=== PATIENT | female | born 1965 | race Caucasian/White ===

== ENCOUNTER → 2016-09-19 | Outpatient (CLI) | payer BC ==
[~2016-09-19] MED LIST: ACHD5005 PO; ACHYD1T PO; ALBU2.5V4 IH; ASP81CT PO; CALC-823 PO; EST.1TD TOP; ESTR0.5T PO; ESTR42.52 VG; GEMF600T3 PO; HYDR-3731 PO; HYDR-3812 PO; HYOS0.1283 SL; IBP800T PO; KETO10TA PO; LEVO100T7 PO; LOPE2CAP PO; LORA0.5T PO; LVT.025T PO; NTR.4SL SL; ONDA4TAB8 PO; PANT40TA2 PO; SERT50TA9 PO; VENL75CA PO
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
== END ==
LOC: RAD 13:00
PROVIDERS: ATTEND Nurse Practitioner Community Health
DX: M54.2 Cervicalgia (principal); M47.812 Spondylosis without myelopathy or radiculopathy, cervical region
CPT/HCPCS: 72141

== ENCOUNTER → 2016-10-14 | Outpatient (CLI) | payer BC ==
--- NOTE | 2016-10-15 13:50 | Diagnostic Imaging Report ---
Bilateral screening mammogram The current study was also evaluated with a Computer Aided Detection (CAD) system. INDICATION: Screening. No current complaints stated on the questionnaire. COMPARISON: 01/25/14. FINDINGS: The breasts are composed of scattered fibroglandular densities. There are occasional benign-appearing calcifications. Bilateral breast nodules with circumscribed margins more numerous in the right breast with stable appearance from prior exams are likely related to intramammary lymph nodes. Allowing for technique and positional differences, no suspicious change is seen. IMPRESSION: No significant change. ACR BI-RADS Category 2: Benign findings. Result letter will be mailed to the patient. Note: At least 10% of breast cancer is not imaged by mammography. Dictated by: Dictated on workstation # [id number]
== END ==
LOC: RAD 14:18
PROVIDERS: ATTEND Obstetrics & Gynecology
DX: Z12.31 Encounter for screening mammogram for malignant neoplasm of breast (principal)
CPT/HCPCS: 77067

== ENCOUNTER 2017-02-17 20:24 | Emergency (ER) | payer BC ==
[~2017-02-17] VITALS: Ht 160 cm; Wt 67.1 kg
--- OUTSIDE RECORDS SUMMARY | 2017-02-17 20:30 | XMS REPORT ---
Author Author CEDRICK BARCENAS [facility] eClinicalWorks Address Unknown Phone Unavailable Care Team Providers Care Certified Physician'S Assistant Name Role Phone CEDRICK BARCENAS CP Unavailable Allergies No Known Allergies Problems Problem Type Condition Code Onset Dates Condition Status Assessment Chronic pain syndrome G89.4 Active Problem Fall from other slipping, tripping, or stumbling E885.9 Active Problem Head injury, unspecified 959.01 Active Problem Injury, other and unspecified, other specified sites, including multiple 959.8 Active Problem Other specified cardiac dysrhythmias 427.89 Active Problem Injury, other and unspecified, shoulder and upper arm 959.2 Active Problem Elevated blood pressure reading without diagnosis of hypertension 796.[address] of occurrence, public building E849.6 Active Problem Other abnormal glucose 790.29 Active Problem Migraine, unspecified without mention of intractable migraine without mention of status migrainosus 346.90 Active Problem Unspecified myalgia and myositis 729.1 Active Problem Depression, unspecified depression type F32.9 Active Problem Chronic pain syndrome G89.4 Active Problem Family history of diabetes mellitus V18.0 Active Problem Unspecified hypothyroidism 244.9 Active Problem Hypothyroidism, unspecified E03.9 Active Problem Tension headache 307.81 Active Problem Pain in joint, ankle and foot 719.47 Active Problem Personal history of tobacco use, presenting hazards to health V15.82 Active Problem jail 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.891 Active Problem Hypoxemia 799.02 Active Problem Palpitations 785.1 Active Problem Chest pain, unspecified 786.50 Active Problem Acute gastritis without mention of hemorrhage 535.00 Active Problem Foot and toe(s), superficial foreign body (splinter), without major open wound and without mention of infection 917.6 Active Problem Acute pharyngitis 462 Active Problem Leukocytosis, unspecified 288.60 Active Problem Pneumonia, organism unspecified 486 Active Problem Generalized hyperhidrosis 780.8 Active Medications Medication Code System Code Instructions Start Date End Date Status Dosage Hydrocodone-Acetaminophen NDC [address]-67 10-325 MG Orally 3 times a day August 03, 2014 1 tablet as needed Results No Known Results Summary Purpose eClinicalWorks Submission
--- OUTSIDE RECORDS SUMMARY | 2017-02-17 20:30 | XMS REPORT ---
Author MARBIN Snow [facility] eClinicalWorks Address Unknown Phone Unavailable Care Team Providers Care Machine Cloth Trimmer Name Role Phone MARBIN CARY CP Unavailable Allergies No Known Allergies Problems Problem Type Condition Code Onset Dates Condition Status Problem Acute pharyngitis 462 Active Problem Other specified cardiac dysrhythmias 427.89 Active Problem Leukocytosis, unspecified 288.60 Active Problem Pain in joint, ankle and foot 719.47 Active Problem Injury, other and unspecified, shoulder and upper arm 959.2 Active Problem Personal history of tobacco use, presenting hazards to health V15.82 Active Problem Injury, other and unspecified, other specified sites, including multiple 959.8 Active Problem Head injury, unspecified 959.01 Active Problem Hypoxemia 799.02 Active Problem Other abnormal glucose 790.29 Active Problem Elevated blood pressure reading without diagnosis of hypertension 796.2 Active Problem Migraine, unspecified without mention of intractable migraine without mention of status migrainosus 346.90 Active Problem Unspecified myalgia and myositis 729.1 Active Problem Unspecified hypothyroidism 244.9 Active Problem Family history of diabetes mellitus V18.[address] of occurrence, public building E849.6 Active Problem Tension headache 307.81 Active Problem Palpitations 785.1 Active Problem Chest pain, unspecified 786.50 Active Problem Acute gastritis without mention of hemorrhage 535.00 Active Problem Pneumonia, organism unspecified 486 Active Problem Fall from other slipping, tripping, or stumbling E885.9 Active Problem Foot and toe(s), superficial foreign body (splinter), without major open wound and without mention of infection 917.6 Active Problem Generalized hyperhidrosis 780.8 Active Medications No Known Medications Results No Known Results Summary Purpose eClinicalWorks Submission
--- OUTSIDE RECORDS SUMMARY | 2017-02-17 20:30 | XMS REPORT ---
Author Author CEDRICK BARCENAS [facility] eClinicalWorks Address Unknown Phone Unavailable Care Team Providers Care Motor Racer Name Role Phone CEDRICK BARCENAS CP Unavailable Allergies, Adverse Reactions, Alerts Substance Reaction Event Type Glucophage 1,000 Mg Tablet making pt feel funny Non Drug Allergy Problems Problem Type Condition Code Onset Dates Condition Status Problem Pneumonia, organism unspecified 486 Active Assessment Pneumonia, organism unspecified, unspecified laterality, unspecified part of lung J18.9 Active Problem Generalized hyperhidrosis 780.8 Active Problem Fall from other slipping, tripping, or stumbling E885.9 Active Problem Acute pharyngitis 462 Active Problem Other specified cardiac dysrhythmias 427.89 Active Problem Leukocytosis, unspecified 288.60 Active Problem Pain in joint, ankle and foot 719.47 Active Problem Personal history of tobacco use, presenting hazards to health V15.82 Active Problem Injury, other and unspecified, shoulder and upper arm 959.2 Active Problem Injury, other and unspecified, other specified sites, including multiple 959.8 Active Problem Hypoxemia 799.02 Active Problem Head injury, unspecified 959.01 Active Problem Other abnormal glucose 790.29 Active [...] and without mention of infection 917.6 Active Medications Medication Code System Code Instructions Start Date End Date Status Dosage Promethazine-Codeine [facility] [address]-47 6.25-10 MG/5ML Orally every 6 hrs for cough May 03, 2015 5 - 10 ml as needed Effexor XR [facility] 73402547423 75 MG Orally Once a day 1 capsule with food PredniSONE [facility] [address]-27 20 MG Orally Once a day May 09, 2015 May 14, 2015 1 Oxygen ND 0 not defined Albuterol Sulfate [facility] [address]-91 (2.5 MG/3ML) 0.083% Inhalation 4 times a day May 03, 2015 3 ml Levaquin [facility] [address]-55 750 MG Orally Once a day May 03, 2015 May 13, 2015 1 tablet Hydrocodone-Acetaminophen [facility] [address]-38 10-325 MG August 03, 2014 1 tablet by Oral route every 8 hours PRN Levothyroxine Sodium [facility] [address]-48 100 MCG Orally Once a day December 11, 2014 1 tablet Procedures Procedure Coding System Code Date Office Visit, Est Pt., Level 3 CPT-4 02583 May 09, 2015 CHEST X-RAY CPT-4 32004 May 09, 2015 MEASURE BLOOD OXYGEN LEVEL CPT-4 11753 May 09, 2015 Vital Signs Date/Time: May 09, 2015 Temperature 98.1 F Weight 163.7 lbs Height 63 in Oximetry 90 % Blood Pressure Diastolic 82 mmHg Blood Pressure Systolic 122 mmHg Cardiac Monitoring Heart Rate 92 bpm BMI 28.99 Index Results No Known Results Summary Purpose eClinicalWorks Submission
--- OUTSIDE RECORDS SUMMARY | 2017-02-17 20:30 | XMS REPORT ---
Author Author CEDRICK BARCENAS Organization eClinicalWorks Address Unknown Phone Unavailable Care Team Providers Care Hydrometer Finisher Name Role Phone CEDRICK BARCENAS CP Unavailable [...]
--- OUTSIDE RECORDS SUMMARY | 2017-02-17 20:30 | XMS REPORT ---
Author Author CEDRICK BARCENAS [facility] eClinicalWorks Address Unknown Phone Unavailable Care Team Providers Care Behavioral Services Tech Name Role Phone CEDRICK BARCENAS CP Unavailable [...] presenting hazards to health V15.82 Active Problem long-term 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.891 Active [...] Date End Date Status Dosage Hydrocodone-Acetaminophen NDC [address]-62 10-325 MG Orally 3 times a day August 03, 2014 1 tablet as needed Results No Known Results Summary Purpose eClinicalWorks Submission
--- OUTSIDE RECORDS SUMMARY | 2017-02-17 20:30 | XMS REPORT ---
Author Author CEDRICK BARCENAS [facility] eClinicalWorks Address Unknown Phone Unavailable Care Team Providers Care Game Artist Name Role Phone CEDRICK BARCENAS CP Unavailable Allergies, Adverse Reactions, Alerts Substance Reaction Event Type Glucophage 1,000 Mg Tablet making pt feel funny Non Drug Allergy Problems Problem Type Condition Code Onset Dates Condition Status Assessment Trigger point M79.2 Active Problem Fall from other slipping, tripping, or stumbling E885.9 Active Problem Acute pharyngitis 462 Active Problem Head injury, unspecified 959.01 Active Problem Leukocytosis, unspecified 288.60 Active Problem Injury, other and unspecified, other specified sites, including multiple 959.8 Active Problem Other specified cardiac dysrhythmias 427.89 Active Problem Other abnormal glucose 790.29 Active Problem Elevated blood pressure reading without diagnosis of hypertension 796.2 Active Problem intermediate project manager 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.891 Active Problem Hypoxemia 799.02 Active Problem Tension headache 307.[address] of occurrence, public building E849.6 Active Problem Chronic pain syndrome G89.4 Active Problem Injury, other and unspecified, shoulder and upper arm 959.2 Active Problem Migraine, unspecified without mention of intractable migraine without mention of status migrainosus 346.90 Active Problem Unspecified myalgia and myositis 729.1 Active Problem Pain in joint, ankle and foot 719.47 Active Problem Personal history of tobacco use, presenting hazards to health V15.82 Active Problem Acute gastritis without mention of hemorrhage 535.00 Active Problem Foot and toe(s), superficial foreign body (splinter), without major open wound and without mention of infection 917.6 Active Problem Unspecified hypothyroidism 244.9 Active Problem Family history of diabetes mellitus V18.0 Active Problem Pneumonia, organism unspecified 486 Active Problem Generalized hyperhidrosis 780.8 Active Problem Palpitations 785.1 Active Problem Chest pain, unspecified 786.50 Active Medications Medication Code System Code Instructions Start Date End Date Status Dosage Cyclobenzaprine HCl NDC [address]-34 10 mg Orally at hs X 1 week then 2 at hs X 1 week then 3 tabs at hs September 17, 2015 1 tablet Effexor XR [facility] 06941617954 75 MG Orally Once a day 1 capsule with food Oxygen NDC 0 not defined Levothyroxine Sodium [facility] 07399398783 100 MCG Orally Once a day 1 tablet Albuterol Sulfate [facility] [address]-61 (2.5 MG/3ML) 0.083% Inhalation 4 times a day May 03, 2015 3 ml Hydrocodone-Acetaminophen [facility] [address]-88 10-325 MG Orally 3 times a day August 03, 2014 1 tablet as needed Procedures Procedure Coding System Code Date Office Visit, Est Pt., Level 3 CPT-4 47721 September 17, 2015 Vital Signs Date/Time: September 17, 2015 Temperature 98.1 F Weight 164.2 lbs Height 63 in BMI 29.08 Index Blood Pressure Diastolic 86 mmHg Blood Pressure Systolic 142 mmHg Cardiac Monitoring Heart Rate 72 bpm Results No Known Results Summary Purpose eClinicalWorks Submission
--- OUTSIDE RECORDS SUMMARY | 2017-02-17 20:31 | XMS REPORT ---
Author Author CEDRICK BARCENAS Organization eClinicalWorks Address Unknown Phone Unavailable Care Team Providers Care Jig Filler Name Role Phone CEDRICK BARCENAS CP Unavailable [...] Instructions Start Date End Date Status Dosage Levothyroxine Sodium [facility] [address]-59 100 MCG Orally Once a day December 11, 2014 1 tablet Results No Known Results Summary Purpose eClinicalWorks Submission
--- OUTSIDE RECORDS SUMMARY | 2017-02-17 20:31 | XMS REPORT ---
Author Author CEDRICK BARCENAS [facility] Address [address] [place] [address] Care Team Providers Care Special Service Representative Name Role Phone CEDRICK BARCENAS Unavailable PROBLEMS Type Condition ICD9-CM Code [id number] Code Onset Dates Condition Status SNOMED Code Problem Anxiety F41.9 Active 67096182 Problem Mixed hyperlipidemia E78.2 Active 065097665 Problem Chronic pain syndrome G89.4 Active 471464019 Problem correction 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.891 Active 902821079 Problem Hypothyroidism, unspecified E03.9 Active 19429465 Problem Depression, unspecified depression type F32.9 Active 37604970 ALLERGIES Unknown Allergies SOCIAL HISTORY No smoking Hx information available PLAN OF CARE VITAL SIGNS MEDICATIONS Unknown Medications RESULTS No Results PROCEDURES No Known procedures IMMUNIZATIONS No Known Immunizations
--- OUTSIDE RECORDS SUMMARY | 2017-02-17 20:31 | XMS REPORT ---
Author EDUARDO Mckeon [facility] eClinicalWorks Address Unknown Phone Unavailable Care Team Providers Care Public Health Advisor Name Role Phone EDUARDO CAMPOS CP Unavailable Allergies No Known Allergies Problems Problem Type Condition Code Onset Dates Condition Status Problem Fall from other slipping, tripping, or [...] presenting hazards to health V15.82 Active Problem intermediate accountant 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.891 Active [...] Start Date End Date Status Dosage Hydrocodone-Acetaminophen [facility] [address]-36 10-325 MG Orally 3 times a day August 03, 2014 1 tablet as needed Results No Known Results Summary Purpose eClinicalWorks Submission
--- OUTSIDE RECORDS SUMMARY | 2017-02-17 20:31 | XMS REPORT ---
Author Author CEDRICK BARCENAS Organization eClinicalWorks Address Unknown Phone Unavailable Care Team Providers Care Transit Mixer Driver Name Role Phone CEDRICK BARCENAS CP Unavailable [...] Start Date End Date Status Dosage Hydrocodone-Acetaminophen [facility] [address]-35 10-325 MG August 03, 2014 1 tablet by Oral route every 8 hours PRN Results No Known Results Summary Purpose eClinicalWorks Submission
--- OUTSIDE RECORDS SUMMARY | 2017-02-17 20:31 | XMS REPORT ---
Author Author CEDRICK BARCENAS [facility] Address [address] [place] [address] Care Team Providers Care Relief Captain Name Role Phone CEDRICK BARCENAS Unavailable PROBLEMS Type Condition ICD9-CM Code [id number] Code Onset Dates Condition Status SNOMED Code Problem Anxiety F41.9 Active 60172486 Problem Mixed hyperlipidemia E78.2 Active 696611106 Problem Chronic pain syndrome G89.4 Active 958823301 Problem skilled nursing 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.891 Active 166670137 Problem Hypothyroidism, unspecified E03.9 Active 71206771 Problem Depression, unspecified depression type F32.9 Active 88575350 ALLERGIES No Known Allergies SOCIAL HISTORY No smoking Hx information available PLAN OF CARE VITAL SIGNS MEDICATIONS Medication Instructions Dosage Frequency Start Date End Date Duration Status Hydrocodone-Acetaminophen 10-325 MG Orally 3 times a day 1 tablet as needed 8h Jun, 28 days Active RESULTS No Results PROCEDURES No Known procedures IMMUNIZATIONS No Known Immunizations
--- OUTSIDE RECORDS SUMMARY | 2017-02-17 20:31 | XMS REPORT ---
Author Author CEDRICK BARCENAS [facility] eClinicalWorks Address Unknown Phone Unavailable Care Team Providers Care Head End Desizing Machine Operator Name Role Phone CEDRICK BARCENAS CP Unavailable [...] presenting hazards to health V15.82 Active Problem long term care administrator 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.891 Active [...] Instructions Start Date End Date Status Dosage Effexor XR [facility] 21181310094 75 MG Orally Once a day 1 capsule with food Results No Known Results Summary Purpose eClinicalWorks Submission
--- OUTSIDE RECORDS SUMMARY | 2017-02-17 20:31 | XMS REPORT ---
Author Author CEDRICK BARCENAS [facility] eClinicalWorks Address Unknown Phone Unavailable Care Team Providers Care Process Trainer Name Role Phone CEDRICK BARCENAS CP Unavailable Allergies, Adverse Reactions, Alerts Substance Reaction Event Type Glucophage 1,000 Mg Tablet making pt feel funny Non Drug Allergy Problems Problem Type Condition Code Onset Dates Condition Status Problem Pneumonia, organism unspecified 486 Active Assessment Epigastric pain R10.13 Active Problem Generalized hyperhidrosis 780.8 Active Problem [...] Instructions Start Date End Date Status Dosage Oxygen NDC 0 not defined Hydrocodone-Acetaminophen NDC [address]-02 10-325 MG August 03, 2014 1 tablet by Oral route every 8 hours PRN Effexor XR [facility] 48454931185 75 MG Orally Once a day 1 capsule with food Levothyroxine Sodium [facility] [address]-66 100 MCG Orally Once a day December 11, 2014 1 tablet Procedures Procedure Coding System Code Date Office Visit, Est Pt., Level 3 CPT-4 52766 Apr 11, 2015 Vital Signs Date/Time: Apr 11, 2015 Temperature 97.7 F Weight 165.6 lbs Height 63 in BMI 29.33 Index Blood Pressure Diastolic 68 mmHg Blood Pressure Systolic 136 mmHg Cardiac Monitoring Heart Rate 84 bpm Results Name Result Date Reference Range Unit Abnormality Flag HIDA Scan Summary Purpose eClinicalWorks Submission
--- OUTSIDE RECORDS SUMMARY | 2017-02-17 20:31 | XMS REPORT ---
Author Author CEDRICK BARCENAS Organization eClinicalWorks Address Unknown Phone Unavailable Care Team Providers Care Analytical Laboratory Technician Name Role Phone CEDRICK BARCENAS CP Unavailable Allergies No Known Allergies Problems Problem Type Condition ICD-9 Code Onset Dates Condition Status Problem Acute [...] Start Date End Date Status Dosage Hydrocodone-Acetaminophen [facility] [address]-00 10-325 MG August 03, 2014 1 tablet by Oral route every 8 hours PRN Results No Known Results Summary Purpose eClinicalWorks Submission
--- OUTSIDE RECORDS SUMMARY | 2017-02-17 20:31 | XMS REPORT ---
Author Author CEDRICK BARCENAS Organization eClinicalWorks Address Unknown Phone Unavailable Care Team Providers Care Seismic Prospecting Supervisor Name Role Phone CEDRICK BARCENAS CP Unavailable [...]
--- OUTSIDE RECORDS SUMMARY | 2017-02-17 20:31 | XMS REPORT ---
Author Author CEDRICK BARCENAS [facility] Address [address] [place] [address] Care Team Providers Care Icing Machine Operator Name Role Phone CEDRICK BARCENAS Unavailable PROBLEMS Type Condition ICD9-CM Code MUX92-LV Code Onset Dates Condition Status SNOMED Code Assessment Encounter for immunization Z23 May, Active 493051969 Assessment Hypothyroidism, unspecified E03.9 May, Active 12353160 Assessment Hyperglycemia R73.9 May, Active 80354464 Problem Fall from other slipping, tripping, or stumbling E885.9 Active 726219311 Problem Head injury, unspecified 959.01 Active 19224409 Problem Injury, other and unspecified, other specified sites, including multiple 959.8 Active Problem Injury, other and unspecified, shoulder and upper arm 959.[address] of occurrence, public building E849.6 Active Problem Other abnormal glucose 790.29 Active 293763824 Problem Tension headache 307.81 Active 265707697 Problem Unspecified myalgia and myositis 729.1 Active 459018708 Problem Unspecified hypothyroidism 244.9 Active 72044266 Problem Migraine, unspecified without mention of intractable migraine without mention of status migrainosus 346.90 Active 95765020 Problem Pain in joint, ankle and foot 719.47 Active 417969414 Problem Personal history of tobacco use, presenting hazards to health V15.82 Active 0572843042208 Problem Mixed hyperlipidemia E78.2 Active 740507468 Problem Hypothyroidism, unspecified E03.9 Active 09544927 Problem Foot and toe(s), superficial foreign body (splinter), without major open wound and without mention of infection 917.6 Active 00402599 Problem Acute gastritis without mention of hemorrhage 535.00 Active 64817367 Problem Family history of diabetes mellitus V18.0 Active 818110735 Problem correction 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.891 Active 026088102 Problem Hypoxemia 799.02 Active 347163848 Problem Depression, unspecified depression type F32.9 Active 06931517 Problem Chronic pain syndrome G89.4 Active 925645589 Problem Pneumonia, organism unspecified 486 Active 147682548 Problem Generalized hyperhidrosis 780.8 Active 784328893 Problem Palpitations 785.1 Active 11993990 Problem Chest pain, unspecified 786.50 Active 74730334 Problem Other specified cardiac dysrhythmias 427.89 Active 865914604 Problem Elevated blood pressure reading without diagnosis of hypertension 796.2 Active 786103476 Problem Acute pharyngitis 462 Active 939490963 Problem Leukocytosis, unspecified 288.60 Active 436996872 ALLERGIES Substance Reaction Event Type Date Status Glucophage 1,000 Mg Tablet making pt feel funny Non Drug Allergy May, Active SOCIAL HISTORY No smoking Hx information available PLAN OF CARE Activity Details Pending Test TSH 3 Months,Reason: VITAL SIGNS Height 63 in 2016-05-01 Weight 149.8 lbs 2016-05-01 Heart Rate 76 bpm 2016-05-01 Respiratory Rate 20 2016-05-01 BMI 26.53 kg/m2 2016-05-01 Blood pressure systolic 120 mmHg 2016-05-01 Blood pressure diastolic 86 mmHg 2016-05-01 MEDICATIONS Medication Instructions Dosage Frequency Start Date End Date Duration Status Cyclobenzaprine HCl 10 mg Orally Once a day 3 tablets at bedtime 24h Aug 30 days Active Hydrocodone-Acetaminophen 10-325 MG Orally 3 times a day 1 tablet as needed 8h Jul, 28 days Active Oxygen Active Simvastatin 40 mg Orally Once a day 1 tablet in the evening 24h May, Active Effexor XR 75 MG Orally Once a day 1 capsule with food 24h 90 days Active Levothyroxine Sodium 100 MCG Orally Once a day 1 tablet 24h 30 days Active Albuterol Sulfate (2.5 MG/3ML) 0.083% Inhalation 4 times a day 3 ml 6h May, 30 days Active RESULTS Name Result Date Reference Range A1C (IN HOUSE) A1C IN HOUSE 5.8 4.3 - 5.6 % Previous A1c 6.1 Lot 0642 Exp date 01/2018 PROCEDURES Procedure Date Ordered Related Diagnosis Body Site ASSAY THYROID STIM HORMONE May 01, 2016 GLYCATED HEMOGLOBIN TEST May 01, 2016 SINGLE IMMUNIZATION ADMIN May 01, 2016 FLUARIX QUAD P-FREE 3 AND UP .50 2015May 01, 2016 Office Visit, Est Pt., Level 3 May 01, 2016 IMMUNIZATIONS Vaccine Route Administration Date Status FLUARIX QUAD P-FREE 3 AND UP .50 2015 IM Intramuscular May 01, 2016 Administered
--- OUTSIDE RECORDS SUMMARY | 2017-02-17 20:32 | XMS REPORT ---
Author Author CEDRICK BARCENAS Organization [facility] Address [address] [place] [address] Care Team Providers Care Scallop Cutter Name Role Phone CEDRICK BARCENAS Unavailable PROBLEMS Type Condition ICD9-CM Code APO99-ID Code Onset Dates Condition Status SNOMED Code Problem Fall from other slipping, tripping, or stumbling E885.9 Active 802459003 Problem Head injury, unspecified 959.01 Active 58225197 Problem Injury, other and unspecified, other specified sites, including multiple 959.8 Active Problem Injury, other and unspecified, shoulder and upper arm 959.2 Active 879294544 Problem Elevated blood pressure reading without diagnosis of hypertension 796.[address] of occurrence, public building E849.6 Active Problem Other abnormal glucose 790.29 Active 753978843 Problem Tension headache 307.81 Active 182248047 Problem Unspecified myalgia and myositis 729.1 Active 584122935 Problem Personal history of tobacco use, presenting hazards to health V15.82 Active 0131462630008 Problem Migraine, unspecified without mention of intractable migraine without mention of status migrainosus 346.90 Active 41464195 Problem Hypothyroidism, unspecified E03.9 Active 85398546 Problem Depression, unspecified depression type F32.9 Active 12312229 Problem Acute gastritis without mention of hemorrhage 535.00 Active 78653297 Problem Family history of diabetes mellitus V18.0 Active 729643646 Problem Unspecified hypothyroidism 244.9 Active 38438510 Problem Hypoxemia 799.02 Active 777645040 Problem Pain in joint, ankle and foot 719.47 Active 337817581 Problem Chronic pain syndrome G89.4 Active 731624353 Problem [facility] 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.891 Active 632925681 Problem Chest pain, unspecified 786.50 Active 93115988 Problem Pneumonia, organism unspecified 486 Active 232498914 Problem Foot and toe(s), superficial foreign body (splinter), without major open wound and without mention of infection 917.6 Active 14871964 Problem Palpitations 785.1 Active 55761670 Problem Leukocytosis, unspecified 288.60 Active 351645871 Problem Other specified cardiac dysrhythmias 427.89 Active 992860040 Problem Generalized hyperhidrosis 780.8 Active 640246392 Problem Acute pharyngitis 462 Active 791698745 ALLERGIES Unknown Allergies SOCIAL HISTORY No smoking Hx information available PLAN OF CARE VITAL SIGNS MEDICATIONS Medication Instructions Dosage Frequency Start Date End Date Duration Status Hydrocodone-Acetaminophen 10-325 MG Orally 3 times a day 1 tablet as needed 8h Jul, 28 days Active RESULTS No Results PROCEDURES No Known procedures IMMUNIZATIONS No Known Immunizations
--- OUTSIDE RECORDS SUMMARY | 2017-02-17 20:32 | XMS REPORT ---
Author Author CEDRICK BARCENAS [facility] eClinicalWorks Address Unknown Phone Unavailable Care Team Providers Care Senior Clinical Research Scientist Name Role Phone CEDRICK BARCENAS CP Unavailable [...] Date End Date Status Dosage Levothyroxine Sodium [facility] [address]-57 100 MCG Orally Once a day December 11, 2014 1 tablet Effexor XR [facility] [address]-09 75 MG Orally Once a day December 11, 2014 1 capsule with food Results No Known Results Summary Purpose eClinicalWorks Submission
--- OUTSIDE RECORDS SUMMARY | 2017-02-17 20:32 | XMS REPORT ---
Author Author CEDRICK BARCENAS Organization [employer] Address Unknown Phone Unavailable Care Team Providers Care Label Tacker Name Role Phone CEDRICK BARCENAS CP Unavailable [...] Date End Date Status Dosage Hydrocodone-Acetaminophen [facility] [address]-45 10-325 MG August 03, 2014 1 tablet by Oral route every 8 hours PRN Results No Known Results Summary Purpose eClinicalWorks Submission
--- OUTSIDE RECORDS SUMMARY | 2017-02-17 20:32 | XMS REPORT ---
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 Active 563550153 Problem Hypothyroidism, unspecified E03.9 Active 87880525 Problem Depression, unspecified depression type F32.9 Active 27074429 ALLERGIES Substance Reaction Event Type Date Status Glucophage 1,000 Mg Tablet making pt feel funny Non Drug Allergy Jun, Active SOCIAL HISTORY No smoking Hx information available PLAN OF CARE Activity Details Follow Up 2 Weeks Reason: VITAL SIGNS Height 63 in 2016-06-30 Weight 152.5 lbs 2016-06-30 Temperature 97.9 degrees Fahrenheit 2016-06-30 Heart Rate 68 bpm 2016-06-30 Respiratory Rate 18 2016-06-30 BMI 27.01 kg/m2 2016-06-30 Blood pressure systolic 135 mmHg 2016-06-30 Blood pressure diastolic 89 mmHg 2016-06-30 MEDICATIONS Medication Instructions Dosage Frequency Start Date End Date Duration Status Simvastatin 40 mg Orally Once a day 1 tablet in the evening 24h May, Active Effexor XR 75 MG Orally Once a day 1 capsule with food 24h 90 days Active Oxygen Active Levothyroxine Sodium 100 MCG Orally Once a day 1 tablet 24h 90 days Active Baclofen 20 mg Orally every 8 hrs 1 tablet with food or milk 8h Jun, Jul, 10 days Active Percocet 10-325 MG Orally every 6 hrs 1 tablet as needed 6h Jun, Jul, 10 days Active Albuterol Sulfate (2.5 MG/3ML) 0.083% Inhalation 4 times a day 3 ml 6h May, 30 days Active Clobetasol Propionate 0.05 % Externally Twice a day as needed; do not use longer than 2weeks at a time 1 application to affected area Oct, Active RESULTS No Results PROCEDURES Procedure Date Ordered Related Diagnosis Body Site Office Visit, Est Pt., Level 4 Jun 30, 2016 IMMUNIZATIONS No Known Immunizations
--- OUTSIDE RECORDS SUMMARY | 2017-02-17 20:32 | XMS REPORT ---
Author Author CEDRICK BARCENAS [facility] Address [address] [place] [address] Care Team Providers Care Incendiary Powder Mixer Name Role Phone CEDRICK BARCENAS Unavailable PROBLEMS Type Condition ICD9-CM Code OML87-WD Code Onset Dates Condition Status SNOMED Code Problem Anxiety F41.9 Active 84130408 Problem Mixed hyperlipidemia E78.2 Active 233823018 Problem Chronic pain syndrome G89.4 Active 249907426 Problem skilled nursing 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.891 Active 952363346 Problem Hypothyroidism, unspecified E03.9 Active 12175180 Problem Depression, unspecified depression type F32.9 Active 27154984 ALLERGIES Substance Reaction Event Type Date Status Glucophage 1,000 Mg Tablet making pt feel funny Non Drug Allergy Jun, Active SOCIAL HISTORY No smoking Hx information available PLAN OF CARE Activity Details Follow Up 1 Week Reason:back pain VITAL SIGNS Height 63 in 2016-06-24 Weight 152.5 lbs 2016-06-24 Temperature 97.9 degrees Fahrenheit 2016-06-24 Heart Rate 88 bpm 2016-06-24 Respiratory Rate 20 2016-06-24 BMI 27.01 kg/m2 2016-06-24 Blood pressure systolic 134 mmHg 2016-06-24 Blood pressure diastolic 90 mmHg 2016-06-24 MEDICATIONS Medication Instructions Dosage Frequency Start Date End Date Duration Status Baclofen 20 mg Orally every 8 hrs 1 tablet with food or milk 8h Jun, Jul, 10 days Active Percocet 10-325 MG Orally every 6 hrs 1 tablet as needed 6h Jun, Jul, 10 days Active Clobetasol Propionate 0.05 % Externally Twice a day as needed; do not use longer than 2weeks at a time 1 application to affected area Oct, Active Simvastatin 40 mg Orally Once a day 1 tablet in the evening 24h May, Active Levothyroxine Sodium 100 MCG Orally Once a day 1 tablet 24h 90 days Active Albuterol Sulfate (2.5 MG/3ML) 0.083% Inhalation 4 times a day 3 ml 6h May, 30 days Active Oxygen Active Effexor XR 75 MG Orally Once a day 1 capsule with food 24h 90 days Active RESULTS Name Result Date Reference Range Xray : Spine, Lumbar 2-3 views (IN HOUSE) 2016-06-24 Xray : Coccyx 2 veiw (IN HOUSE) 2016-06-24 PROCEDURES Procedure Date Ordered Related Diagnosis Body Site X-RAY EXAM OF TAILBONE Jun 24, 2016 X-RAY EXAM OF LOWER SPINE Jun 24, 2016 Office Visit, Est Pt., Level 3 Jun 24, 2016 IMMUNIZATIONS No Known Immunizations
--- OUTSIDE RECORDS SUMMARY | 2017-02-17 20:32 | XMS REPORT ---
Author Author CEDRICK BARCENAS Organization [employer] Address Unknown Phone Unavailable Care Team Providers Care Forge Shop Machine Repairer Name Role Phone CEDRICK BARCENAS CP Unavailable [...] Start Date End Date Status Dosage Hydrocodone-Acetaminophen [facility] [address]-24 10-325 MG August 03, 2014 1 tablet by Oral route every 8 hours PRN Results No Known Results Summary Purpose eClinicalWorks Submission
--- OUTSIDE RECORDS SUMMARY | 2017-02-17 20:32 | XMS REPORT ---
Author Author CEDRICK BARCENAS [facility] eClinicalWorks Address Unknown Phone Unavailable Care Team Providers Care Automotive Parts Counterperson Name Role Phone CEDRICK BARCENAS CP Unavailable [...] presenting hazards to health V15.82 Active Problem [facility] 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.891 Active [...] hyperhidrosis 780.8 Active Medications No Known Medications Procedures Procedure Coding System Code Date No Charge CPT-4 02668 Apr 10, 2016 Results Name Result Date Reference Range Unit Abnormality Flag [employer] Summary Purpose eClinicalWorks Submission
--- OUTSIDE RECORDS SUMMARY | 2017-02-17 20:32 | XMS REPORT ---
Author Author CEDRICK BARCENAS [facility] eClinicalWorks Address Unknown Phone Unavailable Care Team Providers Care Ornamental Painter Name Role Phone CEDRICK BARCENAS CP Unavailable [...] hazards to health V15.82 Active Problem intermediate 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.891 Active [...] Instructions Start Date End Date Status Dosage Albuterol Sulfate NDC [address]-09 (2.5 MG/3ML) 0.083% Inhalation 4 times a day May 03, 2015 3 ml Clobetasol Propionate [facility] [address]-25 0.05 % Externally Twice a day as needed; do not use longer than 2weeks at a time November 19, 2015 1 application to affected area Cyclobenzaprine HCl [facility] [address]-04 10 mg Orally Once a day September 17, 2015 3 tablets at bedtime Levothyroxine Sodium [facility] [address]-52 100 MCG Orally Once a day 1 tablet Hydrocodone-Acetaminophen [facility] [address]-88 10-325 MG Orally 3 times a day August 03, 2014 1 tablet as needed Oxygen NDC 0 not defined Effexor XR [facility] 96075441399 75 MG Orally Once a day 1 capsule with food Results No Known Results Summary Purpose eClinicalWorks Submission
--- OUTSIDE RECORDS SUMMARY | 2017-02-17 20:32 | XMS REPORT ---
Author Author CEDRICK BARCENAS Organization [employer] Address Unknown Phone Unavailable Care Team Providers Care Pillow Filler Name Role Phone CEDRICK BARCENAS CP [...] Start Date End Date Status Dosage Hydrocodone-Acetaminophen [facility] [address]-75 10-325 MG August 03, 2014 1 tablet by Oral route every 8 hours PRN Results No Known Results Summary Purpose eClinicalWorks Submission
--- OUTSIDE RECORDS SUMMARY | 2017-02-17 20:32 | XMS REPORT ---
Author Author CEDRICK BARCENAS [facility] eClinicalWorks Address Unknown Phone Unavailable Care Team Providers Care Ballet Master/Mistress Name Role Phone CEDRICK BARCENAS CP Unavailable [...] Oxygen NDC 0 not defined Hydrocodone-Acetaminophen NDC [address]-32 10-325 MG August 03, 2014 1 tablet by Oral route every 8 hours PRN Levaquin [facility] [address]-73 750 MG Orally Once a day May 03, 2015 May 13, 2015 1 tablet Promethazine-Codeine [facility] [address]-57 6.25-10 MG/5ML Orally every 6 hrs for cough May 03, 2015 5 - 10 ml as needed Albuterol Sulfate [facility] [address]-73 (2.5 MG/3ML) 0.083% Inhalation 4 times a day May 03, 2015 3 ml Levothyroxine Sodium [facility] [address]-01 100 MCG Orally Once a day December 11, 2014 1 tablet Effexor XR [facility] 71327897162 75 MG Orally Once a day 1 capsule with food Procedures Procedure Coding System Code Date Office Visit, Est Pt., Level 3 CPT-4 74253 May 03, 2015 NEB/MDI RX INITIAL CPT-4 22308 May 03, 2015 MEASURE BLOOD OXYGEN LEVEL CPT-4 04088 May 03, 2015 Vital Signs Date/Time: May 03, 2015 Temperature 97.5 F Weight 166 lbs Height 63 in Oximetry 89 % Blood Pressure Diastolic 62 mmHg Blood Pressure Systolic 120 mmHg Cardiac Monitoring Heart Rate 88 bpm BMI 29.40 Index Results Name Result Date Reference Range Unit Abnormality Flag NEBULIZER TREATMENT Summary Purpose eClinicalWorks Submission
--- OUTSIDE RECORDS SUMMARY | 2017-02-17 20:32 | XMS REPORT ---
Author ELISHA Yang [facility] eClinicalWorks Address Unknown Phone Unavailable Care Team Providers Care Pilot Plant Research Technician Name Role Phone ELISHA ANNE CP Unavailable Allergies, Adverse Reactions, Alerts Substance Reaction Event Type Glucophage 1,000 Mg Tablet making pt feel funny Non Drug Allergy Problems Problem Type Condition Code Onset Dates Condition Status Assessment Contact dermatitis and eczema due to detergents L24.0 Active Problem Pneumonia, organism unspecified 486 Active Assessment Tinea pedis B35.3 Active Problem Generalized hyperhidrosis 780.8 Active Problem [...] End Date Status Dosage Levothyroxine Sodium [facility] [address]-95 100 MCG Orally Once a day December 11, 2014 1 tablet Hydrocodone-Acetaminophen [facility] [address]-94 10-325 MG August 03, 2014 1 tablet by Oral route every 8 hours PRN Oxygen NDC 0 not defined Effexor XR [facility] 22540829512 75 MG Orally Once a day 1 capsule with food Calcium Carbonate [facility] [address]-82 1250 MG Orally Once a day December 29, 2014 Mar 29, 2015 1 tablet after meals Procedures Procedure Coding System Code Date Office Visit, Est Pt., Level 3 CPT-4 61851 Mar 21, 2015 Vital Signs Date/Time: Mar 21, 2015 Temperature 98 F Weight 166.4 lbs Height 63 in BMI 29.47 Index Blood Pressure Diastolic 68 mmHg Blood Pressure Systolic 120 mmHg Cardiac Monitoring Heart Rate 76 bpm Results No Known Results Summary Purpose eClinicalWorks Submission
--- OUTSIDE RECORDS SUMMARY | 2017-02-17 20:33 | XMS REPORT ---
Author Author CEDRICK BACRENAS Organization [employer] Address Unknown Phone Unavailable Care Team Providers Care Professor Of Food Biochemistry Name Role Phone CEDRICK BARCENAS CP Unavailable [...]
--- OUTSIDE RECORDS SUMMARY | 2017-02-17 20:33 | XMS REPORT ---
Author Author CEDRICK BARCENAS Organization [facility] Address [address] [place] [address] Care Team Providers Care Inspector Automatic Typewriter Name Role Phone CEDRICK BARCENAS Unavailable PROBLEMS Type Condition ICD9-CM Code DCL14-UE Code Onset Dates Condition Status SNOMED Code Assessment Fatigue 780.79 Apr, Active 21527491 Problem Fall from other slipping, tripping, or stumbling E885.9 Active 456777355 Problem Head injury, unspecified 959.01 Active 12035408 Problem Injury, other and unspecified, other specified sites, including multiple 959.8 Active Problem Injury, other and unspecified, shoulder and upper arm 959.2 Active 388626781 Problem Elevated blood pressure reading without diagnosis of hypertension 796.[address] of occurrence, public building E849.6 Active Problem Other abnormal glucose 790.29 Active 162162602 Problem Tension headache 307.81 Active 403157374 Problem Unspecified myalgia and myositis 729.1 Active 626776129 Problem Personal history of tobacco use, presenting hazards to health V15.82 Active 1899849793048 Problem Migraine, unspecified without mention of intractable migraine without mention of status migrainosus 346.90 Active 98599244 Problem Hypothyroidism, unspecified E03.9 Active 67041439 Problem Depression, unspecified depression type F32.9 Active 49945368 Problem Acute gastritis without mention of hemorrhage 535.00 Active 29890241 Problem Family history of diabetes mellitus V18.0 Active 249508366 Problem Unspecified hypothyroidism 244.9 Active 25289377 Problem Hypoxemia 799.02 Active 973868484 Problem Pain in joint, ankle and foot 719.47 Active 847231131 Problem Chronic pain syndrome G89.4 Active 879186945 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.891 Active 290087529 Problem Chest pain, unspecified 786.50 Active 78646049 Problem Pneumonia, organism unspecified 486 Active 502449165 Problem Foot and toe(s), superficial foreign body (splinter), without major open wound and without mention of infection 917.6 Active 23942707 Problem Palpitations 785.1 Active 57340156 Problem Leukocytosis, unspecified 288.60 Active 492415700 Problem Other specified cardiac dysrhythmias 427.89 Active 079923749 Problem Generalized hyperhidrosis 780.8 Active 317619083 Problem Acute pharyngitis 462 Active 811647907 ALLERGIES Unknown Allergies SOCIAL HISTORY No smoking Hx information available PLAN OF CARE VITAL SIGNS MEDICATIONS Unknown Medications RESULTS Name Result Date Reference Range LIPID PANEL 2016-04-30 Cholesterol, Total 224 100-199 Triglycerides 293 0-149 HDL Cholesterol 33 >39 VLDL Cholesterol Venancio 59 5-40 LDL Cholesterol Calc 132 0-99 Comment: CMP 2016-04-30 Glucose, Serum 127 65-99 BUN 11 6-24 Creatinine, Serum 0.77 0.57-1.00 eGFR If NonAfricn Am 91 >59 eGFR If Africn Am 105 >59 BUN/Creatinine Ratio 14 9-23 Sodium, Serum 144 136-144 Potassium, Serum 4.6 3.5-5.2 Chloride, Serum 102 97-106 Carbon Dioxide, Total 26 18-29 Calcium, Serum 10.0 8.7-10.2 Protein, Total, Serum 7.6 6.0-8.5 Albumin, Serum 4.7 3.5-5.5 Globulin, Total 2.9 1.5-4.5 A/G Ratio 1.6 1.1-2.5 Bilirubin, Total 0.4 0.0-1.2 Alkaline Phosphatase, S 82 39-117 AST (SGOT) 16 0-40 ALT (SGPT) 24 0-32 PROCEDURES Procedure Date Ordered Related Diagnosis Body Site LIPID PANEL Apr 30, 2016 COMPREHEN METABOLIC PANEL Apr 30, 2016 VENIPUNCT, ROUTINE* Apr 30, 2016 IMMUNIZATIONS No Known Immunizations
--- OUTSIDE RECORDS SUMMARY | 2017-02-17 20:33 | XMS REPORT ---
Author Author CEDRICK BARCENAS [facility] Address [address] [place] [address] Care Team Providers Care Director Day Care Center Name Role Phone CEDRICK BARCENAS Unavailable PROBLEMS Type Condition ICD9-CM Code EKH40-AS Code Onset Dates Condition Status SNOMED Code Problem Anxiety F41.9 Active 12778512 Problem Mixed hyperlipidemia E78.2 Active 123499825 Problem Chronic pain syndrome G89.4 Active 382785453 Problem longterm 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.891 Active 767468698 Problem Hypothyroidism, unspecified E03.9 Active 15061847 Problem Depression, unspecified depression type F32.9 Active 40083554 ALLERGIES No Known Allergies SOCIAL HISTORY No smoking Hx information available PLAN OF CARE VITAL SIGNS MEDICATIONS No Known Medications RESULTS No Results PROCEDURES No Known procedures IMMUNIZATIONS No Known Immunizations
--- OUTSIDE RECORDS SUMMARY | 2017-02-17 20:33 | XMS REPORT ---
Author Author TANI SWAIN Organization [employer] Address Unknown Phone Unavailable Care Team Providers Care Sr Account Executive Name Role Phone TANI SWAIN Unavailable Allergies No Known Allergies Problems Problem [...]
--- OUTSIDE RECORDS SUMMARY | 2017-02-17 20:33 | XMS REPORT ---
Author Author CEDRICK BARCENAS Organization [employer] Address Unknown Phone Unavailable Care Team Providers Care Boiler Inspector Name Role Phone CEDRICK BARCENAS CP Unavailable [...] Start Date End Date Status Dosage Hydrocodone-Acetaminophen [facility] [address]-91 10-325 MG August 03, 2014 1 tablet by Oral route every 8 hours PRN Results No Known Results Summary Purpose eClinicalWorks Submission
--- OUTSIDE RECORDS SUMMARY | 2017-02-17 20:33 | XMS REPORT ---
Author Author CEDRICK BARCENAS Organization [employer] Address Unknown Phone Unavailable Care Team Providers Care Director Of Public Safety Name Role Phone CEDRICK BARCENAS CP Unavailable [...] without diagnosis of hypertension 796.2 Active Problem senior living 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.891 Active [...] Start Date End Date Status Dosage Hydrocodone-Acetaminophen [facility] [address]-38 10-325 MG Orally 3 times a day August 03, 2014 1 tablet as needed Results No Known Results Summary Purpose [employer] Submission
--- OUTSIDE RECORDS SUMMARY | 2017-02-17 20:33 | XMS REPORT ---
Author Author CEDRICK BARCENAS Organization [employer] Address Unknown Phone Unavailable Care Team Providers Care Heavy Equipment Supervisor Name Role Phone CEDRICK BARCENAS CP [...] Start Date End Date Status Dosage Hydrocodone-Acetaminophen [facility] [address]-31 10-325 MG August 03, 2014 1 tablet by Oral route every 8 hours PRN Results No Known Results Summary Purpose [employer] Submission
--- OUTSIDE RECORDS SUMMARY | 2017-02-17 20:35 | XMS REPORT | Continuity of Care Document ---
Author Author [facility] of [facility] Address Unknown Phone Unavailable Allergies Active Description Code Type Severity Reaction Onset Reported/Identified Relationship to Patient Clinical Status Yes No Known Drug Allergies [id number] Drug Allergy Unknown N/ A 01/13/2011 Yes Glucophage 1,000 mg Tablet Drug Allergy 02/23/2012 Yes Glucophage 1,000 mg Tablet Drug Allergy N/A N/A 02/23/2012 Medications Problems Date Dx Coded Attending Type Code Diagnosis Diagnosed By 12/06/2007 ELI KNIGHT DDS 380.4 CERUMEN IMPACTION 12/06/2007 ELI KNIGHT DDS 477.9 RHINITIS ALLERGIC 12/06/2007 ELI KNIGHT DDS 787.01 NAUSEA WITH VOMITING 12/06/2007 ELI KNIGHT DDS 787.91 DIARRHEA 12/06/2007 CEDRICK BARCENAS APRN S 380.4 CERUMEN IMPACTION 12/06/2007 CEDRICK BARCENAS APRN S 477.9 RHINITIS ALLERGIC 12/06/2007 YURY BARCENAS APRNA S 787.01 NAUSEA WITH VOMITING 12/06/2007 CEDRICK BARCENAS APRN S 787.91 DIARRHEA 12/06/2007 ARIELLE CARY DOA K 380.4 CERUMEN IMPACTION 12/06/2007 RAEANN FLORES MARBIN K 477.9 RHINITIS ALLERGIC 12/06/2007 RAEANN FLORES MARBIN K 787.01 NAUSEA WITH VOMITING 12/06/2007 CARY DO MARBIN K 787.91 DIARRHEA 12/06/2007 380.4 CERUMEN IMPACTION 12/06/2007 477.9 RHINITIS ALLERGIC 12/06/2007 787.01 NAUSEA WITH VOMITING 12/06/2007 787.91 DIARRHEA 12/06/2007 380.4 CERUMEN IMPACTION 12/06/2007 477.9 RHINITIS ALLERGIC 12/06/2007 787.01 NAUSEA WITH VOMITING 12/06/2007 787.91 DIARRHEA 12/06/2007 380.4 CERUMEN IMPACTION 12/06/2007 477.9 RHINITIS ALLERGIC 12/06/2007 787.01 NAUSEA WITH VOMITING 12/06/2007 787.91 DIARRHEA 12/06/2007 380.4 CERUMEN IMPACTION 12/06/2007 477.9 RHINITIS ALLERGIC 12/06/2007 787.01 NAUSEA WITH VOMITING 12/06/2007 787.91 DIARRHEA 12/06/2007 NARINDER GEAR ROOM KEEPER, CEDRICK S 380.4 CERUMEN IMPACTION 12/06/2007 NARINDER GEAR ROOM KEEPER, CEDRICK S 477.9 RHINITIS ALLERGIC 12/06/2007 NARINDER GEAR ROOM KEEPER, CEDRICK S 787.01 NAUSEA WITH VOMITING 12/06/2007 NARINDER GEAR ROOM KEEPER, CEDRICK S 787.91 DIARRHEA 12/06/2007 CARY DO, MARBIN K 380.4 CERUMEN IMPACTION 12/06/2007 CARY DO, MARBIN K 477.9 RHINITIS ALLERGIC 12/06/2007 CARY DO, MABRIN K 787.01 NAUSEA WITH VOMITING 12/06/2007 CARY DO, MARBIN K 787.91 DIARRHEA 12/06/2007 NARINDER GEAR ROOM KEEPER, CEDRICK S 380.4 CERUMEN IMPACTION 12/06/2007 NARINDER GEAR ROOM KEEPER, CEDRICK S 477.9 RHINITIS ALLERGIC 12/06/2007 NARINDER GEAR ROOM KEEPER, CEDRICK S 787.01 NAUSEA WITH VOMITING 12/06/2007 NARINDER GEAR ROOM KEEPER, CEDRICK S 787.91 DIARRHEA 12/06/2007 NARINDER GEAR ROOM KEEPER, CEDRICK S 380.4 CERUMEN IMPACTION 12/06/2007 NARINDER GEAR ROOM KEEPER, CEDRICK S 477.9 RHINITIS ALLERGIC 12/06/2007 NARINDER GEAR ROOM KEEPER, CEDRICK S 787.01 NAUSEA WITH VOMITING 12/06/2007 NARINDER GEAR ROOM KEEPER, CEDRICK S 787.91 DIARRHEA 12/06/2007 NARINDER GEAR ROOM KEEPER, CEDRICK S 380.4 CERUMEN IMPACTION 12/06/2007 NARINDER GEAR ROOM KEEPER, CEDRICK S 477.9 RHINITIS ALLERGIC 12/06/2007 NARINDER GEAR ROOM KEEPER, CEDRICK S 787.01 NAUSEA WITH VOMITING 12/06/2007 NARINDER GEAR ROOM KEEPER, CEDRICK S 787.91 DIARRHEA 12/06/2007 NARINDER GEAR ROOM KEEPER, CEDRICK S 380.4 CERUMEN IMPACTION 12/06/2007 NARINDER GEAR ROOM KEEPER, CEDRICK S 477.9 RHINITIS ALLERGIC 12/06/2007 NARINDER GEAR ROOM KEEPER, CEDRICK S 787.01 NAUSEA WITH VOMITING 12/06/2007 NARINDER GEAR ROOM KEEPER, CEDRICK S 787.91 DIARRHEA 12/06/2007 NARINDER GEAR ROOM KEEPER, CEDRICK S 380.4 CERUMEN IMPACTION 12/06/2007 NARINDER GEAR ROOM KEEPER, CEDRICK S 477.9 RHINITIS ALLERGIC 12/06/2007 NARINDER GEAR ROOM KEEPER, CEDRICK S 787.01 NAUSEA WITH VOMITING 12/06/2007 NARINDER GEAR ROOM KEEPER, CEDRICK S 787.91 DIARRHEA 12/06/2007 NARINDER GEAR ROOM KEEPER, CEDRICK S 380.4 CERUMEN IMPACTION 12/06/2007 NARINDER GEAR ROOM KEEPER, CEDRICK S 477.9 RHINITIS ALLERGIC 12/06/2007 NARINDER GEAR ROOM KEEPER, CEDRICK S 787.01 NAUSEA WITH VOMITING 12/06/2007 NARINDER GEAR ROOM KEEPER, CEDRICK S 787.91 DIARRHEA 12/06/2007 NARINDER GEAR ROOM KEEPER, CEDRICK S 380.4 CERUMEN IMPACTION 12/06/2007 NARINDER GEAR ROOM KEEPER, CEDRICK S 477.9 RHINITIS ALLERGIC 12/06/2007 NARINDER GEAR ROOM KEEPER, CEDRICK S 787.01 NAUSEA WITH VOMITING 12/06/2007 NARINDER GEAR ROOM KEEPER, CEDRICK S 787.91 DIARRHEA 12/06/2007 NARINDER GEAR ROOM KEEPER, CEDRICK S 380.4 CERUMEN IMPACTION 12/06/2007 NARINDER GEAR ROOM KEEPER, CEDRICK S 477.9 RHINITIS ALLERGIC 12/06/2007 NARINDER GEAR ROOM KEEPER, CEDRICK S 787.01 NAUSEA WITH VOMITING 12/06/2007 NARINDER GEAR ROOM KEEPER, CEDRICK S 787.91 DIARRHEA 12/06/2007 NARINDER GEAR ROOM KEEPER, CEDRICK S 380.4 CERUMEN IMPACTION 12/06/2007 NARINDER GEAR ROOM KEEPER, CEDRICK S 477.9 RHINITIS ALLERGIC 12/06/2007 NARINDER GEAR ROOM KEEPER, CEDRICK S 787.01 NAUSEA WITH VOMITING 12/06/2007 MIRIAN BARCENAS APRNNDA S 787.91 DIARRHEA 12/06/2007 CEDRICK BARCENAS APRN S 380.4 CERUMEN IMPACTION 12/06/2007 CEDRICK BARCENAS APRN S 477.9 RHINITIS ALLERGIC 12/06/2007 YURY BARCENAS APRNA S 787.01 NAUSEA WITH VOMITING 12/06/2007 YURY BARCENAS APRNA S 787.91 DIARRHEA 12/24/2007 EUGENE DDS, ELI F 250.00 DIABETES II CONTROLLED 12/24/2007 EUGENE DDS, ELI F 724.5 BACKACHE UNSPECIFIED 12/24/2007 YURY BACRENAS APRNA S 250.00 DIABETES II CONTROLLED 12/24/2007 YURY BARCENAS APRNA S 724.5 BACKACHE UNSPECIFIED 12/24/2007 CARY DO, MARBIN K 250.00 DIABETES II CONTROLLED 12/24/2007 CARY DO, MARBIN K 724.5 BACKACHE UNSPECIFIED 12/24/2007 250.00 DIABETES II CONTROLLED 12/24/2007 724.5 BACKACHE UNSPECIFIED 12/24/2007 250.00 DIABETES II CONTROLLED 12/24/2007 724.5 BACKACHE UNSPECIFIED 12/24/2007 250.00 DIABETES II CONTROLLED 12/24/2007 724.5 BACKACHE UNSPECIFIED 12/24/2007 250.00 DIABETES II CONTROLLED 12/24/2007 724.5 BACKACHE UNSPECIFIED 12/24/2007 YURY BARCENAS APRNA S 250.00 DIABETES II CONTROLLED 12/24/2007 YURY BARCENAS APRNA S 724.5 BACKACHE UNSPECIFIED 12/24/2007 CARY DO, MARBIN K 250.00 DIABETES II CONTROLLED 12/24/2007 CARY DO, MARBIN K 724.5 BACKACHE UNSPECIFIED 12/24/2007 MIRIAN BARCENAS APRNNDA S 250.00 DIABETES II CONTROLLED 12/24/2007 MIRIAN BARCENAS APRNNDA S 724.5 BACKACHE UNSPECIFIED 12/24/2007 MIRIAN ABRCENAS APRNNDA S 250.00 DIABETES II CONTROLLED 12/24/2007 MIRIAN BARCENAS APRNNDA S 724.5 BACKACHE UNSPECIFIED 12/24/2007 NARINDER GEAR ROOM KEEPER, CEDRICK S 250.00 DIABETES II CONTROLLED 12/24/2007 NARINDER GEAR ROOM KEEPER, CEDRICK S 724.5 BACKACHE UNSPECIFIED 12/24/2007 NARINDER GEAR ROOM KEEPER, CEDRICK S 250.00 DIABETES II CONTROLLED 12/24/2007 NARINDER GEAR ROOM KEEPER, CEDRICK S 724.5 BACKACHE UNSPECIFIED 12/24/2007 NARINDER GEAR ROOM KEEPER, CEDRICK S 250.00 DIABETES II CONTROLLED 12/24/2007 NARINDER GEAR ROOM KEEPER, CEDRICK S 724.5 BACKACHE UNSPECIFIED 12/24/2007 NARINDER GEAR ROOM KEEPER, CEDRICK S 250.00 DIABETES II CONTROLLED 12/24/2007 NARINDER GEAR ROOM KEEPER, CEDRICK S 724.5 BACKACHE UNSPECIFIED 12/24/2007 NARINDER GEAR ROOM KEEPER, CEDRICK S 250.00 DIABETES II CONTROLLED 12/24/2007 NARINDER GEAR ROOM KEEPER, CEDRICK S 724.5 BACKACHE UNSPECIFIED 12/24/2007 NARINDER GEAR ROOM KEEPER, CEDRICK S 250.00 DIABETES II CONTROLLED 12/24/2007 NARINDER GEAR ROOM KEEPER, CEDRICK S 724.5 BACKACHE UNSPECIFIED 12/24/2007 NARINDER GEAR ROOM KEEPER, CEDRICK S 250.00 DIABETES II CONTROLLED 12/24/2007 NARINDER GEAR ROOM KEEPER, CEDRICK S 724.5 BACKACHE UNSPECIFIED 12/24/2007 NARINDER GEAR ROOM KEEPER, CEDRICK S 250.00 DIABETES II CONTROLLED 12/24/2007 NARINDER GEAR ROOM KEEPER, CEDRICK S 724.5 BACKACHE UNSPECIFIED 02/21/2008 EUGENE DDS, ELI F 466.0 BRONCHITIS, ACUTE 02/21/2008 NARINDER GEAR ROOM KEEPER, CEDRICK S 466.0 BRONCHITIS, ACUTE 02/21/2008 CARY MARBIN FLORES K 466.0 BRONCHITIS, ACUTE 02/21/2008 466.0 BRONCHITIS, ACUTE 02/21/2008 466.0 BRONCHITIS, ACUTE 02/21/2008 466.0 BRONCHITIS, ACUTE 02/21/2008 466.0 BRONCHITIS, ACUTE 02/21/2008 NARINDER GEAR ROOM KEEPER, CEDRICK S 466.0 BRONCHITIS, ACUTE 02/21/2008 CARY MARBIN FLORES K 466.0 BRONCHITIS, ACUTE 02/21/2008 NARINDER GEAR ROOM KEEPER, CEDRICK S 466.0 BRONCHITIS, ACUTE 02/21/2008 NARINDER GEAR ROOM KEEPER, CEDRICK S 466.0 BRONCHITIS, ACUTE 02/21/2008 NARINDER GEAR ROOM KEEPER, CEDRICK S 466.0 BRONCHITIS, ACUTE 02/21/2008 NARINDER GEAR ROOM KEEPER, CEDRICK S 466.0 BRONCHITIS, ACUTE 02/21/2008 NARINDER GEAR ROOM KEEPER, CEDRICK S 466.0 BRONCHITIS, ACUTE 02/21/2008 NARINDER GEAR ROOM KEEPER, CEDRICK S 466.0 BRONCHITIS, ACUTE 02/21/2008 NARINDER GEAR ROOM KEEPER, CEDIRCK S 466.0 BRONCHITIS, ACUTE 02/21/2008 NARINDER GEAR ROOM KEEPER, CEDRICK S 466.0 BRONCHITIS, ACUTE 02/21/2008 NARINDER GEAR ROOM KEEPER, CEDRICK S 466.0 BRONCHITIS, ACUTE 02/21/2008 NARINDER GEAR ROOM KEEPER, CEDRICK S 466.0 BRONCHITIS, ACUTE 11/07/2008 EUGENE DDS, ELI F 789.00 ABDOMINAL PAIN UNSPECIFIED SITE 11/07/2008 NARINDER GEAR ROOM KEEPER, CEDRICK S 789.00 ABDOMINAL PAIN UNSPECIFIED SITE 11/07/2008 CARY DO, MARBIN K 789.00 ABDOMINAL PAIN UNSPECIFIED SITE 11/07/2008 789.00 ABDOMINAL PAIN UNSPECIFIED SITE 11/07/2008 789.00 ABDOMINAL PAIN UNSPECIFIED SITE 11/07/2008 789.00 ABDOMINAL PAIN UNSPECIFIED SITE 11/07/2008 789.00 ABDOMINAL PAIN UNSPECIFIED SITE 11/07/2008 NARINDER GEAR ROOM KEEPER, CEDRICK S 789.00 ABDOMINAL PAIN UNSPECIFIED SITE 11/07/2008 CARY DO, MARBIN K 789.00 ABDOMINAL PAIN UNSPECIFIED SITE 11/07/2008 NARINDER GEAR ROOM KEEPER, CEDRICK S 789.00 ABDOMINAL PAIN UNSPECIFIED SITE 11/07/2008 NARINDER GEAR ROOM KEEPER, CEDRICK S 789.00 ABDOMINAL PAIN UNSPECIFIED SITE 11/07/2008 NARINDER GEAR ROOM KEEPER, CEDRICK S 789.00 ABDOMINAL PAIN UNSPECIFIED SITE 11/07/2008 NARINDER GEAR ROOM KEEPER, CEDRICK S 789.00 ABDOMINAL PAIN UNSPECIFIED SITE 11/07/2008 NARINDER GEAR ROOM KEEPER, CEDRICK S 789.00 ABDOMINAL PAIN UNSPECIFIED SITE 11/07/2008 NARINDER GEAR ROOM KEEPER, CEDRICK S 789.00 ABDOMINAL PAIN UNSPECIFIED SITE 11/07/2008 NARINDER GEAR ROOM KEEPER, CEDRICK S 789.00 ABDOMINAL PAIN UNSPECIFIED SITE 11/07/2008 NARINDER GEAR ROOM KEEPER, CEDRICK S 789.00 ABDOMINAL PAIN UNSPECIFIED SITE 11/07/2008 NARINDER GEAR ROOM KEEPER, CEDRICK S 789.00 ABDOMINAL PAIN UNSPECIFIED SITE 11/07/2008 NARINDER GEAR ROOM KEEPER, CEDRICK S 789.00 ABDOMINAL PAIN UNSPECIFIED SITE 05/08/2009 [facility] DDS, ELI F 493.90 ASTHMA, UNSPECIFIED, UNSPECIFIED 05/08/2009 NARINDER GEAR ROOM KEEPER, CEDRICK S 493.90 ASTHMA, UNSPECIFIED, UNSPECIFIED 05/08/2009 MARBIN CARY DO 493.90 ASTHMA, UNSPECIFIED, UNSPECIFIED 05/08/2009 493.90 ASTHMA, UNSPECIFIED, UNSPECIFIED 05/08/2009 493.90 ASTHMA, UNSPECIFIED, UNSPECIFIED 05/08/2009 493.90 ASTHMA, UNSPECIFIED, UNSPECIFIED 05/08/2009 493.90 ASTHMA, UNSPECIFIED, UNSPECIFIED 05/08/2009 NARINDER GEAR ROOM KEEPER, CEDRICK S 493.90 ASTHMA, UNSPECIFIED, UNSPECIFIED 05/08/2009 MARBIN CARY DO 493.90 ASTHMA, UNSPECIFIED, UNSPECIFIED 05/08/2009 NARINDER GEAR ROOM KEEPER, CEDRICK S 493.90 ASTHMA, UNSPECIFIED, UNSPECIFIED 05/08/2009 NARINDER GEAR ROOM KEEPER, CEDRICK S 493.90 ASTHMA, UNSPECIFIED, UNSPECIFIED 05/08/2009 NARINDER GEAR ROOM KEEPER, CEDRICK S 493.90 ASTHMA, UNSPECIFIED, UNSPECIFIED 05/08/2009 NARINDER GEAR ROOM KEEPER, CEDRICK S 493.90 ASTHMA, UNSPECIFIED, UNSPECIFIED 05/08/2009 NARINDER GEAR ROOM KEEPER, CEDRICK S 493.90 ASTHMA, UNSPECIFIED, UNSPECIFIED 05/08/2009 NARINDER GEAR ROOM KEEPER, CEDRICK S 493.90 ASTHMA, UNSPECIFIED, UNSPECIFIED 05/08/2009 NARINDER GEAR ROOM KEEPER, CEDRICK S 493.90 ASTHMA, UNSPECIFIED, UNSPECIFIED 05/08/2009 NARINDER GEAR ROOM KEEPER, CEDRICK S 493.90 ASTHMA, UNSPECIFIED, UNSPECIFIED 05/08/2009 NARINDER GEAR ROOM KEEPER, CEDRICK S 493.90 ASTHMA, UNSPECIFIED, UNSPECIFIED 05/08/2009 NARINDER GEAR ROOM KEEPER, CEDRICK S 493.90 ASTHMA, UNSPECIFIED, UNSPECIFIED 09/27/2009 EUGENE DDS, ELI F 729.5 PAIN IN LIMB 09/27/2009 NARINDER GEAR ROOM KEEPER, CEDRICK S 729.5 PAIN IN LIMB 09/27/2009 CARY DO, MARBIN K 729.5 PAIN IN LIMB 09/27/2009 729.5 PAIN IN LIMB 09/27/2009 729.5 PAIN IN LIMB 09/27/2009 729.5 PAIN IN LIMB 09/27/2009 729.5 PAIN IN LIMB 09/27/2009 NARINDER GEAR ROOM KEEPER, CEDRICK S 729.5 PAIN IN LIMB 09/27/2009 CARY DO, MARBIN K 729.5 PAIN IN LIMB 09/27/2009 NARINDER GEAR ROOM KEEPER, CEDRICK S 729.5 PAIN IN LIMB 09/27/2009 NARINDER GEAR ROOM KEEPER, CEDRICK S 729.5 PAIN IN LIMB 09/27/2009 NARINDER GEAR ROOM KEEPER, CEDRICK S 729.5 PAIN IN LIMB 09/27/2009 NARINDER GEAR ROOM KEEPER, CEDRICK S 729.5 PAIN IN LIMB 09/27/2009 NARINDER GEAR ROOM KEEPER, CEDRICK S 729.5 PAIN IN LIMB 09/27/2009 NARINDER GEAR ROOM KEEPER, CEDRICK S 729.5 PAIN IN LIMB 09/27/2009 NARINDER GEAR ROOM KEEPER, CEDRICK S 729.5 PAIN IN LIMB 09/27/2009 NARINDER GEAR ROOM KEEPER, CEDRICK S 729.5 PAIN IN LIMB 09/27/2009 NARINDER GEAR ROOM KEEPER, CEDRICK S 729.5 PAIN IN LIMB 09/27/2009 NARINDER GEAR ROOM KEEPER, CEDRICK S 729.5 PAIN IN LIMB 12/05/2009 EUGENE DDS, ELI F 786.2 COUGH 12/05/2009 EUGENE DDS, ELI F V15.85 PERSONAL HISTORY OF CONTACT WITH AND ( SUSPECTED) EXPOSURE TO POTENTIALLY HAZARDOUS BODY FLUIDS 12/05/2009 NARINDER GEAR ROOM KEEPER, CEDRICK S 786.2 COUGH 12/05/2009 NARINDER MON[place]N, CEDRICK S V15.85 PERSONAL HISTORY OF CONTACT WITH AND ( SUSPECTED) EXPOSURE TO POTENTIALLY HAZARDOUS BODY FLUIDS 12/05/2009 CARY DO, MARBIN K 786.2 COUGH 12/05/2009 CARY DO, MARBIN K V15.85 PERSONAL HISTORY OF CONTACT WITH AND ( SUSPECTED) EXPOSURE TO POTENTIALLY HAZARDOUS BODY FLUIDS 12/05/2009 786.2 COUGH 12/05/2009 V15.85 PERSONAL HISTORY OF CONTACT WITH AND (SUSPECTED) EXPOSURE TO POTENTIALLY HAZARDOUS BODY FLUIDS 12/05/2009 786.2 COUGH 12/05/2009 V15.85 PERSONAL HISTORY OF CONTACT WITH AND (SUSPECTED) EXPOSURE TO POTENTIALLY HAZARDOUS BODY FLUIDS 12/05/2009 786.2 COUGH 12/05/2009 V15.85 PERSONAL HISTORY OF CONTACT WITH AND (SUSPECTED) EXPOSURE TO POTENTIALLY HAZARDOUS BODY FLUIDS 12/05/2009 786.2 COUGH 12/05/2009 V15.85 PERSONAL HISTORY OF CONTACT WITH AND (SUSPECTED) EXPOSURE TO POTENTIALLY HAZARDOUS BODY FLUIDS 12/05/2009 NARINDER GEAR ROOM KEEPERMIRIAN BeNDA S 786.2 COUGH 12/05/2009 MIRIAN BARCENAS APRNNDA S V15.85 PERSONAL HISTORY OF CONTACT WITH AND ( SUSPECTED) EXPOSURE TO POTENTIALLY HAZARDOUS BODY FLUIDS 12/05/2009 CARY DO, MARBIN K 786.2 COUGH 12/05/2009 CARY DO, MARBIN K V15.85 PERSONAL HISTORY OF CONTACT WITH AND ( SUSPECTED) EXPOSURE TO POTENTIALLY HAZARDOUS BODY FLUIDS 12/05/2009 NARINDER GEAR ROOM KEEPER, CEDRICK S 786.2 COUGH 12/05/2009 NARINDER GEAR ROOM KEEPER, CEDRICK S V15.85 PERSONAL HISTORY OF CONTACT WITH AND ( SUSPECTED) EXPOSURE TO POTENTIALLY HAZARDOUS BODY FLUIDS 12/05/2009 NARINDER GEAR ROOM KEEPER CEDRICK S 786.2 COUGH 12/05/2009 NARINDER GEAR ROOM KEEPER, CEDRICK S V15.85 PERSONAL HISTORY OF CONTACT WITH AND ( SUSPECTED) EXPOSURE TO POTENTIALLY HAZARDOUS BODY FLUIDS 12/05/2009 NARINDER GEAR ROOM KEEPER, CEDRICK S 786.2 COUGH 12/05/2009 NARINDER GEAR ROOM KEEPER, CEDRICK S V15.85 PERSONAL HISTORY OF CONTACT WITH AND ( SUSPECTED) EXPOSURE TO POTENTIALLY HAZARDOUS BODY FLUIDS 12/05/2009 NARINDER GEAR ROOM KEEPER, CEDRICK S 786.2 COUGH 12/05/2009 NARINDER GEAR ROOM KEEPER, CEDRICK S V15.85 PERSONAL HISTORY OF CONTACT WITH AND ( SUSPECTED) EXPOSURE TO POTENTIALLY HAZARDOUS BODY FLUIDS 12/05/2009 NARINDER GEAR ROOM KEEPER, CEDRICK S 786.2 COUGH 12/05/2009 NARINDER GEAR ROOM KEEPER, CEDRICK S V15.85 PERSONAL HISTORY OF CONTACT WITH AND ( SUSPECTED) EXPOSURE TO POTENTIALLY HAZARDOUS BODY FLUIDS 12/05/2009 NARINDER GEAR ROOM KEEPER, CEDRICK S 786.2 COUGH 12/05/2009 NARINDER GEAR ROOM KEEPER, CEDRICK S V15.85 PERSONAL HISTORY OF CONTACT WITH AND ( SUSPECTED) EXPOSURE TO POTENTIALLY HAZARDOUS BODY FLUIDS 12/05/2009 NARINDER GEAR ROOM KEEPER, CEDRICK S 786.2 COUGH 12/05/2009 NARINDER GEAR ROOM KEEPER, CEDRICK S V15.85 PERSONAL HISTORY OF CONTACT WITH AND ( SUSPECTED) EXPOSURE TO POTENTIALLY HAZARDOUS BODY FLUIDS 12/05/2009 NARINDER GEAR ROOM KEEPER, CEDRICK S 786.2 COUGH 12/05/2009 NARINDER GEAR ROOM KEEPER, CEDRICK S V15.85 PERSONAL HISTORY OF CONTACT WITH AND ( SUSPECTED) EXPOSURE TO POTENTIALLY HAZARDOUS BODY FLUIDS 12/05/2009 NARINDER GEAR ROOM KEEPERMIRIAN BeNDA S 786.2 COUGH 12/05/2009 NARINDER GEAR ROOM KEEPER, CEDRICK S V15.85 PERSONAL HISTORY OF CONTACT WITH AND ( SUSPECTED) EXPOSURE TO POTENTIALLY HAZARDOUS BODY FLUIDS 12/05/2009 NARINDER GEAR ROOM KEEPER, CEDRICK S 786.2 COUGH 12/05/2009 NARINDER GEAR ROOM KEEPER, CEDRICK S V15.85 PERSONAL HISTORY OF CONTACT WITH AND ( SUSPECTED) EXPOSURE TO POTENTIALLY HAZARDOUS BODY FLUIDS 01/18/2010 EUGENE DDS, ELI F 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 01/18/2010 CEDRICK BARCENAS APRN S 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 01/18/2010 MARBIN CARY DO 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 01/18/2010 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 01/18/2010 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 01/18/2010 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 01/18/2010 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 01/18/2010 CEDRICK BARCENAS APRN S 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 01/18/2010 MARBIN CARY DO 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 01/18/2010 NARINDER GEAR ROOM KEEPER, CEDRICK S 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 01/18/2010 NARINDER GEAR ROOM KEEPER, CEDRICK S 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 01/18/2010 NARINDER GEAR ROOM KEEPER, CEDRICK S 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 01/18/2010 NARINDER GEAR ROOM KEEPER, CEDRICK S 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 01/18/2010 NARINDER GEAR ROOM KEEPER, CEDRICK S 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 01/18/2010 NARINDER GEAR ROOM KEEPER, CEDRICK S 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 01/18/2010 NARINDER GEAR ROOM KEEPERMIRIANCEDRICK S 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 01/18/2010 NARINDER GEAR ROOM KEEPER CEDRICK S 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 01/18/2010 MIRIAN BARCENAS APRNNDA S 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 01/18/2010 NARINDER GEAR ROOM KEEPER, CEDRICK S 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 09/04/2010 EUGENE DDS, ELI F 300.00 AN ANXIETY UNSPEC 09/04/2010 EUGENE DDS, ELI F 311 MO DEPRESS NOS 09/04/2010 YURY BARCENAS APRNA S 300.00 AN ANXIETY UNSPEC 09/04/2010 YURY BARCENAS APRNA S 311 MO DEPRESS NOS 09/04/2010 CARY DOMARBIN K 300.00 AN ANXIETY UNSPEC 09/04/2010 CARY DOMARBIN K 311 MO DEPRESS NOS 09/04/2010 300.00 AN ANXIETY UNSPEC 09/04/2010 311 MO DEPRESS NOS 09/04/2010 300.00 AN ANXIETY UNSPEC 09/04/2010 311 MO DEPRESS NOS 09/04/2010 300.00 AN ANXIETY UNSPEC 09/04/2010 311 MO DEPRESS NOS 09/04/2010 300.00 AN ANXIETY UNSPEC 09/04/2010 311 MO DEPRESS NOS 09/04/2010 YURY BARCENAS APRNA S 300.00 AN ANXIETY UNSPEC 09/04/2010 NARINDER GEAR ROOM KEEPER, CEDRICK S 311 MO DEPRESS NOS 09/04/2010 CARY DO, MARBIN K 300.00 AN ANXIETY UNSPEC 09/04/2010 CARY DO, MARBIN K 311 MO DEPRESS NOS 09/04/2010 NARINDER GEAR ROOM KEEPER, CEDRICK S 300.00 AN ANXIETY UNSPEC 09/04/2010 NARINDER GEAR ROOM KEEPERMIRIANCEDRICK S 311 MO DEPRESS NOS 09/04/2010 NARINDER GEAR ROOM KEEPER, CEDRICK S 300.00 AN ANXIETY UNSPEC 09/04/2010 NARINDER GEAR ROOM KEEPERMIRIANCEDRICK S 311 MO DEPRESS NOS 09/04/2010 NARINDER GEAR ROOM KEEPERMIRIANCEDRICK S 300.00 AN ANXIETY UNSPEC 09/04/2010 NARINDER GEAR ROOM KEEPERMIRIANCEDRICK S 311 MO DEPRESS NOS 09/04/2010 NARINDER GEAR ROOM KEEPERMIRIAN BeNDA S 300.00 AN ANXIETY UNSPEC 09/04/2010 NARINDER GEAR ROOM KEEPERMIRIANCEDRICK S 311 MO DEPRESS NOS 09/04/2010 NARINDER GEAR ROOM KEEPER, CEDRICK S 300.00 AN ANXIETY UNSPEC 09/04/2010 NARINDER GEAR ROOM KEEPERMIRIAN BeNDA S 311 MO DEPRESS NOS 09/04/2010 NARINDER GEAR ROOM KEEPERMIRIAN BeNDA S 300.00 AN ANXIETY UNSPEC 09/04/2010 NARINDER GEAR ROOM KEEPERMIRIANCEDRICK S 311 MO DEPRESS NOS 09/04/2010 NARINDER GEAR ROOM KEEPER, CEDRICK S 300.00 AN ANXIETY UNSPEC 09/04/2010 NARINDER GEAR ROOM KEEPERMIRIANCEDRICK S 311 MO DEPRESS NOS 09/04/2010 NARINDER GEAR ROOM KEEPER, CEDRICK S 300.00 AN ANXIETY UNSPEC 09/04/2010 NARINDER GEAR ROOM KEEPERMIRIAN BeNDA S 311 MO DEPRESS NOS 09/04/2010 NARINDER GEAR ROOM KEEPER, CEDRICK S 300.00 AN ANXIETY UNSPEC 09/04/2010 NARINDER GEAR ROOM KEEPER, CEDRICK S 311 MO DEPRESS NOS 09/04/2010 NARINDER GEAR ROOM KEEPER, CEDRICK S 300.00 AN ANXIETY UNSPEC 09/04/2010 NARINDER GEAR ROOM KEEPER, CEDRICK S 311 MO DEPRESS NOS 01/15/2011 Ot 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 01/15/2011 Ot 401.9 HYPERTENSION NOS 01/15/2011 Ot 618.2 UTEROVAG PROLAPS-INCOMPL 01/15/2011 Ot 620.1 CORPUS LUTEUM CYST 01/15/2011 Ot 625.3 DYSMENORRHEA 01/15/2011 Ot 625.6 FEM STRESS INCONTINENCE 01/15/2011 Ot 626.2 EXCESSIVE MENSTRUATION 05/05/2011 EUGENE DDS, ELI F 461.9 SINUSITIS ACUTE 05/05/2011 NARINDER GEAR ROOM KEEPER, CEDRICK S 461.9 SINUSITIS ACUTE 05/05/2011 MARBIN CARY DO 461.9 SINUSITIS ACUTE 05/05/2011 461.9 SINUSITIS ACUTE 05/05/2011 461.9 SINUSITIS ACUTE 05/05/2011 461.9 SINUSITIS ACUTE 05/05/2011 461.9 SINUSITIS ACUTE 05/05/2011 NARINDER GEAR ROOM KEEPER, CEDRICK S 461.9 SINUSITIS ACUTE 05/05/2011 MARBIN CARY DO 461.9 SINUSITIS ACUTE 05/05/2011 NARINDER GEAR ROOM KEEPER, CEDRICK S 461.9 SINUSITIS ACUTE 05/05/2011 NARINDER GEAR ROOM KEEPER, CEDRICK S 461.9 SINUSITIS ACUTE 05/05/2011 NARINDER GEAR ROOM KEEPER, CEDRICK S 461.9 SINUSITIS ACUTE 05/05/2011 NARINDER GEAR ROOM KEEPER, CEDRICK S 461.9 SINUSITIS ACUTE 05/05/2011 NARINDER GEAR ROOM KEEPER, CEDRICK S 461.9 SINUSITIS ACUTE 05/05/2011 NARINDER GEAR ROOM KEEPER, CEDRICK S 461.9 SINUSITIS ACUTE 05/05/2011 NARINDER GEAR ROOM KEEPER, CEDRICK S 461.9 SINUSITIS ACUTE 05/05/2011 NARINDER GEAR ROOM KEEPER, CEDRICK S 461.9 SINUSITIS ACUTE 05/05/2011 NARINDER GEAR ROOM KEEPER, CEDRICK S 461.9 SINUSITIS ACUTE 05/05/2011 NARINDER GEAR ROOM KEEPER, CEDRICK S 461.9 SINUSITIS ACUTE 07/08/2011 EUGENE DDS, ELI Noguera 719.47 PAIN IN JOINT INVOLVING ANKLE AND FOOT 07/08/2011 NARINDER MONTANAN, CEDRICK S 719.47 PAIN IN JOINT INVOLVING ANKLE AND FOOT 07/08/2011 MARBIN CARY DO 719.47 PAIN IN JOINT INVOLVING ANKLE AND FOOT 07/08/2011 719.47 PAIN IN JOINT INVOLVING ANKLE AND FOOT 07/08/2011 719.47 PAIN IN JOINT INVOLVING ANKLE AND FOOT 07/08/2011 719.47 PAIN IN JOINT INVOLVING ANKLE AND FOOT 07/08/2011 719.47 PAIN IN JOINT INVOLVING ANKLE AND FOOT 07/08/2011 YURY BARCENAS APRNA S 719.47 PAIN IN JOINT INVOLVING ANKLE AND FOOT 07/08/2011 MARBIN CARY DO 719.47 PAIN IN JOINT INVOLVING ANKLE AND FOOT 07/08/2011 MIRIAN BARCENAS APRNNDA S 719.47 PAIN IN JOINT INVOLVING ANKLE AND FOOT 07/08/2011 MIRIAN BARCENAS APRNNDA S 719.47 PAIN IN JOINT INVOLVING ANKLE AND FOOT 07/08/2011 MIRIAN BARCENAS APRNNDA S 719.47 PAIN IN JOINT INVOLVING ANKLE AND FOOT 07/08/2011 MIRIAN BARCENAS APRNNDA S 719.47 PAIN IN JOINT INVOLVING ANKLE AND FOOT 07/08/2011 MIRIAN BARCENAS APRNNDA S 719.47 PAIN IN JOINT INVOLVING ANKLE AND FOOT 07/08/2011 MIRIAN BARCENAS APRNNDA S 719.47 PAIN IN JOINT INVOLVING ANKLE AND FOOT 07/08/2011 MIRIAN BARCENAS APRNNDA S 719.47 PAIN IN JOINT INVOLVING ANKLE AND FOOT 07/08/2011 MIRIAN BARCENAS APRNNDA S 719.47 PAIN IN JOINT INVOLVING ANKLE AND FOOT 07/08/2011 MIRIAN BARCENAS APRNNDA S 719.47 PAIN IN JOINT INVOLVING ANKLE AND FOOT 07/08/2011 MIRIAN BARCENAS APRNNDA S 719.47 PAIN IN JOINT INVOLVING ANKLE AND FOOT 07/14/2011 EUGENE DDS, ELI F 790.29 OTHER ABNORMAL GLUCOSE 07/14/2011 YURY BARCENAS APRNA S 790.29 OTHER ABNORMAL GLUCOSE 07/14/2011 MARBIN CARY DO 790.29 OTHER ABNORMAL GLUCOSE 07/14/2011 790.29 OTHER ABNORMAL GLUCOSE 07/14/2011 790.29 OTHER ABNORMAL GLUCOSE 07/14/2011 790.29 OTHER ABNORMAL GLUCOSE 07/14/2011 790.29 OTHER ABNORMAL GLUCOSE 07/14/2011 YURY BARCENAS APRNA S 790.29 OTHER ABNORMAL GLUCOSE 07/14/2011 MARBIN CARY DO 790.29 OTHER ABNORMAL GLUCOSE 07/14/2011 NARINDER GEAR ROOM KEEPER, CEDRICK S 790.29 OTHER ABNORMAL GLUCOSE 07/14/2011 NARINDER GEAR ROOM KEEPER, CEDRICK S 790.29 OTHER ABNORMAL GLUCOSE 07/14/2011 NARINDER GEAR ROOM KEEPER, CEDRICK S 790.29 OTHER ABNORMAL GLUCOSE 07/14/2011 NARINDER GEAR ROOM KEEPER, CEDRICK S 790.29 OTHER ABNORMAL GLUCOSE 07/14/2011 NARINDER GEAR ROOM KEEPER, CEDRICK S 790.29 OTHER ABNORMAL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 MAMMOGRAM FOR MALIGNANT NE 10/31/2016 Ot V76.12 OTH SCREEN MAMMO-MALIGN NEOPLASM OF BHARGAV 10/31/2016 Ot 629.32 EXPOSURE OF IMPLANT VAG MESH OTH PROST 10/31/2016 Ot V72.84 EXAM PRE-OPERATIVE NOS 10/31/2016 Ot V74.8 SCREEN-BACTERIAL DIS NEC 10/31/2016 Ot 346.90 MIGRAINE UNSPECIFIED W/O INTRACT MGRN W/ 10/31/2016 Ot 427.89 CARDIAC DYSRHYTHMIAS NEC 10/31/2016 Ot 346.90 MIGRAINE UNSPECIFIED W/O INTRACT MGRN W/ 10/31/2016 Ot 427.89 CARDIAC DYSRHYTHMIAS NEC 10/31/2016 ROBBIE SIMMS DO Ot V76.12 OTH SCREEN MAMMO-MALIGN NEOPLASM OF BHARGAV 10/31/2016 CEDRICK BARCENAS Ot R10.13 EPIGASTRIC PAIN 10/31/2016 DAYANA HELLER DO Ot R11.2 NAUSEA WITH VOMITING, UNSPECIFIED 10/31/2016 DAYANA HELLER DO Ot K82.8 OTHER SPECIFIED DISEASES OF GALLBLADDER 10/31/2016 DAYANA HELLER DO Ot Z01.818 ENCOUNTER FOR OTHER PREPROCEDURAL EXAMIN 10/31/2016 CEDRICK BARCENAS Ot M47.812 SPONDYLOSIS W/O MYELOPATHY OR RADICULOPA 10/31/2016 CEDRICK BARCENAS Ot M54.2 CERVICALGIA 10/31/2016 ROBBIE SIMMS DO Ot Z12.31 ENCNTR SCREEN MAMMOGRAM FOR MALIGNANT NE 02/17/2017 Ot 629.32 EXPOSURE OF IMPLANT VAG MESH OTH PROST 02/17/2017 Ot V72.84 EXAM PRE-OPERATIVE NOS 02/17/2017 Ot V74.8 SCREEN-BACTERIAL DIS NEC 02/17/2017 Ot 346.90 MIGRAINE UNSPECIFIED W/O INTRACT MGRN W/ 02/17/2017 Ot 427.89 CARDIAC DYSRHYTHMIAS NEC 02/17/2017 Ot 346.90 MIGRAINE UNSPECIFIED W/O INTRACT MGRN W/ 02/17/2017 Ot 427.89 CARDIAC DYSRHYTHMIAS NEC 02/17/2017 ROBBIE SIMMS DO Ot V76.12 OTH SCREEN MAMMO-MALIGN NEOPLASM OF BHARGAV 02/17/2017 CEDRICK BARCENAS Ot R10.13 EPIGASTRIC PAIN 02/17/2017 DAYANA HELLER DO Ot R11.2 NAUSEA WITH VOMITING, UNSPECIFIED 02/17/2017 DAYANA HELLER DO Ot K82.8 OTHER SPECIFIED DISEASES OF GALLBLADDER 02/17/2017 DAYANA HELLER DO Ot Z01.818 ENCOUNTER FOR OTHER PREPROCEDURAL EXAMIN 02/17/2017 CEDRICK BARCENAS Ot M47.812 SPONDYLOSIS W/O MYELOPATHY OR RADICULOPA 02/17/2017 CEDRICK BARCENAS Ot M54.2 CERVICALGIA 02/17/2017 ROBBIE SIMMS DO Ot Z12.31 ENCNTR SCREEN MAMMOGRAM FOR MALIGNANT NE Procedures Code Description Performed By Performed On 59.79 URIN INCONTIN REPAIR NEC 01/14/2011 65.61 OTH REMOVE BOTH OVARIES/TUBES 01/14/2011 68.51 ASSIST VAG HYSTER(LAVH) 01/14/2011 70.51 CYSTOCELE REPAIR 01/14/2011 89050 ROUTINE VENIPUNCTURE 08/19/2012 93338 A1C (IN-HOUSE) 57203 CBC 08/19/2012 38969 CMP 08/19/2012 19089 LIPID PANEL 08/19 9511395 GFR CALC (RESULT ONLY) 08/19/2012 86142 BNP 08/19/2012 67689 TSH 08/19/2012 82486 CRP HS (CARDIO) 08/19/2012 57586 EKG, TRACING (IN-HOUSE) 08/19/2012 REYNALDO RIVERA 08/19 15445 HOLTER MONITOR 74022 PULMONARY FUNCTION TEST 12/06/2012 18497 PULMONARY FUNCTION TEST (IN-HOUSE) 01/28/2013 24474 RESPIRATORY FLOW VOLUME LOOP 01/28/2013 40503 PULMONARY EDUCATION 01/28/2013 76800 URINE DRUG SCREEN (IN-HOUSE) 08/11/2013 39111 THERAPUTIC INJ SQ/IM 08/11/2013 J2550 PHENERGAN INJECTION UP TO 50 MG 08/11/2013 J1885 TORADOL INJ 08/11 83224 ROUTINE VENIPUNCTURE 08/16/2013 27844 CBC 08/16/2013 23101 ROUTINE VENIPUNCTURE 08/24/2013 9187859 GFR CALC (RESULT ONLY) 08/24/2013 14300 CMP 08/24/2013 10894 LIPID PANEL 08/24 38040 TSH 08/24/2013 70704 ROUTINE VENIPUNCTURE 10/19/2013 04905 TSH 10/19/2013 39977 ROUTINE VENIPUNCTURE 11/10/2013 67156 XRAY CERVICAL SPINE, 2 OR 3 VIEWS 11/10/2013 30619 OXIMETRY 2013 80353 URIC ACID 2013 54416 CRP 11/10/2013 68107 ASO 11/11/2013 24950 RA FACTOR 2013 ANAANA PIOTR ANALYZER (SCREEN) 11/11/2013 77838 ROUTINE VENIPUNCTURE 04/10/2014 65814 BONE MINERAL DENSITY, HEEL US (IN HOUSE) 04/10/2014 63180 CBC 04/10/2014 2514800 GFR CALC (RESULT ONLY) 04/10/2014 90256 CMP 04/10/2014 39164 LIPID PANEL 04/10 76498 TSH 04/10/2014 94622 A1C (RML) 2013 93372 [employer] 2013 79013 SLEEP STUDY (HOSPITAL- SLEEP STUDY) 04/19/2014 Results Encounters ACCT No. Visit Date/Time Discharge Status Pt. Type Provider Facility Loc./Unit Complaint [id number] 09/18/2014 16:01:00 09/18/2014 23: 59:59 CLS Outpatient NARINDER GEAR ROOM KEEPERMIRIANCEDRICK S [id number] 06/27/2014 14:49:00 06/27/2014 23: 59:59 CLS Outpatient NARINDER GEAR ROOM KEEPER CEDRICK S [id number] 04/19/2014 13:27:00 04/19/2014 23: 59:59 CLS Outpatient NARINDER GEAR ROOM KEEPER, CEDRICK S [id number] 04/10/2014 12:06:00 04/10/2014 23: 59:59 CLS Outpatient NARINDER GEAR ROOM KEEPER, CEDRICK S [id number] 01/17/2014 13:53:00 01/17/2014 23: 59:59 CLS Outpatient NARINDER GEAR ROOM KEEPER, CEDRICK S [id number] 11/10/2013 12:50:00 11/10/2013 23: 59:59 CLS Outpatient NARINDER GEAR ROOM KEEPER, CEDRICK S [id number] 10/19/2013 15:04:00 10/19/2013 23: 59:59 CLS Outpatient NARINDER GEAR ROOM KEEPER, CEDRICK S [id number] 08/24/2013 08:51:00 08/24/2013 23: 59:59 CLS Outpatient NARINDER GEAR ROOM KEEPER, CEDRICK S [id number] 08/16/2013 11:48:00 08/16/2013 23: 59:59 CLS Outpatient NARINDER GEAR ROOM KEEPER, CEDRICK S [id number] 08/11/2013 11:52:00 08/11/2013 23: 59:59 CLS Outpatient NARINDER GEAR ROOM KEEPER, CEDRICK S [id number] 04/21/2013 14:10:00 04/21/2013 23: 59:59 CLS Outpatient RAEANN DOMARBIN [id number] 02/17/2013 12:23:00 02/17/2013 23: 59:59 CLS Outpatient NARINDER GEAR ROOM KEEPER, CEDRICK S [id number] 08/19/2012 15:05:00 08/19/2012 23: 59:59 CLS Outpatient MARBIN CARY DO [id number] 06/22/2012 13:32:00 06/22/2012 23: 59:59 CLS Outpatient NARINDER GEAR ROOM KEEPER, CEDRICK S [id number] 02/23/2012 12:21:00 02/23/2012 23: 59:59 CLS Outpatient ELI KNIGHT DDS [id number] 01/28/2013 13:06:00 Document Registration [id number] 11/30/2012 13:29:00 Document Registration [id number] 11/12/2012 13:21:00 Document Registration [id number] 10/21/2012 18:05:00 Document Registration [id number] 10/14/2016 14:18:00 2016 23:59:59 CLS Outpatient ROBBIE SIMMS DO [facility] RAD SCREENING [id number] 09/19/2016 13:00:00 2016 23:59:59 CLS Outpatient CEDRICK BARCENAS [facility] RAD CERVICALGIA [id number] 07/23/2016 13:47:00 2016 23:59:59 CLS Preadmit CEDRICK BARCENAS [facility] REHAB BACK PAIN [id number] 04/27/2015 05:58:00 2014 14:37:00 DIS Outpatient DAYANA HELLER DO [facility] SDC BILIARY DYSKNESIA [id number] 04/25/2015 11:25:00 2014 23:59:59 CLS Outpatient DAYANA HELLER DO [facility] PREOP DILIARY DYSKNESIA [id number] 04/25/2015 11:11:00 2014 23:59:59 CLS Outpatient DAYANA HELLER DO [facility] RAD N/V [id number] 04/22/2015 22:41:00 2014 02:17:00 DIS Emergency TONY SHAYE FLORES K [facility] ER GALLBLADDER PAIN [id number] 04/19/2015 10:39:00 2014 23:59:59 CLS Outpatient CEDRICK BARCENAS [facility] RAD EPIGASTIC PAIN [id number] 01/08/2015 11:00:00 2014 00:01:00 DIS Outpatient CEDRICK BARCENAS [facility] CARD BRADYCARDIA [id number] 09/15/2014 12:44:00 2014 14:27:00 DIS Emergency LUNA RENDON GEAR ROOM KEEPER [facility] ER BODYACHES DIARRHEA [id number] 01/25/2014 14:54:00 2013 23:59:59 CLS Outpatient ROBBIE SIMMS DO C [facility] RAD ROUTINE [id number] 12/09/2013 15:28:00 2013 23:59:59 CLS Outpatient [id number] 08/18/2013 09:15:00 2013 16:39:00 DIS Outpatient CEDRICK BARCENAS DEVELOPMENT COACH [facility] REHAB LOW BACK PAIN [id number] 11/19/2012 09:17:00 2012 00:01:00 DIS Outpatient NARINDERMIRIANCEDRICK DEVELOPMENT COACH [facility] CARD BRADYCARDIA [id number] 11/16/2012 10:50:00 2012 00:01:00 DIS Outpatient NARIDNER CEDRICK DEVELOPMENT COACH [facility] CARD BRADYCARDIA,SEVERE MIGRAINES [id number] 01/05/2013 21:13:00 2012 06:20:00 DIS Outpatient YURY BARCENASA DEVELOPMENT COACH [facility] SLEEP SNORING,HAVING EPISODES OF BRADYCARDIA [id number] 11/09/2012 12:35:00 2012 19:25:00 DIS Outpatient JARRET VERMA FACC, MELONIE SOLITARIO CCDS [facility] CATH CHEST PAIN,SOB,BRADYCARDIA , [id number] 02/17/2017 20:26:00 ACT Emergency LUNA RENDON APRN [facility] ER ANKLE PAIN [id number] 04/11/2015 15:42:00 Document Registration [id number] 02/18/2013 09:00:00 Document Registration [id number] 02/15/2013 10:00:00 Document Registration [id number] 03/09/2012 05:55:00 Document Registration [id number] 03/03/2012 13:06:00 Document Registration [id number] 08/25/2011 09:50:00 Document Registration [id number] 01/14/2011 05:50:00 Document Registration [id number] 01/09/2011 08:48:00 Document Registration [id number] 11/07/2010 09:43:00 Document Registration [id number] 10/14/2010 08:35:00 Document Registration [id number] 09/09/2010 17:06:00 Document Registration [id number] 08/21/2010 11:07:00 Document Registration [id number] 04/16/2010 14:16:00 Document Registration [id number] 01/07/2010 13:14:00 Document Registration
--- NOTE | 2017-02-17 20:39 | ED Lower Extremity ---
General Stated Complaint: ANKLE PAIN Source: patient Exam Limitations: no limitations History of Present Illness Time seen by provider: 20:37 Initial Comments To ER with pain over the lateral aspect of left ankle for the past hour after her boxer knocked her over at home. Despite rating her pain a 9 out of 10 and she is taken nothing at home for the pain and she is ambulatory to room 7 without use of assistive device and with a normal gait. Onset: just prior to arrival Severity: moderate Modifying Factors: Worse With Movement Allergies and Home Medications Allergies Coded Allergies: No Known Drug Allergies (Unverified , 01/13/11) Home Medications Albuterol Sulfate 2.5 Mg/3 Ml Vial.neb, 2.5 MG IH Q6H PRN for prn, (Reported) Calcium Carbonate 500 Mg Tablet, 1,000 MG PO DAILY, (Reported) Hydrocodone/Acetaminophen 1 Each Tablet, 1 TAB PO Q4H PRN, #30 Prescribed by: DAYANA HELLER on 04/27/15 0957 Hyoscyamine Sulfate 0.125 Mg Tab.subl, 1-2 TAB SL Q4H, #15 Prescribed by: SHAYE JIMENEZ on 04/23/15 013 Levothyroxine Sodium 100 Mcg Tablet, 100 MCG PO DAILY, (Reported) Ondansetron 4 Mg Tab.rapdis, 4 MG PO Q4H, #10 Prescribed by: SHAYE JIMENEZ on 04/23/15 013 Pantoprazole Sodium 40 Mg Tablet.dr, 40 MG PO DAILY, #15 Prescribed by: SHAYE JIMENEZ on 04/23/15 013 Venlafaxine HCl 75 Mg Cap.er.24h, 75 MG PO, (Reported) Constitutional: see HPI EENTM: see HPI Respiratory: no symptoms reported Cardiovascular: no symptoms reported Genitourinary: no symptoms reported Musculoskeletal: see HPI Skin: no symptoms reported Psychiatric/Neurological: No Symptoms Reported Past Nfiurzx-Jtdkni-Khefkm Hx Patient Social History Recent Foreign Travel: No Contact w/Someone Who Travel: No Immunizations Up To Date Date of Influenza Vaccine: Mar 06, 2015 Seasonal Allergies Seasonal Allergies: No Surgeries Surgeries: Hysterectomy, Orthopedic, Tonsillectomy, Tubal Ligation Neurological Neurological Disorders: Headaches /Migraines Reproductive System Hx Reproductive Disorders: No Sexually Transmitted Disease: No HIV/AIDS: No Female Reproductive Disorders: Denies 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, 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 Gastrointestinal Gastrointestinal Disorders: Gastroesophageal Reflux, Chronic Constipation, Gall Bladder Disease Endocrine Endocrine Disorders: Hypothyroidsim HEENT Loss of Vision: Bilateral Hearing Impairment: Denies Blood Transfusions Adverse Reaction to a Blood Tr: No Physical Exam Vital Signs Vital Sign - Last 12Hours 02/17/17 20:35 Temp 98.1 Pulse 78 Resp 20 B/P (MAP) 143/78 Pulse Ox 96 O2 Delivery Room Air Capillary Refill : General Appearance: WD/WN, no apparent distress HEENT: PERRL/EOMI, normal ENT inspection Neck: non-tender, full range of motion Respiratory: no respiratory distress, no accessory muscle use Gastrointestinal: normal bowel sounds, non tender, soft Hips: bilateral hip non-tender, bilateral hip normal inspection, bilateral hip normal range of motion Legs: bilateral leg non-tender, bilateral leg normal inspection, bilateral leg normal range of motion Knees: bilateral knee non-tender, bilateral knee normal inspection, bilateral knee normal range of motion Ankles: left ankle pain, left ankle soft tissue tenderness, left ankle other ( there is no swelling or ecchymosis or erythema or abrasion) Feet: bilateral foot non-tender, bilateral foot normal inspection, bilateral foot normal range of motion, bilateral foot no evidence of injury Neurologic/Psychiatric: alert, normal mood/affect, oriented x 3 Skin: normal color, warm/dry Progress/Results/Core Measures Results/Orders My Orders Orders - LUNA RENDON APRN Ibuprofen Tablet (Motrin Tablet) (02/17/17 20:45) Ankle, Left, 3 Views (02/17/17 20:36) Vital Signs/I&O Vital Sign - Last 12Hours 02/17/17 20:35 Temp 98.1 Pulse 78 Resp 20 B/P (MAP) 143/78 Pulse Ox 96 O2 Delivery Room Air Diagnostic Imaging Diagonstic Imaging: Xray Comments NAME: JAY VIGIL [facility] REC#: [id number] PT STATUS: REG ER : 1965 PHYSICIAN: LUNA RENDON APRN ADMIT DATE: 02/17/17/ER Draft Date of Exam:02/17/17 ANKLE, LEFT, 3 VIEWS INDICATION: Left ankle injury, pain COMPARISON: None FINDINGS: 3 views of the left ankle demonstrate no fracture or dislocation. Articular surfaces are age-appropriate. No foreign body. IMPRESSION: No fracture or dislocation Dictated on workstation # [id number] Dict: 02/17/172102 Trans: 02/17/172105 [facility] [id number] Interpreted by: HONORIO MOE Electronically signed by: Departure Impression Impression: Primary Impression: Ankle sprain Disposition: HOME, SELF-CARE Condition: Stable Departure-Patient Inst. Decision time for Depature: 20:38 Referrals: MARBIN CARY DO (PCP) Primary Care Physician CEDRICK BARCENAS (Family) Primary Care Physician Patient Instructions: Ankle Sprain Add. Discharge Instructions: 1. Ice, rest, Tylenol and Motrin 2. LUNA RENDON PHYTOPATHOLOGIST Feb 17, 2017 20:39
[2017-02-17] MEDS ORDERED: IBUPROFEN 800 MG (MOTRIN) TAB PO ONE (20:45)
--- NOTE | 2017-02-17 21:06 | Diagnostic Imaging Report ---
INDICATION: Left ankle injury, pain COMPARISON: None FINDINGS: 3 views of the left ankle demonstrate no fracture or dislocation. Articular surfaces are age-appropriate. No foreign body. IMPRESSION: No fracture or dislocation Dictated by: Dictated on workstation # [id number]
[2017-02-17 21:14] VITALS: BP 0/0
== END 2017-02-17 21:14 | disposition home or self-care (01) ==
LOC: EDUNIT# 20:24 → ER 20:26
DX: S93.402A Sprain of unspecified ligament of left ankle, 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 (principal); E03.9 Hypothyroidism, unspecified; K21.9 Gastro-esophageal reflux disease without esophagitis; K59.09 Other constipation; G43.909 Migraine, unspecified, not intractable, without status migrainosus; Z90.710 Acquired absence of both cervix and uterus; Z87.59 Personal history of other complications of pregnancy, childbirth and the puerperium; Z90.89 Acquired absence of other organs; W51.XXXA Accidental striking against or bumped into by another person, 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; Y92.009 Unspecified place in unspecified non-institutional (private) residence as the place of occurrence of the external cause
CPT/HCPCS: 73610; 99283

== ENCOUNTER 2017-11-10 19:30 | Emergency (ER) | payer BC ==
[~2017-11-10] VITALS: Ht 160 cm; Wt 71.7 kg
[~2017-11-10 19:30] MED LIST changes: -HYDR-3812 PO
--- OUTSIDE RECORDS SUMMARY | 2017-11-10 19:35 | XMS REPORT ---
Author Author CEDRICK BARCENAS Organization [facility] [place] Address [address] [place] [address] Care Team Providers Care Esthetician/Spa Coordinator Name Role Phone CEDRICK BARCENAS Unavailable PROBLEMS Type Condition ICD9-CM Code [id number] Code Onset Dates Condition Status SNOMED Code Problem Anxiety F41.9 Active 12748112 Problem Mixed hyperlipidemia E78.2 Active 724123156 Problem Chronic pain syndrome G89.4 Active 877202334 Problem penitentiary 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.891 Active 458356339 Problem Hypothyroidism, unspecified E03.9 Active 77489523 Problem Depression, unspecified depression type F32.9 Active [id number] ALLERGIES No Information SOCIAL HISTORY Never Assessed PLAN OF CARE VITAL SIGNS MEDICATIONS Medication Instructions Dosage Frequency Start Date End Date Duration Status Hydrocodone-Acetaminophen 10-325 MG Orally 3 times a day 1 tablet 8h Oct 28 days Active RESULTS No Results PROCEDURES No Known procedures IMMUNIZATIONS No Known Immunizations MEDICAL (GENERAL) HISTORY Type Description Date Medical History hypothyroidism Medical History anxiety Medical History chronic back pain Surgical History hysterectomy 2010 Surgical History revision of the mesh sling 2011 Surgical History cholecystectomy Surgical History tonsilectomy Surgical History L knee tumor removal Hospitalization History surgeries
--- OUTSIDE RECORDS SUMMARY | 2017-11-10 19:36 | XMS REPORT ---
Author Author CEDRICK BARCENAS [facility] Address [address] [place] [address] Care Team Providers Care Technician Plant And Maintenance Name Role Phone CEDRICK BARCENAS Unavailable PROBLEMS Type Condition ICD9-CM Code [id number] Code Onset Dates Condition Status SNOMED Code Problem Anxiety F41.9 Active 21122533 Problem Mixed hyperlipidemia E78.2 Active 662407541 Problem Chronic pain syndrome G89.4 Active 287047820 Problem [facility] 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.891 Active 623463613 Problem Hypothyroidism, unspecified E03.9 Active 80798374 Problem Depression, unspecified depression type F32.9 Active 42868171 ALLERGIES No Information SOCIAL HISTORY Never Assessed PLAN OF CARE VITAL SIGNS MEDICATIONS Unknown [...]
--- OUTSIDE RECORDS SUMMARY | 2017-11-10 19:36 | XMS REPORT ---
Author Author CEDRICK BARCENAS Organization [facility] Address [address] [place] [address] Care Team Providers Care Checker In Name Role Phone CEDRICK BARCENAS Unavailable PROBLEMS Type Condition ICD9-CM Code WPK45-ZA Code Onset Dates Condition Status SNOMED Code Problem Anxiety F41.9 Active 68598723 Problem Mixed hyperlipidemia E78.2 Active 754247902 Problem Chronic pain syndrome G89.4 Active 167426064 Problem [facility] 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.891 Active 535983491 Problem Hypothyroidism, unspecified E03.9 Active 91907876 Problem Depression, unspecified depression type F32.9 Active 18642293 ALLERGIES No Information SOCIAL HISTORY Never Assessed PLAN OF CARE VITAL SIGNS MEDICATIONS Medication Instructions Dosage Frequency Start Date End Date Duration Status Hydrocodone-Acetaminophen 10-325 MG Orally 3 times a day 1 tablet 8h Jul 28 days Active RESULTS No Results PROCEDURES [...]
--- OUTSIDE RECORDS SUMMARY | 2017-11-10 19:36 | XMS REPORT ---
Author Author CEDRICK BARCENAS [facility] Address [address] [place] [address] Care Team Providers Care Admitting Supervisor Name Role Phone CEDRICK BARCENAS Unavailable PROBLEMS Type Condition ICD9-CM Code LQQ15-IQ Code Onset Dates Condition Status SNOMED Code Problem Anxiety F41.9 Active 25775520 Problem Mixed hyperlipidemia E78.2 Active 338506875 Problem Chronic pain syndrome G89.4 Active 467896628 Problem senior care 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.891 Active 547290712 Problem Hypothyroidism, unspecified E03.9 Active 05281420 Problem Depression, unspecified depression type F32.9 Active 76191060 ALLERGIES No Information SOCIAL HISTORY Never Assessed [...]
--- OUTSIDE RECORDS SUMMARY | 2017-11-10 19:37 | XMS REPORT ---
Author Author CEDRICK BARCENAS [facility] Address [address] [place] [address] Care Team Providers Care Application Software Engineer Name Role Phone CEDRICK BARCENAS Unavailable PROBLEMS Type Condition ICD9-CM Code UDY22-DF Code Onset Dates Condition Status SNOMED Code Problem Anxiety F41.9 Active 59704599 Problem Mixed hyperlipidemia E78.2 Active 723872816 Problem Chronic pain syndrome G89.4 Active 384730065 Problem correction 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.891 Active 112820169 Problem Hypothyroidism, unspecified E03.9 Active 13952170 Problem Depression, unspecified depression type F32.9 Active 41546568 ALLERGIES Substance Reaction Event Type Date Status Glucophage 1,000 Mg Tablet making pt feel funny Non Drug Allergy Aug, Active SOCIAL HISTORY Never Assessed PLAN OF CARE Activity Details Follow Up 4 Weeks Reason:neck pain VITAL SIGNS Height 63 in 2016-09-15 Weight 157.7 lbs 2016-09-15 Temperature 98.2 degrees Fahrenheit 2016-09-15 Heart Rate 76 bpm 2016-09-15 Respiratory Rate 18 2016-09-15 BMI 27.93 kg/m2 2016-09-15 Blood pressure systolic 150 mmHg 2016-09-15 Blood pressure diastolic 86 mmHg 2016-09-15 MEDICATIONS Medication Instructions Dosage Frequency Start Date End Date Duration Status Hydrocodone-Acetaminophen 10-325 MG Orally every 4-6 hours as needed 1 tablet Aug, Active Effexor XR 75 MG Orally Once a day 1 capsule with food 24h 90 days Active Simvastatin 40 mg Orally Once a day 1 tablet in the evening 24h May, Active Flexeril 10 MG Orally Three times a day 1 tablet as needed 8h Active Albuterol Sulfate (2.5 MG/3ML) 0.083% Inhalation 4 times a day 3 ml 6h May, 30 days Active Levothyroxine Sodium 100 MCG Orally Once a day 1 tablet 24h 90 days Active Oxygen Active RESULTS Name Result Date Reference Range MRI : Cervical w/o Contrast 2016-09-19 PROCEDURES No Known procedures IMMUNIZATIONS No Known Immunizations MEDICAL (GENERAL) HISTORY Type Description Date Medical History hypothyroidism Medical History anxiety Medical History chronic back pain Surgical History hysterectomy 2010 Surgical History revision of the mesh sling 2011 Surgical History cholecystectomy Surgical History tonsilectomy Surgical History L knee tumor removal Hospitalization History surgeries
--- OUTSIDE RECORDS SUMMARY | 2017-11-10 19:38 | XMS REPORT ---
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 Name Role Phone CEDRICK BARCENAS Unavailable PROBLEMS Type Condition ICD9-CM Code FVM17-MN Code Onset Dates Condition Status SNOMED Code Problem nursing home 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.891 Active 279650770 Problem Chronic pain syndrome G89.4 Active 512680667 Problem Generalized anxiety disorder F41.1 Active 42474950 Problem Major depressive disorder, recurrent episode, moderate F33.1 Active 471986259 Problem Hypothyroidism, unspecified E03.9 Active 04913253 Problem Depression, unspecified depression type F32.9 Active 48242013 Problem Anxiety F41.9 Active 07069885 Problem Mixed hyperlipidemia E78.2 Active 156778793 ALLERGIES Substance Reaction Event Type Date Status Glucophage 1,000 Mg Tablet making pt feel funny Non Drug Allergy Nov, Active ENCOUNTERS Encounter Location Date Diagnosis [place] [id number] [place] [address] 57480- 7278 September, [place] [address] [place] [id number] [place] [address] 28662- 4048 Aug, [place] [address] [place] [id number] [place] [address] 91635- 7785 Jul, Major depressive disorder, recurrent episode, moderate F33.1 [facility] [address] [place] [id number] [place] [address] 52604- 2949 Jul, [place] [address] [place] [id number] [place] [address] 50551- 2210 Jul, Hypothyroidism, unspecified E03.9 [place] [address] [place] [id number] [place] [address] 73804- 1605 Jul, Hypothyroidism, unspecified E03.9 [facility] [address] [id number] [place] [address] 52639- 6013 Jul, Mixed hyperlipidemia E78.2 [place] [address] [place] [id number] [place] [address] 67154- 7092 Jul, Mixed hyperlipidemia E78.2 [facility] [address] 27781 -9758 Jul, Bronchitis J40 ; Cough R05 and Wheezing R06.2 [place] [address] 35209- 4635 Jul, Major depressive disorder, recurrent episode, moderate F33.1 and Generalized anxiety disorder F41.1 [place] [address] 20186- 9297 Jul, [place] [address] 88827- 5465 Jul, Major depressive disorder, recurrent episode, moderate F33.1 and Generalized anxiety disorder F41.1 [place] [address] 35289- 4891 Jul, Generalized anxiety disorder F41.1 and Major depressive disorder, recurrent episode, moderate F33.1 [place] [address] [place] [id number] [place] [address] 08868- 4134 Jul, Mixed hyperlipidemia E78.2 [place] [address] [place] [id number] [place] [address] 62033- 1026 Jun, Depression, unspecified depression type F32.9 ; Cervicalgia M54.2 ; Trigger point M79.1 ; Hypothyroidism, unspecified E03.9 ; Screening, lipid Z13.220 and Mixed hyperlipidemia E78.2 [place] [address] [place] [id number] [place] [address] 79130- 0850 Jun, [place] [address] 73071- 4814 May, [place] [address] [place] [id number] [place] [address] 49725- 6882 Apr, Acute bronchitis due to other specified organisms J20.8 and Tobacco abuse counseling Z71.6 [place] [address] [place] [id number] [place] [address] 03755- 4489 Mar, Depression, unspecified depression type F32.9 [place] [address] 47587- 9427 Jan, Chronic pain syndrome G89.4 [place] [address] 00639- 8764 Nov, Anxiety F41.9 ; Depression, unspecified depression type F32.9 and Chronic pain syndrome G89.4 [place] [address] [place] [id number] [place] [address] 97399- 2984 Oct, Anxiety F41.9 and Hypothyroidism, unspecified E03.9 [facility] [address] 49064 -3355 Oct, Left foot pain M79.672 and Contusion of left foot, 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 S90.32XA [place] [address] [place] [id number] [place] [address] 47971- 7907 Oct, [place] [address] [place] [id number] [place] [address] 62820- 0761 September, Cervicalgia M54.2 [place] [address] [place] [id number] [place] [address] 78005- 2278 September, [place] [address] [place] [id number] [place] [address] 94339- 0627 Aug, Cervicalgia M54.2 [place] [address] [place] [id number] [place] [address] 44710- 4640 Aug, Cervicalgia M54.2 and Left arm numbness R20.0 [place] [address] 70426- 7454 Aug, [facility] [address] [place] [id number] [place] [address] 17077- 9545 Aug, [facility] [address] [place] [id number] [place] [address] 27056- 5926 Jul, [facility] [address] [place] [id number] [place] [address] 34113- 1181 Jul, [facility] [address] [place] [id number] [place] [address] 51456- 5880 Jul, [facility] [address] [place] [id number] [place] [address] 87192- 9062 Jul, Acute midline low back pain without sciatica M54.5 [facility] [address] [place] [id number] [place] [address] 67503- 0905 Jun, Acute midline low back pain without sciatica M54.5 [facility] [address] [place] [id number] [place] [address] 07337- 1585 Jun, Chronic pain syndrome G89.4 and Muscle spasm M62.838 [facility] [address] [place] [id number] [place] [address] 34931- 4216 Jun, [facility] [address] [place] [id number] [place] [address] 45759- 5033 Jun, Acute midline low back pain without sciatica M54.5 [facility] [address] [place] [id number] [place] [address] 95054- 1923 Jun, [facility] [address] [place] [id number] [place] [address] 57662- 4086 May, [facility] [address] [place] [id number] [place] [address] 39726- 3061 May, Hypothyroidism, unspecified E03.9 ; Chronic pain syndrome G89.4 ; Hyperglycemia R73.9 ; Encounter for immunization Z23 and Mixed hyperlipidemia E78.2 [facility] [address] [place] [id number] [place] [address] 87771- 8066 Apr, Fatigue 780.79 [facility] [id number] [place] [address] 76458- 3795 Apr, Chronic pain syndrome G89.4 [facility] [address] [address]- 1876 Mar, [facility] [address] [place] [id number] [place] [address] 37741- 4037 Mar, Chronic pain syndrome G89.4 [facility] [address] [place] [id number] [place] [address] 03130- 6018 Jan, [facility] [address] [place] [id number] [place] [address] 61278- 7766 Dec, [facility] [address] [place] [id number] [place] [address] 65144- 4058 Dec, Chronic pain syndrome G89.4 [facility] [address] [place] [id number] [place] [address] 12330- 4936 Dec, Trigger point M79.2 [facility] [address] [place] [id number] [place] [address] 75456- 5633 Nov, Chronic pain syndrome G89.4 [facility] [id number] [place] [address] 51136- 8035 Oct, Chronic pain syndrome G89.4 [facility] [address] [place] [id number] [place] [address] 29564- 1401 Oct, Irritant contact dermatitis due to detergent L24.0 [facility] [id number] [place] [address] 34398- 1488 September, Hypothyroidism, unspecified E03.9 and Depression, unspecified depression type F32.9 [facility] [id number] [place] [address] 56263- 8239 September, Chronic pain syndrome G89.4 [facility] [address] [place] [id number] [place] [address] 64977- 3132 Aug, [facility] [address] [address]- 1903 Aug, Trigger point M79.2 [facility] [address] [place] [address] 27686- 1970 Jul, Chronic pain syndrome G89.4 and nursing home 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.891 [facility] [address] [place] [id number] [place] [address] 850395- 0743 Jul, Chronic pain syndrome G89.4 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 [facility] [address] [place] [address] 32978- 8738 Jul, [facility] [address] [place] [address] 86866- 9217 Jul, [facility] [address] [place] [id number] [place] [address] 47778- 1124 Jun, [facility] [id number] [place] [address] 39870- 3383 May, [facility] [id number] [place] [address] 81877- 8606 May, [facility] [address] [address]- 4875 May, [facility] [id number] [place] [address] 31581- 3252 May, Pneumonia, organism unspecified, unspecified laterality, unspecified part of lung J18.9 [facility] [address] [address]- 6379 May, Pneumonia, organism unspecified, unspecified laterality, unspecified part of lung J18.9 [facility] [address] [address]- 5248 Apr, [facility] [address] [place] [id number] [place] [address] 00259- 4808 Apr, [facility] [address] [address]- 7060 Apr, [facility] [address] [place] [id number] [place] [address] 745842- 3805 Apr, [facility] [address] [place] [id number] [place] [address] 84778- 1059 Apr, [facility] [address] [place] [id number] [place] [address] 67996- 6769 Apr, Epigastric pain R10.13 [facility] [address] [place] [id number] [place] [address] 98902- 1895 Mar, Tinea pedis B35.3 and Contact dermatitis and eczema due to detergents L24.0 [facility] [address] [place] [id number] [place] [address] 61418- 1340 Mar, [facility] [address] [place] [id number] [place] [address] 24649- 0977 Jan, [facility] [address] [place] [id number] [place] [address] 17939- 4415 Jan, [facility] [address] [place] [id number] [place] [address] 32253- 6334 Jan, [facility] [id number] [place] [address] 87824- 1362 Dec, [facility] [address] [place] [id number] [place] [address] 03761- 5397 Nov, [facility] [address] [place] [address] 07174- 5587 Nov, Fatigue 780.79 [facility] [address] [place] [id number] [place] [address] 34763- 9635 Nov, [facility] [address] [address]- 0359 Nov, Unspecified myalgia and myositis 729.1 [facility] [address] [address]- 2287 Nov, Hypercalcemia 275.42 [facility] [address] [place] [id number] [place] [address] 06573- 1356 Nov, Fatigue 780.79 ; Bradycardia 427.89 ; Chronic pain 338.29 and Family history of diabetes mellitus V18.0 [facility] [address] [place] [id number] [place] [address] 013307- 2601 Nov, Fatigue 780.79 ; Chronic pain 338.29 ; Family history of diabetes mellitus V18.0 ; Bradycardia 427.89 ; Hypothyroid 244.9 and Anxiety 300.00 [facility] [address] [place] [id number] [place] [address] 726897- 1185 Oct, [facility] [address] [place] [id number] [place] [address] 34956- 7128 September, [facility] [address] [place] [id number] [place] [address] 85885- 6363 Aug, [facility] [address] [place] [id number] [place] [address] 78348- 4348 Aug, [facility] [address] [place] [id number] [place] [address] 47136- 8804 Aug, [facility] [address] [place] [id number] [place] [address] 04678- 0365 Jul, [facility] [address] [place] [id number] [place] [address] [id number]- 4886 Jul, [facility] [address] [place] [id number] [place] [address] 775314- 8760 Jul, [facility] [address] [place] [id number] [place] [address] 38666- 7183 Jul, [facility] [address] [place] [id number] [place] [address] 31826- 5309 Jun, [facility] [address] [address]- 2812 Jun, [facility] [address] [id number] [place] [address]- 1559 Jun, [facility] [place] [facility] [address] [id number] [place] [address]- 5483 Jun, [facility] [address] [id number] [place] [address]- 0594 Jun, [facility] [address] [id number] [place] [address]- 3079 Jun, [facility] [address] [id number] [place] [address]- 8192 May, [facility] [address] [id number] [place] [address]- 2024 May, [facility] [address] [id number] [place] [address]- 2576 May, [facility] [address] [id number] [place] [address]- 7436 May, [facility] [address] [id number] [place] [address]- 9548 May, [facility] [address] [id number] [place] [address]- 9581 15 May, 2014 [facility] [place] [facility] [address] [id number] [place] [address]- 9905 May, [facility] [address] [id number] [place] [address]- 7466 May, [facility] [place] [facility] [address] [id number] [place] 3553 May, [facility] [place] [facility] [address] [id number] [place] [address]- 4094 May, [facility] [place] [facility] [address] [id number] [place] 4430 Apr, [facility] [place] [facility] [address] [id number] [place] [address]- 1761 Apr, [facility] [place] [facility] [address] [id number] [place] [address]- 4381 Apr, [facility] [place] [facility] [address] [id number] [place] [address]- 7533 Apr, [facility] [place] [facility] [address] [id number] [place] [address]- 7751 Apr, [facility] [place] [facility] [address] [id number] [place] [address]- 8613 Apr, [facility] [place] [facility] [address] [id number] [place] [address]- 8468 Apr, [facility] [place] [facility] [address] [id number] [place] [address]- 3733 Apr, [facility] [place] [facility] [address] [id number], [place] [address]- 0619 Apr, [facility] [place] [facility] [address] [id number] [place] [address]- 9335 Apr, [facility] [place] [facility] [address] [id number], [place] [address]- 6938 Apr, [facility] [place] [facility] [address] [id number], [place] [address]- 1343 Apr, [facility] [place] [facility] [address] [id number], [place] [address]- 0127 11 Apr, 2014 [facility] [place] [facility] [address] [id number], [place] [address]- 6143 10 Apr, 2014 [facility] [place] [facility] [address] [id number], [place] [address]- 6477 10 Apr, 2014 [facility] [place] [facility] [address] [id number], [place] [address]- 9225 16 Mar, 2014 [facility] [place] [facility] [address] [id number], [place] [address]- 8319 Mar, [facility] [place] [facility] [address] [id number] [place] [address]- 0101 Mar, [facility] [place] [facility] [address] [id number] [place] [address]- 6529 16 Mar, 2014 [facility] [place] [facility] [address] [id number] [place] [address]- 7926 Jan, [facility] [place] [facility] [address] [id number] [place] [address]- 8435 Jan, [facility] [place] [facility] [address] [id number] [place] [address]- 3096 Jan, [facility] [place] [facility] [address] [id number] [place] [address]- 9050 Jan, [facility] [place] [facility] [address] [id number] [place] [address]- 9340 Jan, [facility] [place] [facility] [address] [id number] [place] [address]- 1039 Jan, [facility] [place] [facility] [address] [id number] [place] [address]- 3286 Dec, [facility] [place] [facility] [address] [id number] [place] [address]- 0859 Dec, [facility] [place] [facility] [address] [id number] [place] [address]- 4987 Dec, [facility] [place] [facility] [address] [id number], [place] [address]- 4081 Dec, [facility] [place] [facility] [address] [id number] [place] [address]- 1573 Nov, [facility] [place] [facility] [address] [id number] [place] [address]- 2257 Nov, [facility] [place] [facility] [address] [id number] [place] [address]- 3861 Nov, [facility] [place] [facility] [address] [id number] [place] [address]- 2914 Nov, [facility] [place] [facility] [address] [id number] [place] [address]- 9702 Oct, [facility] [place] [facility] [address] [id number] [place] [address]- 7374 Oct, [facility] [place] [facility] [address] [id number] [place] [address]- 9950 Oct, [facility] [place] [facility] [address] [id number] [place] [address]- 6515 Oct, [facility] [place] [facility] [address] [id number] [place] [address]- 8150 Oct, [facility] [place] [facility] [address] [id number] [place] [address]- 6155 Oct, [facility] [place] [facility] [address] [id number] [place] [address]- 0021 Oct, [facility] [place] [facility] [address] [id number] [place] [address]- 3130 Oct, [facility] [place] [facility] [address] [id number] [place] [address]- 5270 Oct, [facility] [place] [facility] [address] [id number] [place] [address]- 2710 Oct, [facility] [place] [facility] [address] [id number] [place] [address]- 3579 September, [facility] [place] [facility] [address] [id number] [place] [address]- 0782 September, [facility] [place] [facility] [address] [id number] [place] [address]- 9492 September, [facility] [place] [facility] [address] [id number] [place] [address]- 6533 September, [facility] [place] [facility] [address] [id number] [place] [address]- 3778 September, [facility] [place] [facility] [address] [id number] [place] [address]- 1824 September, [facility] [place] [facility] [address] [id number] [place] [address] September, [facility] [place] [facility] [address] [id number] [place] [address] September, [facility] [place] [facility] [address] [id number] [place] [address] September, [facility] [place] [facility] [address] [id number] [place] [address] Aug, [facility] [place] [facility] [address] [id number] [place] [address] Aug, [facility] [place] [facility] [address] [id number] [place] [address] Aug, [facility] [place] [facility] [address] [id number] [place] [address] Aug, [facility] [place] [facility] [address] [id number] [place] [address] Aug, [facility] [place] [facility] [address] [id number] [place] [address] Aug, [facility] [place] [facility] [address] [id number] [place] [address] Aug, [facility] [place] [facility] [address] [id number] [place] [address] Aug, [facility] [place] [facility] [address] [id number] [place] [address] Jul, [facility] [place] [facility] [address] [id number] [place] [address] Jul, [facility] [place] [facility] [address] [id number] [place] [address] Jul, [facility] [place] [facility] [address] [id number] [place] [address] 24 Jul, 2013 [facility] [place] [facility] [address] [id number] [place] [address]- [address] 24 Jul, 2013 [facility] [place] [facility] [address] [id number] [place] [address] Jul, [facility] [place] [facility] [address] [id number] [place] [address] Jul, [facility] [place] [facility] [address] [id number] [place] [address] 18 Jul, 2013 [facility] [place] [facility] [address] [id number] [place] [address]- [address] 18 Jul, 2013 [facility] [place] [facility] [address] [id number] [place] [address] 17 Jul, 2013 [facility] [place] [facility] [address] [id number] [place] [address]- [address] 17 Jul, 2013 [facility] [place] [facility] [address] [id number] [place] [address]- [address] Jul, [facility] [place] [facility] [address] [id number] [place] [address] Jul, [facility] [place] [facility] [address] [facility] [id number] [place] [address]- [address] 05 Jul, 2013 [facility] [place] [facility] [address] [id number] [place] [address]- [address] 05 Jul, 2013 [facility] [place] [facility] [address] [id number] [place] [address]- [address] 10 Jul, 2013 [facility] [place] [facility] [address] [id number] [place] [address]- [address] 10 Jul, 2013 [facility] [place] [facility] [address] [id number] [place] [address] 05 Jul, 2013 [facility] [place] [facility] [address] [id number] [place] [address] Jul, [facility] [place] [facility] [address] [id number] [place] [address] Jun, [facility] [place] [facility] [address] [id number] [place] [address] Jun, [facility] [place] [facility] [address] [id number] [place] [address] May, [facility] [place] [facility] [address] [id number] [place] [address] May, [facility] [place] [facility] [address] [id number] [place] [address] Apr, [facility] [place] [facility] [address] [id number] [place] [address]646 Apr, [facility] [place] [facility] [address] [id number] [place] [address] 120[address] Apr, [facility] [place] [facility] [address] [id number], [place] [address] Apr, [facility] [place] [facility] [address] [id number] [place] [address]- [address]69 Apr, [facility] [place] [facility] [address] [id number], [place] [address] Apr, [facility] [place] [facility] [address] [id number], [place] [address]- 2013 Mar, [facility] [place] [facility] [address] [id number], [place] [address] Mar, [facility] [place] [facility] [address] [id number], [place] [address] Mar, [facility] [place] [facility] [address] [id number], [place] [address] Mar, [facility] [place] [facility] [address] [id number], [place] [address]- [address] 19 Jan, 2013 [facility] [place] [facility] [address] [id number], [place] [address] Jan, [facility] [place] [facility] [address] [id number] [place] [address] Jan, [facility] [place] [facility] [address] [id number] [place] [address] Dec, [facility] [place] [facility] [address] [id number] [place] [address] Dec, [facility] [place] [facility] [address] [id number] [place] [address] Dec, [facility] [place] [facility] [address] [id number] [place] [address] Dec, [facility] [place] [facility] [address] [id number] [place] [address] Nov, [facility] [place] [facility] [address] [id number] [place] [address] Nov, [facility] [place] [facility] [address] [id number] [place] [address] Nov, [facility] [place] [facility] [address] [id number] [place] [address] Oct, [facility] [place] [facility] [address] [id number] [place] [address] Oct, [facility] [place] [facility] [address] [id number] [place] [address] Oct, [facility] [place] [facility] [address] [id number] [place] [address] Oct, [facility] [place] [facility] [address] [id number] [place] [address] Oct, [facility] [place] [facility] [address] [id number] [place] [address] Oct, [facility] [place] [facility] [address] [id number] [place] [address] September, [facility] [place] [facility] [address] [id number] [place] [address] Jul, [facility] [place] [facility] [address] [id number] [place] [address] Jul, [facility] [place] [facility] [address] [id number] [place] [address] Jul, [facility] [place] [facility] [address] [id number] [place] [address] Jul, [facility] [place] [facility] [address] [id number] [place] [address] Jul, [facility] [place] [facility] [address] [id number] [place] [address] Jul, [facility] [place] [facility] [address] [id number] [place] [address] Jun, [facility] [place] [facility] [address] [id number] [place] [address] Apr, [facility] [place] [facility] [address] [id number] [place] [address] Apr, [facility] [place] [facility] [address] [id number] [place] [address] Jan, [facility] [place] [facility] [address] [id number] [place] [address] Dec, [facility] [place] [facility] [address] [id number] [place] [address] Nov, [facility] [place] [facility] [address] [id number] [place] [address] Oct, [facility] [place] [facility] [address] [id number] [place] [address] September, [facility] [place] [facility] [address] [id number] [place] [address] September, [facility] [place] [facility] [address] [id number] [place] [address] Jul, [facility] [address] [id number] [place] [address] Jul, [facility] [place] [facility] [address] [id number] [place] [address] 28 Jul, 2011 [facility] [place] [facility] [address] [facility] [id number] [place] [address] Jul, [facility] [place] [facility] [address] [facility] [id number] [place] [address] Jul, [facility] [place] [facility] [address] [facility] [id number] [place] [address] 17 Jul, 2011 [facility] [place] [facility] [address] [facility] [id number] [place] [address] 13 Jul, 2011 [facility] [place] [facility] [id number] [address] Jul, [facility] [place] [facility] [address] [facility] [id number] [place] [address] 08 Jul, 2011 [facility] [place] [facility] [address] [facility] [id number] [place] [address] 07 Jul, 2011 [facility] [place] [facility] [address] [facility] [id number] [place] [address] Jun, [facility] [place] [facility] [address] [facility] [id number] [place] [address] May, [facility] [place] [facility] [address] [facility] [id number] [place] [address] May, [facility] [place] [facility] [address] [facility] [id number] [place] [address] May, [facility] [place] [facility] [address] [facility] [id number] [place] [address] Apr, [facility] [place] [facility] [address] [facility] [id number] [place] [address] Apr, [facility] [place] [facility] [address] [id number] [address] Mar, [facility] [id number] [place] [address] Mar, [facility] [address] [facility] [id number], [place] [address] Mar, [facility] [id number] [address] Mar, [facility] [address] [facility] [id number], [place] [address] Mar, [facility] [id number] [address] September, [facility] [id number], [place] [address] Mar, [facility] [id number] [place] [address] Dec, [facility] [id number], [place] [address] May, [facility] [id number], [place] [address] May, IMMUNIZATIONS No Known Immunizations SOCIAL HISTORY Never Assessed REASON FOR VISIT Med review. Pt had missed a couple of appt's and so she needs pain med filled. PACO Hartmann PLAN OF CARE Activity Details Follow Up 4 Weeks Reason:depression VITAL SIGNS Height 63 in 2016-12-22 Weight 164.8 lbs 2016-12-22 Temperature 98.6 degrees Fahrenheit 2016-12-22 Heart Rate 72 bpm 2016-12-22 Respiratory Rate 20 2016-12-22 BMI 29.19 kg/m2 2016-12-22 Blood pressure systolic 120 mmHg 2016-12-22 Blood pressure diastolic 92 mmHg 2016-12-22 MEDICATIONS Medication Instructions Dosage Frequency Start Date End Date Duration Status Hydrocodone-Acetaminophen 10-325 MG Orally 3 times a day 1 tablet 8h NovDec, 17 days Active Oxygen Active Levothyroxine Sodium 125 MCG Orally Once a day 1 tablet 24h 30 days Active Albuterol Sulfate (2.5 MG/3ML) 0.083% Inhalation 4 times a day 3 ml 6h May, 30 days Active Neurontin 600 MG Orally Three times a day 1 capsule at hs x 4 days, then 1 capsule BID x 4 days, then 1 capsule 3 times daily 8h Aug, 30 days Active Effexor XR 150 MG Orally Once a day 1 capsule with food 24h 30 days Active Simvastatin 40 mg Orally Once a day 1 tablet in the evening 24h May, Active RESULTS No Results PROCEDURES No Known procedures INSTRUCTIONS MEDICATIONS ADMINISTERED No Known Medications MEDICAL (GENERAL) HISTORY Type Description Date Medical History hypothyroidism Medical History anxiety Medical History chronic back pain Medical History hypercholesterolemia Medical History bronchitis Surgical History hysterectomy 2010 Surgical History revision of the mesh sling 2011 Surgical History cholecystectomy Surgical History tonsilectomy Surgical History L knee tumor removal Hospitalization History surgeries
--- OUTSIDE RECORDS SUMMARY | 2017-11-10 19:38 | XMS REPORT ---
Author Author CEDRICK BARCENAS Organization [facility] Address [address] [place] [address] Care Team Providers Care Law Firm Receptionist Name Role Phone CEDRICK BARCENAS Unavailable PROBLEMS Type Condition ICD9-CM Code KCL45-YO Code Onset Dates Condition Status SNOMED Code Problem senior care 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.891 Active 811852126 Problem Depression, unspecified depression type F32.9 Active 08245757 Problem Chronic pain syndrome G89.4 Active 154591944 Problem Chronic tension-type headache, intractable G44.221 Active 941236015 Problem Generalized anxiety disorder F41.1 Active 01709875 Problem Mixed hyperlipidemia E78.2 Active 222540189 Problem Hypothyroidism, unspecified E03.9 Active 22663859 Problem Major depressive disorder, recurrent episode, moderate F33.1 Active 739471812 Problem Anxiety F41.9 Active 99898156 ALLERGIES No Information ENCOUNTERS Encounter Location Date Diagnosis [place] [address] [address] September, [place] [address] [address]- [address] September, Chronic pain syndrome G89.4 [place] [address] 11060- 0738 Aug, Red stool R19.5 [place] [address] [address] [place] [id number] [place] [address] 06511- 8906 Aug, Depression, unspecified depression type F32.9 ; Chronic pain syndrome G89.4 ; Chronic tension-type headache, intractable G44.221 ; Red stool R19.5 ; Hypothyroidism, unspecified E03.9 and Mixed hyperlipidemia E78.2 [place] [address] 84212- 2756 Jul, Major depressive disorder, recurrent episode, moderate F33.1 [facility] [address] [place] [id number] [place] [address] 56286- 4684 Jul, [facility] [address] [place] [id number] [place] [address] 55862- 7962 Jul, Hypothyroidism, unspecified E03.9 [facility] [address] 61718- 4070 Jul, Hypothyroidism, unspecified E03.9 [facility] [address] [place] [id number] [place] [address] 87351- 2750 Jul, Mixed hyperlipidemia E78.2 [place] [address] [place] [id number] [place] [address] 48045- 3012 Jul, Mixed hyperlipidemia E78.2 [facility] [address] [place] [id number] [place] [address] 91297 -2064 Jul, Bronchitis J40 ; Cough R05 and Wheezing R06.2 [place] [address] [address] [place] [id number] [place] [address] 51405- 4168 Jul, Major depressive disorder, recurrent episode, moderate F33.1 and Generalized anxiety disorder F41.1 [place] [address] [place] [id number] [place] [address] 96040- 5566 Jul, [place] [address] [place] [id number] [place] [address] 60598- 7535 Jul, Major depressive disorder, recurrent episode, moderate F33.1 and Generalized anxiety disorder F41.1 [place] [address] [address] [place] [id number] [place] [address] 09810- 3126 Jul, Generalized anxiety disorder F41.1 and Major depressive disorder, recurrent episode, moderate F33.1 [place] [address] [place] [id number] [place] [address] 76021- 6204 Jul, Mixed hyperlipidemia E78.2 [facility] [address] [place] [id number] [place] [place] [address] 61547- 2987 Jun, Depression, unspecified depression type F32.9 ; Cervicalgia M54.2 ; Trigger point M79.1 ; Hypothyroidism, unspecified E03.9 ; Screening, lipid Z13.220 and Mixed hyperlipidemia E78.2 [place] [address] 58571- 6360 Jun, [place] [address] 69725- 6735 May, [place] [address] 60162- 2343 Apr, Acute bronchitis due to other specified organisms J20.8 and Tobacco abuse counseling Z71.6 [place] [address] 70076- 2162 Mar, Depression, unspecified depression type F32.9 [place] [address] 18047- 6332 Jan, Chronic pain syndrome G89.4 [place] [address] 38185- 6145 Nov, Anxiety F41.9 ; Depression, unspecified depression type F32.9 and Chronic pain syndrome G89.4 [place] [address] 81368- 2219 Oct, Anxiety F41.9 and Hypothyroidism, unspecified E03.9 [facility] [address] 28942 -8598 Oct, Left foot pain M79.672 and Contusion of left foot, 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 S90.32XA [place] [address] 84674- 2241 Oct, [place] [address] 03001- 9226 September, Cervicalgia M54.2 [place] [address] [place] [address]- 1392 September, [facility] [address] [place] [id number] [place] [address] 34963- 7385 Aug, Cervicalgia M54.2 [facility] [address] [place] [id number] [place] [address] 15937- 2410 Aug, Cervicalgia M54.2 and Left arm numbness R20.0 [facility] [address] [place] [id number] [place] [place] [address] 34038- 9744 Aug, [facility] [address] [place] [id number] [place] [address] 84067- 4916 Aug, [facility] [address] [place] [id number] [place] [address] 87140- 4840 Jul, [facility] [address] [place] [id number] [place] [address] 88130- 1042 Jul, [facility] [address] [place] [id number] [place] [address] 51048- 1122 Jul, [facility] [address] [place] [id number] [place] [address] 13804- 1494 Jul, Acute midline low back pain without sciatica M54.5 [facility] [address] [place] [id number] [place] [address] 56214- 7194 Jun, Acute midline low back pain without sciatica M54.5 [facility] [address] [place] [id number] [place] [address] 65247- 2783 Jun, Chronic pain syndrome G89.4 and Muscle spasm M62.838 [facility] [address] [place] [id number] [place] [address] 08444- 0159 Jun, [facility] [address] [place] [id number] [place] [address] 98398- 6689 Jun, Acute midline low back pain without sciatica M54.5 [facility] [address] [place] [id number] [place] [address] 99717- 2552 Jun, [facility] [address] [place] [id number] [place] [address] 96614- 5346 May, [facility] [address] 39233- 8338 May, Hypothyroidism, unspecified E03.9 ; Chronic pain syndrome G89.4 ; Hyperglycemia R73.9 ; Encounter for immunization Z23 and Mixed hyperlipidemia E78.2 [facility] [address] 47366- 8209 Apr, Fatigue 780.79 [facility] [address] 71771- 8275 Apr, Chronic pain syndrome G89.4 [facility] [address] [place] [id number] [place] [address] 06369- 4844 Mar, [facility] [address] 36795- 6421 Mar, Chronic pain syndrome G89.4 [facility] [address] [place] [id number] [place] [address] 36616- 2004 Jan, [facility] [address] [place] [id number] [place] [address] 13144- 4891 Dec, [facility] [address] [place] [id number] [place] [address] 44531- 7078 Dec, Chronic pain syndrome G89.4 [facility] [address] [place] [id number] [place] [address] 83213- 3485 Dec, Trigger point M79.2 [facility] [address] [place] [id number] [place] [address] 85548- 9848 Nov, Chronic pain syndrome G89.4 [facility] [address] [place] [id number] [place] [address] 33884- 9821 Oct, Chronic pain syndrome G89.4 [facility] [address] [place] [id number] [place] [address] 53346- 8635 Oct, Irritant contact dermatitis due to detergent L24.0 [facility] [address] [place] [address] 80265- 1382 September, Hypothyroidism, unspecified E03.9 and Depression, unspecified depression type F32.9 [facility] [address] [place] [id number] [place] [address] 46293- 2896 September, Chronic pain syndrome G89.4 [facility] [address] [place] [id number] [place] [address] 35238- 7963 Aug, [facility] [address] [place] [id number] [place] [address] 42485- 3161 Aug, Trigger point M79.2 [facility] [address] [place] [id number] [place] [address] 54310- 4180 Jul, Chronic pain syndrome G89.4 and senior care 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.891 [place] [address] [place] [id number] [place] [address] 73074- 1370 Jul, Chronic pain syndrome G89.4 and emt intermediate 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.891 [facility] [address] [place] [id number] [place] [address] 84102- 1989 Jul, [facility] [address] [place] [id number] [place] [address] 27540- 3081 Jul, [facility] [address] [place] [id number] [place] [address] 05713- 4373 Jun, [facility] [address] [place] [id number] [place] [address] 11580- 4248 May, [facility] [address] 604866- 9768 May, [facility] [address] [place] [id number] [place] [address] 136324- 6919 May, [facility] [address] [place] [id number] [place] [address] 17251- 6422 May, Pneumonia, organism unspecified, unspecified laterality, unspecified part of lung J18.9 [facility] [address] [address]- 2013 May, Pneumonia, organism unspecified, unspecified laterality, unspecified part of lung J18.9 [facility] [address] [address]- 9963 Apr, [facility] [address] [place] [id number] [place] [address] 82391- 7546 Apr, [facility] [address] [place] [address] 21100- 1968 Apr, [facility] [address] [place] [id number] [place] [address] 13303- 5631 Apr, [facility] [address] [place] [id number] [place] [address] 90911- 0022 Apr, [facility] [address] [place] [id number] [place] [address] 52138- 2107 Apr, Epigastric pain R10.13 [facility] [address] [place] [id number] [place] [address] 80523- 5872 Mar, Tinea pedis B35.3 and Contact dermatitis and eczema due to detergents L24.0 [facility] [address] [address]- 6512 Mar, [facility] [id number] [place] [address] 18780- 8373 Jan, [facility] [address] [place] [address] 14707- 7163 Jan, [facility] [address] [place] [id number] [place] [address] 08780- 0452 Jan, [facility] [address] [place] [address] 99594- 4206 Dec, [facility] [address] [place] [id number] [place] [address] 71917- 3419 Nov, [facility] [address] [place] [id number] [place] [address] 40176- 6356 Nov, Fatigue 780.79 [facility] [address] [place] [id number] [place] [address] 88146- 9538 Nov, [facility] [address] [place] [id number] [place] [address] 19716- 5106 Nov, Unspecified myalgia and myositis 729.1 [facility] [address] [place] [id number] [place] [address] 91412- 8909 Nov, Hypercalcemia 275.42 [facility] [address] 17134- 4754 Nov, Fatigue 780.79 ; Bradycardia 427.89 ; Chronic pain 338.29 and Family history of diabetes mellitus V18.0 [facility] [address] [place] [id number] [place] [place] [address] 89604- 1898 Nov, Fatigue 780.79 ; Chronic pain 338.29 ; Family history of diabetes mellitus V18.0 ; Bradycardia 427.89 ; Hypothyroid 244.9 and Anxiety 300.00 [facility] [address] [place] [place] [address] 53959- 3187 Oct, [facility] [address] [place] [id number] [place] [address] 75568- 5416 September, [facility] [address] [place] [id number] [place] [address] 34543- 6254 Aug, [facility] [address] [place] [id number] [place] [address] 66897- 5353 Aug, [facility] [address] [place] [id number] [place] [address] 84189- 2681 Aug, [facility] [address] [place] [place] [address] 536577- 3019 Jul, [facility] [address] [place] [id number] [place] [address] [place] [address]- 1567 Jul, [facility] [place] [facility] [address] [id number] [place] [address]- 5908 Jul, [facility] [place] [facility] [address] [id number] [place] [address]- 8938 Jul, [facility] [place] [facility] [address] [id number] [place] [address]- 3586 Jun, [facility] [place] [facility] [address] [id number] [place] [address]- 1929 Jun, [facility] [place] [facility] [address] [id number] [place] [address]- 7520 Jun, [facility] [place] [facility] [address] [id number] [place] [address]- 2581 Jun, [facility] [place] [facility] [address] [id number] [place] [address]- 6203 Jun, [facility] [place] [facility] [address] [id number] [place] [address]- 4167 Jun, [facility] [place] [facility] [address] [id number] [place] [address]- 3156 May, [facility] [place] [facility] [address] [id number] [place] [address]- 6195 May, [facility] [place] [facility] [address] [id number] [place] [address]- 1581 May, [facility] [place] [facility] [address] [id number] [place] [address]- 6368 May, [facility] [place] [facility] [address] [id number] [place] [address]- 1293 May, [facility] [place] [facility] [address] [id number] [place] [address]- 2578 May, [facility] [place] [facility] [address] [id number] [place] [address]- 0034 May, [facility] [place] [facility] [address] [id number] [place] [address]- 9636 May, [facility] [place] [facility] [address] [id number] [place] [address]- 0881 May, [facility] [place] [facility] [address] [id number] [place] [address]- 4360 May, [facility] [place] [facility] [address] [id number] [place] [address]- 5584 Apr, [facility] [place] [facility] [address] [id number] [place] [address]- 1703 Apr, [facility] [place] [facility] [address] [id number] [place] [address]- 3041 Apr, [facility] [place] [facility] [address] [id number] [place] [address]- 4087 Apr, [facility] [place] [facility] [address] [id number] [place] [address]- 2254 Apr, [facility] [place] [facility] [address] [id number] [place] [address]- 6395 Apr, [facility] [place] [facility] [address] [id number] [place] [address]- 0610 Apr, [facility] [place] [facility] [address] [id number] [place] [address]- 1031 Apr, [facility] [place] [facility] [address] [id number] [place] [address]- 2872 17 Apr, 2014 [facility] [place] [facility] [address] [id number] [place] [address]- 9732 17 Apr, 2014 [facility] [place] [facility] [address] [id number] [place] [address]- 8785 13 Apr, 2014 [facility] [place] [facility] [address] [id number] [place] [address]- 0715 13 Apr, 2014 [facility] [place] [facility] [address] [id number] [address]- 8758 Apr, [facility] [place] [facility] [address] [id number] [place] [address]- 4254 Apr, [facility] [place] [facility] [address] [id number] [place] [address]- 7400 Apr, [facility] [place] [facility] [address] [id number] [place] [address]- 1390 16 Mar, 2014 [facility] [place] [facility] [address] [id number] [place] [address]- 5822 Mar, [facility] [place] [facility] [address] [id number] [place] [address]- 5679 Mar, [facility] [place] [facility] [address] [id number] [place] [address]- 1450 Mar, [facility] [place] [facility] [address] [id number] [place] [address]- 3213 Jan, [facility] [place] [facility] [address] [id number] [place] [address]- 0370 Jan, [facility] [place] [facility] [address] [id number] [place] [address]- 6202 18 Jan, 2014 [facility] [place] [facility] [address] [id number] [place] [address]- 6481 Jan, [facility] [place] [facility] [address] [id number] [place] [address]- 1900 Jan, [facility] [place] [facility] [address] [id number], [place] [address]- 0400 Jan, [facility] [place] [facility] [address] [id number] [place] [address]- 5091 Dec, [facility] [place] [facility] [address] [id number] [place] [address]- 5465 Dec, [facility] [place] [facility] [address] [id number] [place] [address]- 5936 Dec, [facility] [place] [facility] [address] [id number] [place] [address]- 1529 Dec, [facility] [place] [facility] [address] [id number] [place] [address]- 5146 Nov, [facility] [place] [facility] [address] [id number] [place] [address]- 1478 Nov, [facility] [place] [facility] [address] [id number] [place] [address]- 9749 Nov, [facility] [place] [facility] [address] [id number] [place] [address]- 8667 Nov, [facility] [place] [facility] [address] [id number] [place] [address]- 6142 Oct, [facility] [place] [facility] [address] [id number] [place] [address]- 5672 Oct, [facility] [place] [facility] [address] [id number] [place] [address]- 6683 Oct, [facility] [place] [facility] [address] [id number] [place] [address]- 8993 Oct, [facility] [place] [facility] [address] [id number] [place] [address]- 5919 Oct, [facility] [place] [facility] [address] [id number] [place] [address]- 5755 Oct, [facility] [place] [facility] [address] [id number] [place] [address]- 6328 Oct, [facility] [place] [facility] [address] [id number] [place] [address]- 5984 Oct, [facility] [place] [facility] [address] [id number] [place] [address]- 7816 Oct, [facility] [place] [facility] [address] [id number] [place] [address]- 2425 Oct, [facility] [place] [facility] [address] [id number] [place] [address]- 3000 September, [facility] [address] [id number] [place] [address]- 9949 September, [facility] [place] [facility] [address] [id number] [place] [address]- 8580 September, [facility] [place] [facility] [address] [id number] [place] [address]- 7396 September, [facility] [place] [facility] [address] [id number] [place] [address]- 5967 September, [facility] [place] [facility] [address] [id number] [place] [address]- 0295 September, [facility] [place] [facility] [address] [id number] [place] [address]- 2062 September, [facility] [place] [facility] [address] [id number] [place] [address]- 8783 September, [facility] [place] [facility] [address] [id number] [place] [address]- 3961 September, [facility] [place] [facility] [address] [id number] [place] [address]- 1941 Aug, [facility] [place] [facility] [address] [id number] [place] [address]- 8385 Aug, [facility] [place] [facility] [address] [id number] [place] [address]- 8314 Aug, [facility] [place] [facility] [address] [id number] [place] [address]- 3934 Aug, [facility] [place] [facility] [address] [id number] [place] [address]- 6393 Aug, [facility] [place] [facility] [address] [id number] [place] [address]- 1072 Aug, [facility] [place] [facility] [address] [id number] [place] [address]- 4478 Aug, [facility] [place] [facility] [address] [id number] [place] [address]- 8956 02 Aug, 2013 [facility] [place] [facility] [address] [id number] [place] [address]- 4294 Jul, [facility] [place] [facility] [address] [id number] [place] [address] Jul, [facility] [place] [facility] [address] [id number] [place] [address] Jul, [facility] [place] [facility] [address] [id number] [place] [address] 24 Jul, 2013 [facility] [place] [facility] [address] [id number] [place] [address] 24 Jul, 2013 [facility] [place] [facility] [address] [id number] [place] [address] Jul, [facility] [place] [facility] [address] [id number] [place] [address] Jul, [facility] [place] [facility] [address] [id number] [place] [address] 18 Jul, 2013 [facility] [place] [facility] [address] [id number] [place] [address]- [address] 18 Jul, 2013 [facility] [place] [facility] [address] [id number] [place] [address] 17 Jul, 2013 [facility] [place] [facility] [address] [id number] [place] [address]- [address] 17 Jul, 2013 [facility] [place] [facility] [address] [id number] [place] [address]- [address] 13 Jul, 2013 [facility] [place] [facility] [address] [id number] [place] [address]- [address] 13 Jul, 2013 [facility] [place] [facility] [address] [id number] [place] [address] 05 Jul, 2013 [facility] [place] [facility] [address] [id number] [place] [address]- [address] 05 Jul, 2013 [facility] [place] [facility] [address] [id number] [place] [address]- [address] 10 Jul, 2013 [facility] [place] [facility] [address] [id number] [place] [address]- [address] Jul, [facility] [place] [facility] [address] [id number] [place] [address]- [address] Jul, [facility] [place] [facility] [address] [id number] [place] [address] Jul, [facility] [place] [facility] [address] [id number] [place] [address] Jun, [facility] [place] [facility] [address] [id number] [place] [address]- [address] Jun, [facility] [place] [facility] [address] [id number] [place] [address] May, [facility] [place] [facility] [address] [id number] [place] [address]- [address] May, [facility] [place] [facility] [address] [id number] [place] [address] Apr, [facility] [place] [facility] [address] [id number] [place] [address]- [address] Apr, [facility] [place] [facility] [address] [id number] [place] [address] Apr, [facility] [place] [facility] [address] [id number] [place] [address]- [address] Apr, [facility] [place] [facility] [address] [id number] [place] [address]- [address] Apr, [facility] [place] [facility] [address] [id number] [place] [address]- [address] Apr, [facility] [place] [facility] [address] [id number] [place] [address] Mar, [facility] [place] [facility] [address] [id number] [place] [address] Mar, [facility] [place] [facility] [address] [id number] [place] [address] Mar, [facility] [place] [facility] [address] [id number] [place] [address]- [address] Mar, [facility] [place] [facility] [address] [id number] [place] [address] Jan, [facility] [place] [facility] [address] [id number] [place] [address] Jan, [facility] [place] [facility] [address] [id number] [place] [address]- [address] Jan, [facility] [place] [facility] [address] [id number] [place] [address]- [address] Dec, [facility] [place] [facility] [address] [id number] [place] [address] Dec, [facility] [place] [facility] [address] [id number] [place] [address]- [address] Dec, [facility] [place] [facility] [address] [id number] [place] [address] Dec, [facility] [place] [facility] [address] [id number] [place] [address] Nov, [facility] [place] [facility] [address] [id number], [place] [address] Nov, [facility] [place] [facility] [address] [id number], [place] [address]- [address] Nov, [facility] [place] [facility] [address] [id number] [place] [address] Oct, [facility] [place] [facility] [address] [id number] [place] [address] Oct, [facility] [place] [facility] [address] [id number] [place] [address] Oct, [facility] [place] [facility] [address] [id number] [place] [address] 14 Oct, 2012 [facility] [address] [id number] [place] [address] Oct, [facility] [address] [id number] [place] [address] Oct, [facility] [address] [id number] [place] [address] September, [facility] [address] [id number] [place] [address] Jul, [facility] [address] [id number] [place] [address] Jul, [facility] [address] [id number] [place] [address] Jul, [facility] [address] [id number] [place] [address] Jul, [facility] [address] [id number] [place] [address] Jul, [facility] [address] [id number] [place] [address] Jul, [facility] [address] [id number] [place] [address] Jun, [facility] [address] [id number] [place] [address] Apr, [facility] [address] [id number] [place] [address] Apr, [facility] [address] [id number] [place] [address] 24 Jan, 2012 [facility] [address] [id number] [place] [address] Dec, [facility] [address] [id number] [place] [address] Nov, [facility] [address] [id number] [place] [address] Oct, [facility] [place] [facility] [address] [id number] [place] [address] September, [facility] [place] [facility] [address] [id number] [place] [address] September, [facility] [place] [facility] [address] [id number] [place] [address]696 Jul, [facility] [place] [facility] [address] [id number] [place] [address] Jul, [facility] [place] [facility] [address] [id number] [place] [address] Jul, [facility] [place] [facility] [address] [id number] [place] [address] Jul, [facility] [place] [facility] [address] [id number] [place] [address] Jul, [facility] [place] [facility] [address] [id number] [place] [address] Jul, [facility] [place] [facility] [address] [id number] [place] [address] Jul, [facility] [place] [facility] [address] [id number] [place] [address] Jul, [facility] [place] [facility] [address] [id number] [place] [address] Jul, [facility] [place] [facility] [address] [id number] [place] [address] Jul, [facility] [place] [facility] [address] [id number] [place] [address] Jun, [facility] [place] [facility] [address] [id number] [place] [address] May, [facility] [place] [facility] [address] [place] [address] May, [facility] [address] [facility] [id number], [place] [address] May, [facility] [address] [id number] [address] Apr, [facility] [address], [place] [address] Apr, [facility] [address] [facility] [id number], [place] [address] Mar, [facility] [id number] [place] [address] Mar, [facility] [id number] [place] [address] Mar, [facility] [id number] [place] [address] Mar, [facility] [id number], [place] [address] Mar, [facility] [id number] [place] [address] September, [facility] [address], [place] [address] Mar, [facility] [address], [place] [address] Dec, [facility] [address] [address] May, [facility] [address], [place] [address] May, IMMUNIZATIONS No Known Immunizations SOCIAL HISTORY Never Assessed REASON FOR VISIT Refill request PLAN OF CARE VITAL SIGNS MEDICATIONS Medication Instructions Dosage Frequency Start Date End Date Duration Status Effexor XR 150 MG Orally Once a day 1 capsule with food 24h 30 days Active RESULTS No Results PROCEDURES No [...]
--- OUTSIDE RECORDS SUMMARY | 2017-11-10 19:39 | XMS REPORT ---
Author Author CEDRICK BARCENAS [facility] Address [address] [place] [address] Care Team Providers Care Butcher Apprentice Name Role Phone CEDRICK BARCENAS Unavailable PROBLEMS Type Condition ICD9-CM Code [id number] Code Onset Dates Condition Status SNOMED Code Problem Anxiety F41.9 Active 24373524 Problem Mixed hyperlipidemia E78.2 Active 621096986 Problem Chronic pain syndrome G89.4 Active 117562826 Problem penitentiary 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.891 Active 708663787 Problem Hypothyroidism, unspecified E03.9 Active 30102321 Problem Depression, unspecified depression type F32.9 Active 34993742 ALLERGIES Substance Reaction Event Type Date Status Glucophage 1,000 Mg Tablet making pt feel funny Non Drug Allergy Jun, Active SOCIAL HISTORY Never Assessed PLAN OF CARE Activity Details Follow Up prn Reason: VITAL SIGNS Height 63 in 2016-07-01 Weight 155.5 lbs 2016-07-01 Temperature 98.8 degrees Fahrenheit 2016-07-01 Heart Rate 74 bpm 2016-07-01 Respiratory Rate 18 2016-07-01 BMI 27.54 kg/m2 2016-07-01 Blood pressure systolic 118 mmHg 2016-07-01 Blood pressure diastolic 78 mmHg 2016-07-01 MEDICATIONS Medication Instructions Dosage Frequency Start Date End Date Duration Status Percocet 10-325 MG Orally every 6 hrs 1 tablet as needed 6h Jun, Jul, 10 days Active Albuterol Sulfate (2.5 MG/3ML) 0.083% Inhalation 4 times a day 3 ml 6h May, 30 days Active Simvastatin 40 mg Orally Once a day 1 tablet in the evening 24h May, Active Baclofen 20 mg Orally every 8 hrs 1 tablet with food or milk 8h Jun, Jul, 10 days Active Effexor XR 75 MG Orally Once a day 1 capsule with food 24h 90 days Active Oxygen Active Levothyroxine Sodium 100 MCG Orally Once a day 1 tablet 24h 90 days Active RESULTS No Results PROCEDURES No [...]
--- OUTSIDE RECORDS SUMMARY | 2017-11-10 19:39 | XMS REPORT ---
Author Author CEDRICK BARCENAS Organization [facility] Address [address] [place] [address] Care Team Providers Care Outer Diameter Technician Name Role Phone CEDRICK BARCENAS Unavailable PROBLEMS Type Condition ICD9-CM Code [id number] Code Onset Dates Condition Status SNOMED Code Problem Anxiety F41.9 Active 32506642 Problem Mixed hyperlipidemia E78.2 Active 527872627 Problem Chronic pain syndrome G89.4 Active 924842501 Problem snf 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.891 Active 869416254 Problem Hypothyroidism, unspecified E03.9 Active 72135699 Problem Depression, unspecified depression type F32.9 Active 70249929 ALLERGIES No Information SOCIAL HISTORY Never Assessed PLAN OF CARE VITAL SIGNS MEDICATIONS Medication Instructions Dosage Frequency Start Date End Date Duration Status Hydrocodone-Acetaminophen 10-325 MG Orally 3 times a day 1 tablet 8h JulJul, 28 days Active RESULTS No Results PROCEDURES [...]
--- OUTSIDE RECORDS SUMMARY | 2017-11-10 19:40 | XMS REPORT ---
Author Author BRUCE CONNELL [facility] WALK IN [facility] Address [address] [place] [address] Care Team Providers Care Glass Presser Name Role Phone BRUCE CONNELL Unavailable PROBLEMS Type Condition ICD9-CM Code DAB19-HP Code Onset Dates Condition Status SNOMED Code Problem halfway 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.891 Active 350175684 Problem Chronic pain syndrome G89.4 Active 263233519 Problem Generalized anxiety disorder F41.1 Active 01768059 Problem Major depressive disorder, recurrent episode, moderate F33.1 Active 643024153 Problem Hypothyroidism, unspecified E03.9 Active 20695684 Problem Depression, unspecified depression type F32.9 Active 95744249 Problem Anxiety F41.9 Active 55035904 Problem Mixed hyperlipidemia E78.2 Active 345372062 ALLERGIES Substance Reaction Event Type Date Status Glucophage 1,000 Mg Tablet making pt feel funny Non Drug Allergy Oct, Active ENCOUNTERS Encounter Location Date Diagnosis [facility] [id number] [place] [address] 20482- 5154 Aug, [facility] [id number] [place] [address] 15732- 0980 14 Jul, 2017 Hypothyroidism, unspecified E03.9 [facility] [id number] [place] [address] 78456- 0080 Jul, Hypothyroidism, unspecified E03.9 [facility] [id number] [place] [address] 05407- 5618 08 Jul, 2017 Mixed hyperlipidemia E78.2 [facility] [id number] [place] [address] 38958- 1809 08 Jul, 2017 Mixed hyperlipidemia E78.2 [facility] [id number] [place] [address] 89311 -4308 Jul, Bronchitis J40 ; Cough R05 and Wheezing R06.2 [place] [facility] [id number] [place] [address] 61189- 4275 Jul, Major depressive disorder, recurrent episode, moderate F33.1 and Generalized anxiety disorder F41.1 [place] [address] 70364- 5953 Jul, [place] [address] 16889- 0900 Jul, Major depressive disorder, recurrent episode, moderate F33.1 and Generalized anxiety disorder F41.[address] 86386- 0817 Jul, Generalized anxiety disorder F41.1 and Major depressive disorder, recurrent episode, moderate F33.1 [place] [address] 95684- 2342 Jul, Mixed hyperlipidemia E78.2 [facility] [id number] [place] [address] 37632- 9795 Jun, Depression, unspecified depression type F32.9 ; Cervicalgia M54.2 ; Trigger point M79.1 ; Hypothyroidism, unspecified E03.9 ; Screening, lipid Z13.220 and Mixed hyperlipidemia E78.2 [facility] [id number] [place] [address] 22259- 6071 Jun, [facility] [id number] [place] [address] 78156- 9704 May, [place] [id number] [place] [address] 13152- 8279 Apr, Acute bronchitis due to other specified organisms J20.8 and Tobacco abuse counseling Z71.6 [facility] [id number] [place] [address] 36925- 4874 Mar, Depression, unspecified depression type F32.9 [place] [address] [place] [address] 7300 Jan, Chronic pain syndrome G89.4 [facility] [id number] [place] [address] 53889- 7220 Nov, Anxiety F41.9 ; Depression, unspecified depression type F32.9 and Chronic pain syndrome G89.4 [facility] [id number] [place] [address] 96333- 2562 Oct, Anxiety F41.9 and Hypothyroidism, unspecified E03.9 [facility] [id number] [place] [address] 16077 -9474 Oct, Left foot pain M79.672 and Contusion of left foot, 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 S90.32XA [facility] [id number] [place] [address] 07840- 1970 Oct, [facility] [address] 91328- 9088 September, Cervicalgia M54.2 [facility] [id number] [place] [address] 43529- 4037 September, [facility] [id number] [place] [address] 17801- 6922 Aug, Cervicalgia M54.2 [facility] [id number] [place] [address] 91828- 9236 Aug, Cervicalgia M54.2 and Left arm numbness R20.0 [facility] [id number] [place] [address] 45549- 4909 Aug, [facility] [id number] [place] [address] 31986- 8417 Aug, [facility] [id number] [place] [address] 40340- 7447 Jul, [facility] [id number] [place] [address] 07759- 4015 Jul, [place] [id number] [place] [address] 03060- 7066 Jul, [facility] [id number] [place] [address] 70739- 0214 Jul, Acute midline low back pain without sciatica M54.5 [facility] [id number] [place] [address] 68034- 3394 Jun, Acute midline low back pain without sciatica M54.5 [facility] [id number] [place] [address] 32891- 3003 Jun, Chronic pain syndrome G89.4 and Muscle spasm M62.838 [facility] [id number] [place] [address] 57332- 9962 Jun, [facility] [address] 84592- 1008 Jun, Acute midline low back pain without sciatica M54.5 [facility] [id number] [place] [address] 64047- 4467 Jun, [facility] [id number] [place] [address] 41258- 0908 May, [facility] [id number] [place] [address] 81321- 5686 May, Hypothyroidism, unspecified E03.9 ; Chronic pain syndrome G89.4 ; Hyperglycemia R73.9 ; Encounter for immunization Z23 and Mixed hyperlipidemia E78.2 [facility] [id number] [place] [address] 53434- 9490 Apr, Fatigue 780.79 [facility] [address] 89718- 8396 Apr, Chronic pain syndrome G89.4 [facility] [id number] [place] [address] 77599- 3988 Mar, [facility] [address] 43343- 9136 Mar, Chronic pain syndrome G89.4 [facility] [address] [address]- 9490 Jan, [facility] [address] [address]- 1077 Dec, [facility] [address] [place] [address] 26794- 2738 Dec, Chronic pain syndrome G89.4 [facility] [address] [place] [address] 82305- 3083 Dec, Trigger point M79.2 [facility] [id number] [place] [address] 68798- 4288 Nov, Chronic pain syndrome G89.4 [facility] [id number] [place] [address] 89707- 2972 Oct, Chronic pain syndrome G89.4 [facility] [id number] [place] [address] 19347- 6413 Oct, Irritant contact dermatitis due to detergent L24.0 [facility] [id number] [place] [address] 10283- 4715 September, Hypothyroidism, unspecified E03.9 and Depression, unspecified depression type F32.9 [facility] [address] [place] [address] 45538- 4294 September, Chronic pain syndrome G89.4 [facility] [address] [address]- 5731 Aug, [facility] [address] [place] [address] 40795- 9559 Aug, Trigger point M79.2 [facility] [address] [address]- 1788 Jul, Chronic pain syndrome G89.4 and halfway 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.891 [facility] [address] [address]- 9087 Jul, Chronic pain syndrome G89.4 and halfway 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.891 [facility] [address] [address]- 6623 Jul, [facility] [address] [address]- 9935 Jul, [facility] [address] [address]- 2408 Jun, [facility] [address] [address]- 3444 May, [facility] [id number] [address]- 8044 May, [facility] [address] [address]- 5836 May, [facility] [address] [address]- 4264 May, Pneumonia, organism unspecified, unspecified laterality, unspecified part of lung J18.9 [facility] [address] [address]- 7838 May, Pneumonia, organism unspecified, unspecified laterality, unspecified part of lung J18.9 [facility] [address] [address]- 1534 Apr, [facility] [address] [address]- 0940 Apr, [facility] [address] [address]- 9901 Apr, [facility] [address] [address]- 0770 Apr, [facility] [id number] [address]- 3677 Apr, [facility] [id number] [place] [address] 72022- 2051 Apr, Epigastric pain R10.13 [facility] [id number] [place] [address] 24593- 0255 Mar, Tinea pedis B35.3 and Contact dermatitis and eczema due to detergents L24.0 [facility] [id number] [place] [address] 97323- 4294 Mar, [facility] [id number] [place] [address] 59533- 0563 Jan, [facility] [address] 26487- 6044 Jan, [facility] [id number] [place] [address] 58617- 3772 Jan, [facility] [id number] [place] [address] 39051- 1089 Dec, [facility] [id number] [place] [address] 56674- 2261 Nov, [facility] [id number] [place] [address] 75924- 3884 Nov, Fatigue 780.79 [place] [id number] [place] [address] 53876- 0737 Nov, [facility] [id number] [place] [address] 41382- 9521 Nov, Unspecified myalgia and myositis 729.1 [place] [id number] [place] [address] 00729- 4845 Nov, Hypercalcemia 275.42 [facility] [id number] [place] [address] 936756- 1977 Nov, Fatigue 780.79 ; Bradycardia 427.89 ; Chronic pain 338.29 and Family history of diabetes mellitus V18.0 [place] [address] [address]- 8399 Nov, Fatigue 780.79 ; Chronic pain 338.29 ; Family history of diabetes mellitus V18.0 ; Bradycardia 427.89 ; Hypothyroid 244.9 and Anxiety 300.00 [facility] [address] [address]- 1996 Oct, [facility] [id number] [place] [address] 69406- 8277 September, [facility] [id number] 4683 Aug, [facility] [id number] [place] [address] 644230- 2805 Aug, [facility] [id number] [address]- 1041 Aug, [facility] [id number] [place] [address] 63149- 2500 Jul, [facility] [address] [address]- 2887 Jul, [facility] [address] [address]- 8486 Jul, [facility] [address] [address]- 4161 Jul, [facility] [address] [address]- 2680 Jun, [facility] [address] 3861 Jun, [facility] [id number] [address] 9405 Jun, [facility] [address] 2906 Jun, [facility] [address] [address]- 0551 Jun, [facility] [place] [facility] [address] [id number] [place] [address]- 1939 Jun, [facility] [place] [facility] [address] [id number] [place] [address]- 4016 May, [facility] [place] [facility] [address] [id number] [place] [address]- 1313 May, [facility] [place] [facility] [address] [id number] [place] [address]- 3849 May, [facility] [place] [facility] [address] [id number] [place] [address]- 3802 May, [facility] [place] [facility] [address] [id number] [place] [address]- 8531 May, [facility] [place] [facility] [address] [id number] [place] [address]- 3901 May, [facility] [place] [facility] [address] [id number] [place] [address]- 6608 May, [facility] [place] [facility] [address] [id number] [place] [address]- 1390 May, [facility] [place] [facility] [address] [id number] [place] [address]- 0502 May, [facility] [place] [facility] [address] [id number] [place] [address]- 0737 May, [facility] [place] [facility] [address] [id number] [address]- 4596 Apr, [facility] [place] [facility] [address] [id number] [place] [address]- 5405 Apr, [facility] [place] [facility] [address] [id number] [place] [address]- 2978 Apr, [facility] [place] [facility] [address] [id number] [place] [address]- 4536 Apr, [facility] [place] [facility] [address] [id number] [place] [address]- 6090 19 Apr, 2014 [facility] [place] [facility] [address] [id number] [place] [address]- 6566 19 Apr, 2014 [facility] [place] [facility] [address] [id number] [place] [address]- 4603 18 Apr, 2014 [facility] [place] [facility] [address] [id number] [place] [address]- 5309 18 Apr, 2014 [facility] [place] [facility] [address] [id number] [place] [address]- 7388 17 Apr, 2014 [facility] [place] [facility] [address] [id number] [place] [address]- 4935 17 Apr, 2014 [facility] [place] [facility] [address] [id number] [place] [address]- 9621 Apr, [facility] [place] [facility] [address] [id number] [place] [address]- 0094 Apr, [facility] [place] [facility] [address] [id number] [place] [address]- 3919 11 Apr, 2014 [facility] [place] [facility] [address] [id number] [place] [address]- 2111 10 Apr, 2014 [facility] [place] [facility] [address] [id number] [place] [address]- 0299 10 Apr, 2014 [facility] [place] [facility] [address] [id number] [place] [address]- 8908 16 Mar, 2014 [facility] [place] [facility] [address] [id number] [place] [address]- 1316 16 Mar, 2014 [facility] [place] [facility] [address] [id number] [place] [address]- 6236 16 Mar, 2014 [facility] [place] [facility] [address] [id number] [place] [address]- 1074 16 Mar, 2014 [facility] [place] [facility] [address] [id number] [place] [address]- 4266 Jan, [facility] [place] [facility] [address] [id number] [place] [address]- 1504 Jan, [facility] [place] [facility] [address] [id number] [place] [address]- 6211 Jan, [facility] [place] [facility] [address] [id number] [place] [address]- 2010 Jan, [facility] [place] [facility] [address] [id number] [place] [address]- 5373 Jan, [facility] [place] [facility] [address] [id number] [place] [address]- 7303 Jan, [facility] [place] [facility] [address] [id number] [place] [address]- 1693 Dec, [facility] [place] [facility] [address] [id number] [place] [address]- 7422 Dec, [facility] [place] [facility] [address] [id number] [place] [address]- 4234 Dec, [facility] [place] [facility] [address] [id number] [place] [address]- 9775 Dec, [facility] [place] [facility] [address] [id number] [place] [address]- 7736 Nov, [facility] [place] [facility] [address] [id number] [place] [address]- 5915 Nov, [facility] [place] [facility] [address] [id number] [place] [address]- 2926 Nov, [facility] [place] [facility] [address] [id number] [place] [address]- 4404 Nov, [facility] [place] [facility] [address] [id number] [place] [address]- 4162 Oct, [facility] [place] [facility] [address] [id number] [place] [address]- 5013 Oct, [facility] [place] [facility] [address] [id number] [place] [address]- 1687 Oct, [facility] [place] [facility] [address] [id number] [place] [address]- 1543 Oct, [facility] [place] [facility] [address] [id number] [place] [address]- 2554 Oct, [facility] [place] [facility] [address] [id number] [place] [address]- 1442 Oct, [facility] [place] [facility] [address] [id number] [place] [address]- 4515 Oct, [facility] [place] [facility] [address] [id number] [place] [address]- 6220 Oct, [facility] [place] [facility] [address] [id number] [place] [address]- 4560 Oct, [facility] [place] [facility] [address] [id number] [place] [address]- 0466 Oct, [facility] [place] [facility] [address] [id number] [place] [address]- 8530 September, [facility] [place] [facility] [address] [id number] [place] [address]- 5409 September, [facility] [place] [facility] [address] [id number] [place] [address]- 6811 September, [facility] [place] [facility] [address] [id number] [place] [address]- 9607 September, [facility] [place] [facility] [address] [id number] [place] [address]- 8103 September, [facility] [place] [facility] [address] [id number] [place] [address]- 0938 September, [facility] [place] [facility] [address] [id number] [place] [address]- 4919 September, [facility] [place] [facility] [address] [id number] [place] [address]- 8197 September, [facility] [place] [facility] [address] [id number] [place] [address]- 8582 September, [facility] [place] [facility] [address] [id number] [place] [address]- 4140 Aug, [facility] [place] [facility] [address] [id number] [place] [address]- 6846 Aug, [facility] [place] [facility] [address] [id number] [place] [address]- 2759 Aug, [facility] [place] [facility] [address] [id number] [place] [address]- 1012 Aug, [facility] [place] [facility] [address] [id number] [place] [address]- 3083 Aug, [facility] [place] [facility] [address] [id number] [place] [address]- 0179 Aug, [facility] [place] [facility] [address] [id number] [place] [address]- 2371 Aug, [facility] [place] [facility] [address] [id number] [place] [address]- 5141 Aug, [facility] [place] [facility] [address] [id number] [place] [address]- 8214 Jul, [facility] [place] [facility] [address] [id number] [place] [address]- 8254 Jul, [facility] [place] [facility] [address] [id number] [place] [address]- 3566 Jul, [facility] [place] [facility] [address] [id number] [place] [address]- 1589 Jul, [facility] [place] [facility] [address] [id number] [place] [address]- 8583 Jul, [facility] [place] [facility] [address] [id number] [place] [address]- 3117 Jul, [facility] [place] [facility] [address] [id number] [place] [address]- 5837 Jul, [facility] [place] [facility] [address] [id number] [place] [address]- 8752 18 Jul, 2013 [facility] [place] [facility] [address] [id number] [place] [address]- 2978 18 Jul, 2013 [facility] [place] [facility] [address] [id number] [place] [address] 17 Jul, 2013 [facility] [place] [facility] [address] [id number] [place] [address] 17 Jul, 2013 [facility] [place] [facility] [address] [id number] [place] [address] Jul, [facility] [place] [facility] [address] [id number] [place] [address] Jul, [facility] [place] [facility] [address] [id number] [place] [address] Jul, [facility] [place] [facility] [address] [id number] [place] [address] Jul, [facility] [place] [facility] [address] [id number] [place] [address] Jul, [facility] [place] [facility] [address] [id number] [place] [address] Jul, [facility] [place] [facility] [address] [id number] [place] [address] Jul, [facility] [place] [facility] [address] [id number] [place] [address] Jul, [facility] [place] [facility] [address] [id number] [place] [address] Jun, [facility] [place] [facility] [address] [id number] [place] [address] Jun, [facility] [place] [facility] [address] [id number] [place] [address] May, [facility] [place] [facility] [address] [id number] [place] [address] May, [facility] [address] [id number] [place] [address] Apr, [facility] [place] [facility] [address] [id number] [place] [address] Apr, [facility] [address] [id number] [place] [address] Apr, [facility] [place] [facility] [address] [id number] [place] [address] Apr, [facility] [address] [id number] [place] [address] Apr, [facility] [place] [facility] [address] [id number] [place] [address] Apr, [facility] [address] [id number] [place] [address] Mar, [facility] [address] [id number] [place] [address] Mar, [facility] [place] [facility] [address] [id number] [place] [address] Mar, [facility] [address] [id number] [place] [address] Mar, [facility] [place] [facility] [address] [id number] [place] [address] 19 Jan, 2013 [facility] [place] [facility] [address] [id number] [place] [address] 11 Jan, 2013 [facility] [place] [facility] [address] [id number] [place] [address] 02 Jan, 2013 [facility] [place] [facility] [address] [id number] [place] [address] 30 Dec, 2012 [facility] [place] [facility] [address] [id number] [place] [address] Dec, [facility] [place] [facility] [address] [id number] [place] [address] Dec, [facility] [place] [facility] [address] [id number] [place] [address] Dec, [facility] [place] [facility] [address] [id number] [place] [address] Nov, [facility] [place] [facility] [address] [id number] [place] [address] Nov, [facility] [place] [facility] [address] [id number] [place] [address] Nov, [facility] [place] [facility] [address] [id number] [place] [address] Oct, [facility] [place] [facility] [address] [id number] [place] [address] Oct, [facility] [place] [facility] [address] [id number] [place] [address] Oct, [facility] [place] [facility] [address] [id number] [place] [address] Oct, [facility] [place] [facility] [address] [id number] [place] [address] Oct, [facility] [place] [facility] [address] [id number] [place] [address] Oct, [facility] [place] [facility] [address] [id number] [place] [address] September, [facility] [place] [facility] [address] [id number] [place] [address] Jul, [facility] [place] [facility] [address] [id number] [place] [address] Jul, [facility] [place] [facility] [address] [id number] [place] [address] Jul, [facility] [place] [facility] [address] [id number] [place] [address] Jul, [facility] [address] [id number] [place] [address] Jul, [facility] [place] [facility] [address] [id number] [place] [address] Jul, [facility] [place] [facility] [address] [id number] [place] [address] Jun, [facility] [place] [facility] [address] [id number] [place] [address] Apr, [facility] [place] [facility] [address] [id number] [place] [address] Apr, [facility] [place] [facility] [address] [id number] [place] [address] Jan, [facility] [address] [id number] [place] [address] Dec, [facility] [place] [facility] [address] [id number] [place] [address] Nov, [facility] [place] [facility] [address] [id number] [place] [address] Oct, [facility] [place] [facility] [address] [id number] [place] [address] September, [facility] [place] [facility] [address] [id number] [place] [address] September, [facility] [place] [facility] [address] [id number] [place] [address] Jul, [facility] [place] [facility] [address] [id number] [place] [address] Jul, [facility] [place] [facility] [address] [id number] [place] [address] Jul, [facility] [place] [facility] [address] [id number] [place] [address] Jul, [facility] [place] [facility] [address] [id number] [place] [address] Jul, [facility] [place] [facility] [address] [id number] [place] [address] 17 Jul, 2011 [facility] [place] [facility] [address] [id number] [place] [address] 13 Jul, 2011 [facility] [place] [facility] [address] [id number] [place] [address] Jul, [facility] [place] [facility] [address] [id number] [place] [address] 08 Jul, 2011 [facility] [place] [facility] [address] [id number] [place] [address] 07 Jul, 2011 [facility] [place] [facility] [address] [facility] [id number] [place] [address] Jun, [facility] [place] [facility] [address] [id number] [place] [address] May, [facility] [place] [facility] [address] [facility] [id number] [place] [address] May, [facility] [place] [facility] [address] [facility] [id number] [place] [address] 05 May, 2011 [facility] [place] [facility] [address] [facility] [id number] [place] [address] Apr, [facility] [place] [facility] [address] [id number] [place] [address] Apr, [facility] [place] [facility] [address] [id number] [place] [address] Mar, [facility] [place] [facility] [address] [id number] [place] [address] Mar, [facility] [place] [facility] [address] [facility] [id number] [place] [address] Mar, [facility] [place] [facility] [address] [id number] [place] [address] Mar, [facility] [address] [facility] [id number] [place] [address] Mar, [facility] [address] [id number] [address] September, [facility] [address] [facility] [id number] [place] [address] Mar, [facility] [address] [facility] [id number] [place] [address] Dec, [facility] [address] [facility] [id number] [place] [address] May, [facility] [address] [facility] [id number] [place] [address] May, IMMUNIZATIONS No Known Immunizations SOCIAL HISTORY Never Assessed REASON FOR VISIT hurt left foot last night- can of stewed tomatoes fell on it JStrasserRN PLAN OF CARE Activity Details Follow Up prn Reason: VITAL SIGNS Height 63 in 2016-11-03 Weight 164.4 lbs 2016-11-03 Temperature 97.5 degrees Fahrenheit 2016-11-03 Heart Rate 64 bpm 2016-11-03 Respiratory Rate 20 2016-11-03 BMI 29.12 kg/m2 2016-11-03 Blood pressure systolic 120 mmHg 2016-11-03 Blood pressure diastolic 74 mmHg 2016-11-03 MEDICATIONS Medication Instructions Dosage Frequency Start Date End Date Duration Status Simvastatin 40 mg Orally Once a day 1 tablet in the evening 24h May, Active Oxygen Active Albuterol Sulfate (2.5 MG/3ML) 0.083% Inhalation 4 times a day 3 ml 6h May, 30 days Active Neurontin 300 MG 1 capsule at hs x 4 days, then 1 capsule BID x 4 days, then 1 capsule 3 times daily Aug, 30 days Active Levothyroxine Sodium 100 MCG Orally Once a day 1 tablet 24h 90 days Active Hydrocodone-Acetaminophen 10-325 MG Orally 3 times a day 1 tablet 8h September 28 days Active Effexor XR 75 MG Orally Once a day 1 capsule with food 24h 90 days Active Flexeril 10 MG Orally Three times a day 1 tablet as needed 8h Active RESULTS Name Result Date Reference Range Xray : Foot, Left 3 views (IN HOUSE) 2016-11-03 PROCEDURES Procedure Date Ordered Result Body Site X-RAY EXAM OF FOOT November 03, 2016 INSTRUCTIONS MEDICATIONS ADMINISTERED No Known Medications MEDICAL (GENERAL) HISTORY Type Description Date Medical History hypothyroidism Medical History anxiety Medical History chronic back pain Medical History hypercholesterolemia Medical History bronchitis Surgical History hysterectomy 2010 Surgical History revision of the mesh sling 2011 Surgical History cholecystectomy Surgical History tonsilectomy Surgical History L knee tumor removal Hospitalization History surgeries
--- OUTSIDE RECORDS SUMMARY | 2017-11-10 19:41 | XMS REPORT ---
Author Author CEDRICK BARCENAS Organization [facility] Address [address] [place] [address] Care Team Providers Care Domestic Violence Advocate Name Role Phone CEDRICK BARCENAS Unavailable PROBLEMS Type Condition ICD9-CM Code TON46-RE Code Onset Dates Condition Status SNOMED Code Problem [facility] 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.891 Active 404813824 Problem Chronic pain syndrome G89.4 Active 134927457 Problem Generalized anxiety disorder F41.1 Active 85462401 Problem Major depressive disorder, recurrent episode, moderate F33.1 Active 062763011 Problem Hypothyroidism, unspecified E03.9 Active 40161506 Problem Depression, unspecified depression type F32.9 Active 81209645 Problem Anxiety F41.9 Active 28706152 Problem Mixed hyperlipidemia E78.2 Active 709998711 ALLERGIES No Information ENCOUNTERS Encounter Location Date Diagnosis [facility] [address] [address] September, [facility] [address] [address]- [address] Aug, [facility] [id number] [place] [address] 20822- 8513 Jul, Major depressive disorder, recurrent episode, moderate F33.1 [facility] [id number] [place] [address] 47590- 2911 Jul, [facility] [address] [address]- 1738 14 Jul, 2017 Hypothyroidism, unspecified E03.9 [facility] [id number] [place] [address] 86843- 0384 12 Jul, 2017 Hypothyroidism, unspecified E03.9 [facility] [address] [place] [address]- 3141 Jul, Mixed hyperlipidemia E78.2 [facility] [address] [address]- 6410 Jul, Mixed hyperlipidemia E78.2 [facility] [address] [address] Jul, Bronchitis J40 ; Cough R05 and Wheezing R06.2 [facility] [address] [address]- 7322 Jul, Major depressive disorder, recurrent episode, moderate F33.1 and Generalized anxiety disorder F41.1 [place] [place] [address] [address]- 4847 Jul, [place] [address] 18357- 6073 Jul, Major depressive disorder, recurrent episode, moderate F33.1 and Generalized anxiety disorder F41.1 [facility] [address] [address]- 3832 Jul, Generalized anxiety disorder F41.1 and Major depressive disorder, recurrent episode, moderate F33.1 [facility] [address] [address]- 7812 Jul, Mixed hyperlipidemia E78.2 [facility] [address] [address]- [address] Jun, Depression, unspecified depression type F32.9 ; Cervicalgia M54.2 ; Trigger point M79.1 ; Hypothyroidism, unspecified E03.9 ; Screening, lipid Z13.220 and Mixed hyperlipidemia E78.2 [facility] [address] [address]- [address]29 Jun, [facility] [address] 71306- 5224 May, [facility] [address] 02993- 7148 Apr, Acute bronchitis due to other specified organisms J20.8 and Tobacco abuse counseling Z71.6 [facility] [address] 47743- 4206 Mar, Depression, unspecified depression type F32.9 [facility] [address] 03496- 1496 Jan, Chronic pain syndrome G89.4 [place] [address] 28838- 0660 Nov, Anxiety F41.9 ; Depression, unspecified depression type F32.9 and Chronic pain syndrome G89.4 [facility] [id number] [place] [address] 41338- 8843 Oct, Anxiety F41.9 and Hypothyroidism, unspecified E03.9 [facility] [address] [address] -1201 Oct, Left foot pain M79.672 and Contusion of left foot, 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 S90.32XA [facility] [address] 29729- 3450 Oct, [facility] [id number] [place] [address] 08634- 9495 September, Cervicalgia M54.2 [facility] [id number] [place] [address] 22457- 0199 September, [facility] [id number] [place] [address] 32167- 5548 Aug, Cervicalgia M54.2 [facility] [address] 87557- 4124 Aug, Cervicalgia M54.2 and Left arm numbness R20.0 [facility] [address] 17525- 2917 Aug, [facility] [address] [place] [address]- 2889 Aug, [facility] [id number] [place] [address] 23841- 7366 Jul, [facility] [id number] [place] [address] 86325- 7786 Jul, [facility] [id number] [place] [address] 53959- 0674 Jul, [facility] [id number] [place] [address] 671934- 6487 Jul, Acute midline low back pain without sciatica M54.5 [facility] [id number] [place] [address] 79307- 8316 Jun, Acute midline low back pain without sciatica M54.5 [facility] [id number] [place] [address] 30420- 9923 Jun, Chronic pain syndrome G89.4 and Muscle spasm M62.838 [facility] [id number] [place] [address] 29339- 3115 Jun, [facility] [id number] [place] [address] 95868- 8292 Jun, Acute midline low back pain without sciatica M54.5 [facility] [id number] [place] [address] 47379- 9685 Jun, [facility] [id number] [place] [address] 00596- 8393 May, [facility] [id number] [place] [address] 35045- 3219 May, Hypothyroidism, unspecified E03.9 ; Chronic pain syndrome G89.4 ; Hyperglycemia R73.9 ; Encounter for immunization Z23 and Mixed hyperlipidemia E78.2 [facility] [address] [place] [address] 62985- 3942 Apr, Fatigue 780.79 [facility] [address] [address]- 5515 Apr, Chronic pain syndrome G89.4 [facility] [address] [address]- 4826 Mar, [facility] [address] [address]- 6524 Mar, Chronic pain syndrome G89.4 [facility] [id number] [place] [address] 30501- 7014 Jan, [facility] [id number] [place] [address] 98799- 2477 Dec, [facility] [id number] [place] [address] 77247- 5394 Dec, Chronic pain syndrome G89.4 [facility] [address] [place] [address] 22004- 5686 Dec, Trigger point M79.2 [facility] [address] [place] [address] 27728- 5896 Nov, Chronic pain syndrome G89.4 [facility] [address] [place] [address] 01942- 4982 Oct, Chronic pain syndrome G89.4 [facility] [address] [address]- 7065 Oct, Irritant contact dermatitis due to detergent L24.0 [facility] [address] [address]- 0909 September, Hypothyroidism, unspecified E03.9 and Depression, unspecified depression type F32.9 [facility] [address] [address]- 2713 September, Chronic pain syndrome G89.4 [facility] [address] [address]- 1391 Aug, [facility] [id number] [address]- 7229 Aug, Trigger point M79.2 [facility] [address] [address]- 7798 Jul, Chronic pain syndrome G89.4 and [facility] 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.891 [facility] [address] [address] 2546 Jul, Chronic pain syndrome G89.4 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 [facility] [address], [place] [address]- 0539 Jul, [facility] [address] [place] [address] 40562- 0449 Jul, [facility] [address] [address]- 4321 Jun, [facility] [address] [address]- 7313 May, [facility] [address] [address]- 7498 May, [facility] [address] [address]- 9229 May, [facility] [address] [address]- 9286 May, Pneumonia, organism unspecified, unspecified laterality, unspecified part of lung J18.9 [facility] [id number] [address]- 3608 May, Pneumonia, organism unspecified, unspecified laterality, unspecified part of lung J18.9 [facility] [address] 6161 Apr, [facility] [address] [address]- 2240 Apr, [facility] [address] [address]- 4364 Apr, [facility] [id number] [place] [address] 58079- 8324 Apr, [facility] [id number] [place] [address] 02835- 1179 Apr, [facility] [id number] [place] [address] 06471- 9784 Apr, Epigastric pain R10.13 [facility] [id number] [place] [address] 60004- 7697 Mar, Tinea pedis B35.3 and Contact dermatitis and eczema due to detergents L24.0 [facility] [id number] [place] [address] 23148- 0973 Mar, [facility] [id number] [place] [address] 40447- 9018 Jan, [facility] [id number] [place] [address] 28652- 6040 Jan, [facility] [id number] [place] [address] 37036- 2841 Jan, [facility] [address] [place] [address] 87236- 6163 Dec, [facility] [id number] [place] [address] 83116- 7043 Nov, [facility] [address] [place] [address] 10906- 2035 Nov, Fatigue 780.79 [facility] [id number] [place] [address] 58046- 4174 Nov, [facility] [id number] [place] [address] 75356- 3944 Nov, Unspecified myalgia and myositis 729.1 [facility] [id number] [place] [address] 76199- 8271 Nov, Hypercalcemia 275.42 [facility] [id number] [place] [address] 30275- 8756 Nov, Fatigue 780.79 ; Bradycardia 427.89 ; Chronic pain 338.29 and Family history of diabetes mellitus V18.0 [facility] [id number] [place] [address] 61215- 7196 Nov, Fatigue 780.79 ; Chronic pain 338.29 ; Family history of diabetes mellitus V18.0 ; Bradycardia 427.89 ; Hypothyroid 244.9 and Anxiety 300.00 [facility] [id number] [place] [address] 68243- 5876 Oct, [facility] [id number] [place] [address] 68188- 9496 September, [facility] [id number] [place] [address] 37391- 0872 Aug, [facility] [id number] [place] [address] 75728- 9634 Aug, [facility] [id number] [place] [address] 78308- 9987 Aug, [facility] [id number] [place] [address] 08320- 9286 Jul, [facility] [id number] [place] [address] 65426- 3786 Jul, [facility] [id number] [place] [address] 69668- 3726 Jul, [facility] [id number] [place] [address] 10263- 4956 Jul, [facility] [id number] [place] [address] 15166- 8706 Jun, [facility] [id number] [place] [address] 20003- 9685 Jun, [facility] [address] [id number] [place] [address]- 4909 Jun, [facility] [place] [facility] [address] [id number] [place] [address]- 7055 Jun, [facility] [place] [facility] [address] [id number] [place] [address]- 6153 Jun, [facility] [place] [facility] [address] [id number] [place] [address]- 5430 Jun, [facility] [place] [facility] [address] [id number] [place] [address]- 6289 May, [facility] [place] [facility] [address] [id number] [place] [address]- 5433 May, [facility] [place] [facility] [address] [id number] [place] [address]- 5135 May, [facility] [place] [facility] [address] [id number] [place] [address]- 1603 May, [facility] [place] [facility] [address] [id number] [place] [address]- 8612 May, [facility] [place] [facility] [address] [id number] [place] [address]- 4396 May, [facility] [place] [facility] [address] [id number] [place] [address]- 2707 May, [facility] [place] [facility] [address] [id number] [place] [address]- 6348 May, [facility] [place] [facility] [address] [id number] [place] [address]- 2661 May, [facility] [place] [facility] [address] [id number] [place] [address]- 4533 May, [facility] [place] [facility] [address] [id number] [place] [address]- 5081 Apr, [facility] [place] [facility] [address] [id number] [place] [address]- 1314 Apr, [facility] [place] [facility] [address] [id number] [place] [address]- 7855 Apr, [facility] [place] [facility] [address] [id number] [place] [address]- 8872 Apr, [facility] [place] [facility] [address] [id number] [place] [address]- 5952 Apr, [facility] [place] [facility] [address] [id number] [place] [address]- 8769 Apr, [facility] [place] [facility] [address] [id number] [place] [address]- 9544 Apr, [facility] [place] [facility] [address] [id number] [place] [address]- 3446 Apr, [facility] [place] [facility] [address] [id number] [place] [address]- 6049 Apr, [facility] [place] [facility] [address] [id number] [place] [address]- 5341 17 Apr, 2014 [facility] [place] [facility] [address] [id number] [place] [address]- 8123 Apr, [facility] [place] [facility] [address] [id number] [place] [address]- 3925 Apr, [facility] [place] [facility] [address] [id number] [address]- 1323 Apr, [facility] [place] [facility] [address] [id number] [address]- 3764 10 Apr, 2014 [facility] [place] [facility] [address] [id number] [place] [address]- 2148 10 Apr, 2014 [facility] [place] [facility] [address] [id number] [address]- 4635 16 Mar, 2014 [facility] [place] [facility] [address] [id number] [place] [address]- 4636 16 Mar, 2014 [facility] [place] [facility] [address] [id number] [place] [address]- 9243 Mar, [facility] [place] [facility] [address] [id number] [place] [address]- 7837 16 Mar, 2014 [facility] [place] [facility] [address] [id number] [place] [address]- 3505 Jan, [facility] [place] [facility] [address] [id number] [place] [address]- 3540 Jan, [facility] [place] [facility] [address] [id number] [place] [address]- 2817 Jan, [facility] [place] [facility] [address] [id number] [place] [address]- 7552 Jan, [facility] [place] [facility] [address] [id number] [place] [address]- 8078 Jan, [facility] [place] [facility] [address] [id number] [place] [address]- 1096 Jan, [facility] [place] [facility] [address] [id number] [place] [address]- 7349 Dec, [facility] [place] [facility] [address] [id number] [place] [address]- 2591 Dec, [facility] [place] [facility] [address] [id number] [place] [address]- 3194 Dec, [facility] [place] [facility] [address] [id number] [place] [address]- 9276 Dec, [facility] [place] [facility] [address] [id number] [place] [address]- 6338 Nov, [facility] [place] [facility] [address] [id number] [place] [address]- 8727 Nov, [facility] [place] [facility] [address] [id number] [place] [address]- 5097 Nov, [facility] [place] [facility] [address] [id number] [place] [address]- 2529 Nov, [facility] [place] [facility] [address] [id number] [place] [address]- 8613 Oct, [facility] [place] [facility] [address] [id number] [place] [address]- 7909 Oct, [facility] [place] [facility] [address] [id number] [place] [address]- 8471 Oct, [facility] [place] [facility] [address] [id number] [place] [address]- 2410 Oct, [facility] [place] [facility] [address] [id number] [place] [address]- 9618 Oct, [facility] [place] [facility] [address] [id number] [place] [address]- 6311 Oct, [facility] [place] [facility] [address] [id number] [place] [address]- 2662 Oct, [facility] [place] [facility] [address] [id number] [place] [address]- 4147 Oct, [facility] [place] [facility] [address] [id number] [place] [address]- 2883 Oct, [facility] [place] [facility] [address] [id number] [place] [address]- 2050 Oct, [facility] [place] [facility] [address] [id number] [place] [address]- 2786 September, [facility] [place] [facility] [address] [id number], [place] [address]- 1014 September, [facility] [place] [facility] [address] [id number] [place] [address]- 3785 September, [facility] [place] [facility] [address] [id number] [place] [address]- 3477 September, [facility] [place] [facility] [address] [id number] [place] [address]- 7479 September, [facility] [place] [facility] [address] [id number] [address]- 2096 September, [facility] [place] [facility] [address] [id number] [place] [address]- 8404 September, [facility] [place] [facility] [address] [id number] [place] [address]- 4102 September, [facility] [place] [facility] [address] [id number] [place] [address]- 3819 September, [facility] [place] [facility] [address] [id number] [place] [address]- 5792 Aug, [facility] [place] [facility] [address] [id number] [place] [address]- 2447 Aug, [facility] [place] [facility] [address] [id number] [place] [address]- 0955 Aug, [facility] [place] [facility] [address] [id number] [place] [address]- 6181 Aug, [facility] [place] [facility] [address] [id number] [place] [address]- 0134 Aug, [facility] [place] [facility] [address] [id number] [place] [address]- 3613 Aug, [facility] [place] [facility] [address] [id number] [place] [address]- 4908 Aug, [facility] [place] [facility] [address] [id number] [place] [address]- 2518 Aug, [facility] [place] [facility] [address] [id number] [place] [address]- 5806 Jul, [facility] [place] [facility] [address] [id number] [place] [address]- 4895 Jul, [facility] [place] [facility] [address] [id number] [place] [address]- 6404 Jul, [facility] [place] [facility] [address] [id number] [place] [address]- 0830 Jul, [facility] [place] [facility] [address] [id number] [place] [address]- 6884 24 Jul, 2013 [facility] [place] [facility] [address] [id number] [place] [address] Jul, [facility] [place] [facility] [address] [id number] [place] [address] Jul, [facility] [place] [facility] [address] [id number] [place] [address] 18 Jul, 2013 [facility] [place] [facility] [address] [id number] [place] [address] 18 Jul, 2013 [facility] [place] [facility] [address] [id number] [place] [address] Jul, [facility] [place] [facility] [address] [id number] [place] [address] 17 Jul, 2013 [facility] [place] [facility] [address] [id number] [place] [address] Jul, [facility] [place] [facility] [address] [id number] [place] [address] Jul, [facility] [place] [facility] [address] [id number] [place] [address] 05 Jul, 2013 [facility] [place] [facility] [address] [id number] [place] [address] Jul, [facility] [place] [facility] [address] [id number] [place] [address] Jul, [facility] [place] [facility] [address] [id number] [place] [address] Jul, [facility] [place] [facility] [address] [id number] [place] [address] 05 Jul, 2013 [facility] [place] [facility] [address] [id number] [place] [address]- [address] 05 Jul, 2013 [facility] [place] [facility] [address] [id number] [place] [address]- [address] Jun, [facility] [place] [facility] [address] [id number] [place] [address] Jun, [facility] [place] [facility] [address] [id number] [place] [address] May, [facility] [place] [facility] [address] [id number] [place] [address] May, [facility] [place] [facility] [address] [id number] [place] [address] Apr, [facility] [place] [facility] [address] [id number] [place] [address] Apr, [facility] [place] [facility] [address] [id number] [place] [address] Apr, [facility] [place] [facility] [address] [id number] [place] [address] Apr, [facility] [place] [facility] [address] [id number] [place] [address] Apr, [facility] [place] [facility] [address] [id number] [place] [address] Apr, [facility] [place] [facility] [address] [id number] [place] [address] Mar, [facility] [place] [facility] [address] [id number] [address] Mar, [facility] [place] [facility] [address] [id number], [place] [address] 15 Mar, 2013 [facility] [place] [facility] [address] [id number] [place] [address] 15 Mar, 2013 [facility] [place] [facility] [address] [id number], [place] [address] 19 Jan, 2013 [facility] [place] [facility] [address] [id number] [place] [address] 11 Jan, 2013 [facility] [place] [facility] [address] [id number] [place] [address] Jan, [facility] [address] [id number] [place] [address] Dec, [facility] [place] [facility] [address] [id number] [place] [address] Dec, [facility] [address] [id number] [place] [address] Dec, [facility] [address] [id number] [place] [address] Dec, [facility] [address] [id number] [place] [address] Nov, [facility] [address] [id number] [place] [address] Nov, [facility] [address] [id number] [place] [address] Nov, [facility] [address] [id number] [place] [address] Oct, [facility] [address] [id number] [place] [address] Oct, [facility] [address] [id number] [place] [address] Oct, [facility] [place] [facility] [address] [id number] [place] [address] Oct, [facility] [address] [id number] [place] [address] Oct, [facility] [place] [facility] [address] [id number] [place] [address] Oct, [facility] [place] [facility] [address] [id number] [place] [address] September, [facility] [place] [facility] [address] [id number] [place] [address]- [address] Jul, [facility] [address] [id number] [place] [address] Jul, [facility] [place] [facility] [address] [id number] [place] [address]- [address] Jul, [facility] [place] [facility] [address] [id number] [place] [address]- [address] Jul, [facility] [place] [facility] [address] [id number] [place] [address]- [address] Jul, [facility] [place] [facility] [address] [id number] [place] [address]- 2008 Jul, [facility] [facility] [address] [id number] [place] [address] Jun, [facility] [place] [facility] [address] [id number] [place] [address] Apr, [facility] [place] [facility] [address] [id number] [place] [address] Apr, [facility] [place] [facility] [address] [id number] [place] [address] Jan, [facility] [place] [facility] [address] [id number] [place] [address] Dec, [facility] [place] [facility] [address] [id number] [place] [address] Nov, [facility] [place] [facility] [address] [id number] [address] Oct, [facility] [place] [facility] [address] [id number] [place] [address] September, [facility] [place] [facility] [address] [id number] [place] [address] September, [facility] [place] [facility] [address] [id number] [place] [address] Jul, [facility] [place] [facility] [address] [id number] [address] 05 Jul, 2011 [facility] [address] [id number] [place] [address] 28 Jul, 2011 [facility] [place] [facility] [address] [facility] [id number] [place] [address] 23 Jul, 2011 [facility] [place] [facility] [address] [facility] [id number] [place] [address] 22 Jul, 2011 [facility] [place] [facility] [address] [id number] [place] [address] 17 Jul, 2011 [facility] [place] [facility] [address] [id number] [place] [address] 13 Jul, 2011 [facility] [place] [facility] [address] [facility] [id number] [place] [address] 11 Jul, 2011 [facility] [place] [facility] [id number] [place] [address] 08 Jul, 2011 [facility] [place] [facility] [address] [facility] [id number] [place] [address] 07 Jul, 2011 [facility] [place] [facility] [id number] [place] [address] Jun, [facility] [address] [id number] [place] [address] 30 May, 2011 [facility] [facility] [address] [facility] [id number] [place] [address] May, [facility] [facility] [address] [facility] [id number] [place] [address] May, [facility] [place] [facility] [address] [facility] [id number] [place] [address] Apr, [facility] [place] [facility] [address] [facility] [id number] [place] [address] Apr, [facility] [place] [facility] [address] [id number] [place] [address] Mar, [facility] [address] [facility] [id number] [address] Mar, [facility] [address] [facility] [id number], [place] [address] Mar, [facility] [address] [facility] [id number][place] [address] Mar, [facility] [address] [facility] [id number] [address] Mar, [facility] [address] [facility] [id number], [place] [address] September, [facility] [address] [facility] [id number], [place] [address] Mar, [facility] [id number] [address] Dec, [facility] [address] [id number] [address] May, [facility] [address] [id number], [place] [address] May, IMMUNIZATIONS No Known Immunizations SOCIAL HISTORY Never Assessed REASON FOR VISIT Rx Request PLAN OF CARE VITAL SIGNS MEDICATIONS Medication Instructions Dosage Frequency Start Date End Date Duration Status Levothyroxine Sodium 125 MCG Orally Once a day 1 tablet 24h 30 days Active Clonidine HCl 0.1 MG Orally twice a day 1 tablet 12h Oct, 30 days Active RESULTS No Results PROCEDURES [...]
--- OUTSIDE RECORDS SUMMARY | 2017-11-10 19:43 | XMS REPORT | Continuity of Care Document ---
Author Author [facility] Address Unknown Phone Unavailable Allergies Active Description Code Type Severity Reaction Onset Reported/Identified Relationship to Patient Clinical Status Yes NO KNOWN DRUG ALLERGIES UNKNOWN NO KNOWN DRUG ALLERG Yes No Known Drug Allergies [id number] Drug Allergy Unknown N/A 01/13/2011 Yes Glucophage 1,000 mg Tablet Drug Allergy 02/23/2012 Yes Glucophage 1,000 mg Tablet Drug Allergy N/A N/A 02/23/2012 Medications Medication Packaging Start Date Stop Date Route Dosage Sig KETOROLAC VIAL INJ 30 MG/CC (TORADOL VIAL) MG 11/18/2016 11/18/2016 ONCE&0019 Problems Date Dx Coded Attending Type Code Diagnosis Diagnosed By 12/06/2007 EUGENE YOUNGSELI F 380.4 CERUMEN IMPACTION 12/06/2007 EUGENE DDSELI F 477.9 RHINITIS ALLERGIC 12/06/2007 ELI KNIGHT DDS F 787.01 NAUSEA WITH VOMITING 12/06/2007 EUGENE YOUNGSELI F 787.91 DIARRHEA 12/06/2007 CEDRICK BARCENAS APRN S 380.4 CERUMEN IMPACTION 12/06/2007 CEDRICK BARCENAS APRN S 477.9 RHINITIS ALLERGIC 12/06/2007 YURY BARCENAS APRNA S 787.01 NAUSEA WITH VOMITING 12/06/2007 MIRIAN BARCENAS APRNNDA S 787.91 DIARRHEA 12/06/2007 CARY DO MARBIN K 380.4 CERUMEN IMPACTION 12/06/2007 CARY DO MARBIN K 477.9 RHINITIS ALLERGIC 12/06/2007 CARY DO MARBIN K 787.01 NAUSEA WITH VOMITING 12/06/2007 CARY DO, MARBIN K 787.91 DIARRHEA 12/06/2007 380.4 CERUMEN [...] WITH VOMITING 12/06/2007 787.91 DIARRHEA 12/06/2007 NARINDER VISUAL DESIGNER, CEDRICK S 380.4 CERUMEN IMPACTION 12/06/2007 NARINDER VISUAL DESIGNER, CEDRICK S 477.9 RHINITIS ALLERGIC 12/06/2007 NARINDER VISUAL DESIGNER, CEDRICK S 787.01 NAUSEA WITH VOMITING 12/06/2007 NARINDER ARANGO, CEDRICK S 787.91 DIARRHEA 12/06/2007 CARY DO, MARBIN K 380.4 CERUMEN IMPACTION 12/06/2007 CARY DO, MARBIN K 477.9 RHINITIS ALLERGIC 12/06/2007 CARY DO, MARBIN K 787.01 NAUSEA WITH VOMITING 12/06/2007 CARY DO, MARBIN K 787.91 DIARRHEA 12/06/2007 NARINDER VISUAL DESIGNER, CEDRICK S 380.4 CERUMEN IMPACTION 12/06/2007 NARINDER VISUAL DESIGNER, CEDRICK S 477.9 RHINITIS ALLERGIC 12/06/2007 NARINDER VISUAL DESIGNER, CEDRICK S 787.01 NAUSEA WITH VOMITING 12/06/2007 NARINDER VISUAL DESIGNER, CEDRICK S 787.91 DIARRHEA 12/06/2007 NARINDER VISUAL DESIGNER, CEDRICK S 380.4 CERUMEN IMPACTION 12/06/2007 NARINDER VISUAL DESIGNER, CEDRICK S 477.9 RHINITIS ALLERGIC 12/06/2007 NARINDER VISUAL DESIGNER, CEDRICK S 787.01 NAUSEA WITH VOMITING 12/06/2007 NARINDER VISUAL DESIGNER, CEDRICK S 787.91 DIARRHEA 12/06/2007 NARINDER VISUAL DESIGNER, CEDRICK S 380.4 CERUMEN IMPACTION 12/06/2007 NARINDER VISUAL DESIGNER, CEDRICK S 477.9 RHINITIS ALLERGIC 12/06/2007 NARINDER VISUAL DESIGNER, CEDRICK S 787.01 NAUSEA WITH VOMITING 12/06/2007 NARINDER VISUAL DESIGNER, CEDRICK S 787.91 DIARRHEA 12/06/2007 NARINDER VISUAL DESIGNER, CEDRICK S 380.4 CERUMEN IMPACTION 12/06/2007 NARINDER VISUAL DESIGNER, CEDRICK S 477.9 RHINITIS ALLERGIC 12/06/2007 NARINDER VISUAL DESIGNER, CEDRICK S 787.01 NAUSEA WITH VOMITING 12/06/2007 NARINDER VISUAL DESIGNER, CEDRICK S 787.91 DIARRHEA 12/06/2007 NARINDER VISUAL DESIGNER, CEDRICK S 380.4 CERUMEN IMPACTION 12/06/2007 NARINDER VISUAL DESIGNER, CEDRICK S 477.9 RHINITIS ALLERGIC 12/06/2007 NARINDER VISUAL DESIGNER, CEDRICK S 787.01 NAUSEA WITH VOMITING 12/06/2007 NARINDER VISUAL DESIGNER, CEDRICK S 787.91 DIARRHEA 12/06/2007 NARINDER VISUAL DESIGNER, CEDRICK S 380.4 CERUMEN IMPACTION 12/06/2007 NARINDER VISUAL DESIGNER, CEDRICK S 477.9 RHINITIS ALLERGIC 12/06/2007 NARINDER VISUAL DESIGNER, CEDRICK S 787.01 NAUSEA WITH VOMITING 12/06/2007 NARINDER VISUAL DESIGNER, CEDRICK S 787.91 DIARRHEA 12/06/2007 NARINDER VISUAL DESIGNER, CEDRICK S 380.4 CERUMEN IMPACTION 12/06/2007 NARINDER VISUAL DESIGNER, CEDRICK S 477.9 RHINITIS ALLERGIC 12/06/2007 NARINDER VISUAL DESIGNER, CEDRICK S 787.01 NAUSEA WITH VOMITING 12/06/2007 NARINDER VISUAL DESIGNER, CEDRICK S 787.91 DIARRHEA 12/06/2007 NARINDER VISUAL DESIGNER, CEDRICK S 380.4 CERUMEN IMPACTION 12/06/2007 NARINDER VISUAL DESIGNER, CEDRICK S 477.9 RHINITIS ALLERGIC 12/06/2007 NARINDER VISUAL DESIGNER, CEDRICK S 787.01 NAUSEA WITH VOMITING 12/06/2007 NARINDER VISUAL DESIGNER, CEDRICK S 787.91 DIARRHEA 12/06/2007 NARINDER VISUAL DESIGNER, CEDRICK S 380.4 CERUMEN IMPACTION 12/06/2007 NARINDER VISUAL DESIGNER, CEDRICK S 477.9 RHINITIS ALLERGIC 12/06/2007 NARINDER VISUAL DESIGNER, CEDRICK S 787.01 NAUSEA WITH VOMITING 12/06/2007 NARINDER VISUAL DESIGNER, CEDRICK S 787.91 DIARRHEA 12/06/2007 NARINDER VISUAL DESIGNER, CEDRICK S 380.4 CERUMEN IMPACTION 12/06/2007 NARINDER VISUAL DESIGNER, CEDRICK S 477.9 RHINITIS ALLERGIC 12/06/2007 NARINDER VISUAL DESIGNER, CEDRICK S 787.01 NAUSEA WITH VOMITING 12/06/2007 NARINDER VISUAL DESIGNER, CEDRICK S 787.91 DIARRHEA 12/24/2007 EUGENE DDS, ELI F 250.00 DIABETES II CONTROLLED 12/24/2007 EUGENE DDS, ELI F 724.5 BACKACHE UNSPECIFIED 12/24/2007 MIRIAN BARCENAS APRNNDA S 250.00 DIABETES II CONTROLLED 12/24/2007 MIRIAN BARCENAS APRNNDA S 724.5 BACKACHE UNSPECIFIED 12/24/2007 CARY DO, MARBIN K 250.00 DIABETES II CONTROLLED 12/24/2007 CARY DO, MARBIN K 724.5 BACKACHE UNSPECIFIED 12/24/2007 250.00 DIABETES II CONTROLLED 12/24/2007 724.5 BACKACHE UNSPECIFIED 12/24/2007 250.00 DIABETES II CONTROLLED 12/24/2007 724.5 BACKACHE UNSPECIFIED 12/24/2007 250.00 DIABETES II CONTROLLED 12/24/2007 724.5 BACKACHE UNSPECIFIED 12/24/2007 250.00 DIABETES II CONTROLLED 12/24/2007 724.5 BACKACHE UNSPECIFIED 12/24/2007 NARINDER ARANGO CEDRICK S 250.00 DIABETES II CONTROLLED 12/24/2007 NARINDER ARANGO CEDRICK S 724.5 BACKACHE UNSPECIFIED 12/24/2007 CARY DO, MARBIN K 250.00 DIABETES II CONTROLLED 12/24/2007 CARY DO, MARBIN K 724.5 BACKACHE UNSPECIFIED 12/24/2007 NARINDER ARANGO CEDRICK S 250.00 DIABETES II CONTROLLED 12/24/2007 NARINDER VISUAL DESIGNER, CEDRICK S 724.5 BACKACHE UNSPECIFIED 12/24/2007 NARINDER VISUAL DESIGNER, CEDRICK S 250.00 DIABETES II CONTROLLED 12/24/2007 NARINDER VISUAL DESIGNER, CEDRICK S 724.5 BACKACHE UNSPECIFIED 12/24/2007 NARINDER VISUAL DESIGNER, CEDRICK S 250.00 DIABETES II CONTROLLED 12/24/2007 NARINDER VISUAL DESIGNER, CEDRICK S 724.5 BACKACHE UNSPECIFIED 12/24/2007 NARINDER VISUAL DESIGNER, CEDRICK S 250.00 DIABETES II CONTROLLED 12/24/2007 NARINDER VISUAL DESIGNER, CEDRICK S 724.5 BACKACHE UNSPECIFIED 12/24/2007 NARINDER VISUAL DESIGNER, CEDRICK S 250.00 DIABETES II CONTROLLED 12/24/2007 NARINDER VISUAL DESIGNER, CEDRICK S 724.5 BACKACHE UNSPECIFIED 12/24/2007 NARINDER VISUAL DESIGNER, CEDRICK S 250.00 DIABETES II CONTROLLED 12/24/2007 NARINDER VISUAL DESIGNER, CEDRICK S 724.5 BACKACHE UNSPECIFIED 12/24/2007 NARINDER VISUAL DESIGNER, CEDRICK S 250.00 DIABETES II CONTROLLED 12/24/2007 NARINDER VISUAL DESIGNER, CEDRICK S 724.5 BACKACHE UNSPECIFIED 12/24/2007 NARINDER VISUAL DESIGNER, CEDRICK S 250.00 DIABETES II CONTROLLED 12/24/2007 NARINDER VISUAL DESIGNER, CEDRICK S 724.5 BACKACHE UNSPECIFIED 12/24/2007 NARINDER VISUAL DESIGNER, CEDRICK S 250.00 DIABETES II CONTROLLED 12/24/2007 NARINDER VISUAL DESIGNER, CEDRICK S 724.5 BACKACHE UNSPECIFIED 12/24/2007 NARINDER VISUAL DESIGNER, CEDRICK S 250.00 DIABETES II CONTROLLED 12/24/2007 NARINDER VISUAL DESIGNER, CEDRICK S 724.5 BACKACHE UNSPECIFIED 02/21/2008 EUGENE DDS, ELI F 466.0 BRONCHITIS, ACUTE 02/21/2008 NARINDER VISUAL DESIGNER, CEDRICK S 466.0 BRONCHITIS, ACUTE 02/21/2008 MARBIN CARY DO 466.0 BRONCHITIS, ACUTE 02/21/2008 466.0 BRONCHITIS, ACUTE 02/21/2008 466.0 BRONCHITIS, ACUTE 02/21/2008 466.0 BRONCHITIS, ACUTE 02/21/2008 466.0 BRONCHITIS, ACUTE 02/21/2008 NARINDER VISUAL DESIGNER, CEDRICK S 466.0 BRONCHITIS, ACUTE 02/21/2008 CARY DO, MARBIN K 466.0 BRONCHITIS, ACUTE 02/21/2008 NARINDER VISUAL DESIGNER, CEDRICK S 466.0 BRONCHITIS, ACUTE 02/21/2008 NARINDER VISUAL DESIGNER, CEDRICK S 466.0 BRONCHITIS, ACUTE 02/21/2008 NARINDER VISUAL DESIGNER, CEDRICK S 466.0 BRONCHITIS, ACUTE 02/21/2008 NARINDER VISUAL DESIGNER, CEDRICK S 466.0 BRONCHITIS, ACUTE 02/21/2008 NARINDER VISUAL DESIGNER, CEDRICK S 466.0 BRONCHITIS, ACUTE 02/21/2008 NARINDER VISUAL DESIGNER, CEDRICK S 466.0 BRONCHITIS, ACUTE 02/21/2008 NARINDER VISUAL DESIGNER, CEDRICK S 466.0 BRONCHITIS, ACUTE 02/21/2008 NARINDER VISUAL DESIGNER, CEDRICK S 466.0 BRONCHITIS, ACUTE 02/21/2008 NARINDER VISUAL DESIGNER, CEDRICK S 466.0 BRONCHITIS, ACUTE 02/21/2008 NARINDER VISUAL DESIGNER, CEDRICK S 466.0 BRONCHITIS, ACUTE 11/07/2008 EUGENE DDS, ELI F 789.00 ABDOMINAL PAIN UNSPECIFIED SITE 11/07/2008 NARINDER VISUAL DESIGNER, CEDRICK S 789.00 ABDOMINAL PAIN UNSPECIFIED SITE 11/07/2008 CARY DOARIELLEA K 789.00 ABDOMINAL PAIN UNSPECIFIED SITE 11/07/2008 789.00 ABDOMINAL PAIN UNSPECIFIED SITE 11/07/2008 789.00 ABDOMINAL PAIN UNSPECIFIED SITE 11/07/2008 789.00 ABDOMINAL PAIN UNSPECIFIED SITE 11/07/2008 789.00 ABDOMINAL PAIN UNSPECIFIED SITE 11/07/2008 NARINDER VISUAL DESIGNER, CEDRICK S 789.00 ABDOMINAL PAIN UNSPECIFIED SITE 11/07/2008 CARY DO, MARBIN K 789.00 ABDOMINAL PAIN UNSPECIFIED SITE 11/07/2008 NARINDER VISUAL DESIGNER, CEDRICK S 789.00 ABDOMINAL PAIN UNSPECIFIED SITE 11/07/2008 NARINDER VISUAL DESIGNER, CEDRICK S 789.00 ABDOMINAL PAIN UNSPECIFIED SITE 11/07/2008 NARINDER VISUAL DESIGNER, CEDRICK S 789.00 ABDOMINAL PAIN UNSPECIFIED SITE 11/07/2008 NARINDER VISUAL DESIGNER, CEDRICK S 789.00 ABDOMINAL PAIN UNSPECIFIED SITE 11/07/2008 NARINDER VISUAL DESIGNER, CEDRICK S 789.00 ABDOMINAL PAIN UNSPECIFIED SITE 11/07/2008 NARINDER VISUAL DESIGNER, CEDRICK S 789.00 ABDOMINAL PAIN UNSPECIFIED SITE 11/07/2008 NARINDER VISUAL DESIGNER, CEDRICK S 789.00 ABDOMINAL PAIN UNSPECIFIED SITE 11/07/2008 NARINDER VISUAL DESIGNER, CEDRICK S 789.00 ABDOMINAL PAIN UNSPECIFIED SITE 11/07/2008 NARINDER VISUAL DESIGNER, CEDRICK S 789.00 ABDOMINAL PAIN UNSPECIFIED SITE 11/07/2008 NARINDER VISUAL DESIGNER, CEDRICK S 789.00 ABDOMINAL PAIN UNSPECIFIED SITE 05/08/2009 EUGENE DDS, ELI F 493.90 ASTHMA, UNSPECIFIED, UNSPECIFIED 05/08/2009 NARINDER VISUAL DESIGNER, CEDRICK S 493.90 ASTHMA, UNSPECIFIED, UNSPECIFIED 05/08/2009 MARBIN CARY DO 493.90 ASTHMA, UNSPECIFIED, UNSPECIFIED 05/08/2009 493.90 ASTHMA, UNSPECIFIED, UNSPECIFIED 05/08/2009 493.90 ASTHMA, UNSPECIFIED, UNSPECIFIED 05/08/2009 493.90 ASTHMA, UNSPECIFIED, UNSPECIFIED 05/08/2009 493.90 ASTHMA, UNSPECIFIED, UNSPECIFIED 05/08/2009 NARINDER VISUAL DESIGNER, CEDRICK S 493.90 ASTHMA, UNSPECIFIED, UNSPECIFIED 05/08/2009 MARBIN CARY DO K 493.90 ASTHMA, UNSPECIFIED, UNSPECIFIED 05/08/2009 NARINDER VISUAL DESIGNER, CEDRICK S 493.90 ASTHMA, UNSPECIFIED, UNSPECIFIED 05/08/2009 NARINDER VISUAL DESIGNER, CEDRICK S 493.90 ASTHMA, UNSPECIFIED, UNSPECIFIED 05/08/2009 NARINDER VISUAL DESIGNER, CEDRICK S 493.90 ASTHMA, UNSPECIFIED, UNSPECIFIED 05/08/2009 NARINDER VISUAL DESIGNER, CEDRICK S 493.90 ASTHMA, UNSPECIFIED, UNSPECIFIED 05/08/2009 NARINDER VISUAL DESIGNER, CEDRICK S 493.90 ASTHMA, UNSPECIFIED, UNSPECIFIED 05/08/2009 NARINDER VISUAL DESIGNER, CEDRICK S 493.90 ASTHMA, UNSPECIFIED, UNSPECIFIED 05/08/2009 NARINDER VISUAL DESIGNER, CEDRICK S 493.90 ASTHMA, UNSPECIFIED, UNSPECIFIED 05/08/2009 NARINDER VISUAL DESIGNER, CEDRICK S 493.90 ASTHMA, UNSPECIFIED, UNSPECIFIED 05/08/2009 NARINDER VISUAL DESIGNER, CEDRICK S 493.90 ASTHMA, UNSPECIFIED, UNSPECIFIED 05/08/2009 NARINDER VISUAL DESIGNER, CEDRICK S 493.90 ASTHMA, UNSPECIFIED, UNSPECIFIED 09/27/2009 EUGENE DDS, ELI F 729.5 PAIN IN LIMB 09/27/2009 NARINDER VISUAL DESIGNER, CEDRICK S 729.5 PAIN IN LIMB 09/27/2009 CARY DO, MARBIN K 729.5 PAIN IN LIMB 09/27/2009 729.5 PAIN IN LIMB 09/27/2009 729.5 PAIN IN LIMB 09/27/2009 729.5 PAIN IN LIMB 09/27/2009 729.5 PAIN IN LIMB 09/27/2009 NARINDER VISUAL DESIGNER, CEDRICK S 729.5 PAIN IN LIMB 09/27/2009 CARY DO, MARBIN K 729.5 PAIN IN LIMB 09/27/2009 NARINDER VISUAL DESIGNER, CEDRICK S 729.5 PAIN IN LIMB 09/27/2009 NARINDER VISUAL DESIGNER, CEDRICK S 729.5 PAIN IN LIMB 09/27/2009 NARINDER VISUAL DESIGNER, CEDRICK S 729.5 PAIN IN LIMB 09/27/2009 NARINDER VISUAL DESIGNER, CEDRICK S 729.5 PAIN IN LIMB 09/27/2009 NARINDER VISUAL DESIGNER, CEDRICK S 729.5 PAIN IN LIMB 09/27/2009 NARINDER VISUAL DESIGNER, CEDRICK S 729.5 PAIN IN LIMB 09/27/2009 NARINDER VISUAL DESIGNER, CEDRICK S 729.5 PAIN IN LIMB 09/27/2009 NARINDER VISUAL DESIGNER, CEDRICK S 729.5 PAIN IN LIMB 09/27/2009 NARINDER VISUAL DESIGNER, CEDRICK S 729.5 PAIN IN LIMB 09/27/2009 NARINDER VISUAL DESIGNER, CEDRICK S 729.5 PAIN IN LIMB 12/05/2009 EUGENE DDS, ELI F 786.2 COUGH 12/05/2009 EUGENE DDS, ELI F V15.85 PERSONAL HISTORY OF CONTACT WITH AND (SUSPECTED) EXPOSURE TO POTENTIALLY HAZARDOUS BODY FLUIDS 12/05/2009 NARINDER VISUAL DESIGNER, CEDRICK S 786.2 COUGH 12/05/2009 MIRIAN BARCENAS APRNNDA [...] EXPOSURE TO POTENTIALLY HAZARDOUS BODY FLUIDS 12/05/2009 MIRIAN BARCENAS APRNNDA S 786.2 COUGH 12/05/2009 MIRIAN BARCENAS APRNNDA S V15.85 PERSONAL HISTORY OF CONTACT WITH AND (SUSPECTED) EXPOSURE TO POTENTIALLY HAZARDOUS BODY FLUIDS 12/05/2009 CARY DO, MARBIN K 786.2 COUGH 12/05/2009 CARY DO, MARBIN K V15.85 PERSONAL HISTORY OF CONTACT WITH AND (SUSPECTED) EXPOSURE TO POTENTIALLY HAZARDOUS BODY FLUIDS 12/05/2009 MIRIAN BARCENAS APRNNDA S 786.2 COUGH 12/05/2009 NARINDER VISUAL DESIGNERMIRIAN BeNDA S V15.85 PERSONAL HISTORY OF CONTACT WITH AND (SUSPECTED) EXPOSURE TO POTENTIALLY HAZARDOUS BODY FLUIDS 12/05/2009 NARINDER VISUAL DESIGNER CEDRICK S 786.2 COUGH 12/05/2009 NARINDER VISUAL DESIGNERMIRIAN BeNDA S V15.85 PERSONAL HISTORY OF CONTACT WITH AND (SUSPECTED) EXPOSURE TO POTENTIALLY HAZARDOUS BODY FLUIDS 12/05/2009 NARINDER VISUAL DESIGNER CEDRICK S 786.2 COUGH 12/05/2009 NARINDER VISUAL DESIGNER CEDRICK S V15.85 PERSONAL HISTORY OF CONTACT WITH AND (SUSPECTED) EXPOSURE TO POTENTIALLY HAZARDOUS BODY FLUIDS 12/05/2009 NARINDER VISUAL DESIGNER, CEDRICK S 786.2 COUGH 12/05/2009 NARINDER VISUAL DESIGNER, CEDRICK S V15.85 PERSONAL HISTORY OF CONTACT WITH AND (SUSPECTED) EXPOSURE TO POTENTIALLY HAZARDOUS BODY FLUIDS 12/05/2009 NARINDER VISUAL DESIGNER, CEDRICK S 786.2 COUGH 12/05/2009 NARINDER VISUAL DESIGNER, CEDRICK S V15.85 PERSONAL HISTORY OF CONTACT WITH AND (SUSPECTED) EXPOSURE TO POTENTIALLY HAZARDOUS BODY FLUIDS 12/05/2009 NARINDER VISUAL DESIGNER, CEDRICK S 786.2 COUGH 12/05/2009 NARINDER VISUAL DESIGNER, CEDRICK S V15.85 PERSONAL HISTORY OF CONTACT WITH AND (SUSPECTED) EXPOSURE TO POTENTIALLY HAZARDOUS BODY FLUIDS 12/05/2009 NARINDER VISUAL DESIGNER, CEDRICK S 786.2 COUGH 12/05/2009 NARINDER VISUAL DESIGNER, CEDRICK S V15.85 PERSONAL HISTORY OF CONTACT WITH AND (SUSPECTED) EXPOSURE TO POTENTIALLY HAZARDOUS BODY FLUIDS 12/05/2009 NARINDER VISUAL DESIGNER, CEDRICK S 786.2 COUGH 12/05/2009 NARINDER VISUAL DESIGNER, CEDRICK S V15.85 PERSONAL HISTORY OF CONTACT WITH AND (SUSPECTED) EXPOSURE TO POTENTIALLY HAZARDOUS BODY FLUIDS 12/05/2009 NARINDER VISUAL DESIGNER, CEDRICK S 786.2 COUGH 12/05/2009 NARINDER VISUAL DESIGNER, CEDRICK S V15.85 PERSONAL HISTORY OF CONTACT WITH AND (SUSPECTED) EXPOSURE TO POTENTIALLY HAZARDOUS BODY FLUIDS 12/05/2009 NARINDER VISUAL DESIGNER, CEDRICK S 786.2 COUGH 12/05/2009 NARINDER VISUAL DESIGNER, CEDRICK S V15.85 PERSONAL HISTORY OF CONTACT WITH AND (SUSPECTED) EXPOSURE TO POTENTIALLY HAZARDOUS BODY FLUIDS 01/18/2010 ELI KNIGHT DDS 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 01/18/2010 YURY BARCENAS APRNA S 525.9 UNSPECIFIED DISORDER OF THE TEETH [...] THE TEETH AND SUPPORTING STRUCTURES 01/18/2010 NARINDER VISUAL DESIGNER, CEDRICK S 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 01/18/2010 MARBIN CARY DO 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 01/18/2010 NARINDER VISUAL DESIGNER, CEDRICK S 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 01/18/2010 NARINDER VISUAL DESIGNER, CEDRICK S 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 01/18/2010 NARINDER VISUAL DESIGNER, CEDRICK S 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 01/18/2010 NARINDER VISUAL DESIGNER, CEDRICK S 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 01/18/2010 NARINDER VISUAL DESIGNER, CEDRICK S 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 01/18/2010 NARINDER VISUAL DESIGNER, CEDRICK S 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 01/18/2010 NARINDER VISUAL DESIGNER CEDRICK S 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 01/18/2010 NARINDER VISUAL DESIGNER, CEDRICK S 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 01/18/2010 NARINDER VISUAL DESIGNER, CEDRICK S 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 01/18/2010 NARINDER VISUAL DESIGNER, CEDRICK S 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 09/04/2010 EUGENE DDS, ELI F 300.00 AN ANXIETY UNSPEC 09/04/2010 EUGENE DDS, ELI F 311 MO DEPRESS NOS 09/04/2010 NARINDER ARANGO CEDRICK S 300.00 AN ANXIETY UNSPEC 09/04/2010 MIRIAN BARCENAS APRNNDA S 311 MO DEPRESS NOS 09/04/2010 MARBIN CARY DO 300.00 AN ANXIETY UNSPEC 09/04/2010 MARBIN CARY DO 311 MO DEPRESS NOS 09/04/2010 300.00 AN ANXIETY UNSPEC 09/04/2010 311 MO DEPRESS NOS 09/04/2010 300.00 AN ANXIETY UNSPEC 09/04/2010 311 MO DEPRESS NOS 09/04/2010 300.00 AN ANXIETY UNSPEC 09/04/2010 311 MO DEPRESS NOS 09/04/2010 300.00 AN ANXIETY UNSPEC 09/04/2010 311 MO DEPRESS NOS 09/04/2010 NARINDER VISUAL DESIGNER, CEDRICK S 300.00 AN ANXIETY UNSPEC 09/04/2010 NARINDER VISUAL DESIGNER, CEDRICK S 311 MO DEPRESS NOS 09/04/2010 CARY DO, MARBIN K 300.00 AN ANXIETY UNSPEC 09/04/2010 CARY DO, MARBIN K 311 MO DEPRESS NOS 09/04/2010 NARINDER VISUAL DESIGNER, CEDRICK S 300.00 AN ANXIETY UNSPEC 09/04/2010 NARINDER VISUAL DESIGNER, CEDRICK S 311 MO DEPRESS NOS 09/04/2010 NARINDER VISUAL DESIGNER, CEDRICK S 300.00 AN ANXIETY UNSPEC 09/04/2010 NARINDER VISUAL DESIGNER, CEDRICK S 311 MO DEPRESS NOS 09/04/2010 NARINDER VISUAL DESIGNER, CEDRICK S 300.00 AN ANXIETY UNSPEC 09/04/2010 NARINDER VISUAL DESIGNER, CEDRICK S 311 MO DEPRESS NOS 09/04/2010 NARINDER VISUAL DESIGNER, CEDRICK S 300.00 AN ANXIETY UNSPEC 09/04/2010 NARINDER VISUAL DESIGNER, CEDRICK S 311 MO DEPRESS NOS 09/04/2010 NARINDER VISUAL DESIGNER, CEDRICK S 300.00 AN ANXIETY UNSPEC 09/04/2010 NARINDER VISUAL DESIGNER, CEDRICK S 311 MO DEPRESS NOS 09/04/2010 NARINDER VISUAL DESIGNER, CEDRICK S 300.00 AN ANXIETY UNSPEC 09/04/2010 NARINDER VISUAL DESIGNER, CEDRICK S 311 MO DEPRESS NOS 09/04/2010 NARINDER VISUAL DESIGNER, CEDRICK S 300.00 AN ANXIETY UNSPEC 09/04/2010 NARINDER VISUAL DESIGNER, CEDRICK S 311 MO DEPRESS NOS 09/04/2010 NARINDER VISUAL DESIGNER, CEDRICK S 300.00 AN ANXIETY UNSPEC 09/04/2010 NARINDER VISUAL DESIGNER, CEDRICK S 311 MO DEPRESS NOS 09/04/2010 NARINDER VISUAL DESIGNER, CEDRICK S 300.00 AN ANXIETY UNSPEC 09/04/2010 NARINDER VISUAL DESIGNER, CEDRICK S 311 MO DEPRESS NOS 09/04/2010 NARINDER VISUAL DESIGNER, CEDRICK S 300.00 AN ANXIETY UNSPEC 09/04/2010 NARINDER VISUAL DESIGNER, CEDRICK S 311 MO DEPRESS NOS 01/15/2011 Ot 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 01/15/2011 Ot 401.9 HYPERTENSION NOS 01/15/2011 Ot 618.2 UTEROVAG PROLAPS-INCOMPL 01/15/2011 Ot 620.1 CORPUS LUTEUM CYST 01/15/2011 Ot 625.3 DYSMENORRHEA 01/15/2011 Ot 625.6 FEM STRESS INCONTINENCE 01/15/2011 Ot 626.2 EXCESSIVE MENSTRUATION 05/05/2011 EUGENE DDS, ELI F 461.9 SINUSITIS ACUTE 05/05/2011 NARINDER VISUAL DESIGNER, CEDRICK S 461.9 SINUSITIS ACUTE 05/05/2011 ARIELLE CARY DOA K 461.9 SINUSITIS ACUTE 05/05/2011 461.9 SINUSITIS ACUTE 05/05/2011 461.9 SINUSITIS ACUTE 05/05/2011 461.9 SINUSITIS ACUTE 05/05/2011 461.9 SINUSITIS ACUTE 05/05/2011 NARINDER VISUAL DESIGNER, CEDRICK S 461.9 SINUSITIS ACUTE 05/05/2011 CARY DOARIELLEA K 461.9 SINUSITIS ACUTE 05/05/2011 NARINDER VISUAL DESIGNER, CEDRICK S 461.9 SINUSITIS ACUTE 05/05/2011 NARINDER VISUAL DESIGNER, CEDRICK S 461.9 SINUSITIS ACUTE 05/05/2011 NARINDER VISUAL DESIGNER, CEDRICK S 461.9 SINUSITIS ACUTE 05/05/2011 NARINDER VISUAL DESIGNER, CEDRICK S 461.9 SINUSITIS ACUTE 05/05/2011 NARINDER VISUAL DESIGNER, CEDRICK S 461.9 SINUSITIS ACUTE 05/05/2011 NARINDER VISUAL DESIGNER, CEDRICK S 461.9 SINUSITIS ACUTE 05/05/2011 NARINDER VISUAL DESIGNER, CEDRICK S 461.9 SINUSITIS ACUTE 05/05/2011 NARINDER VISUAL DESIGNER, CEDRICK S 461.9 SINUSITIS ACUTE 05/05/2011 NARINDER VISUAL DESIGNER, CEDRICK S 461.9 SINUSITIS ACUTE 05/05/2011 NARINDER VISUAL DESIGNER, CEDRICK S 461.9 SINUSITIS ACUTE 07/08/2011 EUGENE DDS, ELI F 719.47 PAIN IN JOINT INVOLVING ANKLE AND FOOT 07/08/2011 NARINDER VISUAL DESIGNER, CEDRICK S 719.47 PAIN IN JOINT INVOLVING [...] JOINT INVOLVING ANKLE AND FOOT 07/08/2011 NARINDER ARANGO CEDRICK S 719.47 PAIN IN JOINT INVOLVING ANKLE AND FOOT 07/08/2011 MIRIAN BARCENAS APRNNDA S 719.47 PAIN IN JOINT INVOLVING ANKLE AND FOOT 07/08/2011 MIRIAN BARCENAS APRNNDA S 719.47 PAIN IN JOINT INVOLVING ANKLE AND FOOT 07/08/2011 NARINDER ARANGO CEDRICK S 719.47 PAIN IN JOINT INVOLVING ANKLE AND FOOT 07/14/2011 EUGENE SEGURA, ELI Noguera 790.29 OTHER ABNORMAL GLUCOSE 07/14/2011 CEDRICK BARCENAS APRN S 790.29 OTHER ABNORMAL GLUCOSE 07/14/2011 MARBIN CARY DO 790.29 OTHER ABNORMAL GLUCOSE 07/14/2011 790.29 OTHER ABNORMAL GLUCOSE 07/14/2011 790.29 OTHER ABNORMAL GLUCOSE 07/14/2011 790.29 OTHER ABNORMAL GLUCOSE 07/14/2011 790.29 OTHER ABNORMAL GLUCOSE 07/14/2011 NARINDER VISUAL DESIGNER, CEDRICK S 790.29 OTHER ABNORMAL GLUCOSE 07/14/2011 ARIELLE CARY DOA K 790.29 OTHER ABNORMAL GLUCOSE 07/14/2011 NARINDER VISUAL DESIGNER, CEDRICK S 790.29 OTHER ABNORMAL GLUCOSE 07/14/2011 NARINDER VISUAL DESIGNER, CEDRICK S 790.29 OTHER ABNORMAL GLUCOSE 07/14/2011 NARINDER VISUAL DESIGNER, CEDRICK S 790.29 OTHER ABNORMAL GLUCOSE 07/14/2011 NARINDER VISUAL DESIGNER, CEDRICK S 790.29 OTHER ABNORMAL GLUCOSE 07/14/2011 NARINDER VISUAL DESIGNER, CEDRICK S 790.29 OTHER ABNORMAL GLUCOSE 07/14/2011 NARINDER VISUAL DESIGNER, CEDRICK S 790.29 OTHER ABNORMAL GLUCOSE 07/14/2011 NARINDER VISUAL DESIGNER, CEDRICK S 790.29 OTHER ABNORMAL GLUCOSE 07/14/2011 NARINDER VISUAL DESIGNER, CEDRICK S 790.29 OTHER ABNORMAL GLUCOSE 07/14/2011 NARINDER VISUAL DESIGNER, CEDRICK S 790.29 OTHER ABNORMAL GLUCOSE 07/14/2011 NARINDER VISUAL DESIGNER, CEDRICK S 790.29 OTHER ABNORMAL GLUCOSE 02/23/2012 EUGENE DDS, ELI F 307.81 TENSION HEADACHE 02/23/2012 NARINDER ARANGO, CEDRICK S 307.81 TENSION HEADACHE 02/23/2012 ARIELLE CARY DOA K 307.81 TENSION HEADACHE 02/23/2012 307.81 TENSION HEADACHE 02/23/2012 307.81 TENSION HEADACHE 02/23/2012 307.81 TENSION HEADACHE 02/23/2012 307.81 TENSION HEADACHE 02/23/2012 NARINDER ARANGO, CEDRICK S 307.81 TENSION HEADACHE 02/23/2012 ARIELLE CARY DOA K 307.81 TENSION HEADACHE 02/23/2012 NARINDER VISUAL DESIGNER, CEDRICK S 307.81 TENSION HEADACHE 02/23/2012 NARINDER [place], CEDRICK S 307.81 TENSION HEADACHE 02/23/2012 NARINDER VISUAL DESIGNER, CEDRICK S 307.81 TENSION HEADACHE 02/23/2012 NARINDER ARANGO, CEDRICK S 307.81 TENSION HEADACHE 02/23/2012 NARINDER ARANGO, CEDRICK S 307.81 TENSION HEADACHE 02/23/2012 NARINDER ARANGO, CEDRICK S 307.81 TENSION HEADACHE 02/23/2012 NARINDER ARANGO, CEDRICK S 307.81 TENSION HEADACHE 02/23/2012 NARINDER VISUAL DESIGNER, CEDRICK S 307.81 TENSION HEADACHE 02/23/2012 NARINDER VISUAL DESIGNER, CEDRICK S 307.81 TENSION HEADACHE 02/23/2012 NARINDER ARANGO, CEDRICK S 307.81 TENSION HEADACHE 03/09/2012 Ot 305.1 TOBACCO USE DISORDER 03/09/2012 Ot 629.32 EXPOSURE OF IMPLANT VAG MESH OTH PROST 06/22/2012 MIRIAN BARCENAS APRNNDA S 535.00 ACUTE GASTRITIS (WITHOUT HEMORRHAGE) 06/22/2012 MIRIAN BARCENAS APRNNDA S V18.0 FAMILY HISTORY OF DIABETES MELLITUS [...] V18.0 FAMILY HISTORY OF DIABETES MELLITUS 06/22/2012 MIRIAN BARCENAS APRNNDA S 535.00 ACUTE GASTRITIS (WITHOUT HEMORRHAGE) 06/22/2012 MIRIAN BARCENAS APRNNDA S V18.0 FAMILY HISTORY OF DIABETES MELLITUS 06/22/2012 MARBIN CARY DO K 535.00 ACUTE GASTRITIS (WITHOUT HEMORRHAGE) 06/22/2012 MARBIN CARY DO K V18.0 FAMILY HISTORY OF DIABETES MELLITUS 06/22/2012 NARINDER ARANGO CEDRICK S 535.00 ACUTE GASTRITIS (WITHOUT HEMORRHAGE) 06/22/2012 NARINDER ARANGO CEDRICK S V18.0 FAMILY HISTORY OF DIABETES MELLITUS 06/22/2012 MIRIAN BARCENAS APRNNDA S 535.00 ACUTE GASTRITIS (WITHOUT HEMORRHAGE) 06/22/2012 NARINDER VISUAL DESIGNER, CEDRICK S V18.0 FAMILY HISTORY OF DIABETES MELLITUS 06/22/2012 NARINDER VISUAL DESIGNER, CEDRICK S 535.00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 09/29/2017 Ot 346.90 MIGRAINE UNSPECIFIED W/O INTRACT MGRN W/ 09/29/2017 Ot 427.89 CARDIAC DYSRHYTHMIAS NEC 09/29/2017 Ot 346.90 MIGRAINE UNSPECIFIED W/O INTRACT MGRN W/ 09/29/2017 Ot 427.89 CARDIAC DYSRHYTHMIAS NEC 09/29/2017 ROBBIE SIMMS DO Ot V76.12 OTH SCREEN MAMMO-MALIGN NEOPLASM OF BHARGAV 09/29/2017 CEDRICK BARCENAS Ot R10.13 EPIGASTRIC PAIN 09/29/2017 DAYANA HELLER DO Ot R11.2 NAUSEA WITH VOMITING, UNSPECIFIED 09/29/2017 DAYANA HELLER DO Ot K82.8 OTHER SPECIFIED DISEASES OF GALLBLADDER 09/29/2017 DAYANA HELLER DO Ot Z01.818 ENCOUNTER FOR OTHER PREPROCEDURAL EXAMIN 09/29/2017 CEDRICK BARCENAS Ot M47.812 SPONDYLOSIS W/O MYELOPATHY OR RADICULOPA 09/29/2017 CEDRICK BARCENAS Ot M54.2 CERVICALGIA 09/29/2017 ROBBIE SIMMS DO Ot Z12.31 ENCNTR SCREEN MAMMOGRAM FOR MALIGNANT NE Procedures Code Description Performed By Performed On 59.79 URIN INCONTIN REPAIR NEC 01/14/2011 65.61 OTH REMOVE BOTH OVARIES/ TUBES 01/14/2011 68.51 ASSIST VAG HYSTER(LAVH) 01/14/2011 70.51 CYSTOCELE REPAIR 01/14/2011 02127 ROUTINE VENIPUNCTURE 08/19/2012 30359 A1C (IN-HOUSE) 08/19/2012 57988 CBC 08/19/2012 48179 CMP 08/19/2012 54137 LIPID PANEL 08/19/2012 7513178 GFR CALC (RESULT ONLY) 08/19/2012 59841 BNP 08/19/2012 81014 TSH 08/19/2012 93090 CRP HS (CARDIO) 08/19/2012 20009 EKG, TRACING (IN-HOUSE) 08/19/2012 CARDI BAQIR, REYNALDO 08/19/2012 34365 HOLTER MONITOR 11/16/2012 43971 PULMONARY FUNCTION TEST 12/06/2012 29526 PULMONARY FUNCTION TEST (IN- HOUSE) 01/28/2013 06959 RESPIRATORY FLOW VOLUME LOOP 01/28/2013 88801 PULMONARY EDUCATION 01/28/2013 79939 URINE DRUG SCREEN (IN-HOUSE ) 08/11/2013 13115 THERAPUTIC INJ SQ/IM 08/11/2013 J2550 PHENERGAN INJECTION UP TO 50 MG 08/11/2013 J1885 TORADOL INJ 08/11/2013 39041 ROUTINE VENIPUNCTURE 08/16/2013 75873 CBC 08/16/2013 29663 ROUTINE VENIPUNCTURE 08/24/2013 9761405 GFR CALC (RESULT ONLY) 08/24/2013 46141 CMP 08/24/2013 36201 LIPID PANEL 08/24/2013 17288 TSH 08/24/2013 34888 ROUTINE VENIPUNCTURE 10/19/2013 84744 TSH 10/19/2013 43290 ROUTINE VENIPUNCTURE 11/10/2013 21268 XRAY CERVICAL SPINE, 2 OR 3 VIEWS 11/10/2013 29455 OXIMETRY 11/10/2013 43109 URIC ACID 11/10/2013 26075 CRP 11/10/2013 78736 ASO 11/11/2013 28064 RA FACTOR 11/11/2013 ANAANA PIOTR ANALYZER (SCREEN) 11/11/2013 08335 ROUTINE VENIPUNCTURE 04/10/2014 63860 BONE MINERAL DENSITY, HEEL US (IN HOUSE) 04/10/2014 92441 CBC 04/10/2014 5827881 GFR CALC (RESULT ONLY) 04/10/2014 94132 CMP 04/10/2014 29276 LIPID PANEL 04/10/2014 39164 TSH 04/10/2014 10501 A1C (RML) 04/11/2014 41158 AMERITOX 04/12/2014 44118 SLEEP STUDY ([facility] SLEEP STUDY) 04/19/2014 Results Test Result Range Comp. Metabolic Panel (14) - 04/30/16 09:19 Glucose, Serum 127 mg/dL 65-99 BUN 11 mg/dL 6-24 Creatinine, Serum 0.77 mg/dL 0.57-1.00 eGFR If NonAfricn Am 91 mL/min/1.73 >59 eGFR If Africn Am 105 mL/min/1.73 >59 BUN/Creatinine Ratio 14 9-23 Sodium, Serum 144 mmol/L 136-144 Potassium, Serum 4.6 mmol/L 3.5-5.2 Chloride, Serum 102 mmol/L 97-106 Carbon Dioxide, Total 26 mmol/L 18-29 Calcium, Serum 10.0 mg/dL 8.7-10.2 Protein, Total, Serum 7.6 g/dL 6.0-8.5 Albumin, Serum 4.7 g/dL 3.5-5.5 Globulin, Total 2.9 g/dL 1.5-4.5 A/G Ratio 1.6 1.1-2.5 Bilirubin, Total 0.4 mg/dL 0.0-1.2 Alkaline Phosphatase, S 82 IU/L 39-117 AST (SGOT) 16 IU/L 0-40 ALT (SGPT) 24 IU/L 0-32 Lipid Panel - 04/30/16 09:19 Cholesterol, Total 224 mg/dL 100-199 Triglycerides 293 mg/dL 0-149 HDL Cholesterol 33 mg/dL >39 VLDL Cholesterol Venancio 59 mg/dL 5-40 LDL Cholesterol Calc 132 mg/dL 0-99 TSH - 04/30/16 09:19 TSH 1.030 uIU/mL 0.450-4.500 Written Authorization - 04/30/16 09:19 Written Authorization Comment Thyroid Stimulating Hormone - 11/17/16 23:54 TSH 7.11 mIU/mL 0.32-5.00 C-Reactive Protein - 11/17/16 23:54 C-Reactive Protein 0.27 mg/dL 0.00-0.50 TSH - 06/22/17 16:11 TSH 0.10 mIU/L NRG TSH w/ FREE T4 - 08/12/17 17:26 TSH 0.25 mIU/L NRG T4, FREE 1.3 ng/dL 0.8-1.8 Encounters ACCT No. Visit Date/Time Discharge Status Pt. Type Provider Facility Loc./Unit Complaint [id number] 09/18/2014 16:01:00 09/18/2014 23:59:59 CLS Outpatient NARINDER VISUAL DESIGNER CEDRICK S [id number] 06/27/2014 14:49:00 06/27/2014 23:59:59 CLS Outpatient NARINDER VISUAL DESIGNER, CEDRICK S [id number] 04/19/2014 13:27:00 04/19/2014 23:59:59 CLS Outpatient NARINDER VISUAL DESIGNER CEDRICK S [id number] 04/10/2014 12:06:00 04/10/2014 23:59:59 CLS Outpatient NARINDER VISUAL DESIGNER, CEDRICK S [id number] 01/17/2014 13:53:00 01/17/2014 23:59:59 CLS Outpatient NARINDER VISUAL DESIGNER, CEDRICK S [id number] 11/10/2013 12:50:00 11/10/2013 23:59:59 CLS Outpatient NARINDER VISUAL DESIGNER, CEDRICK S [id number] 10/19/2013 15:04:00 10/19/2013 23:59:59 CLS Outpatient NARINDER VISUAL DESIGNER, CEDRICK S [id number] 08/24/2013 08:51:00 08/24/2013 23:59:59 CLS Outpatient NARINDER VISUAL DESIGNER, CEDRICK S [id number] 08/16/2013 11:48:00 08/16/2013 23:59:59 CLS Outpatient NARINDER VISUAL DESIGNER, CEDRICK S [id number] 08/11/2013 11:52:00 08/11/2013 23:59:59 CLS Outpatient NARINDER VISUAL DESIGNER, CEDRICK S [id number] 04/21/2013 14:10:00 04/21/2013 23:59:59 CLS Outpatient MARBIN CARY DO [id number] 02/17/2013 12:23:00 02/17/2013 23:59:59 CLS Outpatient NARINDER VISUAL DESIGNER, CEDRICK S [id number] 08/19/2012 15:05:00 08/19/2012 23:59:59 CLS Outpatient MARBIN CARY DO [id number] 06/22/2012 13:32:00 06/22/2012 23:59:59 CLS Outpatient CEDRICK BARCENAS APRN [id number] 02/23/2012 12:21:00 02/23/2012 23:59:59 CLS Outpatient ELI KNIGHT DDS [id number] 01/28/2013 13:06:00 Document Registration [id number] 11/30/2012 13:29:00 Document Registration [id number] 11/12/2012 13:21:00 Document Registration [id number] 10/21/2012 18:05:00 Document Registration [id number] 05/01/2016 08:08:00 Document Registration [id number] 10/05/2017 16:00:00 10/05/2017 23:59:59 CLS Outpatient CEDRICK BARCENAS APRN [facility] [id number] 08/12/2017 17:00:00 Document Registration [id number] 06/22/2017 15:00:00 Document Registration [id number] 06/23/2017 11:23:00 06/23/2017 23:59:59 CLS Preadmit CEDRICK BARCENAS MOTOR COACH OPERATOR [facility] REHAB BACK AND NECK PAIN [id number] 02/17/2017 20:26:00 02/17/2017 21:14:00 DIS Emergency LUNA RENDON APRN [facility] ER ANKLE PAIN [id number] 10/14/2016 14:18:00 10/14/2016 23:59:59 CLS Outpatient ROBBIE SIMMS DO [facility] RAD SCREENING [id number] 09/19/2016 13:00:00 09/19/2016 23:59:59 CLS Outpatient CEDRICK BARCENAS MOTOR COACH OPERATOR [facility] RAD CERVICALGIA [id number] 07/23/2016 13:47:00 07/23/2016 23:59:59 CLS Preadmit YURY BARCENASA MOTOR COACH OPERATOR [facility] REHAB BACK PAIN [id number] 04/27/2015 05:58:00 04/27/2015 14:37:00 DIS Outpatient DAYANA HELLER DO [facility] SDC BILIARY DYSKNESIA [id number] 04/25/2015 11:25:00 04/25/2015 23:59:59 CLS Outpatient PINA FLORESDAYANA [facility] PREOP DILIARY DYSKNESIA [id number] 04/25/2015 11:11:00 04/25/2015 23:59:59 CLS Outpatient PINA FLORESDAYANA [facility] RAD N/V [id number] 04/22/2015 22:41:00 04/23/2015 02:17:00 DIS Emergency SHAYE JIMENEZ DO [facility] ER GALLBLADDER PAIN [id number] 04/19/2015 10:39:00 04/19/2015 23:59:59 CLS Outpatient CEDRICK BARCENASP [facility] RAD EPIGASTIC PAIN [id number] 01/08/2015 11:00:00 02/28/2015 00:01:00 DIS Outpatient YURY BARCENASA MOTOR COACH OPERATOR [facility] CARD BRADYCARDIA [id number] 09/15/2014 12:44:00 09/15/2014 14:27:00 DIS Emergency LUNA RENDON APRN [facility] ER BODYACHES DIARRHEA [id number] 01/25/2014 14:54:00 01/25/2014 23:59:59 CLS Outpatient DEMI FLORES ROBBIE C [facility] RAD ROUTINE [id number] 12/09/2013 15:28:00 12/09/2013 23:59:59 CLS Outpatient [id number] 08/18/2013 09:15:00 08/18/2013 16:39:00 DIS Outpatient YURY BARCENASA MOTOR COACH OPERATOR [facility] REHAB LOW BACK PAIN [id number] 11/19/2012 09:17:00 02/17/2013 00:01:00 DIS Outpatient MIRIAN BARCENASNDA MOTOR COACH OPERATOR [facility] CARD BRADYCARDIA [id number] 11/16/2012 10:50:00 02/14/2013 00:01:00 DIS Outpatient MIRIAN BARCENASNDA MOTOR COACH OPERATOR [facility] CARD BRADYCARDIA,SEVERE MIGRAINES [id number] 01/05/2013 21:13:00 01/06/2013 06:20:00 DIS Outpatient CEDRICK BARCENAS [facility] SLEEP SNORING,HAVING EPISODES OF BRADYCARDIA [id number] 11/09/2012 12:35:00 11/09/2012 19:25:00 DIS Outpatient JARRET VERMA FACC, MELONIE SOLITARIO CCDS [facility] CATH CHEST PAIN, SOB,BRADYCARDIA, [id number] 04/11/2015 15:42:00 Document Registration [id number] 02/18/2013 09:00:00 Document Registration [id number] 02/15/2013 10:00:00 Document Registration [id number] 03/09/2012 05:55:00 Document Registration [id number] 03/03/2012 13:06:00 Document Registration [id number] 08/25/2011 09:50:00 Document Registration [id number] 01/14/2011 05:50:00 Document Registration [id number] 01/09/2011 08:48:00 Document Registration [id number] 11/07/2010 09:43:00 Document Registration [id number] 10/14/2010 08:35:00 Document Registration [id number] 09/09/2010 17:06:00 Document Registration [id number] 08/21/2010 11:07:00 Document Registration [id number] 04/16/2010 14:16:00 Document Registration [id number] 01/07/2010 13:14:00 Document Registration [id number] 11/17/2016 23:41:00 11/18/2016 00:55:00 DIS Out[place] [facility] [place] [id number] 11/18/2016 00:19:47 Document Registration [id number] 05/03/2016 07:06:00 Document Registration
--- NOTE | 2017-11-10 20:43 | ED Neck-Back Pain/Injury ---
General Chief Complaint: General Problems/Pain Stated Complaint: NECK PAIN Nursing Triage Note: pt states she received an injection in her neck at [place] yesterday. pt states she has narrowing disks. pt believes it was a lidocaine and steroid shot. pt states she had immediate pain and told the doctor but he continued with the injection. pt states the pain has gotten worse today and is now radiating down the right side of her neck and right leg. pt is also c/o a migraine. Nursing Sepsis Screen: No Definite Risk Source of Information: Patient Exam Limitations: No Limitations History of Present Illness Date Seen by Provider: Nov 10, 2017 Time Seen by Provider: 20:40 Initial Comments to ER with reports of severe neck pain. She was seen by a paint crew supervisor in [place] yesterday with a cervical spine injection for ongoing neck pain with radicular symptoms. She states that she has worsening pain today affecting the right arm, a headache, was unable to sleep last night. Location: C-Spine Timing/Duration: 12-24 Hours Severity: Moderate Pain/Injury Location: Neck Associated Symptoms: No fever Allergies and Home Medications Allergies Coded Allergies: No Known Drug Allergies (Unverified , 01/13/11) Home Medications Albuterol Sulfate 2.5 Mg/3 Ml Vial.neb, 2.5 MG IH Q6H PRN for prn, (Reported) Calcium Carbonate 500 Mg Tablet, 1,000 MG PO DAILY, (Reported) Hydrocodone Bit/Acetaminophen 1 Each Tablet, 1 TAB PO Q4H PRN Prescribed by: DAYANA HELLER on 04/27/15 0957 Hyoscyamine Sulfate 0.125 Mg Tab.subl, 1-2 TAB SL Q4H Prescribed by: SHAYE JIMENEZ on 04/23/15134 Levothyroxine Sodium 100 Mcg Tablet, 100 MCG PO DAILY, (Reported) Ondansetron 4 Mg Tab.rapdis, 4 MG PO Q4H Prescribed by: SHAYE JIMENEZ on 04/23/15134 Pantoprazole Sodium 40 Mg Tablet.dr, 40 MG PO DAILY Prescribed by: SHAYE JIMENEZ on 04/23/15134 Patient Home Medication List Home Medication List Reviewed: Yes Constitutional: see HPI EENTM: see HPI Respiratory: no symptoms reported Cardiovascular: no symptoms reported Genitourinary: no symptoms reported Musculoskeletal: see HPI, neck pain Skin: no symptoms reported Psychiatric/Neurological: No Symptoms Reported Past Wbkmexh-Ajdwvf-Wewhjy Hx Patient Social History Type Used: Cigarettes Recent Foreign Travel: No Contact w/Someone Who Travel: No Recent Infectious Disease Expo: No Recent Hopitalizations: No Immunizations Up To Date Date of Influenza Vaccine: Mar 06, 2015 Seasonal Allergies Seasonal Allergies: No Past Medical History Hysterectomy, Orthopedic, Tonsillectomy, Tubal Ligation Headaches /Migraines Reproductive Disorders: No Female Reproductive Disorders: 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: Hysterectomy, Tubal Ligation Sexually Transmitted Disease: No HIV/AIDS: No Gastroesophageal Reflux, Chronic Constipation, Gall Bladder Disease Musculoskeletal: Yes Fibromyalgia Endocrine: Yes (THYROID) Hypothyroidsim Loss of Vision: Bilateral Hearing Impairment: Denies Depression Adverse Reaction/Blood Tranf: No Physical Exam Vital Signs Vital Signs - First Documented 11/10/17 11/10/17 20:21 21:37 Temp 97.7 Pulse 92 Resp 22 B/P (MAP) 151/108 (122) Pulse Ox 96 O2 Delivery Room Air Capillary Refill : Less Than 3 Seconds General Appearance: No Apparent Distress, WD/WN HEENT: PERRL/EOMI, TMs Normal Neck: Full Range of Motion, Normal Inspection Respiratory: No Accessory Muscle Use, No Respiratory Distress Gastrointestinal: Normal Bowel Sounds, Non Tender, Soft Extremity: Normal Capillary Refill, Normal Inspection Neurologic/Psychiatric: Alert, Oriented x3, No Motor/Sensory Deficits Skin: Normal Color, Warm/Dry Progress/Results/Core Measures Results/Orders My Orders Orders - LUNA RENDON APRN Prochlorperazine Injection (Compazine In (11/10/17 20:45) Ketorolac Injection (Toradol Injection) (11/10/17 20:45) Orphenadrine Injection (Norflex Injectio (11/10/17 20:45) Vital Signs/I&O 11/10/17 11/10/17 20:21 21:37 Temp 97.7 97.8 Pulse 92 58 Resp 22 12 B/P (MAP) 151/108 (122) 152/87 Pulse Ox 96 O2 Delivery Room Air Room Air Blood Pressure Mean: 122 Departure Impression Primary Impression: Cervical radiculopathy Disposition: 01 HOME, SELF-CARE Condition: Stable Departure-Patient Inst. Decision time for Depature: 20:42 Referrals: CEDRICK BARCENAS (PCP) Primary Care Physician [facility] (Family) Primary Care Physician Patient Instructions: NO INSTRUCTIONS GIVEN Add. Discharge Instructions: . Warm compresses to neck 2. Return to ER for any fevers 3. Follow-up with your doctor later this week.All discharge instructions reviewed with patient and/or family. Voiced understanding. Work/School Note: Work Release Form Date Seen in the Emergency Department: Nov 10, 2017 Return to Work: Nov 12, 2017 LUNA RENDON APRN Nov 10, 2017 20:43
[2017-11-10] MEDS ORDERED: ORPHENADRINE 60 MG/2 ML (NORFLEX) AMP IM ONE (20:45)
[2017-11-10] MEDS ORDERED: KETOROLAC 60 MG/2 ML VIAL IM ONE (20:45)
[2017-11-10] MEDS ORDERED: PROCHLORPERAZINE 10 MG/2ML INJ (COMPAZINE) IM ONE (20:45)
[2017-11-10 21:37] VITALS: BP 152/87
== END 2017-11-10 21:37 | disposition home or self-care (01) ==
LOC: EDUNIT# 19:30 → ER 19:31
DX: M54.12 Radiculopathy, cervical region (principal); G43.909 Migraine, unspecified, not intractable, without status migrainosus; K21.9 Gastro-esophageal reflux disease without esophagitis; E03.9 Hypothyroidism, unspecified; F32.9 Major depressive disorder, single episode, unspecified; Z87.19 Personal history of other diseases of the digestive system; Z90.89 Acquired absence of other organs; Z90.710 Acquired absence of both cervix and uterus; Z98.51 Tubal ligation status
CPT/HCPCS: 96372; 99284

== ENCOUNTER 2018-03-04 17:26 | Emergency (ER) | payer BC ==
[~2018-03-04] VITALS: Ht 160 cm; Wt 68.9 kg
--- OUTSIDE RECORDS SUMMARY | 2018-03-04 18:13 | XMS REPORT ---
Author Author CEDRICK BARCENAS Organization 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 [id number] [place] [address] 15427- 5291 Jan, Cervical spondylosis with radiculopathy M47.22 [facility] [id number] [place] [address] 46830- 3971 Jan, Reactive airway disease that is not asthma R09.89 [facility] [id number] [place] [address] 09219 -4560 Dec, Allergic dermatitis due to other chemical product L23.5 [facility] [id number] [place] [address] 85421- 9308 Dec, Cervical spondylosis with radiculopathy M47.22 and Depression, unspecified depression type F32.9 [place] [id number] [address]- 4956 Oct, [place] [id number] [place] [address] 46817- 0177 Oct, [place] [id number] [place] [address] 91425- 0449 Oct, [place] [id number] [place] [address] 72073- 1695 September, Chronic pain syndrome G89.4 [place] [id number] [place] [address] 26566- 0187 September, Depression, unspecified depression type F32.9 and Cervicalgia M54.2 [place] [id number] [place] [address] 12333- 4348 September, Chronic pain syndrome G89.4 [place] [id number] [place] [address] 15423- 3623 Aug, Red stool R19.5 [place] [id number] [place] [address] 59726- 3945 Aug, Depression, unspecified depression type F32.9 ; Chronic pain syndrome G89.4 ; Chronic tension-type headache, intractable G44.221 ; Red stool R19.5 ; Hypothyroidism, unspecified E03.9 and Mixed hyperlipidemia E78.2 [place] [id number] [place] [address] 69963- 4145 Jul, Major depressive disorder, recurrent episode, moderate F33.1 [place] [id number] [place] [address] 64449- 0765 Jul, [place] [id number] [place] [address] 19785- 4970 Jul, Hypothyroidism, unspecified E03.9 [place] [id number] [place] [address] 08014- 0127 Jul, Hypothyroidism, unspecified E03.9 [facility] [id number] [place] [address] 65809- 2292 Jul, Mixed hyperlipidemia E78.2 [facility] [id number] [place] [address] 12021- 2999 Jul, Mixed hyperlipidemia E78.2 [facility] [address] 02201 -2245 Jul, Bronchitis J40 ; Cough R05 and Wheezing R06.2 [place] [address] 44316- 7217 Jul, Major depressive disorder, recurrent episode, moderate F33.1 and Generalized anxiety disorder F41.1 [place] [address] 45459- 0387 Jul, [place] [address] 80524- 2622 Jul, Major depressive disorder, recurrent episode, moderate F33.1 and Generalized anxiety disorder F41.1 [place] [address] 43493- 8228 Jul, Generalized anxiety disorder F41.1 and Major depressive disorder, recurrent episode, moderate F33.1 [place] [id number] [place] [address] 01411- 3903 Jul, Mixed hyperlipidemia E78.2 [place] [id number] [place] [address] 68007- 9492 Jun, Depression, unspecified depression type F32.9 ; Cervicalgia M54.2 ; Trigger point M79.1 ; Hypothyroidism, unspecified E03.9 ; Screening, lipid Z13.220 and Mixed hyperlipidemia E78.2 [place] [id number] [place] [address] 39487- 7646 Jun, [place] [address] 29441- 9435 May, [place] [id number] [place] [address] 99934- 2628 Apr, Acute bronchitis due to other specified organisms J20.8 and Tobacco abuse counseling Z71.6 [place] [id number] [place] [address] 33730- 2638 Mar, Depression, unspecified depression type F32.9 [place] [address] 47535- 5112 Jan, Chronic pain syndrome G89.4 [place] [address] 74417- 2003 Nov, Anxiety F41.9 ; Depression, unspecified depression type F32.9 and Chronic pain syndrome G89.4 [place] [address] 26518- 9994 Oct, Anxiety F41.9 and Hypothyroidism, unspecified E03.9 [facility] [address] 33752 -5892 Oct, Left foot pain M79.672 and Contusion of left foot, 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 S90.32XA [place] [id number] [place] [address] 05192- 9631 Oct, [place] [id number] [place] [address] 81617- 1219 September, Cervicalgia M54.2 [place] [id number] [place] [address] 72621- 2954 September, [place] [address] 65175- 8045 Aug, Cervicalgia M54.2 [place] [id number] [place] [address] 22595- 5067 Aug, Cervicalgia M54.2 and Left arm numbness R20.0 [place] [address] [place] [address]- 2955 Aug, [facility] [id number] [place] [address] 79688- 0278 Aug, [facility] [id number] [place] [address] 81113- 2240 Jul, [facility] [id number] [place] [address] 37682- 7809 Jul, [facility] [id number] [place] [address] 80690- 2617 Jul, [facility] [id number] [place] [address] 08357- 0974 Jul, Acute midline low back pain without sciatica M54.5 [facility] [id number] [place] [address] 15171- 7685 Jun, Acute midline low back pain without sciatica M54.5 [facility] [id number] [place] [address] 76421- 4562 Jun, Chronic pain syndrome G89.4 and Muscle spasm M62.838 [facility] [id number] [place] [address] 78738- 6515 Jun, [facility] [id number] [place] [address] 45527- 6529 Jun, Acute midline low back pain without sciatica M54.5 [facility] [id number] [place] [address] 63513- 8093 Jun, [facility] [id number] [place] [address] 65895- 1895 May, [facility] [id number] [place] [address] 55225- 2656 May, Hypothyroidism, unspecified E03.9 ; Chronic pain syndrome G89.4 ; Hyperglycemia R73.9 ; Encounter for immunization Z23 and Mixed hyperlipidemia E78.2 [facility] [id number] [place] [address] 56421- 3545 30 Apr, [address] [facility] [id number] [place] [address] 75650- 5386 10 Apr, 2016 Chronic pain syndrome G89.4 [facility] [id number] [place] [address] 84028- 0546 Mar, [facility] [id number] [place] [address] 71521- 2179 Mar, Chronic pain syndrome G89.4 [facility] [id number] [place] [address] 16506- 6169 Jan, [facility] [id number] [place] [address] 01156- 8747 Dec, [facility] [id number] [place] [address] 01287- 7027 Dec, Chronic pain syndrome G89.4 [facility] [id number] [place] [address] 68462- 4295 Dec, Trigger point M79.2 [facility] [id number] [place] [address] 38388- 3011 Nov, Chronic pain syndrome G89.4 [facility] [id number] [place] [address] 58189- 1945 Oct, Chronic pain syndrome G89.4 [facility] [id number] [place] [address] 29323- 5043 Oct, Irritant contact dermatitis due to detergent L24.0 [facility] [id number] [place] [address] 44276- 8541 September, Hypothyroidism, unspecified E03.9 and Depression, unspecified depression type F32.9 [facility] [id number] [place] [address] 60518- 0627 September, Chronic pain syndrome G89.4 [facility] [id number] [address]- 9357 Aug, [facility] [address] [address]- 1224 Aug, Trigger point M79.2 [facility] [address] [address]- 9909 Jul, Chronic pain syndrome G89.4 and assisted 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.891 [facility] [id number] [place] [address] 03617- 3401 Jul, Chronic pain syndrome G89.4 and intermediate card tender 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.891 [facility] [address] [place] [address] 24288- 7409 Jul, [facility] [id number] [place] [address] 72615- 2737 Jul, [facility] [id number] [place] [address] 81945- 6420 Jun, [facility] [id number] [place] [address] 95660- 4917 May, [facility] [id number] [place] [address] 91395- 3890 May, [facility] [address] [address]- 9446 May, [facility] [id number] [place] [address] 54129- 8402 May, Pneumonia, organism unspecified, unspecified laterality, unspecified part of lung J18.9 [facility] [address] 2349 May, Pneumonia, organism unspecified, unspecified laterality, unspecified part of lung J18.9 [facility] [address] [address]- 2129 Apr, [facility] [id number], [place] [address]- 4110 Apr, [facility] [id number] [place] [address] 72217- 3395 Apr, [facility] [id number] [place] [address] 70069- 7183 Apr, [facility] [id number] [place] [address] 72288- 8276 Apr, [facility] [id number] [place] [address] 44822- 8441 Apr, Epigastric pain R10.13 [facility] [id number] [place] [address] 01232- 8487 Mar, Tinea pedis B35.3 and Contact dermatitis and eczema due to detergents L24.0 [facility] [id number] [place] [address] 45936- 2015 Mar, [facility] [address], [place] [address]- 5221 Jan, [facility] [id number] [place] [address] 17353- 7694 Jan, [facility] [address], [place] [address]- 7789 Jan, [facility] [address], [place] [address]- 0521 Dec, [facility] [address], [place] [address]- 5171 Nov, [facility] [id number] [place] [address] 71471- 8409 Nov, Fatigue 780.79 [facility] [address], [place] [address]- 1648 Nov, [facility] [id number] [place] [address] 71163- 4683 Nov, Unspecified myalgia and myositis 729.1 [facility] [id number] [place] [address] 10685- 0681 Nov, Hypercalcemia 275.42 [facility] [id number] [place] [address] 85656- 7295 Nov, Fatigue 780.79 ; Bradycardia 427.89 ; Chronic pain 338.29 and Family history of diabetes mellitus V18.0 [facility] [id number] [place] [address] 922575- 4417 Nov, Fatigue 780.79 ; Chronic pain 338.29 ; Family history of diabetes mellitus V18.0 ; Bradycardia 427.89 ; Hypothyroid 244.[address] [facility] [id number] [place] [address] 00444- 9714 Oct, [facility] [id number] [place] [address] 22194- 1434 September, [facility] [id number] [place] [address] 44955- 8902 Aug, [facility] [id number] [place] [address] 89409- 3314 Aug, [facility] [id number] [place] [address] 41145- 1238 Aug, [facility] [id number] [place] [address] 50180- 7012 Jul, [facility] [id number] [place] [address] 07236- 1211 Jul, [facility] [id number] [place] [address] 44882- 4258 Jul, [facility] [id number] [place] [address] 787870- 7950 Jul, [facility] [id number] [place] [address] 544851- 4517 Jun, [facility] [place] [facility] [address] [id number] [place] [address]- 2384 Jun, [facility] [place] [facility] [address] [id number] [place] [address]- 9260 Jun, [facility] [place] [facility] [address] [id number] [place] [address]- 0109 Jun, [facility] [place] [facility] [address] [id number] [place] [address]- 3548 Jun, [facility] [place] [facility] [address] [id number] [place] [address]- 4924 Jun, [facility] [place] [facility] [address] [id number] [place] [address]- 5357 May, [facility] [place] [facility] [address] [id number] [place] [address]- 1228 May, [facility] [place] [facility] [address] [id number] [place] [address]- 4668 May, [facility] [place] [facility] [address] [id number] [place] [address]- 4526 May, [facility] [place] [facility] [address] [id number] [place] [address]- 6783 May, [facility] [place] [facility] [address] [id number] [place] [address]- 6600 15 May, 2014 [facility] [place] [facility] [address] [id number] [place] [address]- 5938 May, [facility] [place] [facility] [address] [id number] [place] [address]- 0283 May, [facility] [place] [facility] [address] [id number] [place] [address]- 2315 May, [facility] [place] [facility] [address] [id number] [place] [address]- 2080 May, [facility] [place] [facility] [address] [id number] [place] [address]- 0633 Apr, [facility] [place] [facility] [address] [id number] [place] [address]- 9179 Apr, [facility] [place] [facility] [address] [id number] [place] [address]- 7783 Apr, [facility] [place] [facility] [address] [id number] [place] [address]- 2671 Apr, [facility] [place] [facility] [address] [id number] [place] [address]- 2176 Apr, [facility] [place] [facility] [address] [id number] [place] [address]- 8075 Apr, [facility] [place] [facility] [address] [id number], [place] [address]- 2568 Apr, [facility] [place] [facility] [address] [id number], [place] [address]- 8371 Apr, [facility] [place] [facility] [address] [id number], [place] [address]- 5077 Apr, [facility] [place] [facility] [address] [id number], [place] [address]- 2422 17 Apr, 2014 [facility] [place] [facility] [address] [id number], [place] [address]- 7843 Apr, [facility] [place] [facility] [address] [id number], [place] [address]- 1623 Apr, [facility] [place] [facility] [address] [id number], [place] [address]- 2347 11 Apr, 2014 [facility] [place] [facility] [address] [id number], [place] [address]- 2454 10 Apr, 2014 [facility] [place] [facility] [address] [id number], [place] [address]- 6130 10 Apr, 2014 [facility] [place] [facility] [address] [id number], [place] [address]- 9996 16 Mar, 2014 [facility] [place] [facility] [address] [id number] [place] [address]- 2323 16 Mar, 2014 [facility] [place] [facility] [address] [id number] [place] [address]- 1125 Mar, [facility] [place] [facility] [address] [id number] [place] [address]- 1595 16 Mar, 2014 [facility] [place] [facility] [address] [id number] [place] [address]- 8098 Jan, [facility] [place] [facility] [address] [id number] [place] [address]- 3887 Jan, [facility] [place] [facility] [address] [id number] [place] [address]- 5569 Jan, [facility] [place] [facility] [address] [id number] [place] [address]- 2197 Jan, [facility] [place] [facility] [address] [id number] [place] [address]- 5125 Jan, [facility] [place] [facility] [address] [id number] [place] [address]- 4348 Jan, [facility] [place] [facility] [address] [id number] [place] [address]- 8393 Dec, [facility] [place] [facility] [address] [id number] [place] [address]- 3651 Dec, [facility] [place] [facility] [address] [id number] [place] [address]- 9524 Dec, [facility] [place] [facility] [address] [id number] [place] [address]- 5000 Dec, [facility] [place] [facility] [address] [id number] [place] [address]- 7323 Nov, [facility] [place] [facility] [address] [id number] [place] [address]- 3604 Nov, [facility] [place] [facility] [address] [id number] [place] [address]- 6697 Nov, [facility] [place] [facility] [address] [id number] [place] [address]- 5370 Nov, [facility] [place] [facility] [address] [id number] [place] [address]- 8367 Oct, [facility] [place] [facility] [address] [id number] [place] [address]- 1280 Oct, [facility] [place] [facility] [address] [id number] [place] [address]- 9727 Oct, [facility] [place] [facility] [address] [id number] [place] [address] Oct, [facility] [place] [facility] [address] [id number] [place] [address] Oct, [facility] [place] [facility] [address] [id number] [place] [address] Oct, [facility] [place] [facility] [address] [id number] [place] [address] Oct, [facility] [place] [facility] [address] [id number] [place] [address] Oct, [facility] [place] [facility] [address] [id number] [place] [address] Oct, [facility] [place] [facility] [address] [id number] [place] [address] Oct, [facility] [place] [facility] [address] [id number] [place] [address] September, [facility] [place] [facility] [address] [id number] [place] [address] September, [facility] [place] [facility] [address] [id number] [place] [address] September, [facility] [place] [facility] [address] [id number] [place] [address] September, [facility] [place] [facility] [address] [id number] [place] [address] September, [facility] [place] [facility] [address] [id number] [place] [address] September, [facility] [place] [facility] [address] [id number] [place] [address] September, [facility] [place] [facility] [address] [id number] [place] [address] September, [facility] [place] [facility] [address] [id number] [place] [address] September, [facility] [place] [facility] [address] [id number] [place] [address] Aug, [facility] [place] [facility] [address] [id number] [place] [address] Aug, [facility] [place] [facility] [address] [id number] [place] [address] Aug, [facility] [place] [facility] [address] [id number] [place] [address] Aug, [facility] [place] [facility] [address] [id number] [place] [address] Aug, [facility] [place] [facility] [address] [id number] [place] [address] Aug, [facility] [place] [facility] [address] [id number] [place] [address] Aug, [facility] [place] [facility] [address] [id number] [place] [address] Aug, [facility] [place] [facility] [address] [id number] [place] [address] Jul, [facility] [place] [facility] [address] [id number] [place] [address] Jul, [facility] [place] [facility] [address] [id number] [place] [address] Jul, [facility] [place] [facility] [address] [id number] [place] [address] 24 Jul, 2013 [facility] [place] [facility] [address] [id number] [place] [address] 24 Jul, 2013 [facility] [place] [facility] [address] [id number] [place] [address] 21 Jul, 2013 [facility] [place] [facility] [address] [id number] [place] [address] 21 Jul, 2013 [facility] [place] [facility] [address] [id number] [place] [address] 18 Jul, 2013 [facility] [place] [facility] [address] [id number] [place] [address] 18 Jul, 2013 [facility] [place] [facility] [address] [id number] [place] [address] 17 Jul, 2013 [facility] [place] [facility] [address] [id number] [place] [address] 17 Jul, 2013 [facility] [place] [facility] [address] [id number] [place] [address] 13 Jul, 2013 [facility] [place] [facility] [address] [id number] [place] [address] 13 Jul, 2013 [facility] [place] [facility] [address] [address] [id number] [place] [address] 05 Jul, 2013 [facility] [place] [facility] [address] [id number] [place] [address] 05 Jul, 2013 [facility] [place] [facility] [address] [id number] [place] [address] 10 Jul, 2013 [facility] [place] [facility] [address] [id number] [place] [address] 10 Jul, 2013 [facility] [place] [facility] [address] [id number] [place] [address] 05 Jul, 2013 [facility] [place] [facility] [address] [id number] [place] [address] Jul, [facility] [place] [facility] [address] [id number] [place] [address] Jun, [facility] [place] [facility] [address] [id number], [place] [address] Jun, [facility] [place] [facility] [address] [facility] [id number] [place] [address] May, [facility] [place] [facility] [address] [id number], [place] [address] May, [facility] [place] [facility] [address] [id number] [place] [address] Apr, [facility] [place] [facility] [address] [id number], [place] [address] Apr, [facility] [place] [facility] [address] [id number], [place] [address] Apr, [facility] [place] [facility] [address] [id number], [place] [address] Apr, [facility] [place] [facility] [address] [id number], [place] [address] Apr, [facility] [place] [facility] [address] [id number], [place] [address] Apr, [facility] [place] [facility] [address] [id number], [place] [address] Mar, [facility] [place] [facility] [address] [id number], [place] [address] Mar, [facility] [place] [facility] [address] [id number], [place] [address] Mar, [facility] [place] [facility] [address] [id number], [place] [address] Mar, [facility] [place] [facility] [address] [id number], [place] [address] Jan, [facility] [place] [facility] [address] [id number] [place] [address] Jan, [facility] [address] [id number] [place] [address] Jan, [facility] [address] [id number] [place] [address] Dec, [facility] [address] [id number] [place] [address] Dec, [facility] [address] [id number] [place] [address] Dec, [facility] [address] [id number] [place] [address] Dec, [facility] [address] [id number] [place] [address] Nov, [facility] [address] [id number] [place] [address] 39[address] Nov, [facility] [address] [id number] [place] [address] Nov, [facility] [address] [id number] [place] [address] Oct, [facility] [address] [id number] [place] [address] Oct, [facility] [place] [facility] [address] [id number] [place] [address] Oct, [facility] [place] [facility] [address] [id number] [place] [address] 4060 Oct, [facility] [place] [facility] [address] [id number] [place] [address] 7735 Oct, [facility] [place] [facility] [address] [id number] [place] [address] 64[address] Oct, [facility] [place] [facility] [address] [id number] [place] [address] September, [facility] [place] [facility] [address] [id number] [place] [address] Jul, [facility] [address] [id number] [place] [address] 69[address] Jul, [facility] [place] [facility] [address] [id number] [place] [address] Jul, [facility] [place] [facility] [address] [id number] [place] [address] 8320 Jul, [facility] [address] [id number] [place] [address] 1694 Jul, [facility] [place] [facility] [address] [id number] [place] [address]99 Jul, [facility] [address] [id number] [place] [address] 2806 Jun, [facility] [address] [id number] [place] [address]- 267[address] Apr, [facility] [place] [facility] [address] [id number] [place] [address] 8149 Apr, [facility] [address] [id number] [place] [address] Jan, [facility] [place] [facility] [address] [id number] [place] [address] 2546 Dec, [facility] [place] [facility] [address] [id number] [place] [address] Nov, [facility] [place] [facility] [address] [id number] [place] [address]481 Oct, [facility] [place] [facility] [address] [id number] [place] [address] 37[address] September, [facility] [place] [facility] [address] [id number] [place] [address] September, [facility] [place] [facility] [address] [id number] [place] [address] 269[address] Jul, [facility] [address] [id number] [place] [address] 2506 Jul, [facility] [place] [facility] [address] [id number] [place] [address] 2546 28 Jul, 2011 [facility] [place] [facility] [address] [id number] [place] [address]- 1156 23 Jul, 2011 [facility] [place] [facility] [address] [id number] [place] [address]- 1689 22 Jul, 2011 [facility] [place] [facility] [address] [id number] [place] [address]- [address] 17 Jul, 2011 [facility] [place] [facility] [address] [id number] [place] [address]- [address]46 13 Jul, 2011 [facility] [address] [id number] [place] [address] 7546 11 Jul, 2011 [facility] [address] [id number] [place] [address] 3038 08 Jul, 2011 [facility] [place] [facility] [address] [id number] [place] [address] 07 Jul, 2011 [facility] [address] [facility] [id number] [place] [address] Jun, [facility] [address] [id number] [place] [address] 2546 May, [facility] [place] [facility] [address] [id number] [place] [address] 2546 May, [facility] [place] [facility] [address] [id number] [place] [address] 2546 May, [facility] [place] [facility] [address] [id number] [place] [address] 2546 Apr, [facility] [place] [facility] [address] [id number] [place] [address] 254 Apr, [facility] [address] [id number] [address] Mar, [facility] [id number], [place] [address]104 Mar, [facility] [id number], [place] [address] Mar, [facility] [id number], [place] [address] Mar, [facility] [id number] [address] Mar, [facility] [id number], [place] [address] 9158 September, [facility] [id number] [address] Mar, [facility] [id number], [place] [address] Dec, [facility] [id number] [address] May, 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 PLAN OF CARE Activity Details Follow Up prn Reason: Future/Pending Procedure NEBULIZER TREATMENT VITAL SIGNS Height 63 in 2018-02-03 Weight 159.7 lbs 2018-02-03 Temperature 98.0 degrees Fahrenheit 2018-02-03 Heart Rate 74 bpm 2018-02-03 Respiratory Rate 22 2018-02-03 Oximetry 93 % 2018-02-03 BMI 28.29 kg/m2 2018-02-03 Blood pressure systolic 132 mmHg 2018-02-03 Blood pressure diastolic 96 mmHg 2018-02-03 MEDICATIONS Medication Instructions Dosage Frequency Start Date End Date Duration Status Venlafaxine HCl ER 225 MG Orally Once a day 1 capsule with food 24h 30 Active PredniSONE 20 mg Orally Once a day 2 tablet 24h Jan, Jan, 05 days Active Promethazine-Codeine 6.25-10 MG/5ML Orally every 6 hrs 5 ml as needed 6h Jan, Active Levothyroxine Sodium 125 mcg Orally Once a day 1 tablet 24h 90 days Active Zithromax Z-Eugene 250 MG Orally Once a day 2 tablets on the first day, then 1 tablet daily for 4 days 24h Jan, Jan, 5 day(s) Active Hydrocodone-Acetaminophen 10-325 MG Orally Once a day 1 tablet 24h Dec, Jan, 28 days Active HydrOXYzine HCl 25 MG Orally Three times a day as needed for anxiety and sleep 1 tablet Jul, 30 days Active Oxygen Active Lipitor 40 mg Orally Once a day 1 tablet 24h Nov, 90 days Active RESULTS No Results PROCEDURES Procedure Date Ordered Result Body Site NEB/MDI RX INITIAL Feb 03, 2018 INSTRUCTIONS MEDICATIONS ADMINISTERED No Known Medications MEDICAL (GENERAL) HISTORY Type Description Date Medical History hypothyroidism Medical History anxiety Medical History chronic back pain Medical History hypercholesterolemia Medical History bronchitis Surgical History hysterectomy 2010 Surgical History revision of the mesh sling 2011 Surgical History cholecystectomy Surgical History tonsilectomy Surgical History L knee tumor removal Hospitalization History surgeries
--- OUTSIDE RECORDS SUMMARY | 2018-03-04 18:14 | XMS REPORT ---
Author Author CEDRICK BARCENAS Organization 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 [id number] [place] [address] 95991- 3540 14 Jan, 2018 Cervical spondylosis with radiculopathy M47.22 [facility] [id number] [place] [address] 81521- 5597 05 Jan, 2018 Reactive airway disease that is not asthma R09.89 [facility] [id number] [place] [address] 54904 -0935 Dec, Allergic dermatitis due to other chemical product L23.5 [facility] [id number] [place] [address] 30039- 7820 Dec, Cervical spondylosis with radiculopathy M47.22 and Depression, unspecified depression type F32.9 [facility] [address] [address] [address] Oct, [facility] [id number] [place] [address] 97855- 7460 Oct, [facility] [id number] [place] [address] 29555- 6660 Oct, [facility] [id number] [place] [address] 98471- 9482 September, Chronic pain syndrome G89.4 [facility] [id number] [place] [address] 01822- 9045 September, Depression, unspecified depression type F32.[address] [facility] [id number] [place] [address] 13052- 0647 September, Chronic pain syndrome G89.4 [facility] [id number] [place] [address] 92383- 3569 Aug, Red stool R19.5 [facility] [id number] [place] [address] 59088- 0419 Aug, Depression, unspecified depression type F32.9 ; Chronic pain syndrome G89.4 ; Chronic tension-type headache, intractable G44.221 ; Red stool R19.5 ; Hypothyroidism, unspecified E03.9 and Mixed hyperlipidemia E78.2 [place] [id number] [place] [address] 80541- 7788 Jul, Major depressive disorder, recurrent episode, moderate F33.1 [facility] [id number] [place] [address] 18047- 2634 Jul, [facility] [id number] [place] [address] 01826- 6889 Jul, Hypothyroidism, unspecified E03.9 [facility] [address] [address] 2871 Jul, Hypothyroidism, unspecified E03.9 [facility] [id number] [place] [address] 53301- 8863 Jul, Mixed hyperlipidemia E78.2 [facility] [address] 29375- 9007 Jul, Mixed hyperlipidemia E78.2 [facility] [id number] [place] [address] 72203 -0698 Jul, Bronchitis J40 ; Cough R[address]2 [facility] [address] 72749- 4499 Jul, Major depressive disorder, recurrent episode, moderate F33.1 and Generalized anxiety disorder F41.1 [place] [facility] [address] 41948- 4496 Jul, [place] [address] 33841- 6769 Jul, Major depressive disorder, recurrent episode, moderate F33.1 and Generalized anxiety disorder F41.1 [facility] [id number] [place] [address] 08661- 9619 Jul, Generalized anxiety disorder F41.1 and Major depressive disorder, recurrent episode, moderate F33.1 [facility] [id number] [place] [address] 56281- 7421 Jul, Mixed hyperlipidemia E78.2 [facility] [id number] [place] [address] 08831- 8279 Jun, Depression, unspecified depression type F32.9 ; Cervicalgia M54.2 ; Trigger point M79.1 ; Hypothyroidism, unspecified E03.9 ; Screening, lipid Z13.220 and Mixed hyperlipidemia E78.2 [facility] [id number] [place] [address] 18185- 3942 Jun, [facility] [id number] [place] [address] 68414- 4203 May, [facility] [address] 12059- 5059 Apr, Acute bronchitis due to other specified organisms J20.8 and Tobacco abuse counseling Z71.6 [place] [facility] [address] 06130- 8669 Mar, Depression, unspecified depression type F32.9 [place] [address] 59501- 9082 Jan, Chronic pain syndrome G89.4 [place] [address] 58799- 5671 Nov, Anxiety F41.9 ; Depression, unspecified depression type F32.9 and Chronic pain syndrome G89.4 [place] [facility] [address] 11180- 6231 Oct, Anxiety F41.9 and Hypothyroidism, unspecified E03.9 [facility] [address] 06524 -5699 Oct, Left foot pain M79.672 and Contusion of left foot, 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 S90.32XA [place] [facility] [address] 14036- 5383 Oct, [place] [facility] [address] 53082- 7900 September, Cervicalgia M54.2 [place] [facility] [address] 19852- 3584 September, [place] [facility] [address] 95192- 6572 Aug, Cervicalgia M54.2 [place] [facility] [address] 40707- 6304 Aug, Cervicalgia M54.2 and Left arm numbness R20.0 [place] [facility] [address] 84839- 7802 Aug, [place] [id number] [place] [address] 09261- 3502 Aug, [facility] [id number] [place] [address] 46792- 6663 Jul, [facility] [id number] [place] [address] 65052- 7749 Jul, [facility] [id number] [place] [address] 79871- 7888 Jul, [facility] [id number] [place] [address] 62459- 2472 Jul, Acute midline low back pain without sciatica M54.5 [facility] [id number] [place] [address] 20432- 4109 Jun, Acute midline low back pain without sciatica M54.5 [facility] [id number] [place] [address] 67498- 7743 Jun, Chronic pain syndrome G89.4 and Muscle spasm M62.838 [facility] [id number] [place] [address] 71740- 4381 Jun, [facility] [id number] [place] [address] 79172- 8419 Jun, Acute midline low back pain without sciatica M54.5 [facility] [id number] [place] [address] 14103- 0487 Jun, [facility] [id number] [place] [address] 94236- 0233 May, [facility] [id number] [place] [address] 84184- 7926 May, Hypothyroidism, unspecified E03.9 ; Chronic pain syndrome G89.4 ; Hyperglycemia R73.9 ; Encounter for immunization Z23 and Mixed hyperlipidemia E78.2 [facility] [id number] [place] [address] 25199- 6569 Apr, Fatigue 780.79 [facility] [id number] [place] [address] 09213- 3615 10 Apr, 2016 Chronic pain syndrome G89.4 [facility] [id number] [place] [address] 56390- 2669 Mar, [facility] [id number] [place] [address] 30265- 8026 Mar, Chronic pain syndrome G89.4 [facility] [id number] [place] [address] 06408- 6372 16 Jan, 2016 [facility] [id number] [place] [address] 47726- 2882 Dec, [facility] [id number] [place] [address] 65816- 4763 Dec, Chronic pain syndrome G89.4 [facility] [id number] [place] [address] 26598- 7144 Dec, Trigger point M79.2 [facility] [id number] [place] [address] 27175- 4094 Nov, Chronic pain syndrome G89.4 [facility] [id number] [place] [address] 51653- 1516 Oct, Chronic pain syndrome G89.4 [facility] [id number] [place] [address] 81804- 2827 Oct, Irritant contact dermatitis due to detergent L24.0 [facility] [id number] [place] [address] 32546- 6546 September, Hypothyroidism, unspecified E03.9 and Depression, unspecified depression type F32.9 [facility] [id number] [place] [address] 36157- 7390 September, Chronic pain syndrome G89.4 [facility] [id number] [place] [address] 49924- 7692 Aug, [facility] [address] [address]- 6521 Aug, Trigger point M79.2 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 [address] [address]- 0943 Jul, [facility] [id number] [place] [address] 72082- 7015 Jul, [facility] [id number] [place] [address] 49880- 8345 Jun, [facility] [address] [address]- 5495 May, [facility] [id number] [place] [address] 06864- 0772 May, [facility] [address] [address]- 9014 May, [facility] [address] [address]- 9876 May, Pneumonia, organism unspecified, unspecified laterality, unspecified part of lung J18.9 [facility] [id number] [address]- 8171 May, Pneumonia, organism unspecified, unspecified laterality, unspecified part of lung J18.9 [facility] [address] [address]- 7094 Apr, [facility] [address] [address] 7714 Apr, [facility] [address] [address]- 6287 Apr, [facility] [address] [address]- 2233 Apr, [facility] [address] [address]- 1140 Apr, [facility] [id number] [place] [address] 28501- 2948 Apr, Epigastric pain R10.13 [facility] [id number] [place] [address] 75792- 0288 Mar, Tinea pedis B35.3 and Contact dermatitis and eczema due to detergents L24.0 [facility] [address] [address]- 2056 Mar, [facility] [id number] [place] [address] 97846- 0856 Jan, [facility] [address] [address]- 7995 Jan, [facility] [id number] [place] [address] 80576- 1994 Jan, [facility] [address] [address]- 7192 Dec, [facility] [address] [address]- 6285 Nov, [facility] [address] [address]- 8704 Nov, Fatigue 780.79 [facility] [address] 4751 Nov, [facility] [address] 2849 Nov, Unspecified myalgia and myositis 729.1 [facility] [id number] [place] [address] 70951- 3006 Nov, Hypercalcemia 275.42 [facility] [id number] [place] [address] 47483- 3386 Nov, Fatigue 780.79 ; Bradycardia 427.89 ; Chronic pain 338.29 and Family history of diabetes mellitus V18.0 [facility] [id number] [place] [address] 29690- 5836 Nov, Fatigue 780.79 ; Chronic pain 338.29 ; Family history of diabetes mellitus V18.0 ; Bradycardia 427.89 ; Hypothyroid 244.[address] [facility] [id number] [place] [address] 15328- 6526 Oct, [facility] [id number] [place] [address] 19686- 9876 September, [facility] [id number] [place] [address] 25489- 8036 Aug, [facility] [id number] [place] [address] 38708- 0310 Aug, [facility] [id number] [place] [address] 75574- 5928 Aug, [facility] [id number] [place] [address] 54549- 2546 Jul, [facility] [id number] [place] [address] 88013- 2546 Jul, [facility] [id number] [place] [address] 85893- 2546 Jul, [facility] [id number] [place] [address] 11658- 2546 Jul, [facility] [id number] [place] [address] 80202- 2546 Jun, [facility] [id number] [place] [address] 79749- 1137 Jun, [facility] [place] [facility] [address] [id number] [place] [address]- 1511 Jun, [facility] [place] [facility] [address] [id number] [place] [address]- 9035 Jun, [facility] [place] [facility] [address] [id number] [place] [address]- 2464 Jun, [facility] [place] [facility] [address] [id number] [place] [address]- 0036 Jun, [facility] [place] [facility] [address] [id number] [place] [address]- 8023 May, [facility] [place] [facility] [address] [id number] [place] [address]- 4676 May, [facility] [place] [facility] [address] [id number] [place] [address]- 4740 May, [facility] [place] [facility] [address] [id number] [place] [address]- 1792 May, [facility] [place] [facility] [address] [id number] [place] [address]- 2732 May, [facility] [place] [facility] [address] [id number] [place] [address]- 5333 May, [facility] [place] [facility] [address] [id number] [place] [address]- 4653 May, [facility] [place] [facility] [address] [id number] [place] [address]- 2216 May, [facility] [place] [facility] [address] [id number] [place] [address]- 6390 May, [facility] [place] [facility] [address] [id number] [place] [address]- 9750 May, [facility] [place] [facility] [address] [id number] [place] [address]- 5689 Apr, [facility] [place] [facility] [address] [id number] [place] [address]- 9647 Apr, [facility] [place] [facility] [address] [id number] [place] [address]- 1094 Apr, [facility] [place] [facility] [address] [id number] [place] [address]- 0665 Apr, [facility] [place] [facility] [address] [id number] [place] [address]- 5241 Apr, [facility] [place] [facility] [address] [id number] [place] [address]- 7908 Apr, [facility] [place] [facility] [address] [id number] [place] [address]- 4193 Apr, [facility] [place] [facility] [address] [id number] [place] [address]- 4995 Apr, [facility] [place] [facility] [address] [id number] [place] [address]- 4253 Apr, [facility] [place] [facility] [address] [id number] [place] [address]- 8410 17 Apr, 2014 [facility] [place] [facility] [address] [id number] [place] [address]- 3780 Apr, [facility] [place] [facility] [address] [facility] [id number] [place] [address]- 1734 Apr, [facility] [place] [facility] [address] [id number] [place] [address]- 1060 11 Apr, 2014 [facility] [place] [facility] [address] [id number] [address]- 3984 10 Apr, 2014 [facility] [place] [facility] [address] [id number] [place] [address]- 8192 10 Apr, 2014 [facility] [place] [facility] [address] [id number] [place] [address]- 3213 16 Mar, 2014 [facility] [place] [facility] [address] [id number] [address]- 6649 16 Mar, 2014 [facility] [place] [facility] [address] [id number] [place] [address]- 2794 Mar, [facility] [place] [facility] [address] [id number] [place] [address]- 1111 Mar, [facility] [place] [facility] [address] [id number] [place] [address]- 5131 Jan, [facility] [place] [facility] [address] [id number] [place] [address]- 1975 Jan, [facility] [place] [facility] [address] [id number] [place] [address]- 4593 Jan, [facility] [place] [facility] [address] [id number] [place] [address]- 4620 Jan, [facility] [place] [facility] [address] [id number] [place] [address]- 0311 Jan, [facility] [place] [facility] [address] [id number] [place] [address]- 6185 Jan, [facility] [place] [facility] [address] [id number] [place] [address]- 8725 Dec, [facility] [place] [facility] [address] [id number] [place] [address]- 4897 Dec, [facility] [place] [facility] [address] [id number] [place] [address]- 9405 Dec, [facility] [place] [facility] [address] [id number] [place] [address]- 3264 Dec, [facility] [place] [facility] [address] [id number] [place] [address]- 9874 Nov, [facility] [place] [facility] [address] [id number] [place] [address]- 0663 Nov, [facility] [place] [facility] [address] [id number] [place] [address]- 1539 Nov, [facility] [place] [facility] [address] [id number] [place] [address]- 2018 Nov, [facility] [place] [facility] [address] [id number] [place] [address]- 6687 Oct, [facility] [place] [facility] [address] [id number] [place] [address]- 9452 Oct, [facility] [place] [facility] [address] [id number] [place] [address]- 2258 Oct, [facility] [place] [facility] [address] [id number] [place] [address]- 2391 Oct, [facility] [place] [facility] [address] [id number] [place] [address]- 4434 Oct, [facility] [place] [facility] [address] [id number] [place] [address]- 6121 Oct, [facility] [place] [facility] [address] [id number] [place] [address]- 0700 Oct, [facility] [place] [facility] [address] [id number] [place] [address]- 2582 Oct, [facility] [place] [facility] [address] [id number] [place] [address]- 4131 Oct, [facility] [place] [facility] [address] [id number] [place] [address]- 2705 Oct, [facility] [place] [facility] [address] [id number] [place] [address]- 9670 September, [facility] [place] [facility] [address] [id number] [place] [address]- 7225 September, [facility] [place] [facility] [address] [id number] [place] [address]- 9605 September, [facility] [place] [facility] [address] [id number] [place] [address]- 9911 September, [facility] [place] [facility] [address] [id number] [place] [address]- 7501 September, [facility] [place] [facility] [address] [id number] [place] [address]- 5162 September, [facility] [address] [id number] [place] [address]- 0225 September, [facility] [address] [id number] [place] [address]- 1017 September, [facility] [address] [id number] [place] [address]- 7261 September, [facility] [address] [id number] [place] [address]- 8506 Aug, [facility] [address] [id number] [place] [address]- 7104 Aug, [facility] [address] [id number] [place] [address] Aug, [facility] [address] [id number] [place] [address] Aug, [facility] [address] [id number] [place] [address] Aug, [facility] [address] [id number] [place] [address] Aug, [facility] [address] [id number] [place] [address] Aug, [facility] [place] [facility] [address] [id number] [place] [address] Aug, [facility] [place] [facility] [address] [id number] [place] [address] Jul, [facility] [place] [facility] [address] [id number] [place] [address] Jul, [facility] [place] [facility] [address] [id number] [place] [address] Jul, [facility] [place] [facility] [address] [id number] [place] [address] Jul, [facility] [place] [facility] [address] [id number] [place] [address] 24 Jul, 2013 [facility] [place] [facility] [address] [id number] [place] [address] Jul, [facility] [place] [facility] [address] [id number] [place] [address] Jul, [facility] [place] [facility] [address] [id number] [place] [address] 18 Jul, 2013 [facility] [place] [facility] [address] [id number] [place] [address] 18 Jul, 2013 [facility] [place] [facility] [address] [id number] [place] [address] Jul, [facility] [place] [facility] [address] [id number] [place] [address] 17 Jul, 2013 [facility] [place] [facility] [address] [id number] [place] [address] Jul, [facility] [place] [facility] [address] [id number] [place] [address] Jul, [facility] [place] [facility] [address] [id number] [place] [address] 05 Jul, 2013 [facility] [place] [facility] [address] [id number] [place] [address] Jul, [facility] [place] [facility] [address] [id number] [place] [address] Jul, [facility] [place] [facility] [address] [id number] [place] [address] Jul, [facility] [place] [facility] [address] [id number] [place] [address] Jul, [facility] [place] [facility] [address] [id number] [place] [address] Jul, [facility] [place] [facility] [address] [id number] [place] [address] 08 Jun, 2013 [facility] [address] [id number] [place] [address] Jun, [facility] [place] [facility] [address] [id number] [place] [address] May, [facility] [place] [facility] [address] [id number] [place] [address] May, [facility] [place] [facility] [address] [id number] [place] [address] Apr, [facility] [place] [facility] [address] [id number] [place] [address] Apr, [facility] [place] [facility] [address] [id number] [place] [address] Apr, [facility] [place] [facility] [address] [id number] [place] [address] Apr, [facility] [place] [facility] [address] [id number] [place] [address] Apr, [facility] [place] [facility] [address] [id number] [place] [address] Apr, [facility] [place] [facility] [address] [id number] [place] [address] Mar, [facility] [place] [facility] [address] [id number] [place] [address] Mar, [facility] [place] [facility] [address] [id number] [address] Mar, [facility] [place] [facility] [address] [id number] [place] [address] Mar, [facility] [facility] [address] [id number] [place] [address] 19 Jan, 2013 [facility] [place] [facility] [address] [id number] [place] [address] 11 Jan, 2013 [facility] [place] [facility] [address] [id number] [place] [address] Jan, [facility] [place] [facility] [address] [id number] [place] [address] Dec, [facility] [place] [facility] [address] [id number] [place] [address] Dec, [facility] [place] [facility] [address] [id number] [place] [address] Dec, [facility] [place] [facility] [address] [id number] [place] [address] Dec, [facility] [place] [facility] [address] [id number] [place] [address] Nov, [facility] [place] [facility] [address] [id number] [place] [address] Nov, [facility] [place] [facility] [address] [id number] [place] [address] Nov, [facility] [place] [facility] [address] [id number] [place] [address] Oct, [facility] [place] [facility] [address] [id number] [place] [address] Oct, [facility] [place] [facility] [address] [id number] [place] [address] Oct, [facility] [place] [facility] [address] [id number] [place] [address] Oct, [facility] [place] [facility] [address] [id number] [place] [address] Oct, [facility] [place] [facility] [address] [id number] [place] [address] Oct, [facility] [place] [facility] [address] [id number] [place] [address] September, [facility] [place] [facility] [address] [id number] [place] [address] Jul, [facility] [place] [facility] [address] [id number] [place] [address] Jul, [facility] [place] [facility] [address] [id number] [place] [address] Jul, [facility] [place] [facility] [address] [id number] [place] [address] Jul, [facility] [place] [facility] [address] [id number] [place] [address] Jul, [facility] [place] [facility] [address] [id number] [place] [address] Jul, [facility] [place] [facility] [address] [id number] [place] [address] Jun, [facility] [place] [facility] [address] [id number] [place] [address] Apr, [facility] [place] [facility] [address] [id number] [place] [address] Apr, [facility] [place] [facility] [address] [id number] [place] [address] Jan, [facility] [place] [facility] [address] [id number] [place] [address] Dec, [facility] [place] [facility] [address] [id number] [place] [address] Nov, [facility] [place] [facility] [address] [id number] [place] [address] Oct, [facility] [place] [facility] [address] [id number] [place] [address] September, [facility] [place] [facility] [address] [id number] [place] [address] September, [facility] [place] [facility] [address] [id number] [place] [address] Jul, [facility] [address] [id number] [place] [address]- [address] 05 Jul, 2011 [facility] [place] [facility] [address] [id number] [place] [address]- [address] 28 Jul, 2011 [facility] [place] [address] [id number] [place] [address] 23 Jul, 2011 [facility] [address] [id number] [place] [address] 22 Jul, 2011 [facility] [place] [facility] [address] [id number] [place] [address] 17 Jul, 2011 [facility] [address] [id number] [place] [address] 118[address] 13 Jul, 2011 [facility] [place] [facility] [address] [id number] [place] [address]- [address] 11 Jul, 2011 [facility] [place] [facility] [address] [id number] [place] [address]- [address] 08 Jul, 2011 [facility] [place] [facility] [address] [id number] [place] [address] 07 Jul, 2011 [facility] [address] [facility] [id number] [place] [address] Jun, [facility] [address] [facility] [id number] [place] [address] May, [facility] [place] [facility] [address] [id number] [place] [address] May, [facility] [place] [facility] [address] [id number] [place] [address] 25[address] May, [facility] [address] [facility] [id number] [place] [address] 2546 Apr, [facility] [address] [id number] [place] [address] Apr, [facility] [address] [facility] [id number] [place] [address] Mar, [facility] [address] [id number] [address] Mar, [facility] [address] [facility] [id number] [address] Mar, [facility] [id number] [address] Mar, [facility] [id number] [address] Mar, [facility] [address] [facility] [id number] [address] September, [facility] [id number] [address] Mar, [facility] [id number] [address] Dec, [facility] [id number] [address] May, [facility] [address] [id number] [address] May, IMMUNIZATIONS No Known Immunizations SOCIAL HISTORY Never Assessed REASON FOR VISIT Controlled Med Refill 02/17/18 PLAN OF CARE VITAL SIGNS MEDICATIONS Medication Instructions Dosage Frequency Start Date End Date Duration Status Hydrocodone-Acetaminophen 10-325 MG Orally Once a day 1 tablet 24h Jan, 28 days Active RESULTS No Results PROCEDURES [...]
--- OUTSIDE RECORDS SUMMARY | 2018-03-04 18:14 | XMS REPORT ---
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 Active 613391768 Problem Cervical spondylosis with radiculopathy M47.22 Active 460240574 Problem Chronic tension-type headache, intractable G44.221 Active 939371665 Problem Anxiety F41.9 Active 39143393 Problem Mixed hyperlipidemia E78.2 Active 315197783 Problem Generalized anxiety disorder F41.1 Active 74036273 Problem Major depressive disorder, recurrent episode, moderate F33.1 Active 694561556 ALLERGIES Substance Reaction Event Type Date Status Glucophage 1,000 Mg Tablet making pt feel funny Non Drug Allergy Dec, Active ENCOUNTERS Encounter Location Date Diagnosis [facility] [id number] [place] [address] 74984- 4930 Jan, Cervical spondylosis with radiculopathy M47.22 [facility] [id number] [place] [address] 93774- 5396 Jan, Reactive airway disease that is not asthma R09.89 [facility] [id number] [place] [address] 96362 -6149 Dec, Allergic dermatitis due to other chemical product L23.5 [facility] [id number] [place] [address] 63198- 8405 Dec, Cervical spondylosis with radiculopathy M47.22 and Depression, unspecified depression type F32.9 [facility] [id number] [address] 35[address] Oct, [facility] [id number] [place] [address] 67745- 7493 Oct, [facility] [id number] [place] [address] 02189- 2357 Oct, [facility] [id number] [place] [address] 71168- 0073 September, Chronic pain syndrome G89.4 [facility] [id number] [place] [address] 34275- 9429 September, Depression, unspecified depression type F32.9 and Cervicalgia M54.2 [facility] [id number] [place] [address] 75111- 0943 September, Chronic pain syndrome G89.4 [facility] [id number] [place] [address] 70733- 0973 Aug, Red stool R19.5 [facility] [id number] [place] [address] 97618- 0534 Aug, Depression, unspecified depression type F32.9 ; Chronic pain syndrome G89.4 ; Chronic tension-type headache, intractable G44.221 ; Red stool R19.5 ; Hypothyroidism, unspecified E03.9 and Mixed hyperlipidemia E78.2 [facility] [id number] [place] [address] 45808- 5336 Jul, Major depressive disorder, recurrent episode, moderate F33.1 [facility] [id number] [place] [address] 43204- 6176 Jul, [facility] [id number] [place] [address] 98516- 6821 Jul, Hypothyroidism, unspecified E03.9 [facility] [id number] [place] [address] 80228- 9750 Jul, Hypothyroidism, unspecified E03.9 [facility] [id number] [place] [address] 50506- 7336 Jul, Mixed hyperlipidemia E78.2 [facility] [id number] [place] [address] 90424- 0959 Jul, Mixed hyperlipidemia E78.2 [facility] [address] 57612 -5861 Jul, Bronchitis J40 ; Cough R05 and Wheezing R06.2 [facility] [address] 68088- 1105 Jul, Major depressive disorder, recurrent episode, moderate F33.1 and Generalized anxiety disorder F41.1 [facility] [address] 73942- 1421 Jul, [facility] [address] 26464- 4700 Jul, Major depressive disorder, recurrent episode, moderate F33.1 and Generalized anxiety disorder F41.1 [facility] [address] 47194- 7107 Jul, Generalized anxiety disorder F41.1 and Major depressive disorder, recurrent episode, moderate F33.1 [facility] [id number] [place] [address] 02877- 0912 Jul, Mixed hyperlipidemia E78.2 [facility] [id number] [place] [address] 92423- 6295 Jun, Depression, unspecified depression type F32.9 ; Cervicalgia M54.2 ; Trigger point M79.1 ; Hypothyroidism, unspecified E03.9 ; Screening, lipid Z13.220 and Mixed hyperlipidemia E78.2 [facility] [id number] [place] [address] 37423- 7065 Jun, [facility] [address] 26802- 4194 May, [facility] [id number] [place] [address] 45840- 9439 Apr, Acute bronchitis due to other specified organisms J20.8 and Tobacco abuse counseling Z71.6 [facility] [id number] [place] [address] 58776- 0705 Mar, Depression, unspecified depression type F32.9 [facility] [address] 33153- 0754 Jan, Chronic pain syndrome G89.4 [facility] [address] 75613- 4609 Nov, Anxiety F41.9 ; Depression, unspecified depression type F32.9 and Chronic pain syndrome G89.4 [facility] [address] 46459- 2960 Oct, Anxiety F41.9 and Hypothyroidism, unspecified E03.9 [facility] [address] 70191 -0548 Oct, Left foot pain M79.672 and Contusion of left foot, 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 S90.32XA [facility] [id number] [place] [address] 50849- 5052 Oct, [facility] [id number] [place] [address] 48096- 1734 September, Cervicalgia M54.2 [facility] [id number] [place] [address] 16527- 0805 September, [facility] [address] 25355- 3311 Aug, Cervicalgia M54.2 [facility] [id number] [place] [address] 43700- 1875 Aug, Cervicalgia M54.2 and Left arm numbness R20.0 [facility] [address] [place] [address]- 4115 Aug, [facility] [id number] [place] [address] 76013- 5500 Aug, [facility] [id number] [place] [address] 87128- 6770 Jul, [facility] [id number] [place] [address] 90157- 1587 Jul, [facility] [id number] [place] [address] 38173- 6100 Jul, [facility] [id number] [place] [address] 02652- 0060 Jul, Acute midline low back pain without sciatica M54.5 [facility] [id number] [place] [address] 17077- 0322 Jun, Acute midline low back pain without sciatica M54.5 [facility] [id number] [place] [address] 65982- 8275 Jun, Chronic pain syndrome G89.4 and Muscle spasm M62.838 [facility] [id number] [place] [address] 62039- 5445 Jun, [facility] [id number] [place] [address] 74397- 3740 Jun, Acute midline low back pain without sciatica M54.5 [facility] [id number] [place] [address] 04460- 6810 Jun, [facility] [id number] [place] [address] 98462- 1792 May, [facility] [id number] [place] [address] 23343- 1608 May, Hypothyroidism, unspecified E03.9 ; Chronic pain syndrome G89.4 ; Hyperglycemia R73.9 ; Encounter for immunization Z23 and Mixed hyperlipidemia E78.2 [facility] [address] [place] [address] 17658- 7107 30 Apr, 2016 Fatigue 780.79 [facility] [id number] [place] [address] 76540- 2720 10 Apr, 2016 Chronic pain syndrome G89.4 [facility] [id number] [place] [address] 88456- 7038 Mar, [facility] [id number] [place] [address] 90652- 4145 Mar, Chronic pain syndrome G89.4 [facility] [id number] [place] [address] 96753- 8595 Jan, [facility] [id number] [place] [address] 57360- 8663 Dec, [facility] [id number] [place] [address] 11089- 3127 Dec, Chronic pain syndrome G89.4 [facility] [id number] [place] [address] 93449- 4779 Dec, Trigger point M79.2 [facility] [id number] [place] [address] 06785- 0021 Nov, Chronic pain syndrome G89.4 [facility] [id number] [place] [address] 75625- 0860 Oct, Chronic pain syndrome G89.4 [facility] [id number] [place] [address] 03456- 3603 Oct, Irritant contact dermatitis due to detergent L24.0 [facility] [id number] [place] [address] 02225- 3648 September, Hypothyroidism, unspecified E03.9 and Depression, unspecified depression type F32.9 [facility] [id number] [place] [address] 70006- 2190 September, Chronic pain syndrome G89.4 [facility] [id number] [address]- 4638 Aug, [facility] [address] [address]- 5381 Aug, Trigger point M79.2 [facility] [address], [place] [address]- 5146 Jul, Chronic pain syndrome G89.4 and shelter 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.891 [facility] [address] [place] [address] 55844- 7448 Jul, Chronic pain syndrome G89.4 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 [facility] [address] [place] [address] 57491- 2498 Jul, [facility] [id number] [place] [address] 87149- 2954 Jul, [facility] [id number] [place] [address] 06955- 3378 Jun, [facility] [id number] [place] [address] 78660- 1886 May, [facility] [id number] [place] [address] 59816- 2781 May, [facility] [address], [place] [address]- 1929 May, [facility] [id number] [place] [address] 28101- 4875 May, Pneumonia, organism unspecified, unspecified laterality, unspecified part of lung J18.9 [facility] [address] 1340 May, Pneumonia, organism unspecified, unspecified laterality, unspecified part of lung J18.9 [facility] [address], [place] [address]- 5626 Apr, [facility] [id number] [address]- 6479 Apr, [facility] [id number] [place] [address] 66472- 6446 Apr, [facility] [id number] [place] [address] 55440- 3649 Apr, [facility] [id number] [place] [address] 18862- 0675 Apr, [facility] [id number] [place] [address] 08768- 8182 Apr, Epigastric pain R10.13 [facility] [id number] [place] [address] 96643- 3981 Mar, Tinea pedis B35.3 and Contact dermatitis and eczema due to detergents L24.0 [facility] [id number] [place] [address] 08518- 4282 Mar, [facility] [address], [place] [address]- 6541 Jan, [facility] [id number] [place] [address] 81802- 7408 Jan, [facility] [address], [place] [address]- 3674 Jan, [facility] [address], [place] [address]- 3823 Dec, [facility] [address] [address]- 4950 Nov, [facility] [id number] [place] [address] 42724- 9796 Nov, Fatigue 780.79 [facility] [address], [place] [address]- 4865 Nov, [facility] [id number] [place] [address] 81763- 6571 Nov, Unspecified myalgia and myositis 729.1 [facility] [id number] [place] [address] 56123- 4018 Nov, Hypercalcemia 275.42 [facility] [id number] [place] [address] 71037- 8180 Nov, Fatigue 780.79 ; Bradycardia 427.89 ; Chronic pain 338.29 and Family history of diabetes mellitus V18.0 [facility] [id number] [place] [address] 537693- 1865 Nov, Fatigue 780.79 ; Chronic pain 338.29 ; Family history of diabetes mellitus V18.0 ; Bradycardia 427.89 ; Hypothyroid 244.9 and Anxiety 300.00 [facility] [id number] [place] [address] 80236- 7721 Oct, [facility] [id number] [place] [address] 85320- 7174 September, [facility] [id number] [place] [address] 90721- 1804 Aug, [facility] [id number] [place] [address] 47005- 6148 Aug, [facility] [id number] [place] [address] 58833- 1797 Aug, [facility] [id number] [place] [address] 94625- 5624 Jul, [facility] [id number] [place] [address] 27860- 4515 Jul, [facility] [id number] [place] [address] 31186- 8717 Jul, [facility] [id number] [place] [address] 035212- 8308 Jul, [facility] [id number] [place] [address] 123388- 3468 Jun, [facility] [place] [facility] [address] [id number] [place] [address]- 8300 Jun, [facility] [place] [facility] [address] [id number] [place] [address]- 9106 Jun, [facility] [place] [facility] [address] [id number] [place] [address]- 2225 Jun, [facility] [place] [facility] [address] [id number] [place] [address]- 8922 Jun, [facility] [place] [facility] [address] [id number] [place] [address]- 7170 Jun, [facility] [place] [facility] [address] [id number] [place] [address]- 7241 May, [facility] [place] [facility] [address] [id number] [place] [address]- 0406 May, [facility] [place] [facility] [address] [id number] [place] [address]- 4395 May, [facility] [place] [facility] [address] [id number] [place] [address]- 2549 May, [facility] [place] [facility] [address] [id number] [place] [address]- 8556 May, [facility] [place] [facility] [address] [id number] [place] [address]- 7297 15 May, 2014 [facility] [place] [facility] [address] [id number] [place] [address]- 5923 May, [facility] [place] [facility] [address] [id number] [place] [address]- 3471 May, [facility] [place] [facility] [address] [id number] [place] [address]- 5282 May, [facility] [place] [facility] [address] [id number] [place] [address]- 0306 May, [facility] [place] [facility] [address] [id number] [place] [address]- 6960 Apr, [facility] [place] [facility] [address] [id number] [place] [address]- 8150 Apr, [facility] [place] [facility] [address] [id number] [place] [address]- 2784 Apr, [facility] [place] [facility] [address] [id number] [place] [address]- 2520 Apr, [facility] [place] [facility] [address] [id number] [place] [address]- 2509 Apr, [facility] [place] [facility] [address] [id number] [place] [address]- 6861 Apr, [facility] [place] [facility] [address] [id number], [place] [address]- 3352 Apr, [facility] [place] [facility] [address] [id number], [place] [address]- 3287 Apr, [facility] [place] [facility] [address] [id number], [place] [address]- 4301 Apr, [facility] [place] [facility] [address] [id number], [place] [address]- 0954 17 Apr, 2014 [facility] [place] [facility] [address] [id number], [place] [address]- 0071 Apr, [facility] [place] [facility] [address] [id number], [place] [address]- 9956 Apr, [facility] [place] [facility] [address] [id number], [place] [address]- 2592 11 Apr, 2014 [facility] [place] [facility] [address] [id number], [place] [address]- 5338 10 Apr, 2014 [facility] [place] [facility] [address] [id number], [place] [address]- 2150 10 Apr, 2014 [facility] [place] [facility] [address] [id number], [place] [address]- 9731 16 Mar, 2014 [facility] [place] [facility] [address] [id number] [place] [address]- 3746 16 Mar, 2014 [facility] [place] [facility] [address] [id number] [place] [address]- 4732 Mar, [facility] [place] [facility] [address] [id number] [place] [address]- 8696 16 Mar, 2014 [facility] [place] [facility] [address] [id number] [place] [address]- 1895 Jan, [facility] [place] [facility] [address] [id number] [place] [address]- 2805 Jan, [facility] [place] [facility] [address] [id number] [place] [address]- 9496 Jan, [facility] [place] [facility] [address] [id number] [place] [address]- 0651 Jan, [facility] [place] [facility] [address] [id number] [place] [address]- 5079 Jan, [facility] [place] [facility] [address] [id number] [place] [address]- 6914 Jan, [facility] [place] [facility] [address] [id number] [place] [address]- 0220 Dec, [facility] [place] [facility] [address] [id number] [place] [address]- 7024 Dec, [facility] [place] [facility] [address] [id number] [place] [address]- 9703 Dec, [facility] [place] [facility] [address] [id number] [place] [address]- 9264 Dec, [facility] [place] [facility] [address] [id number] [place] [address]- 1037 Nov, [facility] [place] [facility] [address] [id number] [place] [address]- 2872 Nov, [facility] [place] [facility] [address] [id number] [place] [address]- 6372 Nov, [facility] [place] [facility] [address] [id number] [place] [address]- 1834 Nov, [facility] [place] [facility] [address] [id number] [place] [address]- 2664 Oct, [facility] [place] [facility] [address] [id number] [place] [address]- 3913 Oct, [facility] [place] [facility] [address] [id number] [place] [address]- 6295 Oct, [facility] [place] [facility] [address] [id number] [place] [address]- 0896 Oct, [facility] [place] [facility] [address] [id number] [place] [address]- 8094 Oct, [facility] [place] [facility] [address] [id number] [place] [address]- 5769 Oct, [facility] [place] [facility] [address] [id number] [place] [address]- 2226 Oct, [facility] [place] [facility] [address] [id number] [place] [address]- 8920 Oct, [facility] [place] [facility] [address] [id number] [place] [address]- 4102 Oct, [facility] [place] [facility] [address] [id number] [place] [address]- 0627 Oct, [facility] [place] [facility] [address] [id number] [place] [address]- 6561 September, [facility] [place] [facility] [address] [id number] [place] [address]- 5307 September, [facility] [place] [facility] [address] [id number] [place] [address]- 4207 September, [facility] [place] [facility] [address] [id number] [place] 6109 September, [facility] [place] [facility] [address] [id number] [place] [address] September, [facility] [place] [facility] [address] [id number] [place] [address] September, [facility] [place] [facility] [address] [id number] [place] [address] September, [facility] [place] [facility] [address] [id number] [place] [address] September, [facility] [place] [facility] [address] [id number] [place] [address] September, [facility] [place] [facility] [address] [id number] [place] [address] Aug, [facility] [place] [facility] [address] [id number] [place] [address] Aug, [facility] [place] [facility] [address] [id number] [place] [address] Aug, [facility] [place] [facility] [address] [id number] [place] [address] Aug, [facility] [place] [facility] [address] [id number] [place] [address] Aug, [facility] [place] [facility] [address] [id number] [place] [address] Aug, [facility] [place] [facility] [address] [id number] [place] [address] Aug, [facility] [place] [facility] [address] [id number] [place] [address] Aug, [facility] [place] [facility] [address] [id number] [place] [address] Jul, [facility] [place] [facility] [address] [id number] [place] [address] Jul, [facility] [place] [facility] [address] [id number] [place] [address] Jul, [facility] [place] [facility] [address] [id number] [place] [address] 24 Jul, 2013 [facility] [place] [facility] [address] [id number] [place] [address] 24 Jul, 2013 [facility] [place] [facility] [address] [id number] [place] [address] 21 Jul, 2013 [facility] [place] [facility] [address] [id number] [place] [address] 21 Jul, 2013 [facility] [place] [facility] [address] [id number] [place] [address] 18 Jul, 2013 [facility] [place] [facility] [address] [id number] [place] [address] 18 Jul, 2013 [facility] [place] [facility] [address] [id number] [place] [address] 17 Jul, 2013 [facility] [place] [facility] [address] [id number] [place] [address]- [address] 17 Jul, 2013 [facility] [place] [facility] [address] [id number] [place] [address]- [address] 13 Jul, 2013 [facility] [place] [facility] [address] [id number] [place] [address] 13 Jul, 2013 [facility] [place] [facility] [address] [id number] [place] [address]- [address] 05 Jul, 2013 [facility] [place] [facility] [address] [id number] [place] [address]- [address] 05 Jul, 2013 [facility] [place] [facility] [address] [id number] [place] [address]- [address] 10 Jul, 2013 [facility] [place] [facility] [address] [id number] [place] [address] 10 Jul, 2013 [facility] [place] [facility] [address] [id number] [place] [address] 05 Jul, 2013 [facility] [place] [facility] [address] [id number] [place] [address] Jul, [facility] [place] [facility] [address] [id number] [place] [address] Jun, [facility] [place] [facility] [address] [id number], [place] [address] Jun, [facility] [place] [facility] [address] [facility] [id number] [place] [address] May, [facility] [place] [facility] [address] [id number], [place] [address] May, [facility] [place] [facility] [address] [id number] [place] [address] Apr, [facility] [place] [facility] [address] [id number], [place] [address] Apr, [facility] [place] [facility] [address] [id number], [place] [address] Apr, [facility] [place] [facility] [address] [id number], [place] [address] Apr, [facility] [place] [facility] [address] [id number], [place] [address] Apr, [facility] [place] [facility] [address] [id number], [place] [address] Apr, [facility] [place] [facility] [address] [id number], [place] [address] Mar, [facility] [place] [facility] [address] [id number] [address] Mar, [facility] [place] [facility] [address] [id number], [place] [address] Mar, [facility] [place] [facility] [address] [id number], [place] [address] Mar, [facility] [place] [facility] [address] [id number], [place] [address] Jan, [facility] [place] [facility] [address] [id number] [place] [address] Jan, [facility] [address] [id number] [place] [address] Jan, [facility] [address] [id number] [place] [address] Dec, [facility] [address] [id number] [place] [address] Dec, [facility] [address] [id number] [place] [address] Dec, [facility] [address] [id number] [place] [address] Dec, [facility] [address] [id number] [place] [address] Nov, [facility] [address] [id number] [place] [address] Nov, [facility] [address] [id number] [place] [address] Nov, [facility] [address] [id number] [place] [address] Oct, [facility] [address] [id number] [place] [address] Oct, [facility] [place] [facility] [address] [id number] [place] [address] Oct, [facility] [place] [facility] [address] [id number] [place] [address] Oct, [facility] [place] [facility] [address] [id number] [place] [address] Oct, [facility] [place] [facility] [address] [id number] [place] [address]- [address] Oct, [facility] [place] [facility] [address] [id number] [place] [address] September, [facility] [place] [facility] [address] [id number] [place] [address] Jul, [facility] [address] [id number] [place] [address] Jul, [facility] [place] [facility] [address] [id number] [place] [address] Jul, [facility] [place] [facility] [address] [id number] [place] [address] Jul, [facility] [address] [id number] [place] [address]- [address] Jul, [facility] [place] [facility] [address] [id number] [place] [address] Jul, [facility] [address] [id number] [place] [address] Jun, [facility] [address] [id number] [place] [address] Apr, [facility] [place] [facility] [address] [id number] [place] [address] Apr, [facility] [address] [id number] [place] [address] Jan, [facility] [place] [facility] [address] [id number] [place] [address] Dec, [facility] [place] [facility] [address] [id number] [place] [address] Nov, [facility] [place] [facility] [address] [id number] [place] [address] Oct, [facility] [place] [facility] [address] [id number] [place] [address] September, [facility] [place] [facility] [address] [id number] [place] [address] September, [facility] [place] [facility] [address] [id number] [place] [address] Jul, [facility] [address] [id number] [place] [address] Jul, [facility] [place] [facility] [address] [id number] [place] [address] 2546 28 Jul, 2011 [facility] [place] [facility] [address] [id number] [place] [address]- [address] 23 Jul, 2011 [facility] [place] [facility] [address] [id number] [place] [address]- [address] 22 Jul, 2011 [facility] [place] [facility] [address] [id number] [place] [address] 17 Jul, 2011 [facility] [place] [facility] [address] [id number] [place] [address]- [address] 13 Jul, 2011 [facility] [address] [id number] [place] [address]- [address] 11 Jul, 2011 [facility] [address] [id number] [place] [address]- [address] 08 Jul, 2011 [facility] [place] [facility] [address] [id number] [place] [address]- [address] 07 Jul, 2011 [facility] [address] [facility] [id number] [place] [address] Jun, [facility] [address] [id number] [place] [address] 25[address] May, [facility] [place] [facility] [address] [id number] [place] [address] 25[address] May, [facility] [place] [facility] [address] [id number] [place] [address] 2546 May, [facility] [place] [facility] [address] [id number] [place] [address] 2546 Apr, [facility] [place] [facility] [address] [id number] [place] [address] Apr, [facility] [address] [id number], [place] [address] Mar, [facility] [id number], [place] [address] Mar, [facility] [id number], [place] [address] Mar, [facility] [id number], [place] [address] Mar, [facility] [id number], [place] [address] Mar, [facility] [id number], [place] [address] September, [facility] [id number], [place] [address] Mar, [facility] [id number], [place] [address] Dec, [facility] [id number], [place] [address] May, [facility] [address] [id number], [place] [address] May, IMMUNIZATIONS No Known Immunizations SOCIAL HISTORY Never Assessed REASON FOR VISIT Depression f/uCherelle Crews RN PLAN OF CARE Activity Details Follow Up 3 Months Reason:pain mgmt VITAL SIGNS Height 63 in 2018-01-20 Weight 164.3 lbs 2018-01-20 Temperature 98.2 degrees Fahrenheit 2018-01-20 Heart Rate 72 bpm 2018-01-20 Respiratory Rate 18 2018-01-20 BMI 29.10 kg/m2 2018-01-20 Blood pressure systolic 116 mmHg 2018-01-20 Blood pressure diastolic 72 mmHg 2018-01-20 MEDICATIONS Medication Instructions Dosage Frequency Start Date End Date Duration Status Albuterol Sulfate (2.5 MG/3ML) 0.083% Inhalation Three times a day 3 ml as needed 8h Jul, Active HydrOXYzine HCl 25 MG Orally Three times a day as needed for anxiety and sleep 1 tablet 06 Feb, 2018 30 days Active Cheratussin AC 100-10 MG/5ML Orally every 4 hrs 5 ml 4h Jul, Active Hydrocodone-Acetaminophen 10-325 MG Orally Once a day 1 tablet 24h Dec, Jan, 28 days Active Oxygen Active Lipitor 40 mg Orally Once a day 1 tablet 24h Nov, 90 days Active Levothyroxine Sodium 125 mcg Orally Once a day 1 tablet 24h 90 days Active Venlafaxine HCl ER 225 MG Orally Once a day 1 capsule with food 24h 30 Active RESULTS No Results PROCEDURES No Known [...]
[2018-03-04] MEDS ORDERED: KETOROLAC 60 MG/2 ML VIAL IM ONE (18:15)
[2018-03-04] MEDS ORDERED: diphenhydrAMINE 50 MG/ML INJ (BENADRYL) IM ONE (18:15)
[2018-03-04] MEDS ORDERED: PROCHLORPERAZINE 10 MG/2ML INJ (COMPAZINE) IJ ONE (18:15)
--- OUTSIDE RECORDS SUMMARY | 2018-03-04 18:15 | XMS REPORT ---
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 691871625 Problem Cervical spondylosis with radiculopathy M47.22 Active 366195753 Problem Chronic tension-type headache, intractable G44.221 Active 835326877 Problem Anxiety F41.9 Active 91796940 Problem Mixed hyperlipidemia E78.2 Active 890410746 Problem Generalized anxiety disorder F41.1 Active 05811967 Problem Major depressive disorder, recurrent episode, moderate F33.1 Active 252667085 ALLERGIES Substance Reaction Event Type Date Status Glucophage 1,000 Mg Tablet making pt feel funny Non Drug Allergy September, Active ENCOUNTERS Encounter Location Date Diagnosis [facility] [id number] [address] Jan, Reactive airway disease that is not asthma R09.89 [facility] [id number], [place] [address] Dec, Allergic dermatitis due to other chemical product L23.5 [facility] [id number] [place] [address] 20953- 9533 Dec, Cervical spondylosis with radiculopathy M47.22 and Depression, unspecified depression type F32.9 [facility] [id number], [place] [address] Oct, [facility] [id number] [place] [address] 59346- 4240 Oct, [facility] [id number] [place] [address] 18139- 7841 Oct, [facility] [id number] [place] [address] 61581- 6333 September, Chronic pain syndrome G89.4 [place] [address] [address] September, Depression, unspecified depression type F32.9 and Cervicalgia M54.2 [place] [address] [address]- 7124 September, Chronic pain syndrome G89.4 [place] [id number] [place] [address] 24889- 7417 Aug, Red stool R19.5 [place] [id number] [place] [address] 68270- 6917 Aug, Depression, unspecified depression type F32.9 ; Chronic pain syndrome G89.4 ; Chronic tension-type headache, intractable G44.221 ; Red stool R19.5 ; Hypothyroidism, unspecified E03.9 and Mixed hyperlipidemia E78.2 [place] [id number] [place] [address] 60756- 0788 Jul, Major depressive disorder, recurrent episode, moderate F33.1 [place] [id number] [place] [address] 25760- 2631 Jul, [place] [id number] [place] [address] 53573- 0456 Jul, Hypothyroidism, unspecified E03.9 [place] [id number] [place] [address] 32411- 2314 Jul, Hypothyroidism, unspecified E03.9 [place] [id number] [place] [address] 00689- 8330 Jul, Mixed hyperlipidemia E78.2 [facility] [id number] [place] [address] 97214- 8577 Jul, Mixed hyperlipidemia E78.2 [facility] [id number] [place] [address] 04038 -4179 Jul, Bronchitis J40 ; Cough R05 and Wheezing R06.2 [facility] [address] 79329- 0155 Jul, Major depressive disorder, recurrent episode, moderate F33.1 and Generalized anxiety disorder F41.1 [place] [address] 96494- 8160 Jul, [facility] [address] 34056- 7328 Jul, Major depressive disorder, recurrent episode, moderate F33.1 and Generalized anxiety disorder F41.1 [facility] [address] 87836- 6011 Jul, Generalized anxiety disorder F41.1 and Major depressive disorder, recurrent episode, moderate F33.1 [place] [id number] [place] [address] 22126- 7962 Jul, Mixed hyperlipidemia E78.2 [facility] [id number] [place] [address] 13771- 1350 Jun, Depression, unspecified depression type F32.9 ; Cervicalgia M54.2 ; Trigger point M79.1 ; Hypothyroidism, unspecified E03.9 ; Screening, lipid Z13.220 and Mixed hyperlipidemia E78.2 [place] [id number] [place] [address] 37073- 7069 Jun, [facility] [address] 60214- 2429 May, [facility] [id number] [place] [address] 85447- 7390 Apr, Acute bronchitis due to other specified organisms J20.8 and Tobacco abuse counseling Z71.6 [facility] [id number] [place] [address] 87913- 1297 Mar, Depression, unspecified depression type F32.9 [facility] [id number] [place] [address] 33100- 5227 Jan, Chronic pain syndrome G89.4 [facility] [address] 10397- 1946 Nov, Anxiety F41.9 ; Depression, unspecified depression type F32.9 and Chronic pain syndrome G89.4 [place] [address] 20136- 1531 Oct, Anxiety F41.9 and Hypothyroidism, unspecified E03.9 [facility] [id number] [place] [address] 24439 -2094 Oct, Left foot pain M79.672 and Contusion of left foot, 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 S90.32XA [facility] [id number] [place] [address] 36707- 5311 Oct, [place] [address] 28660- 6470 September, Cervicalgia M54.2 [place] [id number] [place] [address] 34658- 8380 September, [facility] [id number] [place] [address] 49031- 1235 Aug, Cervicalgia M54.2 [facility] [id number] [place] [address] 52365- 9625 Aug, Cervicalgia M54.2 and Left arm numbness R20.0 [facility] [id number] [place] [address] 32379- 8503 Aug, [facility] [address] 48938- 6748 Aug, [facility] [id number] [place] [address] 93804- 8650 Jul, [facility] [id number] [place] [address] 79652- 8187 Jul, [facility] [id number] [place] [address] 26329- 5138 Jul, [facility] [address] 14254- 0522 Jul, Acute midline low back pain without sciatica M54.5 [facility] [address] 07318- 9283 Jun, Acute midline low back pain without sciatica M54.5 [facility] [id number] [place] [address] 70598- 8150 Jun, Chronic pain syndrome G89.4 and Muscle spasm M62.838 [facility] [id number] [place] [address] 42513- 8349 Jun, [facility] [address] 91896- 4642 Jun, Acute midline low back pain without sciatica M54.5 [facility] [id number] [place] [address] 93736- 8651 Jun, [facility] [id number] [place] [address] 61604- 8784 May, [facility] [id number] [place] [address] 98282- 5609 May, Hypothyroidism, unspecified E03.9 ; Chronic pain syndrome G89.4 ; Hyperglycemia R73.9 ; Encounter for immunization Z23 and Mixed hyperlipidemia E78.2 [facility] [id number] [place] [address] 06285- 0763 Apr, Fatigue 780.79 [facility] [address] 41763- 2885 Apr, Chronic pain syndrome G89.4 [facility] [address], [place] [address] Mar, [facility] [id number] [place] [address] 30174- 7134 Mar, Chronic pain syndrome G89.4 [facility] [id number] [place] [address] 02131- 1418 Jan, [facility] [id number] [place] [address] 76691- 4026 Dec, [facility] [id number] [place] [address] 50935- 4103 Dec, Chronic pain syndrome G89.4 [facility] [id number] [place] [address] 09898- 1915 Dec, Trigger point M79.2 [facility] [id number] [place] [address] 67422- 9052 Nov, Chronic pain syndrome G89.4 [facility] [id number] [place] [address] 01052- 9876 Oct, Chronic pain syndrome G89.4 [facility] [address] [place] [address] 16871- 9354 Oct, Irritant contact dermatitis due to detergent L24.0 [facility] [address] [place] [address] 64592- 0355 September, Hypothyroidism, unspecified E03.9 and Depression, unspecified depression type F32.9 [facility] [address] [place] [address] 75029- 5700 September, Chronic pain syndrome G89.4 [facility] [address] [place] [address] 95247- 0316 Aug, [facility] [id number] [place] [address] 11627- 8258 Aug, Trigger point M79.2 [facility] [address], [place] [address] 4552 Jul, Chronic pain syndrome G89.4 and 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 [facility] [address], [place] [address]- 8386 Jul, Chronic pain syndrome G89.4 and jail 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.891 [facility] [address] [facility] [id number] [address] 2542 Jul, [facility] [id number] [place] [address] 69343- 0079 Jul, [facility] [address] [place] [address] 126643- 0955 Jun, [facility] [address] [place] [address] 99604- 6805 May, [facility] [address], [place] [address]- 4062 May, [facility] [id number] [place] [address] 03294- 1092 May, [facility] [address], [place] [address]- 6129 May, Pneumonia, organism unspecified, unspecified laterality, unspecified part of lung J18.9 [facility] [address], [place] [address]- 7377 May, Pneumonia, organism unspecified, unspecified laterality, unspecified part of lung J18.9 [facility] [address] 5799 Apr, [facility] [address], [place] [address]- 1120 Apr, [facility] [address], [place] [address]- 8617 Apr, [facility] [address] [place] [address] 76218- 7519 Apr, [facility] [id number] [place] [address] 50394- 7991 Apr, [facility] [id number] [place] [address] 27135- 3337 Apr, Epigastric pain R10.13 [facility] [id number] [place] [address] 34050- 7901 Mar, Tinea pedis B35.3 and Contact dermatitis and eczema due to detergents L24.0 [facility] [id number] [place] [address] 67942- 6623 Mar, [facility] [id number] [place] [address] 00066- 0763 Jan, [facility] [id number] [place] [address] 39288- 0237 Jan, [facility] [id number] [place] [address] 78673- 7156 Jan, [facility] [id number] [place] [address] 90626- 6058 Dec, [facility] [id number] [place] [address] 45749- 4994 Nov, [facility] [id number] [place] [address] 46614- 1736 Nov, Fatigue 780.79 [facility] [id number] [place] [address] 53869- 2934 Nov, [facility] [id number] [place] [address] 82305- 4120 Nov, Unspecified myalgia and myositis 729.1 [facility] [id number] [place] [address] 63372- 1971 Nov, Hypercalcemia 275.42 [facility] [address], [place] [address]- 6748 Nov, Fatigue 780.79 ; Bradycardia 427.89 ; Chronic pain 338.29 and Family history of diabetes mellitus V18.0 [facility] [id number] [place] [address] 10225- 2551 Nov, Fatigue 780.79 ; Chronic pain 338.29 ; Family history of diabetes mellitus V18.0 ; Bradycardia 427.89 ; Hypothyroid 244.9 and Anxiety 300.00 [facility] [id number] [address]- 6079 Oct, [facility] [id number] [place] [address] 08262- 0812 September, [facility] [id number] [place] [address] 72968- 1301 Aug, [facility] [id number] [place] [address] 67432- 7488 Aug, [facility] [id number] [place] [address] 11693- 9674 Aug, [facility] [id number] [place] [address] 03977- 1217 Jul, [facility] [address], [place] [address]- 7947 Jul, [facility] [id number] [place] [address] 462837- 1416 Jul, [facility] [address] 0881 Jul, [facility] [id number] [place] [address] 40818- 4156 Jun, [facility] [address], [place] [address]- 2576 Jun, [facility] [id number] [place] [address] [place] [address]- 8743 Jun, [facility] [place] [facility] [address] [id number] [place] [address]- 1702 Jun, [facility] [place] [facility] [address] [id number] [place] [address]- 3330 Jun, [facility] [place] [facility] [address] [id number] [place] [address]- 0897 Jun, [facility] [place] [facility] [address] [id number] [place] [address]- 3915 May, [facility] [place] [facility] [address] [id number] [place] [address]- 9739 May, [facility] [place] [facility] [address] [id number] [place] [address]- 1160 May, [facility] [place] [facility] [address] [id number] [place] [address]- 0822 May, [facility] [place] [facility] [address] [id number] [place] [address]- 1815 May, [facility] [place] [facility] [address] [id number] [place] [address]- 0793 May, [facility] [place] [facility] [address] [id number] [place] [address]- 5631 May, [facility] [place] [facility] [address] [id number] [place] [address]- 7744 May, [facility] [place] [facility] [address] [id number] [place] [address]- 7808 May, [facility] [place] [facility] [address] [id number] [place] [address]- 2237 May, [facility] [place] [facility] [address] [id number] [place] [address]- 2320 Apr, [facility] [place] [facility] [address] [id number] [place] [address]- 6879 Apr, [facility] [place] [facility] [address] [id number] [place] [address]- 4863 Apr, [facility] [place] [facility] [address] [id number] [place] [address]- 0424 Apr, [facility] [place] [facility] [address] [id number] [place] [address]- 7971 Apr, [facility] [place] [facility] [address] [id number] [place] [address]- 6032 Apr, [facility] [place] [facility] [address] [id number] [place] [address]- 4096 Apr, [facility] [place] [facility] [address] [id number] [place] [address]- 3640 Apr, [facility] [place] [facility] [address] [id number] [place] [address]- 2064 17 Apr, 2014 [facility] [place] [facility] [address] [id number] [place] [address]- 8208 17 Apr, 2014 [facility] [place] [facility] [address] [id number] [place] [address]- 1722 Apr, [facility] [place] [facility] [address] [id number] [place] [address]- 9116 Apr, [facility] [place] [facility] [address] [id number] [place] [address]- 0548 11 Apr, 2014 [facility] [place] [facility] [address] [id number] [place] [address]- 3302 10 Apr, 2014 [facility] [place] [facility] [address] [id number] [place] [address]- 7819 10 Apr, 2014 [facility] [place] [facility] [address] [id number] [place] [address]- 3642 16 Mar, 2014 [facility] [place] [facility] [address] [id number] [place] [address]- 1529 16 Mar, 2014 [facility] [place] [facility] [address] [id number] [place] [address]- 1915 Mar, [facility] [place] [facility] [address] [id number] [place] [address]- 4600 16 Mar, 2014 [facility] [place] [facility] [address] [id number] [place] [address]- 2249 Jan, [facility] [place] [facility] [address] [id number] [place] [address]- 7739 Jan, [facility] [place] [facility] [address] [id number] [place] [address]- 5686 Jan, [facility] [place] [facility] [address] [id number] [place] [address]- 5594 Jan, [facility] [place] [facility] [address] [id number] [place] [address]- 5279 Jan, [facility] [place] [facility] [address] [id number] [place] [address]- 5593 Jan, [facility] [place] [facility] [address] [id number] [place] [address]- 7948 Dec, [facility] [place] [facility] [address] [id number] [place] [address]- 0151 Dec, [facility] [place] [facility] [address] [id number] [place] [address]- 9834 Dec, [facility] [place] [facility] [address] [id number], [place] [address]- 9859 Dec, [facility] [place] [facility] [address] [id number], [place] [address]- 5730 Nov, [facility] [place] [facility] [address] [id number] [place] [address]- 3316 Nov, [facility] [place] [facility] [address] [id number], [place] [address]- 1657 Nov, [facility] [place] [facility] [address] [id number] [place] 5680 Nov, [facility] [place] [facility] [address] [id number] [place] [address]- 1999 Oct, [facility] [place] [facility] [address] [id number] [place] [address]- 6257 Oct, [facility] [place] [facility] [address] [id number] [place] [address]- 0809 Oct, [facility] [place] [facility] [address] [id number] [place] [address]- 0814 Oct, [facility] [place] [facility] [address] [id number] [place] [address]- 7726 Oct, [facility] [place] [facility] [address] [id number] [place] [address]- 8354 Oct, [facility] [place] [facility] [address] [id number] [place] [address]- 1077 Oct, [facility] [place] [facility] [address] [id number] [place] [address]- 8375 Oct, [facility] [place] [facility] [address] [id number] [place] [address]- 3406 Oct, [facility] [place] [facility] [address] [id number] [place] [address]- 9684 Oct, [facility] [place] [facility] [address] [id number] [place] [address]- 8048 September, [facility] [place] [facility] [address] [id number] [place] [address]- 7670 September, [facility] [place] [facility] [address] [id number] [place] [address]- 6727 September, [facility] [place] [facility] [address] [id number] [place] [address]- 8787 September, [facility] [place] [facility] [address] [id number] [place] [address]- 8251 September, [facility] [place] [facility] [address] [id number] [place] [address]- 9841 September, [facility] [place] [facility] [address] [id number] [place] [address]- 1239 September, [facility] [place] [facility] [address] [id number] [place] [address]- 8434 September, [facility] [place] [facility] [address] [id number] [place] [address]- 0275 September, [facility] [place] [facility] [address] [id number] [place] [address]- 8912 Aug, [facility] [place] [facility] [address] [id number] [place] [address]- 2400 Aug, [facility] [place] [facility] [address] [id number] [place] [address]- 5652 Aug, [facility] [place] [facility] [address] [id number] [place] [address]- 5758 Aug, [facility] [place] [facility] [address] [id number] [place] [address]- 5838 Aug, [facility] [place] [facility] [address] [id number] [place] [address]- 7702 Aug, [facility] [place] [facility] [address] [id number] [place] [address]- 0061 Aug, [facility] [place] [facility] [address] [id number] [place] [address] Aug, [facility] [place] [facility] [address] [id number] [place] [address] Jul, [facility] [place] [facility] [address] [id number] [place] [address] Jul, [facility] [place] [facility] [address] [id number] [place] [address] Jul, [facility] [place] [facility] [address] [id number] [place] 24 Jul, 2013 [facility] [place] [facility] [address] [id number] [place] [address] Jul, [facility] [place] [facility] [address] [id number] [place] [address] Jul, [facility] [place] [facility] [address] [id number] [place] [address] Jul, [facility] [place] [facility] [address] [id number] [place] [address] Jul, [facility] [place] [facility] [address] [id number] [place] [address] 18 Jul, 2013 [facility] [place] [facility] [address] [id number] [place] [address] Jul, [facility] [place] [facility] [address] [id number] [place] [address] Jul, [facility] [place] [facility] [address] [id number] [place] [address] Jul, [facility] [place] [facility] [address] [id number] [place] [address] Jul, [facility] [place] [facility] [address] [id number] [place] [address] Jul, [facility] [place] [facility] [address] [id number] [place] [address] Jul, [facility] [place] [facility] [address] [id number] [place] [address] Jul, [facility] [place] [facility] [address] [id number] [place] [address] Jul, [facility] [place] [facility] [address] [id number] [place] [address] Jul, [facility] [place] [facility] [address] [id number] [place] [address] 05 Jul, 2013 [facility] [place] [facility] [address] [facility] [id number] [place] [address] Jun, [facility] [place] [facility] [address] [id number] [place] [address] Jun, [facility] [place] [facility] [address] [id number] [place] [address] May, [facility] [place] [facility] [address] [id number] [place] [address] May, [facility] [place] [facility] [address] [id number] [place] [address] Apr, [facility] [place] [facility] [address] [id number] [place] [address] Apr, [facility] [place] [facility] [address] [id number] [place] [address] Apr, [facility] [place] [facility] [address] [id number] [place] [address] Apr, [facility] [place] [facility] [address] [id number] [place] [address] Apr, [facility] [place] [facility] [address] [id number] [place] [address] Apr, [facility] [place] [facility] [address] [id number] [place] [address] Mar, [facility] [place] [facility] [address] [id number] [place] [address] Mar, [facility] [place] [facility] [address] [id number] [place] [address] 15 Mar, 2013 [facility] [place] [facility] [address] [id number] [place] [address] 15 Mar, 2013 [facility] [place] [facility] [address] [id number] [place] [address] 19 Jan, 2013 [facility] [place] [facility] [address] [id number] [place] [address] 11 Jan, 2013 [facility] [place] [facility] [address] [id number] [place] [address] Jan, [facility] [place] [facility] [address] [id number] [place] [address] Dec, [facility] [place] [facility] [address] [id number] [place] [address] Dec, [facility] [place] [facility] [address] [id number] [place] [address] Dec, [facility] [place] [facility] [address] [id number] [place] [address] Dec, [facility] [place] [facility] [address] [id number] [place] [address] Nov, [facility] [place] [facility] [address] [id number] [place] [address] Nov, [facility] [place] [facility] [address] [id number] [place] [address] Nov, [facility] [place] [facility] [address] [id number] [place] [address] Oct, [facility] [place] [facility] [address] [id number] [place] [address] Oct, [facility] [place] [facility] [address] [id number] [place] [address] Oct, [facility] [place] [facility] [address] [id number] [place] [address] Oct, [facility] [place] [facility] [address] [id number] [address] Oct, [facility] [place] [facility] [address] [id number] [place] [address]207 Oct, [facility] [place] [facility] [address] [id number] [place] [address] September, [facility] [place] [facility] [address] [id number] [place] [address] Jul, [facility] [place] [facility] [address] [id number] [place] [address] Jul, [facility] [address] [id number] [place] [address] Jul, [facility] [place] [facility] [address] [id number] [place] [address] Jul, [facility] [address] [id number] [place] [address] Jul, [facility] [place] [facility] [address] [id number] [place] [address] Jul, [facility] [address] [id number] [place] [address] Jun, [facility] [address] [id number] [place] [address] Apr, [facility] [address] [id number] [place] [address] Apr, [facility] [address] [id number] [place] [address] Jan, [facility] [place] [facility] [address] [id number] [place] [address]- [address] Dec, [facility] [address] [id number] [place] [address] Nov, [facility] [address] [id number] [place] [address]186 Oct, [facility] [place] [facility] [address] [id number] [place] [address] September, [facility] [place] [facility] [address] [id number] [place] [address] September, [facility] [place] [facility] [address] [id number] [place] [address] Jul, [facility] [place] [facility] [address] [id number] [place] [address] Jul, [facility] [place] [facility] [address] [id number] [place] [address] 28 Jul, 2011 [facility] [place] [facility] [address] [id number] [place] [address]- [address]26 23 Jul, 2011 [facility] [place] [facility] [address] [id number] [place] [address] 2546 22 Jul, 2011 [facility] [place] [facility] [address] [id number] [place] [address]46 17 Jul, 2011 [facility] [place] [facility] [address] [id number] [place] [address] 2546 13 Jul, 2011 [facility] [place] [facility] [address] [id number] [place] [address]- [address] 11 Jul, 2011 [facility] [place] [facility] [address] [id number] [place] [address] 2546 08 Jul, 2011 [facility] [place] [facility] [address] [id number] [place] [address]- 2009 07 Jul, 2011 [facility] [place] [facility] [address] [id number] [place] [address] Jun, [facility] [place] [facility] [address] [id number] [place] [address] May, [facility] [place] [facility] [address] [id number] [place] [address] May, [facility] [place] [facility] [address] [id number] [place] [address] 2546 05 May, 2011 [facility] [place] [facility] [address] [id number] [place] [address] 2546 Apr, [facility] [place] [facility] [address] [id number] [place] [address]87 Apr, [facility] [place] [facility] [address] [facility] [id number] [place] [address] Mar, [facility] [place] [facility] [address] [id number] [address] Mar, [facility] [id number] [place] [address] Mar, [facility] [id number], [place] [address] Mar, [facility] [id number] [address] Mar, [facility] [id number], [place] [address] September, [facility] [id number] [place] [address] Mar, [facility] [id number], [place] [address] Dec, [facility] [id number] [place] [address] May, [facility] [address] [id number] [address] May, IMMUNIZATIONS No Known Immunizations SOCIAL HISTORY Never Assessed REASON FOR VISIT Wanting referral, reports already received referral. This is a f/u, reports always in pain in her back. Did not follow through with pain management d/t mom being in hospice. CBrumbackRN PLAN OF CARE Activity Details Follow Up prn Reason: VITAL SIGNS Height 63 in 2017-10-05 Weight 165.2 lbs 2017-10-05 Temperature 98.1 degrees Fahrenheit 2017-10-05 Heart Rate 76 bpm 2017-10-05 Respiratory Rate 18 2017-10-05 Oximetry 97 % 2017-10-05 BMI 29.26 kg/m2 2017-10-05 Blood pressure systolic 112 mmHg 2017-10-05 Blood pressure diastolic 74 mmHg 2017-10-05 MEDICATIONS Medication Instructions Dosage Frequency Start Date End Date Duration Status Hydrocodone-Acetaminophen 10-325 MG Orally 3 times a day 1 tablet as needed 8h 16 Aug, 2017 September, Active Lipitor 40 mg Orally Once a day 1 tablet 24h Nov, 90 days Active Levothyroxine Sodium 125 mcg Orally Once a day 1 tablet 24h 90 days Active Neurontin 600 MG Orally 3 times a day 1 tablet 8h Aug, 30 days Active Venlafaxine HCl ER 150 MG Orally Once a day 1 capsule with food 24h Aug 30 day(s) Active HydrOXYzine HCl 25 MG Orally Three times a day as needed for anxiety and sleep 1 tablet Jul, 30 days Active Albuterol Sulfate (2.5 MG/3ML) 0.083% Inhalation Three times a day 3 ml as needed 8h Jul, Active Cheratussin AC 100-10 MG/5ML Orally every 4 hrs 5 ml 4h Jul, Active Oxygen Active RESULTS No Results PROCEDURES No Known [...]
--- OUTSIDE RECORDS SUMMARY | 2018-03-04 18:15 | XMS REPORT ---
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 Active 201175840 Problem Cervical spondylosis with radiculopathy M47.22 Active 747744548 Problem Chronic tension-type headache, intractable G44.221 Active 293499013 Problem Anxiety F41.9 Active 40763542 Problem Mixed hyperlipidemia E78.2 Active 994640069 Problem Generalized anxiety disorder F41.1 Active 77123200 Problem Major depressive disorder, recurrent episode, moderate F33.1 Active 711511218 ALLERGIES Substance Reaction Event Type Date Status Glucophage 1,000 Mg Tablet making pt feel funny Non Drug Allergy Dec, Active ENCOUNTERS Encounter Location Date Diagnosis [facility] [id number] [place] [address] 94144- 6053 Jan, Cervical spondylosis with radiculopathy M47.22 [facility] [id number] [place] [address] 55219- 3415 Jan, Reactive airway disease that is not asthma R09.89 [facility] [id number] [place] [address] 03289 -1506 Dec, Allergic dermatitis due to other chemical product L23.5 [facility] [id number] [place] [address] 51160- 5220 Dec, Cervical spondylosis with radiculopathy M47.22 and Depression, unspecified depression type F32.9 [facility] [id number] [place] [address] 78171- 9385 Oct, [facility] [id number] [place] [address] 22536- 5620 Oct, [facility] [id number] [place] [address] 47225- 6627 Oct, [facility] [id number] [place] [address] 35984- 0311 September, Chronic pain syndrome G89.4 [facility] [address] 03719- 7780 September, Depression, unspecified depression type F32.9 and Cervicalgia M54.2 [facility] [id number] [place] [address] 98615- 9157 September, Chronic pain syndrome G89.4 [facility] [id number] [place] [address] 48287- 5048 Aug, Red stool R19.5 [facility] [id number] [place] [address] 36621- 1072 Aug, Depression, unspecified depression type F32.9 ; Chronic pain syndrome G89.4 ; Chronic tension-type headache, intractable G44.221 ; Red stool R19.5 ; Hypothyroidism, unspecified E03.9 and Mixed hyperlipidemia E78.2 [facility] [id number] [place] [address] 77789- 9284 Jul, Major depressive disorder, recurrent episode, moderate F33.1 [facility] [id number] [place] [address] 26357- 9653 Jul, [facility] [id number] [place] [address] 47061- 7423 Jul, Hypothyroidism, unspecified E03.9 [facility] [id number] [place] [address] 05171- 5745 Jul, Hypothyroidism, unspecified E03.9 [facility] [id number] [place] [address] 62766- 3282 Jul, Mixed hyperlipidemia E78.2 [facility] [id number] [place] [address] 33435- 9252 Jul, Mixed hyperlipidemia E78.2 [facility] [address] 56296 -0082 Jul, Bronchitis J40 ; Cough R05 and Wheezing R06.2 [facility] [address] 70892- 9224 Jul, Major depressive disorder, recurrent episode, moderate F33.1 and Generalized anxiety disorder F41.1 [facility] [address] 97938- 1362 Jul, [facility] [address] 17217- 3166 Jul, Major depressive disorder, recurrent episode, moderate F33.1 and Generalized anxiety disorder F41.1 [facility] [address] 66682- 1809 Jul, Generalized anxiety disorder F41.1 and Major depressive disorder, recurrent episode, moderate F33.1 [facility] [id number] [place] [address] 82775- 5502 Jul, Mixed hyperlipidemia E78.2 [facility] [id number] [place] [address] 87279- 2231 Jun, Depression, unspecified depression type F32.9 ; Cervicalgia M54.2 ; Trigger point M79.1 ; Hypothyroidism, unspecified E03.9 ; Screening, lipid Z13.220 and Mixed hyperlipidemia E78.2 [facility] [id number] [place] [address] 98102- 0312 Jun, [facility] [address] 42318- 2824 May, [facility] [id number] [place] [address] 56249- 5376 Apr, Acute bronchitis due to other specified organisms J20.8 and Tobacco abuse counseling Z71.6 [facility] [id number] [place] [address] 08039- 2801 Mar, Depression, unspecified depression type F32.9 [facility] [address] 72840- 9363 Jan, Chronic pain syndrome G89.4 [facility] [address] 97863- 5434 Nov, Anxiety F41.9 ; Depression, unspecified depression type F32.9 and Chronic pain syndrome G89.4 [facility] [id number] [place] [address] 85474- 9180 Oct, Anxiety F41.9 and Hypothyroidism, unspecified E03.9 [facility] [id number] [place] [address] 35416 -5264 Oct, Left foot pain M79.672 and Contusion of left foot, 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 S90.32XA [facility] [id number] [place] [address] 22481- 3961 Oct, [facility] [id number] [place] [address] 22684- 4131 September, Cervicalgia M54.2 [facility] [id number] [place] [address] 35285- 5785 September, [facility] [address] 05942- 9587 Aug, Cervicalgia M54.2 [facility] [id number] [place] [address] 38932- 3201 Aug, Cervicalgia M54.2 and Left arm numbness R20.0 [facility] [address] [place] [address]- 6424 Aug, [facility] [id number] [place] [address] 98348- 2078 Aug, [facility] [id number] [place] [address] 25201- 9280 Jul, [facility] [id number] [place] [address] 94834- 2976 Jul, [facility] [id number] [place] [address] 99464- 5565 Jul, [facility] [id number] [place] [address] 84882- 6242 Jul, Acute midline low back pain without sciatica M54.5 [facility] [id number] [place] [address] 65695- 5040 Jun, Acute midline low back pain without sciatica M54.5 [facility] [id number] [place] [address] 82239- 6602 Jun, Chronic pain syndrome G89.4 and Muscle spasm M62.838 [facility] [id number] [place] [address] 82481- 5320 Jun, [facility] [id number] [place] [address] 62966- 4420 Jun, Acute midline low back pain without sciatica M54.5 [facility] [id number] [place] [address] 51019- 9142 Jun, [facility] [id number] [place] [address] 65821- 9238 May, [facility] [id number] [place] [address] 475476- 9487 May, Hypothyroidism, unspecified E03.9 ; Chronic pain syndrome G89.4 ; Hyperglycemia R73.9 ; Encounter for immunization Z23 and Mixed hyperlipidemia E78.2 [facility] [id number] [place] [address] 48893- 5043 30 Apr, 2016 Fatigue 780.79 [facility] [id number] [place] [address] 86671- 6233 10 Apr, 2016 Chronic pain syndrome G89.4 [facility] [id number] [place] [address] 41410- 6231 18 Mar, 2016 [facility] [id number] [place] [address] 07420- 5591 Mar, Chronic pain syndrome G89.4 [facility] [id number] [place] [address] 79000- 7244 16 Jan, 2016 [facility] [id number] [place] [address] 91893- 0167 Dec, [facility] [id number] [place] [address] 89548- 6056 Dec, Chronic pain syndrome G89.4 [facility] [id number] [place] [address] 67285- 2014 Dec, Trigger point M79.2 [facility] [id number] [place] [address] 96870- 0155 Nov, Chronic pain syndrome G89.4 [facility] [id number] [place] [address] 95409- 3071 Oct, Chronic pain syndrome G89.4 [facility] [id number] [place] [address] 40684- 1907 Oct, Irritant contact dermatitis due to detergent L24.0 [facility] [id number] [place] [address] 65346- 6247 September, Hypothyroidism, unspecified E03.9 and Depression, unspecified depression type F32.9 [facility] [address] [address]- 5867 September, Chronic pain syndrome G89.4 [facility] [id number] [address]- 0218 Aug, [facility] [address] [address]- 3015 Aug, Trigger point M79.2 [facility] [address] [address]- 3781 Jul, Chronic pain syndrome G89.4 and 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 care administrator 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.891 [facility] [address] [place] [address] 177112- 3528 Jul, Chronic pain syndrome G89.4 and long-term 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.891 [facility] [address] [place] [address] 83557- 1449 Jul, [facility] [address] [address]- 6976 Jul, [facility] [id number] [place] [address] 45399- 4269 Jun, [facility] [address] [address]- 8610 May, [facility] [address] [address]- 7579 May, [facility] [address] [address]- 7145 May, [facility] [address] [address]- 0902 May, Pneumonia, organism unspecified, unspecified laterality, unspecified part of lung J18.9 [facility] [address] 8818 May, Pneumonia, organism unspecified, unspecified laterality, unspecified part of lung J18.9 [facility] [address] [address]- 1387 Apr, [facility] [id number] [address]- 0079 Apr, [facility] [id number] [place] [address] 45070- 3143 Apr, [facility] [id number] [place] [address] 12748- 0898 Apr, [facility] [id number] [place] [address] 05103- 4839 Apr, [facility] [id number] [place] [address] 28975- 4506 Apr, Epigastric pain R10.13 [facility] [id number] [place] [address] 16441- 2266 Mar, Tinea pedis B35.3 and Contact dermatitis and eczema due to detergents L24.0 [facility] [id number] [place] [address] 21197- 3100 Mar, [facility] [id number] [place] [address] 35408- 0916 Jan, [facility] [id number] [place] [address] 51286- 1502 Jan, [facility] [address] [address]- 7917 Jan, [facility] [id number] [place] [address] 68451- 3256 Dec, [facility] [id number] [place] [address] 82022- 3506 Nov, [facility] [id number] [place] [address] 76215- 5578 Nov, Fatigue 780.79 [facility] [address] [address]- 4389 Nov, [facility] [id number] [place] [address] 38650- 0222 Nov, Unspecified myalgia and myositis 729.1 [facility] [id number] [place] [address] 92328- 2861 Nov, Hypercalcemia 275.42 [facility] [id number] [place] [address] 70353- 4347 Nov, Fatigue 780.79 ; Bradycardia 427.89 ; Chronic pain 338.29 and Family history of diabetes mellitus V18.0 [facility] [id number] [place] [address] 43839- 5849 Nov, Fatigue 780.79 ; Chronic pain 338.29 ; Family history of diabetes mellitus V18.0 ; Bradycardia 427.89 ; Hypothyroid 244.9 and Anxiety 300.00 [facility] [id number] [place] [address] 18569- 4574 Oct, [facility] [id number] [place] [address] 26910- 7173 September, [facility] [id number] [place] [address] 36672- 7146 Aug, [facility] [id number] [place] [address] 03097- 0293 Aug, [facility] [id number] [place] [address] 35620- 3879 Aug, [facility] [id number] [place] [address] 40998- 5046 Jul, [facility] [id number] [place] [address] 82566- 5909 Jul, [facility] [id number] [place] [address] 24298- 0067 Jul, [facility] [id number] [place] [address] 55543- 7877 Jul, [facility] [id number] [place] [address] 28199- 8802 Jun, [facility] [place] [facility] [address] [id number] [place] [address]- 4385 Jun, [facility] [place] [facility] [address] [id number] [place] [address]- 2461 Jun, [facility] [place] [facility] [address] [id number] [place] [address]- 8098 Jun, [facility] [place] [facility] [address] [id number] [place] [address]- 7537 Jun, [facility] [place] [facility] [address] [id number] [place] [address]- 7026 Jun, [facility] [place] [facility] [address] [id number] [place] [address]- 8041 May, [facility] [place] [facility] [address] [id number] [place] [address]- 5207 May, [facility] [place] [facility] [address] [id number] [place] [address]- 2700 May, [facility] [place] [facility] [address] [id number] [place] [address]- 5530 May, [facility] [place] [facility] [address] [id number] [place] [address]- 3926 15 May, 2014 [facility] [place] [facility] [address] [id number] [place] [address]- 4819 15 May, 2014 [facility] [place] [facility] [address] [id number] [place] [address]- 2595 May, [facility] [place] [facility] [address] [id number] [place] [address]- 3178 May, [facility] [place] [facility] [address] [id number] [place] [address]- 8454 May, [facility] [place] [facility] [address] [id number] [place] [address]- 2491 May, [facility] [place] [facility] [address] [id number], [place] [address]- 8909 Apr, [facility] [place] [facility] [address] [id number] [place] [address]- 4269 Apr, [facility] [place] [facility] [address] [id number] [place] [address]- 1603 Apr, [facility] [place] [facility] [address] [id number] [place] [address]- 0603 Apr, [facility] [place] [facility] [address] [id number], [place] [address]- 6735 Apr, [facility] [place] [facility] [address] [id number] [place] [address]- 0983 Apr, [facility] [place] [facility] [address] [id number], [place] [address]- 6832 Apr, [facility] [place] [facility] [address] [id number], [place] [address]- 5022 Apr, [facility] [place] [facility] [address] [id number], [place] [address]- 6942 Apr, [facility] [place] [facility] [address] [id number], [place] [address]- 9799 17 Apr, 2014 [facility] [place] [facility] [address] [id number], [place] [address]- 4992 Apr, [facility] [place] [facility] [address] [id number], [place] [address]- 0385 Apr, [facility] [place] [facility] [address] [id number], [place] [address]- 8397 11 Apr, 2014 [facility] [place] [facility] [address] [id number], [place] [address]- 4114 10 Apr, 2014 [facility] [place] [facility] [address] [id number], [place] [address]- 2605 10 Apr, 2014 [facility] [place] [facility] [address] [id number], [place] [address]- 5682 16 Mar, 2014 [facility] [place] [facility] [address] [id number] [place] [address]- 3096 16 Mar, 2014 [facility] [place] [facility] [address] [id number] [place] [address]- 8759 Mar, [facility] [place] [facility] [address] [id number] [place] [address]- 3797 16 Mar, 2014 [facility] [place] [facility] [address] [id number] [place] [address]- 0150 Jan, [facility] [place] [facility] [address] [id number] [place] [address]- 1145 Jan, [facility] [place] [facility] [address] [id number] [place] [address]- 1431 Jan, [facility] [place] [facility] [address] [id number] [place] [address]- 6220 Jan, [facility] [place] [facility] [address] [id number] [place] [address]- 8001 Jan, [facility] [place] [facility] [address] [id number] [place] [address]- 4017 Jan, [facility] [place] [facility] [address] [id number] [place] [address]- 1730 Dec, [facility] [place] [facility] [address] [id number] [place] [address]- 5668 Dec, [facility] [place] [facility] [address] [id number] [place] [address]- 6594 Dec, [facility] [place] [facility] [address] [id number] [place] [address]- 3992 Dec, [facility] [place] [facility] [address] [id number] [place] [address]- 4007 Nov, [facility] [place] [facility] [address] [id number] [place] [address]- 2326 Nov, [facility] [place] [facility] [address] [id number] [place] [address]- 1101 Nov, [facility] [place] [facility] [address] [id number] [place] [address]- 4653 Nov, [facility] [place] [facility] [address] [id number] [place] [address]- 5198 Oct, [facility] [place] [facility] [address] [id number] [place] [address]- 3147 Oct, [facility] [place] [facility] [address] [id number] [place] [address]- 5051 Oct, [facility] [place] [facility] [address] [id number] [place] [address]- 5517 Oct, [facility] [place] [facility] [address] [id number] [place] [address]- 3922 Oct, [facility] [place] [facility] [address] [id number] [place] [address]- 3719 Oct, [facility] [place] [facility] [address] [id number] [place] [address]- 1063 Oct, [facility] [place] [facility] [address] [id number] [place] [address]- 2952 Oct, [facility] [place] [facility] [address] [id number] [place] [address]- 2301 Oct, [facility] [place] [facility] [address] [id number] [place] [address]- 7337 Oct, [facility] [place] [facility] [address] [id number] [place] [address]- 5664 September, [facility] [place] [facility] [address] [id number] [place] [address] September, [facility] [place] [facility] [address] [id number] [place] [address] September, [facility] [place] [facility] [address] [id number] [place] [address] September, [facility] [place] [facility] [address] [id number] [place] [address] September, [facility] [address] [id number] [place] [address] September, [facility] [place] [facility] [address] [id number] [place] [address] September, [facility] [place] [facility] [address] [id number] [place] [address] September, [facility] [place] [facility] [address] [id number] [place] [address] September, [facility] [place] [facility] [address] [id number] [place] [address] Aug, [facility] [place] [facility] [address] [id number] [place] [address] Aug, [facility] [place] [facility] [address] [id number] [place] [address] Aug, [facility] [place] [facility] [address] [id number] [place] [address] Aug, [facility] [place] [facility] [address] [id number] [place] [address] Aug, [facility] [place] [facility] [address] [id number] [place] [address] Aug, [facility] [place] [facility] [address] [id number] [place] [address] Aug, [facility] [place] [facility] [address] [id number] [place] [address] Aug, [facility] [place] [facility] [address] [id number] [place] [address] Jul, [facility] [place] [facility] [address] [id number] [place] [address] Jul, [facility] [place] [facility] [address] [id number] [place] [address] Jul, [facility] [place] [facility] [address] [id number] [place] [address] 24 Jul, 2013 [facility] [place] [facility] [address] [id number] [place] [address] 24 Jul, 2013 [facility] [place] [facility] [address] [id number] [place] [address] 21 Jul, 2013 [facility] [place] [facility] [address] [id number] [place] [address] 21 Jul, 2013 [facility] [place] [facility] [address] [id number] [place] [address] 18 Jul, 2013 [facility] [place] [facility] [address] [id number] [place] [address]- [address] 18 Jul, 2013 [facility] [place] [facility] [address] [id number] [place] [address] 17 Jul, 2013 [facility] [place] [facility] [address] [id number] [place] [address] 17 Jul, 2013 [facility] [place] [facility] [address] [id number] [place] [address] 13 Jul, 2013 [facility] [place] [facility] [address] [id number] [place] [address] 13 Jul, 2013 [facility] [place] [facility] [address] [id number] [place] [address] 05 Jul, 2013 [facility] [place] [facility] [address] [id number] [place] [address] 05 Jul, 2013 [facility] [place] [facility] [address] [id number] [place] [address] 10 Jul, 2013 [facility] [place] [facility] [address] [id number] [place] [address] 10 Jul, 2013 [facility] [place] [facility] [address] [id number] [place] [address] 05 Jul, 2013 [facility] [place] [facility] [address] [id number] [place] [address] Jul, [facility] [place] [facility] [address] [id number] [place] [address] Jun, [facility] [place] [facility] [address] [id number] [place] [address] Jun, [facility] [place] [facility] [address] [id number] [place] [address] May, [facility] [place] [facility] [address] [id number], [place] [address] May, [facility] [place] [facility] [address] [id number] [place] [address] Apr, [facility] [place] [facility] [address] [id number], [place] [address] Apr, [facility] [place] [facility] [address] [id number], [place] [address] Apr, [facility] [place] [facility] [address] [id number] [address] Apr, [facility] [place] [facility] [address] [id number], [place] [address] Apr, [facility] [place] [facility] [address] [id number], [place] [address] Apr, [facility] [place] [facility] [address] [id number], [place] [address] Mar, [facility] [place] [facility] [address] [id number], [place] [address] Mar, [facility] [place] [facility] [address] [id number], [place] [address] 15 Mar, 2013 [facility] [place] [facility] [address] [id number], [place] [address] Mar, [facility] [place] [facility] [address] [id number], [place] [address] 19 Jan, 2013 [facility] [place] [facility] [address] [id number] [place] [address] Jan, [facility] [address] [id number] [place] [address] Jan, [facility] [place] [facility] [address] [id number] [place] [address] Dec, [facility] [address] [id number] [place] [address] Dec, [facility] [place] [facility] [address] [id number] [place] [address] Dec, [facility] [address] [id number] [place] [address] Dec, [facility] [address] [id number] [place] [address] Nov, [facility] [place] [facility] [address] [id number] [place] [address] Nov, [facility] [address] [id number] [place] [address] Nov, [facility] [place] [facility] [address] [id number] [place] [address] Oct, [facility] [address] [id number] [place] [address] Oct, [facility] [place] [facility] [address] [id number] [place] [address] Oct, [facility] [place] [facility] [address] [id number] [place] [address] Oct, [facility] [place] [facility] [address] [id number] [place] [address] Oct, [facility] [place] [facility] [address] [id number] [place] [address] Oct, [facility] [place] [facility] [address] [id number] [place] [address] September, [facility] [address] [id number] [place] [address] Jul, [facility] [place] [facility] [address] [id number] [place] [address] Jul, [facility] [place] [facility] [address] [id number] [place] [address] Jul, [facility] [place] [facility] [address] [id number] [place] [address] Jul, [facility] [address] [id number] [place] [address] Jul, [facility] [place] [facility] [address] [id number] [place] [address] Jul, [facility] [place] [facility] [address] [id number] [place] [address] Jun, [facility] [address] [id number] [place] [address] Apr, [facility] [place] [facility] [address] [id number] [place] [address] Apr, [facility] [place] [facility] [address] [id number] [place] [address] Jan, [facility] [place] [facility] [address] [id number] [place] [address] Dec, [facility] [place] [facility] [address] [id number] [place] [address] Nov, [facility] [place] [facility] [address] [id number] [place] [address] 239[address] Oct, [facility] [place] [facility] [address] [id number] [place] [address] September, [facility] [place] [facility] [address] [id number] [place] [address] September, [facility] [place] [facility] [address] [id number] [place] [address]- [address] Jul, [facility] [address] [id number] [place] [address] 2546 Jul, [facility] [place] [facility] [address] [id number] [place] [address] 2546 28 Jul, 2011 [facility] [place] [facility] [address] [id number] [place] [address]- [address] Jul, [facility] [place] [facility] [address] [id number] [place] [address] 2546 22 Jul, 2011 [facility] [place] [facility] [address] [id number] [place] [address]- [address] 17 Jul, 2011 [facility] [place] [facility] [address] [id number] [place] [address] 2546 13 Jul, 2011 [facility] [place] [facility] [address] [facility] [id number] [place] [address]- [address] 11 Jul, 2011 [facility] [place] [facility] [address] [id number] [place] [address]- [address]6 08 Jul, 2011 [facility] [place] [facility] [address] [facility] [id number] [place] [address]- [address] 07 Jul, 2011 [facility] [address] [facility] [id number] [place] [address] Jun, [facility] [place] [facility] [address] [facility] [id number] [place] [address] 25[address] May, [facility] [place] [facility] [address] [id number] [place] [address] 2546 May, [facility] [place] [facility] [address] [id number] [place] [address] 2546 May, [facility] [place] [facility] [address] [facility] [id number] [place] [address] 2546 Apr, [facility] [place] [facility] [address] [facility] [id number] [place] [address] Apr, [facility] [address] [id number] [address] Mar, [facility] [id number], [place] [address] Mar, [facility] [id number] [address] Mar, [facility] [id number], [place] [address] Mar, [facility] [id number] [address] Mar, [facility] [id number], [place] [address] September, [facility] [id number], [place] [address] Mar, [facility] [id number], [place] [address] Dec, [facility] [id number], [place] [address] May, [facility] [id number] [address] May, IMMUNIZATIONS Vaccine Route Administration Date Status DEXAMETHASONE 4MG/ML (PER 1 MG) IM Intramuscular Jan 24, 2018 Administered DEPO MEDROL 80 MG/ML IM Intramuscular Jan 24, 2018 Administered SOCIAL HISTORY Never Assessed REASON FOR VISIT Rash PLAN OF CARE Activity Details Follow Up if not improving with PCP or reg follow up Reason: VITAL SIGNS Height 63 in 2018-01-24 Weight 160.2 lbs 2018-01-24 Temperature 99.1 degrees Fahrenheit 2018-01-24 Heart Rate 92 bpm 2018-01-24 Respiratory Rate 20 2018-01-24 BMI 28.38 kg/m2 2018-01-24 Blood pressure systolic 122 mmHg 2018-01-24 Blood pressure diastolic 80 mmHg 2018-01-24 MEDICATIONS Medication Instructions Dosage Frequency Start Date End Date Duration Status Venlafaxine HCl ER 225 MG Orally Once a day 1 capsule with food 24h 30 Active Hydrocodone-Acetaminophen 10-325 MG Orally Once a day 1 tablet 24h 22 Dec, 2017 Jan, 28 days Active Clobetasol Propionate 0.05 % Externally Twice a day 1 application to affected area 12h Dec, 5 Jan, 2018 10 day(s) Active Cheratussin AC 100-10 MG/5ML Orally every 4 hrs 5 ml 4h Jul, Active Oxygen Active Levothyroxine Sodium 125 mcg Orally Once a day 1 tablet 24h 90 days Active Lipitor 40 mg Orally Once a day 1 tablet 24h 31 Nov, 2014 90 days Active HydrOXYzine HCl 25 MG Orally Three times a day as needed for anxiety and sleep 1 tablet Jul, 30 days Active Albuterol Sulfate (2.5 MG/3ML) 0.083% Inhalation Three times a day 3 ml as needed 8h Jul, Active RESULTS No Results PROCEDURES Procedure Date Ordered Result Body Site DEXAMETHASONE 4MG/ML (PER 1 MG) Jan 24, 2018 DEPO MEDROL 80 MG/ML Jan 24, 2018 THER/PROPH/DIAG INJ, SC/IM Jan 24, 2018 INSTRUCTIONS MEDICATIONS ADMINISTERED No Known Medications [...]
--- OUTSIDE RECORDS SUMMARY | 2018-03-04 18:16 | XMS REPORT ---
Author Author CEDRICK BARCENAS 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 Active 845055432 Problem Cervical spondylosis with radiculopathy M47.22 Active 665780650 Problem Chronic tension-type headache, intractable G44.221 Active 855427165 Problem Anxiety F41.9 Active 34031101 Problem Mixed hyperlipidemia E78.2 Active 498463652 Problem Generalized anxiety disorder F41.1 Active 91897118 Problem Major depressive disorder, recurrent episode, moderate F33.1 Active 041363500 ALLERGIES No Information ENCOUNTERS Encounter Location Date Diagnosis [facility] [id number] [place] [address] 89326 -3743 Dec, Allergic dermatitis due to other chemical product L23.5 [facility] [id number] [place] [address] 19462- 6059 Dec, Cervical spondylosis with radiculopathy M47.22 and Depression, unspecified depression type F32.9 [facility] [id number] [place] [address] 69796- 4605 Oct, [facility] [address] 38852- 3018 Oct, [facility] [id number] [place] [address] 54753- 3692 Oct, [facility] [id number] [place] [address] 03507- 0219 September, Chronic pain syndrome G89.4 [facility] [id number] [place] [address] 14088- 2815 September, Depression, unspecified depression type F32.9 and Cervicalgia M54.2 [facility] [address] 79489- 2844 September, Chronic pain syndrome G89.4 [facility] [id number] [place] [address] 25944- 3870 Aug, Red stool R19.5 [facility] [facility] [address] 03972- 8999 Aug, Depression, unspecified depression type F32.9 ; Chronic pain syndrome G89.4 ; Chronic tension-type headache, intractable G44.221 ; Red stool R19.5 ; Hypothyroidism, unspecified E03.9 and Mixed hyperlipidemia E78.2 [facility] [facility] [id number] [place] [address] 43446- 9340 Jul, Major depressive disorder, recurrent episode, moderate F33.1 [facility] [id number] [place] [address] 87018- 5811 Jul, [facility] [id number] [place] [address] 53180- 2134 Jul, Hypothyroidism, unspecified E03.9 [facility] [id number] [place] [address] 91277- 7785 Jul, Hypothyroidism, unspecified E03.9 [facility] [id number] [place] [address] 12094- 8504 Jul, Mixed hyperlipidemia E78.2 [facility] [id number] [place] [address] 24317- 9106 Jul, Mixed hyperlipidemia E78.2 [facility] [id number] [place] [address] 22332 -4804 Jul, Bronchitis J40 ; Cough R05 and Wheezing R06.2 [facility] [id number] [place] [address] 97386- 7441 Jul, Major depressive disorder, recurrent episode, moderate F33.1 and Generalized anxiety disorder F41.1 [facility] [id number] [place] [address] 99814- 5553 Jul, [facility] [address] 17824- 0304 Jul, Major depressive disorder, recurrent episode, moderate F33.1 and Generalized anxiety disorder F41.1 [place] [id number] [place] [address] 86079- 2196 Jul, Generalized anxiety disorder F41.1 and Major depressive disorder, recurrent episode, moderate F33.1 [facility] [id number] [place] [address] 18231- 8785 Jul, Mixed hyperlipidemia E78.2 [facility] [id number] [place] [address] 45900- 0417 Jun, Depression, unspecified depression type F32.9 ; Cervicalgia M54.2 ; Trigger point M79.1 ; Hypothyroidism, unspecified E03.9 ; Screening, lipid Z13.220 and Mixed hyperlipidemia E78.2 [id number] [place] [address] 11525- 5343 Jun, [facility] [id number] [place] [address] 84337- 2139 May, [place] [id number] [place] [address] 09058- 5378 Apr, Acute bronchitis due to other specified organisms J20.8 and Tobacco abuse counseling Z71.6 [facility] [id number] [place] [address] 08129- 4040 Mar, Depression, unspecified depression type F32.9 [facility] [id number] [place] [address] 96363- 6657 Jan, Chronic pain syndrome G89.4 [facility] [id number] [place] [address] 02683- 1999 Nov, Anxiety F41.9 ; Depression, unspecified depression type F32.9 and Chronic pain syndrome G89.4 [facility] [id number] [place] [address] 78965- 4634 Oct, Anxiety F41.9 and Hypothyroidism, unspecified E03.9 [facility] [id number] [place] [address] 22503 -0926 Oct, Left foot pain M79.672 and Contusion of left foot, 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 S90.32XA [facility] [id number] [place] [address] 00526- 2167 Oct, [facility] [id number] [place] [address] 05737- 2128 September, Cervicalgia M54.2 [facility] [id number] [place] [address] 34133- 2461 September, [facility] [id number] [place] [address] 87579- 1291 Aug, Cervicalgia M54.2 [facility] [id number] [place] [address] 15001- 4498 Aug, Cervicalgia M54.2 and Left arm numbness R20.0 [facility] [id number] [place] [address] 56515- 6612 Aug, [facility] [id number] [place] [address] 64940- 2294 Aug, [facility] [id number] [place] [address] 79590- 6565 Jul, [facility] [id number] [place] [address] 45634- 7611 Jul, [facility] [id number] [place] [address] 16747- 1801 Jul, [facility] [address] 81235- 9695 Jul, Acute midline low back pain without sciatica M54.5 [facility] [id number] [place] [address] 34749- 1555 Jun, Acute midline low back pain without sciatica M54.5 [facility] [id number] [place] [address] 73615- 7321 Jun, Chronic pain syndrome G89.4 and Muscle spasm M62.838 [facility] [id number] [place] [address] 17397- 4718 Jun, [facility] [address] 95253- 5111 Jun, Acute midline low back pain without sciatica M54.5 [facility] [id number] [place] [address] 66907- 2716 Jun, [facility] [address] 23779- 6653 May, [facility] [id number] [place] [address] 27693- 4396 May, Hypothyroidism, unspecified E03.9 ; Chronic pain syndrome G89.4 ; Hyperglycemia R73.9 ; Encounter for immunization Z23 and Mixed hyperlipidemia E78.2 [facility] [id number] [place] [address] 07204- 5851 Apr, Fatigue 780.79 [facility] [address] 38796- 5491 Apr, Chronic pain syndrome G89.4 [facility] [id number] [place] [address] 15974- 2894 Mar, [facility] [address] [place] [address]- 6473 Mar, Chronic pain syndrome G89.4 [facility] [id number] [place] [address] 55179- 0224 Jan, [facility] [id number] [place] [address] 38886- 6729 Dec, [facility] [id number] [place] [address] 53729- 4525 Dec, Chronic pain syndrome G89.4 [facility] [id number] [place] [address] 54783- 4070 Dec, Trigger point M79.2 [facility] [id number] [place] [address] 55202- 5511 Nov, Chronic pain syndrome G89.4 [facility] [id number] [place] [address] 63056- 0985 Oct, Chronic pain syndrome G89.4 [facility] [id number] [place] [address] 94432- 2731 Oct, Irritant contact dermatitis due to detergent L24.0 [facility] [id number] [place] [address] 96348- 2772 September, Hypothyroidism, unspecified E03.9 and Depression, unspecified depression type F32.9 [facility] [id number] [place] [address] 04614- 1316 September, Chronic pain syndrome G89.4 [facility] [address] [place] [address] 28811- 9664 Aug, [facility] [id number] [place] [address] 03974- 4632 Aug, Trigger point M79.2 [facility] [address] [place] [address] 31734- 0514 Jul, Chronic pain syndrome G89.4 and halfway 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.891 [place] [address] [address]- 1281 Jul, 2016 Chronic pain syndrome G89.4 and 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 [facility] [address]- 4014 Jul, [facility] [address] [address]- 7732 Jul, [facility] [address] [place] [address] 318221- 3299 Jun, [facility] [address] [place] [address] 38441- 6431 May, [facility] [address] [place] [address] 01906- 5307 May, [facility] [address] [place] [address] 95041- 5815 May, [facility] [address] [address]- 3418 May, Pneumonia, organism unspecified, unspecified laterality, unspecified part of lung J18.9 [facility] [address] [address]- 8524 May, Pneumonia, organism unspecified, unspecified laterality, unspecified part of lung J18.9 [facility] [address] [address]- 0571 Apr, [facility] [address] [address]- 9021 Apr, [facility] [id number] [address]- 3998 Apr, [facility] [address] [address]- 1426 Apr, [facility] [address] [address]- 1525 Apr, [facility] [address] [address]- 5750 Apr, Epigastric pain R10.13 [facility] [id number] [place] [address] 307396- 8547 Mar, Tinea pedis B35.3 and Contact dermatitis and eczema due to detergents L24.0 [facility] [id number] [place] [address] 41688- 8626 Mar, [facility] [id number] [place] [address] 419029- 4815 Jan, [facility] [id number] [place] [address] 35924- 0165 Jan, [facility] [id number] [place] [address] 990721- 8327 Jan, [facility] [id number] [place] [address] 54680- 3675 Dec, [facility] [id number] [place] [address] 04058- 4148 Nov, [facility] [id number] [place] [address] 74713- 1965 Nov, Fatigue 780.79 [place] [id number] [place] [address] 37590- 5902 Nov, [facility] [id number] [place] [address] 381197- 2997 Nov, Unspecified myalgia and myositis 729.1 [facility] [id number] [place] [address] 45714- 4495 Nov, Hypercalcemia 275.42 [facility] [id number] [place] [address] 826129- 4056 Nov, Fatigue 780.79 ; Bradycardia 427.89 ; Chronic pain 338.29 and Family history of diabetes mellitus V18.0 [place] [address] [address]- 0237 Nov, Fatigue 780.79 ; Chronic pain 338.29 ; Family history of diabetes mellitus V18.0 ; Bradycardia 427.89 ; Hypothyroid 244.9 and Anxiety 300.00 [facility] [address] [address]- 1399 Oct, [facility] [id number] [place] [address] 68403- 1545 September, [facility] [id number] [place] [address] 84046- 9401 Aug, [facility] [id number] [place] [address] 24101- 0447 Aug, [facility] [id number] [place] [address] 91765- 7352 Aug, [facility] [id number] [place] [address] 30297- 5802 Jul, [facility] [address] [address]- 9598 Jul, [facility] [id number] [place] [address] 10799- 2752 Jul, [facility] [address] [address]- 3879 Jul, [facility] [address] [address]- 7779 Jun, [facility] [address] [address]- 5696 Jun, [facility] [id number] [place] [address] 677631- 3086 Jun, [facility] [address] [address]- 4050 Jun, [facility] [id number] [place] [address] 11859- 2831 Jun, [facility] [place] [facility] [address] [id number] [place] [address]- 4638 Jun, [facility] [place] [facility] [address] [id number] [place] [address]- 0737 May, [facility] [place] [facility] [address] [id number] [place] [address]- 1053 May, [facility] [place] [facility] [address] [id number] [place] [address]- 3525 May, [facility] [place] [facility] [address] [id number] [place] [address]- 5244 May, [facility] [place] [facility] [address] [id number] [place] [address]- 2340 May, [facility] [place] [facility] [address] [id number] [place] [address]- 6297 May, [facility] [place] [facility] [address] [id number] [place] [address]- 4841 May, [facility] [place] [facility] [address] [id number] [place] [address]- 3078 May, [facility] [place] [facility] [address] [id number] [place] [address]- 6023 May, [facility] [place] [facility] [address] [id number] [place] [address]- 0048 May, [facility] [place] [facility] [address] [id number] [place] [address]- 2123 Apr, [facility] [place] [facility] [address] [id number] [place] [address]- 7881 Apr, [facility] [place] [facility] [address] [id number] [place] [address]- 3866 Apr, [facility] [place] [facility] [address] [id number] [place] [address]- 7038 Apr, [facility] [place] [facility] [address] [id number] [place] [address]- 0153 19 Apr, 2014 [facility] [place] [facility] [address] [id number] [place] [address]- 0692 19 Apr, 2014 [facility] [place] [facility] [address] [id number] [place] [address]- 5735 18 Apr, 2014 [facility] [place] [facility] [address] [id number] [place] [address]- 4356 18 Apr, 2014 [facility] [place] [facility] [address] [id number] [place] [address]- 7357 17 Apr, 2014 [facility] [place] [facility] [address] [id number] [place] [address]- 7644 17 Apr, 2014 [facility] [place] [facility] [address] [id number] [place] [address]- 3217 Apr, [facility] [place] [facility] [address] [id number] [place] [address]- 9983 Apr, [facility] [place] [facility] [address] [id number] [place] [address]- 9468 11 Apr, 2014 [facility] [place] [facility] [address] [id number] [place] [address]- 6630 10 Apr, 2014 [facility] [place] [facility] [address] [id number] [place] [address]- 2575 10 Apr, 2014 [facility] [place] [facility] [address] [id number] [place] [address]- 2159 16 Mar, 2014 [facility] [place] [facility] [address] [id number] [place] [address]- 4905 16 Mar, 2014 [facility] [place] [facility] [address] [id number] [place] [address]- 3718 16 Mar, 2014 [facility] [place] [facility] [address] [id number] [place] [address]- 5319 16 Mar, 2014 [facility] [place] [facility] [address] [id number] [place] [address]- 5710 Jan, [facility] [place] [facility] [address] [id number] [place] [address]- 3509 Jan, [facility] [place] [facility] [address] [id number] [place] [address]- 2104 Jan, [facility] [place] [facility] [address] [id number] [place] [address]- 0119 Jan, [facility] [place] [facility] [address] [id number] [place] [address]- 7941 Jan, [facility] [place] [facility] [address] [id number] [place] [address]- 9533 Jan, [facility] [place] [facility] [address] [id number] [place] [address]- 4861 Dec, [facility] [place] [facility] [address] [id number] [place] [address]- 2524 Dec, [facility] [place] [facility] [address] [id number] [place] [address]- 5041 Dec, [facility] [place] [facility] [address] [id number] [place] [address]- 6128 Dec, [facility] [place] [facility] [address] [id number] [place] [address]- 2401 Nov, [facility] [place] [facility] [address] [id number] [place] [address]- 1557 Nov, [facility] [place] [facility] [address] [id number] [address]- 0449 Nov, [facility] [place] [facility] [address] [id number] [place] [address]- 0355 Nov, [facility] [place] [facility] [address] [id number] [place] [address]- 0531 Oct, [facility] [place] [facility] [address] [id number] [place] [address]- 6822 Oct, [facility] [place] [facility] [address] [id number] [place] [address]- 9491 Oct, [facility] [place] [facility] [address] [id number] [place] [address]- 7310 Oct, [facility] [place] [facility] [address] [id number] [place] [address]- 4252 Oct, [facility] [place] [facility] [address] [id number] [place] [address]- 3903 Oct, [facility] [place] [facility] [address] [id number] [place] [address]- 1659 Oct, [facility] [place] [facility] [address] [id number] [place] [address]- 7347 Oct, [facility] [place] [facility] [address] [id number] [place] [address]- 7137 Oct, [facility] [place] [facility] [address] [id number] [place] [address]- 3441 Oct, [facility] [place] [facility] [address] [id number] [place] [address]- 1708 September, [facility] [place] [facility] [address] [id number] [place] [address]- 7395 September, [facility] [place] [facility] [address] [id number] [place] [address]- 4620 September, [facility] [place] [facility] [address] [id number] [place] [address]- 9364 September, [facility] [place] [facility] [address] [id number] [place] [address]- 2151 September, [facility] [place] [facility] [address] [id number] [place] [address]- 9213 September, [facility] [place] [facility] [address] [id number] [place] [address]- 3775 September, [facility] [place] [facility] [address] [id number] [place] [address]- 9769 September, [facility] [place] [facility] [address] [id number] [place] [address]- 9080 September, [facility] [place] [facility] [address] [id number] [place] [address]- 0367 Aug, [facility] [place] [facility] [address] [id number] [place] [address]- 0273 Aug, [facility] [place] [facility] [address] [id number] [place] [address]- 8580 Aug, [facility] [place] [facility] [address] [id number] [place] [address]- 9521 Aug, [facility] [place] [facility] [address] [id number] [place] [address]- 9669 Aug, [facility] [place] [facility] [address] [id number] [place] [address]- 8688 Aug, [facility] [place] [facility] [address] [id number] [place] [address]- 7278 Aug, [facility] [place] [facility] [address] [id number] [place] [address]- 7906 Aug, [facility] [place] [facility] [address] [id number] [place] [address]- 7159 Jul, [facility] [place] [facility] [address] [id number] [place] [address] Jul, [facility] [place] [facility] [address] [id number] [place] [address] Jul, [facility] [place] [facility] [address] [id number] [place] [address] Jul, [facility] [place] [facility] [address] [id number] [place] [address] Jul, [facility] [place] [facility] [address] [id number] [place] [address] Jul, [facility] [place] [facility] [address] [id number] [place] [address] Jul, [facility] [place] [facility] [address] [id number] [place] [address] 18 Jul, 2013 [facility] [place] [facility] [address] [id number] [place] [address]- [address] 18 Jul, 2013 [facility] [place] [facility] [address] [id number] [place] [address]- [address] 17 Jul, 2013 [facility] [place] [facility] [address] [id number] [place] [address]- [address] 17 Jul, 2013 [facility] [place] [facility] [address] [id number] [place] [address]- [address] Jul, [facility] [place] [facility] [address] [id number] [place] [address] Jul, [facility] [place] [facility] [address] [id number] [place] [address] Jul, [facility] [place] [facility] [address] [id number] [place] [address]- [address] Jul, [facility] [place] [facility] [address] [id number] [place] [address] Jul, [facility] [place] [facility] [address] [id number] [place] [address]- [address] Jul, [facility] [place] [facility] [address] [id number] [place] [address]- [address] Jul, [facility] [place] [facility] [address] [id number] [place] [address]- [address] Jul, [facility] [place] [facility] [address] [id number] [place] [address]- [address] Jun, [facility] [place] [facility] [address] [id number] [place] [address]- [address] Jun, [facility] [place] [facility] [address] [id number] [place] [address]- [address] May, [facility] [place] [facility] [address] [id number] [place] [address]- [address] May, [facility] [place] [facility] [address] [id number] [place] [address]- [address] Apr, [facility] [place] [facility] [address] [id number] [place] [address]- [address] Apr, [facility] [place] [facility] [address] [id number] [place] [address] Apr, [facility] [place] [facility] [address] [id number] [place] [address]- [address] Apr, [facility] [place] [facility] [address] [id number] [place] [address]- [address] Apr, [facility] [place] [facility] [address] [id number] [place] [address]- [address] Apr, [facility] [place] [facility] [address] [id number] [place] [address] Mar, [facility] [place] [facility] [address] [id number] [place] [address] Mar, [facility] [place] [facility] [address] [id number] [place] [address]- [address] Mar, [facility] [place] [facility] [address] [id number] [place] [address] Mar, [facility] [place] [facility] [address] [id number] [place] [address]- [address] 19 Jan, 2013 [facility] [place] [facility] [address] [id number] [place] [address] 11 Jan, 2013 [facility] [place] [facility] [address] [id number] [place] [address]- [address] Jan, [facility] [place] [facility] [address] [id number] [place] [address] Dec, [facility] [place] [facility] [address] [id number] [place] [address] Dec, [facility] [address] [id number] [place] [address] Dec, [facility] [place] [facility] [address] [id number] [place] [address] Dec, [facility] [place] [facility] [address] [id number] [place] [address] Nov, [facility] [place] [facility] [address] [id number] [place] [address] Nov, [facility] [place] [facility] [address] [id number] [place] [address] Nov, [facility] [place] [facility] [address] [id number] [place] [address] Oct, [facility] [place] [facility] [address] [id number] [place] [address] Oct, [facility] [place] [facility] [address] [id number] [place] [address] Oct, [facility] [place] [facility] [address] [id number] [place] [address] Oct, [facility] [place] [facility] [address] [id number] [place] [address] Oct, [facility] [place] [facility] [address] [id number] [place] [address] Oct, [facility] [place] [facility] [address] [id number] [place] [address] September, [facility] [place] [facility] [address] [id number] [place] [address] Jul, [facility] [place] [facility] [address] [id number] [place] [address] Jul, [facility] [place] [facility] [address] [id number] [place] [address] Jul, [facility] [place] [facility] [address] [id number] [place] [address] Jul, [facility] [address] [id number] [place] [address] Jul, [facility] [place] [facility] [address] [id number] [place] [address]- [address] Jul, [facility] [place] [facility] [address] [id number] [place] [address] Jun, [facility] [place] [facility] [address] [id number] [place] [address] Apr, [facility] [place] [facility] [address] [id number] [place] [address] Apr, [facility] [place] [facility] [address] [id number] [place] [address] Jan, [facility] [address] [id number] [place] [address] Dec, [facility] [place] [facility] [address] [id number] [place] [address] Nov, [facility] [place] [facility] [address] [id number] [place] [address]- [address] Oct, [facility] [place] [facility] [address] [id number] [place] [address]- [address] September, [facility] [place] [facility] [address] [id number] [place] [address] September, [facility] [place] [facility] [address] [id number] [place] [address]- [address] Jul, [facility] [place] [facility] [address] [id number] [place] [address] Jul, [facility] [place] [facility] [address] [id number] [place] [address] Jul, [facility] [place] [facility] [address] [id number] [place] [address]698 Jul, [facility] [place] [facility] [address] [id number] [place] [address] Jul, [facility] [place] [facility] [address] [id number] [place] [address] Jul, [facility] [place] [facility] [address] [id number] [place] [address] Jul, [facility] [place] [facility] [address] [id number] [place] [address]- [address] Jul, [facility] [place] [facility] [address] [id number] [place] [address] Jul, [facility] [place] [facility] [address] [id number] [place] [address] Jul, [facility] [place] [facility] [address] [id number] [place] [address]- [address] Jun, [facility] [place] [facility] [address] [id number] [place] [address] May, [facility] [place] [facility] [address] [id number] [place] [address] May, [facility] [place] [facility] [address] [facility] [id number] [place] [address] May, [facility] [place] [facility] [address] [id number], [place] [address] Apr, [facility] [place] [facility] [address] [id number], [place] [address] Apr, [facility] [place] [facility] [address] [id number] [place] [address] 20 Mar, 2011 [facility] [place] [facility] [address] [id number], [place] [address] Mar, [facility] [place] [facility] [address] [id number] [place] [address] Mar, [facility] [place] [facility] [address] [id number] [address] 13 Mar, 2011 [facility] [id number] [place] [address] 10 Mar, 2011 [facility] [address] [id number] [address] September, [facility] [id number], [place] [address] Mar, [facility] [id number], [place] [address] Dec, [facility] [id number], [place] [address] May, [facility] [id number], [place] [address] May, IMMUNIZATIONS No Known Immunizations SOCIAL HISTORY Never Assessed REASON FOR VISIT neck pain PLAN OF CARE VITAL SIGNS MEDICATIONS No [...]
--- OUTSIDE RECORDS SUMMARY | 2018-03-04 18:17 | XMS REPORT ---
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 Active 741514438 Problem Cervical spondylosis with radiculopathy M47.22 Active 786269000 Problem Chronic tension-type headache, intractable G44.221 Active 141718168 Problem Anxiety F41.9 Active 08960343 Problem Mixed hyperlipidemia E78.2 Active 026407847 Problem Generalized anxiety disorder F41.1 Active 35403619 Problem Major depressive disorder, recurrent episode, moderate F33.1 Active 248553992 ALLERGIES No Information ENCOUNTERS Encounter Location Date Diagnosis [place] [id number] [place] [address] 49689- 1344 Dec, Cervical spondylosis with radiculopathy M47.22 and Depression, unspecified depression type F32.9 [facility] [address] [address] 3532 Oct, [facility] [address] [address] 0920 Oct, [facility] [address] [place] [id number] [place] [address] 63825- 6638 Oct, [facility] [address] [address] 6582 September, Chronic pain syndrome G89.4 [facility] [address] [place] [id number] [place] [address] 74907- 9619 September, Depression, unspecified depression type F32.9 and Cervicalgia M54.2 [place] [address] 14636- 9939 September, Chronic pain syndrome G89.4 [place] [address] 17962- 7006 Aug, Red stool R19.5 [place] [address] 78259- 6933 Aug, Depression, unspecified depression type F32.9 ; Chronic pain syndrome G89.4 ; Chronic tension-type headache, intractable G44.221 ; Red stool R19.5 ; Hypothyroidism, unspecified E03.9 and Mixed hyperlipidemia E78.2 [place] [address] 63012- 0002 Jul, Major depressive disorder, recurrent episode, moderate F33.1 [place] [address] 17690- 0232 Jul, [place] [address] 82137- 3491 Jul, Hypothyroidism, unspecified E03.9 [place] [address] 61968- 7551 Jul, Hypothyroidism, unspecified E03.9 [place] [address] [place] [id number] [place] [address] 79010- 1640 Jul, Mixed hyperlipidemia E78.2 [place] [address] 44520- 4661 Jul, Mixed hyperlipidemia E78.2 [facility] [id number] [place] [address] 59866 -7591 Jul, Bronchitis J40 ; Cough R05 and Wheezing R06.2 [place] [address] 26030- 8972 Jul, Major depressive disorder, recurrent episode, moderate F33.1 and Generalized anxiety disorder F41.1 [place] [address] [place] [id number] [place] [address] 07152- 0003 Jul, [place] [address] 80877- 0757 Jul, Major depressive disorder, recurrent episode, moderate F33.1 and Generalized anxiety disorder F41.1 [place] [address] 68450- 5492 Jul, Generalized anxiety disorder F41.1 and Major depressive disorder, recurrent episode, moderate F33.1 [place] [address] [place] [id number] [place] [address] 70224- 6473 Jul, Mixed hyperlipidemia E78.2 [place] [address] 97151- 8383 Jun, Depression, unspecified depression type F32.9 ; Cervicalgia M54.2 ; Trigger point M79.1 ; Hypothyroidism, unspecified E03.9 ; Screening, lipid Z13.220 and Mixed hyperlipidemia E78.2 [place] [address] [place] [id number] [place] [address] 95507- 4788 Jun, [place] [address] 52434- 0637 May, [place] [address] 16505- 3602 Apr, Acute bronchitis due to other specified organisms J20.8 and Tobacco abuse counseling Z71.6 [place] [address] 98656- 4504 Mar, Depression, unspecified depression type F32.9 [place] [address] [place] [id number] [place] [address] 75933- 7731 Jan, Chronic pain syndrome G89.4 [place] [address] [place] [address]- 5864 Nov, Anxiety F41.9 ; Depression, unspecified depression type F32.9 and Chronic pain syndrome G89.4 [facility] [address] [place] [address] [id number] [place] [address] 39553- 1863 Oct, Anxiety F41.9 and Hypothyroidism, unspecified E03.9 [facility] [address] 76712 -8377 Oct, Left foot pain M79.672 and Contusion of left foot, 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 S90.32XA [facility] [address] 73313- 9178 Oct, [facility] [address] 27157- 0957 September, Cervicalgia M54.2 [facility] [address] 16854- 4479 September, [facility] [address] 50226- 0861 Aug, Cervicalgia M54.2 [facility] [address] 17190- 2423 Aug, Cervicalgia M54.2 and Left arm numbness R20.0 [facility] [address] [place] [id number] [place] [address] 37138- 1252 Aug, [facility] [address] 79489- 7024 Aug, [facility] [id number] [place] [address] 96581- 5584 Jul, [facility] [address] [place] [id number] [place] [address] 12137- 6731 Jul, [facility] [address] [place] [id number] [place] [address] 16353- 5599 Jul, [facility] [address] [id number] [place] [address] 66404- 3244 Jul, Acute midline low back pain without sciatica M54.5 [facility] [address] 17602- 9339 Jun, Acute midline low back pain without sciatica M54.5 [facility] [address] 48171- 7834 Jun, Chronic pain syndrome G89.4 and Muscle spasm M62.838 [place] [address] 90482- 1155 Jun, [place] [address] 81488- 3695 Jun, Acute midline low back pain without sciatica M54.5 [place] [address] 06760- 0809 Jun, [place] [address] 47663- 0934 May, [place] [address] 77900- 3282 May, Hypothyroidism, unspecified E03.9 ; Chronic pain syndrome G89.4 ; Hyperglycemia R73.9 ; Encounter for immunization Z23 and Mixed hyperlipidemia E78.2 [place] [address] [place] [id number] [place] [address] 27861- 0087 Apr, Fatigue 780.79 [facility] [address] [place] [id number] [place] [address] 62475- 6349 Apr, Chronic pain syndrome G89.4 [facility] [address] 02332- 7061 Mar, [facility] [address] 38793- 2878 Mar, Chronic pain syndrome G89.4 [facility] [address] 37084- 6452 Jan, [facility] [address] [address]- 2290 Dec, [facility] [id number] [place] [address] 70957- 1388 Dec, Chronic pain syndrome G89.4 [facility] [id number] [place] [address] 85390- 2022 Dec, Trigger point M79.2 [facility] [address] [place] [id number] [place] [address] 57868- 0168 Nov, Chronic pain syndrome G89.4 [facility] [address] [place] [id number] [place] [address] 68689- 6620 Oct, Chronic pain syndrome G89.4 [facility] [address] [place] [address] 33338- 1709 Oct, Irritant contact dermatitis due to detergent L24.0 [facility] [address] [place] [address] 98095- 9300 September, Hypothyroidism, unspecified E03.9 and Depression, unspecified depression type F32.9 [facility] [address] [place] [address] 50219- 2481 September, Chronic pain syndrome G89.4 [facility] [id number] [place] [address] 79558- 7746 Aug, [facility] [address] [place] [id number] [place] [address] 00573- 7491 Aug, Trigger point M79.2 [facility] [id number] [place] [address] 00377- 1625 Jul, Chronic pain syndrome G89.4 and 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 [facility] [address] [place] [address] 45165- 6649 Jul, Chronic pain syndrome G89.4 and FCI 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.891 [facility] [address] [id number] [address]- 5381 Jul, [facility] [address], [place] [address]- 3036 Jul, [facility] [address] [address]- 4652 Jun, [facility] [address] [address]- 5639 May, [facility] [address] [address]- 2583 May, [facility] [id number] [place] [address] 69675- 2464 May, [facility] [address] [address]- 5824 May, Pneumonia, organism unspecified, unspecified laterality, unspecified part of lung J18.9 [facility] [address] [address]- 0012 May, Pneumonia, organism unspecified, unspecified laterality, unspecified part of lung J18.9 [facility] [address] [address]- 2768 Apr, [facility] [address] [id number] [address]- 7538 Apr, [facility] [id number] [address]- 0653 Apr, [facility] [address] [address]- 1568 Apr, [facility] [address] [address]- 1366 Apr, [facility] [id number] [address]- 2022 Apr, Epigastric pain R10.13 [facility] [address] [address]- 0511 Mar, Tinea pedis B35.3 and Contact dermatitis and eczema due to detergents L24.0 [facility] [address] [address]- 5380 Mar, [facility] [address] [place] [id number] [place] [address] 78749- 8588 Jan, [facility] [address] [place] [id number] [place] [address] 82178- 9493 Jan, [facility] [address] [id number] [place] [address] 86167- 0941 Jan, [facility] [address] [id number] [place] [address] 97170- 9992 Dec, [facility] [address] [place] [id number] [place] [address] 41493- 2692 Nov, [facility] [address] [place] [id number] [place] [address] 58495- 7668 Nov, Fatigue 780.79 [place] [address] [place] [id number] [place] [address] 27605- 0670 Nov, [facility] [address] [place] [id number] [place] [address] 15421- 0543 Nov, Unspecified myalgia and myositis 729.1 [place] [address] [place] [id number] [place] [address] 58524- 0251 Nov, Hypercalcemia 275.42 [facility] [address] [place] [id number] [place] [address] 80212- 1878 Nov, Fatigue 780.79 ; Bradycardia 427.89 ; Chronic pain 338.29 and Family history of diabetes mellitus V18.0 [facility] [address] [address]- 1392 Nov, Fatigue 780.79 ; Chronic pain 338.29 ; Family history of diabetes mellitus V18.0 ; Bradycardia 427.89 ; Hypothyroid 244.9 and Anxiety 300.00 [facility] [address] [address]- 3247 Oct, [facility] [id number] [address]- 3090 September, [facility] [address] [id number] [place] [address] 23651- 6616 Aug, [facility] [address] [id number] [place] [address] 57516- 0692 Aug, [facility] [address] [id number] [place] [address] 15802- 0476 Aug, [facility] [id number] [place] [address] 32544- 0745 Jul, [facility] [address] [id number] [place] [address] 35481- 9784 Jul, [facility] [address] [address]- 2828 Jul, [facility] [address] [id number] [place] [address] 00048- 8581 Jul, [facility] [address] [address]- 3972 Jun, [facility] [address] [address]- 4112 Jun, [facility] [address] [address]- 8969 Jun, [facility] [address], [place] [address]- 8160 Jun, [facility] [address], [place] [address]- 7832 Jun, [facility] [address], [place] [address]- 0111 Jun, [facility] [place] [facility] [address] [id number] [place] [address]- 9584 May, [facility] [place] [facility] [address] [id number] [place] [address]- 4369 May, [facility] [place] [facility] [address] [id number] [place] [address]- 9458 May, [facility] [place] [facility] [address] [id number] [place] [address]- 4323 May, [facility] [place] [facility] [address] [id number] [place] [address]- 8623 May, [facility] [place] [facility] [address] [id number] [place] [address]- 9541 May, [facility] [place] [facility] [address] [id number] [place] [address]- 6253 May, [facility] [place] [facility] [address] [id number] [place] [address]- 5417 May, [facility] [place] [facility] [address] [id number] [place] [address]- 4063 May, [facility] [place] [facility] [address] [id number] [place] [address]- 9683 May, [facility] [place] [facility] [address] [id number] [place] [address]- 9564 Apr, [facility] [place] [facility] [address] [id number] [place] [address]- 3878 Apr, [facility] [place] [facility] [address] [id number] [place] [address]- 2188 Apr, [facility] [place] [facility] [address] [id number] [place] [address]- 8506 Apr, [facility] [place] [facility] [address] [id number] [place] [address]- 6141 Apr, [facility] [place] [facility] [address] [id number] [address]- 4801 Apr, [facility] [place] [facility] [address] [id number] [place] [address]- 6414 18 Apr, 2014 [facility] [place] [facility] [address] [id number] [address]- 6660 18 Apr, 2014 [facility] [place] [facility] [address] [id number] [place] [address]- 4884 17 Apr, 2014 [facility] [place] [facility] [address] [id number] [place] [address]- 3100 17 Apr, 2014 [facility] [place] [facility] [address] [id number] [place] [address]- 4435 Apr, [facility] [place] [facility] [address] [id number] [place] [address]- 2849 Apr, [facility] [place] [facility] [address] [id number] [place] [address]- 5262 11 Apr, 2014 [facility] [place] [facility] [address] [id number] [place] [address]- 4014 10 Apr, 2014 [facility] [place] [facility] [address] [id number] [place] [address]- 6898 10 Apr, 2014 [facility] [place] [facility] [address] [id number] [address]- 2563 16 Mar, 2014 [facility] [place] [facility] [address] [id number] [address]- 6019 16 Mar, 2014 [facility] [place] [facility] [address] [id number] [address]- 3603 16 Mar, 2014 [facility] [place] [facility] [address] [id number] [address]- 6339 16 Mar, 2014 [facility] [place] [facility] [address] [id number] [address]- 1837 19 Jan, 2014 [facility] [place] [facility] [address] [id number] [place] [address]- 2672 19 Jan, 2014 [facility] [place] [facility] [address] [id number] [place] [address]- 4285 Jan, [facility] [place] [facility] [address] [id number] [place] [address]- 8612 Jan, [facility] [place] [facility] [address] [id number] [place] [address]- 3887 Jan, [facility] [place] [facility] [address] [id number] [place] [address]- 6019 Jan, [facility] [place] [facility] [address] [id number] [place] [address]- 9660 Dec, [facility] [place] [facility] [address] [id number] [place] [address]- 1636 Dec, [facility] [place] [facility] [address] [id number] [place] [address]- 8917 Dec, [facility] [place] [facility] [address] [id number] [place] [address]- 1326 Dec, [facility] [place] [facility] [address] [id number] [place] [address]- 6337 Nov, [facility] [place] [facility] [address] [id number] [place] [address]- 5382 Nov, [facility] [place] [facility] [address] [id number] [place] [address]- 7224 Nov, [facility] [place] [facility] [address] [id number] [place] [address]- 2882 Nov, [facility] [place] [facility] [address] [id number] [place] [address]- 5862 Oct, [facility] [place] [facility] [address] [id number] [place] [address]- 1311 Oct, [facility] [place] [facility] [address] [id number] [place] [address]- 9415 Oct, [facility] [place] [facility] [address] [id number] [place] [address]- 2006 Oct, [facility] [place] [facility] [address] [id number] [place] [address]- 8706 Oct, [facility] [place] [facility] [address] [id number] [place] [address]- 7716 Oct, [facility] [place] [facility] [address] [id number] [place] [address]- 2218 Oct, [facility] [place] [facility] [address] [id number] [place] [address]- 8863 Oct, [facility] [place] [facility] [address] [id number] [place] [address]- 8866 Oct, [facility] [place] [facility] [address] [id number] [place] [address]- 5275 Oct, [facility] [place] [facility] [address] [id number] [place] [address]- 3138 September, [facility] [place] [facility] [address] [id number] [place] [address]- 9040 September, [facility] [place] [facility] [address] [id number] [place] [address]- 3040 September, [facility] [place] [facility] [address] [id number] [place] [address]- 6552 September, [facility] [place] [facility] [address] [id number] [place] [address]- 8018 September, [facility] [place] [facility] [address] [id number] [place] [address]- 8711 September, [facility] [place] [facility] [address] [id number] [place] [address]- 1422 September, [facility] [place] [facility] [address] [id number] [place] [address]- 4765 September, [facility] [place] [facility] [address] [id number] [place] [address]- 4517 September, [facility] [place] [facility] [address] [id number] [place] [address]- 8051 Aug, [facility] [place] [facility] [address] [id number] [place] [address]- 5762 Aug, [facility] [place] [facility] [address] [id number] [place] [address]- 3510 Aug, [facility] [place] [facility] [address] [id number] [place] [address]- 0960 Aug, [facility] [place] [facility] [address] [id number] [place] [address]- 6174 Aug, [facility] [place] [facility] [address] [id number] [place] [address]- 6881 Aug, [facility] [place] [facility] [address] [id number] [place] [address]- 6692 Aug, [facility] [place] [facility] [address] [id number] [place] [address]- 3338 Aug, [facility] [place] [facility] [address] [id number] [place] [address]- 7764 Jul, [facility] [place] [facility] [address] [id number] [place] [address]- 7516 Jul, [facility] [place] [facility] [address] [id number] [place] [address]- 3739 Jul, [facility] [place] [facility] [address] [id number] [place] [address] Jul, [facility] [place] [facility] [address] [id number] [place] [address] Jul, [facility] [place] [facility] [address] [id number] [place] [address] Jul, [facility] [place] [facility] [address] [id number] [place] [address] Jul, [facility] [place] [facility] [address] [id number] [place] [address] 18 Jul, 2013 [facility] [place] [facility] [address] [id number] [place] [address] 18 Jul, 2013 [facility] [place] [facility] [address] [id number] [place] [address] 17 Jul, 2013 [facility] [place] [facility] [address] [id number] [place] [address] 17 Jul, 2013 [facility] [place] [facility] [address] [id number] [place] [address] Jul, [facility] [place] [facility] [address] [id number] [place] [address] Jul, [facility] [place] [facility] [address] [id number] [place] [address] Jul, [facility] [place] [facility] [address] [id number] [place] [address] Jul, [facility] [place] [facility] [address] [id number] [place] [address] Jul, [facility] [place] [facility] [address] [id number] [place] [address] Jul, [facility] [place] [facility] [address] [id number] [place] [address] Jul, [facility] [place] [facility] [address] [id number] [place] [address] Jul, [facility] [place] [facility] [address] [id number] [place] [address] Jun, [facility] [place] [facility] [address] [id number] [place] [address] Jun, [facility] [place] [facility] [address] [id number] [place] [address] May, [facility] [place] [facility] [address] [id number] [place] [address] May, [facility] [place] [facility] [address] [id number] [address] Apr, [facility] [place] [facility] [address] [id number] [place] [address] Apr, [facility] [place] [facility] [address] [id number] [place] [address] Apr, [facility] [place] [facility] [address] [id number] [place] [address] Apr, [facility] [place] [facility] [address] [id number] [place] [address] Apr, [facility] [place] [facility] [address] [id number] [place] [address] Apr, [facility] [place] [facility] [address] [id number] [place] [address] Mar, [facility] [place] [facility] [address] [id number] [place] [address] Mar, [facility] [place] [facility] [address] [id number] [place] [address] Mar, [facility] [place] [facility] [address] [id number] [place] [address] Mar, [facility] [place] [facility] [address] [id number] [place] [address] Jan, [facility] [place] [facility] [address] [id number] [address] Jan, [facility] [place] [facility] [address] [id number], [place] [address] Jan, [facility] [place] [facility] [address] [id number] [place] [address] Dec, [facility] [place] [facility] [address] [id number] [place] [address] Dec, [facility] [place] [facility] [address] [id number] [place] [address] Dec, [facility] [place] [facility] [address] [id number] [place] [address] Dec, [facility] [address] [id number] [place] [address] Nov, [facility] [place] [facility] [address] [id number] [place] [address] Nov, [facility] [place] [facility] [address] [id number] [place] [address] Nov, [facility] [place] [facility] [address] [id number] [place] [address] Oct, [facility] [place] [facility] [address] [id number] [place] [address]- [address] Oct, [facility] [place] [facility] [address] [id number] [place] [address] Oct, [facility] [place] [facility] [address] [id number] [place] [address] Oct, [facility] [address] [id number] [place] [address] Oct, [facility] [place] [facility] [address] [id number] [place] [address] Oct, [facility] [place] [facility] [address] [id number] [place] [address] September, [facility] [place] [facility] [address] [id number] [place] [address] Jul, [facility] [place] [facility] [address] [id number] [place] [address] Jul, [facility] [place] [facility] [address] [id number] [place] [address] Jul, [facility] [place] [facility] [address] [id number] [place] [address] Jul, [facility] [place] [facility] [address] [id number] [place] [address] Jul, [facility] [address] [id number] [place] [address] Jul, [facility] [place] [facility] [address] [id number] [place] [address] Jun, [facility] [place] [facility] [address] [id number] [place] [address] Apr, [facility] [place] [facility] [address] [id number] [place] [address] Apr, [facility] [place] [facility] [address] [id number] [place] [address] Jan, [facility] [place] [facility] [address] [id number] [place] [address] Dec, [facility] [place] [facility] [address] [id number] [place] [address] Nov, [facility] [place] [facility] [address] [id number] [place] [address] Oct, [facility] [place] [facility] [address] [id number] [place] [address] September, [facility] [place] [facility] [address] [id number] [place] [address] September, [facility] [place] [facility] [address] [id number] [place] [address] Jul, [facility] [place] [facility] [address] [id number] [place] [address] Jul, [facility] [place] [facility] [address] [id number] [place] [address] Jul, [facility] [place] [facility] [address] [id number] [place] [address] Jul, [facility] [place] [facility] [address] [id number] [place] [address] Jul, [facility] [place] [facility] [address] [id number] [place] [address] 17 Jul, 2011 [facility] [place] [facility] [address] [id number] [place] [address] 13 Jul, 2011 [facility] [place] [facility] [address] [id number] [place] [address] 11 Jul, 2011 [facility] [place] [facility] [address] [id number] [place] [address] 08 Jul, 2011 [facility] [place] [facility] [address] [id number] [place] [address] 07 Jul, 2011 [facility] [place] [facility] [address] [id number] [place] [address] Jun, [facility] [place] [facility] [address] [facility] [id number] [place] [address] May, [facility] [place] [facility] [address] [id number] [place] [address] May, [facility] [place] [facility] [address] [id number] [place] [address] May, [facility] [place] [facility] [address] [facility] [id number] [place] [address] Apr, [facility] [place] [facility] [address] [facility] [id number] [place] [address] Apr, [facility] [place] [facility] [address] [facility] [id number] [place] [address] 20 Mar, 2011 [facility] [place] [facility] [address] [id number] [place] [address] Mar, [facility] [place] [facility] [address] [id number] [place] [address] Mar, [facility] [place] [facility] [address] [facility] [id number] [place] [address] Mar, [facility] [place] [facility] [address] [facility] [id number] [place] [address] Mar, [facility] [address] [facility] [id number] [address] September, [facility] [id number] [address] Mar, [facility] [address] [facility] [id number], [place] [address] Dec, [facility] [id number] [address] May, [facility] [address] [facility] [id number], [place] [address] May, IMMUNIZATIONS No Known Immunizations SOCIAL HISTORY Never Assessed REASON FOR VISIT Controlled Med Update PLAN OF CARE VITAL SIGNS MEDICATIONS No [...]
--- OUTSIDE RECORDS SUMMARY | 2018-03-04 18:17 | XMS REPORT ---
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 Active 262599983 Problem Cervical spondylosis with radiculopathy M47.22 Active 246123493 Problem Chronic tension-type headache, intractable G44.221 Active 097187940 Problem Anxiety F41.9 Active 01015072 Problem Mixed hyperlipidemia E78.2 Active 876886587 Problem Generalized anxiety disorder F41.1 Active 67878724 Problem Major depressive disorder, recurrent episode, moderate F33.1 Active 316614260 ALLERGIES No Information ENCOUNTERS Encounter Location Date Diagnosis [place] [id number] [place] [address] 86225- 7860 Dec, Cervical spondylosis with radiculopathy M47.22 and Depression, unspecified depression type F32.9 [facility] [address], [place] [address] 2581 Oct, [facility] [address], [place] [address] 5598 Oct, [facility] [address] [place] [id number] [place] [address] 43420- 2129 Oct, [facility] [address], [place] [address]- 9966 September, Chronic pain syndrome G89.4 [facility] [address] [place] [address] [id number] [place] [address] 50779- 0541 September, Depression, unspecified depression type F32.9 and Cervicalgia M54.2 [place] [address] 81325- 9510 September, Chronic pain syndrome G89.4 [place] [address] 71751- 8996 Aug, Red stool R19.5 [place] [address] 00094- 9028 Aug, Depression, unspecified depression type F32.9 ; Chronic pain syndrome G89.4 ; Chronic tension-type headache, intractable G44.221 ; Red stool R19.5 ; Hypothyroidism, unspecified E03.9 and Mixed hyperlipidemia E78.2 [place] [address] 51306- 0641 Jul, Major depressive disorder, recurrent episode, moderate F33.1 [place] [address] 79931- 3198 Jul, [place] [address] 79148- 0838 Jul, Hypothyroidism, unspecified E03.9 [place] [address] 32678- 4411 Jul, Hypothyroidism, unspecified E03.9 [place] [address] [place] [id number] [place] [address] 64052- 3560 Jul, Mixed hyperlipidemia E78.2 [place] [address] 45120- 5732 Jul, Mixed hyperlipidemia E78.2 [facility] [address] [id number] [place] [address] 34635 -5259 Jul, Bronchitis J40 ; Cough R05 and Wheezing R06.2 [place] [address] 17384- 5764 Jul, Major depressive disorder, recurrent episode, moderate F33.1 and Generalized anxiety disorder F41.1 [place] [address] [place] [id number] [place] [address] 54960- 4221 Jul, [place] [address] 96584- 0464 Jul, Major depressive disorder, recurrent episode, moderate F33.1 and Generalized anxiety disorder F41.1 [place] [address] 61454- 0134 Jul, Generalized anxiety disorder F41.1 and Major depressive disorder, recurrent episode, moderate F33.1 [place] [address] [place] [id number] [place] [address] 60198- 5647 Jul, Mixed hyperlipidemia E78.2 [place] [address] 28603- 4655 Jun, Depression, unspecified depression type F32.9 ; Cervicalgia M54.2 ; Trigger point M79.1 ; Hypothyroidism, unspecified E03.9 ; Screening, lipid Z13.220 and Mixed hyperlipidemia E78.2 [place] [address] [place] [id number] [place] [address] 56014- 2430 Jun, [place] [address] 25315- 2281 May, [place] [address] 88044- 7170 Apr, Acute bronchitis due to other specified organisms J20.8 and Tobacco abuse counseling Z71.6 [place] [address] 60132- 9192 Mar, Depression, unspecified depression type F32.9 [place] [address] [place] [id number] [place] [address] 47116- 5210 Jan, Chronic pain syndrome G89.4 [place] [address] [place] [address]- 1098 Nov, Anxiety F41.9 ; Depression, unspecified depression type F32.9 and Chronic pain syndrome G89.4 [facility] [address] [place] [id number] [place] [address] 00436- 2684 Oct, Anxiety F41.9 and Hypothyroidism, unspecified E03.9 [facility] [address] 14040 -6468 Oct, Left foot pain M79.672 and Contusion of left foot, 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 S90.32XA [facility] [address] 64803- 6708 Oct, [facility] [address] 00953- 3311 September, Cervicalgia M54.2 [facility] [address] 27289- 5307 September, [facility] [address] 55127- 2521 Aug, Cervicalgia M54.2 [facility] [address] 77580- 1453 Aug, Cervicalgia M54.2 and Left arm numbness R20.0 [facility] [address] [place] [id number] [place] [address] 82387- 0011 Aug, [facility] [address] 25551- 2245 Aug, [facility] [address] [place] [address] [id number] [place] [address] 73552- 0207 Jul, [facility] [address] [place] [id number] [place] [address] 63013- 2554 Jul, [facility] [address] [place] [id number] [place] [address] 15177- 7935 Jul, [facility] [address] [place] [id number] [place] [address] 92963- 7086 Jul, Acute midline low back pain without sciatica M54.5 [facility] [address] 54239- 7279 Jun, Acute midline low back pain without sciatica M54.5 [facility] [address] 79686- 5879 Jun, Chronic pain syndrome G89.4 and Muscle spasm M62.838 [place] [address] 22703- 6672 Jun, [place] [address] 19840- 7852 Jun, Acute midline low back pain without sciatica M54.5 [place] [address] 67443- 3556 Jun, [place] [address] 76839- 9672 May, [place] [address] 60208- 9007 May, Hypothyroidism, unspecified E03.9 ; Chronic pain syndrome G89.4 ; Hyperglycemia R73.9 ; Encounter for immunization Z23 and Mixed hyperlipidemia E78.2 [place] [address] [place] [id number] [place] [address] 59440- 1990 Apr, Fatigue 780.79 [facility] [address] [place] [id number] [place] [address] 10525- 0649 Apr, Chronic pain syndrome G89.4 [facility] [address] 89277- 8686 Mar, [facility] [address] 51274- 5883 Mar, Chronic pain syndrome G89.4 [facility] [address] 17757- 1082 Jan, [facility] [address], [place] [address]- 6296 Dec, [facility] [address] [place] [address] 97409- 8979 Dec, Chronic pain syndrome G89.4 [facility] [address] [place] [address] 36619- 5169 Dec, Trigger point M79.2 [facility] [address] [place] [id number] [place] [address] 63851- 2081 Nov, Chronic pain syndrome G89.4 [facility] [address] [place] [id number] [place] [address] 43531- 0762 Oct, Chronic pain syndrome G89.4 [facility] [address] [place] [address] 89269- 4068 Oct, Irritant contact dermatitis due to detergent L24.0 [facility] [address] [place] [address] 66435- 8950 September, Hypothyroidism, unspecified E03.9 and Depression, unspecified depression type F32.9 [facility] [address] [place] [address] 72588- 2053 September, Chronic pain syndrome G89.4 [facility] [address] [place] [address] 99481- 1525 Aug, [facility] [address] [place] [id number] [place] [address] 26370- 0325 Aug, Trigger point M79.2 [facility] [address] [place] [address] 86360- 2692 Jul, Chronic pain syndrome G89.4 and 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 [facility] [address] [place] [address] 46549- 9988 Jul, Chronic pain syndrome G89.4 and residential 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.891 [facility] [address] [id number], [place] [address]- 1466 Jul, [facility] [address], [place] [address]- 3866 Jul, [facility] [address], [place] [address]- 9658 Jun, [facility] [address], [place] [address]- 8431 May, [facility] [address], [place] [address]- 8250 May, [facility] [id number] [place] [address] 39721- 3084 May, [facility] [address], [place] [address]- 8806 May, Pneumonia, organism unspecified, unspecified laterality, unspecified part of lung J18.9 [facility] [address], [place] [address]- 3407 May, Pneumonia, organism unspecified, unspecified laterality, unspecified part of lung J18.9 [facility] [address], [place] [address]- 1850 Apr, [facility] [address] [place] [id number], [place] [address]- 1354 Apr, [facility] [id number], [place] [address]- 8672 Apr, [facility] [address], [place] [address]- 2398 Apr, [facility] [address], [place] [address]- 3755 Apr, [facility] [address] [id number], [place] [address]- 1872 Apr, Epigastric pain R10.13 [facility] [address], [place] [address]- 4268 Mar, Tinea pedis B35.3 and Contact dermatitis and eczema due to detergents L24.0 [facility] [address], [place] [address]- 2411 Mar, [facility] [address] [place] [id number] [place] [address] 53871- 5908 Jan, [facility] [address] [place] [id number] [place] [address] 17145- 8219 Jan, [facility] [address] [place] [id number] [place] [address] 76652- 0512 Jan, [facility] [address] [place] [id number] [place] [address] 21240- 3826 Dec, [facility] [address] [place] [id number] [place] [address] 08129- 7124 Nov, [facility] [address] [place] [id number] [place] [address] 24135- 0646 Nov, Fatigue 780.79 [place] [address] [place] [id number] [place] [address] 26274- 3410 Nov, [facility] [address] [place] [id number] [place] [address] 40328- 9429 Nov, Unspecified myalgia and myositis 729.1 [place] [address] [place] [id number] [place] [address] 90055- 2525 Nov, Hypercalcemia 275.42 [facility] [address] [place] [id number] [place] [address] 85951- 6409 Nov, Fatigue 780.79 ; Bradycardia 427.89 ; Chronic pain 338.29 and Family history of diabetes mellitus V18.0 [facility] [address], [place] [address]- 0238 Nov, Fatigue 780.79 ; Chronic pain 338.29 ; Family history of diabetes mellitus V18.0 ; Bradycardia 427.89 ; Hypothyroid 244.9 and Anxiety 300.00 [facility] [address], [place] [address]- 2122 Oct, [facility] [address], [place] [address]- 9293 September, [facility] [address] [place] [id number] [place] [address] 14115- 3989 Aug, [facility] [address] [place] [id number] [place] [address] 60539- 1120 Aug, [facility] [address] [id number] [place] [address] 61371- 5406 Aug, [facility] [address] [id number] [place] [address] 88806- 8152 Jul, [facility] [address] [place] [id number] [place] [address] 37563- 8978 Jul, [facility] [address], [place] [address]- 4151 Jul, [facility] [address] [id number] [place] [address] 64588- 8626 Jul, [facility] [address], [place] [address]- 8117 Jun, [facility] [address], [place] [address]- 3247 Jun, [facility] [address], [place] [address]- 9618 Jun, [facility] [address], [place] [address]- 7972 Jun, [facility] [address], [place] [address]- 8581 Jun, [facility] [address], [place] [address]- 7568 Jun, [facility] [place] [facility] [address] [id number] [place] [address]- 1711 May, [facility] [place] [facility] [address] [id number] [place] [address]- 0651 May, [facility] [place] [facility] [address] [id number] [place] [address]- 3135 May, [facility] [place] [facility] [address] [id number] [place] [address]- 6614 May, [facility] [place] [facility] [address] [id number] [place] [address]- 4662 May, [facility] [place] [facility] [address] [id number] [place] [address]- 9205 May, [facility] [place] [facility] [address] [id number] [place] [address]- 4493 May, [facility] [place] [facility] [address] [id number] [place] [address]- 4803 May, [facility] [place] [facility] [address] [id number] [place] [address]- 3165 May, [facility] [place] [facility] [address] [id number] [place] [address]- 9818 May, [facility] [place] [facility] [address] [id number] [place] [address]- 5643 Apr, [facility] [place] [facility] [address] [id number] [place] [address]- 2992 Apr, [facility] [place] [facility] [address] [id number] [place] [address]- 0558 Apr, [facility] [place] [facility] [address] [id number] [place] [address]- 2865 Apr, [facility] [place] [facility] [address] [id number] [place] [address]- 4923 Apr, [facility] [place] [facility] [address] [id number], [place] [address]- 5834 Apr, [facility] [place] [facility] [address] [id number] [place] [address]- 7666 18 Apr, 2014 [facility] [place] [facility] [address] [id number], [place] [address]- 4809 18 Apr, 2014 [facility] [place] [facility] [address] [id number] [place] [address]- 4313 17 Apr, 2014 [facility] [place] [facility] [address] [id number] [place] [address]- 3953 17 Apr, 2014 [facility] [place] [facility] [address] [id number] [place] [address]- 0973 Apr, [facility] [place] [facility] [address] [id number] [place] [address]- 0063 Apr, [facility] [place] [facility] [address] [id number] [place] [address]- 9545 11 Apr, 2014 [facility] [place] [facility] [address] [id number] [place] [address]- 9006 10 Apr, 2014 [facility] [place] [facility] [address] [id number] [place] [address]- 5693 10 Apr, 2014 [facility] [place] [facility] [address] [id number], [place] [address]- 0869 16 Mar, 2014 [facility] [place] [facility] [address] [id number], [place] [address]- 5543 16 Mar, 2014 [facility] [place] [facility] [address] [id number], [place] [address]- 9385 16 Mar, 2014 [facility] [place] [facility] [address] [id number], [place] [address]- 9697 16 Mar, 2014 [facility] [place] [facility] [address] [id number], [place] [address]- 3834 19 Jan, 2014 [facility] [place] [facility] [address] [id number] [place] [address]- 3786 19 Jan, 2014 [facility] [place] [facility] [address] [id number] [place] [address]- 5050 Jan, [facility] [place] [facility] [address] [id number] [place] [address]- 3638 Jan, [facility] [place] [facility] [address] [id number] [place] [address]- 2348 Jan, [facility] [place] [facility] [address] [id number] [place] [address]- 2002 Jan, [facility] [place] [facility] [address] [id number] [place] [address]- 2079 Dec, [facility] [place] [facility] [address] [id number] [place] [address]- 6268 Dec, [facility] [place] [facility] [address] [id number] [place] [address]- 0317 Dec, [facility] [place] [facility] [address] [id number] [place] [address]- 7748 Dec, [facility] [place] [facility] [address] [id number] [place] [address]- 3782 Nov, [facility] [place] [facility] [address] [id number] [place] [address]- 1979 Nov, [facility] [place] [facility] [address] [id number] [place] [address]- 2311 Nov, [facility] [place] [facility] [address] [id number] [place] [address]- 1430 Nov, [facility] [place] [facility] [address] [id number] [place] [address]- 1088 Oct, [facility] [place] [facility] [address] [id number] [place] [address]- 1730 Oct, [facility] [place] [facility] [address] [id number] [place] [address]- 1377 Oct, [facility] [place] [facility] [address] [id number] [place] [address]- 6686 Oct, [facility] [place] [facility] [address] [id number] [place] [address]- 6773 Oct, [facility] [place] [facility] [address] [id number] [place] [address]- 7514 Oct, [facility] [place] [facility] [address] [id number] [place] [address]- 1855 Oct, [facility] [place] [facility] [address] [id number] [place] [address]- 0398 Oct, [facility] [place] [facility] [address] [id number] [place] [address]- 5588 Oct, [facility] [place] [facility] [address] [id number] [place] [address]- 2686 Oct, [facility] [place] [facility] [address] [id number] [place] [address]- 5064 September, [facility] [place] [facility] [address] [id number] [place] [address]- 8646 September, [facility] [place] [facility] [address] [id number] [place] [address]- 6477 September, [facility] [place] [facility] [address] [id number] [place] [address]- 4609 September, [facility] [place] [facility] [address] [id number] [place] [address]- 6719 September, [facility] [place] [facility] [address] [id number] [place] [address]- 0069 September, [facility] [place] [facility] [address] [id number] [place] [address]- 2148 September, [facility] [place] [facility] [address] [id number] [place] [address]- 3827 September, [facility] [place] [facility] [address] [id number] [place] [address]- 1139 September, [facility] [place] [facility] [address] [id number] [place] [address]- 0577 Aug, [facility] [place] [facility] [address] [id number] [place] [address]- 0421 Aug, [facility] [place] [facility] [address] [id number] [place] [address]- 2836 Aug, [facility] [place] [facility] [address] [id number] [place] [address]- 0620 Aug, [facility] [place] [facility] [address] [id number] [place] [address]- 4470 Aug, [facility] [place] [facility] [address] [id number] [place] [address]- 5547 Aug, [facility] [place] [facility] [address] [id number] [place] [address]- 8696 Aug, [facility] [place] [facility] [address] [id number] [place] [address]- 5487 Aug, [facility] [place] [facility] [address] [id number] [place] [address]- 7651 Jul, [facility] [place] [facility] [address] [id number] [place] [address]- 2817 Jul, [facility] [place] [facility] [address] [id number] [place] [address]- 0285 Jul, [facility] [place] [facility] [address] [id number] [place] [address]- 7337 Jul, [facility] [place] [facility] [address] [id number] [place] [address]- 2966 Jul, [facility] [place] [facility] [address] [id number] [place] [address]- 5522 Jul, [facility] [place] [facility] [address] [id number] [place] [address]- 6727 Jul, [facility] [place] [facility] [address] [id number] [place] [address]- 4384 18 Jul, 2013 [facility] [place] [facility] [address] [id number] [place] [address]- 1869 18 Jul, 2013 [facility] [place] [facility] [address] [id number] [place] [address]- 8932 17 Jul, 2013 [facility] [place] [facility] [address] [id number] [place] [address] 17 Jul, 2013 [facility] [place] [facility] [address] [id number] [place] [address] Jul, [facility] [place] [facility] [address] [id number] [place] [address] Jul, [facility] [place] [facility] [address] [id number] [place] [address] Jul, [facility] [place] [facility] [address] [id number] [place] [address] Jul, [facility] [place] [facility] [address] [id number] [place] [address] Jul, [facility] [place] [facility] [address] [id number] [place] [address] Jul, [facility] [place] [facility] [address] [id number] [place] [address] Jul, [facility] [place] [facility] [address] [id number] [place] [address] Jul, [facility] [place] [facility] [address] [id number] [place] [address] Jun, [facility] [place] [facility] [address] [id number] [place] [address] Jun, [facility] [place] [facility] [address] [id number] [place] May, [facility] [place] [facility] [address] [id number] [place] [address] May, [facility] [place] [facility] [address] [id number], [place] [address] Apr, [facility] [place] [facility] [address] [id number] [place] [address] Apr, [facility] [place] [facility] [address] [id number] [place] [address] Apr, [facility] [place] [facility] [address] [id number] [place] [address] Apr, [facility] [place] [facility] [address] [id number] [place] [address]- [address] Apr, [facility] [place] [facility] [address] [id number] [place] [address] Apr, [facility] [place] [facility] [address] [id number] [place] [address] Mar, [facility] [place] [facility] [address] [id number] [place] [address] Mar, [facility] [place] [facility] [address] [id number] [place] [address] Mar, [facility] [place] [facility] [address] [id number] [place] [address] Mar, [facility] [place] [facility] [address] [id number] [place] [address] Jan, [facility] [place] [facility] [address] [id number], [place] [address] Jan, [facility] [place] [facility] [address] [id number], [place] [address] Jan, [facility] [place] [facility] [address] [id number] [place] [address] Dec, [facility] [place] [facility] [address] [id number] [place] [address] [address] Dec, [facility] [place] [facility] [address] [id number] [place] [address] Dec, [facility] [place] [facility] [address] [id number] [place] [address] Dec, [facility] [address] [id number] [place] [address] Nov, [facility] [place] [facility] [address] [id number] [place] [address] Nov, [facility] [place] [facility] [address] [id number] [place] [address] Nov, [facility] [place] [facility] [address] [id number] [place] [address] Oct, [facility] [place] [facility] [address] [id number] [place] [address] Oct, [facility] [place] [facility] [address] [id number] [place] [address] Oct, [facility] [place] [facility] [address] [id number] [place] [address] Oct, [facility] [address] [id number] [place] [address] Oct, [facility] [place] [facility] [address] [id number] [place] [address] Oct, [facility] [place] [facility] [address] [id number] [place] [address] September, [facility] [place] [facility] [address] [id number] [place] [address] Jul, [facility] [place] [facility] [address] [id number] [place] [address] Jul, [facility] [place] [facility] [address] [id number] [place] [address] Jul, [facility] [place] [facility] [address] [id number] [place] [address] Jul, [facility] [place] [facility] [address] [id number] [place] [address] Jul, [facility] [address] [id number] [place] [address] Jul, [facility] [place] [facility] [address] [id number] [place] [address] Jun, [facility] [place] [facility] [address] [id number] [place] [address] Apr, [facility] [place] [facility] [address] [id number] [place] [address] Apr, [facility] [place] [facility] [address] [id number] [place] [address] Jan, [facility] [place] [facility] [address] [id number] [place] [address] Dec, [facility] [place] [facility] [address] [id number] [place] [address] Nov, [facility] [place] [facility] [address] [id number] [place] [address] Oct, [facility] [place] [facility] [address] [id number] [place] [address] September, [facility] [place] [facility] [address] [id number] [place] [address] September, [facility] [place] [facility] [address] [id number] [place] [address] Jul, [facility] [place] [facility] [address] [id number] [place] [address] Jul, [facility] [place] [facility] [address] [id number] [place] [address] Jul, [facility] [place] [facility] [address] [id number] [place] [address] Jul, [facility] [place] [facility] [address] [id number] [place] [address] Jul, [facility] [place] [facility] [address] [id number] [place] [address] 17 Jul, 2011 [facility] [place] [facility] [address] [id number] [place] [address] 13 Jul, 2011 [facility] [place] [facility] [address] [id number] [place] [address] 11 Jul, 2011 [facility] [place] [facility] [address] [id number] [place] [address] 08 Jul, 2011 [facility] [place] [facility] [address] [id number] [place] [address] 07 Jul, 2011 [facility] [place] [facility] [address] [id number] [place] [address] Jun, [facility] [place] [facility] [address] [facility] [id number] [place] [address] May, [facility] [place] [facility] [address] [id number] [place] [address] May, [facility] [place] [facility] [address] [id number] [place] [address] May, [facility] [place] [facility] [address] [facility] [id number] [place] [address] Apr, [facility] [place] [facility] [address] [facility] [id number] [place] [address] Apr, [facility] [place] [facility] [address] [facility] [id number] [place] [address] 20 Mar, 2011 [facility] [place] [facility] [address] [id number] [place] [address] Mar, [facility] [place] [facility] [address] [id number] [place] [address] Mar, [facility] [place] [facility] [address] [facility] [id number] [place] [address] Mar, [facility] [place] [facility] [address] [facility] [id number] [place] [address] Mar, [facility] [address] [facility] [id number], [place] [address] September, [facility] [id number], [place] [address] Mar, [facility] [address] [facility] [id number], [place] [address] Dec, [facility] [id number], [place] [address] May, [facility] [address] [facility] [id number], [place] [address] May, IMMUNIZATIONS No Known Immunizations SOCIAL HISTORY Never Assessed REASON FOR VISIT [place] Request PLAN OF CARE VITAL SIGNS MEDICATIONS No [...]
--- OUTSIDE RECORDS SUMMARY | 2018-03-04 18:18 | XMS REPORT ---
Author Author CEDRICK BARCENAS Organization [facility] Address [address] [place] [address] Care Team Providers Care Integrity Analyst Name Role Phone CEDRICK BARCENAS Unavailable PROBLEMS Type Condition ICD9-CM Code [id number] Code Onset Dates Condition Status SNOMED Code Problem shelter 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.891 Active 031091205 Problem Depression, unspecified depression type F32.9 Active 00068076 Problem Chronic pain syndrome G89.4 Active 691867672 Problem Chronic tension-type headache, intractable G44.221 Active 911888486 Problem Generalized anxiety disorder F41.1 Active 02446654 Problem Mixed hyperlipidemia E78.2 Active 798748265 Problem Hypothyroidism, unspecified E03.9 Active 47634250 Problem Major depressive disorder, recurrent episode, moderate F33.1 Active 721377042 Problem Anxiety F41.9 Active 40071942 ALLERGIES No Information ENCOUNTERS Encounter Location Date Diagnosis [facility] [id number] [place] [address] 23656- 9034 Dec, [facility] [id number] [place] [address] 43859- 3734 Oct, [facility] [id number] [place] [address] 51531- 0385 Oct, [facility] [id number] [place] [address] 45576- 4604 Oct, [facility] [address] [address]30- 2964 September, Chronic pain syndrome G89.4 [facility] [id number] [place] [address] 02249- 3367 September, Depression, unspecified depression type F32.9 and Cervicalgia M54.2 [facility] [id number] [place] [address] 25026- 7080 September, Chronic pain syndrome G89.4 [facility] [id number] [place] [address] 17251- 3135 Aug, Red stool R19.5 [facility] [id number] [place] [address] 08380- 9026 Aug, Depression, unspecified depression type F32.9 ; Chronic pain syndrome G89.4 ; Chronic tension-type headache, intractable G44.221 ; Red stool R19.5 ; Hypothyroidism, unspecified E03.9 and Mixed hyperlipidemia E78.2 [facility] [id number] [place] [address] 50125- 0052 Jul, Major depressive disorder, recurrent episode, moderate F33.1 [facility] [id number] [place] [address] 10408- 3758 Jul, [facility] [address] 42851- 1622 Jul, Hypothyroidism, unspecified E03.9 [facility] [id number] [place] [address] 11221- 3470 Jul, Hypothyroidism, unspecified E03.9 [facility] [id number] [place] [address] 11447- 6214 Jul, Mixed hyperlipidemia E78.2 [facility] [id number] [place] [address] 25685- 3470 Jul, Mixed hyperlipidemia E78.2 [facility] [id number] [place] [address] 77980 -9002 08 Jul, 2017 Bronchitis J40 ; Cough R05 and Wheezing R06.2 [facility] [id number] [place] [address] 58507- 0836 07 Jul, 2017 Major depressive disorder, recurrent episode, moderate F33.1 and Generalized anxiety disorder F41.1 [facility] [id number] [place] [address] 50076- 5209 Jul, [facility] [address] 06051- 1768 Jul, Major depressive disorder, recurrent episode, moderate F33.1 and Generalized anxiety disorder F41.1 [facility] [address] 54125- 7393 Jul, Generalized anxiety disorder F41.1 and Major depressive disorder, recurrent episode, moderate F33.1 [facility] [address] 62054- 5545 Jul, Mixed hyperlipidemia E78.2 [facility] [address] 99826- 1599 Jun, Depression, unspecified depression type F32.9 ; Cervicalgia M54.2 ; Trigger point M79.1 ; Hypothyroidism, unspecified E03.9 ; Screening, lipid Z13.220 and Mixed hyperlipidemia E78.2 [facility] [id number] [place] [address] 04311- 2663 Jun, [facility] [address] 18316- 0403 May, [facility] [address] 24775- 2814 Apr, Acute bronchitis due to other specified organisms J20.8 and Tobacco abuse counseling Z71.6 [facility] [id number] [place] [address] 36307- 1019 Mar, Depression, unspecified depression type F32.9 [facility] [id number] [place] [address] 11453- 3804 Jan, Chronic pain syndrome G89.4 [facility] [id number] [place] [address] 37316- 5834 Nov, Anxiety F41.9 ; Depression, unspecified depression type F32.9 and Chronic pain syndrome G89.4 [facility] [id number] [place] [address] 25759- 2781 Oct, Anxiety F41.9 and Hypothyroidism, unspecified E03.9 [facility] [id number] [place] [address] 96253 -8599 Oct, Left foot pain M79.672 and Contusion of left foot, 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 S90.32XA [facility] [address] 96863- 4010 Oct, [facility] [address] 28733- 4210 September, Cervicalgia M54.2 [facility] [address] 60917- 2463 September, [facility] [address] 28881- 8373 Aug, Cervicalgia M54.2 [facility] [id number] [place] [address] 25420- 5470 Aug, Cervicalgia M54.2 and Left arm numbness R20.0 [facility] [id number] [place] [address] 43743- 8153 Aug, [facility] [id number] [place] [address] 78722- 7131 Aug, [facility] [id number] [place] [address] 27139- 4623 Jul, [facility] [id number] [place] [address] 44861- 4296 Jul, [facility] [address] 77325- 8311 Jul, [facility] [id number] [place] [address] 29483- 2740 Jul, Acute midline low back pain without sciatica M54.5 [facility] [id number] [place] [address] 33334- 5291 Jun, Acute midline low back pain without sciatica M54.5 [facility] [id number] [place] [address] 84342- 4385 Jun, Chronic pain syndrome G89.4 and Muscle spasm M62.838 [facility] [id number] [place] [address] 24791- 2481 Jun, [facility] [id number] [place] [address] 36978- 5965 Jun, Acute midline low back pain without sciatica M54.5 [facility] [address] 59668- 1680 Jun, [facility] [id number] [place] [address] 25773- 3136 May, [facility] [address] 95380- 3620 May, Hypothyroidism, unspecified E03.9 ; Chronic pain syndrome G89.4 ; Hyperglycemia R73.9 ; Encounter for immunization Z23 and Mixed hyperlipidemia E78.2 [facility] [id number] [place] [address] 41697- 2248 Apr, Fatigue 780.79 [facility] [id number] [place] [address] 86633- 4080 Apr, Chronic pain syndrome G89.4 [facility] [id number] [place] [address] 80442- 4992 Mar, [facility] [id number] [place] [address] 45872- 5528 Mar, Chronic pain syndrome G89.4 [facility] [id number] [place] [address] 28449- 3487 Jan, [facility] [id number] [place] [address] 74160- 0820 Dec, [facility] [id number] [place] [address] 88285- 9402 Dec, Chronic pain syndrome G89.4 [facility] [id number] [place] [address] 52640- 7941 Dec, Trigger point M79.2 [facility] [id number] [place] [address] 64062- 7270 Nov, Chronic pain syndrome G89.4 [facility] [id number] [place] [address] 90808- 7349 Oct, Chronic pain syndrome G89.4 [facility] [id number] [place] [address] 78708- 5977 Oct, Irritant contact dermatitis due to detergent L24.0 [facility] [id number] [place] [address] 28019- 2429 September, Hypothyroidism, unspecified E03.9 and Depression, unspecified depression type F32.9 [facility] [id number] [place] [address] 49240- 4384 September, Chronic pain syndrome G89.4 [facility] [id number] [place] [address] 72561- 6490 Aug, [facility] [id number] [place] [address] 99856- 1985 Aug, Trigger point M79.2 [facility] [id number] [place] [address] 12135- 0376 Jul, Chronic pain syndrome G89.4 and shelter 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.891 [facility] [id number] [place] [address] 06736- 6960 Jul, Chronic 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 syndrome G89.4 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 [facility] [id number] [place] [address] 47363- 5126 Jul, [facility] [address] [address]- 6712 Jul, [facility] [address] 0055 Jun, [facility] [id number] [address]- 0397 May, [facility] [id number] [place] [address] 881774- 9981 May, [facility] [id number] [address]- 0024 May, [facility] [id number] [place] [address] 074385- 0724 May, Pneumonia, organism unspecified, unspecified laterality, unspecified part of lung J18.9 [facility] [id number] [address]- 2766 May, Pneumonia, organism unspecified, unspecified laterality, unspecified part of lung J18.9 [facility] [address] [address]- 7308 Apr, [facility] [id number] [address]- 3403 Apr, [facility] [address] [address]- 7717 Apr, [facility] [address] [address]- 9661 Apr, [facility] [id number] [address]- 2597 Apr, [facility] [address] [address]- 9717 Apr, Epigastric pain R10.13 [facility] [id number] [address]- 0030 Mar, Tinea pedis B35.3 and Contact dermatitis and eczema due to detergents L24.0 [facility] [id number] [place] [address] 77363- 6820 Mar, [facility] [id number] [place] [address] 96742- 6451 Jan, [facility] [id number] [place] [address] 03925- 7277 Jan, [facility] [id number] [place] [address] 816027- 7724 Jan, [facility] [id number] [place] [address] 56814- 8574 Dec, [facility] [id number] [place] [address] 27525- 9369 Nov, [facility] [id number] [place] [address] 79738- 4054 Nov, Fatigue 780.79 [facility] [id number] [place] [address] 79088- 8082 Nov, [facility] [id number] [place] [address] 60607- 3777 Nov, Unspecified myalgia and myositis 729.1 [facility] [id number] [place] [address] 45580- 0477 Nov, Hypercalcemia 275.42 [facility] [id number] [place] [address] 09800- 5159 Nov, Fatigue 780.79 ; Bradycardia 427.89 ; Chronic pain 338.29 and Family history of diabetes mellitus V18.0 [facility] [id number] [place] [address] 81632- 1370 Nov, Fatigue 780.79 ; Chronic pain 338.29 ; Family history of diabetes mellitus V18.0 ; Bradycardia 427.89 ; Hypothyroid 244.9 and Anxiety 300.00 [facility] [id number] [place] [address] 67011- 7925 Oct, [facility] [place] [facility] [address] [id number] [place] [address]- 3238 September, [facility] [place] [facility] [address] [id number] [place] [address]- 7974 Aug, [facility] [place] [facility] [address] [id number] [place] [address]- 4308 Aug, [facility] [place] [facility] [address] [id number] [place] [address]- 2881 Aug, [facility] [place] [facility] [address] [id number] [place] [address]- 7012 Jul, [facility] [place] [facility] [address] [id number] [place] [address]- 9471 Jul, [facility] [place] [facility] [address] [id number] [place] [address]- 1435 Jul, [facility] [place] [facility] [address] [id number] [place] [address]- 3017 Jul, [facility] [place] [facility] [address] [id number] [place] [address]- 8458 Jun, [facility] [place] [facility] [address] [id number] [place] [address]- 8772 Jun, [facility] [place] [facility] [address] [id number] [address]- 5465 Jun, [facility] [place] [facility] [address] [id number] [address]- 4847 Jun, [facility] [place] [facility] [address] [id number] [place] [address]- 8113 Jun, [facility] [place] [facility] [address] [facility] [id number] [place] [address]- 5114 Jun, [facility] [place] [facility] [address] [id number] [place] [address]- 3665 May, [facility] [place] [facility] [address] [id number] [place] [address]- 7080 May, [facility] [address] [id number] [place] [address]- 5726 May, [facility] [place] [facility] [address] [id number] [place] [address]- 5603 May, [facility] [address] [id number] [place] [address]- 2356 15 May, 2014 [facility] [place] [facility] [address] [id number] [place] [address]- 4991 15 May, 2014 [facility] [address] [id number] [place] [address]- 6343 May, [facility] [place] [facility] [address] [id number] [place] [address]- 4025 May, [facility] [place] [facility] [address] [id number] [place] [address]- 5530 May, [facility] [place] [facility] [address] [id number] [place] [address]- 1654 May, [facility] [place] [facility] [address] [id number] [place] [address]- 5100 Apr, [facility] [place] [facility] [address] [id number] [place] [address]- 6250 Apr, [facility] [place] [facility] [address] [id number] [place] [address]- 2955 Apr, [facility] [place] [facility] [address] [id number] [place] [address]- 4210 Apr, [facility] [place] [facility] [address] [id number] [place] [address]- 8490 Apr, [facility] [place] [facility] [address] [id number] [place] [address]- 6015 Apr, [facility] [place] [facility] [address] [id number] [place] [address]- 3574 18 Apr, 2014 [facility] [place] [facility] [address] [id number] [place] [address]- 0149 18 Apr, 2014 [facility] [place] [facility] [address] [id number] [place] [address]- 3063 17 Apr, 2014 [facility] [place] [facility] [address] [id number] [place] [address]- 3548 17 Apr, 2014 [facility] [place] [facility] [address] [id number] [place] [address]- 9827 Apr, [facility] [place] [facility] [address] [id number] [place] [address]- 1892 13 Apr, 2014 [facility] [place] [facility] [address] [id number] [place] [address]- 9748 11 Apr, 2014 [facility] [place] [facility] [address] [id number] [place] [address]- 9292 10 Apr, 2014 [facility] [place] [facility] [address] [id number] [place] [address]- 0921 10 Apr, 2014 [facility] [place] [facility] [address] [id number] [place] [address]- 9853 16 Mar, 2014 [facility] [place] [facility] [address] [id number], [place] [address]- 6865 16 Mar, 2014 [facility] [place] [facility] [address] [id number], [place] [address]- 1443 16 Mar, 2014 [facility] [place] [facility] [address] [id number], [place] [address]- 2578 16 Mar, 2014 [facility] [place] [facility] [address] [id number] [place] [address]- 6648 19 Jan, 2014 [facility] [place] [facility] [address] [id number] [place] [address]- 3885 19 Jan, 2014 [facility] [place] [facility] [address] [id number], [place] [address]- 5779 18 Jan, 2014 [facility] [place] [facility] [address] [id number] [address]- 9150 Jan, [facility] [place] [facility] [address] [id number] [place] [address]- 7781 Jan, [facility] [place] [facility] [address] [id number] [place] [address]- 9667 Jan, [facility] [place] [facility] [address] [id number] [place] [address]- 9577 Dec, [facility] [place] [facility] [address] [id number] [place] [address]- 9631 Dec, [facility] [place] [facility] [address] [id number] [place] [address]- 6488 Dec, [facility] [place] [facility] [address] [id number] [place] [address]- 2845 Dec, [facility] [place] [facility] [address] [id number] [place] [address]- 7117 Nov, [facility] [place] [facility] [address] [id number] [place] [address]- 5922 Nov, [facility] [place] [facility] [address] [id number] [place] [address]- 9498 Nov, [facility] [place] [facility] [address] [id number] [place] [address]- 9308 Nov, [facility] [place] [facility] [address] [id number] [place] [address]- 1108 Oct, [facility] [place] [facility] [address] [id number] [place] [address]- 0624 Oct, [facility] [place] [facility] [address] [id number] [place] [address]- 4901 Oct, [facility] [place] [facility] [address] [id number] [place] [address]- 4238 Oct, [facility] [place] [facility] [address] [id number] [place] [address]- 3859 Oct, [facility] [place] [facility] [address] [id number] [place] [address]- 7489 Oct, [facility] [place] [facility] [address] [id number] [place] [address]- 9399 Oct, [facility] [place] [facility] [address] [id number] [place] [address]- 8749 Oct, [facility] [place] [facility] [address] [id number] [place] [address]- 3635 Oct, [facility] [place] [facility] [address] [id number] [place] [address]- 3009 Oct, [facility] [place] [facility] [address] [id number] [place] [address]- 5508 September, [facility] [place] [facility] [address] [id number] [place] [address]- 5471 September, [facility] [place] [facility] [address] [id number] [place] [address]- 9284 September, [facility] [place] [facility] [address] [id number] [place] [address]- 0206 September, [facility] [place] [facility] [address] [id number] [place] [address]- 2818 September, [facility] [place] [facility] [address] [id number] [place] [address]- 0227 September, [facility] [place] [facility] [address] [id number] [place] [address]- 6963 September, [facility] [place] [facility] [address] [id number] [place] 4373 September, [facility] [place] [facility] [address] [id number] [place] [address] September, [facility] [place] [facility] [address] [id number] [place] [address] Aug, [facility] [place] [facility] [address] [id number] [place] [address] Aug, [facility] [place] [facility] [address] [id number] [place] [address] Aug, [facility] [place] [facility] [address] [id number] [place] [address] Aug, [facility] [place] [facility] [address] [id number] [place] [address] Aug, [facility] [place] [facility] [address] [id number] [place] [address] Aug, [facility] [place] [facility] [address] [id number] [place] [address] Aug, [facility] [place] [facility] [address] [id number] [place] [address] Aug, [facility] [place] [facility] [address] [id number] [place] [address] Jul, [facility] [place] [facility] [address] [id number] [place] [address] Jul, [facility] [place] [facility] [address] [id number] [place] [address] Jul, [facility] [place] [facility] [address] [id number] [place] [address] Jul, [facility] [place] [facility] [address] [id number] [place] [address] Jul, [facility] [place] [facility] [address] [id number] [place] [address] Jul, [facility] [place] [facility] [address] [id number] [place] [address]- [address] Jul, [facility] [place] [facility] [address] [id number] [place] [address] Jul, [facility] [place] [facility] [address] [id number] [place] [address]- [address]647 Jul, [facility] [place] [facility] [address] [id number] [place] [address]- [address] 17 Jul, 2013 [facility] [place] [facility] [address] [id number] [place] [address]- [address] 17 Jul, 2013 [facility] [place] [facility] [address] [id number] [place] [address]- [address] Jul, [facility] [place] [facility] [address] [id number] [place] [address]- [address] Jul, [facility] [place] [facility] [address] [id number] [place] [address]- [address] 05 Jul, 2013 [facility] [place] [facility] [address] [id number] [place] [address]- [address] Jul, [facility] [place] [facility] [address] [id number] [place] [address]- [address] 10 Jul, 2013 [facility] [place] [facility] [address] [id number] [place] [address]- [address] Jul, [facility] [place] [facility] [address] [id number] [place] [address]- [address] Jul, [facility] [place] [facility] [address] [id number] [place] [address]- [address] Jul, [facility] [place] [facility] [address] [facility] [id number] [place] [address] Jun, [facility] [place] [facility] [address] [id number] [place] [address]- [address] Jun, [facility] [place] [facility] [address] [id number] [place] [address]- [address] May, [facility] [place] [facility] [address] [id number] [place] [address]- [address] May, [facility] [place] [facility] [address] [id number] [place] [address]- [address] Apr, [facility] [place] [facility] [address] [id number] [place] [address]- [address] Apr, [facility] [place] [facility] [address] [id number] [place] [address]- [address] Apr, [facility] [place] [facility] [address] [id number] [place] [address]- 74[address] Apr, [facility] [place] [facility] [address] [id number] [place] [address]- [address] Apr, [facility] [place] [facility] [address] [id number] [place] [address]- [address] Apr, [facility] [place] [facility] [address] [id number] [place] [address]- [address] Mar, [facility] [place] [facility] [address] [id number] [place] [address] Mar, [facility] [place] [facility] [address] [id number] [place] [address]- [address] Mar, [facility] [place] [facility] [address] [id number] [address] Mar, [facility] [place] [facility] [address] [id number] [place] [address] Jan, [facility] [place] [facility] [address] [id number], [place] [address] Jan, [facility] [place] [facility] [address] [id number] [address] Jan, [facility] [place] [facility] [address] [id number], [place] [address] Dec, [facility] [place] [facility] [address] [id number] [place] [address] Dec, [facility] [place] [facility] [address] [id number][place] [address] Dec, [facility] [place] [facility] [address] [id number], [place] [address] Dec, [facility] [place] [facility] [address] [id number], [place] [address] Nov, [facility] [address] [id number] [place] [address] Nov, [facility] [place] [facility] [address] [id number] [place] [address] Nov, [facility] [place] [facility] [address] [id number] [place] [address] Oct, [facility] [place] [facility] [address] [id number] [place] [address] Oct, [facility] [place] [facility] [address] [id number] [place] [address] Oct, [facility] [place] [facility] [address] [id number] [place] [address] Oct, [facility] [address] [id number] [place] [address] Oct, [facility] [place] [facility] [address] [id number] [place] [address] Oct, [facility] [place] [facility] [address] [id number] [place] [address] September, [facility] [place] [facility] [address] [id number] [place] [address] Jul, [facility] [place] [facility] [address] [id number] [place] [address] Jul, [facility] [place] [facility] [address] [id number] [place] [address] Jul, [facility] [place] [facility] [address] [id number] [place] [address] Jul, [facility] [place] [facility] [address] [id number] [place] [address] Jul, [facility] [place] [facility] [address] [id number] [place] [address] Jul, [facility] [place] [facility] [address] [id number] [place] [address] Jun, [facility] [place] [facility] [address] [id number] [place] [address] Apr, [facility] [place] [facility] [address] [id number] [place] [address]- [address] Apr, [facility] [place] [facility] [address] [id number] [place] [address]- [address] Jan, [facility] [place] [facility] [address] [id number] [place] [address] Dec, [facility] [place] [facility] [address] [id number] [place] [address] Nov, [facility] [place] [facility] [address] [id number] [place] [address]- [address] Oct, [facility] [place] [facility] [address] [id number] [place] [address] September, [facility] [place] [facility] [address] [id number] [place] [address] September, [facility] [place] [facility] [address] [id number] [place] [address]- [address] Jul, [facility] [place] [facility] [address] [id number] [place] [address] Jul, [facility] [place] [facility] [address] [id number] [place] [address] Jul, [facility] [place] [facility] [address] [id number] [place] [address] Jul, [facility] [place] [facility] [address] [id number] [place] [address]- 28[address] Jul, [facility] [place] [facility] [address] [id number] [place] [address] 17 Jul, 2011 [facility] [place] [facility] [address] [id number], [place] [address] 13 Jul, 2011 [facility] [place] [facility] [address] [id number] [place] [address] Jul, [facility] [place] [facility] [address] [id number] [place] [address]- [address] 08 Jul, 2011 [facility] [place] [facility] [address] [facility] [id number] [place] [address]- [address] Jul, [facility] [place] [facility] [address] [id number] [place] [address] Jun, [facility] [place] [facility] [address] [id number] [place] [address] May, [facility] [place] [facility] [address] [facility] [id number] [place] [address] May, [facility] [place] [facility] [address] [facility] [id number] [place] [address] May, [facility] [place] [facility] [address] [facility] [id number] [place] [address]- [address] Apr, [facility] [place] [facility] [address] [facility] [id number] [place] [address] Apr, [facility] [place] [facility] [address] [facility] [id number] [place] [address] Mar, [facility] [place] [facility] [address] [facility] [id number], [place] [address] Mar, [facility] [place] [facility] [address] [facility] [id number], [place] [address] Mar, [facility] [place] [facility] [address] [facility] [id number][place] [address] Mar, [facility] [place] [facility] [address] [facility] [id number], [place] [address] 10 Mar, 2011 [facility] [place] [facility] [address] [facility] [id number], [place] [address] September, [facility] [place] [facility] [address] [facility] [id number] [place] [address] Mar, [facility] [address] [facility] [id number], [place] [address] Dec, [facility] [address] [facility] [id number], [place] [address] May, [facility] [address] [facility] [id number] [address] May, IMMUNIZATIONS No Known Immunizations SOCIAL HISTORY Never Assessed REASON FOR VISIT Controlled Med Refill 10/12/17 PLAN OF CARE VITAL SIGNS MEDICATIONS Medication Instructions Dosage Frequency Start Date End Date Duration Status Hydrocodone-Acetaminophen 10-325 MG Orally 3 times a day 1 tablet as needed 8h September, 28 days Active RESULTS No Results PROCEDURES [...]
--- OUTSIDE RECORDS SUMMARY | 2018-03-04 18:19 | XMS REPORT ---
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 Name Role Phone CEDRICK BARCENAS Unavailable PROBLEMS Type Condition ICD9-CM Code PNB11-KA Code Onset Dates Condition Status SNOMED Code Problem jail 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.891 Active 560144456 Problem Depression, unspecified depression type F32.9 Active 15167433 Problem Chronic pain syndrome G89.4 Active 018038144 Problem Chronic tension-type headache, intractable G44.221 Active 292647464 Problem Generalized anxiety disorder F41.1 Active 96621825 Problem Mixed hyperlipidemia E78.2 Active 082656702 Problem Hypothyroidism, unspecified E03.9 Active 86919374 Problem Major depressive disorder, recurrent episode, moderate F33.1 Active 036689128 Problem Anxiety F41.9 Active 36855140 ALLERGIES Substance Reaction Event Type Date Status Glucophage 1,000 Mg Tablet making pt feel funny Non Drug Allergy Aug, Active ENCOUNTERS Encounter Location Date Diagnosis [facility] [place] [address] [address] Dec, [facility] [place] [id number] [place] [address] 05606- 5105 Oct, [facility] [place] [id number] [place] [address] 16412- 5305 Oct, [facility] [place] [id number] [place] [address] 81143- 3750 Oct, [facility] [place] [id number] [place] [address] 58248- 9419 September, Chronic pain syndrome G89.4 [facility] [place] [id number] [place] [address] 75809- 6741 September, Depression, unspecified depression type F32.9 and Cervicalgia M54.2 [facility] [id number] [place] [address] 10589- 3822 September, Chronic pain syndrome G89.4 [facility] [id number] [place] [address] 42424- 7206 Aug, Red stool R19.5 [facility] [address] 72257- 7066 Aug, Depression, unspecified depression type F32.9 ; Chronic pain syndrome G89.4 ; Chronic tension-type headache, intractable G44.221 ; Red stool R19.5 ; Hypothyroidism, unspecified E03.9 and Mixed hyperlipidemia E78.2 [facility] [id number] [place] [address] 98456- 7520 Jul, Major depressive disorder, recurrent episode, moderate F33.1 [place] [address] 28088- 5757 Jul, [facility] [address] 64495- 7781 Jul, Hypothyroidism, unspecified E03.9 [facility] [id number] [place] [address] 44185- 9067 Jul, Hypothyroidism, unspecified E03.9 [facility] [address] 14000- 7978 Jul, Mixed hyperlipidemia E78.2 [place] [address] 87662- 2418 Jul, Mixed hyperlipidemia E78.2 [facility] [address] 60028 -0161 Jul, Bronchitis J40 ; Cough R05 and Wheezing R06.2 [place] [address] 41774- 4458 Jul, Major depressive disorder, recurrent episode, moderate F33.1 and Generalized anxiety disorder F41.1 [facility] [place] [id number] [place] [address] 14662- 8860 Jul, [facility] [address] 58484- 2647 Jul, Major depressive disorder, recurrent episode, moderate F33.1 and Generalized anxiety disorder F41.1 [place] [address] 30319- 0662 Jul, Generalized anxiety disorder F41.1 and Major depressive disorder, recurrent episode, moderate F33.1 [place] [address] 03287- 0860 Jul, Mixed hyperlipidemia E78.2 [place] [address] 43109- 4295 Jun, Depression, unspecified depression type F32.9 ; Cervicalgia M54.2 ; Trigger point M79.1 ; Hypothyroidism, unspecified E03.9 ; Screening, lipid Z13.220 and Mixed hyperlipidemia E78.2 [place] [address] 91668- 8254 Jun, [facility] [facility] [address] 94587- 5331 May, [facility] [address] 17984- 0902 Apr, Acute bronchitis due to other specified organisms J20.8 and Tobacco abuse counseling Z71.6 [facility] [id number] [place] [address] 33612- 2971 Mar, Depression, unspecified depression type F32.9 [facility] [id number] [place] [address] 56680- 7658 Jan, Chronic pain syndrome G89.4 [place] [address] 97145- 2722 Nov, Anxiety F41.9 ; Depression, unspecified depression type F32.9 and Chronic pain syndrome G89.4 [facility] [place] [id number] [place] [address] 57781- 6380 Oct, Anxiety F41.9 and Hypothyroidism, unspecified E03.9 [facility] [id number] [place] [address] 46967 -8080 Oct, Left foot pain M79.672 and Contusion of left foot, 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 S90.32XA [facility] [place] [id number] [place] [address] 97837- 1982 Oct, [facility] [place] [address] 75505- 3200 September, Cervicalgia M54.2 [facility] [place] [id number] [place] [address] 48386- 1054 September, [facility] [place] [id number] [place] [address] 95033- 8221 Aug, Cervicalgia M54.2 [facility] [place] [id number] [place] [address] 73043- 7150 Aug, Cervicalgia M54.2 and Left arm numbness R20.0 [facility] [place] [id number] [place] [address] 55683- 6295 Aug, [facility] [place] [id number] [place] [address] 46642- 2587 Aug, [facility] [place] [id number] [place] [address] 62410- 8878 Jul, [facility] [place] [address] 35642- 4840 Jul, [facility] [place] [id number] [place] [address] 85105- 3093 Jul, [facility] [place] [address] 44623- 8054 Jul, Acute midline low back pain without sciatica M54.5 [facility] [place] [id number] [place] [address] 61981- 9477 Jun, Acute midline low back pain without sciatica M54.5 [facility] [place] [id number] [place] [address] 22447- 6011 Jun, Chronic pain syndrome G89.4 and Muscle spasm M62.838 [facility] [place] [id number] [place] [address] 72818- 2098 Jun, [facility] [place] [id number] [place] [address] 66573- 5791 Jun, Acute midline low back pain without sciatica M54.5 [facility] [place] [id number] [place] [address] 49717- 5239 Jun, [facility] [place] [address] 31972- 4099 May, [facility] [place] [id number] [place] [address] 82614- 5926 May, Hypothyroidism, unspecified E03.9 ; Chronic pain syndrome G89.4 ; Hyperglycemia R73.9 ; Encounter for immunization Z23 and Mixed hyperlipidemia E78.2 [facility] [place] [id number] [place] [address] 65310- 8401 Apr, Fatigue 780.79 [facility] [place] [id number] [place] [address] 47797- 2172 Apr, Chronic pain syndrome G89.4 [facility] [place] [id number] [place] [address] 06056- 4878 Mar, [facility] [place] [address] 59912- 8816 Mar, Chronic pain syndrome G89.4 [facility] [place] [id number] [place] [address] 94601- 3159 Jan, [facility] [place] [id number] [address]- 1540 Dec, [facility] [place] [id number] [place] [address] 72754- 3060 Dec, Chronic pain syndrome G89.4 [facility] [place] [id number] [place] [address] 48709- 7209 Dec, Trigger point M79.2 [facility] [place] [id number] [place] [address] 74253- 3267 Nov, Chronic pain syndrome G89.4 [facility] [place] [id number] [place] [address] 46626- 1062 Oct, Chronic pain syndrome G89.4 [facility] [place] [id number] [place] [address] 37859- 4093 Oct, Irritant contact dermatitis due to detergent L24.0 [place] [id number] [place] [address] 82438- 8508 September, Hypothyroidism, unspecified E03.9 and Depression, unspecified depression type F32.9 [place] [id number] [place] [address] 68987- 8317 September, Chronic pain syndrome G89.4 [facility] [place] [id number] [place] [address] 29962- 3096 Aug, [facility] [place] [id number] [place] [address] 09119- 4514 Aug, Trigger point M79.2 [facility] [place] [id number] [place] [address] 81054- 4862 Jul, Chronic pain syndrome G89.4 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 [facility] [place] [address] [place] [address] 98371- 3060 Jul, Chronic pain syndrome G89.4 and jail 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.891 [facility] [place] [id number] [address]- 9301 Jul, [facility] [place] [address] [address]- 1530 Jul, [facility] [place] [address] 7958 Jun, [facility] [place] [address] [address]- 3744 May, [facility] [place] [address] [address]- 9109 May, [facility] [place] [id number] [place] [address] 60640- 6992 May, [facility] [place] [address] [address]- 8421 May, Pneumonia, organism unspecified, unspecified laterality, unspecified part of lung J18.9 [facility] [place] [address] [address]- 1565 May, Pneumonia, organism unspecified, unspecified laterality, unspecified part of lung J18.9 [facility] [place] [address] [address]- 2864 Apr, [facility] [place] [address] [address]- 1525 Apr, [facility] [place] [address] [address]- 0113 Apr, [facility] [place] [id number] [address]- 8166 Apr, [facility] [place] [address] [address]- 8374 Apr, [facility] [place] [address] [address]- 3631 Apr, Epigastric pain R10.13 [facility] [place] [id number] [place] [address] 12539- 5737 Mar, Tinea pedis B35.3 and Contact dermatitis and eczema due to detergents L24.0 [facility] [place] [id number] [place] [address] [id number]- 8575 Mar, [facility] [place] [id number] [place] [address] 292080- 3280 Jan, [facility] [place] [id number] [place] [address] 881532- 7343 Jan, [facility] [place] [id number] [place] [address] 672923- 1685 Jan, [facility] [place] [id number] [place] [address] 08195- 1846 Dec, [facility] [place] [id number] [place] [address] 82826- 8448 Nov, [facility] [place] [id number] [place] [address] 20421- 9567 Nov, Fatigue 780.79 [place] [id number] [place] [address] 73058- 9334 Nov, [place] [id number] [place] [address] 77368- 8636 Nov, Unspecified myalgia and myositis 729.1 [place] [id number] [place] [address] 84707- 7505 Nov, Hypercalcemia 275.42 [place] [id number] [place] [address] 284833- 4460 Nov, Fatigue 780.79 ; Bradycardia 427.89 ; Chronic pain 338.29 and Family history of diabetes mellitus V18.0 [facility] [place] [id number] [place] [address] 612404- 7261 Nov, Fatigue 780.79 ; Chronic pain 338.29 ; Family history of diabetes mellitus V18.0 ; Bradycardia 427.89 ; Hypothyroid 244.9 and Anxiety 300.00 [facility] [address] [id number] [place] [address]- 5785 Oct, [facility] [place] [facility] [address] [id number] [place] [address]- 4675 September, [facility] [place] [facility] [address] [id number] [place] [address]- 1744 Aug, [facility] [place] [facility] [address] [id number] [place] [address]- 6263 Aug, [facility] [place] [facility] [address] [id number] [place] [address]- 3966 Aug, [facility] [place] [facility] [address] [id number] [place] [address]- 8050 Jul, [facility] [place] [facility] [address] [facility] [id number] [place] [address]- 8331 Jul, [facility] [place] [facility] [address] [id number] [place] [address]- 1158 Jul, [facility] [place] [facility] [address] [id number] [place] [address]- 9999 Jul, [facility] [place] [facility] [address] [facility] [id number] [address]- 2582 Jun, [facility] [place] [facility] [address] [id number] [place] [address]- 4956 Jun, [facility] [place] [facility] [address] [id number] [address]- 1742 Jun, [facility] [place] [facility] [address] [id number] [place] [address]- 7684 Jun, [facility] [place] [facility] [address] [id number] [place] [address]- 0070 Jun, [facility] [place] [facility] [address] [facility] [id number] 6975 Jun, [facility] [place] [facility] [address] [id number] [address]- 2978 May, [facility] [place] [facility] [address] [id number] [place] [address]- 0557 May, [facility] [place] [facility] [address] [id number] [place] [address]- 7816 May, [facility] [place] [facility] [address] [id number] [place] [address]- 8365 May, [facility] [place] [facility] [address] [id number] [place] [address]- 0222 15 May, 2014 [facility] [place] [facility] [address] [id number] [place] [address]- 1119 15 May, 2014 [facility] [place] [facility] [address] [id number] [place] [address]- 9148 May, [facility] [place] [facility] [address] [id number] [place] [address]- 1401 May, [facility] [place] [facility] [address] [id number] [place] [address]- 2038 May, [facility] [place] [facility] [address] [id number] [place] [address]- 1307 May, [facility] [place] [facility] [address] [id number] [place] [address]- 8001 Apr, [facility] [place] [facility] [address] [id number] [place] [address]- 0261 Apr, [facility] [place] [facility] [address] [id number] [place] [address]- 6634 Apr, [facility] [place] [facility] [address] [id number] [place] [address]- 0228 Apr, [facility] [place] [facility] [address] [id number] [place] [address]- 5868 Apr, [facility] [place] [facility] [address] [id number] [place] [address]- 2179 Apr, [facility] [place] [facility] [address] [id number] [place] [address]- 2102 18 Apr, 2014 [facility] [place] [facility] [address] [id number] [place] [address]- 5942 18 Apr, 2014 [facility] [place] [facility] [address] [id number] [place] [address]- 3180 17 Apr, 2014 [facility] [place] [facility] [address] [id number] [place] [address]- 1455 17 Apr, 2014 [facility] [place] [facility] [address] [id number] [place] [address]- 5387 13 Apr, 2014 [facility] [place] [facility] [address] [id number] [place] [address]- 9469 13 Apr, 2014 [facility] [place] [facility] [address] [id number] [place] [address]- 5443 11 Apr, 2014 [facility] [place] [facility] [address] [id number] [place] [address]- 0009 10 Apr, 2014 [facility] [place] [facility] [address] [id number] [place] [address]- 4039 10 Apr, 2014 [facility] [place] [facility] [address] [id number] [place] [address]- 4889 16 Mar, 2014 [facility] [place] [facility] [address] [id number] [place] [address]- 5746 16 Mar, 2014 [facility] [place] [facility] [address] [id number] [place] [address]- 5822 16 Mar, 2014 [facility] [place] [facility] [address] [id number] [place] [address]- 0065 16 Mar, 2014 [facility] [place] [facility] [address] [id number] [place] [address]- 2981 19 Jan, 2014 [facility] [place] [facility] [address] [id number] [place] [address]- 9143 19 Jan, 2014 [facility] [place] [facility] [address] [id number] [place] [address]- 5435 Jan, [facility] [place] [facility] [address] [id number] [place] [address]- 5806 Jan, [facility] [place] [facility] [address] [id number] [place] [address]- 8475 Jan, [facility] [place] [facility] [address] [id number] [place] [address]- 8965 Jan, [facility] [place] [facility] [address] [id number] [place] [address]- 5918 Dec, [facility] [place] [facility] [address] [id number] [place] [address]- 7148 Dec, [facility] [place] [facility] [address] [id number] [place] [address]- 9383 Dec, [facility] [place] [facility] [address] [id number] [place] [address]- 1681 Dec, [facility] [place] [facility] [address] [id number] [place] [address]- 6174 Nov, [facility] [place] [facility] [address] [id number] [place] [address]- 3974 Nov, [facility] [place] [facility] [address] [id number] [place] [address]- 3115 Nov, [facility] [place] [facility] [address] [id number] [place] [address]- 6316 Nov, [facility] [place] [facility] [address] [id number] [place] [address]- 6855 Oct, [facility] [place] [facility] [address] [id number] [place] [address]- 7865 Oct, [facility] [place] [facility] [address] [id number] [place] [address]- 5509 Oct, [facility] [place] [facility] [address] [id number] [place] [address]- 4413 Oct, [facility] [place] [facility] [address] [id number] [place] [address]- 7609 Oct, [facility] [place] [facility] [address] [id number] [place] [address]- 5210 Oct, [facility] [place] [facility] [address] [id number] [place] [address]- 1140 Oct, [facility] [place] [facility] [address] [id number] [place] [address]- 7078 Oct, [facility] [place] [facility] [address] [id number] [place] [address]- 2832 Oct, [facility] [place] [facility] [address] [id number] [place] [address]- 2546 Oct, [facility] [place] [facility] [address] [id number] [place] [address]- 7223 September, [facility] [place] [facility] [address] [id number] [place] [address] September, [facility] [place] [facility] [address] [id number] [place] [address] September, [facility] [place] [facility] [address] [id number] [place] [address] September, [facility] [place] [facility] [address] [id number] [place] [address] September, [facility] [place] [facility] [address] [id number] [place] [address] September, [facility] [place] [facility] [address] [id number] [place] [address] September, [facility] [place] [facility] [address] [id number] [place] [address] September, [facility] [place] [facility] [address] [id number] [place] [address] September, [facility] [place] [facility] [address] [id number] [place] [address] Aug, [facility] [place] [facility] [address] [id number] [place] [address] Aug, [facility] [place] [facility] [address] [id number] [place] [address] Aug, [facility] [place] [facility] [address] [id number] [place] [address] Aug, [facility] [place] [facility] [address] [id number] [place] [address] Aug, [facility] [place] [facility] [address] [id number] [place] [address] Aug, [facility] [place] [facility] [address] [id number] [place] [address] Aug, [facility] [place] [facility] [address] [id number] [place] [address] Aug, [facility] [place] [facility] [address] [id number] [place] [address] Jul, [facility] [place] [facility] [address] [id number] [place] [address] Jul, [facility] [place] [facility] [address] [id number] [place] [address] Jul, [facility] [place] [facility] [address] [id number] [place] [address] Jul, [facility] [place] [facility] [address] [id number] [place] [address]- [address] 24 Jul, 2013 [facility] [place] [facility] [address] [id number] [place] [address] Jul, [facility] [place] [facility] [address] [id number] [place] [address] Jul, [facility] [place] [facility] [address] [id number] [place] [address] 18 Jul, 2013 [facility] [place] [facility] [address] [id number] [place] [address]- [address] 18 Jul, 2013 [facility] [place] [facility] [address] [id number] [place] [address]- [address] 17 Jul, 2013 [facility] [place] [facility] [address] [id number] [place] [address]- [address] 17 Jul, 2013 [facility] [place] [facility] [address] [facility] [id number] [place] [address] Jul, [facility] [place] [facility] [address] [id number] [place] [address] 13 Jul, 2013 [facility] [place] [facility] [address] [id number] [place] [address] 05 Jul, 2013 [facility] [place] [facility] [address] [facility] [id number] [place] [address] 05 Jul, 2013 [facility] [place] [facility] [address] [facility] [id number] [place] [address] Jul, [facility] [place] [facility] [address] [id number] [place] [address] Jul, [facility] [place] [facility] [address] [id number] [place] [address]- [address] 05 Jul, 2013 [facility] [place] [facility] [address] [facility] [id number] [place] [address] 05 Jul, 2013 [facility] [place] [facility] [address] [facility] [id number] [place] [address] Jun, [facility] [place] [facility] [address] [id number] [place] [address] Jun, [facility] [place] [facility] [address] [id number] [place] [address] May, [facility] [place] [facility] [address] [id number] [place] [address] May, [facility] [place] [facility] [address] [facility] [id number] [place] [address]- 3738 Apr, [facility] [place] [facility] [address] [id number] [place] [address] Apr, [facility] [place] [facility] [address] [id number] [place] [address] Apr, [facility] [place] [facility] [address] [id number] [place] [address] Apr, [facility] [place] [facility] [address] [id number] [place] [address] Apr, [facility] [place] [facility] [address] [id number] [place] [address] Apr, [facility] [place] [facility] [address] [id number] [place] [address] Mar, [facility] [place] [facility] [address] [id number] [place] [address] Mar, [facility] [place] [facility] [address] [id number] [place] [address] Mar, [facility] [place] [facility] [address] [id number] [place] [address] Mar, [facility] [place] [facility] [address] [id number] [place] [address] Jan, [facility] [place] [facility] [address] [id number] [place] [address] Jan, [facility] [place] [facility] [address] [id number] [place] [address] Jan, [facility] [place] [facility] [address] [id number] [place] [address] Dec, [facility] [place] [facility] [address] [id number] [place] [address] Dec, [facility] [place] [facility] [address] [id number] [place] [address] Dec, [facility] [place] [facility] [address] [id number] [place] [address] Dec, [facility] [place] [facility] [address] [id number] [place] [address] Nov, [facility] [place] [facility] [address] [id number] [place] [address] Nov, [facility] [place] [facility] [address] [id number] [place] [address] Nov, [facility] [place] [facility] [address] [id number] [place] [address] Oct, [facility] [place] [facility] [address] [id number] [place] [address] Oct, [facility] [place] [facility] [address] [id number] [place] [address] Oct, [facility] [place] [facility] [address] [id number] [place] [address] 8860 Oct, [facility] [place] [facility] [address] [id number] [place] [address] Oct, [facility] [place] [facility] [address] [id number] [place] [address]65 Oct, [facility] [place] [facility] [address] [id number] [place] [address] September, [facility] [place] [facility] [address] [id number] [place] [address] Jul, [facility] [place] [facility] [address] [id number] [place] [address] 76[address] Jul, [facility] [place] [facility] [address] [id number] [place] [address] Jul, [facility] [place] [facility] [address] [id number] [place] [address]166 Jul, [facility] [place] [facility] [address] [id number] [place] [address] Jul, [facility] [place] [facility] [address] [id number] [place] [address] 05 Jul, 2012 [facility] [address] [id number] [place] [address] Jun, [facility] [place] [facility] [address] [id number] [place] [address] 6975 Apr, [facility] [place] [facility] [address] [id number] [place] [address] 47[address] Apr, [facility] [place] [facility] [address] [id number] [place] [address] Jan, [facility] [place] [facility] [address] [id number] [place] [address] Dec, [facility] [place] [facility] [address] [id number] [place] [address]376 Nov, [facility] [place] [facility] [address] [id number] [place] [address] 6198 Oct, [facility] [place] [facility] [address] [id number] [place] [address] September, [facility] [place] [facility] [address] [id number] [place] [address] September, [facility] [place] [facility] [address] [id number] [place] [address]- 1477 Jul, [facility] [place] [facility] [address] [id number] [place] [address] Jul, [facility] [place] [facility] [address] [id number] [place] [address] 58[address] Jul, [facility] [place] [facility] [address] [id number] [place] [address] 8293 Jul, [facility] [place] [facility] [address] [id number] [place] [address]- 0815 Jul, [facility] [place] [facility] [address] [id number] [place] [address]- 3100 Jul, [facility] [place] [facility] [address] [id number] [place] [address]- [address] 13 Jul, 2011 [facility] [place] [facility] [address] [id number] [place] [address] Jul, [facility] [place] [facility] [address] [id number] [place] [address]- [address] 08 Jul, 2011 [facility] [place] [facility] [address] [id number] [place] [address] 37[address] Jul, [facility] [place] [facility] [address] [id number] [place] [address] 8155 Jun, [facility] [place] [facility] [address] [id number] [place] [address]- 45[address] May, [facility] [place] [facility] [address] [facility] [id number] [place] [address]166 May, [facility] [place] [facility] [address] [id number] [place] [address] May, [facility] [place] [facility] [address] [facility] [id number] [place] [address] Apr, [facility] [place] [facility] [address] [facility] [id number] [place] [address] Apr, [facility] [place] [facility] [address] [id number] [place] [address] 20 Mar, 2011 [facility] [place] [facility] [address] [id number] [place] [address] 13 Mar, 2011 [facility] [place] [facility] [address] [id number] [place] [address] Mar, [facility] [place] [facility] [address] [id number] [place] [address] 13 Mar, 2011 [facility] [place] [facility] [address] [facility] [id number] [place] [address] 10 Mar, 2011 [facility] [place] [facility] [address] [facility] [id number] [place] [address] September, [facility] [place] [address] [facility] [id number] [place] [address] Mar, [facility] [place] [address] [facility] [id number] [place] [address] Dec, [facility] [place] [address] [facility] [id number] [place] [address] May, [facility] [place] [address] [facility] [id number] [place] [address] May, IMMUNIZATIONS No Known Immunizations SOCIAL HISTORY Never Assessed REASON FOR VISIT blood in stool and filling the toliet that has been noticed since thursday- Samanta HINKLE PLAN OF CARE Activity Details Follow Up 4 Weeks Reason:depression VITAL SIGNS Height 63 in 2017-09-14 Weight 169.1 lbs 2017-09-14 Temperature 98.1 degrees Fahrenheit 2017-09-14 Heart Rate 66 bpm 2017-09-14 Respiratory Rate 20 2017-09-14 Oximetry 98 % 2017-09-14 BMI 29.95 kg/m2 2017-09-14 Blood pressure systolic 120 mmHg 2017-09-14 Blood pressure diastolic 82 mmHg 2017-09-14 MEDICATIONS Medication Instructions Dosage Frequency Start Date End Date Duration Status Effexor XR 37.5 MG Orally Once a day 1 capsule with food 24h 7 days Not-Taking Neurontin 600 MG Orally 3 times a [...] day 3 ml 6h May, 30 days Not-Taking Oxygen Active Lipitor 40 mg Orally Once a day 1 tablet 24h Nov, 90 days Active Levothyroxine Sodium 125 mcg Orally Once a day 1 tablet 24h 90 days Active Hydrocodone-Acetaminophen 10-325 MG Orally 3 times a day 1 tablet as needed 8h Aug, September, 28 days Active Albuterol Sulfate (2.5 MG/3ML) 0.083% Inhalation Three times a day 3 ml as needed 8h Jul, Active Cheratussin AC 100-10 MG/5ML Orally every 4 hrs 5 ml 4h Jul, Active RESULTS No Results PROCEDURES Procedure Date Ordered Result Body Site DRUG TEST PRSMV CHEM ANLYZR September 14, 2017 DRUG SCREEN AMPHETAMINES 06/02September 14, 2017 INSTRUCTIONS MEDICATIONS ADMINISTERED No Known Medications MEDICAL (GENERAL) HISTORY Type Description Date Medical History hypothyroidism Medical History anxiety Medical History chronic back pain Medical History hypercholesterolemia Medical History bronchitis Surgical History hysterectomy 2010 Surgical History revision of the mesh sling 2011 Surgical History cholecystectomy Surgical History tonsilectomy Surgical History L knee tumor removal Hospitalization History surgeries
--- OUTSIDE RECORDS SUMMARY | 2018-03-04 18:19 | XMS REPORT ---
Author Author CEDRICK BARCENAS Organization [facility] Address [address] [place] [address] Care Team Providers Care Lab Tech Name Role Phone CEDRICK BARCENAS Unavailable PROBLEMS Type Condition ICD9-CM Code BKT84-ID Code Onset Dates Condition Status SNOMED Code Problem halfway 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.891 Active 782441837 Problem Depression, unspecified depression type F32.9 Active 76707886 Problem Chronic pain syndrome G89.4 Active 342705923 Problem Chronic tension-type headache, intractable G44.221 Active 950181298 Problem Generalized anxiety disorder F41.1 Active 81197422 Problem Mixed hyperlipidemia E78.2 Active 065840603 Problem Hypothyroidism, unspecified E03.9 Active 60699010 Problem Major depressive disorder, recurrent episode, moderate F33.1 Active 886293420 Problem Anxiety F41.9 Active 40779188 ALLERGIES No Information ENCOUNTERS Encounter Location Date Diagnosis [facility] [id number] [place] [address] 86425- 6666 Dec, [facility] [id number] [place] [address] 02770- 8530 Oct, [facility] [id number] [place] [address] 31099- 5650 Oct, [facility] [id number] [place] [address] 03881- 6677 Oct, [facility] [address] 79770- 2376 September, Chronic pain syndrome G89.4 [facility] [id number] [place] [address] 44448- 5773 September, Depression, unspecified depression type F32.9 and Cervicalgia M54.2 [facility] [id number] [place] [address] 73907- 1052 September, Chronic pain syndrome G89.4 [facility] [id number] [place] [address] 16827- 3180 Aug, Red stool R19.5 [facility] [id number] [place] [address] 84597- 6297 Aug, Depression, unspecified depression type F32.9 ; Chronic pain syndrome G89.4 ; Chronic tension-type headache, intractable G44.221 ; Red stool R19.5 ; Hypothyroidism, unspecified E03.9 and Mixed hyperlipidemia E78.2 [facility] [id number] [place] [address] 36356- 7897 Jul, Major depressive disorder, recurrent episode, moderate F33.1 [facility] [id number] [place] [address] 60705- 6406 Jul, [facility] [address] 52620- 0276 Jul, Hypothyroidism, unspecified E03.9 [facility] [id number] [place] [address] 21191- 1576 Jul, Hypothyroidism, unspecified E03.9 [facility] [id number] [place] [address] 77839- 4625 Jul, Mixed hyperlipidemia E78.2 [facility] [id number] [place] [address] 72078- 2984 Jul, Mixed hyperlipidemia E78.2 [facility] [id number] [place] [address] 46418 -2995 08 Jul, 2017 Bronchitis J40 ; Cough R05 and Wheezing R06.2 [facility] [id number] [place] [address] 37876- 1767 07 Jul, 2017 Major depressive disorder, recurrent episode, moderate F33.1 and Generalized anxiety disorder F41.1 [facility] [id number] [place] [address] 43310- 6271 Jul, [facility] [address] 44056- 4357 Jul, Major depressive disorder, recurrent episode, moderate F33.1 and Generalized anxiety disorder F41.1 [facility] [address] 26118- 0596 Jul, Generalized anxiety disorder F41.1 and Major depressive disorder, recurrent episode, moderate F33.1 [facility] [address] 02660- 1531 Jul, Mixed hyperlipidemia E78.2 [facility] [address] 73934- 5560 Jun, Depression, unspecified depression type F32.9 ; Cervicalgia M54.2 ; Trigger point M79.1 ; Hypothyroidism, unspecified E03.9 ; Screening, lipid Z13.220 and Mixed hyperlipidemia E78.2 [facility] [id number] [place] [address] 83804- 4121 Jun, [facility] [address] 59734- 8250 May, [facility] [address] 22524- 1210 Apr, Acute bronchitis due to other specified organisms J20.8 and Tobacco abuse counseling Z71.6 [facility] [id number] [place] [address] 73164- 7134 Mar, Depression, unspecified depression type F32.9 [facility] [id number] [place] [address] 37670- 9921 Jan, Chronic pain syndrome G89.4 [facility] [id number] [place] [address] 06711- 6414 Nov, Anxiety F41.9 ; Depression, unspecified depression type F32.9 and Chronic pain syndrome G89.4 [facility] [id number] [place] [address] 94229- 2494 Oct, Anxiety F41.9 and Hypothyroidism, unspecified E03.9 [facility] [id number] [place] [address] 87808 -3234 Oct, Left foot pain M79.672 and Contusion of left foot, 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 S90.32XA [facility] [address] 34357- 8586 Oct, [facility] [address] 18419- 7667 September, Cervicalgia M54.2 [facility] [address] 31334- 3400 September, [facility] [address] 34902- 1517 Aug, Cervicalgia M54.2 [facility] [id number] [place] [address] 89996- 5453 Aug, Cervicalgia M54.2 and Left arm numbness R20.0 [facility] [id number] [place] [address] 30732- 7102 Aug, [facility] [id number] [place] [address] 61952- 4098 Aug, [facility] [id number] [place] [address] 21563- 4598 Jul, [facility] [id number] [place] [address] 09239- 3005 Jul, [facility] [address] 95662- 6581 Jul, [facility] [id number] [place] [address] 91334- 0977 Jul, Acute midline low back pain without sciatica M54.5 [facility] [id number] [place] [address] 92014- 0064 Jun, Acute midline low back pain without sciatica M54.5 [facility] [id number] [place] [address] 78094- 4700 Jun, Chronic pain syndrome G89.4 and Muscle spasm M62.838 [facility] [id number] [place] [address] 88895- 3279 Jun, [facility] [id number] [place] [address] 58890- 0514 Jun, Acute midline low back pain without sciatica M54.5 [facility] [address] 34101- 9090 Jun, [facility] [id number] [place] [address] 05656- 3572 May, [facility] [address] 23241- 0640 May, Hypothyroidism, unspecified E03.9 ; Chronic pain syndrome G89.4 ; Hyperglycemia R73.9 ; Encounter for immunization Z23 and Mixed hyperlipidemia E78.2 [facility] [id number] [place] [address] 84234- 5009 Apr, Fatigue 780.79 [facility] [id number] [place] [address] 42118- 4453 Apr, Chronic pain syndrome G89.4 [facility] [id number] [place] [address] 87761- 0334 Mar, [facility] [id number] [place] [address] 85422- 2633 Mar, Chronic pain syndrome G89.4 [facility] [id number] [place] [address] 75175- 8305 Jan, [facility] [id number] [place] [address] 19930- 7375 Dec, [facility] [address] [place] [address] 48475- 4590 Dec, Chronic pain syndrome G89.4 [facility] [id number] [place] [address] 74657- 6106 Dec, Trigger point M79.2 [facility] [id number] [place] [address] 86839- 1695 Nov, Chronic pain syndrome G89.4 [facility] [id number] [place] [address] 23316- 8153 Oct, Chronic pain syndrome G89.4 [facility] [id number] [place] [address] 04737- 1958 Oct, Irritant contact dermatitis due to detergent L24.0 [facility] [id number] [place] [address] 72336- 3850 September, Hypothyroidism, unspecified E03.9 and Depression, unspecified depression type F32.9 [facility] [id number] [place] [address] 38826- 2390 September, Chronic pain syndrome G89.4 [facility] [id number] [place] [address] 50502- 1500 Aug, [facility] [id number] [place] [address] 86145- 1691 Aug, Trigger point M79.2 [facility] [id number] [place] [address] 46450- 8428 Jul, Chronic pain syndrome G89.4 and halfway 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.891 [facility] [id number] [place] [address] 69228- 1474 Jul, Chronic pain syndrome G89.4 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 [facility] [id number] [place] [address] 85655- 5684 Jul, [facility] [address] [address]- 1704 Jul, [facility] [address] 1352 Jun, [facility] [address] [address]- 4656 May, [facility] [address] [place] [address] 392261- 1648 May, [facility] [address] [address]- 2727 May, [facility] [address] [place] [address] 966006- 9710 May, Pneumonia, organism unspecified, unspecified laterality, unspecified part of lung J18.9 [facility] [address] [address]- 6268 May, Pneumonia, organism unspecified, unspecified laterality, unspecified part of lung J18.9 [facility] [address] [address]- 9194 Apr, [facility] [address] [address]- 8368 Apr, [facility] [address] [address]- 9207 Apr, [facility] [address] [address]- 8402 Apr, [facility] [id number] [address]- 0281 Apr, [facility] [address] [address]- 1531 Apr, Epigastric pain R10.13 [facility] [id number] [address]- 8943 Mar, Tinea pedis B35.3 and Contact dermatitis and eczema due to detergents L24.0 [facility] [address] [place] [address] 89571- 0194 Mar, [facility] [id number] [place] [address] 45603- 5851 Jan, [facility] [id number] [place] [address] 36661- 9331 Jan, [facility] [id number] [place] [address] 082152- 9288 Jan, [facility] [id number] [place] [address] 20153- 1993 Dec, [facility] [id number] [place] [address] 14581- 9481 Nov, [facility] [id number] [place] [address] 36473- 7817 Nov, Fatigue 780.79 [facility] [id number] [place] [address] 84926- 5558 Nov, [facility] [id number] [place] [address] 29150- 5086 Nov, Unspecified myalgia and myositis 729.1 [facility] [id number] [place] [address] 69496- 1363 Nov, Hypercalcemia 275.42 [facility] [id number] [place] [address] 60419- 6960 Nov, Fatigue 780.79 ; Bradycardia 427.89 ; Chronic pain 338.29 and Family history of diabetes mellitus V18.0 [facility] [id number] [place] [address] 01233- 5572 Nov, Fatigue 780.79 ; Chronic pain 338.29 ; Family history of diabetes mellitus V18.0 ; Bradycardia 427.89 ; Hypothyroid 244.9 and Anxiety 300.00 [facility] [id number] [place] [address] 17701- 9228 Oct, [facility] [place] [facility] [address] [id number] [place] [address]- 6351 September, [facility] [place] [facility] [address] [id number] [place] [address]- 5799 Aug, [facility] [place] [facility] [address] [id number] [place] [address]- 0645 Aug, [facility] [place] [facility] [address] [id number] [place] [address]- 0161 Aug, [facility] [place] [facility] [address] [id number] [place] [address]- 7809 Jul, [facility] [place] [facility] [address] [id number] [place] [address]- 4058 Jul, [facility] [place] [facility] [address] [id number] [place] [address]- 7741 Jul, [facility] [place] [facility] [address] [id number] [place] [address]- 7882 Jul, [facility] [place] [facility] [address] [id number] [place] [address]- 7127 Jun, [facility] [place] [facility] [address] [id number] [place] [address]- 6172 Jun, [facility] [place] [facility] [address] [id number] [address]- 1056 Jun, [facility] [place] [facility] [address] [id number] [address]- 6028 Jun, [facility] [place] [facility] [address] [id number] [place] [address]- 3645 Jun, [facility] [place] [facility] [address] [facility] [id number] [place] [address]- 0970 Jun, [facility] [place] [facility] [address] [id number] [place] [address]- 8599 May, [facility] [place] [facility] [address] [id number] [place] [address]- 9579 May, [facility] [address] [id number] [place] [address]- 5129 May, [facility] [place] [facility] [address] [id number] [place] [address]- 0444 May, [facility] [address] [id number] [place] [address]- 3177 15 May, 2014 [facility] [place] [facility] [address] [id number] [place] [address]- 4972 15 May, 2014 [facility] [address] [id number] [place] [address]- 4628 May, [facility] [place] [facility] [address] [id number] [place] [address]- 3327 May, [facility] [place] [facility] [address] [id number] [place] [address]- 7802 May, [facility] [place] [facility] [address] [id number] [place] [address]- 2667 May, [facility] [place] [facility] [address] [id number] [place] [address]- 4204 Apr, [facility] [place] [facility] [address] [id number] [place] [address]- 1734 Apr, [facility] [place] [facility] [address] [id number] [place] [address]- 7760 Apr, [facility] [place] [facility] [address] [id number] [place] [address]- 1420 Apr, [facility] [place] [facility] [address] [id number] [place] [address]- 0457 Apr, [facility] [place] [facility] [address] [id number] [place] [address]- 4241 Apr, [facility] [place] [facility] [address] [id number] [place] [address]- 0983 18 Apr, 2014 [facility] [place] [facility] [address] [id number] [place] [address]- 0284 18 Apr, 2014 [facility] [place] [facility] [address] [id number] [place] [address]- 1662 17 Apr, 2014 [facility] [place] [facility] [address] [id number] [place] [address]- 5418 17 Apr, 2014 [facility] [place] [facility] [address] [id number] [place] [address]- 7668 Apr, [facility] [place] [facility] [address] [id number] [place] [address]- 4190 13 Apr, 2014 [facility] [place] [facility] [address] [id number] [place] [address]- 1317 11 Apr, 2014 [facility] [place] [facility] [address] [id number] [place] [address]- 0687 10 Apr, 2014 [facility] [place] [facility] [address] [id number] [place] [address]- 1206 10 Apr, 2014 [facility] [place] [facility] [address] [id number] [place] [address]- 3117 16 Mar, 2014 [facility] [place] [facility] [address] [id number] [address]- 6928 16 Mar, 2014 [facility] [place] [facility] [address] [id number] [place] [address]- 0780 16 Mar, 2014 [facility] [place] [facility] [address] [id number] [address]- 7347 16 Mar, 2014 [facility] [place] [facility] [address] [id number] [place] [address]- 6332 19 Jan, 2014 [facility] [place] [facility] [address] [id number] [place] [address]- 6912 19 Jan, 2014 [facility] [place] [facility] [address] [id number] [address]- 0462 18 Jan, 2014 [facility] [place] [facility] [address] [id number] [place] [address]- 0591 Jan, [facility] [place] [facility] [address] [id number] [place] [address]- 9012 Jan, [facility] [place] [facility] [address] [id number] [place] [address]- 0169 Jan, [facility] [place] [facility] [address] [id number] [place] [address]- 9487 Dec, [facility] [place] [facility] [address] [id number] [place] [address]- 9387 Dec, [facility] [place] [facility] [address] [id number] [place] [address]- 7874 Dec, [facility] [place] [facility] [address] [id number] [place] [address]- 8714 Dec, [facility] [place] [facility] [address] [id number] [place] [address]- 4266 Nov, [facility] [place] [facility] [address] [id number] [place] [address]- 1490 Nov, [facility] [place] [facility] [address] [id number] [place] [address]- 2515 Nov, [facility] [place] [facility] [address] [id number] [place] [address]- 8724 Nov, [facility] [place] [facility] [address] [id number] [place] [address]- 5603 Oct, [facility] [place] [facility] [address] [id number] [place] [address]- 8936 Oct, [facility] [place] [facility] [address] [id number] [place] [address]- 4256 Oct, [facility] [place] [facility] [address] [id number] [place] [address]- 6225 Oct, [facility] [place] [facility] [address] [id number] [place] [address]- 1887 Oct, [facility] [place] [facility] [address] [id number] [place] [address]- 4829 Oct, [facility] [place] [facility] [address] [id number] [place] [address]- 1933 Oct, [facility] [place] [facility] [address] [id number] [place] [address]- 2430 Oct, [facility] [place] [facility] [address] [id number] [place] [address]- 5761 Oct, [facility] [place] [facility] [address] [id number] [place] [address]- 5633 Oct, [facility] [place] [facility] [address] [id number] [place] [address]- 4670 September, [facility] [place] [facility] [address] [id number] [place] [address]- 2352 September, [facility] [place] [facility] [address] [id number] [place] [address]- 0931 September, [facility] [place] [facility] [address] [id number] [place] [address]- 1917 September, [facility] [place] [facility] [address] [id number] [place] [address]- 0561 September, [facility] [place] [facility] [address] [id number] [place] [address]- 3172 September, [facility] [place] [facility] [address] [id number] [place] [address]- 4108 September, [facility] [place] [facility] [address] [id number] [place] 8078 September, [facility] [place] [facility] [address] [id number] [place] 3402 September, [facility] [place] [facility] [address] [id number] [place] [address]- 0186 Aug, [facility] [place] [facility] [address] [id number] [place] [address]- 5907 Aug, [facility] [place] [facility] [address] [id number] [place] [address]- 2128 Aug, [facility] [place] [facility] [address] [id number] [place] [address]- 7248 Aug, [facility] [place] [facility] [address] [id number] [place] [address]- 9141 Aug, [facility] [place] [facility] [address] [id number] [place] [address]- 0339 Aug, [facility] [place] [facility] [address] [id number] [place] [address]- 8012 Aug, [facility] [place] [facility] [address] [id number] [place] [address]- 4463 Aug, [facility] [place] [facility] [address] [id number] [place] [address] Jul, [facility] [place] [facility] [address] [id number] [place] [address] Jul, [facility] [place] [facility] [address] [id number] [place] [address] Jul, [facility] [place] [facility] [address] [id number] [place] [address] Jul, [facility] [place] [facility] [address] [id number] [place] [address] Jul, [facility] [place] [facility] [address] [id number] [place] [address] Jul, [facility] [place] [facility] [address] [id number] [place] [address] Jul, [facility] [place] [facility] [address] [id number] [place] [address] Jul, [facility] [place] [facility] [address] [id number] [place] [address] Jul, [facility] [place] [facility] [address] [id number] [place] [address] 17 Jul, 2013 [facility] [place] [facility] [address] [id number] [place] [address] 17 Jul, 2013 [facility] [place] [facility] [address] [id number] [place] [address] Jul, [facility] [place] [facility] [address] [id number] [place] [address] Jul, [facility] [place] [facility] [address] [id number] [place] [address] 05 Jul, 2013 [facility] [place] [facility] [address] [id number] [place] [address] Jul, [facility] [place] [facility] [address] [id number] [place] [address] 10 Jul, 2013 [facility] [place] [facility] [address] [id number] [place] [address] Jul, [facility] [place] [facility] [address] [id number] [place] [address] Jul, [facility] [place] [facility] [address] [id number] [place] [address] Jul, [facility] [place] [facility] [address] [facility] [id number] [place] [address] Jun, [facility] [place] [facility] [address] [id number] [place] [address] Jun, [facility] [place] [facility] [address] [id number] [place] [address] May, [facility] [place] [facility] [address] [id number] [place] [address]- [address] May, [facility] [place] [facility] [address] [id number] [place] [address] Apr, [facility] [place] [facility] [address] [id number] [place] [address] Apr, [facility] [place] [facility] [address] [id number] [place] [address] Apr, [facility] [place] [facility] [address] [id number] [place] [address] Apr, [facility] [place] [facility] [address] [id number] [place] [address] Apr, [facility] [place] [facility] [address] [id number] [place] [address] Apr, [facility] [place] [facility] [address] [id number] [place] [address] Mar, [facility] [place] [facility] [address] [id number] [place] [address] Mar, [facility] [place] [facility] [address] [id number] [place] [address] Mar, [facility] [place] [facility] [address] [id number] [place] [address] Mar, [facility] [place] [facility] [address] [id number] [place] [address] Jan, [facility] [place] [facility] [address] [id number] [place] [address] Jan, [facility] [place] [facility] [address] [id number] [place] [address] Jan, [facility] [place] [facility] [address] [id number] [place] [address] Dec, [facility] [place] [facility] [address] [id number] [place] [address] Dec, [facility] [place] [facility] [address] [id number] [place] [address] Dec, [facility] [place] [facility] [address] [id number] [place] [address] Dec, [facility] [place] [facility] [address] [id number] [place] [address] Nov, [facility] [address] [id number] [place] [address] Nov, [facility] [place] [facility] [address] [id number] [place] [address] Nov, [facility] [place] [facility] [address] [id number] [place] [address] Oct, [facility] [place] [facility] [address] [id number] [place] [address] Oct, [facility] [place] [facility] [address] [address] [id number] [place] [address] Oct, [facility] [place] [facility] [address] [id number] [place] [address] Oct, [facility] [address] [id number] [place] [address] Oct, [facility] [place] [facility] [address] [id number] [place] [address] Oct, [facility] [place] [facility] [address] [id number] [place] [address] September, [facility] [place] [facility] [address] [id number] [place] [address] Jul, [facility] [place] [facility] [address] [id number] [place] [address] Jul, [facility] [place] [facility] [address] [id number] [place] [address] Jul, [facility] [place] [facility] [address] [id number] [place] [address] Jul, [facility] [place] [facility] [address] [id number] [place] [address] Jul, [facility] [place] [facility] [address] [id number] [place] [address] Jul, [facility] [place] [facility] [address] [id number] [place] [address] Jun, [facility] [place] [facility] [address] [id number] [place] [address] Apr, [facility] [place] [facility] [address] [id number] [place] [address] Apr, [facility] [place] [facility] [address] [id number] [place] [address] Jan, [facility] [place] [facility] [address] [id number] [place] [address] Dec, [facility] [place] [facility] [address] [id number] [place] [address] Nov, [facility] [place] [facility] [address] [id number] [place] [address] Oct, [facility] [place] [facility] [address] [id number] [place] [address] September, [facility] [place] [facility] [address] [id number] [place] [address] September, [facility] [place] [facility] [address] [id number] [place] [address] Jul, [facility] [place] [facility] [address] [id number] [place] [address] Jul, [facility] [place] [facility] [address] [id number] [place] [address] Jul, [facility] [place] [facility] [address] [id number] [place] [address] Jul, [facility] [place] [facility] [address] [id number] [place] [address] Jul, [facility] [place] [facility] [address] [id number] [place] [address] 17 Jul, 2011 [facility] [place] [facility] [address] [id number] [address] 13 Jul, 2011 [facility] [place] [facility] [address] [id number] [place] [address] Jul, [facility] [place] [facility] [address] [id number] [place] [address] 08 Jul, 2011 [facility] [place] [facility] [address] [facility] [id number] [place] [address] Jul, [facility] [place] [facility] [address] [id number] [place] [address] Jun, [facility] [place] [facility] [address] [id number] [place] [address] May, [facility] [place] [facility] [address] [facility] [id number] [place] [address] May, [facility] [place] [facility] [address] [facility] [id number] [place] [address] May, [facility] [place] [facility] [address] [facility] [id number] [place] [address] Apr, [facility] [place] [facility] [address] [facility] [id number] [place] [address] Apr, [facility] [place] [facility] [address] [facility] [id number] [place] [address] Mar, [facility] [place] [facility] [address] [facility] [id number] [place] [address] Mar, [facility] [place] [facility] [address] [facility] [id number] [place] [address] Mar, [facility] [place] [facility] [address] [facility] [id number] [place] [address] Mar, [facility] [place] [facility] [address] [facility] [id number] [place] [address] 10 Mar, 2011 [facility] [place] [facility] [address] [facility] [id number] [place] [address] September, [facility] [place] [facility] [address] [facility] [id number] [place] [address] [address] Mar, [facility] [address] [facility] [id number] [place] [address] Dec, [facility] [address] [facility] [id number] [place] [address] May, [facility] [address] [facility] [id number] [place] [address] May, IMMUNIZATIONS No Known Immunizations SOCIAL HISTORY Never Assessed REASON FOR VISIT [place] update PLAN OF CARE VITAL SIGNS MEDICATIONS Unknown [...]
--- OUTSIDE RECORDS SUMMARY | 2018-03-04 18:20 | XMS REPORT ---
Author Author CEDRICK BARCENAS Organization [facility] Address [address] [place] [address] Care Team Providers Care Canvas Cutter Machine Name Role Phone CEDRICK BARCENAS Unavailable PROBLEMS Type Condition ICD9-CM Code MKT35-DP Code Onset Dates Condition Status SNOMED Code Problem senior care 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.891 Active 937037079 Problem Depression, unspecified depression type F32.9 Active 53119177 Problem Chronic pain syndrome G89.4 Active 084786865 Problem Chronic tension-type headache, intractable G44.221 Active 556880615 Problem Generalized anxiety disorder F41.1 Active 74428947 Problem Mixed hyperlipidemia E78.2 Active 517276478 Problem Hypothyroidism, unspecified E03.9 Active 29607896 Problem Major depressive disorder, recurrent episode, moderate F33.1 Active 441957777 Problem Anxiety F41.9 Active 58789731 ALLERGIES No Information ENCOUNTERS Encounter Location Date Diagnosis [facility] [id number] [place] [address] 45573- 7557 Dec, [facility] [id number] [place] [address] 66450- 4391 Oct, [facility] [id number] [place] [address] 93305- 2731 Oct, [facility] [id number] [place] [address] 74067- 2255 Oct, [facility] [address] 38633- 2418 September, Chronic pain syndrome G89.4 [facility] [id number] [place] [address] 56161- 7465 September, Depression, unspecified depression type F32.9 and Cervicalgia M54.2 [place] [facility] [id number] [place] [address] 59054- 3389 September, Chronic pain syndrome G89.4 [facility] [id number] [place] [address] 60214- 4090 Aug, Red stool R19.5 [facility] [id number] [place] [address] 52950- 5456 Aug, Depression, unspecified depression type F32.9 ; Chronic pain syndrome G89.4 ; Chronic tension-type headache, intractable G44.221 ; Red stool R19.5 ; Hypothyroidism, unspecified E03.9 and Mixed hyperlipidemia E78.2 [place] [id number] [place] [address] 94666- 1588 Jul, Major depressive disorder, recurrent episode, moderate F33.1 [place] [facility] [id number] [place] [address] 85254- 4548 Jul, [place] [address] 06822- 0173 Jul, Hypothyroidism, unspecified E03.9 [place] [id number] [place] [address] 45610- 6887 Jul, Hypothyroidism, unspecified E03.9 [facility] [id number] [place] [address] 28751- 8373 Jul, Mixed hyperlipidemia E78.2 [place] [id number] [place] [address] 20159- 5022 Jul, Mixed hyperlipidemia E78.2 [facility] [id number] [place] [address] 77478 -9899 08 Jul, 2017 Bronchitis J40 ; Cough R05 and Wheezing R06.2 [place] [id number] [place] [address] 47506- 8671 07 Jul, 2017 Major depressive disorder, recurrent episode, moderate F33.1 and Generalized anxiety disorder F41.1 [place] [id number] [place] [address] 55243- 1390 Jul, [place] [address] 35056- 4136 Jul, Major depressive disorder, recurrent episode, moderate F33.1 and Generalized anxiety disorder F41.1 [place] [address] 26113- 3055 Jul, Generalized anxiety disorder F41.1 and Major depressive disorder, recurrent episode, moderate F33.1 [place] [address] 64989- 9814 Jul, Mixed hyperlipidemia E78.2 [place] [address] 26611- 9580 Jun, Depression, unspecified depression type F32.9 ; Cervicalgia M54.2 ; Trigger point M79.1 ; Hypothyroidism, unspecified E03.9 ; Screening, lipid Z13.220 and Mixed hyperlipidemia E78.2 [place] [id number] [place] [address] 14652- 6732 Jun, [place] [address] 76927- 9416 May, [place] [address] 91696- 6772 Apr, Acute bronchitis due to other specified organisms J20.8 and Tobacco abuse counseling Z71.6 [place] [facility] [id number] [place] [address] 36620- 9924 Mar, Depression, unspecified depression type F32.9 [place] [facility] [id number] [place] [address] 78431- 2697 Jan, Chronic pain syndrome G89.4 [place] [facility] [id number] [place] [address] 88181- 7196 Nov, Anxiety F41.9 ; Depression, unspecified depression type F32.9 and Chronic pain syndrome G89.4 [facility] [id number] [place] [address] 26260- 7198 Oct, Anxiety F41.9 and Hypothyroidism, unspecified E03.9 [facility] [id number] [place] [address] 72074 -8078 Oct, Left foot pain M79.672 and Contusion of left foot, 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 S90.32XA [facility] [address] 57290- 5937 Oct, [facility] [address] 90847- 7824 September, Cervicalgia M54.2 [facility] [address] 88490- 8104 September, [facility] [address] 48387- 0222 Aug, Cervicalgia M54.2 [facility] [id number] [place] [address] 88899- 4366 Aug, Cervicalgia M54.2 and Left arm numbness R20.0 [facility] [id number] [place] [address] 03912- 5133 Aug, [facility] [id number] [place] [address] 04484- 4749 Aug, [facility] [id number] [place] [address] 30368- 0818 Jul, [facility] [id number] [place] [address] 41775- 7806 Jul, [facility] [address] 02367- 1759 Jul, [facility] [id number] [place] [address] 25208- 9436 Jul, Acute midline low back pain without sciatica M54.5 [facility] [id number] [place] [address] 92341- 7938 Jun, Acute midline low back pain without sciatica M54.5 [facility] [id number] [place] [address] 66033- 2087 Jun, Chronic pain syndrome G89.4 and Muscle spasm M62.838 [facility] [id number] [place] [address] 60163- 0457 Jun, [facility] [id number] [place] [address] 32273- 7272 Jun, Acute midline low back pain without sciatica M54.5 [place] [address] 13481- 8267 Jun, [facility] [id number] [place] [address] 81295- 0390 May, [facility] [address] 42303- 2733 May, Hypothyroidism, unspecified E03.9 ; Chronic pain syndrome G89.4 ; Hyperglycemia R73.9 ; Encounter for immunization Z23 and Mixed hyperlipidemia E78.2 [place] [id number] [place] [address] 48805- 6698 Apr, Fatigue 780.79 [facility] [id number] [place] [address] 20698- 8389 Apr, Chronic pain syndrome G89.4 [facility] [id number] [place] [address] 70068- 4908 Mar, [facility] [id number] [place] [address] 65333- 4366 Mar, Chronic pain syndrome G89.4 [facility] [id number] [place] [address] 73984- 0644 Jan, [facility] [id number] [place] [address] 07061- 7771 Dec, [facility] [address] [place] [address] 81970- 6240 Dec, Chronic pain syndrome G89.4 [place] [id number] [place] [address] 21366- 4487 Dec, Trigger point M79.2 [facility] [id number] [place] [address] 82645- 9037 Nov, Chronic pain syndrome G89.4 [facility] [id number] [place] [address] 41064- 0063 Oct, Chronic pain syndrome G89.4 [place] [id number] [place] [address] 47874- 2759 Oct, Irritant contact dermatitis due to detergent L24.0 [place] [id number] [place] [address] 93049- 3396 September, Hypothyroidism, unspecified E03.9 and Depression, unspecified depression type F32.9 [place] [id number] [place] [address] 85476- 3817 September, Chronic pain syndrome G89.4 [place] [id number] [place] [address] 14846- 7672 Aug, [place] [id number] [place] [address] 56742- 5057 Aug, Trigger point M79.2 [place] [id number] [place] [address] 94906- 0476 Jul, Chronic pain syndrome G89.4 and senior care 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.891 [place] [address] [place] [address] 62551- 5533 Jul, Chronic pain syndrome G89.4 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 [place] [id number] [place] [address] 45400- 2293 Jul, [place] [address] [address]- 0443 Jul, [facility] [address] 8781 Jun, [facility] [address] [address]- 9842 May, [facility] [address] [place] [address] 406348- 9722 May, [facility] [address] [address]- 8739 May, [facility] [address] [place] [address] 592133- 2757 May, Pneumonia, organism unspecified, unspecified laterality, unspecified part of lung J18.9 [facility] [address] [address]- 9563 May, Pneumonia, organism unspecified, unspecified laterality, unspecified part of lung J18.9 [facility] [address] [address]- 6190 Apr, [facility] [address] [address]- 4355 Apr, [facility] [address] [address]- 6558 Apr, [facility] [address] [address]- 8685 Apr, [facility] [id number] [address]- 6407 Apr, [facility] [address] [address]- 4706 Apr, Epigastric pain R10.13 [facility] [id number] [address]- 8868 Mar, Tinea pedis B35.3 and Contact dermatitis and eczema due to detergents L24.0 [facility] [address] [place] [address] 51928- 1067 Mar, [facility] [id number] [place] [address] 43903- 6509 Jan, [facility] [id number] [place] [address] 98156- 8548 Jan, [facility] [id number] [place] [address] 007177- 6934 Jan, [facility] [id number] [place] [address] 41427- 7858 Dec, [facility] [id number] [place] [address] 25572- 6968 Nov, [facility] [id number] [place] [address] 75764- 5293 Nov, Fatigue 780.79 [facility] [id number] [place] [address] 42916- 3385 Nov, [facility] [id number] [place] [address] 91510- 0720 Nov, Unspecified myalgia and myositis 729.1 [place] [id number] [place] [address] 72327- 8424 Nov, Hypercalcemia 275.42 [place] [id number] [place] [address] 95767- 0285 Nov, Fatigue 780.79 ; Bradycardia 427.89 ; Chronic pain 338.29 and Family history of diabetes mellitus V18.0 [place] [id number] [place] [address] 35948- 4973 Nov, Fatigue 780.79 ; Chronic pain 338.29 ; Family history of diabetes mellitus V18.0 ; Bradycardia 427.89 ; Hypothyroid 244.9 and Anxiety 300.00 [facility] [id number] [place] [address] 67408- 4413 Oct, [facility] [place] [facility] [address] [id number] [place] [address]- 5972 September, [facility] [place] [facility] [address] [id number] [place] [address]- 7815 Aug, [facility] [place] [facility] [address] [id number] [place] [address]- 2395 Aug, [facility] [place] [facility] [address] [id number] [place] [address]- 1550 Aug, [facility] [place] [facility] [address] [id number] [place] [address]- 2818 Jul, [facility] [place] [facility] [address] [id number] [place] [address]- 2693 Jul, [facility] [place] [facility] [address] [id number] [place] [address]- 4867 Jul, [facility] [place] [facility] [address] [id number] [place] [address]- 5396 Jul, [facility] [place] [facility] [address] [id number] [place] [address]- 1796 Jun, [facility] [place] [facility] [address] [id number] [place] [address]- 4308 Jun, [facility] [place] [facility] [address] [id number] [address]- 3693 Jun, [facility] [place] [facility] [address] [id number] [address]- 8437 Jun, [facility] [place] [facility] [address] [id number] [place] [address]- 2283 Jun, [facility] [place] [facility] [address] [facility] [id number] [place] [address]- 6365 Jun, [facility] [place] [facility] [address] [id number] [place] [address]- 9125 May, [facility] [place] [facility] [address] [id number] [place] [address]- 0958 May, [facility] [address] [id number] [place] [address]- 7346 May, [facility] [place] [facility] [address] [id number] [place] [address]- 4674 May, [facility] [address] [id number] [place] [address]- 4493 15 May, 2014 [facility] [place] [facility] [address] [id number] [place] [address]- 1442 15 May, 2014 [facility] [address] [id number] [place] [address]- 8202 May, [facility] [place] [facility] [address] [id number] [place] [address]- 7913 May, [facility] [place] [facility] [address] [id number] [place] [address]- 0575 May, [facility] [place] [facility] [address] [id number] [place] [address]- 7256 May, [facility] [place] [facility] [address] [id number] [place] [address]- 5220 Apr, [facility] [place] [facility] [address] [id number] [place] [address]- 0365 Apr, [facility] [place] [facility] [address] [id number] [place] [address]- 9239 Apr, [facility] [place] [facility] [address] [id number] [place] [address]- 2756 Apr, [facility] [place] [facility] [address] [id number] [place] [address]- 7947 Apr, [facility] [place] [facility] [address] [id number] [place] [address]- 0877 Apr, [facility] [place] [facility] [address] [id number] [place] [address]- 6270 18 Apr, 2014 [facility] [place] [facility] [address] [id number] [place] [address]- 4237 18 Apr, 2014 [facility] [place] [facility] [address] [id number] [place] [address]- 7471 17 Apr, 2014 [facility] [place] [facility] [address] [id number] [place] [address]- 4791 17 Apr, 2014 [facility] [place] [facility] [address] [id number] [place] [address]- 9798 Apr, [facility] [place] [facility] [address] [id number] [place] [address]- 1519 13 Apr, 2014 [facility] [place] [facility] [address] [id number] [place] [address]- 6571 11 Apr, 2014 [facility] [place] [facility] [address] [id number] [place] [address]- 6804 10 Apr, 2014 [facility] [place] [facility] [address] [id number] [place] [address]- 7041 10 Apr, 2014 [facility] [place] [facility] [address] [id number] [place] [address]- 7923 16 Mar, 2014 [facility] [place] [facility] [address] [id number] [address]- 1597 16 Mar, 2014 [facility] [place] [facility] [address] [id number], [place] [address]- 9265 16 Mar, 2014 [facility] [place] [facility] [address] [id number], [place] [address]- 3541 16 Mar, 2014 [facility] [place] [facility] [address] [id number] [place] [address]- 7269 19 Jan, 2014 [facility] [place] [facility] [address] [id number] [place] [address]- 6523 19 Jan, 2014 [facility] [place] [facility] [address] [id number] [address]- 6645 18 Jan, 2014 [facility] [place] [facility] [address] [id number], [place] [address]- 7558 Jan, [facility] [place] [facility] [address] [id number] [place] [address]- 2303 Jan, [facility] [place] [facility] [address] [id number] [place] [address]- 3468 Jan, [facility] [place] [facility] [address] [id number] [place] [address]- 3763 Dec, [facility] [place] [facility] [address] [id number] [place] [address]- 8210 Dec, [facility] [place] [facility] [address] [id number] [place] [address]- 1074 Dec, [facility] [place] [facility] [address] [id number] [place] [address]- 8050 Dec, [facility] [place] [facility] [address] [id number] [place] [address]- 6169 Nov, [facility] [place] [facility] [address] [id number] [place] [address]- 2262 Nov, [facility] [place] [facility] [address] [id number] [place] [address]- 1253 Nov, [facility] [place] [facility] [address] [id number] [place] [address]- 7859 Nov, [facility] [place] [facility] [address] [id number] [place] [address]- 8249 Oct, [facility] [place] [facility] [address] [id number] [place] [address]- 6757 Oct, [facility] [place] [facility] [address] [id number] [place] [address]- 1137 Oct, [facility] [place] [facility] [address] [id number] [place] [address]- 0757 Oct, [facility] [place] [facility] [address] [id number] [place] [address]- 9649 Oct, [facility] [place] [facility] [address] [id number] [place] [address]- 8175 Oct, [facility] [place] [facility] [address] [id number] [place] [address]- 8561 Oct, [facility] [place] [facility] [address] [id number] [place] [address]- 5828 Oct, [facility] [place] [facility] [address] [id number] [place] [address]- 3385 Oct, [facility] [place] [facility] [address] [id number] [place] [address]- 1312 Oct, [facility] [place] [facility] [address] [id number] [place] [address]- 2918 September, [facility] [place] [facility] [address] [id number] [place] [address]- 1407 September, [facility] [place] [facility] [address] [id number] [place] [address]- 0225 September, [facility] [place] [facility] [address] [id number] [place] [address]- 8957 September, [facility] [place] [facility] [address] [id number] [place] [address]- 2338 September, [facility] [place] [facility] [address] [id number] [place] [address]- 3542 September, [facility] [place] [facility] [address] [id number] [place] [address]- 1713 September, [facility] [place] [facility] [address] [id number] [place] 4993 September, [facility] [place] [facility] [address] [id number] [place] 3303 September, [facility] [place] [facility] [address] [id number] [place] [address]- 2788 Aug, [facility] [place] [facility] [address] [id number] [place] [address]- 8597 Aug, [facility] [place] [facility] [address] [id number] [place] [address] Aug, [facility] [place] [facility] [address] [id number] [place] [address] Aug, [facility] [place] [facility] [address] [id number] [place] [address] Aug, [facility] [place] [facility] [address] [id number] [place] [address] Aug, [facility] [place] [facility] [address] [id number] [place] [address] Aug, [facility] [place] [facility] [address] [id number] [place] [address] Aug, [facility] [place] [facility] [address] [id number] [place] [address] Jul, [facility] [place] [facility] [address] [id number] [place] [address] Jul, [facility] [place] [facility] [address] [id number] [place] [address] Jul, [facility] [place] [facility] [address] [id number] [place] [address] Jul, [facility] [place] [facility] [address] [id number] [place] [address] Jul, [facility] [place] [facility] [address] [id number] [place] [address] Jul, [facility] [place] [facility] [address] [id number] [place] [address] Jul, [facility] [place] [facility] [address] [id number] [place] [address] Jul, [facility] [place] [facility] [address] [id number] [place] [address] Jul, [facility] [place] [facility] [address] [id number] [place] [address] 17 Jul, 2013 [facility] [place] [facility] [address] [id number] [place] [address] 17 Jul, 2013 [facility] [place] [facility] [address] [id number] [place] [address] Jul, [facility] [place] [facility] [address] [id number] [place] [address] Jul, [facility] [place] [facility] [address] [id number] [place] [address] 05 Jul, 2013 [facility] [place] [facility] [address] [id number] [place] [address] Jul, [facility] [place] [facility] [address] [id number] [place] [address] 10 Jul, 2013 [facility] [place] [facility] [address] [id number] [place] [address] Jul, [facility] [place] [facility] [address] [id number] [place] [address] Jul, [facility] [place] [facility] [address] [id number] [place] [address] Jul, [facility] [place] [facility] [address] [facility] [id number] [place] [address] Jun, [facility] [place] [facility] [address] [id number] [place] [address] Jun, [facility] [place] [facility] [address] [id number] [place] [address] May, [facility] [place] [facility] [address] [id number] [place] [address] May, [facility] [place] [facility] [address] [id number] [place] [address] Apr, [facility] [place] [facility] [address] [id number] [place] [address] Apr, [facility] [place] [facility] [address] [id number] [place] [address] Apr, [facility] [place] [facility] [address] [id number] [place] [address] Apr, [facility] [place] [facility] [address] [id number] [place] [address] Apr, [facility] [place] [facility] [address] [id number] [place] [address] Apr, [facility] [place] [facility] [address] [id number] [place] [address] Mar, [facility] [place] [facility] [address] [id number] [place] [address] Mar, [facility] [place] [facility] [address] [id number] [place] [address] Mar, [facility] [place] [facility] [address] [id number] [address] Mar, [facility] [place] [facility] [address] [id number] [place] [address] Jan, [facility] [place] [facility] [address] [id number], [place] [address] Jan, [facility] [place] [facility] [address] [id number], [place] [address] Jan, [facility] [place] [facility] [address] [id number], [place] [address] Dec, [facility] [place] [facility] [address] [id number] [place] [address] Dec, [facility] [place] [facility] [address] [id number][place] [address] Dec, [facility] [place] [facility] [address] [id number][place] [address] Dec, [facility] [place] [facility] [address] [id number], [place] [address] Nov, [facility] [address] [id number] [place] [address] Nov, [facility] [place] [facility] [address] [id number] [place] [address] Nov, [facility] [place] [facility] [address] [id number] [place] [address] Oct, [facility] [place] [facility] [address] [id number] [place] [address] Oct, [facility] [place] [facility] [address] [id number] [place] [address] Oct, [facility] [place] [facility] [address] [id number] [place] [address] Oct, [facility] [address] [id number] [place] [address] Oct, [facility] [place] [facility] [address] [id number] [place] [address] Oct, [facility] [place] [facility] [address] [id number] [place] [address] September, [facility] [place] [facility] [address] [id number] [place] [address] Jul, [facility] [place] [facility] [address] [id number] [place] [address] Jul, [facility] [place] [facility] [address] [id number] [place] [address] Jul, [facility] [place] [facility] [address] [id number] [place] [address] Jul, [facility] [place] [facility] [address] [id number] [place] [address] Jul, [facility] [place] [facility] [address] [id number] [place] [address] Jul, [facility] [place] [facility] [address] [id number] [place] [address] Jun, [facility] [place] [facility] [address] [id number] [place] [address] Apr, [facility] [place] [facility] [address] [id number] [place] [address] Apr, [facility] [place] [facility] [address] [id number] [place] [address] Jan, [facility] [place] [facility] [address] [id number] [place] [address] Dec, [facility] [place] [facility] [address] [id number] [place] [address] Nov, [facility] [place] [facility] [address] [id number] [place] [address] Oct, [facility] [place] [facility] [address] [id number] [place] [address] September, [facility] [place] [facility] [address] [id number] [place] [address] September, [facility] [place] [facility] [address] [id number] [place] [address] Jul, [facility] [place] [facility] [address] [id number] [place] [address] Jul, [facility] [place] [facility] [address] [id number] [place] [address] Jul, [facility] [place] [facility] [address] [id number] [place] [address] Jul, [facility] [place] [facility] [address] [id number] [place] [address] Jul, [facility] [place] [facility] [address] [id number] [place] [address] 17 Jul, 2011 [facility] [place] [facility] [address] [id number], [place] [address] 13 Jul, 2011 [facility] [place] [facility] [address] [id number] [place] [address] Jul, [facility] [place] [facility] [address] [id number] [place] [address] 08 Jul, 2011 [facility] [place] [facility] [address] [facility] [id number] [place] [address] Jul, [facility] [place] [facility] [address] [id number] [place] [address] Jun, [facility] [place] [facility] [address] [id number] [place] [address] May, [facility] [place] [facility] [address] [facility] [id number] [place] [address] May, [facility] [place] [facility] [address] [facility] [id number] [place] [address] May, [facility] [place] [facility] [address] [facility] [id number] [place] [address] Apr, [facility] [place] [facility] [address] [facility] [id number] [place] [address] Apr, [facility] [place] [facility] [address] [facility] [id number] [place] [address] Mar, [facility] [place] [facility] [address] [facility] [id number], [place] [address] Mar, [facility] [place] [facility] [address] [facility] [id number], [place] [address] Mar, [facility] [place] [facility] [address] [facility] [id number], [place] [address] Mar, [facility] [place] [facility] [address] [facility] [id number], [place] [address] 10 Mar, 2011 [facility] [place] [facility] [address] [facility] [id number][place] [address] September, [facility] [place] [facility] [address] [facility] [id number] [place] [address] Mar, [facility] [address] [facility] [id number], [place] [address] Dec, [facility] [address] [facility] [id number], [place] [address] May, [facility] [address] [facility] [id number], [place] [address] May, IMMUNIZATIONS No Known Immunizations SOCIAL HISTORY Never Assessed REASON FOR VISIT Lab (walk-in) PLAN OF CARE VITAL SIGNS MEDICATIONS Unknown Medications RESULTS Name Result Date Reference Range HEMOCCULT (IN HOUSE) 2017-09-14 RESULTS Negative Control + Lot # [id number] Exp date 08/2018 HEMOCCULT (IN HOUSE)-Additional 2017-09-15 RESULTS Negative Control + Lot # [id number] Exp Date 08/2018 PROCEDURES Procedure Date Ordered Result Body Site TEST FOR BLOOD, FECES September 15, 2017 INSTRUCTIONS MEDICATIONS ADMINISTERED No Known Medications [...]
--- OUTSIDE RECORDS SUMMARY | 2018-03-04 18:21 | XMS REPORT ---
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 Active 620260872 Problem Depression, unspecified depression type F32.9 Active 37908869 Problem Chronic pain syndrome G89.4 Active 141209724 Problem Chronic tension-type headache, intractable G44.221 Active 156135009 Problem Generalized anxiety disorder F41.1 Active 18312926 Problem Mixed hyperlipidemia E78.2 Active 615004331 Problem Hypothyroidism, unspecified E03.9 Active 11798969 Problem Major depressive disorder, recurrent episode, moderate F33.1 Active 758994470 Problem Anxiety F41.9 Active 43949229 ALLERGIES No Information ENCOUNTERS Encounter Location Date Diagnosis [place] [id number] [address]- [address]17 Dec, [place] [address] [place] [id number] [place] [address] 61596- 8244 Oct, [place] [address] 68724- 4227 Oct, [facility] [address] [place] [address] [id number] [place] [address] 08663- 4509 Oct, [place] [address] 36621- 0839 September, Chronic pain syndrome G89.4 [facility] [address] [place] [address] [id number] [place] [address] 27192- 9015 September, Depression, unspecified depression type F32.9 and Cervicalgia M54.2 [place] [address] [place] [id number] [place] [address] 36506- 8116 September, Chronic pain syndrome G89.4 [facility] [address] 62229- 6666 Aug, Red stool R19.5 [place] [address] 844741- 9048 Aug, Depression, unspecified depression type F32.9 ; Chronic pain syndrome G89.4 ; Chronic tension-type headache, intractable G44.221 ; Red stool R19.5 ; Hypothyroidism, unspecified E03.9 and Mixed hyperlipidemia E78.2 [place] [address] 77984- 3983 Jul, Major depressive disorder, recurrent episode, moderate F33.1 [place] [address] [place] [id number] [place] [address] 76418- 2324 Jul, [place] [address] 93868- 9778 Jul, Hypothyroidism, unspecified E03.9 [place] [address] 79001- 5721 Jul, Hypothyroidism, unspecified E03.9 [place] [address] [place] [id number] [place] [address] 79012- 0217 Jul, Mixed hyperlipidemia E78.2 [facility] [address] 03442- 5949 Jul, Mixed hyperlipidemia E78.2 [facility] [address] [place] [address] [id number] [place] [address] 87752 -8090 08 Jul, 2017 Bronchitis J40 ; Cough R05 and Wheezing R06.2 [facility] [address] [place] [id number] [place] [address] 13723- 3788 07 Jul, 2017 Major depressive disorder, recurrent episode, moderate F33.1 and Generalized anxiety disorder F41.1 [place] [address] [place] [address]- 5489 Jul, [place] [address] [place] [id number] [place] [address] 71533- 0762 Jul, Major depressive disorder, recurrent episode, moderate F33.1 and Generalized anxiety disorder F41.1 [place] [address] 17827- 8712 Jul, Generalized anxiety disorder F41.1 and Major depressive disorder, recurrent episode, moderate F33.1 [place] [address] 39479- 0340 Jul, Mixed hyperlipidemia E78.2 [place] [address] 18837- 3864 Jun, Depression, unspecified depression type F32.9 ; Cervicalgia M54.2 ; Trigger point M79.1 ; Hypothyroidism, unspecified E03.9 ; Screening, lipid Z13.220 and Mixed hyperlipidemia E78.2 [place] [address] 33223- 5233 Jun, [place] [address] 66597- 9698 May, [place] [address] 74416- 4890 Apr, Acute bronchitis due to other specified organisms J20.8 and Tobacco abuse counseling Z71.6 [place] [address] [place] [id number] [place] [address] 25678- 5276 Mar, Depression, unspecified depression type F32.9 [place] [address] [place] [id number] [place] [address] 24253- 9388 Jan, Chronic pain syndrome G89.4 [place] [address] 54666- 6349 Nov, Anxiety F41.9 ; Depression, unspecified depression type F32.9 and Chronic pain syndrome G89.4 [place] [address] [place] [id number] [place] [address] 07649- 9488 Oct, Anxiety F41.9 and Hypothyroidism, unspecified E03.9 [facility] [address] [id number] [place] [address] 87905 -4959 Oct, Left foot pain M79.672 and Contusion of left foot, 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 S90.32XA [facility] [address] 13190- 3568 Oct, [facility] [address] [place] [id number] [place] [address] 71018- 4109 September, Cervicalgia M54.2 [facility] [address] [place] [id number] [place] [address] 00064- 3463 September, [facility] [address] [place] [address] [id number] [place] [address] 31161- 7497 Aug, Cervicalgia M54.2 [facility] [address] [place] [id number] [place] [address] 64806- 8362 Aug, Cervicalgia M54.2 and Left arm numbness R20.0 [facility] [address] [place] [id number] [place] [address] 82028- 0744 Aug, [facility] [address] [place] [id number] [place] [address] 28490- 1485 Aug, [facility] [address] [place] [id number] [place] [address] 44162- 4145 Jul, [facility] [address] [place] [address] [id number] [place] [address] 36654- 9309 Jul, [facility] [address] [place] [id number] [place] [address] 06236- 6799 Jul, [facility] [address] [place] [id number] [place] [address] 76444- 0087 Jul, Acute midline low back pain without sciatica M54.5 [facility] [address] [place] [id number] [place] [address] 28077- 7452 Jun, Acute midline low back pain without sciatica M54.5 [facility] [address] [place] [id number] [place] [address] 01845- 8089 Jun, Chronic pain syndrome G89.4 and Muscle spasm M62.838 [facility] [address] [place] [id number] [place] [address] 97718- 0833 Jun, [facility] [address] 89036- 6624 Jun, Acute midline low back pain without sciatica M54.5 [facility] [address] 51055- 5069 Jun, [facility] [address] [place] [id number] [place] [address] 77396- 1052 May, [facility] [address] 17484- 5791 May, Hypothyroidism, unspecified E03.9 ; Chronic pain syndrome G89.4 ; Hyperglycemia R73.9 ; Encounter for immunization Z23 and Mixed hyperlipidemia E78.2 [place] [address] [place] [id number] [place] [address] 49896- 2105 Apr, Fatigue 780.79 [facility] [address] [place] [id number] [place] [address] 07101- 7367 Apr, Chronic pain syndrome G89.4 [facility] [address] [place] [id number] [place] [address] 54337- 2322 Mar, [facility] [address] [place] [id number] [place] [address] 29548- 2407 Mar, Chronic pain syndrome G89.4 [facility] [address] [place] [id number] [place] [address] 92080- 7464 Jan, [facility] [address] [place] [id number] [place] [address] 97919- 4708 Dec, [facility] [id number] [place] [address] 19236- 7212 Dec, Chronic pain syndrome G89.4 [facility] [address] [place] [id number] [place] [address] 82267- 3920 Dec, Trigger point M79.2 [facility] [address] [place] [id number] [place] [address] 81419- 0357 Nov, Chronic pain syndrome G89.4 [facility] [address] [place] [id number] [place] [address] 58067- 6096 Oct, Chronic pain syndrome G89.4 [place] [address] [place] [id number] [place] [address] 35929- 3118 Oct, Irritant contact dermatitis due to detergent L24.0 [place] [address] [place] [id number] [place] [address] 27285- 4342 September, Hypothyroidism, unspecified E03.9 and Depression, unspecified depression type F32.9 [place] [address] [place] [id number] [place] [address] 21428- 5443 September, Chronic pain syndrome G89.4 [place] [address] [place] [id number] [place] [address] 93643- 4525 Aug, [place] [address] [place] [id number] [place] [address] 06285- 3379 Aug, Trigger point M79.2 [facility] [address] [place] [id number] [place] [address] 51025- 1822 Jul, Chronic pain syndrome G89.4 and 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 [place] [address] [place] [id number] [place] [address] 03892- 2252 Jul, Chronic pain syndrome G89.4 and 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 [facility] [id number] [place] [address] 70590- 3823 Jul, [facility] [address] [address]- 0351 Jul, [facility] [id number] [place] [address] 924279- 6347 Jun, [facility] [address] [address]- 2500 May, [facility] [id number] [place] [address] 243647- 7619 May, [facility] [id number] [place] [address] 66741- 5457 May, [facility] [address] [place] [id number] [place] [address] 019402- 0640 May, Pneumonia, organism unspecified, unspecified laterality, unspecified part of lung J18.9 [facility] [id number] [place] [address] 55207- 5487 May, Pneumonia, organism unspecified, unspecified laterality, unspecified part of lung J18.9 [facility] [address] [address]- 5714 Apr, [facility] [id number] [place] [address] 05821- 9365 Apr, [facility] [address], [place] [address]- 8612 Apr, [facility] [id number] [place] [address] 48851- 7715 Apr, [facility] [address] [address]- 5790 Apr, [facility] [address] [place] [id number] [place] [address] 15248- 5783 Apr, Epigastric pain R10.13 [facility] [address] [address]- 3237 Mar, Tinea pedis B35.3 and Contact dermatitis and eczema due to detergents L24.0 [facility] [id number] [place] [address] 60523- 7635 Mar, [facility] [address] [place] [id number] [place] [address] 39517- 4300 Jan, [facility] [address] [place] [id number] [place] [address] 10090- 4613 Jan, [facility] [address] [place] [id number] [place] [address] 65619- 8185 Jan, [facility] [address] [place] [id number] [place] [address] 93862- 8852 Dec, [facility] [address] [place] [id number] [place] [address] 73656- 1212 Nov, [facility] [address] [place] [id number] [place] [address] 44042- 5108 Nov, Fatigue 780.79 [facility] [address] [place] [id number] [place] [address] 37214- 7465 Nov, [facility] [address] [place] [id number] [place] [address] 76747- 0733 Nov, Unspecified myalgia and myositis 729.1 [place] [address] [place] [id number] [place] [address] 62712- 2538 Nov, Hypercalcemia 275.42 [facility] [address] [place] [id number] [place] [address] 08785- 7165 Nov, Fatigue 780.79 ; Bradycardia 427.89 ; Chronic pain 338.29 and Family history of diabetes mellitus V18.0 [place] [address] [place] [id number] [place] [address] 45985- 2081 Nov, Fatigue 780.79 ; Chronic pain 338.29 ; Family history of diabetes mellitus V18.0 ; Bradycardia 427.89 ; Hypothyroid 244.9 and Anxiety 300.00 [facility] [address] [place] [id number] [place] [address] 88710- 4490 Oct, [facility] [place] [facility] [address] [id number] [place] [address]- 2151 September, [facility] [place] [facility] [address] [id number] [place] [address]- 0762 Aug, [facility] [place] [facility] [address] [id number] [place] [address]- 2948 Aug, [facility] [place] [facility] [address] [id number] [place] [address]- 6468 Aug, [facility] [place] [facility] [address] [id number] [place] [address]- 2403 Jul, [facility] [place] [facility] [address] [id number] [place] [address]- 6062 Jul, [facility] [place] [facility] [address] [facility] [id number] [place] [address]- 5773 Jul, [facility] [place] [facility] [address] [id number] [place] [address]- 9466 Jul, [facility] [place] [facility] [address] [id number] [place] [address]- 3160 Jun, [facility] [place] [facility] [address] [id number] [place] [address]- 4852 Jun, [facility] [place] [facility] [address] [id number] [place] [address]- 1486 Jun, [facility] [place] [facility] [address] [id number] [address]- 8114 Jun, [facility] [place] [facility] [address] [id number] [place] [address]- 3494 Jun, [facility] [place] [facility] [address] [id number] [place] [address]- 5001 Jun, [facility] [place] [facility] [address] [id number] [place] [address]- 7103 May, [facility] [place] [facility] [address] [id number] [place] [address]- 4623 May, [facility] [place] [facility] [address] [id number] [place] [address]- 9756 May, [facility] [place] [facility] [address] [id number] [place] [address]- 3798 May, [facility] [place] [facility] [address] [id number] [place] [address]- 1256 15 May, 2014 [facility] [place] [facility] [address] [id number] [place] [address]- 9596 15 May, 2014 [facility] [place] [facility] [address] [id number] [place] [address]- 2995 May, [facility] [place] [facility] [address] [id number] [place] [address]- 7945 May, [facility] [place] [facility] [address] [id number] [place] [address]- 1340 May, [facility] [place] [facility] [address] [id number] [place] [address]- 5450 May, [facility] [place] [facility] [address] [id number] [place] [address]- 4053 Apr, [facility] [place] [facility] [address] [id number] [place] [address]- 0066 Apr, [facility] [place] [facility] [address] [id number] [place] [address]- 6536 Apr, [facility] [place] [facility] [address] [id number] [place] [address]- 1892 Apr, [facility] [place] [facility] [address] [id number] [place] [address]- 8067 Apr, [facility] [place] [facility] [address] [id number] [place] [address]- 6289 Apr, [facility] [place] [facility] [address] [id number] [place] [address]- 8327 18 Apr, 2014 [facility] [place] [facility] [address] [id number] [place] [address]- 3932 18 Apr, 2014 [facility] [place] [facility] [address] [id number] [place] [address]- 8241 17 Apr, 2014 [facility] [place] [facility] [address] [id number] [place] [address]- 6537 17 Apr, 2014 [facility] [place] [facility] [address] [id number] [place] [address]- 3222 Apr, [facility] [place] [facility] [address] [id number] [place] [address]- 5434 13 Apr, 2014 [facility] [place] [facility] [address] [id number] [place] [address]- 0296 11 Apr, 2014 [facility] [place] [facility] [address] [id number] [place] [address]- 9922 10 Apr, 2014 [facility] [place] [facility] [address] [id number] [place] [address]- 8969 10 Apr, 2014 [facility] [place] [facility] [address] [id number] [place] [address]- 5736 16 Mar, 2014 [facility] [place] [facility] [address] [id number] [place] [address]- 6191 16 Mar, 2014 [facility] [place] [facility] [address] [id number] [place] [address]- 1442 16 Mar, 2014 [facility] [place] [facility] [address] [id number] [place] [address]- 1016 16 Mar, 2014 [facility] [place] [facility] [address] [id number] [place] [address]- 0154 19 Jan, 2014 [facility] [place] [facility] [address] [id number] [place] [address]- 7724 19 Jan, 2014 [facility] [place] [facility] [address] [id number] [place] [address]- 8242 18 Jan, 2014 [facility] [place] [facility] [address] [id number] [place] [address]- 3966 Jan, [facility] [place] [facility] [address] [id number] [place] [address]- 4453 Jan, [facility] [place] [facility] [address] [id number] [place] [address]- 9232 Jan, [facility] [place] [facility] [address] [id number] [place] [address]- 1127 Dec, [facility] [place] [facility] [address] [id number] [place] [address]- 9345 Dec, [facility] [place] [facility] [address] [id number] [place] [address]- 7266 Dec, [facility] [place] [facility] [address] [id number] [place] [address]- 1634 Dec, [facility] [place] [facility] [address] [id number] [place] [address]- 8909 Nov, [facility] [place] [facility] [address] [id number] [place] [address]- 5444 Nov, [facility] [place] [facility] [address] [id number] [place] [address]- 5178 Nov, [facility] [place] [facility] [address] [id number] [place] [address]- 8513 Nov, [facility] [place] [facility] [address] [id number] [place] [address]- 4837 Oct, [facility] [place] [facility] [address] [id number] [place] [address]- 5652 Oct, [facility] [place] [facility] [address] [id number] [place] [address]- 2143 Oct, [facility] [place] [facility] [address] [id number] [place] [address]- 9981 Oct, [facility] [place] [facility] [address] [id number] [place] [address]- 4406 Oct, [facility] [place] [facility] [address] [id number] [place] [address]- 0236 16 Oct, 2013 [facility] [address] [id number] [place] [address]- 4051 Oct, [facility] [place] [facility] [address] [id number] [place] [address]- 6204 Oct, [facility] [address] [id number] [place] [address]- 9687 Oct, [facility] [place] [facility] [address] [id number] [place] [address]- 9194 Oct, [facility] [address] [id number] [place] [address]- 6430 September, [facility] [place] [facility] [address] [id number] [place] [address]- 1890 September, [facility] [address] [id number] [place] [address]- 3160 September, [facility] [address] [id number] [place] [address]- 7771 September, [facility] [place] [facility] [address] [id number] [place] [address]- 4281 September, [facility] [address] [id number] [place] [address]- 2363 September, [facility] [place] [facility] [address] [id number] [place] [address]- 7901 September, [facility] [place] [facility] [address] [id number] [place] [address]- 0889 September, [facility] [place] [facility] [address] [id number] [place] 9854 September, [facility] [place] [facility] [address] [id number] [place] [address]- 3343 Aug, [facility] [place] [facility] [address] [id number] [place] [address]- 1440 Aug, [facility] [place] [facility] [address] [id number] [place] [address]- 2533 Aug, [facility] [place] [facility] [address] [id number] [place] [address] Aug, [facility] [place] [facility] [address] [id number] [place] [address] Aug, [facility] [place] [facility] [address] [id number] [place] [address] Aug, [facility] [place] [facility] [address] [id number] [place] [address] Aug, [facility] [place] [facility] [address] [id number] [place] [address] Aug, [facility] [place] [facility] [address] [id number] [place] [address] Jul, [facility] [place] [facility] [address] [id number] [place] [address] 1994 Jul, [facility] [place] [facility] [address] [id number] [place] [address] Jul, [facility] [place] [facility] [address] [id number] [place] [address] Jul, [facility] [place] [facility] [address] [id number] [place] [address] Jul, [facility] [place] [facility] [address] [id number] [place] [address]- [address] Jul, [facility] [place] [facility] [address] [id number] [place] [address] Jul, [facility] [place] [facility] [address] [id number] [place] [address]- [address] Jul, [facility] [place] [facility] [address] [id number] [place] [address] Jul, [facility] [place] [facility] [address] [id number] [place] [address]- [address] 17 Jul, 2013 [facility] [place] [facility] [address] [id number] [place] [address] 17 Jul, 2013 [facility] [place] [facility] [address] [id number] [place] [address]- [address] Jul, [facility] [place] [facility] [address] [id number] [place] [address] 2002 Jul, [facility] [place] [facility] [address] [id number] [place] [address] 05 Jul, 2013 [facility] [place] [facility] [address] [id number] [place] [address]- [address] Jul, [facility] [place] [facility] [address] [id number] [place] [address] Jul, [facility] [place] [facility] [address] [id number] [place] [address] Jul, [facility] [place] [facility] [address] [id number] [place] [address] Jul, [facility] [place] [facility] [address] [id number] [place] [address] Jul, [facility] [place] [facility] [address] [id number] [place] [address]- [address] Jun, [facility] [place] [facility] [address] [id number] [place] [address] Jun, [facility] [place] [facility] [address] [id number] [place] [address] May, [facility] [place] [facility] [address] [id number] [place] [address]- [address] May, [facility] [place] [facility] [address] [id number] [place] [address] Apr, [facility] [place] [facility] [address] [id number] [place] [address]- [address] Apr, [facility] [place] [facility] [address] [id number] [place] [address] Apr, [facility] [place] [facility] [address] [id number] [place] [address]- [address] Apr, [facility] [place] [facility] [address] [id number] [place] [address] Apr, [facility] [place] [facility] [address] [id number] [place] [address] Apr, [facility] [place] [facility] [address] [id number] [place] [address] Mar, [facility] [place] [facility] [address] [id number] [place] [address] Mar, [facility] [place] [facility] [address] [id number] [place] [address]- [address] Mar, [facility] [place] [facility] [address] [id number] [place] [address] Mar, [facility] [place] [facility] [address] [id number] [place] [address] Jan, [facility] [place] [facility] [address] [id number] [place] [address] Jan, [facility] [place] [facility] [address] [id number] [place] [address]- 14[address] Jan, [facility] [place] [facility] [address] [id number] [address] Dec, [facility] [place] [facility] [address] [id number] [place] [address] Dec, [facility] [place] [facility] [address] [id number] [place] [address] Dec, [facility] [place] [facility] [address] [id number] [place] [address] Dec, [facility] [place] [facility] [address] [id number] [place] [address] Nov, [facility] [place] [facility] [address] [id number] [place] [address] Nov, [facility] [place] [facility] [address] [id number] [place] [address] Nov, [facility] [place] [facility] [address] [id number] [place] [address] Oct, [facility] [place] [facility] [address] [id number] [place] [address] Oct, [facility] [place] [facility] [address] [id number] [place] [address] Oct, [facility] [place] [facility] [address] [id number] [place] [address] Oct, [facility] [place] [facility] [address] [id number] [place] [address] Oct, [facility] [place] [facility] [address] [id number] [place] [address] Oct, [facility] [place] [facility] [address] [id number] [place] [address] September, [facility] [place] [facility] [address] [id number] [place] [address] Jul, [facility] [place] [facility] [address] [id number] [place] [address] Jul, [facility] [place] [facility] [address] [id number] [place] [address] Jul, [facility] [place] [facility] [address] [id number] [place] [address] Jul, [facility] [place] [facility] [address] [id number] [place] [address] Jul, [facility] [place] [facility] [address] [id number] [place] [address] Jul, [facility] [place] [facility] [address] [id number] [place] [address] Jun, [facility] [address] [id number] [place] [address] Apr, [facility] [place] [facility] [address] [id number] [place] [address] Apr, [facility] [address] [id number] [place] [address] Jan, [facility] [place] [facility] [address] [id number] [place] [address] Dec, [facility] [address] [id number] [place] [address] Nov, [facility] [place] [facility] [address] [id number] [place] [address] Oct, [facility] [address] [id number] [place] [address] September, [facility] [address] [id number] [place] [address] September, [facility] [address] [id number] [place] [address] Jul, [facility] [address] [id number] [place] [address] Jul, [facility] [place] [facility] [address] [id number] [place] [address] Jul, [facility] [place] [facility] [address] [id number] [place] [address] Jul, [facility] [place] [facility] [address] [id number] [place] [address] Jul, [facility] [place] [facility] [address] [id number] [place] [address] 17 Jul, 2011 [facility] [place] [facility] [address] [id number] [place] [address] 13 Jul, 2011 [facility] [place] [facility] [address] [id number] [place] [address] Jul, [facility] [place] [facility] [address] [id number] [place] [address] 08 Jul, 2011 [facility] [place] [facility] [address] [id number] [place] [address] Jul, [facility] [place] [facility] [address] [id number] [place] [address] Jun, [facility] [place] [facility] [address] [id number] [place] [address] May, [facility] [place] [facility] [address] [id number] [place] [address] May, [facility] [place] [facility] [address] [id number] [place] [address] May, [facility] [place] [facility] [address] [id number], [place] [address] Apr, [facility] [place] [facility] [address] [id number] [address] Apr, [facility] [place] [facility] [address] [facility] [id number], [place] [address] Mar, [facility] [place] [facility] [address] [id number], [place] [address] Mar, [facility] [place] [facility] [address] [id number], [place] [address] Mar, [facility] [place] [facility] [address] [id number], [place] [address] Mar, [facility] [place] [facility] [address] [facility] [id number], [place] [address] Mar, [facility] [place] [facility] [address] [facility] [id number] [place] [address] September, [facility] [place] [facility] [address] [facility] [id number] [place] [address] Mar, [facility] [address] [facility] [id number], [place] [address] Dec, [facility] [address] [facility] [id number] [address] May, [facility] [address] [facility] [id number], [place] [address] May, IMMUNIZATIONS No Known Immunizations SOCIAL HISTORY Never Assessed REASON FOR VISIT Medication Change Request PLAN OF CARE VITAL SIGNS MEDICATIONS Medication Instructions Dosage Frequency Start Date End Date Duration Status Prozac 40 mg Orally Once a day 1 capsule in the morning 24h Jul, 30 days Active RESULTS No Results PROCEDURES [...]
--- OUTSIDE RECORDS SUMMARY | 2018-03-04 18:21 | XMS REPORT ---
Author Author CEDRICK BARCENAS Organization [facility] Address [address] [place] [address] Care Team Providers Care Golf Sales Associate Name Role Phone CEDRICK BARCENAS Unavailable PROBLEMS Type Condition ICD9-CM Code RJO95-SX Code Onset Dates Condition Status SNOMED Code Problem residential 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.891 Active 392138712 Problem Depression, unspecified depression type F32.9 Active 46000348 Problem Chronic pain syndrome G89.4 Active 872105403 Problem Chronic tension-type headache, intractable G44.221 Active 567065264 Problem Generalized anxiety disorder F41.1 Active 13937961 Problem Mixed hyperlipidemia E78.2 Active 487770712 Problem Hypothyroidism, unspecified E03.9 Active 38131117 Problem Major depressive disorder, recurrent episode, moderate F33.1 Active 926820818 Problem Anxiety F41.9 Active 63724215 ALLERGIES No Information ENCOUNTERS Encounter Location Date Diagnosis [facility] [id number] [place] [address] 44906- 3650 Dec, [facility] [id number] [place] [address] 31380- 6632 Oct, [facility] [id number] [place] [address] 70086- 0786 Oct, [facility] [id number] [place] [address] 46550- 6465 Oct, [facility] [address] 43254- 5642 September, Chronic pain syndrome G89.4 [facility] [id number] [place] [address] 17851- 0766 September, Depression, unspecified depression type F32.9 and Cervicalgia M54.2 [facility] [id number] [place] [address] 99479- 2431 September, Chronic pain syndrome G89.4 [facility] [id number] [place] [address] 78947- 1048 Aug, Red stool R19.5 [facility] [id number] [place] [address] 09409- 7576 Aug, Depression, unspecified depression type F32.9 ; Chronic pain syndrome G89.4 ; Chronic tension-type headache, intractable G44.221 ; Red stool R19.5 ; Hypothyroidism, unspecified E03.9 and Mixed hyperlipidemia E78.2 [facility] [id number] [place] [address] 71181- 6514 Jul, Major depressive disorder, recurrent episode, moderate F33.1 [facility] [id number] [place] [address] 76075- 4495 Jul, [facility] [address] 44042- 5602 Jul, Hypothyroidism, unspecified E03.9 [facility] [id number] [place] [address] 42487- 4645 Jul, Hypothyroidism, unspecified E03.9 [facility] [id number] [place] [address] 29373- 6556 Jul, Mixed hyperlipidemia E78.2 [facility] [id number] [place] [address] 50865- 6751 Jul, Mixed hyperlipidemia E78.2 [facility] [id number] [place] [address] 41538 -0191 08 Jul, 2017 Bronchitis J40 ; Cough R05 and Wheezing R06.2 [facility] [id number] [place] [address] 49782- 4149 07 Jul, 2017 Major depressive disorder, recurrent episode, moderate F33.1 and Generalized anxiety disorder F41.1 [facility] [address] [place] [address] 86010- 5576 Jul, [facility] [address] 55330- 2158 Jul, Major depressive disorder, recurrent episode, moderate F33.1 and Generalized anxiety disorder F41.1 [place] [facility] [address] 64697- 4739 Jul, Generalized anxiety disorder F41.1 and Major depressive disorder, recurrent episode, moderate F33.1 [facility] [address] 04422- 7632 Jul, Mixed hyperlipidemia E78.2 [facility] [address] 67728- 7354 Jun, Depression, unspecified depression type F32.9 ; Cervicalgia M54.2 ; Trigger point M79.1 ; Hypothyroidism, unspecified E03.9 ; Screening, lipid Z13.220 and Mixed hyperlipidemia E78.2 [facility] [id number] [place] [address] 86356- 4831 Jun, [facility] [address] 99237- 5673 May, [facility] [address] 48872- 5517 Apr, Acute bronchitis due to other specified organisms J20.8 and Tobacco abuse counseling Z71.6 [facility] [id number] [place] [address] 30238- 0767 Mar, Depression, unspecified depression type F32.9 [facility] [id number] [place] [address] 43276- 6701 Jan, Chronic pain syndrome G89.4 [facility] [id number] [place] [address] 76679- 0745 Nov, Anxiety F41.9 ; Depression, unspecified depression type F32.9 and Chronic pain syndrome G89.4 [facility] [id number] [place] [address] 50299- 4251 Oct, Anxiety F41.9 and Hypothyroidism, unspecified E03.9 [facility] [id number] [place] [address] 67363 -0731 Oct, Left foot pain M79.672 and Contusion of left foot, 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 S90.32XA [facility] [address] 88259- 7299 Oct, [facility] [address] 18827- 5642 September, Cervicalgia M54.2 [facility] [address] 88435- 6131 September, [facility] [address] 95006- 9406 Aug, Cervicalgia M54.2 [facility] [id number] [place] [address] 08760- 2974 Aug, Cervicalgia M54.2 and Left arm numbness R20.0 [facility] [id number] [place] [address] 27769- 4588 Aug, [facility] [id number] [place] [address] 77908- 7060 Aug, [facility] [id number] [place] [address] 72438- 6031 Jul, [facility] [id number] [place] [address] 67920- 5645 Jul, [facility] [address] 56558- 2283 Jul, [facility] [id number] [place] [address] 99737- 6838 Jul, Acute midline low back pain without sciatica M54.5 [facility] [id number] [place] [address] 60446- 0598 Jun, Acute midline low back pain without sciatica M54.5 [facility] [id number] [place] [address] 61675- 4221 Jun, Chronic pain syndrome G89.4 and Muscle spasm M62.838 [facility] [id number] [place] [address] 71826- 0674 Jun, [facility] [id number] [place] [address] 59400- 5120 Jun, Acute midline low back pain without sciatica M54.5 [facility] [address] 37973- 5430 Jun, [facility] [id number] [place] [address] 97279- 4088 May, [facility] [address] 41053- 2438 May, Hypothyroidism, unspecified E03.9 ; Chronic pain syndrome G89.4 ; Hyperglycemia R73.9 ; Encounter for immunization Z23 and Mixed hyperlipidemia E78.2 [facility] [id number] [place] [address] 30958- 7112 Apr, Fatigue 780.79 [facility] [id number] [place] [address] 53710- 0193 Apr, Chronic pain syndrome G89.4 [facility] [id number] [place] [address] 89269- 5578 Mar, [facility] [id number] [place] [address] 31931- 2909 Mar, Chronic pain syndrome G89.4 [facility] [id number] [place] [address] 34036- 3353 Jan, [facility] [id number] [place] [address] 82013- 6556 Dec, [facility] [address] [place] [address] 46687- 2525 Dec, Chronic pain syndrome G89.4 [facility] [id number] [place] [address] 81285- 2261 Dec, Trigger point M79.2 [facility] [id number] [place] [address] 94402- 3365 Nov, Chronic pain syndrome G89.4 [facility] [id number] [place] [address] 75486- 8528 Oct, Chronic pain syndrome G89.4 [facility] [id number] [place] [address] 20987- 2342 Oct, Irritant contact dermatitis due to detergent L24.0 [facility] [id number] [place] [address] 16243- 3080 September, Hypothyroidism, unspecified E03.9 and Depression, unspecified depression type F32.9 [facility] [id number] [place] [address] 12864- 4750 September, Chronic pain syndrome G89.4 [facility] [id number] [place] [address] 36811- 4840 Aug, [facility] [id number] [place] [address] 65417- 2508 Aug, Trigger point M79.2 [facility] [id number] [place] [address] 03028- 2395 Jul, Chronic pain syndrome G89.4 and residential 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.891 [facility] [id number] [place] [address] 29992- 4110 Jul, Chronic pain syndrome G89.4 and technician terminal and repeater 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.891 [facility] [id number] [place] [address] 51197- 9494 Jul, [facility] [facility] [address] [address]- 3632 Jul, [facility] [address] 1315 Jun, [facility] [address] [address]- 5766 May, [facility] [address] [place] [address] 219831- 4429 May, [facility] [address] [address]- 5130 May, [facility] [address] [place] [address] 513377- 0905 May, Pneumonia, organism unspecified, unspecified laterality, unspecified part of lung J18.9 [facility] [address] [address]- 3862 May, Pneumonia, organism unspecified, unspecified laterality, unspecified part of lung J18.9 [facility] [address] [address]- 5261 Apr, [facility] [address] [address]- 7639 Apr, [facility] [address] [address]- 8819 Apr, [facility] [address] [address]- 5094 Apr, [facility] [id number] [address]- 9283 Apr, [facility] [address] [address]- 7381 Apr, Epigastric pain R10.13 [facility] [id number] [address]- 9884 Mar, Tinea pedis B35.3 and Contact dermatitis and eczema due to detergents L24.0 [facility] [address] [place] [address] 33525- 9994 Mar, [facility] [id number] [place] [address] 40702- 2620 Jan, [facility] [id number] [place] [address] 74279- 6645 Jan, [facility] [id number] [place] [address] 599819- 8289 Jan, [facility] [id number] [place] [address] 41282- 3072 Dec, [facility] [id number] [place] [address] 26934- 5077 Nov, [facility] [id number] [place] [address] 59494- 4841 Nov, Fatigue 780.79 [facility] [id number] [place] [address] 00478- 4336 Nov, [facility] [id number] [place] [address] 56645- 4928 Nov, Unspecified myalgia and myositis 729.1 [facility] [facility] [id number] [place] [address] 13396- 9012 Nov, Hypercalcemia 275.42 [facility] [id number] [place] [address] 14267- 7503 Nov, Fatigue 780.79 ; Bradycardia 427.89 ; Chronic pain 338.29 and Family history of diabetes mellitus V18.0 [facility] [id number] [place] [address] 97197- 6129 Nov, Fatigue 780.79 ; Chronic pain 338.29 ; Family history of diabetes mellitus V18.0 ; Bradycardia 427.89 ; Hypothyroid 244.9 and Anxiety 300.00 [facility] [id number] [place] [address] 02554- 2979 Oct, [facility] [place] [facility] [address] [id number] [place] [address]- 8603 September, [facility] [place] [facility] [address] [id number] [place] [address]- 5507 Aug, [facility] [place] [facility] [address] [id number] [place] [address]- 4897 Aug, [facility] [place] [facility] [address] [id number] [place] [address]- 3531 Aug, [facility] [place] [facility] [address] [id number] [place] [address]- 8967 Jul, [facility] [place] [facility] [address] [id number] [place] [address]- 6739 Jul, [facility] [place] [facility] [address] [id number] [place] [address]- 7453 Jul, [facility] [place] [facility] [address] [id number] [place] [address]- 0840 Jul, [facility] [place] [facility] [address] [id number] [place] [address]- 4469 Jun, [facility] [place] [facility] [address] [id number] [place] [address]- 6904 Jun, [facility] [place] [facility] [address] [id number] [address]- 0103 Jun, [facility] [place] [facility] [address] [id number] [address]- 2249 Jun, [facility] [place] [facility] [address] [id number] [place] [address]- 0105 Jun, [facility] [place] [facility] [address] [facility] [id number] [place] [address]- 2038 Jun, [facility] [place] [facility] [address] [id number] [place] [address]- 8305 May, [facility] [place] [facility] [address] [id number] [place] [address]- 2642 May, [facility] [address] [id number] [place] [address]- 3870 May, [facility] [place] [facility] [address] [id number] [place] [address]- 1032 May, [facility] [address] [id number] [place] [address]- 0678 15 May, 2014 [facility] [place] [facility] [address] [id number] [place] [address]- 5982 15 May, 2014 [facility] [address] [id number] [place] [address]- 1977 May, [facility] [place] [facility] [address] [id number] [place] [address]- 1496 May, [facility] [place] [facility] [address] [id number] [place] [address]- 2682 May, [facility] [place] [facility] [address] [id number] [place] [address]- 4106 May, [facility] [place] [facility] [address] [id number] [place] [address]- 4011 Apr, [facility] [place] [facility] [address] [id number] [place] [address]- 6451 Apr, [facility] [place] [facility] [address] [id number] [place] [address]- 5799 Apr, [facility] [place] [facility] [address] [id number] [place] [address]- 8818 Apr, [facility] [place] [facility] [address] [id number] [place] [address]- 9931 Apr, [facility] [place] [facility] [address] [id number] [place] [address]- 1013 Apr, [facility] [place] [facility] [address] [id number] [place] [address]- 1693 18 Apr, 2014 [facility] [place] [facility] [address] [id number] [place] [address]- 8642 18 Apr, 2014 [facility] [place] [facility] [address] [id number] [place] [address]- 9023 17 Apr, 2014 [facility] [place] [facility] [address] [id number] [place] [address]- 9328 17 Apr, 2014 [facility] [place] [facility] [address] [id number] [place] [address]- 2822 Apr, [facility] [place] [facility] [address] [id number] [place] [address]- 5993 13 Apr, 2014 [facility] [place] [facility] [address] [id number] [place] [address]- 0213 11 Apr, 2014 [facility] [place] [facility] [address] [id number] [place] [address]- 0089 10 Apr, 2014 [facility] [place] [facility] [address] [id number] [place] [address]- 5335 10 Apr, 2014 [facility] [place] [facility] [address] [id number] [place] [address]- 7587 16 Mar, 2014 [facility] [place] [facility] [address] [id number] [address]- 4426 16 Mar, 2014 [facility] [place] [facility] [address] [id number] [address]- 5714 16 Mar, 2014 [facility] [place] [facility] [address] [id number] [place] [address]- 5256 16 Mar, 2014 [facility] [place] [facility] [address] [id number] [place] [address]- 7566 19 Jan, 2014 [facility] [place] [facility] [address] [id number] [place] [address]- 2625 19 Jan, 2014 [facility] [place] [facility] [address] [id number] [address]- 6576 18 Jan, 2014 [facility] [place] [facility] [address] [id number] [place] [address]- 3105 Jan, [facility] [place] [facility] [address] [id number] [place] [address]- 9124 Jan, [facility] [place] [facility] [address] [id number] [place] [address]- 9483 Jan, [facility] [place] [facility] [address] [id number] [place] [address]- 2059 Dec, [facility] [place] [facility] [address] [id number] [place] [address]- 8258 Dec, [facility] [place] [facility] [address] [id number] [place] [address]- 6233 Dec, [facility] [place] [facility] [address] [id number] [place] [address]- 9330 Dec, [facility] [place] [facility] [address] [id number] [place] [address]- 5882 Nov, [facility] [place] [facility] [address] [id number] [place] [address]- 0152 Nov, [facility] [place] [facility] [address] [id number] [place] [address]- 4385 Nov, [facility] [place] [facility] [address] [id number] [place] [address]- 0676 Nov, [facility] [place] [facility] [address] [id number] [place] [address]- 3601 Oct, [facility] [place] [facility] [address] [id number] [place] [address]- 4038 Oct, [facility] [place] [facility] [address] [id number] [place] [address]- 5841 Oct, [facility] [place] [facility] [address] [id number] [place] [address]- 9536 Oct, [facility] [place] [facility] [address] [id number] [place] [address]- 9738 Oct, [facility] [place] [facility] [address] [id number] [place] [address]- 6182 Oct, [facility] [place] [facility] [address] [id number] [place] [address]- 4977 Oct, [facility] [place] [facility] [address] [id number] [place] [address]- 2885 Oct, [facility] [place] [facility] [address] [id number] [place] [address]- 3150 Oct, [facility] [place] [facility] [address] [id number] [place] [address]- 2924 Oct, [facility] [place] [facility] [address] [id number] [place] [address]- 7751 September, [facility] [place] [facility] [address] [id number] [place] [address]- 2384 September, [facility] [place] [facility] [address] [id number] [place] [address]- 8884 September, [facility] [place] [facility] [address] [id number] [place] [address]- 8779 September, [facility] [place] [facility] [address] [id number] [place] [address]- 7844 September, [facility] [place] [facility] [address] [id number] [place] [address]- 7111 September, [facility] [place] [facility] [address] [id number] [place] [address]- 8952 September, [facility] [place] [facility] [address] [id number] [place]- 9496 September, [facility] [place] [facility] [address] [id number] [place] 6596 September, [facility] [place] [facility] [address] [id number] [place] [address]- 1678 Aug, [facility] [place] [facility] [address] [id number] [place] [address]- 8300 Aug, [facility] [place] [facility] [address] [id number] [place] [address]- 3379 Aug, [facility] [place] [facility] [address] [id number] [place] [address]- 9268 Aug, [facility] [place] [facility] [address] [id number] [place] [address]- 4692 Aug, [facility] [place] [facility] [address] [id number] [place] [address]- 2199 Aug, [facility] [place] [facility] [address] [id number] [place] [address]- 8689 Aug, [facility] [place] [facility] [address] [id number] [place] [address] Aug, [facility] [place] [facility] [address] [id number] [place] [address] Jul, [facility] [place] [facility] [address] [id number] [place] [address] Jul, [facility] [place] [facility] [address] [id number] [place] [address] Jul, [facility] [place] [facility] [address] [id number] [place] [address] Jul, [facility] [place] [facility] [address] [id number] [place] [address] Jul, [facility] [place] [facility] [address] [id number] [place] [address] Jul, [facility] [place] [facility] [address] [id number] [place] [address] Jul, [facility] [place] [facility] [address] [id number] [place] [address] Jul, [facility] [place] [facility] [address] [id number] [place] [address] Jul, [facility] [place] [facility] [address] [id number] [place] [address] 17 Jul, 2013 [facility] [place] [facility] [address] [id number] [place] [address] 17 Jul, 2013 [facility] [place] [facility] [address] [id number] [place] [address] Jul, [facility] [place] [facility] [address] [id number] [place] [address] Jul, [facility] [place] [facility] [address] [id number] [place] [address] 05 Jul, 2013 [facility] [place] [facility] [address] [id number] [place] [address] Jul, [facility] [place] [facility] [address] [id number] [place] [address]- [address] 10 Jul, 2013 [facility] [place] [facility] [address] [id number] [place] [address] Jul, [facility] [place] [facility] [address] [id number] [place] [address] Jul, [facility] [place] [facility] [address] [id number] [place] [address] Jul, [facility] [place] [facility] [address] [facility] [id number] [place] [address] Jun, [facility] [place] [facility] [address] [id number] [place] [address] Jun, [facility] [place] [facility] [address] [id number] [place] [address] May, [facility] [place] [facility] [address] [id number] [place] [address]- [address] May, [facility] [place] [facility] [address] [id number] [place] [address] 94[address] Apr, [facility] [place] [facility] [address] [id number] [place] [address] Apr, [facility] [place] [facility] [address] [id number] [place] [address] Apr, [facility] [place] [facility] [address] [id number] [place] [address] Apr, [facility] [place] [facility] [address] [id number] [place] [address] Apr, [facility] [place] [facility] [address] [id number] [place] [address] Apr, [facility] [place] [facility] [address] [id number] [place] [address] Mar, [facility] [place] [facility] [address] [id number] [place] [address] Mar, [facility] [place] [facility] [address] [id number] [place] [address] Mar, [facility] [place] [facility] [address] [id number] [place] [address] Mar, [facility] [place] [facility] [address] [id number] [place] [address] Jan, [facility] [place] [facility] [address] [id number] [place] [address] Jan, [facility] [place] [facility] [address] [id number] [place] [address] Jan, [facility] [place] [facility] [address] [id number] [place] [address] Dec, [facility] [place] [facility] [address] [id number] [place] [address] Dec, [facility] [place] [facility] [address] [id number] [place] [address] Dec, [facility] [place] [facility] [address] [id number] [place] [address] Dec, [facility] [place] [facility] [address] [id number] [place] [address] Nov, [facility] [address] [id number] [place] [address] Nov, [facility] [place] [facility] [address] [id number] [place] [address] Nov, [facility] [place] [facility] [address] [id number] [place] [address] Oct, [facility] [place] [facility] [address] [id number] [place] [address]- [address] Oct, [facility] [place] [facility] [address] [id number] [place] [address] Oct, [facility] [place] [facility] [address] [id number] [place] [address] Oct, [facility] [address] [id number] [place] [address] Oct, [facility] [place] [facility] [address] [id number] [place] [address] Oct, [facility] [place] [facility] [address] [id number] [place] [address] September, [facility] [place] [facility] [address] [id number] [place] [address] Jul, [facility] [place] [facility] [address] [id number] [place] [address] Jul, [facility] [place] [facility] [address] [id number] [place] [address] Jul, [facility] [place] [facility] [address] [id number] [place] [address] Jul, [facility] [place] [facility] [address] [id number] [place] [address] Jul, [facility] [place] [facility] [address] [id number] [place] [address] Jul, [facility] [place] [facility] [address] [id number] [place] [address] Jun, [facility] [place] [facility] [address] [id number] [place] [address] Apr, [facility] [place] [facility] [address] [id number] [place] [address] Apr, [facility] [place] [facility] [address] [id number] [place] [address] Jan, [facility] [place] [facility] [address] [id number] [place] [address] Dec, [facility] [place] [facility] [address] [id number] [place] [address] Nov, [facility] [place] [facility] [address] [id number] [place] [address] Oct, [facility] [place] [facility] [address] [id number] [place] [address] September, [facility] [place] [facility] [address] [id number] [place] [address] September, [facility] [place] [facility] [address] [id number] [place] [address] Jul, [facility] [place] [facility] [address] [id number] [place] [address] Jul, [facility] [place] [facility] [address] [id number] [place] [address] Jul, [facility] [place] [facility] [address] [id number] [place] [address] Jul, [facility] [place] [facility] [address] [id number] [place] [address] Jul, [facility] [place] [facility] [address] [id number] [place] [address] 17 Jul, 2011 [facility] [place] [facility] [address] [id number] [place] [address] 13 Jul, 2011 [facility] [place] [facility] [address] [id number] [place] [address] Jul, [facility] [place] [facility] [address] [id number] [place] [address] 08 Jul, 2011 [facility] [place] [facility] [address] [facility] [id number] [place] [address] Jul, [facility] [place] [facility] [address] [id number] [place] [address] Jun, [facility] [place] [facility] [address] [id number] [place] [address] May, [facility] [place] [facility] [address] [facility] [id number] [place] [address] May, [facility] [place] [facility] [address] [facility] [id number] [place] [address] May, [facility] [place] [facility] [address] [facility] [id number] [place] [address] Apr, [facility] [place] [facility] [address] [facility] [id number] [place] [address] Apr, [facility] [place] [facility] [address] [facility] [id number] [place] [address] Mar, [facility] [place] [facility] [address] [facility] [id number] [place] [address] Mar, [facility] [place] [facility] [address] [facility] [id number] [place] [address] Mar, [facility] [place] [facility] [address] [facility] [id number] [place] [address] Mar, [facility] [place] [facility] [address] [facility] [id number] [place] [address] 10 Mar, 2011 [facility] [place] [facility] [address] [facility] [id number] [place] [address] September, [facility] [place] [facility] [address] [facility] [id number] [place] [address] Mar, [facility] [address] [facility] [id number] [place] [address] Dec, [facility] [address] [facility] [id number] [place] [address] May, [facility] [address] [facility] [id number] [place] [address] May, IMMUNIZATIONS No Known Immunizations SOCIAL HISTORY Never Assessed REASON FOR VISIT Needs referral/LVM PLAN OF CARE VITAL SIGNS MEDICATIONS Unknown [...]
--- OUTSIDE RECORDS SUMMARY | 2018-03-04 18:22 | XMS REPORT ---
Author Author CEDRICK BARCENAS Organization [facility] Address [address] [place] [address] Care Team Providers Care Dictaphone Typist Name Role Phone CEDRICK BARCENAS Unavailable PROBLEMS Type Condition ICD9-CM Code IMQ17-IQ Code Onset Dates Condition Status SNOMED Code Problem detention 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.891 Active 818362014 Problem Depression, unspecified depression type F32.9 Active 61772743 Problem Chronic pain syndrome G89.4 Active 497154833 Problem Chronic tension-type headache, intractable G44.221 Active 218717953 Problem Generalized anxiety disorder F41.1 Active 75642357 Problem Mixed hyperlipidemia E78.2 Active 024641032 Problem Hypothyroidism, unspecified E03.9 Active 67970811 Problem Major depressive disorder, recurrent episode, moderate F33.1 Active 307571501 Problem Anxiety F41.9 Active 23562875 ALLERGIES No Information ENCOUNTERS Encounter Location Date Diagnosis [facility] [id number] [place] [address] 02637- 4294 Dec, [facility] [id number] [place] [address] 66925- 9562 Oct, [facility] [id number] [place] [address] 92591- 5771 Oct, [facility] [id number] [place] [address] 61183- 6871 Oct, [facility] [address] 51722- 9501 September, Chronic pain syndrome G89.4 [facility] [id number] [place] [address] 85978- 1931 September, Depression, unspecified depression type F32.9 and Cervicalgia M54.2 [facility] [id number] [place] [address] 56479- 8997 September, Chronic pain syndrome G89.4 [facility] [id number] [place] [address] 36537- 2109 Aug, Red stool R19.5 [facility] [id number] [place] [address] 88470- 8321 Aug, Depression, unspecified depression type F32.9 ; Chronic pain syndrome G89.4 ; Chronic tension-type headache, intractable G44.221 ; Red stool R19.5 ; Hypothyroidism, unspecified E03.9 and Mixed hyperlipidemia E78.2 [facility] [id number] [place] [address] 34378- 1564 Jul, Major depressive disorder, recurrent episode, moderate F33.1 [facility] [id number] [place] [address] 88192- 0287 Jul, [facility] [address] 73311- 6326 Jul, Hypothyroidism, unspecified E03.9 [facility] [id number] [place] [address] 85723- 7276 Jul, Hypothyroidism, unspecified E03.9 [facility] [id number] [place] [address] 82723- 7403 Jul, Mixed hyperlipidemia E78.2 [facility] [id number] [place] [address] 33140- 9211 Jul, Mixed hyperlipidemia E78.2 [facility] [id number] [place] [address] 35665 -3066 08 Jul, 2017 Bronchitis J40 ; Cough R05 and Wheezing R06.2 [facility] [id number] [place] [address] 82848- 3596 07 Jul, 2017 Major depressive disorder, recurrent episode, moderate F33.1 and Generalized anxiety disorder F41.1 [facility] [id number] [place] [address] 94762- 9983 Jul, [facility] [address] 35917- 2113 Jul, Major depressive disorder, recurrent episode, moderate F33.1 and Generalized anxiety disorder F41.1 [facility] [address] 17766- 4023 Jul, Generalized anxiety disorder F41.1 and Major depressive disorder, recurrent episode, moderate F33.1 [facility] [address] 97424- 5091 Jul, Mixed hyperlipidemia E78.2 [facility] [address] 62508- 8865 Jun, Depression, unspecified depression type F32.9 ; Cervicalgia M54.2 ; Trigger point M79.1 ; Hypothyroidism, unspecified E03.9 ; Screening, lipid Z13.220 and Mixed hyperlipidemia E78.2 [facility] [id number] [place] [address] 50341- 6203 Jun, [facility] [address] 90228- 3380 May, [facility] [address] 18931- 2560 Apr, Acute bronchitis due to other specified organisms J20.8 and Tobacco abuse counseling Z71.6 [facility] [id number] [place] [address] 36883- 6881 Mar, Depression, unspecified depression type F32.9 [facility] [id number] [place] [address] 80533- 0154 Jan, Chronic pain syndrome G89.4 [facility] [id number] [place] [address] 37706- 6188 Nov, Anxiety F41.9 ; Depression, unspecified depression type F32.9 and Chronic pain syndrome G89.4 [facility] [id number] [place] [address] 45912- 2780 Oct, Anxiety F41.9 and Hypothyroidism, unspecified E03.9 [facility] [id number] [place] [address] 22708 -7218 Oct, Left foot pain M79.672 and Contusion of left foot, 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 S90.32XA [facility] [address] 18567- 6010 Oct, [facility] [address] 59406- 2776 September, Cervicalgia M54.2 [facility] [address] 91156- 9885 September, [facility] [address] 67412- 4145 Aug, Cervicalgia M54.2 [facility] [id number] [place] [address] 26536- 8148 Aug, Cervicalgia M54.2 and Left arm numbness R20.0 [facility] [id number] [place] [address] 77314- 4797 Aug, [facility] [id number] [place] [address] 07034- 8982 Aug, [facility] [id number] [place] [address] 33159- 5624 Jul, [facility] [id number] [place] [address] 57902- 9307 Jul, [facility] [address] 27999- 7110 Jul, [facility] [id number] [place] [address] 50888- 7503 Jul, Acute midline low back pain without sciatica M54.5 [facility] [id number] [place] [address] 03300- 3648 Jun, Acute midline low back pain without sciatica M54.5 [facility] [id number] [place] [address] 29226- 1044 Jun, Chronic pain syndrome G89.4 and Muscle spasm M62.838 [facility] [id number] [place] [address] 12699- 0624 Jun, [facility] [id number] [place] [address] 94499- 1122 Jun, Acute midline low back pain without sciatica M54.5 [facility] [address] 79018- 9218 Jun, [facility] [id number] [place] [address] 25280- 0527 May, [facility] [address] 84983- 7563 May, Hypothyroidism, unspecified E03.9 ; Chronic pain syndrome G89.4 ; Hyperglycemia R73.9 ; Encounter for immunization Z23 and Mixed hyperlipidemia E78.2 [facility] [id number] [place] [address] 90281- 1814 Apr, Fatigue 780.79 [facility] [id number] [place] [address] 68728- 5890 Apr, Chronic pain syndrome G89.4 [facility] [id number] [place] [address] 50348- 9813 Mar, [facility] [id number] [place] [address] 02013- 8557 Mar, Chronic pain syndrome G89.4 [facility] [id number] [place] [address] 33357- 7227 Jan, [facility] [id number] [place] [address] 47132- 3924 Dec, [facility] [id number] [place] [address] 09140- 1684 Dec, Chronic pain syndrome G89.4 [facility] [id number] [place] [address] 09737- 8942 Dec, Trigger point M79.2 [facility] [id number] [place] [address] 66017- 6705 Nov, Chronic pain syndrome G89.4 [facility] [id number] [place] [address] 47378- 3685 Oct, Chronic pain syndrome G89.4 [facility] [id number] [place] [address] 69092- 3801 Oct, Irritant contact dermatitis due to detergent L24.0 [facility] [id number] [place] [address] 04633- 9953 September, Hypothyroidism, unspecified E03.9 and Depression, unspecified depression type F32.9 [facility] [id number] [place] [address] 80013- 4743 September, Chronic pain syndrome G89.4 [facility] [id number] [place] [address] 78081- 3856 Aug, [facility] [id number] [place] [address] 18595- 4252 Aug, Trigger point M79.2 [facility] [id number] [place] [address] 12863- 5298 Jul, Chronic pain syndrome G89.4 and detention 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.891 [facility] [id number] [place] [address] 50065- 7933 Jul, Chronic pain syndrome G89.4 and 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.891 [facility] [id number] [place] [address] 62949- 5109 Jul, [facility] [address] [address]- 9456 Jul, [facility] [address] 5356 Jun, [facility] [address] [address]- 1108 May, [facility] [id number] [place] [address] 358399- 9207 May, [facility] [address] [address]- 0815 May, [facility] [id number] [place] [address] 652472- 5197 May, Pneumonia, organism unspecified, unspecified laterality, unspecified part of lung J18.9 [facility] [id number] [address]- 7360 May, Pneumonia, organism unspecified, unspecified laterality, unspecified part of lung J18.9 [facility] [address] [address]- 0605 Apr, [facility] [address] [address]- 5745 Apr, [facility] [id number] [address]- 6423 Apr, [facility] [id number] [address]- 0546 Apr, [facility] [id number] [address]- 0492 Apr, [facility] [address] [address]- 3607 Apr, Epigastric pain R10.13 [facility] [id number] [address]- 8494 Mar, Tinea pedis B35.3 and Contact dermatitis and eczema due to detergents L24.0 [facility] [id number] [place] [address] 43511- 3836 Mar, [facility] [id number] [place] [address] 44622- 4276 Jan, [facility] [id number] [place] [address] 02871- 2798 Jan, [facility] [id number] [place] [address] 366665- 3240 Jan, [facility] [id number] [place] [address] 21531- 9824 Dec, [facility] [id number] [place] [address] 77367- 0966 Nov, [facility] [id number] [place] [address] 01125- 8215 Nov, Fatigue 780.79 [facility] [id number] [place] [address] 95486- 0716 Nov, [facility] [id number] [place] [address] 09821- 8859 Nov, Unspecified myalgia and myositis 729.1 [facility] [id number] [place] [address] 18372- 1115 Nov, Hypercalcemia 275.42 [facility] [id number] [place] [address] 97596- 5617 Nov, Fatigue 780.79 ; Bradycardia 427.89 ; Chronic pain 338.29 and Family history of diabetes mellitus V18.0 [facility] [id number] [place] [address] 08172- 5186 Nov, Fatigue 780.79 ; Chronic pain 338.29 ; Family history of diabetes mellitus V18.0 ; Bradycardia 427.89 ; Hypothyroid 244.9 and Anxiety 300.00 [facility] [id number] [place] [address] 79316- 8451 Oct, [facility] [place] [facility] [address] [id number] [place] [address]- 0598 September, [facility] [place] [facility] [address] [id number] [place] [address]- 8139 Aug, [facility] [place] [facility] [address] [id number] [place] [address]- 7422 Aug, [facility] [place] [facility] [address] [id number] [place] [address]- 9973 Aug, [facility] [place] [facility] [address] [id number] [place] [address]- 8084 Jul, [facility] [place] [facility] [address] [id number] [place] [address]- 8125 Jul, [facility] [place] [facility] [address] [id number] [place] [address]- 7870 Jul, [facility] [place] [facility] [address] [id number] [place] [address]- 0062 Jul, [facility] [place] [facility] [address] [id number] [place] [address]- 2488 Jun, [facility] [place] [facility] [address] [id number] [place] [address]- 7593 Jun, [facility] [place] [facility] [address] [id number] [address]- 8567 Jun, [facility] [place] [facility] [address] [id number] [address]- 6478 Jun, [facility] [place] [facility] [address] [id number] [place] [address]- 8444 Jun, [facility] [place] [facility] [address] [facility] [id number] [place] [address]- 0794 Jun, [facility] [place] [facility] [address] [id number] [place] [address]- 1009 May, [facility] [place] [facility] [address] [id number] [place] [address]- 4719 May, [facility] [address] [id number] [place] [address]- 5346 May, [facility] [place] [facility] [address] [id number] [place] [address]- 2876 May, [facility] [address] [id number] [place] [address]- 3700 15 May, 2014 [facility] [place] [facility] [address] [id number] [place] [address]- 3960 15 May, 2014 [facility] [address] [id number] [place] [address]- 5408 May, [facility] [place] [facility] [address] [id number] [place] [address]- 9167 May, [facility] [place] [facility] [address] [id number] [place] [address]- 7470 May, [facility] [place] [facility] [address] [id number] [place] [address]- 5943 May, [facility] [place] [facility] [address] [id number] [place] [address]- 3638 Apr, [facility] [place] [facility] [address] [id number] [place] [address]- 4990 Apr, [facility] [place] [facility] [address] [id number] [place] [address]- 6533 Apr, [facility] [place] [facility] [address] [id number] [place] [address]- 3824 Apr, [facility] [place] [facility] [address] [id number] [place] [address]- 5147 Apr, [facility] [place] [facility] [address] [id number] [place] [address]- 5665 Apr, [facility] [place] [facility] [address] [id number] [place] [address]- 4520 18 Apr, 2014 [facility] [place] [facility] [address] [id number] [place] [address]- 6625 18 Apr, 2014 [facility] [place] [facility] [address] [id number] [place] [address]- 4344 17 Apr, 2014 [facility] [place] [facility] [address] [id number] [place] [address]- 1462 17 Apr, 2014 [facility] [place] [facility] [address] [id number] [place] [address]- 7704 Apr, [facility] [place] [facility] [address] [id number] [place] [address]- 9463 13 Apr, 2014 [facility] [place] [facility] [address] [id number] [place] [address]- 4034 11 Apr, 2014 [facility] [place] [facility] [address] [id number] [place] [address]- 6841 10 Apr, 2014 [facility] [place] [facility] [address] [id number] [place] [address]- 6591 10 Apr, 2014 [facility] [place] [facility] [address] [id number] [place] [address]- 3260 16 Mar, 2014 [facility] [place] [facility] [address] [id number] [address]- 0295 16 Mar, 2014 [facility] [place] [facility] [address] [id number] [address]- 1513 16 Mar, 2014 [facility] [place] [facility] [address] [id number] [address]- 1217 16 Mar, 2014 [facility] [place] [facility] [address] [id number] [place] [address]- 6922 19 Jan, 2014 [facility] [place] [facility] [address] [id number] [place] [address]- 1633 19 Jan, 2014 [facility] [place] [facility] [address] [id number] [address]- 1589 18 Jan, 2014 [facility] [place] [facility] [address] [id number] [address]- 3087 Jan, [facility] [place] [facility] [address] [id number] [place] [address]- 7655 Jan, [facility] [place] [facility] [address] [id number] [place] [address]- 4992 Jan, [facility] [place] [facility] [address] [id number] [place] [address]- 2851 Dec, [facility] [place] [facility] [address] [id number] [place] [address]- 2863 Dec, [facility] [place] [facility] [address] [id number] [place] [address]- 2350 Dec, [facility] [place] [facility] [address] [id number] [place] [address]- 6640 Dec, [facility] [place] [facility] [address] [id number] [place] [address]- 0294 Nov, [facility] [place] [facility] [address] [id number] [place] [address]- 7082 Nov, [facility] [place] [facility] [address] [id number] [place] [address]- 3192 Nov, [facility] [place] [facility] [address] [id number] [place] [address]- 0532 Nov, [facility] [place] [facility] [address] [id number] [place] [address]- 8863 Oct, [facility] [place] [facility] [address] [id number] [place] [address]- 0630 Oct, [facility] [place] [facility] [address] [id number] [place] [address]- 2328 Oct, [facility] [place] [facility] [address] [id number] [place] [address]- 4924 Oct, [facility] [place] [facility] [address] [id number] [place] [address]- 1585 Oct, [facility] [place] [facility] [address] [id number] [place] [address]- 5283 Oct, [facility] [place] [facility] [address] [id number] [place] [address]- 9379 Oct, [facility] [place] [facility] [address] [id number] [place] [address]- 1413 Oct, [facility] [place] [facility] [address] [id number] [place] [address]- 0568 Oct, [facility] [place] [facility] [address] [id number] [place] [address]- 0674 Oct, [facility] [place] [facility] [address] [id number] [place] [address]- 9121 September, [facility] [place] [facility] [address] [id number] [place] [address]- 4087 September, [facility] [place] [facility] [address] [id number] [place] [address]- 8951 September, [facility] [place] [facility] [address] [id number] [place] [address]- 2742 September, [facility] [place] [facility] [address] [id number] [place] [address]- 3676 September, [facility] [place] [facility] [address] [id number] [place] [address]- 1627 September, [facility] [place] [facility] [address] [id number] [place] [address]- 3535 September, [facility] [place] [facility] [address] [id number] [place] 6605 September, [facility] [place] [facility] [address] [id number] [place] 1494 September, [facility] [place] [facility] [address] [id number] [place] [address]- 7973 Aug, [facility] [place] [facility] [address] [id number] [place] [address] Aug, [facility] [place] [facility] [address] [id number] [place] [address] Aug, [facility] [place] [facility] [address] [id number] [place] [address] Aug, [facility] [place] [facility] [address] [id number] [place] [address] Aug, [facility] [place] [facility] [address] [id number] [place] [address] Aug, [facility] [place] [facility] [address] [id number] [place] [address] Aug, [facility] [place] [facility] [address] [id number] [place] [address] Aug, [facility] [place] [facility] [address] [id number] [place] [address] Jul, [facility] [place] [facility] [address] [id number] [place] [address] Jul, [facility] [place] [facility] [address] [id number] [place] [address] Jul, [facility] [place] [facility] [address] [id number] [place] [address] Jul, [facility] [place] [facility] [address] [id number] [place] [address] Jul, [facility] [place] [facility] [address] [id number] [place] [address] Jul, [facility] [place] [facility] [address] [id number] [place] [address] Jul, [facility] [place] [facility] [address] [id number] [place] [address] Jul, [facility] [place] [facility] [address] [id number] [place] [address] Jul, [facility] [place] [facility] [address] [id number] [place] [address] 17 Jul, 2013 [facility] [place] [facility] [address] [id number] [place] [address] 17 Jul, 2013 [facility] [place] [facility] [address] [id number] [place] [address] Jul, [facility] [place] [facility] [address] [id number] [place] [address] Jul, [facility] [place] [facility] [address] [id number] [place] [address] 05 Jul, 2013 [facility] [place] [facility] [address] [id number] [place] [address] Jul, [facility] [place] [facility] [address] [id number] [place] [address] 10 Jul, 2013 [facility] [place] [facility] [address] [id number] [place] [address] Jul, [facility] [place] [facility] [address] [id number] [place] [address] Jul, [facility] [place] [facility] [address] [id number] [place] [address] Jul, [facility] [place] [facility] [address] [facility] [id number] [place] [address] Jun, [facility] [place] [facility] [address] [id number] [place] [address] Jun, [facility] [place] [facility] [address] [id number] [place] [address] May, [facility] [place] [facility] [address] [id number] [place] [address] May, [facility] [place] [facility] [address] [id number] [place] [address] Apr, [facility] [place] [facility] [address] [id number] [place] [address] Apr, [facility] [place] [facility] [address] [id number] [place] [address] Apr, [facility] [place] [facility] [address] [id number] [place] [address] Apr, [facility] [place] [facility] [address] [id number] [place] [address] Apr, [facility] [place] [facility] [address] [id number] [place] [address] Apr, [facility] [place] [facility] [address] [id number] [place] [address] Mar, [facility] [place] [facility] [address] [id number] [place] [address] Mar, [facility] [place] [facility] [address] [id number] [place] [address] Mar, [facility] [place] [facility] [address] [id number] [address] Mar, [facility] [place] [facility] [address] [id number] [place] [address] Jan, [facility] [place] [facility] [address] [id number] [address] Jan, [facility] [place] [facility] [address] [id number] [address] Jan, [facility] [place] [facility] [address] [id number] [address] Dec, [facility] [place] [facility] [address] [id number] [place] [address] Dec, [facility] [place] [facility] [address] [id number] [address] Dec, [facility] [place] [facility] [address] [id number] [address] Dec, [facility] [place] [facility] [address] [id number] [address] Nov, [facility] [address] [id number] [place] [address] Nov, [facility] [place] [facility] [address] [id number] [place] [address] Nov, [facility] [place] [facility] [address] [id number] [place] [address] Oct, [facility] [place] [facility] [address] [id number] [place] [address] Oct, [facility] [place] [facility] [address] [id number] [place] [address] Oct, [facility] [place] [facility] [address] [id number] [place] [address] Oct, [facility] [address] [id number] [place] [address] Oct, [facility] [place] [facility] [address] [id number] [place] [address] Oct, [facility] [place] [facility] [address] [id number] [place] [address] September, [facility] [place] [facility] [address] [id number] [place] [address] Jul, [facility] [place] [facility] [address] [id number] [place] [address] Jul, [facility] [place] [facility] [address] [id number] [place] [address] Jul, [facility] [place] [facility] [address] [id number] [place] [address] Jul, [facility] [place] [facility] [address] [id number] [place] [address] Jul, [facility] [place] [facility] [address] [id number] [place] [address] Jul, [facility] [place] [facility] [address] [id number] [place] [address] Jun, [facility] [place] [facility] [address] [id number] [place] [address] Apr, [facility] [place] [facility] [address] [id number] [place] [address] Apr, [facility] [place] [facility] [address] [id number] [place] [address] Jan, [facility] [place] [facility] [address] [id number] [place] [address] Dec, [facility] [place] [facility] [address] [id number] [place] [address] Nov, [facility] [place] [facility] [address] [id number] [place] [address] Oct, [facility] [place] [facility] [address] [id number] [place] [address] September, [facility] [place] [facility] [address] [id number] [place] [address] September, [facility] [place] [facility] [address] [id number] [place] [address] Jul, [facility] [place] [facility] [address] [id number] [place] [address] Jul, [facility] [place] [facility] [address] [id number] [place] [address] 1985 Jul, [facility] [place] [facility] [address] [id number] [place] [address] Jul, [facility] [place] [facility] [address] [id number] [place] [address] Jul, [facility] [place] [facility] [address] [id number] [place] [address] 17 Jul, 2011 [facility] [place] [facility] [address] [id number] [address] 13 Jul, 2011 [facility] [place] [facility] [address] [id number] [place] [address] Jul, [facility] [place] [facility] [address] [id number] [place] [address] 08 Jul, 2011 [facility] [place] [facility] [address] [facility] [id number] [place] [address] Jul, [facility] [place] [facility] [address] [id number] [place] [address] Jun, [facility] [place] [facility] [address] [id number] [place] [address] May, [facility] [place] [facility] [address] [facility] [id number] [place] [address] May, [facility] [place] [facility] [address] [facility] [id number] [place] [address] May, [facility] [place] [facility] [address] [facility] [id number] [place] [address] Apr, [facility] [place] [facility] [address] [facility] [id number] [place] [address] Apr, [facility] [place] [facility] [address] [facility] [id number] [place] [address] Mar, [facility] [place] [facility] [address] [facility] [id number] [address] Mar, [facility] [place] [facility] [address] [facility] [id number] [address] Mar, [facility] [place] [facility] [address] [facility] [id number] [address] Mar, [facility] [place] [facility] [address] [facility] [id number] [address] 10 Mar, 2011 [facility] [place] [facility] [address] [facility] [id number] [place] [address] September, [facility] [place] [facility] [address] [facility] [id number] [place] [address] Mar, [facility] [address] [facility] [id number] [address] Dec, [facility] [address] [facility] [id number] [place] [address] May, [facility] [address] [facility] [id number] [place] [address] May, IMMUNIZATIONS No Known Immunizations SOCIAL HISTORY Never Assessed REASON FOR VISIT Order from Result PLAN OF CARE VITAL SIGNS MEDICATIONS Unknown [...]
--- OUTSIDE RECORDS SUMMARY | 2018-03-04 18:22 | XMS REPORT ---
Author Author CEDRICK BARCENAS Organization [facility] Address [address] [place] [address] Care Team Providers Care Completion Engineer Name Role Phone CEDRICK BARCENAS Unavailable PROBLEMS Type Condition ICD9-CM Code VGO09-[place] Code Onset Dates Condition Status SNOMED Code Problem USP 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.891 Active 676779179 Problem Depression, unspecified depression type F32.9 Active 63011403 Problem Chronic pain syndrome G89.4 Active 695591929 Problem Chronic tension-type headache, intractable G44.221 Active 970190555 Problem Generalized anxiety disorder F41.1 Active 79744353 Problem Mixed hyperlipidemia E78.2 Active 279727522 Problem Hypothyroidism, unspecified E03.9 Active 68304658 Problem Major depressive disorder, recurrent episode, moderate F33.1 Active 624091720 Problem Anxiety F41.9 Active 82485127 ALLERGIES No Information ENCOUNTERS Encounter Location Date Diagnosis [facility] [id number] [place] [address] 33422- 7986 Dec, [facility] [id number] [place] [address] 65214- 9884 Oct, [facility] [id number] [place] [address] 20275- 3544 Oct, [facility] [id number] [place] [address] 92725- 6329 Oct, [facility] [address] 05256- 6042 September, Chronic pain syndrome G89.4 [facility] [id number] [place] [address] 97523- 0059 September, Depression, unspecified depression type F32.9 and Cervicalgia M54.2 [place] [facility] [id number] [place] [address] 89380- 4140 September, Chronic pain syndrome G89.4 [place] [facility] [id number] [place] [address] 91837- 5893 Aug, Red stool R19.5 [place] [facility] [id number] [place] [address] 49144- 3366 Aug, Depression, unspecified depression type F32.9 ; Chronic pain syndrome G89.4 ; Chronic tension-type headache, intractable G44.221 ; Red stool R19.5 ; Hypothyroidism, unspecified E03.9 and Mixed hyperlipidemia E78.2 [place] [id number] [place] [address] 23814- 8722 Jul, Major depressive disorder, recurrent episode, moderate F33.1 [place] [id number] [place] [address] 87761- 3643 Jul, [place] [address] 81730- 4737 Jul, Hypothyroidism, unspecified E03.9 [place] [id number] [place] [address] 77578- 4663 Jul, Hypothyroidism, unspecified E03.9 [place] [facility] [id number] [place] [address] 47684- 6330 Jul, Mixed hyperlipidemia E78.2 [place] [id number] [place] [address] 62400- 0222 Jul, Mixed hyperlipidemia E78.2 [facility] [id number] [place] [address] 00971 -0342 08 Jul, 2017 Bronchitis J40 ; Cough R05 and Wheezing R06.2 [place] [id number] [place] [address] 05094- 9756 07 Jul, 2017 Major depressive disorder, recurrent episode, moderate F33.1 and Generalized anxiety disorder F41.1 [place] [id number] [place] [address] 24996- 6579 Jul, [place] [address] 00451- 2709 Jul, Major depressive disorder, recurrent episode, moderate F33.1 and Generalized anxiety disorder F41.1 [place] [address] 44103- 7264 Jul, Generalized anxiety disorder F41.1 and Major depressive disorder, recurrent episode, moderate F33.1 [place] [address] 25477- 2890 Jul, Mixed hyperlipidemia E78.2 [place] [address] 27908- 0795 Jun, Depression, unspecified depression type F32.9 ; Cervicalgia M54.2 ; Trigger point M79.1 ; Hypothyroidism, unspecified E03.9 ; Screening, lipid Z13.220 and Mixed hyperlipidemia E78.2 [place] [id number] [place] [address] 23355- 4738 Jun, [place] [address] 00032- 8312 May, [place] [address] 27162- 2761 Apr, Acute bronchitis due to other specified organisms J20.8 and Tobacco abuse counseling Z71.6 [place] [id number] [place] [address] 55276- 4756 Mar, Depression, unspecified depression type F32.9 [place] [id number] [place] [address] 41164- 9629 Jan, Chronic pain syndrome G89.4 [place] [id number] [place] [address] 08836- 6179 Nov, Anxiety F41.9 ; Depression, unspecified depression type F32.9 and Chronic pain syndrome G89.4 [facility] [id number] [place] [address] 56631- 3188 Oct, Anxiety F41.9 and Hypothyroidism, unspecified E03.9 [facility] [id number] [place] [address] 84712 -3732 Oct, Left foot pain M79.672 and Contusion of left foot, 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 S90.32XA [facility] [address] 55559- 5327 Oct, [facility] [address] 59583- 0345 September, Cervicalgia M54.2 [facility] [address] 46469- 1119 September, [facility] [address] 80849- 3861 Aug, Cervicalgia M54.2 [facility] [id number] [place] [address] 47280- 1121 Aug, Cervicalgia M54.2 and Left arm numbness R20.0 [facility] [id number] [place] [address] 17279- 2034 Aug, [facility] [id number] [place] [address] 23388- 0077 Aug, [facility] [id number] [place] [address] 92504- 8875 Jul, [facility] [id number] [place] [address] 75965- 6002 Jul, [facility] [address] 18034- 1921 Jul, [facility] [id number] [place] [address] 79274- 3244 Jul, Acute midline low back pain without sciatica M54.5 [facility] [id number] [place] [address] 39408- 8463 Jun, Acute midline low back pain without sciatica M54.5 [facility] [id number] [place] [address] 43072- 7598 Jun, Chronic pain syndrome G89.4 and Muscle spasm M62.838 [facility] [id number] [place] [address] 48529- 7949 Jun, [facility] [id number] [place] [address] 30565- 7629 Jun, Acute midline low back pain without sciatica M54.5 [place] [address] 18305- 7809 Jun, [facility] [id number] [place] [address] 25444- 2868 May, [facility] [address] 21256- 1201 May, Hypothyroidism, unspecified E03.9 ; Chronic pain syndrome G89.4 ; Hyperglycemia R73.9 ; Encounter for immunization Z23 and Mixed hyperlipidemia E78.2 [place] [id number] [place] [address] 55234- 4652 Apr, Fatigue 780.79 [facility] [id number] [place] [address] 51521- 2419 Apr, Chronic pain syndrome G89.4 [facility] [id number] [place] [address] 11048- 3816 Mar, [facility] [id number] [place] [address] 28059- 4680 Mar, Chronic pain syndrome G89.4 [facility] [id number] [place] [address] 00319- 3969 Jan, [facility] [id number] [place] [address] 78672- 8949 Dec, [facility] [id number] [place] [address] 06949- 9613 Dec, Chronic pain syndrome G89.4 [place] [id number] [place] [address] 47974- 0066 Dec, Trigger point M79.2 [facility] [id number] [place] [address] 37214- 4433 Nov, Chronic pain syndrome G89.4 [facility] [id number] [place] [address] 70638- 2185 Oct, Chronic pain syndrome G89.4 [place] [id number] [place] [address] 02895- 0427 Oct, Irritant contact dermatitis due to detergent L24.0 [place] [id number] [place] [address] 08827- 2012 September, Hypothyroidism, unspecified E03.9 and Depression, unspecified depression type F32.9 [place] [id number] [place] [address] 16675- 1505 September, Chronic pain syndrome G89.4 [place] [id number] [place] [address] 35574- 6985 Aug, [place] [id number] [place] [address] 45145- 2521 Aug, Trigger point M79.2 [place] [id number] [place] [address] 09436- 6011 Jul, Chronic pain syndrome G89.4 and USP 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.891 [place] [id number] [place] [address] 43667- 2021 Jul, Chronic pain syndrome G89.4 and terminal gauger 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.891 [place] [id number] [place] [address] 82379- 1214 Jul, [place] [address] [address]- 2461 Jul, [facility] [address] 7357 Jun, [facility] [address] [address]- 1297 May, [facility] [id number] [place] [address] 108014- 2665 May, [facility] [address] [address]- 7886 May, [facility] [address] [place] [address] 389423- 7272 May, Pneumonia, organism unspecified, unspecified laterality, unspecified part of lung J18.9 [facility] [address] [address]- 3672 May, Pneumonia, organism unspecified, unspecified laterality, unspecified part of lung J18.9 [facility] [address] [address]- 8686 Apr, [facility] [address] [address]- 7194 Apr, [facility] [address] [address]- 8353 Apr, [facility] [address] [address]- 3137 Apr, [facility] [id number] [address]- 4992 Apr, [facility] [address] [address]- 9801 Apr, Epigastric pain R10.13 [facility] [id number] [address]- 4465 Mar, Tinea pedis B35.3 and Contact dermatitis and eczema due to detergents L24.0 [facility] [address] [place] [address] 46906- 7735 Mar, [facility] [id number] [place] [address] 31132- 6897 Jan, [facility] [id number] [place] [address] 99029- 8819 Jan, [facility] [id number] [place] [address] 417488- 9032 Jan, [facility] [id number] [place] [address] 54197- 5436 Dec, [facility] [id number] [place] [address] 81683- 6168 Nov, [facility] [id number] [place] [address] 65743- 2013 Nov, Fatigue 780.79 [facility] [id number] [place] [address] 43595- 1614 Nov, [facility] [id number] [place] [address] 31161- 5410 Nov, Unspecified myalgia and myositis 729.1 [place] [id number] [place] [address] 68552- 3313 Nov, Hypercalcemia 275.42 [place] [id number] [place] [address] 70533- 9160 Nov, Fatigue 780.79 ; Bradycardia 427.89 ; Chronic pain 338.29 and Family history of diabetes mellitus V18.0 [place] [id number] [place] [address] 30722- 3397 Nov, Fatigue 780.79 ; Chronic pain 338.29 ; Family history of diabetes mellitus V18.0 ; Bradycardia 427.89 ; Hypothyroid 244.9 and Anxiety 300.00 [facility] [id number] [place] [address] 22958- 3850 Oct, [facility] [place] [facility] [address] [id number] [place] [address]- 9059 September, [facility] [place] [facility] [address] [id number] [place] [address]- 1941 Aug, [facility] [place] [facility] [address] [id number] [place] [address]- 3428 Aug, [facility] [place] [facility] [address] [id number] [place] [address]- 5778 Aug, [facility] [place] [facility] [address] [id number] [place] [address]- 5954 Jul, [facility] [place] [facility] [address] [id number] [place] [address]- 6427 Jul, [facility] [place] [facility] [address] [id number] [place] [address]- 5203 Jul, [facility] [place] [facility] [address] [id number] [place] [address]- 1710 Jul, [facility] [place] [facility] [address] [id number] [place] [address]- 0315 Jun, [facility] [place] [facility] [address] [id number] [place] [address]- 2235 Jun, [facility] [place] [facility] [address] [id number] [address]- 2504 Jun, [facility] [place] [facility] [address] [id number] [address]- 7438 Jun, [facility] [place] [facility] [address] [id number] [place] [address]- 4967 Jun, [facility] [place] [facility] [address] [facility] [id number] [place] [address]- 7231 Jun, [facility] [place] [facility] [address] [id number] [place] [address]- 8059 May, [facility] [place] [facility] [address] [id number] [place] [address]- 2553 May, [facility] [address] [id number] [place] [address]- 3274 May, [facility] [place] [facility] [address] [id number] [place] [address]- 1773 May, [facility] [address] [id number] [place] [address]- 5124 15 May, 2014 [facility] [place] [facility] [address] [id number] [place] [address]- 0584 15 May, 2014 [facility] [address] [id number] [place] [address]- 6816 May, [facility] [place] [facility] [address] [id number] [place] [address]- 8626 May, [facility] [place] [facility] [address] [id number] [place] [address]- 8107 May, [facility] [place] [facility] [address] [id number] [place] [address]- 5019 May, [facility] [place] [facility] [address] [id number] [place] [address]- 3205 Apr, [facility] [place] [facility] [address] [id number] [place] [address]- 6158 Apr, [facility] [place] [facility] [address] [id number] [place] [address]- 4655 Apr, [facility] [place] [facility] [address] [id number] [place] [address]- 3185 Apr, [facility] [place] [facility] [address] [id number] [place] [address]- 7657 Apr, [facility] [place] [facility] [address] [id number] [place] [address]- 8664 Apr, [facility] [place] [facility] [address] [id number] [place] [address]- 6528 18 Apr, 2014 [facility] [place] [facility] [address] [id number] [place] [address]- 4638 18 Apr, 2014 [facility] [place] [facility] [address] [id number] [place] [address]- 2799 17 Apr, 2014 [facility] [place] [facility] [address] [id number] [place] [address]- 9993 17 Apr, 2014 [facility] [place] [facility] [address] [id number] [place] [address]- 6963 Apr, [facility] [place] [facility] [address] [id number] [place] [address]- 7700 13 Apr, 2014 [facility] [place] [facility] [address] [id number] [place] [address]- 1619 11 Apr, 2014 [facility] [place] [facility] [address] [id number] [place] [address]- 1683 10 Apr, 2014 [facility] [place] [facility] [address] [id number] [place] [address]- 7255 10 Apr, 2014 [facility] [place] [facility] [address] [id number] [place] [address]- 5332 16 Mar, 2014 [facility] [place] [facility] [address] [id number] [address]- 9750 16 Mar, 2014 [facility] [place] [facility] [address] [id number] [address]- 1675 16 Mar, 2014 [facility] [place] [facility] [address] [id number] [address]- 8483 16 Mar, 2014 [facility] [place] [facility] [address] [id number] [place] [address]- 5038 19 Jan, 2014 [facility] [place] [facility] [address] [id number] [place] [address]- 4422 19 Jan, 2014 [facility] [place] [facility] [address] [id number] [address]- 2756 18 Jan, 2014 [facility] [place] [facility] [address] [id number] [address]- 3092 Jan, [facility] [place] [facility] [address] [id number] [place] [address]- 3955 Jan, [facility] [place] [facility] [address] [id number] [place] [address]- 4757 Jan, [facility] [place] [facility] [address] [id number] [place] [address]- 0791 Dec, [facility] [place] [facility] [address] [id number] [place] [address]- 9436 Dec, [facility] [place] [facility] [address] [id number] [place] [address]- 6173 Dec, [facility] [place] [facility] [address] [id number] [place] [address]- 6725 Dec, [facility] [place] [facility] [address] [id number] [place] [address]- 4045 Nov, [facility] [place] [facility] [address] [id number] [place] [address]- 9880 Nov, [facility] [place] [facility] [address] [id number] [place] [address]- 6243 Nov, [facility] [place] [facility] [address] [id number] [place] [address]- 8747 Nov, [facility] [place] [facility] [address] [id number] [place] [address]- 1780 Oct, [facility] [place] [facility] [address] [id number] [place] [address]- 4670 Oct, [facility] [place] [facility] [address] [id number] [place] [address]- 8030 Oct, [facility] [place] [facility] [address] [id number] [place] [address]- 1121 Oct, [facility] [place] [facility] [address] [id number] [place] [address]- 9308 Oct, [facility] [place] [facility] [address] [id number] [place] [address]- 1527 Oct, [facility] [place] [facility] [address] [id number] [place] [address]- 6495 Oct, [facility] [place] [facility] [address] [id number] [place] [address]- 3914 Oct, [facility] [place] [facility] [address] [id number] [place] [address]- 2185 Oct, [facility] [place] [facility] [address] [id number] [place] [address]- 9129 Oct, [facility] [place] [facility] [address] [id number] [place] [address]- 0626 September, [facility] [place] [facility] [address] [id number] [place] [address]- 6428 September, [facility] [place] [facility] [address] [id number] [place] [address]- 9443 September, [facility] [place] [facility] [address] [id number] [place] [address]- 0706 September, [facility] [place] [facility] [address] [id number] [place] [address]- 2727 September, [facility] [place] [facility] [address] [id number] [place] [address]- 5981 September, [facility] [place] [facility] [address] [id number] [place] [address]- 2504 September, [facility] [place] [facility] [address] [id number] [place] September, [facility] [place] [facility] [address] [id number] [place] [address] September, [facility] [place] [facility] [address] [id number] [place] [address] Aug, [facility] [place] [facility] [address] [id number] [place] [address] Aug, [facility] [place] [facility] [address] [id number] [place] [address] Aug, [facility] [place] [facility] [address] [id number] [place] [address] Aug, [facility] [place] [facility] [address] [id number] [place] [address] Aug, [facility] [place] [facility] [address] [id number] [place] [address] Aug, [facility] [place] [facility] [address] [id number] [place] [address] Aug, [facility] [place] [facility] [address] [id number] [place] [address] Aug, [facility] [place] [facility] [address] [id number] [place] [address] Jul, [facility] [place] [facility] [address] [id number] [place] [address] Jul, [facility] [place] [facility] [address] [id number] [place] [address] Jul, [facility] [place] [facility] [address] [id number] [place] [address] Jul, [facility] [place] [facility] [address] [id number] [place] [address] Jul, [facility] [place] [facility] [address] [id number] [place] [address] Jul, [facility] [place] [facility] [address] [id number] [place] [address] Jul, [facility] [place] [facility] [address] [id number] [place] [address] Jul, [facility] [place] [facility] [address] [id number] [place] [address] Jul, [facility] [place] [facility] [address] [id number] [place] [address] 17 Jul, 2013 [facility] [place] [facility] [address] [id number] [place] [address] 17 Jul, 2013 [facility] [place] [facility] [address] [id number] [place] [address] Jul, [facility] [place] [facility] [address] [id number] [place] [address] Jul, [facility] [place] [facility] [address] [id number] [place] [address]- [address] 05 Jul, 2013 [facility] [place] [facility] [address] [id number] [place] [address] Jul, [facility] [place] [facility] [address] [id number] [place] [address] 10 Jul, 2013 [facility] [place] [facility] [address] [id number] [place] [address] Jul, [facility] [place] [facility] [address] [id number] [place] [address] Jul, [facility] [place] [facility] [address] [id number] [place] [address] Jul, [facility] [place] [facility] [address] [facility] [id number] [place] [address] Jun, [facility] [place] [facility] [address] [id number] [place] [address] Jun, [facility] [place] [facility] [address] [id number] [place] [address] May, [facility] [place] [facility] [address] [id number] [place] [address] May, [facility] [place] [facility] [address] [id number] [place] [address] Apr, [facility] [place] [facility] [address] [id number] [place] [address] Apr, [facility] [place] [facility] [address] [id number] [place] [address] Apr, [facility] [place] [facility] [address] [id number] [place] [address] Apr, [facility] [place] [facility] [address] [id number] [place] [address]- [address] Apr, [facility] [place] [facility] [address] [id number] [place] [address]- [address] Apr, [facility] [place] [facility] [address] [id number] [place] [address] Mar, [facility] [place] [facility] [address] [id number] [place] [address] Mar, [facility] [place] [facility] [address] [id number] [place] [address] Mar, [facility] [place] [facility] [address] [id number] [address] Mar, [facility] [place] [facility] [address] [id number] [place] [address] Jan, [facility] [place] [facility] [address] [id number] [address] Jan, [facility] [place] [facility] [address] [id number] [place] [address] Jan, [facility] [place] [facility] [address] [id number] [place] [address] Dec, [facility] [place] [facility] [address] [id number] [place] [address] Dec, [facility] [place] [facility] [address] [id number] [place] [address] Dec, [facility] [place] [facility] [address] [id number] [address] Dec, [facility] [place] [facility] [address] [id number] [place] [address] Nov, [facility] [address] [id number] [place] [address] Nov, [facility] [place] [facility] [address] [id number] [place] [address] Nov, [facility] [place] [facility] [address] [id number] [place] [address] Oct, [facility] [place] [facility] [address] [id number] [place] [address] Oct, [facility] [place] [facility] [address] [id number] [place] [address] Oct, [facility] [place] [facility] [address] [id number] [place] [address] Oct, [facility] [address] [id number] [place] [address] Oct, [facility] [place] [facility] [address] [id number] [place] [address] Oct, [facility] [place] [facility] [address] [id number] [place] [address] September, [facility] [place] [facility] [address] [id number] [place] [address] Jul, [facility] [place] [facility] [address] [id number] [place] [address] Jul, [facility] [place] [facility] [address] [id number] [place] [address] Jul, [facility] [place] [facility] [address] [id number] [place] [address] Jul, [facility] [place] [facility] [address] [id number] [place] [address] Jul, [facility] [place] [facility] [address] [id number] [place] [address] Jul, [facility] [place] [facility] [address] [id number] [place] [address] Jun, [facility] [place] [facility] [address] [id number] [place] [address] Apr, [facility] [place] [facility] [address] [id number] [place] [address] Apr, [facility] [place] [facility] [address] [id number] [place] [address] Jan, [facility] [place] [facility] [address] [id number] [place] [address] Dec, [facility] [place] [facility] [address] [id number] [place] [address] Nov, [facility] [place] [facility] [address] [id number] [place] [address] Oct, [facility] [place] [facility] [address] [id number] [place] [address] September, [facility] [place] [facility] [address] [id number] [place] [address] September, [facility] [place] [facility] [address] [id number] [place] [address] 16[address] Jul, [facility] [place] [facility] [address] [id number] [place] [address] Jul, [facility] [place] [facility] [address] [id number] [place] [address] 1767 Jul, [facility] [place] [facility] [address] [id number] [place] [address] Jul, [facility] [place] [facility] [address] [id number] [place] [address] Jul, [facility] [place] [facility] [address] [id number] [place] [address] 17 Jul, 2011 [facility] [place] [facility] [address] [id number] [place] [address] 13 Jul, 2011 [facility] [place] [facility] [address] [id number] [place] [address] Jul, [facility] [place] [facility] [address] [id number] [place] [address]- [address] 08 Jul, 2011 [facility] [place] [facility] [address] [facility] [id number] [place] [address] Jul, [facility] [place] [facility] [address] [id number] [place] [address] Jun, [facility] [place] [facility] [address] [id number] [place] [address]- [address] May, [facility] [place] [facility] [address] [facility] [id number] [place] [address] May, [facility] [place] [facility] [address] [facility] [id number] [place] [address]- [address] May, [facility] [place] [facility] [address] [facility] [id number] [place] [address] Apr, [facility] [place] [facility] [address] [facility] [id number] [place] [address] Apr, [facility] [place] [facility] [address] [facility] [id number] [place] [address] Mar, [facility] [place] [facility] [address] [facility] [id number] [place] [address] Mar, [facility] [place] [facility] [address] [facility] [id number] [place] [address] Mar, [facility] [place] [facility] [address] [facility] [id number] [place] [address] Mar, [facility] [place] [facility] [address] [facility] [id number] [place] [address] 10 Mar, 2011 [facility] [place] [facility] [address] [facility] [id number] [place] [address] September, [facility] [place] [facility] [address] [facility] [id number] [place] [address] Mar, [facility] [address] [facility] [id number] [place] [address] Dec, [facility] [address] [facility] [id number] [place] [address] May, [facility] [address] [facility] [id number] [place] [address] May, IMMUNIZATIONS No Known Immunizations SOCIAL HISTORY Never Assessed REASON FOR VISIT lab PLAN OF CARE VITAL SIGNS MEDICATIONS Unknown Medications RESULTS No Results PROCEDURES Procedure Date Ordered Result Body Site ASSAY THYROID STIM HORMONE August 12, 2017 ASSAY OF FREE THYROXINE August 12, 2017 INSTRUCTIONS MEDICATIONS ADMINISTERED No Known Medications [...]
--- OUTSIDE RECORDS SUMMARY | 2018-03-04 18:23 | XMS REPORT ---
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 Active 348157615 Problem Depression, unspecified depression type F32.9 Active 59454044 Problem Chronic pain syndrome G89.4 Active 950922923 Problem Chronic tension-type headache, intractable G44.221 Active 345457366 Problem Generalized anxiety disorder F41.1 Active 63842097 Problem Mixed hyperlipidemia E78.2 Active 503639308 Problem Hypothyroidism, unspecified E03.9 Active 86008832 Problem Major depressive disorder, recurrent episode, moderate F33.1 Active 578662788 Problem Anxiety F41.9 Active 26721420 ALLERGIES No Information ENCOUNTERS Encounter Location Date Diagnosis [place] [id number] 64272- 5685 Dec, [place] [address] [place] [id number] [place] [address] 80285- 5734 Oct, [place] [address] 05049- 9943 Oct, [facility] [address] [id number] [place] [address] 99338- 4415 Oct, [place] [address] 36830- 7709 September, Chronic pain syndrome G89.4 [facility] [id number] [place] [address] 17978- 5309 September, Depression, unspecified depression type F32.9 and Cervicalgia M54.2 [place] [address] [id number] [place] [address] 71798- 2306 September, Chronic pain syndrome G89.4 [facility] [address] 91520- 7845 Aug, Red stool R19.5 [place] [address] 853631- 1986 Aug, Depression, unspecified depression type F32.9 ; Chronic pain syndrome G89.4 ; Chronic tension-type headache, intractable G44.221 ; Red stool R19.5 ; Hypothyroidism, unspecified E03.9 and Mixed hyperlipidemia E78.2 [place] [address] 01061- 0492 Jul, Major depressive disorder, recurrent episode, moderate F33.1 [place] [address] [place] [id number] [place] [address] 26423- 7044 Jul, [place] [address] 56353- 9933 Jul, Hypothyroidism, unspecified E03.9 [place] [address] 70963- 4558 Jul, Hypothyroidism, unspecified E03.9 [place] [address] [place] [id number] [place] [address] 54687- 1587 Jul, Mixed hyperlipidemia E78.2 [facility] [address] 65151- 4002 Jul, Mixed hyperlipidemia E78.2 [facility] [id number] [place] [address] 72332 -5693 08 Jul, 2017 Bronchitis J40 ; Cough R05 and Wheezing R06.2 [facility] [address] [place] [id number] [place] [address] 47448- 9241 07 Jul, 2017 Major depressive disorder, recurrent episode, moderate F33.1 and Generalized anxiety disorder F41.1 [place] [address] [place] [address]- 7560 Jul, [place] [address] [place] [id number] [place] [address] 52119- 2027 Jul, Major depressive disorder, recurrent episode, moderate F33.1 and Generalized anxiety disorder F41.1 [place] [address] 03717- 7908 Jul, Generalized anxiety disorder F41.1 and Major depressive disorder, recurrent episode, moderate F33.1 [place] [address] 15851- 7593 Jul, Mixed hyperlipidemia E78.2 [place] [address] 38813- 1120 Jun, Depression, unspecified depression type F32.9 ; Cervicalgia M54.2 ; Trigger point M79.1 ; Hypothyroidism, unspecified E03.9 ; Screening, lipid Z13.220 and Mixed hyperlipidemia E78.2 [place] [address] 48983- 7621 Jun, [place] [address] 43851- 9197 May, [place] [address] 00326- 3622 Apr, Acute bronchitis due to other specified organisms J20.8 and Tobacco abuse counseling Z71.6 [place] [address] [place] [id number] [place] [address] 81874- 3564 Mar, Depression, unspecified depression type F32.9 [place] [address] [place] [id number] [place] [address] 67517- 3779 Jan, Chronic pain syndrome G89.4 [place] [address] 11964- 1886 Nov, Anxiety F41.9 ; Depression, unspecified depression type F32.9 and Chronic pain syndrome G89.4 [place] [address] [place] [id number] [place] [address] 37599- 0656 Oct, Anxiety F41.9 and Hypothyroidism, unspecified E03.9 [facility] [id number] [place] [address] 56980 -3222 Oct, Left foot pain M79.672 and Contusion of left foot, 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 S90.32XA [facility] [address] 83233- 8866 Oct, [facility] [address] [place] [address] [id number] [place] [address] 78419- 0217 September, Cervicalgia M54.2 [facility] [address] [place] [id number] [place] [address] 78661- 2294 September, [facility] [address] [id number] [place] [address] 93124- 0532 Aug, Cervicalgia M54.2 [facility] [address] [place] [id number] [place] [address] 61733- 8461 Aug, Cervicalgia M54.2 and Left arm numbness R20.0 [facility] [address] [place] [id number] [place] [address] 11390- 2123 Aug, [facility] [address] [place] [address] [id number] [place] [address] 05055- 8573 Aug, [facility] [address] [place] [id number] [place] [address] 28222- 2934 Jul, [facility] [address] [place] [id number] [place] [address] 02506- 2244 Jul, [facility] [address] [place] [id number] [place] [address] 23129- 0215 Jul, [facility] [address] [place] [id number] [place] [address] 65666- 7977 Jul, Acute midline low back pain without sciatica M54.5 [facility] [address] [place] [address] [id number] [place] [address] 81350- 2972 Jun, Acute midline low back pain without sciatica M54.5 [facility] [address] [place] [address] [id number] [place] [address] 13908- 8384 Jun, Chronic pain syndrome G89.4 and Muscle spasm M62.838 [facility] [address] [place] [id number] [place] [address] 06835- 2591 Jun, [facility] [address] 63717- 8556 Jun, Acute midline low back pain without sciatica M54.5 [facility] [address] 01176- 2889 Jun, [facility] [address] [place] [id number] [place] [address] 74362- 8227 May, [facility] [address] 05370- 2060 May, Hypothyroidism, unspecified E03.9 ; Chronic pain syndrome G89.4 ; Hyperglycemia R73.9 ; Encounter for immunization Z23 and Mixed hyperlipidemia E78.2 [place] [address] [place] [id number] [place] [address] 80603- 3801 Apr, Fatigue 780.79 [facility] [address] [place] [id number] [place] [address] 15631- 1198 Apr, Chronic pain syndrome G89.4 [facility] [address] [place] [id number] [place] [address] 54990- 0431 Mar, [facility] [address] [place] [id number] [place] [address] 79350- 8308 Mar, Chronic pain syndrome G89.4 [facility] [address] [place] [id number] [place] [address] 26965- 7172 Jan, [facility] [address] [place] [id number] [place] [address] 54316- 1895 Dec, [facility] [id number] [place] [address] 09669- 4481 Dec, Chronic pain syndrome G89.4 [facility] [address] [place] [id number] [place] [address] 50253- 5365 Dec, Trigger point M79.2 [facility] [address] [place] [id number] [place] [address] 26134- 7142 Nov, Chronic pain syndrome G89.4 [facility] [address] [place] [id number] [place] [address] 09512- 3443 Oct, Chronic pain syndrome G89.4 [place] [address] [place] [id number] [place] [address] 18158- 7549 Oct, Irritant contact dermatitis due to detergent L24.0 [place] [address] [place] [id number] [place] [address] 63879- 2646 September, Hypothyroidism, unspecified E03.9 and Depression, unspecified depression type F32.9 [place] [address] [place] [id number] [place] [address] 63969- 8129 September, Chronic pain syndrome G89.4 [place] [address] [place] [id number] [place] [address] 55705- 7413 Aug, [place] [address] [place] [id number] [place] [address] 32191- 4072 Aug, Trigger point M79.2 [facility] [address] [place] [id number] [place] [address] 09377- 0388 Jul, Chronic pain syndrome G89.4 and 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 [place] [address] [place] [id number] [place] [address] 14612- 9002 Jul, Chronic pain syndrome G89.4 and 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 [facility] [id number] [place] [address] 96965- 3351 Jul, [facility] [id number] [address]- 1727 Jul, [facility] [id number] [place] [address] 033409- 5732 Jun, [facility] [address] [address]- 3094 May, [facility] [id number] [place] [address] 661617- 1843 May, [facility] [id number] [place] [address] 70407- 3820 May, [facility] [address] [place] [id number] [place] [address] 425184- 9412 May, Pneumonia, organism unspecified, unspecified laterality, unspecified part of lung J18.9 [facility] [id number] [place] [address] 21112- 4170 May, Pneumonia, organism unspecified, unspecified laterality, unspecified part of lung J18.9 [facility] [address] [address]- 3164 Apr, [facility] [id number] [place] [address] 31983- 0745 Apr, [facility] [address] [address]- 7576 Apr, [facility] [id number] [place] [address] 06693- 7552 Apr, [facility] [address] [address]- 9005 Apr, [facility] [address] [place] [id number] [place] [address] 72157- 3090 Apr, Epigastric pain R10.13 [facility] [address] [address]- 0523 Mar, Tinea pedis B35.3 and Contact dermatitis and eczema due to detergents L24.0 [facility] [id number] [place] [address] 31604- 9780 Mar, [facility] [address] [place] [id number] [place] [address] 32238- 1069 Jan, [facility] [address] [place] [id number] [place] [address] 50590- 9169 Jan, [facility] [address] [place] [id number] [place] [address] 34082- 5903 Jan, [facility] [address] [place] [id number] [place] [address] 53085- 4602 Dec, [facility] [address] [place] [id number] [place] [address] 79881- 3537 Nov, [facility] [address] [place] [id number] [place] [address] 24888- 6387 Nov, Fatigue 780.79 [facility] [address] [place] [id number] [place] [address] 74668- 3879 Nov, [facility] [address] [place] [id number] [place] [address] 38387- 8137 Nov, Unspecified myalgia and myositis 729.1 [place] [address] [place] [id number] [place] [address] 78879- 1583 Nov, Hypercalcemia 275.42 [facility] [address] [place] [id number] [place] [address] 28663- 4416 Nov, Fatigue 780.79 ; Bradycardia 427.89 ; Chronic pain 338.29 and Family history of diabetes mellitus V18.0 [place] [address] [place] [id number] [place] [address] 59726- 7171 Nov, Fatigue 780.79 ; Chronic pain 338.29 ; Family history of diabetes mellitus V18.0 ; Bradycardia 427.89 ; Hypothyroid 244.9 and Anxiety 300.00 [facility] [address] [place] [id number] [place] [address] 96436- 5234 Oct, [facility] [place] [facility] [address] [id number] [place] [address]- 4923 September, [facility] [place] [facility] [address] [id number] [place] [address]- 1825 Aug, [facility] [place] [facility] [address] [id number] [place] [address]- 9837 Aug, [facility] [place] [facility] [address] [id number] [place] [address]- 6983 Aug, [facility] [place] [facility] [address] [id number] [place] [address]- 5001 Jul, [facility] [place] [facility] [address] [id number] [place] [address]- 3890 Jul, [facility] [place] [facility] [address] [facility] [id number] [place] [address]- 9080 Jul, [facility] [place] [facility] [address] [id number] [place] [address]- 9652 Jul, [facility] [place] [facility] [address] [id number] [place] [address]- 9864 Jun, [facility] [place] [facility] [address] [id number] [place] [address]- 6905 Jun, [facility] [place] [facility] [address] [id number] [place] [address]- 0825 Jun, [facility] [place] [facility] [address] [id number] [address]- 5142 Jun, [facility] [place] [facility] [address] [id number] [place] [address]- 2826 Jun, [facility] [place] [facility] [address] [id number] [place] [address]- 2628 Jun, [facility] [place] [facility] [address] [id number] [place] [address]- 8774 May, [facility] [place] [facility] [address] [id number] [place] [address]- 7496 May, [facility] [place] [facility] [address] [id number] [place] [address]- 9460 May, [facility] [place] [facility] [address] [id number] [place] [address]- 3755 May, [facility] [place] [facility] [address] [id number] [place] [address]- 4089 15 May, 2014 [facility] [place] [facility] [address] [id number] [place] [address]- 0622 15 May, 2014 [facility] [place] [facility] [address] [id number] [place] [address]- 0740 May, [facility] [place] [facility] [address] [id number] [place] [address]- 3005 May, [facility] [place] [facility] [address] [id number] [place] [address]- 3100 May, [facility] [place] [facility] [address] [id number] [place] [address]- 0482 May, [facility] [place] [facility] [address] [id number] [place] [address]- 6660 Apr, [facility] [place] [facility] [address] [id number] [place] [address]- 3789 Apr, [facility] [place] [facility] [address] [id number] [place] [address]- 5046 Apr, [facility] [place] [facility] [address] [id number] [place] [address]- 7325 Apr, [facility] [place] [facility] [address] [id number] [place] [address]- 6380 Apr, [facility] [place] [facility] [address] [id number] [place] [address]- 5115 Apr, [facility] [place] [facility] [address] [id number] [place] [address]- 6178 18 Apr, 2014 [facility] [place] [facility] [address] [id number] [place] [address]- 9333 18 Apr, 2014 [facility] [place] [facility] [address] [id number] [place] [address]- 0930 17 Apr, 2014 [facility] [place] [facility] [address] [id number] [place] [address]- 6255 17 Apr, 2014 [facility] [place] [facility] [address] [id number] [place] [address]- 2075 Apr, [facility] [place] [facility] [address] [id number] [place] [address]- 5454 13 Apr, 2014 [facility] [place] [facility] [address] [id number] [place] [address]- 8376 11 Apr, 2014 [facility] [place] [facility] [address] [id number] [place] [address]- 1904 10 Apr, 2014 [facility] [place] [facility] [address] [id number] [place] [address]- 6963 10 Apr, 2014 [facility] [place] [facility] [address] [id number] [place] [address]- 9683 16 Mar, 2014 [facility] [place] [facility] [address] [id number] [place] [address]- 2625 16 Mar, 2014 [facility] [place] [facility] [address] [id number] [place] [address]- 1820 16 Mar, 2014 [facility] [place] [facility] [address] [id number] [place] [address]- 1143 16 Mar, 2014 [facility] [place] [facility] [address] [id number] [place] [address]- 4428 19 Jan, 2014 [facility] [place] [facility] [address] [id number] [place] [address]- 3186 19 Jan, 2014 [facility] [place] [facility] [address] [id number] [place] [address]- 1248 18 Jan, 2014 [facility] [place] [facility] [address] [id number] [place] [address]- 7877 Jan, [facility] [place] [facility] [address] [id number] [place] [address]- 7092 Jan, [facility] [place] [facility] [address] [id number] [place] [address]- 1254 Jan, [facility] [place] [facility] [address] [id number] [place] [address]- 0791 Dec, [facility] [place] [facility] [address] [id number] [place] [address]- 0456 Dec, [facility] [place] [facility] [address] [id number] [place] [address]- 0174 Dec, [facility] [place] [facility] [address] [id number] [place] [address]- 8861 Dec, [facility] [place] [facility] [address] [id number] [place] [address]- 7247 Nov, [facility] [place] [facility] [address] [id number] [place] [address]- 5798 Nov, [facility] [place] [facility] [address] [id number] [place] [address]- 1745 Nov, [facility] [place] [facility] [address] [id number] [place] [address]- 7578 Nov, [facility] [place] [facility] [address] [id number] [place] [address]- 1586 Oct, [facility] [place] [facility] [address] [id number] [place] [address]- 3470 Oct, [facility] [place] [facility] [address] [id number] [place] [address]- 3578 Oct, [facility] [place] [facility] [address] [id number] [place] [address]- 8006 Oct, [facility] [place] [facility] [address] [id number] [place] [address]- 7159 Oct, [facility] [place] [facility] [address] [id number] [place] [address]- 0696 16 Oct, 2013 [facility] [address] [id number] [place] [address]- 9821 Oct, [facility] [place] [facility] [address] [id number] [place] [address]- 8467 Oct, [facility] [address] [id number] [place] [address]- 8640 Oct, [facility] [place] [facility] [address] [id number] [place] [address]- 8626 Oct, [facility] [address] [id number] [place] [address]- 4463 September, [facility] [place] [facility] [address] [id number] [place] [address]- 8585 September, [facility] [address] [id number] [place] [address]- 6911 September, [facility] [address] [id number] [place] [address]- 9181 September, [facility] [place] [facility] [address] [id number] [place] [address]- 4858 September, [facility] [address] [id number] [place] [address]- 1912 September, [facility] [place] [facility] [address] [id number] [place] [address]- 3231 September, [facility] [place] [facility] [address] [id number] [place] [address]- 0013 September, [facility] [place] [facility] [address] [id number] [place] 5335 September, [facility] [place] [facility] [address] [id number] [place] [address]- 5268 Aug, [facility] [place] [facility] [address] [id number] [place] [address] Aug, [facility] [place] [facility] [address] [id number] [place] [address] Aug, [facility] [place] [facility] [address] [id number] [place] [address] Aug, [facility] [place] [facility] [address] [id number] [place] [address] Aug, [facility] [place] [facility] [address] [id number] [place] [address] Aug, [facility] [place] [facility] [address] [id number] [place] [address] Aug, [facility] [place] [facility] [address] [id number] [place] [address] Aug, [facility] [place] [facility] [address] [id number] [place] [address] Jul, [facility] [place] [facility] [address] [id number] [place] [address] Jul, [facility] [place] [facility] [address] [id number] [place] [address] Jul, [facility] [place] [facility] [address] [id number] [place] [address] Jul, [facility] [place] [facility] [address] [id number] [place] [address] Jul, [facility] [place] [facility] [address] [id number] [place] [address] Jul, [facility] [place] [facility] [address] [id number] [place] [address] Jul, [facility] [place] [facility] [address] [id number] [place] [address] Jul, [facility] [place] [facility] [address] [id number] [place] [address] Jul, [facility] [place] [facility] [address] [id number] [place] [address]- [address] 17 Jul, 2013 [facility] [place] [facility] [address] [id number] [place] [address] 17 Jul, 2013 [facility] [place] [facility] [address] [id number] [place] [address] Jul, [facility] [place] [facility] [address] [id number] [place] [address] Jul, [facility] [place] [facility] [address] [id number] [place] [address]- [address] 05 Jul, 2013 [facility] [place] [facility] [address] [id number] [place] [address] Jul, [facility] [place] [facility] [address] [id number] [place] [address]- [address] Jul, [facility] [place] [facility] [address] [id number] [place] [address]- [address] Jul, [facility] [place] [facility] [address] [id number] [place] [address] Jul, [facility] [place] [facility] [address] [id number] [place] [address] Jul, [facility] [place] [facility] [address] [id number] [place] [address] Jun, [facility] [place] [facility] [address] [id number] [place] [address] Jun, [facility] [place] [facility] [address] [id number] [place] [address] May, [facility] [place] [facility] [address] [id number] [place] [address] May, [facility] [place] [facility] [address] [id number] [place] [address] Apr, [facility] [place] [facility] [address] [id number] [place] [address] Apr, [facility] [place] [facility] [address] [id number] [place] [address] Apr, [facility] [place] [facility] [address] [id number] [place] [address] Apr, [facility] [place] [facility] [address] [id number] [place] [address] Apr, [facility] [place] [facility] [address] [id number] [place] [address] Apr, [facility] [place] [facility] [address] [id number] [place] [address] Mar, [facility] [place] [facility] [address] [id number] [place] [address] Mar, [facility] [place] [facility] [address] [id number] [place] [address] Mar, [facility] [place] [facility] [address] [id number] [place] [address] Mar, [facility] [place] [facility] [address] [id number] [place] [address] Jan, [facility] [place] [facility] [address] [id number] [place] [address] Jan, [facility] [place] [facility] [address] [id number] [place] [address] Jan, [facility] [place] [facility] [address] [id number] [place] [address] Dec, [facility] [place] [facility] [address] [id number] [place] [address] Dec, [facility] [place] [facility] [address] [id number] [place] [place] [address] Dec, [facility] [place] [facility] [address] [id number] [place] [address] Dec, [facility] [place] [facility] [address] [id number] [place] [address] Nov, [facility] [place] [facility] [address] [id number] [place] [address] Nov, [facility] [place] [facility] [address] [id number] [place] [address] Nov, [facility] [place] [facility] [address] [id number] [place] [address] Oct, [facility] [place] [facility] [address] [id number] [place] [address] Oct, [facility] [place] [facility] [address] [id number] [place] [address] Oct, [facility] [place] [facility] [address] [id number] [place] [address] Oct, [facility] [place] [facility] [address] [id number] [place] [address] Oct, [facility] [place] [facility] [address] [id number] [place] [address] Oct, [facility] [place] [facility] [address] [id number] [place] [address] September, [facility] [place] [facility] [address] [id number] [place] [address] Jul, [facility] [place] [facility] [address] [id number] [place] [address] Jul, [facility] [place] [facility] [address] [id number] [place] [address] Jul, [facility] [place] [facility] [address] [id number] [place] [address] Jul, [facility] [place] [facility] [address] [id number] [place] [address] Jul, [facility] [place] [facility] [address] [id number] [place] [address] Jul, [facility] [place] [facility] [address] [id number] [place] [address] Jun, [facility] [address] [id number] [place] [address] Apr, [facility] [place] [facility] [address] [id number] [place] [address] Apr, [facility] [address] [id number] [place] [address] Jan, [facility] [place] [facility] [address] [id number] [place] [address] Dec, [facility] [address] [id number] [place] [address] Nov, [facility] [place] [facility] [address] [id number] [place] [address] Oct, [facility] [address] [id number] [place] [address] September, [facility] [address] [id number] [place] [address] September, [facility] [address] [id number] [place] [address] Jul, [facility] [address] [id number] [place] [address] Jul, [facility] [place] [facility] [address] [id number] [place] [address] Jul, [facility] [place] [facility] [address] [id number] [place] [address] Jul, [facility] [place] [facility] [address] [id number] [place] [address] Jul, [facility] [place] [facility] [address] [id number] [place] [address] 17 Jul, 2011 [facility] [place] [facility] [address] [id number] [place] [address] 13 Jul, 2011 [facility] [place] [facility] [address] [id number] [place] [address] Jul, [facility] [place] [facility] [address] [id number] [place] [address] 08 Jul, 2011 [facility] [place] [facility] [address] [id number] [place] [address] Jul, [facility] [place] [facility] [address] [id number] [place] [address] Jun, [facility] [place] [facility] [address] [id number] [place] [address] May, [facility] [place] [facility] [address] [id number] [place] [address] May, [facility] [place] [facility] [address] [id number] [place] [address] May, [facility] [place] [facility] [address] [id number] [place] [address] Apr, [facility] [place] [facility] [address] [id number] [place] [address] Apr, [facility] [place] [facility] [address] [facility] [id number] [place] [address] Mar, [facility] [place] [facility] [address] [id number] [place] [address] Mar, [facility] [place] [facility] [address] [id number] [place] [address] Mar, [facility] [place] [facility] [address] [id number] [place] [address] Mar, [facility] [place] [facility] [address] [facility] [id number] [place] [address] Mar, [facility] [place] [facility] [address] [facility] [id number] [place] [address] September, [facility] [place] [facility] [address] [facility] [id number] [place] [address] Mar, [facility] [address] [facility] [id number] [place] [address] Dec, [facility] [address] [facility] [id number] [place] [address] May, [facility] [address] [facility] [id number] [place] [address] May, IMMUNIZATIONS No Known Immunizations SOCIAL HISTORY Never Assessed REASON FOR VISIT f/u PLAN OF CARE Activity Details Follow Up 6 Weeks Reason: VITAL SIGNS MEDICATIONS Medication Instructions Dosage Frequency Start Date End Date Duration Status Prozac 20 MG Orally Once a day 1 capsule in the morning 24h Jul, 30 days Active Oxygen Active Albuterol Sulfate (2.5 MG/3ML) 0.083% Inhalation 4 times a day 3 ml 6h May, 30 days Active Levothyroxine Sodium 125 MCG Orally Once a day 1 tablet 24h 30 days Active HydrOXYzine HCl 25 MG Orally Three times a day as needed for anxiety and sleep 1 tablet Jul, 30 days Active Simvastatin 40 mg Orally Once a day 1 tablet in the evening 24h May, Active Effexor XR 37.5 MG Orally Once a day 1 capsule with food 24h 7 days Active Neurontin 600 MG Orally 3 times a day 1 tablet 8h Aug, 30 days Active RESULTS No Results PROCEDURES [...]
--- OUTSIDE RECORDS SUMMARY | 2018-03-04 18:24 | XMS REPORT ---
Author Author SOL AYALA Organization [facility] Address [address] [place] [address] Care Team Providers Care Analytical Tech Name Role Phone SOL AYALA Unavailable PROBLEMS Type Condition ICD9-CM Code XTM79-TJ Code Onset Dates Condition Status SNOMED Code Problem longterm 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.891 Active 021383655 Problem Depression, unspecified depression type F32.9 Active 15438341 Problem Chronic pain syndrome G89.4 Active 583296018 Problem Chronic tension-type headache, intractable G44.221 Active 995564962 Problem Generalized anxiety disorder F41.1 Active 81505030 Problem Mixed hyperlipidemia E78.2 Active 917358610 Problem Hypothyroidism, unspecified E03.9 Active 53963888 Problem Major depressive disorder, recurrent episode, moderate F33.1 Active 346360867 Problem Anxiety F41.9 Active 89435172 ALLERGIES Substance Reaction Event Type Date Status Glucophage 1,000 Mg Tablet making pt feel funny Non Drug Allergy Jul, Active ENCOUNTERS Encounter Location Date Diagnosis [facility] [id number] [address] Dec, [facility] [address] [address] Oct, [facility] [id number] [place] [address] 15587- 2453 Oct, [facility] [id number] [place] [address] 79690- 6272 Oct, [facility] [id number] [place] [address] 07083- 1072 September, Chronic pain syndrome G89.4 [facility] [address] [address] September, Depression, unspecified depression type F32.9 and Cervicalgia M54.2 [facility] [facility] [id number] [place] [address] 08842- 6949 September, Chronic pain syndrome G89.4 [facility] [id number] [place] [address] 69810- 8547 Aug, Red stool R19.5 [facility] [facility] [address] 25310- 4378 Aug, Depression, unspecified depression type F32.9 ; Chronic pain syndrome G89.4 ; Chronic tension-type headache, intractable G44.221 ; Red stool R19.5 ; Hypothyroidism, unspecified E03.9 and Mixed hyperlipidemia E78.2 [place] [id number] [place] [address] 45473- 6141 Jul, Major depressive disorder, recurrent episode, moderate F33.1 [place] [facility] [address] 55512- 3189 Jul, [facility] [address] 42979- 0831 Jul, Hypothyroidism, unspecified E03.9 [facility] [id number] [place] [address] 40583- 3332 Jul, Hypothyroidism, unspecified E03.9 [facility] [facility] [address] 63807- 8214 Jul, Mixed hyperlipidemia E78.2 [place] [address] 22957- 0135 Jul, Mixed hyperlipidemia E78.2 [facility] [address] [address]67 -5259 Jul, Bronchitis J40 ; Cough R05 and Wheezing R06.2 [place] [address] 25752- 8613 Jul, Major depressive disorder, recurrent episode, moderate F33.1 and Generalized anxiety disorder F41.1 [place] [id number] [place] [address] 59005- 9887 Jul, [facility] [address] 38814- 3692 Jul, Major depressive disorder, recurrent episode, moderate F33.1 and Generalized anxiety disorder F41.1 [place] [address] 22801- 3688 Jul, Generalized anxiety disorder F41.1 and Major depressive disorder, recurrent episode, moderate F33.1 [place] [address] 03002- 5470 Jul, Mixed hyperlipidemia E78.2 [place] [address] 45220- 0681 Jun, Depression, unspecified depression type F32.9 ; Cervicalgia M54.2 ; Trigger point M79.1 ; Hypothyroidism, unspecified E03.9 ; Screening, lipid Z13.220 and Mixed hyperlipidemia E78.2 [place] [address] 75341- 0501 Jun, [facility] [address] 49817- 8848 May, [facility] [facility] [address] 28237- 3559 Apr, Acute bronchitis due to other specified organisms J20.8 and Tobacco abuse counseling Z71.6 [place] [id number] [place] [address] 90489- 5397 Mar, Depression, unspecified depression type F32.9 [place] [id number] [place] [address] 00294- 8286 Jan, Chronic pain syndrome G89.4 [place] [address] 95107- 2510 Nov, Anxiety F41.9 ; Depression, unspecified depression type F32.9 and Chronic pain syndrome G89.4 [facility] [id number] [place] [address] 77401- 4888 Oct, Anxiety F41.9 and Hypothyroidism, unspecified E03.9 [facility] [id number] [place] [address] 44249 -0113 Oct, Left foot pain M79.672 and Contusion of left foot, 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 S90.32XA [facility] [id number] [place] [address] 58020- 2086 Oct, [facility] [address] 82474- 2877 September, Cervicalgia M54.2 [facility] [id number] [place] [address] 00293- 5092 September, [facility] [id number] [place] [address] 00344- 9981 Aug, Cervicalgia M54.2 [facility] [id number] [place] [address] 39529- 4324 Aug, Cervicalgia M54.2 and Left arm numbness R20.0 [facility] [id number] [place] [address] 42953- 9402 Aug, [facility] [id number] [place] [address] 45724- 5797 Aug, [facility] [id number] [place] [address] 24950- 3468 Jul, [facility] [address] 65239- 0537 Jul, [facility] [id number] [place] [address] 73859- 9683 Jul, [facility] [address] 00879- 5798 Jul, Acute midline low back pain without sciatica M54.5 [facility] [id number] [place] [address] 64320- 2084 Jun, Acute midline low back pain without sciatica M54.5 [facility] [id number] [place] [address] 99924- 1492 Jun, Chronic pain syndrome G89.4 and Muscle spasm M62.838 [facility] [id number] [place] [address] 66117- 4489 Jun, [facility] [id number] [place] [address] 23862- 2526 Jun, Acute midline low back pain without sciatica M54.5 [facility] [id number] [place] [address] 52687- 6584 Jun, [facility] [address] 37267- 9534 May, [facility] [id number] [place] [address] 45634- 4148 May, Hypothyroidism, unspecified E03.9 ; Chronic pain syndrome G89.4 ; Hyperglycemia R73.9 ; Encounter for immunization Z23 and Mixed hyperlipidemia E78.2 [facility] [id number] [place] [address] 10858- 5432 Apr, Fatigue 780.79 [facility] [id number] [place] [address] 91807- 3514 Apr, Chronic pain syndrome G89.4 [facility] [id number] [place] [address] 01799- 6758 Mar, [facility] [address] 80890- 4903 Mar, Chronic pain syndrome G89.4 [facility] [id number] [place] [address] 66987- 6615 Jan, [facility] [id number] [address]- 2093 Dec, [facility] [id number] [place] [address] 60120- 4055 Dec, Chronic pain syndrome G89.4 [facility] [id number] [place] [address] 79187- 0619 Dec, Trigger point M79.2 [facility] [id number] [place] [address] 72888- 4573 Nov, Chronic pain syndrome G89.4 [facility] [id number] [place] [address] 06414- 7789 Oct, Chronic pain syndrome G89.4 [facility] [id number] [place] [address] 53630- 2508 Oct, Irritant contact dermatitis due to detergent L24.0 [place] [id number] [place] [address] 22670- 4440 September, Hypothyroidism, unspecified E03.9 and Depression, unspecified depression type F32.9 [place] [id number] [place] [address] 48828- 9992 September, Chronic pain syndrome G89.4 [facility] [id number] [place] [address] 99088- 9118 Aug, [facility] [id number] [place] [address] 03656- 1939 Aug, Trigger point M79.2 [facility] [id number] [place] [address] 43021- 1164 Jul, Chronic pain syndrome G89.4 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 [facility] [address] [place] [address] 53732- 2503 Jul, Chronic pain syndrome G89.4 and longterm 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.891 [facility] [id number] [address]- 1276 Jul, [facility] [address] [address]- 1376 Jul, [facility] [address] 7688 Jun, [facility] [address] [address]- 5085 May, [facility] [address] [address]- 5334 May, [facility] [id number] [place] [address] 87475- 4829 May, [facility] [address] [address]- 8432 May, Pneumonia, organism unspecified, unspecified laterality, unspecified part of lung J18.9 [facility] [address] [address]- 7982 May, Pneumonia, organism unspecified, unspecified laterality, unspecified part of lung J18.9 [facility] [address] [address]- 9415 Apr, [facility] [address] [address]- 5098 Apr, [facility] [address] [address]- 2484 Apr, [facility] [id number] [address]- 6462 Apr, [facility] [address] [address]- 8405 Apr, [facility] [address] [address]- 4792 Apr, Epigastric pain R10.13 [facility] [address] [place] [address] 24426- 5308 Mar, Tinea pedis B35.3 and Contact dermatitis and eczema due to detergents L24.0 [facility] [id number] [place] [address] 69119838- 5116 Mar, [facility] [id number] [place] [address] 863466- 5529 Jan, [facility] [id number] [place] [address] 611526- 6956 Jan, [facility] [id number] [place] [address] 039345- 3242 Jan, [facility] [id number] [place] [address] 23501- 0259 Dec, [facility] [id number] [place] [address] 05194- 6099 Nov, [facility] [id number] [place] [address] 53185- 7358 Nov, Fatigue 780.79 [place] [id number] [place] [address] 28069- 1606 Nov, [place] [id number] [place] [address] 21037- 6532 Nov, Unspecified myalgia and myositis 729.1 [place] [id number] [place] [address] 67446- 6739 Nov, Hypercalcemia 275.42 [place] [id number] [place] [address] 774114- 4296 Nov, Fatigue 780.79 ; Bradycardia 427.89 ; Chronic pain 338.29 and Family history of diabetes mellitus V18.0 [facility] [address] [place] [address] 047484- 9747 Nov, Fatigue 780.79 ; Chronic pain 338.29 ; Family history of diabetes mellitus V18.0 ; Bradycardia 427.89 ; Hypothyroid 244.9 and Anxiety 300.00 [facility] [address] [id number] [place] [address]- 8837 Oct, [facility] [place] [facility] [address] [id number] [place] [address]- 1756 September, [facility] [place] [facility] [address] [id number] [place] [address]- 0097 Aug, [facility] [place] [facility] [address] [id number] [place] [address]- 1884 Aug, [facility] [place] [facility] [address] [id number] [place] [address]- 4753 Aug, [facility] [place] [facility] [address] [id number] [place] [address]- 1141 Jul, [facility] [place] [facility] [address] [facility] [id number] [place] [address]- 2452 Jul, [facility] [place] [facility] [address] [id number] [place] [address]- 2008 Jul, [facility] [place] [facility] [address] [id number] [place] [address]- 9675 Jul, [facility] [place] [facility] [address] [facility] [id number] [address]- 1941 Jun, [facility] [place] [facility] [address] [id number] [place] [address]- 5270 Jun, [facility] [place] [facility] [address] [id number] [address]- 8127 Jun, [facility] [place] [facility] [address] [id number] [place] [address]- 5658 Jun, [facility] [place] [facility] [address] [id number] [place] [address]- 4455 Jun, [facility] [place] [facility] [address] [facility] [id number]- 6754 Jun, [facility] [place] [facility] [address] [id number] [address]- 4972 May, [facility] [place] [facility] [address] [id number] [place] [address]- 1017 May, [facility] [place] [facility] [address] [id number] [place] [address]- 3609 May, [facility] [place] [facility] [address] [id number] [place] [address]- 7003 May, [facility] [place] [facility] [address] [id number] [place] [address]- 8529 15 May, 2014 [facility] [place] [facility] [address] [id number] [place] [address]- 6247 15 May, 2014 [facility] [place] [facility] [address] [id number] [place] [address]- 4072 May, [facility] [place] [facility] [address] [id number] [place] [address]- 8618 May, [facility] [place] [facility] [address] [id number] [place] [address]- 3859 May, [facility] [place] [facility] [address] [id number] [place] [address]- 9614 May, [facility] [place] [facility] [address] [id number] [place] [address]- 0223 Apr, [facility] [place] [facility] [address] [id number] [place] [address]- 3411 Apr, [facility] [place] [facility] [address] [id number] [place] [address]- 4468 Apr, [facility] [place] [facility] [address] [id number] [place] [address]- 8577 Apr, [facility] [place] [facility] [address] [id number] [place] [address]- 5518 Apr, [facility] [place] [facility] [address] [id number] [place] [address]- 3696 Apr, [facility] [place] [facility] [address] [id number] [place] [address]- 6791 18 Apr, 2014 [facility] [place] [facility] [address] [id number] [place] [address]- 3857 18 Apr, 2014 [facility] [place] [facility] [address] [id number] [place] [address]- 8995 17 Apr, 2014 [facility] [place] [facility] [address] [id number] [place] [address]- 3795 17 Apr, 2014 [facility] [place] [facility] [address] [id number] [place] [address]- 6772 13 Apr, 2014 [facility] [place] [facility] [address] [id number] [place] [address]- 4061 13 Apr, 2014 [facility] [place] [facility] [address] [id number] [place] [address]- 4726 11 Apr, 2014 [facility] [place] [facility] [address] [id number] [place] [address]- 7319 10 Apr, 2014 [facility] [place] [facility] [address] [id number] [place] [address]- 0181 10 Apr, 2014 [facility] [place] [facility] [address] [id number] [place] [address]- 8050 16 Mar, 2014 [facility] [place] [facility] [address] [id number] [place] [address]- 2212 16 Mar, 2014 [facility] [place] [facility] [address] [id number] [place] [address]- 1117 16 Mar, 2014 [facility] [place] [facility] [address] [id number] [place] [address]- 1544 16 Mar, 2014 [facility] [place] [facility] [address] [id number] [place] [address]- 6335 19 Jan, 2014 [facility] [place] [facility] [address] [id number] [place] [address]- 2020 19 Jan, 2014 [facility] [place] [facility] [address] [id number] [place] [address]- 0769 Jan, [facility] [place] [facility] [address] [id number] [place] [address]- 8093 Jan, [facility] [place] [facility] [address] [id number] [place] [address]- 5592 Jan, [facility] [place] [facility] [address] [id number] [place] [address]- 8605 Jan, [facility] [place] [facility] [address] [id number] [place] [address]- 1875 Dec, [facility] [place] [facility] [address] [id number] [place] [address]- 6897 Dec, [facility] [place] [facility] [address] [id number] [place] [address]- 8919 Dec, [facility] [place] [facility] [address] [id number] [place] [address]- 2606 Dec, [facility] [place] [facility] [address] [id number] [place] [address]- 2332 Nov, [facility] [place] [facility] [address] [id number] [place] [address]- 2571 Nov, [facility] [place] [facility] [address] [id number] [place] [address]- 0799 Nov, [facility] [place] [facility] [address] [id number] [place] [address]- 8107 Nov, [facility] [place] [facility] [address] [id number] [place] [address]- 1147 Oct, [facility] [place] [facility] [address] [id number] [place] [address]- 0044 Oct, [facility] [place] [facility] [address] [id number] [place] [address]- 3844 Oct, [facility] [place] [facility] [address] [id number] [place] [address]- 4354 Oct, [facility] [place] [facility] [address] [id number] [place] [address]- 7604 Oct, [facility] [place] [facility] [address] [id number] [place] [address]- 4369 Oct, [facility] [place] [facility] [address] [id number] [place] [address]- 6864 Oct, [facility] [place] [facility] [address] [id number] [place] [address]- 4213 Oct, [facility] [place] [facility] [address] [id number] [place] [address]- 3464 Oct, [facility] [place] [facility] [address] [id number] [place] [address]- 2737 Oct, [facility] [place] [facility] [address] [id number] [place] [address]- 0327 September, [facility] [place] [facility] [address] [id number] [place] [address]- 4082 September, [facility] [place] [facility] [address] [id number] [place] [address]- 1272 September, [facility] [place] [facility] [address] [id number] [place] [address]- 0124 September, [facility] [place] [facility] [address] [id number] [place] [address]- 1237 September, [facility] [place] [facility] [address] [id number] [place] [address]- 2292 September, [facility] [place] [facility] [address] [id number] [place] [address]- 0515 September, [facility] [place] [facility] [address] [id number] [place] [address]- 9860 September, [facility] [place] [facility] [address] [id number] [place] [address]- 9459 September, [facility] [place] [facility] [address] [id number] [place] [address]- 7168 Aug, [facility] [place] [facility] [address] [id number] [place] [address]- 7814 Aug, [facility] [place] [facility] [address] [id number] [place] [address]- 6079 Aug, [facility] [place] [facility] [address] [id number] [place] [address]- 2566 Aug, [facility] [place] [facility] [address] [id number] [place] [address]- 3047 Aug, [facility] [place] [facility] [address] [id number] [place] [address]- 0053 Aug, [facility] [place] [facility] [address] [id number] [place] [address]- 3971 Aug, [facility] [place] [facility] [address] [id number] [place] [address]- 5700 Aug, [facility] [place] [facility] [address] [id number] [place] [address]- 7719 Jul, [facility] [place] [facility] [address] [id number] [place] [address]- 3739 Jul, [facility] [place] [facility] [address] [id number] [place] [address]- 7445 Jul, [facility] [place] [facility] [address] [id number] [place] [address] Jul, [facility] [place] [facility] [address] [id number] [place] [address] 24 Jul, 2013 [facility] [place] [facility] [address] [id number] [place] [address] Jul, [facility] [place] [facility] [address] [id number] [place] [address] Jul, [facility] [place] [facility] [address] [id number] [place] [address] 18 Jul, 2013 [facility] [place] [facility] [address] [id number] [place] [address] 18 Jul, 2013 [facility] [place] [facility] [address] [id number] [place] [address] 17 Jul, 2013 [facility] [place] [facility] [address] [id number] [place] [address] 17 Jul, 2013 [facility] [place] [facility] [address] [facility] [id number] [place] [address] Jul, [facility] [place] [facility] [address] [id number] [place] [address] 13 Jul, 2013 [facility] [place] [facility] [address] [id number] [place] [address] 05 Jul, 2013 [facility] [place] [facility] [address] [facility] [id number] [place] [address]- [address] 05 Jul, 2013 [facility] [place] [facility] [address] [facility] [id number] [place] [address] Jul, [facility] [place] [facility] [address] [id number] [place] [address] Jul, [facility] [place] [facility] [address] [id number] [place] [address] 05 Jul, 2013 [facility] [place] [facility] [address] [facility] [id number] [place] [address]- [address] 05 Jul, 2013 [facility] [place] [facility] [address] [facility] [id number] [place] [address] Jun, [facility] [place] [facility] [address] [id number] [place] [address] Jun, [facility] [place] [facility] [address] [id number] [place] [address] May, [facility] [place] [facility] [address] [id number] [place] [address] May, [facility] [place] [facility] [address] [facility] [id number] [place] [address] Apr, [facility] [place] [facility] [address] [id number] [place] [address] Apr, [facility] [place] [facility] [address] [id number] [place] [address] Apr, [facility] [place] [facility] [address] [id number] [place] [address] Apr, [facility] [place] [facility] [address] [id number] [place] [address] Apr, [facility] [place] [facility] [address] [id number] [place] [address] Apr, [facility] [place] [facility] [address] [id number] [place] [address] Mar, [facility] [place] [facility] [address] [id number] [place] [address] Mar, [facility] [place] [facility] [address] [id number] [place] [address] Mar, [facility] [place] [facility] [address] [id number] [place] [address] Mar, [facility] [place] [facility] [address] [id number] [place] [address] Jan, [facility] [place] [facility] [address] [id number] [place] [address] Jan, [facility] [place] [facility] [address] [id number] [place] [address] Jan, [facility] [place] [facility] [address] [id number] [place] [address] Dec, [facility] [place] [facility] [address] [id number] [place] [address] Dec, [facility] [place] [facility] [address] [id number] [place] [address] Dec, [facility] [place] [facility] [address] [id number] [place] [address] Dec, [facility] [place] [facility] [address] [id number] [place] [address] Nov, [facility] [place] [facility] [address] [id number] [place] [address] Nov, [facility] [place] [facility] [address] [id number] [place] [address] Nov, [facility] [place] [facility] [address] [id number] [place] [address] Oct, [facility] [place] [facility] [address] [id number] [place] [address] Oct, [facility] [place] [facility] [address] [id number] [place] [address] Oct, [facility] [place] [facility] [address] [id number] [place] [address] Oct, [facility] [place] [facility] [address] [id number] [place] [address] Oct, [facility] [place] [facility] [address] [id number] [place] [address] Oct, [facility] [place] [facility] [address] [id number] [place] [address] September, [facility] [place] [facility] [address] [id number] [place] [address] Jul, [facility] [place] [facility] [address] [id number] [place] [address] Jul, [facility] [place] [facility] [address] [id number] [place] [address] Jul, [facility] [place] [facility] [address] [id number] [place] [address] Jul, [facility] [place] [facility] [address] [id number] [place] [address] Jul, [facility] [place] [facility] [address] [id number] [place] [address] 05 Jul, 2012 [facility] [address] [id number] [place] [address] Jun, [facility] [place] [facility] [address] [id number] [place] [address] Apr, [facility] [place] [facility] [address] [id number] [place] [address] Apr, [facility] [place] [facility] [address] [id number] [place] [address] Jan, [facility] [place] [facility] [address] [id number] [place] [address] Dec, [facility] [place] [facility] [address] [id number] [place] [address] Nov, [facility] [place] [facility] [address] [id number] [place] [address] Oct, [facility] [place] [facility] [address] [id number] [place] [address] September, [facility] [place] [facility] [address] [id number] [place] [address] September, [facility] [place] [facility] [address] [id number] [place] [address] Jul, [facility] [place] [facility] [address] [id number] [place] [address] Jul, [facility] [place] [facility] [address] [id number] [place] [address] Jul, [facility] [place] [facility] [address] [id number] [place] [address] Jul, [facility] [place] [facility] [address] [id number] [place] [address] Jul, [facility] [place] [facility] [address] [id number] [place] [address] Jul, [facility] [place] [facility] [address] [id number] [place] [address] 13 Jul, 2011 [facility] [place] [facility] [address] [id number] [place] [address] Jul, [facility] [place] [facility] [address] [id number] [place] [address] 08 Jul, 2011 [facility] [place] [facility] [address] [id number] [place] [address] Jul, [facility] [place] [facility] [address] [id number] [place] [address] Jun, [facility] [place] [facility] [address] [id number] [place] [address] May, [facility] [place] [facility] [address] [facility] [id number] [place] [address] May, [facility] [place] [facility] [address] [id number] [place] [address] May, [facility] [place] [facility] [address] [facility] [id number] [place] [address] Apr, [facility] [place] [facility] [address] [facility] [id number] [place] [address] Apr, [facility] [place] [facility] [address] [id number] [place] [address] 20 Mar, 2011 [facility] [place] [facility] [address] [id number] [place] [address] 13 Mar, 2011 [facility] [place] [facility] [address] [id number] [place] [address] Mar, [facility] [place] [facility] [address] [id number] [place] [address] 13 Mar, 2011 [facility] [place] [facility] [address] [facility] [id number] [place] [address] 10 Mar, 2011 [facility] [place] [facility] [address] [facility] [id number] [place] [address] September, [facility] [address] [facility] [id number] [place] [address] Mar, [facility] [address] [facility] [id number] [place] [address] Dec, [place] [address] [facility] [id number] [place] [address] May, [place] [address] [facility] [id number] [place] [address] May, IMMUNIZATIONS Vaccine Route Administration Date Status SOLUMEDROL (UP TO 125 MG) IM Intramuscular August 06, 2017 Administered SOCIAL HISTORY Never Assessed REASON FOR VISIT possible bronchitis Pt has had a cough with chest tightness for 3 days MANAN Dutton PLAN OF CARE Activity Details Follow Up prn Reason: VITAL SIGNS Height 63 in 2017-08-06 Weight 166.6 lbs 2017-08-06 Temperature 97.8 degrees Fahrenheit 2017-08-06 Heart Rate 82 bpm 2017-08-06 Respiratory Rate 20 2017-08-06 Oximetry 97 % 2017-08-06 BMI 29.51 kg/m2 2017-08-06 Blood pressure systolic 122 mmHg 2017-08-06 Blood pressure diastolic 76 mmHg 2017-08-06 MEDICATIONS Medication Instructions Dosage Frequency Start Date End Date Duration Status Simvastatin 40 mg Orally Once a day 1 tablet in the evening 24h May, Not-Taking Prozac 20 MG Orally Once a day 1 capsule in the morning 24h Jul, 30 days Active Neurontin 600 MG Orally 3 times a day 1 tablet 8h Aug, 30 days Active Effexor XR 37.5 MG Orally Once a day 1 capsule with food 24h 7 days Active Oxygen Active Levothyroxine Sodium 125 MCG Orally Once a day 1 tablet 24h 30 days Active Cheratussin AC 100-10 MG/5ML Orally every 4 hrs 5 ml 4h Jul, Active Zithromax Tri-Eugene 500 mg Orally Once a day 1 daily as directed 24h Jul, Jul, 03 days Active Albuterol Sulfate (2.5 MG/3ML) 0.083% Inhalation 4 times a day 3 ml 6h May, 30 days Not-Taking Albuterol Sulfate (2.5 MG/3ML) 0.083% Inhalation Three times a day 3 ml as needed 8h Jul, Active HydrOXYzine HCl 25 MG Orally Three times a day as needed for anxiety and sleep 1 tablet Jul, 30 days Active RESULTS No Results PROCEDURES Procedure Date Ordered Result Body Site SOLUMEDROL (UP TO 125 MG) August 06, 2017 THER/PROPH/DIAG INJ, SC/IM August 06, 2017 INSTRUCTIONS MEDICATIONS ADMINISTERED No Known Medications [...]
--- OUTSIDE RECORDS SUMMARY | 2018-03-04 18:24 | XMS REPORT ---
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 Name Role Phone CEDRICK BARCENAS Unavailable PROBLEMS Type Condition ICD9-CM Code GFI67-AM Code Onset Dates Condition Status SNOMED Code Problem MCC 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.891 Active 615055966 Problem Depression, unspecified depression type F32.9 Active 70170617 Problem Chronic pain syndrome G89.4 Active 595518945 Problem Chronic tension-type headache, intractable G44.221 Active 772840681 Problem Generalized anxiety disorder F41.1 Active 65874995 Problem Mixed hyperlipidemia E78.2 Active 749884219 Problem Hypothyroidism, unspecified E03.9 Active 16438736 Problem Major depressive disorder, recurrent episode, moderate F33.1 Active 879524438 Problem Anxiety F41.9 Active 78069585 ALLERGIES No Information ENCOUNTERS Encounter Location Date Diagnosis [facility] [id number] [place] [address] 59712- 2717 Dec, [facility] [id number] [place] [address] 47051- 8506 Oct, [facility] [id number] [place] [address] 40692- 0287 Oct, [facility] [id number] [place] [address] 01204- 6999 Oct, [facility] [address] 06769- 5853 September, Chronic pain syndrome G89.4 [facility] [id number] [place] [address] 76810- 1773 September, Depression, unspecified depression type F32.9 and Cervicalgia M54.2 [place] [id number] [place] [address] 99188- 2456 September, Chronic pain syndrome G89.4 [place] [id number] [place] [address] 86961- 6047 Aug, Red stool R19.5 [place] [id number] [place] [address] 96804- 4717 Aug, Depression, unspecified depression type F32.9 ; Chronic pain syndrome G89.4 ; Chronic tension-type headache, intractable G44.221 ; Red stool R19.5 ; Hypothyroidism, unspecified E03.9 and Mixed hyperlipidemia E78.2 [place] [id number] [place] [address] 19890- 3853 Jul, Major depressive disorder, recurrent episode, moderate F33.1 [place] [id number] [place] [address] 50436- 4271 Jul, [place] [address] 07042- 9958 Jul, Hypothyroidism, unspecified E03.9 [place] [id number] [place] [address] 54033- 2411 Jul, Hypothyroidism, unspecified E03.9 [place] [id number] [place] [address] 22239- 0807 Jul, Mixed hyperlipidemia E78.2 [place] [id number] [place] [address] 71187- 4699 Jul, Mixed hyperlipidemia E78.2 [facility] [id number] [place] [address] 42736 -6217 08 Jul, 2017 Bronchitis J40 ; Cough R05 and Wheezing R06.2 [place] [id number] [place] [address] 79278- 5511 07 Jul, 2017 Major depressive disorder, recurrent episode, moderate F33.1 and Generalized anxiety disorder F41.1 [place] [id number] [place] [address] 51575- 5528 Jul, [place] [address] 34501- 0173 Jul, Major depressive disorder, recurrent episode, moderate F33.1 and Generalized anxiety disorder F41.1 [place] [address] 31346- 1092 Jul, Generalized anxiety disorder F41.1 and Major depressive disorder, recurrent episode, moderate F33.1 [place] [address] 40667- 3332 Jul, Mixed hyperlipidemia E78.2 [place] [address] 89798- 7733 Jun, Depression, unspecified depression type F32.9 ; Cervicalgia M54.2 ; Trigger point M79.1 ; Hypothyroidism, unspecified E03.9 ; Screening, lipid Z13.220 and Mixed hyperlipidemia E78.2 [place] [id number] [place] [address] 55993- 8965 Jun, [place] [address] 78999- 8610 May, [place] [address] 52361- 9239 Apr, Acute bronchitis due to other specified organisms J20.8 and Tobacco abuse counseling Z71.6 [place] [id number] [place] [address] 78074- 5212 Mar, Depression, unspecified depression type F32.9 [place] [id number] [place] [address] 55847- 0128 Jan, Chronic pain syndrome G89.4 [place] [id number] [place] [address] 31819- 2463 Nov, Anxiety F41.9 ; Depression, unspecified depression type F32.9 and Chronic pain syndrome G89.4 [facility] [id number] [place] [address] 06932- 4543 Oct, Anxiety F41.9 and Hypothyroidism, unspecified E03.9 [facility] [id number] [place] [address] 85439 -9428 Oct, Left foot pain M79.672 and Contusion of left foot, 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 S90.32XA [facility] [address] 39819- 4253 Oct, [facility] [address] 79202- 5734 September, Cervicalgia M54.2 [facility] [address] 23605- 8536 September, [facility] [address] 72297- 4054 Aug, Cervicalgia M54.2 [facility] [id number] [place] [address] 52804- 7868 Aug, Cervicalgia M54.2 and Left arm numbness R20.0 [facility] [id number] [place] [address] 06315- 8809 Aug, [facility] [id number] [place] [address] 90859- 6529 Aug, [facility] [id number] [place] [address] 31709- 4094 Jul, [facility] [id number] [place] [address] 17938- 0260 Jul, [facility] [address] 50578- 5052 Jul, [facility] [id number] [place] [address] 74299- 2743 Jul, Acute midline low back pain without sciatica M54.5 [facility] [id number] [place] [address] 73407- 9932 Jun, Acute midline low back pain without sciatica M54.5 [facility] [id number] [place] [address] 55474- 7366 Jun, Chronic pain syndrome G89.4 and Muscle spasm M62.838 [facility] [id number] [place] [address] 79982- 5128 Jun, [facility] [id number] [place] [address] 07403- 8959 Jun, Acute midline low back pain without sciatica M54.5 [place] [address] 42994- 1956 Jun, [facility] [id number] [place] [address] 54594- 5177 May, [facility] [address] 80917- 4350 May, Hypothyroidism, unspecified E03.9 ; Chronic pain syndrome G89.4 ; Hyperglycemia R73.9 ; Encounter for immunization Z23 and Mixed hyperlipidemia E78.2 [place] [id number] [place] [address] 05719- 2560 Apr, Fatigue 780.79 [facility] [id number] [place] [address] 03471- 5178 Apr, Chronic pain syndrome G89.4 [facility] [id number] [place] [address] 50074- 9176 Mar, [facility] [id number] [place] [address] 86869- 2611 Mar, Chronic pain syndrome G89.4 [facility] [id number] [place] [address] 84979- 2464 Jan, [facility] [id number] [place] [address] 83303- 6482 Dec, [facility] [address] [place] [address] 30936- 5408 Dec, Chronic pain syndrome G89.4 [place] [id number] [place] [address] 87886- 5614 Dec, Trigger point M79.2 [facility] [id number] [place] [address] 90250- 9421 Nov, Chronic pain syndrome G89.4 [facility] [id number] [place] [address] 07104- 2497 Oct, Chronic pain syndrome G89.4 [place] [id number] [place] [address] 11798- 5564 Oct, Irritant contact dermatitis due to detergent L24.0 [place] [id number] [place] [address] 68437- 9515 September, Hypothyroidism, unspecified E03.9 and Depression, unspecified depression type F32.9 [place] [id number] [place] [address] 62511- 7500 September, Chronic pain syndrome G89.4 [place] [id number] [place] [address] 47984- 4400 Aug, [place] [id number] [place] [address] 99455- 1467 Aug, Trigger point M79.2 [place] [id number] [place] [address] 40349- 5452 Jul, Chronic pain syndrome G89.4 and MCC 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.891 [place] [id number] [place] [address] 45463- 0895 Jul, Chronic pain syndrome G89.4 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 [place] [id number] [place] [address] 94262- 2665 Jul, [place] [address] [address]- 4521 Jul, [facility] [address] 7568 Jun, [facility] [address] [address]- 8470 May, [facility] [address] [place] [address] 023477- 3959 May, [facility] [address] [address]- 7823 May, [facility] [address] [place] [address] 618618- 9425 May, Pneumonia, organism unspecified, unspecified laterality, unspecified part of lung J18.9 [facility] [address] [address]- 6541 May, Pneumonia, organism unspecified, unspecified laterality, unspecified part of lung J18.9 [facility] [address] [address]- 7380 Apr, [facility] [address] [address]- 9103 Apr, [facility] [address] [place] [address]- 0308 Apr, [facility] [address] [address]- 8812 Apr, [facility] [id number] [address]- 8318 Apr, [facility] [address] [place] [address]- 0011 Apr, Epigastric pain R10.13 [facility] [id number] [address]- 1810 Mar, Tinea pedis B35.3 and Contact dermatitis and eczema due to detergents L24.0 [facility] [address] [place] [address] 10660- 6544 Mar, [facility] [id number] [place] [address] 63107- 2557 Jan, [facility] [id number] [place] [address] 55440- 9252 Jan, [facility] [id number] [place] [address] 135211- 8707 Jan, [facility] [id number] [place] [address] 61732- 2910 Dec, [facility] [id number] [place] [address] 22263- 3771 Nov, [facility] [id number] [place] [address] 10133- 5389 Nov, Fatigue 780.79 [facility] [id number] [place] [address] 66152- 1119 Nov, [facility] [id number] [place] [address] 48835- 3725 Nov, Unspecified myalgia and myositis 729.1 [place] [id number] [place] [address] 97687- 2078 Nov, Hypercalcemia 275.42 [place] [id number] [place] [address] 53039- 3759 Nov, Fatigue 780.79 ; Bradycardia 427.89 ; Chronic pain 338.29 and Family history of diabetes mellitus V18.0 [place] [id number] [place] [address] 73988- 9431 Nov, Fatigue 780.79 ; Chronic pain 338.29 ; Family history of diabetes mellitus V18.0 ; Bradycardia 427.89 ; Hypothyroid 244.9 and Anxiety 300.00 [facility] [id number] [place] [address] 54700- 4045 Oct, [facility] [place] [facility] [address] [id number] [place] [address]- 2789 September, [facility] [place] [facility] [address] [id number] [place] [address]- 2455 Aug, [facility] [place] [facility] [address] [id number] [place] [address]- 5323 Aug, [facility] [place] [facility] [address] [id number] [place] [address]- 4536 Aug, [facility] [place] [facility] [address] [id number] [place] [address]- 0326 Jul, [facility] [place] [facility] [address] [id number] [place] [address]- 8484 Jul, [facility] [place] [facility] [address] [id number] [place] [address]- 4254 Jul, [facility] [place] [facility] [address] [id number] [place] [address]- 8941 Jul, [facility] [place] [facility] [address] [id number] [place] [address]- 9106 Jun, [facility] [place] [facility] [address] [id number] [place] [address]- 3836 Jun, [facility] [place] [facility] [address] [id number] [address]- 5976 Jun, [facility] [place] [facility] [address] [id number], [place] [address]- 3021 Jun, [facility] [place] [facility] [address] [id number] [place] [address]- 5897 Jun, [facility] [place] [facility] [address] [facility] [id number] [place] [address]- 0826 Jun, [facility] [place] [facility] [address] [id number] [place] [address]- 2606 May, [facility] [place] [facility] [address] [id number] [place] [address]- 6055 May, [facility] [address] [id number] [place] [address]- 8807 May, [facility] [place] [facility] [address] [id number] [place] [address]- 6428 May, [facility] [address] [id number] [place] [address]- 8189 15 May, 2014 [facility] [place] [facility] [address] [id number] [place] [address]- 4344 15 May, 2014 [facility] [address] [id number] [place] [address]- 9957 May, [facility] [place] [facility] [address] [id number] [place] [address]- 0408 May, [facility] [place] [facility] [address] [id number] [place] [address]- 9328 May, [facility] [place] [facility] [address] [id number] [place] [address]- 4893 May, [facility] [place] [facility] [address] [id number] [place] [address]- 4969 Apr, [facility] [place] [facility] [address] [id number] [place] [address]- 9336 Apr, [facility] [place] [facility] [address] [id number] [place] [address]- 7506 Apr, [facility] [place] [facility] [address] [id number] [place] [address]- 2656 Apr, [facility] [place] [facility] [address] [id number] [place] [address]- 7015 Apr, [facility] [place] [facility] [address] [id number] [place] [address]- 4001 Apr, [facility] [place] [facility] [address] [id number] [place] [address]- 2446 18 Apr, 2014 [facility] [place] [facility] [address] [id number] [place] [address]- 1075 18 Apr, 2014 [facility] [place] [facility] [address] [id number] [place] [address]- 2217 17 Apr, 2014 [facility] [place] [facility] [address] [id number] [place] [address]- 4382 17 Apr, 2014 [facility] [place] [facility] [address] [id number] [place] [address]- 8604 Apr, [facility] [place] [facility] [address] [id number] [place] [address]- 7384 13 Apr, 2014 [facility] [place] [facility] [address] [id number] [place] [address]- 2459 11 Apr, 2014 [facility] [place] [facility] [address] [id number] [place] [address]- 8726 10 Apr, 2014 [facility] [place] [facility] [address] [id number] [place] [address]- 8939 10 Apr, 2014 [facility] [place] [facility] [address] [id number] [place] [address]- 4635 16 Mar, 2014 [facility] [place] [facility] [address] [id number], [place] [address]- 3703 16 Mar, 2014 [facility] [place] [facility] [address] [id number], [place] [address]- 1215 16 Mar, 2014 [facility] [place] [facility] [address] [id number], [place] [address]- 3731 16 Mar, 2014 [facility] [place] [facility] [address] [id number] [place] [address]- 0659 19 Jan, 2014 [facility] [place] [facility] [address] [id number] [place] [address]- 5242 19 Jan, 2014 [facility] [place] [facility] [address] [id number], [place] [address]- 6321 18 Jan, 2014 [facility] [place] [facility] [address] [id number], [place] [address]- 8979 Jan, [facility] [place] [facility] [address] [id number] [place] [address]- 8362 Jan, [facility] [place] [facility] [address] [id number] [place] [address]- 4578 Jan, [facility] [place] [facility] [address] [id number] [place] [address]- 2778 Dec, [facility] [place] [facility] [address] [id number] [place] [address]- 5575 Dec, [facility] [place] [facility] [address] [id number] [place] [address]- 9151 Dec, [facility] [place] [facility] [address] [id number] [place] [address]- 5007 Dec, [facility] [place] [facility] [address] [id number] [place] [address]- 2573 Nov, [facility] [place] [facility] [address] [id number] [place] [address]- 7084 Nov, [facility] [place] [facility] [address] [id number] [place] [address]- 0229 Nov, [facility] [place] [facility] [address] [id number] [place] [address]- 9154 Nov, [facility] [place] [facility] [address] [id number] [place] [address]- 7570 Oct, [facility] [place] [facility] [address] [id number] [place] [address]- 1938 Oct, [facility] [place] [facility] [address] [id number] [place] [address]- 8839 Oct, [facility] [place] [facility] [address] [id number] [place] [address]- 0243 Oct, [facility] [place] [facility] [address] [id number] [place] [address]- 1580 Oct, [facility] [place] [facility] [address] [id number] [place] [address]- 9339 Oct, [facility] [place] [facility] [address] [id number] [place] [address]- 3525 Oct, [facility] [place] [facility] [address] [id number] [place] [address]- 1385 Oct, [facility] [place] [facility] [address] [id number] [place] [address]- 4335 Oct, [facility] [place] [facility] [address] [id number] [place] [address]- 4013 Oct, [facility] [place] [facility] [address] [id number] [place] [address]- 6254 September, [facility] [place] [facility] [address] [id number] [place] [address]- 1876 September, [facility] [place] [facility] [address] [id number] [place] [address]- 6298 September, [facility] [place] [facility] [address] [id number] [place] [address]- 3065 September, [facility] [place] [facility] [address] [id number] [place] [address]- 0532 September, [facility] [place] [facility] [address] [id number] [place] [address]- 37[address] September, [facility] [place] [facility] [address] [id number] [place] [address] September, [facility] [place] [facility] [address] [id number] [place] [address] September, [facility] [place] [facility] [address] [id number] [place] [address] September, [facility] [place] [facility] [address] [id number] [place] [address] Aug, [facility] [place] [facility] [address] [id number] [place] [address] Aug, [facility] [place] [facility] [address] [id number] [place] [address] Aug, [facility] [place] [facility] [address] [id number] [place] [address] Aug, [facility] [place] [facility] [address] [id number] [place] [address] Aug, [facility] [place] [facility] [address] [id number] [place] [address] Aug, [facility] [place] [facility] [address] [id number] [place] [address] Aug, [facility] [place] [facility] [address] [id number] [place] [address] Aug, [facility] [place] [facility] [address] [id number] [place] [address] Jul, [facility] [place] [facility] [address] [id number] [place] [address] Jul, [facility] [place] [facility] [address] [id number] [place] [address] Jul, [facility] [place] [facility] [address] [id number] [place] [address] Jul, [facility] [place] [facility] [address] [id number] [place] [address] Jul, [facility] [place] [facility] [address] [id number] [place] [address] Jul, [facility] [place] [facility] [address] [id number] [place] [address] Jul, [facility] [place] [facility] [address] [id number] [place] [address] Jul, [facility] [place] [facility] [address] [id number] [place] [address] Jul, [facility] [place] [facility] [address] [id number] [place] [address] 17 Jul, 2013 [facility] [place] [facility] [address] [id number] [place] [address] 17 Jul, 2013 [facility] [place] [facility] [address] [id number] [place] [address] Jul, [facility] [place] [facility] [address] [id number] [place] [address] Jul, [facility] [place] [facility] [address] [id number] [place] [address]- [address] 05 Jul, 2013 [facility] [place] [facility] [address] [id number] [place] [address] Jul, [facility] [place] [facility] [address] [id number] [place] [address] 10 Jul, 2013 [facility] [place] [facility] [address] [id number] [place] [address] Jul, [facility] [place] [facility] [address] [id number] [place] [address] Jul, [facility] [place] [facility] [address] [id number] [place] [address] Jul, [facility] [place] [facility] [address] [facility] [id number] [place] [address] Jun, [facility] [place] [facility] [address] [id number] [place] [address] Jun, [facility] [place] [facility] [address] [id number] [place] [address] 2012 May, [facility] [place] [facility] [address] [id number] [place] [address] May, [facility] [place] [facility] [address] [id number] [place] [address] Apr, [facility] [place] [facility] [address] [id number] [place] [address] Apr, [facility] [place] [facility] [address] [id number] [place] [address] Apr, [facility] [place] [facility] [address] [id number] [place] [address] Apr, [facility] [place] [facility] [address] [id number] [place] [address] Apr, [facility] [place] [facility] [address] [id number] [place] [address] Apr, [facility] [place] [facility] [address] [id number] [place] [address] Mar, [facility] [place] [facility] [address] [id number] [place] [address] Mar, [facility] [place] [facility] [address] [id number] [place] [address] Mar, [facility] [place] [facility] [address] [id number], [place] [address] Mar, [facility] [place] [facility] [address] [id number] [place] [address] Jan, [facility] [place] [facility] [address] [id number], [place] [address] Jan, [facility] [place] [facility] [address] [id number], [place] [address] Jan, [facility] [place] [facility] [address] [id number], [place] [address] Dec, [facility] [place] [facility] [address] [id number] [place] [address] Dec, [facility] [place] [facility] [address] [id number], [place] [address] Dec, [facility] [place] [facility] [address] [id number], [place] [address] Dec, [facility] [place] [facility] [address] [id number], [place] [address] Nov, [facility] [address] [id number] [place] [address] Nov, [facility] [place] [facility] [address] [id number] [place] [address] Nov, [facility] [place] [facility] [address] [id number] [place] [address] Oct, [facility] [place] [facility] [address] [id number] [place] [address] Oct, [facility] [place] [facility] [address] [id number] [place] [address] Oct, [facility] [place] [facility] [address] [id number] [place] [address] Oct, [facility] [address] [id number] [place] [address] Oct, [facility] [place] [facility] [address] [id number] [place] [address] Oct, [facility] [place] [facility] [address] [id number] [place] [address] September, [facility] [place] [facility] [address] [id number] [place] [address] Jul, [facility] [place] [facility] [address] [id number] [place] [address] Jul, [facility] [place] [facility] [address] [id number] [place] [address] Jul, [facility] [place] [facility] [address] [id number] [place] [address] Jul, [facility] [place] [facility] [address] [id number] [place] [address] Jul, [facility] [place] [facility] [address] [id number] [place] [address] Jul, [facility] [place] [facility] [address] [id number] [place] [address] Jun, [facility] [place] [facility] [address] [id number] [place] [address] Apr, [facility] [place] [facility] [address] [id number] [place] [address] Apr, [facility] [place] [facility] [address] [id number] [place] [address] Jan, [facility] [place] [facility] [address] [id number] [place] [address] Dec, [facility] [place] [facility] [address] [id number] [place] [address] Nov, [facility] [place] [facility] [address] [id number] [place] [address] Oct, [facility] [place] [facility] [address] [id number] [place] [address] September, [facility] [place] [facility] [address] [id number] [place] [address] September, [facility] [place] [facility] [address] [id number] [place] [address] Jul, [facility] [place] [facility] [address] [id number] [place] [address] Jul, [facility] [place] [facility] [address] [id number] [place] [address] Jul, [facility] [place] [facility] [address] [id number] [place] [address] Jul, [facility] [place] [facility] [address] [id number] [place] [address] Jul, [facility] [place] [facility] [address] [id number] [place] [address] 17 Jul, 2011 [facility] [place] [facility] [address] [id number], [place] [address] 13 Jul, 2011 [facility] [place] [facility] [address] [id number] [place] [address]- [address] Jul, [facility] [place] [facility] [address] [id number] [place] [address] 08 Jul, 2011 [facility] [place] [facility] [address] [facility] [id number] [place] [address]- [address] Jul, [facility] [place] [facility] [address] [id number] [place] [address] Jun, [facility] [place] [facility] [address] [id number] [place] [address] May, [facility] [place] [facility] [address] [facility] [id number] [place] [address] May, [facility] [place] [facility] [address] [facility] [id number] [place] [address] May, [facility] [place] [facility] [address] [facility] [id number] [place] [address] Apr, [facility] [place] [facility] [address] [facility] [id number] [place] [address] Apr, [facility] [place] [facility] [address] [facility] [id number] [place] [address] Mar, [facility] [place] [facility] [address] [facility] [id number], [place] [address] Mar, [facility] [place] [facility] [address] [facility] [id number], [place] [address] Mar, [facility] [place] [facility] [address] [facility] [id number], [place] [address] Mar, [facility] [place] [facility] [address] [facility] [id number], [place] [address] 10 Mar, 2011 [facility] [place] [facility] [address] [facility] [id number], [place] [address] September, [facility] [place] [facility] [address] [facility] [id number] [place] [address] Mar, [facility] [address] [facility] [id number], [place] [address] Dec, [facility] [address] [facility] [id number], [place] [address] May, [facility] [address] [facility] [id number], [place] [address] May, IMMUNIZATIONS No Known Immunizations SOCIAL HISTORY Never Assessed REASON FOR VISIT clarification PLAN OF CARE VITAL SIGNS MEDICATIONS Medication Instructions Dosage Frequency Start Date End Date Duration Status Lipitor 40 MG Orally Once a day 1 tablet 24h Nov, Active RESULTS No Results PROCEDURES No Known [...]
--- OUTSIDE RECORDS SUMMARY | 2018-03-04 18:25 | XMS REPORT ---
Author Author CEDRICK BARCENAS Organization [facility] Address [address] [place] [address] Care Team Providers Care Vertical Contour Band Saw Operator Name Role Phone CEDRICK BARCENAS Unavailable PROBLEMS Type Condition ICD9-CM Code CKN48-OT Code Onset Dates Condition Status SNOMED Code Problem prison 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.891 Active 907919799 Problem Depression, unspecified depression type F32.9 Active 97566078 Problem Chronic pain syndrome G89.4 Active 917493434 Problem Chronic tension-type headache, intractable G44.221 Active 945268645 Problem Generalized anxiety disorder F41.1 Active 54585644 Problem Mixed hyperlipidemia E78.2 Active 937201118 Problem Hypothyroidism, unspecified E03.9 Active 32879964 Problem Major depressive disorder, recurrent episode, moderate F33.1 Active 512475926 Problem Anxiety F41.9 Active [id number] ALLERGIES No Information ENCOUNTERS Encounter Location Date Diagnosis [facility] [id number] [place] [address] 19212- 0489 Dec, [facility] [id number] [place] [address] 14023- 9282 Oct, [facility] [id number] [place] [address] 76498- 6055 Oct, [facility] [id number] [place] [address] 92188- 8877 Oct, [facility] [address] 78603- 1685 September, Chronic pain syndrome G89.4 [facility] [id number] [place] [address] 80272- 6015 September, Depression, unspecified depression type F32.9 and Cervicalgia M54.2 [facility] [id number] [place] [address] 83980- 9751 September, Chronic pain syndrome G89.4 [facility] [id number] [place] [address] 69869- 2038 Aug, Red stool R19.5 [facility] [id number] [place] [address] 58978- 2695 Aug, Depression, unspecified depression type F32.9 ; Chronic pain syndrome G89.4 ; Chronic tension-type headache, intractable G44.221 ; Red stool R19.5 ; Hypothyroidism, unspecified E03.9 and Mixed hyperlipidemia E78.2 [facility] [id number] [place] [address] 69887- 3227 Jul, Major depressive disorder, recurrent episode, moderate F33.1 [facility] [id number] [place] [address] 10298- 3326 Jul, [facility] [address] 59358- 5536 Jul, Hypothyroidism, unspecified E03.9 [facility] [id number] [place] [address] 77700- 8240 Jul, Hypothyroidism, unspecified E03.9 [facility] [id number] [place] [address] 26959- 8956 Jul, Mixed hyperlipidemia E78.2 [facility] [id number] [place] [address] 87572- 9482 Jul, Mixed hyperlipidemia E78.2 [facility] [id number] [place] [address] 22264 -8039 08 Jul, 2017 Bronchitis J40 ; Cough R05 and Wheezing R06.2 [facility] [id number] [place] [address] 99614- 1789 07 Jul, 2017 Major depressive disorder, recurrent episode, moderate F33.1 and Generalized anxiety disorder F41.1 [facility] [id number] [place] [address] 90959- 2255 Jul, [facility] [address] 69025- 2598 Jul, Major depressive disorder, recurrent episode, moderate F33.1 and Generalized anxiety disorder F41.1 [facility] [address] 31359- 8619 Jul, Generalized anxiety disorder F41.1 and Major depressive disorder, recurrent episode, moderate F33.1 [facility] [address] 71564- 4915 Jul, Mixed hyperlipidemia E78.2 [facility] [address] 80528- 5901 Jun, Depression, unspecified depression type F32.9 ; Cervicalgia M54.2 ; Trigger point M79.1 ; Hypothyroidism, unspecified E03.9 ; Screening, lipid Z13.220 and Mixed hyperlipidemia E78.2 [facility] [id number] [place] [address] 60965- 6348 Jun, [facility] [address] 56553- 3960 May, [facility] [address] 34628- 4941 Apr, Acute bronchitis due to other specified organisms J20.8 and Tobacco abuse counseling Z71.6 [facility] [id number] [place] [address] 60076- 6307 Mar, Depression, unspecified depression type F32.9 [facility] [id number] [place] [address] 04840- 6329 Jan, Chronic pain syndrome G89.4 [facility] [id number] [place] [address] 82275- 2070 Nov, Anxiety F41.9 ; Depression, unspecified depression type F32.9 and Chronic pain syndrome G89.4 [facility] [id number] [place] [address] 76287- 6774 Oct, Anxiety F41.9 and Hypothyroidism, unspecified E03.9 [facility] [id number] [place] [address] 65597 -3629 Oct, Left foot pain M79.672 and Contusion of left foot, 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 S90.32XA [facility] [address] 57982- 1545 Oct, [facility] [address] 45589- 1743 September, Cervicalgia M54.2 [facility] [address] 17956- 4725 September, [facility] [address] 33437- 9002 Aug, Cervicalgia M54.2 [facility] [id number] [place] [address] 03146- 0143 Aug, Cervicalgia M54.2 and Left arm numbness R20.0 [facility] [id number] [place] [address] 87840- 4679 Aug, [facility] [id number] [place] [address] 57361- 3623 Aug, [facility] [id number] [place] [address] 16836- 6810 Jul, [facility] [id number] [place] [address] 81694- 9904 Jul, [facility] [address] 82596- 0682 Jul, [facility] [id number] [place] [address] 83718- 4644 Jul, Acute midline low back pain without sciatica M54.5 [facility] [id number] [place] [address] 73337- 1593 Jun, Acute midline low back pain without sciatica M54.5 [facility] [id number] [place] [address] 87128- 8720 Jun, Chronic pain syndrome G89.4 and Muscle spasm M62.838 [facility] [id number] [place] [address] 82254- 6047 Jun, [facility] [id number] [place] [address] 43869- 2610 Jun, Acute midline low back pain without sciatica M54.5 [facility] [address] 48140- 8785 Jun, [facility] [id number] [place] [address] 57127- 0919 May, [facility] [address] 43596- 1351 May, Hypothyroidism, unspecified E03.9 ; Chronic pain syndrome G89.4 ; Hyperglycemia R73.9 ; Encounter for immunization Z23 and Mixed hyperlipidemia E78.2 [facility] [id number] [place] [address] 69070- 3298 Apr, Fatigue 780.79 [facility] [id number] [place] [address] 55322- 2278 Apr, Chronic pain syndrome G89.4 [facility] [id number] [place] [address] 93657- 9739 Mar, [facility] [id number] [place] [address] 52339- 1231 Mar, Chronic pain syndrome G89.4 [facility] [id number] [place] [address] 72031- 9044 Jan, [facility] [id number] [place] [address] 59557- 6828 Dec, [facility] [id number] [place] [address] 92400- 1302 Dec, Chronic pain syndrome G89.4 [facility] [id number] [place] [address] 49837- 2587 Dec, Trigger point M79.2 [facility] [id number] [place] [address] 90718- 3316 Nov, Chronic pain syndrome G89.4 [facility] [id number] [place] [address] 00033- 0884 Oct, Chronic pain syndrome G89.4 [facility] [id number] [place] [address] 21415- 7083 Oct, Irritant contact dermatitis due to detergent L24.0 [facility] [id number] [place] [address] 67733- 4131 September, Hypothyroidism, unspecified E03.9 and Depression, unspecified depression type F32.9 [facility] [id number] [place] [address] 32727- 3356 September, Chronic pain syndrome G89.4 [facility] [id number] [place] [address] 87356- 0156 Aug, [facility] [id number] [place] [address] 95787- 9394 Aug, Trigger point M79.2 [facility] [id number] [place] [address] 10383- 1755 Jul, Chronic pain syndrome G89.4 and prison 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.891 [facility] [id number] [place] [address] 34566- 2300 Jul, Chronic pain syndrome G89.4 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 [facility] [id number] [place] [address] 50639- 8747 Jul, [facility] [id number] [address]- 3075 Jul, [facility] [id number] 2758 Jun, [facility] [id number] [address]- 5515 May, [facility] [id number] [place] [address] 243125- 8064 May, [facility] [id number] [address]- 8598 May, [facility] [id number] [place] [address] 832976- 4793 May, Pneumonia, organism unspecified, unspecified laterality, unspecified part of lung J18.9 [facility] [id number] [address]- 6406 May, Pneumonia, organism unspecified, unspecified laterality, unspecified part of lung J18.9 [facility] [id number] [address]- 0276 Apr, [facility] [id number] [address]- 0033 Apr, [facility] [id number] [place] [address]- 0619 Apr, [facility] [id number] [address]- 4613 Apr, [facility] [id number] [address]- 0887 Apr, [facility] [id number] [place] [address]- 3536 Apr, Epigastric pain R10.13 [facility] [id number] [address]- 2471 Mar, Tinea pedis B35.3 and Contact dermatitis and eczema due to detergents L24.0 [facility] [id number] [place] [address] 08627- 1729 Mar, [facility] [id number] [place] [address] 82685- 8856 Jan, [facility] [id number] [place] [address] 07846- 9120 Jan, [facility] [id number] [place] [address] 055929- 4980 Jan, [facility] [id number] [place] [address] 32550- 9405 Dec, [facility] [id number] [place] [address] 64293- 8103 Nov, [facility] [id number] [place] [address] 22674- 5485 Nov, Fatigue 780.79 [facility] [id number] [place] [address] 44376- 7073 Nov, [facility] [id number] [place] [address] 10328- 8882 Nov, Unspecified myalgia and myositis 729.1 [facility] [id number] [place] [address] 67898- 4187 Nov, Hypercalcemia 275.42 [facility] [id number] [place] [address] 59333- 6391 Nov, Fatigue 780.79 ; Bradycardia 427.89 ; Chronic pain 338.29 and Family history of diabetes mellitus V18.0 [facility] [id number] [place] [address] 41803- 8918 Nov, Fatigue 780.79 ; Chronic pain 338.29 ; Family history of diabetes mellitus V18.0 ; Bradycardia 427.89 ; Hypothyroid 244.9 and Anxiety 300.00 [facility] [id number] [place] [address] 34901- 6573 Oct, [facility] [place] [facility] [address] [id number] [place] [address]- 0376 September, [facility] [place] [facility] [address] [id number] [place] [address]- 7721 Aug, [facility] [place] [facility] [address] [id number] [place] [address]- 9787 Aug, [facility] [place] [facility] [address] [id number] [place] [address]- 4602 Aug, [facility] [place] [facility] [address] [id number] [place] [address]- 0207 Jul, [facility] [place] [facility] [address] [id number] [place] [address]- 8179 Jul, [facility] [place] [facility] [address] [id number] [place] [address]- 0437 Jul, [facility] [place] [facility] [address] [id number] [place] [address]- 8203 Jul, [facility] [place] [facility] [address] [id number] [place] [address]- 3415 Jun, [facility] [place] [facility] [address] [id number] [place] [address]- 3530 Jun, [facility] [place] [facility] [address] [id number], [place] [address]- 7571 Jun, [facility] [place] [facility] [address] [id number], [place] [address]- 2252 Jun, [facility] [place] [facility] [address] [id number] [place] [address]- 4415 Jun, [facility] [place] [facility] [address] [facility] [id number] [place] [address]- 3176 Jun, [facility] [place] [facility] [address] [id number] [place] [address]- 6832 May, [facility] [place] [facility] [address] [id number] [place] [address]- 4520 May, [facility] [address] [id number] [place] [address]- 9058 May, [facility] [place] [facility] [address] [id number] [place] [address]- 8966 May, [facility] [address] [id number] [place] [address]- 6445 15 May, 2014 [facility] [place] [facility] [address] [id number] [place] [address]- 1008 15 May, 2014 [facility] [address] [id number] [place] [address]- 3531 May, [facility] [place] [facility] [address] [id number] [place] [address]- 2814 May, [facility] [place] [facility] [address] [id number] [place] [address]- 6038 May, [facility] [place] [facility] [address] [id number] [place] [address]- 7764 May, [facility] [place] [facility] [address] [id number] [place] [address]- 2087 Apr, [facility] [place] [facility] [address] [id number] [place] [address]- 5580 Apr, [facility] [place] [facility] [address] [id number] [place] [address]- 6857 Apr, [facility] [place] [facility] [address] [id number] [place] [address]- 0571 Apr, [facility] [place] [facility] [address] [id number] [place] [address]- 5702 Apr, [facility] [place] [facility] [address] [id number] [place] [address]- 0757 Apr, [facility] [place] [facility] [address] [id number] [place] [address]- 1052 18 Apr, 2014 [facility] [place] [facility] [address] [id number] [place] [address]- 9054 18 Apr, 2014 [facility] [place] [facility] [address] [id number] [place] [address]- 6158 17 Apr, 2014 [facility] [place] [facility] [address] [id number] [place] [address]- 6754 17 Apr, 2014 [facility] [place] [facility] [address] [id number] [place] [address]- 8438 Apr, [facility] [place] [facility] [address] [id number] [place] [address]- 8569 13 Apr, 2014 [facility] [place] [facility] [address] [id number] [place] [address]- 8476 11 Apr, 2014 [facility] [place] [facility] [address] [id number] [place] [address]- 3604 10 Apr, 2014 [facility] [place] [facility] [address] [id number] [place] [address]- 4282 10 Apr, 2014 [facility] [place] [facility] [address] [id number] [place] [address]- 6307 16 Mar, 2014 [facility] [place] [facility] [address] [id number], [place] [address]- 1795 16 Mar, 2014 [facility] [place] [facility] [address] [id number], [place] [address]- 8062 16 Mar, 2014 [facility] [place] [facility] [address] [id number], [place] [address]- 8821 16 Mar, 2014 [facility] [place] [facility] [address] [id number] [place] [address]- 4670 19 Jan, 2014 [facility] [place] [facility] [address] [id number] [place] [address]- 6985 19 Jan, 2014 [facility] [place] [facility] [address] [id number], [place] [address]- 1896 18 Jan, 2014 [facility] [place] [facility] [address] [id number], [place] [address]- 7031 Jan, [facility] [place] [facility] [address] [id number] [place] [address]- 8521 Jan, [facility] [place] [facility] [address] [id number] [place] [address]- 5998 Jan, [facility] [place] [facility] [address] [id number] [place] [address]- 9308 Dec, [facility] [place] [facility] [address] [id number] [place] [address]- 4979 Dec, [facility] [place] [facility] [address] [id number] [place] [address]- 7113 Dec, [facility] [place] [facility] [address] [id number] [place] [address]- 0551 Dec, [facility] [place] [facility] [address] [id number] [place] [address]- 5259 Nov, [facility] [place] [facility] [address] [id number] [place] [address]- 3157 Nov, [facility] [place] [facility] [address] [id number] [place] [address]- 0418 Nov, [facility] [place] [facility] [address] [id number] [place] [address]- 8716 Nov, [facility] [place] [facility] [address] [id number] [place] [address]- 3130 Oct, [facility] [place] [facility] [address] [id number] [place] [address]- 8533 Oct, [facility] [place] [facility] [address] [id number] [place] [address]- 5927 Oct, [facility] [place] [facility] [address] [id number] [place] [address]- 9562 Oct, [facility] [place] [facility] [address] [id number] [place] [address]- 7599 Oct, [facility] [place] [facility] [address] [id number] [place] [address]- 6397 Oct, [facility] [place] [facility] [address] [id number] [place] [address]- 3734 Oct, [facility] [place] [facility] [address] [id number] [place] [address]- 8267 Oct, [facility] [place] [facility] [address] [id number] [place] [address]- 2979 Oct, [facility] [place] [facility] [address] [id number] [place] [address]- 1298 Oct, [facility] [place] [facility] [address] [id number] [place] [address]- 9840 September, [facility] [place] [facility] [address] [id number] [place] [address]- 8363 September, [facility] [place] [facility] [address] [id number] [place] [address]- 9437 September, [facility] [place] [facility] [address] [id number] [place] [address]- 3570 September, [facility] [place] [facility] [address] [id number] [place] [address]- 9962 September, [facility] [place] [facility] [address] [id number] [place] [address]- 9782 September, [facility] [place] [facility] [address] [id number] [place] [address]- 2082 September, [facility] [place] [facility] [address] [id number] [place] 8517 September, [facility] [place] [facility] [address] [id number] [place] 1238 September, [facility] [place] [facility] [address] [id number] [place] [address]- 9453 Aug, [facility] [place] [facility] [address] [id number] [place] [address]- 9567 Aug, [facility] [place] [facility] [address] [id number] [place] [address] Aug, [facility] [place] [facility] [address] [id number] [place] [address] Aug, [facility] [place] [facility] [address] [id number] [place] [address] Aug, [facility] [place] [facility] [address] [id number] [place] [address] Aug, [facility] [place] [facility] [address] [id number] [place] [address] Aug, [facility] [place] [facility] [address] [id number] [place] [address] Aug, [facility] [place] [facility] [address] [id number] [place] [address] Jul, [facility] [place] [facility] [address] [id number] [place] [address] Jul, [facility] [place] [facility] [address] [id number] [place] [address] Jul, [facility] [place] [facility] [address] [id number] [place] [address] Jul, [facility] [place] [facility] [address] [id number] [place] [address] Jul, [facility] [place] [facility] [address] [id number] [place] [address] Jul, [facility] [place] [facility] [address] [id number] [place] [address] Jul, [facility] [place] [facility] [address] [id number] [place] [address] Jul, [facility] [place] [facility] [address] [id number] [place] [address] Jul, [facility] [place] [facility] [address] [id number] [place] [address] 17 Jul, 2013 [facility] [place] [facility] [address] [id number] [place] [address] 17 Jul, 2013 [facility] [place] [facility] [address] [id number] [place] [address] Jul, [facility] [place] [facility] [address] [id number] [place] [address] Jul, [facility] [place] [facility] [address] [id number] [place] [address] 05 Jul, 2013 [facility] [place] [facility] [address] [id number] [place] [address] Jul, [facility] [place] [facility] [address] [id number] [place] [address] 10 Jul, 2013 [facility] [place] [facility] [address] [id number] [place] [address] Jul, [facility] [place] [facility] [address] [id number] [place] [address] Jul, [facility] [place] [facility] [address] [id number] [place] [address] Jul, [facility] [place] [facility] [address] [facility] [id number] [place] [address] Jun, [facility] [place] [facility] [address] [id number] [place] [address] Jun, [facility] [place] [facility] [address] [id number] [place] [address] May, [facility] [place] [facility] [address] [id number] [place] [address] May, [facility] [place] [facility] [address] [id number] [place] [address] Apr, [facility] [place] [facility] [address] [id number] [place] [address] Apr, [facility] [place] [facility] [address] [id number] [place] [address] Apr, [facility] [place] [facility] [address] [id number] [place] [address] Apr, [facility] [place] [facility] [address] [id number] [place] [address] Apr, [facility] [place] [facility] [address] [id number] [place] [address] Apr, [facility] [place] [facility] [address] [id number] [place] [address] Mar, [facility] [place] [facility] [address] [id number] [place] [address] Mar, [facility] [place] [facility] [address] [id number] [place] [address] Mar, [facility] [place] [facility] [address] [id number], [place] [address] Mar, [facility] [place] [facility] [address] [id number] [place] [address] Jan, [facility] [place] [facility] [address] [id number], [place] [address] Jan, [facility] [place] [facility] [address] [id number], [place] [address] Jan, [facility] [place] [facility] [address] [id number], [place] [address] Dec, [facility] [place] [facility] [address] [id number] [place] [address] Dec, [facility] [place] [facility] [address] [id number][place] [address] Dec, [facility] [place] [facility] [address] [id number], [place] [address] Dec, [facility] [place] [facility] [address] [id number], [place] [address] Nov, [facility] [address] [id number] [place] [address] Nov, [facility] [place] [facility] [address] [id number] [place] [address] Nov, [facility] [place] [facility] [address] [id number] [place] [address] Oct, [facility] [place] [facility] [address] [id number] [place] [address] Oct, [facility] [place] [facility] [address] [id number] [place] [address] Oct, [facility] [place] [facility] [address] [id number] [place] [address] Oct, [facility] [address] [id number] [place] [address] Oct, [facility] [place] [facility] [address] [id number] [place] [address] Oct, [facility] [place] [facility] [address] [id number] [place] [address] September, [facility] [place] [facility] [address] [id number] [place] [address] Jul, [facility] [place] [facility] [address] [id number] [place] [address] Jul, [facility] [place] [facility] [address] [id number] [place] [address] Jul, [facility] [place] [facility] [address] [id number] [place] [address] Jul, [facility] [place] [facility] [address] [id number] [place] [address] Jul, [facility] [place] [facility] [address] [id number] [place] [address] Jul, [facility] [place] [facility] [address] [id number] [place] [address] Jun, [facility] [place] [facility] [address] [id number] [place] [address] Apr, [facility] [place] [facility] [address] [id number] [place] [address] Apr, [facility] [place] [facility] [address] [id number] [place] [address] Jan, [facility] [place] [facility] [address] [id number] [place] [address] Dec, [facility] [place] [facility] [address] [id number] [place] [address] Nov, [facility] [place] [facility] [address] [id number] [place] [address] Oct, [facility] [place] [facility] [address] [id number] [place] [address] September, [facility] [place] [facility] [address] [id number] [place] [address] September, [facility] [place] [facility] [address] [id number] [place] [address] Jul, [facility] [place] [facility] [address] [id number] [place] [address] Jul, [facility] [place] [facility] [address] [id number] [place] [address] Jul, [facility] [place] [facility] [address] [id number] [place] [address] Jul, [facility] [place] [facility] [address] [id number] [place] [address] Jul, [facility] [place] [facility] [address] [id number] [place] [address] 17 Jul, 2011 [facility] [place] [facility] [address] [id number], [place] [address] 13 Jul, 2011 [facility] [place] [facility] [address] [id number] [place] [address] Jul, [facility] [place] [facility] [address] [id number] [place] [address] 08 Jul, 2011 [facility] [place] [facility] [address] [facility] [id number] [place] [address] Jul, [facility] [place] [facility] [address] [id number] [place] [address] Jun, [facility] [place] [facility] [address] [id number] [place] [address] May, [facility] [place] [facility] [address] [facility] [id number] [place] [address] May, [facility] [place] [facility] [address] [facility] [id number] [place] [address] May, [facility] [place] [facility] [address] [facility] [id number] [place] [address] Apr, [facility] [place] [facility] [address] [facility] [id number] [place] [address]- [address] Apr, [facility] [place] [facility] [address] [facility] [id number] [place] [address] Mar, [facility] [place] [facility] [address] [facility] [id number], [place] [address] Mar, [facility] [place] [facility] [address] [facility] [id number], [place] [address] Mar, [facility] [place] [facility] [address] [facility] [id number], [place] [address] Mar, [facility] [place] [facility] [address] [facility] [id number], [place] [address] 10 Mar, 2011 [facility] [place] [facility] [address] [facility] [id number], [place] [address] September, [facility] [place] [facility] [address] [facility] [id number] [place] [address] Mar, [facility] [address] [facility] [id number], [place] [address] Dec, [facility] [address] [facility] [id number], [place] [address] May, [facility] [address] [facility] [id number], [place] [address] May, IMMUNIZATIONS No Known Immunizations SOCIAL HISTORY Never Assessed REASON FOR VISIT medication refill PLAN OF CARE VITAL SIGNS MEDICATIONS Medication Instructions Dosage Frequency Start Date End Date Duration Status Simvastatin 40 mg Orally Once a day 1 tablet in the evening 24h May, Active Levothyroxine Sodium 125 MCG Orally Once a day 1 tablet 24h 30 days Active RESULTS No Results [...]
--- OUTSIDE RECORDS SUMMARY | 2018-03-04 18:26 | XMS REPORT ---
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 801682164 Problem Depression, unspecified depression type F32.9 Active 21990565 Problem Chronic pain syndrome G89.4 Active 215689791 Problem Chronic tension-type headache, intractable G44.221 Active 097860953 Problem Generalized anxiety disorder F41.1 Active 34852915 Problem Mixed hyperlipidemia E78.2 Active 889678042 Problem Hypothyroidism, unspecified E03.9 Active 13810296 Problem Major depressive disorder, recurrent episode, moderate F33.1 Active 654383430 Problem Anxiety F41.9 Active 89116764 ALLERGIES No Information ENCOUNTERS Encounter Location Date Diagnosis [facility] [address] [address]- [address] Oct, [facility] [id number] [place] [address] 00745- 8889 Oct, [facility] [id number] [place] [address] 24602- 6071 Oct, [facility] [id number] [place] [address] 69838- 8644 September, Chronic pain syndrome G89.4 [facility] [id number] [place] [address] 18392- 2176 September, Depression, unspecified depression type F32.9 and Cervicalgia M54.2 [facility] [id number] [place] [address] 59695- 5429 September, Chronic pain syndrome G89.4 [facility] [id number] [place] [address] 12638- 7362 17 Aug, 2017 Red stool R19.5 [facility] [address] 939852- 3151 16 Aug, 2017 Depression, unspecified depression type F32.9 ; Chronic pain syndrome G89.4 ; Chronic tension-type headache, intractable G44.221 ; Red stool R19.5 ; Hypothyroidism, unspecified E03.9 and Mixed hyperlipidemia E78.2 [place] [address] [address]- [address]80 Jul, Major depressive disorder, recurrent episode, moderate F33.1 [place] [address] 54256- 3659 Jul, [place] [address] 58987- 4087 Jul, Hypothyroidism, unspecified E03.9 [place] [address] 08090- 5903 Jul, Hypothyroidism, unspecified E03.9 [place] [address] 94382- 2880 Jul, Mixed hyperlipidemia E78.2 [place] [address] 72231- 9330 Jul, Mixed hyperlipidemia E78.2 [facility] [id number] [place] [address] 74815 -7363 08 Jul, 2017 Bronchitis J40 ; Cough R05 and Wheezing R06.2 [facility] [address] 03832- 6129 07 Jul, 2017 Major depressive disorder, recurrent episode, moderate F33.1 and Generalized anxiety disorder F41.1 [facility] [address] 47589- 5091 05 Jul, 2017 [place] [address] [place] [address]- 9495 Jul, Major depressive disorder, recurrent episode, moderate F33.1 and Generalized anxiety disorder F41.1 [place] [address] 98440- 9610 Jul, Generalized anxiety disorder F41.1 and Major depressive disorder, recurrent episode, moderate F33.1 [place] [address] 06248- 1524 Jul, Mixed hyperlipidemia E78.2 [place] [address] 03065- 2721 Jun, Depression, unspecified depression type F32.9 ; Cervicalgia M54.2 ; Trigger point M79.1 ; Hypothyroidism, unspecified E03.9 ; Screening, lipid Z13.220 and Mixed hyperlipidemia E78.[address] 7[address]11- 7139 Jun, [place] [address] 91871- 7991 May, [address] 03325- 7402 Apr, Acute bronchitis due to other specified organisms J20.8 and Tobacco abuse counseling Z71.[address] 61791- 5856 Mar, Depression, unspecified depression type F32.9 [place] [id number] [place] [address] 30453- 2144 Jan, Chronic pain syndrome G89.[address] 27670- 0488 Nov, Anxiety F41.9 ; Depression, unspecified depression type F32.9 and Chronic pain syndrome G89.4 [place] [address] 39122- 6380 26 [place], 2017 Anxiety F41.9 and Hypothyroidism, unspecified E03.9 [facility] [address] [address] Oct, Left foot pain M79.672 and Contusion of left foot, 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 S90.32XA [facility] [id number] [place] [address] 29321- 6950 Oct, [facility] [id number] [place] [address] 67064- 0980 September, Cervicalgia M54.2 [facility] [id number] [place] [address] 51433- 7115 September, [facility] [id number] [place] [address] 59126- 5532 Aug, Cervicalgia M54.2 [facility] [id number] [place] [address] 25808- 2382 Aug, Cervicalgia M54.2 and Left arm numbness R20.0 [facility] [id number] [place] [address] 80264- 0672 Aug, [facility] [id number] [place] [address] 79134- 6404 Aug, [facility] [id number] [place] [address] 93122- 3364 Jul, [facility] [id number] [place] [address] 58602- 7061 Jul, [facility] [id number] [place] [address] 15445- 0921 Jul, [facility] [id number] [place] [address] 88400- 9248 Jul, Acute midline low back pain without sciatica M54.5 [facility] [id number] [place] [address] 92944- 1675 Jun, Acute midline low back pain without sciatica M54.5 [facility] [id number] [place] [address] 88303- 5271 Jun, Chronic pain syndrome G89.4 and Muscle spasm M62.838 [facility] [id number] [place] [address] 14389- 1262 Jun, [facility] [id number] [place] [address] 41678- 5555 Jun, Acute midline low back pain without sciatica M54.5 [facility] [id number] [place] [address] 82113- 6196 Jun, [facility] [address] 05939- 9674 May, [facility] [id number] [place] [address] 37717- 2621 May, Hypothyroidism, unspecified E03.9 ; Chronic pain syndrome G89.4 ; Hyperglycemia R73.9 ; Encounter for immunization Z23 and Mixed hyperlipidemia E78.2 [facility] [id number] [place] [address] 77507- 9328 Apr, Fatigue 780.79 [facility] [id number] [place] [address] 32626- 1575 Apr, Chronic pain syndrome G89.4 [facility] [id number] [place] [address] 01076- 7788 Mar, [facility] [id number] [place] [address] 45675- 7369 Mar, Chronic pain syndrome G89.4 [facility] [id number] [place] [address] 92901- 5724 Jan, [facility] [id number] [place] [address] 01101- 1255 Dec, [facility] [id number] [place] [address] 85076- 4015 Dec, Chronic pain syndrome G89.4 [facility] [address] [address]- 8470 Dec, Trigger point M79.2 [facility] [id number] [place] [address] 84249- 3218 Nov, Chronic pain syndrome G89.4 [facility] [id number] [place] [address] 87497- 3946 Oct, Chronic pain syndrome G89.4 [facility] [id number] [place] [address] 36481- 6104 Oct, Irritant contact dermatitis due to detergent L24.0 [facility] [id number] [place] [address] 73506- 8639 September, Hypothyroidism, unspecified E03.9 and Depression, unspecified depression type F32.9 [facility] [id number] [place] [address] 17653- 8089 September, Chronic pain syndrome G89.4 [facility] [id number] [place] [address] 97353- 8202 Aug, [facility] [id number] [place] [address] 17788- 6404 Aug, Trigger point M79.2 [facility] [id number] [place] [address] 29124- 7601 Jul, Chronic pain syndrome G89.4 and [facility] 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.891 [facility] [address], [place] [address]- 8328 Jul, Chronic pain syndrome G89.4 and [facility] 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.891 [facility] [id number] [place] [address] 05952- 9985 Jul, [facility] [id number] [place] [address] 43030- 5394 Jul, [facility] [address] [address]- 7626 Jun, [facility] [id number] [place] [address] 48199- 9387 May, [facility] [id number] [place] [address] 12653- 8026 May, [facility] [id number] [place] [address] 68203- 2674 May, [facility] [id number] [place] [address] 33338- 3177 May, Pneumonia, organism unspecified, unspecified laterality, unspecified part of lung J18.9 [facility] [id number] [place] [address] 81082- 9199 May, Pneumonia, organism unspecified, unspecified laterality, unspecified part of lung J18.9 [facility] [id number] [place] [address] 24977- 5414 Apr, [facility] [id number] [place] [address] 85205- 7127 Apr, [facility] [id number] [place] [address] 23321- 8228 Apr, [facility] [id number] [place] [address] 44007- 2205 Apr, [facility] [id number] [place] [address] 65700- 8938 Apr, [facility] [id number] [place] [address] 70599- 3839 Apr, Epigastric pain R10.13 [facility] [id number] [place] [address] 83305- 7169 Mar, Tinea pedis B35.3 and Contact dermatitis and eczema due to detergents L24.0 [facility] [address] [place] [address] 66695- 0693 Mar, [facility] [address] [address]- 6006 Jan, [facility] [id number] [place] [address] 04151- 3216 Jan, [facility] [id number] [place] [address] 68525- 3906 Jan, [facility] [id number] [place] [address] 019850- 3643 Dec, [facility] [id number] [place] [address] 03549- 1197 Nov, [facility] [id number] [place] [address] 079779- 2409 Nov, Fatigue 780.79 [facility] [id number] [place] [address] 233661- 6822 Nov, [facility] [id number] [place] [address] 43528- 9208 Nov, Unspecified myalgia and myositis 729.1 [facility] [id number] [place] [address] 23711- 2323 Nov, Hypercalcemia 275.42 [facility] [id number] [place] [address] 130378- 1091 Nov, Fatigue 780.79 ; Bradycardia 427.89 ; Chronic pain 338.29 and Family history of diabetes mellitus V18.0 [facility] [address], [place] [address]- 4206 Nov, Fatigue 780.79 ; Chronic pain 338.29 ; Family history of diabetes mellitus V18.0 ; Bradycardia 427.89 ; Hypothyroid 244.9 and Anxiety 300.00 [facility] [address], [place] [address]- 9916 Oct, [facility] [id number] [place] [address] 28093- 2633 September, [facility] [place] [facility] [address] [id number] [place] [address]- 8635 Aug, [facility] [place] [facility] [address] [id number] [place] [address]- 6013 Aug, [facility] [place] [facility] [address] [id number] [place] [address]- 2947 Aug, [facility] [place] [facility] [address] [id number] [place] [address]- 5741 Jul, [facility] [place] [facility] [address] [id number] [place] [address]- 2262 Jul, [facility] [place] [facility] [address] [id number] [place] [address]- 3899 Jul, [facility] [place] [facility] [address] [id number] [place] [address]- 9984 Jul, [facility] [place] [facility] [address] [id number] [place] [address]- 3844 Jun, [facility] [place] [facility] [address] [id number] [place] [address]- 2118 Jun, [facility] [place] [facility] [address] [id number] [place] [address]- 5396 Jun, [facility] [place] [facility] [address] [id number] [place] [address]- 4147 Jun, [facility] [place] [facility] [address] [id number] [address]- 1426 Jun, [facility] [place] [facility] [address] [id number] [place] [address]- 5033 Jun, [facility] [place] [facility] [address] [id number] [place] [address]- 2273 May, [facility] [place] [facility] [address] [id number] [place] [address]- 7004 May, [facility] [place] [facility] [address] [id number] [place] [address]- 6357 May, [facility] [place] [facility] [address] [id number] [place] [address]- 3368 May, [facility] [place] [facility] [address] [id number] [place] [address]- 4026 15 May, 2014 [facility] [place] [facility] [address] [id number] [place] [address]- 5887 15 May, 2014 [facility] [place] [facility] [address] [id number] [place] [address]- 5674 May, [facility] [place] [facility] [address] [id number] [place] [address]- 5878 May, [facility] [place] [facility] [address] [id number] [place] [address]- 4143 May, [facility] [place] [facility] [address] [id number] [place] [address]- 5085 May, [facility] [place] [facility] [address] [id number] [place] [address]- 4202 Apr, [facility] [place] [facility] [address] [id number] [place] [address]- 6106 Apr, [facility] [place] [facility] [address] [id number] [place] [address]- 0180 Apr, [facility] [place] [facility] [address] [id number] [place] [address]- 7722 Apr, [facility] [place] [facility] [address] [id number] [place] [address]- 3561 Apr, [facility] [place] [facility] [address] [id number] [place] [address]- 0316 Apr, [facility] [place] [facility] [address] [id number] [place] [address]- 0330 Apr, [facility] [place] [facility] [address] [id number] [place] [address]- 7613 Apr, [facility] [place] [facility] [address] [id number] [place] [address]- 3235 17 Apr, 2014 [facility] [place] [facility] [address] [id number] [place] [address]- 4483 17 Apr, 2014 [facility] [place] [facility] [address] [id number] [place] [address]- 3665 13 Apr, 2014 [facility] [place] [facility] [address] [id number] [place] [address]- 8463 13 Apr, 2014 [facility] [place] [facility] [address] [id number] [place] [address]- 4755 11 Apr, 2014 [facility] [place] [facility] [address] [id number] [place] [address]- 9523 10 Apr, 2014 [facility] [place] [facility] [address] [id number] [place] [address]- 2678 10 Apr, 2014 [facility] [place] [facility] [address] [id number] [place] [address]- 0125 16 Mar, 2014 [facility] [place] [facility] [address] [id number] [place] [address]- 8216 16 Mar, 2014 [facility] [place] [facility] [address] [id number] [place] [address]- 1441 16 Mar, 2014 [facility] [place] [facility] [address] [id number] [place] [address]- 2992 16 Mar, 2014 [facility] [place] [facility] [address] [id number] [place] [address]- 4200 19 Jan, 2014 [facility] [place] [facility] [address] [id number] [place] [address]- 3537 19 Jan, 2014 [facility] [place] [facility] [address] [id number] [place] [address]- 9520 18 Jan, 2014 [facility] [place] [facility] [address] [id number] [place] [address]- 4369 18 Jan, 2014 [facility] [place] [facility] [address] [id number] [place] [address]- 5671 Jan, [facility] [place] [facility] [address] [id number] [place] [address]- 4348 Jan, [facility] [place] [facility] [address] [id number] [place] [address]- 0200 Dec, [facility] [place] [facility] [address] [id number] [place] [address]- 2748 Dec, [facility] [place] [facility] [address] [id number] [place] [address]- 7894 Dec, [facility] [place] [facility] [address] [id number] [place] [address]- 5086 Dec, [facility] [place] [facility] [address] [id number] [place] [address]- 6615 Nov, [facility] [place] [facility] [address] [id number] [place] [address]- 7966 Nov, [facility] [place] [facility] [address] [id number] [place] [address]- 5870 Nov, [facility] [place] [facility] [address] [id number] [place] [address]- 7898 Nov, [facility] [place] [facility] [address] [id number] [place] [address]- 9303 Oct, [facility] [place] [facility] [address] [id number] [place] [address]- 9889 Oct, [facility] [place] [facility] [address] [id number] [place] [address]- 7427 Oct, [facility] [place] [facility] [address] [id number] [place] [address]- 6338 Oct, [facility] [place] [facility] [address] [id number] [place] [address]- 9763 Oct, [facility] [place] [facility] [address] [id number] [place] [address]- 7887 Oct, [facility] [place] [facility] [address] [id number] [place] [address]- 8941 16 Oct, 2013 [facility] [address] [id number] [place] [address]- 7571 Oct, [facility] [place] [facility] [address] [id number] [place] [address]- 7427 Oct, [facility] [address] [id number] [place] [address]- 3922 Oct, [facility] [place] [facility] [address] [id number] [place] [address]- 3407 September, [facility] [address] [id number] [place] [address]- 4133 September, [facility] [address] [id number] [place] [address]- 1172 September, [facility] [address] [id number] [place] [address]- 2430 September, [facility] [address] [id number] [place] [address]- 2496 September, [facility] [place] [facility] [address] [id number] [place] [address]- 6293 September, [facility] [address] [id number] [place] [address]- 6515 September, [facility] [place] [facility] [address] [id number] [place] [address]- 9109 September, [facility] [place] [facility] [address] [id number] [place] [address]- 5688 September, [facility] [place] [facility] [address] [id number] [place]25 Aug, [facility] [place] [facility] [address] [id number] [place] [address]- 1883 Aug, [facility] [place] [facility] [address] [id number] [place] [address]- 7429 Aug, [facility] [place] [facility] [address] [id number] [place] [address]- 9635 Aug, [facility] [place] [facility] [address] [id number] [place] [address]- 5647 Aug, [facility] [place] [facility] [address] [id number] [place] [address] Aug, [facility] [place] [facility] [address] [id number] [place] [address] Aug, [facility] [place] [facility] [address] [id number] [place] [address] Aug, [facility] [place] [facility] [address] [id number] [place] [address] Jul, [facility] [place] [facility] [address] [id number] [place] [address] Jul, [facility] [place] [facility] [address] [id number] [place] [address] Jul, [facility] [place] [facility] [address] [id number] [place] [address] Jul, [facility] [place] [facility] [address] [id number] [place] [address] Jul, [facility] [place] [facility] [address] [id number] [place] [address] Jul, [facility] [place] [facility] [address] [id number] [place] [address] Jul, [facility] [place] [facility] [address] [id number] [place] [address] 18 Jul, 2013 [facility] [place] [facility] [address] [id number] [place] [address] 18 Jul, 2013 [facility] [place] [facility] [address] [id number] [place] [address] 17 Jul, 2013 [facility] [place] [facility] [address] [id number] [place] [address] 17 Jul, 2013 [facility] [place] [facility] [address] [id number] [place] [address] Jul, [facility] [place] [facility] [address] [id number] [place] [address] Jul, [facility] [place] [facility] [address] [id number] [place] [address] Jul, [facility] [place] [facility] [address] [id number] [place] [address]- [address] 05 Jul, 2013 [facility] [place] [facility] [address] [id number] [place] [address] Jul, [facility] [place] [facility] [address] [id number] [place] [address] Jul, [facility] [place] [facility] [address] [id number] [place] [address] Jul, [facility] [place] [facility] [address] [id number] [place] [address] Jul, [facility] [place] [facility] [address] [id number] [place] [address] Jun, [facility] [place] [facility] [address] [id number] [place] [address] Jun, [facility] [place] [facility] [address] [id number] [place] [address] May, [facility] [place] [facility] [address] [id number] [place] [address] May, [facility] [place] [facility] [address] [id number] [place] [address] Apr, [facility] [place] [facility] [address] [id number] [place] [address] Apr, [facility] [place] [facility] [address] [id number] [place] [address] Apr, [facility] [place] [facility] [address] [id number] [place] [address] Apr, [facility] [place] [facility] [address] [id number] [place] [address] Apr, [facility] [place] [facility] [address] [id number] [place] [address] Apr, [facility] [place] [facility] [address] [id number] [place] [address] Mar, [facility] [place] [facility] [address] [id number] [place] [address] Mar, [facility] [place] [facility] [address] [id number] [place] [address] Mar, [facility] [place] [facility] [address] [id number] [place] [address] Mar, [facility] [place] [facility] [address] [id number] [place] [address] Jan, [facility] [place] [facility] [address] [id number] [place] [address] Jan, [facility] [place] [facility] [address] [id number] [place] [address] Jan, [facility] [place] [facility] [address] [id number] [place] [address] Dec, [facility] [place] [facility] [address] [id number] [place] [address] Dec, [facility] [place] [facility] [address] [id number] [place] [address] Dec, [facility] [place] [facility] [address] [id number] [place] [address] Dec, [facility] [place] [facility] [address] [id number] [place] [address] Nov, [facility] [place] [facility] [address] [id number] [place] [address] Nov, [facility] [address] [id number] [place] [address] Nov, [facility] [place] [facility] [address] [id number] [place] [address] Oct, [facility] [place] [facility] [address] [id number] [place] [address] Oct, [facility] [place] [facility] [address] [id number] [place] [address] Oct, [facility] [place] [facility] [address] [id number] [place] [address] Oct, [facility] [place] [facility] [address] [id number] [place] [address] Oct, [facility] [place] [facility] [address] [id number] [place] [address] Oct, [facility] [place] [facility] [address] [id number] [place] [address] September, [facility] [place] [facility] [address] [id number] [place] [address] Jul, [facility] [place] [facility] [address] [id number] [place] [address] Jul, [facility] [place] [facility] [address] [id number] [place] [address] Jul, [facility] [place] [facility] [address] [id number] [place] [address] Jul, [facility] [place] [facility] [address] [id number] [place] [address] Jul, [facility] [place] [facility] [address] [id number] [place] [address] Jul, [facility] [place] [facility] [address] [id number] [place] [address] Jun, [facility] [place] [facility] [address] [id number] [place] [address] 10 Apr, 2012 [facility] [address] [id number] [place] [address] 10 Apr, 2012 [facility] [place] [facility] [address] [id number] [place] [address] 24 Jan, 2012 [facility] [address] [id number] [place] [address] Dec, [facility] [place] [facility] [address] [id number] [place] [address] Nov, [facility] [address] [id number] [place] [address] Oct, [facility] [place] [facility] [address] [id number] [place] [address] September, [facility] [place] [facility] [address] [id number] [place] [address] September, [facility] [address] [id number] [place] [address] Jul, [facility] [place] [facility] [address] [id number] [place] [address] Jul, [facility] [address] [id number] [place] [address] Jul, [facility] [place] [facility] [address] [id number] [place] [address] Jul, [facility] [place] [facility] [address] [id number] [place] [address] Jul, [facility] [place] [facility] [address] [id number] [place] [address] 17 Jul, 2011 [facility] [place] [facility] [address] [id number] [place] [address] 13 Jul, 2011 [facility] [place] [facility] [address] [id number] [place] [address] Jul, [facility] [place] [facility] [address] [id number] [place] [address] Jul, [facility] [place] [facility] [address] [id number] [place] [address] Jul, [facility] [place] [facility] [address] [id number] [place] [address] Jun, [facility] [place] [facility] [address] [id number] [place] [address] May, [facility] [place] [facility] [address] [id number] [place] [address] May, [facility] [place] [facility] [address] [id number] [place] [address] May, [facility] [place] [facility] [address] [id number] [place] [address] Apr, [facility] [place] [facility] [address] [id number] [place] [address] Apr, [facility] [place] [facility] [address] [id number], [place] [address] Mar, [facility] [place] [facility] [address] [id number] [place] [address] Mar, [facility] [place] [facility] [address] [id number], [place] [address] Mar, [facility] [place] [facility] [address] [id number], [place] [address] Mar, [facility] [place] [facility] [address] [id number], [place] [address] Mar, [facility] [place] [facility] [address] [id number] [address] September, [facility] [place] [facility] [address] [id number] [place] [address] Mar, [facility] [place] [facility] [address] [facility] [id number] [place] [address] Dec, [facility] [address] [facility] [id number] [place] [address] May, [facility] [address] [facility] [id number] [place] [address] May, IMMUNIZATIONS No Known Immunizations SOCIAL HISTORY Never Assessed REASON FOR VISIT medication PLAN OF CARE VITAL SIGNS MEDICATIONS Unknown [...]
--- OUTSIDE RECORDS SUMMARY | 2018-03-04 18:27 | XMS REPORT ---
Author Author SHON RICHY Organization [facility] Address [address] [place] [address] Care Team Providers Care Support Team Assoc Name Role Phone ROHINIALONDRA CABALLEROA Unavailable PROBLEMS Type Condition ICD9-CM Code HWY30-ST Code Onset Dates Condition Status SNOMED Code Problem retinal surgeon 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.891 Active 698294840 Problem Depression, unspecified depression type F32.9 Active 34724410 Problem Chronic pain syndrome G89.4 Active 711312063 Problem Chronic tension-type headache, intractable G44.221 Active 260378402 Problem Generalized anxiety disorder F41.1 Active 11994771 Problem Mixed hyperlipidemia E78.2 Active 533686021 Problem Hypothyroidism, unspecified E03.9 Active 11961825 Problem Major depressive disorder, recurrent episode, moderate F33.1 Active 760317451 Problem Anxiety F41.9 Active 49575382 ALLERGIES Substance Reaction Event Type Date Status Glucophage 1,000 Mg Tablet making pt feel funny Non Drug Allergy Jul, Active ENCOUNTERS Encounter Location Date Diagnosis [facility] [id number] [place] [address] 32289- 7379 Nov, [facility] [id number] [place] [address] 33165- 3250 Oct, [facility] [id number] [place] [address] 52543- 5967 Oct, [facility] [id number] [place] [address] 48380- 9826 Oct, [facility] [id number] [place] [address] 91735- 4200 September, Chronic pain syndrome G89.4 [facility] [id number] [place] [address] 87022- 4284 September, Depression, unspecified depression type F32.9 and Cervicalgia M54.2 [facility] [facility] [id number] [place] [address] 72707- 7436 September, Chronic pain syndrome G89.4 [facility] [id number] [place] [address] 10286- 7749 Aug, Red stool R19.5 [facility] [facility] [address] 58147- 3532 Aug, Depression, unspecified depression type F32.9 ; Chronic pain syndrome G89.4 ; Chronic tension-type headache, intractable G44.221 ; Red stool R19.5 ; Hypothyroidism, unspecified E03.9 and Mixed hyperlipidemia E78.2 [facility] [facility] [id number] [place] [address] 17964- 7422 Jul, Major depressive disorder, recurrent episode, moderate F33.1 [facility] [facility] [address] 64863- 0952 Jul, [facility] [id number] [place] [address] 43251- 4583 Jul, Hypothyroidism, unspecified E03.9 [facility] [id number] [place] [address] 77919- 8040 Jul, Hypothyroidism, unspecified E03.9 [facility] [id number] [place] [address] 94518- 7626 Jul, Mixed hyperlipidemia E78.2 [facility] [id number] [place] [address] 32438- 3112 Jul, Mixed hyperlipidemia E78.2 [facility] [address] 03346 -7952 Jul, Bronchitis J40 ; Cough R05 and Wheezing R06.2 [place] [id number] [place] [address] 74653- 2597 Jul, Major depressive disorder, recurrent episode, moderate F33.1 and Generalized anxiety disorder F41.1 [facility] [id number] [place] [address] 91935- 7611 Jul, [facility] [address] 11729- 2078 Jul, Major depressive disorder, recurrent episode, moderate F33.1 and Generalized anxiety disorder F41.1 [facility] [address] 08724- 8896 Jul, Generalized anxiety disorder F41.1 and Major depressive disorder, recurrent episode, moderate F33.1 [place] [facility] [address] 40442- 9861 Jul, Mixed hyperlipidemia E78.[address] 66677- 7463 Jun, Depression, unspecified depression type F32.9 ; Cervicalgia M54.2 ; Trigger point M79.1 ; Hypothyroidism, unspecified E03.9 ; Screening, lipid Z13.220 and Mixed hyperlipidemia E78.[address] 49156- 9887 Jun, [facility] [facility] [address] 00178- 2806 May, [place] [id number] [place] [address] 73549- 8266 Apr, Acute bronchitis due to other specified organisms J20.8 and Tobacco abuse counseling Z71.6 [facility] [id number] [place] [address] 50513- 1048 Mar, Depression, unspecified depression type F32.9 [facility] [facility] [id number] [place] [address] 78504- 0569 Jan, Chronic pain syndrome G89.[address] 67273- 0908 Nov, Anxiety F41.9 ; Depression, unspecified depression type F32.9 and Chronic pain syndrome G89.4 [facility] [id number] [place] [address] 81404- 5523 Oct, Anxiety F41.9 and Hypothyroidism, unspecified E03.9 [facility] [id number] [place] [address] 24169 -3010 Oct, Left foot pain M79.672 and Contusion of left foot, 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 S90.32XA [facility] [id number] [place] [address] 97736- 1009 Oct, [facility] [address] 13351- 5766 September, Cervicalgia M54.2 [facility] [id number] [place] [address] 38647- 7541 September, [facility] [id number] [place] [address] 24449- 1613 Aug, Cervicalgia M54.2 [facility] [id number] [place] [address] 12599- 8896 Aug, Cervicalgia M54.2 and Left arm numbness R20.0 [facility] [id number] [place] [address] 39575- 6543 Aug, [facility] [id number] [place] [address] 18055- 6897 Aug, [facility] [id number] [place] [address] 20685- 4882 Jul, [facility] [address] 26148- 9886 Jul, [facility] [id number] [place] [address] 07746- 9899 Jul, [facility] [address] 29353- 3898 Jul, Acute midline low back pain without sciatica M54.5 [facility] [id number] [place] [address] 92272- 0440 Jun, Acute midline low back pain without sciatica M54.5 [facility] [id number] [place] [address] 77646- 9757 Jun, Chronic pain syndrome G89.4 and Muscle spasm M62.838 [facility] [id number] [place] [address] 98062- 0934 Jun, [facility] [id number] [place] [address] 83976- 8356 Jun, Acute midline low back pain without sciatica M54.5 [facility] [id number] [place] [address] 76948- 3268 Jun, [facility] [id number] [place] [address] 91247- 6288 May, [facility] [id number] [place] [address] 36274- 0877 May, Hypothyroidism, unspecified E03.9 ; Chronic pain syndrome G89.4 ; Hyperglycemia R73.9 ; Encounter for immunization Z23 and Mixed hyperlipidemia E78.2 [facility] [id number] [place] [address] 50206- 6145 Apr, Fatigue 780.79 [facility] [id number] [place] [address] 59001- 7860 Apr, Chronic pain syndrome G89.4 [facility] [id number] [place] [address] 95911- 3240 Mar, [facility] [id number] [place] [address] 42073- 6304 Mar, Chronic pain syndrome G89.4 [facility] [id number] [place] [address] 76925- 9879 Jan, [facility] [id number] [place] [address] 79697- 5681 Dec, [facility] [id number] [place] [address] 42494- 3230 Dec, Chronic pain syndrome G89.4 [facility] [id number] [place] [address] 30203- 4273 Dec, Trigger point M79.2 [facility] [id number] [place] [address] 15831- 5907 Nov, Chronic pain syndrome G89.4 [facility] [id number] [place] [address] 67069- 0805 Oct, Chronic pain syndrome G89.4 [facility] [id number] [place] [address] 02330- 1744 Oct, Irritant contact dermatitis due to detergent L24.0 [place] [id number] [place] [address] 49838- 2325 September, Hypothyroidism, unspecified E03.9 and Depression, unspecified depression type F32.9 [place] [id number] [place] [address] 97511- 5576 September, Chronic pain syndrome G89.4 [facility] [id number] [place] [address] 36681- 5213 Aug, [facility] [id number] [place] [address] 28669- 9523 Aug, Trigger point M79.2 [facility] [address] [place] [address] 07027- 0210 Jul, Chronic pain syndrome G89.4 and retinal surgeon 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.891 [facility] [address] [place] [address] 68732- 8141 Jul, Chronic pain syndrome G89.4 and [facility] 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.891 [facility] [id number] [address]- 1033 Jul, [facility] [address] [address]- 7226 Jul, [facility] [address] [address]- 7846 Jun, [facility] [address] [address]- 4718 May, [facility] [address] [address]- 4409 May, [facility] [id number] [place] [address] 14598- 8733 May, [facility] [address] [address]- 6109 May, Pneumonia, organism unspecified, unspecified laterality, unspecified part of lung J18.9 [facility] [address] [address]- 4760 May, Pneumonia, organism unspecified, unspecified laterality, unspecified part of lung J18.9 [facility] [address] [address]- 6394 Apr, [facility] [address] [address]- 9575 Apr, [facility] [address] [address]- 9310 Apr, [facility] [address] [address]- 4081 Apr, [facility] [address] [address]- 0775 Apr, [facility] [address] [address]- 1796 Apr, Epigastric pain R10.13 [facility] [id number] [place] [address] 83454- 9848 Mar, Tinea pedis B35.3 and Contact dermatitis and eczema due to detergents L24.0 [facility] [id number] [place] [address] [id number]- 2359 Mar, [facility] [id number] [place] [address] 446597- 1955 Jan, [facility] [address] 402993- 7665 Jan, [facility] [id number] [place] [address] 090981- 8139 Jan, [facility] [id number] [place] [address] 605328- 7315 Dec, [facility] [id number] [place] [address] 33500- 4776 Nov, [facility] [id number] [place] [address] 57573- 3701 Nov, Fatigue 780.79 [facility] [id number] [place] [address] 85998- 0743 Nov, [facility] [id number] [place] [address] 39370- 7484 Nov, Unspecified myalgia and myositis 729.1 [place] [id number] [place] [address] 93413- 3961 Nov, Hypercalcemia 275.42 [place] [id number] [place] [address] 870781- 8636 Nov, Fatigue 780.79 ; Bradycardia 427.89 ; Chronic pain 338.29 and Family history of diabetes mellitus V18.0 [facility] [id number] [place] [address] 683517- 7527 Nov, Fatigue 780.79 ; Chronic pain 338.29 ; Family history of diabetes mellitus V18.0 ; Bradycardia 427.89 ; Hypothyroid 244.9 and Anxiety 300.00 [facility] [address] [id number] [place] [address]- 1824 Oct, [facility] [place] [facility] [address] [id number] [place] [address]- 9328 September, [facility] [place] [facility] [address] [id number] [place] [address]- 5822 Aug, [facility] [place] [facility] [address] [id number] [place] [address]- 8686 Aug, [facility] [place] [facility] [address] [id number] [place] [address]- 4829 Aug, [facility] [place] [facility] [address] [id number] [place] [address]- 0296 Jul, [facility] [place] [facility] [address] [facility] [id number] [place] [address]- 5861 Jul, [facility] [place] [facility] [address] [id number] [place] [address]- 3672 Jul, [facility] [place] [facility] [address] [id number] [place] [address]- 2226 Jul, [facility] [place] [facility] [address] [facility] [id number] [place] [address]- 7233 Jun, [facility] [place] [facility] [address] [id number] [place] [address]- 9943 Jun, [facility] [place] [facility] [address] [id number] [address]- 6078 Jun, [facility] [place] [facility] [address] [id number] [place] [address]- 4640 Jun, [facility] [place] [facility] [address] [id number] [place] [address]- 9852 Jun, [facility] [place] [facility] [address] [facility] [id number] 3824 Jun, [facility] [place] [facility] [address] [id number] [address]- 6430 May, [facility] [place] [facility] [address] [id number] [place] [address]- 1473 May, [facility] [place] [facility] [address] [id number] [place] [address]- 6100 May, [facility] [place] [facility] [address] [id number] [place] [address]- 2286 May, [facility] [place] [facility] [address] [id number] [place] [address]- 8487 15 May, 2014 [facility] [place] [facility] [address] [id number] [place] [address]- 9322 15 May, 2014 [facility] [place] [facility] [address] [id number] [place] [address]- 6940 May, [facility] [place] [facility] [address] [id number] [place] [address]- 4568 May, [facility] [place] [facility] [address] [id number] [place] [address]- 4126 May, [facility] [place] [facility] [address] [id number] [place] [address]- 4683 May, [facility] [place] [facility] [address] [id number] [place] [address]- 9317 Apr, [facility] [place] [facility] [address] [id number] [place] [address]- 0219 Apr, [facility] [place] [facility] [address] [id number] [place] [address]- 0121 Apr, [facility] [place] [facility] [address] [id number] [place] [address]- 7192 Apr, [facility] [place] [facility] [address] [id number] [place] [address]- 2757 Apr, [facility] [place] [facility] [address] [id number] [place] [address]- 0371 Apr, [facility] [place] [facility] [address] [id number] [place] [address]- 4402 18 Apr, 2014 [facility] [place] [facility] [address] [id number] [place] [address]- 1442 18 Apr, 2014 [facility] [place] [facility] [address] [id number] [place] [address]- 4947 17 Apr, 2014 [facility] [place] [facility] [address] [id number] [place] [address]- 5288 17 Apr, 2014 [facility] [place] [facility] [address] [id number] [place] [address]- 2249 13 Apr, 2014 [facility] [place] [facility] [address] [id number] [place] [address]- 6797 13 Apr, 2014 [facility] [place] [facility] [address] [id number] [place] [address]- 9722 11 Apr, 2014 [facility] [place] [facility] [address] [id number] [place] [address]- 3558 10 Apr, 2014 [facility] [place] [facility] [address] [id number] [place] [address]- 4960 10 Apr, 2014 [facility] [place] [facility] [address] [id number] [place] [address]- 4427 16 Mar, 2014 [facility] [place] [facility] [address] [id number] [place] [address]- 0342 16 Mar, 2014 [facility] [place] [facility] [address] [id number] [place] [address]- 2680 16 Mar, 2014 [facility] [place] [facility] [address] [id number] [place] [address]- 6181 16 Mar, 2014 [facility] [place] [facility] [address] [id number] [place] [address]- 1058 19 Jan, 2014 [facility] [place] [facility] [address] [id number] [place] [address]- 4020 19 Jan, 2014 [facility] [place] [facility] [address] [id number] [place] [address]- 3380 Jan, [facility] [place] [facility] [address] [id number] [place] [address]- 3158 Jan, [facility] [place] [facility] [address] [id number] [place] [address]- 9225 Jan, [facility] [place] [facility] [address] [id number] [place] [address]- 5463 Jan, [facility] [place] [facility] [address] [id number] [place] [address]- 0925 Dec, [facility] [place] [facility] [address] [id number] [place] [address]- 9221 Dec, [facility] [place] [facility] [address] [id number] [place] [address]- 1985 Dec, [facility] [place] [facility] [address] [id number] [place] [address]- 2837 Dec, [facility] [place] [facility] [address] [id number] [place] [address]- 7451 Nov, [facility] [place] [facility] [address] [id number] [place] [address]- 5912 Nov, [facility] [place] [facility] [address] [id number] [place] [address]- 0214 Nov, [facility] [place] [facility] [address] [id number] [place] [address]- 7882 Nov, [facility] [place] [facility] [address] [id number] [place] [address]- 0499 Oct, [facility] [place] [facility] [address] [id number] [place] [address]- 3798 Oct, [facility] [place] [facility] [address] [id number] [place] [address]- 5278 Oct, [facility] [place] [facility] [address] [id number] [place] [address]- 5002 Oct, [facility] [place] [facility] [address] [id number] [place] [address]- 8969 Oct, [facility] [place] [facility] [address] [id number] [place] [address]- 6677 Oct, [facility] [place] [facility] [address] [id number] [place] [address]- 1996 Oct, [facility] [place] [facility] [address] [id number] [place] [address]- 5615 Oct, [facility] [place] [facility] [address] [id number] [place] [address]- 1846 Oct, [facility] [place] [facility] [address] [id number] [place] [address]- 1787 Oct, [facility] [place] [facility] [address] [id number] [place] [address]- 2998 September, [facility] [place] [facility] [address] [id number] [place] [address]- 0061 September, [facility] [place] [facility] [address] [id number] [place] [address]- 5542 September, [facility] [place] [facility] [address] [id number] [place] [address]- 0042 September, [facility] [place] [facility] [address] [id number] [place] [address]- 0371 September, [facility] [place] [facility] [address] [id number] [place] [address]- 9905 September, [facility] [place] [facility] [address] [id number] [place] [address]- 9251 September, [facility] [place] [facility] [address] [id number] [place] [address]- 7615 September, [facility] [place] [facility] [address] [id number] [place] [address]- 4210 September, [facility] [place] [facility] [address] [id number] [place] [address]- 6405 Aug, [facility] [place] [facility] [address] [id number] [place] [address]- [address] Aug, [facility] [place] [facility] [address] [id number] [place] [address] Aug, [facility] [place] [facility] [address] [id number] [place] [address] Aug, [facility] [place] [facility] [address] [id number] [place] [address] Aug, [facility] [place] [facility] [address] [id number] [place] [address] Aug, [facility] [place] [facility] [address] [id number] [place] [address] Aug, [facility] [place] [facility] [address] [id number] [place] [address] Aug, [facility] [place] [facility] [address] [id number] [place] [address] Jul, [facility] [place] [facility] [address] [id number] [place] [address] Jul, [facility] [place] [facility] [address] [id number] [place] [address] Jul, [facility] [place] [facility] [address] [id number] [place] [address]- [address] Jul, [facility] [place] [facility] [address] [id number] [place] [address] 24 Jul, 2013 [facility] [place] [facility] [address] [id number] [place] [address] Jul, [facility] [place] [facility] [address] [id number] [place] [address] Jul, [facility] [place] [facility] [address] [id number] [place] [address] Jul, [facility] [place] [facility] [address] [id number] [place] [address]- [address] 18 Jul, 2013 [facility] [place] [facility] [address] [id number] [place] [address]- [address] 17 Jul, 2013 [facility] [place] [facility] [address] [id number] [place] [address]- [address] 17 Jul, 2013 [facility] [place] [facility] [address] [id number] [place] [address]- [address] Jul, [facility] [place] [facility] [address] [id number] [place] [address]- [address] 13 Jul, 2013 [facility] [place] [facility] [address] [id number] [place] [address]- [address] 05 Jul, 2013 [facility] [place] [facility] [address] [id number] [place] [address] Jul, [facility] [place] [facility] [address] [id number] [place] [address]- 2868 Jul, [facility] [place] [facility] [address] [id number] [place] [address] Jul, [facility] [place] [facility] [address] [id number] [place] [address]- 1574 Jul, [facility] [place] [facility] [address] [id number] [place] [address]- 39[address] Jul, [facility] [place] [facility] [address] [id number] [place] [address] Jun, [facility] [place] [facility] [address] [id number] [place] [address] Jun, [facility] [place] [facility] [address] [id number] [place] [address]- [address] May, [facility] [place] [facility] [address] [id number] [place] [address] May, [facility] [place] [facility] [address] [id number] [place] [address]- [address] Apr, [facility] [place] [facility] [address] [id number] [place] [address] Apr, [facility] [place] [facility] [address] [id number] [place] [address] Apr, [facility] [place] [facility] [address] [id number] [place] [address] Apr, [facility] [place] [facility] [address] [id number] [place] [address] Apr, [facility] [place] [facility] [address] [id number] [place] [address] Apr, [facility] [place] [facility] [address] [id number] [place] [address] Mar, [facility] [place] [facility] [address] [id number] [place] [address] Mar, [facility] [place] [facility] [address] [id number] [place] [address] Mar, [facility] [place] [facility] [address] [id number] [place] [address] Mar, [facility] [place] [facility] [address] [id number] [place] [address] Jan, [facility] [place] [facility] [address] [id number] [place] [address] Jan, [facility] [place] [facility] [address] [id number] [place] [address] Jan, [facility] [place] [facility] [address] [id number] [place] [address] Dec, [facility] [place] [facility] [address] [id number] [place] [address] Dec, [facility] [place] [facility] [address] [id number] [place] [address] Dec, [facility] [place] [facility] [address] [id number] [place] [address] Dec, [facility] [address] [id number] [place] [address] Nov, [facility] [place] [facility] [address] [id number] [place] [address] Nov, [facility] [place] [facility] [address] [id number] [place] [address] Nov, [facility] [place] [facility] [address] [id number] [place] [address] Oct, [facility] [place] [facility] [address] [id number] [place] [address] Oct, [facility] [place] [facility] [address] [id number] [place] [address] Oct, [facility] [place] [facility] [address] [id number] [place] [address] Oct, [facility] [place] [facility] [address] [id number] [place] [address] Oct, [facility] [place] [facility] [address] [id number] [place] [address] Oct, [facility] [place] [facility] [address] [id number] [place] [address] September, [facility] [place] [facility] [address] [id number] [place] [address] Jul, [facility] [place] [facility] [address] [id number] [place] [address] Jul, [facility] [place] [facility] [address] [id number] [place] [address] Jul, [facility] [place] [facility] [address] [id number] [place] [address] Jul, [facility] [place] [facility] [address] [id number] [place] [address] Jul, [facility] [place] [facility] [address] [id number] [place] [address] 05 Jul, 2012 [facility] [address] [id number] [place] [address] Jun, [facility] [place] [facility] [address] [id number] [place] [address] Apr, [facility] [place] [facility] [address] [id number] [place] [address] Apr, [facility] [place] [facility] [address] [id number] [place] [address] Jan, [facility] [place] [facility] [address] [id number] [place] [address] Dec, [facility] [place] [facility] [address] [id number] [place] [address] Nov, [facility] [place] [facility] [address] [id number] [place] [address] Oct, [facility] [place] [facility] [address] [id number] [place] [address] September, [facility] [place] [facility] [address] [id number] [place] [address] September, [facility] [place] [facility] [address] [id number] [place] [address] Jul, [facility] [place] [facility] [address] [id number] [place] [address] Jul, [facility] [place] [facility] [address] [id number] [place] [address] Jul, [facility] [place] [facility] [address] [id number] [place] [address] Jul, [facility] [place] [facility] [address] [id number] [place] [address]26 Jul, [facility] [place] [facility] [address] [id number] [place] [address] Jul, [facility] [place] [facility] [address] [id number] [place] [address]- [address] 13 Jul, 2011 [facility] [place] [facility] [address] [id number] [place] [address] Jul, [facility] [place] [facility] [address] [id number] [place] [address] 08 Jul, 2011 [facility] [place] [facility] [address] [id number] [place] [address] Jul, [facility] [place] [facility] [address] [id number] [place] [address] Jun, [facility] [place] [facility] [address] [id number] [place] [address] May, [facility] [place] [facility] [address] [id number] [place] [address] May, [facility] [place] [facility] [address] [id number] [place] [address] May, [facility] [place] [facility] [address] [id number] [place] [address] Apr, [facility] [place] [facility] [address] [id number], [place] [address] Apr, [facility] [place] [facility] [address] [id number], [place] [address] Mar, [facility] [place] [facility] [address] [id number], [place] [address] Mar, [facility] [place] [facility] [address] [id number] [place] [address] Mar, [facility] [place] [facility] [address] [id number], [place] [address] Mar, [facility] [place] [facility] [address] [id number], [place] [address] 10 Mar, 2011 [facility] [place] [facility] [address] [facility] [id number] [place] [address] September, [facility] [address] [facility] [id number], [place] [address] Mar, [facility] [address] [facility] [id number], [place] [address] Dec, [facility] [address] [facility] [id number], [place] [address] May, [facility] [address] [facility] [id number], [place] [address] 2546 May, IMMUNIZATIONS No Known Immunizations SOCIAL HISTORY Never Assessed REASON FOR VISIT abdirizak Guy RN PLAN OF CARE Activity Details Follow Up 4 Weeks Reason: VITAL SIGNS Height 63 in 2017-07-07 Weight 165 lbs 2017-07-07 Heart Rate 88 bpm 2017-07-07 BMI 29.23 kg/m2 2017-07-07 Blood pressure systolic 124 mmHg 2017-07-07 Blood pressure diastolic 78 mmHg 2017-07-07 MEDICATIONS Medication Instructions Dosage Frequency Start Date End Date Duration Status Levothyroxine Sodium 125 MCG Orally Once a day 1 tablet 24h 30 days Active Simvastatin 40 mg Orally Once a day 1 tablet in the evening 24h May, Active Effexor XR 37.5 MG Orally Once a day 3 capsules every morning one week, then 2 every morning one week then 1 every morning one week then stop 24h 30 days Active Prozac 10 MG Orally Once a day 1 capsule in the morning 24h Jul, 30 day(s) Active Oxygen Active Albuterol Sulfate (2.5 MG/3ML) 0.083% Inhalation 4 times a day 3 ml 6h May, 30 days Active HydrOXYzine HCl 25 MG Orally Three times a day as needed for anxiety and sleep 1 tablet Jul, 30 day(s) Active Neurontin 600 MG Orally 3 times [...]
--- OUTSIDE RECORDS SUMMARY | 2018-03-04 18:29 | XMS REPORT ---
Author Author JOANN XIAO [facility] Address [address] [place] [address] Care Team Providers Care Upper Doubler Name Role Phone JOANN XIAO Unavailable PROBLEMS Type Condition ICD9-CM Code LJN15-DS Code Onset Dates Condition Status SNOMED Code Problem correction 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.891 Active 917584743 Problem Depression, unspecified depression type F32.9 Active 75478279 Problem Chronic pain syndrome G89.4 Active 708932431 Problem Chronic tension-type headache, intractable G44.221 Active 689779280 Problem Generalized anxiety disorder F41.1 Active 46687437 Problem Mixed hyperlipidemia E78.2 Active 239804045 Problem Hypothyroidism, unspecified E03.9 Active 41277678 Problem Major depressive disorder, recurrent episode, moderate F33.1 Active 625312089 Problem Anxiety F41.9 Active 32227807 ALLERGIES No Information ENCOUNTERS Encounter Location Date Diagnosis [place] [address] 8[address]74- 6945 Nov, [place] [address] [place] [id number] [place] [address] 12624- 9115 Oct, [place] [address] [place] [id number] [place] [address] 91250- 4369 Oct, [facility] [address] [place] [id number] [place] [address] 73403- 6791 Oct, [place] [address] 56149- 0718 September, Chronic pain syndrome G89.4 [facility] [address] [place] [id number] [place] [address] 39873- 8904 September, Depression, unspecified depression type F32.9 and Cervicalgia M54.2 [place] [address] [place] [id number] [place] [address] 04562- 0850 September, Chronic pain syndrome G89.4 [facility] [address] 84045- 2893 Aug, Red stool R19.5 [place] [address] 965233- 9971 Aug, Depression, unspecified depression type F32.9 ; Chronic pain syndrome G89.4 ; Chronic tension-type headache, intractable G44.221 ; Red stool R19.5 ; Hypothyroidism, unspecified E03.9 and Mixed hyperlipidemia E78.2 [place] [address] 27628- 2766 Jul, Major depressive disorder, recurrent episode, moderate F33.1 [place] [address] [place] [id number] [place] [address] 88200- 7294 Jul, [place] [address] 79454- 2183 Jul, Hypothyroidism, unspecified E03.9 [place] [address] 64244- 1000 Jul, Hypothyroidism, unspecified E03.9 [place] [address] [place] [id number] [place] [address] 90226- 3477 Jul, Mixed hyperlipidemia E78.2 [facility] [address] 08103- 1728 Jul, Mixed hyperlipidemia E78.2 [facility] [address] [id number] [place] [address] 94544 -4689 08 Jul, 2017 Bronchitis J40 ; Cough R05 and Wheezing R06.2 [facility] [address] [place] [id number] [place] [address] 73166- 3242 07 Jul, 2017 Major depressive disorder, recurrent episode, moderate F33.1 and Generalized anxiety disorder F41.1 [place] [address] [place] [address]- 6421 Jul, [place] [address] [place] [id number] [place] [address] 27454- 5217 Jul, Major depressive disorder, recurrent episode, moderate F33.1 and Generalized anxiety disorder F41.1 [place] [address] 70191- 9347 Jul, Generalized anxiety disorder F41.1 and Major depressive disorder, recurrent episode, moderate F33.1 [place] [address] 49703- 4098 Jul, Mixed hyperlipidemia E78.2 [place] [address] 28098- 1404 Jun, Depression, unspecified depression type F32.9 ; Cervicalgia M54.2 ; Trigger point M79.1 ; Hypothyroidism, unspecified E03.9 ; Screening, lipid Z13.220 and Mixed hyperlipidemia E78.2 [place] [address] 14281- 0840 Jun, [place] [address] 58084- 3828 May, [place] [address] 46835- 0546 Apr, Acute bronchitis due to other specified organisms J20.8 and Tobacco abuse counseling Z71.6 [place] [address] [place] [id number] [place] [address] 95102- 3189 Mar, Depression, unspecified depression type F32.9 [place] [address] [place] [id number] [place] [address] 26821- 9968 Jan, Chronic pain syndrome G89.4 [place] [address] 99630- 9083 Nov, Anxiety F41.9 ; Depression, unspecified depression type F32.9 and Chronic pain syndrome G89.4 [place] [address] [place] [id number] [place] [address] 13616- 7317 Oct, Anxiety F41.9 and Hypothyroidism, unspecified E03.9 [facility] [address] [place] [address] [id number] [place] [address] 67523 -8088 Oct, Left foot pain M79.672 and Contusion of left foot, 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 S90.32XA [facility] [address] 24515- 3466 Oct, [facility] [address] [place] [address] [id number] [place] [address] 72503- 9997 September, Cervicalgia M54.2 [facility] [address] [place] [id number] [place] [address] 73377- 4170 September, [facility] [address] [place] [address] [id number] [place] [address] 91668- 5366 Aug, Cervicalgia M54.2 [facility] [address] [place] [address] [id number] [place] [address] 25328- 7477 Aug, Cervicalgia M54.2 and Left arm numbness R20.0 [facility] [address] [place] [id number] [place] [address] 41356- 0588 Aug, [facility] [address] [place] [address] [id number] [place] [address] 08386- 9966 Aug, [facility] [address] [place] [address] [id number] [place] [address] 64758- 7075 Jul, [facility] [address] [place] [address] [id number] [place] [address] 04053- 3591 Jul, [facility] [address] [place] [id number] [place] [address] 51944- 2465 Jul, [facility] [address] [place] [address] [id number] [place] [address] 70558- 1710 Jul, Acute midline low back pain without sciatica M54.5 [facility] [address] [place] [address] [id number] [place] [address] 10459- 8731 Jun, Acute midline low back pain without sciatica M54.5 [facility] [address] [place] [address] [id number] [place] [address] 10996- 1510 Jun, Chronic pain syndrome G89.4 and Muscle spasm M62.838 [facility] [address] [place] [id number] [place] [address] 47392- 6530 Jun, [facility] [address] 02241- 4286 Jun, Acute midline low back pain without sciatica M54.5 [facility] [address] 10861- 9517 Jun, [facility] [address] [place] [id number] [place] [address] 09307- 6464 May, [facility] [address] 60374- 0739 May, Hypothyroidism, unspecified E03.9 ; Chronic pain syndrome G89.4 ; Hyperglycemia R73.9 ; Encounter for immunization Z23 and Mixed hyperlipidemia E78.2 [place] [address] [place] [id number] [place] [address] 36917- 3955 Apr, Fatigue 780.79 [facility] [address] [place] [id number] [place] [address] 36802- 8684 Apr, Chronic pain syndrome G89.4 [facility] [address] [place] [address] [id number] [place] [address] 41961- 1767 Mar, [facility] [address] [place] [id number] [place] [address] 27200- 5840 Mar, Chronic pain syndrome G89.4 [facility] [address] [place] [id number] [place] [address] 76169- 4033 Jan, [facility] [address] [place] [id number] [place] [address] 52280- 6578 Dec, [facility] [address] [place] [address] 04024- 6928 Dec, Chronic pain syndrome G89.4 [facility] [address] [place] [id number] [place] [address] 93108- 0954 Dec, Trigger point M79.2 [facility] [address] [place] [id number] [place] [address] 31187- 4839 Nov, Chronic pain syndrome G89.4 [facility] [address] [place] [id number] [place] [address] 65242- 1554 Oct, Chronic pain syndrome G89.4 [place] [address] [place] [id number] [place] [address] 61752- 9665 Oct, Irritant contact dermatitis due to detergent L24.0 [place] [address] [place] [id number] [place] [address] 01919- 8657 September, Hypothyroidism, unspecified E03.9 and Depression, unspecified depression type F32.9 [place] [address] [place] [id number] [place] [address] 99479- 3108 September, Chronic pain syndrome G89.4 [place] [address] [place] [id number] [place] [address] 21144- 3336 Aug, [place] [address] [place] [id number] [place] [address] 76457- 2032 Aug, Trigger point M79.2 [facility] [address] [place] [id number] [place] [address] 96582- 0709 Jul, Chronic pain syndrome G89.4 and correction 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.891 [place] [address] [place] [id number] [place] [address] 94181- 8124 Jul, Chronic pain syndrome G89.4 and technician terminal and repeater 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.891 [facility] [address] [place] [address] 68486- 0437 Jul, [facility] [address] [address]- 8450 Jul, [facility] [id number] [place] [address] 112567- 5694 Jun, [facility] [address] [address]- 5557 May, [facility] [id number] [place] [address] 187196- 8440 May, [facility] [id number] [place] [address] 12601- 4759 May, [facility] [address] [place] [id number] [place] [address] 856296- 7012 May, Pneumonia, organism unspecified, unspecified laterality, unspecified part of lung J18.9 [facility] [id number] [place] [address] 36484- 6649 May, Pneumonia, organism unspecified, unspecified laterality, unspecified part of lung J18.9 [facility] [address] [address]- 1314 Apr, [facility] [id number] [place] [address] 64153- 9793 Apr, [facility] [address] [address]- 5674 Apr, [facility] [address] [place] [address] 80348- 6986 Apr, [facility] [address] [address]- 9252 Apr, [facility] [address] [place] [id number] [place] [address] 43251- 0344 Apr, Epigastric pain R10.13 [facility] [address] [address]- 5886 Mar, Tinea pedis B35.3 and Contact dermatitis and eczema due to detergents L24.0 [facility] [address] [place] [address] 67944- 5181 Mar, [facility] [address] [place] [id number] [place] [address] 45278- 1931 Jan, [facility] [address] [place] [id number] [place] [address] 07559- 2654 Jan, [facility] [address] [place] [id number] [place] [address] 38308- 8519 Jan, [facility] [address] [place] [id number] [place] [address] 24483- 2677 Dec, [facility] [address] [place] [id number] [place] [address] 56068- 3650 Nov, [facility] [address] [place] [id number] [place] [address] 85524- 6890 Nov, Fatigue 780.79 [facility] [address] [place] [id number] [place] [address] 37767- 2055 Nov, [facility] [address] [place] [id number] [place] [address] 36829- 9632 Nov, Unspecified myalgia and myositis 729.1 [place] [address] [place] [id number] [place] [address] 53444- 9641 Nov, Hypercalcemia 275.42 [facility] [address] [place] [id number] [place] [address] 53048- 8289 Nov, Fatigue 780.79 ; Bradycardia 427.89 ; Chronic pain 338.29 and Family history of diabetes mellitus V18.0 [place] [address] [place] [id number] [place] [address] 41759- 7426 Nov, Fatigue 780.79 ; Chronic pain 338.29 ; Family history of diabetes mellitus V18.0 ; Bradycardia 427.89 ; Hypothyroid 244.9 and Anxiety 300.00 [facility] [address] [place] [id number] [place] [address] 28783- 5370 Oct, [facility] [place] [facility] [address] [id number] [place] [address]- 9639 September, [facility] [place] [facility] [address] [id number] [place] [address]- 4995 Aug, [facility] [place] [facility] [address] [id number] [place] [address]- 2940 Aug, [facility] [place] [facility] [address] [id number] [place] [address]- 1646 Aug, [facility] [place] [facility] [address] [id number] [place] [address]- 4528 Jul, [facility] [place] [facility] [address] [id number] [place] [address]- 4899 Jul, [facility] [place] [facility] [address] [facility] [id number] [place] [address]- 7542 Jul, [facility] [place] [facility] [address] [id number] [place] [address]- 2512 Jul, [facility] [place] [facility] [address] [id number] [place] [address]- 3923 Jun, [facility] [place] [facility] [address] [id number] [place] [address]- 1757 Jun, [facility] [place] [facility] [address] [id number] [place] [address]- 4655 Jun, [facility] [place] [facility] [address] [id number] [address]- 1834 Jun, [facility] [place] [facility] [address] [id number] [place] [address]- 4993 Jun, [facility] [place] [facility] [address] [id number] [place] [address]- 4408 Jun, [facility] [place] [facility] [address] [id number] [place] [address]- 3537 May, [facility] [place] [facility] [address] [id number] [place] [address]- 7707 May, [facility] [place] [facility] [address] [id number] [place] [address]- 6721 May, [facility] [place] [facility] [address] [id number] [place] [address]- 4597 May, [facility] [place] [facility] [address] [id number] [place] [address]- 0345 15 May, 2014 [facility] [place] [facility] [address] [id number] [place] [address]- 3909 15 May, 2014 [facility] [place] [facility] [address] [id number] [place] [address]- 0785 May, [facility] [place] [facility] [address] [id number] [place] [address]- 3899 May, [facility] [place] [facility] [address] [id number] [place] [address]- 5884 May, [facility] [place] [facility] [address] [id number] [place] [address]- 2833 May, [facility] [place] [facility] [address] [id number] [place] [address]- 8401 Apr, [facility] [place] [facility] [address] [id number] [place] [address]- 0512 Apr, [facility] [place] [facility] [address] [id number] [place] [address]- 6150 Apr, [facility] [place] [facility] [address] [id number] [place] [address]- 5331 Apr, [facility] [place] [facility] [address] [id number] [place] [address]- 9364 Apr, [facility] [place] [facility] [address] [id number] [place] [address]- 5954 Apr, [facility] [place] [facility] [address] [id number] [place] [address]- 4553 18 Apr, 2014 [facility] [place] [facility] [address] [id number] [place] [address]- 8859 18 Apr, 2014 [facility] [place] [facility] [address] [id number] [place] [address]- 9939 17 Apr, 2014 [facility] [place] [facility] [address] [id number] [place] [address]- 8376 17 Apr, 2014 [facility] [place] [facility] [address] [id number] [place] [address]- 4021 Apr, [facility] [place] [facility] [address] [id number] [place] [address]- 0545 13 Apr, 2014 [facility] [place] [facility] [address] [id number] [place] [address]- 2804 11 Apr, 2014 [facility] [place] [facility] [address] [id number] [place] [address]- 1863 10 Apr, 2014 [facility] [place] [facility] [address] [id number] [place] [address]- 8277 10 Apr, 2014 [facility] [place] [facility] [address] [id number] [place] [address]- 7233 16 Mar, 2014 [facility] [place] [facility] [address] [id number] [place] [address]- 9114 16 Mar, 2014 [facility] [place] [facility] [address] [id number] [place] [address]- 2899 16 Mar, 2014 [facility] [place] [facility] [address] [id number] [place] [address]- 3935 16 Mar, 2014 [facility] [place] [facility] [address] [id number] [place] [address]- 9476 19 Jan, 2014 [facility] [place] [facility] [address] [id number] [place] [address]- 2517 19 Jan, 2014 [facility] [place] [facility] [address] [id number] [place] [address]- 2562 18 Jan, 2014 [facility] [place] [facility] [address] [id number] [place] [address]- 9808 Jan, [facility] [place] [facility] [address] [id number] [place] [address]- 7329 Jan, [facility] [place] [facility] [address] [id number] [place] [address]- 6559 Jan, [facility] [place] [facility] [address] [id number] [place] [address]- 3639 Dec, [facility] [place] [facility] [address] [id number] [place] [address]- 7541 Dec, [facility] [place] [facility] [address] [id number] [place] [address]- 5018 Dec, [facility] [place] [facility] [address] [id number] [place] [address]- 3748 Dec, [facility] [place] [facility] [address] [id number] [place] [address]- 4366 Nov, [facility] [place] [facility] [address] [id number] [place] [address]- 7651 Nov, [facility] [place] [facility] [address] [id number] [place] [address]- 6140 Nov, [facility] [place] [facility] [address] [id number] [place] [address]- 8999 Nov, [facility] [place] [facility] [address] [id number] [place] [address]- 0987 Oct, [facility] [place] [facility] [address] [id number] [place] [address]- 4379 Oct, [facility] [place] [facility] [address] [id number] [place] [address]- 1788 Oct, [facility] [place] [facility] [address] [id number] [place] [address]- 4592 Oct, [facility] [place] [facility] [address] [id number] [place] [address]- 4459 Oct, [facility] [place] [facility] [address] [id number] [place] [address]- 7013 16 Oct, 2013 [facility] [address] [id number] [place] [address]- 8311 Oct, [facility] [place] [facility] [address] [id number] [place] [address]- 1762 Oct, [facility] [address] [id number] [place] [address]- 9800 Oct, [facility] [place] [facility] [address] [id number] [place] [address]- 2658 Oct, [facility] [address] [id number] [place] [address]- 5663 September, [facility] [place] [facility] [address] [id number] [place] [address]- 8659 September, [facility] [address] [id number] [place] [address]- 5802 September, [facility] [address] [id number] [place] [address]- 7510 September, [facility] [place] [facility] [address] [id number] [place] [address]- 2306 September, [facility] [address] [id number] [place] [address]- 8231 September, [facility] [place] [facility] [address] [id number] [place] [address]- 0127 September, [facility] [place] [facility] [address] [id number] [place] [address]- 7955 September, [facility] [place] [facility] [address] [id number] [place] 5132 September, [facility] [place] [facility] [address] [id number] [place] [address]- 1096 Aug, [facility] [place] [facility] [address] [id number] [place] [address]- 7742 Aug, [facility] [place] [facility] [address] [id number] [place] [address]- 0252 Aug, [facility] [place] [facility] [address] [id number] [place] [address]- 4057 Aug, [facility] [place] [facility] [address] [id number] [place] [address]- 1737 Aug, [facility] [place] [facility] [address] [id number] [place] [address]- 4238 Aug, [facility] [place] [facility] [address] [id number] [place] [address]- 9727 Aug, [facility] [place] [facility] [address] [id number] [place] [address]- 4869 Aug, [facility] [place] [facility] [address] [id number] [place] [address] Jul, [facility] [place] [facility] [address] [id number] [place] [address] Jul, [facility] [place] [facility] [address] [id number] [place] [address] Jul, [facility] [place] [facility] [address] [id number] [place] [address] Jul, [facility] [place] [facility] [address] [id number] [place] [address] Jul, [facility] [place] [facility] [address] [id number] [place] [address] Jul, [facility] [place] [facility] [address] [id number] [place] [address] Jul, [facility] [place] [facility] [address] [id number] [place] [address] Jul, [facility] [place] [facility] [address] [id number] [place] [address] Jul, [facility] [place] [facility] [address] [id number] [place] [address]- [address] 17 Jul, 2013 [facility] [place] [facility] [address] [id number] [place] [address]- [address] 17 Jul, 2013 [facility] [place] [facility] [address] [id number] [place] [address] Jul, [facility] [place] [facility] [address] [id number] [place] [address] Jul, [facility] [place] [facility] [address] [id number] [place] [address]- [address] 05 Jul, 2013 [facility] [place] [facility] [address] [id number] [place] [address]- [address] Jul, [facility] [place] [facility] [address] [id number] [place] [address]- [address] Jul, [facility] [place] [facility] [address] [id number] [place] [address]- [address] Jul, [facility] [place] [facility] [address] [id number] [place] [address]- [address] Jul, [facility] [place] [facility] [address] [id number] [place] [address] Jul, [facility] [place] [facility] [address] [id number] [place] [address] Jun, [facility] [place] [facility] [address] [id number] [place] [address] Jun, [facility] [place] [facility] [address] [id number] [place] [address] May, [facility] [place] [facility] [address] [id number] [place] [address] May, [facility] [place] [facility] [address] [id number] [place] [address] Apr, [facility] [place] [facility] [address] [id number] [place] [address]- [address] Apr, [facility] [place] [facility] [address] [id number] [place] [address] 38[address] Apr, [facility] [place] [facility] [address] [id number] [place] [address] Apr, [facility] [place] [facility] [address] [id number] [place] [address]- [address] Apr, [facility] [place] [facility] [address] [id number] [place] [address]- [address] Apr, [facility] [place] [facility] [address] [id number] [place] [address] Mar, [facility] [place] [facility] [address] [id number] [place] [address] Mar, [facility] [place] [facility] [address] [id number] [place] [address] Mar, [facility] [place] [facility] [address] [id number] [place] [address] Mar, [facility] [place] [facility] [address] [id number] [place] [address] Jan, [facility] [place] [facility] [address] [id number] [place] [address]- [address] Jan, [facility] [place] [facility] [address] [id number] [place] [address] Jan, [facility] [place] [facility] [address] [id number], [place] [address] Dec, [facility] [place] [facility] [address] [id number] [place] [address]- [address] Dec, [facility] [place] [facility] [address] [id number] [place] [address] Dec, [facility] [place] [facility] [address] [id number] [place] [address]- [address] Dec, [facility] [place] [facility] [address] [id number] [place] [address] Nov, [facility] [place] [facility] [address] [id number] [place] [address] Nov, [facility] [place] [facility] [address] [id number] [place] [address]- [address] Nov, [facility] [place] [facility] [address] [id number] [place] [address] Oct, [facility] [place] [facility] [address] [id number] [place] [address] Oct, [facility] [place] [facility] [address] [id number] [place] [address] Oct, [facility] [place] [facility] [address] [id number] [place] [address] Oct, [facility] [place] [facility] [address] [id number] [place] [address] Oct, [facility] [place] [facility] [address] [id number] [place] [address] Oct, [facility] [place] [facility] [address] [id number] [place] [address] September, [facility] [place] [facility] [address] [id number] [place] [address] Jul, [facility] [place] [facility] [address] [id number] [place] [address] Jul, [facility] [place] [facility] [address] [id number] [place] [address] Jul, [facility] [place] [facility] [address] [id number] [place] [address] Jul, [facility] [place] [facility] [address] [id number] [place] [address] Jul, [facility] [place] [facility] [address] [id number] [place] [address] Jul, [facility] [place] [facility] [address] [id number] [place] [address] Jun, [facility] [address] [id number] [place] [address] Apr, [facility] [place] [facility] [address] [id number] [place] [address] Apr, [facility] [address] [id number] [place] [address] Jan, [facility] [place] [facility] [address] [id number] [place] [address] Dec, [facility] [address] [id number] [place] [address] Nov, [facility] [place] [facility] [address] [id number] [place] [address] Oct, [facility] [address] [id number] [place] [address] September, [facility] [address] [id number] [place] [address] September, [facility] [address] [id number] [place] [address] Jul, [facility] [address] [id number] [place] [address] Jul, [facility] [place] [facility] [address] [id number] [place] [address] Jul, [facility] [place] [facility] [address] [id number] [place] [address] Jul, [facility] [place] [facility] [address] [id number] [place] [address] Jul, [facility] [place] [facility] [address] [id number] [place] [address] 17 Jul, 2011 [facility] [place] [facility] [address] [id number] [place] [address] 13 Jul, 2011 [facility] [place] [facility] [address] [id number] [place] [address] Jul, [facility] [place] [facility] [address] [id number] [place] 08 Jul, 2011 [facility] [place] [facility] [address] [id number] [place] [address] Jul, [facility] [place] [facility] [address] [id number] [place] [address] Jun, [facility] [place] [facility] [address] [id number] [place] [address] May, [facility] [place] [facility] [address] [id number] [place] [address] May, [facility] [place] [facility] [address] [id number] [place] [address] May, [facility] [place] [facility] [address] [id number], [place] [address] Apr, [facility] [place] [facility] [address] [id number], [place] [address] Apr, [facility] [place] [facility] [address] [facility] [id number], [place] [address] Mar, [facility] [place] [facility] [address] [id number], [place] [address] Mar, [facility] [place] [facility] [address] [id number], [place] [address] Mar, [facility] [place] [facility] [address] [id number], [place] [address] Mar, [facility] [place] [facility] [address] [facility] [id number], [place] [address] Mar, [facility] [place] [facility] [address] [facility] [id number] [place] [address] September, [facility] [place] [facility] [address] [facility] [id number] [place] [id number] Mar, [facility] [address] [facility] [id number] [address] Dec, [facility] [address] [facility] [id number][place] [address] May, [facility] [address] [facility] [id number], [place] [address] May, IMMUNIZATIONS No Known Immunizations SOCIAL HISTORY Never Assessed REASON FOR VISIT intake PLAN OF CARE Activity Details Follow Up 3 Weeks Reason: F/U VITAL SIGNS MEDICATIONS Medication Instructions Dosage Frequency Start Date End Date Duration Status Clobetasol Propionate 0.05 % Externally Twice a day as needed; do not use longer than 2weeks at a time 1 application to affected area Oct, Not-Taking Albuterol Sulfate (2.5 MG/3ML) 0.083% Inhalation 4 times a day 3 ml 6h May, 30 days Active Oxygen Active Simvastatin 40 mg Orally Once a day 1 tablet in the evening 24h May, Active Lipitor 40 MG Orally Once a day 1 tablet 24h Nov, 30 days Not- Taking Levothyroxine Sodium 125 MCG Orally Once a day 1 tablet 24h 30 days Active Effexor XR 150 MG Orally Once a day 1 capsule with food 24h 30 Active Neurontin 600 MG Orally 3 times a day 1 tablet 8h 25 Aug, 2016 30 days Active RESULTS No Results PROCEDURES Procedure Date Ordered Result Body Site Psych diagnostic evaluation, established patient Jul 07, 2017 INSTRUCTIONS MEDICATIONS ADMINISTERED No Known Medications [...]
--- OUTSIDE RECORDS SUMMARY | 2018-03-04 18:29 | XMS REPORT ---
Author Author CEDRICK BARCENAS Organization [facility] Address [address] [place] [address] Care Team Providers Care Sensor Technician Name Role Phone CEDRICK BARCENAS Unavailable PROBLEMS Type Condition ICD9-CM Code VGR04-MF Code Onset Dates Condition Status SNOMED Code Problem penitentiary 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.891 Active 103672838 Problem Depression, unspecified depression type F32.9 Active 70744109 Problem Chronic pain syndrome G89.4 Active 384832583 Problem Chronic tension-type headache, intractable G44.221 Active 948116759 Problem Generalized anxiety disorder F41.1 Active 48633452 Problem Mixed hyperlipidemia E78.2 Active 533252067 Problem Hypothyroidism, unspecified E03.9 Active 04484854 Problem Major depressive disorder, recurrent episode, moderate F33.1 Active 962126222 Problem Anxiety F41.9 Active 75610657 ALLERGIES No Information ENCOUNTERS Encounter Location Date Diagnosis [facility] [id number] [place] [address] 72081- 4927 Nov, [facility] [id number] [place] [address] 82857- 7561 Oct, [facility] [id number] [place] [address] 80587- 2195 Oct, [facility] [id number] [place] [address] 35061- 4796 Oct, [facility] [address] 58500- 4641 September, Chronic pain syndrome G89.4 [facility] [id number] [place] [address] 59316- 5295 September, Depression, unspecified depression type F32.9 and Cervicalgia M54.2 [facility] [id number] [place] [address] 79590- 3780 September, Chronic pain syndrome G89.4 [facility] [id number] [place] [address] 40600- 9897 Aug, Red stool R19.5 [facility] [id number] [place] [address] 48401- 9356 Aug, Depression, unspecified depression type F32.9 ; Chronic pain syndrome G89.4 ; Chronic tension-type headache, intractable G44.221 ; Red stool R19.5 ; Hypothyroidism, unspecified E03.9 and Mixed hyperlipidemia E78.2 [facility] [id number] [place] [address] 56772- 7769 Jul, Major depressive disorder, recurrent episode, moderate F33.1 [facility] [id number] [place] [address] 91565- 4595 Jul, [facility] [address] 52596- 9354 Jul, Hypothyroidism, unspecified E03.9 [facility] [id number] [place] [address] 84514- 2804 Jul, Hypothyroidism, unspecified E03.9 [facility] [id number] [place] [address] 17332- 2448 Jul, Mixed hyperlipidemia E78.2 [facility] [id number] [place] [address] 04316- 2190 Jul, Mixed hyperlipidemia E78.2 [facility] [id number] [place] [address] 96791 -2178 08 Jul, 2017 Bronchitis J40 ; Cough R05 and Wheezing R06.2 [facility] [id number] [place] [address] 68607- 3860 07 Jul, 2017 Major depressive disorder, recurrent episode, moderate F33.1 and Generalized anxiety disorder F41.1 [facility] [id number] [place] [address] 15496- 7614 Jul, [facility] [address] 86794- 3730 Jul, Major depressive disorder, recurrent episode, moderate F33.1 and Generalized anxiety disorder F41.1 [facility] [address] 20626- 6613 Jul, Generalized anxiety disorder F41.1 and Major depressive disorder, recurrent episode, moderate F33.1 [facility] [address] 11384- 7228 Jul, Mixed hyperlipidemia E78.2 [facility] [address] 66362- 5824 Jun, Depression, unspecified depression type F32.9 ; Cervicalgia M54.2 ; Trigger point M79.1 ; Hypothyroidism, unspecified E03.9 ; Screening, lipid Z13.220 and Mixed hyperlipidemia E78.2 [facility] [id number] [place] [address] 07128- 9381 Jun, [facility] [address] 42634- 0852 May, [facility] [address] 61797- 8533 Apr, Acute bronchitis due to other specified organisms J20.8 and Tobacco abuse counseling Z71.6 [facility] [id number] [place] [address] 04517- 2192 Mar, Depression, unspecified depression type F32.9 [facility] [id number] [place] [address] 28354- 8098 Jan, Chronic pain syndrome G89.4 [facility] [id number] [place] [address] 03159- 4755 Nov, Anxiety F41.9 ; Depression, unspecified depression type F32.9 and Chronic pain syndrome G89.4 [facility] [id number] [place] [address] 18782- 3015 Oct, Anxiety F41.9 and Hypothyroidism, unspecified E03.9 [facility] [id number] [place] [address] 51441 -7002 Oct, Left foot pain M79.672 and Contusion of left foot, 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 S90.32XA [facility] [address] 52333- 9132 Oct, [facility] [address] 95640- 9953 September, Cervicalgia M54.2 [facility] [address] 04150- 6395 September, [facility] [address] 27453- 2884 Aug, Cervicalgia M54.2 [facility] [id number] [place] [address] 40902- 9689 Aug, Cervicalgia M54.2 and Left arm numbness R20.0 [facility] [id number] [place] [address] 80589- 8618 Aug, [facility] [id number] [place] [address] 42864- 3184 Aug, [facility] [id number] [place] [address] 98001- 1115 Jul, [facility] [id number] [place] [address] 90901- 4151 Jul, [facility] [address] 89870- 7700 Jul, [facility] [id number] [place] [address] 20746- 1980 Jul, Acute midline low back pain without sciatica M54.5 [facility] [id number] [place] [address] 14411- 8108 Jun, Acute midline low back pain without sciatica M54.5 [facility] [id number] [place] [address] 95517- 7504 Jun, Chronic pain syndrome G89.4 and Muscle spasm M62.838 [facility] [id number] [place] [address] 77651- 0000 Jun, [facility] [id number] [place] [address] 23476- 5199 Jun, Acute midline low back pain without sciatica M54.5 [facility] [address] 62983- 1603 Jun, [facility] [id number] [place] [address] 82555- 7831 May, [facility] [address] 47400- 7418 May, Hypothyroidism, unspecified E03.9 ; Chronic pain syndrome G89.4 ; Hyperglycemia R73.9 ; Encounter for immunization Z23 and Mixed hyperlipidemia E78.2 [facility] [id number] [place] [address] 90823- 2596 Apr, Fatigue 780.79 [facility] [id number] [place] [address] 95352- 6562 Apr, Chronic pain syndrome G89.4 [facility] [id number] [place] [address] 30792- 6050 Mar, [facility] [id number] [place] [address] 78896- 6605 Mar, Chronic pain syndrome G89.4 [facility] [id number] [place] [address] 27119- 9608 Jan, [facility] [id number] [place] [address] 68769- 5829 Dec, [facility] [id number] [place] [address] 43515- 6170 Dec, Chronic pain syndrome G89.4 [facility] [id number] [place] [address] 17358- 6958 Dec, Trigger point M79.2 [facility] [id number] [place] [address] 75068- 3877 Nov, Chronic pain syndrome G89.4 [facility] [id number] [place] [address] 06076- 2391 Oct, Chronic pain syndrome G89.4 [facility] [id number] [place] [address] 13683- 3550 Oct, Irritant contact dermatitis due to detergent L24.0 [facility] [id number] [place] [address] 46484- 7135 September, Hypothyroidism, unspecified E03.9 and Depression, unspecified depression type F32.9 [facility] [id number] [place] [address] 53811- 3901 September, Chronic pain syndrome G89.4 [facility] [id number] [place] [address] 38728- 3197 Aug, [facility] [id number] [place] [address] 85266- 6867 Aug, Trigger point M79.2 [facility] [id number] [place] [address] 31797- 5354 Jul, Chronic pain syndrome G89.4 and penitentiary 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.891 [facility] [id number] [place] [address] 61585- 8847 Jul, Chronic pain syndrome G89.4 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 [facility] [id number] [place] [address] 46539- 1663 Jul, [facility] [address] [address]- 4593 Jul, [facility] [address] 9769 Jun, [facility] [address] [address]- 0152 May, [facility] [id number] [place] [address] 131055- 6947 May, [facility] [address] [address]- 1739 May, [facility] [id number] [place] [address] 807618- 9643 May, Pneumonia, organism unspecified, unspecified laterality, unspecified part of lung J18.9 [facility] [address] [address]- 1609 May, Pneumonia, organism unspecified, unspecified laterality, unspecified part of lung J18.9 [facility] [address] [address]- 6437 Apr, [facility] [address] [address]- 7954 Apr, [facility] [address] [address]- 0147 Apr, [facility] [address] [address]- 1158 Apr, [facility] [id number] [address]- 5744 Apr, [facility] [address] [address]- 8287 Apr, Epigastric pain R10.13 [facility] [id number] [address]- 9930 Mar, Tinea pedis B35.3 and Contact dermatitis and eczema due to detergents L24.0 [facility] [id number] [place] [address] 01580- 2665 Mar, [facility] [id number] [place] [address] 69143- 4890 Jan, [facility] [id number] [place] [address] 81844- 3440 Jan, [facility] [id number] [place] [address] 028040- 4410 Jan, [facility] [id number] [place] [address] 56388- 8195 Dec, [facility] [id number] [place] [address] 84737- 4603 Nov, [facility] [id number] [place] [address] 08857- 4135 Nov, Fatigue 780.79 [facility] [id number] [place] [address] 61112- 2088 Nov, [facility] [id number] [place] [address] 33367- 1101 Nov, Unspecified myalgia and myositis 729.1 [facility] [id number] [place] [address] 30911- 9235 Nov, Hypercalcemia 275.42 [facility] [id number] [place] [address] 97519- 3184 Nov, Fatigue 780.79 ; Bradycardia 427.89 ; Chronic pain 338.29 and Family history of diabetes mellitus V18.0 [facility] [id number] [place] [address] 69622- 2864 Nov, Fatigue 780.79 ; Chronic pain 338.29 ; Family history of diabetes mellitus V18.0 ; Bradycardia 427.89 ; Hypothyroid 244.9 and Anxiety 300.00 [facility] [id number] [place] [address] 54991- 9127 Oct, [facility] [place] [facility] [address] [id number] [place] [address]- 4136 September, [facility] [place] [facility] [address] [id number] [place] [address]- 8187 Aug, [facility] [place] [facility] [address] [id number] [place] [address]- 6731 Aug, [facility] [place] [facility] [address] [id number] [place] [address]- 4865 Aug, [facility] [place] [facility] [address] [id number] [place] [address]- 6243 Jul, [facility] [place] [facility] [address] [id number] [place] [address]- 0817 Jul, [facility] [place] [facility] [address] [id number] [place] [address]- 4680 Jul, [facility] [place] [facility] [address] [id number] [place] [address]- 9044 Jul, [facility] [place] [facility] [address] [id number] [place] [address]- 1710 Jun, [facility] [place] [facility] [address] [id number] [place] [address]- 5398 Jun, [facility] [place] [facility] [address] [id number] [address]- 1561 Jun, [facility] [place] [facility] [address] [id number] [address]- 9010 Jun, [facility] [place] [facility] [address] [id number] [place] [address]- 9977 Jun, [facility] [place] [facility] [address] [facility] [id number] [place] [address]- 9218 Jun, [facility] [place] [facility] [address] [id number] [place] [address]- 7859 May, [facility] [place] [facility] [address] [id number] [place] [address]- 5003 May, [facility] [address] [id number] [place] [address]- 2649 May, [facility] [place] [facility] [address] [id number] [place] [address]- 3207 May, [facility] [address] [id number] [place] [address]- 5175 15 May, 2014 [facility] [place] [facility] [address] [id number] [place] [address]- 6242 15 May, 2014 [facility] [address] [id number] [place] [address]- 6777 May, [facility] [place] [facility] [address] [id number] [place] [address]- 2950 May, [facility] [place] [facility] [address] [id number] [place] [address]- 9826 May, [facility] [place] [facility] [address] [id number] [place] [address]- 1186 May, [facility] [place] [facility] [address] [id number] [place] [address]- 2892 Apr, [facility] [place] [facility] [address] [id number] [place] [address]- 6813 Apr, [facility] [place] [facility] [address] [id number] [place] [address]- 9486 Apr, [facility] [place] [facility] [address] [id number] [place] [address]- 0075 Apr, [facility] [place] [facility] [address] [id number] [place] [address]- 7048 Apr, [facility] [place] [facility] [address] [id number] [place] [address]- 2391 Apr, [facility] [place] [facility] [address] [id number] [place] [address]- 9044 18 Apr, 2014 [facility] [place] [facility] [address] [id number] [place] [address]- 9849 18 Apr, 2014 [facility] [place] [facility] [address] [id number] [place] [address]- 1497 17 Apr, 2014 [facility] [place] [facility] [address] [id number] [place] [address]- 2937 17 Apr, 2014 [facility] [place] [facility] [address] [id number] [place] [address]- 5020 Apr, [facility] [place] [facility] [address] [id number] [place] [address]- 9240 13 Apr, 2014 [facility] [place] [facility] [address] [id number] [place] [address]- 9942 11 Apr, 2014 [facility] [place] [facility] [address] [id number] [place] [address]- 4839 10 Apr, 2014 [facility] [place] [facility] [address] [id number] [place] [address]- 5875 10 Apr, 2014 [facility] [place] [facility] [address] [id number] [place] [address]- 4579 16 Mar, 2014 [facility] [place] [facility] [address] [id number] [address]- 8019 16 Mar, 2014 [facility] [place] [facility] [address] [id number] [address]- 2927 16 Mar, 2014 [facility] [place] [facility] [address] [id number] [address]- 6536 16 Mar, 2014 [facility] [place] [facility] [address] [id number] [place] [address]- 8271 19 Jan, 2014 [facility] [place] [facility] [address] [id number] [place] [address]- 5355 19 Jan, 2014 [facility] [place] [facility] [address] [id number] [address]- 0990 18 Jan, 2014 [facility] [place] [facility] [address] [id number] [address]- 3152 Jan, [facility] [place] [facility] [address] [id number] [place] [address]- 7519 Jan, [facility] [place] [facility] [address] [id number] [place] [address]- 3273 Jan, [facility] [place] [facility] [address] [id number] [place] [address]- 0484 Dec, [facility] [place] [facility] [address] [id number] [place] [address]- 5607 Dec, [facility] [place] [facility] [address] [id number] [place] [address]- 9855 Dec, [facility] [place] [facility] [address] [id number] [place] [address]- 6701 Dec, [facility] [place] [facility] [address] [id number] [place] [address]- 1982 Nov, [facility] [place] [facility] [address] [id number] [place] [address]- 7536 Nov, [facility] [place] [facility] [address] [id number] [place] [address]- 9466 Nov, [facility] [place] [facility] [address] [id number] [place] [address]- 8150 Nov, [facility] [place] [facility] [address] [id number] [place] [address]- 1347 Oct, [facility] [place] [facility] [address] [id number] [place] [address]- 8252 Oct, [facility] [place] [facility] [address] [id number] [place] [address]- 3793 Oct, [facility] [place] [facility] [address] [id number] [place] [address]- 4731 Oct, [facility] [place] [facility] [address] [id number] [place] [address]- 2673 Oct, [facility] [place] [facility] [address] [id number] [place] [address]- 5740 Oct, [facility] [place] [facility] [address] [id number] [place] [address]- 2742 Oct, [facility] [place] [facility] [address] [id number] [place] [address]- 3135 Oct, [facility] [place] [facility] [address] [id number] [place] [address]- 3044 Oct, [facility] [place] [facility] [address] [id number] [place] [address]- 3941 Oct, [facility] [place] [facility] [address] [id number] [place] [address]- 8988 September, [facility] [place] [facility] [address] [id number] [place] [address]- 2049 September, [facility] [place] [facility] [address] [id number] [place] [address]- 9709 September, [facility] [place] [facility] [address] [id number] [place] [address]- 0158 September, [facility] [place] [facility] [address] [id number] [place] [address]- 6840 September, [facility] [place] [facility] [address] [id number] [place] [address]- 1998 September, [facility] [place] [facility] [address] [id number] [place] [address]- 3756 September, [facility] [place] [facility] [address] [id number] [place] 5087 September, [facility] [place] [facility] [address] [id number] [place] 8522 September, [facility] [place] [facility] [address] [id number] [place] [address]- 8573 Aug, [facility] [place] [facility] [address] [id number] [place] [address]- 1054 Aug, [facility] [place] [facility] [address] [id number] [place] [address]- 5261 Aug, [facility] [place] [facility] [address] [id number] [place] [address]- 8988 Aug, [facility] [place] [facility] [address] [id number] [place] [address]- 8722 Aug, [facility] [place] [facility] [address] [id number] [place] [address] Aug, [facility] [place] [facility] [address] [id number] [place] [address] Aug, [facility] [place] [facility] [address] [id number] [place] [address] Aug, [facility] [place] [facility] [address] [id number] [place] [address] Jul, [facility] [place] [facility] [address] [id number] [place] [address] Jul, [facility] [place] [facility] [address] [id number] [place] [address] Jul, [facility] [place] [facility] [address] [id number] [place] [address] Jul, [facility] [place] [facility] [address] [id number] [place] [address] Jul, [facility] [place] [facility] [address] [id number] [place] [address] Jul, [facility] [place] [facility] [address] [id number] [place] [address] Jul, [facility] [place] [facility] [address] [id number] [place] [address] Jul, [facility] [place] [facility] [address] [id number] [place] [address] Jul, [facility] [place] [facility] [address] [id number] [place] [address] 17 Jul, 2013 [facility] [place] [facility] [address] [id number] [place] [address] 17 Jul, 2013 [facility] [place] [facility] [address] [id number] [place] [address] Jul, [facility] [place] [facility] [address] [id number] [place] [address] Jul, [facility] [place] [facility] [address] [id number] [place] [address]- [address] 05 Jul, 2013 [facility] [place] [facility] [address] [id number] [place] [address] Jul, [facility] [place] [facility] [address] [id number] [place] [address]- [address] 10 Jul, 2013 [facility] [place] [facility] [address] [id number] [place] [address]- [address] Jul, [facility] [place] [facility] [address] [id number] [place] [address]- [address] Jul, [facility] [place] [facility] [address] [id number] [place] [address]- [address] Jul, [facility] [place] [facility] [address] [facility] [id number] [place] [address] Jun, [facility] [place] [facility] [address] [id number] [place] [address] Jun, [facility] [place] [facility] [address] [id number] [place] [address] May, [facility] [place] [facility] [address] [id number] [place] [address] May, [facility] [place] [facility] [address] [id number] [place] [address] 39[address] Apr, [facility] [place] [facility] [address] [id number] [place] [address]- [address] Apr, [facility] [place] [facility] [address] [id number] [place] [address]- [address] Apr, [facility] [place] [facility] [address] [id number] [place] [address]- [address]99 Apr, [facility] [place] [facility] [address] [id number] [place] [address] Apr, [facility] [place] [facility] [address] [id number] [place] [address] Apr, [facility] [place] [facility] [address] [id number] [place] [address] Mar, [facility] [place] [facility] [address] [id number] [place] [address] Mar, [facility] [place] [facility] [address] [id number] [place] [address] Mar, [facility] [place] [facility] [address] [id number] [address] Mar, [facility] [place] [facility] [address] [id number] [place] [address] Jan, [facility] [place] [facility] [address] [id number] [address] Jan, [facility] [place] [facility] [address] [id number] [address] Jan, [facility] [place] [facility] [address] [id number] [address] Dec, [facility] [place] [facility] [address] [id number] [place] [address]- [address] Dec, [facility] [place] [facility] [address] [id number] [address] Dec, [facility] [place] [facility] [address] [id number] [place] [address] Dec, [facility] [place] [facility] [address] [id number] [address] Nov, [facility] [address] [id number] [place] [address] Nov, [facility] [place] [facility] [address] [id number] [place] [address] Nov, [facility] [place] [facility] [address] [id number] [place] [address] Oct, [facility] [place] [facility] [address] [id number] [place] [address] Oct, [facility] [place] [facility] [address] [id number] [place] [address] Oct, [facility] [place] [facility] [address] [id number] [place] [address] Oct, [facility] [address] [id number] [place] [address] Oct, [facility] [place] [facility] [address] [id number] [place] [address] Oct, [facility] [place] [facility] [address] [id number] [place] [address] September, [facility] [place] [facility] [address] [id number] [place] [address] Jul, [facility] [place] [facility] [address] [id number] [place] [address] Jul, [facility] [place] [facility] [address] [id number] [place] [address] Jul, [facility] [place] [facility] [address] [id number] [place] [address] Jul, [facility] [place] [facility] [address] [id number] [place] [address] Jul, [facility] [place] [facility] [address] [id number] [place] [address] Jul, [facility] [place] [facility] [address] [id number] [place] [address] Jun, [facility] [place] [facility] [address] [id number] [place] [address] Apr, [facility] [place] [facility] [address] [id number] [place] [address] Apr, [facility] [place] [facility] [address] [id number] [place] [address] Jan, [facility] [place] [facility] [address] [id number] [place] [address]- [address] Dec, [facility] [place] [facility] [address] [id number] [place] [address] Nov, [facility] [place] [facility] [address] [id number] [place] [address] Oct, [facility] [place] [facility] [address] [id number] [place] [address] September, [facility] [place] [facility] [address] [id number] [place] [address] September, [facility] [place] [facility] [address] [id number] [place] [address] Jul, [facility] [place] [facility] [address] [id number] [place] [address] Jul, [facility] [place] [facility] [address] [id number] [place] [address] Jul, [facility] [place] [facility] [address] [id number] [place] [address] Jul, [facility] [place] [facility] [address] [id number] [place] [address] Jul, [facility] [place] [facility] [address] [id number] [place] [address] 17 Jul, 2011 [facility] [place] [facility] [address] [id number] [address] 13 Jul, 2011 [facility] [place] [facility] [address] [id number] [place] [address] Jul, [facility] [place] [facility] [address] [id number] [place] [address]- [address] 08 Jul, 2011 [facility] [place] [facility] [address] [facility] [id number] [place] [address] Jul, [facility] [place] [facility] [address] [id number] [place] [address] Jun, [facility] [place] [facility] [address] [id number] [place] [address] May, [facility] [place] [facility] [address] [facility] [id number] [place] [address] May, [facility] [place] [facility] [address] [facility] [id number] [place] [address] May, [facility] [place] [facility] [address] [facility] [id number] [place] [address] Apr, [facility] [place] [facility] [address] [facility] [id number] [place] [address]- [address] Apr, [facility] [place] [facility] [address] [facility] [id number] [place] [address] Mar, [facility] [place] [facility] [address] [facility] [id number] [address] Mar, [facility] [place] [facility] [address] [facility] [id number] [address] Mar, [facility] [place] [facility] [address] [facility] [id number] [address] Mar, [facility] [place] [facility] [address] [facility] [id number] [address] 10 Mar, 2011 [facility] [place] [facility] [address] [facility] [id number] [address] September, [facility] [place] [facility] [address] [facility] [id number] [place] [address] Mar, [facility] [address] [facility] [id number] [address] Dec, [facility] [address] [facility] [id number] [place] [address] May, [facility] [address] [facility] [id number] [place] [address] May, IMMUNIZATIONS No Known Immunizations SOCIAL HISTORY Never Assessed REASON FOR VISIT Orders from Results PLAN OF CARE VITAL SIGNS MEDICATIONS Medication Instructions Dosage Frequency Start Date End Date Duration Status Lipitor 40 MG Orally Once a day 1 tablet 24h Nov, 30 days Active RESULTS No Results PROCEDURES [...]
--- OUTSIDE RECORDS SUMMARY | 2018-03-04 18:31 | XMS REPORT ---
Author Author CEDRICK BARCENAS Organization [facility] Address [address] [place] [address] Care Team Providers Care Staff Design Engineer Name Role Phone CEDRICK BARCENAS Unavailable PROBLEMS Type Condition ICD9-CM Code [id number] Code Onset Dates Condition Status SNOMED Code Problem assisted 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.891 Active 540203188 Problem Depression, unspecified depression type F32.9 Active 56026402 Problem Chronic pain syndrome G89.4 Active 066435876 Problem Chronic tension-type headache, intractable G44.221 Active 453367178 Problem Generalized anxiety disorder F41.1 Active 44877678 Problem Mixed hyperlipidemia E78.2 Active 595180957 Problem Hypothyroidism, unspecified E03.9 Active 83894482 Problem Major depressive disorder, recurrent episode, moderate F33.1 Active 155656270 Problem Anxiety F41.9 Active 51077008 ALLERGIES No Information ENCOUNTERS Encounter Location Date Diagnosis [facility] [id number] [place] [address] 13878- 9947 Nov, [facility] [id number] [place] [address] 33476- 0744 Oct, [facility] [id number] [place] [address] 91962- 1569 Oct, [facility] [id number] [place] [address] 65803- 6109 September, Chronic pain syndrome G89.4 [facility] [id number] [place] [address] 54534- 9666 September, Depression, unspecified depression type F32.[address] [facility] [id number] [place] [address] 85109- 4408 September, Chronic pain syndrome G89.4 [facility] [id number] [place] [address] 49555- 8939 Aug, Red stool R19.5 [facility] [address] 375719- 6778 Aug, Depression, unspecified depression type F32.9 ; Chronic pain syndrome G89.4 ; Chronic tension-type headache, intractable G44.221 ; Red stool R19.5 ; Hypothyroidism, unspecified E03.9 and Mixed hyperlipidemia E78.2 [place] [address] 65668- 0816 Jul, Major depressive disorder, recurrent episode, moderate F33.1 [place] [address] 38468- 5991 Jul, [place] [address] 43877- 1200 Jul, Hypothyroidism, unspecified E03.9 [place] [address] 78510- 1006 Jul, Hypothyroidism, unspecified E03.9 [place] [address] 59321- 5515 Jul, Mixed hyperlipidemia E78.2 [place] [id number] [place] [address] 89063- 8711 Jul, Mixed hyperlipidemia E78.2 [facility] [address] 51515 -2599 08 Jul, 2017 Bronchitis J40 ; Cough R05 and Wheezing R06.2 [place] [address] 64551- 2969 07 Jul, 2017 Major depressive disorder, recurrent episode, moderate F33.1 and Generalized anxiety disorder F41.1 [facility] [id number] [place] [address] 44033- 1118 05 Jul, 2017 [place] [address] [id number] [place] [address] 87263- 8629 06 Jul, 2017 Major depressive disorder, recurrent episode, moderate F33.1 and Generalized anxiety disorder F41.1 [place] [id number] [place] [address] 95887- 7705 Jul, Generalized anxiety disorder F41.1 and Major depressive disorder, recurrent episode, moderate F33.1 [place] [address] 15020- 4853 Jul, Mixed hyperlipidemia E78.2 [place] [address] 25188- 0517 Jun, Depression, unspecified depression type F32.9 ; Cervicalgia M54.2 ; Trigger point M79.1 ; Hypothyroidism, unspecified E03.9 ; Screening, lipid Z13.220 and Mixed hyperlipidemia E78.[address] 85609- 0978 Jun, [place] [id number] [place] [address] 10144- 8582 May, [address] 51076- 6302 Apr, Acute bronchitis due to other specified organisms J20.8 and Tobacco abuse counseling Z71.6 [place] [id number] [place] [address] 50664- 2738 Mar, Depression, unspecified depression type F32.9 [place] [id number] [place] [address] 90734- 2427 Jan, Chronic pain syndrome G89.[address] 54602- 3160 Nov, Anxiety F41.9 ; Depression, unspecified depression type F32.9 and Chronic pain syndrome G89.4 [place] [id number] [place] [address] 43019- 8208 Oct, Anxiety F41.9 and Hypothyroidism, unspecified E03.9 [facility] [id number] [place] [address] 54337 -1489 Oct, Left foot pain M79.672 and Contusion of left foot, 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 S90.32XA [facility] [id number] [place] [address] 85763- 0351 Oct, [facility] [id number] [place] [address] 43509- 2196 September, Cervicalgia M54.2 [facility] [id number] [place] [address] 91764- 8646 September, [facility] [id number] [place] [address] 70549- 6691 Aug, Cervicalgia M54.2 [facility] [id number] [place] [address] 48697- 3131 Aug, Cervicalgia M54.2 and Left arm numbness R20.0 [facility] [id number] [place] [address] 96211- 3186 Aug, [facility] [id number] [place] [address] 32513- 5057 Aug, [facility] [id number] [place] [address] 20992- 4037 Jul, [facility] [id number] [place] [address] 40273- 1588 Jul, [facility] [id number] [place] [address] 67313- 2345 Jul, [facility] [id number] [place] [address] 58766- 0387 Jul, Acute midline low back pain without sciatica M54.5 [facility] [id number] [place] [address] 92769- 8720 Jun, Acute midline low back pain without sciatica M54.5 [facility] [id number] [place] [address] 77635- 1596 Jun, Chronic pain syndrome G89.4 and Muscle spasm M62.838 [facility] [id number] [place] [address] 90947- 2989 Jun, [facility] [id number] [place] [address] 01009- 4633 Jun, Acute midline low back pain without sciatica M54.5 [facility] [id number] [place] [address] 71577- 4889 Jun, [facility] [id number] [place] [address] 50693- 3505 May, [facility] [id number] [place] [address] 12115- 7339 May, Hypothyroidism, unspecified E03.9 ; Chronic pain syndrome G89.4 ; Hyperglycemia R73.9 ; Encounter for immunization Z23 and Mixed hyperlipidemia E78.2 [facility] [id number] [place] [address] 03095- 2567 Apr, Fatigue 780.[address] [facility] [id number] [place] [address] 27696- 2422 Apr, Chronic pain syndrome G89.4 [facility] [id number] [place] [address] 69914- 4170 Mar, [facility] [id number] [place] [address] 04642- 2306 Mar, Chronic pain syndrome G89.4 [facility] [id number] [place] [address] 59908- 2741 Jan, [facility] [id number] [place] [address] 69578- 4033 Dec, [facility] [id number] [place] [address] 67546- 4193 Dec, Chronic pain syndrome G89.4 [facility] [id number] [place] [address] 56155- 1954 Dec, Trigger point M79.2 [facility] [id number] [place] [address] 31463- 7335 Nov, Chronic pain syndrome G89.4 [facility] [id number] [place] [address] 83819- 8750 Oct, Chronic pain syndrome G89.4 [facility] [id number] [place] [address] 08105- 9410 Oct, Irritant contact dermatitis due to detergent L24.0 [facility] [id number] [place] [address] 73831- 5394 September, Hypothyroidism, unspecified E03.9 and Depression, unspecified depression type F32.9 [facility] [id number] [place] [address] 93333- 8115 September, Chronic pain syndrome G89.4 [facility] [id number] [place] [address] 50999- 4398 Aug, [facility] [id number] [place] [address] 73031- 4847 Aug, Trigger point M79.2 [facility] [id number] [place] [address] 80413- 1560 Jul, Chronic pain syndrome G89.4 and assisted 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.891 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 [id number] [place] [address] 40791- 4936 Jul, [facility] [id number] [place] [address] 64006- 5807 Jul, [facility] [address] [place] [address]- 2697 Jun, [facility] [address] [address]- 0950 May, [facility] [address] [place] [address]- 8333 May, [facility] [id number] [place] [address] 09178- 5295 May, [facility] [id number] [place] [address] 97285- 7698 May, Pneumonia, organism unspecified, unspecified laterality, unspecified part of lung J18.9 [facility] [address] [address]- 5070 May, Pneumonia, organism unspecified, unspecified laterality, unspecified part of lung J18.9 [facility] [id number] [place] [address] 23354- 3422 Apr, [facility] [id number] [place] [address] 31114- 9719 Apr, [facility] [id number] [place] [address] 76948- 2850 Apr, [facility] [address] [place] [address]- 4181 Apr, [facility] [address] [place] [address]- 6671 Apr, [facility] [id number] [place] [address] 92763- 1005 Apr, Epigastric pain R10.13 [facility] [address] [place] [address]- 7248 Mar, Tinea pedis B35.3 and Contact dermatitis and eczema due to detergents L24.0 [facility] [id number] [place] [address] 71233- 3813 Mar, [facility] [address] [place] [address]- [address] Jan, [facility] [id number] [place] [address] 21900- 4483 Jan, [facility] [address]- 5723 Jan, [facility] [id number] [place] [address] 595943- 1938 Dec, [facility] [id number] [place] [address] 547193- 9341 Nov, [facility] [id number] [place] [address] 145348- 2438 Nov, Fatigue 780.79 [facility] [id number] [place] [address] 52921- 1754 Nov, [facility] [id number] [place] [address] 00612- 0904 Nov, Unspecified myalgia and myositis 729.1 [facility] [id number] [place] [address] 87993- 7677 Nov, Hypercalcemia 275.42 [facility] [id number] [place] [address] 71041- 6919 Nov, Fatigue 780.79 ; Bradycardia 427.89 ; Chronic pain 338.29 and Family history of diabetes mellitus V18.0 [facility] [id number] [place] [address] 14227928- 5379 Nov, Fatigue 780.79 ; Chronic pain 338.29 ; Family history of diabetes mellitus V18.0 ; Bradycardia 427.89 ; Hypothyroid 244.[address] [facility] [address] [address]- 6775 Oct, [facility] [id number] [place] [address] 48212263- 5624 September, [facility] [place] [facility] [address] [id number] [place] [address]- 2170 Aug, [facility] [place] [facility] [address] [id number] [place] [address]- 4646 Aug, [facility] [place] [facility] [address] [id number] [place] [address]- 9988 Aug, [facility] [place] [facility] [address] [id number] [place] [address]- 5800 Jul, [facility] [place] [facility] [address] [id number] [place] [address]- 1836 Jul, [facility] [place] [facility] [address] [id number] [place] [address]- 3459 Jul, [facility] [place] [facility] [address] [id number] [place] [address]- 1974 Jul, [facility] [place] [facility] [address] [id number] [place] [address]- 0057 Jun, [facility] [place] [facility] [address] [id number] [place] [address]- 0248 Jun, [facility] [place] [facility] [address] [id number] [place] [address]- 5341 Jun, [facility] [place] [facility] [address] [id number] [place] [address]- 6521 Jun, [facility] [place] [facility] [address] [id number], [place] [address]- 4515 Jun, [facility] [place] [facility] [address] [id number] [place] [address]- 3552 Jun, [facility] [place] [facility] [address] [facility] [id number] [place] [address]- 2033 May, [facility] [place] [facility] [address] [id number] [place] [address]- 7219 May, [facility] [place] [facility] [address] [id number] [place] [address]- 6308 May, [facility] [address] [id number] [place] [address]- 1110 May, [facility] [place] [facility] [address] [id number] [place] [address]- 3206 15 May, 2014 [facility] [address] [id number] [place] [address]- 6389 15 May, 2014 [facility] [place] [facility] [address] [id number] [place] [address]- 8168 May, [facility] [place] [facility] [address] [id number] [place] [address]- 1749 May, [facility] [place] [facility] [address] [id number] [place] [address]- 4623 May, [facility] [place] [facility] [address] [id number] [place] [address]- 8335 May, [facility] [place] [facility] [address] [id number] [place] [address]- 8930 Apr, [facility] [place] [facility] [address] [id number] [place] [address]- 2607 Apr, [facility] [address] [id number] [place] [address]- 8322 Apr, [facility] [place] [facility] [address] [id number] [place] [address]- 5511 Apr, [facility] [place] [facility] [address] [id number] [place] [address]- 3958 Apr, [facility] [place] [facility] [address] [id number] [place] [address]- 9486 Apr, [facility] [place] [facility] [address] [id number] [place] [address]- 2289 Apr, [facility] [place] [facility] [address] [id number] [place] [address]- 4082 Apr, [facility] [place] [facility] [address] [id number] [place] [address]- 7467 17 Apr, 2014 [facility] [place] [facility] [address] [id number] [place] [address]- 6972 17 Apr, 2014 [facility] [place] [facility] [address] [id number] [place] [address]- 2260 13 Apr, 2014 [facility] [place] [facility] [address] [id number] [place] [address]- 5263 13 Apr, 2014 [facility] [place] [facility] [address] [id number] [place] [address]- 0408 11 Apr, 2014 [facility] [place] [facility] [address] [id number] [place] [address]- 7817 10 Apr, 2014 [facility] [place] [facility] [address] [id number] [place] [address]- 0359 10 Apr, 2014 [facility] [place] [facility] [address] [id number] [place] [address]- 8193 16 Mar, 2014 [facility] [place] [facility] [address] [id number] [place] [address]- 9637 16 Mar, 2014 [facility] [place] [facility] [address] [id number], [place] [address]- 1918 16 Mar, 2014 [facility] [place] [facility] [address] [id number], [place] [address]- 5823 16 Mar, 2014 [facility] [place] [facility] [address] [id number], [place] [address]- 0456 19 Jan, 2014 [facility] [place] [facility] [address] [id number] [place] [address]- 7404 19 Jan, 2014 [facility] [place] [facility] [address] [id number] [place] [address]- 5872 18 Jan, 2014 [facility] [place] [facility] [address] [id number], [place] [address]- 7866 18 Jan, 2014 [facility] [place] [facility] [address] [id number], [place] [address]- 6678 Jan, [facility] [place] [facility] [address] [id number] [place] [address]- 8497 Jan, [facility] [place] [facility] [address] [id number] [place] [address]- 0812 Dec, [facility] [place] [facility] [address] [id number] [place] [address]- 1474 Dec, [facility] [place] [facility] [address] [id number] [place] [address]- 3191 Dec, [facility] [place] [facility] [address] [id number] [place] [address]- 3858 Dec, [facility] [place] [facility] [address] [id number] [place] [address]- 6115 Nov, [facility] [place] [facility] [address] [id number] [place] [address]- 8484 Nov, [facility] [place] [facility] [address] [id number] [place] [address]- 2786 Nov, [facility] [place] [facility] [address] [id number] [place] [address]- 8251 Nov, [facility] [place] [facility] [address] [id number] [place] [address]- 2311 Oct, [facility] [place] [facility] [address] [id number] [place] [address]- 6965 Oct, [facility] [place] [facility] [address] [id number] [place] [address]- 7883 Oct, [facility] [place] [facility] [address] [id number] [place] [address]- 6301 Oct, [facility] [place] [facility] [address] [id number] [place] [address]- 1485 Oct, [facility] [place] [facility] [address] [id number] [place] [address]- 8372 Oct, [facility] [place] [facility] [address] [id number] [place] [address]- 1338 16 Oct, 2013 [facility] [place] [facility] [address] [id number] [place] [address]- 7020 Oct, [facility] [place] [facility] [address] [id number] [place] [address]- 0826 Oct, [facility] [place] [facility] [address] [id number] [place] [address] Oct, [facility] [place] [facility] [address] [id number] [place] [address] September, [facility] [place] [facility] [address] [id number] [place] [address] September, [facility] [place] [facility] [address] [id number] [place] [address] September, [facility] [place] [facility] [address] [id number] [place] [address] September, [facility] [place] [facility] [address] [id number] [place] [address] September, [facility] [place] [facility] [address] [id number] [place] [address] September, [facility] [place] [facility] [address] [id number] [place] [address] September, [facility] [place] [facility] [address] [id number] [place] [address] September, [facility] [place] [facility] [address] [id number] [place] [address] September, [facility] [place] [facility] [address] [id number] [place] [address] Aug, [facility] [place] [facility] [address] [id number] [place] [address] Aug, [facility] [place] [facility] [address] [id number] [place] [address] Aug, [facility] [place] [facility] [address] [id number] [place] [address] Aug, [facility] [place] [facility] [address] [id number] [place] [address] Aug, [facility] [place] [facility] [address] [id number] [place] [address] Aug, [facility] [place] [facility] [address] [id number] [place] [address] Aug, [facility] [place] [facility] [address] [id number] [place] [address] Aug, [facility] [place] [facility] [address] [id number] [place] [address] Jul, [facility] [place] [facility] [address] [id number] [place] [address] Jul, [facility] [place] [facility] [address] [id number] [place] [address] Jul, [facility] [place] [facility] [address] [id number] [place] [address] Jul, [facility] [place] [facility] [address] [id number] [place] [address] 24 Jul, 2013 [facility] [place] [facility] [address] [id number] [place] [address] Jul, [facility] [place] [facility] [address] [id number] [place] [address] Jul, [facility] [place] [facility] [address] [id number] [place] [address] 18 Jul, 2013 [facility] [place] [facility] [address] [id number] [place] [address] 18 Jul, 2013 [facility] [place] [facility] [address] [id number] [place] [address] 17 Jul, 2013 [facility] [place] [facility] [address] [id number] [place] [address] 17 Jul, 2013 [facility] [place] [facility] [address] [id number] [place] [address] Jul, [facility] [place] [facility] [address] [id number] [place] [address] Jul, [facility] [place] [facility] [address] [id number] [place] [address] 05 Jul, 2013 [facility] [place] [facility] [address] [id number] [place] [address] 05 Jul, 2013 [facility] [place] [facility] [address] [id number] [place] [address] Jul, [facility] [place] [facility] [address] [id number] [place] [address] Jul, [facility] [place] [facility] [address] [id number] [place] [address] Jul, [facility] [place] [facility] [address] [id number] [place] [address] Jul, [facility] [place] [facility] [address] [id number] [place] [address] Jun, [facility] [place] [facility] [address] [facility] [id number] [place] [address] Jun, [facility] [place] [facility] [address] [id number] [place] [address] May, [facility] [place] [facility] [address] [id number] [place] [address] May, [facility] [place] [facility] [address] [id number] [place] [address] Apr, [facility] [place] [facility] [address] [id number] [place] [address] Apr, [facility] [place] [facility] [address] [id number] [place] [address] Apr, [facility] [place] [facility] [address] [id number] [place] [address] Apr, [facility] [place] [facility] [address] [id number] [place] [address] Apr, [facility] [place] [facility] [address] [id number] [place] [address] Apr, [facility] [place] [facility] [address] [id number] [place] [address] Mar, [facility] [place] [facility] [address] [id number] [place] [address] Mar, [facility] [place] [facility] [address] [id number] [place] [address] Mar, [facility] [place] [facility] [address] [address] [id number] [place] [address] Mar, [facility] [place] [facility] [address] [id number], [place] [address] Jan, [facility] [place] [facility] [address] [id number] [place] [address] Jan, [facility] [place] [facility] [address] [id number], [place] [address] Jan, [facility] [place] [facility] [address] [id number], [place] [address] Dec, [facility] [place] [facility] [address] [id number], [place] [address] Dec, [facility] [place] [facility] [address] [id number], [place] [address] Dec, [facility] [place] [facility] [address] [id number], [place] [address] Dec, [facility] [place] [facility] [address] [id number], [place] [address] Nov, [facility] [place] [facility] [address] [id number], [place] [address] Nov, [facility] [address] [id number] [place] [address] Nov, [facility] [place] [facility] [address] [id number] [place] [address] Oct, [facility] [place] [facility] [address] [id number] [place] [address] Oct, [facility] [place] [facility] [address] [id number] [place] [address] Oct, [facility] [place] [facility] [address] [id number] [place] [address] Oct, [facility] [place] [facility] [address] [id number] [place] [address] Oct, [facility] [address] [id number] [place] [address] Oct, [facility] [place] [facility] [address] [id number] [place] [address] September, [facility] [place] [facility] [address] [id number] [place] [address] Jul, [facility] [place] [facility] [address] [id number] [place] [address] Jul, [facility] [place] [facility] [address] [id number] [place] [address] Jul, [facility] [place] [facility] [address] [id number] [place] [address] Jul, [facility] [place] [facility] [address] [id number] [place] [address] Jul, [facility] [place] [facility] [address] [id number] [place] [address] Jul, [facility] [place] [facility] [address] [id number] [place] [address] Jun, [facility] [place] [facility] [address] [id number] [place] [address] 10 Apr, 2012 [facility] [place] [facility] [address] [id number] [place] [address] 10 Apr, 2012 [facility] [place] [facility] [address] [id number] [place] [address] 24 Jan, 2012 [facility] [place] [facility] [address] [id number] [place] [address] Dec, [facility] [place] [facility] [address] [id number] [place] [address] Nov, [facility] [place] [facility] [address] [id number] [place] [address] Oct, [facility] [place] [facility] [address] [facility] [id number] [place] [address] September, [facility] [place] [facility] [address] [id number] [place] [address] September, [facility] [place] [facility] [address] [id number] [place] [address] Jul, [facility] [place] [facility] [address] [id number] [place] [address] Jul, [facility] [place] [facility] [address] [facility] [id number] [place] [address] Jul, [facility] [place] [facility] [address] [id number] [place] [address] Jul, [facility] [place] [facility] [address] [id number] [place] [address] Jul, [facility] [place] [facility] [address] [id number] [place] [address] 17 Jul, 2011 [facility] [place] [facility] [address] [id number] [place] [address] 13 Jul, 2011 [facility] [place] [facility] [address] [id number] [place] [address] 47[address] Jul, [facility] [place] [facility] [address] [id number] [place] [address] Jul, [facility] [place] [facility] [address] [id number] [place] [address] 07 Jul, 2011 [facility] [place] [facility] [address] [facility] [id number] [place] [address] Jun, [facility] [place] [facility] [address] [id number] [place] [address] May, [facility] [place] [facility] [address] [id number] [place] [address] May, [facility] [place] [facility] [address] [facility] [id number] [place] [address] May, [facility] [place] [facility] [address] [facility] [id number] [place] [address] Apr, [facility] [place] [facility] [address] [facility] [id number] [place] [address] Apr, [facility] [place] [facility] [address] [facility] [id number] [place] [address] Mar, [facility] [place] [facility] [address] [facility] [id number] [place] [address] Mar, [facility] [place] [facility] [address] [facility] [id number], [place] [address] Mar, [facility] [place] [facility] [address] [facility] [id number], [place] [address] Mar, [facility] [place] [facility] [address] [facility] [id number], [place] [address] Mar, [facility] [place] [facility] [address] [facility] [id number] [place] [address] September, [facility] [place] [facility] [address] [facility] [id number] [place] [address] 28 Mar, 2010 [facility] [place] [facility] [address] [facility] [id number] [place] [address] Dec, [facility] [address] [facility] [id number] [place] [address] May, [facility] [address] [facility] [id number] [place] [address] May, IMMUNIZATIONS No Known Immunizations SOCIAL HISTORY Never Assessed REASON FOR VISIT needs appt PLAN OF CARE VITAL SIGNS MEDICATIONS Unknown [...]
--- OUTSIDE RECORDS SUMMARY | 2018-03-04 18:35 | XMS REPORT ---
Author Author CEDRICK BARCENAS Organization [facility] Address [address] [place] [address] Care Team Providers Care History Department Chair Name Role Phone CEDRICK BARCENAS Unavailable PROBLEMS Type Condition ICD9-CM Code [id number] Code Onset Dates Condition Status SNOMED Code Problem detention 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.891 Active 609715915 Problem Depression, unspecified depression type F32.9 Active 23008835 Problem Chronic pain syndrome G89.4 Active 261463181 Problem Chronic tension-type headache, intractable G44.221 Active 735170383 Problem Generalized anxiety disorder F41.1 Active 27895253 Problem Mixed hyperlipidemia E78.2 Active 461386075 Problem Hypothyroidism, unspecified E03.9 Active 17706499 Problem Major depressive disorder, recurrent episode, moderate F33.1 Active 843971921 Problem Anxiety F41.9 Active 74587171 ALLERGIES No Information ENCOUNTERS Encounter Location Date Diagnosis [facility] [id number] [place] [address] 54508- 2428 Nov, [facility] [id number] [place] [address] 40684- 6034 Oct, [facility] [id number] [place] [address] 40259- 5315 Oct, [facility] [id number] [place] [address] 30103- 2188 Oct, [facility] [address] 01924- 4600 September, Chronic pain syndrome G89.4 [facility] [id number] [place] [address] 41206- 4508 September, Depression, unspecified depression type F32.9 and Cervicalgia M54.2 [place] [facility] [id number] [place] [address] 75520- 9937 September, Chronic pain syndrome G89.4 [facility] [id number] [place] [address] 78292- 2424 Aug, Red stool R19.5 [facility] [facility] [id number] [place] [address] 43769- 0219 Aug, Depression, unspecified depression type F32.9 ; Chronic pain syndrome G89.4 ; Chronic tension-type headache, intractable G44.221 ; Red stool R19.5 ; Hypothyroidism, unspecified E03.9 and Mixed hyperlipidemia E78.2 [place] [id number] [place] [address] 80939- 7145 Jul, Major depressive disorder, recurrent episode, moderate F33.1 [facility] [id number] [place] [address] 02615- 2546 Jul, [facility] [address] 26845- 2101 Jul, Hypothyroidism, unspecified E03.9 [facility] [facility] [id number] [place] [address] 85268- 0917 Jul, Hypothyroidism, unspecified E03.9 [facility] [id number] [place] [address] 71639- 5733 Jul, Mixed hyperlipidemia E78.2 [place] [facility] [id number] [place] [address] 79108- 7253 Jul, Mixed hyperlipidemia E78.2 [facility] [id number] [place] [address] 93541 -0375 08 Jul, 2017 Bronchitis J40 ; Cough R05 and Wheezing R06.2 [place] [id number] [place] [address] 28577- 6746 07 Jul, 2017 Major depressive disorder, recurrent episode, moderate F33.1 and Generalized anxiety disorder F41.1 [place] [id number] [place] [address] 99933- 1113 Jul, [place] [address] 57222- 0824 Jul, Major depressive disorder, recurrent episode, moderate F33.1 and Generalized anxiety disorder F41.1 [place] [address] 99728- 4891 Jul, Generalized anxiety disorder F41.1 and Major depressive disorder, recurrent episode, moderate F33.1 [place] [address] 74750- 5104 Jul, Mixed hyperlipidemia E78.2 [place] [address] 69048- 6205 Jun, Depression, unspecified depression type F32.9 ; Cervicalgia M54.2 ; Trigger point M79.1 ; Hypothyroidism, unspecified E03.9 ; Screening, lipid Z13.220 and Mixed hyperlipidemia E78.2 [place] [id number] [place] [address] 01268- 9815 Jun, [place] [address] 77854- 0820 May, [place] [address] 33580- 0362 Apr, Acute bronchitis due to other specified organisms J20.8 and Tobacco abuse counseling Z71.6 [place] [id number] [place] [address] 49828- 0850 Mar, Depression, unspecified depression type F32.9 [facility] [facility] [id number] [place] [address] 38980- 5183 Jan, Chronic pain syndrome G89.4 [place] [id number] [place] [address] 10359- 3929 Nov, Anxiety F41.9 ; Depression, unspecified depression type F32.9 and Chronic pain syndrome G89.4 [facility] [id number] [place] [address] 27542- 2447 Oct, Anxiety F41.9 and Hypothyroidism, unspecified E03.9 [facility] [id number] [place] [address] 94380 -0868 Oct, Left foot pain M79.672 and Contusion of left foot, 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 S90.32XA [facility] [address] 35993- 2527 Oct, [facility] [address] 32008- 3360 September, Cervicalgia M54.2 [facility] [address] 95642- 9892 September, [facility] [address] 94397- 9617 Aug, Cervicalgia M54.2 [facility] [id number] [place] [address] 08096- 1402 Aug, Cervicalgia M54.2 and Left arm numbness R20.0 [facility] [id number] [place] [address] 03598- 8979 Aug, [facility] [id number] [place] [address] 93271- 3067 Aug, [facility] [id number] [place] [address] 51107- 7322 Jul, [facility] [id number] [place] [address] 87908- 2015 Jul, [facility] [address] 68615- 8521 Jul, [facility] [id number] [place] [address] 62173- 0282 Jul, Acute midline low back pain without sciatica M54.5 [facility] [id number] [place] [address] 87259- 6173 Jun, Acute midline low back pain without sciatica M54.5 [facility] [id number] [place] [address] 88802- 3432 Jun, Chronic pain syndrome G89.4 and Muscle spasm M62.838 [facility] [id number] [place] [address] 60722- 7497 Jun, [facility] [id number] [place] [address] 38135- 4699 Jun, Acute midline low back pain without sciatica M54.5 [place] [address] 91384- 5624 Jun, [facility] [id number] [place] [address] 81607- 6438 May, [facility] [address] 88693- 8653 May, Hypothyroidism, unspecified E03.9 ; Chronic pain syndrome G89.4 ; Hyperglycemia R73.9 ; Encounter for immunization Z23 and Mixed hyperlipidemia E78.2 [place] [id number] [place] [address] 52245- 0368 Apr, Fatigue 780.79 [facility] [id number] [place] [address] 80320- 9697 Apr, Chronic pain syndrome G89.4 [facility] [id number] [place] [address] 98116- 4349 Mar, [facility] [id number] [place] [address] 29755- 7184 Mar, Chronic pain syndrome G89.4 [facility] [id number] [place] [address] 55695- 2537 Jan, [facility] [id number] [place] [address] 09509- 4977 Dec, [facility] [address] [place] [address] 83496- 8155 Dec, Chronic pain syndrome G89.4 [place] [id number] [place] [address] 27285- 8822 Dec, Trigger point M79.2 [facility] [id number] [place] [address] 26275- 2214 Nov, Chronic pain syndrome G89.4 [facility] [id number] [place] [address] 53506- 8567 Oct, Chronic pain syndrome G89.4 [place] [id number] [place] [address] 70355- 5692 Oct, Irritant contact dermatitis due to detergent L24.0 [place] [id number] [place] [address] 84794- 5731 September, Hypothyroidism, unspecified E03.9 and Depression, unspecified depression type F32.9 [place] [id number] [place] [address] 86438- 7779 September, Chronic pain syndrome G89.4 [place] [id number] [place] [address] 20219- 7198 Aug, [place] [id number] [place] [address] 36943- 6413 Aug, Trigger point M79.2 [place] [id number] [place] [address] 20142- 4813 Jul, Chronic pain syndrome G89.4 and detention 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.891 [place] [id number] [place] [address] 14041- 8515 Jul, Chronic 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 syndrome G89.4 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 [place] [id number] [place] [address] 69681- 0869 Jul, [place] [address] [address]- 1000 Jul, [facility] [address] 8062 Jun, [facility] [address] [address]- 8277 May, [facility] [id number] [place] [address] 962427- 5437 May, [facility] [address] [address]- 3461 May, [facility] [id number] [place] [address] 429367- 5921 May, Pneumonia, organism unspecified, unspecified laterality, unspecified part of lung J18.9 [facility] [address] [address]- 1902 May, Pneumonia, organism unspecified, unspecified laterality, unspecified part of lung J18.9 [facility] [address] [address]- 7793 Apr, [facility] [address] [address]- 8630 Apr, [facility] [address] [address]- 6701 Apr, [facility] [address] [address]- 6234 Apr, [facility] [id number] [address]- 0731 Apr, [facility] [address] [address]- 1646 Apr, Epigastric pain R10.13 [facility] [id number] [address]- 7931 Mar, Tinea pedis B35.3 and Contact dermatitis and eczema due to detergents L24.0 [facility] [address] [place] [address] 61945- 7206 Mar, [facility] [id number] [place] [address] 37784- 6980 Jan, [facility] [id number] [place] [address] 29806- 3108 Jan, [facility] [id number] [place] [address] 343199- 1804 Jan, [facility] [id number] [place] [address] 81390- 6426 Dec, [facility] [id number] [place] [address] 55709- 2269 Nov, [facility] [id number] [place] [address] 98242- 8111 Nov, Fatigue 780.79 [facility] [id number] [place] [address] 08055- 5060 Nov, [facility] [id number] [place] [address] 04256- 3896 Nov, Unspecified myalgia and myositis 729.1 [place] [id number] [place] [address] 74964- 2840 Nov, Hypercalcemia 275.42 [place] [id number] [place] [address] 50195- 2414 Nov, Fatigue 780.79 ; Bradycardia 427.89 ; Chronic pain 338.29 and Family history of diabetes mellitus V18.0 [place] [id number] [place] [address] 11238- 2068 Nov, Fatigue 780.79 ; Chronic pain 338.29 ; Family history of diabetes mellitus V18.0 ; Bradycardia 427.89 ; Hypothyroid 244.9 and Anxiety 300.00 [facility] [id number] [place] [address] 12968- 9360 Oct, [facility] [place] [facility] [address] [id number] [place] [address]- 9850 September, [facility] [place] [facility] [address] [id number] [place] [address]- 7411 Aug, [facility] [place] [facility] [address] [id number] [place] [address]- 2955 Aug, [facility] [place] [facility] [address] [id number] [place] [address]- 2267 Aug, [facility] [place] [facility] [address] [id number] [place] [address]- 9621 Jul, [facility] [place] [facility] [address] [id number] [place] [address]- 6329 Jul, [facility] [place] [facility] [address] [id number] [place] [address]- 4527 Jul, [facility] [place] [facility] [address] [id number] [place] [address]- 3675 Jul, [facility] [place] [facility] [address] [id number] [place] [address]- 4704 Jun, [facility] [place] [facility] [address] [id number] [place] [address]- 6234 Jun, [facility] [place] [facility] [address] [id number] [address]- 3457 Jun, [facility] [place] [facility] [address] [id number] [address]- 2914 Jun, [facility] [place] [facility] [address] [id number] [place] [address]- 3134 Jun, [facility] [place] [facility] [address] [facility] [id number] [place] [address]- 3629 Jun, [facility] [place] [facility] [address] [id number] [place] [address]- 4427 May, [facility] [place] [facility] [address] [id number] [place] [address]- 3372 May, [facility] [address] [id number] [place] [address]- 2809 May, [facility] [place] [facility] [address] [id number] [place] [address]- 4353 May, [facility] [address] [id number] [place] [address]- 6620 15 May, 2014 [facility] [place] [facility] [address] [id number] [place] [address]- 1505 15 May, 2014 [facility] [address] [id number] [place] [address]- 2803 May, [facility] [place] [facility] [address] [id number] [place] [address]- 6565 May, [facility] [place] [facility] [address] [id number] [place] [address]- 5958 May, [facility] [place] [facility] [address] [id number] [place] [address]- 9455 May, [facility] [place] [facility] [address] [id number] [place] [address]- 6826 Apr, [facility] [place] [facility] [address] [id number] [place] [address]- 7438 Apr, [facility] [place] [facility] [address] [id number] [place] [address]- 6536 Apr, [facility] [place] [facility] [address] [id number] [place] [address]- 2954 Apr, [facility] [place] [facility] [address] [id number] [place] [address]- 0503 Apr, [facility] [place] [facility] [address] [id number] [place] [address]- 8259 Apr, [facility] [place] [facility] [address] [id number] [place] [address]- 4205 18 Apr, 2014 [facility] [place] [facility] [address] [id number] [place] [address]- 4596 18 Apr, 2014 [facility] [place] [facility] [address] [id number] [place] [address]- 6492 17 Apr, 2014 [facility] [place] [facility] [address] [id number] [place] [address]- 3744 17 Apr, 2014 [facility] [place] [facility] [address] [id number] [place] [address]- 6864 Apr, [facility] [place] [facility] [address] [id number] [place] [address]- 5785 13 Apr, 2014 [facility] [place] [facility] [address] [id number] [place] [address]- 4761 11 Apr, 2014 [facility] [place] [facility] [address] [id number] [place] [address]- 6729 10 Apr, 2014 [facility] [place] [facility] [address] [id number] [place] [address]- 2090 10 Apr, 2014 [facility] [place] [facility] [address] [id number] [place] [address]- 8049 16 Mar, 2014 [facility] [place] [facility] [address] [id number] [address]- 6607 16 Mar, 2014 [facility] [place] [facility] [address] [id number] [address]- 7186 16 Mar, 2014 [facility] [place] [facility] [address] [id number] [address]- 9021 16 Mar, 2014 [facility] [place] [facility] [address] [id number] [place] [address]- 3539 19 Jan, 2014 [facility] [place] [facility] [address] [id number] [place] [address]- 2877 19 Jan, 2014 [facility] [place] [facility] [address] [id number] [place] [address]- 9749 18 Jan, 2014 [facility] [place] [facility] [address] [id number] [address]- 3956 Jan, [facility] [place] [facility] [address] [id number] [place] [address]- 9906 Jan, [facility] [place] [facility] [address] [id number] [place] [address]- 2537 Jan, [facility] [place] [facility] [address] [id number] [place] [address]- 2687 Dec, [facility] [place] [facility] [address] [id number] [place] [address]- 9998 Dec, [facility] [place] [facility] [address] [id number] [place] [address]- 9580 Dec, [facility] [place] [facility] [address] [id number] [place] [address]- 5230 Dec, [facility] [place] [facility] [address] [id number] [place] [address]- 2967 Nov, [facility] [place] [facility] [address] [id number] [place] [address]- 8639 Nov, [facility] [place] [facility] [address] [id number] [place] [address]- 5362 Nov, [facility] [place] [facility] [address] [id number] [place] [address]- 9069 Nov, [facility] [place] [facility] [address] [id number] [place] [address]- 2956 Oct, [facility] [place] [facility] [address] [id number] [place] [address]- 6893 Oct, [facility] [place] [facility] [address] [id number] [place] [address]- 4011 Oct, [facility] [place] [facility] [address] [id number] [place] [address]- 9440 Oct, [facility] [place] [facility] [address] [id number] [place] [address]- 8993 Oct, [facility] [place] [facility] [address] [id number] [place] [address]- 3619 Oct, [facility] [place] [facility] [address] [id number] [place] [address]- 1565 Oct, [facility] [place] [facility] [address] [id number] [place] [address]- 1417 Oct, [facility] [place] [facility] [address] [id number] [place] [address]- 7219 Oct, [facility] [place] [facility] [address] [id number] [place] [address]- 2986 Oct, [facility] [place] [facility] [address] [id number] [place] [address]- 3356 September, [facility] [place] [facility] [address] [id number] [place] [address]- 4375 September, [facility] [place] [facility] [address] [id number] [place] [address]- 1206 September, [facility] [place] [facility] [address] [id number] [place] [address] September, [facility] [place] [facility] [address] [id number] [place] [address] September, [facility] [place] [facility] [address] [id number] [place] [address] September, [facility] [place] [facility] [address] [id number] [place] [address] September, [facility] [place] [facility] [address] [id number] [place] [address] September, [facility] [place] [facility] [address] [id number] [place] [address] September, [facility] [place] [facility] [address] [id number] [place] [address] Aug, [facility] [place] [facility] [address] [id number] [place] [address] Aug, [facility] [place] [facility] [address] [id number] [place] [address] Aug, [facility] [place] [facility] [address] [id number] [place] [address] Aug, [facility] [place] [facility] [address] [id number] [place] [address] Aug, [facility] [place] [facility] [address] [id number] [place] [address] Aug, [facility] [place] [facility] [address] [id number] [place] [address] Aug, [facility] [place] [facility] [address] [id number] [place] [address] Aug, [facility] [place] [facility] [address] [id number] [place] [address] Jul, [facility] [place] [facility] [address] [id number] [place] [address] Jul, [facility] [place] [facility] [address] [id number] [place] [address] Jul, [facility] [place] [facility] [address] [id number] [place] [address] Jul, [facility] [place] [facility] [address] [id number] [place] [address] Jul, [facility] [place] [facility] [address] [id number] [place] [address] Jul, [facility] [place] [facility] [address] [id number] [place] [address] Jul, [facility] [place] [facility] [address] [id number] [place] [address] Jul, [facility] [place] [facility] [address] [id number] [place] [address] Jul, [facility] [place] [facility] [address] [id number] [place] [address] 17 Jul, 2013 [facility] [place] [facility] [address] [id number] [place] [address] 17 Jul, 2013 [facility] [place] [facility] [address] [id number] [place] [address] Jul, [facility] [place] [facility] [address] [id number] [place] [address] Jul, [facility] [place] [facility] [address] [id number] [place] [address]- [address] 05 Jul, 2013 [facility] [place] [facility] [address] [id number] [place] [address] Jul, [facility] [place] [facility] [address] [id number] [place] [address] 10 Jul, 2013 [facility] [place] [facility] [address] [id number] [place] [address] Jul, [facility] [place] [facility] [address] [id number] [place] [address] Jul, [facility] [place] [facility] [address] [id number] [place] [address] Jul, [facility] [place] [facility] [address] [facility] [id number] [place] [address] Jun, [facility] [place] [facility] [address] [id number] [place] [address] Jun, [facility] [place] [facility] [address] [id number] [place] [address] May, [facility] [place] [facility] [address] [id number] [place] [address] May, [facility] [place] [facility] [address] [id number] [place] [address] Apr, [facility] [place] [facility] [address] [id number] [place] [address] Apr, [facility] [place] [facility] [address] [id number] [place] [address] Apr, [facility] [place] [facility] [address] [id number] [place] [address] Apr, [facility] [place] [facility] [address] [id number] [place] [address] Apr, [facility] [facility] [address] [id number] [place] [address] Apr, [facility] [place] [facility] [address] [id number] [place] [address] Mar, [facility] [place] [facility] [address] [id number] [place] [address] Mar, [facility] [place] [facility] [address] [id number] [place] [address] Mar, [facility] [place] [facility] [address] [id number] [place] [address] Mar, [facility] [place] [facility] [address] [id number] [place] [address] Jan, [facility] [place] [facility] [address] [id number] [place] [address] Jan, [facility] [facility] [address] [id number] [place] [address] Jan, [facility] [place] [facility] [address] [id number] [place] [address] Dec, [facility] [place] [facility] [address] [id number] [place] [address] Dec, [facility] [place] [facility] [address] [id number] [place] [address] Dec, [facility] [facility] [address] [id number] [place] [address] Dec, [facility] [place] [facility] [address] [id number] [place] [address] Nov, [facility] [address] [id number] [place] [address] Nov, [facility] [place] [facility] [address] [id number] [place] [address] Nov, [facility] [place] [facility] [address] [id number] [place] [address] Oct, [facility] [place] [facility] [address] [id number] [place] [address] Oct, [facility] [place] [facility] [address] [id number] [place] [address] Oct, [facility] [place] [facility] [address] [id number] [place] [address] Oct, [facility] [address] [id number] [place] [address] Oct, [facility] [address] [id number] [place] [address] Oct, [facility] [place] [facility] [address] [id number] [place] [address] September, [facility] [place] [facility] [address] [id number] [place] [address] Jul, [facility] [address] [id number] [place] [address] Jul, [facility] [address] [id number] [place] [address] Jul, [facility] [facility] [address] [id number] [place] [address] Jul, [facility] [address] [id number] [place] [address] Jul, [facility] [place] [address] [id number] [place] [address] Jul, [facility] [place] [facility] [address] [id number] [place] [address] Jun, [facility] [address] [id number] [place] [address] Apr, [facility] [address] [id number] [place] [address] Apr, [facility] [place] [address] [id number] [place] [address] Jan, [facility] [address] [id number] [place] [address] Dec, [facility] [address] [id number] [place] [address] Nov, [facility] [address] [id number] [place] [address] Oct, [facility] [address] [id number] [place] [address] September, [facility] [address] [id number] [place] [address] September, [facility] [facility] [address] [id number] [place] [address] Jul, [facility] [address] [id number] [place] [address] Jul, [facility] [address] [id number] [place] [address] Jul, [facility] [place] [facility] [address] [id number] [place] [address] Jul, [facility] [place] [address] [id number] [place] [address] Jul, [facility] [address] [id number] [place] [address] 17 Jul, 2011 [facility] [address] [id number] [place] [address] 13 Jul, 2011 [facility] [address] [id number] [place] [address] Jul, [facility] [address] [id number] [place] [address]- [address] 08 Jul, 2011 [facility] [address] [facility] [id number] [place] [address] Jul, [facility] [address] [id number] [place] [address] Jun, [facility] [address] [id number] [place] [address] May, [facility] [address] [facility] [id number] [place] [address] May, [facility] [address] [facility] [id number] [place] [address] May, [facility] [address] [facility] [id number] [place] [address] Apr, [facility] [address] [facility] [id number] [place] [address] Apr, [facility] [address] [facility] [id number] [place] [address] Mar, [facility] [address] [facility] [id number] [place] [address] Mar, [facility] [address] [facility] [id number] [place] [address] Mar, [facility] [address] [facility] [id number] [place] [address] Mar, [facility] [address] [facility] [id number] [place] [address] 10 Mar, 2011 [facility] [address] [facility] [id number] [place] [address] September, [facility] [address] [facility] [id number] [place] [address] Mar, [facility] [address] [facility] [id number] [place] [address] Dec, [facility] [address] [facility] [id number] [place] [address] May, [facility] [address] [facility] [id number] [place] [address] May, IMMUNIZATIONS No Known Immunizations SOCIAL HISTORY [...]
--- OUTSIDE RECORDS SUMMARY | 2018-03-04 18:43 | XMS REPORT | Continuity of Care Document ---
Author Author [facility] Address Unknown Phone Unavailable Allergies Active Description Code Type Severity Reaction Onset Reported/Identified Relationship to Patient Clinical Status Yes NO KNOWN DRUG ALLERGIES UNKNOWN NO KNOWN DRUG ALLERG Yes No Known Drug Allergies [id number] Drug Allergy Unknown N/A 01/13/2011 Yes Glucophage [...] WITH VOMITING 12/06/2007 787.91 DIARRHEA 12/06/2007 NARINDER JAIL KEEPER, CEDRICK S 380.4 CERUMEN IMPACTION 12/06/2007 NARINDER JAIL KEEPER, CEDRICK S 477.9 RHINITIS ALLERGIC 12/06/2007 NARINDER JAIL KEEPER, CEDRICK S 787.01 NAUSEA WITH VOMITING 12/06/2007 NARINDER ARANGO, CEDRICK S 787.91 DIARRHEA 12/06/2007 CARY DO, MARBIN K 380.4 CERUMEN IMPACTION 12/06/2007 CARY DO, MARBIN K 477.9 RHINITIS ALLERGIC 12/06/2007 CARY DO, MARBIN K 787.01 NAUSEA WITH VOMITING 12/06/2007 CARY DO, MARBIN K 787.91 DIARRHEA 12/06/2007 NARINDER JAIL KEEPER, CEDRICK S 380.4 CERUMEN IMPACTION 12/06/2007 NARINDER JAIL KEEPER, CEDRICK S 477.9 RHINITIS ALLERGIC 12/06/2007 NARINDER JAIL KEEPER, CEDRICK S 787.01 NAUSEA WITH VOMITING 12/06/2007 NARINDER JAIL KEEPER, CEDRICK S 787.91 DIARRHEA 12/06/2007 NARINDER JAIL KEEPER, CEDRICK S 380.4 CERUMEN IMPACTION 12/06/2007 NARINDER JAIL KEEPER, CEDRICK S 477.9 RHINITIS ALLERGIC 12/06/2007 NARINDER JAIL KEEPER, CEDRICK S 787.01 NAUSEA WITH VOMITING 12/06/2007 NARINDER JAIL KEEPER, CEDRICK S 787.91 DIARRHEA 12/06/2007 NARINDER JAIL KEEPER, CEDRICK S 380.4 CERUMEN IMPACTION 12/06/2007 NARINDER JAIL KEEPER, CEDRICK S 477.9 RHINITIS ALLERGIC 12/06/2007 NARINDER JAIL KEEPER, CEDRICK S 787.01 NAUSEA WITH VOMITING 12/06/2007 NARINDER JAIL KEEPER, CEDRICK S 787.91 DIARRHEA 12/06/2007 NARINDER JAIL KEEPER, CEDRICK S 380.4 CERUMEN IMPACTION 12/06/2007 NARINDER JAIL KEEPER, CEDRICK S 477.9 RHINITIS ALLERGIC 12/06/2007 NARINDER JAIL KEEPER, CEDRICK S 787.01 NAUSEA WITH VOMITING 12/06/2007 NARINDER JAIL KEEPER, CEDRICK S 787.91 DIARRHEA 12/06/2007 NARINDER JAIL KEEPER, CEDRICK S 380.4 CERUMEN IMPACTION 12/06/2007 NARINDER JAIL KEEPER, CEDRICK S 477.9 RHINITIS ALLERGIC 12/06/2007 NARINDER JAIL KEEPER, CEDRICK S 787.01 NAUSEA WITH VOMITING 12/06/2007 NARINDER JAIL KEEPER, CEDRICK S 787.91 DIARRHEA 12/06/2007 NARINDER JAIL KEEPER, CEDRICK S 380.4 CERUMEN IMPACTION 12/06/2007 NARINDER JAIL KEEPER, CEDRICK S 477.9 RHINITIS ALLERGIC 12/06/2007 NARINDER JAIL KEEPER, CEDRICK S 787.01 NAUSEA WITH VOMITING 12/06/2007 NARINDER JAIL KEEPER, CEDRICK S 787.91 DIARRHEA 12/06/2007 NARINDER JAIL KEEPER, CEDRICK S 380.4 CERUMEN IMPACTION 12/06/2007 NARINDER JAIL KEEPER, CEDRICK S 477.9 RHINITIS ALLERGIC 12/06/2007 NARINDER JAIL KEEPER, CEDRICK S 787.01 NAUSEA WITH VOMITING 12/06/2007 NARINDER JAIL KEEPER, CEDRICK S 787.91 DIARRHEA 12/06/2007 NARINDER JAIL KEEPER, CEDRICK S 380.4 CERUMEN IMPACTION 12/06/2007 NARINDER JAIL KEEPER, CEDRICK S 477.9 RHINITIS ALLERGIC 12/06/2007 NARINDER JAIL KEEPER, CEDRICK S 787.01 NAUSEA WITH VOMITING 12/06/2007 NARINDER JAIL KEEPER, CEDRICK S 787.91 DIARRHEA 12/06/2007 NARINDER JAIL KEEPER, CEDRICK S 380.4 CERUMEN IMPACTION 12/06/2007 NARINDER JAIL KEEPER, CEDRICK S 477.9 RHINITIS ALLERGIC 12/06/2007 NARINDER JAIL KEEPER, CEDRICK S 787.01 NAUSEA WITH VOMITING 12/06/2007 NARINDER JAIL KEEPER, CEDRICK S 787.91 DIARRHEA 12/06/2007 NARINDER JAIL KEEPER, CEDRICK S 380.4 CERUMEN IMPACTION 12/06/2007 NARINDER JAIL KEEPER, CEDRICK S 477.9 RHINITIS ALLERGIC 12/06/2007 NARINDER JAIL KEEPER, CEDRICK S 787.01 NAUSEA WITH VOMITING 12/06/2007 NARINDER JAIL KEEPER, CEDRICK S 787.91 DIARRHEA 12/24/2007 EUGENE DDS, [...] S 250.00 DIABETES II CONTROLLED 12/24/2007 NARINDER JAIL KEEPER, CEDRICK S 724.5 BACKACHE UNSPECIFIED 12/24/2007 NARINDER JAIL KEEPER, CEDRICK S 250.00 DIABETES II CONTROLLED 12/24/2007 NARINDER JAIL KEEPER, CEDRICK S 724.5 BACKACHE UNSPECIFIED 12/24/2007 NARINDER JAIL KEEPER, CEDRICK S 250.00 DIABETES II CONTROLLED 12/24/2007 NARINDER JAIL KEEPER, CEDRICK S 724.5 BACKACHE UNSPECIFIED 12/24/2007 NARINDER JAIL KEEPER, CEDRICK S 250.00 DIABETES II CONTROLLED 12/24/2007 NARINDER JAIL KEEPER, CEDRICK S 724.5 BACKACHE UNSPECIFIED 12/24/2007 NARINDER JAIL KEEPER, CEDRICK S 250.00 DIABETES II CONTROLLED 12/24/2007 NARINDER JAIL KEEPER, CEDRICK S 724.5 BACKACHE UNSPECIFIED 12/24/2007 NARINDER JAIL KEEPER, CEDRICK S 250.00 DIABETES II CONTROLLED 12/24/2007 NARINDER JAIL KEEPER, CEDRICK S 724.5 BACKACHE UNSPECIFIED 12/24/2007 NARINDER JAIL KEEPER, CEDRICK S 250.00 DIABETES II CONTROLLED 12/24/2007 NARINDER JAIL KEEPER, CEDRICK S 724.5 BACKACHE UNSPECIFIED 12/24/2007 NARINDER JAIL KEEPER, CEDRICK S 250.00 DIABETES II CONTROLLED 12/24/2007 NARINDER JAIL KEEPER, CEDRICK S 724.5 BACKACHE UNSPECIFIED 12/24/2007 NARINDER JAIL KEEPER, CEDRICK S 250.00 DIABETES II CONTROLLED 12/24/2007 NARINDER JAIL KEEPER, CEDRICK S 724.5 BACKACHE UNSPECIFIED 12/24/2007 NARINDER JAIL KEEPER, CEDRICK S 250.00 DIABETES II CONTROLLED 12/24/2007 NARINDER JAIL KEEPER, CEDRICK S 724.5 BACKACHE UNSPECIFIED 02/21/2008 EUGENE DDS, ELI F 466.0 BRONCHITIS, ACUTE 02/21/2008 NARINDER JAIL KEEPER, CEDRICK S 466.0 BRONCHITIS, ACUTE 02/21/2008 MARBIN CARY DO 466.0 BRONCHITIS, ACUTE 02/21/2008 466.0 BRONCHITIS, ACUTE 02/21/2008 466.0 BRONCHITIS, ACUTE 02/21/2008 466.0 BRONCHITIS, ACUTE 02/21/2008 466.0 BRONCHITIS, ACUTE 02/21/2008 NARINDER JAIL KEEPER, CEDRICK S 466.0 BRONCHITIS, ACUTE 02/21/2008 CARY DO, MARBIN K 466.0 BRONCHITIS, ACUTE 02/21/2008 NARINDER JAIL KEEPER, CEDRICK S 466.0 BRONCHITIS, ACUTE 02/21/2008 NARINDER JAIL KEEPER, CEDRICK S 466.0 BRONCHITIS, ACUTE 02/21/2008 NARINDER JAIL KEEPER, CEDRICK S 466.0 BRONCHITIS, ACUTE 02/21/2008 NARINDER JAIL KEEPER, CEDRICK S 466.0 BRONCHITIS, ACUTE 02/21/2008 NARINDER JAIL KEEPER, CEDRICK S 466.0 BRONCHITIS, ACUTE 02/21/2008 NARINDER JAIL KEEPER, CEDRICK S 466.0 BRONCHITIS, ACUTE 02/21/2008 NARINDER JAIL KEEPER, CEDRICK S 466.0 BRONCHITIS, ACUTE 02/21/2008 NARINDER JAIL KEEPER, CEDRICK S 466.0 BRONCHITIS, ACUTE 02/21/2008 NARINDER JAIL KEEPER, CEDRICK S 466.0 BRONCHITIS, ACUTE 02/21/2008 NARINDER JAIL KEEPER, CEDRICK S 466.0 BRONCHITIS, ACUTE 11/07/2008 EUGENE DDS, ELI F 789.00 ABDOMINAL PAIN UNSPECIFIED SITE 11/07/2008 NARINDER JAIL KEEPER, CEDRICK S 789.00 ABDOMINAL PAIN UNSPECIFIED SITE 11/07/2008 ACRY DOARIELLEA K 789.00 ABDOMINAL PAIN UNSPECIFIED SITE 11/07/2008 789.00 ABDOMINAL PAIN UNSPECIFIED SITE 11/07/2008 789.00 ABDOMINAL PAIN UNSPECIFIED SITE 11/07/2008 789.00 ABDOMINAL PAIN UNSPECIFIED SITE 11/07/2008 789.00 ABDOMINAL PAIN UNSPECIFIED SITE 11/07/2008 NARINDER JAIL KEEPER, CEDRICK S 789.00 ABDOMINAL PAIN UNSPECIFIED SITE 11/07/2008 CARY DO, MARBIN K 789.00 ABDOMINAL PAIN UNSPECIFIED SITE 11/07/2008 NARINDER JAIL KEEPER, CEDRICK S 789.00 ABDOMINAL PAIN UNSPECIFIED SITE 11/07/2008 NARINDER JAIL KEEPER, CEDRICK S 789.00 ABDOMINAL PAIN UNSPECIFIED SITE 11/07/2008 NARINDER JAIL KEEPER, CEDRICK S 789.00 ABDOMINAL PAIN UNSPECIFIED SITE 11/07/2008 NARINDER JAIL KEEPER, CEDRICK S 789.00 ABDOMINAL PAIN UNSPECIFIED SITE 11/07/2008 NARINDER JAIL KEEPER, CEDRICK S 789.00 ABDOMINAL PAIN UNSPECIFIED SITE 11/07/2008 NARINDER JAIL KEEPER, CEDRICK S 789.00 ABDOMINAL PAIN UNSPECIFIED SITE 11/07/2008 NARINDER JAIL KEEPER, CEDRICK S 789.00 ABDOMINAL PAIN UNSPECIFIED SITE 11/07/2008 NARINDER JAIL KEEPER, CEDRICK S 789.00 ABDOMINAL PAIN UNSPECIFIED SITE 11/07/2008 NARINDER JAIL KEEPER, CEDRICK S 789.00 ABDOMINAL PAIN UNSPECIFIED SITE 11/07/2008 NARINDER JAIL KEEPER, CEDRICK S 789.00 ABDOMINAL PAIN UNSPECIFIED SITE 05/08/2009 EUGENE DDS, ELI F 493.90 ASTHMA, UNSPECIFIED, UNSPECIFIED 05/08/2009 NARINDER JAIL KEEPER, CEDRICK S 493.90 ASTHMA, UNSPECIFIED, UNSPECIFIED 05/08/2009 MARBIN CARY DO 493.90 ASTHMA, UNSPECIFIED, UNSPECIFIED 05/08/2009 493.90 ASTHMA, UNSPECIFIED, UNSPECIFIED 05/08/2009 493.90 ASTHMA, UNSPECIFIED, UNSPECIFIED 05/08/2009 493.90 ASTHMA, UNSPECIFIED, UNSPECIFIED 05/08/2009 493.90 ASTHMA, UNSPECIFIED, UNSPECIFIED 05/08/2009 NARINDER JAIL KEEPER, CEDRICK S 493.90 ASTHMA, UNSPECIFIED, UNSPECIFIED 05/08/2009 MARBIN CARY DO K 493.90 ASTHMA, UNSPECIFIED, UNSPECIFIED 05/08/2009 NARINDER JAIL KEEPER, CEDRICK S 493.90 ASTHMA, UNSPECIFIED, UNSPECIFIED 05/08/2009 NARINDER JAIL KEEPER, CEDRICK S 493.90 ASTHMA, UNSPECIFIED, UNSPECIFIED 05/08/2009 NARINDER JAIL KEEPER, CEDRICK S 493.90 ASTHMA, UNSPECIFIED, UNSPECIFIED 05/08/2009 NARINDER JAIL KEEPER, CEDRICK S 493.90 ASTHMA, UNSPECIFIED, UNSPECIFIED 05/08/2009 NARINDER JAIL KEEPER, CEDRICK S 493.90 ASTHMA, UNSPECIFIED, UNSPECIFIED 05/08/2009 NARINDER JAIL KEEPER, CEDRICK S 493.90 ASTHMA, UNSPECIFIED, UNSPECIFIED 05/08/2009 NARINDER JAIL KEEPER, CEDRICK S 493.90 ASTHMA, UNSPECIFIED, UNSPECIFIED 05/08/2009 NARINDER JAIL KEEPER, CEDRICK S 493.90 ASTHMA, UNSPECIFIED, UNSPECIFIED 05/08/2009 NARINDER JAIL KEEPER, CEDRICK S 493.90 ASTHMA, UNSPECIFIED, UNSPECIFIED 05/08/2009 NARINDER JAIL KEEPER, CEDRICK S 493.90 ASTHMA, UNSPECIFIED, UNSPECIFIED 09/27/2009 EUGENE DDS, EIL F 729.5 PAIN IN LIMB 09/27/2009 NARINDER JAIL KEEPER, CEDRICK S 729.5 PAIN IN LIMB 09/27/2009 CARY DO, MARBIN K 729.5 PAIN IN LIMB 09/27/2009 729.5 PAIN IN LIMB 09/27/2009 729.5 PAIN IN LIMB 09/27/2009 729.5 PAIN IN LIMB 09/27/2009 729.5 PAIN IN LIMB 09/27/2009 NARINDER JAIL KEEPER, CEDRICK S 729.5 PAIN IN LIMB 09/27/2009 CARY DO, MARBIN K 729.5 PAIN IN LIMB 09/27/2009 NARINDER JAIL KEEPER, CEDRICK S 729.5 PAIN IN LIMB 09/27/2009 NARINDER JAIL KEEPER, CEDRICK S 729.5 PAIN IN LIMB 09/27/2009 NARINDER JAIL KEEPER, CEDRICK S 729.5 PAIN IN LIMB 09/27/2009 NARINDER JAIL KEEPER, CEDRICK S 729.5 PAIN IN LIMB 09/27/2009 NARINDER JAIL KEEPER, CEDRICK S 729.5 PAIN IN LIMB 09/27/2009 NARINDER JAIL KEEPER, CEDRICK S 729.5 PAIN IN LIMB 09/27/2009 NARINDER JAIL KEEPER, CEDRICK S 729.5 PAIN IN LIMB 09/27/2009 NARINDER JAIL KEEPER, CEDRICK S 729.5 PAIN IN LIMB 09/27/2009 NARINDER JAIL KEEPER, CEDRICK S 729.5 PAIN IN LIMB 09/27/2009 NARINDER JAIL KEEPER, CEDRICK S 729.5 PAIN IN LIMB 12/05/2009 EUGENE DDS, ELI F 786.2 COUGH 12/05/2009 EUGENE DDS, ELI F V15.85 PERSONAL HISTORY OF CONTACT WITH AND (SUSPECTED) EXPOSURE TO POTENTIALLY HAZARDOUS BODY FLUIDS 12/05/2009 NARINDER JAIL KEEPER, CEDRICK S 786.2 COUGH 12/05/2009 MIRIAN BARCENAS [...] BARCENAS APRNNDA S 786.2 COUGH 12/05/2009 NARINDER JAIL KEEPERMIRIAN BeNDA S V15.85 PERSONAL HISTORY OF CONTACT WITH AND (SUSPECTED) EXPOSURE TO POTENTIALLY HAZARDOUS BODY FLUIDS 12/05/2009 NARINDER JAIL KEEPER CEDRICK S 786.2 COUGH 12/05/2009 NARINDER JAIL KEEPERMIRIAN BeNDA S V15.85 PERSONAL HISTORY OF CONTACT WITH AND (SUSPECTED) EXPOSURE TO POTENTIALLY HAZARDOUS BODY FLUIDS 12/05/2009 NARINDER JAIL KEEPER CEDRICK S 786.2 COUGH 12/05/2009 NARINDER JAIL KEEPER CEDRICK S V15.85 PERSONAL HISTORY OF CONTACT WITH AND (SUSPECTED) EXPOSURE TO POTENTIALLY HAZARDOUS BODY FLUIDS 12/05/2009 NARINDER JAIL KEEPER, CEDRICK S 786.2 COUGH 12/05/2009 NARINDER JAIL KEEPER, CEDRICK S V15.85 PERSONAL HISTORY OF CONTACT WITH AND (SUSPECTED) EXPOSURE TO POTENTIALLY HAZARDOUS BODY FLUIDS 12/05/2009 NARINDER JAIL KEEPER, CEDRICK S 786.2 COUGH 12/05/2009 NARINDER JAIL KEEPER, CEDRICK S V15.85 PERSONAL HISTORY OF CONTACT WITH AND (SUSPECTED) EXPOSURE TO POTENTIALLY HAZARDOUS BODY FLUIDS 12/05/2009 NARINDER JAIL KEEPER, CEDRICK S 786.2 COUGH 12/05/2009 NARINDER JAIL KEEPER, CEDRICK S V15.85 PERSONAL HISTORY OF CONTACT WITH AND (SUSPECTED) EXPOSURE TO POTENTIALLY HAZARDOUS BODY FLUIDS 12/05/2009 NARINDER JAIL KEEPER, CEDRICK S 786.2 COUGH 12/05/2009 NARINDER JAIL KEEPER, CEDRICK S V15.85 PERSONAL HISTORY OF CONTACT WITH AND (SUSPECTED) EXPOSURE TO POTENTIALLY HAZARDOUS BODY FLUIDS 12/05/2009 NARINDER JAIL KEEPER, CEDRICK S 786.2 COUGH 12/05/2009 NARINDER JAIL KEEPER, CEDRICK S V15.85 PERSONAL HISTORY OF CONTACT WITH AND (SUSPECTED) EXPOSURE TO POTENTIALLY HAZARDOUS BODY FLUIDS 12/05/2009 NARINDER JAIL KEEPER, CEDRICK S 786.2 COUGH 12/05/2009 NARINDER JAIL KEEPER, CEDRICK S V15.85 PERSONAL HISTORY OF CONTACT WITH AND (SUSPECTED) EXPOSURE TO POTENTIALLY HAZARDOUS BODY FLUIDS 12/05/2009 NARINDER JAIL KEEPER, CEDRICK S 786.2 COUGH 12/05/2009 NARINDER JAIL KEEPER, CEDRICK S V15.85 PERSONAL HISTORY OF [...] THE TEETH AND SUPPORTING STRUCTURES 01/18/2010 NARINDER JAIL KEEPER, CEDRICK S 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 01/18/2010 MABRIN CARY DO 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 01/18/2010 NARINDER JAIL KEEPER, CEDRICK S 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 01/18/2010 NARINDER JAIL KEEPER, CEDRICK S 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 01/18/2010 NARINDER JAIL KEEPER, CEDRICK S 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 01/18/2010 NARINDER JAIL KEEPER, CEDRICK S 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 01/18/2010 NARINDER JAIL KEEPER, CEDRICK S 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 01/18/2010 NARINDER JAIL KEEPER, CEDRICK S 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 01/18/2010 NARINDER JAIL KEEPER CEDRICK S 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 01/18/2010 NARINDER JAIL KEEPER, CEDRICK S 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 01/18/2010 NARINDER JAIL KEEPER, CEDRICK S 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 01/18/2010 NARINDER JAIL KEEPER, CEDRICK S 525.9 UNSPECIFIED DISORDER OF [...] 09/04/2010 311 MO DEPRESS NOS 09/04/2010 NARINDER JAIL KEEPER, CEDRICK S 300.00 AN ANXIETY UNSPEC 09/04/2010 NARINDER JAIL KEEPER, CEDRICK S 311 MO DEPRESS NOS 09/04/2010 CARY DO, MARBIN K 300.00 AN ANXIETY UNSPEC 09/04/2010 CARY DO, MARBIN K 311 MO DEPRESS NOS 09/04/2010 NARINDER JAIL KEEPER, CEDRICK S 300.00 AN ANXIETY UNSPEC 09/04/2010 NARINDER JAIL KEEPER, CEDRICK S 311 MO DEPRESS NOS 09/04/2010 NARINDER JAIL KEEPER, CEDRICK S 300.00 AN ANXIETY UNSPEC 09/04/2010 NARINDER JAIL KEEPER, CEDRICK S 311 MO DEPRESS NOS 09/04/2010 NARINDER JAIL KEEPER, CEDRICK S 300.00 AN ANXIETY UNSPEC 09/04/2010 NARINDER JAIL KEEPER, CEDRICK S 311 MO DEPRESS NOS 09/04/2010 NARINDER JAIL KEEPER, CEDRICK S 300.00 AN ANXIETY UNSPEC 09/04/2010 NARINDER JAIL KEEPER, CEDRICK S 311 MO DEPRESS NOS 09/04/2010 NARINDER JAIL KEEPER, CEDRICK S 300.00 AN ANXIETY UNSPEC 09/04/2010 NARINDER JAIL KEEPER, CEDRICK S 311 MO DEPRESS NOS 09/04/2010 NARINDER JAIL KEEPER, CEDRICK S 300.00 AN ANXIETY UNSPEC 09/04/2010 NARINDER JAIL KEEPER, CEDRICK S 311 MO DEPRESS NOS 09/04/2010 NARINDER JAIL KEEPER, CEDRICK S 300.00 AN ANXIETY UNSPEC 09/04/2010 NARINDER JAIL KEEPER, CEDRICK S 311 MO DEPRESS NOS 09/04/2010 NARINDER JAIL KEEPER, CEDRICK S 300.00 AN ANXIETY UNSPEC 09/04/2010 NARINDER JAIL KEEPER, CEDRICK S 311 MO DEPRESS NOS 09/04/2010 NARINDER JAIL KEEPER, CEDRICK S 300.00 AN ANXIETY UNSPEC 09/04/2010 NARINDER JAIL KEEPER, CEDRICK S 311 MO DEPRESS NOS 09/04/2010 NARINDER JAIL KEEPER, CEDRICK S 300.00 AN ANXIETY UNSPEC 09/04/2010 NARINDER JAIL KEEPER, CEDRICK S 311 MO DEPRESS NOS 01/15/2011 Ot 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 01/15/2011 Ot 401.9 HYPERTENSION NOS 01/15/2011 Ot 618.2 UTEROVAG PROLAPS-INCOMPL 01/15/2011 Ot 620.1 CORPUS LUTEUM CYST 01/15/2011 Ot 625.3 DYSMENORRHEA 01/15/2011 Ot 625.6 FEM STRESS INCONTINENCE 01/15/2011 Ot 626.2 EXCESSIVE MENSTRUATION 05/05/2011 EUGENE DDS, ELI F 461.9 SINUSITIS ACUTE 05/05/2011 NARINDER JAIL KEEPER, CEDRICK S 461.9 SINUSITIS ACUTE 05/05/2011 ARIELLE CARY DOA K 461.9 SINUSITIS ACUTE 05/05/2011 461.9 SINUSITIS ACUTE 05/05/2011 461.9 SINUSITIS ACUTE 05/05/2011 461.9 SINUSITIS ACUTE 05/05/2011 461.9 SINUSITIS ACUTE 05/05/2011 NARINDER JAIL KEEPER, CEDRICK S 461.9 SINUSITIS ACUTE 05/05/2011 CARY DOARIELLEA K 461.9 SINUSITIS ACUTE 05/05/2011 NARINDER JAIL KEEPER, CEDRICK S 461.9 SINUSITIS ACUTE 05/05/2011 NARINDER JAIL KEEPER, CEDRICK S 461.9 SINUSITIS ACUTE 05/05/2011 NARINDER JAIL KEEPER, CEDRICK S 461.9 SINUSITIS ACUTE 05/05/2011 NARINDER JAIL KEEPER, CEDRICK S 461.9 SINUSITIS ACUTE 05/05/2011 NARINDER JAIL KEEPER, CEDRICK S 461.9 SINUSITIS ACUTE 05/05/2011 NARINDER JAIL KEEPER, CEDRICK S 461.9 SINUSITIS ACUTE 05/05/2011 NARINDER JAIL KEEPER, CEDRICK S 461.9 SINUSITIS ACUTE 05/05/2011 NARINDER JAIL KEEPER, CEDRICK S 461.9 SINUSITIS ACUTE 05/05/2011 NARINDER JAIL KEEPER, CEDRICK S 461.9 SINUSITIS ACUTE 05/05/2011 NARINDER JAIL KEEPER, CEDRICK S 461.9 SINUSITIS ACUTE 07/08/2011 EUGENE DDS, ELI F 719.47 PAIN IN JOINT INVOLVING ANKLE AND FOOT 07/08/2011 NARINDER JAIL KEEPER, CEDRICK S 719.47 PAIN IN JOINT INVOLVING [...] 07/14/2011 790.29 OTHER ABNORMAL GLUCOSE 07/14/2011 NARINDER JAIL KEEPER, CEDRICK S 790.29 OTHER ABNORMAL GLUCOSE 07/14/2011 ARIELLE ACRY DOA K 790.29 OTHER ABNORMAL GLUCOSE 07/14/2011 NARINDER JAIL KEEPER, CEDRICK S 790.29 OTHER ABNORMAL GLUCOSE 07/14/2011 NARINDER JAIL KEEPER, CEDRICK S 790.29 OTHER ABNORMAL GLUCOSE 07/14/2011 NARINDER JAIL KEEPER, CEDRICK S 790.29 OTHER ABNORMAL GLUCOSE 07/14/2011 NARINDER JAIL KEEPER, CEDRICK S 790.29 OTHER ABNORMAL GLUCOSE 07/14/2011 NARINDER JAIL KEEPER, CEDRICK S 790.29 OTHER ABNORMAL GLUCOSE 07/14/2011 NARINDER JAIL KEEPER, CEDRICK S 790.29 OTHER ABNORMAL GLUCOSE 07/14/2011 NARINDER JAIL KEEPER, CEDRICK S 790.29 OTHER ABNORMAL GLUCOSE 07/14/2011 NARINDER JAIL KEEPER, CEDRICK S 790.29 OTHER ABNORMAL GLUCOSE 07/14/2011 ANRINDER JAIL KEEPER, CEDRICK S 790.29 OTHER ABNORMAL GLUCOSE 07/14/2011 NARINDER JAIL KEEPER, CEDRICK S 790.29 OTHER ABNORMAL GLUCOSE [...] DOA K 307.81 TENSION HEADACHE 02/23/2012 NARINDER JAIL KEEPER, CEDRICK S 307.81 TENSION HEADACHE 02/23/2012 NARINDER [place], CEDRICK S 307.81 TENSION HEADACHE 02/23/2012 NARINDER JAIL KEEPER, CEDRICK S 307.81 TENSION HEADACHE 02/23/2012 NARINDER ARANGO, CEDRICK S 307.81 TENSION HEADACHE 02/23/2012 NARINDER ARANGO, CEDRICK S 307.81 TENSION HEADACHE 02/23/2012 NARINDER ARANGO, CEDRICK S 307.81 TENSION HEADACHE 02/23/2012 NARINDER ARANGO, CEDRICK S 307.81 TENSION HEADACHE 02/23/2012 NARINDER JAIL KEEPER, CEDRICK S 307.81 TENSION HEADACHE 02/23/2012 NARINDER JAIL KEEPER, CEDRICK S 307.81 TENSION HEADACHE 02/23/2012 [...] 535.00 ACUTE GASTRITIS (WITHOUT HEMORRHAGE) 06/22/2012 NARINDER JAIL KEEPER, CEDRICK S V18.0 FAMILY HISTORY OF DIABETES MELLITUS 06/22/2012 NARINDER JAIL KEEPER, CEDRICK S 535.00 ACUTE GASTRITIS (WITHOUT HEMORRHAGE) 06/22/2012 NARINDER JAIL KEEPER, CEDRICK S V18.0 FAMILY HISTORY OF DIABETES MELLITUS 06/22/2012 NARINDER JAIL KEEPER, CEDRICK S 535.00 ACUTE GASTRITIS (WITHOUT HEMORRHAGE) 06/22/2012 NARINDER JAIL KEEPER, CEDRICK S V18.0 FAMILY HISTORY OF DIABETES MELLITUS 06/22/2012 NARINDER JAIL KEEPER, CEDRICK S 535.00 ACUTE GASTRITIS (WITHOUT HEMORRHAGE) 06/22/2012 NARINDER JAIL KEEPER, CEDRICK S V18.0 FAMILY HISTORY OF DIABETES MELLITUS 06/22/2012 NARINDER JAIL KEEPER, CEDRICK S 535.00 ACUTE GASTRITIS (WITHOUT HEMORRHAGE) 06/22/2012 NARINDER JAIL KEEPER, CEDRICK S V18.0 FAMILY HISTORY OF DIABETES MELLITUS 06/22/2012 NARINDER JAIL KEEPER, CEDRICK S 535.00 ACUTE GASTRITIS (WITHOUT HEMORRHAGE) 06/22/2012 NARINDER JAIL KEEPER, CEDRICK S V18.0 FAMILY HISTORY OF DIABETES MELLITUS 06/22/2012 NARINDER JAIL KEEPER, CEDRICK S 535.00 ACUTE GASTRITIS (WITHOUT HEMORRHAGE) 06/22/2012 NARINDER JAIL KEEPER, CEDRICK S V18.0 FAMILY HISTORY OF DIABETES MELLITUS 06/22/2012 NARINDER JAIL KEEPER, CEDRICK S 535.00 ACUTE GASTRITIS (WITHOUT HEMORRHAGE) 06/22/2012 NARINDER JAIL KEEPER, CEDRICK S V18.0 FAMILY HISTORY OF DIABETES MELLITUS 06/22/2012 NARINDER JAIL KEEPER, CEDRICK S 535.00 ACUTE GASTRITIS (WITHOUT HEMORRHAGE) 06/22/2012 NARINDER JAIL KEEPER, CEDRICK S V18.0 FAMILY HISTORY OF DIABETES MELLITUS 08/19/2012 CARY DOMARBIN K 785.1 PALPITATIONS 08/19/2012 CARY DO, MARBIN K 786.50 CHEST PAIN 08/19/2012 785.1 PALPITATIONS 08/19/2012 786.50 CHEST PAIN 08/19/2012 785.1 PALPITATIONS 08/19/2012 786.50 CHEST PAIN 08/19/2012 785.1 PALPITATIONS 08/19/2012 786.50 CHEST PAIN 08/19/2012 785.1 PALPITATIONS 08/19/2012 786.50 CHEST PAIN 08/19/2012 NARINDER JAIL KEEPER, CEDRICK S 785.1 PALPITATIONS 08/19/2012 NARINDER JAIL KEEPER, CEDRICK S 786.50 CHEST PAIN 08/19/2012 CARY DO, MARBIN K 785.1 PALPITATIONS 08/19/2012 CARY DO, MARBIN K 786.50 CHEST PAIN 08/19/2012 NARINDER JAIL KEEPER, CEDRICK S 785.1 PALPITATIONS 08/19/2012 NARINDER JAIL KEEPER, CEDRICK S 786.50 CHEST PAIN 08/19/2012 NARINDER JAIL KEEPER, CEDRICK S 785.1 PALPITATIONS 08/19/2012 NARINDER JAIL KEEPER, CEDRICK S 786.50 CHEST PAIN 08/19/2012 NARINDER JAIL KEEPER, CEDRICK S 785.1 PALPITATIONS 08/19/2012 NARINDER JAIL KEEPER, CEDRICK S 786.50 CHEST PAIN 08/19/2012 NARINDER JAIL KEEPER, CEDRICK S 785.1 PALPITATIONS 08/19/2012 NARINDER JAIL KEEPER, CEDRICK S 786.50 CHEST PAIN 08/19/2012 NARINEDR JAIL KEEPER, CEDRICK S 785.1 PALPITATIONS 08/19/2012 NARINDER JAIL KEEPER, CEDRICK S 786.50 CHEST PAIN 08/19/2012 NARINDER JAIL KEEPER, CEDRICK S 785.1 PALPITATIONS 08/19/2012 NARINDER JAIL KEEPER, CEDRICK S 786.50 CHEST PAIN 08/19/2012 NARINDER JAIL KEEPER, CEDRICK S 785.1 PALPITATIONS 08/19/2012 NARINDER JAIL KEEPER, CEDRICK S 786.50 CHEST PAIN 08/19/2012 NARINDER JAIL KEEPER, CEDRICK S 785.1 PALPITATIONS 08/19/2012 NARINDER JAIL KEEPER, CEDRICK S 786.50 CHEST PAIN 08/19/2012 NARINDER JAIL KEEPER, CEDRICK S 785.1 PALPITATIONS 08/19/2012 NARINDER JAIL KEEPER, CEDRICK S 786.50 CHEST PAIN 08/19/2012 NARINDER JAIL KEEPER, CEDRICK S 785.1 PALPITATIONS 08/19/2012 NARINDER JAIL KEEPER, CEDRICK S 786.50 CHEST PAIN 10/21/2012 244.9 HYPOTHYROIDISM 10/21/2012 244.9 HYPOTHYROIDISM 10/21/2012 244.9 HYPOTHYROIDISM 10/21/2012 244.9 HYPOTHYROIDISM 10/21/2012 NARINDER JAIL KEEPER, CEDRICK S 244.9 HYPOTHYROIDISM 10/21/2012 MARBIN CARY DO K 244.9 HYPOTHYROIDISM 10/21/2012 NARINDER JAIL KEEPER, CEDRICK S 244.9 HYPOTHYROIDISM 10/21/2012 NARINDER JAIL KEEPER, CEDRICK S 244.9 HYPOTHYROIDISM 10/21/2012 NARINDER JAIL KEEPER, CEDRICK S 244.9 HYPOTHYROIDISM 10/21/2012 NARINDER JAIL KEEPER, CEDRICK S 244.9 HYPOTHYROIDISM 10/21/2012 NARINDER JAIL KEEPER, CEDRICK S 244.9 HYPOTHYROIDISM 10/21/2012 NARINDER JAIL KEEPER, CEDRICK S 244.9 HYPOTHYROIDISM 10/21/2012 NARINDER JAIL KEEPER, CEDRICK S 244.9 HYPOTHYROIDISM 10/21/2012 NARINDER JAIL KEEPER, CEDRICK S 244.9 HYPOTHYROIDISM 10/21/2012 NARINDER JAIL KEEPER, CEDRICK S 244.9 HYPOTHYROIDISM 10/21/2012 NARINDER JAIL KEEPER, CEDRICK S 244.9 HYPOTHYROIDISM 11/09/2012 JARRET [...] CARDIOVASCULAR D 11/09/2012 JARRET VERMA FAC, MELONIE SOLITARIO CCDS Ot V58.69 OTH MED,LT,CURRENT USE 11/12/2012 427.89 BRADYCARDIA 11/12/2012 427.89 BRADYCARDIA 11/12/2012 427.89 BRADYCARDIA 11/12/2012 NARINDER JAIL KEEPER, CEDRICK S 427.89 BRADYCARDIA 11/12/2012 CARY MARBIN FLORES K 427.89 BRADYCARDIA 11/12/2012 NARINDER JAIL KEEPER, CEDRICK S 427.89 BRADYCARDIA 11/12/2012 NARINDER JAIL KEEPER, CEDRICK S 427.89 BRADYCARDIA 11/12/2012 NARINDER JAIL KEEPER, CEDRICK S 427.89 BRADYCARDIA 11/12/2012 NARINDER JAIL KEEPER, CEDRICK S 427.89 BRADYCARDIA 11/12/2012 NARINDER JAIL KEEPER, CEDRICK S 427.89 BRADYCARDIA 11/12/2012 NARINDER JAIL KEEPER, CEDRICK S 427.89 BRADYCARDIA 11/12/2012 NARINDER JAIL KEEPER, CEDRICK S 427.89 BRADYCARDIA 11/12/2012 NARINDER JAIL KEEPER, CEDRICK S 427.89 BRADYCARDIA 11/12/2012 NARINDER JAIL KEEPER, CEDRICK S 427.89 BRADYCARDIA 11/12/2012 NARINDER JAIL KEEPER, CEDRICK S 427.89 BRADYCARDIA 11/30/2012 799.02 HYPOXEMIA 11/30/2012 799.02 HYPOXEMIA 11/30/2012 NARINDER JAIL KEEPER, CEDRICK S 799.02 HYPOXEMIA 11/30/2012 CARY MARBIN FLORES K 799.02 HYPOXEMIA 11/30/2012 NARINDER JAIL KEEPER, CEDRICK S 799.02 HYPOXEMIA 11/30/2012 NARINDER JAIL KEEPER, CEDRICK S 799.02 HYPOXEMIA 11/30/2012 NARINDER JAIL KEEPER, CEDRICK S 799.02 HYPOXEMIA 11/30/2012 NARINDER JAIL KEEPER, CEDRICK S 799.02 HYPOXEMIA 11/30/2012 NARINDER JAIL KEEPER, CEDRICK S 799.02 HYPOXEMIA 11/30/2012 NARINDER JAIL KEEPER, CEDRICK S 799.02 HYPOXEMIA 11/30/2012 NARINDER JAIL KEEPER, CEDRICK S 799.02 HYPOXEMIA 11/30/2012 NARINDER JAIL KEEPER, CEDRICK S 799.02 HYPOXEMIA 11/30/2012 YURY BARCENAS APRNA S 799.02 HYPOXEMIA 11/30/2012 YURY BARCENAS APRNA S 799.02 HYPOXEMIA 01/06/2013 CEDRICK BARCENAS [employer] DELIVERY CONSULTANT Ot 780.54 HYPERSOMNIA, UNSPECIFIED 01/06/2013 CEDRICK BARCENAS [employer] DELIVERY CONSULTANT Ot 786.09 RESPIRATORY ABNORM NEC 02/14/2013 CEDRICK BARCENAS [employer]UT[employer] DELIVERY CONSULTANT Ot 346.90 MIGRAINE UNSPECIFIED W/O INTRACT MGRN W/ 02/14/2013 CEDRICK BARCENAS [employer] DELIVERY CONSULTANT Ot 427.89 CARDIAC DYSRHYTHMIAS NEC 02/17/2013 YURY BARCENASA [employer] DELIVERY CONSULTANT Ot 346.90 MIGRAINE UNSPECIFIED W/O INTRACT MGRN W/ 02/17/2013 CEDRICK BARCENAS [employer] DELIVERY CONSULTANT Ot 427.89 CARDIAC DYSRHYTHMIAS NEC 04/21/2013 MARBIN CARY DO K 917.6 SUPERFICIAL FOREIGN BODY (SPLINTER) OF FOOT AND TOE(S) WITHOUT MAJOR OPEN WOUND AND WITHOUT INFECTION 04/21/2013 NARINDER JAIL KEEPERMIRIAN BeNDA S 917.6 SUPERFICIAL FOREIGN BODY (SPLINTER) OF FOOT AND TOE(S) WITHOUT MAJOR OPEN WOUND AND WITHOUT INFECTION 04/21/2013 NARINDER JAIL KEEPERMIRIANCEDRICK S 917.6 SUPERFICIAL FOREIGN BODY (SPLINTER) OF FOOT AND TOE(S) WITHOUT MAJOR OPEN WOUND AND WITHOUT INFECTION 04/21/2013 NARINDER JAIL KEEPER, CEDRICK S 917.6 SUPERFICIAL FOREIGN BODY (SPLINTER) OF FOOT AND TOE(S) WITHOUT MAJOR OPEN WOUND AND WITHOUT INFECTION 04/21/2013 NARINDER JAIL KEEPER, CEDRICK S 917.6 SUPERFICIAL FOREIGN BODY (SPLINTER) OF FOOT AND TOE(S) WITHOUT MAJOR OPEN WOUND AND WITHOUT INFECTION 04/21/2013 NARINDER JAIL KEEPER, CEDRICK S 917.6 SUPERFICIAL FOREIGN BODY (SPLINTER) OF FOOT AND TOE(S) WITHOUT MAJOR OPEN WOUND AND WITHOUT INFECTION 04/21/2013 NARINDER JAIL KEEPER, CEDRICK S 917.6 SUPERFICIAL FOREIGN BODY (SPLINTER) OF FOOT AND TOE(S) WITHOUT MAJOR OPEN WOUND AND WITHOUT INFECTION 04/21/2013 NARINDER JAIL KEEPER, CEDRICK S 917.6 SUPERFICIAL FOREIGN BODY (SPLINTER) OF FOOT AND TOE(S) WITHOUT MAJOR OPEN WOUND AND WITHOUT INFECTION 04/21/2013 NARINDER JAIL KEEPER, CEDRICK S 917.6 SUPERFICIAL FOREIGN BODY (SPLINTER) OF FOOT AND TOE(S) WITHOUT MAJOR OPEN WOUND AND WITHOUT INFECTION 04/21/2013 NARINDER JAIL KEEPER, CEDRICK S 917.6 SUPERFICIAL FOREIGN BODY (SPLINTER) OF FOOT AND TOE(S) WITHOUT MAJOR OPEN WOUND AND WITHOUT INFECTION 04/21/2013 NARINDER JAIL KEEPER, CEDRICK S 917.6 SUPERFICIAL FOREIGN BODY (SPLINTER) OF FOOT AND TOE(S) WITHOUT MAJOR OPEN WOUND AND WITHOUT INFECTION 08/11/2013 NARINDER JAIL KEEPER, CEDRICK S 796.2 ELEVATED BLOOD PRESSURE READING WITHOUT DIAGNOSIS OF HYPERTENSION 08/11/2013 NARINDER JAIL KEEPER, CEDRICK S 796.2 ELEVATED BLOOD PRESSURE READING WITHOUT DIAGNOSIS OF HYPERTENSION 08/11/2013 NARINDER JAIL KEEPER, CEDRICK S 796.2 ELEVATED BLOOD PRESSURE READING WITHOUT DIAGNOSIS OF HYPERTENSION 08/11/2013 NARINDER JAIL KEEPER, CEDRICK S 796.2 ELEVATED BLOOD PRESSURE READING WITHOUT DIAGNOSIS OF HYPERTENSION 08/11/2013 NARINDER JAIL KEEPER, CEDRICK S 796.2 ELEVATED BLOOD PRESSURE READING WITHOUT DIAGNOSIS OF HYPERTENSION 08/11/2013 NARINDER JAIL KEEPER, CEDRICK S 796.2 ELEVATED BLOOD PRESSURE READING WITHOUT DIAGNOSIS OF HYPERTENSION 08/11/2013 NARINDER JAIL KEEPER, CEDRICK S 796.2 ELEVATED BLOOD PRESSURE READING WITHOUT DIAGNOSIS OF HYPERTENSION 08/11/2013 NARINDER JAIL KEEPER, CEDRICK S 796.2 ELEVATED BLOOD PRESSURE READING WITHOUT DIAGNOSIS OF HYPERTENSION 08/11/2013 NARINDER JAIL KEEPER, CEDRICK S 796.2 ELEVATED BLOOD PRESSURE READING WITHOUT DIAGNOSIS OF HYPERTENSION 08/11/2013 NARINDER JAIL KEEPER, CEDRICK S 796.2 ELEVATED BLOOD PRESSURE READING WITHOUT DIAGNOSIS OF HYPERTENSION 08/16/2013 NARINDER JAIL KEEPER, CEDRICK S 288.60 LEUKOCYTOSIS UNSPECIFIED 08/16/2013 NARINDER JAIL KEEPER, CEDRICK S 462 ACUTE PHARYNGITIS 08/16/2013 NARINDER JAIL KEEPER, CEDRICK S 288.60 LEUKOCYTOSIS UNSPECIFIED 08/16/2013 NARINDER JAIL KEEPER, CEDRICK S 462 ACUTE PHARYNGITIS 08/16/2013 NARINDER JAIL KEEPER, CEDRICK S 288.60 LEUKOCYTOSIS UNSPECIFIED 08/16/2013 NARINDER JAIL KEEPER, CEDRICK S 462 ACUTE PHARYNGITIS 08/16/2013 NARINDER JAIL KEEPER, CEDRICK S 288.60 LEUKOCYTOSIS UNSPECIFIED 08/16/2013 NARINDER JAIL KEEPER, CEDRICK S 462 ACUTE PHARYNGITIS 08/16/2013 NARINDER JAIL KEEPER, CEDRICK S 288.60 LEUKOCYTOSIS UNSPECIFIED 08/16/2013 NARINDER JAIL KEEPER, CEDRICK S 462 ACUTE PHARYNGITIS 08/16/2013 NARINDER JAIL KEEPER, CEDRICK S 288.60 LEUKOCYTOSIS UNSPECIFIED 08/16/2013 NARINDER JAIL KEEPER, CEDRICK S 462 ACUTE PHARYNGITIS 08/16/2013 NARINDER JAIL KEEPER, CEDRICK S 288.60 LEUKOCYTOSIS UNSPECIFIED 08/16/2013 NARINDER JAIL KEEPER, CEDRICK S 462 ACUTE PHARYNGITIS 08/16/2013 NARINDER JAIL KEEPER, CEDRICK S 288.60 LEUKOCYTOSIS UNSPECIFIED 08/16/2013 NARINDER JAIL KEEPER, CEDRICK S 462 ACUTE PHARYNGITIS 08/16/2013 NARINDER JAIL KEEPER, CEDRICK S 288.60 LEUKOCYTOSIS UNSPECIFIED 08/16/2013 NARINDER JAIL KEEPER, CEDRICK S 462 ACUTE PHARYNGITIS 08/18/2013 CEDRICK BARCENAS [facility] Ot 722.93 DISC DIS NEC/NOS-LUMBAR 08/18/2013 CEDRICK BARCENAS [facility] Ot V57.1 PHYSICAL THERAPY NEC 11/10/2013 [...] 729.1 MYALGIA AND MYOSITIS UNSPECIFIED 01/17/2014 NARINDER JAIL KEEPER, CEDRICK S 486 PNEUMONIA UNSPECIFIED 01/17/2014 NARINDER JAIL KEEPER, CEDRICK S 780.8 HOT FLASHES 01/17/2014 NARINDER JAIL KEEPER, CEDRICK S 486 PNEUMONIA UNSPECIFIED 01/17/2014 NARINDER JAIL KEEPER, CEDRICK S 780.8 HOT FLASHES 01/17/2014 NARINDER JAIL KEEPER, CEDRICK S 486 PNEUMONIA UNSPECIFIED 01/17/2014 NARINDER JAIL KEEPER, CEDRICK S 780.8 HOT FLASHES 01/17/2014 NARINDER JAIL KEEPER, CEDRICK S 486 PNEUMONIA UNSPECIFIED 01/17/2014 NARINDER JAIL KEEPER, CEDRICK S 780.8 HOT FLASHES 01/17/2014 NARINDER JAIL KEEPER, CEDRICK S 486 PNEUMONIA UNSPECIFIED 01/17/2014 ANRINDER JAIL KEEPER, CEDRICK S 780.8 HOT FLASHES 04/10/2014 NARINDER JAIL KEEPER, CEDRICK S 346.90 MIGRAINE HEADACHE 04/10/2014 NARINDER JAIL KEEPER, CEDRICK S V15.82 NICOTINE ABUSE 04/10/2014 NARINDER JAIL KEEPER, CEDRICK S 346.90 MIGRAINE HEADACHE 04/10/2014 NARINDER JAIL KEEPER, CEDRICK S V15.82 NICOTINE ABUSE 04/10/2014 NARINDER JAIL KEEPER, CEDRICK S 346.90 MIGRAINE HEADACHE 04/10/2014 NARINDER JAIL KEEPER, CEDRICK S V15.82 NICOTINE ABUSE 04/10/2014 NARINDER JAIL KEEPER, CEDRICK S 346.90 MIGRAINE HEADACHE 04/10/2014 NARINDER JAIL KEEPER, CEDRICK S V15.82 NICOTINE ABUSE 06/27/2014 NARINDER JAIL KEEPER, CEDRICK S 338.11 PAIN - ACUTE PAIN [...] SLIPPING TRIPPING OR STUMBLING 09/15/2014 LUNA RENDON JAIL KEEPER Ot 729.1 MYALGIA AND MYOSITIS NOS 09/15/2014 LUNA RENDON JAIL KEEPER Ot 780.79 OTH MALAISE FATIGUE 09/15/2014 LUNA RENDON JAIL KEEPER Ot 787.91 DIARRHEA 09/18/2014 CEDRICK BARCENAS [...] OTH SCREEN MAMMO-MALIGN NEOPLASM OF BHARGAV 07/01/2016 NARINDER CEDRICK CHURCHILL Ot R10.13 EPIGASTRIC [...] APRN Ot K59.09 OTHER CONSTIPATION 02/17/2017 LUNA REDNON APRN Ot M25.572 PAIN IN LEFT ANKLE AND JOINTS OF LEFT FO 02/17/2017 LUNA RENDON APRN Ot S93.402A SPRAIN OF UNSPECIFIED LIGAMENT OF LEFT A 02/17/2017 LUNA RENDON APRN Ot W51.XXXA ACCIDENTAL STRIKE OR BUMPED INTO BY ANOT 02/17/2017 LUNA RENDON APRN Ot Y92.[address] IN [facility] NON-INSTIT[facility] (PRIVATE 02/17/2017 LUNA RENDON APRN Ot [...] ANOT 02/19/2017 LUNA RENDON APRN Ot Y92.[address] [facility] [address] IN [facility] (PRIVATE 02/19/2017 LUNA RENDON APRN Ot [...] ANOT 02/19/2017 LUNA RENDON APRN Ot Y92.[address] [facility] PL[address] IN [facility] (PRIVATE 02/19/2017 LUNA RENDON APRN Ot Z87.59 [...] Z12.31 ENCNTR SCREEN MAMMOGRAM FOR MALIGNANT NE 11/10/2017 Ot 346.90 MIGRAINE UNSPECIFIED W/O INTRACT MGRN W/ 11/10/2017 Ot 427.89 CARDIAC DYSRHYTHMIAS NEC 11/10/2017 Ot 346.90 MIGRAINE UNSPECIFIED W/O INTRACT MGRN W/ 11/10/2017 Ot 427.89 CARDIAC DYSRHYTHMIAS NEC 11/10/2017 ROBBIE SIMMS DO Ot V76.12 OTH SCREEN MAMMO-MALIGN NEOPLASM OF BHARGAV 11/10/2017 CEDRICK BARCENAS Ot R10.13 EPIGASTRIC PAIN 11/10/2017 DAYANA HELLER DO Ot R11.2 NAUSEA WITH VOMITING, UNSPECIFIED 11/10/2017 DAYANA HELLER DO Ot K82.8 OTHER SPECIFIED DISEASES OF GALLBLADDER 11/10/2017 DAYANA HELLER DO Ot Z01.818 ENCOUNTER FOR OTHER PREPROCEDURAL EXAMIN 11/10/2017 CEDRICK BARCENAS Ot M47.812 SPONDYLOSIS W/O MYELOPATHY OR RADICULOPA 11/10/2017 CEDRICK BARCENAS Ot M54.2 CERVICALGIA 11/10/2017 ROBBIE SIMMS DO Ot Z12.31 ENCNTR SCREEN MAMMOGRAM FOR MALIGNANT NE 11/10/2017 LUNA RENDON APRN Ot E03.9 HYPOTHYROIDISM, UNSPECIFIED 11/10/2017 LUNA RENDON APRN Ot F32.9 MAJOR DEPRESSIVE DISORDER, SINGLE EPISOD 11/10/2017 LUNA RENDON APRN Ot G43.909 MIGRAINE, UNSP, NOT INTRACTABLE, WITHOUT 11/10/2017 LUNA RENDON APRN Ot K21.9 GASTRO-ESOPHAGEAL REFLUX DISEASE WITHOUT 11/10/2017 LUNA RENDON APRN Ot M54.12 RADICULOPATHY, CERVICAL REGION 11/10/2017 LUNA RENDON APRN Ot M54.2 CERVICALGIA 11/10/2017 LUNA RENDON APRN Ot Z87.19 PERSONAL HISTORY OF OTHER DISEASES OF TH 11/10/2017 LUNA RENDON APRN Ot Z90.710 ACQUIRED ABSENCE OF BOTH CERVIX AND UTER 11/10/2017 LUNA RENDON APRN Ot Z90.89 ACQUIRED ABSENCE OF OTHER ORGANS 11/10/2017 LUNA RENDON APRN Ot Z98.51 TUBAL LIGATION STATUS 11/12/2017 LUNA RENDON APRN Ot E03.9 HYPOTHYROIDISM, UNSPECIFIED 11/12/2017 LUNA RENDON APRN Ot F32.9 MAJOR DEPRESSIVE DISORDER, SINGLE EPISOD 11/12/2017 LUNA RENDON APRN Ot G43.909 MIGRAINE, UNSP, NOT INTRACTABLE, WITHOUT 11/12/2017 LUNA RENDON APRN Ot K21.9 GASTRO-ESOPHAGEAL REFLUX DISEASE WITHOUT 11/12/2017 LUNA RENDON APRN Ot M54.12 RADICULOPATHY, CERVICAL REGION 11/12/2017 LUNA RENDON APRN Ot M54.2 CERVICALGIA 11/12/2017 LUNA RENDON APRN Ot Z87.19 PERSONAL HISTORY OF OTHER DISEASES OF TH 11/12/2017 LUNA RENDON APRN Ot Z90.710 ACQUIRED ABSENCE OF BOTH CERVIX AND UTER 11/12/2017 LUNA RENDON APRN Ot Z90.89 ACQUIRED ABSENCE OF OTHER ORGANS 11/12/2017 LUNA RENDON APRN Ot Z98.51 TUBAL LIGATION STATUS 11/12/2017 LUNA RENDON APRN Ot E03.9 HYPOTHYROIDISM, UNSPECIFIED 11/12/2017 LUNA RENDON APRN Ot F32.9 MAJOR DEPRESSIVE DISORDER, SINGLE EPISOD 11/12/2017 LUNA RENDON APRN Ot G43.909 MIGRAINE, UNSP, NOT INTRACTABLE, WITHOUT 11/12/2017 LUNA RENDON APRN Ot K21.9 GASTRO-ESOPHAGEAL REFLUX DISEASE WITHOUT 11/12/2017 LUNA RENDON APRN Ot M54.12 RADICULOPATHY, CERVICAL REGION 11/12/2017 LUNA RENDON APRN Ot M54.2 CERVICALGIA 11/12/2017 LUNA RENDON APRN Ot Z87.19 PERSONAL HISTORY OF OTHER DISEASES OF TH 11/12/2017 LUNA RENDON APRN Ot Z90.710 ACQUIRED ABSENCE OF BOTH CERVIX AND UTER 11/12/2017 LUNA RENDON APRN Ot Z90.89 ACQUIRED ABSENCE OF OTHER ORGANS 11/12/2017 ULNA RENDON APRN Ot Z98.51 TUBAL LIGATION STATUS 02/11/2018 Ot 346.90 MIGRAINE UNSPECIFIED W/O INTRACT MGRN W/ 02/11/2018 Ot 427.89 CARDIAC DYSRHYTHMIAS NEC 02/11/2018 Ot 346.90 MIGRAINE UNSPECIFIED W/O INTRACT MGRN W/ 02/11/2018 Ot 427.89 CARDIAC DYSRHYTHMIAS NEC 02/11/2018 ROBBIE SIMMS DO Ot V76.12 OTH SCREEN MAMMO-MALIGN NEOPLASM OF BHARGAV 02/11/2018 CEDRICK BARCENAS Ot R10.13 EPIGASTRIC PAIN 02/11/2018 DAYANA HELLER DO Ot R11.2 NAUSEA WITH VOMITING, UNSPECIFIED 02/11/2018 DAYANA HELLER DO Ot K82.8 OTHER SPECIFIED DISEASES OF GALLBLADDER 02/11/2018 DAYANA HELLER DO Ot Z01.818 ENCOUNTER FOR OTHER PREPROCEDURAL EXAMIN 02/11/2018 CEDRICK BARCENAS Ot M47.812 SPONDYLOSIS W/O MYELOPATHY OR RADICULOPA 02/11/2018 CEDRICK BARCENAS Ot M54.2 CERVICALGIA 02/11/2018 ROBBIE SIMMS DO Ot Z12.31 ENCNTR SCREEN MAMMOGRAM FOR MALIGNANT NE 02/12/2018 Ot 346.90 MIGRAINE UNSPECIFIED W/O INTRACT MGRN W/ 02/12/2018 Ot 427.89 CARDIAC DYSRHYTHMIAS NEC 02/12/2018 Ot 346.90 MIGRAINE UNSPECIFIED W/O INTRACT MGRN W/ 02/12/2018 Ot 427.89 CARDIAC DYSRHYTHMIAS NEC 02/12/2018 ROBBIE SIMMS DO Ot V76.12 OTH SCREEN MAMMO-MALIGN NEOPLASM OF BHARGAV 02/12/2018 CEDRICK BARCENAS Ot R10.13 EPIGASTRIC PAIN 02/12/2018 DAYANA HELLER DO Ot R11.2 NAUSEA WITH VOMITING, UNSPECIFIED 02/12/2018 DAYANA HELLER DO Ot K82.8 OTHER SPECIFIED DISEASES OF GALLBLADDER 02/12/2018 DAYANA HELLER DO Ot Z01.818 ENCOUNTER FOR OTHER PREPROCEDURAL EXAMIN 02/12/2018 CEDRICK BARCENAS Ot M47.812 SPONDYLOSIS W/O MYELOPATHY OR RADICULOPA 02/12/2018 CEDRICK BARCENAS Ot M54.2 CERVICALGIA 02/12/2018 ROBBIE SIMMS DO Ot Z12.31 ENCNTR SCREEN MAMMOGRAM FOR MALIGNANT NE Procedures Code Description Performed By Performed On 59.79 URIN INCONTIN REPAIR NEC 01/14/2011 65.61 OTH REMOVE BOTH OVARIES/ TUBES 01/14/2011 68.51 ASSIST VAG HYSTER(LAVH) 01/14/2011 70.51 CYSTOCELE REPAIR 01/14/2011 80312 ROUTINE VENIPUNCTURE 08/19/2012 66119 A1C (IN-HOUSE) 08/19/2012 68379 CBC 08/19/2012 22198 CMP 08/19/2012 44691 LIPID PANEL 08/19/2012 0738121 GFR CALC (RESULT ONLY) 08/19/2012 47734 BNP 08/19/2012 36858 TSH 08/19/2012 83879 CRP HS (CARDIO) 08/19/2012 13364 EKG, TRACING (IN-HOUSE) 08/19/2012 CARDI BAQIR, REYNALDO 08/19/2012 38008 HOLTER MONITOR 11/16/2012 39866 PULMONARY FUNCTION TEST 12/06/2012 71579 PULMONARY FUNCTION TEST (IN- HOUSE) 01/28/2013 56392 RESPIRATORY FLOW VOLUME LOOP 01/28/2013 97926 PULMONARY EDUCATION 01/28/2013 32804 URINE DRUG SCREEN (IN-HOUSE ) 08/11/2013 43166 THERAPUTIC INJ SQ/IM 08/11/2013 J2550 PHENERGAN INJECTION UP TO 50 MG 08/11/2013 J1885 TORADOL INJ 08/11/2013 74120 ROUTINE VENIPUNCTURE 08/16/2013 86906 CBC 08/16/2013 57636 ROUTINE VENIPUNCTURE 08/24/2013 7587295 GFR CALC (RESULT ONLY) 08/24/2013 81255 CMP 08/24/2013 44507 LIPID PANEL 08/24/2013 94511 TSH 08/24/2013 84040 ROUTINE VENIPUNCTURE 10/19/2013 20888 TSH 10/19/2013 47901 ROUTINE VENIPUNCTURE 11/10/2013 26066 XRAY CERVICAL SPINE, 2 OR 3 VIEWS 11/10/2013 01419 OXIMETRY 11/10/2013 31611 URIC ACID 11/10/2013 75871 CRP 11/10/2013 29452 ASO 11/11/2013 07484 RA FACTOR 11/11/2013 ANAANA PIOTR ANALYZER (SCREEN) 11/11/2013 88410 ROUTINE VENIPUNCTURE 04/10/2014 71552 BONE MINERAL DENSITY, HEEL US (IN HOUSE) 04/10/2014 10237 CBC 04/10/2014 8457395 GFR CALC (RESULT ONLY) 04/10/2014 79816 CMP 04/10/2014 77699 LIPID PANEL 04/10/2014 25409 TSH 04/10/2014 65341 A1C (RML) 04/11/2014 71128 AMERITOX 04/12/2014 37010 SLEEP STUDY ([facility] SLEEP STUDY) 04/19/2014 Results Test Result [...] Status Pt. Type Provider Facility Loc./Unit Complaint [id number] 09/18/2014 16:01:00 09/18/2014 23:59:59 CLS Outpatient NARINDER JAIL KEEPER, CEDRICK S [id number] 06/27/2014 14:49:00 06/27/2014 23:59:59 CLS Outpatient NARINDER JAIL KEEPER, CEDRICK S [id number] 04/19/2014 13:27:00 04/19/2014 23:59:59 CLS Outpatient NARINDER JAIL KEEPER, CEDRICK S [id number] 04/10/2014 12:06:00 04/10/2014 23:59:59 CLS Outpatient NARINDER JAIL KEEPER, CEDRICK S [id number] 01/17/2014 13:53:00 01/17/2014 23:59:59 CLS Outpatient NARINDER JAIL KEEPER, CEDRICK S [id number] 11/10/2013 12:50:00 11/10/2013 23:59:59 CLS Outpatient NARINDER JAIL KEEPER, CEDRICK S [id number] 10/19/2013 15:04:00 10/19/2013 23:59:59 CLS Outpatient NARINDER JAIL KEEPER, CEDRICK S [id number] 08/24/2013 08:51:00 08/24/2013 23:59:59 CLS Outpatient NARINDER JAIL KEEPER, CEDRICK S [id number] 08/16/2013 11:48:00 08/16/2013 23:59:59 CLS Outpatient NARINDER JAIL KEEPER, CEDRICK S [id number] 08/11/2013 11:52:00 08/11/2013 23:59:59 CLS Outpatient NARINDER JAIL KEEPER, CEDRICK S [id number] 04/21/2013 14:10:00 04/21/2013 23:59:59 CLS Outpatient MARBIN CARY DO [id number] 02/17/2013 12:23:00 02/17/2013 23:59:59 CLS Outpatient NARINDER JAIL KEEPER, CEDRICK S [id number] 08/19/2012 15:05:00 08/19/2012 23:59:59 CLS Outpatient MARBIN CARY DO [id number] 06/22/2012 13:32:00 06/22/2012 23:59:59 CLS Outpatient CEDRICK BARCENAS APRN [id number] 02/23/2012 12:21:00 02/23/2012 23:59:59 CLS Outpatient ELI KNIGHT DDS [id number] 01/28/2013 13:06:00 Document Registration [id number] 11/30/2012 13:29:00 Document Registration [id number] 11/12/2012 13:21:00 Document Registration [id number] 10/21/2012 18:05:00 Document Registration [id number] 05/01/2016 08:08:00 Document Registration [id number] 02/03/2018 09:40:00 02/03/2018 23:59:59 CLS Outpatient CEDRICK BARCENAS APRN [facility] [id number] 08/12/2017 17:00:00 Document Registration [id number] 06/22/2017 15:00:00 Document Registration [id number] 11/10/2017 19:31:00 11/10/2017 21:37:00 DIS Emergency LUNA RENDON JAIL KEEPER Via [facility] ER NECK PAIN [id number] 06/23/2017 11:23:00 06/23/2017 23:59:59 CLS Preadmit CEDRICK BARCENAS [employer] DELIV[employer] CONSULTANT Via [facility] REHAB BACK AND NECK PAIN [id number] 02/17/2017 20:26:00 02/17/2017 21:14:00 DIS Emergency LUNA RENDON JAIL KEEPER Via [facility] ER ANKLE PAIN [id number] 10/14/2016 14:18:00 10/14/2016 23:59:59 CLS Outpatient ROBBIE SIMMS DO Via [facility] RAD SCREENING [id number] 09/19/2016 13:00:00 09/19/2016 23:59:59 CLS Outpatient CEDRICK BARCENAS [employer] DELIVERY CONSULTANT Via [facility] RAD CERVICALGIA [id number] 07/23/2016 13:47:00 07/23/2016 23:59:59 CLS Preadmit CEDRICK BARCENAS Via [facility] REHAB BACK PAIN [id number] 04/27/2015 05:58:00 04/27/2015 14:37:00 DIS Outpatient DAYANA HELLER DO Via [facility] SDC BILIARY DYSKNESIA [id number] 04/25/2015 11:25:00 04/25/2015 23:59:59 CLS Outpatient HELLER DAYANA FLORES [facility] PREOP DILIARY DYSKNESIA [id number] 04/25/2015 11:11:00 04/25/2015 23:59:59 CLS Outpatient HELLER DAYANA FLORES [facility] RAD N/V [id number] 04/22/2015 22:41:00 04/23/2015 02:17:00 DIS Emergency TONYSHAYE Santamaria DO Via [facility] ER GALLBLADDER PAIN [id number] 04/19/2015 10:39:00 04/19/2015 23:59:59 CLS Outpatient CEDRICK BARCENAS [facility] RAD EPIGASTIC PAIN [id number] 01/08/2015 11:00:00 02/28/2015 00:01:00 DIS Outpatient CEDRICK BARCENAS [facility] CARD BRADYCARDIA [id number] 09/15/2014 12:44:00 09/15/2014 14:27:00 DIS Emergency LUNA RENDON APRN [facility] ER BODYACHES DIARRHEA [id number] 01/25/2014 14:54:00 01/25/2014 23:59:59 CLS Outpatient ROBBIE SIMMS DO Via [facility] RAD ROUTINE [id number] 12/09/2013 15:28:00 12/09/2013 23:59:59 CLS Outpatient [id number] 08/18/2013 09:15:00 08/18/2013 16:39:00 DIS Outpatient CEDRICK BARCENAS [facility] REHAB LOW BACK PAIN [id number] 11/19/2012 09:17:00 02/17/2013 00:01:00 DIS Outpatient CEDRICK BARCENAS [facility] CARD BRADYCARDIA [id number] 11/16/2012 10:50:00 02/14/2013 00:01:00 DIS Outpatient CEDRICK BARCENAS [employer] DELIVERY CONSULTANT [facility] CARD BRADYCARDIA,SEVERE MIGRAINES [id number] 01/05/2013 21:13:00 01/06/2013 06:20:00 DIS Outpatient CEDRICK BARCENAS [employer] DELIVERY CONSULTANT Via [facility] SLEEP SNORING,HAVING EPISODES OF BRADYCARDIA [id number] 11/09/2012 12:35:00 11/09/2012 19:25:00 DIS Outpatient JARRET VERMA FACC, MELONIE SOLITARIO CCDS [facility] CATH CHEST PAIN, SOB,BRADYCARDIA, [id number] 04/11/2015 15:42:00 Document Registration [id number] 02/18/2013 09:00:00 Document Registration [id number] 02/15/2013 10:00:00 Document Registration [id number] 03/09/2012 05:55:00 Document Registration [id number] 03/03/2012 13:06:00 Document Registration [id number] 08/25/2011 09:50:00 Document Registration [id number] 01/14/2011 05:50:00 Document Registration [id number] 01/09/2011 08:48:00 Document Registration [id number] 11/07/2010 09:43:00 Document Registration [id number] 10/14/2010 08:35:00 Document Registration [id number] 09/09/2010 17:06:00 Document Registration [id number] 08/21/2010 11:07:00 Document Registration [id number] 04/16/2010 14:16:00 Document Registration [id number] 01/07/2010 13:14:00 Document Registration [id number] 11/17/2016 23:41:00 11/18/2016 00:55:00 [place] [facility] [place] [id number] 11/18/2016 00:19:47 Document Registration [id number] 05/03/2016 07:06:00 Document Registration
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
[2018-03-04] MEDS ORDERED: ONDA4TAB8 SL (18:59)
[2018-03-04 19:05] VITALS: BP 141/83
== END 2018-03-04 19:01 | disposition home or self-care (01) ==
LOC: EDUNIT# 17:26 → ER 17:27
DX: G43.909 Migraine, unspecified, not intractable, without status migrainosus (principal); R11.2 Nausea with vomiting, unspecified; K21.9 Gastro-esophageal reflux disease without esophagitis; E03.9 Hypothyroidism, unspecified; F32.9 Major depressive disorder, single episode, unspecified; F17.210 Nicotine dependence, cigarettes, uncomplicated; Z79.51 Long term (current) use of inhaled steroids; Z87.19 Personal history of other diseases of the digestive system; Z90.710 Acquired absence of both cervix and uterus; Z98.51 Tubal ligation status; Z90.89 Acquired absence of other organs
CPT/HCPCS: 99284

== ENCOUNTER → 2018-03-20 | Outpatient (CLI) | payer BC ==
[~2018-03-20] MED LIST changes: +ONDA4TAB8 SL
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
== END ==
LOC: RAD 10:09
PROVIDERS: ATTEND Physician Assistant
DX: M47.812 Spondylosis without myelopathy or radiculopathy, cervical region (principal); M99.71 Connective tissue and disc stenosis of intervertebral foramina of cervical region
CPT/HCPCS: 72141

== ENCOUNTER 2018-05-14 15:59 | Outpatient (RCR) | payer BC | END 2018-05-28 13:24 | disposition home or self-care (01) | PROVIDERS: ATTEND Physician Assistant | DX: M54.12 Radiculopathy, cervical region (principal) ==

== ENCOUNTER 2019-05-31 13:32 | Emergency (ER) | payer OTHER, BC ==
[~2019-05-31] VITALS: Ht 160 cm; Wt 70.8 kg
[2019-05-31] MEDS ORDERED: VENL225T (13:49)
[2019-05-31] MEDS ORDERED: HYDR-3820 (13:49)
[2019-05-31] MEDS ORDERED: LEVO125T6 (13:49)
[2019-05-31] MEDS ORDERED: KETOROLAC 30 MG/ML VIAL IM ONE (14:00)
[2019-05-31] MEDS ORDERED: PRD20T PO (14:06)
[2019-05-31] MEDS ORDERED: CYCL10TA9 PO (14:06)
--- NOTE | 2019-05-31 14:06 | ED Back Pain ---
General Chief Complaint: Back Problems Stated Complaint: BACK PAIN Nursing Triage Note: ARRIVED VIA AMB TO TRIAGE WITH COMPLAINTS OF BACK PAIN STARTING THURSDAY WHILE AT WORK. 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 WOKE UP THURSDAY MORNING IN PAIN AND HAS CALLED INTO WORK THE LAST TWO DAYS. Nursing Sepsis Screen: No Definite Risk Source of Information: Patient Exam Limitations: No Limitations History of Present Illness Date Seen by Provider: May 31, 2019 Time Seen by Provider: 13:43 Initial Comments This 53-year-old woman presents to the emergency room by private vehicle with lower back injury. She states injury occurred on May 26. 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 She felt her back pop at that time. She did not have much pain initially but pain escalated with time. By the next morning she was unable to get out of bed. She was unable to work today due to the pain. She has a slight radiation of pain into the right buttock and thigh. She denies any bowel or bladder dysfunction, saddle paresthesia, or weakness in the legs. She takes hydrocodone twice a day for chronic pain. She is under contract with [facility] for pain management. She tried a Yonis's back relief which was not very helpful. Allergies and Home Medications Allergies Coded Allergies: metformin (Verified Allergy, Severe, EDEMA, 05/31/19) Home Medications Cyclobenzaprine HCl 10 Mg Tablet, 10 MG PO Q8H PRN for SPASMS Prescribed by: LAURA STRINGER on 05/31/19 1406 Prednisone 20 Mg Tab, 40 MG PO DAILY Prescribed by: LAURA STRINGER on 05/31/19 1406 Patient Home Medication List Home Medication List Reviewed: Yes Review of Systems Constitutional: no symptoms reported EENTM: no symptoms reported Respiratory: no symptoms reported Cardiovascular: no symptoms reported Genitourinary: no symptoms reported : No Musculoskeletal: see HPI Skin: no symptoms reported Psychiatric/Neurological: See HPI Past Xpaifkd-Mhlzij-Ppbdpz Hx Past Med/Social Hx: Reviewed Nursing Past Med/Soc Hx Patient Social History Alcohol Use: Denies Use Recreational Drug Use: No Smoking Status: Current Everyday Smoker Type Used: Cigarettes Recent Foreign Travel: No Contact w/Someone Who Travel: No Recent Infectious Disease Expo: No Recent Hopitalizations: No Immunizations Up To Date Date of Influenza Vaccine: Mar 06, 2015 Seasonal Allergies Seasonal Allergies: No Past Medical History Surgeries: Yes (MESH SLING/REVISION OF SLING; LEFT KNEE) Bladder Surgery, Hysterectomy, Oophorectomy, Orthopedic, Tonsillectomy, Tubal Ligation Respiratory: Yes (WEARS O2 @ NIGHT) Cardiac: Yes (BRADYCARDIA @ NIGHT) Neurological: Yes Headaches /Migraines Reproductive Disorders: No Female Reproductive Disorders: Denies [employer] History: Hysterectomy, Tubal Ligation Sexually Transmitted Disease: No HIV/AIDS: No Gastrointestinal: Yes Gastroesophageal Reflux, Chronic Constipation, Gall Bladder Disease Musculoskeletal: Yes Fibromyalgia Endocrine: Yes (THYROID) Hypothyroidsim Loss of Vision: Bilateral Hearing Impairment: Denies Cancer: No Psychosocial: Yes Depression Integumentary: No Blood Disorders: No Adverse Reaction/Blood Tranf: No Physical Exam Vital Signs Vital Signs - First Documented 05/31/19 13:38 Temp 36.8 Pulse 85 Resp 16 B/P (MAP) 156/100 (118) Pulse Ox 100 O2 Delivery Room Air Capillary Refill : Less Than 3 Seconds Height, Weight, BMI Height: 5'3.00" Weight: 152lbs. 0.0oz. 68.629028ea; 27.00 BMI Method:Stated General Appearance: WD/WN, Mild Distress HEENT: PERRL/EOMI, Normal ENT Inspection Neck: Normal Inspection Cardiovascular: Regular Rate, Rhythm, No Edema, No Murmur Respiratory: Lungs Clear, Normal Breath Sounds, No Accessory Muscle Use Back: Vertebral Tenderness (lower lumbar spine and in the right SI joint region) Extremity: Normal Inspection, No Pedal Edema Neurologic/Psychiatric: Alert, Oriented x3, No Motor/Sensory Deficits, Normal Mood/Affect Skin: Normal Color, Warm/Dry Progress/Results/Core Measures Results/Orders My Orders Orders - LAURA LE MD Ketorolac Injection (Toradol Injection) (05/31/19 14:00) Medications Given in ED Current Medications Medications Dose Ordered Sig/Charbel Route Start Time Stop Time Status Last Admin Dose Admin Ketorolac Tromethamine 30 mg ONCE ONCE IM 05/31/19 14:00 05/31/19 14:01 DC 05/31/19 13:59 30 MG Vital Signs/I&O 05/31/19 05/31/19 13:38 14:09 Temp 36.8 36.8 Pulse 85 85 Resp 16 16 B/P (MAP) 156/100 (118) 156/100 (118) Pulse Ox 100 100 O2 Delivery Room Air Room Air Blood Pressure Mean: 118 Progress Progress Note : Progress Note Patient was treated with a Toradol injection and started on prednisone and Norflex. Work restriction forms from her employer were completed. Departure Impression Primary Impression: Low back pain Qualified Codes: M54.41 - Lumbago with sciatica, right side Additional Impression: Lumbar strain Qualified Codes: S39.012A - Strain of muscle, fascia and tendon of lower back, 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 Disposition: HOME, SELF-CARE Condition: Improved Departure-Patient Inst. Decision time for Depature: 14:03 Referrals: KERRY SCHROEDER MD (PCP) Primary Care Physician Patient Instructions: Low Back Pain (DC), Muscle Strain (DC) Add. Discharge Instructions: Follow-up with your employers occupational health provider as soon as possible. You may return to work tomorrow with restrictions listed on the forearm. For primary pain control you may use ibuprofen up to 600 mg every 6 hours. Add either Tylenol or your hydrocodone for pain not controlled by ibuprofen. You may use the muscle relaxers when you are at home and can relax. Complete the 4 days of steroids to reduce inflammation. Return to the emergency room if you have worsening symptoms despite treatment, if you develop weakness of your legs, have difficulty controlling bowels or b ladder, or develop numbness in your groin. Gentle heat to your lower back may help you relax. All discharge instructions reviewed with patient and/or family. Voiced understanding. Scripts Prednisone (Prednisone) 20 Mg Tab 40 MG PO DAILY, #8 TAB 0 Refills Prov: LAURA LE MD 05/31/19 Cyclobenzaprine HCl (Cyclobenzaprine HCl) 10 Mg Tablet 10 MG PO Q8H PRN for SPASMS, #15 TAB 0 Refills Prov: LAURA LE MD 05/31/19 LAURA LE MD May 31, 2019 14:06
[2019-05-31 14:09] VITALS: BP 156/100
== END 2019-05-31 14:09 | disposition home or self-care (01) ==
LOC: EDUNIT# 13:32 → ER 13:33
DX: S39.012A Strain of muscle, fascia and tendon of lower back, 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 (principal); G43.909 Migraine, unspecified, not intractable, without status migrainosus; K21.9 Gastro-esophageal reflux disease without esophagitis; M79.7 Fibromyalgia; E03.9 Hypothyroidism, unspecified; F32.9 Major depressive disorder, single episode, unspecified; F17.210 Nicotine dependence, cigarettes, uncomplicated; Z90.710 Acquired absence of both cervix and uterus; Z98.51 Tubal ligation status; Z88.8 Allergy status to other drugs, medicaments and biological substances; X50.1XXA Overexertion from prolonged static or awkward postures, 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; Y92.129 Unspecified place in nursing home as the place of occurrence of the external cause
CPT/HCPCS: 96372; 99284

== ENCOUNTER 2019-10-01 10:37 | Emergency (ER) | payer BC, OTHER ==
[~2019-10-01] VITALS: Ht 160 cm; Wt 68.0 kg
[~2019-10-01 10:37] MED LIST changes: +ACHYD1T; +CYCL10TA9 PO; +LEVO125T6; +PRD20T PO; +VENL225T
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
--- OUTSIDE RECORDS SUMMARY | 2019-10-01 10:45 | XMS REPORT ---
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 Temperature [degF] 17:20-0400 44259 [facility] ([id number]) Body 98 [degF] (no code) 97.8 - 99.0 02-03-2018 [facility] Temperature [degF] 10:40-0400 04719 [facility] ([id number]) Body 99.1 [degF] (no code) 97.8 - 99.0 01-24-2018 [facility] Temperature [degF] 18:50-[address] ([id number]) Body 98.2 [degF] (no code) 97.8 - 99.0 01-20-2018 [facility] Temperature [degF] 16:00-0400 36823 [facility] ([id number]) Body 98.1 [degF] (no code) 97.8 - 99.0 10-05-2017 [facility] Temperature [degF] 17:00-[address] [place] [address] ([id number]) Height 160.02 cm (no code) cm 03-17-2018 [facility] 17:20-0400 55396 [facility] ([id number]) Height 160.02 cm (no code) cm 03-08-2018 [facility] 17:40-[id number] [place] [address] ([id number]) Height 160.02 cm (no code) cm 02-03-2018 [facility] 10:40-[address] [place] [address] ([id number]) Height 160.02 cm (no code) cm 01-24-2018 [facility] 18:50-[address] ([id number]) Height 160.02 cm (no code) cm 01-20-2018 [facility] 16:00-[id number] [place] [address] ([id number]) Height 160.02 cm (no code) cm 10-05-2017 [facility] 17:00-[id number] [place] [address] ([id number]) Pulse Oximetry 93 % (no code) 95 - 100 % 02-03-[address] [facility] 10:40-0400 01861 [facility] ([id number]) Pulse Oximetry 97 % (no code) 95 - 100 % 10-05-[address] [facility] 17:00-[id number] [place] [address] ([id number]) Weight 75.3 kg (no code) kg 03-17-2018 [facility] 17:20-[id number] [place] [address] ([id number]) Weight 75.48 kg (no code) kg 03-08-2018 [facility] 17:40-[id number] [place] [address] ([id number]) Weight 72.44 kg (no code) kg 02-03-2018 [facility] 10:40-0400 24329 [facility] ([id number]) Weight 72.67 kg (no code) kg 01-24-2018 NAHID kim 18:50-0400 AVNI 93581 [facility] ([id number]) Weight 74.53 kg (no code) kg 01-20-2018 [facility] 16:00-0400 70374 [facility] ([id number]) Weight 74.93 kg (no code) kg 10-05-2017 [facility] 17:00-[address] [place] [address] ([id number]) Interventions No Information Plan of Treatment Normalized Care Care Detail Care Activity Date Care Provider F acility Activity (CHM) Chronic Health [facility] 06-14-2018 - [facility] [id number] [facility] 06-14-2018 - [facility] 06-14-2018 [place] ([id number]) Goals No Information Social History The data below is from unstructured sources History Response Recorde d Date/Time Hx Family Cancer N 01/09 9:14am Hx Family Cardiac Disorders Y GRANDFATHER 01/09/11 9:14am Hx Family Stroke Y MOTHER/AUNT 01/09/11 9:14am History Response Recorde d Date/Time Hx Family Cancer N 01/09 9:14am Functional Status The data below is from unstructured sources Query Response Date Casa rded Comprehension Ability Understands Co ncepts March 04, 2018 6:02pm Mental Status No Information Encounters Encounter Normalized Encounter Encounter Diagnosis Care Provi radha Organization Date Type 05-14-2018 Discharged Recurring no information LAURA LANTIGUA Work no organization name - (no phone) 05-28-2018 05-31-2019 Emergency department no information no name (no nancy ne) no organization name - patient visit (no phone) 05-31-2019 03-04-2018 Emergency department no information LAURA ANDERSEN no organization name - patient visit Work Phone: (no phone) 03-04-2018 03-04-2018 Emergency department no information no name (no nancy ne) no organization name - patient visit (no phone) 03-04-2018 11-10-2017 Emergency department no information LUNA Carrillo APRN [employer] [facility] no organization name - patient visit Work Phone: (no phone) 11-10-2017 11-10-2017 Emergency department no information no name (no nancy ne) no organization name - patient visit (no phone) 11-10-2017 02-17-2017 Emergency department no information no name (no nancy ne) no organization name - patient visit (no phone) 02-17-2017 04-22-2015 Emergency department no information no name (no nancy ne) no organization name - patient visit (no phone) 04-22-2015 04-13-2018 Patient encounter no information no name (no phone) no organization name (no phone) 03-20-2018 Patient encounter no information no name (no phone) no organization name (no phone) 03-04-2018 Patient encounter no information no name (no phone) no organization name (no phone) 02-03-2018 Patient encounter no information no name (no phone) no organization name (no phone) 11-10-2017 Patient encounter no information no name (no phone) no organization name (no phone) 10-05-2017 Patient encounter no information no name (no phone) no organization name (no phone) 09-15-2017 Patient encounter no information no name (no phone) no organization name (no phone) NEGATED Patient encounter no information no name (no phone) no organization name 09-14-2017 (no phone) 08-12-2017 Patient encounter no information no name (no phone) no organization name (no phone) 08-06-2017 Patient encounter no information no name (no phone) no organization name (no phone) 08-05-2017 Patient encounter no information no name (no phone) no organization name (no phone) 07-07-2017 Patient encounter no information no name (no phone) no organization name (no phone) 06-22-2017 Patient encounter no information no name (no phone) no organization name (no phone) 10-14-2016 Patient encounter no information no name (no phone) no organization name (no phone) 09-19-2016 Patient encounter no information no name (no phone) no organization name (no phone) 04-27-2015 Patient encounter no information no name (no phone) no organization name - (no phone) 04-27-2015 04-25-2015 Patient encounter no information no name (no phone) no organization name (no phone) 01-08-2015 Patient encounter no information no name (no phone) no organization name - (no phone) 02-28-2015 01-25-2014 Patient encounter no information no name (no phone) no organization name (no phone) 08-18-2013 Patient encounter no information no name (no phone) no organization name - (no phone) 08-18-2013 02-18-2013 Patient encounter no information no name (no phone) no organization name (no phone) 02-15-2013 Patient encounter no information no name (no phone) no organization name (no phone) 01-05-2013 Patient encounter no information no name (no phone) no organization name - (no phone) 01-06-2013 11-19-2012 Patient encounter no information no name (no phone) no organization name - (no phone) 02-17-2013 11-16-2012 Patient encounter no information no name (no phone) no organization name - (no phone) 02-14-2013 11-09-2012 Patient encounter no information no name (no phone) no organization name - (no phone) 11-09-2012 03-09-2012 Patient encounter no information no name (no phone) no organization name - (no phone) 03-09-2012 03-03-2012 Patient encounter no information no name (no phone) no organization name (no phone) 08-01-2019 Patient encounter no information (no phone) [facility] (no phone) 07-14-2019 Patient encounter no information CEDRICK BARCENAS ( no [facility] procedure phone) [facility] (no phone) 06-20-2019 Patient encounter no information no name (no phone) no organization name procedure (no phone) 05-31-2019 Patient encounter no information no name (no phone) no organization name procedure (no phone) 02-07-2019 Patient encounter no information no name (no phone) no organization name procedure (no phone) 11-24-2018 Patient encounter no information no name (no phone) no organization name procedure (no phone) 11-12-2018 Patient encounter no information no name (no phone) no organization name procedure (no phone) 09-22-2018 Patient encounter no information no name (no phone) no organization name procedure (no phone) 06-14-2018 Patient encounter no information no name (no phone) no organization name procedure (no phone) 05-14-2018 Patient encounter no information no name (no phone) no organization name - procedure (no phone) 05-28-2018 05-14-2018 Patient encounter no information no name (no phone) no organization name - procedure (no phone) 05-28-2018 05-11-2018 Patient encounter no information no name (no phone) no organization name procedure (no phone) 05-07-2018 Patient encounter no information no name (no phone) no organization name procedure (no phone) 04-30-2018 Patient encounter no information no name (no phone) no organization name procedure (no phone) 04-27-2018 Patient encounter no information no name (no phone) no organization name procedure (no phone) 04-20-2018 Patient encounter no information no name (no phone) no organization name procedure (no phone) 03-19-2018 Patient encounter no information no name (no phone) no organization name procedure (no phone) 02-17-2017 Patient encounter no information no name (no phone) no organization name procedure (no phone) 11-18-2016 Patient encounter no information no name (no phone) no organization name - procedure (no phone) 11-18-2016 11-17-2016 Patient encounter no information no name (no phone) no organization name procedure (no phone) 10-14-2016 Patient encounter no information no name (no phone) no organization name procedure (no phone) 04-27-2015 Patient encounter no information no name (no phone) no organization name - procedure (no phone) 04-27-2015 04-25-2015 Patient encounter no information no name (no phone) no organization name procedure (no phone) 04-19-2015 Patient encounter no information no name (no phone) no organization name procedure (no phone) 01-25-2014 Patient encounter no information no name (no phone) no organization name procedure (no phone) 08-25-2011 Patient encounter no information no name (no phone) no organization name procedure (no phone) no information Encounter for other no name (no phone) no org anization name preprocedural (no phone) examination no information Pre-operative no name (no phone) no organiza tion name examination, (no phone) unspecified Medical Equipment No Information Payers Normalized Payer Value [facility] no information History general Narrative - Reported Note Type Note Facility History general Narrative - Reported Type Medical hypothyroidism History Medical anxiety History Medical chronic back pain History Medical hypercholesterolemia History Medical bronchitis History Surgical hysterectomy 2010 History Surgical revision of the mesh sling 2011 History Surgical cholecystectomy History Surgical tonsilectomy History Surgical L knee tumor removal History Hospitaliz surgeries [facility] ([id number]) History general Narrative - Reported Note Type Note Facility History general Narrative - Reported Type Medical hypothyroidism History Medical anxiety History Medical chronic back pain History Medical hypercholesterolemia History Medical bronchitis History Medical no hx of seizures History Surgical hysterectomy 2010 History Surgical revision of the mesh sling 2011 History Surgical cholecystectomy History Surgical tonsilectomy History Surgical L knee tumor removal History Hospitaliz surgeries [facility] ([id number]) Summary Purpose eClinicalWorks SubmissioneClinicalWorks SubmissioneClinicalWorks SubmissioneClinicalWorks SubmissioneClinicalWorks SubmissioneClinicalWorks SubmissioneClinicalWorks SubmissioneClinicalWorks SubmissioneClinicalWorks SubmissioneClinicalWorks SubmissioneClinicalWorks SubmissioneClinicalWorks SubmissioneClinicalWorks SubmissioneClinicalWorks SubmissioneClinicalWorks SubmissioneClinicalWorks SubmissioneClinicalWorks SubmissioneClinicalWorks SubmissioneClinicalWorks SubmissioneClinicalWorks SubmissioneClinicalWorks Submission Advance Directives Directive Response Recor ded Date/Time Advance Directives No 7:35am Health Care Power of Precast Molder No 04/27/15 7:35am Organ Donor No 04/27/15 7:35am Resuscitation Status Full Code 04/27/15 7:35am Directive Response Recor ded Date/Time Advance Directives No 11:17pm Organ Donor No 04/22/15 11:17pm Resuscitation Status Full Code 04/22/15 11:17pm Directive Response Recor ded Date Advance Directives N 04/13 1:04pm Organ Donor N 11/09/12 1 :04pm Directive Response Recor ded Date/Time Advance Directives No 12:48pm Organ Donor No 09/15/14 12:48pm Resuscitation Status Full Code 09/15/14 12:48pm Directive Response Recor ded Date/Time Advance Directives No 12:48pm Organ Donor No 09/15/14 12:48pm Directive Response Recor ded Date/Time Advance Directives No 8:35pm Health Care Power of Precast Molder No 02/17/17 8:35pm Organ Donor No 02/17/17 8:35pm Resuscitation Status Full Code 02/17/17 8:35pm Directive Response Recor ded Date/Time Advance Directives No 8:35pm Health Care Power of Precast Molder No 02/17/17 8:35pm Organ Donor No 02/17/17 8:35pm Directive Response Recor ded Date/Time Advance Directives No 5:57pm Health Care Power of Precast Molder No 03/04/18 5:57pm Organ Donor No 03/04/18 5:57pm Resuscitation Status Full Code 03/04/18 5:57pm Directive Response Recor ded Date/Time Advance Directives No 5:57pm Health Care Power of Precast Molder No 03/04/18 5:57pm Organ Donor No 03/04/18 5:57pm Discharge Instructions Patient Instructions Physician Instructions New, Converted or Re-Newed RX: RX on Chart Plan of Care/Instructions/FU: 2 weeks Heller Activity as Tolerated: Yes Discharge Diet: Regular Diet Other Inst to Patient Follow up Appt: Make appointment for 2 weeks. Instructions: No lifting greater than 10 pounds. No strenuous activity. May shower in 24 hours, no tub bath or soaking. Use incentive spirometer at home as directed. No Smoking Skin/Wound Care: May remove bandages in 24 hours. You need to leave the white strips over incision on they will fall off on their own. Symptoms to Report: Appetite Changes, Extremity Discoloration, Numbness/Tingling, Swelling Increased, Bleeding Excessive, Eyesight Changes, Pain Increased, Urine Color Change, Constipation(Persistent), Fever over 101 degree F, Pain/Pressure in chest, Urinating Difficulty, Cough Up/Vomit Blood, Heart Beat Irreg/Pounding, Pain/Pressure in jaw, Vaginal Bleeding Increase, Cramps in feet or legs, Lightheadedness, Pain/Pressure in shoulder, Diarrhea(Persistent), Memory Changes Suddenly, Questions/Concerns, Weight gain consecutive days, Dizziness/Fainting, Nausea/Vomiting, Shortness of Breath, Weight gain over 2 pounds. If eyes or skin turn yellow notify physician. If questions or concerns contact your physician Or seek help at emergency department. Care Plan Patient Instructions:: 2 weeks Rachana No hospital discharge instructions.No hospital discharge instructions.No hospital discharge instructions.No hospital discharge instruction information available.No hospital discharge instruction information available.No hospital discharge instruction information available.No hospital discharge instruction information available. Chief Complaint and Reason for Visit Chief Complaint Head/Cervical Proble ms Reason for Visit Migraine Nausea and vomiting Additional Source Comments This clinical document has been generated using [employer] software that has been certified by the Office of the National Coordinator for Health Information Technology (ONC 15.99.04.3023.Diam.31.00.0.551667) and the National Committee for Financing Analyst (NCQA, as an eMeasure certified technology). FOR RECORDS PERTAINING TO PATIENTS WHO ARE OR HAVE BEEN ENROLLED IN A CHEMICAL D EPENDENCY/SUBSTANCE ABUSE PROGRAM, SOME INFORMATION MAY BE OMITTED. This clinica l summary was aggregated from multiple sources. Caution should be exercised in using it in the provision of clinical care. This summary normalizes information from multiple sources, and as a consequence, information in this document may ma terially change the coding, format and clinical context of patient data. In missy tion, data may be omitted in some cases. CLINICAL DECISIONS SHOULD BE BASED ON T HE PRIMARY CLINICAL RECORDS. [employer] provides no warranty or guara ntee of the accuracy or completeness of information in this document.The followi ng information is based on time limited clinical information UNRECOGNIZED CONTENT PROVIDED BELOW FOR UNRECOGNIZED SECTION MEDICAL (GENERAL) HISTORY Type Description Date Medical History hypothyroidism Medical History anxiety Medical History chronic back pain Surgical History hysterectomy 2010 Surgical History revision of the mesh slin g 2012 Surgical History cholecystectomy Surgical History tonsilectomy Surgical History L knee tumor removal Hospitalization History surgeries Type Description Date Medical History hypothyroidism Medical History anxiety Medical History chronic back pain Medical History hypercholesterolemia Medical History bronchitis Surgical History hysterectomy 2010 Surgical History revision of the mesh slin g 2012 Surgical History cholecystectomy Surgical History tonsilectomy Surgical History L knee tumor removal Hospitalization History surgeries UNRECOGNIZED CONTENT PROVIDED BELOW FOR UNRECOGNIZED SECTION REASON FOR VISIT Wanting referral, reports already received referral. This is a f/u, reports michael rojas in pain in her back. Did not follow through with pain management d/t mom spencer g in hospice. CBrumbackRNDepression f/u. Eleonora RNRashCough Pt c/o cough, heada benjamin, nausea and wheezing since Thursday [place] MAControlled Med Refill 02/17/18 Depression Pt in for follow up [facility] Follow up Pt in for follow from ER for Migraine DESMOND Duttonontrolled Med Refill 04/14/18lab resultsControlled Med Refill [id number]-RnbWheidegbez med 08/11EMR-MigEMR -MigEMR-[id number] full
--- OUTSIDE RECORDS SUMMARY | 2019-10-01 10:45 | XMS REPORT ---
Author Author Samra BARCENAS Organization [facility] Address [address] [place] [address] Care Team Providers Care Mrp Controller Name Role Phone CEDRICK BARCENAS Unavailable PROBLEMS Type Condition ICD9-CM Code [id number] Code Onset Dates Condition S tatus SNOMED Code Problem custodial 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.891 Active 122109888 Problem Chronic pain syndrome G89.4 Active 416181878 Problem Hypothyroidism, unspecified E03.9 Ac tive 71978547 Problem Depression, unspecified depression type F32.9 Active 39406191 Problem Major depressive disorder, recurrent episode, moderate F33.1 Active 035068294 Problem Generalized anxiety disorder F41.1 A ctive 80559540 Problem Chronic tension-type headache, intractable G44.221 Active 154230693 Problem Major depressive disorder, recurrent, unspecified F33.9 Active 44794099 Problem Anxiety F41.9 Active 26545474 Problem Primary insomnia F51.01 Active 397 2004 Problem Mixed hyperlipidemia E78.2 Active 118022721 Problem Cervical spondylosis with radiculopathy M47.22 Active 529636192 Problem Chronic migraine G43.709 Active 377 94962 Problem Other chronic pain G89.29 Active 8 7573539 Problem Grief F43.21 Active 884625435 ALLERGIES No Information ENCOUNTERS Encounter Location Date Diagnosis [facility] [id number] [place] [address] Jul, [facility] [address] [address] Jul, [facility] [address] [address] Jul, Generalized anxiety disorder F41.1 and M ajor depressive disorder, recurrent episode, moderate F33.1 [place] [address] [place] [address] 06 Jul, 2019 [facility] [id number] [place] [address] 04 Jul, 2019 Cervical spondylosis with radiculopathy M47.22 [facility] [address] [id number] [place] [address] Jun, [facility] [address] [facility] [id number] [address] [place] [address] Jun, Allergic urticaria L50.0 [facility] [address] [id number] [place] [address] 15 Jun, 2019 Cervical spondylosis with radiculopathy M47.22 [place] [id number] [place] [address] 14 Jun, 2019 Hypothyroidism, unspecified E03.9 [place] [id number] [place] [address] 14 Jun, 2019 [facility] [id number] [place] [address] 13 Jun, 2019 Major depressive disorder, recurrent, un specified F33.9 ; Primary insomnia F51.01 and Strain of lumbar region, 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 S39.012A [place] [address] [id number] [place] [address] 06 Jun, 2019 Cervical spondylosis with radiculopathy M47.22 [place] [id number] [place] [address] 02 Jun, 2019 Back strain, subsequent encounter S39.01 [address] [place] [id number] [place] [address] 02 Jun, 2019 [address] [id number] [place] [address] 12 May, 2019 Cervical spondylosis with radiculopathy M47.22 [place] [id number] [place] [address] Apr, [address] [address] [address] Apr, Cervical spondylosis with radiculopathy M47.22 [place] [address] [address] Mar, Cervical spondylosis with radiculopathy M47.22 [place] [address] [address] Jan, Generalized anxiety disorder F41.1 and M lopezor depressive disorder, recurrent, unspecified F33.9 [place] [address] [address] 16 Jan, 2019 Cervical spondylosis with radiculopathy M47.22 [place] [address] [address] Jan, [place] [address] [address] 09 Jan, 2019 Major depressive disorder, recurrent epi sode, moderate F33.1 and Generalized anxiety disorder F41.1 [address] [place] [address] [address] Dec, [address] [address] [address] Dec, Cervical spondylosis with radiculopathy M47.22 [address] [address] [address] Nov, Cervical spondylosis with radiculopathy M47.22 [place] [address] [address] Nov, Hypothyroidism, unspecified E03.9 [place] [address] [address] Nov, Cervical spondylosis with radiculopathy M47.22 [place] [address] [address] Oct, Cervical spondylosis with radiculopathy M47.22 [place] [id number] [place] [address] Oct, Grief F43.21 [address] [place] [address] Oct, [address] [id number] [place] [address] Oct, Major depressive disorder, recurrent epi sode, moderate F33.1 and Chronic tension-type headache, intractable G44.221 [address] [address] [address] Oct, [address] [address] Oct, Breast cancer screening by mammogram Z12 .[address] [address] September, Cervical spondylosis with radiculopathy M47.22 [address] [place] [address] [address] September, Cervical spondylosis with radiculopathy M47.[address] [address] Aug, Chronic pain syndrome G89.4 ; Cervicalgi a M54.2 ; Chronic nonintractable headache, unspecified headache type R51 and Alopecia L65.9 [address] [place] [address] [address] Jul, Cervical spondylosis with radiculopathy M47.22 [place] [address] [place] [address] Jul, [address] [address] Jul, Cervical spondylosis with radiculopathy M47.22 [address] [address] [address] Jul, [place] [address] [address] Jul, Cervical spondylosis with radiculopathy M47.22 [place] [address] [address] Jul, Cervical spondylosis with radiculopathy M47.22 [address] [address] [address] Jul, [place] [address] [address] Jun, Major depressive disorder, recurrent epi sode, moderate F33.1 ; Low back pain M54.5 and Other chronic pain G89.29 [place] [address] [address] Jun, [place] [address] [address] Jun, Bronchitis J40 ; Mixed hyperlipidemia E7 8.2 ; Cervical spondylosis with radiculopathy M47.22 ; custodial 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.891 ; Major depressive disorder, recurrent episode, moderate F33.1 ; Hypothyroidism, unspecified E03.9 ; Low back pain M54.5 ; Other chronic pain G89.29 and Chronic tension-type headache, intractable G44.221 [place] [address] [address] Jun, Cervical spondylosis with radiculopathy M47.22 [place] [address] [address] May, [place] [address] [address] May, Cervical spondylosis with radiculopathy M47.22 [facility] [address] [facility] [id number] [address] [place] [address] May, Acute nasopharyngitis J00 an d Wheezing R06.2 [place] [place] [address] [address] May, [place] [address] [address] Apr, Cervical spondylosis with radiculopathy M47.22 [place] [address] [address] 19 Mar, 2018 Mixed hyperlipidemia E78.2 and Family hi story of stroke Z82.3 [place] [address] [address] 18 Mar, 2018 Cervical spondylosis with radiculopathy M47.22 [place] [address] [address] 17 Mar, 2018 Hypothyroidism, unspecified E03.9 ; Cerv icalgia M54.2 and Chronic migraine G43.709 [place] [address] [address] 15 Mar, 2018 Cervical spondylosis with radiculopathy M47.22 [place] [address] [address] 08 Mar, 2018 Chronic migraine G43.709 ; Cervicalgia M 54.2 and Family history of stroke Z82.3 [place] [address] [address] 14 Jan, 2018 Cervical spondylosis with radiculopathy M47.22 [place] [address] [address] 05 Jan, 2018 Reactive airway disease that is not asth ma R09.89 [facility] [address] [facility] [id number] [address] [place] [address] Dec, Allergic dermatitis due to o ther chemical product L23.5 [place] [address] [address] Dec, Cervical spondylosis with radiculopathy M47.22 and Depression, unspecified depression type F32.9 [place] [address] [address] Oct, [place] [address] [address] Oct, [place] [address] [address] Oct, [place] [address] [address] September, Chronic pain syndrome G89.4 [place] [address] [address] September, Depression, unspecified depression type F32.9 and Cervicalgia M54.2 [place] [address] [address] September, Chronic pain syndrome G89.4 [place] [address] [address] Aug, Red stool R19.5 [place] [place] [address] [address] Aug, Depression, unspecified depression type F32.9 ; Chronic pain syndrome G89.4 ; Chronic tension-type headache, intractable G44.221 ; Red stool R19.5 ; Hypothyroidism, unspecified E03.9 and Mixed hyperlipidemia E78.2 [place] [address] [address] Jul, Major depressive disorder, recurrent epi sode, moderate F33.1 [place] [address] [address] Jul, [place] [address] [address] Jul, Hypothyroidism, unspecified E03.9 [address] [address] [address] Jul, Hypothyroidism, unspecified E03.9 [place] [address] [address] Jul, Mixed hyperlipidemia E78.2 [place] [place] [address] [address] Jul, Mixed hyperlipidemia E78.2 [facility] [address] [facility] [id number] [address] [place] [address] Jul, Bronchitis J40 ; Cough R05 a nd Wheezing R06.2 [facility] [address] [address] Jul, Major depressive disorder, recurrent epi sode, moderate F33.1 and Generalized anxiety disorder F41.1 [facility] [address] [address] Jul, [place] [address] [address] Jul, Major depressive disorder, recurrent epi sode, moderate F33.1 and Generalized anxiety disorder F41.1 [address] [place] [address] [address] Jul, Generalized anxiety disorder F41.1 and M ajor depressive disorder, recurrent episode, moderate F33.1 [place] [address] [address] Jul, Mixed hyperlipidemia E78.2 [place] [address] [address] Jun, Depression, unspecified depression type F32.9 ; Cervicalgia M54.2 ; Trigger point M79.1 ; Hypothyroidism, unspecified E03.9 ; Screening, lipid Z13.220 and Mixed hyperlipidemia E78.2 [place] [address] [address] Jun, [address] [place] [address] [address] May, [place] [address] [address] Apr, Acute bronchitis due to other specified organisms J20.8 and Tobacco abuse counseling Z71.6 [place] [place] [address] [address] Mar, Depression, unspecified depression type F32.9 [facility] [address] [address] Jan, Chronic pain syndrome G89.4 [facility] [address] [address] Nov, Anxiety F41.9 ; Depression, unspecified depression type F32.9 and Chronic pain syndrome G89.4 [facility] [address] [address] Oct, Anxiety F41.9 and Hypothyroidism, unspec ified E03.9 [facility] [address] [facility] [id number] [address] [place] [address] Oct, Left foot pain M79.672 and C ontusion of left foot, 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 S90.32XA [address] [place] [address] [address] Oct, [facility] [address] [address] September, Cervicalgia M54.2 [address] [address] September, [facility] [address] [address] Aug, Cervicalgia M54.2 [address] [place] [address] Aug, Cervicalgia M54.2 and Left arm numbness R20.0 [facility] [address] [address] Aug, [place] [address] [address] Aug, [facility] [address] [address] Jul, [facility] [address] [address] Jul, [facility] [address] [address] Jul, [facility] [address] [address] Jul, Acute midline low back pain without scia zak M54.5 [facility] [address] [address] Jun, Acute midline low back pain without scia zak M54.5 [facility] [address] [address] Jun, Chronic pain syndrome G89.4 and Muscle s pasm M62.838 [facility] [address] [address] Jun, [facility] [address] [address] Jun, Acute midline low back pain without scia zak M54.5 [facility] [address] [address] Jun, [facility] [address] [address] May, [place] [place] [address] [address] May, Hypothyroidism, unspecified E03.9 ; Burial Vault Setter radha pain syndrome G89.4 ; Hyperglycemia R73.9 ; Encounter for immunization Z23 and Mixed hyperlipidemia E78.2 [facility] [address] [address] Apr, Fatigue 780.79 [facility] [address] [address] Apr, Chronic pain syndrome G89.4 [facility] [address] [address] Mar, [facility] [address] [address] Mar, Chronic pain syndrome G89.4 [facility] [address] [address] Jan, [facility] [address] [address] Dec, [address] [place] [address] [address] Dec, Chronic pain syndrome G89.4 [facility] [address] [address] Dec, Trigger point M79.2 [address] [place] [address] [address] Nov, Chronic pain syndrome G89.4 [address] [place] [address] [address] Oct, Chronic pain syndrome G89.4 [address] [place] [address] [address] Oct, Irritant contact dermatitis due to deter gent L24.0 [address] [place] [address] [address] September, Hypothyroidism, unspecified E03.9 and De pression, unspecified depression type F32.9 [address] [place] [address] [address] September, Chronic pain syndrome G89.4 [address] [place] [address] [address] Aug, [address] [place] [address] [address] Aug, Trigger point M79.2 [address] [place] [address] [address] Jul, Chronic pain syndrome G89.4 and Long mike m 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.891 [address] [place] [address] [address] Jul, Chronic pain syndrome G89.[address] m 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.891 [facility] [id number] [place] [address] Jul, [facility] [id number] [place] [address] Jul, [facility] [id number] [place] [address] Jun, [facility] [id number] [place] [address] May, [facility] [id number] [place] [address] May, [facility] [id number] [place] [address] May, [facility] [id number] [place] [address] May, Pneumonia, organism unspecified, unspeci fied laterality, unspecified part of lung J18.9 [facility] [id number] [place] [address] May, Pneumonia, organism unspecified, unspeci fied laterality, unspecified part of lung J18.9 [facility] [id number] [place] [address] Apr, [facility] [id number] [place] [address] Apr, [facility] [id number] [place] [address] Apr, [facility] [id number] [place] [address] Apr, [facility] [id number] [place] [address] Apr, [facility] [id number] [place] [address] Apr, Epigastric pain R10.13 [facility] [id number] [place] [address] Mar, Tinea pedis B35.3 and Contact dermatitis and eczema due to detergents L24.0 [address] [place] [id number] [place] [address] Mar, [facility] [address] [address] Jan, [address] [place] [address] [address] Jan, [address] [place] [address] [address] Jan, [address] [place] [address] [address] Dec, [address] [place] [address] [address] Nov, [address] [address] [address] Nov, Fatigue 780.79 [address] [place] [address] [address] Nov, [address] [address] [address] Nov, Unspecified myalgia and myositis 729.[address] [address] Nov, Hypercalcemia 275.42 [address] [address] [address] Nov, Fatigue 780.79 ; Bradycardia 427.89 ; Ch ronic pain 338.29 and Family history of diabetes mellitus V18.0 [place] [address] [address] Nov, Fatigue 780.79 ; Chronic pain 338.29 ; F amily history of diabetes mellitus V18.0 ; Bradycardia 427.89 ; Hypothyroid 244.9 and Anxiety [address] [place] [address] Oct, [facility] [address] [id number] [place] [address] September, [facility] [address] [id number] [place] [address] Aug, [facility] [address] [id number] [place] [address] Aug, [facility] [address] [id number] [place] [address] Aug, [facility] [address] [id number] [place] [address] Jul, [facility] [address] [id number] [place] [address] Jul, [facility] [address] [id number] [place] [address] Jul, [facility] [address] [id number] [place] [address] Jul, [facility] [address] [id number] [place] [address] Jun, [facility] [address] [id number] [place] [address] Jun, [facility] [address] [id number] [place] [address] Jun, [facility] [address] [id number] [place] [address] Jun, [facility] [address] [id number] [place] [address] Jun, [facility] [id number] [place] [address] Jun, [facility] [address] [id number] [place] [address] May, [facility] [id number] [place] [address] May, [facility] [address] [id number] [place] [address] May, [facility] [address] [id number] [place] [address] May, [facility] [address] [id number] [place] [address] May, [facility] [address] [id number] [place] [address] May, [facility] [address] [id number] [place] [address] May, [facility] [address] [id number] [place] [address] May, [facility] [address] [id number] [place] [address] May, [facility] [address] [id number] [place] [address] May, [facility] [address] [id number] [place] [address] Apr, [facility] [address] [id number] [place] [address] Apr, [facility] [address] [id number] [place] [address] Apr, [facility] [address] [id number] [place] [address] Apr, [facility] [address] [id number] [place] [address] Apr, [facility] [address] [id number] [place] [address] Apr, [facility] [address] [id number] [place] [address] Apr, [facility] [address] [id number] [place] [address] Apr, [facility] [address] [id number] [place] [address] 17 Apr, 2014 [facility] [address] [id number] [place] [address] 17 Apr, 2014 [facility] [address] [id number] [place] [address] 13 Apr, 2014 [facility] [address] [id number] [place] [address] 13 Apr, 2014 [facility] [address] [id number] [place] [address] 11 Apr, 2014 [facility] [address] [id number] [place] [address] 10 Apr, 2014 [facility] [address] [id number] [place] [address] 10 Apr, 2014 [facility] [address] [id number] [place] [address] 16 Mar, 2014 [facility] [address] [id number] [place] [address] 16 Mar, 2014 [facility] [address] [id number] [place] [address] 16 Mar, 2014 [facility] [address] [id number] [place] [address] 16 Mar, 2014 [facility] [address] [id number] [place] [address] 19 Jan, 2013 [facility] [address] [id number] [place] [address] 19 Sep, 2013 [facility] [address] [id number] [place] [address] 18 Sep, 2013 [facility] [address] [id number] [place] [address] 18 Sep, 2013 [facility] [address] [id number] [place] [address] 02 Sep, 2013 [facility] [address] [id number] [place] [address] 02 Sep, 2013 [facility] [address] [id number] [facility] [address] Dec, [facility] [address] [id number] [place] [address] Dec, [facility] [address] [facility] [id number] [place] [address] Dec, [facility] [address] [facility] [id number] [place] [address] Dec, [facility] [address] [facility] [id number] [place] [address] Nov, [facility] [address] [facility] [id number] [place] [address] Nov, [facility] [address] [id number] [place] [address] Nov, [facility] [address] [id number] [place] [address] Nov, [facility] [address] [id number] [place] [address] Oct, [facility] [address] [facility] [id number] [place] [address] Oct, [facility] [address] [id number] [place] [address] Oct, [facility] [address] [id number] [place] [address] Oct, [facility] [address] [facility] [id number] [place] [address] Oct, [facility] [address] [facility] [id number] [place] [address] Oct, [facility] [address] [id number] [place] [address] Oct, [facility] [address] [id number] [place] [address] Oct, [facility] [address] [id number] [place] [address] Oct, [facility] [address] [id number] [place] [address] Oct, [facility] [address] [id number] [place] [address] September, [facility] [address] [id number] [place] [address] September, [facility] [address] [id number] [place] [address] September, [facility] [address] [id number] [place] [address] September, [facility] [place] [facility] [address] [id number] [place] [address] September, [facility] [place] [facility] [address] [id number] [place] [address] September, [facility] [place] [facility] [address] [id number] [place] [address] September, [facility] [place] [facility] [address] [id number] [place] [address] September, [facility] [place] [facility] [address] [id number] [place] [address] September, [facility] [place] [facility] [address] [id number] [place] [address] Aug, [facility] [place] [facility] [address] [id number] [place] [address] Aug, [facility] [place] [facility] [address] [id number] [place] [address] Aug, [facility] [place] [facility] [address] [id number] [place] [address] Aug, [facility] [place] [facility] [address] [id number] [place] [address] Aug, [facility] [place] [facility] [address] [id number] [place] [address] Aug, [facility] [place] [facility] [address] [id number] [place] [address] Aug, [facility] [place] [facility] [address] [facility] [id number] [facility] [address] Aug, [facility] [place] [facility] [address] [facility] [id number] [facility] [place] [address] Jul, [facility] [place] [facility] [address] [id number] [facility] [place] [address] Jul, [facility] [place] [facility] [address] [facility] [id number] [place] [address] Jul, [facility] [place] [facility] [address] [facility] [id number] [facility] [address] Jul, [facility] [place] [facility] [address] [facility] [id number] [place] [address] 24 Jul, 2013 [facility] [place] [facility] [address] [id number] [place] [address] Jul, [facility] [place] [facility] [address] [id number] [facility] [place] [address] Jul, [facility] [place] [facility] [address] [id number] [place] [address] 18 Jul, 2013 [facility] [place] [facility] [address] [id number] [place] [address] 18 Jul, 2013 [facility] [place] [facility] [address] [id number] [place] [address] 17 Jul, 2013 [facility] [place] [facility] [address] [id number] [place] [address] 17 Jul, 2013 [facility] [place] [facility] [address] [id number] [place] [address] 13 Jul, 2013 [facility] [place] [facility] [address] [id number] [place] [address] 13 Jul, 2013 [facility] [place] [facility] [address] [id number] [place] [address] 05 Jul, 2013 [facility] [place] [facility] [address] [id number] [place] [address] 05 Jul, 2013 [facility] [place] [facility] [address] [id number] [place] [address] 10 Jul, 2013 [facility] [place] [facility] [address] [id number] [place] [address] Jul, [facility] [place] [facility] [address] [id number] [place] [address] Jul, [facility] [place] [facility] [address] [id number] [place] [address] Jul, [facility] [place] [facility] [address] [id number] [place] [address] Jun, [facility] [place] [facility] [address] [id number] [place] [address] Jun, [facility] [place] [facility] [address] [id number] [place] [address] May, [facility] [place] [facility] [address] [id number] [place] [address] May, [facility] [place] [facility] [address] [id number] [place] [address] Apr, [facility] [place] [facility] [address] [id number] [place] [address] Apr, [facility] [place] [facility] [address] [id number] [place] [address] Apr, [facility] [place] [facility] [address] [id number] [place] [address] Apr, [facility] [place] [facility] [address] [id number] [place] [address] Apr, [facility] [place] [facility] [address] [id number] [place] [address] Apr, [facility] [place] [facility] [id number] [place] [address] Mar, [facility] [place] [facility] [address] [id number] [place] [address] Mar, [facility] [place] [facility] [address] [id number] [place] [address] Mar, [facility] [place] [facility] [address] [facility] [id number] [place] [address] Mar, [facility] [place] [facility] [address] [facility] [id number] [place] [address] Jan, [facility] [place] [facility] [address] [id number] [place] [address] Jan, [facility] [place] [facility] [address] [id number] [place] [address] Jan, [facility] [place] [facility] [address] [facility] [id number] [place] [address] Dec, [facility] [place] [facility] [address] [id number] [place] [address] Dec, [facility] [place] [facility] [address] [id number] [place] [address] Dec, [facility] [place] [facility] [address] [id number] [place] [address] Dec, [facility] [place] [facility] [address] [id number] [place] [address] Nov, [facility] [place] [facility] [address] [id number] [place] [address] Nov, [facility] [place] [facility] [address] [id number] [place] [address] Nov, [facility] [place] [facility] [address] [id number] [place] [address] Oct, [facility] [place] [facility] [address] [id number] [place] [address] Oct, [facility] [place] [facility] [address] [id number] [place] [address] Oct, [facility] [place] [facility] [address] [id number] [place] [address] Oct, [facility] [place] [facility] [address] [id number] [place] [address] Oct, [facility] [place] [facility] [address] [id number] [facility] [address] Oct, [facility] [place] [facility] [address] [facility] [id number] [facility] [address] September, [facility] [place] [facility] [address] [facility] [id number] [place] [address] Jul, [facility] [place] [facility] [address] [id number] [place] [address] Jul, [facility] [place] [facility] [address] [id number] [place] [address] Jul, [facility] [place] [facility] [address] [id number] [place] [address] Jul, [facility] [place] [facility] [address] [id number] [place] [address] Jul, [facility] [place] [facility] [address] [id number] [place] [address] Jul, [facility] [place] [facility] [address] [id number] [place] [address] Jun, [facility] [place] [facility] [address] [id number] [place] [address] Apr, [facility] [place] [facility] [address] [id number] [place] [address] Apr, [facility] [place] [facility] [address] [id number] [place] [address] Jan, [facility] [place] [facility] [address] [id number] [place] [address] Dec, [facility] [place] [facility] [address] [id number] [place] [address] Nov, [facility] [place] [facility] [address] [id number] [place] [address] Oct, [facility] [place] [facility] [address] [id number] [place] [address] September, [facility] [place] [facility] [address] [id number] [place] [address] September, [facility] [place] [facility] [address] [id number] [place] [address] Jul, [facility] [place] [facility] [address] [id number] [place] [address] Jul, [facility] [place] [facility] [address] [id number] [place] [address] 28 Jul, 2011 [facility] [place] [address] [id number] [place] [address] Jul, [facility] [place] [facility] [address] [id number] [place] [address] Jul, [facility] [place] [facility] [address] [id number] [place] [address] 17 Jul, 2011 [facility] [place] [facility] [address] [id number] [place] [address] 13 Jul, 2011 [facility] [address] [id number] [place] [address] Jul, [facility] [place] [facility] [address] [id number] [place] [address] 08 Jul, 2011 [facility] [place] [facility] [address] [id number] [place] [address] 07 Jul, 2011 [facility] [place] [facility] [address] [id number] [place] [address] Jun, [facility] [place] [place] [facility] [address] [id number] [place] [address] May, [facility] [place] [facility] [address] [id number] [place] [address] May, [facility] [place] [facility] [address] [id number] [place] [address] May, [facility] [place] [facility] [address] [id number] [place] [address] Apr, [facility] [place] [facility] [address] [id number] [place] [address] Apr, [facility] [place] [facility] [address] [id number] [place] [address] Mar, [facility] [address] [id number] [place] [address] Mar, [facility] [address] [id number] [place] [address] Mar, [facility] [address] [id number] [place] [address] Mar, [facility] [address] [id number] [place] [address] Mar, [facility] [address] [id number] [place] [address] September, [facility] [address] [id number] [place] [address] Mar, [facility] [address] [id number] [place] [address] Dec, [facility] [address] [id number] [place] [address] May, [facility] [address] [id number] [place] [address] May, IMMUNIZATIONS No Known Immunizations SOCIAL HISTORY Never Assessed REASON FOR VISIT PLAN OF CARE VITAL SIGNS MEDICATIONS Unknown Medications RESULTS No Results PROCEDURES No Known procedures INSTRUCTIONS MEDICATIONS ADMINISTERED No Known Medications MEDICAL (GENERAL) HISTORY Type Description Date Medical History hypothyroidism Medical History anxiety Medical History chronic back pain Medical History hypercholesterolemia Medical History bronchitis Medical History no hx of seizures Surgical History hysterectomy 2010 Surgical History revision of the mesh sling 2011 Surgical History cholecystectomy Surgical History tonsilectomy Surgical History L knee tumor removal Hospitalization History surgeries
--- OUTSIDE RECORDS SUMMARY | 2019-10-01 10:46 | XMS REPORT ---
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 Name Role Phone CEDRICK BARCENAS Unavailable PROBLEMS Type Condition ICD9-CM Code HRC25-NA Code Onset Dates Condition S tatus SNOMED Code Problem retirement 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.891 Active 181325625 Problem Chronic pain syndrome G89.4 Active 801832691 Problem Hypothyroidism, unspecified E03.9 Ac tive 55131263 Problem Depression, unspecified depression type F32.9 Active 41442403 Problem Major depressive disorder, recurrent episode, moderate F33.1 Active 117457638 Problem Generalized anxiety disorder F41.1 A ctive 53675434 Problem Chronic tension-type headache, intractable G44.221 Active 404030328 Problem Major depressive disorder, recurrent, unspecified F33.9 Active 58369892 Problem Anxiety F41.9 Active 73189863 Problem Primary insomnia F51.01 Active 397 2004 Problem Mixed hyperlipidemia E78.2 Active 245353323 Problem Cervical spondylosis with radiculopathy M47.22 Active 533160284 Problem Chronic migraine G43.709 Active 377 91495 Problem Other chronic pain G89.29 Active 8 7777025 Problem Grief F43.21 Active [id number] ALLERGIES No Information ENCOUNTERS Encounter Location Date Diagnosis [facility] [id number] [place] [address] Jul, [facility] [address] [address] Jul, [facility] [id number] [place] [address] Jul, [facility] [address] [id number] [place] [address] Jul, Cervical spondylosis with radiculopathy M47.22 [facility] [id number] [place] [address] Jun, [facility] [address] [facility] [id number] [address] [place] [address] Jun, Allergic urticaria L50.0 [facility] [address] [address] 15 Jun, 2019 Cervical spondylosis with radiculopathy M47.22 [facility] [address] [address] 14 Jun, 2019 Hypothyroidism, unspecified E03.9 [place] [address] [address] 14 Jun, 2019 [place] [address] [address] 13 Jun, 2019 Major depressive disorder, recurrent, un specified F33.9 ; Primary insomnia F51.01 and Strain of lumbar region, 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 S39.012A [place] [address] [address] 06 Jun, 2019 Cervical spondylosis with radiculopathy M47.22 [place] [address] [address] 02 Jun, 2019 Back strain, subsequent encounter S39.01 2D [place] [address] [address] 02 Jun, 2019 [place] [address] [address] May, Cervical spondylosis with radiculopathy M47.22 [place] [address] [address] Apr, [place] [address] [address] 12 Apr, 2019 Cervical spondylosis with radiculopathy M47.22 [place] [address] [address] Mar, Cervical spondylosis with radiculopathy M47.22 [place] [address] [address] Jan, Generalized anxiety disorder F41.1 and M lopezor depressive disorder, recurrent, unspecified F33.9 [place] [address] [address] 16 Jan, 2019 Cervical spondylosis with radiculopathy M47.22 [place] [address] [address] Jan, [place] [address] [address] Jan, Major depressive disorder, recurrent epi sode, moderate F33.1 and Generalized anxiety disorder F41.1 [place] [address] [address] Dec, [place] [address] [address] Dec, Cervical spondylosis with radiculopathy M47.22 [place] [address] [address] Nov, Cervical spondylosis with radiculopathy M47.22 [place] [address] [address] Nov, Hypothyroidism, unspecified E03.9 [place] [address] [address] Nov, Cervical spondylosis with radiculopathy M47.22 [place] [address] [address] Oct, Cervical spondylosis with radiculopathy M47.22 [place] [address] [address] Oct, Grief F43.21 [address] [place] [address] Oct, [place] [address] [address] Oct, Major depressive disorder, recurrent epi sode, moderate F33.1 and Chronic tension-type headache, intractable G44.221 [place] [address] [address] Oct, [place] [address] [address] Oct, Breast cancer screening by mammogram Z12 .31 [place] [address] [address] September, Cervical spondylosis with radiculopathy M47.22 [place] [address] [address] September, Cervical spondylosis with radiculopathy M47.22 [place] [address] [address] Aug, Chronic pain syndrome G89.4 ; Cervicalgi a M54.2 ; Chronic nonintractable headache, unspecified headache type R51 and Alopecia L65.9 [place] [address] [address] Jul, Cervical spondylosis with radiculopathy M47.22 [place] [address] [address] Jul, [address] [address] Jul, Cervical spondylosis with radiculopathy M47.22 [place] [address] [address] Jul, [address] [address] Jul, Cervical spondylosis with radiculopathy M47.22 [place] [address] [address] Jul, Cervical spondylosis with radiculopathy M47.22 [place] [address] [address] Jul, [place] [address] [address] Jun, Major depressive disorder, recurrent epi sode, moderate F33.1 ; Low back pain M54.5 and Other chronic pain G89.29 [place] [address] [address] Jun, [place] [address] [address] Jun, Bronchitis J40 ; Mixed hyperlipidemia E7 8.2 ; Cervical spondylosis with radiculopathy M47.22 ; 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 ; Major depressive disorder, recurrent episode, moderate F33.1 ; Hypothyroidism, unspecified E03.9 ; Low back pain M54.5 ; Other chronic pain G89.29 and Chronic tension-type headache, intractable G44.221 [place] [address] [address] Jun, Cervical spondylosis with radiculopathy M47.22 [place] [address] [address] May, [place] [address] [address] May, Cervical spondylosis with radiculopathy M47.22 [facility] [address] [facility] [id number] [address] [place] [address] May, Acute nasopharyngitis J00 an d Wheezing R06.2 [place] [address] [address] May, [place] [address] [address] Apr, Cervical spondylosis with radiculopathy M47.22 [place] [address] [address] 19 Mar, 2018 Mixed hyperlipidemia E78.2 and Family hi story of stroke Z82.3 [place] [address] [address] 18 Mar, 2018 Cervical spondylosis with radiculopathy M47.22 [place] [address] [address] 17 Mar, 2018 Hypothyroidism, unspecified E03.9 ; Cerv icalgia M54.2 and Chronic migraine G43.709 [place] [address] [address] 15 Mar, 2018 Cervical spondylosis with radiculopathy M47.22 [place] [address] [address] 08 Mar, 2018 Chronic migraine G43.709 ; Cervicalgia M 54.2 and Family history of stroke Z82.3 [place] [address] [address] 14 Jan, 2018 Cervical spondylosis with radiculopathy M47.22 [place] [address] [address] 05 Jan, 2018 Reactive airway disease that is not asth ma R09.89 [facility] [address] [facility] [id number] [address] [place] [address] Dec, Allergic dermatitis due to o ther chemical product L23.5 [place] [address] [address] Dec, Cervical spondylosis with radiculopathy M47.22 and Depression, unspecified depression type F32.9 [place] [address] [address] 14 Oct, 2017 [place] [address] [address] 08 Oct, 2017 [place] [address] [address] Oct, [place] [address] [address] September, Chronic pain syndrome G89.4 [facility] [address] [address] September, Depression, unspecified depression type F32.9 and Cervicalgia M54.2 [place] [address] [address] September, Chronic pain syndrome G89.4 [place] [address] [address] Aug, Red stool R19.5 [place] [address] [address] Aug, Depression, unspecified depression type F32.9 ; Chronic pain syndrome G89.4 ; Chronic tension-type headache, intractable G44.221 ; Red stool R19.5 ; Hypothyroidism, unspecified E03.9 and Mixed hyperlipidemia E78.2 [place] [address] [address] Jul, Major depressive disorder, recurrent epi sode, moderate F33.1 [place] [address] [address] Jul, [place] [address] [address] Jul, Hypothyroidism, unspecified E03.9 [place] [address] [address] Jul, Hypothyroidism, unspecified E03.9 [place] [address] [address] Jul, Mixed hyperlipidemia E78.2 [place] [address] [address] Jul, Mixed hyperlipidemia E78.2 [facility] [address] [facility] [id number] [address] [place] [address] Jul, Bronchitis J40 ; Cough R05 a nd Wheezing R06.2 [place] [address] [address] Jul, Major depressive disorder, recurrent epi sode, moderate F33.1 and Generalized anxiety disorder F41.1 [place] [address] [address] Jul, [place] [address] [address] Jul, Major depressive disorder, recurrent epi sode, moderate F33.1 and Generalized anxiety disorder F41.1 [place] [address] [address] Jul, Generalized anxiety disorder F41.1 and M lopezor depressive disorder, recurrent episode, moderate F33.1 [place] [address] [address] Jul, Mixed hyperlipidemia E78.2 [place] [address] [address] Jun, Depression, unspecified depression type F32.9 ; Cervicalgia M54.2 ; Trigger point M79.1 ; Hypothyroidism, unspecified E03.9 ; Screening, lipid Z13.220 and Mixed hyperlipidemia E78.2 [place] [address] [address] Jun, [place] [address] [address] May, [place] [address] [address] Apr, Acute bronchitis due to other specified organisms J20.8 and Tobacco abuse counseling Z71.6 [place] [address] [address] Mar, Depression, unspecified depression type F32.9 [place] [address] [address] Jan, Chronic pain syndrome G89.4 [facility] [address] [address] Nov, Anxiety F41.9 ; Depression, unspecified depression type F32.9 and Chronic pain syndrome G89.4 [facility] [address] [address] Oct, Anxiety F41.9 and Hypothyroidism, unspec ified E03.9 [facility] [address] [facility] [id number] [address] [place] [address] Oct, Left foot pain M79.672 and C ontusion of left foot, 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 S90.32XA [facility] [address] [address] Oct, [facility] [address] [address] September, Cervicalgia M54.2 [facility] [address] [address] September, [facility] [address] [address] Aug, Cervicalgia M54.2 [place] [address] [address] Aug, Cervicalgia M54.2 and Left arm numbness R20.0 [facility] [address] [address] Aug, [facility] [address] [address] Aug, [facility] [address] [address] Jul, [facility] [address] [address] Jul, [facility] [address] [address] Jul, [facility] [address] [address] Jul, Acute midline low back pain without scia zak M54.5 [facility] [address] [address] Jun, Acute midline low back pain without scia zak M54.5 [place] [address] [address] Jun, Chronic pain syndrome G89.4 and Muscle s pasm M62.838 [address] [address] [address] Jun, [place] [address] [address] Jun, Acute midline low back pain without scia zak M54.5 [address] [address] [address] Jun, [place] [address] [address] May, [place] [address] [address] May, Hypothyroidism, unspecified E03.9 ; 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 ; Hyperglycemia R73.9 ; Encounter for immunization Z23 and Mixed hyperlipidemia E78.2 [place] [address] [address] Apr, Fatigue 780.79 [place] [address] [address] Apr, Chronic pain syndrome G89.4 [place] [address] [address] Mar, [place] [address] [address] Mar, Chronic pain syndrome G89.4 [place] [address] [address] 16 Jan, 2016 [place] [address] [address] Dec, [facility] [address] [address] Dec, Chronic pain syndrome G89.4 [facility] [address] [address] Dec, Trigger point M79.2 [facility] [address] [address] Nov, Chronic pain syndrome G89.4 [place] [address] [address] Oct, Chronic pain syndrome G89.4 [place] [address] [address] Oct, Irritant contact dermatitis due to deter gent L24.0 [place] [address] [address] September, Hypothyroidism, unspecified E03.9 and De pression, unspecified depression type F32.9 [place] [address] [address] September, Chronic pain syndrome G89.4 [place] [address] [address] Aug, [place] [address] [address] Aug, Trigger point M79.2 [place] [address] [address] Jul, Chronic pain syndrome G89.4 and 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 [place] [address] [address] Jul, Chronic pain syndrome G89.[address] m 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.891 [facility] [address] [address] Jul, [facility] [id number] [place] [address] Jul, [facility] [id number] [place] [address] Jun, [facility] [id number] [place] [address] May, [facility] [id number] [place] [address] May, [facility] [id number] [place] [address] May, [facility] [id number] [place] [address] May, Pneumonia, organism unspecified, unspeci fied laterality, unspecified part of lung J18.9 [facility] [id number] [place] [address] May, Pneumonia, organism unspecified, unspeci fied laterality, unspecified part of lung J18.9 [facility] [id number] [place] [address] Apr, [facility] [id number] [place] [address] Apr, [facility] [id number] [place] [address] Apr, [facility] [id number] [place] [address] Apr, [facility] [id number] [place] [address] Apr, [facility] [id number] [place] [address] Apr, Epigastric pain R10.13 [facility] [id number] [place] [address] Mar, Tinea pedis B35.3 and Contact dermatitis and eczema due to detergents L24.0 [facility] [id number] [place] [address] Mar, [facility] [address] [address] Jan, [facility] [address] [address] Jan, [facility] [address] [address] Jan, [facility] [address] [address] Dec, [facility] [address] [address] Nov, [facility] [address] [address] Nov, Fatigue 780.79 [facility] [address] [address] Nov, [facility] [address] [address] Nov, Unspecified myalgia and myositis 729.1 [facility] [address] [address] Nov, Hypercalcemia 275.42 [facility] [address] [address] Nov, Fatigue 780.79 ; Bradycardia 427.89 ; Ch ronic pain 338.29 and Family history of diabetes mellitus V18.0 [facility] [address] [address] Nov, Fatigue 780.79 ; Chronic pain 338.29 ; F amily history of diabetes mellitus V18.0 ; Bradycardia 427.89 ; Hypothyroid 244.9 and Anxiety 300.00 [facility] [id number] [place] [address] Oct, [facility] [address] [address] September, [facility] [address] [id number] [place] [address] 30 Aug, 2014 [facility] [address] [id number] [place] [address] 14 Aug, 2014 [facility] [address] [id number] [place] [address] Aug, [facility] [address] [id number] [place] [address] Jul, [facility] [address] [id number] [place] [address] Jul, [facility] [address] [id number] [place] [address] Jul, [facility] [address] [id number] [place] [address] Jul, [facility] [address] [id number] [place] [address] Jun, [facility] [address] [id number] [place] [address] Jun, [facility] [address] [id number] [place] [address] Jun, [facility] [address] [id number] [place] [address] Jun, [facility] [address] [id number] [place] [address] Jun, [facility] [address] [id number] [place] [address] Jun, [facility] [address] [id number] [place] [address] May, [facility] [address] [id number] [place] [address] May, [facility] [address] [id number] [place] [address] May, [facility] [address] [id number] [place] [address] May, [facility] [address] [facility] [id number] [place] [address] May, [facility] [address] [facility] [id number] [place] [address] May, [facility] [address] [id number] [place] [address] May, [facility] [address] [id number] [place] [address] May, [facility] [address] [facility] [id number] [place] [address] May, [facility] [address] [id number] [place] [address] May, [facility] [address] [id number] [place] [address] Apr, [facility] [address] [id number] [place] [address] Apr, [facility] [address] [id number] [place] [address] Apr, [facility] [address] [id number] [place] [address] Apr, [facility] [address] [id number] [place] [address] Apr, [facility] [address] [id number] [place] [address] Apr, [facility] [address] [id number] [place] [address] Apr, [facility] [address] [id number] [place] [address] Apr, [facility] [address] [id number] [place] [address] Apr, [facility] [address] [id number] [place] [address] Apr, [facility] [address] [id number] [place] [address] 13 Apr, 2014 [facility] [address] [id number] [place] [address] 13 Apr, 2014 [facility] [address] [id number] [place] [address] 11 Apr, 2014 [facility] [address] [id number] [place] [address] 10 Apr, 2014 [facility] [address] [id number] [place] [address] 10 Apr, 2014 [facility] [address] [id number] [place] [address] 16 Mar, 2014 [facility] [address] [id number] [place] [address] 16 Mar, 2014 [facility] [address] [id number] [place] [address] 16 Mar, 2014 [facility] [address] [id number] [place] [address] 16 Mar, 2014 [facility] [address] [id number] [place] [address] 19 Jan, 2014 [facility] [address] [id number] [place] [address] 19 Jan, 2014 [facility] [address] [id number] [place] [address] 18 Jan, 2014 [facility] [address] [id number] [place] [address] 18 Jan, 2014 [facility] [address] [id number] [place] [address] 02 Jan, 2013 [facility] [address] [id number] [place] [address] Jan, [facility] [address] [id number] [place] [address] Dec, [facility] [address] [id number] [place] [address] Dec, [facility] [address] [id number] [place] [address] Dec, [facility] [address] [facility] [id number] [place] [address] Dec, [facility] [address] [facility] [id number] [place] [address] Nov, [facility] [address] [id number] [place] [address] Nov, [facility] [address] [facility] [id number] [place] [address] Nov, [facility] [address] [id number] [place] [address] Nov, [facility] [address] [id number] [place] [address] Oct, [facility] [address] [id number] [place] [address] Oct, [facility] [address] [id number] [place] [address] Oct, [facility] [address] [id number] [place] [address] Oct, [facility] [address] [id number] [place] [address] Oct, [facility] [address] [id number] [place] [address] Oct, [facility] [address] [id number] [place] [address] Oct, [facility] [address] [facility] [id number] [place] [address] Oct, [facility] [address] [id number] [place] [address] Oct, [facility] [address] [id number] [place] [address] Oct, [facility] [address] [id number] [place] [address] September, [facility] [address] [id number] [place] [address] September, [facility] [address] [id number] [facility] [address] September, [facility] [address] [id number] [place] [address] September, [facility] [address] [id number] [place] [address] September, [facility] [address] [id number] [facility] [place] [address] September, [facility] [address] [id number] [place] [address] September, [facility] [address] [id number] [place] [address] September, [facility] [place] [facility] [address] [id number] [place] [address] September, [facility] [place] [facility] [address] [id number] [place] [address] Aug, [facility] [place] [facility] [address] [id number] [place] [address] Aug, [facility] [place] [facility] [address] [id number] [place] [address] Aug, [facility] [place] [facility] [address] [id number] [place] [address] Aug, [facility] [place] [facility] [address] [id number] [place] [address] Aug, [facility] [place] [facility] [address] [id number] [place] [address] Aug, [facility] [place] [facility] [address] [id number] [place] [address] Aug, [facility] [place] [facility] [address] [id number] [place] [address] Aug, [facility] [place] [facility] [address] [id number] [place] [address] Jul, [facility] [place] [facility] [address] [facility] [id number] [place] [address] Jul, [facility] [place] [facility] [address] [id number] [place] [address] Jul, [facility] [place] [facility] [address] [id number] [place] [address] Jul, [facility] [place] [facility] [address] [id number] [place] [address] Jul, [facility] [place] [facility] [address] [facility] [id number] [place] [address] Jul, [facility] [place] [facility] [address] [id number] [place] [address] Jul, [facility] [place] [facility] [address] [id number] [place] [address] 18 Jul, 2013 [facility] [place] [facility] [address] [id number] [place] [address] 18 Jul, 2013 [facility] [place] [facility] [address] [id number] [place] [address] 17 Jul, 2013 [facility] [place] [facility] [address] [id number] [place] [address] 17 Jul, 2013 [facility] [place] [facility] [address] [id number] [place] [address] 13 Jul, 2013 [facility] [place] [facility] [address] [id number] [place] [address] 13 Jul, 2013 [facility] [place] [facility] [address] [id number] [place] [address] 05 Jul, 2013 [facility] [place] [facility] [address] [id number] [place] [address] 05 Jul, 2013 [facility] [place] [facility] [address] [id number] [place] [address] 10 Jul, 2013 [facility] [place] [facility] [address] [id number] [place] [address] Jul, [facility] [place] [facility] [address] [id number] [place] [address] Jul, [facility] [place] [facility] [address] [id number] [place] [address] Jul, [facility] [place] [facility] [address] [id number] [place] [address] Jun, [facility] [place] [facility] [address] [id number] [place] [address] Jun, [facility] [place] [facility] [address] [id number] [place] [address] May, [facility] [place] [facility] [address] [id number] [place] [address] May, [facility] [place] [facility] [address] [id number] [place] [address] Apr, [facility] [place] [facility] [address] [id number] [place] [address] Apr, [facility] [place] [facility] [address] [id number] [place] [address] Apr, [facility] [place] [facility] [address] [id number] [place] [address] Apr, [facility] [place] [facility] [address] [id number] [place] [address] Apr, [facility] [place] [facility] [address] [id number] [place] [address] Apr, [facility] [place] [facility] [address] [id number] [place] [address] Mar, [facility] [place] [facility] [address] [id number] [place] [address] Mar, [facility] [place] [facility] [address] [id number] [place] [address] Mar, [facility] [place] [facility] [address] [id number] [place] [address] Mar, [facility] [place] [facility] [address] [id number] [place] [address] Jan, [facility] [place] [facility] [address] [facility] [id number] [facility] [place] [address] Jan, [facility] [place] [facility] [address] [facility] [id number] [facility] [address] Jan, [facility] [place] [facility] [address] [id number] [facility] [place] [address] Dec, [facility] [place] [facility] [address] [facility] [id number] [place] [address] Dec, [facility] [place] [facility] [address] [facility] [id number] [place] [address] Dec, [facility] [place] [facility] [address] [id number] [facility] [place] [address] Dec, [facility] [place] [facility] [address] [id number] [facility] [address] Nov, [facility] [place] [facility] [address] [id number] [place] [address] Nov, [facility] [place] [facility] [address] [facility] [id number] [facility] [address] Nov, [facility] [place] [facility] [address] [id number] [place] [address] Oct, [facility] [place] [facility] [address] [id number] [place] [address] Oct, [facility] [place] [facility] [address] [id number] [place] [address] Oct, [facility] [place] [facility] [address] [facility] [id number] [facility] [place] [address] Oct, [facility] [place] [facility] [address] [id number] [place] [address] Oct, [facility] [place] [facility] [address] [facility] [id number] [place] [address] Oct, [facility] [place] [facility] [address] [id number] [place] [address] September, [facility] [place] [facility] [address] [id number] [place] [address] Jul, [facility] [place] [facility] [address] [facility] [id number] [place] [address] Jul, [facility] [place] [facility] [address] [id number] [place] [address] Jul, [facility] [place] [facility] [address] [id number] [place] [address] Jul, [facility] [place] [facility] [address] [id number] [place] [address] Jul, [facility] [place] [facility] [address] [id number] [place] [address] Jul, [facility] [place] [facility] [address] [id number] [place] [address] Jun, [facility] [place] [facility] [address] [id number] [place] [address] Apr, [facility] [place] [facility] [address] [id number] [place] [address] Apr, [facility] [place] [facility] [address] [id number] [place] [address] Jan, [facility] [place] [facility] [address] [id number] [place] [address] Dec, [facility] [place] [facility] [address] [id number] [place] [address] Nov, [facility] [place] [facility] [address] [id number] [place] [address] Oct, [facility] [place] [facility] [address] [id number] [place] [address] September, [facility] [place] [facility] [address] [id number] [place] [address] September, [facility] [place] [facility] [address] [id number] [place] [address] Jul, [facility] [place] [facility] [address] [id number] [place] [address] Jul, [facility] [address] [id number] [place] [address] 28 Jul, 2011 [facility] [place] [facility] [address] [id number] [place] [address] Jul, [facility] [place] [facility] [address] [id number] [place] [address] Jul, [facility] [place] [facility] [address] [id number] [place] [address] 17 Jul, 2011 [facility] [place] [facility] [address] [id number] [place] [address] 13 Jul, 2011 [facility] [place] [facility] [address] [id number] [place] [address] Jul, [facility] [place] [facility] [address] [id number] [place] [address] 08 Jul, 2011 [facility] [place] [facility] [address] [id number] [place] [address] Jul, [facility] [place] [facility] [address] [id number] [place] [address] Jun, [facility] [place] [facility] [address] [id number] [place] [address] May, [facility] [place] [facility] [address] [id number] [place] [address] May, [facility] [place] [facility] [address] [id number] [place] [address] 05 May, 2011 [facility] [place] [facility] [address] [id number] [place] [address] Apr, [facility] [place] [facility] [address] [id number] [place] [address] Apr, [facility] [place] [facility] [address] [id number] [place] [address] 20 Mar, 2011 [facility] [place] [facility] [address] [id number] [place] [address] Mar, [facility] [place] [facility] [address] [id number] [place] [address] Mar, [facility] [address] [id number] [place] [address] Mar, [facility] [address] [id number] [place] [address] Mar, [facility] [address] [id number] [place] [address] September, [facility] [id number] [place] [address] Mar, [facility] [address] [id number] [place] [address] Dec, [facility] [address] [id number] [place] [address] May, [facility] [address] [id number] [place] [address] May, IMMUNIZATIONS No Known Immunizations SOCIAL HISTORY [...]
--- OUTSIDE RECORDS SUMMARY | 2019-10-01 10:46 | XMS REPORT ---
Author Author Samra BARCENAS Organization [facility] Address [address] [place] [address] Care Team Providers Care Liner Replacer Name Role Phone CEDRICK BARCENAS Unavailable PROBLEMS Type Condition ICD9-CM Code OVT56-AB Code Onset Dates Condition S tatus SNOMED Code Problem jail 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.891 Active 354056162 Problem Chronic pain syndrome G89.4 Active 507408013 Problem Hypothyroidism, unspecified E03.9 Ac tive 79150849 Problem Depression, unspecified depression type F32.9 Active 40920492 Problem Major depressive disorder, recurrent episode, moderate F33.1 Active 660079823 Problem Generalized anxiety disorder F41.1 A ctive 61163426 Problem Chronic tension-type headache, intractable G44.221 Active 106023332 Problem Major depressive disorder, recurrent, unspecified F33.9 Active 11808832 Problem Anxiety F41.9 Active 97601927 Problem Primary insomnia F51.01 Active 397 2004 Problem Mixed hyperlipidemia E78.2 Active 002747033 Problem Cervical spondylosis with radiculopathy M47.22 Active 562988247 Problem Chronic migraine G43.709 Active 377 22441 Problem Other chronic pain G89.29 Active 8 7957400 Problem Grief F43.21 Active 710210568 ALLERGIES No Information ENCOUNTERS Encounter Location Date Diagnosis [facility] [id number] [place] [address] Jul, [facility] [address] [address] Jul, [facility] [address] [address] Jul, [facility] [id number] [place] [address] Jul, Cervical spondylosis with radiculopathy M47.22 [facility] [address] [address] Jun, [facility] [address] [facility] [id number] [address] [place] [address] Jun, Allergic urticaria L50.0 [facility] [address] [address] 15 Jun, 2019 Cervical spondylosis with radiculopathy M47.22 [facility] [address] [address] 14 Jun, 2019 Hypothyroidism, unspecified E03.9 [address] [place] [address] [address] 14 Jun, 2019 [place] [address] [address] 13 Jun, 2019 Major depressive disorder, recurrent, un specified F33.9 ; Primary insomnia F51.01 and Strain of lumbar region, 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 S39.012A [place] [address] [address] 06 Jun, 2019 Cervical spondylosis with radiculopathy M47.22 [place] [address] [address] 02 Jun, 2019 Back strain, subsequent encounter S39.01 2D [place] [address] [address] 02 Jun, 2019 [place] [address] [address] May, Cervical spondylosis with radiculopathy M47.22 [place] [address] [address] Apr, [place] [address] [address] 12 Apr, 2019 Cervical spondylosis with radiculopathy M47.22 [place] [address] [address] Mar, Cervical spondylosis with radiculopathy M47.22 [place] [address] [address] Jan, Generalized anxiety disorder F41.1 and M ajor depressive disorder, recurrent, unspecified F33.9 [place] [address] [address] 16 Jan, 2019 Cervical spondylosis with radiculopathy M47.22 [place] [address] [address] Jan, [place] [address] [address] Jan, Major depressive disorder, recurrent epi sode, moderate F33.1 and Generalized anxiety disorder F41.1 [place] [address] [address] Dec, [place] [address] [address] Dec, Cervical spondylosis with radiculopathy M47.22 [place] [address] [address] Nov, Cervical spondylosis with radiculopathy M47.22 [place] [address] [address] Nov, Hypothyroidism, unspecified E03.9 [place] [address] [address] Nov, Cervical spondylosis with radiculopathy M47.22 [place] [address] [address] Oct, Cervical spondylosis with radiculopathy M47.22 [place] [address] [address] Oct, Grief F43.21 [address] [address] [place] [address] Oct, [place] [address] [address] Oct, Major depressive disorder, recurrent epi sode, moderate F33.1 and Chronic tension-type headache, intractable G44.221 [place] [address] [address] Oct, [place] [address] [address] Oct, Breast cancer screening by mammogram Z12 .31 [place] [address] [address] September, Cervical spondylosis with radiculopathy M47.22 [place] [address] [address] September, Cervical spondylosis with radiculopathy M47.22 [place] [address] [address] Aug, Chronic pain syndrome G89.4 ; Cervicalgi a M54.2 ; Chronic nonintractable headache, unspecified headache type R51 and Alopecia L65.9 [place] [address] [address] Jul, Cervical spondylosis with radiculopathy M47.22 [place] [address] [address] Jul, [place] [address] [address] Jul, Cervical spondylosis with radiculopathy M47.22 [address] [address] [address] Jul, [address] [address] Jul, Cervical spondylosis with radiculopathy M47.22 [place] [address] [address] Jul, Cervical spondylosis with radiculopathy M47.22 [place] [address] [address] Jul, [place] [address] [address] Jun, Major depressive disorder, recurrent epi sode, moderate F33.1 ; Low back pain M54.5 and Other chronic pain G89.29 [place] [address] [address] Jun, [place] [address] [address] Jun, Bronchitis J40 ; Mixed hyperlipidemia E7 8.2 ; Cervical spondylosis with radiculopathy M47.22 ; 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 ; Major depressive disorder, recurrent episode, moderate F33.1 ; Hypothyroidism, unspecified E03.9 ; Low back pain M54.5 ; Other chronic pain G89.29 and Chronic tension-type headache, intractable G44.221 [place] [address] [address] Jun, Cervical spondylosis with radiculopathy M47.22 [place] [address] [address] May, [address] [address] [address] May, Cervical spondylosis with radiculopathy M47.22 [facility] [address] [facility] [id number] [place] [address] May, Acute nasopharyngitis J00 an d Wheezing R06.2 [place] [address] [address] May, [place] [address] [address] Apr, Cervical spondylosis with radiculopathy M47.22 [place] [address] [address] 19 Mar, 2018 Mixed hyperlipidemia E78.2 and Family hi story of stroke Z82.3 [place] [address] [address] 18 Mar, 2018 Cervical spondylosis with radiculopathy M47.22 [address] [address] [address] Mar, Hypothyroidism, unspecified E03.9 ; Cerv icalgia M54.2 and Chronic migraine G43.709 [place] [address] [address] 15 Mar, 2018 Cervical spondylosis with radiculopathy M47.22 [place] [address] [address] 08 Mar, 2018 Chronic migraine G43.709 ; Cervicalgia M 54.2 and Family history of stroke Z82.3 [place] [address] [address] 14 Jan, 2018 Cervical spondylosis with radiculopathy M47.22 [place] [address] [address] 05 Jan, 2018 Reactive airway disease that is not asth ma R09.89 [facility] [address] [facility] [id number] [address] [place] [address] Dec, Allergic dermatitis due to o ther chemical product L23.5 [place] [address] [address] Dec, Cervical spondylosis with radiculopathy M47.22 and Depression, unspecified depression type F32.9 [place] [address] [address] Oct, [place] [address] [address] Oct, [place] [address] [address] Oct, [place] [address] [address] September, Chronic pain syndrome G89.4 [place] [address] [address] September, Depression, unspecified depression type F32.9 and Cervicalgia M54.2 [place] [address] [address] September, Chronic pain syndrome G89.4 [place] [address] [address] Aug, Red stool R19.5 [place] [address] [address] Aug, Depression, unspecified depression type F32.9 ; Chronic pain syndrome G89.4 ; Chronic tension-type headache, intractable G44.221 ; Red stool R19.5 ; Hypothyroidism, unspecified E03.9 and Mixed hyperlipidemia E78.2 [address] [place] [address] [address] Jul, Major depressive disorder, recurrent epi sode, moderate F33.1 [place] [address] [address] Jul, [address] [place] [address] [address] Jul, Hypothyroidism, unspecified E03.9 [place] [address] [address] Jul, Hypothyroidism, unspecified E03.9 [place] [address] [address] Jul, Mixed hyperlipidemia E78.2 [place] [address] [address] Jul, Mixed hyperlipidemia E78.2 [facility] [address] [facility] [id number] [address] [place] [address] Jul, Bronchitis J40 ; Cough R05 a nd Wheezing R06.2 [place] [address] [address] Jul, Major depressive disorder, recurrent epi sode, moderate F33.1 and Generalized anxiety disorder F41.1 [address] [place] [address] [address] Jul, [address] [address] [address] Jul, Major depressive disorder, recurrent epi sode, moderate F33.1 and Generalized anxiety disorder F41.1 [place] [address] [address] Jul, Generalized anxiety disorder F41.1 and M lopezor depressive disorder, recurrent episode, moderate F33.1 [place] [address] [address] Jul, Mixed hyperlipidemia E78.2 [place] [address] [address] Jun, Depression, unspecified depression type F32.9 ; Cervicalgia M54.2 ; Trigger point M79.1 ; Hypothyroidism, unspecified E03.9 ; Screening, lipid Z13.220 and Mixed hyperlipidemia E78.2 [place] [address] [address] Jun, [place] [address] [address] May, [place] [address] [address] Apr, Acute bronchitis due to other specified organisms J20.8 and Tobacco abuse counseling Z71.6 [place] [address] [address] Mar, Depression, unspecified depression type F32.9 [address] [address] [address] Jan, Chronic pain syndrome G89.4 [facility] [address] [address] Nov, Anxiety F41.9 ; Depression, unspecified depression type F32.9 and Chronic pain syndrome G89.4 [facility] [id number] [place] [address] Oct, Anxiety F41.9 and Hypothyroidism, unspec ified E03.9 [facility] [address] [facility] [id number] [address] [place] [address] Oct, Left foot pain M79.672 and C ontusion of left foot, 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 S90.32XA [facility] [address] [address] Oct, [facility] [address] [address] September, Cervicalgia M54.2 [facility] [address] [address] September, [facility] [address] [address] Aug, Cervicalgia M54.2 [address] [place] [address] Aug, Cervicalgia M54.2 and Left arm numbness R20.0 [facility] [address] [address] Aug, [facility] [address] [address] Aug, [facility] [address] [address] Jul, [facility] [address] [address] Jul, [facility] [address] [address] Jul, [facility] [address] [address] Jul, Acute midline low back pain without scia zak M54.5 [facility] [address] [address] Jun, Acute midline low back pain without scia zak M54.5 [address] [place] [address] Jun, Chronic pain syndrome G89.4 and Muscle s pasm M62.838 [address] [address] Jun, [address] [place] [address] Jun, Acute midline low back pain without scia zak M54.5 [address] [place] [address] [address] Jun, [address] [place] [address] May, [address] [address] May, Hypothyroidism, unspecified E03.9 ; 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 ; Hyperglycemia R73.9 ; Encounter for immunization Z23 and Mixed hyperlipidemia E78.2 [address] [place] [address] [address] Apr, Fatigue 780.79 [address] [address] [address] Apr, Chronic pain syndrome G89.4 [address] [address] Mar, [address] [place] [address] Mar, Chronic pain syndrome G89.4 [address] [address] Jan, [address] [address] Dec, [address] [place] [address] Dec, Chronic pain syndrome G89.4 [address] [address] Dec, Trigger point M79.2 [address] [address] Nov, Chronic pain syndrome G89.4 [address] [address] Oct, Chronic pain syndrome G89.4 [address] [place] [address] [address] Oct, Irritant contact dermatitis due to deter gent L24.0 [address] [address] [address] September, Hypothyroidism, unspecified E03.9 and De pression, unspecified depression type F32.9 [address] [address] [address] September, Chronic pain syndrome G89.4 [address] [place] [address] Aug, [address] [address] Aug, Trigger point M79.2 [address] [address] Jul, Chronic pain syndrome G89.4 and Juanito paniagua 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.891 [address] [address] Jul, Chronic pain syndrome G89.4 and 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 [address] [address] Jul, [facility] [id number] [place] [address] Jul, [facility] [id number] [place] [address] Jun, [facility] [id number] [place] [address] May, [facility] [id number] [place] [address] May, [facility] [id number] [place] [address] May, [facility] [id number] [place] [address] May, Pneumonia, organism unspecified, unspeci fied laterality, unspecified part of lung J18.9 [facility] [id number] [place] [address] May, Pneumonia, organism unspecified, unspeci fied laterality, unspecified part of lung J18.9 [facility] [id number] [place] [address] Apr, [facility] [id number] [place] [address] Apr, [facility] [id number] [place] [address] Apr, [facility] [id number] [place] [address] Apr, [facility] [id number] [place] [address] Apr, [facility] [id number] [place] [address] Apr, Epigastric pain R10.13 [facility] [id number] [place] [address] Mar, Tinea pedis B35.3 and Contact dermatitis and eczema due to detergents L24.0 [facility] [id number] [place] [address] Mar, [facility] [id number] [place] [address] Jan, [facility] [address] [address] Jan, [facility] [address] [address] Jan, [facility] [address] [address] Dec, [facility] [address] [address] Nov, [facility] [address] [address] Nov, Fatigue 780.79 [facility] [address] [address] Nov, [facility] [address] [address] Nov, Unspecified myalgia and myositis 729.1 [facility] [address] [address] Nov, Hypercalcemia 275.42 [facility] [address] [address] Nov, Fatigue 780.79 ; Bradycardia 427.89 ; Ch ronic pain 338.29 and Family history of diabetes mellitus V18.0 [facility] [address] [address] Nov, Fatigue 780.79 ; Chronic pain 338.29 ; F amily history of diabetes mellitus V18.0 ; Bradycardia 427.89 ; Hypothyroid 244.9 and Anxiety 300.00 [facility] [id number] [place] [address] Oct, [facility] [address] [address] September, [facility] [address] [id number] [place] [address] 30 Aug, 2014 [facility] [address] [id number] [place] [address] 14 Aug, 2014 [facility] [address] [id number] [place] [address] Aug, [facility] [address] [id number] [place] [address] Jul, [facility] [address] [id number] [place] [address] Jul, [facility] [address] [id number] [place] [address] Jul, [facility] [address] [id number] [place] [address] Jul, [facility] [address] [id number] [place] [address] Jun, [facility] [address] [id number] [place] [address] Jun, [facility] [address] [id number] [place] [address] Jun, [facility] [address] [id number] [place] [address] Jun, [facility] [address] [id number] [place] [address] Jun, [facility] [address] [id number] [place] [address] Jun, [facility] [address] [id number] [place] [address] May, [facility] [address] [id number] [place] [address] May, [facility] [address] [id number] [place] [address] May, [facility] [address] [id number] [place] [address] May, [facility] [address] [id number] [place] [address] May, [facility] [address] [id number] [place] [address] May, [facility] [address] [id number] [place] [address] May, [facility] [address] [id number] [place] [address] May, [facility] [address] [id number] [place] [address] May, [facility] [address] [id number] [place] [address] May, [facility] [address] [id number] [place] [address] Apr, [facility] [address] [id number] [place] [address] Apr, [facility] [address] [id number] [place] [address] Apr, [facility] [address] [id number] [place] [address] Apr, [facility] [address] [id number] [place] [address] Apr, [facility] [address] [id number] [place] [address] Apr, [facility] [address] [id number] [place] [address] Apr, [facility] [address] [id number] [place] [address] Apr, [facility] [address] [id number] [place] [address] Apr, [facility] [address] [id number] [place] [address] Apr, [facility] [address] [id number] [place] [address] 13 Apr, 2014 [facility] [address] [id number] [place] [address] 13 Apr, 2014 [facility] [address] [id number] [place] [address] 11 Apr, 2014 [facility] [address] [id number] [place] [address] 10 Apr, 2014 [facility] [address] [id number] [place] [address] 10 Apr, 2014 [facility] [address] [id number] [place] [address] 16 Mar, 2014 [facility] [address] [id number] [place] [address] 16 Mar, 2014 [facility] [address] [id number] [place] [address] 16 Mar, 2014 [facility] [address] [id number] [place] [address] 16 Mar, 2014 [facility] [address] [id number] [place] [address] 19 Jan, 2014 [facility] [address] [id number] [place] [address] 19 Jan, 2014 [facility] [address] [id number] [place] [address] 18 Jan, 2014 [facility] [address] [id number] [place] [address] 18 Jan, 2014 [facility] [address] [id number] [place] [address] 02 Jan, 2014 [facility] [address] [id number] [place] [address] Jan, [facility] [address] [id number] [place] [address] Dec, [facility] [address] [id number] [place] [address] Dec, [facility] [address] [id number] [place] [address] Dec, [facility] [address] [facility] [id number] [place] [address] Dec, [facility] [address] [facility] [id number] [place] [address] Nov, [facility] [address] [facility] [id number] [place] [address] Nov, [facility] [address] [facility] [id number] [place] [address] Nov, [facility] [address] [facility] [id number] [place] [address] Nov, [facility] [address] [id number] [place] [address] Oct, [facility] [address] [id number] [place] [address] Oct, [facility] [address] [facility] [id number] [place] [address] Oct, [facility] [address] [id number] [place] [address] Oct, [facility] [address] [id number] [place] [address] Oct, [facility] [address] [id number] [place] [address] Oct, [facility] [address] [facility] [id number] [place] [address] Oct, [facility] [address] [facility] [id number] [place] [address] Oct, [facility] [address] [facility] [id number] [place] [address] Oct, [facility] [address] [id number] [place] [address] Oct, [facility] [address] [id number] [place] [address] September, [facility] [address] [id number] [place] [address] September, [facility] [address] [facility] [id number] [place] [address] September, [facility] [address] [id number] [place] [address] September, [facility] [address] [id number] [place] [address] September, [facility] [address] [facility] [id number] [place] [address] September, [facility] [address] [id number] [place] [address] September, [facility] [address] [id number] [place] [address] September, [facility] [address] [id number] [place] [address] September, [facility] [address] [id number] [place] [address] Aug, [facility] [address] [id number] [place] [address] Aug, [facility] [address] [id number] [place] [address] Aug, [facility] [address] [id number] [place] [address] Aug, [facility] [address] [id number] [place] [address] Aug, [facility] [address] [id number] [place] [address] Aug, [facility] [address] [id number] [place] [address] Aug, [facility] [address] [id number] [place] [address] Aug, [facility] [facility] [address] [id number] [place] [address] 28 Jul, 2013 [facility] [address] [facility] [id number] [place] [address] Jul, [facility] [address] [facility] [id number] [place] [address] Jul, [facility] [address] [id number] [place] [address] Jul, [facility] [address] [id number] [place] [address] 24 Jul, 2013 [facility] [address] [facility] [id number] [place] [address] Jul, [facility] [address] [id number] [place] [address] Jul, [facility] [address] [id number] [place] [address] 18 Jul, 2013 [facility] [address] [id number] [place] [address] 18 Jul, 2013 [facility] [address] [id number] [place] [address] 17 Jul, 2013 [facility] [address] [id number] [place] [address] 17 Jul, 2013 [facility] [address] [id number] [place] [address] 13 Jul, 2013 [facility] [address] [id number] [place] [address] 13 Jul, 2013 [facility] [address] [id number] [place] [address] 05 Jul, 2013 [facility] [address] [id number] [place] [address] 05 Jul, 2013 [facility] [address] [id number] [place] [address] 10 Jul, 2013 [facility] [address] [id number] [place] [address] 10 Jul, 2013 [facility] [address] [id number] [place] [address] Jul, [facility] [address] [id number] [place] [address] Jul, [facility] [address] [id number] [place] [address] Jun, [facility] [address] [id number] [place] [address] Jun, [facility] [address] [id number] [place] [address] May, [facility] [address] [id number] [place] [address] May, [facility] [address] [id number] [place] [address] Apr, [facility] [id number] [place] [address] Apr, [facility] [address] [id number] [place] [address] Apr, [facility] [address] [id number] [place] [address] Apr, [facility] [address] [id number] [place] [address] Apr, [facility] [address] [id number] [place] [address] Apr, [facility] [address] [id number] [place] [address] Mar, [facility] [address] [id number] [place] [address] Mar, [facility] [address] [id number] [place] [address] Mar, [facility] [address] [id number] [place] [address] Mar, [facility] [address] [id number] [place] [address] Jan, [facility] [address] [facility] [id number] [place] [address] Jan, [facility] [address] [facility] [id number] [place] [address] Jan, [facility] [address] [id number] [place] [address] Dec, [facility] [address] [facility] [id number] [place] [address] Dec, [facility] [address] [facility] [id number] [place] [address] Dec, [facility] [address] [id number] [place] [address] Dec, [facility] [address] [id number] [place] [address] Nov, [facility] [address] [id number] [place] [address] Nov, [facility] [address] [facility] [id number] [place] [address] Nov, [facility] [address] [id number] [place] [address] Oct, [facility] [address] [id number] [place] [address] Oct, [facility] [address] [id number] [place] [address] Oct, [facility] [address] [facility] [id number] [place] [address] Oct, [facility] [address] [id number] [place] [address] Oct, [facility] [address] [id number] [place] [address] Oct, [facility] [address] [id number] [place] [address] September, [facility] [address] [id number] [place] [address] Jul, [facility] [address] [id number] [place] [address] Jul, [facility] [address] [id number] [place] [address] Jul, [facility] [address] [id number] [place] [address] Jul, [facility] [address] [id number] [place] [address] Jul, [facility] [address] [id number] [place] [address] Jul, [facility] [address] [id number] [place] [address] Jun, [facility] [address] [id number] [place] [address] Apr, [facility] [address] [id number] [place] [address] Apr, [facility] [address] [id number] [place] [address] Jan, [facility] [address] [id number] [place] [address] Dec, [facility] [address] [id number] [place] [address] Nov, [facility] [address] [id number] [place] [address] Oct, [facility] [address] [id number] [place] [address] September, [facility] [address] [id number] [place] [address] September, [facility] [address] [id number] [place] [address] Jul, [facility] [address] [id number] [place] [address] Jul, [facility] [address] [id number] [place] [address] 28 Jul, 2011 [facility] [address] [id number] [place] [address] Jul, [facility] [address] [id number] [place] [address] Jul, [facility] [address] [id number] [place] [address] 17 Jul, 2011 [facility] [address] [id number] [place] [address] 13 Jul, 2011 [facility] [address] [id number] [place] [address] Jul, [facility] [address] [id number] [place] [address] 08 Jul, 2011 [facility] [address] [id number] [place] [address] Jul, [facility] [address] [id number] [place] [address] Jun, [facility] [address] [id number] [place] [address] May, [facility] [address] [id number] [place] [address] May, [facility] [address] [id number] [place] [address] May, [facility] [address] [id number] [place] [address] Apr, [facility] [address] [id number] [place] [address] Apr, [facility] [address] [id number] [place] [address] 20 Mar, 2011 [facility] [address] [id number] [place] [address] Mar, [facility] [address] [id number] [place] [address] 13 Mar, 2011 [facility] [address] [id number] [place] [address] Mar, [facility] [address] [id number] [place] [address] Mar, [facility] [address] [id number] [place] [address] September, [facility] [id number] [place] [address] Mar, [facility] [address] [id number] [place] [address] Dec, [facility] [address] [id number] [place] [address] May, [facility] [address] [id number] [place] [address] May, IMMUNIZATIONS No Known Immunizations SOCIAL HISTORY Never Assessed REASON FOR VISIT PLAN OF CARE VITAL SIGNS MEDICATIONS Unknown Medications RESULTS No Results PROCEDURES Procedure Date Ordered Result Body Site ASSAY THYROID STIM HORMONE October 19, 2013 VENIPUNCT, ROUTINE* October 19, 2013 INSTRUCTIONS MEDICATIONS ADMINISTERED No Known Medications MEDICAL (GENERAL) HISTORY Type Description Date Medical History hypothyroidism Medical History anxiety Medical History chronic back pain Medical History hypercholesterolemia Medical History bronchitis Surgical History hysterectomy 2010 Surgical History revision of the mesh sling 2011 Surgical History cholecystectomy Surgical History tonsilectomy Surgical History L knee tumor removal Hospitalization History surgeries
--- OUTSIDE RECORDS SUMMARY | 2019-10-01 10:46 | XMS REPORT ---
Author Author Samra BARCENAS Organization [facility] Address [address] [place] [address] Care Team Providers Care Vice President Of Academic Affairs Name Role Phone CEDRICK BARCENAS Unavailable PROBLEMS Type Condition ICD9-CM Code ZTC13-VH Code Onset Dates Condition S tatus SNOMED Code Problem [facility] 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.891 Active 022779626 Problem Chronic pain syndrome G89.4 Active 709950893 Problem Hypothyroidism, unspecified E03.9 Ac tive 44338592 Problem Depression, unspecified depression type F32.9 Active 61145628 Problem Major depressive disorder, recurrent episode, moderate F33.1 Active 290483583 Problem Generalized anxiety disorder F41.1 A ctive 46057537 Problem Chronic tension-type headache, intractable G44.221 Active 519213467 Problem Major depressive disorder, recurrent, unspecified F33.9 Active 03203838 Problem Anxiety F41.9 Active 60482201 Problem Primary insomnia F51.01 Active 397 2004 Problem Mixed hyperlipidemia E78.2 Active 069924893 Problem Cervical spondylosis with radiculopathy M47.22 Active 817566897 Problem Chronic migraine G43.709 Active 377 92651 Problem Other chronic pain G89.29 Active 8 4947577 Problem Grief F43.21 Active [id number] ALLERGIES No Information ENCOUNTERS Encounter Location Date Diagnosis [facility] [id number] [place] [address] Jul, [facility] [address] [address] Jul, [facility] [address] [address] Jul, [facility] [id number] [place] [address] Jul, Cervical spondylosis with radiculopathy M47.22 [facility] [address] [address] Jun, [facility] [address] [facility] [id number] [address] [place] [address] Jun, Allergic urticaria L50.0 [facility] [address] [address] 15 Jun, 2019 Cervical spondylosis with radiculopathy M47.22 [facility] [address] [address] 14 Jun, 2019 Hypothyroidism, unspecified E03.9 [address] [address] 14 Jun, 2019 [address] [address] [address] 13 Jun, 2019 Major depressive disorder, recurrent, un specified F33.9 ; Primary insomnia F51.01 and Strain of lumbar region, 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 S39.012A [address] [address] [address] 06 Jun, 2019 Cervical spondylosis with radiculopathy M47.22 [place] [address] [address] 02 Jun, 2019 Back strain, subsequent encounter S39.01 2D [address] [address] 02 Jun, 2019 [address] [address] May, Cervical spondylosis with radiculopathy M47.22 [address] [place] [address] [address] Apr, [address] [place] [address] [address] 12 Apr, 2019 Cervical spondylosis with radiculopathy M47.22 [address] [address] [address] Mar, Cervical spondylosis with radiculopathy M47.22 [address] [place] [address] [address] Jan, Generalized anxiety disorder F41.1 and M ajor depressive disorder, recurrent, unspecified F33.9 [place] [address] [address] 16 Jan, 2019 Cervical spondylosis with radiculopathy M47.22 [place] [address] [address] Jan, [address] [place] [address] [address] Jan, Major depressive disorder, recurrent epi sode, moderate F33.1 and Generalized anxiety disorder F41.1 [place] [address] [address] Dec, [address] [address] Dec, Cervical spondylosis with radiculopathy M47.22 [address] [place] [address] [address] Nov, Cervical spondylosis with radiculopathy M47.22 [address] [address] [address] Nov, Hypothyroidism, unspecified E03.9 [address] [address] [address] Nov, Cervical spondylosis with radiculopathy M47.22 [address] [place] [address] [address] Oct, Cervical spondylosis with radiculopathy M47.22 [place] [address] [address] Oct, Grief F43.21 [address] [place] [address] Oct, [address] [address] Oct, Major depressive disorder, recurrent epi sode, moderate F33.1 and Chronic tension-type headache, intractable G44.221 [address] [address] [address] Oct, [address] [address] [address] Oct, Breast cancer screening by mammogram Z12 .31 [address] [address] [address] September, Cervical spondylosis with radiculopathy M47.22 [address] [address] [address] September, Cervical spondylosis with radiculopathy M47.22 [address] [address] [address] Aug, Chronic pain syndrome G89.4 ; Cervicalgi a M54.2 ; Chronic nonintractable headache, unspecified headache type R51 and Alopecia L65.9 [address] [address] [address] Jul, Cervical spondylosis with radiculopathy M47.22 [address] [address] [address] Jul, [address] [place] [address] [address] Jul, Cervical spondylosis with radiculopathy M47.22 [address] [address] [address] Jul, [address] [address] Jul, Cervical spondylosis with radiculopathy M47.22 [address] [address] [address] Jul, Cervical spondylosis with radiculopathy M47.22 [place] [address] [address] Jul, [address] [place] [address] [address] Jun, Major depressive disorder, recurrent epi sode, moderate F33.1 ; Low back pain M54.5 and Other chronic pain G89.29 [address] [address] [address] Jun, [address] [place] [address] [address] Jun, Bronchitis J40 ; Mixed hyperlipidemia E7 8.2 ; Cervical spondylosis with radiculopathy M47.22 ; 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 ; Major depressive disorder, recurrent episode, moderate F33.1 ; Hypothyroidism, unspecified E03.9 ; Low back pain M54.5 ; Other chronic pain G89.29 and Chronic tension-type headache, intractable G44.221 [address] [address] [address] Jun, Cervical spondylosis with radiculopathy M47.22 [address] [place] [address] [address] May, [address] [place] [address] [address] May, Cervical spondylosis with radiculopathy M47.22 [facility] [address] [facility] [id number] [place] [address] May, Acute nasopharyngitis J00 an d Wheezing R06.2 [address] [address] [address] May, [address] [place] [address] [address] Apr, Cervical spondylosis with radiculopathy M47.22 [place] [address] [address] 19 Mar, 2018 Mixed hyperlipidemia E78.2 and Family hi story of stroke Z82.3 [place] [address] [address] 18 Mar, 2018 Cervical spondylosis with radiculopathy M47.22 [place] [address] [address] Mar, Hypothyroidism, unspecified E03.9 ; Cerv icalgia M54.2 and Chronic migraine G43.709 [place] [address] [address] 15 Mar, 2018 Cervical spondylosis with radiculopathy M47.22 [place] [address] [address] 08 Mar, 2018 Chronic migraine G43.709 ; Cervicalgia M 54.2 and Family history of stroke Z82.3 [place] [address] [address] 14 Jan, 2018 Cervical spondylosis with radiculopathy M47.22 [place] [address] [address] 05 Jan, 2018 Reactive airway disease that is not asth ma R09.89 [facility] [address] [facility] [id number] [address] [place] [address] Dec, Allergic dermatitis due to o ther chemical product L23.5 [address] [address] [address] Dec, Cervical spondylosis with radiculopathy M47.22 and Depression, unspecified depression type F32.9 [address] [address] [address] Oct, [place] [address] [address] Oct, [address] [place] [address] [address] Oct, [place] [address] [address] September, Chronic pain syndrome G89.4 [address] [address] [address] September, Depression, unspecified depression type F32.9 and Cervicalgia M54.2 [place] [address] [address] September, Chronic pain syndrome G89.4 [address] [address] [address] Aug, Red stool R19.5 [address] [address] [address] Aug, Depression, unspecified depression type F32.9 ; Chronic pain syndrome G89.4 ; Chronic tension-type headache, intractable G44.221 ; Red stool R19.5 ; Hypothyroidism, unspecified E03.9 and Mixed hyperlipidemia E78.2 [address] [address] [address] Jul, Major depressive disorder, recurrent epi sode, moderate F33.1 [place] [address] [address] Jul, [address] [address] [address] Jul, Hypothyroidism, unspecified E03.9 [address] [place] [address] [address] Jul, Hypothyroidism, unspecified E03.9 [place] [address] [address] Jul, Mixed hyperlipidemia E78.2 [address] [address] [address] Jul, Mixed hyperlipidemia E78.2 [facility] [address] [facility] [id number] [address] [place] [address] Jul, Bronchitis J40 ; Cough R05 a nd Wheezing R06.2 [address] [address] [address] Jul, Major depressive disorder, recurrent epi sode, moderate F33.1 and Generalized anxiety disorder F41.1 [address] [address] [address] Jul, [address] [address] [address] Jul, Major depressive disorder, recurrent epi sode, moderate F33.1 and Generalized anxiety disorder F41.1 [address] [address] [address] Jul, Generalized anxiety disorder F41.1 and M lopezor depressive disorder, recurrent episode, moderate F33.1 [place] [address] [address] Jul, Mixed hyperlipidemia E78.2 [place] [address] [address] Jun, Depression, unspecified depression type F32.9 ; Cervicalgia M54.2 ; Trigger point M79.1 ; Hypothyroidism, unspecified E03.9 ; Screening, lipid Z13.220 and Mixed hyperlipidemia E78.2 [place] [address] [address] Jun, [address] [address] [address] May, [address] [address] [address] Apr, Acute bronchitis due to other specified organisms J20.8 and Tobacco abuse counseling Z71.6 [address] [address] [address] Mar, Depression, unspecified depression type F32.9 [address] [place] [address] [address] Jan, Chronic pain syndrome G89.4 [facility] [address] [address] Nov, Anxiety F41.9 ; Depression, unspecified depression type F32.9 and Chronic pain syndrome G89.4 [facility] [id number] [place] [address] Oct, Anxiety F41.9 and Hypothyroidism, unspec ified E03.9 [facility] [address] [facility] [id number] [address] [place] [address] Oct, Left foot pain M79.672 and C ontusion of left foot, 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 S90.32XA [facility] [address] [address] Oct, [facility] [address] [address] September, Cervicalgia M54.2 [facility] [address] [address] September, [facility] [address] [address] Aug, Cervicalgia M54.2 [place] [address] [address] Aug, Cervicalgia M54.2 and Left arm numbness R20.0 [facility] [address] [address] Aug, [facility] [address] [address] Aug, [facility] [address] [address] Jul, [facility] [address] [address] Jul, [facility] [address] [address] Jul, [facility] [address] [address] Jul, Acute midline low back pain without scia zak M54.5 [facility] [address] [address] Jun, Acute midline low back pain without scia zak M54.5 [address] [address] [address] Jun, Chronic pain syndrome G89.4 and Muscle s pasm M62.838 [address] [address] [address] Jun, [address] [address] [address] Jun, Acute midline low back pain without scia zak M54.5 [address] [address] [address] Jun, [address] [place] [address] May, [address] [address] [address] May, Hypothyroidism, unspecified E03.9 ; 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 ; Hyperglycemia R73.9 ; Encounter for immunization Z23 and Mixed hyperlipidemia E78.2 [place] [address] [address] Apr, Fatigue 780.79 [place] [address] [address] Apr, Chronic pain syndrome G89.4 [place] [address] [address] Mar, [address] [address] [address] Mar, Chronic pain syndrome G89.4 [address] [address] [address] Jan, [address] [place] [address] [address] Dec, [address] [place] [address] [address] Dec, Chronic pain syndrome G89.4 [address] [address] [address] Dec, Trigger point M79.2 [address] [address] [address] Nov, Chronic pain syndrome G89.4 [address] [place] [address] [address] Oct, Chronic pain syndrome G89.4 [address] [address] [address] Oct, Irritant contact dermatitis due to deter gent L24.0 [address] [address] [address] September, Hypothyroidism, unspecified E03.9 and De pression, unspecified depression type F32.9 [address] [address] [address] September, Chronic pain syndrome G89.4 [address] [address] [address] Aug, [address] [address] [address] Aug, Trigger point M79.2 [address] [address] [address] Jul, Chronic pain syndrome G89.4 and Juanito paniagua 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.891 [address] [address] [address] Jul, Chronic pain syndrome G89.4 and 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 [address] [address] [address] Jul, [facility] [id number] [place] [address] Jul, [facility] [id number] [place] [address] Jun, [facility] [id number] [place] [address] May, [facility] [id number] [place] [address] May, [facility] [id number] [place] [address] May, [facility] [id number] [place] [address] May, Pneumonia, organism unspecified, unspeci fied laterality, unspecified part of lung J18.9 [facility] [id number] [place] [address] May, Pneumonia, organism unspecified, unspeci fied laterality, unspecified part of lung J18.9 [facility] [id number] [place] [address] Apr, [facility] [id number] [place] [address] Apr, [facility] [id number] [place] [address] Apr, [facility] [id number] [place] [address] Apr, [facility] [id number] [place] [address] Apr, [facility] [id number] [place] [address] Apr, Epigastric pain R10.13 [facility] [id number] [place] [address] Mar, Tinea pedis B35.3 and Contact dermatitis and eczema due to detergents L24.0 [facility] [id number] [place] [address] Mar, [facility] [id number] [place] [address] Jan, [facility] [address] [address] Jan, [facility] [address] [address] Jan, [facility] [address] [address] Dec, [facility] [address] [address] Nov, [facility] [address] [address] Nov, Fatigue 780.79 [facility] [address] [address] Nov, [facility] [address] [address] Nov, Unspecified myalgia and myositis 729.1 [facility] [address] [address] Nov, Hypercalcemia 275.42 [facility] [address] [address] Nov, Fatigue 780.79 ; Bradycardia 427.89 ; Ch ronic pain 338.29 and Family history of diabetes mellitus V18.0 [facility] [address] [address] Nov, Fatigue 780.79 ; Chronic pain 338.29 ; F amily history of diabetes mellitus V18.0 ; Bradycardia 427.89 ; Hypothyroid 244.9 and Anxiety 300.00 [facility] [id number] [place] [address] Oct, [facility] [address] [address] September, [facility] [address] [id number] [place] [address] 30 Aug, 2014 [facility] [address] [id number] [place] [address] 14 Aug, 2014 [facility] [address] [id number] [place] [address] Aug, [facility] [address] [id number] [place] [address] Jul, [facility] [address] [id number] [place] [address] Jul, [facility] [address] [id number] [place] [address] Jul, [facility] [address] [id number] [place] [address] Jul, [facility] [address] [id number] [place] [address] Jun, [facility] [address] [id number] [place] [address] Jun, [facility] [address] [id number] [place] [address] Jun, [facility] [address] [id number] [place] [address] Jun, [facility] [address] [id number] [place] [address] Jun, [facility] [address] [id number] [place] [address] Jun, [facility] [address] [id number] [place] [address] May, [facility] [address] [id number] [place] [address] May, [facility] [address] [id number] [place] [address] May, [facility] [address] [id number] [place] [address] May, [facility] [address] [id number] [place] [address] May, [facility] [address] [id number] [place] [address] May, [facility] [address] [id number] [place] [address] May, [facility] [address] [id number] [place] [address] May, [facility] [address] [id number] [place] [address] May, [facility] [address] [id number] [place] [address] May, [facility] [address] [id number] [place] [address] Apr, [facility] [address] [id number] [place] [address] Apr, [facility] [address] [id number] [place] [address] Apr, [facility] [address] [id number] [place] [address] Apr, [facility] [address] [id number] [place] [address] Apr, [facility] [address] [id number] [place] [address] Apr, [facility] [address] [id number] [place] [address] Apr, [facility] [address] [id number] [place] [address] Apr, [facility] [address] [id number] [place] [address] Apr, [facility] [address] [id number] [place] [address] Apr, [facility] [address] [id number] [place] [address] 13 Apr, 2014 [facility] [address] [id number] [place] [address] 13 Apr, 2014 [facility] [address] [id number] [place] [address] 11 Apr, 2014 [facility] [address] [id number] [place] [address] 10 Apr, 2014 [facility] [address] [id number] [place] [address] 10 Apr, 2014 [facility] [address] [id number] [place] [address] 16 Mar, 2014 [facility] [address] [id number] [place] [address] 16 Mar, 2014 [facility] [address] [id number] [place] [address] 16 Mar, 2014 [facility] [address] [id number] [place] [address] 16 Mar, 2014 [facility] [address] [id number] [place] [address] 19 Jan, 2014 [facility] [address] [id number] [place] [address] 19 Jan, 2014 [facility] [address] [id number] [place] [address] 18 Jan, 2014 [facility] [address] [id number] [place] [address] 18 Jan, 2014 [facility] [address] [id number] [place] [address] 02 Jan, 2014 [facility] [address] [id number] [place] [address] Jan, [facility] [address] [id number] [place] [address] Dec, [facility] [address] [id number] [place] [address] Dec, [facility] [address] [id number] [place] [address] Dec, [facility] [address] [facility] [id number] [place] [address] Dec, [facility] [address] [facility] [id number] [place] [address] Nov, [facility] [address] [facility] [id number] [place] [address] Nov, [facility] [address] [facility] [id number] [place] [address] Nov, [facility] [address] [facility] [id number] [place] [address] Nov, [facility] [address] [id number] [place] [address] Oct, [facility] [address] [id number] [place] [address] Oct, [facility] [address] [facility] [id number] [place] [address] Oct, [facility] [address] [facility] [id number] [place] [address] Oct, [facility] [address] [id number] [place] [address] Oct, [facility] [address] [id number] [place] [address] Oct, [facility] [address] [facility] [id number] [place] [address] Oct, [facility] [address] [facility] [id number] [place] [address] Oct, [facility] [address] [facility] [id number] [place] [address] Oct, [facility] [address] [id number] [place] [address] Oct, [facility] [address] [id number] [place] [address] September, [facility] [address] [id number] [place] [address] September, [facility] [address] [facility] [id number] [place] [address] September, [facility] [address] [id number] [place] [address] September, [facility] [address] [id number] [place] [address] September, [facility] [address] [facility] [id number] [place] [address] September, [facility] [address] [id number] [place] [address] September, [facility] [address] [id number] [place] [address] September, [facility] [address] [id number] [place] [address] September, [facility] [address] [id number] [place] [address] Aug, [facility] [address] [id number] [place] [address] Aug, [facility] [address] [id number] [place] [address] Aug, [facility] [address] [id number] [place] [address] Aug, [facility] [address] [id number] [place] [address] Aug, [facility] [address] [id number] [place] [address] Aug, [facility] [address] [id number] [place] [address] Aug, [facility] [address] [id number] [place] [address] Aug, [facility] [address] [id number] [place] [address] 28 Jul, 2013 [facility] [address] [facility] [id number] [place] [address] Jul, [facility] [address] [facility] [id number] [place] [address] Jul, [facility] [address] [id number] [place] [address] Jul, [facility] [address] [id number] [place] [address] 24 Jul, 2013 [facility] [address] [facility] [id number] [place] [address] Jul, [facility] [address] [id number] [place] [address] Jul, [facility] [address] [id number] [place] [address] 18 Jul, 2013 [facility] [address] [id number] [place] [address] 18 Jul, 2013 [facility] [address] [id number] [place] [address] 17 Jul, 2013 [facility] [address] [id number] [place] [address] 17 Jul, 2013 [facility] [address] [id number] [place] [address] 13 Jul, 2013 [facility] [address] [id number] [place] [address] 13 Jul, 2013 [facility] [address] [id number] [place] [address] 05 Jul, 2013 [facility] [address] [id number] [place] [address] 05 Jul, 2013 [facility] [address] [id number] [place] [address] 10 Jul, 2013 [facility] [address] [id number] [place] [address] 10 Jul, 2013 [facility] [address] [id number] [place] [address] Jul, [facility] [address] [id number] [place] [address] Jul, [facility] [address] [id number] [place] [address] Jun, [facility] [address] [id number] [place] [address] Jun, [facility] [address] [id number] [place] [address] May, [facility] [address] [id number] [place] [address] May, [facility] [address] [id number] [place] [address] Apr, [facility] [id number] [place] [address] Apr, [facility] [address] [id number] [place] [address] Apr, [facility] [address] [id number] [place] [address] Apr, [facility] [address] [id number] [place] [address] Apr, [facility] [address] [id number] [place] [address] Apr, [facility] [address] [id number] [place] [address] Mar, [facility] [address] [id number] [place] [address] Mar, [facility] [address] [id number] [place] [address] Mar, [facility] [address] [id number] [place] [address] Mar, [facility] [address] [id number] [place] [address] Jan, [facility] [address] [facility] [id number] [place] [address] Jan, [facility] [address] [facility] [id number] [place] [address] Jan, [facility] [address] [id number] [place] [address] Dec, [facility] [address] [facility] [id number] [place] [address] Dec, [facility] [address] [facility] [id number] [place] [address] Dec, [facility] [address] [id number] [place] [address] Dec, [facility] [address] [id number] [place] [address] Nov, [facility] [address] [id number] [place] [address] Nov, [facility] [address] [facility] [id number] [place] [address] Nov, [facility] [address] [id number] [place] [address] Oct, [facility] [address] [id number] [place] [address] Oct, [facility] [address] [id number] [place] [address] Oct, [facility] [address] [facility] [id number] [place] [address] Oct, [facility] [address] [id number] [place] [address] Oct, [facility] [address] [id number] [place] [address] Oct, [facility] [address] [id number] [place] [address] September, [facility] [address] [id number] [place] [address] Jul, [facility] [address] [id number] [place] [address] Jul, [facility] [address] [id number] [place] [address] Jul, [facility] [address] [id number] [place] [address] Jul, [facility] [address] [id number] [place] [address] Jul, [facility] [address] [id number] [place] [address] Jul, [facility] [address] [id number] [place] [address] Jun, [facility] [address] [id number] [place] [address] Apr, [facility] [address] [id number] [place] [address] Apr, [facility] [address] [id number] [place] [address] Jan, [facility] [address] [id number] [place] [address] Dec, [facility] [address] [id number] [place] [address] Nov, [facility] [address] [id number] [place] [address] Oct, [facility] [address] [id number] [place] [address] September, [facility] [address] [id number] [place] [address] September, [facility] [address] [id number] [place] [address] Jul, [facility] [address] [id number] [place] [address] Jul, [facility] [address] [id number] [place] [address] 28 Jul, 2011 [facility] [address] [id number] [place] [address] Jul, [facility] [address] [id number] [place] [address] Jul, [facility] [address] [id number] [place] [address] 17 Jul, 2011 [facility] [address] [id number] [place] [address] 13 Jul, 2011 [facility] [address] [id number] [place] [address] Jul, [facility] [address] [id number] [place] [address] 08 Jul, 2011 [facility] [address] [id number] [place] [address] Jul, [facility] [address] [id number] [place] [address] Jun, [facility] [address] [id number] [place] [address] May, [facility] [address] [id number] [place] [address] May, [facility] [address] [id number] [place] [address] May, [facility] [address] [id number] [place] [address] Apr, [facility] [address] [id number] [place] [address] Apr, [facility] [address] [id number] [place] [address] 20 Mar, 2011 [facility] [address] [id number] [place] [address] Mar, [facility] [address] [id number] [place] [address] Mar, [facility] [address] [id number] [place] [address] Mar, [facility] [address] [id number] [place] [address] Mar, [facility] [address] [id number] [place] [address] September, [facility] [id number] [place] [address] Mar, [facility] [address] [id number] [place] [address] Dec, [facility] [address] [id number] [place] [address] May, [facility] [address] [id number] [place] [address] May, IMMUNIZATIONS No Known Immunizations SOCIAL HISTORY [...]
--- OUTSIDE RECORDS SUMMARY | 2019-10-01 10:47 | XMS REPORT ---
Author Author Samra BARCENAS Organization [facility] Address [address] [place] [address] Care Team Providers Care Video Specialist Name Role Phone CEDRICK BARCENAS Unavailable PROBLEMS Type Condition ICD9-CM Code SQS18-EV Code Onset Dates Condition S tatus SNOMED Code Problem FCI 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.891 Active 534517820 Problem Chronic pain syndrome G89.4 Active 096875386 Problem Hypothyroidism, unspecified E03.9 Ac tive 20336086 Problem Depression, unspecified depression type F32.9 Active 36618431 Problem Major depressive disorder, recurrent episode, moderate F33.1 Active 988476700 Problem Generalized anxiety disorder F41.1 A ctive 21773374 Problem Chronic tension-type headache, intractable G44.221 Active 418522596 Problem Major depressive disorder, recurrent, unspecified F33.9 Active 99099952 Problem Anxiety F41.9 Active 37863858 Problem Primary insomnia F51.01 Active 397 2004 Problem Mixed hyperlipidemia E78.2 Active 231723070 Problem Cervical spondylosis with radiculopathy M47.22 Active 043908968 Problem Chronic migraine G43.709 Active 377 11853 Problem Other chronic pain G89.29 Active 8 9050028 Problem Grief F43.21 Active 039711292 ALLERGIES No Information ENCOUNTERS Encounter Location Date Diagnosis [facility] [address] [id number] [place] [address] 13 Jul, 2019 [facility] [address] [id number] [place] [address] Jul, [facility] [address] [id number] [place] [address] Jun, [facility] [address] [facility] [id number] [address] [place] [address] Jun, Allergic urticaria L50.0 [place] [address] [address] 15 Jun, 2019 Cervical spondylosis with radiculopathy M47.22 [place] [address] [address] 14 Jun, 2019 Hypothyroidism, unspecified E03.9 [place] [address] [address] 14 Jun, 2019 [place] [address] [address] 13 Jun, 2019 Major depressive disorder, recurrent, un specified F33.9 ; Primary insomnia F51.01 and Strain of lumbar region, 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 S39.012A [place] [address] [address] 06 Jun, 2019 Cervical spondylosis with radiculopathy M47.22 [place] [address] [address] 02 Jun, 2019 Back strain, subsequent encounter S39.01 2D [place] [address] [address] 02 Jun, 2019 [place] [address] [address] 12 May, 2019 Cervical spondylosis with radiculopathy M47.22 [place] [address] [address] Apr, [place] [address] [address] 12 Apr, 2019 Cervical spondylosis with radiculopathy M47.22 [place] [address] [address] 15 Mar, 2019 Cervical spondylosis with radiculopathy M47.22 [place] [address] [address] 20 Jan, 2019 Generalized anxiety disorder F41.1 and Sylvia kearney depressive disorder, recurrent, unspecified F33.9 [place] [address] [place] [id number] [place] [address] 16 Jan, 2019 Cervical spondylosis with radiculopathy M47.22 [place] [address] [place] [id number] [place] [address] Jan, [place] [address] [address] Jan, Major depressive disorder, recurrent epi sode, moderate F33.1 and Generalized anxiety disorder F41.1 [place] [address] [place] [id number] [place] [address] Dec, [place] [address] [address] Dec, Cervical spondylosis with radiculopathy M47.22 [place] [address] [place] [id number] [place] [address] Nov, Cervical spondylosis with radiculopathy M47.22 [place] [address] [place] [id number] [place] [address] Nov, Hypothyroidism, unspecified E03.9 [place] [address] [address] Nov, Cervical spondylosis with radiculopathy M47.22 [place] [address] [place] [id number] [place] [address] Oct, Cervical spondylosis with radiculopathy M47.22 [place] [address] [place] [id number] [place] [address] Oct, Grief F43.21 [place] [address] [place] [address] Oct, [place] [address] [place] [id number] [place] [address] Oct, Major depressive disorder, recurrent epi sode, moderate F33.1 and Chronic tension-type headache, intractable G44.221 [place] [address] [address] Oct, [facility] [address] [address] Oct, Breast cancer screening by mammogram Z12 .31 [facility] [address] [address] September, Cervical spondylosis with radiculopathy M47.22 [place] [address] [address] September, Cervical spondylosis with radiculopathy M47.22 [place] [address] [address] Aug, Chronic pain syndrome G89.4 ; Cervicalgi a M54.2 ; Chronic nonintractable headache, unspecified headache type R51 and Alopecia L65.9 [place] [address] [address] Jul, Cervical spondylosis with radiculopathy M47.22 [place] [address] [address] Jul, [place] [address] [address] Jul, Cervical spondylosis with radiculopathy M47.22 [place] [address] [address] Jul, [facility] [address] [address] Jul, Cervical spondylosis with radiculopathy M47.22 [facility] [address] [address] Jul, Cervical spondylosis with radiculopathy M47.22 [facility] [address] [address] Jul, [facility] [address] [address] Jun, Major depressive disorder, recurrent epi sode, moderate F33.1 ; Low back pain M54.5 and Other chronic pain G89.29 [place] [address] [address] Jun, [place] [address] [address] 14 Jun, 2018 Bronchitis J40 ; Mixed hyperlipidemia E7 8.2 ; Cervical spondylosis with radiculopathy M47.22 ; FCI 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.891 ; Major depressive disorder, recurrent episode, moderate F33.1 ; Hypothyroidism, unspecified E03.9 ; Low back pain M54.5 ; Other chronic pain G89.29 and Chronic tension-type headache, intractable G44.221 [place] [address] [address] 08 Jun, 2018 Cervical spondylosis with radiculopathy M47.22 [place] [address] [address] May, [place] [address] [address] May, Cervical spondylosis with radiculopathy M47.22 [facility] [place] [address] [facility] [id number] [address] [place] [address] May, Acute nasopharyngitis J00 an d Wheezing R06.2 [place] [address] [address] May, [place] [address] [address] Apr, Cervical spondylosis with radiculopathy M47.22 [place] [address] [address] Mar, Mixed hyperlipidemia E78.2 and Family hi story of stroke Z82.3 [place] [address] [address] Mar, Cervical spondylosis with radiculopathy M47.22 [place] [address] [address] 17 Mar, 2018 Hypothyroidism, unspecified E03.9 ; Cerv icalgia M54.2 and Chronic migraine G43.709 [place] [address] [address] 15 Mar, 2018 Cervical spondylosis with radiculopathy M47.22 [place] [address] [address] 08 Mar, 2018 Chronic migraine G43.709 ; Cervicalgia M 54.2 and Family history of stroke Z82.3 [place] [address] [address] 14 Jan, 2018 Cervical spondylosis with radiculopathy M47.22 [place] [address] [address] 05 Jan, 2018 Reactive airway disease that is not asth ma R09.89 [facility] [address] [facility] [id number] [address] [place] [address] Dec, Allergic dermatitis due to o ther chemical product L23.5 [place] [address] [address] Dec, Cervical spondylosis with radiculopathy M47.22 and Depression, unspecified depression type F32.9 [place] [address] [address] Oct, [place] [address] [address] Oct, [place] [address] [address] Oct, [place] [address] [address] September, Chronic pain syndrome G89.4 [place] [address] [address] September, Depression, unspecified depression type F32.9 and Cervicalgia M54.2 [place] [address] [address] September, Chronic pain syndrome G89.4 [place] [address] [place] [id number] Aug, Red stool R19.5 [place] [address] [place] [address] Aug, Depression, unspecified depression type F32.9 ; Chronic pain syndrome G89.4 ; Chronic tension-type headache, intractable G44.221 ; Red stool R19.5 ; Hypothyroidism, unspecified E03.9 and Mixed hyperlipidemia E78.2 [place] [address] [address] Jul, Major depressive disorder, recurrent epi sode, moderate F33.1 [place] [address] [address] Jul, [place] [address] [address] Jul, Hypothyroidism, unspecified E03.9 [place] [address] [address] Jul, Hypothyroidism, unspecified E03.9 [place] [address] [address] Jul, Mixed hyperlipidemia E78.2 [place] [address] [address] Jul, Mixed hyperlipidemia E78.2 [facility] [address] [facility] [id number] [address] [place] [address] Jul, Bronchitis J40 ; Cough R05 a nd Wheezing R06.2 [place] [address] [address] Jul, Major depressive disorder, recurrent epi sode, moderate F33.1 and Generalized anxiety disorder F41.1 [place] [address] [address] Jul, [place] [address] [address] Jul, Major depressive disorder, recurrent epi sode, moderate F33.1 and Generalized anxiety disorder F41.1 [place] [address] [address] Jul, Generalized anxiety disorder F41.1 and M christel depressive disorder, recurrent episode, moderate F33.1 [place] [address] [address] Jul, Mixed hyperlipidemia E78.2 [place] [address] [address] Jun, Depression, unspecified depression type F32.9 ; Cervicalgia M54.2 ; Trigger point M79.1 ; Hypothyroidism, unspecified E03.9 ; Screening, lipid Z13.220 and Mixed hyperlipidemia E78.2 [place] [address] [address] Jun, [place] [address] [address] May, [place] [address] [address] Apr, Acute bronchitis due to other specified organisms J20.8 and Tobacco abuse counseling Z71.6 [place] [address] [address] Mar, Depression, unspecified depression type F32.9 [place] [address] [address] Jan, Chronic pain syndrome G89.4 [place] [address] [address] Nov, Anxiety F41.9 ; Depression, unspecified depression type F32.9 and Chronic pain syndrome G89.4 [place] [address] [address] Oct, Anxiety F41.9 and Hypothyroidism, unspec ified E03.9 [facility] [address] [facility] [id number] [address] [place] [address] Oct, Left foot pain M79.672 and C ontusion of left foot, 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 S90.32XA [facility] [address] [address] Oct, [facility] [address] [address] September, Cervicalgia M54.2 [place] [address] [address] September, [facility] [address] [address] Aug, Cervicalgia M54.2 [facility] [address] [address] Aug, Cervicalgia M54.2 and Left arm numbness R20.0 [facility] [address] [address] Aug, [facility] [address] [address] Aug, [facility] [address] [address] Jul, [facility] [address] [address] Jul, [facility] [address] [address] Jul, [facility] [address] [address] Jul, Acute midline low back pain without scia zak M54.5 [facility] [address] [address] Jun, Acute midline low back pain without scia zak M54.5 [facility] [address] [address] Jun, Chronic pain syndrome G89.4 and Muscle s pasm M62.838 [facility] [address] [address] Jun, [facility] [address] [address] Jun, Acute midline low back pain without scia zak M54.5 [facility] [address] [address] Jun, [facility] [address] [address] May, [facility] [address] [address] May, Hypothyroidism, unspecified E03.9 ; [employer] radha pain syndrome G89.4 ; Hyperglycemia R73.9 ; Encounter for immunization Z23 and Mixed hyperlipidemia E78.2 [facility] [address] [address] Apr, Fatigue 780.79 [facility] [address] [address] Apr, Chronic pain syndrome G89.4 [facility] [address] [address] Mar, [facility] [address] [address] Mar, Chronic pain syndrome G89.4 [facility] [address] [address] Jan, [facility] [address] [address] Dec, [facility] [address] [address] Dec, Chronic pain syndrome G89.4 [facility] [address] [address] Dec, Trigger point M79.2 [facility] [address] [address] Nov, Chronic pain syndrome G89.4 [facility] [address] [address] Oct, Chronic pain syndrome G89.4 [facility] [address] [address] Oct, Irritant contact dermatitis due to deter gent L24.0 [place] [address] [address] September, Hypothyroidism, unspecified E03.9 and De pression, unspecified depression type F32.9 [place] [address] [address] September, Chronic pain syndrome G89.4 [place] [address] [address] Aug, [facility] [address] [address] Aug, Trigger point M79.2 [place] [address] [address] Jul, Chronic pain syndrome G89.[address] m 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.891 [place] [address] [address] Jul, Chronic pain syndrome G89.[address] m 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.891 [place] [address] [address] Jul, [place] [address] [address] Jul, [place] [address] [address] Jun, [facility] [address] [place] [address] May, [facility] [address] [address] May, [facility] [address] [address] May, [facility] [address] [address] May, Pneumonia, organism unspecified, unspeci fied laterality, unspecified part of lung J18.9 [facility] [address] [address] May, Pneumonia, organism unspecified, unspeci fied laterality, unspecified part of lung J18.9 [facility] [address] [address] Apr, [facility] [address] [address] Apr, [facility] [address] [address] Apr, [facility] [address] [address] Apr, [facility] [address] [address] Apr, [facility] [address] [address] Apr, Epigastric pain R10.13 [facility] [address] [address] Mar, Tinea pedis B35.3 and Contact dermatitis and eczema due to detergents L24.0 [facility] [address] [address] Mar, [facility] [address] [address] Jan, [facility] [address] [address] Jan, [facility] [address] [place] [id number] [place] [address] Jan, [facility] [address] [address] Dec, [facility] [address] [address] Nov, [facility] [address] [address] Nov, Fatigue 780.79 [facility] [address] [address] Nov, [facility] [address] [address] Nov, Unspecified myalgia and myositis 729.1 [facility] [address] [address] Nov, Hypercalcemia 275.42 [facility] [address] [place] [id number] [place] [address] Nov, Fatigue 780.79 ; Bradycardia 427.89 ; Ch ronic pain 338.29 and Family history of diabetes mellitus V18.0 [facility] [address] [place] [id number] [place] [address] Nov, Fatigue 780.79 ; Chronic pain 338.29 ; F amily history of diabetes mellitus V18.0 ; Bradycardia 427.89 ; Hypothyroid 244.9 and Anxiety 300.00 [facility] [address] [place] [id number] [place] [address] Oct, [facility] [address] [address] September, [facility] [address] [address] 30 Aug, 2014 [facility] [address] [address] Aug, [facility] [address] [address] Aug, [facility] [address] [id number] [place] [address] Jul, [facility] [address] [id number] [place] [address] Jul, [facility] [address] [id number] [place] [address] Jul, [facility] [address] [id number] [place] [address] Jul, [facility] [address] [id number] [place] [address] Jun, [facility] [address] [id number] [place] [address] Jun, [facility] [address] [id number] [place] [address] Jun, [facility] [address] [id number] [place] [address] Jun, [facility] [address] [id number] [place] [address] Jun, [facility] [address] [id number] [place] [address] Jun, [facility] [address] [id number] [place] [address] May, [facility] [address] [id number] [place] [address] May, [facility] [address] [id number] [place] [address] May, [facility] [address] [id number] [place] [address] May, [facility] [address] [id number] [place] [address] May, [facility] [address] [id number] [place] [address] May, [facility] [address] [id number] [place] [address] May, [facility] [address] [id number] [place] [address] May, [facility] [address] [id number] [place] [address] May, [facility] [address] [id number] [place] [address] May, [facility] [address] [id number] [place] [address] Apr, [facility] [address] [id number] [place] [address] Apr, [facility] [address] [id number] [place] [address] Apr, [facility] [address] [id number] [place] [address] Apr, [facility] [address] [id number] [place] [address] Apr, [facility] [address] [id number] [place] [address] Apr, [facility] [address] [id number] [place] [address] Apr, [facility] [address] [id number] [place] [address] Apr, [facility] [address] [id number] [place] [address] Apr, [facility] [address] [id number] [place] [address] Apr, [facility] [address] [id number] [place] [address] Apr, [facility] [address] [id number] [place] [address] Apr, [facility] [address] [id number] [place] [address] Apr, [facility] [address] [id number] [place] [address] Apr, [facility] [address] [id number] [place] [address] Apr, [facility] [address] [id number] [place] [address] 16 Mar, 2014 [facility] [address] [id number] [place] [address] Mar, [facility] [address] [facility] [id number] [place] [address] Mar, [facility] [address] [id number] [place] [address] Mar, [facility] [address] [id number] [place] [address] Jan, [facility] [address] [id number] [place] [address] Jan, [facility] [address] [id number] [place] [address] 18 Jan, 2014 [facility] [address] [id number] [place] [address] Jan, [facility] [address] [id number] [place] [address] Jan, [facility] [address] [id number] [place] [address] Jan, [facility] [address] [id number] [place] [address] Dec, [facility] [address] [id number] [place] [address] Dec, [facility] [address] [id number] [place] [address] Dec, [facility] [address] [id number] [place] [address] Dec, [facility] [address] [id number] [place] [address] Nov, [facility] [address] [facility] [id number] [place] [address] Nov, [facility] [address] [facility] [id number] [place] [address] Nov, [facility] [address] [id number] [place] [address] Nov, [facility] [address] [facility] [id number] [place] [address] Oct, [facility] [address] [facility] [id number] [place] [address] Oct, [facility] [address] [id number] [place] [address] Oct, [facility] [address] [id number] [place] [address] Oct, [facility] [address] [id number] [place] [address] Oct, [facility] [address] [facility] [id number] [place] [address] Oct, [facility] [address] [id number] [place] [address] Oct, [facility] [address] [id number] [place] [address] Oct, [facility] [address] [id number] [place] [address] Oct, [facility] [address] [facility] [id number] [place] [address] Oct, [facility] [address] [id number] [place] [address] September, [facility] [address] [facility] [id number] [place] [address] September, [facility] [place] [facility] [address] [id number] [place] [address] September, [facility] [place] [facility] [address] [id number] [place] [address] September, [facility] [place] [facility] [address] [id number] [place] [address] September, [facility] [place] [facility] [address] [id number] [place] [address] September, [facility] [place] [facility] [address] [id number] [place] [address] September, [facility] [place] [facility] [address] [id number] [place] [address] September, [facility] [place] [facility] [address] [id number] [place] [address] September, [facility] [place] [facility] [address] [id number] [place] [address] Aug, [facility] [place] [facility] [address] [id number] [place] [address] Aug, [facility] [place] [facility] [address] [id number] [place] [address] Aug, [facility] [place] [facility] [address] [id number] [place] [address] Aug, [facility] [place] [facility] [address] [id number] [place] [address] Aug, [facility] [place] [facility] [address] [id number] [place] [address] Aug, [facility] [place] [facility] [address] [id number] [place] [address] Aug, [facility] [place] [facility] [address] [id number] [place] [address] Aug, [facility] [place] [facility] [address] [id number] [place] [address] Jul, [facility] [place] [facility] [address] [id number] [place] [address] Jul, [facility] [place] [facility] [address] [id number] [place] [address] Jul, [facility] [place] [facility] [address] [facility] [id number] [place] [address] Jul, [facility] [place] [facility] [address] [facility] [id number] [place] [address] 24 Jul, 2013 [facility] [place] [facility] [address] [facility] [id number] [place] [address] Jul, [facility] [place] [facility] [address] [facility] [id number] [place] [address] Jul, [facility] [place] [facility] [address] [facility] [id number] [place] [address] Jul, [facility] [place] [facility] [address] [id number] [place] [address] 18 Jul, 2013 [facility] [place] [facility] [address] [id number] [place] [address] Jul, [facility] [place] [facility] [address] [id number] [place] [address] 17 Jul, 2013 [facility] [place] [facility] [address] [id number] [place] [address] Jul, [facility] [place] [facility] [address] [id number] [place] [address] Jul, [facility] [place] [facility] [address] [id number] [place] [address] Jul, [facility] [place] [facility] [address] [id number] [place] [address] 05 Jul, 2013 [facility] [place] [facility] [address] [facility] [id number] [place] [address] 10 Jul, 2013 [facility] [place] [facility] [address] [facility] [id number] [place] [address] Jul, [facility] [place] [facility] [address] [facility] [id number] [place] [address] 05 Jul, 2013 [facility] [place] [facility] [address] [id number] [place] [address] 05 Jul, 2013 [facility] [place] [facility] [address] [id number] [place] [address] 08 Jun, 2013 [facility] [place] [facility] [address] [id number] [place] [address] Jun, [facility] [place] [facility] [address] [id number] [place] [address] May, [facility] [place] [facility] [address] [id number] [place] [address] May, [facility] [place] [facility] [address] [id number] [place] [address] Apr, [facility] [place] [facility] [address] [id number] [place] [address] Apr, [facility] [place] [facility] [address] [id number] [place] [address] Apr, [facility] [place] [facility] [address] [id number] [place] [address] Apr, [facility] [place] [facility] [address] [id number] [place] [address] Apr, [facility] [place] [facility] [address] [id number] [place] [address] Apr, [facility] [place] [facility] [address] [id number] [place] [address] Mar, [facility] [place] [facility] [address] [id number] [place] [address] Mar, [facility] [place] [facility] [address] [id number] [place] [address] 15 Mar, 2013 [facility] [place] [facility] [address] [id number] [place] [address] 15 Mar, 2013 [facility] [place] [facility] [address] [id number] [place] [address] 19 Jan, 2013 [facility] [place] [facility] [address] [id number] [place] [address] 11 Jan, 2013 [facility] [place] [facility] [address] [id number] [place] [address] Jan, [facility] [place] [facility] [address] [id number] [place] [address] Dec, [facility] [place] [facility] [address] [id number] [place] [address] Dec, [facility] [place] [facility] [address] [id number] [place] [address] Dec, [facility] [place] [facility] [address] [id number] [place] [address] Dec, [facility] [place] [facility] [address] [id number] [place] [address] Nov, [facility] [place] [facility] [address] [id number] [place] [address] Nov, [facility] [place] [facility] [address] [id number] [place] [address] Nov, [facility] [place] [facility] [address] [id number] [place] [address] Oct, [facility] [place] [facility] [address] [id number] [place] [address] Oct, [facility] [place] [facility] [address] [id number] [place] [address] Oct, [facility] [place] [facility] [address] [id number] [place] [address] Oct, [facility] [place] [facility] [address] [id number] [place] [address] Oct, [facility] [place] [facility] [address] [id number] [place] [address] Oct, [facility] [place] [facility] [address] [id number] [place] [address] September, [facility] [place] [facility] [address] [id number] [place] [address] Jul, [facility] [place] [facility] [address] [id number] [place] [address] Jul, [facility] [place] [facility] [address] [id number] [place] [address] Jul, [facility] [place] [facility] [address] [facility] [id number] [place] [address] Jul, [facility] [place] [facility] [address] [id number] [place] [address] Jul, [facility] [place] [facility] [address] [id number] [place] [address] Jul, [facility] [place] [facility] [address] [id number] [place] [address] Jun, [facility] [place] [facility] [address] [facility] [id number] [place] [address] Apr, [facility] [place] [facility] [address] [id number] [place] [address] Apr, [facility] [place] [facility] [address] [id number] [place] [address] Jan, [facility] [place] [facility] [address] [id number] [place] [address] Dec, [facility] [place] [facility] [address] [id number] [place] [address] Nov, [facility] [place] [facility] [address] [id number] [place] [address] Oct, [facility] [place] [facility] [address] [id number] [place] [address] September, [facility] [place] [facility] [address] [id number] [place] [address] September, [facility] [place] [facility] [address] [id number] [place] [address] Jul, [facility] [place] [facility] [address] [id number] [place] [address] Jul, [facility] [place] [facility] [address] [id number] [place] [address] Jul, [facility] [place] [facility] [address] [id number] [place] [address] Jul, [facility] [place] [facility] [address] [id number] [place] [address] Jul, [facility] [place] [facility] [address] [id number] [place] [address] Jul, [facility] [place] [facility] [address] [id number] [place] [address] 13 Jul, 2011 [facility] [place] [facility] [address] [id number] [place] [address] Jul, [facility] [place] [facility] [address] [id number] [place] [address] 08 Jul, 2011 [facility] [place] [facility] [address] [id number] [place] [address] Jul, [facility] [place] [facility] [address] [id number] [place] [address] Jun, [facility] [place] [facility] [address] [id number] [place] [address] May, [facility] [place] [facility] [address] [id number] [place] [address] May, [facility] [place] [facility] [address] [id number] [place] [address] May, [facility] [place] [facility] [address] [id number] [place] [address] Apr, [facility] [place] [facility] [address] [id number] [place] [address] Apr, [facility] [place] [facility] [address] [id number] [place] [address] 20 Mar, 2011 [facility] [place] [facility] [address] [id number] [place] [address] 13 Mar, 2011 [facility] [place] [facility] [id number] [place] [address] 13 Mar, 2011 [facility] [place] [facility] [address] [id number] [place] [address] 13 Mar, 2011 [facility] [place] [facility] [address] [id number] [place] [address] Mar, [facility] [address] [id number] [place] [address] September, [facility] [address] [id number] [place] [address] Mar, [facility] [address] [id number] [place] [address] Dec, [facility] [address] [id number] [place] [address] May, [facility] [address] [id number] [place] [address] May, IMMUNIZATIONS No Known Immunizations SOCIAL HISTORY [...]
--- OUTSIDE RECORDS SUMMARY | 2019-10-01 10:47 | XMS REPORT ---
Author Author Samra BARCENAS Organization [facility] Address [address] [place] [address] Care Team Providers Care Software Engineer Web Applications Name Role Phone CEDRICK BARCENAS Unavailable PROBLEMS Type Condition ICD9-CM Code AVT56-CA Code Onset Dates Condition S tatus SNOMED Code Problem halfway 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.891 Active 842898603 Problem Chronic pain syndrome G89.4 Active 887581290 Problem Hypothyroidism, unspecified E03.9 Ac tive 09092496 Problem Depression, unspecified depression type F32.9 Active 71370814 Problem Major depressive disorder, recurrent episode, moderate F33.1 Active 121537804 Problem Generalized anxiety disorder F41.1 A ctive 03572457 Problem Chronic tension-type headache, intractable G44.221 Active 575121256 Problem Major depressive disorder, recurrent, unspecified F33.9 Active 39324168 Problem Anxiety F41.9 Active 63696434 Problem Primary insomnia F51.01 Active 397 2004 Problem Mixed hyperlipidemia E78.2 Active 094227724 Problem Cervical spondylosis with radiculopathy M47.22 Active 821995833 Problem Chronic migraine G43.709 Active 377 78301 Problem Other chronic pain G89.29 Active 8 7135917 Problem Grief F43.21 Active 663272055 ALLERGIES No Information ENCOUNTERS Encounter Location Date Diagnosis [facility] [address] [id number] [place] [address] 13 Jul, 2019 [facility] [address] [facility] [id number] [place] [address] Jul, [facility] [address] [id number] [place] [address] Jun, [facility] [address] [facility] [id number] [address] [place] [address] Jun, Allergic urticaria L50.0 [place] [address] [address] 15 Jun, 2019 Cervical spondylosis with radiculopathy M47.22 [place] [address] [address] 14 Jun, 2019 Hypothyroidism, unspecified E03.9 [place] [address] [address] 14 Jun, 2019 [place] [address] [address] 13 Jun, 2019 Major depressive disorder, recurrent, un specified F33.9 ; Primary insomnia F51.01 and Strain of lumbar region, 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 S39.012A [place] [address] [address] 06 Jun, 2019 Cervical spondylosis with radiculopathy M47.22 [place] [address] [address] 02 Jun, 2019 Back strain, subsequent encounter S39.01 2D [place] [address] [address] 02 Jun, 2019 [place] [address] [address] 12 May, 2019 Cervical spondylosis with radiculopathy M47.22 [place] [address] [address] Apr, [place] [address] [address] 12 Apr, 2019 Cervical spondylosis with radiculopathy M47.22 [place] [address] [address] 15 Mar, 2019 Cervical spondylosis with radiculopathy M47.22 [place] [address] [address] 20 Jan, 2019 Generalized anxiety disorder F41.1 and Sylvia kearney depressive disorder, recurrent, unspecified F33.9 [place] [address] [place] [id number] [place] [address] 16 Jan, 2019 Cervical spondylosis with radiculopathy M47.22 [place] [address] [place] [id number] [place] [address] Jan, [place] [address] [address] Jan, Major depressive disorder, recurrent epi sode, moderate F33.1 and Generalized anxiety disorder F41.1 [place] [address] [place] [id number] [place] [address] Dec, [place] [address] [address] Dec, Cervical spondylosis with radiculopathy M47.22 [place] [address] [place] [id number] [place] [address] Nov, Cervical spondylosis with radiculopathy M47.22 [place] [address] [place] [id number] [place] [address] Nov, Hypothyroidism, unspecified E03.9 [place] [address] [address] Nov, Cervical spondylosis with radiculopathy M47.22 [place] [address] [place] [id number] [place] [address] Oct, Cervical spondylosis with radiculopathy M47.22 [place] [address] [place] [id number] [place] [address] Oct, Grief F43.21 [place] [address] [place] [address] Oct, [place] [address] [place] [id number] [place] [address] Oct, Major depressive disorder, recurrent epi sode, moderate F33.1 and Chronic tension-type headache, intractable G44.221 [place] [address] [address] Oct, [facility] [address] [address] Oct, Breast cancer screening by mammogram Z12 .31 [facility] [address] [address] September, Cervical spondylosis with radiculopathy M47.22 [place] [address] [address] September, Cervical spondylosis with radiculopathy M47.22 [place] [address] [address] Aug, Chronic pain syndrome G89.4 ; Cervicalgi a M54.2 ; Chronic nonintractable headache, unspecified headache type R51 and Alopecia L65.9 [place] [address] [address] Jul, Cervical spondylosis with radiculopathy M47.22 [place] [address] [address] Jul, [place] [address] [address] Jul, Cervical spondylosis with radiculopathy M47.22 [place] [address] [address] Jul, [facility] [address] [address] Jul, Cervical spondylosis with radiculopathy M47.22 [facility] [address] [address] Jul, Cervical spondylosis with radiculopathy M47.22 [facility] [address] [address] Jul, [facility] [address] [address] Jun, Major depressive disorder, recurrent epi sode, moderate F33.1 ; Low back pain M54.5 and Other chronic pain G89.29 [place] [address] [address] Jun, [place] [address] [address] 14 Jun, 2018 Bronchitis J40 ; Mixed hyperlipidemia E7 8.2 ; Cervical spondylosis with radiculopathy M47.22 ; halfway 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.891 ; Major depressive disorder, recurrent episode, moderate F33.1 ; Hypothyroidism, unspecified E03.9 ; Low back pain M54.5 ; Other chronic pain G89.29 and Chronic tension-type headache, intractable G44.221 [place] [address] [address] 08 Jun, 2018 Cervical spondylosis with radiculopathy M47.22 [place] [address] [address] May, [place] [address] [address] May, Cervical spondylosis with radiculopathy M47.22 [facility] [place] [address] [facility] [id number] [address] [place] [address] May, Acute nasopharyngitis J00 an d Wheezing R06.2 [place] [address] [address] May, [place] [address] [address] Apr, Cervical spondylosis with radiculopathy M47.22 [place] [address] [address] Mar, Mixed hyperlipidemia E78.2 and Family hi story of stroke Z82.3 [place] [address] [address] Mar, Cervical spondylosis with radiculopathy M47.22 [place] [address] [address] 17 Mar, 2018 Hypothyroidism, unspecified E03.9 ; Cerv icalgia M54.2 and Chronic migraine G43.709 [place] [address] [address] 15 Mar, 2018 Cervical spondylosis with radiculopathy M47.22 [place] [address] [address] 08 Mar, 2018 Chronic migraine G43.709 ; Cervicalgia M 54.2 and Family history of stroke Z82.3 [place] [address] [address] 14 Jan, 2018 Cervical spondylosis with radiculopathy M47.22 [place] [address] [address] 05 Jan, 2018 Reactive airway disease that is not asth ma R09.89 [facility] [address] [facility] [id number] [address] [place] [address] Dec, Allergic dermatitis due to o ther chemical product L23.5 [place] [address] [address] Dec, Cervical spondylosis with radiculopathy M47.22 and Depression, unspecified depression type F32.9 [place] [address] [address] Oct, [place] [address] [address] Oct, [place] [address] [address] Oct, [place] [address] [address] September, Chronic pain syndrome G89.4 [place] [address] [address] September, Depression, unspecified depression type F32.9 and Cervicalgia M54.2 [place] [address] [address] September, Chronic pain syndrome G89.4 [place] [address] [place] [id number] Aug, Red stool R19.5 [place] [address] [place] [address] Aug, Depression, unspecified depression type F32.9 ; Chronic pain syndrome G89.4 ; Chronic tension-type headache, intractable G44.221 ; Red stool R19.5 ; Hypothyroidism, unspecified E03.9 and Mixed hyperlipidemia E78.2 [place] [address] [address] Jul, Major depressive disorder, recurrent epi sode, moderate F33.1 [place] [address] [address] Jul, [place] [address] [address] Jul, Hypothyroidism, unspecified E03.9 [place] [address] [address] Jul, Hypothyroidism, unspecified E03.9 [place] [address] [address] Jul, Mixed hyperlipidemia E78.2 [place] [address] [address] Jul, Mixed hyperlipidemia E78.2 [facility] [address] [facility] [id number] [address] [place] [address] Jul, Bronchitis J40 ; Cough R05 a nd Wheezing R06.2 [place] [address] [address] Jul, Major depressive disorder, recurrent epi sode, moderate F33.1 and Generalized anxiety disorder F41.1 [place] [address] [address] Jul, [place] [address] [address] Jul, Major depressive disorder, recurrent epi sode, moderate F33.1 and Generalized anxiety disorder F41.1 [place] [address] [address] Jul, Generalized anxiety disorder F41.1 and M christel depressive disorder, recurrent episode, moderate F33.1 [place] [address] [address] Jul, Mixed hyperlipidemia E78.2 [place] [address] [address] Jun, Depression, unspecified depression type F32.9 ; Cervicalgia M54.2 ; Trigger point M79.1 ; Hypothyroidism, unspecified E03.9 ; Screening, lipid Z13.220 and Mixed hyperlipidemia E78.2 [place] [address] [address] Jun, [place] [address] [address] May, [place] [address] [address] Apr, Acute bronchitis due to other specified organisms J20.8 and Tobacco abuse counseling Z71.6 [place] [address] [address] Mar, Depression, unspecified depression type F32.9 [place] [address] [address] Jan, Chronic pain syndrome G89.4 [place] [address] [address] Nov, Anxiety F41.9 ; Depression, unspecified depression type F32.9 and Chronic pain syndrome G89.4 [place] [address] [address] Oct, Anxiety F41.9 and Hypothyroidism, unspec ified E03.9 [facility] [address] [facility] [id number] [address] [place] [address] Oct, Left foot pain M79.672 and C ontusion of left foot, 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 S90.32XA [facility] [address] [address] Oct, [facility] [address] [address] September, Cervicalgia M54.2 [place] [address] [address] September, [facility] [address] [address] Aug, Cervicalgia M54.2 [facility] [address] [address] Aug, Cervicalgia M54.2 and Left arm numbness R20.0 [facility] [address] [address] Aug, [facility] [address] [address] Aug, [facility] [address] [address] Jul, [facility] [address] [address] Jul, [facility] [address] [address] Jul, [facility] [address] [address] Jul, Acute midline low back pain without scia zak M54.5 [facility] [address] [address] Jun, Acute midline low back pain without scia zak M54.5 [facility] [address] [address] Jun, Chronic pain syndrome G89.4 and Muscle s pasm M62.838 [facility] [address] [address] Jun, [facility] [address] [address] Jun, Acute midline low back pain without scia zak M54.5 [facility] [address] [address] Jun, [facility] [address] [address] May, [facility] [address] [address] May, Hypothyroidism, unspecified E03.9 ; 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 ; Hyperglycemia R73.9 ; Encounter for immunization Z23 and Mixed hyperlipidemia E78.2 [facility] [address] [address] Apr, Fatigue 780.79 [facility] [address] [address] Apr, Chronic pain syndrome G89.4 [facility] [address] [address] Mar, [facility] [address] [address] Mar, Chronic pain syndrome G89.4 [facility] [address] [address] Jan, [facility] [address] [address] Dec, [facility] [address] [address] Dec, Chronic pain syndrome G89.4 [facility] [address] [address] Dec, Trigger point M79.2 [facility] [address] [address] Nov, Chronic pain syndrome G89.4 [facility] [address] [address] Oct, Chronic pain syndrome G89.4 [facility] [address] [address] Oct, Irritant contact dermatitis due to deter gent L24.0 [place] [address] [address] September, Hypothyroidism, unspecified E03.9 and De pression, unspecified depression type F32.9 [place] [address] [address] September, Chronic pain syndrome G89.4 [place] [address] [address] Aug, [facility] [address] [address] Aug, Trigger point M79.2 [place] [address] [address] Jul, Chronic pain syndrome G89.[address] m 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.891 [place] [address] [address] Jul, Chronic pain syndrome G89.[address] m 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.891 [place] [address] [address] Jul, [place] [address] [address] Jul, [place] [address] [address] Jun, [facility] [address] [place] [address] May, [facility] [address] [address] May, [facility] [address] [address] May, [facility] [address] [address] May, Pneumonia, organism unspecified, unspeci fied laterality, unspecified part of lung J18.9 [facility] [address] [address] May, Pneumonia, organism unspecified, unspeci fied laterality, unspecified part of lung J18.9 [facility] [address] [address] Apr, [facility] [address] [address] Apr, [facility] [address] [address] Apr, [facility] [address] [address] Apr, [facility] [address] [address] Apr, [facility] [address] [address] Apr, Epigastric pain R10.13 [facility] [address] [address] Mar, Tinea pedis B35.3 and Contact dermatitis and eczema due to detergents L24.0 [facility] [address] [address] Mar, [facility] [address] [address] Jan, [facility] [address] [address] Jan, [facility] [address] [place] [id number] [place] [address] Jan, [facility] [address] [address] Dec, [facility] [address] [address] Nov, [facility] [address] [address] Nov, Fatigue 780.79 [facility] [address] [address] Nov, [facility] [address] [address] Nov, Unspecified myalgia and myositis 729.1 [facility] [address] [address] Nov, Hypercalcemia 275.42 [facility] [address] [place] [id number] [place] [address] Nov, Fatigue 780.79 ; Bradycardia 427.89 ; Ch ronic pain 338.29 and Family history of diabetes mellitus V18.0 [facility] [address] [place] [id number] [place] [address] Nov, Fatigue 780.79 ; Chronic pain 338.29 ; F amily history of diabetes mellitus V18.0 ; Bradycardia 427.89 ; Hypothyroid 244.9 and Anxiety 300.00 [facility] [address] [place] [id number] [place] [address] Oct, [facility] [address] [address] September, [facility] [address] [address] 30 Aug, 2014 [facility] [address] [address] Aug, [facility] [address] [address] Aug, [facility] [address] [id number] [place] [address] Jul, [facility] [address] [id number] [place] [address] Jul, [facility] [address] [id number] [place] [address] Jul, [facility] [address] [id number] [place] [address] Jul, [facility] [address] [id number] [place] [address] Jun, [facility] [address] [id number] [place] [address] Jun, [facility] [address] [id number] [place] [address] Jun, [facility] [address] [id number] [place] [address] Jun, [facility] [address] [id number] [place] [address] Jun, [facility] [address] [id number] [place] [address] Jun, [facility] [address] [id number] [place] [address] May, [facility] [address] [id number] [place] [address] May, [facility] [address] [id number] [place] [address] May, [facility] [address] [id number] [place] [address] May, [facility] [address] [id number] [place] [address] May, [facility] [address] [id number] [place] [address] May, [facility] [address] [id number] [place] [address] May, [facility] [address] [id number] [place] [address] May, [facility] [address] [id number] [place] [address] May, [facility] [address] [id number] [place] [address] May, [facility] [address] [id number] [place] [address] Apr, [facility] [address] [id number] [place] [address] Apr, [facility] [address] [id number] [place] [address] Apr, [facility] [address] [id number] [place] [address] Apr, [facility] [address] [id number] [place] [address] Apr, [facility] [address] [id number] [place] [address] Apr, [facility] [address] [id number] [place] [address] Apr, [facility] [address] [id number] [place] [address] Apr, [facility] [address] [id number] [place] [address] Apr, [facility] [address] [id number] [place] [address] Apr, [facility] [address] [id number] [place] [address] Apr, [facility] [address] [id number] [place] [address] Apr, [facility] [address] [id number] [place] [address] Apr, [facility] [address] [id number] [place] [address] Apr, [facility] [address] [id number] [place] [address] Apr, [facility] [address] [id number] [place] [address] 16 Mar, 2014 [facility] [address] [id number] [place] [address] Mar, [facility] [address] [facility] [place] [id number] [place] [address] Mar, [facility] [address] [id number] [place] [address] Mar, [facility] [address] [id number] [place] [address] Jan, [facility] [address] [id number] [place] [address] Jan, [facility] [address] [id number] [place] [address] 18 Jan, 2014 [facility] [address] [id number] [place] [address] Jan, [facility] [address] [id number] [place] [address] Jan, [facility] [address] [facility] [id number] [place] [address] Jan, [facility] [address] [facility] [id number] [place] [address] Dec, [facility] [address] [id number] [place] [address] Dec, [facility] [address] [facility] [id number] [place] [address] Dec, [facility] [address] [facility] [id number] [place] [address] Dec, [facility] [address] [facility] [id number] [place] [address] Nov, [facility] [address] [facility] [id number] [facility] [address] Nov, [facility] [address] [facility] [id number] [place] [address] Nov, [facility] [address] [id number] [place] [address] Nov, [facility] [address] [facility] [id number] [place] [address] Oct, [facility] [address] [facility] [id number] [place] [address] Oct, [facility] [address] [id number] [place] [address] Oct, [facility] [address] [id number] [place] [address] Oct, [facility] [address] [id number] [place] [address] Oct, [facility] [address] [facility] [id number] [place] [address] Oct, [facility] [address] [id number] [place] [address] Oct, [facility] [address] [id number] [place] [address] Oct, [facility] [address] [id number] [place] [address] Oct, [facility] [address] [facility] [id number] [place] [address] Oct, [facility] [address] [id number] [place] [address] September, [facility] [address] [facility] [id number] [place] [address] September, [facility] [address] [facility] [id number] [place] [address] September, [facility] [address] [id number] [place] [address] September, [facility] [address] [id number] [place] [address] September, [facility] [address] [id number] [place] [address] September, [facility] [address] [id number] [place] [address] September, [facility] [address] [facility] [id number] [place] [address] September, [facility] [address] [facility] [id number] [place] [address] September, [facility] [address] [facility] [id number] [place] [address] Aug, [facility] [address] [id number] [place] [address] Aug, [facility] [address] [facility] [id number] [place] [address] Aug, [facility] [address] [facility] [id number] [place] [address] Aug, [facility] [address] [facility] [id number] [place] [address] Aug, [facility] [address] [id number] [place] [address] Aug, [facility] [address] [id number] [place] [address] Aug, [facility] [address] [facility] [id number] [place] [address] Aug, [facility] [address] [facility] [id number] [place] [address] Jul, [facility] [address] [facility] [id number] [place] [address] Jul, [facility] [address] [facility] [id number] [place] [address] Jul, [facility] [address] [facility] [id number] [place] [address] Jul, [facility] [address] [facility] [id number] [place] [address] 24 Jul, 2013 [facility] [address] [facility] [id number] [place] [address] Jul, [facility] [address] [facility] [id number] [place] [address] Jul, [facility] [address] [facility] [id number] [place] [address] Jul, [facility] [address] [facility] [id number] [place] [address] 18 Jul, 2013 [facility] [address] [id number] [place] [address] Jul, [facility] [address] [facility] [id number] [place] [address] 17 Jul, 2013 [facility] [address] [facility] [id number] [place] [address] Jul, [facility] [address] [facility] [id number] [place] [address] Jul, [facility] [address] [facility] [id number] [place] [address] Jul, [facility] [address] [id number] [place] [address] 05 Jul, 2013 [facility] [address] [facility] [id number] [place] [address] 10 Jul, 2013 [facility] [address] [facility] [id number] [place] [address] Jul, [facility] [address] [facility] [id number] [place] [address] 05 Jul, 2013 [facility] [address] [facility] [id number] [place] [address] 05 Jul, 2013 [facility] [address] [facility] [id number] [place] [address] 08 Jun, 2013 [facility] [address] [facility] [id number] [place] [address] Jun, [facility] [address] [facility] [id number] [place] [address] May, [facility] [address] [facility] [id number] [place] [address] May, [facility] [address] [id number] [place] [address] Apr, [facility] [address] [id number] [place] [address] Apr, [facility] [address] [facility] [id number] [place] [address] Apr, [facility] [address] [id number] [place] [address] Apr, [facility] [address] [id number] [place] [address] Apr, [facility] [address] [facility] [id number] [place] [address] Apr, [facility] [address] [facility] [id number] [place] [address] Mar, [facility] [address] [id number] [place] [address] Mar, [facility] [address] [id number] [place] [address] 15 Mar, 2013 [facility] [address] [facility] [id number] [place] [address] 15 Mar, 2013 [facility] [address] [id number] [place] [address] 19 Jan, 2013 [facility] [address] [id number] [place] [address] 11 Jan, 2013 [facility] [address] [id number] [place] [address] Jan, [facility] [address] [id number] [place] [address] Dec, [facility] [address] [facility] [id number] [place] [address] Dec, [facility] [address] [id number] [place] [address] Dec, [facility] [address] [id number] [place] [address] Dec, [facility] [address] [id number] [place] [address] Nov, [facility] [address] [id number] [place] [address] Nov, [facility] [address] [id number] [place] [address] Nov, [facility] [address] [id number] [place] [address] Oct, [facility] [address] [id number] [place] [address] Oct, [facility] [address] [id number] [place] [address] Oct, [facility] [address] [id number] [place] [address] Oct, [facility] [address] [id number] [place] [address] Oct, [facility] [address] [id number] [place] [address] Oct, [facility] [address] [id number] [place] [address] September, [facility] [address] [id number] [place] [address] Jul, [facility] [address] [id number] [place] [address] Jul, [facility] [address] [id number] [place] [address] Jul, [facility] [address] [facility] [id number] [place] [address] Jul, [facility] [address] [id number] [place] [address] Jul, [facility] [address] [id number] [place] [address] Jul, [facility] [address] [id number] [place] [address] Jun, [facility] [address] [facility] [id number] [place] [address] Apr, [facility] [address] [id number] [place] [address] Apr, [facility] [address] [id number] [place] [address] Jan, [facility] [address] [id number] [place] [address] Dec, [facility] [address] [id number] [place] [address] Nov, [facility] [address] [id number] [place] [address] Oct, [facility] [address] [id number] [place] [address] September, [facility] [address] [id number] [place] [address] September, [facility] [address] [id number] [place] [address] Jul, [facility] [address] [id number] [place] [address] Jul, [facility] [address] [id number] [place] [address] Jul, [facility] [address] [id number] [place] [address] Jul, [facility] [address] [id number] [place] [address] Jul, [facility] [address] [id number] [place] [address] Jul, [facility] [address] [id number] [place] [address] 13 Jul, 2011 [facility] [address] [id number] [place] [address] Jul, [facility] [address] [id number] [place] [address] 08 Jul, 2011 [facility] [address] [id number] [place] [address] Jul, [facility] [address] [id number] [place] [address] Jun, [facility] [address] [id number] [place] [address] May, [facility] [address] [id number] [place] [address] May, [facility] [address] [id number] [place] [address] May, [facility] [address] [id number] [place] [address] Apr, [facility] [address] [id number] [place] [address] Apr, [facility] [address] [id number] [place] [address] 20 Mar, 2011 [facility] [address] [id number] [place] [address] 13 Mar, 2011 [facility] [id number] [place] [address] 13 Mar, 2011 [facility] [address] [id number] [place] [address] 13 Mar, 2011 [facility] [address] [facility] [id number] [place] [address] Mar, [facility] [address] [id number] [place] [address] September, [facility] [address] [facility] [id number] [place] [address] Mar, [facility] [address] [id number] [place] [address] Dec, [facility] [address] [id number] [place] [address] May, [facility] [address] [id number] [place] [address] May, IMMUNIZATIONS No Known Immunizations SOCIAL HISTORY [...]
--- OUTSIDE RECORDS SUMMARY | 2019-10-01 10:59 | XMS REPORT ---
Author Author Samra BARCENAS Organization [facility] Address [address] [place] [address] Care Team Providers Care Automation Qa Analyst Name Role Phone CEDRICK BARCENAS Unavailable PROBLEMS Type Condition ICD9-CM Code AMU28-HT Code Onset Dates Condition S tatus SNOMED Code Problem correction 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.891 Active 679711199 Problem Chronic pain syndrome G89.4 Active 241190506 Problem Hypothyroidism, unspecified E03.9 Ac tive 01187720 Problem Depression, unspecified depression type F32.9 Active 32347411 Problem Major depressive disorder, recurrent episode, moderate F33.1 Active 059816716 Problem Generalized anxiety disorder F41.1 A ctive 99767728 Problem Chronic tension-type headache, intractable G44.221 Active 023679145 Problem Major depressive disorder, recurrent, unspecified F33.9 Active 47183675 Problem Anxiety F41.9 Active 40818148 Problem Primary insomnia F51.01 Active 397 2004 Problem Mixed hyperlipidemia E78.2 Active 180412346 Problem Cervical spondylosis with radiculopathy M47.22 Active 372040558 Problem Chronic migraine G43.709 Active 377 39068 Problem Other chronic pain G89.29 Active 8 6029636 Problem Grief F43.21 Active [id number] ALLERGIES No Information ENCOUNTERS Encounter Location Date Diagnosis [facility] [address] [facility] [id number] [address] [place] [address] Aug, Cervical spondylosis with ra diculopathy M47.22 [facility] [address] [facility] [id number] [address] [place] [address] Jul, Major depressive disorder, r ecurrent episode, moderate F33.1 [facility] [address] [facility] [id number] [address] [place] [address] Jul, Cervical spondylosis with ra diculopathy M47.22 [place] [address] [facility] [id number] [address] [place] [address] 02 Jul, 2019 Pain in left knee M25.562 ; Other chronic pain G89.29 and Financial difficulties Z59.8 [place] [address] [facility] [id number] [address] [place] [id number] 20 Jul, 2019 [place] [address] [place] [id number] [address] [place] [address] Jul, Generalized anxiety disorder F41.1 and Major depressive disorder, recurrent episode, moderate F33.1 [place] [address] [place] [id number] [place] [address] 06 Jul, 2019 [place] [address] [place] [id number] [address] [place] [phone] 04 Jul, 2019 Cervical spondylosis with ra diculopathy M47.22 [place] [address] [place] [id number] [address] [place] [address] Jun, [facility] [address] [facility] [id number] [address] [place] [address] Jun, Allergic urticaria L50.0 [place] [address] [facility] [id number] [address] [place] [address] Jun, Cervical spondylosis with ra diculopathy M47.22 [place] [address] [place] [id number] [address] [place] [address] 14 Jun, 2019 Hypothyroidism, unspecified E03.9 [place] [address] [facility] [id number] [address] [place] [address] Jun, [place] [address] [place] [id number] [address] [place] [address] Jun, Major depressive disorder, r ecurrent, unspecified F33.9 ; Primary insomnia F51.01 and Strain of lumbar region, 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 S39.012A [place] [address] [place] [id number] [address] [place] [address] Jun, Cervical spondylosis with ra diculopathy M47.22 [facility] [address] [id number] [address] [place] [address] Jun, Back strain, subsequent enco unter S39.012D [facility] [address] [id number] [address] [place] [address] Jun, [facility] [address] [id number] [address] [place] [address] May, Cervical spondylosis with ra diculopathy M47.22 [facility] [address] [id number] [address] [place] [address] Apr, [facility] [address] [id number] [address] [place] [address] Apr, Cervical spondylosis with ra diculopathy M47.22 [place] [address] [id number] [address] [place] [address] Mar, Cervical spondylosis with ra diculopathy M47.22 [facility] [address] [id number] [address] [place] [address] Jan, Generalized anxiety disorder F41.1 and Major depressive disorder, recurrent, unspecified F33.9 [facility] [address] [id number] [address] [place] [id number] 16 Jan, 2019 Cervical spondylosis with ra diculopathy M47.22 [facility] [address] [id number] [address] [place] [address] Jan, [facility] [address] [id number] [address] [place] [address] 09 Jan, 2019 Major depressive disorder, r ecurrent episode, moderate F33.1 and Generalized anxiety disorder F41.1 [facility] [address] [id number] [address] [place] [address] Dec, [facility] [address] [id number] [address] [place] [address] Dec, Cervical spondylosis with ra diculopathy M47.22 [place] [address] [facility] [id number] [address] [place] [address] Nov, Cervical spondylosis with ra diculopathy M47.22 [facility] [address] [facility] [id number] [address] [place] [address] Nov, Hypothyroidism, unspecified E03.9 [place] [address] [facility] [id number] [address] [place] [address] Nov, Cervical spondylosis with ra diculopathy M47.22 [place] [address] [facility] [id number] [address] [place] [address] Oct, Cervical spondylosis with ra diculopathy M47.22 [place] [address] [facility] [id number] [address] [place] [address] Oct, Grief F43.[id number] [place] [address] Oct, [place] [address] [facility] [id number] [address] [place] [address] Oct, Major depressive disorder, r ecurrent episode, moderate F33.1 and Chronic tension-type headache, intractable G44.221 [place] [address] [facility] [id number] [address] [place] [address] Oct, [place] [address] [facility] [id number] [address] [place] [address] Oct, Breast cancer screening by domo meehan Z12.31 [place] [address] [facility] [id number] [address] [place] [address] September, Cervical spondylosis with ra diculopathy M47.22 [place] [address] [facility] [id number] [address] [place] [address] September, Cervical spondylosis with ra diculopathy M47.22 [place] [address] [facility] [id number] [address] [place] [address] Aug, Chronic pain syndrome G89.4 ; Cervicalgia M54.2 ; Chronic nonintractable headache, unspecified headache type R51 and Alopecia L65.9 [facility] [address] [facility] [id number] [address] [place] [address] Jul, Cervical spondylosis with ra diculopathy M47.22 [facility] [address] [facility] [id number] [address] [place] [address] Jul, [place] [address] [facility] [id number] [address] [place] [address] Jul, Cervical spondylosis with ra diculopathy M47.22 [place] [address] [facility] [id number] [address] [place] [address] Jul, [place] [address] [place] [id number] [address] [place] [address] Jul, Cervical spondylosis with ra diculopathy M47.22 [place] [address] [facility] [id number] [address] [place] [address] Jul, Cervical spondylosis with ra diculopathy M47.22 [place] [address] [facility] [id number] [address] [place] [address] Jul, [place] [address] [place] [id number] [address] [place] [address] Jun, Major depressive disorder, r ecurrent episode, moderate F33.1 ; Low back pain M54.5 and Other chronic pain G89.29 [place] [address] [facility] [id number] [address] [place] [address] Jun, [place] [address] [place] [id number] [address] [place] [address] Jun, Bronchitis J40 ; Mixed hyper lipidemia E78.2 ; Cervical spondylosis with radiculopathy M47.22 ; correction 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.891 ; Major depressive disorder, recurrent episode, moderate F33.1 ; Hypothyroidism, unspecified E03.9 ; Low back pain M54.5 ; Other chronic pain G89.29 and Chronic tension-type headache, intractable G44.221 [place] [address] [address] Jun, Cervical spondylosis with ra diculopathy M47.22 [place] [address] [address] May, [place] [address] [address] May, Cervical spondylosis with ra diculopathy M47.22 [facility] [place] [address] [address] May, Acute nasopharyngitis J00 an d Wheezing R06.2 [place] [address] [address] May, [place] [address] [address] Apr, Cervical spondylosis with ra diculopathy M47.22 [place] [address] [address] Mar, Mixed hyperlipidemia E78.2 a nd Family history of stroke Z82.3 [place] [address] [address] Mar, Cervical spondylosis with ra diculopathy M47.22 [place] [address] [address] 17 Mar, 2018 Hypothyroidism, unspecified E03.9 ; Cervicalgia M54.2 and Chronic migraine G43.709 [place] [address] [address] 15 Mar, 2018 Cervical spondylosis with ra diculopathy M47.22 [place] [address] [address] Mar, Chronic migraine G43.709 ; C ervicalgia M54.2 and Family history of stroke Z82.3 [facility] [address] [facility] [id number] [address] [place] [address] 14 Jan, 2018 Cervical spondylosis with ra diculopathy M47.22 [facility] [address] [facility] [id number] [address] [place] [address] 05 Jan, 2018 Reactive airway disease that is not asthma R09.89 [facility] [address] [facility] [id number] [address] [place] [address] Dec, Allergic dermatitis due to o ther chemical product L23.5 [facility] [address] [facility] [id number] [address] [place] [address] Dec, Cervical spondylosis with ra diculopathy M47.22 and Depression, unspecified depression type F32.9 [place] [address] [facility] [id number] [address] [place] [address] Oct, [facility] [address] [facility] [id number] [address] [place] [address] Oct, [place] [address] [facility] [id number] [address] [place] [address] Oct, [place] [address] [facility] [id number] [address] [place] [address] September, Chronic pain syndrome G89.4 [facility] [address] [facility] [id number] [address] [place] [address] September, Depression, unspecified depr ession type F32.9 and Cervicalgia M54.2 [place] [address] [facility] [id number] [address] [place] [address] September, Chronic pain syndrome G89.4 [place] [address] [facility] [id number] [address] [place] [address] Aug, Red stool R19.5 [place] [address] [address] 16 Aug, 2017 Depression, unspecified depr ession type F32.9 ; Chronic pain syndrome G89.4 ; Chronic tension-type headache, intractable G44.221 ; Red stool R19.5 ; Hypothyroidism, unspecified E03.9 and Mixed hyperlipidemia E78.2 [facility] [address] [address] Jul, Major depressive disorder, r ecurrent episode, moderate F33.1 [facility] [address] [address] Jul, [facility] [address] [address] Jul, Hypothyroidism, unspecified E03.9 [place] [address] [address] Jul, Hypothyroidism, unspecified E03.9 [facility] [address] [address] Jul, Mixed hyperlipidemia E78.2 [facility] [address] [address] Jul, Mixed hyperlipidemia E78.2 [facility] [address] [address] 08 Jul, 2017 Bronchitis J40 ; Cough R05 a nd Wheezing R06.2 [facility] [address] [address] Jul, Major depressive disorder, r ecurrent episode, moderate F33.1 and Generalized anxiety disorder F41.1 [facility] [address] [address] Jul, [place] [address] [address] 06 Jul, 2017 Major depressive disorder, r ecurrent episode, moderate F33.1 and Generalized anxiety disorder F41.1 [place] [address] [address] 06 Jul, 2017 Generalized anxiety disorder F41.1 and Major depressive disorder, recurrent episode, moderate F33.1 [place] [address] [address] 05 Jul, 2017 Mixed hyperlipidemia E78.2 [place] [address] [address] Jun, Depression, unspecified depr ession type F32.9 ; Cervicalgia M54.2 ; Trigger point M79.1 ; Hypothyroidism, unspecified E03.9 ; Screening, lipid Z13.220 and Mixed hyperlipidemia E78.2 [place] [address] [address] Jun, [place] [address] [address] May, [place] [address] [address] Apr, Acute bronchitis due to othe r specified organisms J20.8 and Tobacco abuse counseling Z71.6 [place] [address] [address] Mar, Depression, unspecified depr ession type F32.9 [place] [address] [address] Jan, Chronic pain syndrome G89.4 [place] [address] [address] Nov, Anxiety F41.9 ; Depression, unspecified depression type F32.9 and Chronic pain syndrome G89.4 [place] [address] [address] Oct, Anxiety F41.9 and Hypothyroi dism, unspecified E03.9 [facility] [address] [address] Oct, Left foot pain M79.672 and C ontusion of left foot, 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 S90.32XA [facility] [address] [facility] [id number] [address] [place] [address] Oct, [facility] [address] [facility] [id number] [address] [place] [address] September, Cervicalgia M54.2 [facility] [address] [facility] [id number] [address] [place] [address] September, [facility] [address] [facility] [id number] [address] [place] [address] Aug, Cervicalgia M54.2 [facility] [address] [facility] [id number] [address] [place] [address] Aug, Cervicalgia M54.2 and Left a rm numbness R20.0 [facility] [address] [facility] [id number] [address] [place] [address] Aug, [facility] [address] [facility] [id number] [address] [place] [address] Aug, [facility] [address] [facility] [id number] [address] [place] [address] Jul, [facility] [address] [facility] [id number] [address] [place] [address] Jul, [facility] [address] [facility] [id number] [address] [place] [address] Jul, [facility] [address] [facility] [id number] [address] [place] [address] Jul, Acute midline low back pain without sciatica M54.5 [facility] [address] [facility] [id number] [address] [place] [address] Jun, Acute midline low back pain without sciatica M54.5 [facility] [address] [facility] [id number] [address] [place] [address] Jun, Chronic pain syndrome G89.4 and Muscle spasm M62.838 [facility] [address] [id number] [address] [place] [address] Jun, [facility] [address] [facility] [id number] [address] [place] [address] Jun, Acute midline low back pain without sciatica M54.5 [facility] [address] [facility] [id number] [address] [place] [address] Jun, [facility] [address] [id number] [address] [place] [address] May, [facility] [address] [facility] [id number] [address] [place] [address] May, Hypothyroidism, unspecified E03.9 ; Chronic pain syndrome G89.4 ; Hyperglycemia R73.9 ; Encounter for immunization Z23 and Mixed hyperlipidemia E78.2 [facility] [address] [id number] [address] [place] [address] Apr, Fatigue 780.79 [facility] [address] [facility] [id number] [address] [place] [address] Apr, Chronic pain syndrome G89.4 [facility] [address] [id number] [address] [place] [address] Mar, [facility] [address] [id number] [address] [place] [address] Mar, Chronic pain syndrome G89.4 [facility] [address] [id number] [address] [place] [address] Jan, [facility] [address] [id number] [address] [place] [address] Dec, [facility] [address] [facility] [id number] [address] [place] [address] Dec, Chronic pain syndrome G89.4 [facility] [address] [facility] [id number] [address] [place] [address] Dec, Trigger point M79.2 [facility] [address] [id number] [address] [place] [address] Nov, Chronic pain syndrome G89.4 [facility] [address] [facility] [id number] [address] [place] [address] Oct, Chronic pain syndrome G89.4 [facility] [address] [facility] [id number] [address] [place] [address] Oct, Irritant contact dermatitis due to detergent L24.0 [facility] [address] [facility] [id number] [address] [place] [address] September, Hypothyroidism, unspecified E03.9 and Depression, unspecified depression type F32.9 [facility] [address] [facility] [id number] [address] [place] [address] September, Chronic pain syndrome G89.4 [facility] [address] [facility] [id number] [address] [place] [address] Aug, [facility] [address] [id number] [address] [place] [address] Aug, Trigger point M79.2 [facility] [address] [facility] [id number] [address] [place] [address] Jul, Chronic pain syndrome G89.4 and correction 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.891 [facility] [address] [facility] [id number] [address] [place] [address] Jul, Chronic pain syndrome G89.4 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 [facility] [address] [id number] [address] [place] [address] Jul, [facility] [address] [facility] [id number] [address] [place] [address] Jul, [facility] [address] [facility] [id number] [address] [place] [address] Jun, [facility] [address] [id number] [address] [place] [address] May, [facility] [address] [id number] [address] [place] [address] May, [facility] [address] [id number] [address] [place] [address] May, [facility] [address] [id number] [address] [place] [address] May, Pneumonia, organism unspecif ied, unspecified laterality, unspecified part of lung J18.9 [facility] [address] [id number] [address] [place] [address] May, Pneumonia, organism unspecif ied, unspecified laterality, unspecified part of lung J18.9 [facility] [address] [id number] [address] [place] [id number] Apr, [facility] [address] [id number] [address] [place] [address] Apr, [facility] [address] [id number] [address] [place] [address] Apr, [facility] [address] [facility] [id number] [address] [place] [address] Apr, [facility] [address] [id number] [address] [place] [address] Apr, [facility] [address] [id number] [address] [place] [address] Apr, Epigastric pain R10.13 [facility] [address] [id number] [address] [place] [address] Mar, Tinea pedis B35.3 and Contac t dermatitis and eczema due to detergents L24.0 [facility] [address] [id number] [address] [place] [id number] Mar, [facility] [address] [id number] [address] [place] [id number] Jan, [facility] [address] [facility] [id number] [address] [place] [phone] Jan, [facility] [address] [place] [id number] [address] [place] [id number] Jan, [facility] [address] [place] [id number] [address] [place] [id number] Dec, [facility] [address] [id number] [place] [id number] Nov, [facility] [address] [place] [id number] [address] [place] [id number] Nov, Fatigue 780.79 [facility] [id number] [place] [phone] Nov, [facility] [address] [id number] Nov, Unspecified myalgia and myos itis 729.1 [facility] [address] [place] [id number] [address] [place] [id number] Nov, Hypercalcemia 275.42 [facility] [address] [id number] [address] [place] [id number] Nov, Fatigue 780.79 ; Bradycardia 427.89 ; Chronic pain 338.29 and Family history of diabetes mellitus V18.0 [facility] [address] [id number] [address] [place] [id number] Nov, Fatigue 780.79 ; Chronic idania n 338.29 ; Family history of diabetes mellitus V18.0 ; Bradycardia 427.89 ; Hypothyroid 244.9 and Anxiety 300.00 [facility] [address] [id number] [address] [place] [phone] Oct, [facility] [address] [id number] [address] [place] [id number] September, [facility] [address] [id number] [address] [place] [id number] 30 Aug, 2014 [facility] [address] [id number] [address] [place] [address], [place] [id number] 14 Aug, 2014 [facility] [address] [id number] [address] [place] [address], [place] [id number] Aug, [facility] [address] [id number] [address] [place] [address], [place] [id number] Jul, [facility] [address] [id number] [address] [place] [address], [place] [id number] Jul, [facility] [address] [id number] [address] [place] [address], [place] [address] Jul, [facility] [address] [id number] [address] [place] [address], [place] [address] Jul, [facility] [address] [id number] [address] [place] [address], [place] [address] Jun, [facility] [address] [id number] [address] [place] [address], [place] [address] Jun, [facility] [address] [id number] [address] [place] [address], [place] [address] Jun, [facility] [address] [id number] [address] [place] [address], [place] [address] Jun, [facility] [address] [id number] [address] [place] [address], [place] [address] Jun, [facility] [address] [id number] [address] [place] [address], [place] [address] Jun, [facility] [address] [id number] [address] [place] [address], [place] [address] May, [facility] [address] [id number] [address] [place] [address], [place] [address] May, [facility] [address] [id number] [address] [place] [address], [place] [address] May, [facility] [address] [id number] [address] [place] [address], [place] [address] May, [facility] [address] [id number] [address] [place] [address], [place] [address] May, [facility] [address] [id number] [address] [place] [address], [place] [address] May, [facility] [address] [id number] [address] [place] [address], [place] [address] May, [facility] [address] [id number] [address] [place] [address], [place] [address] May, [facility] [address] [id number] [address] [place] [address], [place] [address] May, [facility] [address] [id number] [address] [place] [address], [place] [address] May, [facility] [address] [id number] [address] [place] [address], [place] [address] Apr, [facility] [address] [id number] [address] [place] [address], [place] [address] Apr, [facility] [address] [id number] [address] [place] [address], [place] [address] Apr, [facility] [address] [id number] [address] [place] [address], [place] [address] Apr, [facility] [address] [id number] [address] [place] [address], [place] [address] Apr, [facility] [address] [id number] [address] [place] [address], [place] [address] Apr, [facility] [address] [id number] [address] [place] [address], [place] [address] Apr, [facility] [address] [id number] [address] [place] [address], [place] [address] 18 Apr, 2014 [facility] [address] [id number] [address] [place] [address] [address] 17 Apr, 2014 [facility] [address] [id number] [address] [place] [address], [place] [address] 17 Apr, 2014 [facility] [address] [id number] [address] [place] [address], [place] [address] 13 Apr, 2014 [facility] [address] [id number] [address] [place] [address], [place] [address] Apr, [facility] [address] [id number] [address] [place] [address], [place] [address] 11 Apr, 2014 [facility] [address] [id number] [address] [place] [address], [place] [address] 10 Apr, 2014 [facility] [address] [id number] [address] [place] [address], [place] [address] 10 Apr, 2014 [facility] [address] [id number] [address] [place] [address], [place] [address] 16 Mar, 2014 [facility] [address] [id number] [address] [place] [address], [place] [address] 16 Mar, 2014 [facility] [address] [id number] [address] [place] [address], [place] [address] 16 Mar, 2014 [facility] [address] [id number] [address] [place] [address], [place] [address] 16 Mar, 2014 [facility] [address] [id number] [address] [place] [address], [place] [address] 19 Jan, 2013 [facility] [address] [id number] [address] [place] [address], [place] [address] 19 Jan, 2013 [facility] [address] [id number] [address] [place] [address], [place] [address] 18 Jan, 2014 [facility] [address] [id number] [address] [place] [address], [place] [address] 18 Jan, 2013 [facility] [address] [id number] [address] [place] [address], [place] [address] 02 Jan, 2013 [facility] [address] [id number] [address] [place] [address], [place] [address] Jan, [facility] [address] [id number] [address] [place] [address], [place] [address] Dec, [facility] [address] [id number] [address] [place] [address], [place] [address] Dec, [facility] [address] [id number] [address] [place] [address], [place] [address] Dec, [facility] [address] [id number] [address] [place] [address], [place] [address] Dec, [facility] [address] [id number] [address] [place] [address], [place] [address] Nov, [facility] [address] [id number] [address] [place] [address], [place] [address] Nov, [facility] [address] [id number] [address] [place] [address], [place] [address] Nov, [facility] [address] [id number] [address] [place] [address], [place] [address] Nov, [facility] [address] [id number] [address] [place] [address], [place] [address] Oct, [facility] [address] [id number] [address] [place] [address], [place] [address] Oct, [facility] [address] [id number] [address] [place] [address], [place] [address] Oct, [facility] [address] [id number] [address] [place] [address], [place] [address] Oct, [facility] [address] [id number] [address] [place] [address], [place] [address] Oct, [facility] [address] [id number] [address] [place] [address], [place] [address] Oct, [facility] [address] [id number] [address] [place] [address], [place] [address] Oct, [facility] [address] [id number] [address] [place] [address], [place] [address] Oct, [facility] [address] [id number] [address] [place] [address], [place] [address] Oct, [facility] [address] [id number] [address] [place] [address], [place] [address] Oct, [facility] [address] [id number] [address] [place] [address], [place] [address] September, [facility] [address] [id number] [address] [place] [address], [place] [address] September, [facility] [address] [id number] [address] [place] [address], [place] [address] September, [facility] [address] [id number] [address] [place] [address], [place] [address] September, [facility] [address] [id number] [address] [place] [address], [place] [address] September, [facility] [address] [id number] [address] [place] [address], [place] [address] September, [facility] [address] [id number] [address] [place] [address], [place] [address] September, [facility] [address] [id number] [address] [place] [address], [place] [address] September, [facility] [address] [id number] [address] [place] [address], [place] [address] September, [facility] [address] [id number] [address] [place] [address], [place] [address] Aug, [facility] [address] [id number] [address] [place] [address], [place] [address] Aug, [facility] [address] [id number] [address] [place] [address], [place] [address] Aug, [facility] [address] [id number] [address] [place] [address], [place] [address] 30 Aug, 2013 [facility] [address] [id number] [facility] [place] [address] Aug, [facility] [address] [id number] [address] [place] [address], [place] [address] Aug, [facility] [address] [id number] [address] [place] [address], [place] [address] Aug, [facility] [address] [id number] [address] [place] [address], [place] [address] Aug, [facility] [address] [id number] [address] [place] [address], [place] [address] Jul, [facility] [address] [id number] [address] [place] [address], [place] [address] Jul, [facility] [address] [id number] [address] [place] [address], [place] [address] Jul, [facility] [address] [id number] [address] [place] [address], [place] [address] Jul, [facility] [address] [id number] [address] [place] [address], [place] [address] Jul, [facility] [address] [id number] [address] [place] [address], [place] [address] Jul, [facility] [address] [id number] [address] [place] [address], [place] [address] Jul, [facility] [address] [id number] [address] [place] [address], [place] [address] Jul, [facility] [address] [id number] [address] [place] [address], [place] [address] 18 Jul, 2013 [facility] [address] [id number] [address] [place] [address], [place] [address] Jul, [facility] [address] [id number] [address] [place] [address], [place] [address] Jul, [facility] [address] [id number] [address] [place] [address], [place] [address] 13 Jul, 2013 [facility] [address] [id number] [address] [place] [address], [place] [address] Jul, [facility] [address] [id number] [address] [place] [address], [place] [address] Jul, [facility] [address] [id number] [address] [place] [address], [place] [address] Jul, [facility] [address] [id number] [address] [place] [address], [place] [address] Jul, [facility] [address] [id number] [address] [place] [address], [place] [address] Jul, [facility] [address] [id number] [address] [place] [address], [place] [address] Jul, [facility] [address] [id number] [address] [place] [address], [place] [address] Jul, [facility] [address] [id number] [address] [place] [address], [place] [address] Jun, [facility] [address] [id number] [address] [place] [address], [place] [address] Jun, [facility] [address] [id number] [address] [place] [address], [place] [address] May, [facility] [address] [id number] [address] [place] [address], [place] [address] May, [facility] [address] [id number] [address] [place] [address], [place] [address] Apr, [facility] [address] [id number] [address] [place] [address], [place] [address] Apr, [facility] [address] [id number] [address] [place] [address], [place] [address] Apr, [facility] [address] [id number] [address] [place] [address] [address] Apr, [facility] [address] [id number] [address] [place] [address], [place] [address] Apr, [facility] [address] [id number] [address] [place] [address], [place] [address] Apr, [facility] [address] [id number] [address] [place] [address], [place] [address] Mar, [facility] [address] [id number] [address] [place] [address], [place] [address] Mar, [facility] [address] [id number] [address] [place] [address], [place] [address] Mar, [facility] [address] [id number] [address] [place] [address], [place] [address] Mar, [facility] [address] [id number] [address] [place] [address], [place] [address] Jan, [facility] [address] [id number] [address] [place] [address], [place] [address] Jan, [facility] [address] [id number] [address] [place] [address], [place] [address] Jan, [facility] [address] [id number] [address] [place] [address], [place] [address] Dec, [facility] [address] [id number] [address] [place] [address], [place] [address] Dec, [facility] [address] [id number] [address] [place] [address] Dec, [facility] [address] [id number] [address] [place] [address], [place] [address] Dec, [facility] [address] [id number] [address] [place] [address], [place] [address] Nov, [facility] [address] [id number] [address] [place] [address], [place] [address] Nov, [facility] [address] [id number] [address] [place] [address], [place] [address] Nov, [facility] [address] [id number] [address] [place] [address], [place] [address] Oct, [facility] [address] [id number] [address] [place] [address], [place] [address] Oct, [facility] [address] [id number] [address] [place] [address], [place] [address] Oct, [facility] [address] [id number] [address] [place] [address], [place] [address] Oct, [facility] [address] [id number] [address] [place] [address], [place] [address] Oct, [facility] [address] [id number] [address] [place] [address], [place] [address] Oct, [facility] [address] [id number] [address] [place] [address], [place] [address] September, [facility] [address] [id number] [address] [place] [address], [place] [address] Jul, [facility] [address] [id number] [address] [place] [address], [place] [address] Jul, [facility] [address] [id number] [address] [place] [address], [place] [address] Jul, [facility] [address] [id number] [address] [place] [address], [place] [address] Jul, [facility] [address] [id number] [address] [place] [address], [place] [address] Jul, [facility] [address] [id number] [address] [place] [address], [place] [address] Jul, [facility] [address] [id number] [address] [place] [address], [place] [address] Jun, [facility] [address] [id number] [address] [place] [address], [place] [address] Apr, [facility] [address] [id number] [address] [place] [address], [place] [address] Apr, [facility] [address] [id number] [address] [place] [address], [place] [address] Jan, [facility] [address] [id number] [address] [place] [address], [place] [address] Dec, [facility] [address] [id number] [address] [place] [address], [place] [address] Nov, [facility] [address] [id number] [address] [place] [address], [place] [address] Oct, [facility] [address] [id number] [address] [place] [address], [place] [address] September, [facility] [address] [id number] [address] [place] [address], [place] [address] September, [facility] [address] [id number] [address] [place] [address], [place] [address] Jul, [facility] [address] [id number] [address] [place] [address], [place] [address] Jul, [facility] [address] [id number] [address] [place] [address], [place] [address] Jul, [facility] [address] [id number] [address] [place] [address], [place] [address] Jul, [facility] [address] [id number] [address] [place] [address], [place] [address] Jul, [facility] [address] [id number] [address] [place] [address], [place] [address] 17 Jul, 2011 [facility] [address] [id number] [address] [place] [address], [place] [address] 13 Jul, 2011 [facility] [address] [id number] [address] [place] [address], [place] [address] Jul, [facility] [address] [id number] [address] [place] [address], [place] [address] 08 Jul, 2011 [facility] [address] [id number] [address] [place] [address], [place] [address] Jul, [facility] [address] [id number] [address] [place] [address], [place] [address] Jun, [facility] [address] [id number] [address] [place] [address], [place] [address] May, [facility] [address] [id number] [address] [place] [address], [place] [address] May, [facility] [address] [id number] [address] [place] [address], [place] [address] May, [facility] [address] [id number] [address] [place] [address], [place] [address] Apr, [facility] [address] [id number] [address] [place] [address], [place] [address] Apr, [facility] [address] [id number] [address] [place] [address], [place] [address] Mar, [facility] [address] [id number] [address] [place] [address], [place] [address] Mar, [facility] [address] [id number] [address] [place] [address], [place] [address] Mar, [facility] [address] [id number] [address] [place] [address], [place] [id number] Mar, [facility] [address] [id number] [address] [place] [address], [place] [address] Mar, [facility] [address] [id number] [address] [place] [address], [place] [address] September, [facility] [address] [id number] [address] [place] [address], [place] [address] Mar, [facility] [address] [id number] [address] [place] [address], [place] [address] Dec, [facility] [address] [facility] [id number] [address] [place] [id number] May, [facility] [address] [facility] [id number] [address] [place] [id number] May, IMMUNIZATIONS No Known Immunizations SOCIAL HISTORY [...]
--- OUTSIDE RECORDS SUMMARY | 2019-10-01 10:59 | XMS REPORT ---
Author Author Samra BARCENAS Organization [facility] [place] Address [address] [place] [address] Care Team Providers Care Pick Out Hand Name Role Phone CEDRICK BARCENAS Unavailable PROBLEMS Type Condition ICD9-CM Code SDU80-RA Code Onset Dates Condition S tatus SNOMED Code Problem snf 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.891 Active 529625844 Problem Chronic pain syndrome G89.4 Active 066521824 Problem Hypothyroidism, unspecified E03.9 Ac tive 64794803 Problem Depression, unspecified depression type F32.9 Active 82685967 Problem Major depressive disorder, recurrent episode, moderate F33.1 Active 808189842 Problem Generalized anxiety disorder F41.1 A ctive 64005011 Problem Chronic tension-type headache, intractable G44.221 Active 530183216 Problem Major depressive disorder, recurrent, unspecified F33.9 Active 04529950 Problem Anxiety F41.9 Active 19463779 Problem Primary insomnia F51.01 Active 397 2004 Problem Mixed hyperlipidemia E78.2 Active 662041202 Problem Cervical spondylosis with radiculopathy M47.22 Active 906568559 Problem Chronic migraine G43.709 Active 377 08869 Problem Other chronic pain G89.29 Active 8 9346266 Problem Grief F43.21 Active [id number] ALLERGIES No Information ENCOUNTERS Encounter Location Date Diagnosis [facility] [place] [address] [facility] [id number] [address] [place] [id number] Aug, [facility] [place] [address] [facility] [id number] [address] [place] [id number] Aug, Cervical spondylosis with ra diculopathy M47.22 [facility] [place] [address] [facility] [id number] [address] [place] [id number] Jul, Major depressive disorder, r ecurrent episode, moderate F33.1 [place] [address] [facility] [id number] [address] [place] [phone] Jul, Cervical spondylosis with ra diculopathy M47.22 [place] [address] [facility] [id number] [address] [place] [id number] 02 Jul, 2019 Pain in left knee M25.562 ; Other chronic pain G89.29 and Financial difficulties Z59.8 [place] [address] [place] [id number] [address] [place] [id number] 20 Jul, 2019 [place] [address] [place] [id number] [address] [place] [id number] 13 Jul, 2019 Generalized anxiety disorder F41.1 and Major depressive disorder, recurrent episode, moderate F33.1 [place] [address] [place] [id number] [address] [place] [id number] 06 Jul, 2019 [place] [address] [place] [id number] [address] [place] [phone] Jul, Cervical spondylosis with ra diculopathy M47.22 [place] [address] [facility] [id number] [address] [place] [phone] Jun, [facility] [address] [facility] [id number] [address] [place] [id number] Jun, Allergic urticaria L50.0 [place] [address] [facility] [id number] [address] [place] [phone] Jun, Cervical spondylosis with ra diculopathy M47.22 [place] [address] [facility] [id number] [address] [place] [id number] Jun, Hypothyroidism, unspecified E03.9 [place] [address] [facility] [id number] [address] [place] [id number] 14 Jun, 2019 [place] [address] [facility] [id number] [address] [place] [id number] 13 Jun, 2019 Major depressive disorder, r ecurrent, unspecified F33.9 ; Primary insomnia F51.01 and Strain of lumbar region, 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 S39.012A [facility] [place] [address] [id number] [address] [place] [id number] 06 Jun, 2019 Cervical spondylosis with ra diculopathy M47.22 [facility] [place] [address] [id number] [address] [place] [id number] 02 Jun, 2019 Back strain, subsequent enco unter S39.012D [facility] [place] [address] [id number] [address] [place] [id number] Jun, [place] [address] [id number] [address] [place] [address] May, Cervical spondylosis with ra diculopathy M47.22 [place] [address] [id number] [address] [place] [id number] Apr, [place] [address] [id number] [address] [place] [id number] Apr, Cervical spondylosis with ra diculopathy M47.22 [place] [id number] [id number] [address] [place] [address] Mar, Cervical spondylosis with ra diculopathy M47.22 [place] [address] [id number] [address] [place] [phone] Jan, Generalized anxiety disorder F41.1 and Major depressive disorder, recurrent, unspecified F33.9 [place] [address] [id number] [address] [place] [id number] 16 Jan, 2019 Cervical spondylosis with ra diculopathy M47.22 [place] [id number] [id number] [address] [place] [id number] 11 Jan, 2019 [place] [address] [id number] [address] [place] [id number] 09 Jan, 2019 Major depressive disorder, r ecurrent episode, moderate F33.1 and Generalized anxiety disorder F41.1 [place] [address] [id number] [address] [place] [id number] Dec, [place] [address] [facility] [id number] [address] [place] [id number] Dec, Cervical spondylosis with ra diculopathy M47.22 [facility] [place] [address] [facility] [id number] [address] [place] [address] Nov, Cervical spondylosis with ra diculopathy M47.22 [place] [address] [facility] [id number] [address] [place] [address] Nov, Hypothyroidism, unspecified E03.9 [place] [address] [facility] [id number] [address] [place] [address] Nov, Cervical spondylosis with ra diculopathy M47.22 [place] [address] [facility] [id number] [address] [place] [address] Oct, Cervical spondylosis with ra diculopathy M47.22 [place] [address] [facility] [id number] [address] [place] [address] Oct, Grief F43.[id number] [place] [phone] Oct, [place] [address] [facility] [id number] [address] [place] [id number] Oct, Major depressive disorder, r ecurrent episode, moderate F33.1 and Chronic tension-type headache, intractable G44.221 [place] [address] [facility] [id number] [address] [place] [id number] Oct, [place] [address] [facility] [id number] [address] [place] [address] Oct, Breast cancer screening by domo meehan Z12.31 [place] [address] [facility] [id number] [address] [place] [id number] September, Cervical spondylosis with ra diculopathy M47.22 [place] [address] [facility] [id number] [address] [place] [phone] September, Cervical spondylosis with ra diculopathy M47.22 [facility] [address] [facility] [id number] [address] [place] [address] Aug, Chronic pain syndrome G89.4 ; Cervicalgia M54.2 ; Chronic nonintractable headache, unspecified headache type R51 and Alopecia L65.9 [place] [address] [facility] [id number] [address] [place] [id number] Jul, Cervical spondylosis with ra diculopathy M47.22 [place] [address] [facility] [id number] [address] [place] [address] Jul, [place] [address] [place] [id number] [address] [place] [address] Jul, Cervical spondylosis with ra diculopathy M47.22 [place] [address] [place] [id number] [address] [place] [id number] Jul, [place] [address] [place] [id number] [address] [place] [id number] Jul, Cervical spondylosis with ra diculopathy M47.22 [place] [address] [place] [id number] [address] [place] [id number] Jul, Cervical spondylosis with ra diculopathy M47.22 [place] [address] [place] [id number] [address] [place] [address] Jul, [place] [address] [place] [id number] [address] [place] [id number] Jun, Major depressive disorder, r ecurrent episode, moderate F33.1 ; Low back pain M54.5 and Other chronic pain G89.29 [facility] [address] [facility] [id number] [address] [place] [id number] Jun, [facility] [place] [address] [place] [id number] [address] [place] [id number] Jun, Bronchitis J40 ; Mixed hyper lipidemia E78.2 ; Cervical spondylosis with radiculopathy M47.22 ; 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 ; Major depressive disorder, recurrent episode, moderate F33.1 ; Hypothyroidism, unspecified E03.9 ; Low back pain M54.5 ; Other chronic pain G89.29 and Chronic tension-type headache, intractable G44.221 [place] [address] [place] [address] Jun, Cervical spondylosis with ra diculopathy M47.22 [place] [address] [address] May, [place] [address] [address] May, Cervical spondylosis with ra diculopathy M47.22 [facility] [address] [address] May, Acute nasopharyngitis J00 an d Wheezing R06.2 [place] [address] [address] May, [place] [address] [address] Apr, Cervical spondylosis with ra diculopathy M47.22 [place] [address] [address] Mar, Mixed hyperlipidemia E78.2 a nd Family history of stroke Z82.3 [place] [address] [address] Mar, Cervical spondylosis with ra diculopathy M47.22 [place] [address] [address] 17 Mar, 2018 Hypothyroidism, unspecified E03.9 ; Cervicalgia M54.2 and Chronic migraine G43.709 [place] [address] [address] Mar, Cervical spondylosis with ra diculopathy M47.22 [facility] [place] [address] [id number] [address] [place] [address] Mar, Chronic migraine G43.709 ; C ervicalgia M54.2 and Family history of stroke Z82.3 [facility] [place] [address] [id number] [address] [place] [id number] 14 Jan, 2018 Cervical spondylosis with ra diculopathy M47.22 [facility] [place] [address] [id number] [address] [place] [phone] 05 Jan, 2018 Reactive airway disease that is not asthma R09.89 [facility] [address] [facility] [id number] [address] [place] [phone] Dec, Allergic dermatitis due to o ther chemical product L23.5 [facility] [place] [address] [id number] [address] [place] [address] Dec, Cervical spondylosis with ra diculopathy M47.22 and Depression, unspecified depression type F32.9 [facility] [place] [address] [id number] [address] [place] [phone] Oct, [facility] [place] [address] [id number] [address] [place] [address] Oct, [facility] [place] [address] [facility] [id number] [address] [place] [id number] Oct, [facility] [place] [address] [id number] [address] [place] [address] September, Chronic pain syndrome G89.4 [facility] [place] [address] [id number] [address] [place] [address] September, Depression, unspecified depr ession type F32.9 and Cervicalgia M54.2 [facility] [place] [address] [id number] [address] [place] [address] September, Chronic pain syndrome G89.4 [facility] [place] [address] [id number] [address] [place] [address] Aug, Red stool R19.5 [place] [address] [place] [address] Aug, Depression, unspecified depr ession type F32.9 ; Chronic pain syndrome G89.4 ; Chronic tension-type headache, intractable G44.221 ; Red stool R19.5 ; Hypothyroidism, unspecified E03.9 and Mixed hyperlipidemia E78.2 [place] [address] [address] Jul, Major depressive disorder, r ecurrent episode, moderate F33.1 [place] [address] [address] Jul, [place] [address] [address] Jul, Hypothyroidism, unspecified E03.9 [place] [address] [address] Jul, Hypothyroidism, unspecified E03.9 [place] [address] [address] Jul, Mixed hyperlipidemia E78.2 [place] [address] [address] Jul, Mixed hyperlipidemia E78.2 [facility] [address] [address] Jul, Bronchitis J40 ; Cough R05 a nd Wheezing R06.2 [place] [address] [address] Jul, Major depressive disorder, r ecurrent episode, moderate F33.1 and Generalized anxiety disorder F41.1 [place] [address] [address] Jul, [place] [address] [address] Jul, Major depressive disorder, r ecurrent episode, moderate F33.1 and Generalized anxiety disorder F41.1 [place] [address] [address] Jul, Generalized anxiety disorder F41.1 and Major depressive disorder, recurrent episode, moderate F33.1 [place] [address] [address] Jul, Mixed hyperlipidemia E78.2 [place] [address] [address] Jun, Depression, unspecified depr ession type F32.9 ; Cervicalgia M54.2 ; Trigger point M79.1 ; Hypothyroidism, unspecified E03.9 ; Screening, lipid Z13.220 and Mixed hyperlipidemia E78.[address] [address] Jun, [place] [address] [address] May, [address] [address] Apr, Acute bronchitis due to othe r specified organisms J20.8 and Tobacco abuse counseling Z71.6 [place] [address] [address] Mar, Depression, unspecified depr ession type F32.9 [place] [address] [address] Jan, Chronic pain syndrome G89.[address] [address] Nov, Anxiety F41.9 ; Depression, unspecified depression type F32.9 and Chronic pain syndrome G89.4 [place] [address] [address] Oct, Anxiety F41.9 and Hypothyroi dism, unspecified E03.9 [facility] [address] [id number] [address] [place] [address] Oct, Left foot pain M79.672 and C ontusion of left foot, 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 S90.32XA [facility] [place] [address] [id number] [address] [place] [address] Oct, [facility] [place] [address] [id number] [address] [place] [address] September, Cervicalgia M54.2 [facility] [place] [address] [id number] [address] [place] [address] September, [facility] [place] [address] [id number] [address] [place] [address] Aug, Cervicalgia M54.2 [facility] [place] [address] [id number] [address] [place] [id number] Aug, Cervicalgia M54.2 and Left a rm numbness R20.0 [facility] [address] [facility] [id number] [address] [place] [id number] Aug, [facility] [address] [id number] [address] [place] [address] Aug, [facility] [address] [facility] [id number] [address] [place] [address] Jul, [facility] [address] [id number] [address] [place] [address] Jul, [facility] [address] [facility] [id number] [address] [place] [phone] Jul, [facility] [address] [facility] [id number] [address] [place] [id number] Jul, Acute midline low back pain without sciatica M54.5 [facility] [address] [facility] [id number] [address] [place] [address] Jun, Acute midline low back pain without sciatica M54.5 [facility] [address] [id number] [address] [place] [id number] Jun, Chronic pain syndrome G89.4 and Muscle spasm M62.838 [facility] [address] [id number] [address] [place] [address] Jun, [facility] [address] [id number] [address] [place] [id number] Jun, Acute midline low back pain without sciatica M54.5 [facility] [address] [id number] [address] [place] [phone] Jun, [facility] [address] [id number] [address] [place] [address] May, [facility] [address] [facility] [id number] [address] [place] [address] May, Hypothyroidism, unspecified E03.9 ; Chronic pain syndrome G89.4 ; Hyperglycemia R73.9 ; Encounter for immunization Z23 and Mixed hyperlipidemia E78.2 [facility] [address] [id number] [address] [place] [address] Apr, Fatigue 780.79 [facility] [address] [id number] [address] [place] [address] Apr, Chronic pain syndrome G89.4 [facility] [place] [address] [id number] [address] [place] [address] Mar, [facility] [address] [id number] [address] [place] [id number] Mar, Chronic pain syndrome G89.4 [facility] [address] [id number] [address] [place] [phone] Jan, [facility] [address] [id number] [address] [place] [id number] Dec, [facility] [address] [facility] [id number] [address] [place] [phone] Dec, Chronic pain syndrome G89.4 [facility] [address] [id number] [address] [place] [id number] Dec, Trigger point M79.2 [facility] [address] [id number] [address] [place] [id number] Nov, Chronic pain syndrome G89.4 [facility] [address] [id number] [address] [place] [address] Oct, Chronic pain syndrome G89.4 [facility] [address] [id number] [address] [place] [id number] Oct, Irritant contact dermatitis due to detergent L24.0 [facility] [address] [facility] [id number] [address] [place] [address] September, Hypothyroidism, unspecified E03.9 and Depression, unspecified depression type F32.9 [facility] [address] [facility] [id number] [address] [place] [id number] September, Chronic pain syndrome G89.4 [facility] [address] [id number] [address] [place] [phone] Aug, [facility] [address] [facility] [id number] [address] [place] [id number] Aug, Trigger point M79.2 [facility] [address] [facility] [id number] [address] [place] [id number] Jul, Chronic pain syndrome G89.4 and snf 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.891 [facility] [address] [id number] [address] [place] [address] Jul, Chronic pain syndrome G89.4 and snf 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.891 [facility] [address] [id number] [address] [place] [id number] Jul, [facility] [place] [address] [facility] [id number] [address] [place] [id number] Jul, [facility] [place] [address] [id number] [address] [place] [id number] Jun, [facility] [place] [address] [id number] [address] [place] [id number] May, [facility] [place] [address] [facility] [id number] [address] [place] [id number] May, [facility] [place] [address] [facility] [id number] [address] [place] [id number] May, [facility] [place] [address] [id number] [address] [place] [id number] May, Pneumonia, organism unspecif ied, unspecified laterality, unspecified part of lung J18.9 [facility] [place] [address] [facility] [id number] [address] [place] [id number] May, Pneumonia, organism unspecif ied, unspecified laterality, unspecified part of lung J18.9 [facility] [place] [address] [id number] [address] [place] [id number] Apr, [facility] [place] [address] [id number] [address] [place] [id number] Apr, [facility] [place] [address] [facility] [id number] [address] [place] [id number] Apr, [facility] [place] [address] [facility] [id number] [address] [place] [id number] Apr, [facility] [place] [address] [facility] [id number] [address] [place] [id number] Apr, [facility] [place] [address] [facility] [id number] [address] [place] [address] Apr, Epigastric pain R10.13 [facility] [place] [address] [facility] [id number] [address] [place] [address] Mar, Tinea pedis B35.3 and Contac t dermatitis and eczema due to detergents L24.0 [facility] [place] [address] [facility] [id number] [address] [place] [phone] Mar, [facility] [place] [address] [facility] [id number] [address] [place] [phone] Jan, [facility] [place] [address] [facility] [id number] [address] [place] [phone] Jan, [facility] [place] [address] [facility] [id number] [address] [place] [phone] Jan, [facility] [place] [address] [place] [id number] [place] [address] Dec, [facility] [place] [address] [place] [id number] [address] [place] [id number] Nov, [facility] [place] [address] [place] [id number] [place] [phone] Nov, Fatigue 780.79 [facility] [place] [address] [address] Nov, [facility] [place] [address] [place] [id number] [address] [place] [address] Nov, Unspecified myalgia and myos itis 729.1 [facility] [place] [address] [place] [id number] [address] [place] [address] Nov, Hypercalcemia 275.42 [facility] [place] [address] [place] [id number] [address] [place] [address] Nov, Fatigue 780.79 ; Bradycardia 427.89 ; Chronic pain 338.29 and Family history of diabetes mellitus V18.0 [facility] [place] [address] [place] [id number] [address] [place] [id number] Nov, Fatigue 780.79 ; Chronic idania n 338.29 ; Family history of diabetes mellitus V18.0 ; Bradycardia 427.89 ; Hypothyroid 244.9 and Anxiety 300.00 [facility] [place] [address] [place] [id number] [address] [place] [phone] Oct, [facility] [place] [address] [place] [id number] [place] [phone] September, [facility] [address] [id number] [address] [place] [address], [place] [address] Aug, [facility] [address] [id number] [address] [place] [address], [place] [address] Aug, [facility] [address] [id number] [address] [place] [address], [place] [address] Aug, [facility] [address] [id number] [address] [place] [address], [place] [address] Jul, [facility] [address] [id number] [address] [place] [address], [place] [address] Jul, [facility] [address] [id number] [address] [place] [address], [place] [address] Jul, [facility] [address] [id number] [address] [place] [address], [place] [address] Jul, [facility] [address] [id number] [address] [place] [address], [place] [address] Jun, [facility] [address] [id number] [address] [place] [address], [place] [address] Jun, [facility] [address] [id number] [address] [place] [address], [place] [address] Jun, [facility] [address] [id number] [address] [place] [address], [place] [address] Jun, [facility] [address] [id number] [address] [place] [address], [place] [address] Jun, [facility] [address] [id number] [address] [place] [address], [place] [address] Jun, [facility] [address] [id number] [address] [place] [address], [place] [address] May, [facility] [address] [id number] [address] [place] [address], [place] [address] May, [facility] [address] [id number] [address] [place] [address], [place] [address] May, [facility] [address] [id number] [address] [place] [address], [place] [address] May, [facility] [address] [id number] [address] [place] [address], [place] [address] 15 May, 2014 [facility] [address] [id number] [address] [place] [address], [place] [address] 15 May, 2014 [facility] [address] [id number] [address] [place] [address], [place] [address] May, [facility] [address] [id number] [address] [place] [address], [place] [address] May, [facility] [address] [id number] [address] [place] [address], [place] [address] May, [facility] [address] [id number] [address] [place] [address], [place] [address] May, [facility] [address] [id number] [address] [place] [address], [place] [address] Apr, [facility] [address] [id number] [address] [place] [address], [place] [address] Apr, [facility] [address] [id number] [address] [place] [address], [place] [address] Apr, [facility] [address] [id number] [address] [place] [address], [place] [address] Apr, [facility] [address] [id number] [address] [place] [address], [place] [address] Apr, [facility] [address] [id number] [address] [place] [address], [place] [address] Apr, [facility] [address] [id number] [address] [place] [address], [place] [address] 18 Apr, 2014 [facility] [address] [id number] [address] [place] [address] [address] 18 Apr, 2014 [facility] [address] [id number] [address] [place] [address], [place] [address] 17 Apr, 2014 [facility] [address] [id number] [address] [place] [address], [place] [address] 17 Apr, 2014 [facility] [address] [id number] [address] [place] [address], [place] [address] 13 Apr, 2014 [facility] [address] [id number] [address] [place] [address], [place] [address] 13 Apr, 2014 [facility] [address] [id number] [address] [place] [address], [place] [address] 11 Apr, 2014 [facility] [address] [id number] [address] [place] [address], [place] [address] 10 Apr, 2014 [facility] [address] [id number] [address] [place] [address], [place] [address] 10 Apr, 2014 [facility] [address] [id number] [address] [place] [address], [place] [address] 16 Mar, 2014 [facility] [address] [id number] [address] [place] [address], [place] [address] 16 Mar, 2014 [facility] [address] [id number] [address] [place] [address], [place] [address] 16 Mar, 2014 [facility] [address] [id number] [address] [place] [address], [place] [address] 16 Mar, 2014 [facility] [address] [id number] [address] [place] [address] 19 Jan, 2014 [facility] [address] [id number] [address] [place] [address], [place] [address] 19 Jan, 2014 [facility] [address] [id number] [address] [place] [address], [place] [address] 18 Jan, 2014 [facility] [address] [id number] [address] [place] [address], [place] [address] 18 Jan, 2014 [facility] [address] [id number] [address] [place] [address], [place] [address] Jan, [facility] [address] [id number] [address] [place] [address], [place] [address] Jan, [facility] [address] [id number] [address] [place] [address], [place] [address] Dec, [facility] [address] [id number] [address] [place] [address], [place] [address] Dec, [facility] [address] [id number] [address] [place] [address], [place] [address] Dec, [facility] [address] [id number] [address] [place] [address], [place] [address] Dec, [facility] [address] [id number] [address] [place] [address], [place] [address] Nov, [facility] [address] [id number] [address] [place] [address], [place] [address] Nov, [facility] [address] [id number] [address] [place] [address], [place] [address] Nov, [facility] [address] [id number] [address] [place] [address], [place] [address] Nov, [facility] [address] [id number] [address] [place] [address], [place] [address] Oct, [facility] [address] [id number] [address] [place] [address], [place] [address] Oct, [facility] [address] [id number] [address] [place] [address], [place] [address] Oct, [facility] [address] [id number] [address] [place] [address], [place] [address] Oct, [facility] [address] [id number] [address] [place] [address], [place] [address] Oct, [facility] [address] [id number] [address] [place] [address], [place] [address] Oct, [facility] [address] [id number] [address] [place] [address], [place] [address] Oct, [facility] [address] [id number] [address] [place] [address], [place] [address] Oct, [facility] [address] [id number] [address] [place] [address], [place] [address] Oct, [facility] [address] [id number] [address] [place] [address], [place] [address] Oct, [facility] [address] [id number] [address] [place] [address], [place] [address] September, [facility] [address] [id number] [address] [place] [address], [place] [address] September, [facility] [address] [id number] [address] [place] [address], [place] [address] September, [facility] [address] [id number] [address] [place] [address], [place] [address] September, [facility] [address] [id number] [address] [place] [address], [place] [address] September, [facility] [address] [id number] [address] [place] [address], [place] [address] September, [facility] [address] [id number] [address] [place] [address], [place] [address] September, [facility] [address] [id number] [address] [place] [address], [place] [address] September, [facility] [address] [id number] [address] [place] [address], [place] [address] September, [facility] [address] [id number] [address] [place] [address], [place] [address] Aug, [facility] [address] [id number] [address] [place] [address], [place] [address] Aug, [facility] [address] [id number] [address] [place] [address], [place] [address] Aug, [facility] [address] [id number] [facility] [place] [address] Aug, [facility] [address] [id number] [address] [place] [address], [place] [address] Aug, [facility] [address] [id number] [address] [place] [address], [place] [address] Aug, [facility] [address] [id number] [address] [place] [address], [place] [address] Aug, [facility] [address] [id number] [address] [place] [address], [place] [address] Aug, [facility] [address] [id number] [address] [place] [address], [place] [address] Jul, [facility] [address] [id number] [address] [place] [address], [place] [address] Jul, [facility] [address] [id number] [address] [place] [address], [place] [address] Jul, [facility] [address] [id number] [address] [place] [address], [place] [address] Jul, [facility] [address] [id number] [address] [place] [address], [place] [address] Jul, [facility] [address] [id number] [address] [place] [address], [place] [address] Jul, [facility] [address] [id number] [address] [place] [address], [place] [address] Jul, [facility] [address] [id number] [address] [place] [address], [place] [address] 18 Jul, 2013 [facility] [address] [id number] [address] [place] [address], [place] [address] Jul, [facility] [address] [id number] [address] [place] [address], [place] [address] 17 Jul, 2013 [facility] [address] [id number] [address] [place] [address], [place] [address] 17 Jul, 2013 [facility] [address] [id number] [address] [place] [address], [place] [address] Jul, [facility] [address] [id number] [address] [place] [address], [place] [address] Jul, [facility] [address] [id number] [address] [place] [address], [place] [address] 05 Jul, 2013 [facility] [address] [id number] [address] [place] [address], [place] [address] Jul, [facility] [address] [id number] [address] [place] [address], [place] [address] Jul, [facility] [address] [id number] [address] [place] [address], [place] [address] Jul, [facility] [address] [id number] [address] [place] [address], [place] [address] Jul, [facility] [address] [id number] [address] [place] [address], [place] [address] Jul, [facility] [address] [id number] [address] [place] [address], [place] [address] Jun, [facility] [address] [id number] [address] [place] [address], [place] [address] Jun, [facility] [address] [id number] [address] [place] [address], [place] [address] May, [facility] [address] [id number] [address] [place] [address], [place] [address] May, [facility] [address] [id number] [address] [place] [address], [place] [address] Apr, [facility] [address] [id number] [address] [place] [address], [place] [address] Apr, [facility] [address] [id number] [address] [place] [address] [address] Apr, [facility] [address] [id number] [address] [place] [address], [place] [address] Apr, [facility] [address] [id number] [address] [place] [address], [place] [address] Apr, [facility] [address] [id number] [address] [place] [address], [place] [address] Apr, [facility] [address] [id number] [address] [place] [address], [place] [address] Mar, [facility] [address] [id number] [address] [place] [address], [place] [address] Mar, [facility] [address] [id number] [address] [place] [address], [place] [address] Mar, [facility] [address] [id number] [address] [place] [address], [place] [address] Mar, [facility] [address] [id number] [address] [place] [address], [place] [address] Jan, [facility] [address] [id number] [address] [place] [address], [place] [address] Jan, [facility] [address] [id number] [address] [place] [address], [place] [address] Jan, [facility] [address] [id number] [address] [place] [address], [place] [address] Dec, [facility] [address] [id number] [address] [place] [address], [place] [address] Dec, [facility] [address] [id number] [address] [place] [address], [place] [address] Dec, [facility] [address] [id number] [address] [place] [address], [place] [address] Dec, [facility] [address] [id number] [address] [place] [address], [place] [address] Nov, [facility] [address] [id number] [facility] [place] [address] Nov, [facility] [address] [id number] [address] [place] [address], [place] [address] Nov, [facility] [address] [id number] [address] [place] [address], [place] [address] Oct, [facility] [address] [id number] [address] [place] [address], [place] [address] Oct, [facility] [address] [id number] [address] [place] [address], [place] [address] Oct, [facility] [address] [id number] [address] [place] [address], [place] [address] Oct, [facility] [address] [id number] [address] [place] [address], [place] [address] Oct, [facility] [address] [id number] [address] [place] [address], [place] [address] Oct, [facility] [address] [id number] [address] [place] [address], [place] [address] September, [facility] [address] [id number] [address] [place] [address], [place] [address] Jul, [facility] [address] [id number] [address] [place] [address], [place] [address] Jul, [facility] [address] [id number] [address] [place] [address], [place] [address] Jul, [facility] [address] [id number] [address] [place] [address], [place] [address] Jul, [facility] [address] [id number] [address] [place] [address], [place] [address] Jul, [facility] [address] [id number] [address] [place] [address], [place] [address] Jul, [facility] [address] [id number] [address] [place] [address], [place] [address] Jun, [facility] [address] [id number] [address] [place] [address], [place] [address] Apr, [facility] [address] [id number] [address] [place] [address], [place] [address] Apr, [facility] [address] [id number] [address] [place] [address], [place] [address] Jan, [facility] [address] [id number] [address] [place] [address], [place] [address] Dec, [facility] [address] [id number] [address] [place] [address], [place] [address] Nov, [facility] [address] [id number] [address] [place] [address], [place] [address] Oct, [facility] [address] [id number] [address] [place] [address], [place] [address] September, [facility] [address] [id number] [address] [place] [address], [place] [address] September, [facility] [address] [id number] [address] [place] [address], [place] [address] Jul, [facility] [address] [id number] [address] [place] [address], [place] [address] Jul, [facility] [address] [id number] [address] [place] [address], [place] [address] Jul, [facility] [address] [id number] [address] [place] [address], [place] [address] Jul, [facility] [address] [id number] [address] [place] [address], [place] [address] Jul, [facility] [address] [id number] [address] [place] [address], [place] [address] 17 Jul, 2011 [facility] [address] [id number] [address] [place] [address], [place] [address] Jul, [facility] [address] [id number] [address] [place] [address], [place] [address] 11 Jul, 2011 [facility] [address] [id number] [address] [place] [address], [place] [address] 08 Jul, 2011 [facility] [address] [id number] [address] [place] [address], [place] [address] 07 Jul, 2011 [facility] [address] [id number] [address] [place] [address], [place] [address] Jun, [facility] [address] [id number] [address] [place] [address], [place] [address] May, [facility] [address] [id number] [address] [place] [address], [place] [address] May, [facility] [address] [id number] [address] [place] [address], [place] [address] May, [facility] [address] [id number] [address] [place] [address], [place] [address] Apr, [facility] [address] [id number] [address] [place] [address], [place] [address] Apr, [facility] [address] [id number] [address] [place] [address], [place] [address] Mar, [facility] [address] [id number] [address] [place] [address] Mar, [facility] [address] [id number] [address] [place] [address], [place] [address] Mar, [facility] [address] [id number] [address] [place] [address] Mar, [facility] [address] [id number] [address] [place] [address] Mar, [facility] [address] [id number] [address] [place] [address], [place] [address] September, [facility] [address] [id number] [address] [place] [id number] Mar, [facility] [place] [address] [facility] [id number] [address] [place] [address] Dec, [facility] [place] [address] [facility] [id number] [address] [place] [phone] May, [facility] [place] [address] [facility] [id number] [address] [place] [phone] May, IMMUNIZATIONS No Known Immunizations SOCIAL HISTORY [...]
--- OUTSIDE RECORDS SUMMARY | 2019-10-01 11:00 | XMS REPORT ---
Author Author Samra BARCENAS Organization [facility] Address [address] [place] [address] Care Team Providers Care Retail Route Supervisor Name Role Phone CEDRICK BARCENAS Unavailable PROBLEMS Type Condition ICD9-CM Code RPI58-HG Code Onset Dates Condition S tatus SNOMED Code Problem correction 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.891 Active 441517002 Problem Chronic pain syndrome G89.4 Active 279938665 Problem Hypothyroidism, unspecified E03.9 Ac tive 00033803 Problem Depression, unspecified depression type F32.9 Active 22705813 Problem Major depressive disorder, recurrent episode, moderate F33.1 Active 617619272 Problem Generalized anxiety disorder F41.1 A ctive 40381016 Problem Chronic tension-type headache, intractable G44.221 Active 636493585 Problem Major depressive disorder, recurrent, unspecified F33.9 Active 38573888 Problem Anxiety F41.9 Active 64095120 Problem Primary insomnia F51.01 Active 397 2004 Problem Mixed hyperlipidemia E78.2 Active 636261622 Problem Cervical spondylosis with radiculopathy M47.22 Active 666301662 Problem Chronic migraine G43.709 Active 377 73111 Problem Other chronic pain G89.29 Active 8 3305255 Problem Grief F43.21 Active [id number] ALLERGIES No Information ENCOUNTERS Encounter Location Date Diagnosis [facility] [address] [facility] [id number] [address] [place] [address] Aug, [facility] [address] [facility] [id number] [address] [place] [id number] 17 Jul, 2019 Major depressive disorder, r ecurrent episode, moderate F33.1 [facility] [address] [facility] [id number] [address] [place] [address] Jul, Cervical spondylosis with ra diculopathy M47.22 [place] [address] [place] [address] 02 Jul, 2019 Pain in left knee M25.562 ; Other chronic pain G89.29 and Financial difficulties Z59.8 [place] [address] [place] [address] 20 Jul, 2019 [place] [address] [address] 13 Jul, 2019 Generalized anxiety disorder F41.1 and Major depressive disorder, recurrent episode, moderate F33.1 [place] [address] [place] [address] 06 Jul, 2019 [place] [address] [place] [address] 04 Jul, 2019 Cervical spondylosis with ra diculopathy M47.22 [place] [address] [address] Jun, [facility] [address] [place] [id number] [address] [place] [address] Jun, Allergic urticaria L50.0 [place] [address] [place] [id number] [place] [address] 15 Jun, 2019 Cervical spondylosis with ra diculopathy M47.22 [place] [address] [place] [address] 14 Jun, 2019 Hypothyroidism, unspecified E03.9 [place] [address] [place] [id number] [address] [place] [address] Jun, [place] [address] [place] [address] Jun, Major depressive disorder, r ecurrent, unspecified F33.9 ; Primary insomnia F51.01 and Strain of lumbar region, 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 S39.012A [place] [address] [address] Jun, Cervical spondylosis with ra diculopathy M47.22 [facility] [address] [id number] [address] [place] [address] Jun, Back strain, subsequent enco unter S39.012D [facility] [address] [id number] [address] [place] [address] Jun, [facility] [address] [id number] [address] [place] [address] May, Cervical spondylosis with ra diculopathy M47.22 [facility] [address] [id number] [address] [place] [address] Apr, [facility] [address] [id number] [address] [place] [address] Apr, Cervical spondylosis with ra diculopathy M47.22 [place] [address] [id number] [address] [place] [address] Mar, Cervical spondylosis with ra diculopathy M47.22 [place] [address] [id number] [address] [place] [address] Jan, Generalized anxiety disorder F41.1 and Major depressive disorder, recurrent, unspecified F33.9 [place] [address] [id number] [address] [place] [address] Jan, Cervical spondylosis with ra diculopathy M47.22 [facility] [address] [id number] [address] [place] [address] Jan, [facility] [address] [id number] [address] [place] [address] 09 Jan, 2019 Major depressive disorder, r ecurrent episode, moderate F33.1 and Generalized anxiety disorder F41.1 [facility] [address] [id number] [address] [place] [address] Dec, [facility] [address] [id number] [address] [place] [address] Dec, Cervical spondylosis with ra diculopathy M47.22 [facility] [address] [id number] [address] [place] [address] Nov, Cervical spondylosis with ra diculopathy M47.22 [facility] [address] [facility] [id number] [address] [place] [address] Nov, Hypothyroidism, unspecified E03.9 [facility] [address] [facility] [id number] [address] [place] [address] Nov, Cervical spondylosis with ra diculopathy M47.22 [facility] [address] [facility] [id number] [address] [place] [address] Oct, Cervical spondylosis with ra diculopathy M47.22 [place] [address] [facility] [id number] [address] [place] [address] Oct, Grief F43.[id number] [place] [address] Oct, [facility] [address] [facility] [id number] [address] [place] [address] Oct, Major depressive disorder, r ecurrent episode, moderate F33.1 and Chronic tension-type headache, intractable G44.221 [place] [address] [facility] [id number] [address] [place] [address] Oct, [place] [address] [facility] [id number] [address] [place] [address] Oct, Breast cancer screening by domo meehan Z12.31 [facility] [address] [facility] [id number] [address] [place] [address] September, Cervical spondylosis with ra diculopathy M47.22 [facility] [address] [facility] [id number] [address] [place] [address] September, Cervical spondylosis with ra diculopathy M47.22 [place] [address] [facility] [id number] [address] [place] [address] Aug, Chronic pain syndrome G89.4 ; Cervicalgia M54.2 ; Chronic nonintractable headache, unspecified headache type R51 and Alopecia L65.9 [place] [address] [facility] [id number] [address] [place] [address] Jul, Cervical spondylosis with ra diculopathy M47.22 [place] [address] [facility] [id number] [address] [place] [address] Jul, [place] [address] [facility] [id number] [address] [place] [address] Jul, Cervical spondylosis with ra diculopathy M47.22 [place] [address] [facility] [id number] [address] [place] [address] Jul, [place] [address] [facility] [id number] [address] [place] [address] Jul, Cervical spondylosis with ra diculopathy M47.22 [place] [address] [facility] [id number] [address] [place] [address] Jul, Cervical spondylosis with ra diculopathy M47.22 [place] [address] [facility] [id number] [address] [place] [address] Jul, [place] [address] [place] [id number] [address] [place] [address] Jun, Major depressive disorder, r ecurrent episode, moderate F33.1 ; Low back pain M54.5 and Other chronic pain G89.29 [place] [address] [facility] [id number] [address] [place] [address] Jun, [place] [address] 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 ; Major depressive disorder, recurrent episode, moderate F33.1 ; Hypothyroidism, unspecified E03.9 ; Low back pain M54.5 ; Other chronic pain G89.29 and Chronic tension-type headache, intractable G44.221 [place] [address] [address] Jun, Cervical spondylosis with ra diculopathy M47.22 [place] [address] [address] May, [place] [address] [address] May, Cervical spondylosis with ra diculopathy M47.22 [facility] [place] [address] [address] May, Acute nasopharyngitis J00 an d Wheezing R06.2 [place] [address] [address] May, [place] [address] [address] Apr, Cervical spondylosis with ra diculopathy M47.22 [place] [address] [address] Mar, Mixed hyperlipidemia E78.2 a nd Family history of stroke Z82.3 [place] [address] [address] Mar, Cervical spondylosis with ra diculopathy M47.22 [place] [address] [address] 17 Mar, 2018 Hypothyroidism, unspecified E03.9 ; Cervicalgia M54.2 and Chronic migraine G43.709 [place] [address] [address] 15 Mar, 2018 Cervical spondylosis with ra diculopathy M47.22 [place] [address] [address] Mar, Chronic migraine G43.709 ; C ervicalgia M54.2 and Family history of stroke Z82.3 [facility] [address] [facility] [id number] [address] [place] [address] 14 Jan, 2018 Cervical spondylosis with ra diculopathy M47.22 [facility] [address] [facility] [id number] [address] [place] [address] Jan, Reactive airway disease that is not asthma R09.89 [facility] [address] [facility] [id number] [address] [place] [address] Dec, Allergic dermatitis due to o ther chemical product L23.5 [facility] [address] [facility] [id number] [address] [place] [address] Dec, Cervical spondylosis with ra diculopathy M47.22 and Depression, unspecified depression type F32.9 [facility] [address] [facility] [id number] [address] [place] [address] Oct, [facility] [address] [facility] [id number] [address] [place] [address] Oct, [facility] [address] [facility] [id number] [address] [place] [address] Oct, [facility] [address] [facility] [id number] [address] [place] [address] September, Chronic pain syndrome G89.4 [facility] [address] [facility] [id number] [address] [place] [address] September, Depression, unspecified depr ession type F32.9 and Cervicalgia M54.2 [facility] [address] [facility] [id number] [address] [place] [address] September, Chronic pain syndrome G89.4 [facility] [address] [facility] [id number] [address] [place] [address] Aug, Red stool R19.5 [facility] [address] [facility] [id number] [address] [place] [address] Aug, Depression, unspecified depr ession type F32.9 ; Chronic pain syndrome G89.4 ; Chronic tension-type headache, intractable G44.221 ; Red stool R19.5 ; Hypothyroidism, unspecified E03.9 and Mixed hyperlipidemia E78.2 [place] [address] [address] Jul, Major depressive disorder, r ecurrent episode, moderate F33.1 [facility] [address] [address] Jul, [facility] [address] [address] Jul, Hypothyroidism, unspecified E03.9 [place] [address] [address] Jul, Hypothyroidism, unspecified E03.9 [facility] [address] [address] Jul, Mixed hyperlipidemia E78.2 [facility] [address] [address] Jul, Mixed hyperlipidemia E78.2 [facility] [address] [address] Jul, Bronchitis J40 ; Cough R05 a nd Wheezing R06.2 [facility] [address] [address] Jul, Major depressive disorder, r ecurrent episode, moderate F33.1 and Generalized anxiety disorder F41.1 [place] [address] [address] Jul, [place] [address] [address] Jul, Major depressive disorder, r ecurrent episode, moderate F33.1 and Generalized anxiety disorder F41.1 [place] [address] [place] [address] Jul, Generalized anxiety disorder F41.1 and Major depressive disorder, recurrent episode, moderate F33.1 [place] [address] [address] Jul, Mixed hyperlipidemia E78.2 [place] [address] [address] Jun, Depression, unspecified depr ession type F32.9 ; Cervicalgia M54.2 ; Trigger point M79.1 ; Hypothyroidism, unspecified E03.9 ; Screening, lipid Z13.220 and Mixed hyperlipidemia E78.2 [place] [address] [address] Jun, [place] [address] [address] May, [place] [address] [address] Apr, Acute bronchitis due to othe r specified organisms J20.8 and Tobacco abuse counseling Z71.6 [place] [address] [address] Mar, Depression, unspecified depr ession type F32.9 [place] [address] [address] Jan, Chronic pain syndrome G89.4 [place] [address] [address] Nov, Anxiety F41.9 ; Depression, unspecified depression type F32.9 and Chronic pain syndrome G89.4 [place] [address] [address] Oct, Anxiety F41.9 and Hypothyroi dism, unspecified E03.9 [facility] [address] [address] 05 [place], 2017 Left foot pain M79.672 and C ontusion of left foot, 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 S90.32XA [facility] [address] [id number] [address] [place] [address] Oct, [facility] [address] [facility] [id number] [address] [place] [address] September, Cervicalgia M54.2 [facility] [address] [facility] [id number] [address] [place] [address] September, [facility] [address] [id number] [address] [place] [address] Aug, Cervicalgia M54.2 [facility] [address] [facility] [id number] [address] [place] [address] Aug, Cervicalgia M54.2 and Left a rm numbness R20.0 [facility] [address] [facility] [id number] [address] [place] [address] Aug, [facility] [address] [facility] [id number] [address] [place] [address] Aug, [facility] [address] [facility] [id number] [address] [place] [address] Jul, [facility] [address] [facility] [id number] [address] [place] [address] Jul, [facility] [address] [facility] [id number] [address] [place] [address] Jul, [facility] [address] [facility] [id number] [address] [place] [address] Jul, Acute midline low back pain without sciatica M54.5 [facility] [address] [facility] [id number] [address] [place] [address] Jun, Acute midline low back pain without sciatica M54.5 [facility] [address] [facility] [id number] [address] [place] [address] Jun, Chronic pain syndrome G89.4 and Muscle spasm M62.838 [facility] [address] [id number] [address] [place] [address] Jun, [facility] [address] [id number] [address] [place] [address] Jun, Acute midline low back pain without sciatica M54.5 [facility] [address] [id number] [address] [place] [address] Jun, [facility] [address] [id number] [address] [place] [address] May, [facility] [address] [id number] [address] [place] [address] May, Hypothyroidism, unspecified E03.9 ; Chronic pain syndrome G89.4 ; Hyperglycemia R73.9 ; Encounter for immunization Z23 and Mixed hyperlipidemia E78.2 [facility] [address] [facility] [id number] [address] [place] [address] Apr, Fatigue 780.79 [facility] [address] [id number] [address] [place] [address] Apr, Chronic pain syndrome G89.4 [facility] [address] [facility] [id number] [address] [place] [address] Mar, [facility] [address] [facility] [id number] [address] [place] [address] Mar, Chronic pain syndrome G89.4 [facility] [address] [id number] [address] [place] [address] Jan, [facility] [address] [facility] [id number] [address] [place] [address] Dec, [facility] [address] [facility] [id number] [address] [place] [address] Dec, Chronic pain syndrome G89.4 [facility] [address] [facility] [id number] [address] [place] [address] Dec, Trigger point M79.2 [facility] [address] [id number] [address] [place] [address] Nov, Chronic pain syndrome G89.4 [facility] [address] [id number] [address] [place] [address] Oct, Chronic pain syndrome G89.4 [facility] [address] [facility] [id number] [address] [place] [address] Oct, Irritant contact dermatitis due to detergent L24.0 [facility] [address] [facility] [id number] [address] [place] [address] September, Hypothyroidism, unspecified E03.9 and Depression, unspecified depression type F32.9 [facility] [address] [facility] [id number] [address] [place] [address] September, Chronic pain syndrome G89.4 [facility] [address] [facility] [id number] [address] [place] [address] Aug, [facility] [address] [id number] [address] [place] [address] Aug, Trigger point M79.2 [facility] [address] 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 [id number] [address] [place] [address] Jul, [facility] [address] [facility] [id number] [address] [place] [id number] Jun, [facility] [address] [facility] [id number] [address] [place] [phone] May, [facility] [address] [id number] [address] [place] [phone] May, [facility] [address] [id number] [address] [place] [id number] May, [facility] [address] [id number] [address] [place] [id number] May, Pneumonia, organism unspecif ied, unspecified laterality, unspecified part of lung J18.9 [facility] [address] [id number] [address] [place] [id number] May, Pneumonia, organism unspecif ied, unspecified laterality, unspecified part of lung J18.9 [facility] [address] [id number] [address] [place] [id number] Apr, [facility] [address] [id number] [address] [place] [id number] Apr, [facility] [address] [id number] [address] [place] [phone] Apr, [facility] [address] [id number] [address] [place] [id number] Apr, [facility] [address] [id number] [address] [place] [id number] Apr, [facility] [address] [id number] [address] [place] [phone] Apr, Epigastric pain R10.13 [facility] [address] [id number] [address] [place] [id number] Mar, Tinea pedis B35.3 and Contac t dermatitis and eczema due to detergents L24.0 [facility] [address] [id number] [address] [place] [id number] Mar, [facility] [address] [id number] [address] [place] [id number] Jan, [facility] [address] [facility] [id number] [address] [place] [phone] Jan, [facility] [address] [id number] Jan, [facility] [address] [facility] [id number] [address] [place] [id number] Dec, [facility] [id number] [place] [id number] Nov, [facility] [id number] [place] [phone] Nov, Fatigue 780.79 [facility] [address] [place] [id number] [place] [address] Nov, [facility] [id number] [place] [address] Nov, Unspecified myalgia and myos itis 729.1 [facility] [id number] [place] [address] Nov, Hypercalcemia 275.42 [facility] [address] [address] Nov, Fatigue 780.79 ; Bradycardia 427.89 ; Chronic pain 338.29 and Family history of diabetes mellitus V18.0 [facility] [address] [address] Nov, Fatigue 780.79 ; Chronic idania n 338.29 ; Family history of diabetes mellitus V18.0 ; Bradycardia 427.89 ; Hypothyroid 244.9 and Anxiety 300.00 [facility] [id number] [place] [address] Oct, [facility] [id number] [place] [address] September, [facility] [id number] [place] [address] Aug, [facility] [address] [id number] [address] [place] [address], [place] [address] 14 Aug, 2014 [facility] [address] [id number] [address] [place] [address], [place] [address] Aug, [facility] [address] [id number] [address] [place] [address], [place] [address] Jul, [facility] [address] [id number] [address] [place] [address], [place] [address] Jul, [facility] [address] [id number] [address] [place] [address], [place] [address] Jul, [facility] [address] [id number] [address] [place] [address], [place] [address] Jul, [facility] [address] [id number] [address] [place] [address], [place] [address] Jun, [facility] [address] [id number] [address] [place] [address], [place] [address] Jun, [facility] [address] [id number] [address] [place] [address], [place] [address] Jun, [facility] [address] [id number] [address] [place] [address], [place] [address] Jun, [facility] [address] [id number] [address] [place] [address], [place] [address] Jun, [facility] [address] [id number] [address] [place] [address] Jun, [facility] [address] [id number] [address] [place] [address], [place] [address] May, [facility] [address] [id number] [address] [place] [address], [place] [address] May, [facility] [address] [id number] [address] [place] [address], [place] [address] May, [facility] [address] [id number] [address] [place] [address] May, [facility] [address] [id number] [address] [place] [address], [place] [address] 15 May, 2014 [facility] [address] [id number] [address] [place] [address], [place] [address] 15 May, 2014 [facility] [address] [id number] [address] [place] [address], [place] [address] May, [facility] [address] [id number] [address] [place] [address], [place] [address] May, [facility] [address] [id number] [address] [place] [address], [place] [address] May, [facility] [address] [id number] [address] [place] [address], [place] [address] May, [facility] [address] [id number] [address] [place] [address], [place] [address] Apr, [facility] [address] [id number] [address] [place] [address], [place] [address] Apr, [facility] [address] [id number] [address] [place] [address], [place] [address] Apr, [facility] [address] [id number] [address] [place] [address], [place] [address] Apr, [facility] [address] [id number] [address] [place] [address], [place] [address] Apr, [facility] [address] [id number] [address] [place] [address] Apr, [facility] [address] [id number] [address] [place] [address], [place] [address] 18 Apr, 2014 [facility] [address] [id number] [address] [place] [address], [place] [address] 18 Apr, 2014 [facility] [address] [id number] [address] [place] [address], [place] [address] 17 Apr, 2014 [facility] [address] [id number] [address] [place] [address], [place] [address] 17 Apr, 2014 [facility] [address] [id number] [address] [place] [address], [place] [address] 13 Apr, 2014 [facility] [address] [id number] [address] [place] [address], [place] [address] 13 Apr, 2014 [facility] [address] [id number] [address] [place] [address], [place] [address] 11 Apr, 2014 [facility] [address] [id number] [address] [place] [address], [place] [address] 10 Apr, 2014 [facility] [address] [id number] [address] [place] [address], [place] [address] 10 Apr, 2014 [facility] [address] [id number] [address] [place] [address], [place] [address] 16 Mar, 2014 [facility] [address] [id number] [address] [place] [address], [place] [address] 16 Mar, 2014 [facility] [address] [id number] [address] [place] [address], [place] [address] 16 Mar, 2014 [facility] [address] [id number] [address] [place] [address], [place] [address] 16 Mar, 2014 [facility] [address] [id number] [address] [place] [address], [place] [address] 19 Jan, 2014 [facility] [address] [id number] [address] [place] [address], [place] [address] 19 Jan, 2013 [facility] [address] [id number] [address] [place] [address], [place] [address] 18 Jan, 2014 [facility] [address] [id number] [address] [place] [address], [place] [address] 18 Jan, 2013 [facility] [address] [id number] [address] [place] [address], [place] [address] 02 Sep, 2013 [facility] [address] [id number] [address] [place] [address], [place] [address] Jan, [facility] [address] [id number] [facility] [address] Dec, [facility] [address] [id number] [address] [place] [address], [place] [address] Dec, [facility] [address] [id number] [address] [place] [address], [place] [address] Dec, [facility] [address] [id number] [address] [place] [address], [place] [address] Dec, [facility] [address] [id number] [address] [place] [address], [place] [address] Nov, [facility] [address] [id number] [address] [place] [address], [place] [address] Nov, [facility] [address] [id number] [address] [place] [address], [place] [address] Nov, [facility] [address] [id number] [address] [place] [address], [place] [address] Nov, [facility] [address] [id number] [address] [place] [address], [place] [address] Oct, [facility] [address] [id number] [address] [place] [address], [place] [address] Oct, [facility] [address] [id number] [address] [place] [address], [place] [address] Oct, [facility] [address] [id number] [address] [place] [address], [place] [address] Oct, [facility] [address] [id number] [address] [place] [address], [place] [address] Oct, [facility] [address] [id number] [address] [place] [address], [place] [address] Oct, [facility] [address] [id number] [address] [place] [address], [place] [address] Oct, [facility] [address] [id number] [address] [place] [address], [place] [address] Oct, [facility] [address] [id number] [address] [place] [address], [place] [address] Oct, [facility] [address] [id number] [address] [place] [address], [place] [address] Oct, [facility] [address] [id number] [address] [place] [address], [place] [address] September, [facility] [address] [id number] [address] [place] [address], [place] [address] September, [facility] [address] [id number] [address] [place] [address], [place] [address] September, [facility] [address] [id number] [address] [place] [address], [place] [address] September, [facility] [address] [id number] [address] [place] [address], [place] [address] September, [facility] [address] [id number] [address] [place] [address], [place] [address] September, [facility] [address] [id number] [address] [place] [address], [place] [address] September, [facility] [address] [id number] [address] [place] [address], [place] [address] September, [facility] [address] [id number] [address] [place] [address], [place] [address] September, [facility] [address] [id number] [address] [place] [address], [place] [address] Aug, [facility] [address] [id number] [address] [place] [address], [place] [address] Aug, [facility] [address] [id number] [address] [place] [address], [place] [address] Aug, [facility] [address] [id number] [address] [place] [address], [place] [address] Aug, [facility] [address] [id number] [facility] [place] [address] Aug, [facility] [address] [id number] [address] [place] [address], [place] [address] Aug, [facility] [address] [id number] [address] [place] [address], [place] [address] Aug, [facility] [address] [id number] [address] [place] [address], [place] [address] Aug, [facility] [address] [id number] [address] [place] [address], [place] [address] Jul, [facility] [address] [id number] [address] [place] [address], [place] [address] Jul, [facility] [address] [id number] [address] [place] [address], [place] [address] Jul, [facility] [address] [id number] [address] [place] [address], [place] [address] Jul, [facility] [address] [id number] [address] [place] [address], [place] [address] Jul, [facility] [address] [id number] [address] [place] [address], [place] [address] Jul, [facility] [address] [id number] [address] [place] [address], [place] [address] Jul, [facility] [address] [id number] [address] [place] [address], [place] [address] Jul, [facility] [address] [id number] [address] [place] [address], [place] [address] 18 Jul, 2013 [facility] [address] [id number] [address] [place] [address], [place] [address] 17 Jul, 2013 [facility] [address] [id number] [address] [place] [address], [place] [address] 17 Jul, 2013 [facility] [address] [id number] [address] [place] [address], [place] [address] Jul, [facility] [address] [id number] [address] [place] [address], [place] [address] Jul, [facility] [address] [id number] [address] [place] [address], [place] [address] Jul, [facility] [address] [id number] [address] [place] [address], [place] [address] Jul, [facility] [address] [id number] [address] [place] [address], [place] [address] Jul, [facility] [address] [id number] [address] [place] [address], [place] [address] Jul, [facility] [address] [id number] [address] [place] [address], [place] [address] Jul, [facility] [address] [id number] [address] [place] [address], [place] [address] Jul, [facility] [address] [id number] [address] [place] [address], [place] [address] Jun, [facility] [address] [id number] [address] [place] [address], [place] [address] Jun, [facility] [address] [id number] [address] [place] [address], [place] [address] May, [facility] [address] [id number] [address] [place] [address], [place] [address] May, [facility] [address] [id number] [address] [place] [address], [place] [address] Apr, [facility] [address] [id number] [address] [place] [address], [place] [address] Apr, [facility] [address] [id number] [address] [place] [address], [place] [address] Apr, [facility] [address] [id number] [address] [place] [address], [place] [address] Apr, [facility] [address] [id number] [address] [place] [address], [place] [address] Apr, [facility] [address] [id number] [address] [place] [address], [place] [address] Apr, [facility] [address] [id number] [address] [place] [address], [place] [address] Mar, [facility] [address] [id number] [address] [place] [address], [place] [address] Mar, [facility] [address] [id number] [address] [place] [address], [place] [address] Mar, [facility] [address] [id number] [address] [place] [address], [place] [address] Mar, [facility] [address] [id number] [address] [place] [address], [place] [address] Jan, [facility] [address] [id number] [address] [place] [address], [place] [address] Jan, [facility] [address] [id number] [address] [place] [address], [place] [address] Jan, [facility] [address] [id number] [address] [place] [address], [place] [address] Dec, [facility] [address] [id number] [address] [place] [address], [place] [address] Dec, [facility] [address] [id number] [address] [place] [address], [place] [address] Dec, [facility] [address] [id number] [address] [place] [address], [place] [address] Dec, [facility] [address] [id number] [address] [place] [address], [place] [address] Nov, [facility] [address] [id number] [address] [place] [address], [place] [address] Nov, [facility] [address] [id number] [address] [place] [address], [place] [address] Nov, [facility] [address] [id number] [facility] [place] [address] Oct, [facility] [address] [id number] [address] [place] [address], [place] [address] Oct, [facility] [address] [id number] [address] [place] [address], [place] [address] Oct, [facility] [address] [id number] [address] [place] [address], [place] [address] Oct, [facility] [address] [id number] [address] [place] [address], [place] [address] Oct, [facility] [address] [id number] [address] [place] [address], [place] [address] Oct, [facility] [address] [id number] [address] [place] [address], [place] [address] September, [facility] [address] [id number] [address] [place] [address], [place] [address] Jul, [facility] [address] [id number] [address] [place] [address], [place] [address] Jul, [facility] [address] [id number] [address] [place] [address], [place] [address] Jul, [facility] [address] [id number] [address] [place] [address], [place] [address] Jul, [facility] [address] [id number] [address] [place] [address], [place] [address] Jul, [facility] [address] [id number] [address] [place] [address], [place] [address] Jul, [facility] [address] [id number] [address] [place] [address], [place] [address] Jun, [facility] [address] [id number] [address] [place] [address], [place] [address] Apr, [facility] [address] [id number] [address] [place] [address], [place] [address] Apr, [facility] [address] [id number] [address] [place] [address], [place] [address] Jan, [facility] [address] [id number] [address] [place] [address], [place] [address] Dec, [facility] [address] [id number] [address] [place] [address], [place] [address] Nov, [facility] [address] [id number] [address] [place] [address], [place] [address] Oct, [facility] [address] [id number] [address] [place] [address], [place] [address] September, [facility] [address] [id number] [address] [place] [address], [place] [address] September, [facility] [address] [id number] [address] [place] [address], [place] [address] Jul, [facility] [address] [id number] [address] [place] [address], [place] [address] Jul, [facility] [address] [id number] [address] [place] [address], [place] [address] 28 Jul, 2011 [facility] [address] [id number] [address] [place] [address], [place] [address] Jul, [facility] [address] [id number] [address] [place] [address], [place] [address] Jul, [facility] [address] [id number] [address] [place] [address], [place] [address] 17 Jul, 2011 [facility] [address] [id number] [address] [place] [address], [place] [address] 13 Jul, 2011 [facility] [address] [id number] [address] [place] [address], [place] [address] 11 Jul, 2011 [facility] [address] [id number] [address] [place] [address], [place] [address] 08 Jul, 2011 [facility] [address] [id number] [address] [place] [address], [place] [address] Jul, [facility] [address] [id number] [address] [place] [address], [place] [address] Jun, [facility] [address] [id number] [address] [place] [address], [place] [address] May, [facility] [address] [id number] [address] [place] [address], [place] [address] May, [facility] [address] [id number] [address] [place] [address], [place] [address] May, [facility] [address] [id number] [address] [place] [address], [place] [address] Apr, [facility] [address] [id number] [address] [place] [address], [place] [address] Apr, [facility] [address] [id number] [address] [place] [address], [place] [address] Mar, [facility] [address] [id number] [address] [place] [address], [place] [address] Mar, [facility] [address] [id number] [address] [place] [id number] Mar, [facility] [address] [id number] [address] [place] [id number] Mar, [facility] [address] [id number] [address] [place] [id number] Mar, [facility] [address] [id number] [address] [place] [address], [place] [address] September, [facility] [address] [id number] [address] [place] [address], [place] [address] Mar, [facility] [address] [id number] [address] [place] [address], [place] [address] Dec, [facility] [address] [id number] [address] [place] [id number] May, [facility] [address] [id number] [address] [place] [address] May, IMMUNIZATIONS No Known Immunizations SOCIAL HISTORY [...]
--- OUTSIDE RECORDS SUMMARY | 2019-10-01 11:00 | XMS REPORT ---
Author Author Samra BARCENAS Organization [facility] Address [address] [place] [address] Care Team Providers Care Chief Technician Name Role Phone CEDRICK BARCENAS Unavailable PROBLEMS Type Condition ICD9-CM Code NVM48-XP Code Onset Dates Condition S tatus SNOMED Code Problem skilled nursing 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.891 Active 070268820 Problem Chronic pain syndrome G89.4 Active 417535730 Problem Hypothyroidism, unspecified E03.9 Ac tive 16470624 Problem Depression, unspecified depression type F32.9 Active 52445313 Problem Major depressive disorder, recurrent episode, moderate F33.1 Active 272590635 Problem Generalized anxiety disorder F41.1 A ctive 16876846 Problem Chronic tension-type headache, intractable G44.221 Active 874196415 Problem Major depressive disorder, recurrent, unspecified F33.9 Active 55458983 Problem Anxiety F41.9 Active 71490597 Problem Primary insomnia F51.01 Active 397 2004 Problem Mixed hyperlipidemia E78.2 Active 857728769 Problem Cervical spondylosis with radiculopathy M47.22 Active 902502252 Problem Chronic migraine G43.709 Active 377 96775 Problem Other chronic pain G89.29 Active 8 5494888 Problem Grief F43.21 Active 819610981 ALLERGIES No Information ENCOUNTERS Encounter Location Date Diagnosis [facility] [address] [facility] [id number] [address] [place] [phone] Aug, [facility] [address] [facility] [id number] [address] [place] [phone] Aug, Cervical spondylosis with ra diculopathy M47.22 [facility] [address] [facility] [id number] [address] [place] [id number] Jul, Major depressive disorder, r ecurrent episode, moderate F33.1 [place] [address] [facility] [id number] [address] [place] [id number] Jul, Cervical spondylosis with ra diculopathy M47.22 [place] [address] [facility] [id number] [address] [place] [id number] 02 Jul, 2019 Pain in left knee M25.562 ; Other chronic pain G89.29 and Financial difficulties Z59.8 [place] [address] [place] [id number] [address] [place] [id number] 20 Jul, 2019 [place] [address] [place] [id number] [address] [place] [id number] 13 Jul, 2019 Generalized anxiety disorder F41.1 and Major depressive disorder, recurrent episode, moderate F33.1 [place] [address] [place] [id number] [address] [place] [id number] 06 Jul, 2019 [place] [address] [place] [id number] [address] [place] [address] Jul, Cervical spondylosis with ra diculopathy M47.22 [place] [address] [facility] [id number] [address] [place] [phone] Jun, [facility] [address] [facility] [id number] [address] [place] [phone] Jun, Allergic urticaria L50.0 [place] [address] [facility] [id number] [address] [place] [phone] Jun, Cervical spondylosis with ra diculopathy M47.22 [place] [address] [facility] [id number] [address] [place] [id number] Jun, Hypothyroidism, unspecified E03.9 [place] [address] [facility] [id number] [address] [place] [id number] 14 Jun, 2019 [place] [address] [facility] [id number] [address] [place] [id number] 13 Jun, 2019 Major depressive disorder, r ecurrent, unspecified F33.9 ; Primary insomnia F51.01 and Strain of lumbar region, 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 S39.012A [facility] [address] [id number] [address] [place] [id number] 06 Jun, 2019 Cervical spondylosis with ra diculopathy M47.22 [facility] [address] [id number] [address] [place] [id number] 02 Jun, 2019 Back strain, subsequent enco unter S39.012D [facility] [address] [id number] [address] [place] [address] Jun, [place] [address] [id number] [address] [place] [id number] May, Cervical spondylosis with ra diculopathy M47.22 [place] [address] [id number] [address] [place] [id number] Apr, [place] [address] [id number] [address] [place] [phone] Apr, Cervical spondylosis with ra diculopathy M47.22 [place] [id number] [id number] [address] [place] [id number] Mar, Cervical spondylosis with ra diculopathy M47.22 [place] [address] [id number] [address] [place] [id number] Jan, Generalized anxiety disorder F41.1 and Major depressive disorder, recurrent, unspecified F33.9 [place] [address] [id number] [address] [place] [id number] 16 Jan, 2019 Cervical spondylosis with ra diculopathy M47.22 [place] [id number] [id number] [address] [place] [id number] 11 Jan, 2019 [place] [address] [id number] [address] [place] [id number] 09 Jan, 2019 Major depressive disorder, r ecurrent episode, moderate F33.1 and Generalized anxiety disorder F41.1 [place] [address] [id number] [address] [place] [phone] Dec, [place] [address] [facility] [id number] [address] [place] [id number] Dec, Cervical spondylosis with ra diculopathy M47.22 [facility] [address] [facility] [id number] [address] [place] [phone] Nov, Cervical spondylosis with ra diculopathy M47.22 [place] [address] [facility] [id number] [address] [place] [address] Nov, Hypothyroidism, unspecified E03.9 [place] [address] [facility] [id number] [address] [place] [phone] Nov, Cervical spondylosis with ra diculopathy M47.22 [place] [address] [facility] [id number] [address] [place] [id number] Oct, Cervical spondylosis with ra diculopathy M47.22 [place] [address] [facility] [id number] [address] [place] [id number] Oct, Grief F43.[id number] [place] [phone] Oct, [place] [address] [facility] [id number] [address] [place] [phone] Oct, Major depressive disorder, r ecurrent episode, moderate F33.1 and Chronic tension-type headache, intractable G44.221 [place] [address] [facility] [id number] [address] [place] [phone] Oct, [place] [address] [facility] [id number] [address] [place] [phone] Oct, Breast cancer screening by domo meehan Z12.31 [place] [address] [facility] [id number] [address] [place] [phone] September, Cervical spondylosis with ra diculopathy M47.22 [place] [address] [facility] [id number] [address] [place] [id number] September, Cervical spondylosis with ra diculopathy M47.22 [facility] [address] [facility] [id number] [address] [place] [phone] Aug, Chronic pain syndrome G89.4 ; Cervicalgia M54.2 ; Chronic nonintractable headache, unspecified headache type R51 and Alopecia L65.9 [place] [address] [facility] [id number] [address] [place] [address] Jul, Cervical spondylosis with ra diculopathy M47.22 [place] [address] [facility] [id number] [address] [place] [address] Jul, [place] [address] [place] [id number] [address] [place] [phone] Jul, Cervical spondylosis with ra diculopathy M47.22 [place] [address] [place] [id number] [address] [place] [address] Jul, [place] [address] [place] [id number] [address] [place] [id number] Jul, Cervical spondylosis with ra diculopathy M47.22 [place] [address] [place] [id number] [address] [place] [id number] Jul, Cervical spondylosis with ra diculopathy M47.22 [place] [address] [place] [id number] [address] [place] [id number] Jul, [place] [address] [place] [id number] [address] [place] [address] Jun, Major depressive disorder, r ecurrent episode, moderate F33.1 ; Low back pain M54.5 and Other chronic pain G89.29 [facility] [address] [facility] [id number] [address] [place] [id number] Jun, [facility] [address] [place] [id number] [address] [place] [phone] Jun, Bronchitis J40 ; Mixed hyper lipidemia E78.2 ; Cervical spondylosis with radiculopathy M47.22 ; 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 ; Major depressive disorder, recurrent episode, moderate F33.1 ; Hypothyroidism, unspecified E03.9 ; Low back pain M54.5 ; Other chronic pain G89.29 and Chronic tension-type headache, intractable G44.221 [place] [address] [place] [address] Jun, Cervical spondylosis with ra diculopathy M47.22 [place] [address] [address] May, [place] [address] [address] May, Cervical spondylosis with ra diculopathy M47.22 [facility] [address] [address] May, Acute nasopharyngitis J00 an d Wheezing R06.2 [place] [address] [address] May, [place] [address] [address] Apr, Cervical spondylosis with ra diculopathy M47.22 [place] [address] [address] Mar, Mixed hyperlipidemia E78.2 a nd Family history of stroke Z82.3 [place] [address] [address] Mar, Cervical spondylosis with ra diculopathy M47.22 [place] [address] [address] 17 Mar, 2018 Hypothyroidism, unspecified E03.9 ; Cervicalgia M54.2 and Chronic migraine G43.709 [place] [address] [address] Mar, Cervical spondylosis with ra diculopathy M47.22 [facility] [address] [id number] [address] [place] [address] Mar, Chronic migraine G43.709 ; C ervicalgia M54.2 and Family history of stroke Z82.3 [facility] [address] [id number] [address] [place] [id number] 14 Jan, 2018 Cervical spondylosis with ra diculopathy M47.22 [facility] [address] [id number] [address] [place] [phone] 05 Jan, 2018 Reactive airway disease that is not asthma R09.89 [facility] [address] [facility] [id number] [address] [place] [phone] Dec, Allergic dermatitis due to o ther chemical product L23.5 [facility] [address] [id number] [address] [place] [id number] Dec, Cervical spondylosis with ra diculopathy M47.22 and Depression, unspecified depression type F32.9 [facility] [address] [id number] [address] [place] [phone] Oct, [facility] [address] [id number] [address] [place] [phone] Oct, [facility] [address] [facility] [id number] [address] [place] [id number] Oct, [facility] [address] [id number] [address] [place] [phone] September, Chronic pain syndrome G89.4 [facility] [address] [id number] [address] [place] [phone] September, Depression, unspecified depr ession type F32.9 and Cervicalgia M54.2 [facility] [address] [id number] [address] [place] [id number] September, Chronic pain syndrome G89.4 [facility] [address] [id number] [address] [place] [phone] Aug, Red stool R19.5 [place] [address] [place] [address] Aug, Depression, unspecified depr ession type F32.9 ; Chronic pain syndrome G89.4 ; Chronic tension-type headache, intractable G44.221 ; Red stool R19.5 ; Hypothyroidism, unspecified E03.9 and Mixed hyperlipidemia E78.2 [place] [address] [address] Jul, Major depressive disorder, r ecurrent episode, moderate F33.1 [place] [address] [address] Jul, [place] [address] [address] Jul, Hypothyroidism, unspecified E03.9 [place] [address] [address] Jul, Hypothyroidism, unspecified E03.9 [place] [address] [address] Jul, Mixed hyperlipidemia E78.2 [place] [address] [address] Jul, Mixed hyperlipidemia E78.2 [facility] [address] [address] Jul, Bronchitis J40 ; Cough R05 a nd Wheezing R06.2 [place] [address] [address] Jul, Major depressive disorder, r ecurrent episode, moderate F33.1 and Generalized anxiety disorder F41.1 [place] [address] [address] Jul, [place] [address] [address] Jul, Major depressive disorder, r ecurrent episode, moderate F33.1 and Generalized anxiety disorder F41.1 [place] [address] [address] Jul, Generalized anxiety disorder F41.1 and Major depressive disorder, recurrent episode, moderate F33.1 [place] [address] [address] Jul, Mixed hyperlipidemia E78.2 [place] [address] [address] Jun, Depression, unspecified depr ession type F32.9 ; Cervicalgia M54.2 ; Trigger point M79.1 ; Hypothyroidism, unspecified E03.9 ; Screening, lipid Z13.220 and Mixed hyperlipidemia E78.[address] [address] Jun, [place] [address] [address] May, [address] [address] Apr, Acute bronchitis due to othe r specified organisms J20.8 and Tobacco abuse counseling Z71.6 [place] [address] [address] Mar, Depression, unspecified depr ession type F32.9 [place] [address] [address] Jan, Chronic pain syndrome G89.[address] [address] Nov, Anxiety F41.9 ; Depression, unspecified depression type F32.9 and Chronic pain syndrome G89.4 [place] [address] [address] Oct, Anxiety F41.9 and Hypothyroi dism, unspecified E03.9 [facility] [address] [id number] [address] [place] [address] Oct, Left foot pain M79.672 and C ontusion of left foot, 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 S90.32XA [facility] [address] [id number] [address] [place] [address] Oct, [facility] [address] [id number] [address] [place] [address] September, Cervicalgia M54.2 [facility] [address] [id number] [address] [place] [address] September, [facility] [address] [id number] [address] [place] [address] Aug, Cervicalgia M54.2 [facility] [address] [id number] [address] [place] [address] Aug, Cervicalgia M54.2 and Left a rm numbness R20.0 [facility] [address] [facility] [id number] [address] [place] [address] Aug, [facility] [address] [id number] [address] [place] [address] Aug, [facility] [address] [facility] [id number] [address] [place] [address] Jul, [facility] [address] [id number] [address] [place] [phone] Jul, [facility] [address] [facility] [id number] [address] [place] [address] Jul, [facility] [address] [facility] [id number] [address] [place] [address] Jul, Acute midline low back pain without sciatica M54.5 [facility] [address] [facility] [id number] [address] [place] [address] Jun, Acute midline low back pain without sciatica M54.5 [facility] [address] [id number] [address] [place] [address] Jun, Chronic pain syndrome G89.4 and Muscle spasm M62.838 [facility] [address] [id number] [address] [place] [address] Jun, [facility] [address] [id number] [address] [place] [address] Jun, Acute midline low back pain without sciatica M54.5 [facility] [address] [id number] [address] [place] [id number] Jun, [facility] [address] [id number] [address] [place] [phone] May, [facility] [address] [facility] [id number] [address] [place] [address] May, Hypothyroidism, unspecified E03.9 ; Chronic pain syndrome G89.4 ; Hyperglycemia R73.9 ; Encounter for immunization Z23 and Mixed hyperlipidemia E78.2 [facility] [address] [id number] [address] [place] [address] Apr, Fatigue 780.79 [facility] [address] [id number] [address] [place] [address] Apr, Chronic pain syndrome G89.4 [facility] [address] [id number] [address] [place] [address] Mar, [facility] [address] [id number] [address] [place] [address] Mar, Chronic pain syndrome G89.4 [facility] [address] [id number] [address] [place] [address] Jan, [facility] [address] [id number] [address] [place] [address] Dec, [facility] [address] [facility] [id number] [address] [place] [address] Dec, Chronic pain syndrome G89.4 [facility] [address] [id number] [address] [place] [address] Dec, Trigger point M79.2 [facility] [address] [id number] [address] [place] [id number] Nov, Chronic pain syndrome G89.4 [facility] [address] [id number] [address] [place] [address] Oct, Chronic pain syndrome G89.4 [facility] [address] [id number] [address] [place] [id number] Oct, Irritant contact dermatitis due to detergent L24.0 [facility] [address] [facility] [id number] [address] [place] [address] September, Hypothyroidism, unspecified E03.9 and Depression, unspecified depression type F32.9 [facility] [address] [facility] [id number] [address] [place] [address] September, Chronic pain syndrome G89.4 [facility] [address] [id number] [address] [place] [id number] Aug, [facility] [address] [facility] [id number] [address] [place] [phone] Aug, Trigger point M79.2 [facility] [address] [facility] [id number] [address] [place] [address] Jul, Chronic pain syndrome G89.4 and skilled nursing 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.891 [facility] [address] [id number] [address] [place] [address] Jul, Chronic pain syndrome G89.4 and skilled nursing 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.891 [facility] [address] [id number] [address] [place] [address] Jul, [facility] [address] [facility] [id number] [address] [place] [id number] Jul, [facility] [address] [id number] [address] [place] [address] Jun, [facility] [address] [id number] [address] [place] [id number] May, [facility] [address] [facility] [id number] [address] [place] [phone] May, [facility] [address] [facility] [id number] [address] [place] [address] May, [facility] [address] [id number] [address] [place] [id number] May, Pneumonia, organism unspecif ied, unspecified laterality, unspecified part of lung J18.9 [facility] [address] [facility] [id number] [address] [place] [address] May, Pneumonia, organism unspecif ied, unspecified laterality, unspecified part of lung J18.9 [facility] [address] [id number] [address] [place] [address] Apr, [facility] [address] [id number] [address] [place] [id number] Apr, [facility] [address] [facility] [id number] [address] [place] [id number] Apr, [facility] [address] [facility] [id number] [address] [place] [id number] Apr, [facility] [address] [facility] [id number] [address] [place] [phone] Apr, [facility] [address] [facility] [id number] [address] [place] [id number] Apr, Epigastric pain R10.13 [facility] [address] [facility] [id number] [address] [place] [id number] Mar, Tinea pedis B35.3 and Contac t dermatitis and eczema due to detergents L24.0 [facility] [address] [facility] [id number] [address] [place] [phone] Mar, [facility] [address] [facility] [id number] [address] [place] [phone] Jan, [facility] [address] [facility] [id number] [address] [place] [phone] Jan, [facility] [address] [facility] [id number] [address] [place] [phone] Jan, [facility] [address] [place] [id number] [place] [phone] Dec, [facility] [address] [place] [id number] [address] [place] [phone] Nov, [facility] [address] [place] [id number] [place] [phone] Nov, Fatigue 780.79 [facility] [address] [phone] Nov, [facility] [address] [place] [id number] [address] [place] [id number] Nov, Unspecified myalgia and myos itis 729.1 [facility] [address] [place] [id number] [address] [place] [phone] Nov, Hypercalcemia 275.42 [facility] [address] [place] [id number] [address] [place] [id number] Nov, Fatigue 780.79 ; Bradycardia 427.89 ; Chronic pain 338.29 and Family history of diabetes mellitus V18.0 [facility] [address] [id number] [address] [place] [address] Nov, Fatigue 780.79 ; Chronic idania n 338.29 ; Family history of diabetes mellitus V18.0 ; Bradycardia 427.89 ; Hypothyroid 244.9 and Anxiety 300.00 [facility] [address] [id number] [address] [place] [address] Oct, [facility] [id number] [place] [address] September, [facility] [address] [id number] [address] [place] [address], [place] [address] Aug, [facility] [address] [id number] [address] [place] [address], [place] [address] Aug, [facility] [address] [id number] [address] [place] [address], [place] [address] Aug, [facility] [address] [id number] [address] [place] [address], [place] [address] Jul, [facility] [address] [id number] [address] [place] [address], [place] [address] Jul, [facility] [address] [id number] [address] [place] [address], [place] [address] Jul, [facility] [address] [id number] [address] [place] [address], [place] [address] Jul, [facility] [address] [id number] [address] [place] [address], [place] [address] Jun, [facility] [address] [id number] [address] [place] [address], [place] [address] Jun, [facility] [address] [id number] [address] [place] [address], [place] [address] Jun, [facility] [address] [id number] [address] [place] [address], [place] [address] Jun, [facility] [address] [id number] [address] [place] [address], [place] [address] Jun, [facility] [address] [id number] [address] [place] [address], [place] [address] Jun, [facility] [address] [id number] [address] [place] [address], [place] [address] May, [facility] [address] [id number] [address] [place] [address], [place] [address] May, [facility] [address] [id number] [address] [place] [address], [place] [address] May, [facility] [address] [id number] [address] [place] [address], [place] [address] May, [facility] [address] [id number] [address] [place] [address], [place] [address] 15 May, 2014 [facility] [address] [id number] [address] [place] [address], [place] [address] 15 May, 2014 [facility] [address] [id number] [address] [place] [address], [place] [address] May, [facility] [address] [id number] [address] [place] [address], [place] [address] May, [facility] [address] [id number] [address] [place] [address], [place] [address] May, [facility] [address] [id number] [address] [place] [address], [place] [address] May, [facility] [address] [id number] [address] [place] [address], [place] [address] Apr, [facility] [address] [id number] [address] [place] [address], [place] [address] Apr, [facility] [address] [id number] [address] [place] [address], [place] [address] Apr, [facility] [address] [id number] [address] [place] [address], [place] [address] Apr, [facility] [address] [id number] [address] [place] [address], [place] [address] Apr, [facility] [address] [id number] [address] [place] [address], [place] [address] Apr, [facility] [address] [id number] [address] [place] [address], [place] [address] 18 Apr, 2014 [facility] [address] [id number] [address] [place] [address] [address] 18 Apr, 2014 [facility] [address] [id number] [address] [place] [address], [place] [address] 17 Apr, 2014 [facility] [address] [id number] [address] [place] [address], [place] [address] 17 Apr, 2014 [facility] [address] [id number] [address] [place] [address], [place] [address] 13 Apr, 2014 [facility] [address] [id number] [address] [place] [address], [place] [address] 13 Apr, 2014 [facility] [address] [id number] [address] [place] [address], [place] [address] 11 Apr, 2014 [facility] [address] [id number] [address] [place] [address], [place] [address] 10 Apr, 2014 [facility] [address] [id number] [address] [place] [address], [place] [address] 10 Apr, 2014 [facility] [address] [id number] [address] [place] [address], [place] [address] 16 Mar, 2014 [facility] [address] [id number] [address] [place] [address], [place] [address] 16 Mar, 2014 [facility] [address] [id number] [address] [place] [address], [place] [address] 16 Mar, 2014 [facility] [address] [id number] [address] [place] [address], [place] [address] 16 Mar, 2014 [facility] [address] [id number] [address] [place] [address] 19 Jan, 2014 [facility] [address] [id number] [address] [place] [address], [place] [address] 19 Jan, 2014 [facility] [address] [id number] [address] [place] [address], [place] [address] 18 Jan, 2014 [facility] [address] [id number] [address] [place] [address], [place] [address] 18 Jan, 2014 [facility] [address] [id number] [address] [place] [address], [place] [address] Jan, [facility] [address] [id number] [address] [place] [address], [place] [address] Jan, [facility] [address] [id number] [address] [place] [address], [place] [address] Dec, [facility] [address] [id number] [address] [place] [address], [place] [address] Dec, [facility] [address] [id number] [address] [place] [address], [place] [address] Dec, [facility] [address] [id number] [address] [place] [address], [place] [address] Dec, [facility] [address] [id number] [address] [place] [address], [place] [address] Nov, [facility] [address] [id number] [address] [place] [address], [place] [address] Nov, [facility] [address] [id number] [address] [place] [address], [place] [address] Nov, [facility] [address] [id number] [address] [place] [address], [place] [address] Nov, [facility] [address] [id number] [address] [place] [address], [place] [address] Oct, [facility] [address] [id number] [address] [place] [address], [place] [address] Oct, [facility] [address] [id number] [address] [place] [address], [place] [address] Oct, [facility] [address] [id number] [address] [place] [address], [place] [address] Oct, [facility] [address] [id number] [address] [place] [address], [place] [address] Oct, [facility] [address] [id number] [address] [place] [address], [place] [address] Oct, [facility] [address] [id number] [address] [place] [address], [place] [address] Oct, [facility] [address] [id number] [address] [place] [address], [place] [address] Oct, [facility] [address] [id number] [address] [place] [address], [place] [address] Oct, [facility] [address] [id number] [address] [place] [address], [place] [address] Oct, [facility] [address] [id number] [address] [place] [address], [place] [address] September, [facility] [address] [id number] [address] [place] [address], [place] [address] September, [facility] [address] [id number] [address] [place] [address], [place] [address] September, [facility] [address] [id number] [address] [place] [address], [place] [address] September, [facility] [address] [id number] [address] [place] [address], [place] [address] September, [facility] [address] [id number] [address] [place] [address], [place] [address] September, [facility] [address] [id number] [address] [place] [address], [place] [address] September, [facility] [address] [id number] [address] [place] [address], [place] [address] September, [facility] [address] [id number] [address] [place] [address], [place] [address] September, [facility] [address] [id number] [address] [place] [address], [place] [address] Aug, [facility] [address] [id number] [address] [place] [address], [place] [address] Aug, [facility] [address] [id number] [address] [place] [address], [place] [address] Aug, [facility] [address] [id number] [facility] [address] Aug, [facility] [address] [id number] [address] [place] [address], [place] [address] Aug, [facility] [address] [id number] [address] [place] [address], [place] [address] Aug, [facility] [address] [id number] [address] [place] [address], [place] [address] Aug, [facility] [address] [id number] [address] [place] [address], [place] [address] Aug, [facility] [address] [id number] [address] [place] [address], [place] [address] Jul, [facility] [address] [id number] [address] [place] [address], [place] [address] Jul, [facility] [address] [id number] [address] [place] [address], [place] [address] Jul, [facility] [address] [id number] [address] [place] [address], [place] [address] Jul, [facility] [address] [id number] [address] [place] [address], [place] [address] Jul, [facility] [address] [id number] [address] [place] [address], [place] [address] Jul, [facility] [address] [id number] [address] [place] [address], [place] [address] Jul, [facility] [address] [id number] [address] [place] [address], [place] [address] 18 Jul, 2013 [facility] [address] [id number] [address] [place] [address], [place] [address] Jul, [facility] [address] [id number] [address] [place] [address], [place] [address] 17 Jul, 2013 [facility] [address] [id number] [address] [place] [address], [place] [address] 17 Jul, 2013 [facility] [address] [id number] [address] [place] [address], [place] [address] Jul, [facility] [address] [id number] [address] [place] [address], [place] [address] Jul, [facility] [address] [id number] [address] [place] [address], [place] [address] 05 Jul, 2013 [facility] [address] [id number] [address] [place] [address], [place] [address] Jul, [facility] [address] [id number] [address] [place] [address], [place] [address] Jul, [facility] [address] [id number] [address] [place] [address], [place] [address] Jul, [facility] [address] [id number] [address] [place] [address], [place] [address] Jul, [facility] [address] [id number] [address] [place] [address], [place] [address] Jul, [facility] [address] [id number] [address] [place] [address], [place] [address] Jun, [facility] [address] [id number] [address] [place] [address], [place] [address] Jun, [facility] [address] [id number] [address] [place] [address], [place] [address] May, [facility] [address] [id number] [address] [place] [address], [place] [address] May, [facility] [address] [id number] [address] [place] [address], [place] [address] Apr, [facility] [address] [id number] [address] [place] [address], [place] [address] Apr, [facility] [address] [id number] [address] [place] [address] [address] Apr, [facility] [address] [id number] [address] [place] [address], [place] [address] Apr, [facility] [address] [id number] [address] [place] [address], [place] [address] Apr, [facility] [address] [id number] [address] [place] [address], [place] [address] Apr, [facility] [address] [id number] [address] [place] [address], [place] [address] Mar, [facility] [address] [id number] [address] [place] [address], [place] [address] Mar, [facility] [address] [id number] [address] [place] [address], [place] [address] Mar, [facility] [address] [id number] [address] [place] [address], [place] [address] Mar, [facility] [address] [id number] [address] [place] [address], [place] [address] Jan, [facility] [address] [id number] [address] [place] [address], [place] [address] Jan, [facility] [address] [id number] [address] [place] [address], [place] [address] Jan, [facility] [address] [id number] [address] [place] [address], [place] [address] Dec, [facility] [address] [id number] [address] [place] [address], [place] [address] Dec, [facility] [address] [id number] [address] [place] [address], [place] [address] Dec, [facility] [address] [id number] [address] [place] [address], [place] [address] Dec, [facility] [address] [id number] [address] [place] [address], [place] [address] Nov, [facility] [address] [id number] [facility] [address] Nov, [facility] [address] [id number] [address] [place] [address], [place] [address] Nov, [facility] [address] [id number] [address] [place] [address], [place] [address] Oct, [facility] [address] [id number] [address] [place] [address], [place] [address] Oct, [facility] [address] [id number] [address] [place] [address], [place] [address] Oct, [facility] [address] [id number] [address] [place] [address], [place] [address] Oct, [facility] [address] [id number] [address] [place] [address], [place] [address] Oct, [facility] [address] [id number] [address] [place] [address], [place] [address] Oct, [facility] [address] [id number] [address] [place] [address], [place] [address] September, [facility] [address] [id number] [address] [place] [address], [place] [address] Jul, [facility] [address] [id number] [address] [place] [address], [place] [address] Jul, [facility] [address] [id number] [address] [place] [address], [place] [address] Jul, [facility] [address] [id number] [address] [place] [address], [place] [address] Jul, [facility] [address] [id number] [address] [place] [address], [place] [address] Jul, [facility] [address] [id number] [address] [place] [address], [place] [address] Jul, [facility] [address] [id number] [address] [place] [address], [place] [address] Jun, [facility] [address] [id number] [address] [place] [address], [place] [address] Apr, [facility] [address] [id number] [address] [place] [address], [place] [address] Apr, [facility] [address] [id number] [address] [place] [address], [place] [address] Jan, [facility] [address] [id number] [address] [place] [address], [place] [address] Dec, [facility] [address] [id number] [address] [place] [address], [place] [address] Nov, [facility] [address] [id number] [address] [place] [address], [place] [address] Oct, [facility] [address] [id number] [address] [place] [address], [place] [address] September, [facility] [address] [id number] [address] [place] [address], [place] [address] September, [facility] [address] [id number] [address] [place] [address], [place] [address] Jul, [facility] [address] [id number] [address] [place] [address], [place] [address] Jul, [facility] [address] [id number] [address] [place] [address], [place] [address] Jul, [facility] [address] [id number] [address] [place] [address], [place] [address] Jul, [facility] [address] [id number] [address] [place] [address], [place] [address] Jul, [facility] [address] [id number] [address] [place] [address], [place] [address] 17 Jul, 2011 [facility] [address] [id number] [address] [place] [address], [place] [address] Jul, [facility] [address] [id number] [address] [place] [address], [place] [address] 11 Jul, 2011 [facility] [address] [id number] [address] [place] [address], [place] [address] 08 Jul, 2011 [facility] [address] [id number] [address] [place] [address], [place] [id number] 07 Jul, 2011 [facility] [address] [id number] [address] [place] [address], [place] [address] Jun, [facility] [address] [id number] [address] [place] [address], [place] [address] May, [facility] [address] [id number] [address] [place] [address], [place] [address] May, [facility] [address] [id number] [address] [place] [address], [place] [address] May, [facility] [address] [id number] [address] [place] [address], [place] [address] Apr, [facility] [address] [id number] [address] [place] [address], [place] [address] Apr, [facility] [address] [id number] [address] [place] [address], [place] [address] Mar, [facility] [address] [id number] [address] [place] [id number] Mar, [facility] [address] [id number] [address] [place] [address], [place] [address] Mar, [facility] [address] [id number] [address] [place] [id number] Mar, [facility] [address] [id number] [address] [place] [id number] Mar, [facility] [address] [id number] [address] [place] [address], [place] [address] September, [facility] [address] [id number] [address] [place] [id number] Mar, [facility] [address] [facility] [id number] [address] [place] [id number] Dec, [facility] [address] [facility] [id number] [address] [place] [id number] May, [facility] [address] [facility] [id number] [address] [place] [id number] May, IMMUNIZATIONS No Known Immunizations SOCIAL HISTORY [...]
--- OUTSIDE RECORDS SUMMARY | 2019-10-01 11:01 | XMS REPORT ---
Author Author Samra BARCENAS Organization [facility] Address [address] [place] [address] Care Team Providers Care Mobile Home Technician Name Role Phone CEDRICK BARCENAS Unavailable PROBLEMS Type Condition ICD9-CM Code SHL82-KA Code Onset Dates Condition S tatus SNOMED Code Problem detention 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.891 Active 395472463 Problem Chronic pain syndrome G89.4 Active 055393886 Problem Hypothyroidism, unspecified E03.9 Ac tive 42543504 Problem Depression, unspecified depression type F32.9 Active 58713077 Problem Major depressive disorder, recurrent episode, moderate F33.1 Active 638708750 Problem Generalized anxiety disorder F41.1 A ctive 37180676 Problem Chronic tension-type headache, intractable G44.221 Active 843501839 Problem Major depressive disorder, recurrent, unspecified F33.9 Active 02772022 Problem Anxiety F41.9 Active 41281660 Problem Primary insomnia F51.01 Active 397 2004 Problem Mixed hyperlipidemia E78.2 Active 785392590 Problem Cervical spondylosis with radiculopathy M47.22 Active 090197900 Problem Chronic migraine G43.709 Active 377 61377 Problem Other chronic pain G89.29 Active 8 8175293 Problem Grief F43.21 Active 178633889 ALLERGIES No Information ENCOUNTERS Encounter Location Date Diagnosis [facility] [id number] [place] [address] Aug, [facility] [address] [address] Jul, [facility] [id number] [place] [address] Jul, Cervical spondylosis with radiculopathy M47.22 [facility] [id number] [place] [address] Jul, Pain in left knee M25.562 ; Other chroni c pain G89.29 and Financial difficulties Z59.8 [place] [address] [address] 20 Jul, 2019 [place] [address] [address] 13 Jul, 2019 Generalized anxiety disorder F41.1 and Sylvia kearney depressive disorder, recurrent episode, moderate F33.1 [place] [address] [address] 06 Jul, 2019 [place] [address] [address] 04 Jul, 2019 Cervical spondylosis with radiculopathy M47.22 [place] [address] [address] Jun, [facility] [address] [facility] [id number] [address] [place] [address] Jun, Allergic urticaria L50.0 [place] [address] [address] 15 Jun, 2019 Cervical spondylosis with radiculopathy M47.22 [place] [address] [address] 14 Jun, 2019 Hypothyroidism, unspecified E03.9 [place] [address] [address] Jun, [place] [address] [address] 13 Jun, 2019 Major depressive disorder, recurrent, un specified F33.9 ; Primary insomnia F51.01 and Strain of lumbar region, 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 S39.012A [place] [address] [address] 06 Jun, 2019 Cervical spondylosis with radiculopathy M47.22 [place] [address] [address] Jun, Back strain, subsequent encounter S39.01 2D [place] [address] [address] Jun, [place] [address] [address] May, Cervical spondylosis with radiculopathy M47.22 [place] [address] [address] Apr, [place] [address] [address] Apr, Cervical spondylosis with radiculopathy M47.22 [place] [address] [address] Mar, Cervical spondylosis with radiculopathy M47.22 [place] [address] [address] Jan, Generalized anxiety disorder F41.1 and M ajor depressive disorder, recurrent, unspecified F33.9 [place] [address] [address] Jan, Cervical spondylosis with radiculopathy M47.22 [place] [address] [address] Jan, [place] [address] [address] Jan, Major depressive disorder, recurrent epi sode, moderate F33.1 and Generalized anxiety disorder F41.1 [place] [address] [address] Dec, [place] [address] [address] Dec, Cervical spondylosis with radiculopathy M47.22 [place] [address] [address] Nov, Cervical spondylosis with radiculopathy M47.22 [place] [id number] [place] [address] Nov, Hypothyroidism, unspecified E03.9 [place] [address] [address] Nov, Cervical spondylosis with radiculopathy M47.22 [place] [address] [address] Oct, Cervical spondylosis with radiculopathy M47.22 [place] [address] [address] Oct, Grief F43.21 [address] [place] [address] Oct, [place] [address] [address] Oct, Major depressive disorder, recurrent epi sode, moderate F33.1 and Chronic tension-type headache, intractable G44.221 [place] [address] [address] Oct, [address] [address] Oct, Breast cancer screening by mammogram Z12 .31 [place] [address] [address] September, Cervical spondylosis with radiculopathy M47.22 [place] [address] [address] September, Cervical spondylosis with radiculopathy M47.22 [place] [address] [address] Aug, Chronic pain syndrome G89.4 ; Cervicalgi a M54.2 ; Chronic nonintractable headache, unspecified headache type R51 and Alopecia L65.9 [place] [address] [address] Jul, Cervical spondylosis with radiculopathy M47.22 [place] [address] [address] Jul, [place] [address] [address] Jul, Cervical spondylosis with radiculopathy M47.22 [place] [address] [address] Jul, [place] [address] [address] Jul, Cervical spondylosis with radiculopathy M47.22 [place] [address] [address] Jul, Cervical spondylosis with radiculopathy M47.22 [place] [address] [address] Jul, [place] [address] [address] Jun, Major depressive disorder, recurrent epi sode, moderate F33.1 ; Low back pain M54.5 and Other chronic pain G89.29 [place] [address] [address] Jun, [place] [address] [address] Jun, Bronchitis J40 ; Mixed hyperlipidemia E7 8.2 ; Cervical spondylosis with radiculopathy M47.22 ; detention 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.891 ; Major depressive disorder, recurrent episode, moderate F33.1 ; Hypothyroidism, unspecified E03.9 ; Low back pain M54.5 ; Other chronic pain G89.29 and Chronic tension-type headache, intractable G44.221 [place] [address] [address] Jun, Cervical spondylosis with radiculopathy M47.22 [place] [address] [address] May, [place] [address] [address] May, Cervical spondylosis with radiculopathy M47.22 [facility] [address] [facility] [id number] [address] [place] [address] 07 May, 2018 Acute nasopharyngitis J00 an d Wheezing R06.2 [place] [address] [address] 04 May, 2018 [place] [address] [address] Apr, Cervical spondylosis with radiculopathy M47.22 [place] [address] [address] 19 Mar, 2018 Mixed hyperlipidemia E78.2 and Family hi story of stroke Z82.3 [place] [address] [address] 18 Mar, 2018 Cervical spondylosis with radiculopathy M47.22 [place] [address] [address] 17 Mar, 2018 Hypothyroidism, unspecified E03.9 ; Cerv icalgia M54.2 and Chronic migraine G43.709 [place] [address] [address] 15 Mar, 2018 Cervical spondylosis with radiculopathy M47.22 [place] [address] [address] 08 Mar, 2018 Chronic migraine G43.709 ; Cervicalgia M 54.2 and Family history of stroke Z82.3 [place] [address] [address] 14 Jan, 2018 Cervical spondylosis with radiculopathy M47.22 [place] [address] [address] 05 Jan, 2018 Reactive airway disease that is not asth ma R09.89 [facility] [address] [facility] [id number] [address] [place] [address] Dec, Allergic dermatitis due to o ther chemical product L23.5 [place] [address] [address] Dec, Cervical spondylosis with radiculopathy M47.22 and Depression, unspecified depression type F32.9 [place] [address] [address] Oct, [place] [address] [address] Oct, [place] [address] [address] Oct, [place] [address] [address] September, Chronic pain syndrome G89.4 [place] [address] [address] September, Depression, unspecified depression type F32.9 and Cervicalgia M54.2 [place] [address] [address] September, Chronic pain syndrome G89.4 [place] [address] [address] Aug, Red stool R19.5 [place] [address] [address] Aug, Depression, unspecified depression type F32.9 ; Chronic pain syndrome G89.4 ; Chronic tension-type headache, intractable G44.221 ; Red stool R19.5 ; Hypothyroidism, unspecified E03.9 and Mixed hyperlipidemia E78.2 [place] [address] [address] Jul, Major depressive disorder, recurrent epi sode, moderate F33.1 [place] [address] [address] Jul, [place] [address] [address] Jul, Hypothyroidism, unspecified E03.9 [place] [address] [address] Jul, Hypothyroidism, unspecified E03.9 [place] [address] [address] Jul, Mixed hyperlipidemia E78.2 [place] [address] [address] Jul, Mixed hyperlipidemia E78.2 [facility] [address] [facility] [id number] [address] [place] [address] 08 Jul, 2017 Bronchitis J40 ; Cough R05 a nd Wheezing R06.2 [place] [address] [address] Jul, Major depressive disorder, recurrent epi sode, moderate F33.1 and Generalized anxiety disorder F41.1 [place] [address] [address] Jul, [place] [address] [address] Jul, Major depressive disorder, recurrent epi sode, moderate F33.1 and Generalized anxiety disorder F41.1 [place] [address] [address] Jul, Generalized anxiety disorder F41.1 and M christel depressive disorder, recurrent episode, moderate F33.1 [place] [address] [address] Jul, Mixed hyperlipidemia E78.2 [place] [address] [address] Jun, Depression, unspecified depression type F32.9 ; Cervicalgia M54.2 ; Trigger point M79.1 ; Hypothyroidism, unspecified E03.9 ; Screening, lipid Z13.220 and Mixed hyperlipidemia E78.2 [place] [address] [address] Jun, [place] [address] [address] May, [place] [address] [address] Apr, Acute bronchitis due to other specified organisms J20.8 and Tobacco abuse counseling Z71.6 [place] [address] [address] Mar, Depression, unspecified depression type F32.9 [place] [address] [address] Jan, Chronic pain syndrome G89.4 [place] [address] [address] Nov, Anxiety F41.9 ; Depression, unspecified depression type F32.9 and Chronic pain syndrome G89.4 [place] [address] [address] Oct, Anxiety F41.9 and Hypothyroidism, unspec ified E03.9 [facility] [address] [facility] [id number] [address] [place] [address] Oct, Left foot pain M79.672 and C ontusion of left foot, 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 S90.32XA [place] [address] [address] Oct, [place] [address] [address] September, Cervicalgia M54.2 [place] [address] [address] September, [place] [address] [address] Aug, Cervicalgia M54.2 [place] [address] [address] Aug, Cervicalgia M54.2 and Left arm numbness R20.0 [facility] [address] [address] Aug, [facility] [address] [address] Aug, [facility] [address] [address] Jul, [facility] [address] [address] Jul, [facility] [address] [address] Jul, [facility] [address] [address] Jul, Acute midline low back pain without scia zak M54.5 [facility] [address] [address] Jun, Acute midline low back pain without scia zak M54.5 [facility] [address] [address] Jun, Chronic pain syndrome G89.4 and Muscle s pasm M62.838 [facility] [address] [address] Jun, [facility] [address] [address] Jun, Acute midline low back pain without scia zak M54.5 [facility] [address] [address] Jun, [facility] [address] [address] May, [facility] [address] [address] May, Hypothyroidism, unspecified E03.9 ; 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 ; Hyperglycemia R73.9 ; Encounter for immunization Z23 and Mixed hyperlipidemia E78.2 [facility] [address] [address] 30 Apr, 2016 Fatigue 780.79 [facility] [address] [address] 10 Apr, 2016 Chronic pain syndrome G89.4 [facility] [address] [address] Mar, [facility] [address] [address] Mar, Chronic pain syndrome G89.4 [facility] [address] [address] Jan, [facility] [address] [address] Dec, [place] [address] [address] Dec, Chronic pain syndrome G89.4 [place] [address] [address] Dec, Trigger point M79.2 [place] [address] [address] Nov, Chronic pain syndrome G89.4 [place] [address] [address] Oct, Chronic pain syndrome G89.4 [place] [address] [address] Oct, Irritant contact dermatitis due to deter gent L24.0 [place] [address] [address] September, Hypothyroidism, unspecified E03.9 and De pression, unspecified depression type F32.9 [facility] [address] [address] September, Chronic pain syndrome G89.4 [facility] [address] [address] Aug, [facility] [id number] [place] [address] Aug, Trigger point M79.2 [facility] [id number] [place] [address] Jul, Chronic pain syndrome G89.[address] m 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.891 [facility] [id number] [place] [address] Jul, Chronic pain syndrome G89.[address] m 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.891 [facility] [address] [address] Jul, [facility] [id number] [place] [address] Jul, [facility] [address] [address] Jun, [facility] [id number] [place] [address] May, [facility] [address] [address] May, [facility] [address] [address] May, [facility] [address] [address] May, Pneumonia, organism unspecified, unspeci fied laterality, unspecified part of lung J18.9 [facility] [id number] [place] [address] May, Pneumonia, organism unspecified, unspeci fied laterality, unspecified part of lung J18.9 [facility] [id number] [place] [address] Apr, [facility] [address] [address] Apr, [facility] [id number] [place] [address] Apr, [facility] [address] [address] Apr, [facility] [id number] [place] [address] Apr, [facility] [address] [address] Apr, Epigastric pain R10.13 [facility] [id number] [place] [address] Mar, Tinea pedis B35.3 and Contact dermatitis and eczema due to detergents L24.0 [facility] [id number] [place] [address] Mar, [facility] [address] [address] Jan, [facility] [address] [address] Jan, [facility] [address] [address] Jan, [facility] [address] [address] Dec, [facility] [address] [address] Nov, [facility] [address] [address] Nov, Fatigue 780.79 [facility] [id number] [place] [address] Nov, [facility] [address] [address] Nov, Unspecified myalgia and myositis 729.1 [facility] [id number] [place] [address] Nov, Hypercalcemia 275.42 [facility] [id number] [place] [address] Nov, Fatigue 780.79 ; Bradycardia 427.89 ; Ch ronic pain 338.29 and Family history of diabetes mellitus V18.0 [facility] [id number] [place] [address] Nov, Fatigue 780.79 ; Chronic pain 338.29 ; F amily history of diabetes mellitus V18.0 ; Bradycardia 427.89 ; Hypothyroid 244.9 and Anxiety 300.00 [facility] [id number] [place] [address] Oct, [facility] [address] [address] September, [facility] [id number] [place] [address] Aug, [facility] [id number] [place] [address] Aug, [facility] [id number] [place] [address] Aug, [facility] [id number] [place] [address] Jul, [facility] [id number] [place] [address] Jul, [facility] [id number] [place] [address] Jul, [facility] [id number] [place] [address] Jul, [facility] [id number] [place] [address] Jun, [facility] [id number] [place] [address] Jun, [facility] [id number] [place] [address] Jun, [facility] [id number] [place] [address] Jun, [facility] [address] [facility] [id number] [place] [address] Jun, [facility] [address] [id number] [place] [address] Jun, [facility] [address] [id number] [place] [address] May, [facility] [address] [id number] [place] [address] May, [facility] [address] [id number] [place] [address] May, [facility] [address] [id number] [place] [address] May, [facility] [address] [id number] [place] [address] May, [facility] [address] [id number] [place] [address] May, [facility] [address] [id number] [place] [address] May, [facility] [address] [id number] [place] [address] May, [facility] [address] [id number] [place] [address] May, [facility] [address] [id number] [place] [address] May, [facility] [address] [id number] [place] [address] Apr, [facility] [address] [id number] [place] [address] Apr, [facility] [address] [id number] [place] [address] Apr, [facility] [address] [id number] [place] [address] Apr, [facility] [address] [id number] [place] [address] 19 Apr, 2014 [facility] [address] [id number] [place] [address] 19 Apr, 2014 [facility] [address] [id number] [place] [address] 18 Apr, 2014 [facility] [address] [id number] [place] [address] 18 Apr, 2014 [facility] [address] [id number] [place] [address] 17 Apr, 2014 [facility] [address] [id number] [place] [address] 17 Apr, 2014 [facility] [address] [id number] [place] [address] Apr, [facility] [address] [id number] [place] [address] 13 Apr, 2014 [facility] [address] [id number] [place] [address] 11 Apr, 2014 [facility] [address] [id number] [place] [address] 10 Apr, 2014 [facility] [address] [id number] [place] [address] 10 Apr, 2014 [facility] [address] [id number] [place] [address] 16 Mar, 2014 [facility] [address] [id number] [place] [address] 16 Mar, 2014 [facility] [address] [id number] [place] [address] 16 Mar, 2014 [facility] [address] [id number] [place] [address] 16 Mar, 2014 [facility] [address] [id number] [place] [address] 19 Jan, 2014 [facility] [address] [id number] [place] [address] Jan, [facility] [address] [facility] [id number] [place] [address] Jan, [facility] [address] [facility] [id number] [place] [address] Jan, [facility] [address] [id number] [place] [address] Jan, [facility] [address] [id number] [place] [address] Jan, [facility] [address] [facility] [id number] [place] [address] Dec, [facility] [address] [id number] [place] [address] Dec, [facility] [address] [id number] [place] [address] Dec, [facility] [address] [id number] [place] [address] Dec, [facility] [address] [id number] [place] [address] Nov, [facility] [address] [id number] [place] [address] Nov, [facility] [address] [id number] [place] [address] Nov, [facility] [address] [id number] [place] [address] Nov, [facility] [address] [id number] [place] [address] Oct, [facility] [address] [id number] [place] [address] Oct, [facility] [address] [id number] [place] [address] Oct, [facility] [address] [id number] [place] [address] Oct, [facility] [address] [id number] [place] [address] Oct, [facility] [address] [facility] [id number] [place] [address] Oct, [facility] [address] [facility] [id number] [place] [address] Oct, [facility] [address] [id number] [place] [address] Oct, [facility] [address] [id number] [place] [address] Oct, [facility] [address] [facility] [id number] [place] [address] Oct, [facility] [address] [id number] [place] [address] September, [facility] [address] [id number] [place] [address] September, [facility] [address] [id number] [place] [address] September, [facility] [address] [id number] [place] [address] September, [facility] [address] [id number] [place] [address] September, [facility] [address] [id number] [place] [address] September, [facility] [address] [id number] [place] [address] September, [facility] [address] [id number] [place] [address] September, [facility] [address] [id number] [place] [address] September, [facility] [address] [id number] [place] [address] Aug, [facility] [address] [id number] [place] [address] Aug, [facility] [address] [id number] [place] [address] 30 Aug, 2013 [facility] [address] [facility] [id number] [place] [address] 30 Aug, 2013 [facility] [address] [facility] [id number] [place] [address] Aug, [facility] [address] [id number] [place] [address] Aug, [facility] [address] [facility] [id number] [place] [address] Aug, [facility] [address] [facility] [id number] [place] [address] Aug, [facility] [address] [id number] [place] [address] Jul, [facility] [address] [id number] [place] [address] Jul, [facility] [address] [id number] [place] [address] Jul, [facility] [address] [id number] [place] [address] Jul, [facility] [address] [id number] [place] [address] 24 Jul, 2013 [facility] [address] [id number] [place] [address] Jul, [facility] [address] [id number] [place] [address] Jul, [facility] [address] [facility] [id number] [place] [address] 18 Jul, 2013 [facility] [address] [id number] [place] [address] 18 Jul, 2013 [facility] [address] [id number] [place] [address] Jul, [facility] [address] [id number] [place] [address] Jul, [facility] [address] [id number] [place] [address] Jul, [facility] [address] [id number] [place] [address] Jul, [facility] [address] [id number] [place] [address] Jul, [facility] [address] [id number] [place] [address] Jul, [facility] [address] [id number] [place] [address] Jul, [facility] [address] [id number] [place] [address] Jul, [facility] [address] [id number] [place] [address] Jul, [facility] [address] [id number] [place] [address] Jul, [facility] [address] [id number] [place] [address] Jun, [facility] [address] [id number] [place] [address] Jun, [facility] [address] [id number] [place] [address] May, [facility] [address] [id number] [place] [address] May, [facility] [address] [id number] [place] [address] Apr, [facility] [address] [id number] [place] [address] Apr, [facility] [address] [id number] [place] [address] Apr, [facility] [address] [id number] [place] [address] Apr, [facility] [address] [id number] [place] [address] Apr, [facility] [address] [facility] [id number] [place] [address] Apr, [facility] [address] [facility] [id number] [place] [address] Mar, [facility] [address] [id number] [place] [address] Mar, [facility] [address] [id number] [place] [address] Mar, [facility] [address] [id number] [place] [address] Mar, [facility] [address] [id number] [place] [address] Jan, [facility] [address] [id number] [place] [address] Jan, [facility] [address] [id number] [place] [address] Jan, [facility] [address] [id number] [place] [address] Dec, [facility] [address] [id number] [place] [address] Dec, [facility] [address] [id number] [place] [address] Dec, [facility] [address] [id number] [place] [address] Dec, [facility] [address] [id number] [place] [address] Nov, [facility] [address] [id number] [place] [address] Nov, [facility] [address] [id number] [place] [address] Nov, [facility] [address] [id number] [place] [address] Oct, [facility] [address] [id number] [place] [address] 24 Oct, 2012 [facility] [address] [id number] [place] [address] Oct, [facility] [address] [id number] [place] [address] Oct, [facility] [address] [id number] [place] [address] Oct, [facility] [address] [id number] [place] [address] Oct, [facility] [address] [id number] [place] [address] September, [facility] [address] [id number] [place] [address] Jul, [facility] [address] [id number] [place] [address] Jul, [facility] [address] [id number] [place] [address] Jul, [facility] [address] [id number] [place] [address] Jul, [facility] [address] [id number] [place] [address] Jul, [facility] [address] [id number] [place] [address] Jul, [facility] [address] [id number] [place] [address] Jun, [facility] [address] [id number] [place] [address] Apr, [facility] [address] [id number] [place] [address] Apr, [facility] [address] [id number] [place] [address] 24 Jan, 2012 [facility] [address] [id number] [place] [address] Dec, [facility] [address] [id number] [place] [address] Nov, [facility] [address] [id number] [place] [address] Oct, [facility] [address] [id number] [place] [address] September, [facility] [address] [id number] [place] [address] September, [facility] [address] [facility] [id number] [place] [address] Jul, [facility] [address] [id number] [place] [address] Jul, [facility] [address] [id number] [place] [address] Jul, [facility] [address] [id number] [place] [address] Jul, [facility] [address] [id number] [place] [address] Jul, [facility] [address] [id number] [place] [address] Jul, [facility] [address] [id number] [place] [address] Jul, [facility] [address] [id number] [place] [address] Jul, [facility] [address] [id number] [place] [address] 08 Jul, 2011 [facility] [address] [id number] [place] [address] 07 Jul, 2011 [facility] [address] [id number] [place] [address] Jun, [facility] [address] [id number] [place] [address] May, [facility] [id number] [place] [address] May, [facility] [id number] [place] [address] May, [facility] [id number] [place] [address] Apr, [facility] [id number] [place] [address] Apr, [facility] [id number] [place] [address] Mar, [facility] [address] [address] Mar, [facility] [address] [address] Mar, [facility] [id number] [place] [address] Mar, [facility] [id number] [place] [address] Mar, [facility] [id number] [place] [address] September, [facility] [id number] [place] [address] Mar, [facility] [id number] [place] [address] Dec, [facility] [id number] [place] [address] May, [facility] [id number] [place] [address] May, IMMUNIZATIONS No Known Immunizations SOCIAL HISTORY [...]
--- OUTSIDE RECORDS SUMMARY | 2019-10-01 11:01 | XMS REPORT ---
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 Name Role Phone Migration, Doctor Unavailable Unavailable PROBLEMS Type Condition ICD9-CM Code GKE69-CO Code Onset Dates Condition S tatus SNOMED Code Problem [facility] 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.891 Active 755981583 Problem Chronic pain syndrome G89.4 Active 245788408 Problem Hypothyroidism, unspecified E03.9 Ac tive 90041423 Problem Depression, unspecified depression type F32.9 Active 68509982 Problem Major depressive disorder, recurrent episode, moderate F33.1 Active 914499809 Problem Generalized anxiety disorder F41.1 A ctive 00728926 Problem Chronic tension-type headache, intractable G44.221 Active 887391942 Problem Major depressive disorder, recurrent, unspecified F33.9 Active 48703113 Problem Anxiety F41.9 Active 53996319 Problem Primary insomnia F51.01 Active 397 2004 Problem Mixed hyperlipidemia E78.2 Active 596504670 Problem Cervical spondylosis with radiculopathy M47.22 Active 078570267 Problem Chronic migraine G43.709 Active 377 78617 Problem Other chronic pain G89.29 Active 8 7973169 Problem Grief F43.21 Active 451936601 ALLERGIES No Information ENCOUNTERS Encounter Location Date Diagnosis [place] [address] [address] Aug, [place] [address] [address] Jul, Major depressive disorder, recurrent epi sode, moderate F33.1 [place] [address] [address] Jul, Cervical spondylosis with radiculopathy M47.22 [place] [address] [address] Jul, Pain in left knee M25.562 ; Other chroni c pain G89.29 and Financial difficulties Z59.8 [place] [address] [address] Jul, [place] [address] [place] [address] 13 Jul, 2019 Generalized anxiety disorder F41.1 and M ajor depressive disorder, recurrent episode, moderate F33.1 [place] [address] [address] 06 Jul, 2019 [place] [address] [address] 04 Jul, 2019 Cervical spondylosis with radiculopathy M47.22 [place] [address] [address] Jun, [facility] [address] [facility] [id number] [address] [place] [address] Jun, Allergic urticaria L50.0 [place] [address] [address] 15 Jun, 2019 Cervical spondylosis with radiculopathy M47.22 [place] [address] [address] Jun, Hypothyroidism, unspecified E03.9 [place] [address] [address] Jun, [place] [address] [address] Jun, Major depressive disorder, recurrent, un specified F33.9 ; Primary insomnia F51.01 and Strain of lumbar region, 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 S39.012A [place] [address] [address] 06 Jun, 2019 Cervical spondylosis with radiculopathy M47.22 [place] [address] [address] 02 Jun, 2019 Back strain, subsequent encounter S39.01 2D [place] [address] [address] Jun, [place] [address] [address] May, Cervical spondylosis with radiculopathy M47.22 [place] [address] [address] Apr, [place] [address] [address] Apr, Cervical spondylosis with radiculopathy M47.22 [place] [address] [address] Mar, Cervical spondylosis with radiculopathy M47.22 [place] [address] [address] Jan, Generalized anxiety disorder F41.1 and Sylvia kearney depressive disorder, recurrent, unspecified F33.9 [place] [address] [address] 16 Jan, 2019 Cervical spondylosis with radiculopathy M47.22 [place] [address] [address] Jan, [place] [address] [address] 09 Jan, 2019 Major depressive disorder, recurrent epi sode, moderate F33.1 and Generalized anxiety disorder F41.1 [place] [address] [address] Dec, [place] [address] [address] Dec, Cervical spondylosis with radiculopathy M47.22 [place] [address] [address] Nov, Cervical spondylosis with radiculopathy M47.22 [place] [address] [address] Nov, Hypothyroidism, unspecified E03.9 [place] [address] [address] Nov, Cervical spondylosis with radiculopathy M47.22 [place] [address] [address] Oct, Cervical spondylosis with radiculopathy M47.22 [place] [address] [address] Oct, Grief F43.21 [place] [address] [place] [address] Oct, [place] [address] [address] Oct, Major depressive disorder, recurrent epi sode, moderate F33.1 and Chronic tension-type headache, intractable G44.221 [place] [address] [address] Oct, [address] [address] Oct, Breast cancer screening by mammogram Z12 .[address] [address] September, Cervical spondylosis with radiculopathy M47.22 [place] [address] [address] September, Cervical spondylosis with radiculopathy M47.22 [place] [address] [address] Aug, Chronic pain syndrome G89.4 ; Cervicalgi a M54.2 ; Chronic nonintractable headache, unspecified headache type R51 and Alopecia L65.9 [place] [address] [place] [id number] [place] [address] Jul, Cervical spondylosis with radiculopathy M47.22 [place] [address] [address] Jul, [place] [address] [address] Jul, Cervical spondylosis with radiculopathy M47.22 [place] [address] [address] Jul, [place] [address] [address] Jul, Cervical spondylosis with radiculopathy M47.22 [place] [address] [address] Jul, Cervical spondylosis with radiculopathy M47.22 [place] [address] [address] Jul, [place] [address] [address] Jun, Major depressive disorder, recurrent epi sode, moderate F33.1 ; Low back pain M54.5 and Other chronic pain G89.29 [place] [address] [address] Jun, [place] [address] [address] Jun, Bronchitis J40 ; Mixed hyperlipidemia E7 8.2 ; Cervical spondylosis with radiculopathy M47.22 ; 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 ; Major depressive disorder, recurrent episode, moderate F33.1 ; Hypothyroidism, unspecified E03.9 ; Low back pain M54.5 ; Other chronic pain G89.29 and Chronic tension-type headache, intractable G44.221 [place] [address] [address] Jun, Cervical spondylosis with radiculopathy M47.22 [place] [address] [address] May, [place] [address] [address] May, Cervical spondylosis with radiculopathy M47.22 [facility] [address] [facility] [id number] [address] [place] [address] 07 May, 2018 Acute nasopharyngitis J00 an d Wheezing R06.2 [place] [address] [address] 04 May, 2018 [place] [address] [address] Apr, Cervical spondylosis with radiculopathy M47.22 [place] [address] [address] 19 Mar, 2018 Mixed hyperlipidemia E78.2 and Family hi story of stroke Z82.3 [place] [address] [address] 18 Mar, 2018 Cervical spondylosis with radiculopathy M47.22 [place] [address] [address] 17 Mar, 2018 Hypothyroidism, unspecified E03.9 ; Cerv icalgia M54.2 and Chronic migraine G43.709 [place] [address] [address] 15 Mar, 2018 Cervical spondylosis with radiculopathy M47.22 [place] [address] [address] 08 Mar, 2018 Chronic migraine G43.709 ; Cervicalgia M 54.2 and Family history of stroke Z82.3 [place] [address] [address] 14 Jan, 2018 Cervical spondylosis with radiculopathy M47.22 [place] [address] [address] 05 Jan, 2018 Reactive airway disease that is not asth ma R09.89 [facility] [address] [facility] [id number] [address] [place] [address] Dec, Allergic dermatitis due to o ther chemical product L23.5 [place] [address] [address] Dec, Cervical spondylosis with radiculopathy M47.22 and Depression, unspecified depression type F32.9 [place] [address] [address] Oct, [place] [address] [address] Oct, [place] [address] [address] Oct, [place] [address] [address] September, Chronic pain syndrome G89.4 [place] [address] [address] September, Depression, unspecified depression type F32.9 and Cervicalgia M54.2 [place] [address] [address] September, Chronic pain syndrome G89.4 [place] [address] [address] Aug, Red stool R19.5 [place] [address] [address] Aug, Depression, unspecified depression type F32.9 ; Chronic pain syndrome G89.4 ; Chronic tension-type headache, intractable G44.221 ; Red stool R19.5 ; Hypothyroidism, unspecified E03.9 and Mixed hyperlipidemia E78.2 [place] [address] [address] Jul, Major depressive disorder, recurrent epi sode, moderate F33.1 [place] [address] [address] Jul, [place] [address] [address] 14 Jul, 2017 Hypothyroidism, unspecified E03.9 [place] [address] [address] Jul, Hypothyroidism, unspecified E03.9 [facility] [address] [address] 08 Jul, 2017 Mixed hyperlipidemia E78.2 [place] [address] [address] Jul, Mixed hyperlipidemia E78.2 [facility] [address] [facility] [id number] [address] [place] [address] 08 Jul, 2017 Bronchitis J40 ; Cough R05 a nd Wheezing R06.2 [place] [address] [address] 07 Jul, 2017 Major depressive disorder, recurrent epi sode, moderate F33.1 and Generalized anxiety disorder F41.1 [place] [address] [address] Jul, [place] [address] [address] Jul, Major depressive disorder, recurrent epi sode, moderate F33.1 and Generalized anxiety disorder F41.1 [place] [address] [address] Jul, Generalized anxiety disorder F41.1 and M lopezor depressive disorder, recurrent episode, moderate F33.1 [place] [address] [address] Jul, Mixed hyperlipidemia E78.2 [place] [address] [address] Jun, Depression, unspecified depression type F32.9 ; Cervicalgia M54.2 ; Trigger point M79.1 ; Hypothyroidism, unspecified E03.9 ; Screening, lipid Z13.220 and Mixed hyperlipidemia E78.2 [place] [address] [address] Jun, [facility] [address] [address] May, [place] [address] [address] Apr, Acute bronchitis due to other specified organisms J20.8 and Tobacco abuse counseling Z71.6 [place] [address] [address] Mar, Depression, unspecified depression type F32.9 [place] [address] [address] Jan, Chronic pain syndrome G89.4 [place] [address] [address] Nov, Anxiety F41.9 ; Depression, unspecified depression type F32.9 and Chronic pain syndrome G89.4 [place] [address] [address] Oct, Anxiety F41.9 and Hypothyroidism, unspec ified E03.9 [facility] [address] [facility] [id number] [address] [place] [address] Oct, Left foot pain M79.672 and C ontusion of left foot, 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 S90.32XA [place] [address] [address] Oct, [place] [address] [address] September, Cervicalgia M54.2 [place] [address] [address] September, [place] [address] [address] Aug, Cervicalgia M54.2 [facility] [address] [address] Aug, Cervicalgia M54.2 and Left arm numbness R20.0 [facility] [address] [address] Aug, [facility] [address] [address] Aug, [facility] [address] [address] Jul, [facility] [address] [address] Jul, [facility] [address] [address] Jul, [facility] [address] [address] Jul, Acute midline low back pain without scia zak M54.5 [place] [address] [address] Jun, Acute midline low back pain without scia zak M54.5 [facility] [address] [address] Jun, Chronic pain syndrome G89.4 and Muscle s pasm M62.838 [place] [address] [address] Jun, [place] [address] [address] Jun, Acute midline low back pain without scia zak M54.5 [facility] [address] [address] Jun, [facility] [address] [address] May, [place] [address] [address] May, Hypothyroidism, unspecified E03.9 ; 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 ; Hyperglycemia R73.9 ; Encounter for immunization Z23 and Mixed hyperlipidemia E78.2 [facility] [address] [address] 30 Apr, 2016 Fatigue 780.79 [facility] [address] [address] 10 Apr, 2016 Chronic pain syndrome G89.4 [facility] [address] [address] 18 Mar, 2016 [facility] [address] [address] Mar, Chronic pain syndrome G89.4 [facility] [address] [address] 16 Jan, 2016 [facility] [address] [address] Dec, [facility] [address] [address] Dec, Chronic pain syndrome G89.4 [facility] [address] [address] Dec, Trigger point M79.2 [facility] [address] [address] Nov, Chronic pain syndrome G89.4 [facility] [address] [address] Oct, Chronic pain syndrome G89.4 [facility] [address] [address] Oct, Irritant contact dermatitis due to deter gent L24.0 [facility] [address] [address] September, Hypothyroidism, unspecified E03.9 and De pression, unspecified depression type F32.9 [facility] [address] [address] September, Chronic pain syndrome G89.4 [facility] [address] [address] Aug, [place] [id number] [place] [id number] [place] [address] Aug, Trigger point M79.2 [facility] [address] [address] Jul, Chronic pain syndrome G89.[address] m 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.891 [facility] [address] [facility] [place] [address] Jul, Chronic pain syndrome G89.[address] m 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.891 [facility] [address] [address] Jul, [facility] [address] [address] Jul, [facility] [address] [address] Jun, [facility] [address] [address] May, [facility] [address] [address] May, [facility] [address] [address] May, [facility] [address] [address] May, Pneumonia, organism unspecified, unspeci fied laterality, unspecified part of lung J18.9 [facility] [address] [place] [id number] [place] [address] May, Pneumonia, organism unspecified, unspeci fied laterality, unspecified part of lung J18.9 [facility] [address] [place] [id number] [place] [address] Apr, [facility] [address] [address] Apr, [facility] [address] [address] Apr, [facility] [address] [address] Apr, [facility] [address] [address] Apr, [facility] [address] [address] Apr, Epigastric pain R10.13 [facility] [address] [address] Mar, Tinea pedis B35.3 and Contact dermatitis and eczema due to detergents L24.0 [facility] [address] [address] Mar, [facility] [address] [address] Jan, [facility] [address] [address] Jan, [facility] [address] [address] Jan, [facility] [address] [address] Dec, [facility] [address] [address] Nov, [facility] [address] [address] Nov, Fatigue 780.79 [facility] [address] [address] Nov, [facility] [address] [address] Nov, Unspecified myalgia and myositis 729.1 [facility] [address] [address] Nov, Hypercalcemia 275.42 [facility] [address] [address] Nov, Fatigue 780.79 ; Bradycardia 427.89 ; Ch ronic pain 338.29 and Family history of diabetes mellitus V18.0 [facility] [address] [place] [id number] [place] [address] Nov, Fatigue 780.79 ; Chronic pain 338.29 ; F amily history of diabetes mellitus V18.0 ; Bradycardia 427.89 ; Hypothyroid 244.9 and Anxiety 300.00 [facility] [address] [place] [id number] [place] [address] Oct, [facility] [address] [place] [id number] [place] [address] September, [facility] [address] [place] [id number] [place] [address] Aug, [facility] [address] [place] [id number] [place] [address] Aug, [facility] [address] [address] Aug, [facility] [address] [place] [id number] [place] [address] Jul, [facility] [address] [place] [id number] [place] [address] Jul, [facility] [address] [place] [id number] [place] [address] Jul, [facility] [address] [place] [id number] [place] [address] Jul, [facility] [address] [place] [id number] [place] [address] Jun, [facility] [address] [address] Jun, [facility] [address] [place] [id number] [place] [address] Jun, [facility] [address] [address] Jun, [facility] [address] [id number] [place] [address] 08 Jun, 2014 [facility] [address] [id number] [place] [address] Jun, [facility] [address] [id number] [place] [address] May, [facility] [address] [id number] [place] [address] May, [facility] [address] [id number] [place] [address] May, [facility] [address] [id number] [place] [address] May, [facility] [address] [id number] [place] [address] May, [facility] [address] [id number] [place] [address] 15 May, 2014 [facility] [address] [id number] [place] [address] May, [facility] [address] [id number] [place] [address] May, [facility] [address] [id number] [place] [address] May, [facility] [address] [id number] [place] [address] May, [facility] [address] [id number] [place] [address] Apr, [facility] [address] [id number] [place] [address] Apr, [facility] [address] [id number] [place] [address] Apr, [facility] [address] [id number] [place] [address] Apr, [facility] [address] [id number] [place] [address] Apr, [facility] [address] [id number] [place] [address] 19 Apr, 2014 [facility] [address] [id number] [place] [address] 18 Apr, 2014 [facility] [address] [id number] [place] [address] 18 Apr, 2014 [facility] [address] [id number] [place] [address] 17 Apr, 2014 [facility] [address] [id number] [place] [address] 17 Apr, 2014 [facility] [address] [id number] [place] [address] Apr, [facility] [address] [id number] [place] [address] 13 Apr, 2014 [facility] [address] [id number] [place] [address] 11 Apr, 2014 [facility] [address] [id number] [place] [address] 10 Apr, 2014 [facility] [address] [id number] [place] [address] 10 Apr, 2014 [facility] [address] [id number] [place] [address] 16 Mar, 2014 [facility] [address] [id number] [place] [address] 16 Mar, 2014 [facility] [address] [id number] [place] [address] 16 Mar, 2014 [facility] [address] [id number] [place] [address] 16 Mar, 2014 [facility] [address] [id number] [place] [address] 19 Jan, 2014 [facility] [address] [id number] [place] [address] 19 Jan, 2014 [facility] [address] [id number] [place] [address] Jan, [facility] [address] [facility] [id number] [place] [address] Jan, [facility] [place] [address] [facility] [id number] [place] [address] Jan, [facility] [address] [id number] [place] [address] Jan, [facility] [address] [facility] [id number] [place] [address] Dec, [facility] [address] [facility] [id number] [place] [address] Dec, [facility] [address] [id number] [place] [address] Dec, [facility] [address] [id number] [place] [address] Dec, [facility] [address] [id number] [place] [address] Nov, [facility] [address] [id number] [place] [address] Nov, [facility] [address] [id number] [place] [address] Nov, [facility] [address] [id number] [place] [address] Nov, [facility] [address] [id number] [place] [address] Oct, [facility] [address] [facility] [id number] [place] [address] Oct, [facility] [address] [id number] [place] [address] Oct, [facility] [address] [id number] [place] [address] Oct, [facility] [address] [id number] [place] [address] Oct, [facility] [address] [id number] [place] [address] Oct, [facility] [address] [id number] [place] [address] Oct, [facility] [address] [id number] [place] [address] Oct, [facility] [address] [id number] [place] [address] Oct, [facility] [address] [id number] [place] [address] Oct, [facility] [address] [id number] [place] [address] September, [facility] [address] [id number] [place] [address] September, [facility] [address] [id number] [place] [address] September, [facility] [facility] [address] [id number] [place] [address] September, [facility] [place] [facility] [address] [id number] [place] [address] September, [facility] [place] [facility] [address] [id number] [place] [address] September, [facility] [place] [facility] [address] [id number] [place] [address] September, [facility] [place] [facility] [address] [id number] [place] [address] September, [facility] [place] [facility] [address] [id number] [place] [address] September, [facility] [place] [facility] [address] [id number] [place] [address] Aug, [facility] [place] [facility] [address] [id number] [place] [address] Aug, [facility] [place] [facility] [address] [id number] [place] [address] Aug, [facility] [place] [facility] [address] [facility] [id number] [place] [address] Aug, [facility] [place] [facility] [address] [facility] [id number] [place] [address] Aug, [facility] [place] [facility] [address] [id number] [place] [address] Aug, [facility] [place] [facility] [address] [id number] [place] [address] Aug, [facility] [place] [facility] [address] [facility] [id number] [place] [address] Aug, [facility] [place] [facility] [address] [id number] [place] [address] Jul, [facility] [place] [facility] [address] [id number] [place] [address] Jul, [facility] [place] [facility] [address] [id number] [place] [address] Jul, [facility] [place] [facility] [address] [id number] [place] [address] 24 Jul, 2013 [facility] [place] [facility] [address] [id number] [place] [address] 24 Jul, 2013 [facility] [place] [facility] [address] [id number] [place] [address] Jul, [facility] [place] [facility] [address] [id number] [place] [address] Jul, [facility] [place] [facility] [address] [id number] [place] [address] Jul, [facility] [place] [facility] [address] [id number] [place] [address] 18 Jul, 2013 [facility] [place] [facility] [address] [id number] [place] [address] 17 Jul, 2013 [facility] [place] [facility] [address] [id number] [place] [address] 17 Jul, 2013 [facility] [place] [facility] [address] [id number] [place] [address] 13 Jul, 2013 [facility] [place] [facility] [address] [facility] [id number] [place] [address] Jul, [facility] [place] [facility] [address] [id number] [place] [address] Jul, [facility] [place] [facility] [address] [id number] [place] [address] Jul, [facility] [place] [facility] [address] [id number] [place] [address] Jul, [facility] [place] [facility] [address] [id number] [place] [address] Jul, [facility] [place] [facility] [address] [id number] [place] [address] Jul, [facility] [place] [facility] [address] [id number] [place] [address] Jul, [facility] [place] [facility] [address] [id number] [place] [address] Jun, [facility] [place] [facility] [address] [id number] [place] [address] Jun, [facility] [place] [facility] [address] [id number] [place] [address] May, [facility] [place] [facility] [address] [id number] [place] [address] May, [facility] [place] [facility] [address] [id number] [place] [address] Apr, [facility] [place] [facility] [address] [id number] [place] [address] Apr, [facility] [place] [facility] [address] [id number] [place] [address] Apr, [facility] [place] [facility] [address] [id number] [place] [address] Apr, [facility] [place] [facility] [address] [id number] [place] [address] Apr, [facility] [place] [facility] [address] [id number] [place] [address] Apr, [facility] [place] [facility] [address] [id number] [place] [address] Mar, [facility] [place] [facility] [address] [id number] [place] [address] Mar, [facility] [place] [facility] [address] [id number] [place] [address] Mar, [facility] [place] [facility] [address] [id number] [place] [address] Mar, [facility] [place] [facility] [address] [id number] [place] [address] Jan, [facility] [place] [facility] [address] [id number] [place] [address] Jan, [facility] [place] [facility] [address] [id number] [place] [address] Jan, [facility] [place] [facility] [address] [id number] [place] [address] Dec, [facility] [place] [facility] [address] [id number] [place] [address] Dec, [facility] [place] [facility] [address] [id number] [place] [address] Dec, [facility] [place] [facility] [address] [id number] [place] [address] Dec, [facility] [place] [facility] [address] [id number] [place] [address] Nov, [facility] [place] [facility] [address] [id number] [place] [address] Nov, [facility] [place] [facility] [address] [id number] [place] [address] Nov, [facility] [place] [facility] [address] [id number] [place] [address] Oct, [facility] [place] [facility] [address] [id number] [place] [address] 24 Oct, 2012 [facility] [place] [facility] [address] [id number] [place] [address] Oct, [facility] [place] [facility] [address] [facility] [id number] [place] [address] Oct, [facility] [place] [facility] [address] [id number] [place] [address] Oct, [facility] [place] [facility] [address] [id number] [place] [address] Oct, [facility] [place] [facility] [address] [facility] [id number] [place] [address] September, [facility] [place] [facility] [address] [id number] [place] [address] Jul, [facility] [place] [facility] [address] [id number] [place] [address] Jul, [facility] [place] [facility] [address] [id number] [place] [address] Jul, [facility] [place] [facility] [address] [id number] [place] [address] Jul, [facility] [place] [facility] [address] [id number] [place] [address] Jul, [facility] [place] [facility] [address] [id number] [place] [address] Jul, [facility] [place] [facility] [address] [id number] [place] [address] Jun, [facility] [place] [facility] [address] [id number] [place] [address] Apr, [facility] [place] [facility] [address] [id number] [place] [address] Apr, [facility] [place] [facility] [address] [id number] [place] [address] 24 Jan, 2012 [facility] [place] [facility] [address] [id number] [place] [address] Dec, [facility] [place] [facility] [address] [id number] [place] [address] Nov, [facility] [place] [facility] [address] [id number] [place] [address] Oct, [facility] [place] [facility] [address] [id number] [place] [address] September, [facility] [place] [facility] [address] [id number] [place] [address] September, [facility] [place] [facility] [address] [id number] [place] [address] Jul, [facility] [place] [facility] [address] [id number] [place] [address] Jul, [facility] [place] [facility] [address] [id number] [place] [address] Jul, [facility] [place] [facility] [address] [id number] [place] [address] Jul, [facility] [place] [facility] [address] [id number] [place] [address] Jul, [facility] [place] [facility] [address] [id number] [place] [address] Jul, [facility] [place] [facility] [address] [id number] [place] [address] Jul, [facility] [place] [facility] [address] [id number] [place] [address] Jul, [facility] [place] [facility] [address] [id number] [place] [address] 08 Jul, 2011 [facility] [place] [facility] [address] [id number] [place] [address] Jul, [facility] [place] [facility] [address] [id number] [place] [address] Jun, [facility] [place] [facility] [address] [id number] [place] [address] May, [facility] [place] [facility] [address] [id number] [place] [address] May, [facility] [address] [id number] [place] [address] May, [facility] [id number] [place] [address] Apr, [facility] [address] [id number] [place] [address] Apr, [facility] [id number] [place] [address] Mar, [facility] [id number] [place] [address] Mar, [facility] [id number] [place] [address] Mar, [facility] [id number] [place] [address] Mar, [facility] [id number] [place] [address] Mar, [facility] [id number] [place] [address] September, [facility] [id number] [place] [address] Mar, [facility] [address] [id number] [place] [address] Dec, [facility] [id number] [place] [address] May, [facility] [address] [id number] [place] [address] May, IMMUNIZATIONS No Known Immunizations SOCIAL HISTORY [...]
--- OUTSIDE RECORDS SUMMARY | 2019-10-01 11:01 | XMS REPORT ---
Author Author Samra BARCENAS Organization [facility] Address [address] [place] [address] Care Team Providers Care Apartment Maintenance Name Role Phone CEDRICK BARCENAS Unavailable PROBLEMS Type Condition ICD9-CM Code LLO05-XG Code Onset Dates Condition S tatus SNOMED Code Problem penitentiary 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.891 Active 208335131 Problem Chronic pain syndrome G89.4 Active 605225692 Problem Hypothyroidism, unspecified E03.9 Ac tive 25940681 Problem Depression, unspecified depression type F32.9 Active 44911304 Problem Major depressive disorder, recurrent episode, moderate F33.1 Active 386033438 Problem Generalized anxiety disorder F41.1 A ctive 75542986 Problem Chronic tension-type headache, intractable G44.221 Active 090098934 Problem Major depressive disorder, recurrent, unspecified F33.9 Active 46198035 Problem Anxiety F41.9 Active 47286422 Problem Primary insomnia F51.01 Active 397 2004 Problem Mixed hyperlipidemia E78.2 Active 925835145 Problem Cervical spondylosis with radiculopathy M47.22 Active 710162109 Problem Chronic migraine G43.709 Active 377 13955 Problem Other chronic pain G89.29 Active 8 4235514 Problem Grief F43.21 Active [id number] ALLERGIES No Information ENCOUNTERS Encounter Location Date Diagnosis [facility] [address] [facility] [place] [facility] [id number] [address] [place] [phone] Aug, [facility] [address] [facility] [place] [id number] [address] [place] [phone] 17 Jul, 2019 Major depressive disorder, r ecurrent episode, moderate F33.1 [facility] [address] [facility] [place] [id number] [address] [place] [id number] Jul, Cervical spondylosis with ra diculopathy M47.22 [place] [address] [place] [address] 02 Jul, 2019 Pain in left knee M25.562 ; Other chronic pain G89.29 and Financial difficulties Z59.8 [place] [address] [place] [address] 20 Jul, 2019 [place] [address] [address] 13 Jul, 2019 Generalized anxiety disorder F41.1 and Major depressive disorder, recurrent episode, moderate F33.1 [place] [address] [place] [phone] 06 Jul, 2019 [place] [address] [place] [phone] 04 Jul, 2019 Cervical spondylosis with ra diculopathy M47.22 [place] [address] [address] Jun, [facility] [address] [place] [id number] [address] [place] [phone] Jun, Allergic urticaria L50.0 [place] [address] [place] [id number] [place] [phone] 15 Jun, 2019 Cervical spondylosis with ra diculopathy M47.22 [place] [address] [place] [phone] 14 Jun, 2019 Hypothyroidism, unspecified E03.9 [place] [address] [place] [id number] [address] [place] [phone] Jun, [place] [address] [place] [phone] Jun, Major depressive disorder, r ecurrent, unspecified F33.9 ; Primary insomnia F51.01 and Strain of lumbar region, 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 S39.012A [place] [address] [address] Jun, Cervical spondylosis with ra diculopathy M47.22 [facility] [address] [id number] [address] [place] [id number] Jun, Back strain, subsequent enco unter S39.012D [facility] [address] [id number] [address] [place] [phone] Jun, [facility] [address] [id number] [address] [place] [phone] May, Cervical spondylosis with ra diculopathy M47.22 [facility] [address] [id number] [address] [place] [phone] Apr, [facility] [address] [id number] [address] [place] [phone] Apr, Cervical spondylosis with ra diculopathy M47.22 [place] [address] [id number] [address] [place] [id number] Mar, Cervical spondylosis with ra diculopathy M47.22 [place] [address] [id number] [address] [place] [phone] Jan, Generalized anxiety disorder F41.1 and Major depressive disorder, recurrent, unspecified F33.9 [place] [address] [id number] [address] [place] [phone] Jan, Cervical spondylosis with ra diculopathy M47.22 [facility] [address] [id number] [address] [place] [phone] Jan, [facility] [address] [id number] [address] [place] [phone] 09 Jan, 2019 Major depressive disorder, r ecurrent episode, moderate F33.1 and Generalized anxiety disorder F41.1 [facility] [address] [id number] [address] [place] [phone] Dec, [facility] [address] [id number] [address] [place] [phone] Dec, Cervical spondylosis with ra diculopathy M47.22 [facility] [address] [id number] [address] [place] [phone] Nov, Cervical spondylosis with ra diculopathy M47.22 [facility] [address] [facility] [place] [id number] [address] [place] [phone] Nov, Hypothyroidism, unspecified E03.9 [facility] [address] [facility] [place] [id number] [address] [place] [phone] Nov, Cervical spondylosis with ra diculopathy M47.22 [facility] [address] [facility] [place] [id number] [address] [place] [phone] Oct, Cervical spondylosis with ra diculopathy M47.22 [place] [address] [facility] [place] [id number] [address] [place] [phone] Oct, Grief F43.[id number] [place] [address] Oct, [facility] [address] [facility] [place] [id number] [address] [place] [phone] Oct, Major depressive disorder, r ecurrent episode, moderate F33.1 and Chronic tension-type headache, intractable G44.221 [place] [address] [facility] [place] [id number] [address] [place] [phone] Oct, [place] [address] [facility] [place] [id number] [address] [place] [phone] Oct, Breast cancer screening by domo meehan Z12.31 [facility] [address] [facility] [place] [id number] [address] [place] [phone] September, Cervical spondylosis with ra diculopathy M47.22 [facility] [address] [facility] [place] [id number] [address] [place] [phone] September, Cervical spondylosis with ra diculopathy M47.22 [place] [address] [facility] [place] [id number] [address] [place] [phone] Aug, Chronic pain syndrome G89.4 ; Cervicalgia M54.2 ; Chronic nonintractable headache, unspecified headache type R51 and Alopecia L65.9 [place] [address] [facility] [place] [id number] [address] [place] [phone] Jul, Cervical spondylosis with ra diculopathy M47.22 [place] [address] [facility] [place] [id number] [address] [place] [phone] Jul, [place] [address] [facility] [place] [id number] [address] [place] [phone] Jul, Cervical spondylosis with ra diculopathy M47.22 [place] [address] [facility] [place] [id number] [address] [place] [phone] Jul, [place] [address] [facility] [place] [id number] [address] [place] [phone] Jul, Cervical spondylosis with ra diculopathy M47.22 [place] [address] [facility] [place] [id number] [address] [place] [phone] Jul, Cervical spondylosis with ra diculopathy M47.22 [place] [address] [facility] [place] [id number] [address] [place] [phone] Jul, [place] [address] [place] [id number] [address] [place] [phone] Jun, Major depressive disorder, r ecurrent episode, moderate F33.1 ; Low back pain M54.5 and Other chronic pain G89.29 [place] [address] [facility] [place] [id number] [address] [place] [phone] Jun, [place] [address] [facility] [place] [id number] [address] [place] [phone] Jun, Bronchitis J40 ; Mixed hyper lipidemia E78.2 ; Cervical spondylosis with radiculopathy M47.22 ; 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 ; Major depressive disorder, recurrent episode, moderate F33.1 ; Hypothyroidism, unspecified E03.9 ; Low back pain M54.5 ; Other chronic pain G89.29 and Chronic tension-type headache, intractable G44.221 [place] [address] [address] Jun, Cervical spondylosis with ra diculopathy M47.22 [place] [address] [address] May, [place] [address] [address] May, Cervical spondylosis with ra diculopathy M47.22 [facility] [place] [address] [address] May, Acute nasopharyngitis J00 an d Wheezing R06.2 [place] [address] [address] May, [place] [address] [address] Apr, Cervical spondylosis with ra diculopathy M47.22 [place] [address] [address] Mar, Mixed hyperlipidemia E78.2 a nd Family history of stroke Z82.3 [place] [address] [address] Mar, Cervical spondylosis with ra diculopathy M47.22 [place] [address] [address] 17 Mar, 2018 Hypothyroidism, unspecified E03.9 ; Cervicalgia M54.2 and Chronic migraine G43.709 [place] [address] [address] 15 Mar, 2018 Cervical spondylosis with ra diculopathy M47.22 [place] [address] [address] Mar, Chronic migraine G43.709 ; C ervicalgia M54.2 and Family history of stroke Z82.3 [facility] [address] [facility] [place] [id number] [address] [place] [id number] 14 Jan, 2018 Cervical spondylosis with ra diculopathy M47.22 [facility] [address] [facility] [place] [id number] [address] [place] [phone] Jan, Reactive airway disease that is not asthma R09.89 [facility] [address] [facility] [place] [id number] [address] [place] [phone] Dec, Allergic dermatitis due to o ther chemical product L23.5 [facility] [address] [facility] [place] [id number] [address] [place] [phone] Dec, Cervical spondylosis with ra diculopathy M47.22 and Depression, unspecified depression type F32.9 [facility] [address] [facility] [place] [id number] [address] [place] [phone] Oct, [facility] [address] [facility] [place] [id number] [address] [place] [phone] Oct, [facility] [address] [facility] [place] [id number] [address] [place] [phone] Oct, [facility] [address] [facility] [place] [id number] [address] [place] [phone] September, Chronic pain syndrome G89.4 [facility] [address] [facility] [place] [id number] [address] [place] [phone] September, Depression, unspecified depr ession type F32.9 and Cervicalgia M54.2 [facility] [address] [facility] [place] [id number] [address] [place] [phone] September, Chronic pain syndrome G89.4 [facility] [address] [facility] [place] [id number] [address] [place] [phone] Aug, Red stool R19.5 [facility] [address] [facility] [place] [id number] [address] [place] [phone] Aug, Depression, unspecified depr ession type F32.9 ; Chronic pain syndrome G89.4 ; Chronic tension-type headache, intractable G44.221 ; Red stool R19.5 ; Hypothyroidism, unspecified E03.9 and Mixed hyperlipidemia E78.2 [place] [address] [address] Jul, Major depressive disorder, r ecurrent episode, moderate F33.1 [facility] [address] [address] Jul, [facility] [address] [address] Jul, Hypothyroidism, unspecified E03.9 [place] [address] [address] Jul, Hypothyroidism, unspecified E03.9 [facility] [address] [address] Jul, Mixed hyperlipidemia E78.2 [facility] [address] [address] Jul, Mixed hyperlipidemia E78.2 [facility] [address] [address] Jul, Bronchitis J40 ; Cough R05 a nd Wheezing R06.2 [facility] [address] [address] Jul, Major depressive disorder, r ecurrent episode, moderate F33.1 and Generalized anxiety disorder F41.1 [place] [address] [address] Jul, [place] [address] [address] Jul, Major depressive disorder, r ecurrent episode, moderate F33.1 and Generalized anxiety disorder F41.1 [place] [address] [place] [address] Jul, Generalized anxiety disorder F41.1 and Major depressive disorder, recurrent episode, moderate F33.1 [place] [address] [address] Jul, Mixed hyperlipidemia E78.2 [place] [address] [address] Jun, Depression, unspecified depr ession type F32.9 ; Cervicalgia M54.2 ; Trigger point M79.1 ; Hypothyroidism, unspecified E03.9 ; Screening, lipid Z13.220 and Mixed hyperlipidemia E78.2 [place] [address] [address] Jun, [place] [address] [address] May, [place] [address] [address] Apr, Acute bronchitis due to othe r specified organisms J20.8 and Tobacco abuse counseling Z71.6 [place] [address] [address] Mar, Depression, unspecified depr ession type F32.9 [place] [address] [address] Jan, Chronic pain syndrome G89.4 [place] [address] [address] Nov, Anxiety F41.9 ; Depression, unspecified depression type F32.9 and Chronic pain syndrome G89.4 [place] [address] [address] Oct, Anxiety F41.9 and Hypothyroi dism, unspecified E03.9 [facility] [address] [address] 05 [place], 2017 Left foot pain M79.672 and C ontusion of left foot, 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 S90.32XA [facility] [address] [id number] [address] [place] [address] Oct, [facility] [address] [facility] [place] [id number] [address] [place] [phone] September, Cervicalgia M54.2 [facility] [address] [facility] [place] [id number] [address] [place] [phone] September, [facility] [address] [id number] [address] [place] [id number] Aug, Cervicalgia M54.2 [facility] [address] [facility] [place] [id number] [address] [place] [phone] Aug, Cervicalgia M54.2 and Left a rm numbness R20.0 [facility] [address] [facility] [place] [id number] [address] [place] [phone] Aug, [facility] [address] [facility] [place] [id number] [address] [place] [id number] Aug, [facility] [address] [facility] [place] [id number] [address] [place] [phone] Jul, [facility] [address] [facility] [place] [id number] [address] [place] [phone] Jul, [facility] [address] [facility] [place] [id number] [address] [place] [phone] Jul, [facility] [address] [facility] [place] [id number] [address] [place] [address] Jul, Acute midline low back pain without sciatica M54.5 [facility] [address] [facility] [place] [id number] [address] [place] [phone] Jun, Acute midline low back pain without sciatica M54.5 [facility] [address] [facility] [place] [id number] [address] [place] [address] Jun, Chronic pain syndrome G89.4 and Muscle spasm M62.838 [facility] [address] [id number] [address] [place] [address] Jun, [facility] [address] [id number] [address] [place] [phone] Jun, Acute midline low back pain without sciatica M54.5 [facility] [address] [id number] [address] [place] [phone] Jun, [facility] [address] [id number] [address] [place] [phone] May, [facility] [address] [id number] [address] [place] [phone] May, Hypothyroidism, unspecified E03.9 ; Chronic pain syndrome G89.4 ; Hyperglycemia R73.9 ; Encounter for immunization Z23 and Mixed hyperlipidemia E78.2 [facility] [address] [facility] [place] [id number] [address] [place] [phone] Apr, Fatigue 780.79 [facility] [address] [id number] [address] [place] [phone] Apr, Chronic pain syndrome G89.4 [facility] [address] [facility] [place] [id number] [address] [place] [id number] Mar, [facility] [address] [facility] [place] [id number] [address] [place] [phone] Mar, Chronic pain syndrome G89.4 [facility] [address] [id number] [address] [place] [phone] Jan, [facility] [address] [facility] [place] [id number] [address] [place] [phone] Dec, [facility] [address] [facility] [place] [id number] [address] [place] [phone] Dec, Chronic pain syndrome G89.4 [facility] [address] [facility] [place] [id number] [address] [place] [phone] Dec, Trigger point M79.2 [facility] [address] [id number] [address] [place] [phone] Nov, Chronic pain syndrome G89.4 [facility] [address] [id number] [address] [place] [phone] Oct, Chronic pain syndrome G89.4 [facility] [address] [facility] [place] [id number] [address] [place] [phone] Oct, Irritant contact dermatitis due to detergent L24.0 [facility] [address] [facility] [place] [id number] [address] [place] [phone] September, Hypothyroidism, unspecified E03.9 and Depression, unspecified depression type F32.9 [facility] [address] [facility] [place] [id number] [address] [place] [phone] September, Chronic pain syndrome G89.4 [facility] [address] [facility] [place] [id number] [address] [place] [phone] Aug, [facility] [address] [id number] [address] [place] [phone] Aug, Trigger point M79.2 [facility] [address] [facility] [place] [id number] [address] [place] [phone] Jul, Chronic pain syndrome G89.4 and 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 [facility] [address] [id number] [address] [place] [id number] Jul, Chronic pain syndrome G89.4 and 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 [facility] [address] [id number] [address] [place] [phone] Jul, [facility] [address] [facility] [place] [facility] [id number] [address] [place] [phone] Jul, [facility] [address] [facility] [place] [facility] [id number] [address] [place] [phone] Jun, [facility] [address] [facility] [place] [facility] [id number] [address] [place] [phone] May, [facility] [address] [id number] [address] [place] [phone] May, [facility] [address] [id number] [address] [place] [phone] May, [facility] [address] [id number] [address] [place] [phone] May, Pneumonia, organism unspecif ied, unspecified laterality, unspecified part of lung J18.9 [facility] [address] [id number] [address] [place] [phone] May, Pneumonia, organism unspecif ied, unspecified laterality, unspecified part of lung J18.9 [facility] [address] [id number] [address] [place] [phone] Apr, [facility] [address] [id number] [address] [place] [phone] Apr, [facility] [address] [id number] [address] [place] [phone] Apr, [facility] [address] [id number] [address] [place] [phone] Apr, [facility] [address] [id number] [address] [place] [id number] Apr, [facility] [address] [id number] [address] [place] [id number] Apr, Epigastric pain R10.13 [facility] [address] [id number] [address] [place] [phone] Mar, Tinea pedis B35.3 and Contac t dermatitis and eczema due to detergents L24.0 [facility] [address] [id number] [address] [place] [address] Mar, [facility] [address] [id number] [address] [place] [id number] Jan, [facility] [address] [facility] [place] [id number] [address] [place] [phone] Jan, [facility] [address] [address] Jan, [facility] [address] [facility] [place] [id number] [address] [place] [id number] Dec, [facility] [id number] [place] [phone] Nov, [facility] [id number] [place] [address] Nov, Fatigue 780.79 [facility] [id number] [place] [phone] Nov, [facility] [id number] [place] [phone] Nov, Unspecified myalgia and myos itis 729.1 [facility] [address] [id number] [address] [place] [phone] Nov, Hypercalcemia 275.42 [facility] [address] [address] Nov, Fatigue 780.79 ; Bradycardia 427.89 ; Chronic pain 338.29 and Family history of diabetes mellitus V18.0 [facility] [address] [address] Nov, Fatigue 780.79 ; Chronic idania n 338.29 ; Family history of diabetes mellitus V18.0 ; Bradycardia 427.89 ; Hypothyroid 244.9 and Anxiety 300.00 [facility] [address] [id number] [address] [place] [phone] Oct, [facility] [id number] [place] [phone] September, [facility] [id number] [place] [phone] Aug, [facility] [address] [id number] [address] [place] [address], [place] [address] 14 Aug, 2014 [facility] [address] [id number] [address] [place] [address], [place] [address] Aug, [facility] [address] [id number] [address] [place] [address], [place] [address] Jul, [facility] [address] [id number] [address] [place] [address], [place] [address] Jul, [facility] [address] [id number] [address] [place] [address], [place] [address] Jul, [facility] [address] [id number] [address] [place] [address], [place] [address] Jul, [facility] [address] [id number] [address] [place] [address], [place] [address] Jun, [facility] [address] [id number] [address] [place] [address], [place] [address] Jun, [facility] [address] [id number] [address] [place] [address], [place] [address] Jun, [facility] [address] [id number] [address] [place] [address], [place] [address] Jun, [facility] [address] [id number] [address] [place] [address], [place] [address] Jun, [facility] [address] [id number] [address] [place] [phone] Jun, [facility] [address] [id number] [address] [place] [address], [place] [address] May, [facility] [address] [id number] [address] [place] [address], [place] [address] May, [facility] [address] [id number] [address] [place] [address], [place] [address] May, [facility] [address] [id number] [address] [place] [id number] May, [facility] [address] [id number] [address] [place] [address], [place] [address] 15 May, 2014 [facility] [address] [id number] [address] [place] [address], [place] [address] 15 May, 2014 [facility] [address] [id number] [address] [place] [address], [place] [address] May, [facility] [address] [id number] [address] [place] [address], [place] [address] May, [facility] [address] [id number] [address] [place] [address], [place] [address] May, [facility] [address] [id number] [address] [place] [address], [place] [address] May, [facility] [address] [id number] [address] [place] [address], [place] [address] Apr, [facility] [address] [id number] [address] [place] [address], [place] [address] Apr, [facility] [address] [id number] [address] [place] [address], [place] [address] Apr, [facility] [address] [id number] [address] [place] [address], [place] [address] Apr, [facility] [address] [id number] [address] [place] [address], [place] [address] Apr, [facility] [address] [id number] [address] [place] [address] Apr, [facility] [address] [id number] [address] [place] [address], [place] [address] 18 Apr, 2014 [facility] [address] [id number] [address] [place] [address], [place] [address] 18 Apr, 2014 [facility] [address] [id number] [address] [place] [address], [place] [address] 17 Apr, 2014 [facility] [address] [id number] [address] [place] [address], [place] [address] 17 Apr, 2014 [facility] [address] [id number] [address] [place] [address], [place] [address] 13 Apr, 2014 [facility] [address] [id number] [address] [place] [address], [place] [address] 13 Apr, 2014 [facility] [address] [id number] [address] [place] [address], [place] [address] 11 Apr, 2014 [facility] [address] [id number] [address] [place] [address], [place] [address] 10 Apr, 2014 [facility] [address] [id number] [address] [place] [address], [place] [address] 10 Apr, 2014 [facility] [address] [id number] [address] [place] [address], [place] [address] 16 Mar, 2014 [facility] [address] [id number] [address] [place] [address], [place] [address] 16 Mar, 2014 [facility] [address] [id number] [address] [place] [address], [place] [address] 16 Mar, 2014 [facility] [address] [id number] [address] [place] [address], [place] [address] 16 Mar, 2014 [facility] [address] [id number] [address] [place] [address], [place] [address] 19 Jan, 2014 [facility] [address] [id number] [address] [place] [address], [place] [address] 19 Jan, 2013 [facility] [address] [id number] [address] [place] [address], [place] [address] 18 Jan, 2014 [facility] [address] [id number] [address] [place] [address], [place] [address] 18 Jan, 2013 [facility] [address] [id number] [address] [place] [address], [place] [address] 02 Sep, 2013 [facility] [address] [id number] [address] [place] [address], [place] [address] Jan, [facility] [address] [id number] [facility] [place] [address] Dec, [facility] [address] [id number] [address] [place] [address], [place] [address] Dec, [facility] [address] [id number] [address] [place] [address], [place] [address] Dec, [facility] [address] [id number] [address] [place] [address], [place] [address] Dec, [facility] [address] [id number] [address] [place] [address], [place] [address] Nov, [facility] [address] [id number] [address] [place] [address], [place] [address] Nov, [facility] [address] [id number] [address] [place] [address], [place] [address] Nov, [facility] [address] [id number] [address] [place] [address], [place] [address] Nov, [facility] [address] [id number] [address] [place] [address], [place] [address] Oct, [facility] [address] [id number] [address] [place] [address], [place] [address] Oct, [facility] [address] [id number] [address] [place] [address], [place] [address] Oct, [facility] [address] [id number] [address] [place] [address], [place] [address] Oct, [facility] [address] [id number] [address] [place] [address], [place] [address] Oct, [facility] [address] [id number] [address] [place] [address], [place] [address] Oct, [facility] [address] [id number] [address] [place] [address], [place] [address] Oct, [facility] [address] [id number] [address] [place] [address], [place] [address] Oct, [facility] [address] [id number] [address] [place] [address], [place] [address] Oct, [facility] [address] [id number] [address] [place] [address], [place] [address] Oct, [facility] [address] [id number] [address] [place] [address], [place] [address] September, [facility] [address] [id number] [address] [place] [address], [place] [address] September, [facility] [address] [id number] [address] [place] [address], [place] [address] September, [facility] [address] [id number] [address] [place] [address], [place] [address] September, [facility] [address] [id number] [address] [place] [address], [place] [address] September, [facility] [address] [id number] [address] [place] [address], [place] [address] September, [facility] [address] [id number] [address] [place] [address], [place] [address] September, [facility] [address] [id number] [address] [place] [address], [place] [address] September, [facility] [address] [id number] [address] [place] [address], [place] [address] September, [facility] [address] [id number] [address] [place] [address], [place] [address] Aug, [facility] [address] [id number] [address] [place] [address], [place] [address] Aug, [facility] [address] [id number] [address] [place] [address], [place] [address] Aug, [facility] [address] [id number] [address] [place] [address], [place] [address] Aug, [facility] [place] [address] [id number] [facility] [place] [address] Aug, [facility] [address] [id number] [address] [place] [address], [place] [address] Aug, [facility] [address] [id number] [address] [place] [address], [place] [address] Aug, [facility] [address] [id number] [address] [place] [address], [place] [address] Aug, [facility] [address] [id number] [address] [place] [address], [place] [address] Jul, [facility] [address] [id number] [address] [place] [address], [place] [address] Jul, [facility] [address] [id number] [address] [place] [address], [place] [address] Jul, [facility] [address] [id number] [address] [place] [address], [place] [address] Jul, [facility] [address] [id number] [address] [place] [address], [place] [address] Jul, [facility] [address] [id number] [address] [place] [address], [place] [address] Jul, [facility] [address] [id number] [address] [place] [address], [place] [address] Jul, [facility] [address] [id number] [address] [place] [address], [place] [address] Jul, [facility] [address] [id number] [address] [place] [address], [place] [address] 18 Jul, 2013 [facility] [address] [id number] [address] [place] [address], [place] [address] 17 Jul, 2013 [facility] [address] [id number] [address] [place] [address], [place] [address] 17 Jul, 2013 [facility] [address] [id number] [address] [place] [address], [place] [address] Jul, [facility] [address] [id number] [address] [place] [address], [place] [address] Jul, [facility] [address] [id number] [address] [place] [address], [place] [address] Jul, [facility] [address] [id number] [address] [place] [address], [place] [address] Jul, [facility] [address] [id number] [address] [place] [address], [place] [address] Jul, [facility] [address] [id number] [address] [place] [address], [place] [address] Jul, [facility] [address] [id number] [address] [place] [address], [place] [address] Jul, [facility] [address] [id number] [address] [place] [address], [place] [address] Jul, [facility] [address] [id number] [address] [place] [address], [place] [address] Jun, [facility] [address] [id number] [address] [place] [address], [place] [address] Jun, [facility] [address] [id number] [address] [place] [address], [place] [address] May, [facility] [address] [id number] [address] [place] [address], [place] [address] May, [facility] [address] [id number] [address] [place] [address], [place] [address] Apr, [facility] [address] [id number] [address] [place] [address], [place] [address] Apr, [facility] [address] [id number] [address] [place] [address], [place] [address] Apr, [facility] [address] [id number] [address] [place] [address], [place] [address] Apr, [facility] [address] [id number] [address] [place] [address], [place] [address] Apr, [facility] [address] [id number] [address] [place] [address], [place] [address] Apr, [facility] [address] [id number] [address] [place] [address], [place] [address] Mar, [facility] [address] [id number] [address] [place] [address], [place] [address] Mar, [facility] [address] [id number] [address] [place] [address], [place] [address] Mar, [facility] [address] [id number] [address] [place] [address], [place] [address] Mar, [facility] [address] [id number] [address] [place] [address], [place] [address] Jan, [facility] [address] [id number] [address] [place] [address], [place] [address] Jan, [facility] [address] [id number] [address] [place] [address], [place] [address] Jan, [facility] [address] [id number] [address] [place] [address], [place] [address] Dec, [facility] [address] [id number] [address] [place] [address], [place] [address] Dec, [facility] [address] [id number] [address] [place] [address], [place] [address] Dec, [facility] [address] [id number] [address] [place] [address], [place] [address] Dec, [facility] [address] [id number] [address] [place] [address], [place] [address] Nov, [facility] [address] [id number] [address] [place] [address], [place] [address] Nov, [facility] [address] [id number] [address] [place] [address], [place] [address] Nov, [facility] [address] [id number] [facility] [place] [address] Oct, [facility] [address] [id number] [address] [place] [address], [place] [address] Oct, [facility] [address] [id number] [address] [place] [address], [place] [address] Oct, [facility] [address] [id number] [address] [place] [address], [place] [address] Oct, [facility] [address] [id number] [address] [place] [address], [place] [address] Oct, [facility] [address] [id number] [address] [place] [address], [place] [address] Oct, [facility] [address] [id number] [address] [place] [address], [place] [address] September, [facility] [address] [id number] [address] [place] [address], [place] [address] Jul, [facility] [address] [id number] [address] [place] [address], [place] [address] Jul, [facility] [address] [id number] [address] [place] [address], [place] [address] Jul, [facility] [address] [id number] [address] [place] [address], [place] [address] Jul, [facility] [address] [id number] [address] [place] [address], [place] [address] Jul, [facility] [address] [id number] [address] [place] [address], [place] [address] Jul, [facility] [address] [id number] [address] [place] [address], [place] [address] Jun, [facility] [address] [id number] [address] [place] [address], [place] [address] Apr, [facility] [address] [id number] [address] [place] [address], [place] [address] Apr, [facility] [address] [id number] [address] [place] [address], [place] [address] Jan, [facility] [address] [id number] [address] [place] [address], [place] [address] Dec, [facility] [address] [id number] [address] [place] [address], [place] [address] Nov, [facility] [address] [id number] [address] [place] [address], [place] [address] Oct, [facility] [address] [id number] [address] [place] [address], [place] [address] September, [facility] [address] [id number] [address] [place] [address], [place] [address] September, [facility] [address] [id number] [address] [place] [address], [place] [address] Jul, [facility] [address] [id number] [address] [place] [address], [place] [address] Jul, [facility] [address] [id number] [address] [place] [address], [place] [id number] [address] [facility] [address] [id number] [address] [place] [address], [place] [address] Jul, [facility] [address] [id number] [address] [place] [address], [place] [address] Jul, [facility] [address] [id number] [address] [place] [address], [place] [address] 17 Jul, 2011 [facility] [address] [id number] [address] [place] [address], [place] [address] 13 Jul, 2011 [facility] [address] [id number] [address] [place] [address], [place] [address] 11 Jul, 2011 [facility] [address] [id number] [address] [place] [address], [place] [id number] 08 Jul, 2011 [facility] [address] [id number] [address] [place] [address], [place] [address] Jul, [facility] [address] [id number] [address] [place] [address], [place] [address] Jun, [facility] [address] [id number] [address] [place] [address], [place] [address] May, [facility] [address] [id number] [address] [place] [address], [place] [address] May, [facility] [address] [id number] [address] [place] [address], [place] [address] May, [facility] [address] [id number] [address] [place] [address], [place] [address] Apr, [facility] [address] [id number] [address] [place] [address], [place] [address] Apr, [facility] [address] [id number] [address] [place] [address], [place] [address] Mar, [facility] [address] [id number] [address] [place] [address], [place] [address] Mar, [facility] [address] [id number] [address] [place] [id number] Mar, [facility] [address] [id number] [address] [place] [id number] Mar, [facility] [address] [id number] [address] [place] [id number] Mar, [facility] [address] [id number] [address] [place] [address], [place] [address] September, [facility] [address] [id number] [address] [place] [address], [place] [address] Mar, [facility] [address] [id number] [address] [place] [address], [place] [address] Dec, [facility] [address] [id number] [address] [place] [id number] May, [facility] [address] [facility] [place] 2[place] [id number] [address] [place] [id number] May, IMMUNIZATIONS No Known Immunizations SOCIAL HISTORY [...]
--- OUTSIDE RECORDS SUMMARY | 2019-10-01 11:02 | XMS REPORT ---
Author Author Samra BARCENAS Organization [facility] Address [address] [place] [address] Care Team Providers Care Director Audience Marketing Name Role Phone CEDRICK BARCENAS Unavailable PROBLEMS Type Condition ICD9-CM Code NVP06-XD Code Onset Dates Condition S tatus SNOMED Code Problem detention 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.891 Active 805300048 Problem Chronic pain syndrome G89.4 Active 406382625 Problem Hypothyroidism, unspecified E03.9 Ac tive 47065135 Problem Depression, unspecified depression type F32.9 Active 97951308 Problem Major depressive disorder, recurrent episode, moderate F33.1 Active 777580178 Problem Generalized anxiety disorder F41.1 A ctive 48092547 Problem Chronic tension-type headache, intractable G44.221 Active 881806377 Problem Major depressive disorder, recurrent, unspecified F33.9 Active 18988338 Problem Anxiety F41.9 Active 92309675 Problem Primary insomnia F51.01 Active 397 2004 Problem Mixed hyperlipidemia E78.2 Active 325885203 Problem Cervical spondylosis with radiculopathy M47.22 Active 689234090 Problem Chronic migraine G43.709 Active 377 32995 Problem Other chronic pain G89.29 Active 8 0350133 Problem Grief F43.21 Active 134848926 ALLERGIES No Information ENCOUNTERS Encounter Location Date Diagnosis [facility] [id number] [place] [address] Jul, [facility] [address] [address] Jul, Cervical spondylosis with radiculopathy M47.22 [facility] [address] [address] Jul, Pain in left knee M25.562 ; Other chroni c pain G89.29 and Financial difficulties Z59.8 [place] [address] [address] Jul, [place] [address] [place] [address] 13 Jul, 2019 Generalized anxiety disorder F41.1 and Sylvia kearney depressive disorder, recurrent episode, moderate F33.1 [place] [address] [address] 06 Jul, 2019 [place] [address] [address] 04 Jul, 2019 Cervical spondylosis with radiculopathy M47.22 [place] [address] [address] Jun, [facility] [address] [facility] [id number] [address] [place] [address] Jun, Allergic urticaria L50.0 [place] [address] [address] 15 Jun, 2019 Cervical spondylosis with radiculopathy M47.22 [place] [address] [address] 14 Jun, 2019 Hypothyroidism, unspecified E03.9 [place] [address] [address] 14 Jun, 2019 [place] [address] [address] Jun, Major depressive disorder, recurrent, un specified F33.9 ; Primary insomnia F51.01 and Strain of lumbar region, 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 S39.012A [place] [address] [address] 06 Jun, 2019 Cervical spondylosis with radiculopathy M47.22 [place] [address] [address] 02 Jun, 2019 Back strain, subsequent encounter S39.01 2D [place] [address] [address] Jun, [place] [address] [address] May, Cervical spondylosis with radiculopathy M47.22 [place] [address] [address] Apr, [place] [address] [address] Apr, Cervical spondylosis with radiculopathy M47.22 [place] [address] [address] Mar, Cervical spondylosis with radiculopathy M47.22 [place] [address] [address] Jan, Generalized anxiety disorder F41.1 and M lopezor depressive disorder, recurrent, unspecified F33.9 [place] [address] [address] 16 Jan, 2019 Cervical spondylosis with radiculopathy M47.22 [place] [address] [address] Jan, [place] [address] [address] 09 Jan, 2019 Major depressive disorder, recurrent epi sode, moderate F33.1 and Generalized anxiety disorder F41.1 [place] [address] [address] Dec, [place] [address] [address] Dec, Cervical spondylosis with radiculopathy M47.22 [place] [address] [address] Nov, Cervical spondylosis with radiculopathy M47.22 [place] [address] [address] Nov, Hypothyroidism, unspecified E03.9 [place] [address] [address] Nov, Cervical spondylosis with radiculopathy M47.22 [place] [address] [address] Oct, Cervical spondylosis with radiculopathy M47.22 [place] [address] [address] Oct, Grief F43.21 [address] [place] [address] Oct, [address] [address] Oct, Major depressive disorder, recurrent epi sode, moderate F33.1 and Chronic tension-type headache, intractable G44.221 [place] [address] [address] Oct, [address] [address] Oct, Breast cancer screening by mammogram Z12 .31 [place] [address] [address] September, Cervical spondylosis with radiculopathy M47.22 [place] [address] [address] September, Cervical spondylosis with radiculopathy M47.22 [place] [address] [address] Aug, Chronic pain syndrome G89.4 ; Cervicalgi a M54.2 ; Chronic nonintractable headache, unspecified headache type R51 and Alopecia L65.9 [place] [address] [address] Jul, Cervical spondylosis with radiculopathy M47.22 [place] [address] [address] Jul, [place] [address] [address] Jul, Cervical spondylosis with radiculopathy M47.22 [place] [address] [address] Jul, [place] [address] [address] Jul, Cervical spondylosis with radiculopathy M47.22 [place] [address] [address] Jul, Cervical spondylosis with radiculopathy M47.22 [place] [address] [address] Jul, [place] [address] [address] Jun, Major depressive disorder, recurrent epi sode, moderate F33.1 ; Low back pain M54.5 and Other chronic pain G89.29 [place] [address] [address] Jun, [place] [address] [address] Jun, Bronchitis J40 ; Mixed hyperlipidemia E7 8.2 ; Cervical spondylosis with radiculopathy M47.22 ; detention 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.891 ; Major depressive disorder, recurrent episode, moderate F33.1 ; Hypothyroidism, unspecified E03.9 ; Low back pain M54.5 ; Other chronic pain G89.29 and Chronic tension-type headache, intractable G44.221 [place] [address] [address] Jun, Cervical spondylosis with radiculopathy M47.22 [place] [address] [address] May, [place] [address] [address] May, Cervical spondylosis with radiculopathy M47.22 [facility] [address] [facility] [id number] [place] [address] 07 May, 2018 Acute nasopharyngitis J00 an d Wheezing R06.2 [place] [address] [address] 04 May, 2018 [place] [address] [address] Apr, Cervical spondylosis with radiculopathy M47.22 [place] [address] [address] 19 Mar, 2018 Mixed hyperlipidemia E78.2 and Family hi story of stroke Z82.3 [place] [address] [address] 18 Mar, 2018 Cervical spondylosis with radiculopathy M47.22 [place] [address] [address] 17 Mar, 2018 Hypothyroidism, unspecified E03.9 ; Cerv icalgia M54.2 and Chronic migraine G43.709 [place] [address] [address] 15 Mar, 2018 Cervical spondylosis with radiculopathy M47.22 [place] [address] [address] 08 Mar, 2018 Chronic migraine G43.709 ; Cervicalgia M 54.2 and Family history of stroke Z82.3 [place] [address] [address] 14 Jan, 2018 Cervical spondylosis with radiculopathy M47.22 [place] [address] [address] 05 Jan, 2018 Reactive airway disease that is not asth ma R09.89 [facility] [address] [facility] [id number] [address] [place] [address] Dec, Allergic dermatitis due to o ther chemical product L23.5 [place] [address] [address] Dec, Cervical spondylosis with radiculopathy M47.22 and Depression, unspecified depression type F32.9 [place] [address] [address] Oct, [place] [address] [address] Oct, [place] [address] [address] Oct, [place] [address] [address] September, Chronic pain syndrome G89.4 [place] [address] [address] September, Depression, unspecified depression type F32.9 and Cervicalgia M54.2 [place] [address] [address] September, Chronic pain syndrome G89.4 [place] [address] [address] Aug, Red stool R19.5 [place] [address] [address] Aug, Depression, unspecified depression type F32.9 ; Chronic pain syndrome G89.4 ; Chronic tension-type headache, intractable G44.221 ; Red stool R19.5 ; Hypothyroidism, unspecified E03.9 and Mixed hyperlipidemia E78.2 [place] [address] [address] Jul, Major depressive disorder, recurrent epi sode, moderate F33.1 [place] [address] [address] Jul, [place] [address] [address] Jul, Hypothyroidism, unspecified E03.9 [place] [address] [address] Jul, Hypothyroidism, unspecified E03.9 [place] [address] [address] Jul, Mixed hyperlipidemia E78.2 [place] [address] [address] Jul, Mixed hyperlipidemia E78.2 [facility] [address] [facility] [id number] [address] [place] [address] Jul, Bronchitis J40 ; Cough R05 a nd Wheezing R06.2 [place] [address] [address] Jul, Major depressive disorder, recurrent epi sode, moderate F33.1 and Generalized anxiety disorder F41.1 [place] [address] [address] Jul, [place] [address] [address] Jul, Major depressive disorder, recurrent epi sode, moderate F33.1 and Generalized anxiety disorder F41.1 [place] [address] [address] Jul, Generalized anxiety disorder F41.1 and M lopezor depressive disorder, recurrent episode, moderate F33.1 [place] [address] [address] Jul, Mixed hyperlipidemia E78.2 [place] [address] [address] Jun, Depression, unspecified depression type F32.9 ; Cervicalgia M54.2 ; Trigger point M79.1 ; Hypothyroidism, unspecified E03.9 ; Screening, lipid Z13.220 and Mixed hyperlipidemia E78.2 [place] [address] [address] Jun, [facility] [address] [address] May, [place] [address] [address] Apr, Acute bronchitis due to other specified organisms J20.8 and Tobacco abuse counseling Z71.6 [place] [address] [address] Mar, Depression, unspecified depression type F32.9 [place] [address] [address] Jan, Chronic pain syndrome G89.4 [place] [address] [address] Nov, Anxiety F41.9 ; Depression, unspecified depression type F32.9 and Chronic pain syndrome G89.4 [place] [address] [address] Oct, Anxiety F41.9 and Hypothyroidism, unspec ified E03.9 [facility] [address] [facility] [id number] [address] [place] [address] Oct, Left foot pain M79.672 and C ontusion of left foot, 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 S90.32XA [place] [address] [address] Oct, [place] [address] [address] September, Cervicalgia M54.2 [place] [address] [address] September, [place] [address] [address] Aug, Cervicalgia M54.2 [place] [address] [address] Aug, Cervicalgia M54.2 and Left arm numbness R20.0 [place] [address] [address] Aug, [facility] [address] [address] Aug, [facility] [address] [address] Jul, [facility] [address] [address] Jul, [facility] [address] [address] Jul, [facility] [address] [address] Jul, Acute midline low back pain without scia zak M54.5 [facility] [address] [address] Jun, Acute midline low back pain without scia zak M54.5 [facility] [address] [address] Jun, Chronic pain syndrome G89.4 and Muscle s pasm M62.838 [facility] [address] [address] Jun, [facility] [address] [address] Jun, Acute midline low back pain without scia zak M54.5 [facility] [address] [address] Jun, [facility] [address] [address] May, [facility] [address] [address] May, Hypothyroidism, unspecified E03.9 ; [employer] radha pain syndrome G89.4 ; Hyperglycemia R73.9 ; Encounter for immunization Z23 and Mixed hyperlipidemia E78.2 [facility] [address] [address] Apr, Fatigue 780.79 [facility] [address] [address] Apr, Chronic pain syndrome G89.4 [facility] [address] [address] Mar, [facility] [address] [address] Mar, Chronic pain syndrome G89.4 [facility] [address] [address] Jan, [facility] [address] [address] Dec, [facility] [address] [address] Dec, Chronic pain syndrome G89.4 [facility] [address] [address] Dec, Trigger point M79.2 [facility] [address] [address] Nov, Chronic pain syndrome G89.4 [facility] [address] [address] Oct, Chronic pain syndrome G89.4 [facility] [address] [address] Oct, Irritant contact dermatitis due to deter gent L24.0 [facility] [address] [address] September, Hypothyroidism, unspecified E03.9 and De pression, unspecified depression type F32.9 [facility] [address] [address] September, Chronic pain syndrome G89.4 [facility] [address] [address] Aug, [facility] [address] [address] Aug, Trigger point M79.2 [facility] [id number] [place] [address] Jul, Chronic pain syndrome G89.4 and 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 [facility] [id number] [place] [address] Jul, Chronic pain syndrome G89.4 and 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 [facility] [id number] [place] [address] Jul, [facility] [address] [address] Jul, [facility] [id number] [place] [address] Jun, [facility] [address] [address] May, [facility] [id number] [place] [address] May, [facility] [address] [address] May, [facility] [address] [address] May, Pneumonia, organism unspecified, unspeci fied laterality, unspecified part of lung J18.9 [facility] [id number] [place] [address] May, Pneumonia, organism unspecified, unspeci fied laterality, unspecified part of lung J18.9 [facility] [id number] [place] [address] Apr, [facility] [address] [address] Apr, [facility] [address] [address] Apr, [facility] [id number] [place] [address] Apr, [facility] [address] [address] Apr, [facility] [id number] [place] [address] Apr, Epigastric pain R10.13 [facility] [address] [address] Mar, Tinea pedis B35.3 and Contact dermatitis and eczema due to detergents L24.0 [facility] [address] [address] Mar, [facility] [address] [address] Jan, [facility] [address] [address] Jan, [facility] [address] [address] Jan, [facility] [address] [address] Dec, [facility] [address] [address] Nov, [facility] [address] [address] Nov, Fatigue 780.79 [facility] [address] [address] Nov, [facility] [address] [address] Nov, Unspecified myalgia and myositis 729.1 [facility] [id number] [place] [address] Nov, Hypercalcemia 275.42 [facility] [address] [address] Nov, Fatigue 780.79 ; Bradycardia 427.89 ; Ch ronic pain 338.29 and Family history of diabetes mellitus V18.0 [facility] [id number] [place] [address] Nov, Fatigue 780.79 ; Chronic pain 338.29 ; F amily history of diabetes mellitus V18.0 ; Bradycardia 427.89 ; Hypothyroid 244.9 and Anxiety 300.00 [facility] [id number] [place] [address] Oct, [facility] [id number] [place] [address] September, [facility] [id number] [place] [address] Aug, [facility] [id number] [place] [address] Aug, [facility] [id number] [place] [address] Aug, [facility] [id number] [place] [address] Jul, [facility] [id number] [place] [address] Jul, [facility] [id number] [place] [address] Jul, [facility] [id number] [place] [address] Jul, [facility] [id number] [place] [address] Jun, [facility] [id number] [place] [address] Jun, [facility] [id number] [place] [address] Jun, [facility] [id number] [place] [address] Jun, [facility] [id number] [place] [address] Jun, [facility] [address] [facility] [id number] [place] [address] Jun, [facility] [address] [id number] [place] [address] May, [facility] [address] [id number] [place] [address] May, [facility] [address] [id number] [place] [address] May, [facility] [address] [id number] [place] [address] May, [facility] [address] [id number] [place] [address] May, [facility] [address] [id number] [place] [address] May, [facility] [address] [id number] [place] [address] May, [facility] [address] [id number] [place] [address] May, [facility] [address] [id number] [place] [address] May, [facility] [address] [id number] [place] [address] May, [facility] [address] [id number] [place] [address] Apr, [facility] [address] [id number] [place] [address] Apr, [facility] [address] [id number] [place] [address] Apr, [facility] [address] [id number] [place] [address] Apr, [facility] [address] [id number] [place] [address] Apr, [facility] [address] [id number] [place] [address] 19 Apr, 2014 [facility] [address] [id number] [place] [address] 18 Apr, 2014 [facility] [address] [id number] [place] [address] 18 Apr, 2014 [facility] [address] [id number] [place] [address] 17 Apr, 2014 [facility] [address] [id number] [place] [address] 17 Apr, 2014 [facility] [address] [id number] [place] [address] Apr, [facility] [address] [id number] [place] [address] 13 Apr, 2014 [facility] [address] [id number] [place] [address] 11 Apr, 2014 [facility] [address] [id number] [place] [address] 10 Apr, 2014 [facility] [address] [id number] [place] [address] 10 Apr, 2014 [facility] [address] [id number] [place] [address] 16 Mar, 2014 [facility] [address] [id number] [place] [address] 16 Mar, 2014 [facility] [address] [id number] [place] [address] 16 Mar, 2014 [facility] [address] [id number] [place] [address] 16 Mar, 2014 [facility] [address] [id number] [place] [address] 19 Jan, 2014 [facility] [address] [id number] [place] [address] 19 Jan, 2014 [facility] [address] [id number] [place] [address] Jan, [facility] [address] [facility] [id number] [place] [address] Jan, [facility] [address] [facility] [id number] [place] [address] Jan, [facility] [address] [facility] [id number] [place] [address] Jan, [facility] [address] [id number] [place] [address] Dec, [facility] [address] [facility] [id number] [place] [address] Dec, [facility] [address] [id number] [place] [address] Dec, [facility] [address] [id number] [place] [address] Dec, [facility] [address] [id number] [place] [address] Nov, [facility] [address] [id number] [place] [address] Nov, [facility] [address] [id number] [place] [address] Nov, [facility] [address] [id number] [place] [address] Nov, [facility] [address] [id number] [place] [address] Oct, [facility] [address] [id number] [place] [address] Oct, [facility] [address] [id number] [place] [address] Oct, [facility] [address] [id number] [place] [address] Oct, [facility] [address] [id number] [place] [address] Oct, [facility] [address] [id number] [place] [address] Oct, [facility] [address] [facility] [id number] [facility] [place] [address] Oct, [facility] [address] [id number] [facility] [place] [address] Oct, [facility] [address] [id number] [facility] [place] [address] Oct, [facility] [address] [id number] [facility] [place] [address] Oct, [facility] [address] [facility] [id number] [facility] [place] [address] September, [facility] [address] [id number] [place] [address] September, [facility] [address] [id number] [place] [address] September, [facility] [address] [id number] [place] [address] September, [facility] [address] [id number] [place] [address] September, [facility] [address] [id number] [place] [address] September, [facility] [address] [id number] [place] [address] September, [facility] [address] [id number] [place] [address] September, [facility] [address] [id number] [place] [address] September, [facility] [address] [id number] [place] [address] Aug, [facility] [address] [id number] [place] [address] Aug, [facility] [address] [id number] [place] [address] Aug, [facility] [address] [id number] [facility] [place] [address] 30 Aug, 2013 [facility] [address] [facility] [id number] [place] [address] Aug, [facility] [address] [facility] [id number] [place] [address] Aug, [facility] [address] [id number] [place] [address] Aug, [facility] [address] [facility] [id number] [place] [address] Aug, [facility] [address] [facility] [id number] [place] [address] 28 Jul, 2013 [facility] [address] [id number] [place] [address] Jul, [facility] [address] [id number] [place] [address] Jul, [facility] [address] [id number] [place] [address] 24 Jul, 2013 [facility] [address] [id number] [place] [address] 24 Jul, 2013 [facility] [address] [id number] [place] [address] Jul, [facility] [address] [id number] [place] [address] Jul, [facility] [address] [id number] [place] [address] 18 Jul, 2013 [facility] [address] [facility] [id number] [place] [address] 18 Jul, 2013 [facility] [address] [id number] [place] [address] 17 Jul, 2013 [facility] [address] [id number] [place] [address] 17 Jul, 2013 [facility] [address] [id number] [place] [address] 13 Jul, 2013 [facility] [address] [id number] [place] [address] Jul, [facility] [address] [id number] [place] [address] Jul, [facility] [address] [id number] [place] [address] Jul, [facility] [address] [id number] [place] [address] Jul, [facility] [address] [id number] [place] [address] Jul, [facility] [address] [id number] [place] [address] Jul, [facility] [address] [id number] [place] [address] Jul, [facility] [address] [id number] [place] [address] Jun, [facility] [address] [id number] [place] [address] Jun, [facility] [address] [id number] [place] [address] May, [facility] [address] [id number] [place] [address] May, [facility] [address] [id number] [place] [address] Apr, [facility] [address] [id number] [place] [address] Apr, [facility] [address] [id number] [place] [address] Apr, [facility] [address] [id number] [place] [address] Apr, [facility] [address] [id number] [place] [address] Apr, [facility] [address] [id number] [place] [address] Apr, [facility] [address] [facility] [id number] [facility] [place] [address] Mar, [facility] [address] [facility] [id number] [place] [address] Mar, [facility] [address] [id number] [place] [address] Mar, [facility] [address] [id number] [place] [address] Mar, [facility] [address] [id number] [place] [address] Jan, [facility] [address] [id number] [place] [address] Jan, [facility] [address] [id number] [place] [address] Jan, [facility] [address] [id number] [place] [address] Dec, [facility] [address] [id number] [place] [address] Dec, [facility] [address] [id number] [place] [address] Dec, [facility] [address] [id number] [place] [address] Dec, [facility] [address] [id number] [place] [address] Nov, [facility] [address] [id number] [place] [address] Nov, [facility] [address] [id number] [place] [address] Nov, [facility] [address] [id number] [place] [address] Oct, [facility] [address] [id number] [place] [address] Oct, [facility] [address] [id number] [place] [address] 14 Oct, 2012 [facility] [address] [id number] [place] [address] Oct, [facility] [address] [id number] [place] [address] Oct, [facility] [address] [id number] [place] [address] Oct, [facility] [address] [id number] [place] [address] September, [facility] [address] [id number] [place] [address] Jul, [facility] [address] [id number] [place] [address] Jul, [facility] [address] [id number] [place] [address] Jul, [facility] [address] [id number] [place] [address] Jul, [facility] [address] [id number] [place] [address] Jul, [facility] [address] [id number] [place] [address] Jul, [facility] [address] [id number] [place] [address] Jun, [facility] [address] [id number] [place] [address] Apr, [facility] [address] [id number] [place] [address] Apr, [facility] [address] [id number] [place] [address] 24 Jan, 2012 [facility] [address] [id number] [place] [address] Dec, [facility] [address] [id number] [place] [address] Nov, [facility] [address] [id number] [place] [address] Oct, [facility] [address] [id number] [facility] [place] [address] September, [facility] [address] [id number] [place] [address] September, [facility] [address] [id number] [place] [address] Jul, [facility] [address] [facility] [id number] [place] [address] Jul, [facility] [address] [id number] [place] [address] Jul, [facility] [address] [id number] [place] [address] Jul, [facility] [address] [id number] [place] [address] Jul, [facility] [address] [id number] [place] [address] 17 Jul, 2011 [facility] [address] [id number] [place] [address] 13 Jul, 2011 [facility] [address] [id number] [place] [address] Jul, [facility] [address] [id number] [place] [address] 08 Jul, 2011 [facility] [address] [id number] [place] [address] 07 Jul, 2011 [facility] [address] [id number] [place] [address] Jun, [facility] [address] [id number] [place] [address] May, [facility] [address] [id number] [place] [address] May, [facility] [address] [id number] [place] [address] May, [facility] [address] [id number] [place] [address] Apr, [facility] [address] [id number] [place] [address] Apr, [facility] [address] [id number] [place] [address] Mar, [facility] [id number] [place] [address] Mar, [facility] [id number] [place] [address] Mar, [facility] [id number] [place] [address] Mar, [facility] [id number] [place] [address] Mar, [facility] [id number] [place] [address] September, [facility] [id number] [place] [address] Mar, [facility] [id number] [place] [address] Dec, [facility] [id number] [place] [address] May, [facility] [id number] [place] [address] May, IMMUNIZATIONS No Known Immunizations SOCIAL HISTORY [...]
--- OUTSIDE RECORDS SUMMARY | 2019-10-01 11:02 | XMS REPORT ---
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 Name Role Phone CEDRICK BARCENAS Unavailable PROBLEMS Type Condition ICD9-CM Code ALX59-IG Code Onset Dates Condition S tatus SNOMED Code Problem USP 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.891 Active 948593392 Problem Chronic pain syndrome G89.4 Active 996793045 Problem Hypothyroidism, unspecified E03.9 Ac tive 29427681 Problem Depression, unspecified depression type F32.9 Active 70481173 Problem Major depressive disorder, recurrent episode, moderate F33.1 Active 304529336 Problem Generalized anxiety disorder F41.1 A ctive 10976605 Problem Chronic tension-type headache, intractable G44.221 Active 674145357 Problem Major depressive disorder, recurrent, unspecified F33.9 Active 25013041 Problem Anxiety F41.9 Active 85231362 Problem Primary insomnia F51.01 Active 397 2004 Problem Mixed hyperlipidemia E78.2 Active 231564851 Problem Cervical spondylosis with radiculopathy M47.22 Active 658124239 Problem Chronic migraine G43.709 Active 377 44699 Problem Other chronic pain G89.29 Active 8 1486816 Problem Grief F43.21 Active 800807934 ALLERGIES No Information ENCOUNTERS Encounter Location Date Diagnosis [facility] [id number] [place] [address] Aug, [facility] [address] [address] Jul, [facility] [id number] [place] [address] 03 Jul, 2019 Cervical spondylosis with radiculopathy M47.22 [facility] [id number] [place] [address] Jul, Pain in left knee M25.562 ; Other chroni c pain G89.29 and Financial difficulties Z59.8 [place] [address] [address] 20 Jul, 2019 [place] [address] [address] 13 Jul, 2019 Generalized anxiety disorder F41.1 and Sylvia kearney depressive disorder, recurrent episode, moderate F33.1 [place] [address] [address] 06 Jul, 2019 [place] [address] [address] 04 Jul, 2019 Cervical spondylosis with radiculopathy M47.22 [place] [address] [address] Jun, [facility] [address] [facility] [id number] [address] [place] [address] Jun, Allergic urticaria L50.0 [place] [address] [address] 15 Jun, 2019 Cervical spondylosis with radiculopathy M47.22 [place] [address] [address] 14 Jun, 2019 Hypothyroidism, unspecified E03.9 [place] [address] [address] Jun, [place] [address] [address] 13 Jun, 2019 Major depressive disorder, recurrent, un specified F33.9 ; Primary insomnia F51.01 and Strain of lumbar region, 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 S39.012A [place] [address] [address] 06 Jun, 2019 Cervical spondylosis with radiculopathy M47.22 [place] [address] [address] Jun, Back strain, subsequent encounter S39.01 2D [place] [address] [address] Jun, [place] [address] [address] May, Cervical spondylosis with radiculopathy M47.22 [place] [address] [address] Apr, [place] [address] [address] Apr, Cervical spondylosis with radiculopathy M47.22 [place] [address] [address] Mar, Cervical spondylosis with radiculopathy M47.22 [place] [address] [address] Jan, Generalized anxiety disorder F41.1 and M ajor depressive disorder, recurrent, unspecified F33.9 [place] [address] [address] Jan, Cervical spondylosis with radiculopathy M47.22 [place] [address] [address] Jan, [place] [address] [address] Jan, Major depressive disorder, recurrent epi sode, moderate F33.1 and Generalized anxiety disorder F41.1 [place] [address] [address] Dec, [place] [address] [address] Dec, Cervical spondylosis with radiculopathy M47.22 [place] [address] [address] Nov, Cervical spondylosis with radiculopathy M47.22 [place] [id number] [place] [address] Nov, Hypothyroidism, unspecified E03.9 [place] [address] [address] Nov, Cervical spondylosis with radiculopathy M47.22 [place] [address] [address] Oct, Cervical spondylosis with radiculopathy M47.22 [place] [address] [address] Oct, Grief F43.21 [address] [place] [address] Oct, [place] [address] [address] Oct, Major depressive disorder, recurrent epi sode, moderate F33.1 and Chronic tension-type headache, intractable G44.221 [place] [address] [address] Oct, [address] [address] Oct, Breast cancer screening by mammogram Z12 .31 [place] [address] [address] September, Cervical spondylosis with radiculopathy M47.22 [place] [address] [address] September, Cervical spondylosis with radiculopathy M47.22 [place] [address] [address] Aug, Chronic pain syndrome G89.4 ; Cervicalgi a M54.2 ; Chronic nonintractable headache, unspecified headache type R51 and Alopecia L65.9 [place] [address] [address] Jul, Cervical spondylosis with radiculopathy M47.22 [place] [address] [address] Jul, [place] [address] [address] Jul, Cervical spondylosis with radiculopathy M47.22 [place] [address] [address] Jul, [place] [address] [address] Jul, Cervical spondylosis with radiculopathy M47.22 [place] [address] [address] Jul, Cervical spondylosis with radiculopathy M47.22 [place] [address] [address] Jul, [place] [address] [address] Jun, Major depressive disorder, recurrent epi sode, moderate F33.1 ; Low back pain M54.5 and Other chronic pain G89.29 [place] [address] [address] Jun, [place] [address] [address] Jun, Bronchitis J40 ; Mixed hyperlipidemia E7 8.2 ; Cervical spondylosis with radiculopathy M47.22 ; USP 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.891 ; Major depressive disorder, recurrent episode, moderate F33.1 ; Hypothyroidism, unspecified E03.9 ; Low back pain M54.5 ; Other chronic pain G89.29 and Chronic tension-type headache, intractable G44.221 [place] [address] [address] Jun, Cervical spondylosis with radiculopathy M47.22 [place] [address] [id number] May, [place] [address] [address] May, Cervical spondylosis with radiculopathy M47.22 [facility] [address] [facility] [id number] [address] [place] [address] 07 May, 2018 Acute nasopharyngitis J00 an d Wheezing R06.2 [place] [address] [address] 04 May, 2018 [place] [address] [address] Apr, Cervical spondylosis with radiculopathy M47.22 [place] [address] [address] 19 Mar, 2018 Mixed hyperlipidemia E78.2 and Family hi story of stroke Z82.3 [place] [address] [address] 18 Mar, 2018 Cervical spondylosis with radiculopathy M47.22 [place] [address] [address] 17 Mar, 2018 Hypothyroidism, unspecified E03.9 ; Cerv icalgia M54.2 and Chronic migraine G43.709 [place] [address] [address] 15 Mar, 2018 Cervical spondylosis with radiculopathy M47.22 [place] [address] [address] 08 Mar, 2018 Chronic migraine G43.709 ; Cervicalgia M 54.2 and Family history of stroke Z82.3 [place] [address] [address] 14 Jan, 2018 Cervical spondylosis with radiculopathy M47.22 [place] [address] [address] 05 Jan, 2018 Reactive airway disease that is not asth ma R09.89 [facility] [address] [facility] [id number] [address] [place] [address] Dec, Allergic dermatitis due to o ther chemical product L23.5 [place] [address] [address] Dec, Cervical spondylosis with radiculopathy M47.22 and Depression, unspecified depression type F32.9 [place] [address] [address] Oct, [place] [address] [address] Oct, [place] [address] [address] Oct, [place] [address] [address] September, Chronic pain syndrome G89.4 [place] [address] [address] September, Depression, unspecified depression type F32.9 and Cervicalgia M54.2 [place] [address] [address] September, Chronic pain syndrome G89.4 [place] [address] [address] Aug, Red stool R19.5 [place] [address] [address] Aug, Depression, unspecified depression type F32.9 ; Chronic pain syndrome G89.4 ; Chronic tension-type headache, intractable G44.221 ; Red stool R19.5 ; Hypothyroidism, unspecified E03.9 and Mixed hyperlipidemia E78.2 [place] [address] [address] Jul, Major depressive disorder, recurrent epi sode, moderate F33.1 [place] [address] [address] Jul, [place] [address] [address] Jul, Hypothyroidism, unspecified E03.9 [place] [address] [address] Jul, Hypothyroidism, unspecified E03.9 [place] [address] [address] Jul, Mixed hyperlipidemia E78.2 [place] [address] [address] Jul, Mixed hyperlipidemia E78.2 [facility] [address] [facility] [id number] [address] [place] [address] 08 Jul, 2017 Bronchitis J40 ; Cough R05 a nd Wheezing R06.2 [place] [address] [address] Jul, Major depressive disorder, recurrent epi sode, moderate F33.1 and Generalized anxiety disorder F41.1 [place] [address] [address] Jul, [place] [address] [address] Jul, Major depressive disorder, recurrent epi sode, moderate F33.1 and Generalized anxiety disorder F41.1 [place] [address] [address] Jul, Generalized anxiety disorder F41.1 and M christel depressive disorder, recurrent episode, moderate F33.1 [place] [address] [address] Jul, Mixed hyperlipidemia E78.2 [place] [address] [address] Jun, Depression, unspecified depression type F32.9 ; Cervicalgia M54.2 ; Trigger point M79.1 ; Hypothyroidism, unspecified E03.9 ; Screening, lipid Z13.220 and Mixed hyperlipidemia E78.2 [place] [address] [address] Jun, [place] [address] [address] May, [place] [address] [address] Apr, Acute bronchitis due to other specified organisms J20.8 and Tobacco abuse counseling Z71.6 [place] [address] [address] Mar, Depression, unspecified depression type F32.9 [place] [address] [address] Jan, Chronic pain syndrome G89.4 [place] [address] [address] Nov, Anxiety F41.9 ; Depression, unspecified depression type F32.9 and Chronic pain syndrome G89.4 [place] [address] [address] Oct, Anxiety F41.9 and Hypothyroidism, unspec ified E03.9 [facility] [address] [facility] [id number] [address] [place] [address] Oct, Left foot pain M79.672 and C ontusion of left foot, 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 S90.32XA [place] [address] [address] Oct, [place] [address] [address] September, Cervicalgia M54.2 [place] [address] [address] September, [place] [address] [address] Aug, Cervicalgia M54.2 [place] [address] [address] Aug, Cervicalgia M54.2 and Left arm numbness R20.0 [facility] [address] [address] Aug, [facility] [address] [address] Aug, [facility] [address] [address] Jul, [facility] [address] [address] Jul, [facility] [address] [address] Jul, [facility] [address] [address] Jul, Acute midline low back pain without scia zak M54.5 [facility] [address] [address] Jun, Acute midline low back pain without scia zak M54.5 [facility] [address] [address] Jun, Chronic pain syndrome G89.4 and Muscle s pasm M62.838 [facility] [address] [address] Jun, [facility] [address] [address] Jun, Acute midline low back pain without scia zak M54.5 [facility] [address] [address] Jun, [facility] [address] [address] May, [facility] [address] [address] May, Hypothyroidism, unspecified E03.9 ; Plans Examiner radha pain syndrome G89.4 ; Hyperglycemia R73.9 ; Encounter for immunization Z23 and Mixed hyperlipidemia E78.2 [facility] [address] [address] 30 Apr, 2016 Fatigue 780.79 [facility] [address] [address] 10 Apr, 2016 Chronic pain syndrome G89.4 [facility] [address] [address] Mar, [facility] [address] [address] Mar, Chronic pain syndrome G89.4 [facility] [address] [address] Jan, [facility] [address] [address] Dec, [place] [address] [address] Dec, Chronic pain syndrome G89.4 [place] [address] [address] Dec, Trigger point M79.2 [place] [address] [address] Nov, Chronic pain syndrome G89.4 [place] [address] [address] Oct, Chronic pain syndrome G89.4 [place] [address] [address] Oct, Irritant contact dermatitis due to deter gent L24.0 [place] [address] [address] September, Hypothyroidism, unspecified E03.9 and De pression, unspecified depression type F32.9 [facility] [address] [address] September, Chronic pain syndrome G89.4 [facility] [address] [address] Aug, [facility] [id number] [place] [address] Aug, Trigger point M79.2 [facility] [id number] [place] [address] Jul, Chronic pain syndrome G89.[address] m 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.891 [facility] [id number] [place] [address] Jul, Chronic pain syndrome G89.[address] m 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.891 [facility] [address] [address] Jul, [facility] [id number] [place] [address] Jul, [facility] [address] [address] Jun, [facility] [id number] [place] [address] May, [facility] [address] [address] May, [facility] [address] [address] May, [facility] [address] [address] May, Pneumonia, organism unspecified, unspeci fied laterality, unspecified part of lung J18.9 [facility] [id number] [place] [address] May, Pneumonia, organism unspecified, unspeci fied laterality, unspecified part of lung J18.9 [facility] [id number] [place] [address] Apr, [facility] [address] [address] Apr, [facility] [id number] [place] [address] Apr, [facility] [address] [address] Apr, [facility] [id number] [place] [address] Apr, [facility] [address] [address] Apr, Epigastric pain R10.13 [facility] [id number] [place] [address] Mar, Tinea pedis B35.3 and Contact dermatitis and eczema due to detergents L24.0 [facility] [id number] [place] [address] Mar, [facility] [address] [address] Jan, [facility] [address] [address] Jan, [facility] [address] [address] Jan, [facility] [address] [address] Dec, [facility] [address] [address] Nov, [facility] [address] [address] Nov, Fatigue 780.79 [facility] [id number] [place] [address] Nov, [facility] [address] [address] Nov, Unspecified myalgia and myositis 729.1 [facility] [id number] [place] [address] Nov, Hypercalcemia 275.42 [facility] [id number] [place] [address] Nov, Fatigue 780.79 ; Bradycardia 427.89 ; Ch ronic pain 338.29 and Family history of diabetes mellitus V18.0 [facility] [id number] [place] [address] Nov, Fatigue 780.79 ; Chronic pain 338.29 ; F amily history of diabetes mellitus V18.0 ; Bradycardia 427.89 ; Hypothyroid 244.9 and Anxiety 300.00 [facility] [id number] [place] [address] Oct, [facility] [address] [address] September, [facility] [id number] [place] [address] Aug, [facility] [id number] [place] [address] Aug, [facility] [id number] [place] [address] Aug, [facility] [id number] [place] [address] Jul, [facility] [id number] [place] [address] Jul, [facility] [id number] [place] [address] Jul, [facility] [id number] [place] [address] Jul, [facility] [id number] [place] [address] Jun, [facility] [id number] [place] [address] Jun, [facility] [id number] [place] [address] Jun, [facility] [id number] [place] [address] Jun, [facility] [address] [facility] [id number] [place] [address] Jun, [facility] [address] [id number] [place] [address] Jun, [facility] [address] [id number] [place] [address] May, [facility] [address] [id number] [place] [address] May, [facility] [address] [id number] [place] [address] May, [facility] [address] [id number] [place] [address] May, [facility] [address] [id number] [place] [address] May, [facility] [address] [id number] [place] [address] May, [facility] [address] [id number] [place] [address] May, [facility] [address] [id number] [place] [address] May, [facility] [address] [id number] [place] [address] May, [facility] [address] [id number] [place] [address] May, [facility] [address] [id number] [place] [address] Apr, [facility] [address] [id number] [place] [address] Apr, [facility] [address] [id number] [place] [address] Apr, [facility] [address] [id number] [place] [address] Apr, [facility] [address] [id number] [place] [address] 19 Apr, 2014 [facility] [address] [id number] [place] [address] 19 Apr, 2014 [facility] [address] [id number] [place] [address] 18 Apr, 2014 [facility] [address] [id number] [place] [address] 18 Apr, 2014 [facility] [address] [id number] [place] [address] 17 Apr, 2014 [facility] [address] [id number] [place] [address] 17 Apr, 2014 [facility] [address] [id number] [place] [address] Apr, [facility] [address] [id number] [place] [address] 13 Apr, 2014 [facility] [address] [id number] [place] [address] 11 Apr, 2014 [facility] [id number] [place] [address] 10 Apr, 2014 [facility] [id number] [place] [address] 10 Apr, 2014 [facility] [id number] [place] [address] 16 Mar, 2014 [facility] [id number] [place] [address] 16 Mar, 2014 [facility] [id number] [place] [address] 16 Mar, 2014 [facility] [id number] [place] [address] 16 Mar, 2014 [facility] [id number] [place] [address] 19 Jan, 2014 [facility] [id number] [place] [address] Jan, [facility] [address] [facility] [id number] [place] [address] Jan, [facility] [address] [facility] [id number] [place] [address] Jan, [facility] [id number] [place] [address] Jan, [facility] [id number] [place] [address] Jan, [facility] [address] [facility] [id number] [place] [address] Dec, [facility] [id number] [place] [address] Dec, [facility] [id number] [place] [address] Dec, [facility] [id number] [place] [address] Dec, [facility] [id number] [place] [address] Nov, [facility] [id number] [place] [address] Nov, [facility] [id number] [place] [address] Nov, [facility] [id number] [place] [address] Nov, [facility] [id number] [place] [address] Oct, [facility] [id number] [place] [address] Oct, [facility] [id number] [place] [address] Oct, [facility] [id number] [place] [address] Oct, [facility] [id number] [place] [address] Oct, [facility] [address] [facility] [id number] [place] [address] Oct, [facility] [address] [facility] [id number] [place] [address] Oct, [facility] [id number] [place] [address] Oct, [facility] [id number] [place] [address] Oct, [facility] [facility] [address] [facility] [id number] [place] [address] Oct, [facility] [address] [id number] [place] [address] September, [facility] [address] [id number] [place] [address] September, [facility] [address] [id number] [place] [address] September, [facility] [address] [id number] [place] [address] September, [facility] [address] [facility] [id number] [place] [address] September, [facility] [address] [id number] [place] [address] September, [facility] [address] [id number] [place] [address] September, [facility] [address] [id number] [place] [address] September, [facility] [address] [id number] [place] [address] September, [facility] [address] [id number] [place] [address] Aug, [facility] [address] [id number] [place] [address] Aug, [facility] [address] [id number] [place] [address] 30 Aug, 2013 [facility] [address] [facility] [id number] [place] [address] 30 Aug, 2013 [facility] [address] [facility] [id number] [place] [address] Aug, [facility] [address] [id number] [place] [address] Aug, [facility] [address] [facility] [id number] [place] [address] Aug, [facility] [address] [facility] [id number] [place] [address] Aug, [facility] [address] [id number] [place] [address] Jul, [facility] [address] [id number] [place] [address] Jul, [facility] [address] [id number] [place] [address] Jul, [facility] [address] [id number] [place] [address] Jul, [facility] [address] [id number] [place] [address] 24 Jul, 2013 [facility] [address] [id number] [place] [address] Jul, [facility] [address] [id number] [place] [address] Jul, [facility] [address] [facility] [id number] [place] [address] 18 Jul, 2013 [facility] [address] [id number] [place] [address] 18 Jul, 2013 [facility] [address] [id number] [place] [address] Jul, [facility] [address] [id number] [place] [address] Jul, [facility] [address] [id number] [place] [address] Jul, [facility] [address] [id number] [place] [address] Jul, [facility] [address] [id number] [place] [address] Jul, [facility] [address] [id number] [place] [address] Jul, [facility] [address] [id number] [place] [address] Jul, [facility] [address] [id number] [place] [address] Jul, [facility] [address] [id number] [place] [address] Jul, [facility] [address] [id number] [place] [address] Jul, [facility] [address] [id number] [place] [address] Jun, [facility] [address] [id number] [place] [address] Jun, [facility] [address] [id number] [place] [address] May, [facility] [address] [id number] [place] [address] May, [facility] [address] [id number] [place] [address] Apr, [facility] [address] [id number] [place] [address] Apr, [facility] [address] [id number] [place] [address] Apr, [facility] [address] [id number] [place] [address] Apr, [facility] [address] [id number] [place] [address] Apr, [facility] [address] [facility] [id number] [place] [address] Apr, [facility] [address] [facility] [id number] [place] [address] Mar, [facility] [address] [id number] [place] [address] Mar, [facility] [address] [id number] [place] [address] Mar, [facility] [address] [id number] [place] [address] Mar, [facility] [address] [id number] [place] [address] Jan, [facility] [address] [id number] [place] [address] Jan, [facility] [address] [id number] [place] [address] Jan, [facility] [address] [id number] [place] [address] Dec, [facility] [address] [id number] [place] [address] Dec, [facility] [address] [id number] [place] [address] Dec, [facility] [address] [id number] [place] [address] Dec, [facility] [address] [id number] [place] [address] Nov, [facility] [address] [id number] [place] [address] Nov, [facility] [address] [id number] [place] [address] Nov, [facility] [address] [id number] [place] [address] Oct, [facility] [address] [id number] [place] [address] 24 Oct, 2012 [facility] [address] [id number] [place] [address] Oct, [facility] [address] [id number] [place] [address] Oct, [facility] [address] [id number] [place] [address] Oct, [facility] [address] [id number] [place] [address] Oct, [facility] [address] [id number] [place] [address] September, [facility] [address] [id number] [place] [address] Jul, [facility] [address] [id number] [place] [address] Jul, [facility] [address] [id number] [place] [address] Jul, [facility] [address] [id number] [place] [address] Jul, [facility] [address] [id number] [place] [address] Jul, [facility] [address] [id number] [place] [address] Jul, [facility] [address] [id number] [place] [address] Jun, [facility] [address] [id number] [place] [address] Apr, [facility] [address] [id number] [place] [address] Apr, [facility] [address] [id number] [place] [address] 24 Jan, 2012 [facility] [address] [id number] [place] [address] Dec, [facility] [address] [id number] [place] [address] Nov, [facility] [address] [id number] [place] [address] Oct, [facility] [address] [id number] [place] [address] September, [facility] [address] [id number] [place] [address] September, [facility] [address] [facility] [id number] [place] [address] Jul, [facility] [address] [id number] [place] [address] Jul, [facility] [address] [id number] [place] [address] Jul, [facility] [address] [id number] [place] [address] Jul, [facility] [address] [id number] [place] [address] Jul, [facility] [address] [id number] [place] [address] Jul, [facility] [address] [id number] [place] [address] Jul, [facility] [address] [id number] [place] [address] Jul, [facility] [address] [id number] [place] [address] 08 Jul, 2011 [facility] [address] [id number] [place] [address] 07 Jul, 2011 [facility] [address] [id number] [place] [address] Jun, [facility] [address] [id number] [place] [address] May, [facility] [id number] [place] [address] May, [facility] [id number] [place] [address] May, [facility] [id number] [place] [address] Apr, [facility] [id number] [place] [address] Apr, [facility] [address] [id number] [place] [address] Mar, [facility] [id number] [place] [address] Mar, [facility] [id number] [place] [address] Mar, [facility] [id number] [place] [address] Mar, [facility] [id number] [place] [address] Mar, [facility] [id number] [place] [address] September, [facility] [id number] [place] [address] Mar, [facility] [id number] [place] [address] Dec, [facility] [id number] [place] [address] May, [facility] [id number] [place] [address] May, IMMUNIZATIONS No Known Immunizations SOCIAL HISTORY Never Assessed REASON FOR VISIT PLAN OF CARE VITAL SIGNS MEDICATIONS Unknown Medications RESULTS No Results PROCEDURES Procedure Date Ordered Result Body Site ASSAY THYROID STIM HORMONE August 24, 2013 LIPID PANEL August 24, 2013 COMPREHEN METABOLIC PANEL August 24, 2013 VENIPUNCT, ROUTINE* August 24, 2013 INSTRUCTIONS MEDICATIONS ADMINISTERED No Known Medications [...]
--- OUTSIDE RECORDS SUMMARY | 2019-10-01 11:02 | XMS REPORT ---
Author Author Samra BARCENAS Organization [facility] Address [address] [place] [address] Care Team Providers Care Chemical Sales Representative Name Role Phone CEDRICK BARCENAS Unavailable PROBLEMS Type Condition ICD9-CM Code YLN64-UO Code Onset Dates Condition S tatus SNOMED Code Problem intermediate 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.891 Active 015689631 Problem Chronic pain syndrome G89.4 Active 539465215 Problem Hypothyroidism, unspecified E03.9 Ac tive 91021061 Problem Depression, unspecified depression type F32.9 Active 93836592 Problem Major depressive disorder, recurrent episode, moderate F33.1 Active 597883776 Problem Generalized anxiety disorder F41.1 A ctive 39954164 Problem Chronic tension-type headache, intractable G44.221 Active 797895987 Problem Major depressive disorder, recurrent, unspecified F33.9 Active 56007484 Problem Anxiety F41.9 Active 33541179 Problem Primary insomnia F51.01 Active 397 2004 Problem Mixed hyperlipidemia E78.2 Active 039523424 Problem Cervical spondylosis with radiculopathy M47.22 Active 762180043 Problem Chronic migraine G43.709 Active 377 73122 Problem Other chronic pain G89.29 Active 8 8931250 Problem Grief F43.21 Active [id number] ALLERGIES No Information ENCOUNTERS Encounter Location Date Diagnosis [facility] [id number] [place] [address] Aug, [facility] [address] [address] Jul, [facility] [id number] [place] [address] 03 Jul, 2019 Cervical spondylosis with radiculopathy M47.22 [facility] [id number] [place] [address] Jul, Pain in left knee M25.562 ; Other chroni c pain G89.29 and Financial difficulties Z59.8 [place] [address] [address] 20 Jul, 2019 [place] [address] [address] 13 Jul, 2019 Generalized anxiety disorder F41.1 and Sylvia kearney depressive disorder, recurrent episode, moderate F33.1 [place] [address] [address] 06 Jul, 2019 [place] [address] [address] 04 Jul, 2019 Cervical spondylosis with radiculopathy M47.22 [place] [address] [address] Jun, [facility] [address] [facility] [id number] [address] [place] [address] Jun, Allergic urticaria L50.0 [place] [address] [address] 15 Jun, 2019 Cervical spondylosis with radiculopathy M47.22 [place] [address] [address] 14 Jun, 2019 Hypothyroidism, unspecified E03.9 [place] [address] [address] Jun, [place] [address] [address] 13 Jun, 2019 Major depressive disorder, recurrent, un specified F33.9 ; Primary insomnia F51.01 and Strain of lumbar region, 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 S39.012A [place] [address] [address] 06 Jun, 2019 Cervical spondylosis with radiculopathy M47.22 [place] [address] [address] Jun, Back strain, subsequent encounter S39.01 [address] [place] [address] [address] Jun, [place] [address] [address] May, Cervical spondylosis with radiculopathy M47.22 [place] [address] [address] Apr, [place] [address] [address] Apr, Cervical spondylosis with radiculopathy M47.22 [place] [address] [address] Mar, Cervical spondylosis with radiculopathy M47.22 [place] [address] [address] Jan, Generalized anxiety disorder F41.1 and M ajor depressive disorder, recurrent, unspecified F33.9 [place] [address] [address] Jan, Cervical spondylosis with radiculopathy M47.22 [place] [address] [address] Jan, [place] [address] [address] Jan, Major depressive disorder, recurrent epi sode, moderate F33.1 and Generalized anxiety disorder F41.1 [place] [address] [address] Dec, [place] [address] [address] Dec, Cervical spondylosis with radiculopathy M47.22 [place] [address] [address] Nov, Cervical spondylosis with radiculopathy M47.22 [place] [id number] [place] [address] Nov, Hypothyroidism, unspecified E03.9 [place] [address] [address] Nov, Cervical spondylosis with radiculopathy M47.22 [place] [address] [address] Oct, Cervical spondylosis with radiculopathy M47.22 [place] [address] [address] Oct, Grief F43.21 [address] [place] [address] Oct, [place] [address] [address] Oct, Major depressive disorder, recurrent epi sode, moderate F33.1 and Chronic tension-type headache, intractable G44.221 [place] [address] [address] Oct, [address] [address] Oct, Breast cancer screening by mammogram Z12 .31 [place] [address] [address] September, Cervical spondylosis with radiculopathy M47.22 [place] [address] [address] September, Cervical spondylosis with radiculopathy M47.22 [place] [address] [address] Aug, Chronic pain syndrome G89.4 ; Cervicalgi a M54.2 ; Chronic nonintractable headache, unspecified headache type R51 and Alopecia L65.9 [place] [address] [address] Jul, Cervical spondylosis with radiculopathy M47.22 [place] [address] [address] Jul, [place] [address] [address] Jul, Cervical spondylosis with radiculopathy M47.22 [place] [address] [address] Jul, [place] [address] [address] Jul, Cervical spondylosis with radiculopathy M47.22 [place] [address] [address] Jul, Cervical spondylosis with radiculopathy M47.22 [place] [address] [address] Jul, [place] [address] [address] Jun, Major depressive disorder, recurrent epi sode, moderate F33.1 ; Low back pain M54.5 and Other chronic pain G89.29 [place] [address] [address] Jun, [place] [address] [address] Jun, Bronchitis J40 ; Mixed hyperlipidemia E7 8.2 ; Cervical spondylosis with radiculopathy M47.22 ; intermediate 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.891 ; Major depressive disorder, recurrent episode, moderate F33.1 ; Hypothyroidism, unspecified E03.9 ; Low back pain M54.5 ; Other chronic pain G89.29 and Chronic tension-type headache, intractable G44.221 [place] [address] [address] Jun, Cervical spondylosis with radiculopathy M47.22 [place] [address] [id number] May, [place] [address] [address] May, Cervical spondylosis with radiculopathy M47.22 [facility] [address] [facility] [id number] [address] [place] [address] 07 May, 2018 Acute nasopharyngitis J00 an d Wheezing R06.2 [place] [address] [address] 04 May, 2018 [place] [address] [address] Apr, Cervical spondylosis with radiculopathy M47.22 [place] [address] [address] 19 Mar, 2018 Mixed hyperlipidemia E78.2 and Family hi story of stroke Z82.3 [place] [address] [address] 18 Mar, 2018 Cervical spondylosis with radiculopathy M47.22 [place] [address] [address] 17 Mar, 2018 Hypothyroidism, unspecified E03.9 ; Cerv icalgia M54.2 and Chronic migraine G43.709 [place] [address] [address] 15 Mar, 2018 Cervical spondylosis with radiculopathy M47.22 [place] [address] [address] 08 Mar, 2018 Chronic migraine G43.709 ; Cervicalgia M 54.2 and Family history of stroke Z82.3 [place] [address] [address] 14 Jan, 2018 Cervical spondylosis with radiculopathy M47.22 [place] [address] [address] 05 Jan, 2018 Reactive airway disease that is not asth ma R09.89 [facility] [address] [facility] [id number] [address] [place] [address] Dec, Allergic dermatitis due to o ther chemical product L23.5 [place] [address] [address] Dec, Cervical spondylosis with radiculopathy M47.22 and Depression, unspecified depression type F32.9 [place] [address] [address] Oct, [place] [address] [address] Oct, [place] [address] [address] Oct, [place] [address] [address] September, Chronic pain syndrome G89.4 [place] [address] [address] September, Depression, unspecified depression type F32.9 and Cervicalgia M54.2 [place] [address] [address] September, Chronic pain syndrome G89.4 [place] [address] [address] Aug, Red stool R19.5 [place] [address] [address] Aug, Depression, unspecified depression type F32.9 ; Chronic pain syndrome G89.4 ; Chronic tension-type headache, intractable G44.221 ; Red stool R19.5 ; Hypothyroidism, unspecified E03.9 and Mixed hyperlipidemia E78.2 [place] [address] [address] Jul, Major depressive disorder, recurrent epi sode, moderate F33.1 [place] [address] [address] Jul, [place] [address] [address] Jul, Hypothyroidism, unspecified E03.9 [place] [address] [address] Jul, Hypothyroidism, unspecified E03.9 [place] [address] [address] Jul, Mixed hyperlipidemia E78.2 [place] [address] [address] Jul, Mixed hyperlipidemia E78.2 [facility] [address] [facility] [id number] [address] [place] [address] 08 Jul, 2017 Bronchitis J40 ; Cough R05 a nd Wheezing R06.2 [place] [address] [address] Jul, Major depressive disorder, recurrent epi sode, moderate F33.1 and Generalized anxiety disorder F41.1 [place] [address] [address] Jul, [place] [address] [address] Jul, Major depressive disorder, recurrent epi sode, moderate F33.1 and Generalized anxiety disorder F41.1 [place] [address] [address] Jul, Generalized anxiety disorder F41.1 and M christel depressive disorder, recurrent episode, moderate F33.1 [place] [address] [address] Jul, Mixed hyperlipidemia E78.2 [place] [address] [address] Jun, Depression, unspecified depression type F32.9 ; Cervicalgia M54.2 ; Trigger point M79.1 ; Hypothyroidism, unspecified E03.9 ; Screening, lipid Z13.220 and Mixed hyperlipidemia E78.2 [place] [address] [address] Jun, [place] [address] [address] May, [place] [address] [address] Apr, Acute bronchitis due to other specified organisms J20.8 and Tobacco abuse counseling Z71.6 [place] [address] [address] Mar, Depression, unspecified depression type F32.9 [place] [address] [address] Jan, Chronic pain syndrome G89.4 [address] [place] [address] [address] Nov, Anxiety F41.9 ; Depression, unspecified depression type F32.9 and Chronic pain syndrome G89.4 [address] [address] [address] Oct, Anxiety F41.9 and Hypothyroidism, unspec ified E03.9 [facility] [address] [facility] [id number] [address] [place] [address] Oct, Left foot pain M79.672 and C ontusion of left foot, 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 S90.32XA [place] [address] [address] Oct, [place] [address] [address] September, Cervicalgia M54.2 [place] [address] [address] September, [place] [address] [address] Aug, Cervicalgia M54.2 [place] [address] [address] Aug, Cervicalgia M54.2 and Left arm numbness R20.0 [facility] [address] [address] Aug, [facility] [address] [address] Aug, [facility] [address] [address] Jul, [facility] [address] [address] Jul, [facility] [address] [address] Jul, [facility] [address] [address] Jul, Acute midline low back pain without scia zak M54.5 [facility] [address] [address] Jun, Acute midline low back pain without scia zak M54.5 [facility] [address] [address] Jun, Chronic pain syndrome G89.4 and Muscle s pasm M62.838 [facility] [address] [address] Jun, [facility] [address] [address] Jun, Acute midline low back pain without scia zak M54.5 [facility] [address] [address] Jun, [facility] [address] [address] May, [facility] [address] [address] May, Hypothyroidism, unspecified E03.9 ; 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 ; Hyperglycemia R73.9 ; Encounter for immunization Z23 and Mixed hyperlipidemia E78.2 [facility] [address] [address] 30 Apr, 2016 Fatigue 780.79 [facility] [address] [address] 10 Apr, 2016 Chronic pain syndrome G89.4 [facility] [address] [address] Mar, [facility] [address] [address] Mar, Chronic pain syndrome G89.4 [facility] [address] [address] Jan, [facility] [address] [address] Dec, [place] [address] [address] Dec, Chronic pain syndrome G89.4 [place] [address] [address] Dec, Trigger point M79.2 [place] [address] [address] Nov, Chronic pain syndrome G89.4 [place] [address] [address] Oct, Chronic pain syndrome G89.4 [place] [address] [address] Oct, Irritant contact dermatitis due to deter gent L24.0 [place] [address] [address] September, Hypothyroidism, unspecified E03.9 and De pression, unspecified depression type F32.9 [facility] [address] [address] September, Chronic pain syndrome G89.4 [facility] [address] [address] Aug, [facility] [id number] [place] [address] Aug, Trigger point M79.2 [facility] [id number] [place] [address] Jul, Chronic pain syndrome G89.[address] m 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.891 [facility] [id number] [place] [address] Jul, Chronic pain syndrome G89.[address] m 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.891 [facility] [address] [address] Jul, [facility] [id number] [place] [address] Jul, [facility] [address] [address] Jun, [facility] [id number] [place] [address] May, [facility] [address] [address] May, [facility] [address] [address] May, [facility] [address] [address] May, Pneumonia, organism unspecified, unspeci fied laterality, unspecified part of lung J18.9 [facility] [id number] [place] [address] May, Pneumonia, organism unspecified, unspeci fied laterality, unspecified part of lung J18.9 [facility] [id number] [place] [address] Apr, [facility] [address] [address] Apr, [facility] [id number] [place] [address] Apr, [facility] [address] [address] Apr, [facility] [id number] [place] [address] Apr, [facility] [address] [address] Apr, Epigastric pain R10.13 [facility] [id number] [place] [address] Mar, Tinea pedis B35.3 and Contact dermatitis and eczema due to detergents L24.0 [facility] [id number] [place] [address] Mar, [facility] [address] [address] Jan, [facility] [address] [address] Jan, [facility] [address] [address] Jan, [facility] [address] [address] Dec, [facility] [address] [address] Nov, [facility] [address] [address] Nov, Fatigue 780.79 [facility] [id number] [place] [address] Nov, [facility] [address] [address] Nov, Unspecified myalgia and myositis 729.1 [facility] [id number] [place] [address] Nov, Hypercalcemia 275.42 [facility] [id number] [place] [address] Nov, Fatigue 780.79 ; Bradycardia 427.89 ; Ch ronic pain 338.29 and Family history of diabetes mellitus V18.0 [facility] [id number] [place] [address] Nov, Fatigue 780.79 ; Chronic pain 338.29 ; F amily history of diabetes mellitus V18.0 ; Bradycardia 427.89 ; Hypothyroid 244.9 and Anxiety 300.00 [facility] [id number] [place] [address] Oct, [facility] [address] [address] September, [facility] [id number] [place] [address] Aug, [facility] [id number] [place] [address] Aug, [facility] [id number] [place] [address] Aug, [facility] [id number] [place] [address] Jul, [facility] [id number] [place] [address] Jul, [facility] [id number] [place] [address] Jul, [facility] [id number] [place] [address] Jul, [facility] [id number] [place] [address] Jun, [facility] [id number] [place] [address] Jun, [facility] [id number] [place] [address] Jun, [facility] [id number] [place] [address] Jun, [facility] [address] [facility] [id number] [place] [address] Jun, [facility] [address] [id number] [place] [address] Jun, [facility] [address] [id number] [place] [address] May, [facility] [address] [id number] [place] [address] May, [facility] [address] [id number] [place] [address] May, [facility] [address] [id number] [place] [address] May, [facility] [address] [id number] [place] [address] May, [facility] [address] [id number] [place] [address] May, [facility] [address] [id number] [place] [address] May, [facility] [address] [id number] [place] [address] May, [facility] [address] [id number] [place] [address] May, [facility] [address] [id number] [place] [address] May, [facility] [address] [id number] [place] [address] Apr, [facility] [address] [id number] [place] [address] Apr, [facility] [address] [id number] [place] [address] Apr, [facility] [address] [id number] [place] [address] Apr, [facility] [address] [id number] [place] [address] 19 Apr, 2014 [facility] [address] [id number] [place] [address] 19 Apr, 2014 [facility] [address] [id number] [place] [address] 18 Apr, 2014 [facility] [address] [id number] [place] [address] 18 Apr, 2014 [facility] [address] [id number] [place] [address] 17 Apr, 2014 [facility] [address] [id number] [place] [address] 17 Apr, 2014 [facility] [address] [id number] [place] [address] Apr, [facility] [address] [id number] [place] [address] 13 Apr, 2014 [facility] [address] [id number] [place] [address] 11 Apr, 2014 [facility] [address] [id number] [place] [address] 10 Apr, 2014 [facility] [address] [id number] [place] [address] 10 Apr, 2014 [facility] [address] [id number] [place] [address] 16 Mar, 2014 [facility] [address] [id number] [place] [address] 16 Mar, 2014 [facility] [address] [id number] [place] [address] 16 Mar, 2014 [facility] [address] [id number] [place] [address] 16 Mar, 2014 [facility] [address] [id number] [place] [address] 19 Jan, 2014 [facility] [address] [id number] [place] [address] Jan, [facility] [address] [facility] [id number] [place] [address] Jan, [facility] [address] [facility] [id number] [place] [address] Jan, [facility] [address] [id number] [place] [address] Jan, [facility] [address] [id number] [place] [address] Jan, [facility] [address] [facility] [id number] [place] [address] Dec, [facility] [address] [id number] [place] [address] Dec, [facility] [address] [id number] [place] [address] Dec, [facility] [address] [id number] [place] [address] Dec, [facility] [address] [id number] [place] [address] Nov, [facility] [address] [id number] [place] [address] Nov, [facility] [address] [id number] [place] [address] Nov, [facility] [address] [id number] [place] [address] Nov, [facility] [address] [id number] [place] [address] Oct, [facility] [address] [id number] [place] [address] Oct, [facility] [address] [id number] [place] [address] Oct, [facility] [address] [id number] [place] [address] Oct, [facility] [address] [id number] [place] [address] Oct, [facility] [address] [facility] [id number] [place] [address] Oct, [facility] [address] [facility] [id number] [facility] [place] [address] Oct, [facility] [address] [id number] [facility] [place] [address] Oct, [facility] [address] [id number] [facility] [place] [address] Oct, [facility] [address] [facility] [id number] [facility] [place] [address] Oct, [facility] [address] [id number] [place] [address] September, [facility] [address] [id number] [place] [address] September, [facility] [address] [id number] [place] [address] September, [facility] [address] [id number] [place] [address] September, [facility] [address] [id number] [place] [address] September, [facility] [address] [id number] [place] [address] September, [facility] [address] [id number] [place] [address] September, [facility] [address] [id number] [place] [address] September, [facility] [address] [id number] [place] [address] September, [facility] [address] [id number] [place] [address] Aug, [facility] [address] [id number] [place] [address] Aug, [facility] [address] [id number] [facility] [place] [address] 30 Aug, 2013 [facility] [address] [facility] [id number] [place] [address] 30 Aug, 2013 [facility] [address] [facility] [id number] [place] [address] Aug, [facility] [address] [id number] [place] [address] Aug, [facility] [address] [facility] [id number] [place] [address] Aug, [facility] [address] [facility] [id number] [facility] [place] [address] Aug, [facility] [address] [id number] [place] [address] Jul, [facility] [address] [id number] [place] [address] Jul, [facility] [address] [id number] [place] [address] Jul, [facility] [address] [id number] [place] [address] Jul, [facility] [address] [id number] [place] [address] 24 Jul, 2013 [facility] [address] [id number] [place] [address] Jul, [facility] [address] [id number] [place] [address] Jul, [facility] [address] [facility] [id number] [place] [address] 18 Jul, 2013 [facility] [address] [id number] [place] [address] 18 Jul, 2013 [facility] [address] [id number] [place] [address] Jul, [facility] [address] [id number] [place] [address] Jul, [facility] [address] [id number] [place] [address] Jul, [facility] [address] [id number] [place] [address] Jul, [facility] [address] [id number] [place] [address] Jul, [facility] [address] [id number] [place] [address] Jul, [facility] [address] [id number] [place] [address] Jul, [facility] [address] [id number] [place] [address] Jul, [facility] [address] [id number] [place] [address] Jul, [facility] [address] [id number] [place] [address] Jul, [facility] [address] [id number] [place] [address] Jun, [facility] [address] [id number] [place] [address] Jun, [facility] [address] [id number] [place] [address] May, [facility] [address] [id number] [place] [address] May, [facility] [address] [id number] [place] [address] Apr, [facility] [address] [id number] [place] [address] Apr, [facility] [address] [id number] [place] [address] Apr, [facility] [address] [id number] [place] [address] Apr, [facility] [address] [id number] [place] [address] Apr, [facility] [address] [facility] [id number] [facility] [place] [address] Apr, [facility] [address] [facility] [id number] [place] [address] Mar, [facility] [address] [id number] [place] [address] Mar, [facility] [address] [id number] [place] [address] Mar, [facility] [address] [id number] [place] [address] Mar, [facility] [address] [id number] [place] [address] Jan, [facility] [address] [id number] [place] [address] Jan, [facility] [address] [id number] [place] [address] Jan, [facility] [address] [id number] [place] [address] Dec, [facility] [address] [id number] [place] [address] Dec, [facility] [address] [id number] [place] [address] Dec, [facility] [address] [id number] [place] [address] Dec, [facility] [address] [id number] [place] [address] Nov, [facility] [address] [id number] [place] [address] Nov, [facility] [address] [id number] [place] [address] Nov, [facility] [address] [id number] [place] [address] Oct, [facility] [address] [id number] [place] [address] 24 Oct, 2012 [facility] [address] [id number] [place] [address] Oct, [facility] [address] [id number] [place] [address] Oct, [facility] [address] [id number] [place] [address] Oct, [facility] [address] [id number] [place] [address] Oct, [facility] [address] [id number] [place] [address] September, [facility] [address] [id number] [place] [address] Jul, [facility] [address] [id number] [place] [address] Jul, [facility] [address] [id number] [place] [address] Jul, [facility] [address] [id number] [place] [address] Jul, [facility] [address] [id number] [place] [address] Jul, [facility] [address] [id number] [place] [address] Jul, [facility] [address] [id number] [place] [address] Jun, [facility] [address] [id number] [place] [address] Apr, [facility] [address] [id number] [place] [address] Apr, [facility] [address] [id number] [place] [address] 24 Jan, 2012 [facility] [address] [id number] [place] [address] Dec, [facility] [address] [id number] [place] [address] Nov, [facility] [address] [id number] [facility] [place] [address] Oct, [facility] [address] [id number] [place] [address] September, [facility] [address] [id number] [place] [address] September, [facility] [address] [facility] [id number] [place] [address] Jul, [facility] [address] [id number] [place] [address] Jul, [facility] [address] [id number] [place] [address] Jul, [facility] [address] [id number] [place] [address] Jul, [facility] [address] [id number] [place] [address] Jul, [facility] [address] [id number] [place] [address] Jul, [facility] [address] [id number] [place] [address] Jul, [facility] [address] [id number] [place] [address] Jul, [facility] [address] [id number] [place] [address] 08 Jul, 2011 [facility] [address] [id number] [place] [address] 07 Jul, 2011 [facility] [address] [id number] [place] [address] Jun, [facility] [address] [id number] [place] [address] May, [facility] [id number] [place] [address] May, [facility] [id number] [place] [address] May, [facility] [id number] [place] [address] Apr, [facility] [id number] [place] [address] Apr, [facility] [id number] [place] [address] Mar, [facility] [address] [address] Mar, [facility] [address] [address] Mar, [facility] [id number] [place] [address] Mar, [facility] [id number] [place] [address] Mar, [facility] [id number] [place] [address] September, [facility] [id number] [place] [address] Mar, [facility] [id number] [place] [address] Dec, [facility] [id number] [place] [address] May, [facility] [id number] [place] [address] May, IMMUNIZATIONS No Known Immunizations SOCIAL HISTORY [...]
--- OUTSIDE RECORDS SUMMARY | 2019-10-01 11:03 | XMS REPORT ---
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 Active 195163656 Problem Chronic pain syndrome G89.4 Active 610433753 Problem Hypothyroidism, unspecified E03.9 Ac tive 95540166 Problem Depression, unspecified depression type F32.9 Active 71181587 Problem Major depressive disorder, recurrent episode, moderate F33.1 Active 567763113 Problem Generalized anxiety disorder F41.1 A ctive 92195891 Problem Chronic tension-type headache, intractable G44.221 Active 650443254 Problem Major depressive disorder, recurrent, unspecified F33.9 Active 40278951 Problem Anxiety F41.9 Active 79934479 Problem Primary insomnia F51.01 Active 397 2004 Problem Mixed hyperlipidemia E78.2 Active 235910116 Problem Cervical spondylosis with radiculopathy M47.22 Active 216438005 Problem Chronic migraine G43.709 Active 377 31056 Problem Other chronic pain G89.29 Active 8 4991597 Problem Grief F43.21 Active [id number] ALLERGIES No Information ENCOUNTERS Encounter Location Date Diagnosis [place] [id number] [place] [address] Jul, [id number] [place] [address] Jul, Pain in left knee M25.562 ; Other chroni c pain G89.29 and Financial difficulties Z59.8 [place] [id number] [place] [address] Jul, [place] [address] [address] 13 Jul, 2019 Generalized anxiety disorder F41.1 and Sylvia kearney depressive disorder, recurrent episode, moderate F33.1 [place] [address] [address] 06 Jul, 2019 [place] [address] [address] 04 Jul, 2019 Cervical spondylosis with radiculopathy M47.22 [place] [address] [address] Jun, [facility] [address] [facility] [id number] [address] [place] [address] Jun, Allergic urticaria L50.0 [place] [address] [address] 15 Jun, 2019 Cervical spondylosis with radiculopathy M47.22 [place] [address] [address] 14 Jun, 2019 Hypothyroidism, unspecified E03.9 [place] [address] [address] Jun, [place] [address] [address] Jun, Major depressive disorder, recurrent, un specified F33.9 ; Primary insomnia F51.01 and Strain of lumbar region, 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 S39.012A [place] [address] [address] 06 Jun, 2019 Cervical spondylosis with radiculopathy M47.22 [place] [address] [address] 02 Jun, 2019 Back strain, subsequent encounter S39.01 2D [place] [address] [address] 02 Jun, 2019 [place] [address] [address] May, Cervical spondylosis with radiculopathy M47.22 [place] [address] [address] Apr, [place] [address] [address] Apr, Cervical spondylosis with radiculopathy M47.22 [place] [address] [address] Mar, Cervical spondylosis with radiculopathy M47.22 [place] [address] [address] Jan, Generalized anxiety disorder F41.1 and M lopezor depressive disorder, recurrent, unspecified F33.9 [place] [address] [address] 16 Jan, 2019 Cervical spondylosis with radiculopathy M47.22 [place] [address] [address] Jan, [place] [address] [address] Jan, Major depressive disorder, recurrent epi sode, moderate F33.1 and Generalized anxiety disorder F41.1 [place] [address] [address] Dec, [place] [address] [address] Dec, Cervical spondylosis with radiculopathy M47.22 [place] [address] [address] Nov, Cervical spondylosis with radiculopathy M47.22 [place] [address] [address] Nov, Hypothyroidism, unspecified E03.9 [place] [address] [address] Nov, Cervical spondylosis with radiculopathy M47.22 [place] [address] [address] Oct, Cervical spondylosis with radiculopathy M47.22 [place] [address] [address] Oct, Grief F43.21 [address] [place] [address] Oct, [place] [address] [address] Oct, Major depressive disorder, recurrent epi sode, moderate F33.1 and Chronic tension-type headache, intractable G44.221 [place] [address] [address] Oct, [address] [address] Oct, Breast cancer screening by mammogram Z12 .[address] [address] September, Cervical spondylosis with radiculopathy M47.22 [place] [address] [address] September, Cervical spondylosis with radiculopathy M47.[address] [address] Aug, Chronic pain syndrome G89.4 ; Cervicalgi a M54.2 ; Chronic nonintractable headache, unspecified headache type R51 and Alopecia L65.[address] [address] Jul, Cervical spondylosis with radiculopathy M47.22 [place] [address] [address] Jul, [address] [address] Jul, Cervical spondylosis with radiculopathy M47.22 [place] [address] [address] Jul, [place] [address] [address] Jul, Cervical spondylosis with radiculopathy M47.22 [place] [address] [address] Jul, Cervical spondylosis with radiculopathy M47.22 [place] [address] [address] Jul, [place] [address] [address] Jun, Major depressive disorder, recurrent epi sode, moderate F33.1 ; Low back pain M54.5 and Other chronic pain G89.29 [place] [address] [address] Jun, [place] [address] [address] Jun, Bronchitis J40 ; Mixed hyperlipidemia E7 8.2 ; Cervical spondylosis with radiculopathy M47.22 ; 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 ; Major depressive disorder, recurrent episode, moderate F33.1 ; Hypothyroidism, unspecified E03.9 ; Low back pain M54.5 ; Other chronic pain G89.29 and Chronic tension-type headache, intractable G44.221 [place] [address] [address] Jun, Cervical spondylosis with radiculopathy M47.22 [place] [address] [address] May, [place] [address] [address] May, Cervical spondylosis with radiculopathy M47.22 [facility] [address] [facility] [id number] [address] [place] [address] 07 May, 2018 Acute nasopharyngitis J00 an d Wheezing R06.2 [place] [address] [address] 04 May, 2018 [place] [address] [address] Apr, Cervical spondylosis with radiculopathy M47.22 [place] [address] [address] Mar, Mixed hyperlipidemia E78.2 and Family hi story of stroke Z82.3 [place] [address] [address] 18 Mar, 2018 Cervical spondylosis with radiculopathy M47.22 [place] [address] [address] 17 Mar, 2018 Hypothyroidism, unspecified E03.9 ; Cerv icalgia M54.2 and Chronic migraine G43.709 [place] [address] [address] 15 Mar, 2018 Cervical spondylosis with radiculopathy M47.22 [place] [address] [address] 08 Mar, 2018 Chronic migraine G43.709 ; Cervicalgia M 54.2 and Family history of stroke Z82.3 [place] [address] [address] 14 Jan, 2018 Cervical spondylosis with radiculopathy M47.22 [place] [address] [address] 05 Jan, 2018 Reactive airway disease that is not asth ma R09.89 [facility] [address] [facility] [id number] [address] [place] [address] Dec, Allergic dermatitis due to o ther chemical product L23.5 [place] [address] [address] Dec, Cervical spondylosis with radiculopathy M47.22 and Depression, unspecified depression type F32.9 [place] [address] [address] Oct, [place] [address] [address] Oct, [place] [address] [address] Oct, [place] [address] [address] September, Chronic pain syndrome G89.[address] [address] September, Depression, unspecified depression type F32.9 and Cervicalgia M54.[address] [address] September, Chronic pain syndrome G89.4 [place] [address] [address] Aug, Red stool R19.[address] [address] Aug, Depression, unspecified depression type F32.9 ; Chronic pain syndrome G89.4 ; Chronic tension-type headache, intractable G44.221 ; Red stool R19.5 ; Hypothyroidism, unspecified E03.9 and Mixed hyperlipidemia E78.2 [place] [address] [address] Jul, Major depressive disorder, recurrent epi sode, moderate F33.1 [place] [address] [address] Jul, [address] [address] Jul, Hypothyroidism, unspecified E03.[address] [address] Jul, Hypothyroidism, unspecified E03.9 [facility] [address] [address] Jul, Mixed hyperlipidemia E78.2 [place] [address] [address] Jul, Mixed hyperlipidemia E78.2 [facility] [address] [facility] [id number] [address] [place] [address] Jul, Bronchitis J40 ; Cough R05 a nd Wheezing R06.2 [place] [address] [address] Jul, Major depressive disorder, recurrent epi sode, moderate F33.1 and Generalized anxiety disorder F41.1 [place] [address] [address] Jul, [place] [address] [address] Jul, Major depressive disorder, recurrent epi sode, moderate F33.1 and Generalized anxiety disorder F41.1 [place] [address] [address] Jul, Generalized anxiety disorder F41.1 and M ajor depressive disorder, recurrent episode, moderate F33.1 [place] [address] [address] Jul, Mixed hyperlipidemia E78.2 [place] [address] [address] Jun, Depression, unspecified depression type F32.9 ; Cervicalgia M54.2 ; Trigger point M79.1 ; Hypothyroidism, unspecified E03.9 ; Screening, lipid Z13.220 and Mixed hyperlipidemia E78.2 [place] [address] [address] Jun, [place] [address] [address] May, [place] [address] [address] Apr, Acute bronchitis due to other specified organisms J20.8 and Tobacco abuse counseling Z71.6 [place] [address] [address] Mar, Depression, unspecified depression type F32.9 [place] [address] [address] Jan, Chronic pain syndrome G89.4 [place] [address] [address] Nov, Anxiety F41.9 ; Depression, unspecified depression type F32.9 and Chronic pain syndrome G89.4 [place] [address] [address] Oct, Anxiety F41.9 and Hypothyroidism, unspec ified E03.9 [facility] [address] [facility] [id number] [address] [place] [address] Oct, Left foot pain M79.672 and C ontusion of left foot, 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 S90.32XA [place] [address] [address] Oct, [place] [address] [address] September, Cervicalgia M54.2 [place] [address] [address] September, [place] [address] [address] Aug, Cervicalgia M54.2 [place] [address] [address] Aug, Cervicalgia M54.2 and Left arm numbness R20.0 [place] [address] [address] Aug, [place] [address] [address] Aug, [facility] [address] [address] Jul, [facility] [address] [address] Jul, [facility] [address] [address] Jul, [facility] [address] [address] Jul, Acute midline low back pain without scia zak M54.5 [place] [address] [address] Jun, Acute midline low back pain without scia zak M54.5 [place] [address] [address] Jun, Chronic pain syndrome G89.4 and Muscle s pasm M62.838 [place] [address] [address] Jun, [facility] [address] [address] Jun, Acute midline low back pain without scia zak M54.5 [place] [address] [address] Jun, [place] [address] [address] May, [facility] [address] [address] May, Hypothyroidism, unspecified E03.9 ; 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 ; Hyperglycemia R73.9 ; Encounter for immunization Z23 and Mixed hyperlipidemia E78.2 [facility] [address] [address] Apr, Fatigue 780.79 [facility] [address] [address] Apr, Chronic pain syndrome G89.4 [facility] [id number] [place] [address] Mar, [facility] [address] [address] Mar, Chronic pain syndrome G89.4 [facility] [address] [address] Jan, [facility] [address] [address] Dec, [facility] [address] [address] Dec, Chronic pain syndrome G89.4 [facility] [address] [address] Dec, Trigger point M79.2 [place] [address] [address] Nov, Chronic pain syndrome G89.4 [facility] [address] [address] Oct, Chronic pain syndrome G89.4 [facility] [address] [address] Oct, Irritant contact dermatitis due to deter gent L24.0 [place] [address] [address] September, Hypothyroidism, unspecified E03.9 and De pression, unspecified depression type F32.9 [facility] [address] [address] September, Chronic pain syndrome G89.4 [facility] [address] [address] Aug, [facility] [address] [address] Aug, Trigger point M79.2 [facility] [address] [address] Jul, Chronic pain syndrome G89.4 and 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 [facility] [id number] [place] [address] Jul, Chronic pain syndrome G89.[address] m 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.891 [facility] [id number] [place] [address] Jul, [facility] [id number] [place] [address] Jul, [facility] [id number] [place] [address] Jun, [facility] [id number] [place] [address] May, [facility] [id number] [place] [address] May, [facility] [id number] [place] [address] May, [facility] [id number] [place] [address] May, Pneumonia, organism unspecified, unspeci fied laterality, unspecified part of lung J18.9 [facility] [id number] [place] [address] May, Pneumonia, organism unspecified, unspeci fied laterality, unspecified part of lung J18.9 [facility] [id number] [place] [address] Apr, [facility] [id number] [place] [address] Apr, [facility] [id number] [place] [address] Apr, [facility] [id number] [place] [address] Apr, [facility] [address] [address] Apr, [facility] [id number] [place] [address] Apr, Epigastric pain R10.13 [facility] [id number] [place] [address] Mar, Tinea pedis B35.3 and Contact dermatitis and eczema due to detergents L24.0 [place] [id number] [place] [address] Mar, [facility] [address] [place] [address] Jan, [facility] [address] [address] Jan, [facility] [address] [address] Jan, [place] [address] [address] Dec, [facility] [id number] [place] [address] Nov, [place] [address] [address] Nov, Fatigue 780.79 [place] [id number] [place] [address] Nov, [facility] [address] [address] Nov, Unspecified myalgia and myositis 729.1 [place] [address] [place] [address] Nov, Hypercalcemia 275.42 [place] [address] [place] [address] Nov, Fatigue 780.79 ; Bradycardia 427.89 ; Ch ronic pain 338.29 and Family history of diabetes mellitus V18.0 [place] [id number] [place] [address] Nov, Fatigue 780.79 ; Chronic pain 338.29 ; F amily history of diabetes mellitus V18.0 ; Bradycardia 427.89 ; Hypothyroid 244.9 and Anxiety 300.00 [facility] [id number] [place] [address] Oct, [facility] [address] [address] September, [facility] [address] [address] Aug, [facility] [address] [address] Aug, [facility] [address] [address] Aug, [facility] [address] [address] Jul, [facility] [address] [address] Jul, [facility] [address] [address] Jul, [facility] [address] [address] Jul, [facility] [address] [address] Jun, [facility] [address] [address] Jun, [facility] [address] [address] Jun, [facility] [address] [address] Jun, [facility] [address] [address] Jun, [facility] [address] [address] Jun, [facility] [address] [id number] [place] [address] May, [facility] [address] [id number] [place] [address] May, [facility] [address] [id number] [place] [address] May, [facility] [address] [id number] [place] [address] May, [facility] [address] [id number] [place] [address] May, [facility] [address] [id number] [place] [address] May, [facility] [address] [id number] [place] [address] May, [facility] [address] [id number] [place] [address] May, [facility] [address] [id number] [place] [address] May, [facility] [address] [id number] [place] [address] May, [facility] [address] [id number] [place] [address] Apr, [facility] [address] [id number] [place] [address] Apr, [facility] [address] [id number] [place] [address] Apr, [facility] [address] [id number] [place] [address] Apr, [facility] [address] [id number] [place] [address] Apr, [facility] [address] [id number] [place] [address] Apr, [facility] [address] [id number] [place] [address] 18 Apr, 2014 [facility] [address] [id number] [place] [address] 18 Apr, 2014 [facility] [address] [id number] [place] [address] 17 Apr, 2014 [facility] [address] [id number] [place] [address] 17 Apr, 2014 [facility] [address] [id number] [place] [address] Apr, [facility] [address] [facility] [id number] [place] [address] 13 Apr, 2014 [facility] [address] [id number] [place] [address] 11 Apr, 2014 [facility] [address] [id number] [place] [address] 10 Apr, 2014 [facility] [address] [id number] [place] [address] 10 Apr, 2014 [facility] [address] [id number] [place] [address] 16 Mar, 2014 [facility] [address] [id number] [place] [address] 16 Mar, 2014 [facility] [address] [id number] [place] [address] 16 Mar, 2014 [facility] [address] [id number] [place] [address] 16 Mar, 2013 [facility] [address] [id number] [place] [address] 19 Jan, 2013 [facility] [address] [id number] [place] [address] 19 Jan, 2013 [facility] [address] [id number] [place] [address] 18 Jan, 2013 [facility] [address] [id number] [place] [address] 18 Jan, 2013 [facility] [address] [id number] [place] [address] Jan, [facility] [address] [id number] [place] [address] Jan, [facility] [address] [facility] [id number] [place] [address] Dec, [facility] [address] [id number] [place] [address] Dec, [facility] [address] [facility] [id number] [place] [address] Dec, [facility] [address] [id number] [place] [address] Dec, [facility] [address] [id number] [place] [address] Nov, [facility] [address] [id number] [place] [address] Nov, [facility] [address] [id number] [place] [address] Nov, [facility] [address] [facility] [id number] [place] [address] Nov, [facility] [address] [id number] [place] [address] Oct, [facility] [address] [id number] [place] [address] Oct, [facility] [address] [id number] [place] [address] Oct, [facility] [address] [facility] [id number] [place] [address] Oct, [facility] [address] [id number] [place] [address] Oct, [facility] [address] [id number] [place] [address] Oct, [facility] [address] [id number] [place] [address] Oct, [facility] [address] [id number] [place] [address] Oct, [facility] [address] [id number] [place] [address] Oct, [facility] [address] [id number] [place] [address] Oct, [facility] [address] [id number] [place] [address] September, [facility] [address] [id number] [place] [address] September, [facility] [address] [id number] [place] [address] September, [facility] [address] [id number] [place] [address] September, [facility] [address] [id number] [place] [address] September, [facility] [address] [id number] [place] [address] September, [facility] [address] [id number] [place] [address] September, [facility] [place] [facility] [address] [id number] [place] [address] September, [facility] [place] [facility] [address] [id number] [place] [address] September, [facility] [place] [facility] [address] [id number] [place] [address] Aug, [facility] [place] [facility] [address] [id number] [place] [address] Aug, [facility] [place] [facility] [address] [id number] [place] [address] Aug, [facility] [place] [facility] [address] [id number] [place] [address] Aug, [facility] [place] [facility] [address] [id number] [place] [address] Aug, [facility] [place] [facility] [address] [facility] [id number] [place] [address] Aug, [facility] [place] [facility] [address] [facility] [id number] [place] [address] Aug, [facility] [place] [facility] [address] [facility] [id number] [place] [address] Aug, [facility] [place] [facility] [address] [facility] [id number] [place] [address] Jul, [facility] [place] [facility] [address] [facility] [id number] [place] [address] Jul, [facility] [place] [facility] [address] [facility] [id number] [place] [address] Jul, [facility] [place] [facility] [address] [id number] [place] [address] 24 Jul, 2013 [facility] [place] [facility] [address] [id number] [place] [address] 24 Jul, 2013 [facility] [place] [facility] [address] [facility] [id number] [place] [address] Jul, [facility] [place] [facility] [address] [id number] [place] [address] Jul, [facility] [place] [facility] [address] [id number] [place] [address] 18 Jul, 2013 [facility] [place] [facility] [address] [id number] [place] [address] 18 Jul, 2013 [facility] [place] [facility] [address] [facility] [id number] [place] [address] 17 Jul, 2013 [facility] [place] [facility] [address] [facility] [id number] [place] [address] 17 Jul, 2013 [facility] [place] [facility] [address] [facility] [id number] [place] [address] 13 Jul, 2013 [facility] [place] [facility] [address] [id number] [place] [address] Jul, [facility] [place] [facility] [address] [id number] [place] [address] 05 Jul, 2013 [facility] [place] [facility] [address] [id number] [place] [address] Jul, [facility] [place] [facility] [address] [id number] [place] [address] Jul, [facility] [place] [facility] [address] [id number] [place] [address] Jul, [facility] [place] [facility] [address] [id number] [place] [address] Jul, [facility] [place] [facility] [address] [id number] [place] [address] Jul, [facility] [place] [facility] [address] [id number] [place] [address] Jun, [facility] [place] [facility] [address] [id number] [place] [address] Jun, [facility] [place] [facility] [address] [id number] [place] [address] May, [facility] [place] [facility] [address] [id number] [place] [address] May, [facility] [place] [facility] [address] [id number] [place] [address] Apr, [facility] [place] [facility] [address] [id number] [place] [address] Apr, [facility] [place] [facility] [address] [id number] [place] [address] Apr, [facility] [place] [facility] [address] [id number] [place] [address] Apr, [facility] [place] [facility] [id number] [place] [address] Apr, [facility] [place] [facility] [address] [id number] [place] [address] Apr, [facility] [place] [facility] [id number] [place] [address] Mar, [facility] [place] [facility] [address] [id number] [place] [address] Mar, [facility] [place] [facility] [address] [id number] [place] [address] Mar, [facility] [place] [facility] [address] [id number] [place] [address] Mar, [facility] [place] [facility] [address] [id number] [place] [address] Jan, [facility] [place] [facility] [address] [facility] [id number] [place] [address] Jan, [facility] [place] [facility] [address] [id number] [place] [address] Jan, [facility] [place] [facility] [address] [id number] [place] [address] Dec, [facility] [place] [facility] [address] [id number] [place] [address] Dec, [facility] [place] [facility] [address] [id number] [place] [address] Dec, [facility] [place] [facility] [address] [id number] [place] [address] Dec, [facility] [place] [facility] [address] [id number] [place] [address] Nov, [facility] [place] [facility] [address] [id number] [place] [address] Nov, [facility] [place] [facility] [address] [id number] [place] [address] Nov, [facility] [place] [facility] [address] [id number] [place] [address] Oct, [facility] [place] [facility] [address] [id number] [place] [address] Oct, [facility] [place] [facility] [address] [id number] [place] [address] Oct, [facility] [place] [facility] [address] [id number] [place] [address] 14 Oct, 2012 [facility] [place] [facility] [address] [id number] [place] [address] Oct, [facility] [place] [facility] [address] [id number] [place] [address] Oct, [facility] [place] [facility] [address] [id number] [place] [address] September, [facility] [place] [facility] [address] [id number] [place] [address] Jul, [facility] [place] [facility] [address] [id number] [place] [address] Jul, [facility] [place] [facility] [address] [id number] [place] [address] Jul, [facility] [place] [facility] [address] [id number] [place] [address] Jul, [facility] [place] [facility] [address] [id number] [place] [address] Jul, [facility] [place] [facility] [address] [id number] [place] [address] Jul, [facility] [place] [facility] [address] [id number] [place] [address] Jun, [facility] [place] [facility] [address] [id number] [place] [address] Apr, [facility] [place] [facility] [address] [id number] [place] [address] Apr, [facility] [place] [facility] [address] [id number] [place] [address] Jan, [facility] [place] [facility] [address] [id number] [place] [address] Dec, [facility] [place] [facility] [address] [id number] [place] [address] Nov, [facility] [place] [facility] [address] [id number] [place] [address] Oct, [facility] [place] [facility] [address] [id number] [place] [address] September, [facility] [address] [id number] [place] [address] September, [facility] [place] [facility] [address] [id number] [place] [address] Jul, [facility] [place] [facility] [address] [id number] [place] [address] Jul, [facility] [place] [facility] [address] [id number] [place] [address] Jul, [facility] [place] [facility] [address] [id number] [place] [address] Jul, [facility] [place] [facility] [address] [id number] [place] [address] Jul, [facility] [place] [facility] [address] [id number] [place] [address] 17 Jul, 2011 [facility] [place] [facility] [address] [id number] [place] [address] 13 Jul, 2011 [facility] [place] [facility] [address] [id number] [place] [address] Jul, [facility] [place] [facility] [address] [id number] [place] [address] 08 Jul, 2011 [facility] [place] [facility] [address] [id number] [place] [address] 07 Jul, 2011 [facility] [place] [facility] [address] [id number] [place] [address] Jun, [facility] [place] [facility] [address] [id number] [place] [address] May, [facility] [place] [facility] [address] [id number] [place] [address] May, [facility] [place] [facility] [address] [id number] [place] [address] May, [facility] [place] [facility] [address] [id number] [place] [address] Apr, [facility] [id number] [place] [address] Apr, [facility] [id number] [place] [address] Mar, [facility] [id number] [place] [address] Mar, [facility] [id number] [place] [address] Mar, [facility] [id number] [place] [address] Mar, [facility] [address] [address] Mar, [facility] [id number] [place] [address] September, [facility] [address] [address] Mar, [facility] [id number] [place] [address] Dec, [facility] [id number] [place] [address] May, [facility] [id number] [place] [address] May, IMMUNIZATIONS No Known Immunizations SOCIAL HISTORY Never Assessed REASON FOR VISIT PLAN OF CARE VITAL SIGNS Height 63 in 2013-08-11 Weight 177.7 lbs 2013-08-11 Temperature 98.8 degrees Fahrenheit 2013-08-11 Heart Rate 84 bpm 2013-08-11 Respiratory Rate 26 2013-08-11 Blood pressure systolic 150 mmHg 2013-08-11 Blood pressure diastolic 100 mmHg 2013-08-11 MEDICATIONS Unknown Medications RESULTS No Results PROCEDURES Procedure Date Ordered Result Body Site THER/PROPH/DIAG INJ, SC/IM August 11, 2013 INJ KETOROLAC TROMETHAMINE 15 MG August 11, 2013 DRUG SCREEN, QUALITATE/MULTI August 11, 2013 PHENERGAN 12.5 MG August 11, 2013 INSTRUCTIONS MEDICATIONS ADMINISTERED No Known Medications [...]
--- OUTSIDE RECORDS SUMMARY | 2019-10-01 11:03 | XMS REPORT ---
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 Name Role Phone MARBIN CARY Unavailable PROBLEMS Type Condition ICD9-CM Code YMH55-ML Code Onset Dates Condition S tatus SNOMED Code Problem care home 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.891 Active 144303345 Problem Chronic pain syndrome G89.4 Active 994168064 Problem Hypothyroidism, unspecified E03.9 Ac tive 09328312 Problem Depression, unspecified depression type F32.9 Active 88347493 Problem Major depressive disorder, recurrent episode, moderate F33.1 Active 591509000 Problem Generalized anxiety disorder F41.1 A ctive 54792974 Problem Chronic tension-type headache, intractable G44.221 Active 185868374 Problem Major depressive disorder, recurrent, unspecified F33.9 Active 51725086 Problem Anxiety F41.9 Active 84115608 Problem Primary insomnia F51.01 Active 397 2004 Problem Mixed hyperlipidemia E78.2 Active 597614850 Problem Cervical spondylosis with radiculopathy M47.22 Active 959603927 Problem Chronic migraine G43.709 Active 377 40030 Problem Other chronic pain G89.29 Active 8 3763824 Problem Grief F43.21 Active 956552058 ALLERGIES No Information ENCOUNTERS Encounter Location Date Diagnosis [facility] [address] [id number] [place] [address] Jul, [facility] [address] [address] Jul, [facility] [address] [place] [id number] [place] [address] Jul, [facility] [address] [id number] [place] [address] Jul, Generalized anxiety disorder F41.1 and Sylvia kearney depressive disorder, recurrent episode, moderate F33.1 [place] [address] [address] 06 Jul, 2019 [place] [address] [address] 04 Jul, 2019 Cervical spondylosis with radiculopathy M47.22 [place] [address] [address] Jun, [facility] [address] [facility] [id number] [address] [place] [address] Jun, Allergic urticaria L50.0 [place] [address] [address] 15 Jun, 2019 Cervical spondylosis with radiculopathy M47.22 [place] [address] [address] 14 Jun, 2019 Hypothyroidism, unspecified E03.9 [place] [address] [address] Jun, [place] [address] [address] Jun, Major depressive disorder, recurrent, un specified F33.9 ; Primary insomnia F51.01 and Strain of lumbar region, 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 S39.012A [place] [address] [address] 06 Jun, 2019 Cervical spondylosis with radiculopathy M47.22 [place] [address] [address] 02 Jun, 2019 Back strain, subsequent encounter S39.01 2D [place] [address] [address] Jun, [place] [address] [address] May, Cervical spondylosis with radiculopathy M47.22 [place] [address] [address] 14 Apr, 2019 [place] [address] [address] Apr, Cervical spondylosis with radiculopathy M47.22 [place] [address] [address] Mar, Cervical spondylosis with radiculopathy M47.22 [place] [address] [address] Jan, Generalized anxiety disorder F41.1 and M ajor depressive disorder, recurrent, unspecified F33.9 [place] [address] [address] 16 Jan, 2019 Cervical spondylosis with radiculopathy M47.22 [place] [address] [address] Jan, [place] [address] [address] 09 Jan, 2019 Major depressive disorder, recurrent epi sode, moderate F33.1 and Generalized anxiety disorder F41.1 [place] [address] [address] Dec, [place] [address] [address] Dec, Cervical spondylosis with radiculopathy M47.22 [place] [address] [address] Nov, Cervical spondylosis with radiculopathy M47.22 [place] [address] [address] Nov, Hypothyroidism, unspecified E03.9 [place] [address] [address] Nov, Cervical spondylosis with radiculopathy M47.22 [place] [address] [address] Oct, Cervical spondylosis with radiculopathy M47.22 [place] [address] [place] [id number] [place] [address] Oct, Grief F43.21 [facility] [address] [place] [address] Oct, [address] [address] Oct, Major depressive disorder, recurrent epi sode, moderate F33.1 and Chronic tension-type headache, intractable G44.[address] [address] Oct, [address] [address] Oct, Breast cancer screening by mammogram Z12 .[address] [address] September, Cervical spondylosis with radiculopathy M47.[address] [address] September, Cervical spondylosis with radiculopathy M47.[address] [address] Aug, Chronic pain syndrome G89.4 ; Cervicalgi a M54.2 ; Chronic nonintractable headache, unspecified headache type R51 and Alopecia L65.[address] [address] Jul, Cervical spondylosis with radiculopathy M47.[address] [address] Jul, [address] [address] Jul, Cervical spondylosis with radiculopathy M47.[address] [address] Jul, [place] [address] [address] Jul, Cervical spondylosis with radiculopathy M47.22 [place] [address] [address] Jul, Cervical spondylosis with radiculopathy M47.22 [place] [address] [address] Jul, [place] [address] [address] Jun, Major depressive disorder, recurrent epi sode, moderate F33.1 ; Low back pain M54.5 and Other chronic pain G89.29 [place] [address] [address] Jun, [place] [address] [address] Jun, Bronchitis J40 ; Mixed hyperlipidemia E7 8.2 ; Cervical spondylosis with radiculopathy M47.22 ; 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 ; Major depressive disorder, recurrent episode, moderate F33.1 ; Hypothyroidism, unspecified E03.9 ; Low back pain M54.5 ; Other chronic pain G89.29 and Chronic tension-type headache, intractable G44.221 [place] [address] [address] Jun, Cervical spondylosis with radiculopathy M47.22 [place] [address] [address] May, [place] [address] [address] May, Cervical spondylosis with radiculopathy M47.22 [facility] [address] [facility] [id number] [address] [place] [address] May, Acute nasopharyngitis J00 an d Wheezing R06.2 [place] [address] [address] May, [place] [address] [address] Apr, Cervical spondylosis with radiculopathy M47.22 [place] [address] [address] 19 Mar, 2018 Mixed hyperlipidemia E78.2 and Family hi story of stroke Z82.3 [place] [address] [address] 18 Mar, 2018 Cervical spondylosis with radiculopathy M47.22 [place] [address] [address] 17 Mar, 2018 Hypothyroidism, unspecified E03.9 ; Cerv icalgia M54.2 and Chronic migraine G43.709 [place] [address] [address] 15 Mar, 2018 Cervical spondylosis with radiculopathy M47.22 [place] [address] [address] 08 Mar, 2018 Chronic migraine G43.709 ; Cervicalgia M 54.2 and Family history of stroke Z82.3 [place] [address] [address] 14 Jan, 2018 Cervical spondylosis with radiculopathy M47.22 [place] [address] [address] 05 Jan, 2018 Reactive airway disease that is not asth ma R09.89 [facility] [address] [facility] [id number] [address] [place] [address] Dec, Allergic dermatitis due to o ther chemical product L23.5 [place] [address] [address] Dec, Cervical spondylosis with radiculopathy M47.22 and Depression, unspecified depression type F32.9 [place] [address] [address] 14 Oct, 2017 [place] [address] [address] Oct, [place] [address] [address] Oct, [place] [address] [address] September, Chronic pain syndrome G89.4 [place] [address] [address] September, Depression, unspecified depression type F32.9 and Cervicalgia M54.2 [place] [address] [address] September, Chronic pain syndrome G89.4 [place] [address] [address] Aug, Red stool R19.5 [place] [address] [address] Aug, Depression, unspecified depression type F32.9 ; Chronic pain syndrome G89.4 ; Chronic tension-type headache, intractable G44.221 ; Red stool R19.5 ; Hypothyroidism, unspecified E03.9 and Mixed hyperlipidemia E78.2 [place] [address] [address] Jul, Major depressive disorder, recurrent epi sode, moderate F33.1 [place] [address] [address] Jul, [place] [address] [address] Jul, Hypothyroidism, unspecified E03.9 [place] [address] [address] Jul, Hypothyroidism, unspecified E03.9 [place] [address] [address] Jul, Mixed hyperlipidemia E78.2 [facility] [address] [address] Jul, Mixed hyperlipidemia E78.2 [facility] [address] [facility] [id number] [address] [place] [address] Jul, Bronchitis J40 ; Cough R05 a nd Wheezing R06.2 [facility] [address] [address] Jul, Major depressive disorder, recurrent epi sode, moderate F33.1 and Generalized anxiety disorder F41.1 [facility] [address] [address] Jul, [facility] [address] [address] Jul, Major depressive disorder, recurrent epi sode, moderate F33.1 and Generalized anxiety disorder F41.1 [place] [address] [address] Jul, Generalized anxiety disorder F41.1 and M ajor depressive disorder, recurrent episode, moderate F33.1 [place] [address] [address] Jul, Mixed hyperlipidemia E78.2 [facility] [address] [address] Jun, Depression, unspecified depression type F32.9 ; Cervicalgia M54.2 ; Trigger point M79.1 ; Hypothyroidism, unspecified E03.9 ; Screening, lipid Z13.220 and Mixed hyperlipidemia E78.2 [facility] [address] [address] Jun, [place] [address] [address] May, [facility] [address] [address] Apr, Acute bronchitis due to other specified organisms J20.8 and Tobacco abuse counseling Z71.6 [facility] [address] [address] Mar, Depression, unspecified depression type F32.9 [place] [id number] [address] Jan, Chronic pain syndrome G89.4 [place] [address] [address] Nov, Anxiety F41.9 ; Depression, unspecified depression type F32.9 and Chronic pain syndrome G89.4 [facility] [address] [address] Oct, Anxiety F41.9 and Hypothyroidism, unspec ified E03.9 [facility] [address] [facility] [id number] [address] [place] [address] Oct, Left foot pain M79.672 and C ontusion of left foot, 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 S90.32XA [place] [address] [address] Oct, [place] [address] [address] September, Cervicalgia M54.2 [place] [address] [address] September, [place] [address] [address] Aug, Cervicalgia M54.2 [place] [address] [address] Aug, Cervicalgia M54.2 and Left arm numbness R20.0 [place] [address] [address] Aug, [place] [address] [address] Aug, [place] [address] [address] Jul, [facility] [address] [address] Jul, [facility] [address] [address] Jul, [facility] [address] [address] Jul, Acute midline low back pain without scia zak M54.5 [place] [address] [address] Jun, Acute midline low back pain without scia zak M54.5 [place] [address] [address] Jun, Chronic pain syndrome G89.4 and Muscle s pasm M62.838 [place] [address] [address] Jun, [place] [address] [address] Jun, Acute midline low back pain without scia zak M54.5 [place] [address] [address] Jun, [place] [address] [address] May, [place] [address] [address] May, Hypothyroidism, unspecified E03.9 ; 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 ; Hyperglycemia R73.9 ; Encounter for immunization Z23 and Mixed hyperlipidemia E78.2 [place] [address] [address] Apr, Fatigue 780.79 [facility] [address] [address] Apr, Chronic pain syndrome G89.4 [place] [address] [address] Mar, [facility] [address] [address] Mar, Chronic pain syndrome G89.4 [facility] [address] [address] Jan, [facility] [address] [address] Dec, [facility] [address] [address] Dec, Chronic pain syndrome G89.4 [facility] [address] [address] Dec, Trigger point M79.2 [place] [address] [address] Nov, Chronic pain syndrome G89.4 [place] [address] [address] Oct, Chronic pain syndrome G89.4 [facility] [address] [address] Oct, Irritant contact dermatitis due to deter gent L24.0 [place] [address] [address] September, Hypothyroidism, unspecified E03.9 and De pression, unspecified depression type F32.9 [place] [address] [address] September, Chronic pain syndrome G89.4 [facility] [address] [address] Aug, [facility] [address] [address] Aug, Trigger point M79.2 [facility] [address] [address] Jul, Chronic pain syndrome G89.4 and Long mike m 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.891 [place] [id number] [place] [id number] [place] [address] Jul, Chronic pain syndrome G89.4 and 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 [facility] [address] [place] [id number] [place] [address] Jul, [facility] [address] [place] [id number] [place] [address] Jul, [facility] [address] [address] Jun, [facility] [address] [address] May, [facility] [address] [address] May, [facility] [address] [address] May, [facility] [address] [address] May, Pneumonia, organism unspecified, unspeci fied laterality, unspecified part of lung J18.9 [facility] [address] [place] [address] [id number] [place] [address] May, Pneumonia, organism unspecified, unspeci fied laterality, unspecified part of lung J18.9 [facility] [address] [place] [id number] [place] [address] Apr, [facility] [address] [address] Apr, [facility] [address] [place] [address] [place] [address] Apr, [facility] [address] [address] Apr, [facility] [address] [address] Apr, [facility] [address] [address] Apr, Epigastric pain R10.13 [place] [address] [address] Mar, Tinea pedis B35.3 and Contact dermatitis and eczema due to detergents L24.0 [facility] [address] [address] Mar, [facility] [address] [address] Jan, [facility] [address] [address] Jan, [facility] [address] [address] Jan, [place] [address] [address] Dec, [facility] [address] [address] Nov, [facility] [address] [address] Nov, Fatigue 780.79 [place] [address] [address] Nov, [place] [address] [address] Nov, Unspecified myalgia and myositis 729.1 [place] [address] [address] Nov, Hypercalcemia 275.42 [facility] [address] [address] Nov, Fatigue 780.79 ; Bradycardia 427.89 ; Ch ronic pain 338.29 and Family history of diabetes mellitus V18.0 [facility] [address] [address] Nov, Fatigue 780.79 ; Chronic pain 338.29 ; F amily history of diabetes mellitus V18.0 ; Bradycardia 427.89 ; Hypothyroid 244.9 and Anxiety 300.00 [facility] [id number] [place] [address] Oct, [facility] [address] [address] [id number] [place] [address] September, [facility] [address] [place] [address] Aug, [facility] [address] [place] [address] [place] [address] Aug, [facility] [id number] [place] [address] Aug, [facility] [address] [id number] [place] [address] Jul, [facility] [address] [place] [address] Jul, [facility] [address] [place] [address] Jul, [facility] [id number] [place] [address] Jul, [facility] [address] [place] [address] [address] [place] [address] Jun, [facility] [id number] [place] [address] Jun, [facility] [address] [address] [id number] [place] [address] Jun, [facility] [id number] [place] [address] Jun, [facility] [address] [address] Jun, [facility] [address] [place] [address] Jun, [facility] [address] [address] [address] [place] [address] May, [facility] [address] [id number] [place] [address] May, [facility] [address] [id number] [place] [address] May, [facility] [address] [id number] [place] [address] May, [facility] [address] [id number] [place] [address] May, [facility] [address] [id number] [place] [address] May, [facility] [address] [id number] [place] [address] May, [facility] [address] [id number] [place] [address] May, [facility] [address] [id number] [place] [address] May, [facility] [address] [id number] [place] [address] May, [facility] [address] [id number] [place] [address] Apr, [facility] [address] [id number] [place] [address] Apr, [facility] [address] [id number] [place] [address] Apr, [facility] [address] [id number] [place] [address] Apr, [facility] [address] [id number] [place] [address] Apr, [facility] [address] [id number] [place] [address] Apr, [facility] [address] [id number] [place] [address] Apr, [facility] [address] [id number] [place] [address] 18 Apr, 2014 [facility] [address] [id number] [place] [address] 17 Apr, 2014 [facility] [address] [id number] [place] [address] 17 Apr, 2014 [facility] [address] [id number] [place] [address] 13 Apr, 2014 [facility] [address] [id number] [place] [address] 13 Apr, 2014 [facility] [address] [facility] [id number] [place] [address] 11 Apr, 2014 [facility] [address] [id number] [place] [address] 10 Apr, 2014 [facility] [address] [id number] [place] [address] 10 Apr, 2014 [facility] [address] [id number] [place] [address] 16 Mar, 2014 [facility] [address] [id number] [place] [address] 16 Mar, 2014 [facility] [address] [id number] [place] [address] 16 Mar, 2014 [facility] [address] [id number] [place] [address] 16 Mar, 2014 [facility] [address] [id number] [place] [address] 19 Jan, 2013 [facility] [address] [id number] [place] [address] 19 Jan, 2013 [facility] [address] [id number] [place] [address] 18 Sep, 2013 [facility] [address] [id number] [place] [address] 18 Jan, 2013 [facility] [address] [id number] [place] [address] 02 Jan, 2013 [facility] [address] [id number] [place] [address] Jan, [facility] [address] [id number] [place] [id number] Dec, [facility] [address] [facility] [id number] [place] [address] Dec, [facility] [address] [id number] [place] [address] Dec, [facility] [address] [facility] [id number] [place] [address] Dec, [facility] [address] [facility] [id number] [place] [address] Nov, [facility] [address] [id number] [place] [address] Nov, [facility] [address] [id number] [place] [address] Nov, [facility] [address] [id number] [place] [address] Nov, [facility] [address] [id number] [place] [address] Oct, [facility] [address] [id number] [place] [address] Oct, [facility] [address] [id number] [place] [address] Oct, [facility] [address] [id number] [place] [address] Oct, [facility] [address] [facility] [id number] [place] [address] Oct, [facility] [address] [id number] [place] [address] Oct, [facility] [address] [id number] [place] [address] Oct, [facility] [address] [id number] [place] [address] Oct, [facility] [address] [id number] [place] [address] Oct, [facility] [address] [id number] [place] [address] Oct, [facility] [address] [id number] [place] [address] September, [facility] [address] [id number] [place] [address] September, [facility] [address] [facility] [id number] [place] [address] September, [facility] [place] [facility] [address] [id number] [place] [address] September, [facility] [place] [facility] [address] [id number] [place] [address] September, [facility] [place] [facility] [address] [id number] [place] [address] September, [facility] [place] [facility] [address] [id number] [place] [address] September, [facility] [place] [facility] [address] [id number] [place] [address] September, [facility] [place] [facility] [address] [id number] [place] [address] September, [facility] [place] [facility] [address] [id number] [place] [address] Aug, [facility] [place] [facility] [address] [id number] [place] [address] Aug, [facility] [place] [facility] [address] [id number] [place] [address] Aug, [facility] [place] [facility] [address] [id number] [place] [address] Aug, [facility] [place] [facility] [address] [id number] [place] [address] Aug, [facility] [place] [facility] [address] [id number] [place] [address] Aug, [facility] [place] [facility] [address] [facility] [id number] [facility] [place] [address] Aug, [facility] [place] [facility] [address] [facility] [id number] [facility] [place] [address] Aug, [facility] [place] [facility] [address] [facility] [id number] [place] [address] Jul, [facility] [place] [facility] [address] [facility] [id number] [facility] [place] [address] Jul, [facility] [place] [facility] [address] [facility] [id number] [facility] [place] [address] Jul, [facility] [place] [facility] [address] [id number] [place] [address] 24 Jul, 2013 [facility] [place] [facility] [address] [id number] [place] [address] 24 Jul, 2013 [facility] [place] [facility] [address] [id number] [place] [address] Jul, [facility] [place] [facility] [address] [facility] [id number] [place] [address] Jul, [facility] [place] [facility] [address] [id number] [place] [address] 18 Jul, 2013 [facility] [place] [facility] [address] [id number] [place] [address] 18 Jul, 2013 [facility] [place] [facility] [address] [id number] [place] [address] 17 Jul, 2013 [facility] [place] [facility] [address] [facility] [id number] [place] [address] 17 Jul, 2013 [facility] [place] [facility] [address] [facility] [id number] [place] [address] 13 Jul, 2013 [facility] [place] [facility] [address] [facility] [id number] [place] [address] 13 Jul, 2013 [facility] [place] [facility] [address] [id number] [place] [address] 05 Jul, 2013 [facility] [place] [facility] [address] [id number] [place] [address] Jul, [facility] [place] [facility] [address] [id number] [place] [address] Jul, [facility] [place] [facility] [address] [id number] [place] [address] Jul, [facility] [place] [facility] [address] [id number] [place] [address] Jul, [facility] [place] [facility] [address] [id number] [place] [address] Jul, [facility] [place] [facility] [address] [id number] [place] [address] Jun, [facility] [place] [facility] [address] [id number] [place] [address] Jun, [facility] [place] [facility] [address] [id number] [place] [address] May, [facility] [place] [facility] [address] [id number] [place] [address] May, [facility] [place] [facility] [address] [id number] [place] [address] Apr, [facility] [place] [facility] [address] [id number] [place] [address] Apr, [facility] [place] [facility] [address] [id number] [place] [address] Apr, [facility] [place] [facility] [address] [id number] [place] [address] Apr, [facility] [place] [facility] [address] [id number] [place] [address] Apr, [facility] [place] [facility] [id number] [place] [address] Apr, [facility] [place] [facility] [address] [id number] [place] [address] Mar, [facility] [place] [facility] [id number] [place] [address] Mar, [facility] [place] [facility] [address] [id number] [place] [address] Mar, [facility] [place] [facility] [address] [id number] [place] [address] Mar, [facility] [place] [facility] [address] [id number] [place] [address] Jan, [facility] [place] [facility] [address] [id number] [place] [address] Jan, [facility] [place] [facility] [address] [facility] [id number] [place] [address] Jan, [facility] [place] [facility] [address] [id number] [place] [address] Dec, [facility] [place] [facility] [address] [id number] [place] [address] Dec, [facility] [place] [facility] [address] [id number] [place] [address] Dec, [facility] [place] [facility] [address] [id number] [place] [address] Dec, [facility] [place] [facility] [address] [id number] [place] [address] Nov, [facility] [place] [facility] [address] [id number] [place] [address] Nov, [facility] [place] [facility] [address] [id number] [place] [address] Nov, [facility] [place] [facility] [address] [id number] [place] [address] Oct, [facility] [place] [facility] [address] [id number] [place] [address] Oct, [facility] [place] [facility] [address] [id number] [place] [address] Oct, [facility] [place] [facility] [address] [id number] [place] [address] Oct, [facility] [place] [facility] [address] [id number] [place] [address] Oct, [facility] [place] [facility] [address] [id number] [facility] [place] [address] Oct, [facility] [place] [facility] [address] [id number] [facility] [place] [address] September, [facility] [place] [facility] [address] [id number] [facility] [place] [address] Jul, [facility] [place] [facility] [address] [id number] [facility] [place] [address] Jul, [facility] [place] [facility] [address] [id number] [facility] [place] [address] Jul, [facility] [place] [facility] [address] [id number] [place] [address] Jul, [facility] [place] [facility] [address] [id number] [place] [address] Jul, [facility] [place] [facility] [address] [id number] [place] [address] Jul, [facility] [place] [facility] [address] [id number] [place] [address] Jun, [facility] [place] [facility] [address] [id number] [place] [address] Apr, [facility] [place] [facility] [address] [id number] [place] [address] Apr, [facility] [place] [facility] [address] [id number] [place] [address] Jan, [facility] [place] [facility] [address] [id number] [place] [address] Dec, [facility] [place] [facility] [address] [id number] [place] [address] Nov, [facility] [place] [facility] [address] [id number] [place] [address] Oct, [facility] [place] [facility] [address] [id number] [place] [address] September, [facility] [place] [facility] [address] [id number] [place] [address] September, [facility] [address] [id number] [place] [address] Jul, [facility] [place] [facility] [address] [id number] [place] [address] Jul, [facility] [place] [facility] [address] [id number] [place] [address] Jul, [facility] [place] [facility] [address] [id number] [place] [address] Jul, [facility] [place] [facility] [address] [id number] [place] [address] Jul, [facility] [place] [facility] [address] [id number] [place] [address] Jul, [facility] [place] [facility] [address] [id number] [place] [address] Jul, [facility] [place] [facility] [address] [id number] [place] [address] Jul, [facility] [place] [facility] [address] [id number] [place] [address] 08 Jul, 2011 [facility] [place] [facility] [address] [id number] [place] [address] Jul, [facility] [place] [facility] [address] [id number] [place] [address] Jun, [facility] [place] [facility] [address] [id number] [place] [address] May, [facility] [place] [facility] [address] [id number] [place] [address] May, [facility] [place] [facility] [address] [id number] [place] [address] May, [facility] [place] [facility] [address] [id number] [place] [address] Apr, [facility] [place] [facility] [address] [id number] [place] [address] Apr, [facility] [address] [id number] [place] [address] Mar, [facility] [address] [id number] [place] [address] Mar, [facility] [address] [id number] [place] [address] Mar, [facility] [id number] [place] [address] Mar, [facility] [id number] [place] [address] Mar, [facility] [id number] [place] [address] September, [facility] [id number] [place] [address] Mar, [facility] [id number] [place] [address] Dec, [facility] [address] [id number] [place] [address] May, [facility] [id number] [place] [address] May, IMMUNIZATIONS No Known Immunizations SOCIAL HISTORY [...]
--- OUTSIDE RECORDS SUMMARY | 2019-10-01 11:03 | XMS REPORT ---
Author Author Samra BARCENAS Organization [facility] Address [address] [place] [address] Care Team Providers Care Licensed Plumber Name Role Phone CEDRICK BARCENAS Unavailable PROBLEMS Type Condition ICD9-CM Code [id number] Code Onset Dates Condition S tatus SNOMED Code Problem [facility] 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.891 Active 047798634 Problem Chronic pain syndrome G89.4 Active 215351525 Problem Hypothyroidism, unspecified E03.9 Ac tive 09147784 Problem Depression, unspecified depression type F32.9 Active 24832843 Problem Major depressive disorder, recurrent episode, moderate F33.1 Active 272982478 Problem Generalized anxiety disorder F41.1 A ctive 36548813 Problem Chronic tension-type headache, intractable G44.221 Active 073130664 Problem Major depressive disorder, recurrent, unspecified F33.9 Active 55735298 Problem Anxiety F41.9 Active 26802743 Problem Primary insomnia F51.01 Active 397 2004 Problem Mixed hyperlipidemia E78.2 Active 885427242 Problem Cervical spondylosis with radiculopathy M47.22 Active 410124227 Problem Chronic migraine G43.709 Active 377 80340 Problem Other chronic pain G89.29 Active 8 8840341 Problem Grief F43.21 Active [id number] ALLERGIES No Information ENCOUNTERS Encounter Location Date Diagnosis [facility] [id number] [place] [address] Jul, [facility] [address] [address] Jul, [facility] [address] [address] Jul, [facility] [id number] [place] [address] Jul, Generalized anxiety disorder F41.1 and M lopezor depressive disorder, recurrent episode, moderate F33.1 [place] [facility] [address] [address] 06 Jul, 2019 [place] [address] [id number] 04 Jul, 2019 Cervical spondylosis with radiculopathy M47.22 [place] [address] [address] Jun, [facility] [address] [facility] [id number] [address] [place] [address] Jun, Allergic urticaria L50.0 [place] [address] [address] 15 Jun, 2019 Cervical spondylosis with radiculopathy M47.22 [place] [address] [address] 14 Jun, 2019 Hypothyroidism, unspecified E03.9 [place] [address] [address] 14 Jun, 2019 [place] [address] [address] 13 Jun, 2019 Major depressive disorder, recurrent, un specified F33.9 ; Primary insomnia F51.01 and Strain of lumbar region, 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 S39.012A [place] [address] [address] 06 Jun, 2019 Cervical spondylosis with radiculopathy M47.22 [place] [address] [address] 02 Jun, 2019 Back strain, subsequent encounter S39.01 2D [place] [address] [address] 02 Jun, 2019 [place] [address] [address] May, Cervical spondylosis with radiculopathy M47.22 [place] [address] [address] 14 Apr, 2019 [place] [address] [address] Apr, Cervical spondylosis with radiculopathy M47.22 [place] [address] [address] Mar, Cervical spondylosis with radiculopathy M47.22 [place] [address] [address] Jan, Generalized anxiety disorder F41.1 and M ajor depressive disorder, recurrent, unspecified F33.9 [place] [address] [address] 16 Jan, 2019 Cervical spondylosis with radiculopathy M47.22 [place] [address] [address] Jan, [place] [address] [address] 09 Jan, 2019 Major depressive disorder, recurrent epi sode, moderate F33.1 and Generalized anxiety disorder F41.1 [place] [address] [address] Dec, [place] [address] [address] Dec, Cervical spondylosis with radiculopathy M47.22 [place] [address] [address] Nov, Cervical spondylosis with radiculopathy M47.22 [place] [address] [address] Nov, Hypothyroidism, unspecified E03.9 [place] [address] [address] Nov, Cervical spondylosis with radiculopathy M47.22 [place] [address] [address] Oct, Cervical spondylosis with radiculopathy M47.22 [facility] [id number] [place] [address] Oct, Grief F43.[address] [place] [address] Oct, [place] [address] [address] Oct, Major depressive disorder, recurrent epi sode, moderate F33.1 and Chronic tension-type headache, intractable G44.221 [place] [address] [address] Oct, [place] [address] [address] Oct, Breast cancer screening by mammogram Z12 .31 [place] [address] [address] September, Cervical spondylosis with radiculopathy M47.22 [place] [address] [address] September, Cervical spondylosis with radiculopathy M47.22 [place] [address] [address] Aug, Chronic pain syndrome G89.4 ; Cervicalgi a M54.2 ; Chronic nonintractable headache, unspecified headache type R51 and Alopecia L65.9 [place] [id number] [place] [address] Jul, Cervical spondylosis with radiculopathy M47.22 [place] [address] [address] Jul, [place] [address] [address] Jul, Cervical spondylosis with radiculopathy M47.22 [place] [address] [address] Jul, [place] [address] [address] Jul, Cervical spondylosis with radiculopathy M47.22 [place] [address] [address] Jul, Cervical spondylosis with radiculopathy M47.22 [place] [address] [address] Jul, [place] [address] [address] Jun, Major depressive disorder, recurrent epi sode, moderate F33.1 ; Low back pain M54.5 and Other chronic pain G89.29 [place] [address] [address] Jun, [place] [address] [address] Jun, Bronchitis J40 ; Mixed hyperlipidemia E7 8.2 ; Cervical spondylosis with radiculopathy M47.22 ; 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 [id number] [address] [place] [address] May, Acute nasopharyngitis J00 an d Wheezing R06.2 [place] [address] [address] May, [place] [address] [address] Apr, Cervical spondylosis with radiculopathy M47.22 [place] [address] [address] Mar, Mixed hyperlipidemia E78.2 and Family hi story of stroke Z82.3 [place] [address] [address] 18 Mar, 2018 Cervical spondylosis with radiculopathy M47.22 [place] [address] [address] 17 Mar, 2018 Hypothyroidism, unspecified E03.9 ; Cerv icalgia M54.2 and Chronic migraine G43.709 [place] [address] [address] 15 Mar, 2018 Cervical spondylosis with radiculopathy M47.22 [place] [address] [address] 08 Mar, 2018 Chronic migraine G43.709 ; Cervicalgia M 54.2 and Family history of stroke Z82.3 [place] [address] [address] 14 Jan, 2018 Cervical spondylosis with radiculopathy M47.22 [place] [address] [address] 05 Jan, 2018 Reactive airway disease that is not asth ma R09.89 [facility] [address] [facility] [id number] [address] [place] [address] Dec, Allergic dermatitis due to o ther chemical product L23.5 [place] [address] [address] Dec, Cervical spondylosis with radiculopathy M47.22 and Depression, unspecified depression type F32.9 [place] [address] [address] Oct, [place] [address] [address] Oct, [place] [address] [address] Oct, [place] [address] [address] September, Chronic pain syndrome G89.4 [place] [address] [address] September, Depression, unspecified depression type F32.9 and Cervicalgia M54.2 [place] [address] [address] September, Chronic pain syndrome G89.4 [place] [address] [address] Aug, Red stool R19.5 [place] [address] [address] Aug, Depression, unspecified depression type F32.9 ; Chronic pain syndrome G89.4 ; Chronic tension-type headache, intractable G44.221 ; Red stool R19.5 ; Hypothyroidism, unspecified E03.9 and Mixed hyperlipidemia E78.2 [place] [address] [address] Jul, Major depressive disorder, recurrent epi sode, moderate F33.1 [place] [address] [address] Jul, [place] [address] [address] Jul, Hypothyroidism, unspecified E03.9 [place] [address] [address] Jul, Hypothyroidism, unspecified E03.9 [place] [address] [address] Jul, Mixed hyperlipidemia E78.2 [facility] [address] [address] Jul, Mixed hyperlipidemia E78.2 [facility] [address] [facility] [id number] [address] [place] [address] Jul, Bronchitis J40 ; Cough R05 a nd Wheezing R06.2 [place] [address] [address] Jul, Major depressive disorder, recurrent epi sode, moderate F33.1 and Generalized anxiety disorder F41.1 [place] [address] [address] Jul, [place] [address] [address] Jul, Major depressive disorder, recurrent epi sode, moderate F33.1 and Generalized anxiety disorder F41.1 [place] [address] [address] Jul, Generalized anxiety disorder F41.1 and M ajor depressive disorder, recurrent episode, moderate F33.1 [place] [address] [address] Jul, Mixed hyperlipidemia E78.2 [address] [address] [address] Jun, Depression, unspecified depression type F32.9 ; Cervicalgia M54.2 ; Trigger point M79.1 ; Hypothyroidism, unspecified E03.9 ; Screening, lipid Z13.220 and Mixed hyperlipidemia E78.2 [address] [address] [address] Jun, [place] [address] [address] May, [place] [address] [address] Apr, Acute bronchitis due to other specified organisms J20.8 and Tobacco abuse counseling Z71.6 [facility] [address] [address] Mar, Depression, unspecified depression type F32.9 [facility] [address] [address] Jan, Chronic pain syndrome G89.4 [facility] [address] [address] Nov, Anxiety F41.9 ; Depression, unspecified depression type F32.9 and Chronic pain syndrome G89.4 [address] [address] [address] Oct, Anxiety F41.9 and Hypothyroidism, unspec ified E03.9 [facility] [address] [facility] [id number] [address] [place] [address] Oct, Left foot pain M79.672 and C ontusion of left foot, 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 S90.32XA [address] [address] [address] Oct, [address] [address] [address] September, Cervicalgia M54.2 [address] [address] [address] September, [address] [address] [address] Aug, Cervicalgia M54.2 [address] [address] [address] Aug, Cervicalgia M54.2 and Left arm numbness R20.0 [address] [address] [address] Aug, [place] [address] [address] Aug, [address] [address] [address] Jul, [facility] [address] [address] Jul, [facility] [address] [address] Jul, [facility] [address] [address] Jul, Acute midline low back pain without scia zak M54.5 [facility] [address] [address] Jun, Acute midline low back pain without scia zak M54.5 [place] [address] [address] Jun, Chronic pain syndrome G89.4 and Muscle s pasm M62.838 [address] [address] [address] Jun, [place] [address] [address] Jun, Acute midline low back pain without scia zak M54.5 [address] [address] [address] Jun, [place] [address] [address] May, [address] [address] [address] May, Hypothyroidism, unspecified E03.9 ; 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 ; Hyperglycemia R73.9 ; Encounter for immunization Z23 and Mixed hyperlipidemia E78.2 [address] [address] [address] Apr, Fatigue 780.79 [facility] [address] [address] Apr, Chronic pain syndrome G89.4 [address] [address] [address] Mar, [facility] [address] [address] Mar, Chronic pain syndrome G89.4 [facility] [address] [address] Jan, [facility] [address] [address] Dec, [facility] [address] [address] Dec, Chronic pain syndrome G89.4 [address] [address] [address] Dec, Trigger point M79.2 [address] [address] [address] Nov, Chronic pain syndrome G89.4 [address] [address] [address] Oct, Chronic pain syndrome G89.4 [address] [address] [address] Oct, Irritant contact dermatitis due to deter gent L24.0 [address] [address] [address] September, Hypothyroidism, unspecified E03.9 and De pression, unspecified depression type F32.9 [address] [address] [address] September, Chronic pain syndrome G89.4 [address] [address] [address] Aug, [address] [address] [address] Aug, Trigger point M79.2 [facility] [address] [address] Jul, Chronic pain syndrome G89.4 and 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 [facility] [id number] [place] [address] Jul, Chronic pain syndrome G89.4 and 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 [facility] [id number] [place] [address] Jul, [facility] [address] [address] Jul, [facility] [address] [address] Jun, [facility] [address] [address] May, [facility] [address] [address] May, [facility] [address] [address] May, [facility] [address] [address] May, Pneumonia, organism unspecified, unspeci fied laterality, unspecified part of lung J18.9 [facility] [address] [address] May, Pneumonia, organism unspecified, unspeci fied laterality, unspecified part of lung J18.9 [facility] [address] [address] Apr, [facility] [address] [address] Apr, [facility] [address] [address] Apr, [facility] [address] [address] Apr, [facility] [address] [address] Apr, [facility] [address] [address] Apr, Epigastric pain R10.13 [address] [address] [address] Mar, Tinea pedis B35.3 and Contact dermatitis and eczema due to detergents L24.0 [facility] [address] [address] Mar, [facility] [address] [address] Jan, [facility] [address] [address] Jan, [facility] [address] [address] Jan, [address] [address] [address] Dec, [facility] [address] [address] Nov, [facility] [address] [address] Nov, Fatigue 780.79 [address] [address] [address] Nov, [address] [address] [address] Nov, Unspecified myalgia and myositis 729.1 [address] [address] [address] Nov, Hypercalcemia 275.42 [facility] [address] [address] Nov, Fatigue 780.79 ; Bradycardia 427.89 ; Ch ronic pain 338.29 and Family history of diabetes mellitus V18.0 [facility] [address] [address] Nov, Fatigue 780.79 ; Chronic pain 338.29 ; F amily history of diabetes mellitus V18.0 ; Bradycardia 427.89 ; Hypothyroid 244.9 and Anxiety 300.00 [facility] [id number] [place] [address] Oct, [facility] [id number] [place] [address] September, [facility] [id number] [place] [address] Aug, [facility] [address] [address] Aug, [facility] [id number] [place] [address] Aug, [facility] [id number] [place] [address] Jul, [facility] [id number] [place] [address] Jul, [facility] [id number] [place] [address] Jul, [facility] [id number] [place] [address] Jul, [facility] [id number] [place] [address] Jun, [facility] [id number] [place] [address] Jun, [facility] [id number] [place] [address] Jun, [facility] [id number] [place] [address] Jun, [facility] [address] [address] Jun, [facility] [id number] [place] [address] Jun, [facility] [address] [address] May, [facility] [address] [id number] [place] [address] May, [facility] [address] [id number] [place] [address] May, [facility] [address] [id number] [place] [address] May, [facility] [address] [id number] [place] [address] May, [facility] [address] [id number] [place] [address] May, [facility] [address] [id number] [place] [address] May, [facility] [address] [id number] [place] [address] May, [facility] [address] [id number] [place] [address] May, [facility] [address] [id number] [place] [address] May, [facility] [address] [id number] [place] [address] Apr, [facility] [address] [id number] [place] [address] Apr, [facility] [address] [id number] [place] [address] Apr, [facility] [address] [id number] [place] [address] Apr, [facility] [address] [id number] [place] [address] Apr, [facility] [address] [id number] [place] [address] Apr, [facility] [address] [id number] [place] [address] 18 Apr, 2014 [facility] [address] [id number] [place] [address] 18 Apr, 2014 [facility] [address] [id number] [place] [address] 17 Apr, 2014 [facility] [address] [id number] [place] [address] 17 Apr, 2014 [facility] [address] [id number] [place] [address] 13 Apr, 2014 [facility] [address] [id number] [place] [address] 13 Apr, 2014 [facility] [address] [id number] [place] [address] 11 Apr, 2014 [facility] [address] [id number] [place] [address] 10 Apr, 2014 [facility] [address] [id number] [place] [address] 10 Apr, 2014 [facility] [address] [id number] [place] [address] 16 Mar, 2014 [facility] [address] [id number] [place] [address] 16 Mar, 2014 [facility] [address] [id number] [place] [address] 16 Mar, 2014 [facility] [address] [id number] [place] [address] 16 Mar, 2014 [facility] [address] [id number] [place] [address] 19 Jan, 2013 [facility] [address] [id number] [place] [address] 19 Jan, 2013 [facility] [address] [id number] [place] [address] 18 Jan, 2013 [facility] [address] [id number] [place] [address] 18 Jan, 2013 [facility] [address] [id number] [place] [address] 02 Jan, 2013 [facility] [address] [id number] [facility] [place] [address] Jan, [facility] [address] [id number] [place] [address] Dec, [facility] [address] [facility] [id number] [place] [address] Dec, [facility] [address] [facility] [id number] [place] [address] Dec, [facility] [address] [facility] [id number] [place] [address] Dec, [facility] [address] [facility] [id number] [place] [address] Nov, [facility] [address] [id number] [place] [address] Nov, [facility] [address] [id number] [place] [address] Nov, [facility] [address] [id number] [place] [address] Nov, [facility] [address] [facility] [id number] [place] [address] Oct, [facility] [address] [id number] [place] [address] Oct, [facility] [address] [id number] [place] [address] Oct, [facility] [address] [id number] [place] [address] Oct, [facility] [address] [facility] [id number] [place] [address] Oct, [facility] [address] [id number] [place] [address] Oct, [facility] [address] [id number] [place] [address] Oct, [facility] [address] [id number] [place] [address] Oct, [facility] [address] [id number] [place] [address] Oct, [facility] [address] [id number] [place] [address] Oct, [facility] [address] [id number] [place] [address] September, [facility] [address] [id number] [place] [address] September, [facility] [address] [id number] [place] [address] September, [facility] [address] [id number] [place] [address] September, [facility] [address] [id number] [place] [address] September, [facility] [address] [id number] [place] [address] September, [facility] [address] [id number] [place] [address] September, [facility] [address] [id number] [place] [address] September, [facility] [address] [id number] [place] [address] September, [facility] [address] [id number] [place] [address] Aug, [facility] [address] [id number] [place] [address] Aug, [facility] [facility] [address] [id number] [place] [address] Aug, [facility] [facility] [address] [id number] [place] [address] Aug, [facility] [place] [facility] [address] [id number] [place] [address] Aug, [facility] [place] [facility] [address] [id number] [place] [address] Aug, [facility] [place] [facility] [address] [facility] [id number] [place] [address] Aug, [facility] [place] [facility] [address] [facility] [id number] [place] [address] Aug, [facility] [place] [facility] [address] [id number] [facility] [place] [address] Jul, [facility] [place] [facility] [address] [id number] [place] [address] Jul, [facility] [facility] [address] [facility] [id number] [place] [address] Jul, [facility] [place] [facility] [address] [id number] [place] [address] 24 Jul, 2013 [facility] [place] [facility] [address] [id number] [facility] [place] [address] 24 Jul, 2013 [facility] [facility] [address] [id number] [facility] [place] [address] Jul, [facility] [place] [facility] [address] [id number] [facility] [place] [address] Jul, [facility] [place] [facility] [address] [id number] [place] [address] 18 Jul, 2013 [facility] [place] [facility] [address] [id number] [place] [address] 18 Jul, 2013 [facility] [facility] [address] [id number] [place] [address] 17 Jul, 2013 [facility] [facility] [address] [id number] [facility] [place] [address] 17 Jul, 2013 [facility] [facility] [address] [id number] [place] [address] 13 Jul, 2013 [facility] [facility] [address] [id number] [place] [address] 13 Jul, 2013 [facility] [facility] [address] [id number] [place] [address] 05 Jul, 2013 [facility] [facility] [address] [id number] [place] [address] Jul, [facility] [address] [id number] [place] [address] Jul, [facility] [address] [id number] [place] [address] Jul, [facility] [facility] [address] [id number] [place] [address] Jul, [facility] [facility] [address] [id number] [place] [address] Jul, [facility] [facility] [address] [id number] [place] [address] Jun, [facility] [address] [id number] [place] [address] Jun, [facility] [facility] [address] [id number] [place] [address] May, [facility] [facility] [address] [id number] [place] [address] May, [facility] [address] [id number] [place] [address] Apr, [facility] [address] [id number] [place] [address] Apr, [facility] [address] [id number] [place] [address] Apr, [facility] [facility] [address] [id number] [place] [address] Apr, [facility] [address] [id number] [place] [address] Apr, [facility] [address] [id number] [place] [address] Apr, [facility] [facility] [address] [id number] [place] [address] Mar, [facility] [address] [id number] [place] [address] Mar, [facility] [address] [id number] [facility] [place] [address] Mar, [facility] [address] [facility] [id number] [facility] [place] [address] Mar, [facility] [address] [facility] [id number] [place] [address] Jan, [facility] [address] [id number] [facility] [place] [address] Jan, [facility] [address] [facility] [id number] [facility] [place] [address] Jan, [facility] [address] [id number] [facility] [place] [address] Dec, [facility] [address] [id number] [place] [address] Dec, [facility] [address] [id number] [place] [address] Dec, [facility] [address] [id number] [facility] [place] [address] Dec, [facility] [address] [id number] [place] [address] Nov, [facility] [address] [id number] [place] [address] Nov, [facility] [address] [id number] [place] [address] Nov, [facility] [address] [facility] [id number] [facility] [place] [address] Oct, [facility] [address] [facility] [id number] [place] [address] Oct, [facility] [address] [id number] [place] [address] Oct, [facility] [address] [id number] [place] [address] Oct, [facility] [address] [id number] [place] [address] 04 Oct, 2012 [facility] [address] [facility] [id number] [facility] [place] [address] Oct, [facility] [address] [id number] [place] [address] September, [facility] [address] [id number] [place] [address] Jul, [facility] [address] [id number] [place] [address] Jul, [facility] [address] [id number] [place] [address] Jul, [facility] [address] [id number] [place] [address] Jul, [facility] [address] [id number] [place] [address] Jul, [facility] [address] [id number] [place] [address] Jul, [facility] [address] [id number] [place] [address] Jun, [facility] [address] [id number] [place] [address] Apr, [facility] [address] [id number] [place] [address] Apr, [facility] [address] [id number] [place] [address] Jan, [facility] [address] [id number] [place] [address] Dec, [facility] [address] [id number] [place] [address] Nov, [facility] [address] [id number] [place] [address] Oct, [facility] [address] [id number] [place] [address] September, [facility] [address] [id number] [place] [address] September, [facility] [address] [id number] [place] [address] Jul, [facility] [address] [id number] [place] [address] Jul, [facility] [address] [id number] [place] [address] Jul, [facility] [address] [id number] [place] [address] Jul, [facility] [address] [id number] [place] [address] Jul, [facility] [address] [id number] [place] [address] 17 Jul, 2011 [facility] [id number] [place] [address] Jul, [facility] [address] [id number] [place] [address] Jul, [facility] [address] [id number] [place] [address] 08 Jul, 2011 [facility] [address] [id number] [place] [address] 07 Jul, [address] [facility] [address] [id number] [place] [address] Jun, [facility] [address] [id number] [place] [address] May, [facility] [address] [id number] [place] [address] May, [facility] [address] [id number] [place] [address] May, [facility] [address] [id number] [place] [address] Apr, [facility] [address] [id number] [place] [address] Apr, [facility] [address] [id number] [place] [address] Mar, [facility] [address] [id number] [place] [address] Mar, [facility] [address] [id number] [place] [address] Mar, [facility] [id number] [place] [address] Mar, [facility] [address] [id number] [place] [address] Mar, [facility] [address] [id number] [place] [address] September, [facility] [address] [id number] [place] [address] Mar, [facility] [address] [id number] [place] [address] Dec, [facility] [address] [id number] [place] [address] May, [facility] [address] [id number] [place] [address] May, IMMUNIZATIONS No Known Immunizations SOCIAL HISTORY Never Assessed REASON FOR VISIT PLAN OF CARE VITAL SIGNS Height 63 in 2013-08-16 Weight 180 lbs 2013-08-16 Temperature 97.9 degrees Fahrenheit 2013-08-16 Heart Rate 74 bpm 2013-08-16 Respiratory Rate 22 2013-08-16 Blood pressure systolic 119 mmHg 2013-08-16 Blood pressure diastolic 70 mmHg 2013-08-16 MEDICATIONS Unknown Medications RESULTS No Results PROCEDURES Procedure Date Ordered Result Body Site COMPLETE CBC W/AUTO DIFF WBC August 16, 2013 VENIPUNCT, ROUTINE* August 16, 2013 INSTRUCTIONS MEDICATIONS ADMINISTERED No Known Medications [...]
--- OUTSIDE RECORDS SUMMARY | 2019-10-01 11:04 | XMS REPORT ---
Author Author Samra BARCENAS Organization [facility] Address [address] [place] [address] Care Team Providers Care Utility Repairer Name Role Phone CEDRICK BARCENAS Unavailable PROBLEMS Type Condition ICD9-CM Code FBF13-PT Code Onset Dates Condition S tatus SNOMED Code Problem intermediate 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.891 Active 603177254 Problem Chronic pain syndrome G89.4 Active 537968370 Problem Hypothyroidism, unspecified E03.9 Ac tive 14545454 Problem Depression, unspecified depression type F32.9 Active 68858904 Problem Major depressive disorder, recurrent episode, moderate F33.1 Active 397364061 Problem Generalized anxiety disorder F41.1 A ctive 28047957 Problem Chronic tension-type headache, intractable G44.221 Active 531831996 Problem Major depressive disorder, recurrent, unspecified F33.9 Active 81026159 Problem Anxiety F41.9 Active 81241853 Problem Primary insomnia F51.01 Active 397 2004 Problem Mixed hyperlipidemia E78.2 Active 013866472 Problem Cervical spondylosis with radiculopathy M47.22 Active 504338070 Problem Chronic migraine G43.709 Active 377 22972 Problem Other chronic pain G89.29 Active 8 3707200 Problem Grief F43.21 Active 538595737 ALLERGIES No Information ENCOUNTERS Encounter Location Date Diagnosis [facility] [id number] [place] [address] Jul, [facility] [address] [address] Jul, [facility] [address] [address] Jul, [facility] [id number] [place] [address] Jul, Generalized anxiety disorder F41.1 and M lopezor depressive disorder, recurrent episode, moderate F33.1 [place] [address] [address] 06 Jul, 2019 [place] [address] [id number] 04 Jul, 2019 Cervical spondylosis with radiculopathy M47.22 [place] [address] [address] Jun, [facility] [address] [facility] [id number] [address] [place] [address] Jun, Allergic urticaria L50.0 [place] [address] [address] 15 Jun, 2019 Cervical spondylosis with radiculopathy M47.22 [place] [address] [address] 14 Jun, 2019 Hypothyroidism, unspecified E03.9 [place] [address] [address] 14 Jun, 2019 [place] [address] [address] 13 Jun, 2019 Major depressive disorder, recurrent, un specified F33.9 ; Primary insomnia F51.01 and Strain of lumbar region, 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 S39.012A [place] [address] [address] 06 Jun, 2019 Cervical spondylosis with radiculopathy M47.22 [place] [address] [address] 02 Jun, 2019 Back strain, subsequent encounter S39.01 2D [place] [address] [address] 02 Jun, 2019 [place] [address] [address] May, Cervical spondylosis with radiculopathy M47.22 [place] [address] [address] 14 Apr, 2019 [place] [address] [address] Apr, Cervical spondylosis with radiculopathy M47.22 [place] [address] [address] Mar, Cervical spondylosis with radiculopathy M47.22 [place] [address] [address] Jan, Generalized anxiety disorder F41.1 and M ajor depressive disorder, recurrent, unspecified F33.9 [place] [address] [address] 16 Jan, 2019 Cervical spondylosis with radiculopathy M47.22 [place] [address] [address] Jan, [place] [address] [address] 09 Jan, 2019 Major depressive disorder, recurrent epi sode, moderate F33.1 and Generalized anxiety disorder F41.1 [place] [address] [address] Dec, [place] [address] [address] Dec, Cervical spondylosis with radiculopathy M47.22 [place] [address] [address] Nov, Cervical spondylosis with radiculopathy M47.22 [place] [address] [address] Nov, Hypothyroidism, unspecified E03.9 [place] [address] [address] Nov, Cervical spondylosis with radiculopathy M47.22 [place] [address] [address] Oct, Cervical spondylosis with radiculopathy M47.22 [place] [id number] [place] [address] Oct, Grief F43.[address] [place] [address] Oct, [place] [address] [address] Oct, Major depressive disorder, recurrent epi sode, moderate F33.1 and Chronic tension-type headache, intractable G44.221 [place] [address] [address] Oct, [place] [address] [address] Oct, Breast cancer screening by mammogram Z12 .31 [place] [address] [address] September, Cervical spondylosis with radiculopathy M47.22 [place] [address] [address] September, Cervical spondylosis with radiculopathy M47.22 [place] [address] [address] Aug, Chronic pain syndrome G89.4 ; Cervicalgi a M54.2 ; Chronic nonintractable headache, unspecified headache type R51 and Alopecia L65.9 [place] [id number] [place] [address] Jul, Cervical spondylosis with radiculopathy M47.22 [place] [address] [address] Jul, [place] [address] [address] Jul, Cervical spondylosis with radiculopathy M47.22 [place] [address] [address] Jul, [place] [address] [address] Jul, Cervical spondylosis with radiculopathy M47.22 [place] [address] [address] Jul, Cervical spondylosis with radiculopathy M47.22 [place] [address] [address] Jul, [place] [address] [address] Jun, Major depressive disorder, recurrent epi sode, moderate F33.1 ; Low back pain M54.5 and Other chronic pain G89.29 [place] [address] [address] Jun, [place] [address] [address] Jun, Bronchitis J40 ; Mixed hyperlipidemia E7 8.2 ; Cervical spondylosis with radiculopathy M47.22 ; 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 ; Major depressive disorder, recurrent episode, moderate F33.1 ; Hypothyroidism, unspecified E03.9 ; Low back pain M54.5 ; Other chronic pain G89.29 and Chronic tension-type headache, intractable G44.221 [place] [address] [address] Jun, Cervical spondylosis with radiculopathy M47.22 [place] [address] [address] May, [place] [address] [address] May, Cervical spondylosis with radiculopathy M47.22 [facility] [address] [facility] [id number] [address] [place] [address] May, Acute nasopharyngitis J00 an d Wheezing R06.2 [place] [address] [address] May, [place] [address] [address] Apr, Cervical spondylosis with radiculopathy M47.22 [place] [address] [address] Mar, Mixed hyperlipidemia E78.2 and Family hi story of stroke Z82.3 [place] [address] [address] 18 Mar, 2018 Cervical spondylosis with radiculopathy M47.22 [place] [address] [address] 17 Mar, 2018 Hypothyroidism, unspecified E03.9 ; Cerv icalgia M54.2 and Chronic migraine G43.709 [place] [address] [address] 15 Mar, 2018 Cervical spondylosis with radiculopathy M47.22 [place] [address] [address] 08 Mar, 2018 Chronic migraine G43.709 ; Cervicalgia M 54.2 and Family history of stroke Z82.3 [place] [address] [address] 14 Jan, 2018 Cervical spondylosis with radiculopathy M47.22 [place] [address] [address] 05 Jan, 2018 Reactive airway disease that is not asth ma R09.89 [facility] [address] [facility] [id number] [address] [place] [address] Dec, Allergic dermatitis due to o ther chemical product L23.5 [place] [address] [address] Dec, Cervical spondylosis with radiculopathy M47.22 and Depression, unspecified depression type F32.9 [place] [address] [address] Oct, [place] [address] [address] Oct, [place] [address] [address] Oct, [place] [address] [address] September, Chronic pain syndrome G89.4 [place] [address] [address] September, Depression, unspecified depression type F32.9 and Cervicalgia M54.2 [place] [address] [address] September, Chronic pain syndrome G89.4 [place] [address] [address] Aug, Red stool R19.5 [place] [address] [address] Aug, Depression, unspecified depression type F32.9 ; Chronic pain syndrome G89.4 ; Chronic tension-type headache, intractable G44.221 ; Red stool R19.5 ; Hypothyroidism, unspecified E03.9 and Mixed hyperlipidemia E78.2 [place] [address] [address] Jul, Major depressive disorder, recurrent epi sode, moderate F33.1 [place] [address] [address] Jul, [place] [address] [address] Jul, Hypothyroidism, unspecified E03.9 [place] [address] [address] Jul, Hypothyroidism, unspecified E03.9 [place] [address] [address] Jul, Mixed hyperlipidemia E78.2 [facility] [address] [address] Jul, Mixed hyperlipidemia E78.2 [facility] [address] [facility] [id number] [address] [place] [address] Jul, Bronchitis J40 ; Cough R05 a nd Wheezing R06.2 [place] [address] [address] Jul, Major depressive disorder, recurrent epi sode, moderate F33.1 and Generalized anxiety disorder F41.1 [place] [address] [address] Jul, [place] [address] [address] Jul, Major depressive disorder, recurrent epi sode, moderate F33.1 and Generalized anxiety disorder F41.1 [place] [address] [address] Jul, Generalized anxiety disorder F41.1 and M ajor depressive disorder, recurrent episode, moderate F33.1 [address] [address] [address] Jul, Mixed hyperlipidemia E78.2 [place] [address] [address] Jun, Depression, unspecified depression type F32.9 ; Cervicalgia M54.2 ; Trigger point M79.1 ; Hypothyroidism, unspecified E03.9 ; Screening, lipid Z13.220 and Mixed hyperlipidemia E78.2 [place] [address] [address] Jun, [place] [address] [address] May, [place] [address] [address] Apr, Acute bronchitis due to other specified organisms J20.8 and Tobacco abuse counseling Z71.6 [facility] [address] [address] Mar, Depression, unspecified depression type F32.9 [facility] [address] [address] Jan, Chronic pain syndrome G89.4 [facility] [address] [address] Nov, Anxiety F41.9 ; Depression, unspecified depression type F32.9 and Chronic pain syndrome G89.4 [address] [place] [address] [address] Oct, Anxiety F41.9 and Hypothyroidism, unspec ified E03.9 [facility] [address] [facility] [id number] [address] [place] [address] Oct, Left foot pain M79.672 and C ontusion of left foot, 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 S90.32XA [address] [place] [address] [address] Oct, [address] [address] [address] September, Cervicalgia M54.2 [address] [address] [address] September, [address] [address] [address] Aug, Cervicalgia M54.2 [address] [place] [address] Aug, Cervicalgia M54.2 and Left arm numbness R20.0 [place] [address] [address] Aug, [address] [address] [address] Aug, [place] [address] [address] Jul, [facility] [address] [address] Jul, [facility] [address] [address] Jul, [facility] [address] [address] Jul, Acute midline low back pain without scia zak M54.5 [facility] [address] [address] Jun, Acute midline low back pain without scia zak M54.5 [address] [place] [address] Jun, Chronic pain syndrome G89.4 and Muscle s pasm M62.838 [address] [address] [address] Jun, [place] [address] [address] Jun, Acute midline low back pain without scia zak M54.5 [address] [address] [address] Jun, [address] [address] May, [address] [address] [address] May, Hypothyroidism, unspecified E03.9 ; Peanut Separator radha pain syndrome G89.4 ; Hyperglycemia R73.9 ; Encounter for immunization Z23 and Mixed hyperlipidemia E78.2 [place] [address] [address] Apr, Fatigue 780.79 [facility] [address] [address] Apr, Chronic pain syndrome G89.4 [address] [address] [address] Mar, [facility] [address] [address] Mar, Chronic pain syndrome G89.4 [facility] [address] [address] Jan, [facility] [address] [address] Dec, [facility] [address] [address] Dec, Chronic pain syndrome G89.4 [address] [place] [address] Dec, Trigger point M79.2 [address] [address] [address] Nov, Chronic pain syndrome G89.4 [address] [address] [address] Oct, Chronic pain syndrome G89.4 [address] [address] [address] Oct, Irritant contact dermatitis due to deter gent L24.0 [address] [address] [address] September, Hypothyroidism, unspecified E03.9 and De pression, unspecified depression type F32.9 [place] [address] [address] September, Chronic pain syndrome G89.4 [address] [address] [address] Aug, [place] [address] [address] Aug, Trigger point M79.2 [facility] [address] [address] Jul, Chronic pain syndrome G89.4 and 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 [facility] [id number] [place] [address] Jul, Chronic pain syndrome G89.4 and 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 [facility] [id number] [place] [address] Jul, [facility] [address] [address] Jul, [facility] [address] [address] Jun, [facility] [address] [address] May, [facility] [address] [address] May, [facility] [address] [address] May, [facility] [address] [address] May, Pneumonia, organism unspecified, unspeci fied laterality, unspecified part of lung J18.9 [facility] [address] [address] May, Pneumonia, organism unspecified, unspeci fied laterality, unspecified part of lung J18.9 [facility] [address] [address] Apr, [facility] [address] [address] Apr, [facility] [address] [address] Apr, [facility] [address] [address] Apr, [facility] [address] [address] Apr, [facility] [address] [address] Apr, Epigastric pain R10.13 [address] [address] [address] Mar, Tinea pedis B35.3 and Contact dermatitis and eczema due to detergents L24.0 [facility] [address] [address] Mar, [facility] [address] [address] Jan, [facility] [address] [address] Jan, [facility] [address] [address] Jan, [address] [address] [address] Dec, [facility] [address] [address] Nov, [facility] [address] [address] Nov, Fatigue 780.79 [address] [address] [address] Nov, [address] [address] [address] Nov, Unspecified myalgia and myositis 729.1 [address] [address] [address] Nov, Hypercalcemia 275.42 [facility] [address] [address] Nov, Fatigue 780.79 ; Bradycardia 427.89 ; Ch ronic pain 338.29 and Family history of diabetes mellitus V18.0 [facility] [address] [address] Nov, Fatigue 780.79 ; Chronic pain 338.29 ; F amily history of diabetes mellitus V18.0 ; Bradycardia 427.89 ; Hypothyroid 244.9 and Anxiety 300.00 [facility] [id number] [place] [address] Oct, [facility] [id number] [place] [address] September, [facility] [id number] [place] [address] Aug, [facility] [address] [address] Aug, [facility] [id number] [place] [address] Aug, [facility] [id number] [place] [address] Jul, [facility] [id number] [place] [address] Jul, [facility] [id number] [place] [address] Jul, [facility] [id number] [place] [address] Jul, [facility] [id number] [place] [address] Jun, [facility] [id number] [place] [address] Jun, [facility] [id number] [place] [address] Jun, [facility] [id number] [place] [address] Jun, [facility] [address] [address] Jun, [facility] [id number] [place] [address] Jun, [facility] [address] [address] May, [facility] [address] [id number] [place] [address] May, [facility] [address] [id number] [place] [address] May, [facility] [address] [id number] [place] [address] May, [facility] [address] [id number] [place] [address] May, [facility] [address] [id number] [place] [address] May, [facility] [address] [id number] [place] [address] May, [facility] [address] [id number] [place] [address] May, [facility] [address] [id number] [place] [address] May, [facility] [address] [id number] [place] [address] May, [facility] [address] [id number] [place] [address] Apr, [facility] [address] [id number] [place] [address] Apr, [facility] [address] [id number] [place] [address] Apr, [facility] [address] [id number] [place] [address] Apr, [facility] [address] [id number] [place] [address] Apr, [facility] [address] [id number] [place] [address] Apr, [facility] [address] [id number] [place] [address] 18 Apr, 2014 [facility] [address] [id number] [place] [address] 18 Apr, 2014 [facility] [address] [id number] [place] [address] 17 Apr, 2014 [facility] [address] [id number] [place] [address] 17 Apr, 2014 [facility] [address] [id number] [place] [address] 13 Apr, 2014 [facility] [address] [id number] [place] [address] 13 Apr, 2014 [facility] [address] [id number] [place] [address] 11 Apr, 2014 [facility] [address] [id number] [place] [address] 10 Apr, 2014 [facility] [address] [id number] [place] [address] 10 Apr, 2014 [facility] [address] [id number] [place] [address] 16 Mar, 2014 [facility] [address] [id number] [place] [address] 16 Mar, 2014 [facility] [address] [id number] [place] [address] 16 Mar, 2014 [facility] [address] [id number] [place] [address] 16 Mar, 2014 [facility] [address] [id number] [place] [address] 19 Jan, 2013 [facility] [address] [id number] [place] [address] 19 Jan, 2013 [facility] [address] [id number] [place] [address] 18 Jan, 2013 [facility] [address] [id number] [place] [address] 18 Jan, 2013 [facility] [address] [id number] [place] [address] 02 Jan, 2013 [facility] [address] [id number] [facility] [place] [address] Jan, [facility] [address] [id number] [place] [address] Dec, [facility] [address] [facility] [id number] [place] [address] Dec, [facility] [address] [facility] [id number] [place] [address] Dec, [facility] [address] [facility] [id number] [place] [address] Dec, [facility] [address] [facility] [id number] [place] [address] Nov, [facility] [address] [id number] [place] [address] Nov, [facility] [address] [id number] [place] [address] Nov, [facility] [address] [id number] [place] [address] Nov, [facility] [address] [facility] [id number] [place] [address] Oct, [facility] [address] [id number] [place] [address] Oct, [facility] [address] [id number] [place] [address] Oct, [facility] [address] [id number] [place] [address] Oct, [facility] [address] [facility] [id number] [place] [address] Oct, [facility] [address] [id number] [place] [address] Oct, [facility] [address] [id number] [place] [address] Oct, [facility] [address] [id number] [place] [address] Oct, [facility] [address] [id number] [place] [address] Oct, [facility] [address] [id number] [place] [address] Oct, [facility] [address] [id number] [place] [address] September, [facility] [address] [id number] [place] [address] September, [facility] [address] [id number] [place] [address] September, [facility] [address] [id number] [place] [address] September, [facility] [address] [id number] [place] [address] September, [facility] [address] [id number] [place] [address] September, [facility] [address] [id number] [place] [address] September, [facility] [address] [id number] [place] [address] September, [facility] [address] [id number] [place] [address] September, [facility] [address] [id number] [place] [address] Aug, [facility] [address] [id number] [place] [address] Aug, [facility] [address] [id number] [place] [address] Aug, [facility] [address] [id number] [place] [address] Aug, [facility] [place] [facility] [address] [id number] [place] [address] Aug, [facility] [place] [facility] [address] [id number] [place] [address] Aug, [facility] [place] [facility] [address] [facility] [id number] [place] [address] Aug, [facility] [place] [facility] [address] [facility] [id number] [place] [address] Aug, [facility] [place] [facility] [address] [id number] [facility] [place] [address] Jul, [facility] [place] [facility] [address] [id number] [place] [address] Jul, [facility] [place] [facility] [address] [facility] [id number] [place] [address] Jul, [facility] [place] [facility] [address] [id number] [place] [address] 24 Jul, 2013 [facility] [place] [facility] [address] [id number] [facility] [place] [address] 24 Jul, 2013 [facility] [place] [facility] [address] [id number] [facility] [place] [address] Jul, [facility] [place] [facility] [address] [id number] [facility] [place] [address] Jul, [facility] [place] [facility] [address] [id number] [place] [address] 18 Jul, 2013 [facility] [place] [facility] [address] [id number] [place] [address] 18 Jul, 2013 [facility] [place] [facility] [address] [id number] [place] [address] 17 Jul, 2013 [facility] [place] [facility] [address] [id number] [facility] [place] [address] 17 Jul, 2013 [facility] [place] [facility] [address] [id number] [place] [address] 13 Jul, 2013 [facility] [place] [facility] [address] [id number] [place] [address] 13 Jul, 2013 [facility] [place] [facility] [address] [id number] [place] [address] 05 Jul, 2013 [facility] [place] [facility] [address] [id number] [place] [address] Jul, [facility] [place] [facility] [address] [id number] [place] [address] Jul, [facility] [place] [facility] [address] [id number] [place] [address] Jul, [facility] [place] [facility] [address] [id number] [place] [address] Jul, [facility] [place] [facility] [address] [id number] [place] [address] Jul, [facility] [place] [facility] [address] [id number] [place] [address] Jun, [facility] [place] [facility] [address] [id number] [place] [address] Jun, [facility] [place] [facility] [address] [id number] [place] [address] May, [facility] [place] [facility] [address] [id number] [place] [address] May, [facility] [place] [facility] [address] [id number] [place] [address] Apr, [facility] [place] [facility] [address] [id number] [place] [address] Apr, [facility] [place] [facility] [address] [id number] [place] [address] Apr, [facility] [place] [facility] [address] [id number] [place] [address] Apr, [facility] [place] [facility] [address] [id number] [place] [address] Apr, [facility] [place] [facility] [address] [id number] [place] [address] Apr, [facility] [place] [facility] [address] [id number] [place] [address] Mar, [facility] [place] [facility] [address] [id number] [place] [address] Mar, [facility] [place] [facility] [address] [id number] [facility] [place] [address] Mar, [facility] [place] [facility] [address] [facility] [id number] [facility] [place] [address] Mar, [facility] [place] [facility] [address] [facility] [id number] [place] [address] Jan, [facility] [place] [facility] [address] [id number] [facility] [place] [address] Jan, [facility] [place] [facility] [address] [facility] [id number] [facility] [place] [address] Jan, [facility] [place] [facility] [address] [id number] [facility] [place] [address] Dec, [facility] [place] [facility] [address] [id number] [place] [address] Dec, [facility] [place] [facility] [address] [id number] [place] [address] Dec, [facility] [place] [facility] [address] [id number] [facility] [place] [address] Dec, [facility] [place] [facility] [address] [id number] [place] [address] Nov, [facility] [place] [facility] [address] [id number] [place] [address] Nov, [facility] [place] [facility] [address] [id number] [place] [address] Nov, [facility] [place] [facility] [address] [facility] [id number] [facility] [place] [address] Oct, [facility] [place] [facility] [address] [facility] [id number] [place] [address] Oct, [facility] [place] [facility] [address] [id number] [place] [address] Oct, [facility] [place] [facility] [address] [id number] [place] [address] Oct, [facility] [place] [facility] [address] [id number] [place] [address] 04 Oct, 2012 [facility] [place] [facility] [address] [facility] [id number] [facility] [place] [address] Oct, [facility] [place] [facility] [address] [id number] [place] [address] September, [facility] [place] [facility] [address] [id number] [place] [address] Jul, [facility] [place] [facility] [address] [id number] [place] [address] Jul, [facility] [place] [facility] [address] [id number] [place] [address] Jul, [facility] [place] [facility] [address] [id number] [place] [address] Jul, [facility] [place] [facility] [address] [id number] [place] [address] Jul, [facility] [place] [facility] [address] [id number] [place] [address] Jul, [facility] [place] [facility] [address] [id number] [place] [address] Jun, [facility] [place] [facility] [address] [id number] [place] [address] Apr, [facility] [place] [facility] [address] [id number] [place] [address] Apr, [facility] [place] [facility] [address] [id number] [place] [address] Jan, [facility] [place] [facility] [address] [id number] [place] [address] Dec, [facility] [place] [facility] [address] [id number] [place] [address] Nov, [facility] [place] [facility] [address] [id number] [place] [address] Oct, [facility] [place] [facility] [address] [id number] [place] [address] September, [facility] [place] [facility] [address] [id number] [place] [address] September, [facility] [address] [id number] [place] [address] Jul, [facility] [place] [facility] [address] [id number] [place] [address] Jul, [facility] [address] [id number] [place] [address] Jul, [facility] [place] [facility] [address] [id number] [place] [address] Jul, [facility] [place] [facility] [address] [id number] [place] [address] Jul, [facility] [place] [facility] [address] [id number] [place] [address] 17 Jul, 2011 [facility] [id number] [place] [address] Jul, [facility] [place] [facility] [address] [id number] [place] [address] Jul, [facility] [place] [facility] [address] [id number] [place] [address] 08 Jul, 2011 [facility] [place] [facility] [address] [id number] [place] [address] 07 Jul, 2011 [facility] [place] [facility] [address] [id number] [place] [address] Jun, [facility] [place] [facility] [address] [id number] [place] [address] May, [facility] [place] [facility] [address] [id number] [place] [address] May, [facility] [place] [facility] [address] [id number] [place] [address] May, [facility] [place] [facility] [address] [id number] [place] [address] Apr, [facility] [place] [facility] [address] [id number] [place] [address] Apr, [facility] [address] [id number] [place] [address] Mar, [facility] [address] [id number] [place] [address] Mar, [facility] [address] [id number] [place] [address] Mar, [facility] [id number] [place] [address] Mar, [facility] [address] [id number] [place] [address] Mar, [facility] [address] [id number] [place] [address] September, [facility] [address] [id number] [place] [address] Mar, [facility] [address] [id number] [place] [address] Dec, [facility] [address] [id number] [place] [address] May, [facility] [address] [id number] [place] [address] May, IMMUNIZATIONS No Known Immunizations SOCIAL HISTORY [...]
--- OUTSIDE RECORDS SUMMARY | 2019-10-01 11:04 | XMS REPORT ---
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 Active 197897089 Problem Chronic pain syndrome G89.4 Active 239541583 Problem Hypothyroidism, unspecified E03.9 Ac tive 94780704 Problem Depression, unspecified depression type F32.9 Active 71396856 Problem Major depressive disorder, recurrent episode, moderate F33.1 Active 798690438 Problem Generalized anxiety disorder F41.1 A ctive 48229240 Problem Chronic tension-type headache, intractable G44.221 Active 086663175 Problem Major depressive disorder, recurrent, unspecified F33.9 Active 68679872 Problem Anxiety F41.9 Active 91712219 Problem Primary insomnia F51.01 Active 397 2004 Problem Mixed hyperlipidemia E78.2 Active 769831490 Problem Cervical spondylosis with radiculopathy M47.22 Active 182107192 Problem Chronic migraine G43.709 Active 377 17075 Problem Other chronic pain G89.29 Active 8 1564765 Problem Grief F43.21 Active 151153703 ALLERGIES No Information ENCOUNTERS Encounter Location Date Diagnosis [facility] [id number] [place] [address] Jul, [facility] [address] [address] Jul, [facility] [address] [address] Jul, [facility] [id number] [place] [address] Jul, Generalized anxiety disorder F41.1 and M lopezor depressive disorder, recurrent episode, moderate F33.1 [place] [address] [address] 06 Jul, 2019 [place] [address] [id number] 04 Jul, 2019 Cervical spondylosis with radiculopathy M47.22 [place] [address] [address] Jun, [facility] [address] [facility] [id number] [address] [place] [address] Jun, Allergic urticaria L50.0 [place] [address] [address] 15 Jun, 2019 Cervical spondylosis with radiculopathy M47.22 [place] [address] [address] 14 Jun, 2019 Hypothyroidism, unspecified E03.9 [place] [address] [address] 14 Jun, 2019 [place] [address] [address] 13 Jun, 2019 Major depressive disorder, recurrent, un specified F33.9 ; Primary insomnia F51.01 and Strain of lumbar region, 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 S39.012A [place] [address] [address] 06 Jun, 2019 Cervical spondylosis with radiculopathy M47.22 [place] [address] [address] 02 Jun, 2019 Back strain, subsequent encounter S39.01 2D [place] [address] [address] 02 Jun, 2019 [place] [address] [address] May, Cervical spondylosis with radiculopathy M47.22 [place] [address] [address] 14 Apr, 2019 [place] [address] [address] Apr, Cervical spondylosis with radiculopathy M47.22 [place] [address] [address] Mar, Cervical spondylosis with radiculopathy M47.22 [place] [address] [address] Jan, Generalized anxiety disorder F41.1 and M ajor depressive disorder, recurrent, unspecified F33.9 [place] [address] [address] 16 Jan, 2019 Cervical spondylosis with radiculopathy M47.22 [place] [address] [address] Jan, [place] [address] [address] 09 Jan, 2019 Major depressive disorder, recurrent epi sode, moderate F33.1 and Generalized anxiety disorder F41.1 [place] [address] [address] Dec, [place] [address] [address] Dec, Cervical spondylosis with radiculopathy M47.22 [place] [address] [address] Nov, Cervical spondylosis with radiculopathy M47.22 [place] [address] [address] Nov, Hypothyroidism, unspecified E03.9 [place] [address] [address] Nov, Cervical spondylosis with radiculopathy M47.22 [place] [address] [address] Oct, Cervical spondylosis with radiculopathy M47.22 [place] [id number] [place] [address] Oct, Grief F43.[address] [place] [address] Oct, [place] [address] [address] Oct, Major depressive disorder, recurrent epi sode, moderate F33.1 and Chronic tension-type headache, intractable G44.221 [place] [address] [address] Oct, [place] [address] [address] Oct, Breast cancer screening by mammogram Z12 .31 [place] [address] [address] September, Cervical spondylosis with radiculopathy M47.22 [place] [address] [address] September, Cervical spondylosis with radiculopathy M47.22 [place] [address] [address] Aug, Chronic pain syndrome G89.4 ; Cervicalgi a M54.2 ; Chronic nonintractable headache, unspecified headache type R51 and Alopecia L65.9 [place] [id number] [place] [address] Jul, Cervical spondylosis with radiculopathy M47.22 [place] [address] [address] Jul, [place] [address] [address] Jul, Cervical spondylosis with radiculopathy M47.22 [place] [address] [address] Jul, [place] [address] [address] Jul, Cervical spondylosis with radiculopathy M47.22 [place] [address] [address] Jul, Cervical spondylosis with radiculopathy M47.22 [place] [address] [address] Jul, [place] [address] [address] Jun, Major depressive disorder, recurrent epi sode, moderate F33.1 ; Low back pain M54.5 and Other chronic pain G89.29 [place] [address] [address] Jun, [place] [address] [address] Jun, Bronchitis J40 ; Mixed hyperlipidemia E7 8.2 ; Cervical spondylosis with radiculopathy M47.22 ; 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 ; Major depressive disorder, recurrent episode, moderate F33.1 ; Hypothyroidism, unspecified E03.9 ; Low back pain M54.5 ; Other chronic pain G89.29 and Chronic tension-type headache, intractable G44.221 [place] [address] [address] Jun, Cervical spondylosis with radiculopathy M47.22 [place] [address] [address] May, [place] [address] [address] May, Cervical spondylosis with radiculopathy M47.22 [facility] [address] [facility] [id number] [address] [place] [address] May, Acute nasopharyngitis J00 an d Wheezing R06.2 [place] [address] [address] May, [place] [address] [address] Apr, Cervical spondylosis with radiculopathy M47.22 [place] [address] [address] Mar, Mixed hyperlipidemia E78.2 and Family hi story of stroke Z82.3 [place] [address] [address] 18 Mar, 2018 Cervical spondylosis with radiculopathy M47.22 [place] [address] [address] 17 Mar, 2018 Hypothyroidism, unspecified E03.9 ; Cerv icalgia M54.2 and Chronic migraine G43.709 [place] [address] [address] 15 Mar, 2018 Cervical spondylosis with radiculopathy M47.22 [place] [address] [address] 08 Mar, 2018 Chronic migraine G43.709 ; Cervicalgia M 54.2 and Family history of stroke Z82.3 [place] [address] [address] 14 Jan, 2018 Cervical spondylosis with radiculopathy M47.22 [place] [address] [address] 05 Jan, 2018 Reactive airway disease that is not asth ma R09.89 [facility] [address] [facility] [id number] [address] [place] [address] Dec, Allergic dermatitis due to o ther chemical product L23.5 [place] [address] [address] Dec, Cervical spondylosis with radiculopathy M47.22 and Depression, unspecified depression type F32.9 [place] [address] [address] Oct, [place] [address] [address] Oct, [place] [address] [address] Oct, [place] [address] [address] September, Chronic pain syndrome G89.4 [place] [address] [address] September, Depression, unspecified depression type F32.9 and Cervicalgia M54.2 [place] [address] [address] September, Chronic pain syndrome G89.4 [place] [address] [address] Aug, Red stool R19.5 [place] [address] [address] Aug, Depression, unspecified depression type F32.9 ; Chronic pain syndrome G89.4 ; Chronic tension-type headache, intractable G44.221 ; Red stool R19.5 ; Hypothyroidism, unspecified E03.9 and Mixed hyperlipidemia E78.2 [place] [address] [address] Jul, Major depressive disorder, recurrent epi sode, moderate F33.1 [place] [address] [address] Jul, [place] [address] [address] Jul, Hypothyroidism, unspecified E03.9 [place] [address] [address] Jul, Hypothyroidism, unspecified E03.9 [place] [address] [address] Jul, Mixed hyperlipidemia E78.2 [facility] [address] [address] Jul, Mixed hyperlipidemia E78.2 [facility] [address] [facility] [id number] [address] [place] [address] Jul, Bronchitis J40 ; Cough R05 a nd Wheezing R06.2 [place] [address] [address] Jul, Major depressive disorder, recurrent epi sode, moderate F33.1 and Generalized anxiety disorder F41.1 [place] [address] [address] Jul, [place] [address] [address] Jul, Major depressive disorder, recurrent epi sode, moderate F33.1 and Generalized anxiety disorder F41.1 [place] [address] [address] Jul, Generalized anxiety disorder F41.1 and M ajor depressive disorder, recurrent episode, moderate F33.1 [place] [address] [address] Jul, Mixed hyperlipidemia E78.2 [address] [place] [address] [address] Jun, Depression, unspecified depression type F32.9 ; Cervicalgia M54.2 ; Trigger point M79.1 ; Hypothyroidism, unspecified E03.9 ; Screening, lipid Z13.220 and Mixed hyperlipidemia E78.2 [place] [address] [address] Jun, [place] [address] [address] May, [place] [address] [address] Apr, Acute bronchitis due to other specified organisms J20.8 and Tobacco abuse counseling Z71.6 [facility] [address] [address] Mar, Depression, unspecified depression type F32.9 [facility] [address] [address] Jan, Chronic pain syndrome G89.4 [facility] [address] [address] Nov, Anxiety F41.9 ; Depression, unspecified depression type F32.9 and Chronic pain syndrome G89.4 [address] [place] [address] [address] Oct, Anxiety F41.9 and Hypothyroidism, unspec ified E03.9 [facility] [address] [facility] [id number] [address] [place] [address] Oct, Left foot pain M79.672 and C ontusion of left foot, 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 S90.32XA [address] [address] Oct, [address] [place] [address] [address] September, Cervicalgia M54.2 [place] [address] [address] September, [address] [place] [address] [address] Aug, Cervicalgia M54.2 [address] [place] [address] [address] Aug, Cervicalgia M54.2 and Left arm numbness R20.0 [address] [place] [address] Aug, [place] [address] [address] Aug, [place] [address] [address] Jul, [facility] [address] [address] Jul, [facility] [address] [address] Jul, [facility] [address] [address] Jul, Acute midline low back pain without scia zak M54.5 [facility] [address] [address] Jun, Acute midline low back pain without scia zak M54.5 [address] [place] [address] [address] Jun, Chronic pain syndrome G89.4 and Muscle s pasm M62.838 [place] [address] [address] Jun, [place] [address] [address] Jun, Acute midline low back pain without scia zak M54.5 [address] [address] [address] Jun, [address] [place] [address] May, [address] [place] [address] [address] May, Hypothyroidism, unspecified E03.9 ; 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 ; Hyperglycemia R73.9 ; Encounter for immunization Z23 and Mixed hyperlipidemia E78.2 [place] [place] [address] [address] Apr, Fatigue 780.79 [facility] [address] [address] Apr, Chronic pain syndrome G89.4 [place] [place] [address] [address] Mar, [facility] [address] [address] Mar, Chronic pain syndrome G89.4 [facility] [address] [address] Jan, [facility] [address] [address] Dec, [facility] [address] [address] Dec, Chronic pain syndrome G89.4 [address] [place] [address] Dec, Trigger point M79.2 [address] [place] [address] [address] Nov, Chronic pain syndrome G89.4 [address] [place] [address] [address] Oct, Chronic pain syndrome G89.4 [address] [place] [address] [address] Oct, Irritant contact dermatitis due to deter gent L24.0 [address] [place] [address] [address] September, Hypothyroidism, unspecified E03.9 and De pression, unspecified depression type F32.9 [address] [place] [address] [address] September, Chronic pain syndrome G89.4 [address] [place] [address] [address] Aug, [place] [place] [address] [address] Aug, Trigger point M79.2 [facility] [address] [address] Jul, Chronic pain syndrome G89.4 and 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 [facility] [id number] [place] [address] Jul, Chronic pain syndrome G89.4 and 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 [facility] [id number] [place] [address] Jul, [facility] [address] [address] Jul, [facility] [address] [address] Jun, [facility] [address] [address] May, [facility] [address] [address] May, [facility] [address] [address] May, [facility] [address] [address] May, Pneumonia, organism unspecified, unspeci fied laterality, unspecified part of lung J18.9 [facility] [address] [address] May, Pneumonia, organism unspecified, unspeci fied laterality, unspecified part of lung J18.9 [facility] [address] [address] Apr, [facility] [address] [address] Apr, [facility] [address] [address] Apr, [facility] [address] [address] Apr, [facility] [address] [address] Apr, [facility] [address] [address] Apr, Epigastric pain R10.13 [address] [address] Mar, Tinea pedis B35.3 and Contact dermatitis and eczema due to detergents L24.0 [facility] [address] [address] Mar, [facility] [address] [address] Jan, [facility] [address] [address] Jan, [facility] [address] [address] Jan, [address] [place] [address] [address] Dec, [facility] [address] [address] Nov, [facility] [address] [address] Nov, Fatigue 780.79 [place] [address] [address] Nov, [place] [address] [address] Nov, Unspecified myalgia and myositis 729.1 [place] [address] [address] Nov, Hypercalcemia 275.42 [facility] [address] [address] Nov, Fatigue 780.79 ; Bradycardia 427.89 ; Ch ronic pain 338.29 and Family history of diabetes mellitus V18.0 [facility] [address] [address] Nov, Fatigue 780.79 ; Chronic pain 338.29 ; F amily history of diabetes mellitus V18.0 ; Bradycardia 427.89 ; Hypothyroid 244.9 and Anxiety 300.00 [facility] [id number] [place] [address] Oct, [facility] [id number] [place] [address] September, [facility] [id number] [place] [address] Aug, [facility] [address] [address] Aug, [facility] [id number] [place] [address] Aug, [facility] [id number] [place] [address] Jul, [facility] [id number] [place] [address] Jul, [facility] [id number] [place] [address] Jul, [facility] [id number] [place] [address] Jul, [facility] [id number] [place] [address] Jun, [facility] [id number] [place] [address] Jun, [facility] [id number] [place] [address] Jun, [facility] [id number] [place] [address] Jun, [facility] [address] [address] Jun, [facility] [id number] [place] [address] Jun, [facility] [address] [address] May, [facility] [address] [id number] [place] [address] May, [facility] [address] [id number] [place] [address] May, [facility] [address] [id number] [place] [address] May, [facility] [address] [id number] [place] [address] May, [facility] [address] [id number] [place] [address] May, [facility] [address] [id number] [place] [address] May, [facility] [address] [id number] [place] [address] May, [facility] [address] [id number] [place] [address] May, [facility] [address] [id number] [place] [address] May, [facility] [address] [id number] [place] [address] Apr, [facility] [address] [id number] [place] [address] Apr, [facility] [address] [id number] [place] [address] Apr, [facility] [address] [id number] [place] [address] Apr, [facility] [address] [id number] [place] [address] Apr, [facility] [address] [id number] [place] [address] Apr, [facility] [address] [id number] [place] [address] 18 Apr, 2014 [facility] [address] [id number] [place] [address] 18 Apr, 2014 [facility] [address] [id number] [place] [address] 17 Apr, 2014 [facility] [address] [id number] [place] [address] 17 Apr, 2014 [facility] [address] [id number] [place] [address] 13 Apr, 2014 [facility] [address] [id number] [place] [address] 13 Apr, 2014 [facility] [address] [id number] [place] [address] 11 Apr, 2014 [facility] [address] [id number] [place] [address] 10 Apr, 2014 [facility] [address] [id number] [place] [address] 10 Apr, 2014 [facility] [address] [id number] [place] [address] 16 Mar, 2014 [facility] [address] [id number] [place] [address] 16 Mar, 2014 [facility] [address] [id number] [place] [address] 16 Mar, 2014 [facility] [address] [id number] [place] [address] 16 Mar, 2014 [facility] [address] [id number] [place] [address] 19 Jan, 2013 [facility] [address] [id number] [place] [address] 19 Jan, 2013 [facility] [address] [id number] [place] [address] 18 Jan, 2013 [facility] [address] [id number] [place] [address] 18 Jan, 2013 [facility] [address] [id number] [place] [address] 02 Jan, 2013 [facility] [address] [id number] [facility] [place] [address] Jan, [facility] [address] [id number] [place] [address] Dec, [facility] [address] [facility] [id number] [place] [address] Dec, [facility] [address] [facility] [id number] [place] [address] Dec, [facility] [address] [facility] [id number] [place] [address] Dec, [facility] [address] [facility] [id number] [place] [address] Nov, [facility] [address] [id number] [place] [address] Nov, [facility] [address] [id number] [place] [address] Nov, [facility] [address] [id number] [place] [address] Nov, [facility] [address] [facility] [id number] [place] [address] Oct, [facility] [address] [id number] [place] [address] Oct, [facility] [address] [id number] [place] [address] Oct, [facility] [address] [id number] [place] [address] Oct, [facility] [address] [facility] [id number] [place] [address] Oct, [facility] [address] [id number] [place] [address] Oct, [facility] [address] [id number] [place] [address] Oct, [facility] [address] [facility] [id number] [place] [address] Oct, [facility] [address] [facility] [id number] [place] [address] Oct, [facility] [address] [facility] [id number] [place] [address] Oct, [facility] [address] [id number] [place] [address] September, [facility] [address] [id number] [place] [address] September, [facility] [address] [facility] [id number] [place] [address] September, [facility] [address] [id number] [place] [address] September, [facility] [place] [facility] [address] [id number] [place] [address] September, [facility] [place] [facility] [address] [id number] [place] [address] September, [facility] [place] [facility] [address] [id number] [place] [address] September, [facility] [place] [facility] [address] [id number] [place] [address] September, [facility] [place] [facility] [address] [id number] [place] [address] September, [facility] [place] [facility] [address] [id number] [place] [address] Aug, [facility] [place] [facility] [address] [id number] [place] [address] Aug, [facility] [place] [facility] [address] [id number] [place] [address] Aug, [facility] [place] [facility] [address] [id number] [place] [address] Aug, [facility] [place] [facility] [address] [id number] [place] [address] Aug, [facility] [place] [facility] [address] [id number] [place] [address] Aug, [facility] [place] [facility] [address] [facility] [id number] [place] [address] Aug, [facility] [place] [facility] [address] [facility] [id number] [place] [address] Aug, [facility] [place] [facility] [address] [id number] [facility] [address] Jul, [facility] [place] [facility] [address] [id number] [place] [address] Jul, [facility] [place] [facility] [address] [facility] [id number] [place] [address] Jul, [facility] [place] [facility] [address] [id number] [place] [address] 24 Jul, 2013 [facility] [place] [facility] [address] [id number] [facility] [address] 24 Jul, 2013 [facility] [place] [facility] [address] [id number] [facility] [address] Jul, [facility] [place] [facility] [address] [id number] [place] [address] Jul, [facility] [place] [facility] [address] [id number] [place] [address] 18 Jul, 2013 [facility] [place] [facility] [address] [id number] [place] [address] 18 Jul, 2013 [facility] [place] [facility] [address] [id number] [place] [address] 17 Jul, 2013 [facility] [place] [facility] [address] [id number] [place] [address] 17 Jul, 2013 [facility] [place] [facility] [address] [id number] [place] [address] 13 Jul, 2013 [facility] [place] [facility] [address] [id number] [place] [address] 13 Jul, 2013 [facility] [place] [facility] [address] [id number] [place] [address] 05 Jul, 2013 [facility] [place] [facility] [address] [id number] [place] [address] Jul, [facility] [place] [facility] [address] [id number] [place] [address] Jul, [facility] [place] [facility] [address] [id number] [place] [address] Jul, [facility] [place] [facility] [address] [id number] [place] [address] Jul, [facility] [place] [facility] [address] [id number] [place] [address] Jul, [facility] [place] [facility] [address] [id number] [place] [address] Jun, [facility] [place] [facility] [address] [id number] [place] [address] Jun, [facility] [place] [facility] [address] [id number] [place] [address] May, [facility] [place] [facility] [address] [id number] [place] [address] May, [facility] [place] [facility] [address] [id number] [place] [address] Apr, [facility] [place] [facility] [address] [id number] [place] [address] Apr, [facility] [place] [facility] [address] [id number] [place] [address] Apr, [facility] [place] [facility] [address] [id number] [place] [address] Apr, [facility] [place] [facility] [address] [id number] [place] [address] Apr, [facility] [place] [facility] [address] [id number] [place] [address] Apr, [facility] [place] [facility] [address] [id number] [place] [address] Mar, [facility] [place] [facility] [address] [id number] [place] [address] Mar, [facility] [place] [facility] [address] [id number] [place] [address] Mar, [facility] [place] [facility] [address] [facility] [id number] [place] [address] Mar, [facility] [place] [facility] [address] [facility] [id number] [place] [address] Jan, [facility] [place] [facility] [address] [id number] [place] [address] Jan, [facility] [place] [facility] [address] [facility] [id number] [place] [address] Jan, [facility] [place] [facility] [address] [id number] [place] [address] Dec, [facility] [place] [facility] [address] [id number] [place] [address] Dec, [facility] [place] [facility] [address] [id number] [place] [address] Dec, [facility] [place] [facility] [address] [id number] [place] [address] Dec, [facility] [place] [facility] [address] [id number] [place] [address] Nov, [facility] [place] [facility] [address] [id number] [place] [address] Nov, [facility] [place] [facility] [address] [id number] [place] [address] Nov, [facility] [place] [facility] [address] [facility] [id number] [place] [address] Oct, [facility] [place] [facility] [address] [facility] [id number] [place] [address] Oct, [facility] [place] [facility] [address] [id number] [place] [address] Oct, [facility] [place] [facility] [address] [id number] [place] [address] Oct, [facility] [place] [facility] [address] [id number] [place] [address] 04 Oct, 2012 [facility] [place] [facility] [address] [facility] [id number] [place] [address] Oct, [facility] [place] [facility] [address] [id number] [place] [address] September, [facility] [place] [facility] [address] [id number] [place] [address] Jul, [facility] [place] [facility] [address] [id number] [place] [address] Jul, [facility] [place] [facility] [address] [id number] [place] [address] Jul, [facility] [place] [facility] [address] [id number] [place] [address] Jul, [facility] [place] [facility] [address] [id number] [place] [address] Jul, [facility] [place] [facility] [address] [id number] [place] [address] Jul, [facility] [place] [facility] [address] [id number] [place] [address] Jun, [facility] [place] [facility] [address] [id number] [place] [address] Apr, [facility] [place] [facility] [address] [id number] [place] [address] Apr, [facility] [place] [facility] [address] [id number] [place] [address] Jan, [facility] [place] [facility] [address] [id number] [place] [address] Dec, [facility] [place] [facility] [address] [id number] [place] [address] Nov, [facility] [place] [facility] [address] [id number] [place] [address] Oct, [facility] [place] [facility] [address] [id number] [place] [address] September, [facility] [place] [facility] [address] [id number] [place] [address] September, [facility] [address] [id number] [place] [address] Jul, [facility] [place] [facility] [address] [id number] [place] [address] Jul, [facility] [address] [id number] [place] [address] Jul, [facility] [place] [facility] [address] [id number] [place] [address] Jul, [facility] [place] [facility] [address] [id number] [place] [address] Jul, [facility] [place] [facility] [address] [id number] [place] [address] 17 Jul, 2011 [facility] [id number] [place] [address] Jul, [facility] [place] [facility] [address] [id number] [place] [address] Jul, [facility] [place] [facility] [address] [id number] [place] [address] 08 Jul, 2011 [facility] [place] [facility] [address] [id number] [place] [address] 07 Jul, 2011 [facility] [place] [facility] [address] [id number] [place] [address] Jun, [facility] [place] [facility] [address] [id number] [place] [address] May, [facility] [place] [facility] [address] [id number] [place] [address] May, [facility] [place] [facility] [address] [id number] [place] [address] May, [facility] [place] [facility] [address] [id number] [place] [address] Apr, [facility] [place] [facility] [address] [id number] [place] [address] Apr, [facility] [address] [id number] [place] [address] Mar, [facility] [address] [id number] [place] [address] Mar, [facility] [address] [id number] [place] [address] Mar, [facility] [id number] [place] [address] Mar, [facility] [address] [id number] [place] [address] Mar, [facility] [address] [id number] [place] [address] September, [facility] [address] [id number] [place] [address] Mar, [facility] [address] [id number] [place] [address] Dec, [facility] [address] [id number] [place] [address] May, [facility] [address] [id number] [place] [address] May, IMMUNIZATIONS No Known Immunizations SOCIAL HISTORY [...]
--- OUTSIDE RECORDS SUMMARY | 2019-10-01 11:05 | XMS REPORT ---
Author Author Sarma BARCENAS Organization [facility] Address [address] [place] [address] Care Team Providers Care Tdp Displays Analyst Name Role Phone CEDRICK BARCENAS Unavailable PROBLEMS Type Condition ICD9-CM Code SUU82-GU Code Onset Dates Condition S tatus SNOMED Code Problem senior care 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.891 Active 123180863 Problem Chronic pain syndrome G89.4 Active 016982030 Problem Hypothyroidism, unspecified E03.9 Ac tive 58293627 Problem Depression, unspecified depression type F32.9 Active 97124924 Problem Major depressive disorder, recurrent episode, moderate F33.1 Active 217572404 Problem Generalized anxiety disorder F41.1 A ctive 23997810 Problem Chronic tension-type headache, intractable G44.221 Active 599673273 Problem Major depressive disorder, recurrent, unspecified F33.9 Active 20542051 Problem Anxiety F41.9 Active 10303205 Problem Primary insomnia F51.01 Active 397 2004 Problem Mixed hyperlipidemia E78.2 Active 802954468 Problem Cervical spondylosis with radiculopathy M47.22 Active 678235330 Problem Chronic migraine G43.709 Active 377 20165 Problem Other chronic pain G89.29 Active 8 9252187 Problem Grief F43.21 Active 253190032 ALLERGIES No Information ENCOUNTERS Encounter Location Date Diagnosis [facility] [id number] [place] [address] Jul, [facility] [address] [address] Jul, [facility] [address] [address] Jul, Generalized anxiety disorder F41.1 and M ajor depressive disorder, recurrent episode, moderate F33.1 [address] [place] [address] 06 Jul, 2019 [facility] [id number] [place] [address] 04 Jul, 2019 Cervical spondylosis with radiculopathy M47.22 [facility] [address] [facility] [place] [address] Jun, [facility] [address] [id number] [address] [place] [address] Jun, Allergic urticaria L50.0 [facility] [address] [facility] [place] [address] 15 Jun, 2019 Cervical spondylosis with radiculopathy M47.22 [address] [id number] [place] [address] 14 Jun, 2019 Hypothyroidism, unspecified E03.9 [address] [id number] [place] [address] 14 Jun, 2019 [facility] [id number] [place] [address] 13 Jun, 2019 Major depressive disorder, recurrent, un specified F33.9 ; Primary insomnia F51.01 and Strain of lumbar region, 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 S39.012A [address] [address] [facility] [place] [address] 06 Jun, 2019 Cervical spondylosis with radiculopathy M47.22 [address] [id number] [place] [address] 02 Jun, 2019 Back strain, subsequent encounter S39.01 2D [address] [id number] [place] [address] 02 Jun, 2019 [address] [id number] [place] [address] 12 May, 2019 Cervical spondylosis with radiculopathy M47.22 [address] [id number] [place] [address] Apr, [address] [place] [address] Apr, Cervical spondylosis with radiculopathy M47.22 [address] [address] [address] Mar, Cervical spondylosis with radiculopathy M47.22 [address] [address] [address] Jan, Generalized anxiety disorder F41.1 and M lopezor depressive disorder, recurrent, unspecified F33.9 [address] [place] [address] [address] 16 Jan, 2019 Cervical spondylosis with radiculopathy M47.22 [address] [place] [address] [address] Jan, [address] [place] [address] [address] 09 Jan, 2019 Major depressive disorder, recurrent epi sode, moderate F33.1 and Generalized anxiety disorder F41.1 [address] [place] [address] [address] Dec, [address] [place] [address] [address] Dec, Cervical spondylosis with radiculopathy M47.22 [address] [place] [address] [address] Nov, Cervical spondylosis with radiculopathy M47.22 [address] [place] [address] [address] Nov, Hypothyroidism, unspecified E03.9 [address] [place] [address] [address] Nov, Cervical spondylosis with radiculopathy M47.22 [address] [address] [address] Oct, Cervical spondylosis with radiculopathy M47.22 [address] [id number] [place] [address] Oct, Grief F43.21 [address] [place] [address] Oct, [address] [id number] [place] [address] Oct, Major depressive disorder, recurrent epi sode, moderate F33.1 and Chronic tension-type headache, intractable G44.221 [address] [place] [address] [address] Oct, [address] [address] Oct, Breast cancer screening by mammogram Z12 .[address] [address] September, Cervical spondylosis with radiculopathy M47.22 [address] [address] [address] September, Cervical spondylosis with radiculopathy M47.[address] [address] Aug, Chronic pain syndrome G89.4 ; Cervicalgi a M54.2 ; Chronic nonintractable headache, unspecified headache type R51 and Alopecia L65.9 [address] [address] [address] Jul, Cervical spondylosis with radiculopathy M47.22 [place] [id number] [place] [address] Jul, [address] [address] Jul, Cervical spondylosis with radiculopathy M47.22 [address] [address] [address] Jul, [address] [address] [address] Jul, Cervical spondylosis with radiculopathy M47.22 [address] [address] [address] Jul, Cervical spondylosis with radiculopathy M47.22 [address] [address] [address] Jul, [place] [address] [address] Jun, Major depressive disorder, recurrent epi sode, moderate F33.1 ; Low back pain M54.5 and Other chronic pain G89.29 [address] [place] [address] [address] Jun, [address] [address] [address] Jun, Bronchitis J40 ; Mixed hyperlipidemia E7 8.2 ; Cervical spondylosis with radiculopathy M47.22 ; senior care 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.891 ; Major depressive disorder, recurrent episode, moderate F33.1 ; Hypothyroidism, unspecified E03.9 ; Low back pain M54.5 ; Other chronic pain G89.29 and Chronic tension-type headache, intractable G44.221 [address] [place] [address] [address] Jun, Cervical spondylosis with radiculopathy M47.22 [address] [address] [address] May, [place] [address] [address] May, Cervical spondylosis with radiculopathy M47.22 [facility] [address] [id number] [address] [place] [address] May, Acute nasopharyngitis J00 an d Wheezing R06.2 [address] [place] [address] [address] May, [address] [place] [address] [address] Apr, Cervical spondylosis with radiculopathy M47.22 [address] [place] [address] [address] 19 Mar, 2018 Mixed hyperlipidemia E78.2 and Family hi story of stroke Z82.3 [place] [address] [address] 18 Mar, 2018 Cervical spondylosis with radiculopathy M47.22 [place] [address] [address] 17 Mar, 2018 Hypothyroidism, unspecified E03.9 ; Cerv icalgia M54.2 and Chronic migraine G43.709 [address] [address] [address] 15 Mar, 2018 Cervical spondylosis with radiculopathy M47.22 [address] [place] [address] [address] 08 Mar, 2018 Chronic migraine G43.709 ; Cervicalgia M 54.2 and Family history of stroke Z82.3 [place] [address] [address] 14 Jan, 2018 Cervical spondylosis with radiculopathy M47.22 [place] [address] [address] 05 Jan, 2018 Reactive airway disease that is not asth ma R09.89 [facility] [address] [id number] [address] [place] [address] Dec, Allergic dermatitis due to o ther chemical product L23.5 [address] [address] [address] Dec, Cervical spondylosis with radiculopathy M47.22 and Depression, unspecified depression type F32.9 [address] [address] [address] Oct, [address] [place] [address] Oct, [address] [address] [address] Oct, [address] [place] [address] [address] September, Chronic pain syndrome G89.4 [address] [place] [address] [address] September, Depression, unspecified depression type F32.9 and Cervicalgia M54.2 [address] [place] [address] September, Chronic pain syndrome G89.4 [address] [place] [address] [address] Aug, Red stool R19.5 [address] [place] [address] [address] Aug, Depression, unspecified depression type F32.9 ; Chronic pain syndrome G89.4 ; Chronic tension-type headache, intractable G44.221 ; Red stool R19.5 ; Hypothyroidism, unspecified E03.9 and Mixed hyperlipidemia E78.2 [address] [address] Jul, Major depressive disorder, recurrent epi sode, moderate F33.1 [address] [place] [address] Jul, [address] [place] [address] [address] Jul, Hypothyroidism, unspecified E03.9 [address] [place] [address] [address] Jul, Hypothyroidism, unspecified E03.9 [address] [place] [address] [address] Jul, Mixed hyperlipidemia E78.2 [address] [place] [address] [address] Jul, Mixed hyperlipidemia E78.2 [facility] [address] [id number] [address] [place] [address] Jul, Bronchitis J40 ; Cough R05 a nd Wheezing R06.2 [facility] [address] [address] Jul, Major depressive disorder, recurrent epi sode, moderate F33.1 and Generalized anxiety disorder F41.1 [facility] [address] [address] Jul, [address] [place] [address] Jul, Major depressive disorder, recurrent epi sode, moderate F33.1 and Generalized anxiety disorder F41.1 [address] [address] Jul, Generalized anxiety disorder F41.1 and M ajor depressive disorder, recurrent episode, moderate F33.1 [address] [place] [address] [address] Jul, Mixed hyperlipidemia E78.2 [address] [place] [address] [address] Jun, Depression, unspecified depression type F32.9 ; Cervicalgia M54.2 ; Trigger point M79.1 ; Hypothyroidism, unspecified E03.9 ; Screening, lipid Z13.220 and Mixed hyperlipidemia E78.2 [address] [address] Jun, [address] [place] [address] May, [address] [place] [address] Apr, Acute bronchitis due to other specified organisms J20.8 and Tobacco abuse counseling Z71.6 [address] [place] [address] [address] Mar, Depression, unspecified depression type F32.9 [facility] [address] [address] Jan, Chronic pain syndrome G89.4 [facility] [address] [address] Nov, Anxiety F41.9 ; Depression, unspecified depression type F32.9 and Chronic pain syndrome G89.4 [facility] [address] [address] Oct, Anxiety F41.9 and Hypothyroidism, unspec ified E03.9 [facility] [address] [id number] [address] [place] [address] Oct, Left foot pain M79.672 and C ontusion of left foot, 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 S90.32XA [address] [place] [address] Oct, [facility] [address] [address] September, Cervicalgia M54.2 [address] [address] September, [facility] [address] [address] Aug, Cervicalgia M54.2 [address] [address] Aug, Cervicalgia M54.2 and Left arm numbness R20.0 [facility] [address] [address] Aug, [address] [place] [address] Aug, [facility] [address] [address] Jul, [facility] [address] [address] Jul, [facility] [address] [address] Jul, [facility] [address] [address] Jul, Acute midline low back pain without scia zak M54.5 [facility] [address] [address] Jun, Acute midline low back pain without scia zak M54.5 [facility] [address] [address] Jun, Chronic pain syndrome G89.4 and Muscle s pasm M62.838 [facility] [address] [address] Jun, [facility] [address] [address] Jun, Acute midline low back pain without scia zak M54.5 [facility] [address] [address] Jun, [facility] [address] [address] May, [address] [address] May, Hypothyroidism, unspecified E03.9 ; [employer] radha pain syndrome G89.4 ; Hyperglycemia R73.9 ; Encounter for immunization Z23 and Mixed hyperlipidemia E78.2 [facility] [address] [address] Apr, Fatigue 780.79 [facility] [address] [address] Apr, Chronic pain syndrome G89.4 [facility] [address] [address] Mar, [facility] [address] [address] Mar, Chronic pain syndrome G89.4 [facility] [address] [address] Jan, [facility] [address] [address] Dec, [address] [address] Dec, Chronic pain syndrome G89.4 [facility] [address] [address] Dec, Trigger point M79.2 [address] [address] Nov, Chronic pain syndrome G89.4 [address] [place] [address] Oct, Chronic pain syndrome G89.4 [address] [place] [address] Oct, Irritant contact dermatitis due to deter gent L24.0 [address] [place] [address] September, Hypothyroidism, unspecified E03.9 and De pression, unspecified depression type F32.9 [address] [place] [address] September, Chronic pain syndrome G89.4 [address] [address] Aug, [address] [place] [address] Aug, Trigger point M79.2 [address] [address] Jul, Chronic pain syndrome G89.4 and Long mike m 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.891 [address] [place] [address] Jul, Chronic pain syndrome G89.[address] m current use of opiate analgesic Z79.891 [facility] [id number] [place] [address] Jul, [facility] [id number] [place] [address] Jul, [facility] [id number] [place] [address] Jun, [facility] [id number] [place] [address] May, [facility] [id number] [place] [address] May, [facility] [id number] [place] [address] May, [facility] [id number] [place] [address] May, Pneumonia, organism unspecified, unspeci fied laterality, unspecified part of lung J18.9 [facility] [id number] [place] [address] May, Pneumonia, organism unspecified, unspeci fied laterality, unspecified part of lung J18.9 [facility] [id number] [place] [address] Apr, [facility] [id number] [place] [address] Apr, [facility] [id number] [place] [address] Apr, [facility] [id number] [place] [address] Apr, [facility] [id number] [place] [address] Apr, [facility] [id number] [place] [address] Apr, Epigastric pain R10.13 [facility] [id number] [place] [address] Mar, Tinea pedis B35.3 and Contact dermatitis and eczema due to detergents L24.0 [address] [place] [id number] [place] [address] Mar, [facility] [address] [address] Jan, [address] [place] [address] Jan, [address] [place] [address] Jan, [address] [place] [address] Dec, [address] [place] [address] Nov, [address] [address] Nov, Fatigue 780.79 [address] [place] [address] Nov, [address] [address] Nov, Unspecified myalgia and myositis 729.[address] [address] Nov, Hypercalcemia 275.42 [address] [place] [address] [address] Nov, Fatigue 780.79 ; Bradycardia 427.89 ; Ch ronic pain 338.29 and Family history of diabetes mellitus V18.0 [address] [place] [address] [address] Nov, Fatigue 780.79 ; Chronic pain 338.29 ; F amily history of diabetes mellitus V18.0 ; Bradycardia 427.89 ; Hypothyroid 244.9 and Anxiety [address] [place] [address] Oct, [facility] [address] [id number] [place] [address] September, [facility] [address] [id number] [place] [address] Aug, [facility] [address] [id number] [place] [address] Aug, [facility] [address] [id number] [place] [address] Aug, [facility] [address] [id number] [place] [address] Jul, [facility] [address] [id number] [place] [address] Jul, [facility] [address] [id number] [place] [address] Jul, [facility] [address] [id number] [place] [address] Jul, [facility] [address] [id number] [place] [address] Jun, [facility] [address] [id number] [place] [address] Jun, [facility] [address] [id number] [place] [address] Jun, [facility] [address] [id number] [place] [address] Jun, [facility] [address] [id number] [place] [address] Jun, [facility] [id number] [place] [address] Jun, [facility] [address] [id number] [place] [address] May, [facility] [id number] [place] [address] May, [facility] [address] [id number] [place] [address] May, [facility] [address] [id number] [place] [address] May, [facility] [address] [id number] [place] [address] May, [facility] [address] [id number] [place] [address] May, [facility] [address] [id number] [place] [address] May, [facility] [address] [id number] [place] [address] May, [facility] [address] [id number] [place] [address] May, [facility] [address] [id number] [place] [address] May, [facility] [address] [id number] [place] [address] Apr, [facility] [address] [id number] [place] [address] Apr, [facility] [address] [id number] [place] [address] Apr, [facility] [address] [id number] [place] [address] Apr, [facility] [address] [id number] [place] [address] Apr, [facility] [address] [id number] [place] [address] Apr, [facility] [address] [id number] [place] [address] Apr, [facility] [address] [id number] [place] [address] Apr, [facility] [address] [id number] [place] [address] 17 Apr, 2014 [facility] [address] [id number] [place] [address] 17 Apr, 2014 [facility] [address] [id number] [place] [address] 13 Apr, 2014 [facility] [address] [id number] [place] [address] 13 Apr, 2014 [facility] [address] [id number] [place] [address] 11 Apr, 2014 [facility] [address] [id number] [place] [address] 10 Apr, 2014 [facility] [address] [id number] [place] [address] 10 Apr, 2014 [facility] [address] [id number] [place] [address] 16 Mar, 2014 [facility] [address] [id number] [place] [address] 16 Mar, 2014 [facility] [address] [id number] [place] [address] 16 Mar, 2014 [facility] [address] [id number] [place] [address] 16 Mar, 2014 [facility] [address] [id number] [place] [address] 19 Jan, 2013 [facility] [address] [id number] [place] [address] 19 Sep, 2013 [facility] [address] [id number] [place] [address] 18 Sep, 2013 [facility] [address] [id number] [place] [address] 18 Sep, 2013 [facility] [address] [id number] [place] [address] 02 Sep, 2013 [facility] [address] [id number] [place] [address] 02 Sep, 2013 [facility] [address] [id number] [facility] [place] [address] Dec, [facility] [address] [id number] [place] [address] Dec, [facility] [address] [id number] [place] [address] Dec, [facility] [address] [id number] [place] [address] Dec, [facility] [address] [id number] [place] [address] Nov, [facility] [address] [id number] [place] [address] Nov, [facility] [address] [id number] [place] [address] Nov, [facility] [address] [id number] [place] [address] Nov, [facility] [address] [id number] [place] [address] Oct, [facility] [address] [id number] [place] [address] Oct, [facility] [address] [id number] [place] [address] Oct, [facility] [address] [id number] [place] [address] Oct, [facility] [address] [id number] [place] [address] Oct, [facility] [address] [id number] [place] [address] Oct, [facility] [address] [id number] [place] [address] Oct, [facility] [address] [id number] [place] [address] Oct, [facility] [address] [id number] [place] [address] Oct, [facility] [address] [id number] [place] [address] Oct, [facility] [address] [id number] [place] [address] September, [facility] [address] [id number] [place] [address] September, [facility] [place] [facility] [address] [id number] [place] [address] September, [facility] [place] [facility] [address] [id number] [place] [address] September, [facility] [place] [facility] [address] [id number] [place] [address] September, [facility] [place] [facility] [address] [id number] [place] [address] September, [facility] [place] [facility] [address] [id number] [place] [address] September, [facility] [place] [facility] [address] [id number] [place] [address] September, [facility] [place] [facility] [address] [id number] [place] [address] September, [facility] [place] [facility] [address] [id number] [place] [address] Aug, [facility] [place] [facility] [address] [id number] [place] [address] Aug, [facility] [place] [facility] [address] [id number] [place] [address] Aug, [facility] [place] [facility] [address] [id number] [place] [address] Aug, [facility] [place] [facility] [address] [id number] [place] [address] Aug, [facility] [place] [facility] [address] [id number] [place] [address] Aug, [facility] [place] [facility] [address] [id number] [place] [address] Aug, [facility] [place] [facility] [address] [id number] [facility] [place] [address] Aug, [facility] [place] [facility] [address] [id number] [facility] [place] [address] Jul, [facility] [place] [facility] [address] [id number] [facility] [place] [address] Jul, [facility] [place] [facility] [address] [id number] [place] [address] Jul, [facility] [place] [facility] [address] [id number] [facility] [place] [address] Jul, [facility] [place] [facility] [address] [id number] [place] [address] 24 Jul, 2013 [facility] [place] [facility] [address] [id number] [place] [address] Jul, [facility] [place] [facility] [address] [id number] [facility] [address] Jul, [facility] [place] [facility] [address] [id number] [place] [address] 18 Jul, 2013 [facility] [place] [facility] [address] [id number] [place] [address] 18 Jul, 2013 [facility] [place] [facility] [address] [id number] [place] [address] 17 Jul, 2013 [facility] [place] [facility] [address] [id number] [place] [address] 17 Jul, 2013 [facility] [place] [facility] [address] [id number] [place] [address] 13 Jul, 2013 [facility] [place] [facility] [address] [id number] [place] [address] 13 Jul, 2013 [facility] [place] [facility] [address] [id number] [place] [address] 05 Jul, 2013 [facility] [place] [facility] [address] [id number] [place] [address] 05 Jul, 2013 [facility] [place] [facility] [address] [id number] [place] [address] 10 Jul, 2013 [facility] [place] [facility] [address] [id number] [place] [address] Jul, [facility] [place] [facility] [address] [id number] [place] [address] Jul, [facility] [place] [facility] [address] [id number] [place] [address] Jul, [facility] [place] [facility] [address] [id number] [place] [address] Jun, [facility] [place] [facility] [address] [id number] [place] [address] Jun, [facility] [place] [facility] [address] [id number] [place] [address] May, [facility] [place] [facility] [address] [id number] [place] [address] May, [facility] [place] [facility] [address] [id number] [place] [address] Apr, [facility] [place] [facility] [address] [id number] [place] [address] Apr, [facility] [place] [facility] [address] [id number] [place] [address] Apr, [facility] [place] [facility] [address] [id number] [place] [address] Apr, [facility] [place] [facility] [address] [id number] [place] [address] Apr, [facility] [place] [facility] [address] [id number] [place] [address] Apr, [facility] [place] [facility] [id number] [place] [address] Mar, [facility] [place] [facility] [address] [id number] [place] [address] Mar, [facility] [place] [facility] [address] [id number] [place] [address] Mar, [facility] [place] [facility] [address] [id number] [place] [address] Mar, [facility] [place] [facility] [address] [id number] [place] [address] Jan, [facility] [place] [facility] [address] [id number] [place] [address] Jan, [facility] [place] [facility] [address] [id number] [place] [address] Jan, [facility] [place] [facility] [address] [id number] [place] [address] Dec, [facility] [place] [facility] [address] [id number] [place] [address] Dec, [facility] [place] [facility] [address] [id number] [place] [address] Dec, [facility] [place] [facility] [address] [id number] [place] [address] Dec, [facility] [place] [facility] [address] [id number] [place] [address] Nov, [facility] [place] [facility] [address] [id number] [place] [address] Nov, [facility] [place] [facility] [address] [id number] [place] [address] Nov, [facility] [place] [facility] [address] [id number] [place] [address] Oct, [facility] [place] [facility] [address] [id number] [place] [address] Oct, [facility] [place] [facility] [address] [id number] [place] [address] Oct, [facility] [place] [facility] [address] [id number] [place] [address] Oct, [facility] [place] [facility] [address] [id number] [place] [address] Oct, [facility] [place] [facility] [address] [id number] [facility] [address] Oct, [facility] [place] [facility] [address] [id number] [facility] [place] [address] September, [facility] [place] [facility] [address] [id number] [place] [address] Jul, [facility] [place] [facility] [address] [id number] [place] [address] Jul, [facility] [place] [facility] [address] [id number] [place] [address] Jul, [facility] [place] [facility] [address] [id number] [place] [address] Jul, [facility] [place] [facility] [address] [id number] [place] [address] Jul, [facility] [place] [facility] [address] [id number] [place] [address] Jul, [facility] [place] [facility] [address] [id number] [place] [address] Jun, [facility] [place] [facility] [address] [id number] [place] [address] Apr, [facility] [place] [facility] [address] [id number] [place] [address] Apr, [facility] [place] [facility] [address] [id number] [place] [address] Jan, [facility] [place] [facility] [address] [id number] [place] [address] Dec, [facility] [place] [facility] [address] [id number] [place] [address] Nov, [facility] [place] [facility] [address] [id number] [place] [address] Oct, [facility] [place] [facility] [address] [id number] [place] [address] September, [facility] [place] [facility] [address] [id number] [place] [address] September, [facility] [place] [facility] [address] [id number] [place] [address] Jul, [facility] [place] [facility] [address] [id number] [place] [address] Jul, [facility] [place] [facility] [address] [id number] [place] [address] 28 Jul, 2011 [facility] [place] [facility] [address] [id number] [place] [address] Jul, [facility] [place] [facility] [address] [id number] [place] [address] Jul, [facility] [place] [facility] [address] [id number] [place] [address] 17 Jul, 2011 [facility] [place] [facility] [address] [id number] [place] [address] 13 Jul, 2011 [facility] [address] [id number] [place] [address] Jul, [facility] [place] [facility] [address] [id number] [place] [address] 08 Jul, 2011 [facility] [place] [facility] [address] [id number] [place] [address] 07 Jul, 2011 [facility] [place] [facility] [address] [id number] [place] [address] Jun, [facility] [place] [facility] [address] [id number] [place] [address] May, [facility] [place] [facility] [address] [id number] [place] [address] May, [facility] [place] [facility] [address] [id number] [place] [address] May, [facility] [place] [facility] [address] [id number] [place] [address] Apr, [facility] [place] [facility] [address] [id number] [place] [address] Apr, [facility] [place] [facility] [address] [id number] [place] [address] Mar, [facility] [address] [id number] [place] [address] Mar, [facility] [address] [id number] [place] [address] Mar, [facility] [address] [id number] [place] [address] Mar, [facility] [address] [id number] [place] [address] Mar, [facility] [address] [id number] [place] [address] September, [facility] [address] [id number] [place] [address] Mar, [facility] [address] [id number] [place] [address] Dec, [facility] [address] [id number] [place] [address] May, [facility] [address] [id number] [place] [address] May, IMMUNIZATIONS No Known Immunizations SOCIAL HISTORY [...]
--- OUTSIDE RECORDS SUMMARY | 2019-10-01 11:06 | XMS REPORT | Continuity of Care Document ---
Author Organization Unknown Address Unknown Phone Unavailable Allergies Active Description Code Type Severity Reaction Onset Reported/Identified Relationship to Patient Clinical Status Yes No Known Drug Allergies [id number] Drug Allergy Unknown N/A 01/13/2011 Yes Glucophage 1,000 mg Tablet Drug Allergy 02/23/2012 Yes Glucophage 1,000 mg Tablet Drug Allergy N/A N/A 02/23/2012 Yes metformin [id number] Drug Allergy Severe EDEMA 05/31/2019 Medications There is no data. Problems Date Dx Coded Attending Type Code Diagnosis Diagnosed By 04/30/1323 LAURA HARRISON Ot M54. 12 RADICULOPATHY, CERVICAL REGION 12/06/2007 EUGENE DDS, ELI F 38 0.4 CERUMEN IMPACTION 12/06/2007 EUGENE DDS, ELI F 47 7.9 RHINITIS ALLERGIC 12/06/2007 EUGENE DDS, ELI F 787.01 NAUSEA WITH VOMITING 12/06/2007 EUGENE DDS, ELI F 787.91 DIARRHEA 12/06/2007 MIRIAN BARCENAS APRNNDA S 380.4 CERUMEN IMPACTION 12/06/2007 MIRIAN BARCENAS APRNNDA S 477.9 RHINITIS ALLERGIC 12/06/2007 MIRIAN BARCENAS APRNNDA S 787.01 NAUSEA WITH VOMITING 12/06/2007 MIRIAN BARCENAS APRNNDA S 787.91 DIARRHEA 12/06/2007 CARY DO MARBIN K 380.4 CERUMEN IMPACTION 12/06/2007 CARY DO MARBIN K 477.9 RHINITIS ALLERGIC 12/06/2007 CARY DO MARBIN K 787.01 NAUSEA WITH VOMITING 12/06/2007 CARY DO MARBIN K 787.91 DIARRHEA 12/06/2007 380.4 CERU MEN IMPACTION 12/06/2007 477.9 RHIN ITIS ALLERGIC 12/06/2007 787.01 ROSALINDA SEA WITH VOMITING 12/06/2007 787.91 OANH RRHEA 12/06/2007 380.4 CERU MEN IMPACTION 12/06/2007 477.9 RHIN ITIS ALLERGIC 12/06/2007 787.01 ROSALINDA SEA WITH VOMITING 12/06/2007 787.91 OANH RRHEA 12/06/2007 380.4 CERU MEN IMPACTION 12/06/2007 477.9 RHIN ITIS ALLERGIC 12/06/2007 787.01 ROSALINDA SEA WITH VOMITING 12/06/2007 787.91 OANH RRHEA 12/06/2007 380.4 CERU MEN IMPACTION 12/06/2007 477.9 RHIN ITIS ALLERGIC 12/06/2007 787.01 ROSALINDA SEA WITH VOMITING 12/06/2007 787.91 OANH RRHEA 12/06/2007 NARINDER PRINCIPAL JAVA DEVELOPER, CEDRICK S 380.4 CERUMEN IMPACTION 12/06/2007 NARINDER ARANGO, CEDRICK S 477.9 RHINITIS ALLERGIC 12/06/2007 NARINDER PRINCIPAL JAVA DEVELOPER, CEDRICK S 787.01 NAUSEA WITH VOMITING 12/06/2007 NARINDER ARANGO, CEDRICK S 787.91 DIARRHEA 12/06/2007 CARY DO, MARBIN K 380.4 CERUMEN IMPACTION 12/06/2007 CARY DO, MARBIN K 477.9 RHINITIS ALLERGIC 12/06/2007 CARY DO, MARBIN K 787.01 NAUSEA WITH VOMITING 12/06/2007 CARY DO, MARBIN K 787.91 DIARRHEA 12/06/2007 NARINDER PRINCIPAL JAVA DEVELOPER, CEDRICK S 380.4 CERUMEN IMPACTION 12/06/2007 NARINDER PRINCIPAL JAVA DEVELOPER, CEDRICK S 477.9 RHINITIS ALLERGIC 12/06/2007 NARINDER PRINCIPAL JAVA DEVELOPER, CEDRICK S 787.01 NAUSEA WITH VOMITING 12/06/2007 NARINDER PRINCIPAL JAVA DEVELOPER, CEDRICK S 787.91 DIARRHEA 12/06/2007 NARINDER PRINCIPAL JAVA DEVELOPER, CEDRICK S 380.4 CERUMEN IMPACTION 12/06/2007 NARINDER PRINCIPAL JAVA DEVELOPER, CEDRICK S 477.9 RHINITIS ALLERGIC 12/06/2007 NARINDER PRINCIPAL JAVA DEVELOPER, CEDRICK S 787.01 NAUSEA WITH VOMITING 12/06/2007 NARINDER PRINCIPAL JAVA DEVELOPER, CEDRICK S 787.91 DIARRHEA 12/06/2007 NARINDER PRINCIPAL JAVA DEVELOPER, CEDRICK S 380.4 CERUMEN IMPACTION 12/06/2007 NARINDER PRINCIPAL JAVA DEVELOPER, CEDRICK S 477.9 RHINITIS ALLERGIC 12/06/2007 NARINDER PRINCIPAL JAVA DEVELOPER, CEDRICK S 787.01 NAUSEA WITH VOMITING 12/06/2007 NARINDER PRINCIPAL JAVA DEVELOPER, CEDRICK S 787.91 DIARRHEA 12/06/2007 NARINDER PRINCIPAL JAVA DEVELOPER, CEDRICK S 380.4 CERUMEN IMPACTION 12/06/2007 NARINDER PRINCIPAL JAVA DEVELOPER, CEDRICK S 477.9 RHINITIS ALLERGIC 12/06/2007 NARINDER PRINCIPAL JAVA DEVELOPER, CEDRICK S 787.01 NAUSEA WITH VOMITING 12/06/2007 NARINDER PRINCIPAL JAVA DEVELOPER, CEDRICK S 787.91 DIARRHEA 12/06/2007 NARINDER PRINCIPAL JAVA DEVELOPER, CEDRICK S 380.4 CERUMEN IMPACTION 12/06/2007 NARINDER PRINCIPAL JAVA DEVELOPER, CEDRICK S 477.9 RHINITIS ALLERGIC 12/06/2007 NARINDER PRINCIPAL JAVA DEVELOPER, CEDRICK S 787.01 NAUSEA WITH VOMITING 12/06/2007 NARINDER PRINCIPAL JAVA DEVELOPER, CEDRICK S 787.91 DIARRHEA 12/06/2007 NARINDER PRINCIPAL JAVA DEVELOPER, CEDRICK S 380.4 CERUMEN IMPACTION 12/06/2007 NARINDER PRINCIPAL JAVA DEVELOPER, CEDRICK S 477.9 RHINITIS ALLERGIC 12/06/2007 NARINDER PRINCIPAL JAVA DEVELOPER, CEDRICK S 787.01 NAUSEA WITH VOMITING 12/06/2007 NARINDER PRINCIPAL JAVA DEVELOPER, CEDRICK S 787.91 DIARRHEA 12/06/2007 NARINDER PRINCIPAL JAVA DEVELOPER, CEDRICK S 380.4 CERUMEN IMPACTION 12/06/2007 NARINDER PRINCIPAL JAVA DEVELOPER, CEDRICK S 477.9 RHINITIS ALLERGIC 12/06/2007 NARINDER PRINCIPAL JAVA DEVELOPER, CEDRICK S 787.01 NAUSEA WITH VOMITING 12/06/2007 NARINDER PRINCIPAL JAVA DEVELOPER, CEDRICK S 787.91 DIARRHEA 12/06/2007 NARINDER PRINCIPAL JAVA DEVELOPER, CEDRICK S 380.4 CERUMEN IMPACTION 12/06/2007 NARINDER PRINCIPAL JAVA DEVELOPER, CEDRICK S 477.9 RHINITIS ALLERGIC 12/06/2007 NARINDER PRINCIPAL JAVA DEVELOPER, CEDRICK S 787.01 NAUSEA WITH VOMITING 12/06/2007 NARINDER PRINCIPAL JAVA DEVELOPER, CEDRICK S 787.91 DIARRHEA 12/06/2007 NARINDER PRINCIPAL JAVA DEVELOPER, CEDRICK S 380.4 CERUMEN IMPACTION 12/06/2007 NARINDER PRINCIPAL JAVA DEVELOPERMIRIAN BeNDA S 477.9 RHINITIS ALLERGIC 12/06/2007 NARINDER PRINCIPAL JAVA DEVELOPER, CEDRICK S 787.01 NAUSEA WITH VOMITING 12/06/2007 NARINDER PRINCIPAL JAVA DEVELOPER, CEDRICK S 787.91 DIARRHEA 12/06/2007 MIRIAN BARCENAS APRNNDA S 380.4 CERUMEN IMPACTION 12/06/2007 MIRIAN BARCENAS APRNNDA S 477.9 RHINITIS ALLERGIC 12/06/2007 NARINDER PRINCIPAL JAVA DEVELOPER, CEDRICK S 787.01 NAUSEA WITH VOMITING 12/06/2007 MIRIAN BARCENAS APRNNDA S 787.91 DIARRHEA 12/24/2007 EUGENE DDS, ELI F 250.00 DIABETES II CONTROLLED 12/24/2007 EUGENE DDS, ELI F 72 4.5 BACKACHE UNSPECIFIED 12/24/2007 MIRIAN BARCENAS APRNNDA S 250.00 DIABETES II CONTROLLED 12/24/2007 MIRIAN BARCENAS APRNNDA S 724.5 BACKACHE UNSPECIFIED 12/24/2007 CARY DO, MARBIN K 250.00 DIABETES II CONTROLLED 12/24/2007 CARY DO, MARBIN K 724.5 BACKACHE UNSPECIFIED 12/24/2007 250.00 OANH BETES II CONTROLLED 12/24/2007 724.5 BACK ACHE UNSPECIFIED 12/24/2007 250.00 OANH BETES II CONTROLLED 12/24/2007 724.5 BACK ACHE UNSPECIFIED 12/24/2007 250.00 OANH BETES II CONTROLLED 12/24/2007 724.5 BACK ACHE UNSPECIFIED 12/24/2007 250.00 OANH BETES II CONTROLLED 12/24/2007 724.5 BACK ACHE UNSPECIFIED 12/24/2007 MIRIAN BARCENAS APRNNDA S 250.00 DIABETES II CONTROLLED 12/24/2007 MIRIAN BARCENAS APRNNDA S 724.5 BACKACHE UNSPECIFIED 12/24/2007 CARY DO, MARBIN K 250.00 DIABETES II CONTROLLED 12/24/2007 CARY DO, MARBIN K 724.5 BACKACHE UNSPECIFIED 12/24/2007 MIRIAN BARCENAS APRNNDA S 250.00 DIABETES II CONTROLLED 12/24/2007 NARINDER PRINCIPAL JAVA DEVELOPER, CEDRICK S 724.5 BACKACHE UNSPECIFIED 12/24/2007 NARINDER PRINCIPAL JAVA DEVELOPER, CEDRICK S 250.00 DIABETES II CONTROLLED 12/24/2007 NARINDER PRINCIPAL JAVA DEVELOPER, CEDRICK S 724.5 BACKACHE UNSPECIFIED 12/24/2007 NARINDER PRINCIPAL JAVA DEVELOPER, CEDRICK S 250.00 DIABETES II CONTROLLED 12/24/2007 NARINDER PRINCIPAL JAVA DEVELOPER, CEDRICK S 724.5 BACKACHE UNSPECIFIED 12/24/2007 NARINDER PRINCIPAL JAVA DEVELOPER, CEDRICK S 250.00 DIABETES II CONTROLLED 12/24/2007 NARINDER PRINCIPAL JAVA DEVELOPER, CEDRICK S 724.5 BACKACHE UNSPECIFIED 12/24/2007 NARINDER PRINCIPAL JAVA DEVELOPER, CEDRICK S 250.00 DIABETES II CONTROLLED 12/24/2007 NARINDER PRINCIPAL JAVA DEVELOPER, CEDRICK S 724.5 BACKACHE UNSPECIFIED 12/24/2007 NARNIDER PRINCIPAL JAVA DEVELOPER, CEDRICK S 250.00 DIABETES II CONTROLLED 12/24/2007 NARINDER PRINCIPAL JAVA DEVELOPER, CEDRICK S 724.5 BACKACHE UNSPECIFIED 12/24/2007 NARINDER PRINCIPAL JAVA DEVELOPER, CEDRICK S 250.00 DIABETES II CONTROLLED 12/24/2007 NARINDER PRINCIPAL JAVA DEVELOPER, CEDRICK S 724.5 BACKACHE UNSPECIFIED 12/24/2007 NARINDER PRINCIPAL JAVA DEVELOPER, CEDRICK S 250.00 DIABETES II CONTROLLED 12/24/2007 NARINDER PRINCIPAL JAVA DEVELOPER, CEDRICK S 724.5 BACKACHE UNSPECIFIED 12/24/2007 NARINDER PRINCIPAL JAVA DEVELOPER, CEDRICK S 250.00 DIABETES II CONTROLLED 12/24/2007 NARINDER PRINCIPAL JAVA DEVELOPER, CEDRICK S 724.5 BACKACHE UNSPECIFIED 12/24/2007 NARINDER PRINCIPAL JAVA DEVELOPER, CEDRICK S 250.00 DIABETES II CONTROLLED 12/24/2007 NARINDER PRINCIPAL JAVA DEVELOPER, CEDRICK S 724.5 BACKACHE UNSPECIFIED 02/21/2008 EUGENE DDS, ELI F 46 6.0 BRONCHITIS, ACUTE 02/21/2008 NARINDER PRINCIPAL JAVA DEVELOPERMIRIANCEDRICK S 466.0 BRONCHITIS, ACUTE 02/21/2008 MARBIN CARY DO 466.0 BRONCHITIS, ACUTE 02/21/2008 466.0 BRON CHITIS, ACUTE 02/21/2008 466.0 BRON CHITIS, ACUTE 02/21/2008 466.0 BRON CHITIS, ACUTE 02/21/2008 466.0 BRON CHITIS, ACUTE 02/21/2008 NARINDER PRINCIPAL JAVA DEVELOPER, CEDRICK S 466.0 BRONCHITIS, ACUTE 02/21/2008 MARBIN CARY DO K 466.0 BRONCHITIS, ACUTE 02/21/2008 NARINDER PRINCIPAL JAVA DEVELOPER, CEDRICK S 466.0 BRONCHITIS, ACUTE 02/21/2008 NARINDER PRINCIPAL JAVA DEVELOPER, CEDRICK S 466.0 BRONCHITIS, ACUTE 02/21/2008 NARINDER PRINCIPAL JAVA DEVELOPER, CEDRICK S 466.0 BRONCHITIS, ACUTE 02/21/2008 NARINDER PRINCIPAL JAVA DEVELOPER, CEDRICK S 466.0 BRONCHITIS, ACUTE 02/21/2008 NARINDER PRINCIPAL JAVA DEVELOPER, CEDRICK S 466.0 BRONCHITIS, ACUTE 02/21/2008 NARINDER PRINCIPAL JAVA DEVELOPER, CEDRICK S 466.0 BRONCHITIS, ACUTE 02/21/2008 NARINDER PRINCIPAL JAVA DEVELOPER, CEDRICK S 466.0 BRONCHITIS, ACUTE 02/21/2008 NARINDER PRINCIPAL JAVA DEVELOPER, CEDRICK S 466.0 BRONCHITIS, ACUTE 02/21/2008 NARINDER PRINCIPAL JAVA DEVELOPER, CEDRICK S 466.0 BRONCHITIS, ACUTE 02/21/2008 NARINDER PRINCIPAL JAVA DEVELOPER, CEDRICK S 466.0 BRONCHITIS, ACUTE 11/07/2008 EUGENE DDS, ELI F 789.00 ABDOMINAL PAIN UNSPECIFIED SITE 11/07/2008 NARINDER PRINCIPAL JAVA DEVELOPER, CEDRICK S 789.00 ABDOMINAL PAIN UNSPECIFIED SITE 11/07/2008 MARBIN CARY DO K 789.00 ABDOMINAL PAIN UNSPECIFIED SITE 11/07/2008 789.00 ABD OMINAL PAIN UNSPECIFIED SITE 11/07/2008 789.00 ABD OMINAL PAIN UNSPECIFIED SITE 11/07/2008 789.00 ABD OMINAL PAIN UNSPECIFIED SITE 11/07/2008 789.00 ABD OMINAL PAIN UNSPECIFIED SITE 11/07/2008 NARINDER PRINCIPAL JAVA DEVELOPER, CEDRICK S 789.00 ABDOMINAL PAIN UNSPECIFIED SITE 11/07/2008 MARBIN CARY DO K 789.00 ABDOMINAL PAIN UNSPECIFIED SITE 11/07/2008 NARINDER PRINCIPAL JAVA DEVELOPER, CEDRICK S 789.00 ABDOMINAL PAIN UNSPECIFIED SITE 11/07/2008 NARINDER PRINCIPAL JAVA DEVELOPER, CEDRICK S 789.00 ABDOMINAL PAIN UNSPECIFIED SITE 11/07/2008 NARINDER PRINCIPAL JAVA DEVELOPER, CEDRICK S 789.00 ABDOMINAL PAIN UNSPECIFIED SITE 11/07/2008 NARINDER PRINCIPAL JAVA DEVELOPER, CEDRICK S 789.00 ABDOMINAL PAIN UNSPECIFIED SITE 11/07/2008 NARINDER PRINCIPAL JAVA DEVELOPER, CEDRICK S 789.00 ABDOMINAL PAIN UNSPECIFIED SITE 11/07/2008 NARINDER PRINCIPAL JAVA DEVELOPER, CEDRICK S 789.00 ABDOMINAL PAIN UNSPECIFIED SITE 11/07/2008 NARINDER PRINCIPAL JAVA DEVELOPER, CEDRICK S 789.00 ABDOMINAL PAIN UNSPECIFIED SITE 11/07/2008 NARINDER PRINCIPAL JAVA DEVELOPER, CEDRICK S 789.00 ABDOMINAL PAIN UNSPECIFIED SITE 11/07/2008 NARINDER PRINCIPAL JAVA DEVELOPER, CEDRICK S 789.00 ABDOMINAL PAIN UNSPECIFIED SITE 11/07/2008 NARINDER PRINCIPAL JAVA DEVELOPER, CEDRICK S 789.00 ABDOMINAL PAIN UNSPECIFIED SITE 05/08/2009 EUGENE DDS, ELI F 493.90 ASTHMA, UNSPECIFIED, UNSPECIFIED 05/08/2009 NARINDER PRINCIPAL JAVA DEVELOPER, CEDRICK S 493.90 ASTHMA, UNSPECIFIED, UNSPECIFIED 05/08/2009 MARBIN CARY DO 493.90 ASTHMA, UNSPECIFIED, UNSPECIFIED 05/08/2009 493.90 AST HMA, UNSPECIFIED, UNSPECIFIED 05/08/2009 493.90 AST HMA, UNSPECIFIED, UNSPECIFIED 05/08/2009 493.90 AST HMA, UNSPECIFIED, UNSPECIFIED 05/08/2009 493.90 AST HMA, UNSPECIFIED, UNSPECIFIED 05/08/2009 NARINDER PRINCIPAL JAVA DEVELOPER, CEDRICK S 493.90 ASTHMA, UNSPECIFIED, UNSPECIFIED 05/08/2009 MARBIN CARY DO 493.90 ASTHMA, UNSPECIFIED, UNSPECIFIED 05/08/2009 NARINDER PRINCIPAL JAVA DEVELOPER, CEDRICK S 493.90 ASTHMA, UNSPECIFIED, UNSPECIFIED 05/08/2009 NARINDER PRINCIPAL JAVA DEVELOPER, CEDRICK S 493.90 ASTHMA, UNSPECIFIED, UNSPECIFIED 05/08/2009 NARINDER PRINCIPAL JAVA DEVELOPER, CEDRICK S 493.90 ASTHMA, UNSPECIFIED, UNSPECIFIED 05/08/2009 NARINDER PRINCIPAL JAVA DEVELOPER, CEDRICK S 493.90 ASTHMA, UNSPECIFIED, UNSPECIFIED 05/08/2009 NARINDER PRINCIPAL JAVA DEVELOPER, CEDRICK S 493.90 ASTHMA, UNSPECIFIED, UNSPECIFIED 05/08/2009 NARINDER PRINCIPAL JAVA DEVELOPER, CEDRICK S 493.90 ASTHMA, UNSPECIFIED, UNSPECIFIED 05/08/2009 NARINDER PRINCIPAL JAVA DEVELOPER, CEDRICK S 493.90 ASTHMA, UNSPECIFIED, UNSPECIFIED 05/08/2009 NARINDER PRINCIPAL JAVA DEVELOPER, CEDRICK S 493.90 ASTHMA, UNSPECIFIED, UNSPECIFIED 05/08/2009 NARINDER PRINCIPAL JAVA DEVELOPER, CEDRICK S 493.90 ASTHMA, UNSPECIFIED, UNSPECIFIED 05/08/2009 NARINDER PRINCIPAL JAVA DEVELOPER, CEDRICK S 493.90 ASTHMA, UNSPECIFIED, UNSPECIFIED 09/27/2009 EUGENE DDS, ELI F 72 9.5 PAIN IN LIMB 09/27/2009 NARINDER PRINCIPAL JAVA DEVELOPER, CEDRICK S 729.5 PAIN IN LIMB 09/27/2009 CARY DO, MARBIN K 729.5 PAIN IN LIMB 09/27/2009 729.5 PAIN IN LIMB 09/27/2009 729.5 PAIN IN LIMB 09/27/2009 729.5 PAIN IN LIMB 09/27/2009 729.5 PAIN IN LIMB 09/27/2009 NARINDER PRINCIPAL JAVA DEVELOPER, CEDRICK S 729.5 PAIN IN LIMB 09/27/2009 CARY DO, MARBIN K 729.5 PAIN IN LIMB 09/27/2009 NARINDER PRINCIPAL JAVA DEVELOPER, CEDRICK S 729.5 PAIN IN LIMB 09/27/2009 NARINDER PRINCIPAL JAVA DEVELOPER, CEDRICK S 729.5 PAIN IN LIMB 09/27/2009 NARINDER PRINCIPAL JAVA DEVELOPER, CEDRICK S 729.5 PAIN IN LIMB 09/27/2009 NARINDER PRINCIPAL JAVA DEVELOPER, CEDRICK S 729.5 PAIN IN LIMB 09/27/2009 NARINDER PRINCIPAL JAVA DEVELOPER, CEDRICK S 729.5 PAIN IN LIMB 09/27/2009 NARINDER PRINCIPAL JAVA DEVELOPER, CEDRICK S 729.5 PAIN IN LIMB 09/27/2009 NARINDER PRINCIPAL JAVA DEVELOPER, CEDRICK S 729.5 PAIN IN LIMB 09/27/2009 NARINDER PRINCIPAL JAVA DEVELOPER, CEDRICK S 729.5 PAIN IN LIMB 09/27/2009 NARINDER PRINCIPAL JAVA DEVELOPER, CEDRICK S 729.5 PAIN IN LIMB 09/27/2009 NARINDER PRINCIPAL JAVA DEVELOPER, CEDRICK S 729.5 PAIN IN LIMB 12/05/2009 EUGENE DDS, ELI F 78 6.2 COUGH 12/05/2009 EUGENE DDS, ELI F V15.85 PERSONAL HISTORY OF CONTACT WITH AND (MERRITT SPECTED) EXPOSURE TO POTENTIALLY HAZARDOUS BODY FLUIDS 12/05/2009 NARINDER MONTANAN CEDRICK S 786.2 COUGH 12/05/2009 NARINDER PRINCIPAL JAVA DEVELOPERMIRIANCEDRICK S V15.85 PERSONAL HISTORY OF CONTACT WITH AND (MERRITT SPECTED) EXPOSURE TO POTENTIALLY HAZARDOUS BODY FLUIDS 12/05/2009 CARY DO, MARBIN K 786.2 COUGH 12/05/2009 CARY DO, MARBIN K V15.85 PERSONAL HISTORY OF CONTACT WITH AND (SUSPECTED) EXPOSURE TO POTENTIALLY HAZARDOUS BODY FLUIDS 12/05/2009 786.2 COUGH 12/05/2009 V15.85 PER KATELYN HISTORY OF CONTACT WITH AND (SUSPECTED) EXPOSURE TO POTENTIALLY HAZARDOUS BODY FLUIDS 12/05/2009 786.2 COUGH 12/05/2009 V15.85 PER KATELYN HISTORY OF CONTACT WITH AND (SUSPECTED) EXPOSURE TO POTENTIALLY HAZARDOUS BODY FLUIDS 12/05/2009 786.2 COUGH 12/05/2009 V15.85 PER KATELYN HISTORY OF CONTACT WITH AND (SUSPECTED) EXPOSURE TO POTENTIALLY HAZARDOUS BODY FLUIDS 12/05/2009 786.2 COUGH 12/05/2009 V15.85 PER KATELYN HISTORY OF CONTACT WITH AND (SUSPECTED) EXPOSURE TO POTENTIALLY HAZARDOUS BODY FLUIDS 12/05/2009 NARINDER PRINCIPAL JAVA DEVELOPERMIRIAN eBNDA S 786.2 COUGH 12/05/2009 NARINDER PRINCIPAL JAVA DEVELOPER, CEDRICK S V15.85 PERSONAL HISTORY OF CONTACT WITH AND (MERRITT SPECTED) EXPOSURE TO POTENTIALLY HAZARDOUS BODY FLUIDS 12/05/2009 CARY DO, MARBIN K 786.2 COUGH 12/05/2009 CARY DO, MARBIN K V15.85 PERSONAL HISTORY OF CONTACT WITH AND (SUSPECTED) EXPOSURE TO POTENTIALLY HAZARDOUS BODY FLUIDS 12/05/2009 NARINDER PRINCIPAL JAVA DEVELOPER, CEDRICK S 786.2 COUGH 12/05/2009 NARINDER PRINCIPAL JAVA DEVELOPER CEDRICK S V15.85 PERSONAL HISTORY OF CONTACT WITH AND (MERRITT SPECTED) EXPOSURE TO POTENTIALLY HAZARDOUS BODY FLUIDS 12/05/2009 NARINDER PRINCIPAL JAVA DEVELOPER, CEDRICK S 786.2 COUGH 12/05/2009 NARINDER PRINCIPAL JAVA DEVELOPER CEDRICK S V15.85 PERSONAL HISTORY OF CONTACT WITH AND (MERRITT SPECTED) EXPOSURE TO POTENTIALLY HAZARDOUS BODY FLUIDS 12/05/2009 NARINDER PRINCIPAL JAVA DEVELOPER, CEDRICK S 786.2 COUGH 12/05/2009 NARINDER PRINCIPAL JAVA DEVELOPER, CEDRICK S V15.85 PERSONAL HISTORY OF CONTACT WITH AND (MERRITT SPECTED) EXPOSURE TO POTENTIALLY HAZARDOUS BODY FLUIDS 12/05/2009 NARINDER PRINCIPAL JAVA DEVELOPER, CEDRICK S 786.2 COUGH 12/05/2009 NARINDER PRINCIPAL JAVA DEVELOPER, CEDRICK S V15.85 PERSONAL HISTORY OF CONTACT WITH AND (MERRITT SPECTED) EXPOSURE TO POTENTIALLY HAZARDOUS BODY FLUIDS 12/05/2009 NARINDER PRINCIPAL JAVA DEVELOPER, CEDRICK S 786.2 COUGH 12/05/2009 NARINDER PRINCIPAL JAVA DEVELOPER, CEDRICK S V15.85 PERSONAL HISTORY OF CONTACT WITH AND (MERRITT SPECTED) EXPOSURE TO POTENTIALLY HAZARDOUS BODY FLUIDS 12/05/2009 NARINDER PRINCIPAL JAVA DEVELOPER, CEDRICK S 786.2 COUGH 12/05/2009 NARINDER PRINCIPAL JAVA DEVELOPER, CEDRICK S V15.85 PERSONAL HISTORY OF CONTACT WITH AND (MERRITT SPECTED) EXPOSURE TO POTENTIALLY HAZARDOUS BODY FLUIDS 12/05/2009 NARINDER PRINCIPAL JAVA DEVELOPER, CEDRICK S 786.2 COUGH 12/05/2009 NARINDER PRINCIPAL JAVA DEVELOPER, CEDRICK S V15.85 PERSONAL HISTORY OF CONTACT WITH AND (MERRITT SPECTED) EXPOSURE TO POTENTIALLY HAZARDOUS BODY FLUIDS 12/05/2009 NARINDER PRINCIPAL JAVA DEVELOPER, CEDRICK S 786.2 COUGH 12/05/2009 NARINDER PRINCIPAL JAVA DEVELOPER, CEDRICK S V15.85 PERSONAL HISTORY OF CONTACT WITH AND (MERRITT SPECTED) EXPOSURE TO POTENTIALLY HAZARDOUS BODY FLUIDS 12/05/2009 NARINDER PRINCIPAL JAVA DEVELOPER, CEDRICK S 786.2 COUGH 12/05/2009 NARINDER PRINCIPAL JAVA DEVELOPER, CEDRICK S V15.85 PERSONAL HISTORY OF CONTACT WITH AND (MERRITT SPECTED) EXPOSURE TO POTENTIALLY HAZARDOUS BODY FLUIDS 12/05/2009 NARINDER PRINCIPAL JAVA DEVELOPER, CEDRICK S 786.2 COUGH 12/05/2009 NARINDER PRINCIPAL JAVA DEVELOPER, CEDRICK S V15.85 PERSONAL HISTORY OF CONTACT WITH AND (MERRITT SPECTED) EXPOSURE TO POTENTIALLY HAZARDOUS BODY FLUIDS 01/18/2010 EUGENE DDS, ELI F 52 5.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 01/18/2010 CEDRICK BARCENAS APRN S 525.9 UNSPECIFIED DISORDER OF THE TEETH AND SUPPORTING STRUC TURES 01/18/2010 MARBIN CARY DO 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 01/18/2010 525.9 UNSP ECIFIED DISORDER OF THE TEETH AND SUPPORTING STRUCTURES 01/18/2010 525.9 UNSP ECIFIED DISORDER OF THE TEETH AND SUPPORTING STRUCTURES 01/18/2010 525.9 UNSP ECIFIED DISORDER OF THE TEETH AND SUPPORTING STRUCTURES 01/18/2010 525.9 UNSP ECIFIED DISORDER OF THE TEETH AND SUPPORTING STRUCTURES 01/18/2010 CEDRICK BARCENAS APRN S 525.9 UNSPECIFIED DISORDER OF THE TEETH AND SUPPORTING STRUC TURES 01/18/2010 MARBIN CARY DO 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 01/18/2010 YURY BARCENAS APRNA S 525.9 UNSPECIFIED DISORDER OF THE TEETH AND SUPPORTING STRUC TURES 01/18/2010 MIRIAN BARCENAS APRNNDA S 525.9 UNSPECIFIED DISORDER OF THE TEETH AND SUPPORTING STRUC TURES 01/18/2010 YURY BARCENAS APRNA S 525.9 UNSPECIFIED DISORDER OF THE TEETH AND SUPPORTING STRUC TURES 01/18/2010 MIRIAN BARCENAS APRNNDA S 525.9 UNSPECIFIED DISORDER OF THE TEETH AND SUPPORTING STRUC TURES 01/18/2010 MIRIAN BARCENAS APRNNDA S 525.9 UNSPECIFIED DISORDER OF THE TEETH AND SUPPORTING STRUC TURES 01/18/2010 NARINDER PRINCIPAL JAVA DEVELOPERMIRIAN BeNDA S 525.9 UNSPECIFIED DISORDER OF THE TEETH AND SUPPORTING STRUC TURES 01/18/2010 MIRIAN BARCENAS APRNNDA S 525.9 UNSPECIFIED DISORDER OF THE TEETH AND SUPPORTING STRUC TURES 01/18/2010 MIRIAN BARCENAS APRNNDA S 525.9 UNSPECIFIED DISORDER OF THE TEETH AND SUPPORTING STRUC TURES 01/18/2010 MIRIAN BARCENAS APRNNDA S 525.9 UNSPECIFIED DISORDER OF THE TEETH AND SUPPORTING STRUC TURES 01/18/2010 NARINDER ARANGO CEDRICK S 525.9 UNSPECIFIED DISORDER OF THE TEETH AND SUPPORTING STRUC TURES 09/04/2010 EUGENE DDS, ELI F 300.00 AN ANXIETY UNSPEC 09/04/2010 EUGENE DDS, ELI F 31 1 MO DEPRESS NOS 09/04/2010 NARINDER PRINCIPAL JAVA DEVELOPER, CEDRICK S 300.00 AN ANXIETY UNSPEC 09/04/2010 MIRIAN BARCENAS APRNNDA S 311 MO DEPRESS NOS 09/04/2010 CARY ARIELLE FLORESA K 300.00 AN ANXIETY UNSPEC 09/04/2010 CARY DO, MARBIN K 311 MO DEPRESS NOS 09/04/2010 300.00 AN ANXIETY UNSPEC 09/04/2010 311 MO DEP RESS NOS 09/04/2010 300.00 AN ANXIETY UNSPEC 09/04/2010 311 MO DEP RESS NOS 09/04/2010 300.00 AN ANXIETY UNSPEC 09/04/2010 311 MO DEP RESS NOS 09/04/2010 300.00 AN ANXIETY UNSPEC 09/04/2010 311 MO DEP RESS NOS 09/04/2010 MIRIAN BARCENAS APRNNDA S 300.00 AN ANXIETY UNSPEC 09/04/2010 MIRIAN BARCENAS APRNNDA S 311 MO DEPRESS NOS 09/04/2010 ARIELLE CARY DOA K 300.00 AN ANXIETY UNSPEC 09/04/2010 RAEANN FLORES, MARBIN K 311 MO DEPRESS NOS 09/04/2010 MIRIAN BARCENAS APRNNDA S 300.00 AN ANXIETY UNSPEC 09/04/2010 MIRIAN BARCENAS APRNNDA S 311 MO DEPRESS NOS 09/04/2010 NARINDER PRINCIPAL JAVA DEVELOPERMIRIAN BeNDA S 300.00 AN ANXIETY UNSPEC 09/04/2010 NARINDER PRINCIPAL JAVA DEVELOPERMIRIAN BeNDA S 311 MO DEPRESS NOS 09/04/2010 NARINDER PRINCIPAL JAVA DEVELOPERMIRIAN BeNDA S 300.00 AN ANXIETY UNSPEC 09/04/2010 NARINDER PRINCIPAL JAVA DEVELOPERMIRIAN BeNDA S 311 MO DEPRESS NOS 09/04/2010 NARINDER PRINCIPAL JAVA DEVELOPERMIRIAN BeNDA S 300.00 AN ANXIETY UNSPEC 09/04/2010 NARINDER PRINCIPAL JAVA DEVELOPERMIRIAN BeNDA S 311 MO DEPRESS NOS 09/04/2010 NARINDER PRINCIPAL JAVA DEVELOPER, CEDRICK S 300.00 AN ANXIETY UNSPEC 09/04/2010 NARINDER PRINCIPAL JAVA DEVELOPERMIRIAN BeNDA S 311 MO DEPRESS NOS 09/04/2010 NARINDER PRINCIPAL JAVA DEVELOPERMIRIAN BeNDA S 300.00 AN ANXIETY UNSPEC 09/04/2010 NARINDER PRINCIPAL JAVA DEVELOPERMIRIAN BeNDA S 311 MO DEPRESS NOS 09/04/2010 NARINDER PRINCIPAL JAVA DEVELOPERMIRIAN BeNDA S 300.00 AN ANXIETY UNSPEC 09/04/2010 MIRIAN BARCENAS APRNNDA S 311 MO DEPRESS NOS 09/04/2010 NARINDER PRINCIPAL JAVA DEVELOPER, CEDRICK S 300.00 AN ANXIETY UNSPEC 09/04/2010 NARINDER PRINCIPAL JAVA DEVELOPER, CDERICK S 311 MO DEPRESS NOS 09/04/2010 NARINDER PRINCIPAL JAVA DEVELOPER, CEDRICK S 300.00 AN ANXIETY UNSPEC 09/04/2010 NARINDER PRINCIPAL JAVA DEVELOPER, CEDRICK S 311 MO DEPRESS NOS 09/04/2010 NARINDER PRINCIPAL JAVA DEVELOPER, CEDRICK S 300.00 AN ANXIETY UNSPEC 09/04/2010 NARINDER PRINCIPAL JAVA DEVELOPER, CEDRICK S 311 MO DEPRESS NOS 01/15/2011 Ot 218.1 INTR AMURAL LEIOMYOMA 01/15/2011 Ot 401.9 HYPE RTENSION NOS 01/15/2011 Ot 618.2 UTER OVAG PROLAPS- INCOMPL 01/15/2011 Ot 620.1 JOÃO US LUTEUM CYST 01/15/2011 Ot 625.3 DYSM ENORRHEA 01/15/2011 Ot 625.6 FEM STRESS INCONTINENCE 01/15/2011 Ot 626.2 EXCE SSIVE MENSTRUATION 05/05/2011 EUGENE DDS, ELI F 46 1.9 SINUSITIS ACUTE 05/05/2011 NARINDER PRINCIPAL JAVA DEVELOPER, CEDRICK S 461.9 SINUSITIS ACUTE 05/05/2011 MARBIN CARY DO K 461.9 SINUSITIS ACUTE 05/05/2011 461.9 SINU SITIS ACUTE 05/05/2011 461.9 SINU SITIS ACUTE 05/05/2011 461.9 SINU SITIS ACUTE 05/05/2011 461.9 SINU SITIS ACUTE 05/05/2011 NARINDER PRINCIPAL JAVA DEVELOPER, CEDRICK S 461.9 SINUSITIS ACUTE 05/05/2011 ARIELLE CARY DOA K 461.9 SINUSITIS ACUTE 05/05/2011 NARINDER PRINCIPAL JAVA DEVELOPER, CEDRICK S 461.9 SINUSITIS ACUTE 05/05/2011 NARINDER PRINCIPAL JAVA DEVELOPER, CEDRICK S 461.9 SINUSITIS ACUTE 05/05/2011 NARINDER PRINCIPAL JAVA DEVELOPER, CEDRICK S 461.9 SINUSITIS ACUTE 05/05/2011 NARINDER PRINCIPAL JAVA DEVELOPER, CEDRICK S 461.9 SINUSITIS ACUTE 05/05/2011 NARINDER PRINCIPAL JAVA DEVELOPER, CEDRICK S 461.9 SINUSITIS ACUTE 05/05/2011 NARINDER PRINCIPAL JAVA DEVELOPER, CEDRICK S 461.9 SINUSITIS ACUTE 05/05/2011 MIRIAN BARCENAS APRNNDA S 461.9 SINUSITIS ACUTE 05/05/2011 MIRIAN BARCENAS APRNNDA S 461.9 SINUSITIS ACUTE 05/05/2011 NARINDER ARANGO, CEDRICK S 461.9 SINUSITIS ACUTE 05/05/2011 MIRIAN BARCENAS APRNNDA S 461.9 SINUSITIS ACUTE 07/08/2011 EUGENE DDS, ELI F 719.47 PAIN IN JOINT INVOLVING ANKLE AND FOOT 07/08/2011 MIRIAN BARCENAS APRNNDA S 719.47 PAIN IN JOINT INVOLVING ANKLE AND FOOT 07/08/2011 MARBIN CARY DO 719.47 PAIN IN JOINT INVOLVING ANKLE AND FOOT 07/08/2011 719.47 NEVILLE N IN JOINT INVOLVING ANKLE AND FOOT 07/08/2011 719.47 NEVILLE N IN JOINT INVOLVING ANKLE AND FOOT 07/08/2011 719.47 NEVILLE N IN JOINT INVOLVING ANKLE AND FOOT 07/08/2011 719.47 NEVILLE N IN JOINT INVOLVING ANKLE AND FOOT 07/08/2011 [...] JOINT INVOLVING ANKLE AND FOOT 07/08/2011 NARINDER PRINCIPAL JAVA DEVELOPER, CEDRICK S 719.47 PAIN IN JOINT INVOLVING ANKLE AND FOOT 07/08/2011 NARINDER PRINCIPAL JAVA DEVELOPER, CEDRICK S 719.47 PAIN IN JOINT INVOLVING ANKLE AND FOOT 07/14/2011 EUGENE DDS, ELI F 790.29 OTHER ABNORMAL GLUCOSE 07/14/2011 NARINDER PRINCIPAL JAVA DEVELOPER, CEDRICK S 790.29 OTHER ABNORMAL GLUCOSE 07/14/2011 MARBIN CARY DO K 790.29 OTHER ABNORMAL GLUCOSE 07/14/2011 790.29 OTH ER ABNORMAL GLUCOSE 07/14/2011 790.29 OTH ER ABNORMAL GLUCOSE 07/14/2011 790.29 OTH ER ABNORMAL GLUCOSE 07/14/2011 790.29 OTH ER ABNORMAL GLUCOSE 07/14/2011 NARINDER MONTANAN, CEDRICK S 790.29 OTHER ABNORMAL GLUCOSE 07/14/2011 RAEANN FLORES MARBIN K 790.29 OTHER ABNORMAL GLUCOSE 07/14/2011 NARINDER PRINCIPAL JAVA DEVELOPER, CEDRICK S 790.29 OTHER ABNORMAL GLUCOSE 07/14/2011 NARINDER PRINCIPAL JAVA DEVELOPER, CEDRICK S 790.29 OTHER ABNORMAL GLUCOSE 07/14/2011 NARINDER PRINCIPAL JAVA DEVELOPER, CEDRICK S 790.29 OTHER ABNORMAL GLUCOSE 07/14/2011 NARINDER PRINCIPAL JAVA DEVELOPER, CEDRICK S 790.29 OTHER ABNORMAL GLUCOSE 07/14/2011 NARINDER PRINCIPAL JAVA DEVELOPER, CEDRICK S 790.29 OTHER ABNORMAL GLUCOSE 07/14/2011 NARINDER PRINCIPAL JAVA DEVELOPER, CEDRICK S 790.29 OTHER ABNORMAL GLUCOSE 07/14/2011 NARINDER PRINCIPAL JAVA DEVELOPER, CEDRICK S 790.29 OTHER ABNORMAL GLUCOSE 07/14/2011 NARINDER PRINCIPAL JAVA DEVELOPER, CEDRICK S 790.29 OTHER ABNORMAL GLUCOSE 07/14/2011 NARINDER PRINCIPAL JAVA DEVELOPER, CEDRICK S 790.29 OTHER ABNORMAL GLUCOSE 07/14/2011 NARINDER PRINCIPAL JAVA DEVELOPER, CEDRICK S 790.29 OTHER ABNORMAL GLUCOSE 02/23/2012 EUGENE DDS, ELI F 307.81 TENSION HEADACHE 02/23/2012 NARINDER MONTANAN, CEDRICK S 307.81 TENSION HEADACHE 02/23/2012 CARY MARBIN FLORES K 307.81 TENSION HEADACHE 02/23/2012 307.81 TEN JAY HEADACHE 02/23/2012 307.81 TEN JAY HEADACHE 02/23/2012 307.81 TEN JAY HEADACHE 02/23/2012 307.81 TEN JAY HEADACHE 02/23/2012 YURY BARCENAS APRNA S 307.81 TENSION HEADACHE 02/23/2012 MARBIN CARY DO 307.81 TENSION HEADACHE 02/23/2012 YURY BARCENAS APRNA S 307.81 TENSION HEADACHE 02/23/2012 NARINDER PRINCIPAL JAVA DEVELOPERMIRIAN BeNDA S 307.81 TENSION HEADACHE 02/23/2012 NARINDER PRINCIPAL JAVA DEVELOPERMIRIAN BeNDA S 307.81 TENSION HEADACHE 02/23/2012 NARINDER PRINCIPAL JAVA DEVELOPERMIRIAN BeNDA S 307.81 TENSION HEADACHE 02/23/2012 MIRIAN BARCENAS APRNNDA S 307.81 TENSION HEADACHE 02/23/2012 MIRIAN BARCENAS APRNNDA S 307.81 TENSION HEADACHE 02/23/2012 MIRIAN BARCENAS APRNNDA S 307.81 TENSION HEADACHE 02/23/2012 MIRIAN BARCENAS APRNNDA S 307.81 TENSION HEADACHE 02/23/2012 MIRIAN BARCENAS APRNNDA S 307.81 TENSION HEADACHE 02/23/2012 MIRIAN BARCENAS APRNNDA S 307.81 TENSION HEADACHE 03/09/2012 Ot 305.1 TOBA RECEIVING ROOM CLERK USE DISORDER 03/09/2012 Ot 629.32 EXP OSURE OF IMPLANT VAG MESH OTH PROST 06/22/2012 CEDRICK BARCENAS APRN S 535.00 ACUTE GASTRITIS (WITHOUT HEMORRHAGE) 06/22/2012 CEDRICK BARCENAS APRN S V18.0 FAMILY HISTORY OF DIABETES MELLITUS 06/22/2012 MARBIN CARY DO 535.00 ACUTE GASTRITIS (WITHOUT HEMORRHAGE) 06/22/2012 MARBIN CARY DO V18.0 FAMILY HISTORY OF DIABETES MELLITUS 06/22/2012 535.00 ACU TE GASTRITIS (WITHOUT HEMORRHAGE) 06/22/2012 V18.0 FAMI LY HISTORY OF DIABETES MELLITUS 06/22/2012 535.00 ACU TE GASTRITIS (WITHOUT HEMORRHAGE) 06/22/2012 V18.0 FAMI LY HISTORY OF DIABETES MELLITUS 06/22/2012 535.00 ACU TE GASTRITIS (WITHOUT HEMORRHAGE) 06/22/2012 V18.0 FAMI LY HISTORY OF DIABETES MELLITUS 06/22/2012 535.00 ACU TE GASTRITIS (WITHOUT HEMORRHAGE) 06/22/2012 V18.0 FAMI LY HISTORY OF DIABETES MELLITUS 06/22/2012 NARINDER PRINCIPAL JAVA DEVELOPER, CEDRICK S 535.00 ACUTE GASTRITIS (WITHOUT HEMORRHAGE) 06/22/2012 NARINDER PRINCIPAL JAVA DEVELOPER, CEDRICK S V18.0 FAMILY HISTORY OF DIABETES MELLITUS 06/22/2012 CARY DOARIELLEA K 535.00 ACUTE GASTRITIS (WITHOUT HEMORRHAGE) 06/22/2012 CARY DO, MARBIN K V18.0 FAMILY HISTORY OF DIABETES MELLITUS 06/22/2012 NARINDER PRINCIPAL JAVA DEVELOPER, CEDRICK S 535.00 ACUTE GASTRITIS (WITHOUT HEMORRHAGE) 06/22/2012 NARINDER PRINCIPAL JAVA DEVELOPER, CEDRICK S V18.0 FAMILY HISTORY OF DIABETES MELLITUS 06/22/2012 NARINDER PRINCIPAL JAVA DEVELOPER, CEDRICK S 535.00 ACUTE GASTRITIS (WITHOUT HEMORRHAGE) 06/22/2012 NARINDER PRINCIPAL JAVA DEVELOPER, CEDRICK S V18.0 FAMILY HISTORY OF DIABETES MELLITUS 06/22/2012 NARINDER PRINCIPAL JAVA DEVELOPER, CEDRICK S 535.00 ACUTE GASTRITIS (WITHOUT HEMORRHAGE) 06/22/2012 NARINDER PRINCIPAL JAVA DEVELOPER, CEDRICK S V18.0 FAMILY HISTORY OF DIABETES MELLITUS 06/22/2012 NARINDER PRINCIPAL JAVA DEVELOPER, CEDRICK S 535.00 ACUTE GASTRITIS (WITHOUT HEMORRHAGE) 06/22/2012 NARINDER PRINCIPAL JAVA DEVELOPER, CEDRICK S V18.0 FAMILY HISTORY OF DIABETES MELLITUS 06/22/2012 NARINDER PRINCIPAL JAVA DEVELOPER, CEDRICK S 535.00 ACUTE GASTRITIS (WITHOUT HEMORRHAGE) 06/22/2012 NARINDER PRINCIPAL JAVA DEVELOPER, CEDRICK S V18.0 FAMILY HISTORY OF DIABETES MELLITUS 06/22/2012 NARINDER PRINCIPAL JAVA DEVELOPER, CEDRICK S 535.00 ACUTE GASTRITIS (WITHOUT HEMORRHAGE) 06/22/2012 NARINDER PRINCIPAL JAVA DEVELOPER, CEDRICK S V18.0 FAMILY HISTORY OF DIABETES MELLITUS 06/22/2012 NARINDER PRINCIPAL JAVA DEVELOPER, CEDRICK S 535.00 ACUTE GASTRITIS (WITHOUT HEMORRHAGE) 06/22/2012 NARINDER PRINCIPAL JAVA DEVELOPER, CEDRICK S V18.0 FAMILY HISTORY OF DIABETES MELLITUS 06/22/2012 NARINDER PRINCIPAL JAVA DEVELOPER, CEDRICK S 535.00 ACUTE GASTRITIS (WITHOUT HEMORRHAGE) 06/22/2012 NARINDER PRINCIPAL JAVA DEVELOPER, CEDRICK S V18.0 FAMILY HISTORY OF DIABETES MELLITUS 06/22/2012 NARINDER PRINCIPAL JAVA DEVELOPER, CEDRICK S 535.00 ACUTE GASTRITIS (WITHOUT HEMORRHAGE) 06/22/2012 NARINDER PRINCIPAL JAVA DEVELOPER, CEDRICK S V18.0 FAMILY HISTORY OF DIABETES MELLITUS 06/22/2012 NARINDER PRINCIPAL JAVA DEVELOPER, CEDRICK S 535.00 ACUTE GASTRITIS (WITHOUT HEMORRHAGE) 06/22/2012 NARINDER PRINCIPAL JAVA DEVELOPER, CEDRICK S V18.0 FAMILY HISTORY OF DIABETES MELLITUS 08/19/2012 CARY DO, MARBIN K 785.1 PALPITATIONS 08/19/2012 CARY DO, MARBIN K 786.50 CHEST PAIN 08/19/2012 785.1 PALP ITATIONS 08/19/[address] PAIN 08/19/2012 785.1 PALP ITATIONS 08/19/[address] PAIN 08/19/2012 785.1 PALP ITATIONS 08/19/[address] PAIN 08/19/2012 785.1 PALP ITATIONS 08/19/[address] PAIN 08/19/2012 NARINDER PRINCIPAL JAVA DEVELOPER, CEDRICK S 785.1 PALPITATIONS 08/19/2012 NARINDER MONTANAN, CEDRICK S 786.50 CHEST PAIN 08/19/2012 CARY DO, MARBIN K 785.1 PALPITATIONS 08/19/2012 CARY DO, MARBIN K 786.50 CHEST PAIN 08/19/2012 NARINDER PRINCIPAL JAVA DEVELOPER, CEDRICK S 785.1 PALPITATIONS 08/19/2012 NARINDER PRINCIPAL JAVA DEVELOPER, CEDRICK S 786.50 CHEST PAIN 08/19/2012 NARINDER PRINCIPAL JAVA DEVELOPER, CEDRICK S 785.1 PALPITATIONS 08/19/2012 NARINDER PRINCIPAL JAVA DEVELOPER, CEDRICK S 786.50 CHEST PAIN 08/19/2012 NARINDER PRINCIPAL JAVA DEVELOPER, CEDRICK S 785.1 PALPITATIONS 08/19/2012 NARINDER PRINCIPAL JAVA DEVELOPER, CEDRICK S 786.50 CHEST PAIN 08/19/2012 NARINDER PRINCIPAL JAVA DEVELOPER, CEDRICK S 785.1 PALPITATIONS 08/19/2012 NARINDER PRINCIPAL JAVA DEVELOPER, CEDRICK S 786.50 CHEST PAIN 08/19/2012 NARINDER PRINCIPAL JAVA DEVELOPER, CEDRICK S 785.1 PALPITATIONS 08/19/2012 NARINDER PRINCIPAL JAVA DEVELOPER, CEDRICK S 786.50 CHEST PAIN 08/19/2012 NARINDER PRINCIPAL JAVA DEVELOPER, CEDRICK S 785.1 PALPITATIONS 08/19/2012 NARINDER PRINCIPAL JAVA DEVELOPER, CEDRICK S 786.50 CHEST PAIN 08/19/2012 NARINDER PRINCIPAL JAVA DEVELOPER, CEDRICK S 785.1 PALPITATIONS 08/19/2012 NARINDER PRINCIPAL JAVA DEVELOPER, CEDRICK S 786.50 CHEST PAIN 08/19/2012 NARINDER PRINCIPAL JAVA DEVELOPER, CEDRICK S 785.1 PALPITATIONS 08/19/2012 NARINDER PRINCIPAL JAVA DEVELOPER, CEDRICK S 786.50 CHEST PAIN 08/19/2012 NARINDER PRINCIPAL JAVA DEVELOPER, CEDRICK S 785.1 PALPITATIONS 08/19/2012 NARINDER PRINCIPAL JAVA DEVELOPER, CEDRICK S 786.50 CHEST PAIN 08/19/2012 NARINDER PRINCIPAL JAVA DEVELOPER, CEDRICK S 785.1 PALPITATIONS 08/19/2012 NARINDER PRINCIPAL JAVA DEVELOPER, CEDRICK S 786.50 CHEST PAIN 10/21/2012 244.9 HYPO THYROIDISM 10/21/2012 244.9 HYPO THYROIDISM 10/21/2012 244.9 HYPO THYROIDISM 10/21/2012 244.9 HYPO THYROIDISM 10/21/2012 NARINDER PRINCIPAL JAVA DEVELOPER, CEDRICK S 244.9 HYPOTHYROIDISM 10/21/2012 CARY DO MARBIN K 244.9 HYPOTHYROIDISM 10/21/2012 NARINDER PRINCIPAL JAVA DEVELOPER, CEDRICK S 244.9 HYPOTHYROIDISM 10/21/2012 NARINDER PRINCIPAL JAVA DEVELOPER, CEDRICK S 244.9 HYPOTHYROIDISM 10/21/2012 NARINDER PRINCIPAL JAVA DEVELOPER, CEDRICK S 244.9 HYPOTHYROIDISM 10/21/2012 NARINDER PRINCIPAL JAVA DEVELOPER, CEDRICK S 244.9 HYPOTHYROIDISM 10/21/2012 NARINDER PRINCIPAL JAVA DEVELOPER, CEDRICK S 244.9 HYPOTHYROIDISM 10/21/2012 NARINDER PRINCIPAL JAVA DEVELOPER, CEDRICK S 244.9 HYPOTHYROIDISM 10/21/2012 NARINDER PRINCIPAL JAVA DEVELOPER, CEDRICK S 244.9 HYPOTHYROIDISM 10/21/2012 NARINDER PRINCIPAL JAVA DEVELOPER, CEDRICK S 244.9 HYPOTHYROIDISM 10/21/2012 NARINDER PRINCIPAL JAVA DEVELOPER, CEDRICK S 244.9 HYPOTHYROIDISM 10/21/2012 NARINDER PRINCIPAL JAVA DEVELOPER, CEDRICK S 244.9 HYPOTHYROIDISM 11/09/2012 JARRET VERMA FACC, MELONIE DELUCAP CCDS Ot 244.9 HYPOTHYROIDISM NOS 11/09/2012 JARRET VERMA FACC, MELONIE FACP CCDS Ot 272.4 HYPERLIPIDEMIA NEC/NOS 11/09/2012 JARRET VERMA FACC, MELONIE FACP CCDS Ot 305.1 TOBACCO USE DISORDER 11/09/2012 JARRET VERMA FACC, ALI FACP CCDS Ot 311 DEPRESSIVE DISORDER NEC 11/09/2012 JARRET VERMA FACC, ALI FACP CCDS Ot 346.90 MIGRAINE UNSPECIFIED W/O INTRACT MGRN W/ 11/09/2012 JARRET VERMA FACC, ALI FACP CCDS Ot 427.89 CARDIAC DYSRHYTHMIAS NEC 11/09/2012 JARRET VERMA FACC, ALI FACP CCDS Ot 724.5 BACKACHE NOS 11/09/2012 JARRET VERMA FACC, MELONIE FACP CCDS Ot 786.05 SHORTNESS OF BREATH 11/09/2012 JARRET VERMA FACC, MELONIE FACP CCDS Ot 786.59 CHEST PAIN NEC 11/09/2012 JARRET VERMA FACC, ALI FACP CCDS Ot V17.49 FAMILY HISTORY OF OTHER CARDIOVASCULAR D 11/09/2012 JARRET VERMA FACC, ALI FACP CCDS Ot V58.69 OTH MED,LT,CURRENT USE 11/12/2012 427.89 BRA DYCARDIA 11/12/2012 427.89 BRA DYCARDIA 11/12/2012 427.89 BRA DYCARDIA 11/12/2012 NARINDER PRINCIPAL JAVA DEVELOPER, CEDRICK S 427.89 BRADYCARDIA 11/12/2012 MARBIN CARY DO 427.89 BRADYCARDIA 11/12/2012 NARINDER PRINCIPAL JAVA DEVELOPER, CEDRICK S 427.89 BRADYCARDIA 11/12/2012 NARINDER PRINCIPAL JAVA DEVELOPER, CEDRICK S 427.89 BRADYCARDIA 11/12/2012 NARINDER PRINCIPAL JAVA DEVELOPER, CEDRICK S 427.89 BRADYCARDIA 11/12/2012 NARINDER PRINCIPAL JAVA DEVELOPER, CEDRICK S 427.89 BRADYCARDIA 11/12/2012 NARINDER PRINCIPAL JAVA DEVELOPER, CEDRICK S 427.89 BRADYCARDIA 11/12/2012 NARINDER PRINCIPAL JAVA DEVELOPER, CEDRICK S 427.89 BRADYCARDIA 11/12/2012 NARINDER PRINCIPAL JAVA DEVELOPER, CEDRICK S 427.89 BRADYCARDIA 11/12/2012 NARINDER PRINCIPAL JAVA DEVELOPER, CEDRICK S 427.89 BRADYCARDIA 11/12/2012 NARINDER PRINCIPAL JAVA DEVELOPER, CEDRICK S 427.89 BRADYCARDIA 11/12/2012 NARINDER PRINCIPAL JAVA DEVELOPER, CEDRICK S 427.89 BRADYCARDIA 11/30/2012 799.02 HYP OXEMIA 11/30/2012 799.02 HYP OXEMIA 11/30/2012 NARINDER PRINCIPAL JAVA DEVELOPER, CEDRICK S 799.02 HYPOXEMIA 11/30/2012 CARY MARBIN FLORES K 799.02 HYPOXEMIA 11/30/2012 NARINDER PRINCIPAL JAVA DEVELOPER, CEDRICK S 799.02 HYPOXEMIA 11/30/2012 NARINDER PRINCIPAL JAVA DEVELOPER, CEDRICK S 799.02 HYPOXEMIA 11/30/2012 NARINDER PRINCIPAL JAVA DEVELOPER, CEDRICK S 799.02 HYPOXEMIA 11/30/2012 NARINDER PRINCIPAL JAVA DEVELOPER, CEDRICK S 799.02 HYPOXEMIA 11/30/2012 NARINDER PRINCIPAL JAVA DEVELOPER, CEDRICK S 799.02 HYPOXEMIA 11/30/2012 NARINDER PRINCIPAL JAVA DEVELOPER, CEDRICK S 799.02 HYPOXEMIA 11/30/2012 NARINDER PRINCIPAL JAVA DEVELOPER, CEDRICK S 799.02 HYPOXEMIA 11/30/2012 NARINDER PRINCIPAL JAVA DEVELOPER, CEDRICK S 799.02 HYPOXEMIA 11/30/2012 NARINDER PRINCIPAL JAVA DEVELOPER, CEDRICK S 799.02 HYPOXEMIA 11/30/2012 NARINDER PRINCIPAL JAVA DEVELOPER, CEDRIKC S 799.02 HYPOXEMIA 01/06/2013 CEDRICK BARCENAS MANAGEMENT INSTRUCTOR Ot 780.54 HYPERSOMNIA, UNSPECIFIED 01/06/2013 CEDRICK BARCENAS MANAGEMENT INSTRUCTOR Ot 786.09 RESPIRATORY ABNORM NEC 02/14/2013 CEDRICK BARCENAS MANAGEMENT INSTRUCTOR Ot 346.90 MIGRAINE UNSPECIFIED W/O INTRACT MGRN W/ 02/14/2013 CEDRICK BARCENASP Ot 427.89 CARDIAC DYSRHYTHMIAS NEC 02/17/2013 CEDRICK BARCENASP Ot 346.90 MIGRAINE UNSPECIFIED W/O INTRACT MGRN W/ 02/17/2013 CEDRICK BARCENAS MANAGEMENT INSTRUCTOR Ot 427.89 CARDIAC DYSRHYTHMIAS NEC 04/21/2013 CARY DO, MARBIN K 917.6 SUPERFICIAL FOREIGN BODY (SPLINTER) OF FOOT AND TOE(S) WITHOUT MAJOR OPEN WOUND AND WITHOUT INFECTION 04/21/2013 CEDRICK BARCENAS APRN S 917.6 SUPERFICIAL FOREIGN BODY (SPLINTER) OF F OOT AND TOE(S) WITHOUT MAJOR OPEN WOUND AND WITHOUT INFECTION 04/21/2013 NARINDER PRINCIPAL JAVA DEVELOPER, CEDRICK S 917.6 SUPERFICIAL FOREIGN BODY (SPLINTER) OF F OOT AND TOE(S) WITHOUT MAJOR OPEN WOUND AND WITHOUT INFECTION 04/21/2013 NARINDER PRINCIPAL JAVA DEVELOPER, CEDRICK S 917.6 SUPERFICIAL FOREIGN BODY (SPLINTER) OF F OOT AND TOE(S) WITHOUT MAJOR OPEN WOUND AND WITHOUT INFECTION 04/21/2013 NARINDER PRINCIPAL JAVA DEVELOPER, CEDRICK S 917.6 SUPERFICIAL FOREIGN BODY (SPLINTER) OF F OOT AND TOE(S) WITHOUT MAJOR OPEN WOUND AND WITHOUT INFECTION 04/21/2013 NARINDER PRINCIPAL JAVA DEVELOPER CEDRICK S 917.6 SUPERFICIAL FOREIGN BODY (SPLINTER) OF F OOT AND TOE(S) WITHOUT MAJOR OPEN WOUND AND WITHOUT INFECTION 04/21/2013 NARINDER PRINCIPAL JAVA DEVELOPER, CEDRICK S 917.6 SUPERFICIAL FOREIGN BODY (SPLINTER) OF F OOT AND TOE(S) WITHOUT MAJOR OPEN WOUND AND WITHOUT INFECTION 04/21/2013 NARINDER PRINCIPAL JAVA DEVELOPER, CEDRICK S 917.6 SUPERFICIAL FOREIGN BODY (SPLINTER) OF F OOT AND TOE(S) WITHOUT MAJOR OPEN WOUND AND WITHOUT INFECTION 04/21/2013 NARINDER ARANGO CEDRICK S 917.6 SUPERFICIAL FOREIGN BODY (SPLINTER) OF F OOT AND TOE(S) WITHOUT MAJOR OPEN WOUND AND WITHOUT INFECTION 04/21/2013 NARINDER ARNAGO CEDRICK S 917.6 SUPERFICIAL FOREIGN BODY (SPLINTER) OF F OOT AND TOE(S) WITHOUT MAJOR OPEN WOUND AND WITHOUT INFECTION 04/21/2013 NARINDER ARANGO CEDRICK S 917.6 SUPERFICIAL FOREIGN BODY (SPLINTER) OF F OOT AND TOE(S) WITHOUT MAJOR OPEN WOUND AND WITHOUT INFECTION 08/11/2013 NARINDER ARANGO, CEDRICK S 796.2 ELEVATED BLOOD PRESSURE READING WITHOUT DIAGNOSIS OF H YPERTENSION 08/11/2013 NARINDER PRINCIPAL JAVA DEVELOPER, CEDRICK S 796.2 ELEVATED BLOOD PRESSURE READING WITHOUT DIAGNOSIS OF H YPERTENSION 08/11/2013 NARINDER ARANGO, CEDRICK S 796.2 ELEVATED BLOOD PRESSURE READING WITHOUT DIAGNOSIS OF H YPERTENSION 08/11/2013 NARINDER PRINCIPAL JAVA DEVELOPER, CEDRICK S 796.2 ELEVATED BLOOD PRESSURE READING WITHOUT DIAGNOSIS OF H YPERTENSION 08/11/2013 NARINDER ARANGO, CEDRICK S 796.2 ELEVATED BLOOD PRESSURE READING WITHOUT DIAGNOSIS OF H YPERTENSION 08/11/2013 NARINDER PRINCIPAL JAVA DEVELOPER, CEDRICK S 796.2 ELEVATED BLOOD PRESSURE READING WITHOUT DIAGNOSIS OF H YPERTENSION 08/11/2013 NARINDER PRINCIPAL JAVA DEVELOPER, CEDRICK S 796.2 ELEVATED BLOOD PRESSURE READING WITHOUT DIAGNOSIS OF H YPERTENSION 08/11/2013 NARINDER PRINCIPAL JAVA DEVELOPER, CEDRICK S 796.2 ELEVATED BLOOD PRESSURE READING WITHOUT DIAGNOSIS OF H YPERTENSION 08/11/2013 NARINDER PRINCIPAL JAVA DEVELOPER, CEDRICK S 796.2 ELEVATED BLOOD PRESSURE READING WITHOUT DIAGNOSIS OF H YPERTENSION 08/11/2013 NARINDER PRINCIPAL JAVA DEVELOPER, CEDRICK S 796.2 ELEVATED BLOOD PRESSURE READING WITHOUT DIAGNOSIS OF H YPERTENSION 08/16/2013 NARINDER PRINCIPAL JAVA DEVELOPER, CEDRICK S 288.60 LEUKOCYTOSIS UNSPECIFIED 08/16/2013 NARINDER PRINCIPAL JAVA DEVELOPER, CEDRICK S 462 ACUTE PHARYNGITIS 08/16/2013 NARINDER PRINCIPAL JAVA DEVELOPER, CEDRICK S 288.60 LEUKOCYTOSIS UNSPECIFIED 08/16/2013 NARINDER PRINCIPAL JAVA DEVELOPER, CEDRICK S 462 ACUTE PHARYNGITIS 08/16/2013 NARINDER PRINCIPAL JAVA DEVELOPER, CEDRICK S 288.60 LEUKOCYTOSIS UNSPECIFIED 08/16/2013 NARINDER PRINCIPAL JAVA DEVELOPER, CEDRICK S 462 ACUTE PHARYNGITIS 08/16/2013 NARINDER PRINCIPAL JAVA DEVELOPER, CEDRICK S 288.60 LEUKOCYTOSIS UNSPECIFIED 08/16/2013 NARINDER PRINCIPAL JAVA DEVELOPER, CEDRICK S 462 ACUTE PHARYNGITIS 08/16/2013 NARINDER PRINCIPAL JAVA DEVELOPER, CEDRICK S 288.60 LEUKOCYTOSIS UNSPECIFIED 08/16/2013 NARINDER PRINCIPAL JAVA DEVELOPER, CEDRICK S 462 ACUTE PHARYNGITIS 08/16/2013 NARINDER PRINCIPAL JAVA DEVELOPER, CEDRICK S 288.60 LEUKOCYTOSIS UNSPECIFIED 08/16/2013 NARINDER PRINCIPAL JAVA DEVELOPER, CEDRICK S 462 ACUTE PHARYNGITIS 08/16/2013 NARINDER PRINCIPAL JAVA DEVELOPER, CEDRICK S 288.60 LEUKOCYTOSIS UNSPECIFIED 08/16/2013 NARINDER PRINCIPAL JAVA DEVELOPER, CEDRICK S 462 ACUTE PHARYNGITIS 08/16/2013 NARINDER PRINCIPAL JAVA DEVELOPER, CEDRICK S 288.60 LEUKOCYTOSIS UNSPECIFIED 08/16/2013 NARINDER PRINCIPAL JAVA DEVELOPER, CEDRICK S 462 ACUTE PHARYNGITIS 08/16/2013 MIRIAN BARCENAS APRNNDA S 288.60 LEUKOCYTOSIS UNSPECIFIED 08/16/2013 MIRIAN BARCENAS APRNNDA S 462 ACUTE PHARYNGITIS 08/18/2013 CEDRICK BARCENAS MANAGEMENT INSTRUCTOR Ot 722.93 DISC DIS NEC/NOS-LUMBAR 08/18/2013 CEDRICK BARCENAS MANAGEMENT INSTRUCTOR Ot V57.1 PHYSICAL THERAPY NEC 11/10/2013 MIRIAN BARCENAS APRNNDA S 729.1 MYALGIA [...] BARCENAS APRNNDA S 486 PNEUMONIA UNSPECIFIED 01/17/2014 MIRIAN BARCENAS APRNNDA S 780.8 HOT FLASHES 01/17/2014 MIRIAN BARCENAS APRNNDA S 486 PNEUMONIA UNSPECIFIED 01/17/2014 MIRIAN BARCENAS APRNNDA S 780.8 HOT FLASHES 01/17/2014 MIRIAN BARCENAS APRNNDA S 486 PNEUMONIA UNSPECIFIED 01/17/2014 NARINDER PRINCIPAL JAVA DEVELOPERMIRIAN BeNDA S 780.8 HOT FLASHES 01/17/2014 NARINDER PRINCIPAL JAVA DEVELOPERMIRIAN BeNDA S 486 PNEUMONIA UNSPECIFIED 01/17/2014 NARINDER ARANGO CEDRICK S 780.8 HOT FLASHES 01/17/2014 NARINDER PRINCIPAL JAVA DEVELOPER, CEDRICK S 486 PNEUMONIA UNSPECIFIED 01/17/2014 MIRIAN BARCENAS APRNNDA S 780.8 HOT FLASHES 04/10/2014 MIRIAN BARCENAS APRNNDA S 346.90 MIGRAINE HEADACHE 04/10/2014 NARINDER PRINCIPAL JAVA DEVELOPER, CEDRICK S V15.82 NICOTINE ABUSE 04/10/2014 NARINDER PRINCIPAL JAVA DEVELOPER, CEDRICK S 346.90 MIGRAINE HEADACHE 04/10/2014 NARINDER PRINCIPAL JAVA DEVELOPER, CEDRICK S V15.82 NICOTINE ABUSE 04/10/2014 NARINDER PRINCIPAL JAVA DEVELOPER, CEDRICK S 346.90 MIGRAINE HEADACHE 04/10/2014 NARINDER PRINCIPAL JAVA DEVELOPER, CEDRICK S V15.82 NICOTINE ABUSE 04/10/2014 NARINDER PRINCIPAL JAVA DEVELOPER, CEDRICK S 346.90 MIGRAINE HEADACHE 04/10/2014 NARINDER PRINCIPAL JAVA DEVELOPER, CEDRICK S V15.82 NICOTINE ABUSE 06/27/2014 NARINDER PRINCIPAL JAVA DEVELOPER, CEDRICK S 338.11 PAIN - ACUTE PAIN DUE TO TRAUMA 06/27/2014 NARINDER PRINCIPAL JAVA DEVELOPER, CEDRICK S 959.01 OTHER AND UNSPECIFIED INJURY TO HEAD 06/27/2014 NARINDER PRINCIPAL JAVA DEVELOPER, CEDRICK S 959.2 OTHER AND UNSPECIFIED INJURY TO SHOULDER AND UPPER ARM 06/27/2014 NARINDER MONTANAN, CEDRICK S 959.8 OTHER AND UNSPECIFIED INJURY TO OTHER SP ECIFIED SITES INCLUDING MULTIPLE 06/27/2014 NARINDER PRINCIPAL JAVA DEVELOPER, CEDRICK S E849.6 ACCIDENTS OCCURRING IN PUBLIC BUILDING 06/27/2014 NARINDER PRINCIPAL JAVA DEVELOPER, CEDRICK S E885.9 ACCIDENTAL FALL FROM OTHER SLIPPING TRIPPING OR STUMBL ING 06/27/2014 NARINDER PRINCIPAL JAVA DEVELOPER, CEDRICK S 959.01 OTHER AND UNSPECIFIED INJURY TO HEAD 06/27/2014 NARINDER PRINCIPAL JAVA DEVELOPER, CEDRICK S 959.2 OTHER AND UNSPECIFIED INJURY TO SHOULDER AND UPPER ARM 06/27/2014 NARINDER PRINCIPAL JAVA DEVELOPER, CEDRICK S 959.8 OTHER AND UNSPECIFIED INJURY TO OTHER SP ECIFIED SITES INCLUDING MULTIPLE 06/27/2014 NARINDER PRINCIPAL JAVA DEVELOPER, CEDRICK S E849.6 ACCIDENTS OCCURRING IN PUBLIC BUILDING 06/27/2014 NARINDER PRINCIPAL JAVA DEVELOPER, CEDRICK S E885.9 ACCIDENTAL FALL FROM OTHER SLIPPING TRIPPING OR STUMBL ING 09/15/2014 LUNA RENDON PRINCIPAL JAVA DEVELOPER Ot 729 .1 MYALGIA AND MYOSITIS NOS 09/15/2014 LUNA RENDON APRN Ot 780.79 OTH MALAISE FATIGUE 09/15/2014 LUNA RENDON APRN Ot 787.91 DIARRHEA 09/18/2014 CEDRICK BARCENAS APRN S 008.8 GASTROENTERITIS, VIRAL 12/15/2014 CEDRICK BARCENASP Ot 427.89 01/16/2015 CEDRICK BARCENAS Ot 427.89 [...] Ot 427.89 04/11/2015 ROBBIE SIMMS DO Ot V76.1 2 04/19/2015 Ot 611.72 04/19/2015 Ot 611.72 04/19/2015 [...] Ot 427.89 04/19/2015 ROBBIE SIMMS DO Ot V76.1 2 04/22/2015 Ot 611.72 04/22/2015 Ot 611.72 04/22/2015 [...] Ot 427.89 04/22/2015 ROBBIE SIMMS DO Ot V76.1 2 04/22/2015 CEDRICK BARCENAS Ot R10.13 04/23/2015 SHAYE [...] Ot 427.89 04/25/2015 ROBBIE SIMMS DO Ot V76.1 2 04/25/2015 CEDRICK BARCENAS Ot R10.13 04/27/2015 DAYANA HELLER DO Ot K81. 1 CHRONIC CHOLECYSTITIS 04/27/2015 DAYANA HELLER DO Ot K82. 8 05/04/2015 CEDRICK BARCENAS Ot R10.13 05/09/2015 DAYANA HELLER DO Ot R11. 2 05/17/2015 Ot 611.72 05/17/2015 Ot 611.72 05/17/2015 [...] Ot 427.89 05/17/2015 ROBBIE SIMMS DO Ot V76.1 2 05/17/2015 CEDRICK BARCENAS Ot R10.13 05/17/2015 DAYANA HELLER DO Ot R11. 2 05/17/2015 DAYANA HELLER DO Ot K82. 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 02/08/2016 Ot 618.01 CYS TOCELE, MIDLINE 02/08/2016 Ot 625.6 FEM STRESS INCONTINENCE 02/08/2016 Ot V72.63 PRE -PROCEDURAL LABORATORY EXAMINATION 02/08/2016 Ot V74.8 SCRE EN-BACTERIAL DIS NEC 02/08/2016 Ot V76.12 OTH SCREEN MAMMO- MALIGN NEOPLASM OF BHARGAV 02/08/2016 Ot 629.32 EXP OSURE OF IMPLANT VAG MESH OT PROST 02/08/2016 Ot V72.84 EXA M PRE- OPERATIVE NOS 02/08/2016 Ot V74.8 SCRE EN-BACTERIAL DIS NEC 02/08/2016 Ot 346.90 MICHAEL RITO UNSPECIFIED W/O INTRACT MGRN W/ 02/08/2016 Ot 427.89 CAR DIAC DYSRHYTHMIAS NEC 02/08/2016 Ot 346.90 MICHAEL RITO UNSPECIFIED W/O INTRACT MGRN W/ 02/08/2016 Ot 427.89 CAR DIAC DYSRHYTHMIAS NEC 02/08/2016 ROBBIE SIMMS DO Ot V76.1 2 OTH SCREEN MAMMO-MALIGN NEOPLASM OF BHARGAV 02/08/2016 CEDRICK BARCENAS Ot R10.13 EPIGASTRIC PAIN 02/08/2016 DAYANA HELLER DO Ot R11. 2 NAUSEA WITH VOMITING, UNSPECIFIED 02/08/2016 DAYANA HELLER DO Ot K82. 8 OTHER SPECIFIED DISEASES OF GALLBLADDER 02/08/2016 DAYANA HELLER DO Ot Z01.818 ENCOUNTER FOR OTHER PREPROCEDURAL EXAMIN 07/01/2016 Ot V76.12 OTH SCREEN MAMMO- MALIGN NEOPLASM OF BHARGAV 07/01/2016 Ot 629.32 EXP OSURE OF IMPLANT VAG MESH OTH PROST 07/01/2016 Ot V72.84 EXA M PRE- OPERATIVE NOS 07/01/2016 Ot V74.8 SCRE EN-BACTERIAL DIS NEC 07/01/2016 Ot 346.90 MICHAEL RITO UNSPECIFIED W/O INTRACT MGRN W07/01/2016 Ot 427.89 CAR DIAC DYSRHYTHMIAS NEC 07/01/2016 Ot 346.90 MICHAEL RITO UNSPECIFIED W/O INTRACT MGRN W/ 07/01/2016 Ot 427.89 CAR DIAC DYSRHYTHMIAS NEC 07/01/2016 ROBBIE SIMMS DO Ot V76.1 2 OTH SCREEN MAMMO-MALIGN NEOPLASM OF BHARGAV 07/01/2016 CEDRICK BARCENAS Ot R10.13 EPIGASTRIC PAIN 07/01/2016 DAYANA HELLER DO Ot R11. 2 NAUSEA WITH VOMITING, UNSPECIFIED 07/01/2016 DAYANA HELLER DO Ot K82. 8 OTHER SPECIFIED DISEASES OF GALLBLADDER 07/01/2016 DAYANA HELLER DO Ot Z01.818 ENCOUNTER FOR OTHER PREPROCEDURAL EXAMIN 08/18/2016 Ot V76.12 OTH SCREEN MAMMO- MALIGN NEOPLASM OF BHARGAV 08/18/2016 Ot 629.32 EXP OSURE OF IMPLANT VAG MESH OTH PROST 08/18/2016 Ot V72.84 EXA M PRE- OPERATIVE NOS 08/18/2016 Ot V74.8 SCRE EN-BACTERIAL DIS NEC 08/18/2016 Ot 346.90 MICHAEL RITO UNSPECIFIED W/O INTRACT MGRN W/ 08/18/2016 Ot 427.89 CAR DIAC DYSRHYTHMIAS NEC 08/18/2016 Ot 346.90 MICHAEL RITO UNSPECIFIED W/O INTRACT MGRN W/ 08/18/2016 Ot 427.89 CAR DIAC DYSRHYTHMIAS NEC 08/18/2016 ROBBIE SIMMS DO Ot V76.1 2 OTH SCREEN MAMMO-MALIGN NEOPLASM OF BHARGAV 08/18/2016 CEDRICK BARCENAS Ot R10.13 EPIGASTRIC PAIN 08/18/2016 DAYANA HELLER DO Ot R11. 2 NAUSEA WITH VOMITING, UNSPECIFIED 08/18/2016 DAYANA HELLER DO Ot K82. 8 OTHER SPECIFIED DISEASES OF GALLBLADDER 08/18/2016 DAYANA HELLER DO Ot Z01.818 ENCOUNTER FOR OTHER PREPROCEDURAL EXAMIN 09/23/2016 CEDRICK BARCENAS Ot M47.812 SPONDYLOSIS W/O MYELOPATHY OR RADICULOPA 09/23/2016 CEDRICK BARCENAS Ot M54.2 CERVICALGIA 10/01/2016 CEDRICK BARCENAS Ot M47.812 SPONDYLOSIS W/O MYELOPATHY OR RADICULOPA 10/01/2016 CEDRICK BARCENAS Ot M54.2 CERVICALGIA 10/15/2016 ROBBIE SIMMS DO Ot Z12.3 1 ENCNTR SCREEN MAMMOGRAM FOR MALIGNANT NE 10/29/2016 ROBBIE SIMMS DO Ot Z12.3 1 ENCNTR SCREEN MAMMOGRAM FOR MALIGNANT NE 10/31/2016 Ot V76.12 OTH SCREEN MAMMO- MALIGN NEOPLASM OF BHARGAV 10/31/2016 Ot 629.32 EXP OSURE OF IMPLANT VAG MESH OTH PROST 10/31/2016 Ot V72.84 EXA M PRE- OPERATIVE NOS 10/31/2016 Ot V74.8 SCRE EN-BACTERIAL DIS NEC 10/31/2016 Ot 346.90 MICHAEL RITO UNSPECIFIED W/O INTRACT MGRN W/ 10/31/2016 Ot 427.89 CAR DIAC DYSRHYTHMIAS NEC 10/31/2016 Ot 346.90 MICHAEL RITO UNSPECIFIED W/O INTRACT MGRN W/ 10/31/2016 Ot 427.89 CAR DIAC DYSRHYTHMIAS NEC 10/31/2016 ROBBIE SIMMS DO Ot V76.1 2 OTH SCREEN MAMMO-MALIGN NEOPLASM OF BHARGAV 10/31/2016 CEDRICK BARCENAS Ot R10.13 EPIGASTRIC PAIN 10/31/2016 DAYANA HELLER DO Ot R11. 2 NAUSEA WITH VOMITING, UNSPECIFIED 10/31/2016 DAYANA HELLER DO Ot K82. 8 OTHER SPECIFIED DISEASES OF GALLBLADDER 10/31/2016 DAYANA HELLER DO Ot Z01.818 ENCOUNTER FOR OTHER PREPROCEDURAL EXAMIN 10/31/2016 CEDRICK BARCENAS Ot M47.812 SPONDYLOSIS W/O MYELOPATHY OR RADICULOPA 10/31/2016 CEDRICK BARCENAS Ot M54.2 CERVICALGIA 10/31/2016 ROBBIE SIMMS DO Ot Z12.3 1 ENCNTR SCREEN MAMMOGRAM FOR MALIGNANT NE 02/17/2017 Ot 629.32 EXP OSURE OF IMPLANT VAG MESH OTH PROST 02/17/2017 Ot V72.84 EXA M PRE- OPERATIVE NOS 02/17/2017 Ot V74.8 SCRE EN-BACTERIAL DIS NEC 02/17/2017 Ot 346.90 MICHAEL VERAS UNSPECIFIED W/O INTRACT MGRN W/ 02/17/2017 Ot 427.89 CAR DIAC DYSRHYTHMIAS NEC 02/17/2017 Ot 346.90 MICHAEL VERAS UNSPECIFIED W/O INTRACT MGRN W/ 02/17/2017 Ot 427.89 CAR DIAC DYSRHYTHMIAS NEC 02/17/2017 ROBBIE SIMMS DO Ot V76.1 2 OTH SCREEN MAMMO-MALIGN NEOPLASM OF BHARGAV 02/17/2017 CEDRICK BARCENAS Ot R10.13 EPIGASTRIC PAIN 02/17/2017 DAYANA HELLER DO Ot R11. 2 NAUSEA WITH VOMITING, UNSPECIFIED 02/17/2017 DAYANA HELLER DO Ot K82. 8 OTHER SPECIFIED DISEASES OF GALLBLADDER 02/17/2017 DAYANA HELLER DO Ot Z01.818 ENCOUNTER FOR OTHER PREPROCEDURAL EXAMIN 02/17/2017 CEDRICK BARCENAS Ot M47.812 SPONDYLOSIS W/O MYELOPATHY OR RADICULOPA 02/17/2017 CEDRICK BARCENAS Ot M54.2 CERVICALGIA 02/17/2017 ROBBIE SIMMS DO Ot Z12.3 1 ENCNTR SCREEN MAMMOGRAM FOR MALIGNANT NE 02/17/2017 LUNA RENDON APRN Ot E03 .9 HYPOTHYROIDISM, UNSPECIFIED 02/17/2017 LUNA RENDON APRN Ot G43.909 MIGRAINE, UNSP, NOT INTRACTABLE, WITHOUT 02/17/2017 LUNA RENDON APRN Ot K21 .9 GASTRO-ESOPHAGEAL REFLUX DISEASE WITHOUT 02/17/2017 LUNA RENDON APRN Ot K59.09 OTHER CONSTIPATION 02/17/2017 LUNA RENDON APRN Ot M25.572 PAIN IN LEFT ANKLE AND JOINTS OF LEFT FO 02/17/2017 LUNA RENDON APRN Ot S93.402A SPRAIN OF UNSPECIFIED LIGAMENT OF LEFT A 02/17/2017 LUNA RENDON APRN Ot W51.XXXA ACCIDENTAL STRIKE OR BUMPED INTO BY ANOT 02/17/2017 LUNA RENDON APRN Ot Y92.[address] IN [facility] 02/17/2017 LUNA RENDON APRN Ot Z87.59 PERSONAL HISTORY OF COMP OF PREG, CHLDBR 02/17/2017 LUNA RENDON APRN Ot Z90.710 ACQUIRED ABSENCE OF BOTH CERVIX AND UTER 02/17/2017 LUNA RENDON APRN Ot Z90.89 ACQUIRED ABSENCE OF OTHER ORGANS 02/19/2017 LUNA RENDON APRN Ot E03 .9 HYPOTHYROIDISM, UNSPECIFIED 02/19/2017 LUNA RENDON APRN Ot G43.909 MIGRAINE, UNSP, NOT INTRACTABLE, WITHOUT 02/19/2017 LUNA RENDON APRN Ot K21 .9 GASTRO-ESOPHAGEAL REFLUX DISEASE WITHOUT 02/19/2017 LUNA RENDON APRN Ot K59.09 OTHER CONSTIPATION 02/19/2017 LUNA RENDON APRN Ot M25.572 PAIN IN LEFT ANKLE AND JOINTS OF LEFT FO 02/19/2017 LUNA RENDON APRN Ot S93.402A SPRAIN OF UNSPECIFIED LIGAMENT OF LEFT A 02/19/2017 LUNA RENDON APRN Ot W51.XXXA ACCIDENTAL STRIKE OR BUMPED INTO BY ANOT 02/19/2017 LUNA RENDON APRN Ot Y92.[address] [facility] [address] IN [facility] 02/19/2017 LUNA RENDON APRN Ot Z87.59 PERSONAL HISTORY OF COMP OF PREG, CHLDBR 02/19/2017 LUNA RENDON APRN Ot Z90.710 ACQUIRED ABSENCE OF BOTH CERVIX AND UTER 02/19/2017 LUNA RENDON APRN Ot Z90.89 ACQUIRED ABSENCE OF OTHER ORGANS 02/19/2017 LUNA RENDON APRN Ot E03 .9 HYPOTHYROIDISM, UNSPECIFIED 02/19/2017 LUNA RENDON APRN Ot G43.909 MIGRAINE, UNSP, NOT INTRACTABLE, WITHOUT 02/19/2017 LUNA RENDON APRN Ot K21 .9 GASTRO-ESOPHAGEAL REFLUX DISEASE WITHOUT 02/19/2017 LUNA RENDON APRN Ot K59.09 OTHER CONSTIPATION 02/19/2017 LUNA RENDON APRN Ot M25.572 PAIN IN LEFT ANKLE AND JOINTS OF LEFT FO 02/19/2017 LUNA RENDON APRN Ot S93.402A SPRAIN OF UNSPECIFIED LIGAMENT OF LEFT A 02/19/2017 LUNA RENDON [employer]INCIPAL JAVA DEVELOPER Ot W51.XXXA ACCIDENTAL STRIKE OR BUMPED INTO BY ANOT 02/19/2017 LUNA RENDON PR[employer]IPAL JAVA DEVELOPER Ot Y92.[address] [facility] [address] [facility] 02[facility]19/2017 LUNA RENDON APRN Ot Z87.59 PERSONAL HISTORY OF COMP OF PREG, CHLDBR 02/19/2017 LUNA RENDON APRN Ot Z90.710 ACQUIRED ABSENCE OF BOTH CERVIX AND UTER 02/19/2017 LUNA RENDON APRN Ot Z90.89 ACQUIRED ABSENCE OF OTHER ORGANS 04/23/2017 Ot 629.32 EXP OSURE OF IMPLANT VAG MESH OTH PROST 04/23/2017 Ot V72.84 EXA M PRE- OPERATIVE NOS 04/23/2017 Ot V74.8 SCRE EN-BACTERIAL DIS NEC 04/23/2017 Ot 346.90 MICHAEL RITO UNSPECIFIED W/O INTRACT MGRN W/ 04/23/2017 Ot 427.89 CAR DIAC DYSRHYTHMIAS NEC 04/23/2017 Ot 346.90 MICHAEL RITO UNSPECIFIED W/O INTRACT MGRN W/ 04/23/2017 Ot 427.89 CAR DIAC DYSRHYTHMIAS NEC 04/23/2017 ROBBIE SIMMS DO Ot V76.1 2 OTH SCREEN MAMMO-MALIGN NEOPLASM OF BHARGAV 04/23/2017 CEDRICK BARCENAS Ot R10.13 EPIGASTRIC PAIN 04/23/2017 DAYANA HELLER DO Ot R11. 2 NAUSEA WITH VOMITING, UNSPECIFIED 04/23/2017 DAYANA HELLER DO Ot K82. 8 OTHER SPECIFIED DISEASES OF GALLBLADDER 04/23/2017 DAYANA HELLER DO Ot Z01.818 ENCOUNTER FOR OTHER PREPROCEDURAL EXAMIN 04/23/2017 CEDRICK BARCENAS Ot M47.812 SPONDYLOSIS W/O MYELOPATHY OR RADICULOPA 04/23/2017 CEDRICK BARCENAS Ot M54.2 CERVICALGIA 04/23/2017 ROBBIE SIMMS DO Ot Z12.3 1 ENCNTR SCREEN MAMMOGRAM FOR MALIGNANT NE 06/08/2017 Ot 629.32 EXP OSURE OF IMPLANT VAG MESH OTH PROST 06/08/2017 Ot V72.84 EXA M PRE- OPERATIVE NOS 06/08/2017 Ot V74.8 SCRE EN-BACTERIAL DIS NEC 06/08/2017 Ot 346.90 MICHAEL RITO UNSPECIFIED W/O INTRACT MGRN W/ 06/08/2017 Ot 427.89 CAR DIAC DYSRHYTHMIAS NEC 06/08/2017 Ot 346.90 MICHAEL RITO UNSPECIFIED W/O INTRACT MGRN W/ 06/08/2017 Ot 427.89 CAR DIAC DYSRHYTHMIAS NEC 06/08/2017 ROBBIE SIMMS DO Ot V76.1 2 OTH SCREEN MAMMO-MALIGN NEOPLASM OF BHARGAV 06/08/2017 CEDRICK BARCENAS Ot R10.13 EPIGASTRIC PAIN 06/08/2017 DAYANA HELLER DO Ot R11. 2 NAUSEA WITH VOMITING, UNSPECIFIED 06/08/2017 DAYANA HELLER DO Ot K82. 8 OTHER SPECIFIED DISEASES OF GALLBLADDER 06/08/2017 DAYANA HELLER DO Ot Z01.818 ENCOUNTER FOR OTHER PREPROCEDURAL EXAMIN 06/08/2017 CEDRICK BARCENAS Ot M47.812 SPONDYLOSIS W/O MYELOPATHY OR RADICULOPA 06/08/2017 CEDRICK BARCENAS Ot M54.2 CERVICALGIA 06/08/2017 ROBBIE SIMMS DO Ot Z12.3 1 ENCNTR SCREEN MAMMOGRAM FOR MALIGNANT NE 07/26/2017 Ot 629.32 EXP OSURE OF IMPLANT VAG MESH OTH PROST 07/26/2017 Ot V72.84 EXA M PRE- OPERATIVE NOS 07/26/2017 Ot V74.8 SCRE EN-BACTERIAL DIS NEC 07/26/2017 Ot 346.90 MICHAEL RITO UNSPECIFIED W/O INTRACT MGRN W/ 07/26/2017 Ot 427.89 CAR DIAC DYSRHYTHMIAS NEC 07/26/2017 Ot 346.90 MICHAEL RITO UNSPECIFIED W/O INTRACT MGRN W/ 07/26/2017 Ot 427.89 CAR DIAC DYSRHYTHMIAS NEC 07/26/2017 ROBBIE SIMMS DO Ot V76.1 2 OTH SCREEN MAMMO-MALIGN NEOPLASM OF BHARGAV 07/26/2017 CEDRICK BARCENAS Ot R10.13 EPIGASTRIC PAIN 07/26/2017 DAYANA HELLER DO Ot R11. 2 NAUSEA WITH VOMITING, UNSPECIFIED 07/26/2017 DAYANA HELLER DO Ot K82. 8 OTHER SPECIFIED DISEASES OF GALLBLADDER 07/26/2017 DAYANA HELLER DO Ot Z01.818 ENCOUNTER FOR OTHER PREPROCEDURAL EXAMIN 07/26/2017 CEDRICK BARCENAS Ot M47.812 SPONDYLOSIS W/O MYELOPATHY OR RADICULOPA 07/26/2017 CEDRICK BARCENAS Ot M54.2 CERVICALGIA 07/26/2017 ROBBIE SIMMS DO Ot Z12.3 1 ENCNTR SCREEN MAMMOGRAM FOR MALIGNANT NE 08/04/2017 Ot 629.32 EXP OSURE OF IMPLANT VAG MESH OT PROST 08/04/2017 Ot V72.84 EXA M PRE- OPERATIVE NOS 08/04/2017 Ot V74.8 SCRE EN-BACTERIAL DIS NEC 08/04/2017 Ot 346.90 MICHAEL RITO UNSPECIFIED W/O INTRACT MGRN W/ 08/04/2017 Ot 427.89 CAR DIAC DYSRHYTHMIAS NEC 08/04/2017 Ot 346.90 MICHAEL RITO UNSPECIFIED W/O INTRACT MGRN W/ 08/04/2017 Ot 427.89 CAR DIAC DYSRHYTHMIAS NEC 08/04/2017 ROBBIE SIMMS DO Ot V76.1 2 OT SCREEN MAMMO-MALIGN NEOPLASM OF BHARGAV 08/04/2017 CEDRICK BARCENAS Ot R10.13 EPIGASTRIC PAIN 08/04/2017 DAYANA HELLER DO Ot R11. 2 NAUSEA WITH VOMITING, UNSPECIFIED 08/04/2017 DAYANA HELLER DO Ot K82. 8 OTHER SPECIFIED DISEASES OF GALLBLADDER 08/04/2017 HELLER DAYANA FLORES Ot Z01.818 ENCOUNTER FOR OTHER PREPROCEDURAL EXAMIN 08/04/2017 CEDRICK BARCENAS Ot M47.812 SPONDYLOSIS W/O MYELOPATHY OR RADICULOPA 08/04/2017 CEDRICK BARCENAS Ot M54.2 CERVICALGIA 08/04/2017 ROBBIE SIMMS DO Ot Z12.3 1 ENCNTR SCREEN MAMMOGRAM FOR MALIGNANT NE 09/29/2017 Ot 346.90 MICHAEL RITO UNSPECIFIED W/O INTRACT MGRN W/ 09/29/2017 Ot 427.89 CAR DIAC DYSRHYTHMIAS NEC 09/29/2017 Ot 346.90 MICHAEL RITO UNSPECIFIED W/O INTRACT MGRN W/ 09/29/2017 Ot 427.89 CAR DIAC DYSRHYTHMIAS NEC 09/29/2017 ROBBIE SIMMS DO Ot V76.1 2 OTH SCREEN MAMMO-MALIGN NEOPLASM OF BHARGAV 09/29/2017 CEDRICK BARCENAS Ot R10.13 EPIGASTRIC PAIN 09/29/2017 DAYANA HELLER DO Ot R11. 2 NAUSEA WITH VOMITING, UNSPECIFIED 09/29/2017 DAYANA HELLER DO Ot K82. 8 OTHER SPECIFIED DISEASES OF GALLBLADDER 09/29/2017 DAYANA HELLER DO Ot Z01.818 ENCOUNTER FOR OTHER PREPROCEDURAL EXAMIN 09/29/2017 CEDRICK BARCENAS Ot M47.812 SPONDYLOSIS W/O MYELOPATHY OR RADICULOPA 09/29/2017 CEDRICK BARCENAS Ot M54.2 CERVICALGIA 09/29/2017 ROBBIE SIMMS DO Ot Z12.3 1 ENCNTR SCREEN MAMMOGRAM FOR MALIGNANT NE 11/10/2017 Ot 346.90 MICHAEL RITO UNSPECIFIED W/O INTRACT MGRN W/ 11/10/2017 Ot 427.89 CAR DIAC DYSRHYTHMIAS NEC 11/10/2017 Ot 346.90 MICHAEL RITO UNSPECIFIED W/O INTRACT MGRN W/ 11/10/2017 Ot 427.89 CAR DIAC DYSRHYTHMIAS NEC 11/10/2017 ROBBIE SIMMS DO Ot V76.1 2 OTH SCREEN MAMMO-MALIGN NEOPLASM OF BHARGAV 11/10/2017 CEDRICK BARCENAS Ot R10.13 EPIGASTRIC PAIN 11/10/2017 DAYANA HELLER DO Ot R11. 2 NAUSEA WITH VOMITING, UNSPECIFIED 11/10/2017 DAYANA HELLER DO Ot K82. 8 OTHER SPECIFIED DISEASES OF GALLBLADDER 11/10/2017 DAYANA HELLER DO Ot Z01.818 ENCOUNTER FOR OTHER PREPROCEDURAL EXAMIN 11/10/2017 CEDRICK BARCENAS Ot M47.812 SPONDYLOSIS W/O MYELOPATHY OR RADICULOPA 11/10/2017 CEDRICK BARCENAS ZHAO Ot M54.2 CERVICALGIA 11/10/2017 ROBBIE SIMMS DO [place] Ot Z12.3 1 ENCNTR SCREEN MAMMOGRAM FOR MALIGNANT NE 11/10/2017 LUNA RENDON APRN Ot E03 .9 HYPOTHYROIDISM, UNSPECIFIED 11/10/2017 LUNA RENDON APRN Ot F32 .9 MAJOR DEPRESSIVE DISORDER, SINGLE EPISOD 11/10/2017 LUNA RENDON APRN Ot G43.909 MIGRAINE, UNSP, NOT INTRACTABLE, WITHOUT 11/10/2017 LUNA RENDON APRN Ot K21 .9 GASTRO-ESOPHAGEAL REFLUX DISEASE WITHOUT 11/10/2017 LUNA RENDON APRN Ot M54.12 RADICULOPATHY, CERVICAL REGION 11/10/2017 LUNA RENDON APRN Ot M54 .2 CERVICALGIA 11/10/2017 LUNA RENDON APRN Ot Z87.19 PERSONAL HISTORY OF OTHER DISEASES OF 11/10/2017 LUNA RENDON APRN Ot Z90.710 ACQUIRED ABSENCE OF BOTH CERVIX AND UTER 11/10/2017 LUNA RENDON APRN Ot Z90.89 ACQUIRED ABSENCE OF OTHER ORGANS 11/10/2017 LUNA RENDON APRN Ot Z98.51 TUBAL LIGATION STATUS 11/12/2017 LUNA RENDON APRN Ot E03 .9 HYPOTHYROIDISM, UNSPECIFIED 11/12/2017 LUNA RENDON APRN Ot F32 .9 MAJOR DEPRESSIVE DISORDER, SINGLE EPISOD 11/12/2017 LUNA RENDON APRN Ot G43.909 MIGRAINE, UNSP, NOT INTRACTABLE, WITHOUT 11/12/2017 LUNA RENDON APRN Ot K21 .9 GASTRO-ESOPHAGEAL REFLUX DISEASE WITHOUT 11/12/2017 LUNA RENDON APRN Ot M54.12 RADICULOPATHY, CERVICAL REGION 11/12/2017 LUNA RENDON APRN Ot M54 .2 CERVICALGIA 11/12/2017 LUNA RENDON APRN Ot Z87.19 PERSONAL HISTORY OF OTHER DISEASES OF 11/12/2017 LUNA RENDON APRN Ot Z90.710 ACQUIRED ABSENCE OF BOTH CERVIX AND UTER 11/12/2017 LUNA RENDON APRN Ot Z90.89 ACQUIRED ABSENCE OF OTHER ORGANS 11/12/2017 LUNA RENDON APRN Ot Z98.51 TUBAL LIGATION STATUS 11/12/2017 LUNA RENDON PRINCIPAL JAVA DEVELOPER Ot E03 .9 HYPOTHYROIDISM, UNSPECIFIED 11/12/2017 LUNA RENDON PR[employer]IPAL JAVA DEVELOPER Ot F32 .9 MAJOR DEPRESSIVE DISORDER, SINGLE EPISOD 11/12/2017 LUNA RENDON APRN Ot G43.909 MIGRAINE, UNSP, NOT INTRACTABLE, WITHOUT 11/12/2017 LUNA RENDON APRN Ot K21 .9 GASTRO-ESOPHAGEAL REFLUX DISEASE WITHOUT 11/12/2017 LUNA RENDON APRN Ot M54.12 RADICULOPATHY, CERVICAL REGION 11/12/2017 LUNA RENDON APRN Ot M54 .2 CERVICALGIA 11/12/2017 LUNA RENDON APRN Ot Z87.19 PERSONAL HISTORY OF OTHER DISEASES OF TH 11/12/2017 LUNA RENDON APRN Ot Z90.710 ACQUIRED ABSENCE OF BOTH CERVIX AND UTER 11/12/2017 LUNA RENDON APRN Ot Z90.89 ACQUIRED ABSENCE OF OTHER ORGANS 11/12/2017 LUNA RENDON APRN Ot Z98.51 TUBAL LIGATION STATUS 02/11/2018 Ot 346.90 MICHAEL RITO UNSPECIFIED W/O INTRACT MGRN W/ 02/11/2018 Ot 427.89 CAR DIAC DYSRHYTHMIAS NEC 02/11/2018 Ot 346.90 MICHAEL RITO UNSPECIFIED W/O INTRACT MGRN W/ 02/11/2018 Ot 427.89 CAR DIAC DYSRHYTHMIAS NEC 02/11/2018 ROBBIE SIMMS DO Ot V76.1 2 OTH SCREEN MAMMO-MALIGN NEOPLASM OF BHARGAV 02/11/2018 CEDRICK BARCENAS Ot R10.13 EPIGASTRIC PAIN 02/11/2018 DAYANA HELLER DO Ot R11. 2 NAUSEA WITH VOMITING, UNSPECIFIED 02/11/2018 DAYANA HELLER DO Ot K82. 8 OTHER SPECIFIED DISEASES OF GALLBLADDER 02/11/2018 DAYANA HELLER DO Ot Z01.818 ENCOUNTER FOR OTHER PREPROCEDURAL EXAMIN 02/11/2018 CEDRICK BARCENAS Ot M47.812 SPONDYLOSIS W/O MYELOPATHY OR RADICULOPA 02/11/2018 CEDRICK BARCENAS Ot M54.2 CERVICALGIA 02/11/2018 ROBBIE SIMMS DO Ot Z12.3 1 ENCNTR SCREEN MAMMOGRAM FOR MALIGNANT NE 02/12/2018 Ot 346.90 MICHAEL RITO UNSPECIFIED W/O INTRACT MGRN W/ 02/12/2018 Ot 427.89 CAR DIAC DYSRHYTHMIAS NEC 02/12/2018 Ot 346.90 MICHAEL RITO UNSPECIFIED W/O INTRACT MGRN W/ 02/12/2018 Ot 427.89 CAR DIAC DYSRHYTHMIAS NEC 02/12/2018 ROBBIE SIMMS DO Ot V76.1 2 OTH SCREEN MAMMO-MALIGN NEOPLASM OF BHARGAV 02/12/2018 CEDRICK BARCENAS Ot R10.13 EPIGASTRIC PAIN 02/12/2018 DAYANA HELLER DO Ot R11. 2 NAUSEA WITH VOMITING, UNSPECIFIED 02/12/2018 DAYANA HELLER DO Ot K82. 8 OTHER SPECIFIED DISEASES OF GALLBLADDER 02/12/2018 DAYANA HELLER DO Ot Z01.818 ENCOUNTER FOR OTHER PREPROCEDURAL EXAMIN 02/12/2018 CEDRICK BARCENAS Ot M47.812 SPONDYLOSIS W/O MYELOPATHY OR RADICULOPA 02/12/2018 CEDRICK BARCENAS Ot M54.2 CERVICALGIA 02/12/2018 ROBBIE SIMMS DO Ot Z12.3 1 ENCNTR SCREEN MAMMOGRAM FOR MALIGNANT NE 03/04/2018 Ot 346.90 MICHAEL RITO UNSPECIFIED W/O INTRACT MGRN W/ 03/04/2018 Ot 427.89 CAR DIAC DYSRHYTHMIAS NEC 03/04/2018 Ot 346.90 MICHAEL RITO UNSPECIFIED W/O INTRACT MGRN W/ 03/04/2018 Ot 427.89 CAR DIAC DYSRHYTHMIAS NEC 03/04/2018 ROBBIE SIMMS DO Ot V76.1 2 OTH SCREEN MAMMO-MALIGN NEOPLASM OF BHARGAV 03/04/2018 CEDRICK BARCENAS Ot R10.13 EPIGASTRIC PAIN 03/04/2018 DAYANA HELLER DO Ot R11. 2 NAUSEA WITH VOMITING, UNSPECIFIED 03/04/2018 DAYANA HELLER DO Ot K82. 8 OTHER SPECIFIED DISEASES OF GALLBLADDER 03/04/2018 DAYANA HELLER DO Ot Z01.818 ENCOUNTER FOR OTHER PREPROCEDURAL EXAMIN 03/04/2018 CEDRICK BARCENAS Ot M47.812 SPONDYLOSIS W/O MYELOPATHY OR RADICULOPA 03/04/2018 CEDRICK BARCENAS Ot M54.2 CERVICALGIA 03/04/2018 ROBBIE SIMMS DO Ot Z12.3 1 ENCNTR SCREEN MAMMOGRAM FOR MALIGNANT NE 03/04/2018 LAURA LE MD Ot E03.9 HYPOTHYROIDISM, UNSPECIFIED 03/04/2018 LAURA LE MD Ot F17.210 NICOTINE DEPENDENCE, CIGARETTES, UNCOMPL 03/04/2018 LAURA LE MD Ot F32.9 MAJOR DEPRESSIVE DISORDER, SINGLE EPISOD 03/04/2018 LAURA LE MD Ot G43.909 MIGRAINE, UNSP, NOT INTRACTABLE, WITHOUT 03/04/2018 LAURA LE MD Ot K21.9 GASTRO-ESOPHAGEAL REFLUX DISEASE WITHOUT 03/04/2018 LAURA LE MD Ot R11.2 NAUSEA WITH VOMITING, UNSPECIFIED 03/04/2018 LAURA LE MD Ot Z79.51 FDC (CURRENT) USE OF INHALED STERO 03/04/2018 LAURA LE MD Ot Z87.19 PERSONAL HISTORY OF OTHER DISEASES OF TH 03/04/2018 LAURA LE MD Ot Z90.710 ACQUIRED ABSENCE OF BOTH CERVIX AND UTER 03/04/2018 LAURA LE MD Ot Z90.89 ACQUIRED ABSENCE OF OTHER ORGANS 03/04/2018 LAURA LE MD Ot Z98.51 TUBAL LIGATION STATUS 03/08/2018 LAURA LE MD Ot E03.9 HYPOTHYROIDISM, UNSPECIFIED 03/08/2018 LAURA LE MD Ot F17.210 NICOTINE DEPENDENCE, CIGARETTES, UNCOMPL 03/08/2018 LAURA LE MD Ot F32.9 MAJOR DEPRESSIVE DISORDER, SINGLE EPISOD 03/08/2018 LAURA LE MD Ot G43.909 MIGRAINE, UNSP, NOT INTRACTABLE, WITHOUT 03/08/2018 LAURA LE MD Ot K21.9 GASTRO-ESOPHAGEAL REFLUX DISEASE WITHOUT 03/08/2018 LAURA LE MD Ot R11.2 NAUSEA WITH VOMITING, UNSPECIFIED 03/08/2018 LAURA LE MD, Ot Z79.51 FDC (CURRENT) USE OF INHALED STERO 03/08/2018 LAURA LE MD Ot Z87.19 PERSONAL HISTORY OF OTHER DISEASES OF TH 03/08/2018 LAURA LE MD, Ot Z90.710 ACQUIRED ABSENCE OF BOTH CERVIX AND UTER 03/08/2018 LAURA LE MD, Ot Z90.89 ACQUIRED ABSENCE OF OTHER ORGANS 03/08/2018 LAURA LE MD, Ot Z98.51 TUBAL LIGATION STATUS 03/18/2018 Ot 346.90 MICHAEL RITO UNSPECIFIED W/O INTRACT MGRN W/ 03/18/2018 Ot 427.89 CAR DIAC DYSRHYTHMIAS NEC 03/18/2018 Ot 346.90 MICHAEL RITO UNSPECIFIED W/O INTRACT MGRN W/ 03/18/2018 Ot 427.89 CAR DIAC DYSRHYTHMIAS NEC 03/18/2018 ROBBIE SIMMS DO Ot V76.1 2 OTH SCREEN MAMMO-MALIGN NEOPLASM OF BHARGAV 03/18/2018 CEDRICK BARCENAS Ot R10.13 EPIGASTRIC PAIN 03/18/2018 DAYANA HELLER DO Ot R11. 2 NAUSEA WITH VOMITING, UNSPECIFIED 03/18/2018 DAYANA HELLER DO Ot K82. 8 OTHER SPECIFIED DISEASES OF GALLBLADDER 03/18/2018 DAYANA HELLER DO Ot Z01.818 ENCOUNTER FOR OTHER PREPROCEDURAL EXAMIN 03/18/2018 CEDRICK BARCENAS Ot M47.812 SPONDYLOSIS W/O MYELOPATHY OR RADICULOPA 03/18/2018 CEDRICK BARCENAS Ot M54.2 CERVICALGIA 03/18/2018 ROBBIE SIMMS DO Ot Z12.3 1 ENCNTR SCREEN MAMMOGRAM FOR MALIGNANT NE 03/23/2018 LAURA HARRISON Ot M47.812 SPONDYLOSIS W/O MYELOPATHY OR RADICULOPA 03/23/2018 LAURA HARRISON Ot M99. 71 CONN TISS AND DISC STENOSIS OF INTVRT FO 03/23/2018 Ot 346.90 MICHAEL RITO UNSPECIFIED W/O INTRACT MGRN W/ 03/23/2018 Ot 427.89 CAR DIAC DYSRHYTHMIAS NEC 03/23/2018 Ot 346.90 MICHAEL RITO UNSPECIFIED W/O INTRACT MGRN W/ 03/23/2018 Ot 427.89 CAR DIAC DYSRHYTHMIAS NEC 03/23/2018 ROBBIE SIMMS DO Ot V76.1 2 OTH SCREEN MAMMO-MALIGN NEOPLASM OF BHARGAV 03/23/2018 CEDRICK BARCENAS Ot R10.13 EPIGASTRIC PAIN 03/23/2018 DAYANA HELLER DO Ot R11. 2 NAUSEA WITH VOMITING, UNSPECIFIED 03/23/2018 DAYANA HELLER DO Ot K82. 8 OTHER SPECIFIED DISEASES OF GALLBLADDER 03/23/2018 DAYANA HELLER DO Ot Z01.818 ENCOUNTER FOR OTHER PREPROCEDURAL EXAMIN 03/23/2018 CEDRICK BARCENAS Ot M47.812 SPONDYLOSIS W/O MYELOPATHY OR RADICULOPA 03/23/2018 CEDRICK BARCENAS Ot M54.2 CERVICALGIA 03/23/2018 ROBBIE SIMMS DO Ot Z12.3 1 ENCNTR SCREEN MAMMOGRAM FOR MALIGNANT NE 03/23/2018 LAURA HARRISON Ot M47.812 SPONDYLOSIS W/O MYELOPATHY OR RADICULOPA 03/23/2018 LAURA HARRISON Ot M99. 71 CONN TISS AND DISC STENOSIS OF INTVRT FO 03/23/2018 Ot 346.90 MICHAEL RITO UNSPECIFIED W/O INTRACT MGRN W/ 03/23/2018 Ot 427.89 CAR DIAC DYSRHYTHMIAS NEC 03/23/2018 Ot 346.90 MICHAEL RITO UNSPECIFIED W/O INTRACT MGRN W/ 03/23/2018 Ot 427.89 CAR DIAC DYSRHYTHMIAS NEC 03/23/2018 ROBBIE SIMMS DO Ot V76.1 2 OTH SCREEN MAMMO-MALIGN NEOPLASM OF BHARGAV 03/23/2018 CEDRICK BARCENAS Ot R10.13 EPIGASTRIC PAIN 03/23/2018 HELLER DAYANA FLORES Ot R11. 2 NAUSEA WITH VOMITING, UNSPECIFIED 03/23/2018 DAYANA HELLER DO Ot K82. 8 OTHER SPECIFIED DISEASES OF GALLBLADDER 03/23/2018 HELLER DAYANA FLORES Ot Z01.818 ENCOUNTER FOR OTHER PREPROCEDURAL EXAMIN 03/23/2018 CEDRICK BARCENAS Ot M47.812 SPONDYLOSIS W/O MYELOPATHY OR RADICULOPA 03/23/2018 CEDRICK BARCENAS Ot M54.2 CERVICALGIA 03/23/2018 ROBBIE SIMMS DO Ot Z12.3 1 ENCNTR SCREEN MAMMOGRAM FOR MALIGNANT NE 03/23/2018 LAURA HARRISON Ot M47.812 SPONDYLOSIS W/O MYELOPATHY OR RADICULOPA 03/23/2018 LAURA HARRISON Ot M99. 71 CONN TISS AND DISC STENOSIS OF INTVRT FO 05/06/2018 LAURA HARRISON Ot M54. 12 RADICULOPATHY, CERVICAL REGION 05/07/2018 LAURA HARRISON Ot M54. 12 RADICULOPATHY, CERVICAL REGION 05/20/2018 Ot 346.90 MICHAEL RITO UNSPECIFIED W/O INTRACT MGRN W/ 05/20/2018 Ot 427.89 CAR DIAC DYSRHYTHMIAS NEC 05/20/2018 Ot 346.90 MICHAEL RITO UNSPECIFIED W/O INTRACT MGRN W/ 05/20/2018 Ot 427.89 CAR DIAC DYSRHYTHMIAS NEC 05/20/2018 ROBBIE SIMMS DO Ot V76.1 2 OTH SCREEN MAMMO-MALIGN NEOPLASM OF BHARGAV 05/20/2018 CEDRICK BARCENAS Ot R10.13 EPIGASTRIC PAIN 05/20/2018 DAYANA HELLER DO Ot R11. 2 NAUSEA WITH VOMITING, UNSPECIFIED 05/20/2018 DAYANA HELLER DO Ot K82. 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 71 CONN TISS AND DISC STENOSIS OF INTVRT FO 05/20/2018 LAURA HARRISON Ot M54. 12 RADICULOPATHY, CERVICAL REGION 05/21/2018 Ot 346.90 MICHAEL RITO UNSPECIFIED W/O INTRACT MGRN W/ 05/21/2018 Ot 427.89 CAR DIAC DYSRHYTHMIAS NEC 05/21/2018 Ot 346.90 MICHAEL RITO UNSPECIFIED W/O INTRACT MGRN W/ 05/21/2018 Ot 427.89 CAR DIAC DYSRHYTHMIAS NEC 05/21/2018 ROBBIE SIMMS DO Ot V76.1 2 OTH SCREEN MAMMO-MALIGN NEOPLASM OF BHARGAV 05/21/2018 CEDRICK BARCENAS Ot R10.13 EPIGASTRIC PAIN 05/21/2018 DAYANA HELLER DO Ot R11. 2 NAUSEA WITH VOMITING, UNSPECIFIED 05/21/2018 DAYANA HELLER DO Ot K82. 8 OTHER SPECIFIED DISEASES OF GALLBLADDER 05/21/2018 DAYANA HELLER DO Ot Z01.818 ENCOUNTER FOR OTHER PREPROCEDURAL EXAMIN 05/21/2018 CEDRICK BARCENAS Ot M47.812 SPONDYLOSIS W/O MYELOPATHY OR RADICULOPA 05/21/2018 CEDRICK BARCENAS Ot M54.2 CERVICALGIA 05/21/2018 ROBBIE SIMMS DO Ot Z12.3 1 ENCNTR SCREEN MAMMOGRAM FOR MALIGNANT NE 05/21/2018 LAURA HARRISON Ot M47.812 SPONDYLOSIS W/O MYELOPATHY OR RADICULOPA 05/21/2018 LAURA HARRISON Ot M99. 71 CONN TISS AND DISC STENOSIS OF INTVRT FO 05/21/2018 LAURA HARRISON Ot M54. 12 RADICULOPATHY, CERVICAL REGION 05/28/2018 LAURA HARRISON Ot M54. 12 RADICULOPATHY, CERVICAL REGION 05/31/2018 Ot 346.90 MICHAEL RITO UNSPECIFIED W/O INTRACT MGRN W/ 05/31/2018 Ot 427.89 CAR DIAC DYSRHYTHMIAS NEC 05/31/2018 Ot 346.90 MICHAEL RITO UNSPECIFIED W/O INTRACT MGRN W/ 05/31/2018 Ot 427.89 CAR DIAC DYSRHYTHMIAS NEC 05/31/2018 ROBBIE SIMMS DO Ot V76.1 2 OTH SCREEN MAMMO-MALIGN NEOPLASM OF BHARGAV 05/31/2018 CEDRICK BARCENAS Ot R10.13 EPIGASTRIC PAIN 05/31/2018 DAYANA HELLER DO Ot R11. 2 NAUSEA WITH VOMITING, UNSPECIFIED 05/31/2018 DAYANA HELLER DO Ot K82. 8 OTHER SPECIFIED DISEASES OF GALLBLADDER 05/31/2018 DAYANA HELLER DO Ot Z01.818 ENCOUNTER FOR OTHER PREPROCEDURAL EXAMIN 05/31/2018 CEDRICK BARCENAS Ot M47.812 SPONDYLOSIS W/O MYELOPATHY OR RADICULOPA 05/31/2018 CEDRICK BARCENAS Ot M54.2 CERVICALGIA 05/31/2018 ROBBIE SIMMS DO Ot Z12.3 1 ENCNTR SCREEN MAMMOGRAM FOR MALIGNANT NE 05/31/2018 LAURA HARRISON Ot M47.812 SPONDYLOSIS W/O MYELOPATHY OR RADICULOPA 05/31/2018 LAURA HARRISON Ot M99. 71 CONN TISS AND DISC STENOSIS OF INTVRT FO 12/10/2018 LAURA HARRISON R Ot M47.812 SPONDYLOSIS W/O MYELOPATHY OR RADICULOPA 12/10/2018 LAURA HARRISON R Ot M99. 71 CONN TISS AND DISC STENOSIS OF INTVRT FO 04/24/2019 ROBBIE SIMMS DO Ot V76.1 2 OTH SCREEN MAMMO-MALIGN NEOPLASM OF BHARGAV 04/24/2019 CEDRICK BARCENAS Ot R10.13 EPIGASTRIC PAIN 04/24/2019 DAYANA HELLER DO Ot R11. 2 NAUSEA WITH VOMITING, UNSPECIFIED 04/24/2019 DAYANA HELLER DO D Ot K82. 8 OTHER SPECIFIED DISEASES OF GALLBLADDER 04/24/2019 HELLER DODAYANA D Ot Z01.818 ENCOUNTER FOR OTHER PREPROCEDURAL EXAMIN 04/24/2019 CEDRICK BARCENASP Ot M47.812 SPONDYLOSIS W/O MYELOPATHY OR RADICULOPA 04/24/2019 CEDRICK BARCENASP Ot M54.2 CERVICALGIA 04/24/2019 ROBBIE SIMMS DO Ot Z12.3 1 ENCNTR SCREEN MAMMOGRAM FOR MALIGNANT NE 04/24/2019 WES SIMMS DOA Yesenia Ot V76.1 2 OTH SCREEN MAMMO-MALIGN NEOPLASM OF BHARGAV 04/24/2019 CEDRICK BARCENASP Ot R10.13 EPIGASTRIC PAIN 04/24/2019 HELLER DAYANA FLORES D Ot R11. 2 NAUSEA WITH VOMITING, UNSPECIFIED 04/24/2019 TOPE[place] DODAYANA D Ot K82. 8 OTHER SPECIFIED DISEASES OF GALLBLADDER 04/24/2019 HELLER DODAYANA Ot Z01.818 ENCOUNTER FOR OTHER PREPROCEDURAL EXAMIN 04/24/2019 CEDRICK BARCENASP Ot M47.812 SPONDYLOSIS W/O MYELOPATHY OR RADICULOPA 04/24/2019 CEDRICK BARCENAS Ot M54.2 CERVICALGIA 04/24/2019 ROBBIE SIMMS DO Ot Z12.3 1 ENCNTR SCREEN MAMMOGRAM FOR MALIGNANT NE 05/31/2019 WES SIMMS DOA C Ot V76.1 2 OTH SCREEN MAMMO-MALIGN NEOPLASM OF BHARGAV 05/31/2019 CEDRICK BARCENASP Ot R10.13 EPIGASTRIC PAIN 05/31/2019 TOPEKA MIRIAN FLORESTT D Ot R11. 2 NAUSEA WITH VOMITING, UNSPECIFIED 05/31/2019 HELLER DODAYANA D Ot K82. 8 OTHER SPECIFIED DISEASES OF GALLBLADDER 05/31/2019 HELLER DODAYANA D Ot Z01.818 ENCOUNTER FOR OTHER PREPROCEDURAL EXAMIN 05/31/2019 CEDRICK BARCENASP Ot M47.812 SPONDYLOSIS W/O MYELOPATHY OR RADICULOPA 05/31/2019 CEDRICK BARCENASP Ot M54.2 CERVICALGIA 05/31/2019 ROBBIE SIMMS DO Ot Z12.3 1 ENCNTR SCREEN MAMMOGRAM FOR MALIGNANT NE 05/31/2019 LAURA LE MD, Ot E03.9 HYPOTHYROIDISM, UNSPECIFIED 05/31/2019 LAURA LE MD Ot F17.210 NICOTINE DEPENDENCE, CIGARETTES, UNCOMPL 05/31/2019 LAURA LE MD Ot F32.9 MAJOR DEPRESSIVE DISORDER, SINGLE EPISOD 05/31/2019 LAURA LE MD Ot G43.909 MIGRAINE, UNSP, NOT INTRACTABLE, WITHOUT 05/31/2019 LAURA LE MD Ot K21.9 GASTRO-ESOPHAGEAL REFLUX DISEASE WITHOUT 05/31/2019 LAURA LE MD Ot M54.5 LOW BACK PAIN 05/31/2019 LAURA LE MD Ot M79.7 FIBROMYALGIA 05/31/2019 LAURA LE MD Ot S39.012A STRAIN OF MUSCLE, FASCIA AND TENDON OF L 05/31/2019 LAURA LE MD Ot X50.1XXA OVEREXERTION FROM PROLONGED STATIC OR AW 05/31/2019 LAURA LE MD Ot Y92.[address] IN GROUP HOME PLACE 05/31/2019 LAURA LE MD, Ot Z88.8 ALLERGY STATUS TO OTH DRUG/MEDS/BIOL SUB 05/31/2019 LAURA LE MD Ot Z90.710 ACQUIRED ABSENCE OF BOTH CERVIX AND UTER 05/31/2019 LAURA LE MD Ot Z98.51 TUBAL LIGATION STATUS 06/03/2019 LAURA LE MD, Ot E03.9 HYPOTHYROIDISM, UNSPECIFIED 06/03/2019 LAURA LE MD Ot F17.210 NICOTINE DEPENDENCE, CIGARETTES, UNCOMPL 06/03/2019 LAURA LE MD Ot F32.9 MAJOR DEPRESSIVE DISORDER, SINGLE EPISOD 06/03/2019 LAURA LE MD Ot G43.909 MIGRAINE, UNSP, NOT INTRACTABLE, WITHOUT 06/03/2019 LAURA LE MD Ot K21.9 GASTRO-ESOPHAGEAL REFLUX DISEASE WITHOUT 06/03/2019 LAURA LE MD, Ot M54.5 LOW BACK PAIN 06/03/2019 LAURA LE MD, Ot M79.7 FIBROMYALGIA 06/03/2019 LAURA LE MD, Ot S39.012A STRAIN OF MUSCLE, FASCIA AND TENDON OF L 06/03/2019 LAURA LE MD, Ot X50.1XXA OVEREXERTION FROM PROLONGED STATIC OR AW 06/03/2019 LAURA LE MD, Ot Y92.[address] IN GROUP HOME PLACE 06/03/2019 LAURA LE MD, Ot Z88.8 ALLERGY STATUS TO OTH DRUG/MEDS/BIOL SUB 06/03/2019 LAURA LE MD, Ot Z90.710 ACQUIRED ABSENCE OF BOTH CERVIX AND UTER 06/03/2019 LAURA LE MD, Ot Z98.51 TUBAL LIGATION STATUS Procedures Code Description Performed By Per formed On 59.79 URIN INCONTIN REPAIR NEC 01/14/2011 65.61 OTH REMOVE BOTH OVARIES/TUBES 01/14/[address] VAG HYSTER([facility]) 01/14/2011 70.51 CYST OCELE REPAIR 01/14/2011 45223 ROUT INE VENIPUNCTURE 08/19/2012 71917 A1C (IN-HOUSE) 08/19/2012 48245 CBC 08/19/2012 57323 CMP 08/19/2012 81876 LIPI D PANEL 08/19/2012 7857414 GF R CALC (RESULT ONLY) 08/19/2012 01857 BNP 08/19/2012 03556 TSH 08/19/2012 43856 CRP HS (CARDIO) 08/19/2012 17696 EKG, TRACING (IN-HOUSE) 08/19/2012 CARDI BAQI R, REYNALDO 08/19/2012 05919 MELARA ER MONITOR 11/16/2012 50253 PULM ONARY FUNCTION TEST 12/06/2012 80930 PULM ONARY FUNCTION TEST (IN- HOUSE) 01/28/2013 25111 RESP IRATORY FLOW VOLUME LOOP 01/28/2013 83746 PULM ONARY EDUCATION 01/28/2013 19184 URIN E DRUG SCREEN (IN-HOUSE) 08/11/2013 07828 THER APUTIC INJ SQ/IM 08/11/2013 J2550 PHEN ERGAN INJECTION UP TO 50 MG 08/11/2013 J1885 MEGHAN DOL INJ 08/11/2013 96976 ROUT INE VENIPUNCTURE 08/16/2013 72630 CBC 08/16/2013 18225 ROUT INE VENIPUNCTURE 08/24/2013 9792967 GF R CALC (RESULT ONLY) 08/24/2013 58860 CMP 08/24/2013 47594 LIPI D PANEL 08/24/2013 12521 TSH 08/24/2013 36038 ROUT INE VENIPUNCTURE 10/19/2013 17708 TSH 10/19/2013 94288 ROUT INE VENIPUNCTURE 11/10/2013 69652 XRAY CERVICAL SPINE, 2 OR 3 VIEWS 11/10/2013 52516 OXIMETRY 11/10/2013 43719 URIC ACID 11/10/2013 83405 CRP 11/10/2013 10187 ASO 11/11/2013 91025 RA FACTOR 11/11/2013 ANAANA PIOTR ANALYZER (SCREEN) 11/11/2013 98649 ROUT INE VENIPUNCTURE 04/10/2014 85819 BONE MINERAL DENSITY, HEEL US (IN HOUSE) 04/10/2014 84237 CBC 04/10/2014 1332018 GF R CALC (RESULT ONLY) 04/10/2014 41381 CMP 04/10/2014 68962 LIPI D PANEL 04/10/2014 27849 TSH 04/10/2014 56373 A1C (RML) 04/11/2014 10651 AMERITOX 04/12/2014 05639 SLEE P STUDY (HOSPITAL- SLEEP STUDY) 04/19/2014 Results Test Result Range Comp. Metabolic Panel (14) - 04/30/16 09 :19 Glucose, Serum 127 mg/dL 65-99 BUN 11 mg/dL 6-24 Creatinine, Serum 0.77 mg/dL 0.57-1.00 eGFR If NonAfricn Am 91 mL/min/1.73 >59 eGFR If Africn Am 105 mL/min/1.73 >5 9 BUN/Creatinine Ratio 14 9-23 Sodium, Serum 144 [...] Authorization - 04/30/16 09:19 Written Authorization Comment TSH - 06/22/17 16:11 TSH 0.10 mIU/L NRG TSH w/ FREE T4 - 08/12/17 17:26 TSH 0.25 mIU/L NRG T4, FREE 1.3 ng/dL 0.8-1.8 LIPID PANEL - 03/19/18 08:30 CHOLESTEROL, TOTAL 216 mg/dL <200 HDL CHOLESTEROL 41 mg/dL >50 TRIGLYCERIDES 193 mg/dL <150 LDL-CHOLESTEROL 142 mg/dL (calc) NRG CHOL/HDLC RATIO 5.3 (calc) <5.0 NON HDL CHOLESTEROL 175 mg/dL (calc) <13 0 CRP, CARDIAC - 03/19/18 08:30 HS CRP 3.1 mg/L NRG TSH w/ FREE T4 - 09/22/18 12:18 TSH 0.12 mIU/L NRG T4, FREE 1.3 ng/dL 0.8-1.8 Encounters ACCT No. Visit Date/Time Discharge Status Pt. Type Provider Facility Loc./Unit Complaint [id number] 09/18/2014 16:01:00 09/18/2014 23:59: 59 CLS Outpatient CEDRICK BARCENAS APRN [id number] 06/27/2014 14:49:00 06/27/2014 23:59: 59 CLS Outpatient NARINDER PRINCIPAL JAVA DEVELOPERCEDRICK S [id number] 04/19/2014 13:27:00 04/19/2014 23:59: 59 CLS Outpatient NARINDER MONTANANYURYA S [id number] 04/10/2014 12:06:00 04/10/2014 23:59: 59 CLS Outpatient NARINDER MONTANANYURYA S [id number] 01/17/2014 13:53:00 01/17/2014 23:59: 59 CLS Outpatient NARINDER PRINCIPAL JAVA DEVELOPERYURYA S [id number] 11/10/2013 12:50:00 11/10/2013 23:59: 59 CLS Outpatient NARINDER PRINCIPAL JAVA DEVELOPERMIRIANCEDRICK S [id number] 10/19/2013 15:04:00 10/19/2013 23:59: 59 CLS Outpatient NARINDER PRINCIPAL JAVA DEVELOPERYURYA S [id number] 08/24/2013 08:51:00 08/24/2013 23:59: 59 CLS Outpatient NARINDER MONTANANYURYA S [id number] 08/16/2013 11:48:00 08/16/2013 23:59: 59 CLS Outpatient NARINDER MONTANANYURYA S [id number] 08/11/2013 11:52:00 08/11/2013 23:59: 59 CLS Outpatient YURY BARCENAS APRNA S [id number] 04/21/2013 14:10:00 04/21/2013 23:59: 59 CLS Outpatient MARBIN CARY DO [id number] 02/17/2013 12:23:00 02/17/2013 23:59: 59 CLS Outpatient YURY BARCENAS APRNA S [id number] 08/19/2012 15:05:00 08/19/2012 23:59: 59 CLS Outpatient MARBIN CARY DO [id number] 06/22/2012 13:32:00 06/22/2012 23:59: 59 CLS Outpatient NARINDERYURY MARTÍNEZ APRNA S [id number] 02/23/2012 12:21:00 02/23/2012 23:59:5 9 CLS Outpatient EUGENE ELI SEGURA [id number] 01/28/2013 13:06:00 Document Registration [id number] 11/30/2012 13:29:00 Document Registration [id number] 11/12/2012 13:21:00 Document Registration [id number] 10/21/2012 18:05:00 Document Registration [id number] 05/31/2019 13:33:00 14:09:00 DIS Emergency LAURA LE MD [facility] ER BACK PAIN [id number] 11/12/2018 11:08:00 23:59:59 CLS Preadmit CEDRICK BARCENAS [facility] RAD SCREENING [id number] 05/14/2018 15:59:00 018 13:24:00 DIS Outpatient LAURA HARRISON R [facility] REHAB CERVICAL RADICULOPATHY [id number] 03/20/2018 10:09:00 23:59:59 CLS Outpatient LAURA HARRISON R [facility] RAD NECK PAIN [id number] 03/04/2018 17:27:00 018 19:01:00 DIS Emergency LAURA LE MD [facility] ER MIGRAINE [id number] 11/10/2017 19:31:00 018 21:37:00 DIS Emergency LUNA RENDON PRINCIPAL JAVA DEVELOPER [facility] ER NECK PAIN [id number] 06/23/2017 11:23:00 018 23:59:59 CLS Preadmit CEDRICK BARCENASP [facility] REHAB BACK AND NECK PAIN [id number] 02/17/2017 20:26:00 017 21:14:00 DIS Emergency LUNA RENDON PRINCIPAL JAVA DEVELOPER [facility] ER ANKLE PAIN [id number] 10/14/2016 14:18:00 017 23:59:59 CLS Outpatient ROBBIE SIMMS DO [facility] RAD SCREENING [id number] 09/19/2016 13:00:00 017 23:59:59 CLS Outpatient CEDRICK BARCENAS MANAGEMENT INSTRUCTOR [facility] RAD CERVICALGIA [id number] 07/23/2016 13:47:00 017 23:59:59 CLS Preadmit CEDRICK BARCENAS [facility] REHAB BACK PAIN [id number] 04/27/2015 05:58:00 14:37:00 DIS Outpatient DAYANA HELLER DO [facility] SDC BILIARY DYSKNESIA [id number] 04/25/2015 11:25:00 23:59:59 CLS Outpatient DAYANA HELLER DO [facility] PREOP DILIARY DYSKNESIA [id number] 04/25/2015 11:11:00 23:59:59 CLS Outpatient DAYANA HELLER DO [facility] RAD N/V [id number] 04/22/2015 22:41:00 02:17:00 DIS Emergency SHAYE JIMENEZ DO [facility] ER GALLBLADDER PAIN [id number] 04/19/2015 10:39:00 23:59:59 CLS Outpatient CEDRICK BARCENAS [facility] RAD EPIGASTIC PAIN [id number] 01/08/2015 11:00:00 015 00:01:00 DIS Outpatient CEDRICK BARCENAS [facility] CARD BRADYCARDIA [id number] 09/15/2014 12:44:00 015 14:27:00 DIS Emergency LUNA RENDON APRN [facility] ER BODYACHES DIARRHEA [id number] 01/25/2014 14:54:00 014 23:59:59 CLS Outpatient ROBBIE SIMMS DO [facility] RAD ROUTINE [id number] 12/09/2013 15:28:00 014 23:59:59 CLS Outpatient [id number] 08/18/2013 09:15:00 014 16:39:00 DIS Outpatient CEDRICK BARCENAS MANAGEMENT INSTRUCTOR [facility] REHAB LOW BACK PAIN [id number] 11/19/2012 09:17:00 013 00:01:00 DIS Outpatient CEDRICK BARCENASP [facility] CARD BRADYCARDIA [id number] 11/16/2012 10:50:00 013 00:01:00 DIS Outpatient YURY BARCENASA MANAGEMENT INSTRUCTOR [facility] CARD BRADYCARDIA,SEVERE MIGR AINES [id number] 01/05/2013 21:13:00 013 06:20:00 DIS Outpatient CEDRICK BARCENAS [facility] SLEEP SNORING,HAVING EPISODES OF BRADYCARDIA [id number] 11/09/2012 12:35:00 19:25:00 DIS Outpatient JARRET VERMA FACC, MELONIE SOLITARIO CC DS [facility] CATH CHEST PAIN,SOB,BRADYCARDIA, [id number] 04/11/2015 15:42:00 Document Registration [id number] 02/18/2013 09:00:00 Document Registration [id number] 02/15/2013 10:00:00 Document Registration [id number] 03/09/2012 05:55:00 Document Registration [id number] 03/03/2012 13:06:00 Document Registration [id number] 08/25/2011 09:50:00 Document Registration [id number] 01/14/2011 05:50:00 Document Registration [id number] 01/09/2011 08:48:00 Document Registration [id number] 11/07/2010 09:43:00 Document Registration [id number] 10/14/2010 08:35:00 Document Registration [id number] 09/09/2010 17:06:00 Document Registration [id number] 08/21/2010 11:07:00 Document Registration [id number] 04/16/2010 14:16:00 Document Registration [id number] 01/07/2010 13:14:00 Document Registration [id number] 07/14/2019 15:40:00 07/14/2019 23:59:5 9 CLS Outpatient CEDRICK BARCENAS APRN [facility] [id number] 09/22/2018 11:20:00 Document Registration [id number] 03/19/2018 09:20:00 Document Registration [id number] 08/12/2017 17:00:00 Document Registration [id number] 06/22/2017 15:00:00 Document Registration [id number] 05/01/2016 08:08:00 Document Registration [id number] 05/03/2016 07:06:00 Document Registration
[2019-10-01 11:34] LABS: BILIRUBIN,URINE NEGATIVE (NEGATIVE); CLARITY,URINE CLEAR; COLOR,URINE YELLOW; GLUCOSE, URINE (UA) NEGATIVE (NEGATIVE); KETONES,URINE NEGATIVE (NEGATIVE); LEUKOCYTE ESTERASE ,URINE NEGATIVE (NEGATIVE); NITRITE,URINE NEGATIVE (NEGATIVE); PH,URINE 5.5 (5-9); PROTEIN,URINE NEGATIVE (NEGATIVE)
[2019-10-01 11:51] LABS: AMPHETAMINE SCREEN, URINE NEGATIVE (NEGATIVE); BARBITURATE SCREEN URINE NEGATIVE (NEGATIVE); BENZODIAZEPINES SCREEN URINE NEGATIVE (NEGATIVE); CANNABINOID SCREEN, URINE NEGATIVE (NEGATIVE); COCAINE SCREEN URINE NEGATIVE (NEGATIVE); METHADONE STAT NEGATIVE (NEGATIVE); METHAMPHETAMINE SCREEN URINE S NEGATIVE (NEGATIVE); OPIATE SCREEN URINE NEGATIVE (NEGATIVE); OXYCODONE STAT POSITIVE (NEGATIVE); PROPOXYPHENE STAT NEGATIVE (NEGATIVE); TRICYCLIC ANTIDEPRESSANTS SCRE NEGATIVE (NEGATIVE)
[2019-10-01 11:56] LABS: BACTERIA,URINE TRACE /HPF; RBC,URINE RARE /HPF
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
--- NOTE | 2019-10-01 12:04 | Diagnostic Imaging Report ---
EXAM: CT of the cervical, thoracic and lumbar spine. INDICATION: Fell TECHNIQUE: Contiguous axial sections were taken through the cervical, thoracic and lumbar spine. Sagittal and coronal reconstructed images were also obtained. COMPARISON: There are no prior CT cervical, thoracic or lumbar spine examinations available for comparison. The MRI cervical spine exam of 09/19/2016 failed to show an acute abnormality. On reconstructed images of the cervical spine there is straightening of the cervical spine. This may be secondary to muscle spasm and/or positioning. There is no fracture or acute bony abnormality noted. There is moderate degenerative disease throughout the thoracic spine. The intervertebral spaces of the lumbar spine are fairly well-maintained. There is no fracture identified and there is no sign of a high-grade central stenosis. There is no paraspinal mass visualized. The lungs, where visualized, are generally clear. IMPRESSION: 1. There is no evidence for an acute bony abnormality of the cervical, thoracic or lumbar spine. 2. If clinical concern regarding an acute abnormality persists, then MRI would be recommended for further study. Dictated by: Dictated on workstation # [id number]
--- NOTE | 2019-10-01 12:31 | Diagnostic Imaging Report ---
EXAM: Pelvis and left hip at 1159 INDICATION: Fell TECHNIQUE: A single AP view of the pelvis and AP and lateral views of the left hip were obtained. FINDINGS: There is no fracture, dislocation or acute bony abnormality evident. There is a minute calcific density along the superolateral aspect of the left hip joint. This was not present on the prior exam of 12/09/2013. Even so, I suspect this finding is more likely a sequela of prior trauma than due to an acute injury. If further study is desired, then MRI would be recommended. There is moderate degenerative disease involving both hip joints. The degenerative changes seem similar to the prior exam. There is mild symmetrical sclerosis of the sacroiliac joints. The lumbar spine is generally unremarkable. The soft tissues are unremarkable for an abnormality. IMPRESSION: 1. The minute calcific density along the superolateral aspect of the left hip joint is more likely due to prior trauma than to an acute abnormality. Additional considerations as above. 2. There is no acute bony abnormality noted otherwise. Dictated by: Dictated on workstation # [id number]
[2019-10-01] MEDS ORDERED: MELO15TA14 PO (12:42)
[2019-10-01] MEDS ORDERED: METH-313 PO (12:42)
[2019-10-01] MEDS ORDERED: KETOROLAC 60 MG/2 ML VIAL IM ONE (12:45)
[2019-10-01] MEDS ORDERED: ORPHENADRINE 60 MG/2 ML (NORFLEX) AMP IM ONE (12:45)
[2019-10-01 12:58] VITALS: BP 153/86
== END 2019-10-01 13:09 | disposition home or self-care (01) ==
LOC: EDUNIT# 10:37 → ER 10:38
DX: S39.012A Strain of muscle, fascia and tendon of lower back, 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 (principal); S33.2XXA Dislocation of sacroiliac and sacrococcygeal joint, 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; M54.5 Low back pain; G89.29 Other chronic pain; M79.7 Fibromyalgia; R40.2142 Coma scale, eyes open, spontaneous, at arrival to emergency department; R40.2252 Coma scale, best verbal response, oriented, at arrival to emergency department; R40.2362 Coma scale, best motor response, obeys commands, at arrival to emergency department; F17.210 Nicotine dependence, cigarettes, uncomplicated; Z88.8 Allergy status to other drugs, medicaments and biological substances; W01.0XXA Fall on same level from slipping, tripping and stumbling without subsequent striking against object, 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; Y92.481 Parking lot as the place of occurrence of the external cause
CPT/HCPCS: 72125; 72128; 72131; 80306; 81000

== ENCOUNTER 2020-02-20 08:30 | Outpatient (CLI) | payer BC ==
[~2020-02-20] VITALS: Ht 160 cm; Wt 70.9 kg
[~2020-02-20 08:30] MED LIST changes: +MELO15TA14 PO; +METH-313 PO
[2020-02-20] MEDS ORDERED: VENL75CA93 PO (08:50)
[2020-02-20] MEDS ORDERED: VENL150C98 PO (08:50)
[2020-02-20] MEDS ORDERED: LEVO100T7 PO (08:50)
[2020-02-20] MEDS ORDERED: HYDR-3820 PO (08:50)
== END 2020-02-20 08:54 | disposition home or self-care (01) ==
LOC: PREOP 08:30
PROVIDERS: ATTEND Surgery
DX: Z01.818 Encounter for other preprocedural examination (principal)

== ENCOUNTER 2020-02-21 08:49 | Day surgery (SDC) | payer BC ==
[~2020-02-21] VITALS: Ht 160 cm; Wt 70.9 kg
[~2020-02-21 08:49] MED LIST changes: +HYDR-3820 PO; +VENL150C98 PO; +VENL75CA93 PO
[2020-02-21] MEDS ORDERED: LACTATED RINGERS 1,000 ML IV ONE (08:52)
[2020-02-21] MEDS ORDERED: LACTATED RINGERS 1,000 ML IV STA (09:04)
[2020-02-21] MEDS ORDERED: MIDAZOLAM 2 MG/2 ML (VERSED) VIAL ONE (09:22)
--- NOTE | 2020-02-21 09:28 | Progress Note-Pre Operative ---
Pre-Operative Progress Note H&P Reviewed The H&P was reviewed, patient examined and no changes noted. Date Seen by Provider: Feb 21, 2020 Time Seen by Provider: : Date H&P Reviewed: Feb 21, 2020 Time H&P Reviewed: : Pre-Operative Diagnosis: screening colonoscopy DAYANA HELLER DO Feb 21, 2020 09:28
[2020-02-21 09:30] VITALS: BP 143/100
[2020-02-21] MEDS ORDERED: PROPOFOL INJECTION 50 ML IV ONE (10:01)
--- NOTE | 2020-02-21 10:46 | Progress Note-Post Operative ---
Post-Operative Progess Note Surgeon (s)/Button Broacher (s) Surgeon DAYANA HELLER DO Button Broacher: na Pre-Operative Diagnosis screening colonoscopy Post-Operative Diagnosis sigmoid polyps Procedure & Operative Findings Date of Procedure 02/21/20 Procedure Performed/Findings colonoscopy c hot bx polypectomy x 1 Anesthesia Type per clinical evaluator Estimated Blood Loss Estimated blood loss (mL): none Specimens/Packing Specimens Removed sigmoid polyp DAYANA HELLER DO Feb 21, 2020 10:46
--- NOTE | 2020-02-21 10:49 | Discharge Inst-Simple/Standard ---
Discharge Inst-Standard Patient Instructions/Follow Up Plan of Care/Instructions/FU: 2 weeks carmen Activity as Tolerated: Yes Discharge Diet: Regular Diet DAYANA HELLER DO Feb 21, 2020 10:49
[2020-02-21 10:50] VITALS: BP 126/79
[2020-02-21 10:55] VITALS: BP 130/79
[2020-02-21 11:00] VITALS: BP 124/76
--- NOTE | 2020-02-21 11:26 | Anesthesia-General Post-Op ---
MAC Patient Condition Mental Status/LOC: Same as Preop Cardiovascular: Satisfactory Nausea/Vomiting: Absent Respiratory: Satisfactory Pain: Controlled Complications: Absent Post Op Complications Complications None Follow Up Care/Instructions Patient Instructions None needed. Anesthesiology Discharge Order Discharge Order Patient is doing well, no complaints, stable vital signs, no apparent adverse anesthesia problems. No complications reported per nursing. JOSE MANUEL GONZALES CRNA Feb 21, 2020 11:26
[2020-02-21 11:30] VITALS: BP 122/62
[2020-02-21 11:40] VITALS: BP 122/62
--- NOTE | 2020-02-21 14:09 | OPERATIVE REPORT ---
DATE OF SERVICE: 02/21/2020 PREOPERATIVE DIAGNOSIS: Screening colonoscopy. POSTOPERATIVE DIAGNOSIS: Sigmoid colon polyp. PROCEDURE: Colonoscopy with hot biopsy polypectomy x1. SURGEON: Dayana Reich DO ANESTHESIA: Per WELDER ASSEMBLER. ESTIMATED BLOOD LOSS: None. COMPLICATIONS: None. INDICATIONS: The patient is a 54-year-old female with screening colonoscopy. She understands risks and benefits of procedure and wished to proceed with procedure. Consent was signed in the chart. DESCRIPTION OF PROCEDURE: The patient was taken to the endoscopy suite, placed in left lateral recumbent position. Timeout was performed. Digital rectal exam was performed. There were no palpable polyps, masses or ulcerations. Scope was inserted in the rectum and advanced all the way to cecum with minimal difficulty. Prep was adequate. Scope was then slowly retracted back. There were no polyps, masses or ulcerations within the cecum, ascending, transverse, descending colon sigmoid colon, a very small polyp, which hot biopsy polypectomy was performed. Scope was then slowly retracted back into the rectum, where it was also retroflexed noting no other pathology. Scope was returned to its normal position, slowly withdrawn until completely removed. The patient tolerated procedure well without any complications. She was taken to recovery room in stable condition. RECOMMENDATIONS: The patient will need repeat colonoscopy in 5 years. Any issues before that be seen at that time. She will follow up in the office in two weeks to discuss pathology results. Job ID: [id number] DocumentID: [id number] Dictated Date: 02/21/2020 10:53:21 Advanced Manufacturing Engineer Date: 02/21/2020 14:08:38 Dictated By: DAYANA REICH DO
== END 2020-02-21 11:40 | disposition home or self-care (01) ==
LOC: ENDO 08:49
PROVIDERS: ATTEND Surgery
DX: Z12.11 Encounter for screening for malignant neoplasm of colon (principal); K63.5 Polyp of colon; K29.50 Unspecified chronic gastritis without bleeding; K31.7 Polyp of stomach and duodenum; K31.9 Disease of stomach and duodenum, unspecified; E78.5 Hyperlipidemia, unspecified; M19.91 Primary osteoarthritis, unspecified site; F32.9 Major depressive disorder, single episode, unspecified; F41.9 Anxiety disorder, unspecified; K21.9 Gastro-esophageal reflux disease without esophagitis; M79.7 Fibromyalgia; F17.210 Nicotine dependence, cigarettes, uncomplicated; Z79.890 Hormone replacement therapy; Z79.899 Other long term (current) drug therapy; Z99.81 Dependence on supplemental oxygen; Z88.8 Allergy status to other drugs, medicaments and biological substances
CPT/HCPCS: 88305

== ENCOUNTER 2020-10-01 18:51 | Emergency (ER) | payer OTHER, BC ==
[~2020-10-01] VITALS: Ht 160 cm; Wt 68.0 kg
[2020-10-01] MEDS ORDERED: KETOROLAC 60 MG/2 ML VIAL IM ONE (19:30)
[2020-10-01] MEDS ORDERED: ORPHENADRINE 60 MG/2 ML (NORFLEX) AMP (ED ONLY) IM ONE (19:30)
--- NOTE | 2020-10-01 20:21 | Diagnostic Imaging Report ---
INDICATION: Low back pain AP and lateral views of the lumbar spine are obtained. The lumbar vertebrae are normal in height and alignment. There is no fracture or subluxation. Disc spaces are normal in height. There are minimal osteophytes at L3 and L4. IMPRESSION: Minimal degenerative changes with no acute fracture or malalignment. Dictated by: Dictated on workstation # [id number]
[2020-10-01] MEDS ORDERED: CYCL10TA9 PO (20:33)
[2020-10-01] MEDS ORDERED: PRD20T PO (20:33)
--- NOTE | 2020-10-01 20:33 | ED Fall/Injury ---
General Chief Complaint: Trauma-Non Activation Stated Complaint: LEG/BACK PAIN Nursing Triage Note: PT REPORTS THAT SHE FELL AT [facility] AFTER SLIPPING IN WATER Source: patient Exam Limitations: no limitations History of Present Illness Date Seen by Provider: October 01, 2020 Time Seen by Provider: 19:00 Initial Comments This is a well appearing 55 yo female who presented to the ED with c/o fall after slipping on puddle of water in [facility]. States incident occurred around 1720 this evening. Reports pain in her low back and right buttock. Denies hitting head or LOC. Denies numbness, tingling, loss of sensation in groin/buttock region. Has not taken anything for pain prior to arrival. Location Injury Occurred: [facility] Allergies and Home Medications Allergies Coded Allergies: metformin (Verified Allergy, Severe, EDEMA, 05/31/19) Home Medications Cyclobenzaprine HCl 10 Mg Tablet, 10 MG PO Q8H PRN for SPASMS Prescribed by: DAMIAN ESPINOZA on 10/01/202032 Hydrocodone/Acetaminophen 1 Each Tablet, 1 TAB PO BID, (Reported) Levothyroxine Sodium 100 Mcg Tablet, 100 MCG PO DAILY, (Reported) Prednisone 20 Mg Tab, 40 MG PO DAILY Prescribed by: DMAIAN ESPINOZA on 10/01/202032 Venlafaxine HCl 75 Mg Cap.er.24h, 75 MG PO DAILY, (Reported) Venlafaxine HCl 150 Mg Cap.er.24h, 150 MG PO DAILY, (Reported) Patient Home Medication List Home Medication List Reviewed: Yes Review of Systems Review of Systems Constitutional: no symptoms reported Eyes: No Symptoms Reported Ears, Nose, Mouth, Throat: no symptoms reported Respiratory: no symptoms reported Cardiovascular: no symptoms reported Gastrointestinal: no symptoms reported Genitourinary: no symptoms reported Past Mtoxgpq-Tzjxtn-Cbhfbn Hx Patient Social History Alcohol Use: Denies Use Smoking Status: Current Everyday Smoker Type Used: Cigarettes, Electronic/Vapor Recent Infectious Disease Expo: No Recent Hopitalizations: No Immunizations Up To Date Date of Influenza Vaccine: Mar 06, 2015 Seasonal Allergies Seasonal Allergies: No Past Medical History Surgeries: Yes (BLADDER MESH SLING/REVISION OF SLING; LEFT KNEE BENIGN TUMOR REMOVAL) Adenoidectomy, Bladder Surgery, Gallbladder, Hysterectomy, Oophorectomy, Orthopedic, Tonsillectomy, Tubal Ligation Respiratory: Yes (WEARS O2 @ NIGHT) Cardiac: Yes (BRADYCARDIA @ NIGHT) Neurological: Yes Headaches /Migraines Reproductive Disorders: No Female Reproductive Disorders: Denies 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 History: Hysterectomy, Tubal Ligation Sexually Transmitted Disease: No HIV/AIDS: No Genitourinary: No Gastrointestinal: No Gastroesophageal Reflux, Chronic Constipation Musculoskeletal: Yes Degenerate Disk Disease, Fibromyalgia, Chronic Back Pain Endocrine: Yes Hypothyroidsim HEENT: No Loss of Vision: Bilateral Hearing Impairment: Denies Cancer: No Psychosocial: Yes Anxiety, Depression Integumentary: No Blood Disorders: No Adverse Reaction/Blood Tranf: No Physical Exam Vital Signs Vital Signs - First Documented 10/01/20 10/01/20 19:04 21:19 Temp 36.9 Pulse 88 Resp 18 B/P (MAP) 196/107 (136) Pulse Ox 99 O2 Delivery Room Air Capillary Refill : Less Than 3 Seconds Height, Weight, BMI Height: 5'3.00" Weight: 152lbs. 0.0oz. 68.443645ac; 26.00 BMI Method:Stated General Appearance: WD/WN, no apparent distress HEENT: PERRL/EOMI, pharynx normal Neck: full range of motion, supple, normal inspection Cardiovascular: regular rate, rhythm, no murmur Respiratory: lungs clear, normal breath sounds Gastrointestinal: normal bowel sounds, non tender, soft Back: normal inspection, vertebral tenderness (lumbar region ) Extremities: normal range of motion, non-tender, normal inspection Neurologic/Psychiatric: no motor/sensory deficits, alert, normal mood/affect, oriented x 3 Skin: normal color, warm/dry Progress/Results/Core Measures Results/Orders My Orders Orders - DAMIAN ESPINOZA APRN Orphenadrine Inj (Ed Only) (Norflex Inje (10/01/20 19:30) Ketorolac Injection (Toradol Injection) (10/01/20 19:30) Lumbar Spine - 2-3 Views (10/01/20 19:35) Medications Given in ED Vital Signs/I&O 10/01/20 10/01/20 19:04 21:19 Temp 36.9 36.5 Pulse 88 64 Resp 18 16 B/P (MAP) 196/107 (136) 176/104 Pulse Ox 99 O2 Delivery Room Air Room Air Blood Pressure Mean: 136 Progress Progress Note : Progress Note Toradol and Norflex ordered for pain. Lumbar x-ray ordered which shows no acute findings. Discussed treating conservatively and following up with her primary care provider if symptoms persist. She is agreeable with discharge plan of care. Diagnostic Imaging Diagonstic Imaging: Xray Plain Films/CT/US/NM/MRI: other (lumbar spine ) Comments NAME: JAY VIGIL [facility] REC#: [id number] PT STATUS: DEP ER : 1965 PHYSICIAN: DAMIAN ESPINOZA APRN ADMIT DATE: 10/01/20/ER Signed Date of Exam:10/01/20 LUMBAR SPINE - 2-3 VIEWS INDICATION: Low back pain AP and lateral views of the lumbar spine are obtained. The lumbar vertebrae are normal in height and alignment. There is no fracture or subluxation. Disc spaces are normal in height. There are minimal osteophytes at L3 and L4. IMPRESSION: Minimal degenerative changes with no acute fracture or malalignment. Dictated by: Dictated on workstation # [id number] Dict: 10/01/201957 Trans: 10/01/202224 [facility] [id number] Interpreted by: BLANCO RIVERO MD Electronically signed by: BLANCO RIVERO MD 10/01/202224 Reviewed: Reviewed by Me Departure Impression Primary Impression: Fall Additional Impression: Lumbago Disposition: 01 HOME, SELF-CARE Condition: Improved Departure-Patient Inst. Decision time for Depature: 20:31 Referrals: [facility] (PCP) Primary Care Physician CEDRICK BARCENAS (Family) Primary Care Physician Patient Instructions: Low Back Pain in Adults Add. Discharge Instructions: Plan: 1. Discharge home. 2. Follow up with your doctor if your pain persist despite conservative treatment. 3. Take Prednisone as directed with food. 4. May use ice/heat 20 minutes at a time 4-6x per day. 5. Use Flexeril as directed for pain. 6. Return for any new, concerning, or worsening symptoms. All discharge instructions reviewed with patient and/or family. Voiced un derstanding. Scripts Cyclobenzaprine HCl (Cyclobenzaprine HCl) 10 Mg Tablet 10 MG PO Q8H PRN for SPASMS, #15 TAB 0 Refills Prov: DAMIAN ESPINOZA APRN 10/01/20 Prednisone (Prednisone) 20 Mg Tab 40 MG PO DAILY for 5 Days, #5 TAB 0 Refills Prov: DAMIAN ESPINOZA APRN 10/01/20 DAMIAN ESPINOZA APRN October 01, 2020 20:33
[2020-10-01 21:19] VITALS: BP 176/104
== END 2020-10-01 21:14 | disposition home or self-care (01) ==
LOC: EDUNIT# 18:51 → ER 18:54
DX: M54.5 Low back pain (principal); E03.9 Hypothyroidism, unspecified; F41.9 Anxiety disorder, unspecified; F32.9 Major depressive disorder, single episode, unspecified; G89.29 Other chronic pain; M54.9 Dorsalgia, unspecified; F17.210 Nicotine dependence, cigarettes, uncomplicated; F17.290 Nicotine dependence, other tobacco product, uncomplicated; Z79.890 Hormone replacement therapy; Z88.8 Allergy status to other drugs, medicaments and biological substances; Z79.52 Long term (current) use of systemic steroids; Z79.899 Other long term (current) drug therapy; Z79.891 Long term (current) use of opiate analgesic
CPT/HCPCS: 72100

== ENCOUNTER → 2020-10-18 | Outpatient (CLI) | payer BC ==
[2020-10-18] MEDS: GADOBUTROL 7.5 MMOL/7.5 ML (GADAVIST) VIAL IV ONE (16:39)
--- NOTE | 2020-10-18 17:24 | Diagnostic Imaging Report ---
CLINICAL INDICATION: Patient fell and is having low back pain and incontinence. EXAM: MRI of the lumbar spine performed without and with 7 mL of Gadavist IV contrast. Sagittal T2, sagittal T1, sagittal T2 fat-sat, axial T1, axial T2, sagittal T1 fat-sat post IV contrast, and axial T1 post IV contrast. COMPARISON: MRI of the lumbar spine without contrast dated 09/09/2010. FINDINGS: Besides degenerative disease there is no other significant abnormal IV contrast enhancement. There is no lumbar spine mass or infiltrative process seen. There are lumbar spine degenerative spurs and facet arthropathy seen most pronounced involving the lower lumbar spine. The visualized portions of the distal thoracic spinal cord, conus medullaris, and cauda equina nerve roots are unremarkable. The conus medullaris tip is seen at the upper L1 vertebral body level. T10-T11: There is facet arthropathy involving the T10-T11 level on the right side which was not imaged on the prior study. T11-T12, T12-L1, and L1-L2: Unremarkable. L2-L3: There is progression of mild bilateral facet arthropathy. Again noted small anterior spurs. There is no significant central spinal canal or neural foramen narrowing. L3-L4: There is slight progression of mild bilateral facet arthropathy. There is development of a subtle posterior disk bulge with right paracentral predominance. There is mild left neural foramen narrowing which has progressed. There is no significant central canal or right neural foramen narrowing. L4-L5: There is moderate bilateral facet arthropathy which is slightly progressed. There is small posterior disk bulge which is slightly progressed predominantly in the right subarticular region. There is mild bilateral neural foramen narrowing. There is no significant central canal narrowing. L5-S1: There is slight increased size of the mild diffuse disk bulge with increased size of a small disk herniation in the left foraminal region. There is possible encroachment upon the non-exited left S1 nerve root. There is mild left neural foramen narrowing again seen which has minimally progressed. There is no significant central canal or right neural foramen narrowing. IMPRESSION: 1: There is multilevel lumbar spine degenerative disease which has minimally progressed involving the lower lumbar spine. 2: There is interval increased size of a small L5-S1 left subarticular disk herniation which is superimposed upon a small diffuse disk bulge. There is possible encroachment upon the non-exited left S1 nerve root. 3: The remainder of the lumbar spine degenerative disease is described above. Dictated by: Dictated on workstation # [id number]
== END ==
LOC: RAD 15:39
PROVIDERS: ATTEND Internal Medicine
DX: M47.26 Other spondylosis with radiculopathy, lumbar region (principal); M47.814 Spondylosis without myelopathy or radiculopathy, thoracic region; M51.16 Intervertebral disc disorders with radiculopathy, lumbar region; M51.27 Other intervertebral disc displacement, lumbosacral region; M48.061 Spinal stenosis, lumbar region without neurogenic claudication; M48.07 Spinal stenosis, lumbosacral region; M25.78 Osteophyte, vertebrae
CPT/HCPCS: 72158

== ENCOUNTER → 2020-11-06 | Outpatient (CLI) | payer BC ==
--- NOTE | 2020-11-06 21:11 | Diagnostic Imaging Report ---
Left breast ultrasound, limited INDICATION: Left breast pain By history, the patient has pain in the left breast. The ultrasound examination of the left breast however fails to show any discrete solid or cystic mass. There is no evidence for an abscess either. According to our records, the patient has not had a mammogram since 2017. Therefore, I would recommend that the patient have a bilateral diagnostic mammogram for further evaluation of the pain in the left breast. IMPRESSION: There is no evidence of an acute abnormality or for malignancy. A diagnostic mammogram would be recommended for further evaluation. ACR category 0. ACR BI-RADS Category 0: Incomplete. (Needs additional imaging evaluation). Result letter will be mailed to the patient. Note: At least 10% of breast cancer is not imaged by mammography. Dictated by: Dictated on workstation # [id number]
--- NOTE | 2020-11-06 21:34 | Diagnostic Imaging Report ---
Bilateral diagnostic mammogram INDICATION: Left breast pain This study was compared to the prior exams of 10/14/2016 and 01/25/2014. At this time the patient does complain of pain in the left breast. The ultrasound exam performed prior to this study failed to show any discrete solid or cystic mass in the region of the patient's pain in the lateral aspect of the left breast. For this exam, a marker was placed over the area of concern. There is no underlying abnormality in this area that would account for the patient's pain. Clinical follow-up is recommended. The overall appearance of the breasts has not changed significantly since the prior study. There are a few small benign-appearing nodular densities in both breasts. There is also a group of benign-appearing calcifications in the 12 o'clock position of the left breast just anterior to the pectoralis muscle. These seem stable when compared to the 2017 exam. There is no primary or secondary sign of malignancy noted. IMPRESSION: 1. There is no acute abnormality involving the left breast to account for the patient's pain. Clinical follow-up is recommended. 2. There is no evidence of malignancy. 3. The patient should have her annual bilateral screening mammogram on schedule in October of 2021. ACR BI-RADS Category 1: Negative. Result letter will be mailed to the patient. Note: At least 10% of breast cancer is not imaged by mammography. Dictated by: Dictated on workstation # [id number]
== END ==
LOC: RAD 13:07
PROVIDERS: ATTEND Obstetrics & Gynecology
DX: N64.4 Mastodynia (principal)
CPT/HCPCS: 76642; 77066; G0279; 77062

== ENCOUNTER → 2021-04-01 | Outpatient (CLI) | payer BC | LOC: LABNPT 06:13 | PROVIDERS: ATTEND Orthopaedic Surgery | DX: Z01.812 Encounter for preprocedural laboratory examination (principal); Z53.9 Procedure and treatment not carried out, unspecified reason ==

== ENCOUNTER 2021-09-19 21:32 | Emergency (ER) | payer BC ==
[~2021-09-19 21:32] MED LIST changes: +CYCL10TA25 PO; -CYCL10TA9 PO
--- NOTE | 2021-09-19 22:15 | ED Lower Extremity ---
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 Patient states there was no associated bleeding though there is 1mm chronic skin lesion overlaying the L 3rd metatarsal which she denies being associated with today's visit. She was able to ambulate afterwards, took 600mg Ibuprofin and 10mg Hydrocodone (perscribed for chronic back pain) 3 hours ago and presents now for persistent constant throbbing pain and mild swelling, worse with ambulation and palpation. Denies falls or any other complaints. (VINCE PENNY MED STUDENT) Allergies and Home Medications Allergies Coded Allergies: metformin (Verified Allergy, Severe, EDEMA, 05/31/19) Patient Home Medication List Home Medication List Reviewed: Yes (KENY VALENTINO) Cyclobenzaprine HCl (Cyclobenzaprine HCl) 10 Mg Tablet, 10 MG PO Q8H PRN for SPASMS Prescribed by: DAMIAN ESPINOZA on 10/01/202032 Hydrocodone/Acetaminophen (Hydrocodone-Acetamin 10-325 mg) 1 Each Tablet, 1 TAB PO BID, (Reported) Entered as Reported by: KINGS MARES on 02/20/20 0850 Levothyroxine Sodium (Levothyroxine Sodium) 100 Mcg Tablet, 100 MCG PO DAILY, (Reported) Entered as Reported by: KINGS MARES on 02/20/20 0850 Prednisone (Prednisone) 20 Mg Tab, 40 MG PO DAILY Prescribed by: DAMIAN ESPINOZA on 10/01/202032 Venlafaxine HCl (Venlafaxine HCl ER) 75 Mg Cap.er.24h, 75 MG PO DAILY, (Reported) Entered as Reported by: KINGS MARES on 02/20/20 0850 Venlafaxine HCl (Venlafaxine HCl ER) 150 Mg Cap.er.24h, 150 MG PO DAILY, (Reported) Entered as Reported by: KINGS MARES on 02/20/20 0850 Review of Systems Constitutional: No fever, No weakness Cardiovascular: No chest pain, No palpitations Musculoskeletal: other (L medial foot pain) Skin: lesions (small chronic pinpoint lesion on dorsal L foot overlaying 3rd metatarsal) Psychiatric/Neurological: Denies Paresthesia, Denies Tingling, Denies Weakness (VINCE PENNY) Past Wcnqnpd-Mtkapk-Mslcul Hx Patient Social History Tobacco Use?: Yes Tobacco type used: Cigarettes Smoking Status: Current Everyday Smoker Substance use?: No Alcohol Use?: No (VINCE PENNY) Tobacco Use?: No Use of E-Cig and/or Vaping dev: No (KENY VALENTINO) Immunizations Up To Date Influenza Vaccine Up-to-Date: No; Not Current (VINCE PENNY) Seasonal Allergies Seasonal Allergies: No (VINCE PENNY) Past Medical History Surgeries: Yes (BLADDER MESH SLING/REVISION OF SLING; LEFT KNEE BENIGN TUMOR REMOVAL) Adenoidectomy, Bladder Surgery, Gallbladder, Hysterectomy, Oophorectomy, Orthopedic, Tonsillectomy, Tubal Ligation Respiratory: Yes (WEARS O2 @ NIGHT) Cardiac: Yes (BRADYCARDIA @ NIGHT) Neurological: Yes Headaches /Migraines Reproductive Disorders: No Female Reproductive Disorders: Denies 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: Hysterectomy, Tubal Ligation Sexually Transmitted Disease: No HIV/AIDS: No Genitourinary: No Gastrointestinal: No Gastroesophageal Reflux, Chronic Constipation Musculoskeletal: Yes Degenerate Disk Disease, Fibromyalgia, Chronic Back Pain Endocrine: Yes Hypothyroidsim HEENT: No Loss of Vision: Bilateral Hearing Impairment: Denies Cancer: No Psychosocial: Yes Anxiety, Depression Integumentary: No Blood Disorders: No Adverse Reaction/Blood Tranf: No (VINCE PENNY) Physical Exam Vital Signs Vital Signs - First Documented 09/19/21 21:47 Temp 37.0 Pulse 78 Resp 16 B/P (MAP) 138/83 (101) Pulse Ox 98 O2 Delivery Room Air (KENY VALENTINO) Vital Signs Capillary Refill : Less Than 3 Seconds (VINCE PENNY) Height, Weight, BMI Height: 5'3.00" Weight: 152lbs. 0.0oz. 68.002576cs; 26.00 BMI Method:Stated General Appearance: WD/WN, mild distress Cardiovascular: normal peripheral pulses, regular rate, rhythm Respiratory: no respiratory distress, no accessory muscle use Hips: bilateral hip non-tender, bilateral hip normal range of motion Knees: bilateral knee non-tender, bilateral knee normal inspection, bilateral knee normal range of motion Ankles: bilateral ankle non-tender, bilateral ankle normal inspection, bilateral ankle normal range of motion Feet: right foot non-tender, right foot normal inspection, right foot normal range of motion, right foot no evidence of injury; left foot pain, left foot soft tissue tenderness Neurologic/Tendon: normal sensation, normal motor functions Neurologic/Psychiatric: alert, normal mood/affect Skin: normal color, warm/dry (VINCE PENNY MED STUDENT) Progress/Results/Core Measures Results/Orders My Orders Orders - KENY VALENTINO Foot, Left, 3 Views (09/19/21 22:07) (KENY VALENTINO) Vital Signs/I&O 09/19/21 21:47 Temp 37.0 Pulse 78 Resp 16 B/P (MAP) 138/83 (101) Pulse Ox 98 O2 Delivery Room Air (KENY VALENTINO) Blood Pressure Mean: 101 Progress Progress Note : Time: 22:47 Progress Note I attest that I saw this patient alongside the medical student and agree with his documented history, physical exam and review of systems except as otherwise noted. Ice pack and x-ray of the foot. (KENY VALENTINO) Diagnostic Imaging Diagonstic Imaging: Xray Plain Films/CT/US/NM/MRI: other (Left foot) Comments [facility] [place] NAME: JAY VIGIL [facility] REC#: [id number] PT STATUS: REG ER : 1965 PHYSICIAN: KENY VALENTINO MD ADMIT DATE: 09/19/21/ER Draft Date of Exam:09/19/21 FOOT, LEFT, 3 VIEWS INDICATION: Pain. EXAMINATION: Three views were obtained. FINDINGS: The alignment is normal. There is no fracture or dislocation. There are mild degenerative changes. Soft tissues are unremarkable. IMPRESSION: Mild degenerative changes of the left foot however no acute fracture or dislocation. Dictated on workstation # [id number] Dict: 09/19/218 Trans: 09/19/212239 [facility] [phone] Interpreted by: CANDIS HOLLY MD Electronically signed by: Reviewed: Reviewed by Me (KENY VALENTINO) Departure Impression Primary Impression: Contusion of left foot, 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 Disposition: HOME, SELF-CARE Condition: Stable Departure-Patient Inst. Decision time for Depature: 22:48 (KENY VALENTINO) Referrals: [facility]/ (PCP) Primary Care Physician CEDRICK BARCENAS (Family) Primary Care Physician Patient Instructions: Minor Contusion ED Add. Discharge Instructions: Ice pack 20 minutes on every 2 hours while awake for the first 2 days. You can wrap your foot and elevate it at night to help with the pain. Tylenol 1000 mg every 8 hours as needed for pain. Ibuprofen 800 mg every 8 hours as needed for pain. All discharge instructions reviewed with patient and/or family. Voiced understanding. Work/School Note: Work Release Form Date Seen in the Emergency Department: Sep 19, 2021 Return to Work: Sep 20, 2021 Restrictions: No Restrictions Other Restrictions Listed Below: Weightbearing as tolerated. Restrictions: Elevate left foot as needed for swelling and pain while at res t until 09/23. VINCE PENNY MED STUDENT Sep 19, 2021 22:15 KENY VALENTINO Sep 19, 2021 22:49
--- NOTE | 2021-09-19 22:41 | Diagnostic Imaging Report ---
INDICATION: Pain. EXAMINATION: Three views were obtained. FINDINGS: The alignment is normal. There is no fracture or dislocation. There are mild degenerative changes. Soft tissues are unremarkable. IMPRESSION: Mild degenerative changes of the left foot however no acute fracture or dislocation. Dictated by: Dictated on workstation # [id number]
[2021-09-19 22:55] VITALS: BP 138/83
== END 2021-09-19 22:55 | disposition home or self-care (01) ==
LOC: EDUNIT# 21:32 → ER 21:35
DX: S90.32XA Contusion of left foot, 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 (principal); W20.8XXA Other cause of strike by thrown, projected or falling object, 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
CPT/HCPCS: 73630

== ENCOUNTER 2021-12-26 15:44 | Outpatient (RCR) | payer BC | END 2021-12-29 | disposition home or self-care (01) | PROVIDERS: ATTEND Orthopaedic Surgery Orthopaedic Trauma | DX: M47.27 Other spondylosis with radiculopathy, lumbosacral region (principal); E11.9 Type 2 diabetes mellitus without complications | CPT/HCPCS: 97163; G0283 ==

== ENCOUNTER 2022-01-23 14:43 | Outpatient (RCR) | payer BC | END 2022-01-29 | disposition home or self-care (01) | PROVIDERS: ATTEND Orthopaedic Surgery Orthopaedic Trauma | DX: M47.27 Other spondylosis with radiculopathy, lumbosacral region (principal); E11.9 Type 2 diabetes mellitus without complications | CPT/HCPCS: 97110; 97140; G0283 ==

== ENCOUNTER → 2022-02-28 | Outpatient (CLI) | payer BC ==
--- NOTE | 2022-02-28 15:52 | Diagnostic Imaging Report ---
PROCEDURE: MRI lumbar spine. TECHNIQUE: Multiplanar, multisequence MRI of the lumbar spine was performed without contrast. DATE: February 28, 2022. COMPARISON: MRI lumbar spine October 18, 2020. INDICATION: 56-year-old female, fall one year ago. Low back pain. FINDINGS: There is normal lumbosacral spine alignment. The bone marrow signal is unremarkable. The visualized cord and conus medullaris is unremarkable and terminates at the L1 level. There is very mild disc height loss at L5-S1. L1-L2: There is no disc bulge. The facet joints and ligamentum flavum are unremarkable. There is no foraminal narrowing. There is no spinal canal stenosis. L2-L3: There is no disc bulge. The facet joints and ligamentum flavum are unremarkable. There is no foraminal narrowing. There is no spinal canal stenosis. L3-L4: There is no disc bulge. The facet joints and ligamentum flavum are unremarkable. There is no foraminal narrowing. There is no spinal canal stenosis. L4-L5: There is no disc bulge. There are bilateral facet degenerative changes without ligamentum flavum hypertrophy. There is mild right and [id number] left foraminal narrowing. There is no spinal canal stenosis. L5-S1: There is mild diffuse disc bulge. There are mild bilateral facet degenerative changes. There is mild left foraminal narrowing. There is no spinal canal stenosis. IMPRESSION: 1. Disc and facet degenerative changes at L4-L5 and L5-S1, as described above. There is mild to moderate left foraminal narrowing and mild right foraminal narrowing at L4-L5 and mild left foraminal narrowing at L5-S1. 2. No focal concerning bone lesion, compression deformity or fracture. Dictated by: Dictated on workstation # [id number]
== END ==
LOC: RAD 14:00
PROVIDERS: ATTEND Internal Medicine
DX: M51.17 Intervertebral disc disorders with radiculopathy, lumbosacral region (principal); M47.27 Other spondylosis with radiculopathy, lumbosacral region; M48.07 Spinal stenosis, lumbosacral region
CPT/HCPCS: 72148

== ENCOUNTER 2023-01-11 19:14 | Emergency (ER) | payer BC ==
[~2023-01-11] VITALS: Ht 160 cm; Wt 63.0 kg
[2023-01-11 19:45] VITALS: BP 150/90
--- NOTE | 2023-01-11 20:10 | ED Upper Extremity ---
General Chief Complaint: Laceration Stated Complaint: RIGHT HAND LAC Source: patient Exam Limitations: no limitations History of Present Illness Date Seen by Provider: Jan 11, 2023 Time Seen by Provider: 20:08 Initial Comments Patient is a 57-year-old female presents ED with laceration to her right palmar hand. This occurred around 7:00. She states she was cleaning out the wax on a sentsy when she stuck the steak knife into her thumb. This resulted in a 1 s imilar laceration. She reports mild bleeding. Normal range of motion of the thumb but report swelling. Not up-to-date on her tetanus. Denies any distal numbness and tingling. 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 Allergies and Home Medications Allergies Coded Allergies: metformin (Verified Allergy, Severe, EDEMA, 05/31/19) Patient Home Medication List Home Medication List Reviewed: Yes Cyclobenzaprine HCl (Cyclobenzaprine HCl) 10 Mg Tablet, 10 MG PO Q8H PRN for SPASMS Prescribed by: DAMIAN ESPINOZA on 10/01/202032 Hydrocodone/Acetaminophen (Hydrocodone-Acetamin 10-325 mg) 1 Each Tablet, 1 TAB PO BID, (Reported) Entered as Reported by: KINGS MARES on 02/20/20 0850 Levothyroxine Sodium (Levothyroxine Sodium) 100 Mcg Tablet, 100 MCG PO DAILY, (Reported) Entered as Reported by: KINGS MARES on 02/20/20 0850 Prednisone (Prednisone) 20 Mg Tab, 40 MG PO DAILY Prescribed by: DAMIAN ESPINOZA on 10/01/202032 Venlafaxine HCl (Venlafaxine HCl ER) 75 Mg Cap.er.24h, 75 MG PO DAILY, (Reported ) Entered as Reported by: KINGS MARES on 02/20/20 0850 Venlafaxine HCl (Venlafaxine HCl ER) 150 Mg Cap.er.24h, 150 MG PO DAILY, (Reported) Entered as Reported by: KINGS MARES on 02/20/20 0850 Review of Systems Constitutional: No chills, No diaphoresis, No malaise, No weakness EENTM: No ear pain, No blurred vision, No double vision Respiratory: No cough, No dyspnea on exertion Cardiovascular: No chest pain Gastrointestinal: No abdominal pain, No nausea, No vomiting Genitourinary: No decreased output, No discharge Musculoskeletal: No back pain; joint pain, muscle pain Skin: change in color All Other Systems Reviewed Negative Unless Noted: Yes Past [id number] Hx Seasonal Allergies Seasonal Allergies: No Past Medical History Surgeries: Yes (BLADDER MESH SLING/REVISION OF SLING; LEFT KNEE BENIGN TUMOR REMOVAL) Adenoidectomy, Bladder Surgery, Gallbladder, Hysterectomy, Oophorectomy, Orthopedic, Tonsillectomy, Tubal Ligation Respiratory: Yes (WEARS O2 @ NIGHT) Cardiac: Yes (BRADYCARDIA @ NIGHT) Neurological: Yes Headaches /Migraines Reproductive Disorders: No Female Reproductive Disorders: Denies [employer] AUTOM[employer]BILE History: Hysterectomy, Tubal Ligation Sexually Transmitted Disease: No HIV/AIDS: No Genitourinary: No Gastrointestinal: No Gastroesophageal Reflux, Chronic Constipation Musculoskeletal: Yes Degenerate Disk Disease, Fibromyalgia, Chronic Back Pain Endocrine: Yes Hypothyroidsim HEENT: No Loss of Vision: Bilateral Hearing Impairment: Denies Cancer: No Psychosocial: Yes Anxiety, Depression Integumentary: No Blood Disorders: No Adverse Reaction/Blood Tranf: No Physical Exam Vital Signs Vital Signs - First Documented 01/11/23 19:45 Temp 36.8 Pulse 52 Resp 14 B/P (MAP) 150/90 (110) Pulse Ox 99 O2 Delivery Room Air Capillary Refill : Height, Weight, BMI Height: 5'3.00" Weight: 152lbs. 0.0oz. 68.037764kw; 26.00 BMI Method:Stated General Appearance: WD/WN, no apparent distress HEENT: PERRL/EOMI, normal ENT inspection, TMs normal, pharynx normal Neck: non-tender, full range of motion, supple Cardiovascular: regular rate, rhythm, no edema, no gallop, no JVD Respiratory: chest non-tender, lungs clear, normal breath sounds, no respiratory distress, no accessory muscle use Gastrointestinal: normal bowel sounds, non tender, soft, no organomegaly Back: normal inspection, no CVA tenderness, no vertebral tenderness Shoulder: normal inspection, non-tender, no evidence of injury Elbow/Forearm: normal inspection, non-tender Wrist: Yes normal inspection, Yes non-tender Hand: normal ROM (Left thumb.), laceration (1 cm laceration to left palmar thumb) Neurologic/Tendon: no evidence tendon injury 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, no motor/sensory deficits, alert, normal mood/affect, oriented x 3 Skin: other (1 cm laceration left meadows thumb) Procedures/Interventions Wound Location: Upper Extremities Other Wound Location right hand Wound Length (cm): 1 Wound's Depth, Shape: superficial Wound Explored: clean Irrigated w/ Saline (ccs): 200 Betadine Prep?: Yes Anesthesia: 1% Lidocaine Volume Anesthetic (ccs): 2 Suture: Ethlion Suture Size: 5-0 Number of Sutures: 3 Layer Closure?: 1 Progress/Results/Core Measures Results/Orders My Orders Orders - JUAN CARLOS HOOD Hand, Right, 3 Views (01/11/23 20:07) Dipht/Pertuss(Acell)/Tet Adult (Dipht/Pe (01/11/23 20:15) Vital Signs/I&O 01/11/23 19:45 Temp 36.8 Pulse 52 Resp 14 B/P (MAP) 150/90 (110) Pulse Ox 99 O2 Delivery Room Air Departure Communication (PCP) Patient has a 3 cm laceration to the right dorsum palmar hand. 3 5-0 sutures were placed here in the ED. Neurovascular intact of the hand. No obvious tendon or muscular involvement. X-ray was ordered which was negative for fracture. Topical Neosporin twice a day. Remove sutures in 10 days. Recommend following up with PCP in 2 to 3 days for reevaluation. Updated patient's tetanus. If increased redness or swelling to return back to ED. Impression Primary Impression: Hand laceration Disposition: 01 HOME, SELF-CARE Condition: Stable Departure-Patient Inst. Decision time for Depature: 20:30 Referrals: HONORIO ARCEO MD (PCP/Family) Primary Care Physician Patient Instructions: Laceration Repair With Stitches ED Add. Discharge Instructions: Remove stitches in 10 days. Recommend gauze and Tate wrap for support. Neosporin topical twice a day. If increased redness or swelling to return back to ED. All discharge instructions reviewed with patient and/or family. Voiced understanding. Work/School Note: Work Release Form Date Seen in the Emergency Department: Jan 11, 2023 Return to Work: Jan 13, 2023 JUAN CARLOS HOOD Jan 11, 2023 20:10
[2023-01-11] MEDS ORDERED: Tetanus/Diphtheria/Pertussis (Acell) ADULT Vaccine 0.5 ML IM ONE (20:15)
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
== END 2023-01-11 21:06 | disposition home or self-care (01) ==
LOC: EDUNIT# 19:14 → ER 19:16
DX: S61.411A Laceration without foreign body of right hand, 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 (principal); S61.012A Laceration without foreign body of left thumb without damage to nail, 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; Z99.81 Dependence on supplemental oxygen; W26.0XXA Contact with knife, 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
CPT/HCPCS: 12001; 73130; 90715

== ENCOUNTER 2023-01-20 12:09 | Emergency (ER) | payer BC ==
[2023-01-20 12:38] VITALS: BP 138/84
== END 2023-01-20 12:38 | disposition home or self-care (01) ==
LOC: EDUNIT# 12:09 → ER 12:11
DX: Z48.02 Encounter for removal of sutures (principal)